=== PATIENT | female | born 1955 | race Caucasian/White ===

== ENCOUNTER → 2017-10-09 15:00 | Outpatient (CLI) | payer MEDICARE, SELFPAY | PROVIDERS: Family Provider Family Medicine; PCP Family Medicine; Visit Provider Family Medicine | DX: R44.3 Hallucinations, unspecified (principal) | CPT/HCPCS: 87086; 87088 ==

== ENCOUNTER → 2017-10-17 13:30 | Outpatient (CLI) | payer MEDICARE, SELFPAY ==
[2017-10-17 15:44] LABS: Absolute Lymphocyte Count 2.21 X10^3/ul (0.83-4.51); Absolute Neutrophil Count 3.6 X10^3/uL (2.0-7.7); Basophil# 0.04 X10^3/uL; Basophil% 0.6 % (0-1); Eosinophil# 0.08 X10^3/uL; Eosinophils% 1.3 % (0-5); Hematocrit 46.1 % (37-47); Hemoglobin 14.7 g/dl (12.0-15.0); Lymphocyte # 2.21 X10^3/ul (4.0); Lymphocyte % 35.2 % (19-41); Mean Corp Hgb Conc 31.9 g/gl (32-36); Mean Corpuscular Hgb 27.5 pg (27.0-32.0); Mean Corpuscular Volume 86.3 fL (81-99); Mean Platelet Vol. 9.9 fl (6.2-12.0); Monocyte# 0.34 X10^3/uL; Monocyte% 5.4 % (0-10); Neutrophil # 3.59 X10^3/uL (2.7-7.7); Neutrophil % 57.2 % (47-70); Platelet Count 170 K/mm3 (150-450); RBC Distribution Width CV 14.2 % (11.6-14.6); RBC Distribution Width SD 44.9 fl (35.1-43.9); Red Blood Count 5.34 M/mm3 (4.2-5.4); White Blood Count 6.3 K/mm3 (4.4-11.0)
[2017-10-17 15:48] LABS: POSITIVE COUNT NO; POSITIVE DIFFERENTIAL NO; POSITIVE MORPHOLOGY NO
[2017-10-17 16:11] LABS: ALB/GLOB Ratio 0.7 RATIO (0.9-2.4); AST(SGOT) 31 U/L (15-37); Alanine Aminotransfer ALT/SGPT 38 U/L (13-56); Albumin, Serum 3.4 g/dL (3.2-5.0); Alkaline Phosphatase 145 U/L (45-117); Anion Gap 8 (5-15); BUN 12 mg/dL (7-18); BUN/Creat Ratio 14.5 RATIO (10-20); Calcium,Total 9.8 mg/dL (8.5-10.1); Chloride 105 mmol/L (98-107); Creatinine, Serum 0.83 mg/dL (0.55-1.02); EST Glomerular Filtration Rate 74 mL/min (>60); Est Glom Filt Rate - Afr Amer 90 mL/min (>60); Globulin 4.7 g/dL (2.2-4.2); Glucose 210 mg/dL (74-106); Magnesium 1.9 mg/dL (1.6-2.6); Potassium 4.6 mmol/L (3.5-5.1); Protein, Total 8.1 g/dL (6.4-8.2); Sodium Level 138 mmol/L (136-145); T4 Free Direct 1.12 ng/dL (0.76-1.46); Thyroid Stim Hormone (TSH) 0.65 uIU/mL (0.358-3.74)
== END ==
PROVIDERS: Family Provider Family Medicine; PCP Family Medicine; Visit Provider Family Medicine
DX: R44.0 Auditory hallucinations (principal); I10 Essential (primary) hypertension; I48.91 Unspecified atrial fibrillation
CPT/HCPCS: 36415; 80053; 83735; 84439; 84443; 85025

== ENCOUNTER → 2018-04-24 14:35 | Outpatient (CLI) | payer MEDICARE, SELFPAY ==
--- NOTE | 2018-04-24 14:30 | RAD_ITS ---
STUDY: X-RAY - FACIAL BONES REASON FOR STUDY: Female, 62 years old. Fall TECHNIQUE: 3 view(s) of the facial bones. COMPARISON: None. FINDINGS: Normal bilateral frontozygomatic and zygomatic-temporal arches. Normal bilateral medial and inferior orbital knox. Normal bilateral orbits. Normal visualized nasal bones. Normal anterior nasal spine. The remaining visualized osseous structures are normal. Normal visualized paranasal sinuses. RAD/Facial Bones min 3 Views IMPRESSION: Normal x-ray examination of the facial bones. Electronically Signed: River Sena MD at 6:59 EDT , Service support ,
== END ==
PROVIDERS: Family Provider Family Medicine; PCP Family Medicine; Referring Provider Family Medicine; Visit Provider Family Medicine
DX: S09.90XA Unspecified injury of head, initial encounter (principal); R51 Headache
CPT/HCPCS: 70150

== ENCOUNTER → 2018-12-30 | Outpatient (CLI) | payer MEDICARE, SELFPAY ==
--- NOTE | 2018-12-30 11:19 | CT_ITS ---
STUDY: CT ABDOMEN AND PELVIS WITHOUT CONTRAST REASON FOR EXAM: Female, 63 years old. Hernia RADIATION DOSAGE (If Supplied By Facility): CTDIvol = ( 24.18 ) mGy, DLP = ( 3878.09 ) mGycm TECHNIQUE: Transaxial images were obtained from the dome of the diaphragm to the symphysis pubis with oral contrast, and without intravenous contrast. Sagittal and coronal images were reconstructed. Individualized dose optimization techniques were used for this CT. COMPARISON: 12/31/2015 FINDINGS: The visualized lung bases are unremarkable. The visualized portions of the heart are within normal limits. Normal liver. Normal gallbladder and extrahepatic biliary system. Normal spleen. Normal pancreas. Normal bilateral adrenal glands. 3.5 cm exophytic cyst lower pole right kidney. Normal left kidney. Normal visualized stomach. Normal small intestine. Suture line in the sigmoid colon. The appendix is visualized and appears normal. Normal abdominal aorta. Normal inferior vena cava. Normal retroperitoneum. Normal urinary bladder. 7 cm hernia of the right side of the anterior abdominal wall through the right rectus abdominis muscle containing loops of small bowel but without bowel dilatation to suggest bowel obstruction. Another 4 cm hernia of the midline in the anterior abdominal wall inferior to the umbilicus containing a loop of small bowel but without bowel obstruction. Normal osseous structures. CT/Abdomen/Pelvis without Cont IMPRESSION: 2 separate hernias of the anterior abdominal wall containing small bowel but without bowel obstruction. Electronically Signed: Chet Pastrana MD at 14:40 EDT Tel , Service support ,
== END | disposition home or self-care (01) ==
PROVIDERS: Family Provider Family Medicine; PCP Family Medicine
DX: K43.9 Ventral hernia without obstruction or gangrene (principal)
CPT/HCPCS: 74176

== ENCOUNTER → 2019-08-06 14:20 | Outpatient (CLI) | payer MEDICARE, SELFPAY ==
[2017-07-22 04:10] VITALS: BMI 39.4
[2019-08-06 15:39] LABS: Absolute Lymphocyte Count 1.61 X10^3/uL (0.83-4.51); Basophil# 0.05 X10^3/uL; Basophil% 0.8 % (0-1); Eosinophils% 1.6 % (0-5); Hematocrit 45.3 % (37-47); Hemoglobin 14.4 g/dL (12.0-15.0); Lymphocyte # 1.61 X10^3/ul (4.0); Lymphocyte % 25.9 % (19-41); Mean Corp Hgb Conc 31.8 g/dL (32-36); Mean Corpuscular Hgb 26.4 pg (27.0-32.0); Mean Corpuscular Volume 83.1 fL (81-99); Monocyte# 0.43 X10^3/uL; Monocyte% 6.9 % (0-10); NRBC Flagged by Analyzer 0 % (0-5); Neutrophil # 3.99 X10^3/uL (2.7-7.7); Neutrophil % 64.3 % (47-70); Platelet Count 182 K/mm3 (150-450); RBC Distribution Width CV 14.7 % (11.6-14.6); RBC Distribution Width SD 44.5 fl (35.1-43.9); Red Blood Count 5.45 M/mm3 (4.2-5.4); White Blood Count 6.2 K/mm3 (4.4-11.0)
[2019-08-06 17:07] LABS: ALB/GLOB Ratio 0.8 RATIO (0.9-2.4); AST(SGOT) 20 U/L (15-37); Alanine Aminotransfer ALT/SGPT 38 U/L (13-56); Albumin, Serum 3.3 g/dL (3.2-5.0); Alkaline Phosphatase 128 U/L (45-117); Anion Gap 7 (5-15); BUN 11 mg/dL (7-18); Calcium,Total 10.4 mg/dL (8.5-10.1); Chloride 105 mmol/L (98-107); Creatinine, Serum 0.85 mg/dL (0.55-1.02); EST Glomerular Filtration Rate 72 mL/min (>60); Est Glom Filt Rate - Afr Amer 87 mL/min (>60); Globulin 4.4 g/dL (2.2-4.2); Glucose 336 mg/dL (74-106); Potassium 4.4 mmol/L (3.5-5.1); Protein, Total 7.7 g/dL (6.4-8.2); Sodium Level 137 mmol/L (136-145); T4 Free Direct 1.22 ng/dL (0.76-1.46); Thyroid Stim Hormone (TSH) 0.67 uIU/mL (0.358-3.74)
== END ==
PROVIDERS: Family Provider Family Medicine; PCP Family Medicine; Visit Provider Family Medicine
DX: I10 Essential (primary) hypertension (principal); E11.65 Type 2 diabetes mellitus with hyperglycemia
CPT/HCPCS: 36415; 80053; 84439; 84443; 85025

== ENCOUNTER 2020-06-06 17:36 | Emergency (ER) | payer MEDICARE, SELFPAY ==
[2020-06-06 17:39] VITALS: BP 137/73; PULSE 94; RESP 18; TEMP 36.6; O2SAT 98; BMI 39.1
[2020-06-06 17:42] VITALS: BP 137/73; PULSE 94; RESP 18; TEMP 36.6; O2SAT 98
--- NOTE | 2020-06-06 17:54 | ED.DCSUM_ITS ---
History of Present Illness Chief Complaint: General Illness Informant: Patient Onset: Days Context: Sudden Onset Timing: Continuous Quality: Nasal symptoms, sore throat and cough Location: Upper respiratory Current Severity: Mild Maximum Severity: Moderate Worsened by: Activity Relieved by: Nothing Associated Symptoms: Loss of taste and smell today Narrative: Patient 64-year-old woman with multiple medical problems who presents with upper respiratory symptoms started this past Sunday. She presents because she aches all over. She states she lost her taste and smell today. She does report intermittent global headache. Denies photophobia, neck pain or neck stiffness. She does report rhinorrhea, congestion postnasal drainage. Denies sore throat. She denies ear pain, decreased hearing or ears. She denies chest pain. She denies abdominal pain, nausea, vomiting diarrhea. She denies dysuria, frequency, urgency or hematuria. She denies rash. She denies paresthesia, anesthesia motors. Denies problems with her balance. Is not a good informant. Prior similar symptoms: No Recent Illness/Hospitalization: No - Past Medical History (1) Obstructive sleep apnea Status: Acute (2) Atrial fibrillation Status: Chronic Comment: started eliquis 10/23 (3) Diabetes mellitus Status: Chronic (4) Embolic stroke Status: Chronic (5) GERD (gastroesophageal reflux disease) Status: Chronic (6) Hyperlipidemia Status: Chronic (7) Hypertension Status: Chronic (8) Intraventricular hemorrhage Status: Chronic (9) Obesity (BMI 30-39.9) Status: Chronic Past Medical History - Allergies and Home Meds Allergies/Adverse Reactions: Allergies iodine Allergy (Mild, Verified 07/22/17 04:09) Itching Penicillins Allergy (Mild, Verified 07/22/17 04:09) Itching Primary Care Physician: Nathaniel Gaines MD [Primary Care Provider] - Prior records reviewed: Yes Surgical History: - - Radical excision and drainage necrotizing soft tissue infection abscess abdominal wall including left external oblique muscle and fascia (1075 cm2) 10/30/14, I+D wounds/Debridement non-healing wounds. Lives: Alone Smoking Status: Never smoker Alcohol: None Drugs: None - Family History Maternal Family History: Reports: No pertinent history, - - Unknown if this had a stroke Paternal Family History: Reports: No pertinent history, - - Unknown if had a stroke Review of Systems General: Reports: Malaise. Denies: Chills, Fever, Subjective, Sweats Eyes: Denies: Visual changes - bilaterally, Blurred Vision - bilaterally ENT: Reports: Rhinorrhea. Denies: Bilateral ear pain, Sore throat Cardiovascular: Denies: Chest pain, Palpitations, Heart racing Respiratory: Reports: Dyspnea, Cough, Dyspnea on exertion. Denies: Sputum, Orthopnea Gastrointestinal: Denies: Abdominal pain, Nausea, Vomiting, Diarrhea, Melena, Hematochezia Genitourinary: Denies: Dysuria, Hematuria, Frequency Musculoskeletal: Reports: Myalgias, Arthralgias. Denies: Neck pain, Back pain, Swelling, Extremity Pain Skin: Denies: Rash, Wounds Neurological: Reports: Headache, Weakness. Denies: Parasthesia, Numbness Endocrine: Denies: Polyuria, Polydipsia Hematologic: Denies: Easy bruising Physical Exam Vital Signs/Narrative: Vital Signs Temp Pulse Resp BP Pulse Ox 06/06/20 17:42 97.9 F 94 18 137/73 H 98 06/06/20 17:39 97.9 F 94 18 137/73 H 98 Inital Vital Signs reviewed: Yes General: Well nourished, Well developed, Obese, No Acute Distress Head: Normocephalic, Atraumatic Eyes: Perrl, EOMI. Negative for: Pale conjunctiva, Scleral icterus ENT: TM's clear, Dry mucous membranes, Nasal congestion. Negative for: No rhinorrhea, Sinus tenderness Neck: Supple, Nontender, No lymphadenopathy, No JVD Cardiovascular: Regular rate, Regular rhythm, No murmurs, Normal S1, Normal S2 Respiratory: Rales - Rales left lower lobe posteriorly, Wheezing - Wheezing right lower lobe posteriorly Abdomen: Soft, Nontender, Nondistended, Normal bowel sounds, No masses Rectal: Deferred Back: Nontender, Normal Inspection Extremities: Nontender, No edema. Negative for: Tenderness, Edema Skin: Normal color, No rash, No Trauma. Negative for: Cyanosis, Diaphoresis, Jaundice Neurological: Alert, Oriented x3, Cranial nerves II-XII grossly intact, Normal Strength, Normal Sensation Psychological: Normal affect Diagnostic/Tx/Re-eval Chest X-Ray - ED: 1 View, Read by ED Physician, Normal, Heart, Lungs, Mediastinum, Bony Structures, Chronic Changes, - - Single view portable chest x- ray was obtained. The film is rotated. There is no evidence of infiltrate, effusion or pneumothorax. 06/06/20 18:15 Chest 1 View (Portable) [RAD] Stat Laboratory Results 06/06/20 06/06/20 06/06/20 17:43 17:43 18:09 WBC 6.6 RBC 5.55 H Hgb 14.6 Hct 46.6 MCV 84.0 MCH 26.3 L MCHC 31.3 L RDW Std Deviation 45.2 H RDW Coeff of Faby 14.8 H Plt Count 194 MPV 9.8 Immature Gran % (Auto) 0.500 Neut % (Auto) 68.2 Lymph % (Auto) 20.4 [place] % (Auto) 9.3 Eos % (Auto) 0.8 Baso % (Auto) 0.8 Absolute Neuts (auto) 4.5 Absolute Lymphs (auto) 1.34 Nucleated RBC % 0 Sodium 136 Potassium 4.1 Chloride 101 Carbon Dioxide 31.0 Anion Gap 4 L BUN 10 Creatinine 0.91 Estim Creat Clear Calc 59.94 Est GFR (MDRD) Af Amer 80 Est GFR (MDRD) Non-Af 66 BUN/Creatinine Ratio 11.0 Glucose 386 H Calcium 10.0 POC Glucose 370 H Blood sugar is elevated. This is due to infection. Patient was diagnosed with Covid since she has upper respiratory symptoms with loss of taste or smell. The test may be negative however patient has clinical presentation of Covid and will be diagnosed with Covid. - Medical Decision Making Since patient has no medical problems CBC was obtained to assess white count to rule out anemia and determine if she is neutropenic. Patient metabolic panel to assess renal function, electrolytes and blood sugar since she has history of diabetes and multiple medical problems. Chest x-ray to evaluate for pneumonia. With loss of taste and smell and upper respiratory symptoms suspect patient has Covid. Covid test was obtained. Will treat for Covid. ED Disposition - Plan for ED Patient: Disposition: Home or Assisted Living Diagnosis: COVID-19 virus infection, Hyperglycemia due to type 2 diabetes mellitus Instructions: ED Diabetic Hyperglycemia, ED Viral Syndrome Referrals: Nathaniel Gaines MD [Primary Care Provider] - As Needed Additional Instructions: 1. Your clinical presentation is consistent with the Covid virus infection. 2. You need to self quarantine. 3. If your breathing becomes worse or you are unable to walk from room to room return to the emergency department. 4. You may be sick for another 7 to 14 days. 5. Your blood sugar is elevated due to your illness.
[2020-06-06 18:07] VITALS: BP 142/57; PULSE 89; RESP 18; TEMP 36.8; O2SAT 98; O2SAT 99
[2020-06-06] MEDS: Acetaminophen 325 MG Tablet 650 MG PO (18:12)
[2020-06-06 18:15] LABS: Bedside Glucose 370 mg/dL (70-110)
--- NOTE | 2020-06-06 18:15 | RAD_ITS ---
STUDY: X-RAY CHEST REASON FOR EXAM: Female, 64 years old. rales left base, wheezing right base, body aches, weakness TECHNIQUE: AP COMPARISON: 10/08/2016 FINDINGS: EKG leads project over the chest. Asymmetric interstitial prominence of the left more than right lung but also involving the right lung base. No sizable effusion. There is mild cardiac enlargement. Normal mediastinum and joselin. Normal visualized pulmonary arteries. Normal visualized aortic arch and descending thoracic aorta. No acute bony process. There is no demonstrated abnormality of the visualized soft tissue structures of the upper abdomen. RAD/Chest 1 View (Portable) IMPRESSION: 1. Left more than right interstitial thickening may suggest fluid overload/edema. Electronically Signed: Silverio Lee MD ([place]) at 18:48 EST , Service support ,
[2020-06-06 18:21] LABS: Absolute Lymphocyte Count 1.34 X10^3/uL (0.83-4.51); Absolute Neutrophil Count 4.5 X10^3/uL (2.0-7.7); Basophil# 0.05 X10^3/uL; Basophil% 0.8 % (0-1); Eosinophil# 0.05 X10^3/uL; Eosinophils% 0.8 % (0-5); Hematocrit 46.6 % (37-47); Hemoglobin 14.6 g/dL (12.0-15.0); Lymphocyte # 1.34 X10^3/ul (4.0); Lymphocyte % 20.4 % (19-41); Mean Corp Hgb Conc 31.3 g/dL (32-36); Mean Corpuscular Hgb 26.3 pg (27.0-32.0); Mean Platelet Vol. 9.8 fl (6.2-12.0); Monocyte# 0.61 X10^3/uL; Monocyte% 9.3 % (0-10); NRBC Flagged by Analyzer 0 % (0-5); Neutrophil % 68.2 % (47-70); Platelet Count 194 K/mm3 (150-450); RBC Distribution Width CV 14.8 % (11.6-14.6); RBC Distribution Width SD 45.2 fl (35.1-43.9); Red Blood Count 5.55 M/mm3 (4.2-5.4); White Blood Count 6.6 K/mm3 (4.4-11.0)
[2020-06-06 18:26] LABS: Anion Gap 4 (5-15); BUN 10 mg/dL (7-18); Chloride 101 mmol/L (98-107); Creatinine, Serum 0.91 mg/dL (0.55-1.02); EST Glomerular Filtration Rate 66 mL/min (>60); Est Glom Filt Rate - Afr Amer 80 mL/min (>60); Estimated Creatinine Clearance 59.94 ml/min; Glucose 386 mg/dL (74-106); Potassium 4.1 mmol/L (3.5-5.1); Sodium Level 136 mmol/L (136-145)
[2020-06-06] MEDS: Insulin Lispro 100 UNIT/ML INSULN.PEN 8 UNIT SC (19:00)
[2020-06-06 19:02] VITALS: BP 157/98; PULSE 97; RESP 20; O2SAT 98
== END 2020-06-06 19:45 | disposition home or self-care (01) ==
PROVIDERS: Emergency Provider Emergency Medicine; PCP Family Medicine
DX: U07.1 COVID-19 (principal); E11.65 Type 2 diabetes mellitus with hyperglycemia; I10 Essential (primary) hypertension; E66.9 Obesity, unspecified; I48.91 Unspecified atrial fibrillation; K21.9 Gastro-esophageal reflux disease without esophagitis; E78.5 Hyperlipidemia, unspecified; G47.33 Obstructive sleep apnea (adult) (pediatric); Z86.73 Personal history of transient ischemic attack (TIA), and cerebral infarction without residual deficits; Z79.01 Long term (current) use of anticoagulants; Z79.84 Long term (current) use of oral hypoglycemic drugs; Z79.899 Other long term (current) drug therapy
CPT/HCPCS: 71045; 80048; 82962; 85025; 87635; 93005; 96372; 99285; U0003

== ENCOUNTER 2020-08-03 14:30 | Inpatient (IN) | payer MEDICARE, MEDICAID, SELFPAY ==
[2020-08-03] VITALS (8 sets, daily range): BP systolic 118–156; BP diastolic 50–92; PULSE 87–122; RESP 16–24; TEMP 36.3–37.5; O2SAT 92–96; BMI 38.2; BMI 38.3; BMI 35.5
--- NOTE | 2020-08-03 14:45 | CT_ITS ---
STUDY: CT ABDOMEN AND PELVIS WITHOUT CONTRAST REASON FOR EXAM: Female, 64 years old. AB PAIN WITH NAUSEA AND VOMITING. PRIOR COLOSTOMY WITH REVERSAL. JUAN/BSO RADIATION DOSAGE (If Supplied By Facility): CTDIvol = ( 14.80 ) mGy, DLP = ( 726.05 ) mGycm TECHNIQUE: Transaxial images were obtained from the dome of the diaphragm to the symphysis pubis without oral contrast, and without intravenous contrast. Sagittal and coronal images were reconstructed. Individualized dose optimization techniques were used for this CT. COMPARISON: Comparison is made with prior study dated 12/30/2018. FINDINGS: The visualized lung bases are unremarkable. Small benign-appearing bilateral axillary lymph nodes. Coronary artery calcification. Normal liver. Normal gallbladder and extrahepatic biliary system. Normal spleen. Normal pancreas. Normal bilateral adrenal glands. Stable 3.5 [place]''s cyst in the lower pole of the right kidney. Normal left kidney. There is a small hiatal hernia. The stomach is fluid distended. There appears to be thickening of the gastric outlet. There are dilated loops of the small intestine with a non-distended colon consistent with a small bowel obstruction. The distal small bowel obstruction is due to a herniation through the ventral abdominal wall defect in the lower right lower abdomen. There are multiple colonic diverticula consistent with diverticulosis. Surgical anastomosis seen at the rectosigmoid junction. There is non-visualization of the appendix. Normal abdominal aorta. Normal inferior vena cava. Normal retroperitoneum. Normal urinary bladder. There is absence of the uterus consistent with a prior hysterectomy. Normal abdominal wall. There are diffuse degenerative changes of the visualized lumbar spine. CT/Abdomen/Pelvis without Cont IMPRESSION: Small bowel obstruction due to a ventral wall hernia in the lower right anterior abdominal wall. Fluid distention of the stomach. Electronically Signed: Yonas Stroud, at 15:46 EST , Service support ,
--- NOTE | 2020-08-03 14:46 | ED.VIS.GEN ---
History of Present Illness Chief Complaint: Abd Pain Informant: Patient Narrative: 64-year-old male presenting with generalized abdominal pain with increased abdominal pain in the left lower quadrant. She states she had episodes of associated nausea and vomiting. She is not had a fever. Patient states that she has had a hernia repair on the right side of her abdomen. She is also had some unknown surgery in her left lower quadrant. Patient denies urinary complaints. She denied constipation or diarrhea. - Past Medical History (1) Obstructive sleep apnea Status: Chronic (2) Atrial fibrillation Status: Chronic Comment: started eliquis 10/23 (3) Diabetes mellitus Status: Chronic (4) Embolic stroke Status: Chronic (5) GERD (gastroesophageal reflux disease) Status: Chronic (6) Hyperlipidemia Status: Chronic (7) Hypertension Status: Chronic (8) Intraventricular hemorrhage Status: Chronic Past Medical History - Allergies and Home Meds Allergies/Adverse Reactions: Allergies iodine Allergy (Mild, Verified 08/03/20 14:30) Itching Penicillins Allergy (Mild, Verified 08/03/20 14:30) Itching Primary Care Physician: Nathaniel Gaines MD [Primary Care Provider] - Prior records reviewed: Yes Past Medical History: - - Reviewed in problem list Surgical History: - - Radical excision and drainage necrotizing soft tissue infection abscess abdominal wall including left external oblique muscle and fascia (1075 cm2) 10/30/14, I+D wounds/Debridement non-healing wounds. Lives: Alone Smoking Status: Former smoker Alcohol: None Drugs: None - Family History Maternal Family History: Reports: No pertinent history, - - Unknown if this had a stroke Paternal Family History: Reports: No pertinent history, - - Unknown if had a stroke Review of Systems General: Denies: Chills, Fever, Sweats Eyes: Denies: Visual changes - bilaterally, Diplopia ENT: Denies: Rhinorrhea, Sore throat Cardiovascular: Denies: Chest pain, Palpitations Respiratory: Denies: Dyspnea, Cough, Dyspnea on exertion Gastrointestinal: Reports: Abdominal pain, Nausea, Vomiting. Denies: Diarrhea, Constipation Genitourinary: Denies: Dysuria, Hematuria Musculoskeletal: Denies: Myalgias, Arthralgias Skin: Denies: Rash, Abscess Neurological: Denies: Headache, Parasthesia, Numbness Psych: Denies: Depression, Anxiety Endocrine: Denies: Polyuria, Polydipsia Physical Exam Vital Signs/Narrative: Vital Signs Temp Pulse Resp BP Pulse Ox 08/03/20 14:35 120 H 08/03/20 14:31 98.0 F 118 H 16 127/68 H 94 General: Obese, Acute Distress Head: Normocephalic, Atraumatic Eyes: Perrl, EOMI. Negative for: Pale conjunctiva, Scleral icterus ENT: Moist mucous membranes, No rhinorrhea Cardiovascular: Regular rate, Regular rhythm Respiratory: No distress, CTA bilaterally Abdomen: Soft, Tender - Generalized tenderness with focus of increased tenderness in the left lower quadrant.. Negative for: No masses, Guarding Back: Nontender, Normal Inspection Extremities: Nontender, No edema Skin: Normal color, No rash. Negative for: Cyanosis, Diaphoresis Neurological: Alert, Oriented x3, Cranial nerves II-XII grossly intact Psychological: Normal affect, Normal Mood Diagnostic/Tx/Re-eval Clinical Impression(s) from Imaging Studies Abdomen/Pelvis CT 08/03/20 14:45 IMPRESSION: Small bowel obstruction due to a ventral wall hernia in the lower right anterior abdominal wall. Fluid distention of the stomach. Electronically Signed: Yonas Stroud, at 15:46 EST , Service support , KUB X-Ray 08/03/20 16:20 IMPRESSION: Gastric tube in the proximal stomach, side-port in the distal esophagus. If placement into the gastric antrum is desired advancement by 40 cm is appropriate. Electronically Signed: Kelley Delong, at 16:41 EST Tel , Service support , Laboratory Data 08/03/20 08/03/20 08/03/20 14:53 14:53 15:45 WBC 15.3 H RBC 6.15 H Hgb 16.2 H Hct 50.0 H MCV 81.3 MCH 26.3 L MCHC 32.4 RDW Std Deviation 43.6 RDW Coeff of Faby 15.2 H Plt Count 248 MPV 9.7 Immature Gran % (Auto) 0.500 Neut % (Auto) 89.4 H Lymph % (Auto) 5.1 L [place] % (Auto) 4.6 Eos % (Auto) 0.1 Baso % (Auto) 0.3 Absolute Neuts (auto) 13.7 H Absolute Lymphs (auto) 0.78 L Nucleated RBC % 0 Sodium 134 L Potassium 5.3 H Chloride 98 Carbon Dioxide 29.0 Anion Gap 7 BUN 20 H Creatinine 1.15 H Estim Creat Clear Calc 45.66 Est GFR (MDRD) Af Amer 61 Est GFR (MDRD) Non-Af 50 L BUN/Creatinine Ratio 17.4 Glucose 358 H Calcium 10.4 H Total Bilirubin 0.80 AST 39 H ALT 41 Alkaline Phosphatase 140 H Total Protein 8.7 H Albumin 3.5 Globulin 5.2 H Albumin/Globulin Ratio 0.7 L Lipase 195 Urine Color [place] Urine Clarity Sl. Cloudy Urine pH 5.0 Ur Specific [place] 1.030 Urine Protein 100 H Urine Glucose (UA) 250 H Urine Ketones 5 H Urine Occult Blood Negative Urine Nitrite Negative Urine Bilirubin 3 H Urine Urobilinogen 4 H Ur Leukocyte Esterase 25 H Urine RBC 0 SEEN Urine WBC 0-5 SEEN Ur Squamous Epith Cells 0-5 SEEN Amorphous Sediment 1+ URATE Urine Bacteria 0 SEEN Hyaline Casts 25-50 SEEN Urine Mucus 0 SEEN - Medical Decision Making She presents with bilateral flank pain he states this is an ongoing issue for the last 3 months currently. It does come and go. He states he was seen in urgent care prior to arrival and told he had a temperature of 101 however when he got here he did not have a fever. He has not had a known fever at home. He has no cough, shortness of breath, chest pain. He states that his urine is dark and that is his main concern. He does also have a sensation of polyuria and polydipsia. Lab work today shows a leukocytosis of 20,000. Patient found to have a UTI as well as a 4 mm left ureteral stone with hydronephrosis. Patient was given a gram of Rocephin and urine culture was sent. He was also given IV fluids. Patient will be signed out to incoming ED doc who will discuss with Dr. Robles in regards to whether he should be admitted or discharge. If patient is discharged she will be treated as pyelonephritis with Keflex. Impression: 1. UTI 2. Ureteral stone 4 mm ED Disposition - Plan for ED Patient: Referrals: Nathaniel Gaines MD [Primary Care Provider] -
[2020-08-03 15:09] LABS: Absolute Lymphocyte Count 0.78 X10^3/uL (0.83-4.51); Absolute Neutrophil Count 13.7 X10^3/uL (2.0-7.7); Basophil# 0.04 X10^3/uL; Basophil% 0.3 % (0-1); Eosinophil# 0.01 X10^3/uL; Eosinophils% 0.1 % (0-5); Hemoglobin 16.2 g/dL (12.0-15.0); Lymphocyte # 0.78 X10^3/ul (4.0); Lymphocyte % 5.1 % (19-41); Mean Corp Hgb Conc 32.4 g/dL (32-36); Mean Corpuscular Hgb 26.3 pg (27.0-32.0); Mean Corpuscular Volume 81.3 fL (81-99); Mean Platelet Vol. 9.7 fl (6.2-12.0); Monocyte# 0.71 X10^3/uL; Monocyte% 4.6 % (0-10); NRBC Flagged by Analyzer 0 % (0-5); Neutrophil # 13.69 X10^3/uL (2.7-7.7); Neutrophil % 89.4 % (47-70); Platelet Count 248 K/mm3 (150-450); RBC Distribution Width CV 15.2 % (11.6-14.6); RBC Distribution Width SD 43.6 fl (35.1-43.9); Red Blood Count 6.15 M/mm3 (4.2-5.4); White Blood Count 15.3 K/mm3 (4.4-11.0)
[2020-08-03] MEDS: 0.9% Normal Saline 1,000 ML 1000 ML IV (15:16)
[2020-08-03] MEDS: Ondansetron 4 MG/2 ML Vial IV ×2 (15:17→16:23)
[2020-08-03] MEDS: Morphine 4 MG/ML Syringe IV ×2 (15:17→17:03)
[2020-08-03 15:25] LABS: ALB/GLOB Ratio 0.7 RATIO (0.9-2.4); AST(SGOT) 39 U/L (15-37); Alanine Aminotransfer ALT/SGPT 41 U/L (13-56); Albumin, Serum 3.5 g/dL (3.2-5.0); Alkaline Phosphatase 140 U/L (45-117); Anion Gap 7 (5-15); BUN 20 mg/dL (7-18); BUN/Creat Ratio 17.4 RATIO (10-20); Calcium,Total 10.4 mg/dL (8.5-10.1); Chloride 98 mmol/L (98-107); Creatinine, Serum 1.15 mg/dL (0.55-1.02); EST Glomerular Filtration Rate 50 mL/min (>60); Est Glom Filt Rate - Afr Amer 61 mL/min (>60); Estimated Creatinine Clearance 45.66 ml/min; Globulin 5.2 g/dL (2.2-4.2); Glucose 358 mg/dL (74-106); Lipase 195 U/L (73-393); Potassium 5.3 mmol/L (3.5-5.1); Protein, Total 8.7 g/dL (6.4-8.2); Sodium Level 134 mmol/L (136-145)
[2020-08-03 15:58] LABS: Bacteria 0 SEEN /hpf (None Seen); Mucous, Urine 0 SEEN /hpf (<or=2+); Red Blood Cells-Urine 0 SEEN /hpf (0-5)
--- NOTE | 2020-08-03 16:03 | NURSING ---
DR ROME PAGED
[2020-08-03 16:15] LABS: Color, Urine Amber (Yellow); Glucose, Dipstick 250 mg/dl (Normal); Ketone-Dipstick 5 mg/dl (Negative); Leukocyte Esterase-Dipstick 25 /ul (Negative); Nitrite-Dipstick Negative (Negative); Occult Blood-Urine Negative /ul (Negative); Protein-Dipstick 100 mg/dl (Negative); Urine Clarity Sl. Cloudy (Clear); Urine Urobilinogen 4 mg/dl (Normal)
[2020-08-03 16:18] LABS: Urine Bilirubin Dipstick 3 mg/dL (Negative)
[2020-08-03 16:20] LABS: Amorphous Sediment 1+ URATE; Hyaline Cast 25-50 SEEN /lpf (0-5); Squamous Epithelial Cells - UA 0-5 SEEN /hpf (5-10); White Blood Cells 0-5 SEEN /hpf (0-5)
--- NOTE | 2020-08-03 16:20 | RAD_ITS ---
STUDY: X-RAY - ABDOMEN/PELVIS REASON FOR EXAM: Female, 64 years old. NG placement TECHNIQUE: Frontal view of the upper abdomen COMPARISON: None. FINDINGS: Gastric tube is present with its tip likely entering the stomach and side-port in the distal esophagus. There is no gas under the diaphragms. RAD/Abdomen Single View (Portable) IMPRESSION: Gastric tube in the proximal stomach, side-port in the distal esophagus. If placement into the gastric antrum is desired advancement by 40 cm is appropriate. Electronically Signed: Kelley Delong, at 16:41 EST Tel , Service support ,
--- NOTE | 2020-08-03 16:25 | ED.RN ---
15 F SALEM/SUMP OG PLACED INTO LEFT NARES, PLACEMENT VERIFIED BY AUSCULTATION OF AIR BOLUS AND ASPIRATION OF GASTRIC CONTENTS. PLACED ON LOW INTERMITTENT SUCTION. PT TOLERATED WELL. RADIOLOGY AWARE OF PLACEMENT FILM.
[2020-08-03] MEDS: proMETHazine 25 MG/ML Syringe 12.5 MG IV (17:03)
--- NOTE | 2020-08-03 17:17 | ED.RN ---
NG TUBE ADVANCED [address] LOZANO'S REQUEST.
--- NOTE | 2020-08-03 17:35 | PCM.CONS.GEN ---
Reason for Consult Date of Consultation: 08/03/20 History of Present Illness: The patient is a 64 year old F presents to the ER due to abdominal pain starting last night. Patient did have nausea and vomiting currently rates her pain a 10/10. Patient has had multiple abdominal surgeries according to incisions on her abdomen however patient is unable to say what was done or where was done. Patient is a poor historian. Patient is able to tell me that she did take her Eliquis this morning. Patient CT abdomen pelvis does show a ventral hernia containing bowel which is a transition point. However this hernia was also seen on previous CAT scan from May 2019 that time contrast did make it through-while the bowel was still in the hernia, this appears to be chronic. Patient got about a liter out of her NG after placement in the ER and patient did have nausea and vomiting with initial pressure to the abdomen. Patient's rapid Covid was negative Past Medical History Past Medical History (Chronic Problems): Chronic Problems Obstructive sleep apnea (Chronic) Diabetes mellitus (Chronic) Hypertension (Chronic) Hyperlipidemia (Chronic) Obesity (BMI 30-39.9) (Chronic) GERD (gastroesophageal reflux disease) (Chronic) Embolic stroke (Chronic) Intraventricular hemorrhage (Chronic) Atrial fibrillation (Chronic) started eliquis 10/23 Allergies iodine Allergy (Mild, Verified 08/03/20 14:30) Itching Penicillins Allergy (Mild, Verified 08/03/20 14:30) Itching Home Medications: Ambulatory Orders Medication Instructions Recorded Omeprazole [Prilosec] 20 mg PO DAILY 05/29/14 Amlodipine Besylate [Norvasc] 10 mg PO DAILY 10/04/16 Apixaban [Eliquis] 5 mg PO BID 10/04/16 Atorvastatin Calcium [Lipitor] 80 mg PO QHS tablet 10/25/16 Lisinopril [Zestril] 40 mg PO DAILY tablet 10/25/16 glipiZIDE [Glucotrol] 10 mg PO BID 08/03/20 metFORMIN HCl [Glucophage] 1,000 mg PO BIDCM 08/03/20 Surgical History: - - Radical excision and drainage necrotizing soft tissue infection abscess abdominal wall including left external oblique muscle and fascia (1075 cm2) 10/30/14, I+D wounds/Debridement non-healing wounds. Psychiatric History: No pertinent psych hx DESIGN VERIFICATION ENGINEER History: No pertinent DESIGN VERIFICATION ENGINEER history Lives: Alone Smoking Status: Former smoker Alcohol: None Drugs: None - *Family History Maternal History Items: No pertinent history, - - Unknown if this had a stroke Paternal History Items: No pertinent history, - - Unknown if had a stroke - Physical Exam Vitals/I&O's: Vital Signs Temp Pulse Resp BP Pulse Ox 98.0 F 120 H 16 127/68 H 94 08/03/20 14:31 08/03/20 14:35 08/03/20 14:31 08/03/20 14:31 08/03/20 14:31 Oxygen Delivery Method Room Air Weight: 236 lb 15.951 oz Body Mass Index (BMI) 38.2 Finger Stick Blood Glucose 370 Intake and Output for Last 24 Hours 08/01/20 08/02/20 08/03/20 23:59 23:59 23:59 Output Total 700 / 700 Balance -700 / -700 General: No apparent distress, - - Patient is resting comfortably HEENT: - - NG in place Lungs: Normal air movement Cardiovascular: Regular rate Abdomen: Soft, Non-Distended, Obese, Tender - Voluntary guarding, no rebound tender near umbilicus at hernia., Hernia - Incisional hernia near umbilicus, incarcerated (question if chronic), - - Previous midline incision also large incision on the left lower abdomen/upper thigh, subcostal incision?all well-healed. Extremities: No clubbing, No cyanosis Laboratory Results 08/03/20 14:53: WBC 15.3 H, RBC 6.15 H, Hgb 16.2 H, Hct 50.0 H, MCV 81.3, MCH 26.3 L, MCHC 32.4, RDW Std Deviation 43.6, RDW Coeff of Faby 15.2 H, Plt Count 248, MPV 9.7, Immature Gran % (Auto) 0.500, Neut % (Auto) 89.4 H, Lymph % (Auto) 5.1 L, Wirt % (Auto) 4.6, Eos % (Auto) 0.1, Baso % (Auto) 0.3, Absolute Neuts (auto) 13.7 H, Absolute Lymphs (auto) 0.78 L, Nucleated RBC % 0 08/03/20 14:53: Sodium 134 L, Potassium 5.3 H, Chloride 98, Carbon Dioxide 29.0, Anion Gap 7, BUN 20 H, Creatinine 1.15 H, Estim Creat Clear Calc 45.66, Est GFR (MDRD) Af Amer 61, Est GFR (MDRD) Non-Af 50 L, BUN/Creatinine Ratio 17.4, Glucose 358 H, Calcium 10.4 H, Total Bilirubin 0.80, AST 39 H, ALT 41, Alkaline Phosphatase 140 H, Total Protein 8.7 H, Albumin 3.5, Globulin 5.2 H, Albumin/Globulin Ratio 0.7 L, Lipase 195 08/03/20 15:45: Urine Color Licha, Urine Clarity Sl. Cloudy, Urine pH 5.0, Ur Specific [place] 1.030, Urine Protein 100 H, Urine Glucose (UA) 250 H, Urine Ketones 5 H, Urine Occult Blood Negative, Urine Nitrite Negative, Urine Bilirubin 3 H, Urine Urobilinogen 4 H, Ur Leukocyte Esterase 25 H, Urine RBC 0 SEEN, Urine WBC 0-5 SEEN, Ur Squamous Epith Cells 0-5 SEEN, Amorphous Sediment 1+ URATE, Urine Bacteria 0 SEEN, Hyaline Casts 25-50 SEEN, Urine Mucus 0 SEEN Current Medications Sodium Chloride () 1,000 mls @ 999 mls/hr IV .Q1H1M ONE Stop: 08/03/20 18:20 Assessment/Plan All Active Problems Diverticular disease of intestine with perforation and abscess (Resolved) Left flank pain (Resolved) Necrotizing soft tissue infection (Resolved) Nonhealing skin ulcer (Resolved) Pyelonephritis (Resolved) 64-year-old female with small bowel obstruction, ventral hernia 1. N.p.o./IV fluids/NG. Will check stat lactic acid as well as CBC unsure if the elevated white blood cell count is due to bowel versus nausea and vomiting. Patient did take her Eliquis this morning. 2. Ventral hernia this is chronic in nature as she has a CT scan from May 2019 which shows small bowel as well as contrast moving through the small bowel. Currently unable to reduce at bedside as patient unable to tolerate. Asked patient if she would want surgery if she needed it patient was agreeable. Did discuss with patient that if there is any issues with getting her extubated she could possibly be on the ventilator initially after surgery. Did discuss CODE STATUS with the patient patient agreed to resuscitation including CPR and intubation however patient also told me during the discussion that she is not going to and that she was tired-and patient had to be redirected to the questions. Addendum: Patient's lactic acid is 1.6 however a blood count is still elevated at 16 from 15. We will plan for exploratory laparotomy, repair of ventral hernia, possible bowel resection as I cannot assure the there is no issue with bowel viability in the hernia. Discussed procedure including risk but not limited to bleeding?which is higher due to patient on Eliquis, infection, recurrent hernia, injury to another organ small bowel, and anesthesia. Since initial potassium was 5.3 but it was hemolyzed recheck was 5.6 not hemolyzed per lab, patient's creatinine was only barely elevated and patient did receive 2 L of normal saline in the ER. Patient does require succinylcholine for intubation we will plan to recheck potassium after surgery. An Shah M.D. Pager: [phone] [facility] [address] [place] [address], [address] [place] [address] Office: [phone]
--- NOTE | 2020-08-03 17:42 | NURSING ---
MED SURG [facility] S[facility], VENTRAL HERNIA
--- NOTE | 2020-08-03 17:46 | PCM.HP.STD ---
<Faye Horner ACETYLENE PLANT OPERATOR - Last Filed: 08/03/20 18:03> Problem List (1) Obstructive sleep apnea Status: Chronic (2) Diabetes mellitus Status: Chronic (3) Hypertension Status: Chronic (4) Hyperlipidemia Status: Chronic (5) Obesity (BMI 30-39.9) Status: Chronic (6) GERD (gastroesophageal reflux disease) Status: Chronic (7) Embolic stroke Status: Chronic (8) Intraventricular hemorrhage Status: Chronic (9) Atrial fibrillation Status: Chronic Comment: started eliquis 10/23 History of Present Illness Date of Admission: 08/03/20 Chief Complaint: Abdominal pain, nausea, vomiting. The patient is a 64 year old F who presents to the emergency room due to abdominal pain, nausea, vomiting. HPI in ER difficult as patient drowsy following pain medication. She does state her abdominal pain is in the middle of her abdomen and reports nausea and vomiting which began last night. She denies diarrhea, constipation. She reports history of abdominal surgery however unable to state what surgery she had done except that she had it in [place]. She has a past medical history of CVA, type 2 diabetes mellitus, hypertension, hyperlipidemia, paroxysmal atrial fibrillation, GERD, obesity, FLOR. Past Medical History Past Medical History (Chronic Problems): Chronic Problems Obstructive sleep apnea (Chronic) Diabetes mellitus (Chronic) Hypertension (Chronic) Hyperlipidemia (Chronic) Obesity (BMI 30-39.9) (Chronic) GERD (gastroesophageal reflux disease) (Chronic) Embolic stroke (Chronic) Intraventricular hemorrhage (Chronic) Atrial fibrillation (Chronic) started eliquis 10/23 Allergies iodine Allergy (Mild, Verified 08/03/20 14:30) Itching Penicillins Allergy (Mild, Verified 08/03/20 14:30) Itching Home Medications: Ambulatory Orders Medication Instructions Recorded Omeprazole [Prilosec] 20 mg PO DAILY 05/29/14 Amlodipine Besylate [Norvasc] 10 mg PO DAILY 10/04/16 Apixaban [Eliquis] 5 mg PO BID 10/04/16 Atorvastatin Calcium [Lipitor] 80 mg PO QHS tablet 10/25/16 Lisinopril [Zestril] 40 mg PO DAILY tablet 10/25/16 glipiZIDE [Glucotrol] 10 mg PO BID 08/03/20 metFORMIN HCl [Glucophage] 1,000 mg PO BIDCM 08/03/20 Surgical History: - - Radical excision and drainage necrotizing soft tissue infection abscess abdominal wall including left external oblique muscle and fascia (1075 cm2) 10/30/14, I+D wounds/Debridement non-healing wounds. Psychiatric History: No pertinent psych hx ENROLLMENT ADVISOR History: No pertinent ENROLLMENT ADVISOR history Lives: Alone Smoking Status: Former smoker Alcohol: None Drugs: None - *Family History Maternal History Items: - - Patient unable to state maternal history due to lethargy. Paternal History Items: - - Patient unable to state due to lethargy. Review of Systems Constitutional: Denies: Chills, Fever, Weight Change HEENT: Denies: Head Aches, Sinus Congestion, Sinus Drainage Cardiovascular: Denies: Chest Pain, Palpitations Respiratory: Denies: Cough, Shortness of breath at rest, Sputum production Gastrointestinal: Reports: Abdominal Pain, Nausea, Vomiting. Denies: Constipation, Diarrhea Genitourinary: Denies: Dysuria Musculoskeletal: Denies: Joint Pain, Joint Tenderness Skin: Denies: Rash, Wounds Neurological: Denies: Numbness, Tingling, Focal weakness Psychiatric: Denies: Anxiety, Depression, Homicidal Ideations, Suicidal Ideations Hematologic/ Lymphatic: Denies: Easy Bruising, Easy Bleeding VTE Information - Inpt Only VTE Present on Admission: No VTE Mechan Device Prophylaxis: SCD's VTE Pharm Prophylaxis ordered?: No Reason prophylaxis not ordered:: Treatment Not Indicated - On Eliquis at baseline, on hold - Physical Exam Vitals/I&O's: Vital Signs Temp Pulse Resp BP Pulse Ox 98.0 F 120 H 16 127/68 H 94 08/03/20 14:31 08/03/20 14:35 08/03/20 14:31 08/03/20 14:31 08/03/20 14:31 Oxygen Delivery Method Room Air Weight: 236 lb 15.951 oz Body Mass Index (BMI) 38.2 Finger Stick Blood Glucose 370 Intake and Output for Last 24 Hours 08/01/20 08/02/20 08/03/20 23:59 23:59 23:59 Output Total 700 / 700 Balance -700 / -700 General: Cooperative, No apparent distress, - - Drowsy HEENT: Atraumatic, PERRLA, EOMI, Normocephalic Oral: - - NG tube in place Neck: Supple, No JVD, Negative Carotid Bruits Lungs: Clear to auscultation, Diminished Cardiovascular: Regular rate, Regular Rhythm, No murmurs, Tachycardic Abdomen: Bowel Sounds Present, Soft, Tender, Hernia Extremities: No clubbing, No cyanosis, No edema, Capillary Refill Less than 3 Seconds Skin: No rashes, No breakdown Musculoskeletal: No Tenderness to Palpation of Joints or Extremities Neurological: Cranial nerves II-XII grossly intact, Neuro grossly intact Psych/Mental Status: Flat Affect Laboratory Results 08/03/20 14:53: WBC 15.3 H, RBC 6.15 H, Hgb 16.2 H, Hct 50.0 H, MCV 81.3, MCH 26.3 L, MCHC 32.4, RDW Std Deviation 43.6, RDW Coeff of Faby 15.2 H, Plt Count 248, MPV 9.7, Immature Gran % (Auto) 0.500, Neut % (Auto) 89.4 H, Lymph % (Auto) 5.1 L, Keith % (Auto) 4.6, Eos % (Auto) 0.1, Baso % (Auto) 0.3, Absolute Neuts (auto) 13.7 H, Absolute Lymphs (auto) 0.78 L, Nucleated RBC % 0 08/03/20 14:53: Sodium 134 L, Potassium 5.3 H, Chloride 98, Carbon Dioxide 29.0, Anion Gap 7, BUN 20 H, Creatinine 1.15 H, Estim Creat Clear Calc 45.66, Est GFR (MDRD) Af Amer 61, Est GFR (MDRD) Non-Af 50 L, BUN/Creatinine Ratio 17.4, Glucose 358 H, Calcium 10.4 H, Total Bilirubin 0.80, AST 39 H, ALT 41, Alkaline Phosphatase 140 H, Total Protein 8.7 H, Albumin 3.5, Globulin 5.2 H, Albumin/Globulin Ratio 0.7 L, Lipase 195 08/03/20 15:45: Urine Color Licha, Urine Clarity Sl. Cloudy, Urine pH 5.0, Ur Specific [place] 1.030, Urine Protein 100 H, Urine Glucose (UA) 250 H, Urine Ketones 5 H, Urine Occult Blood Negative, Urine Nitrite Negative, Urine Bilirubin 3 H, Urine Urobilinogen 4 H, Ur Leukocyte Esterase 25 H, Urine RBC 0 SEEN, Urine WBC 0-5 SEEN, Ur Squamous Epith Cells 0-5 SEEN, Amorphous Sediment 1+ URATE, Urine Bacteria 0 SEEN, Hyaline Casts 25-50 SEEN, Urine Mucus 0 SEEN Current Medications Sodium Chloride () 1,000 mls @ 999 mls/hr IV .Q1H1M ONE Stop: 08/03/20 18:20 Assessment/Plan All Active Problems Diverticular disease of intestine with perforation and abscess (Resolved) Left flank pain (Resolved) Necrotizing soft tissue infection (Resolved) Nonhealing skin ulcer (Resolved) Pyelonephritis (Resolved) 1. Small bowel obstruction-CT of abdomen admission show small bowel obstruction due to ventral wall hernia. General surgery consulted. NG placed in ER. NPO. IV fluids. Conservative management at this time. 2. Ventral hernia, chronic-surgery following. Possible surgical intervention-Eliquis on hold, last took 08/03/2020 in a.m. 3. Leukocytosis-suspect reactive. IV fluids, trend CBC. 4. History of CVA-statin, Eliquis on hold. 5. Type 2 diabetes mellitus-hold oral regimen. Accu-Cheks with sliding scale insulin. 6. Hypertension-oral regimen on hold. As needed hydralazine for systolic blood pressure greater than 160. 7. Hyperlipidemia-on statin, hold. 8. Paroxysmal atrial fibrillation-hold Eliquis. Not on rate limiting regimen. 9. GERD-PPI. 10. Obesity-encouraged diet lifestyle modifications. 11. FLOR-unclear if patient wears CPAP/BiPAP. DVT prophylaxis-Eliquis on hold, SCDs This patient was seen by GILBERT Love under the supervision of Dr. Felder. <Bryce Felder - Last Filed: 08/03/20 18:31> History of Present Illness The patient is a 64 year old F presents with a 1 day history of abdominal pain. Patient was 10 out of 10. Patient was found to have ventral hernia with small bowel obstruction. Unable to be reduced in the emergency room. NG tube was placed and patient had roughly a liter of fluid removed. Patient was seen by general surgery in the emergency room and requested medical admission with surgery on consultation. [] Past Medical History Allergies iodine Allergy (Mild, Verified 08/03/20 14:30) Itching Penicillins Allergy (Mild, Verified 08/03/20 14:30) Itching Surgical History: - Psychiatric History: No pertinent psych hx ENROLLMENT ADVISOR History: No pertinent ENROLLMENT ADVISOR history Lives: Alone Smoking Status: Former smoker Alcohol: None Drugs: None - *Family History Maternal History Items: - Review of Systems Constitutional: Denies: Chills, Fever, Weight Change HEENT: Denies: Head Aches, Sinus Congestion, Sinus Drainage Cardiovascular: Denies: Chest Pain Respiratory: Denies: Cough, Shortness of breath at rest, Sputum production Gastrointestinal: Reports: Abdominal Pain, Nausea, Vomiting. Denies: Constipation, Diarrhea Genitourinary: Denies: Dysuria Musculoskeletal: Denies: Joint Pain, Joint Tenderness Skin: Denies: Rash, Wounds Neurological: Denies: Focal weakness, Numbness, Tingling Psychiatric: Denies: Anxiety, Depression, Homicidal Ideations, Suicidal Ideations Hematologic/ Lymphatic: Denies: Easy Bruising, Easy Bleeding VTE Information - Inpt Only VTE Present on Admission: No VTE Mechan Device Prophylaxis: SCD's VTE Pharm Prophylaxis ordered?: No Reason prophylaxis not ordered:: Treatment Not Indicated - Physical Exam Vitals/I&O's: Vital Signs Temp Pulse Resp BP Pulse Ox 36.3 C L 87 16 146/92 H 95 08/03/20 18:03 08/03/20 18:03 08/03/20 18:03 08/03/20 18:03 08/03/20 18:03 Oxygen Delivery Method Room Air Weight: 107.5 kg Body Mass Index (BMI) 38.2 Finger Stick Blood Glucose 370 Intake and Output for Last 24 Hours 08/01/20 08/02/20 08/03/20 23:59 23:59 23:59 Intake Total 1000 / 1000 Output Total 700 / 700 Balance 300 / 300 General: - - Drowsy uncomfortable. HEENT: Atraumatic, Normocephalic, - - NG tube in place Neck: Supple, Negative Carotid Bruits Lungs: Clear to auscultation, Diminished Cardiovascular: Regular rate, Regular Rhythm, No murmurs, Tachycardic Abdomen: Bowel Sounds Present, Soft, Tender, Hernia Extremities: No clubbing, No cyanosis, No edema, Capillary Refill Less than 3 Seconds Skin: No rashes, No breakdown Musculoskeletal: No Tenderness to Palpation of Joints or Extremities Neurological: Cranial nerves II-XII grossly intact, Neuro grossly intact Laboratory Results 08/03/20 14:53: WBC 15.3 H, RBC 6.15 H, Hgb 16.2 H, Hct 50.0 H, MCV 81.3, MCH 26.3 L, MCHC 32.4, RDW Std Deviation 43.6, RDW Coeff of Faby 15.2 H, Plt Count 248, MPV 9.7, Immature Gran % (Auto) 0.500, Neut % (Auto) 89.4 H, Lymph % (Auto) 5.1 L, Keith % (Auto) 4.6, Eos % (Auto) 0.1, Baso % (Auto) 0.3, Absolute Neuts (auto) 13.7 H, Absolute Lymphs (auto) 0.78 L, Nucleated RBC % 0 08/03/20 14:53: Sodium 134 L, Potassium 5.3 H, Chloride 98, Carbon Dioxide 29.0, Anion Gap 7, BUN 20 H, Creatinine 1.15 H, Estim Creat Clear Calc 45.66, Est GFR (MDRD) Af Amer 61, Est GFR (MDRD) Non-Af 50 L, BUN/Creatinine Ratio 17.4, Glucose 358 H, Calcium 10.4 H, Total Bilirubin 0.80, AST 39 H, ALT 41, Alkaline Phosphatase 140 H, Total Protein 8.7 H, Albumin 3.5, Globulin 5.2 H, Albumin/Globulin Ratio 0.7 L, Lipase 195 08/03/20 15:45: Urine Color Licha, Urine Clarity Sl. Cloudy, Urine pH 5.0, Ur Specific [place] 1.030, Urine Protein 100 H, Urine Glucose (UA) 250 H, Urine Ketones 5 H, Urine Occult Blood Negative, Urine Nitrite Negative, Urine Bilirubin 3 H, Urine Urobilinogen 4 H, Ur Leukocyte Esterase 25 H, Urine RBC 0 SEEN, Urine WBC 0-5 SEEN, Ur Squamous Epith Cells 0-5 SEEN, Amorphous Sediment 1+ URATE, Urine Bacteria 0 SEEN, Hyaline Casts 25-50 SEEN, Urine Mucus 0 SEEN 08/03/20 17:48: Lactic Acid Pending Assessment/Plan Patient seen and examined independently. Data reviewed. I agree with the above note by the nurse practitioner. 1. Acute small bowel obstruction due to ventral hernia: Unable to be reduced in the emergency room. General surgery is on consultation. Plan from surgery is conservative managements at this time. Continue with pain control, antiemetics and NG tube. If surgery is needed, patient has numerous medical issues but currently medically optimized to proceed with surgery though does carry above average risk for serious complications, any complications and readmissions and discharged to retirement, however, no additional medical optimization needed at this time. Hopefully this will resolve spontaneously but I am concerned the patient may either progress or does not improve her surgery may become necessary. Lactic acid normal at 1.6 2. A. fib: Apixaban currently being held. 3. Leukocytosis: Suspect reactive related to small bowel obstruction. Monitor. Inpatient E&M: 87769 Init Hosp L3
[2020-08-03] MEDS: 0.9% Normal Saline 1,000 ML 999 ML IV (18:05)
[2020-08-03 18:22] LABS: Lactic Acid 1.6 mmol/L (0.4-1.9)
[2020-08-03 19:40] LABS: Absolute Lymphocyte Count 0.89 X10^3/uL (0.83-4.51); Absolute Neutrophil Count 14.1 X10^3/uL (2.0-7.7); Basophil# 0.05 X10^3/uL; Basophil% 0.3 % (0-1); Eosinophil# 0.03 X10^3/uL; Eosinophils% 0.2 % (0-5); Hematocrit 49.5 % (37-47); Hemoglobin 15.6 g/dL (12.0-15.0); Lymphocyte # 0.89 X10^3/ul (4.0); Lymphocyte % 5.5 % (19-41); Mean Corp Hgb Conc 31.5 g/dL (32-36); Mean Corpuscular Volume 82.6 fL (81-99); Mean Platelet Vol. 9.8 fl (6.2-12.0); Monocyte# 1.07 X10^3/uL; Monocyte% 6.6 % (0-10); NRBC Flagged by Analyzer 0 % (0-5); Neutrophil # 14.06 X10^3/uL (2.7-7.7); Platelet Count 217 K/mm3 (150-450); RBC Distribution Width CV 15.2 % (11.6-14.6); RBC Distribution Width SD 45.1 fl (35.1-43.9); Red Blood Count 5.99 M/mm3 (4.2-5.4); White Blood Count 16.2 K/mm3 (4.4-11.0)
[2020-08-03 19:54] LABS: Potassium 5.6 mmol/L (3.5-5.1)
--- NOTE | 2020-08-03 19:58 | EKG12_ITS ---
Test Reason : PRE-OP Blood Pressure : / mmHG Vent. Rate : 115 BPM Atrial Rate : 115 BPM P-R Int : 136 ms QRS Dur : 078 ms QT Int : 320 ms P-R-T Axes : 064 047 059 degrees QTc Int : 442 ms Sinus tachycardia Nonspecific T wave abnormality Abnormal ECG When compared with ECG of 06-JUN-2020 18:21, Nonspecific T wave abnormality now evident in Lateral leads Confirmed by CATHERINE GAFFNEY, BRIA ([id number]), legal editor LOLA HUNG ([id number]) on 08/05/2020 10:46:57 AM Referred By: DR LOZANO Confirmed By:BRIA ALEXANDER MD
[2020-08-03] MEDS: 0.9% Normal Saline 1,000 ML 150 ML IV (20:01)
[2020-08-03] MEDS: 0.9% Saline Lock 10 ML Syringe IV (20:05)
--- NOTE | 2020-08-03 20:20 | RAD_ITS ---
STUDY: X-RAY CHEST REASON FOR EXAM: Female, 64 years old. Pre-op for small bowel obstruction surgery. TECHNIQUE: Single frontal view of the chest COMPARISON: Earlier same day. FINDINGS: Enteric tube tip not visualized. Cardiac silhouette unremarkable. Pulmonary vascularity unremarkable. Aorta unremarkable. No focal airspace consolidation. Mildly prominent interstitial lung markings are nonspecific but may be seen in the setting of viral pneumonia. No pleural effusions. Upper abdomen unremarkable. Osseous structures intact. No pneumothorax. RAD/Chest 1 View (Portable) IMPRESSION: Mildly prominent interstitial lung markings are nonspecific but may be seen in the setting of viral pneumonia versus atelectasis. Electronically Signed: Jewel Taylor, at 22:06 EST Tel , Service support ,
--- NOTE | 2020-08-03 21:30 | HERN_PTH ---
PATIENT: ZOIE DE LA PAZ LOC: MS3 U#:[id number] AGE/SX: 64/F ROOM: MS317 RE08/03/[address]: Dr. Sharyn Viveros MD : [id number] BED: 1 DIS: 08/06/2020 SPEC #: [id number] RECD: 08/04/20 07:34 STATUS: RADHA REAramis #: [id number] TONE: 08/03/20 21:[address]: An Shah DEPT: SURGICAL PATHOLOGY RECD BY: Elaine Wiseman ENTERED: 08/04/20 08:25 SP TYPE: Hernia OTHR DR: DO Dr. Sharyn Mejia MD Dr. Scott Hannan, MD Dr. Tamera Robotham, MD Tissues: HERNIA Procedures: Surgery Specimen Level II Comments: @ Ordering doctor for [facility] edited from to @ by JUHI at 08/04/20 0936 @ Submitting doctor edited from to @ by MAYELAOD at 08/04/20 0936 HEADER OPERATION: Incisional hernia repair with mesh PRE-OP DIAGNOSIS: Incarcerated incisional hernia TISSUE SUBMITTED: Hernia sac MICROSCOPIC DIAGNOSIS Hernia sac: Fragments of fibroadipose and fibroconnective tissue, consistent with hernia sac, clinically incarcerated incisional hernia. SHYANNE:jeffrey 08/05/2020 MICROSCOPIC DESCRIPTION Slides are reviewed. GROSS DESCRIPTION Received in fixative is one container labeled with the patient's name and designated hernia sac. The specimen consists of multiple pieces of soft tissue that in aggregate measure 5 x 4.5 x 1 cm. No mass lesion is identified. Cloth Washer Operator sections are submitted in one cassette. / SHYANNE:jeffrey 08/04/2020 :5 CPT: 61790
[2020-08-03] MEDS: Ciprofloxacin 400 MG/200 ML BAG 200 MG IV (21:40)
[2020-08-03] MEDS: metroNIDAZOLE 500 MG/100 ML BAG 100 MG IV (21:45)
--- NOTE | 2020-08-03 22:57 | PCM.OPRPT ---
Report of Operation Date of Procedure: 08/03/20 Pre-Operative Diagnosis: Incarcerated incisional hernia causing small bowel obstruction, leukocytosis Post-Operative Diagnosis: Same Surgery/Procedure Performed:: Incisional hernia repair, lysis of adhesion release of small bowel obstruction Type of Anesthesia:: General/Supplemental Anesthesiologist: Emili Puente Special Medications: Cipro 400 mg IV x1, Flagyl 500 mg IV x1 Specimen's removed: Hernia sac Estimated Blood Loss (mL): 20 cc Fluids Replaced: 800 cc Description of Procedure: Indications 64-year-old female presents to the ER CT abdomen pelvis showed a small bowel obstruction with transition at the incisional hernia site. Patient did have a leukocytosis of 15. Patient's lactate was normal however recheck of CBC was still elevated at 16. Unable to assure that patient's bowel is not strangulated as unable to reduce in the ER. Patient was brought into the room placed supine on the operating table. Correct patient, procedure, site, positioning, special, was verified prior to procedure. General anesthesia was induced. The abdomen was prepped draped in usual sterile fashion. Patient's previous midline incision was reincised with a 10 blade scalpel. This was deepened with electrocautery. The fascia around the hernia defect was cleared and the hernia defect measured 4 x 3 cm. Metzenbaums were used for lysis of adhesions as this was a chronic hernia with small bowel incarcerated. Small bowel was viable. 0 Prolene [id number] suture was used to close the fascia. The wound was irrigated with saline. Hemostasis was assured. The skin of the umbilicus was secured to the fascia using 3-0 Vicryl suture interrupted. The incision was closed with 3-0 Vicryl subdermal interrupted sutures and the skin was closed with interrupted 4-0 Monocryl sutures. Steri-Strips and OpSite were placed. Patient was extubated. Patient tolerated procedure well and was taken to the postanesthesia care unit in stable condition. - Complications none
[2020-08-03] MEDS: Bupiv/Epi 0.5% Mpf 30 ML Vial (23:09)
[2020-08-03 23:30] LABS: Bedside Glucose 307 mg/dL (70-110)
[2020-08-03] MEDS: Lactated Ringers 1,000 ML 100 ML IV (23:55)
[2020-08-04] VITALS (9 sets, daily range): BP systolic 120–144; BP diastolic 53–78; PULSE 95–110; RESP 16–18; TEMP 36.6–36.9; O2SAT 92–96; BMI 38.3
[2020-08-04 00:04] LABS: Anion Gap 9 (5-15); BUN 25 mg/dL (7-18); BUN/Creat Ratio 19.4 RATIO (10-20); Calcium,Total 8.8 mg/dL (8.5-10.1); Chloride 103 mmol/L (98-107); Creatinine, Serum 1.29 mg/dL (0.55-1.02); EST Glomerular Filtration Rate 44 mL/min (>60); Est Glom Filt Rate - Afr Amer 53 mL/min (>60); Glucose 278 mg/dL (74-106); Potassium 4.9 mmol/L (3.5-5.1); Sodium Level 136 mmol/L (136-145)
[2020-08-04 00:35] LABS: Bedside Glucose 290 mg/dL (70-110)
[2020-08-04] MEDS: Insulin Lispro 100 UNIT/ML INSULN.PEN SC ×4 (00:37→17:13)
[2020-08-04] MEDS: 0.9% Normal Saline 1,000 ML 150 ML IV ×3 (03:56→17:12)
[2020-08-04 06:01] LABS: Absolute Lymphocyte Count 0.74 X10^3/uL (0.83-4.51); Absolute Neutrophil Count 8.1 X10^3/uL (2.0-7.7); Basophil# 0.02 X10^3/uL; Basophil% 0.2 % (0-1); Hematocrit 45.1 % (37-47); Hemoglobin 14.1 g/dL (12.0-15.0); Lymphocyte # 0.74 X10^3/ul (4.0); Lymphocyte % 8.1 % (19-41); Mean Corp Hgb Conc 31.3 g/dL (32-36); Mean Corpuscular Hgb 25.8 pg (27.0-32.0); Mean Corpuscular Volume 82.6 fL (81-99); Mean Platelet Vol. 9.7 fl (6.2-12.0); Monocyte% 2.2 % (0-10); NRBC Flagged by Analyzer 0 % (0-5); Neutrophil # 8.12 X10^3/uL (2.7-7.7); Neutrophil % 89.2 % (47-70); Platelet Count 185 K/mm3 (150-450); RBC Distribution Width CV 15.1 % (11.6-14.6); RBC Distribution Width SD 45.3 fl (35.1-43.9); Red Blood Count 5.46 M/mm3 (4.2-5.4); White Blood Count 9.1 K/mm3 (4.4-11.0)
[2020-08-04 06:29] LABS: Anion Gap 5 (5-15); BUN 28 mg/dL (7-18); BUN/Creat Ratio 25.2 RATIO (10-20); Calcium,Total 8.7 mg/dL (8.5-10.1); Chloride 106 mmol/L (98-107); Creatinine, Serum 1.11 mg/dL (0.55-1.02); EST Glomerular Filtration Rate 52 mL/min (>60); Est Glom Filt Rate - Afr Amer 63 mL/min (>60); Glucose 299 mg/dL (74-106); Potassium 4.2 mmol/L (3.5-5.1); Sodium Level 139 mmol/L (136-145)
--- NOTE | 2020-08-04 08:55 | PN.SURG_ITS ---
Subjective: Patient denies any pain denies flatus or bowel movements. Patient did accidentally pull her NG after surgery. - Physical Exam Vitals/I&O's: Vital Signs Temp Pulse Resp BP Pulse Ox 98.3 F 101 H 18 121/53 H 95 08/04/20 04:00 08/04/20 08:00 08/04/20 04:00 08/04/20 04:00 08/04/20 04:00 Oxygen Flow Rate (L/min) 3 Oxygen Delivery Method Nasal Cannula Weight: 220 lb Body Mass Index (BMI) 35.5 Finger Stick Blood Glucose 307 Intake and Output for Last 24 Hours 08/02/20 08/03/20 08/04/20 23:59 23:59 23:59 Intake Total 3300 / 3300 511.67 / 511.67 Output Total 1400 / 1400 Balance 1900 / 1900 511.67 / 511.67 General: Alert, Oriented x3, Cooperative, No apparent distress Cardiovascular: Regular rate Abdomen: Soft, Non-Distended, Tender - Minimal at incision, dressed clean dry and intact, no peritoneal signs Microbiology Past 72 Hours 08/03/20 20:51 Interface Orders SARS-CoV-2 Antigen (Rapid) - Final Laboratory Results 08/03/20 14:53: WBC 15.3 H, RBC 6.15 H, Hgb 16.2 H, Hct 50.0 H, MCV 81.3, MCH 26.3 L, MCHC 32.4, RDW Std Deviation 43.6, RDW Coeff of Faby 15.2 H, Plt Count 248, MPV 9.7, Immature Gran % (Auto) 0.500, Neut % (Auto) 89.4 H, Lymph % (Auto) 5.1 L, [place] % (Auto) 4.6, Eos % (Auto) 0.1, Baso % (Auto) 0.3, Absolute Neuts (auto) 13.7 H, Absolute Lymphs (auto) 0.78 L, Nucleated RBC % 0 08/03/20 14:53: Sodium 134 L, Potassium 5.3 H, Chloride 98, Carbon Dioxide 29.0, Anion Gap 7, BUN 20 H, Creatinine 1.15 H, Estim Creat Clear Calc 45.66, Est GFR (MDRD) Af Amer 61, Est GFR (MDRD) Non-Af 50 L, BUN/Creatinine Ratio 17.4, Glucose 358 H, Calcium 10.4 H, Total Bilirubin 0.80, AST 39 H, ALT 41, Alkaline Phosphatase 140 H, Total Protein 8.7 H, Albumin 3.5, Globulin 5.2 H, Albumin/Globulin Ratio 0.7 L, Lipase 195 08/03/20 15:45: Urine Color Licha, Urine Clarity Sl. Cloudy, Urine pH 5.0, Ur Specific [place] 1.030, Urine Protein 100 H, Urine Glucose (UA) 250 H, Urine Ketones 5 H, Urine Occult Blood Negative, Urine Nitrite Negative, Urine Bilirubin 3 H, Urine Urobilinogen 4 H, Ur Leukocyte Esterase 25 H, Urine RBC 0 SEEN, Urine WBC 0-5 SEEN, Ur Squamous Epith Cells 0-5 SEEN, Amorphous Sediment 1+ URATE, Urine Bacteria 0 SEEN, Hyaline Casts 25-50 SEEN, Urine Mucus 0 SEEN 08/03/20 17:48: Lactic Acid 1.6 08/03/20 19:29: WBC 16.2 H, RBC 5.99 H, Hgb 15.6 H, Hct 49.5 H, MCV 82.6, MCH 26.0 L, MCHC 31.5 L, RDW Std Deviation 45.1 H, RDW Coeff of Faby 15.2 H, Plt Count 217, MPV 9.8, Immature Gran % (Auto) 0.400, Neut % (Auto) 87.0 H, Lymph % (Auto) 5.5 L, [place] % (Auto) 6.6, Eos % (Auto) 0.2, Baso % (Auto) 0.3, Absolute Neuts (auto) 14.1 H, Absolute Lymphs (auto) 0.89, Nucleated RBC % 0 08/03/20 19:29: Potassium 5.6 H 08/03/20 23:26: POC Glucose 307 H 08/03/20 23:42: Sodium 136, Potassium 4.9, Chloride 103, Carbon Dioxide 24.0, Anion Gap 9, BUN 25 H, Creatinine 1.29 H, Estim Creat Clear Calc 40.70, Est GFR (MDRD) Af Amer 53 L, Est GFR (MDRD) Non-Af 44 L, BUN/Creatinine Ratio 19.4, Glucose 278 H, Calcium 8.8 08/04/20 00:33: POC Glucose 290 H 08/04/20 05:35: WBC 9.1, RBC 5.46 H, Hgb 14.1, Hct 45.1, MCV 82.6, MCH 25.8 L, MCHC 31.3 L, RDW Std Deviation 45.3 H, RDW Coeff of Faby 15.1 H, Plt Count 185, MPV 9.7, Immature Gran % (Auto) 0.300, Neut % (Auto) 89.2 H, Lymph % (Auto) 8.1 L, Cobb % (Auto) 2.2, Eos % (Auto) 0.0, Baso % (Auto) 0.2, Absolute Neuts (auto) 8.1 H, Absolute Lymphs (auto) 0.74 L, Nucleated RBC % 0 08/04/20 05:35: Sodium 139, Potassium 4.2, Chloride 106, Carbon Dioxide 28.0, Anion Gap 5, BUN 28 H, Creatinine 1.11 H, Estim Creat Clear Calc 47.30, Est GFR (MDRD) Af Amer 63, Est GFR (MDRD) Non-Af 52 L, BUN/Creatinine Ratio 25.2 H, Glucose 299 H, Calcium 8.7 Current Medications Hydralazine HCl (Hydralazine 20 Mg/Ml Vial) 10 mg IV Q4H PRN PRN PRN Reason: BLOOD PRESSURE Sodium Chloride () 1,000 mls @ 150 mls/hr IV .Q6H40M [facility] Last Admin: 08/04/20 03:56 Dose: 150 mls/hr Documented by: Pantoprazole Sodium 40 mg/ (Sodium Chloride) 110 mls @ 330 mls/hr IV Q12 [facility] Last Admin: 08/04/20 08:35 Dose: 330 mls/hr Documented by: Insulin Human Lispro (Insulin Lispro 100 Unit/Ml Insuln.Pen) 0 unit SC Q6 [facility]; Protocol Last Admin: 08/04/20 06:52 Dose: 8 units Documented by: Morphine Sulfate (Morphine 2 Mg/Ml Syringe) 2 - 4 mg IV Q3H PRN PRN PRN Reason: Pain Score 6-10 Morphine Sulfate (Morphine 4 Mg/Ml Syringe) 2 - 4 mg IV Q3H PRN PRN PRN Reason: Pain Score 6-10 Ondansetron HCl (Ondansetron 4 Mg/2 Ml Vial) 4 mg IV Q8H PRN PRN PRN Reason: NAUSEA/VOMITING Prochlorperazine Edisylate (Prochlorperazine 10 Mg/2 Ml Vial) 5 mg IV Q4H PRN PRN PRN Reason: Breakthrough nausea/vomiting Sodium Chloride (0.9% Saline Lock 10 Ml Syringe) 10 - 40 ml IV UD PRN PRN Reason: SALINE FLUSH Last Admin: 08/03/20 20:05 Dose: 10 ml Documented by: Medical Necessity - Tobacco Use Smoking Status: Former smoker Tobacco Use: Cigarettes Assessment/Plan All Active Problems Diverticular disease of intestine with perforation and abscess (Resolved) Left flank pain (Resolved) Necrotizing soft tissue infection (Resolved) Nonhealing skin ulcer (Resolved) Pyelonephritis (Resolved) 64-year-old female with small bowel obstruction, Incarcerated incisional hernia, postop day 1 repair of incarcerated incisional hernia 1. Continue n.p.o./IV fluids until bowel function?Okay for meds with sips. Patient did excellently pull NG while drowsy yesterday-will keep out unless patient has nausea or vomiting. An Shah M.D. Pager: [phone] [facility] [address] [place] [address], [facility], [address] [place] [address] Office: [phone]
--- NOTE | 2020-08-04 10:35 | CASEMGMT ---
AYE CHAUDHRY Face to Face with patient for initial transition planning/care coordination assessment. RN RICHA introduced self and role at [facility]. Patient lying in bed, alert and oriented. Patient willing to participate in assessment and is able to answer all questions appropriately. Care providers, pharmacy, and demographics verified. Patient wishes to discharge home, denies need for home health at this time. Patient states she has no further needs or concerns at this time. CM to follow for discharge planning needs that may arise. PCP: Liana Specialists: none Preferred Pharmacy: [facility] Insurance: [employer] Prescription Benefit: yes Living Will/HPOA: none LNOK: friend listed as contact Living Arrangements: Patient lives alone in first floor apartment 1 step and grab bar to enter the home. Patient states she is independent for self care. Patient has aides for housekeeping Transportation: [facility]/HHC: Patient states she has raised toilet, cane, walker, and grab bars at home. Patient denies C for nursing or therapy. Patient states she has waiver program Aides MWF 2-3hrs per day. Disposition Plan: Patient to discharge home with aide services and follow-up plans in place. Gabriela LÓPEZ, RN, CM
[2020-08-04 12:15] LABS: Bedside Glucose 260 mg/dL (70-110)
--- NOTE | 2020-08-04 13:19 | PN_ITS ---
<EvensFaye [employer] CREWMEMBER - Last Filed: 08/04/20 13:27> Subjective: Patient seen and examined. Denies pain. Stating she is hungry, requesting ice chips. Has not yet passed gas, no bowel movement. - Physical Exam Vitals/I&O's: Vital Signs Temp Pulse Resp BP Pulse Ox 97.8 F 105 H 18 120/58 L 94 08/04/20 08:35 08/04/20 08:35 08/04/20 08:35 08/04/20 08:35 08/04/20 08:35 Oxygen Flow Rate (L/min) 2 Oxygen Delivery Method Nasal Cannula Weight: 220 lb Body Mass Index (BMI) 35.5 Finger Stick Blood Glucose 307 Intake and Output for Last 24 Hours 08/02/20 08/03/20 08/04/20 23:59 23:59 23:59 Intake Total 3300 / 3300 1821.67 / 1821.67 Output Total 1400 / 1400 300 / 300 Balance 1900 / 1900 1521.67 / 1521.67 General: Alert, Cooperative, No apparent distress HEENT: Atraumatic, PERRLA, EOMI, Normocephalic Oral: Dry Mucosa Neck: Supple, No JVD, Negative Carotid Bruits Lungs: Clear to auscultation, Diminished Cardiovascular: Regular rate, No murmurs Abdomen: Soft, Non Tender, Non-Distended, Hypoactive Bowel Sounds Extremities: No clubbing, No cyanosis, No edema, Capillary Refill Less than 3 Seconds Skin: No rashes, No breakdown Musculoskeletal: No Tenderness to Palpation of Joints or Extremities Neurological: Cranial nerves II-XII grossly intact, Neuro grossly intact Psych/Mental Status: Normal Affect, Appropriate Microbiology Past 72 Hours 08/03/20 20:51 Interface Orders SARS-CoV-2 Antigen (Rapid) - Final Laboratory Results 08/03/20 14:53: WBC 15.3 H, RBC 6.15 H, Hgb 16.2 H, Hct 50.0 H, MCV 81.3, MCH 26.3 L, MCHC 32.4, RDW Std Deviation 43.6, RDW Coeff of Faby 15.2 H, Plt Count 248, MPV 9.7, Immature Gran % (Auto) 0.500, Neut % (Auto) 89.4 H, Lymph % (Auto) 5.1 L, [place] % (Auto) 4.6, Eos % (Auto) 0.1, Baso % (Auto) 0.3, Absolute Neuts (auto) 13.7 H, Absolute Lymphs (auto) 0.78 L, Nucleated RBC % 0 08/03/20 14:53: Sodium 134 L, Potassium 5.3 H, Chloride 98, Carbon Dioxide 29.0, Anion Gap 7, BUN 20 H, Creatinine 1.15 H, Estim Creat Clear Calc 45.66, Est GFR (MDRD) Af Amer 61, Est GFR (MDRD) Non-Af 50 L, BUN/Creatinine Ratio 17.4, Glucose 358 H, Calcium 10.4 H, Total Bilirubin 0.80, AST 39 H, ALT 41, Alkaline Phosphatase 140 H, Total Protein 8.7 H, Albumin 3.5, Globulin 5.2 H, Albumin/Globulin Ratio 0.7 L, Lipase 195 08/03/20 15:45: Urine Color Licha, Urine Clarity Sl. Cloudy, Urine pH 5.0, Ur Specific [place] 1.030, Urine Protein 100 H, Urine Glucose (UA) 250 H, Urine Ketones 5 H, Urine Occult Blood Negative, Urine Nitrite Negative, Urine Bilirubin 3 H, Urine Urobilinogen 4 H, Ur Leukocyte Esterase 25 H, Urine RBC 0 SEEN, Urine WBC 0-5 SEEN, Ur Squamous Epith Cells 0-5 SEEN, Amorphous Sediment 1+ URATE, Urine Bacteria 0 SEEN, Hyaline Casts 25-50 SEEN, Urine Mucus 0 SEEN 08/03/20 17:48: Lactic Acid 1.6 08/03/20 19:29: WBC 16.2 H, RBC 5.99 H, Hgb 15.6 H, Hct 49.5 H, MCV 82.6, MCH 26.0 L, MCHC 31.5 L, RDW Std Deviation 45.1 H, RDW Coeff of Faby 15.2 H, Plt Count 217, MPV 9.8, Immature Gran % (Auto) 0.400, Neut % (Auto) 87.0 H, Lymph % (Auto) 5.5 L, [place] % (Auto) 6.6, Eos % (Auto) 0.2, Baso % (Auto) 0.3, Absolute Neuts (auto) 14.1 H, Absolute Lymphs (auto) 0.89, Nucleated RBC % 0 08/03/20 19:29: Potassium 5.6 H 08/03/20 23:26: POC Glucose 307 H 08/03/20 23:42: Sodium 136, Potassium 4.9, Chloride 103, Carbon Dioxide 24.0, Anion Gap 9, BUN 25 H, Creatinine 1.29 H, Estim Creat Clear Calc 40.70, Est GFR (MDRD) Af Amer 53 L, Est GFR (MDRD) Non-Af 44 L, BUN/Creatinine Ratio 19.4, Glucose 278 H, Calcium 8.8 08/04/20 00:33: POC Glucose 290 H 08/04/20 05:35: WBC 9.1, RBC 5.46 H, Hgb 14.1, Hct 45.1, MCV 82.6, MCH 25.8 L, MCHC 31.3 L, RDW Std Deviation 45.3 H, RDW Coeff of Faby 15.1 H, Plt Count 185, MPV 9.7, Immature Gran % (Auto) 0.300, Neut % (Auto) 89.2 H, Lymph % (Auto) 8.1 L, [place] % (Auto) 2.2, Eos % (Auto) 0.0, Baso % (Auto) 0.2, Absolute Neuts (auto) 8.1 H, Absolute Lymphs (auto) 0.74 L, Nucleated RBC % 0 08/04/20 05:35: Sodium 139, Potassium 4.2, Chloride 106, Carbon Dioxide 28.0, Anion Gap 5, BUN 28 H, Creatinine 1.11 H, Estim Creat Clear Calc 47.30, Est GFR (MDRD) Af Amer 63, Est GFR (MDRD) Non-Af 52 L, BUN/Creatinine Ratio 25.2 H, Glucose 299 H, Calcium 8.7 08/04/20 12:10: POC Glucose 260 H Current Medications Hydralazine HCl (Hydralazine 20 Mg/Ml Vial) 10 mg IV Q4H PRN PRN PRN Reason: BLOOD PRESSURE Sodium Chloride () 1,000 mls @ 150 mls/hr IV .Q6H40M [facility] Last Admin: 08/04/20 10:56 Dose: 150 mls/hr Documented by: Pantoprazole Sodium 40 mg/ (Sodium Chloride) 110 mls @ 330 mls/hr IV Q12 [facility] Last Infusion: 08/04/20 08:55 Dose: Infused Documented by: Insulin Human Lispro (Insulin Lispro 100 Unit/Ml Insuln.Pen) 0 unit SC Q6 [facility]; Protocol Last Admin: 08/04/20 12:11 Dose: 6 units Documented by: Morphine Sulfate (Morphine 2 Mg/Ml Syringe) 2 - 4 mg IV Q3H PRN PRN PRN Reason: Pain Score 6-10 Morphine Sulfate (Morphine 4 Mg/Ml Syringe) 2 - 4 mg IV Q3H PRN PRN PRN Reason: Pain Score 6-10 Ondansetron HCl (Ondansetron 4 Mg/2 Ml Vial) 4 mg IV Q8H PRN PRN PRN Reason: NAUSEA/VOMITING Prochlorperazine Edisylate (Prochlorperazine 10 Mg/2 Ml Vial) 5 mg IV Q4H PRN PRN PRN Reason: Breakthrough nausea/vomiting Sodium Chloride (0.9% Saline Lock 10 Ml Syringe) 10 - 40 ml IV UD PRN PRN Reason: SALINE FLUSH Last Admin: 08/03/20 20:05 Dose: 10 ml Documented by: Medical Necessity - Tobacco Use Smoking Status: Former smoker Tobacco Use: Cigarettes Assessment/Plan All Active Problems Diverticular disease of intestine with perforation and abscess (Resolved) Left flank pain (Resolved) Necrotizing soft tissue infection (Resolved) Nonhealing skin ulcer (Resolved) Pyelonephritis (Resolved) 1. Small bowel obstruction status secondary to ventral hernia post incisional hernia repair, lysis of adhesion release of small bowel obstruction 08/03/2020-CT of abdomen admission show small bowel obstruction due to ventral wall hernia. General surgery following. NG removed. Continue n.p.o. with meds and sips/chips until bowel function returns. As needed pain regimen. 2. Ventral hernia, chronic-status post surgical intervention as noted above. 3. Leukocytosis-reactive. Resolved. 4. History of CVA-statin, Eliquis on hold. Resume Eliquis when ok per surgery. 5. Type 2 diabetes mellitus-hold oral regimen. Accu-Cheks with sliding scale insulin. 6. Hypertension-oral regimen on hold. As needed hydralazine for systolic blood pressure greater than 160. 7. Hyperlipidemia-on statin, hold. 8. Paroxysmal atrial fibrillation-hold Eliquis. Not on rate limiting regimen. 9. GERD-PPI. 10. Obesity-encouraged diet lifestyle modifications. 11. FLOR-unclear if patient wears CPAP/BiPAP. DVT prophylaxis-Eliquis on hold, SCDs. Resume Eliquis when okay per surgery. This patient was seen by GILBERT Love under the supervision of Dr. Viveros. <FeliceSharyn - Last Filed: 08/04/20 16:05> - Physical Exam Vitals/I&O's: Vital Signs Temp Pulse Resp BP Pulse Ox 98.3 F 96 16 144/62 H 96 08/04/20 14:35 08/04/20 14:35 08/04/20 14:35 08/04/20 14:35 08/04/20 14:35 Oxygen Flow Rate (L/min) 2 Oxygen Delivery Method Room Air Weight: 219 lb 15.988 oz Body Mass Index (BMI) 35.5 Finger Stick Blood Glucose 307 Intake and Output for Last 24 Hours 08/02/20 08/03/20 08/04/20 23:59 23:59 23:59 Intake Total 3300 / 3300 1821.67 / 1821.67 Output Total 1400 / 1400 300 / 300 Balance 1900 / 1900 1521.67 / 1521.67 Microbiology Past 72 Hours 08/03/20 20:51 Interface Orders SARS-CoV-2 Antigen (Rapid) - Final Laboratory Results 08/03/20 15:45: Urine Color Licha, Urine Clarity Sl. Cloudy, Urine pH 5.0, Ur Specific [place] 1.030, Urine Protein 100 H, Urine Glucose (UA) 250 H, Urine Ketones 5 H, Urine Occult Blood Negative, Urine Nitrite Negative, Urine Bilirubin 3 H, Urine Urobilinogen 4 H, Ur Leukocyte Esterase 25 H, Urine RBC 0 SEEN, Urine WBC 0-5 SEEN, Ur Squamous Epith Cells 0-5 SEEN, Amorphous Sediment 1+ URATE, Urine Bacteria 0 SEEN, Hyaline Casts 25-50 SEEN, Urine Mucus 0 SEEN 08/03/20 17:48: Lactic Acid 1.6 08/03/20 19:29: WBC 16.2 H, RBC 5.99 H, Hgb 15.6 H, Hct 49.5 H, MCV 82.6, MCH 26.0 L, MCHC 31.5 L, RDW Std Deviation 45.1 H, RDW Coeff of Faby 15.2 H, Plt Count 217, MPV 9.8, Immature Gran % (Auto) 0.400, Neut % (Auto) 87.0 H, Lymph % (Auto) 5.5 L, [place] % (Auto) 6.6, Eos % (Auto) 0.2, Baso % (Auto) 0.3, Absolute Neuts (auto) 14.1 H, Absolute Lymphs (auto) 0.89, Nucleated RBC % 0 08/03/20 19:29: Potassium 5.6 H 08/03/20 23:26: POC Glucose 307 H 08/03/20 23:42: Sodium 136, Potassium 4.9, Chloride 103, Carbon Dioxide 24.0, Anion Gap 9, BUN 25 H, Creatinine 1.29 H, Estim Creat Clear Calc 40.70, Est GFR (MDRD) Af Amer 53 L, Est GFR (MDRD) Non-Af 44 L, BUN/Creatinine Ratio 19.4, Glucose 278 H, Calcium 8.8 08/04/20 00:33: POC Glucose 290 H 08/04/20 05:35: WBC 9.1, RBC 5.46 H, Hgb 14.1, Hct 45.1, MCV 82.6, MCH 25.8 L, MCHC 31.3 L, RDW Std Deviation 45.3 H, RDW Coeff of Faby 15.1 H, Plt Count 185, MPV 9.7, Immature Gran % (Auto) 0.300, Neut % (Auto) 89.2 H, Lymph % (Auto) 8.1 L, [place] % (Auto) 2.2, Eos % (Auto) 0.0, Baso % (Auto) 0.2, Absolute Neuts (auto) 8.1 H, Absolute Lymphs (auto) 0.74 L, Nucleated RBC % 0 08/04/20 05:35: Sodium 139, Potassium 4.2, Chloride 106, Carbon Dioxide 28.0, Anion Gap 5, BUN 28 H, Creatinine 1.11 H, Estim Creat Clear Calc 47.30, Est GFR (MDRD) Af Amer 63, Est GFR (MDRD) Non-Af 52 L, BUN/Creatinine Ratio 25.2 H, Glucose 299 H, Calcium 8.7 08/04/20 12:10: POC Glucose 260 H Current Medications Hydralazine HCl (Hydralazine 20 Mg/Ml Vial) 10 mg IV Q4H PRN PRN PRN Reason: BLOOD PRESSURE Sodium Chloride () 1,000 mls @ 100 mls/hr IV .Q10H [facility] Last Admin: 08/04/20 10:56 Dose: 150 mls/hr Documented by: Pantoprazole Sodium 40 mg/ (Sodium Chloride) 110 mls @ 330 mls/hr IV Q12 [facility] Last Infusion: 08/04/20 08:55 Dose: Infused Documented by: Insulin Human Lispro (Insulin Lispro 100 Unit/Ml Insuln.Pen) 0 unit SC Q6 [facility]; Protocol Last Admin: 08/04/20 12:11 Dose: 6 units Documented by: Morphine Sulfate (Morphine 2 Mg/Ml Syringe) 2 - 4 mg IV Q3H PRN PRN PRN Reason: Pain Score 6-10 Morphine Sulfate (Morphine 4 Mg/Ml Syringe) 2 - 4 mg IV Q3H PRN PRN PRN Reason: Pain Score 6-10 Ondansetron HCl (Ondansetron 4 Mg/2 Ml Vial) 4 mg IV Q8H PRN PRN PRN Reason: NAUSEA/VOMITING Prochlorperazine Edisylate (Prochlorperazine 10 Mg/2 Ml Vial) 5 mg IV Q4H PRN PRN PRN Reason: Breakthrough nausea/vomiting Sodium Chloride (0.9% Saline Lock 10 Ml Syringe) 10 - 40 ml IV UD PRN PRN Reason: SALINE FLUSH Last Admin: 08/03/20 20:05 Dose: 10 ml Documented by: Assessment/Plan Patient seen by Faye Arce under my supervision Patient seen and examined. She was admitted with a complaint of abdominal pain and found to have small bowel obstruction due to ventral hernia. She had repair of the hernia with lysis of adhesion on 08/04/2020. Patient had no complaints this morning. She wanted some cold water to drink. NG tube has been removed. General surgery on board. Review of symptoms otherwise negative. Patient has not yet passed gas. O/E: Vital Signs Temp Pulse Resp BP Pulse Ox 98.3 F 96 16 144/62 H 96 08/04/20 14:35 08/04/20 14:35 08/04/20 14:35 08/04/20 14:35 08/04/20 14:35 General: Alert, Cooperative, No apparent distress HEENT: Atraumatic, PERRLA, EOMI, Normocephalic Oral: Dry Mucosa Neck: Supple, No JVD, Negative Carotid Bruits Lungs: Clear to auscultation, Diminished Cardiovascular: Regular rate, No murmurs Abdomen: Soft, Non Tender, Non-Distended, Hypoactive Bowel Sounds Extremities: No clubbing, No cyanosis, No edema, Capillary Refill Less than 3 Seconds Skin: No rashes, No breakdown Musculoskeletal: No Tenderness to Palpation of Joints or Extremities Neurological: Cranial nerves II-XII grossly intact, Neuro grossly intact Psych/Mental Status: Normal Affect, Appropriate Plan is continue n.p.o. for now until cleared by general surgery for fluids. Continue hydration with IV fluids. General surgery on board. She had leukocytosis on admission which was likely reactive and is resolved. SCDs for DVT prophylaxis. Patient is on Eliquis on account of A. fib but this currently on hold. To resume when okay with surgery. Rest as per GILBERT Love's note which I reviewed and endorsed. Inpatient E&M: 05324 Subs Hosp L2
--- NOTE | 2020-08-04 15:11 | CASEMGMT ---
Social Work Note SW received update that pt has CM Marisa Siegel for Waiver Program. KELLY received call from Marisa Siegel. KELLY updated Marisa Siegel on pt's admission to [facility]. Marisa states pt is on [facility] Waiver Services and has an emergency response button, home delivered meals, and aide services. Marisa recommends pt returning home with HHC for RN as pt has been having trouble managing diabetes and has been having to manage own medications. Marisa asked to be called ([phone]) when pt is discharged. KELLY updated RN CM that Marisa is recommended HHC for RN. Gabriela Clayton NECK BAND OPERATOR, SKID WORKER
[2020-08-04 17:05] LABS: Bedside Glucose 326 mg/dL (70-110)
[2020-08-04 17:20] LABS: Bedside Glucose 170 mg/dL (70-110)
[2020-08-04] MEDS: 0.9% Saline Lock 10 ML Syringe IV (22:43)
[2020-08-04] MEDS: Morphine 4 MG/ML Syringe IV (22:43)
[2020-08-04 23:15] LABS: Bedside Glucose 145 mg/dL (70-110)
[2020-08-05] VITALS (12 sets, daily range): BP systolic 142–156; BP diastolic 58–86; PULSE 83–106; RESP 18; TEMP 36.3–37; O2SAT 92–94; BMI 38.3
[2020-08-05] MEDS: 0.9% Normal Saline 1,000 ML 150 ML IV ×2 (00:52→06:48)
[2020-08-05 06:17] LABS: Hemoglobin 12.8 g/dL (12.0-15.0); Mean Corp Hgb Conc 30.5 g/dL (32-36); Mean Corpuscular Hgb 26.2 pg (27.0-32.0); Mean Corpuscular Volume 85.9 fL (81-99); Mean Platelet Vol. 9.8 fl (6.2-12.0); Platelet Count 154 K/mm3 (150-450); RBC Distribution Width CV 14.9 % (11.6-14.6); RBC Distribution Width SD 47.1 fl (35.1-43.9); Red Blood Count 4.89 M/mm3 (4.2-5.4); White Blood Count 6.1 K/mm3 (4.4-11.0)
[2020-08-05] MEDS: Morphine 4 MG/ML Syringe IV (06:42)
[2020-08-05 06:45] LABS: Anion Gap 3 (5-15); BUN 16 mg/dL (7-18); BUN/Creat Ratio 27.7 RATIO (10-20); Calcium,Total 8.1 mg/dL (8.5-10.1); Chloride 115 mmol/L (98-107); Creatinine, Serum 0.58 mg/dL (0.55-1.02); EST Glomerular Filtration Rate 111 mL/min (>60); Est Glom Filt Rate - Afr Amer 135 mL/min (>60); Estimated Creatinine Clearance 90.53 ml/min; Glucose 127 mg/dL (74-106); Potassium 3.7 mmol/L (3.5-5.1); Sodium Level 141 mmol/L (136-145)
[2020-08-05 07:10] LABS: Bedside Glucose 123 mg/dL (70-110)
--- NOTE | 2020-08-05 08:57 | PN.SURG_ITS ---
Subjective: Patient denies any abdominal pain, ambulating last night states she has had a little bit of flatus. Patient also states she is hungry - Physical Exam Vitals/I&O's: Vital Signs Temp Pulse Resp BP Pulse Ox 98.6 F 95 18 156/86 H 93 08/05/20 07:35 08/05/20 07:35 08/05/20 07:35 08/05/20 07:35 08/05/20 07:35 Oxygen Flow Rate (L/min) 2 Oxygen Delivery Method Nasal Cannula Weight: 219 lb 15.988 oz Body Mass Index (BMI) 35.5 Finger Stick Blood Glucose 307 Intake and Output for Last 24 Hours 08/03/20 08/04/20 08/05/20 23:59 23:59 23:59 Intake Total 3300 / 3300 4371.67 / 4371.67 970 / 970 Output Total 1400 / 1400 900 / 900 Balance 1900 / 1900 3471.67 / 3471.67 970 / 970 General: Alert, Oriented x3, Cooperative, No apparent distress HEENT: Atraumatic Cardiovascular: Regular rate Abdomen: Soft, Non Tender, Non-Distended, - - Incision dressed clean dry and intact Microbiology Past 72 Hours 08/03/20 20:51 Interface Orders SARS-CoV-2 Antigen (Rapid) - Final Laboratory Results 08/04/20 06:51: POC Glucose 326 H 08/04/20 12:10: POC Glucose 260 H 08/04/20 17:13: POC Glucose 170 H 08/04/20 23:13: POC Glucose 145 H 08/05/20 06:00: WBC 6.1, RBC 4.89, Hgb 12.8, Hct 42.0, MCV 85.9, MCH 26.2 L, MCHC 30.5 L, RDW Std Deviation 47.1 H, RDW Coeff of Faby 14.9 H, Plt Count 154, MPV 9.8 08/05/20 06:00: Sodium 141, Potassium 3.7, Chloride 115 H, Carbon Dioxide 23.0, Anion Gap 3 L, BUN 16, Creatinine 0.58, Estim Creat Clear Calc 90.53, Est GFR (MDRD) Af Amer 135, Est GFR (MDRD) Non-Af 111, BUN/Creatinine Ratio 27.7 H, Glucose 127 H, Calcium 8.1 L 08/05/20 06:41: POC Glucose 123 H Current Medications Hydralazine HCl (Hydralazine 20 Mg/Ml Vial) 10 mg IV Q4H PRN PRN PRN Reason: BLOOD PRESSURE Sodium Chloride () 1,000 mls @ 100 mls/hr IV .Q10H [facility] Last Infusion: 08/05/20 07:20 Dose: 100 mls/hr Documented by: Pantoprazole Sodium 40 mg/ (Sodium Chloride) 110 mls @ 330 mls/hr IV Q12 [facility] Last Infusion: 08/04/20 21:42 Dose: Infused Documented by: Insulin Human Lispro (Insulin Lispro 100 Unit/Ml Insuln.Pen) 0 unit SC Q6 [facility]; Protocol Last Admin: 08/05/20 06:41 Dose: Not Given Documented by: Morphine Sulfate (Morphine 2 Mg/Ml Syringe) 2 - 4 mg IV Q3H PRN PRN PRN Reason: Pain Score 6-10 Morphine Sulfate (Morphine 4 Mg/Ml Syringe) 2 - 4 mg IV Q3H PRN PRN PRN Reason: Pain Score 6-10 Last Admin: 08/05/20 06:42 Dose: 4 mg Documented by: Ondansetron HCl (Ondansetron 4 Mg/2 Ml Vial) 4 mg IV Q8H PRN PRN PRN Reason: NAUSEA/VOMITING Prochlorperazine Edisylate (Prochlorperazine 10 Mg/2 Ml Vial) 5 mg IV Q4H PRN PRN PRN Reason: Breakthrough nausea/vomiting Sodium Chloride (0.9% Saline Lock 10 Ml Syringe) 10 - 40 ml IV UD PRN PRN Reason: SALINE FLUSH Last Admin: 08/04/20 22:43 Dose: 10 ml Documented by: Medical Necessity - Tobacco Use Smoking Status: Former smoker Tobacco Use: Cigarettes Assessment/Plan All Active Problems Diverticular disease of intestine with perforation and abscess (Resolved) Left flank pain (Resolved) Necrotizing soft tissue infection (Resolved) Nonhealing skin ulcer (Resolved) Pyelonephritis (Resolved) 64-year-old female with small bowel obstruction, Incarcerated incisional hernia, postop day 2 repair of incarcerated incisional hernia 1. Will advance to clears the patient does have increased bowel function will advance to Diabetic diet 2. Continue ambulation An Shah M.D. Pager: [phone] [facility] [address] [place] [address], [address] [place] [address] Office: [phone]
[2020-08-05 11:11] LABS: Bedside Glucose 147 mg/dL (70-110)
--- NOTE | 2020-08-05 11:50 | PN_ITS ---
Subjective: Patient seen and examined. She says she wanted to go home and she was hungry. She had no other complaints. She does not think she is passed any gas. Review of symptoms otherwise negative. She has remained hemodynamically stable. General surgery is on board. Vitals/I&O's: Vital Signs Temp Pulse Resp BP Pulse Ox 97.8 F 86 18 142/58 H 94 08/05/20 09:49 08/05/20 09:49 08/05/20 09:49 08/05/20 09:49 08/05/20 09:49 Oxygen Flow Rate (L/min) 2 Oxygen Delivery Method Nasal Cannula Weight: 219 lb 15.988 oz Body Mass Index (BMI) 35.5 Finger Stick Blood Glucose 307 Intake and Output for Last 24 Hours 08/03/20 08/04/20 08/05/20 23:59 23:59 23:59 Intake Total 3300 / 3300 4371.67 / 4371.67 1326.67 / 1326.67 Output Total 1400 / 1400 900 / 900 Balance 1900 / 1900 3471.67 / 3471.67 1326.67 / 1326.67 General: Alert, Cooperative, No apparent distress HEENT: Atraumatic, PERRLA, EOMI, Normocephalic Oral: Dry Mucosa Neck: Supple, No JVD, Negative Carotid Bruits Lungs: Clear to auscultation, Diminished Cardiovascular: Regular rate, No murmurs Abdomen: Soft, Non Tender, Non-Distended, Hypoactive Bowel Sounds; dressing at laparoscopic site in place Extremities: No clubbing, No cyanosis, No edema, Capillary Refill Less than 3 Se conds Skin: No rashes, No breakdown Musculoskeletal: No Tenderness to Palpation of Joints or Extremities Neurological: Cranial nerves II-XII grossly intact, Neuro grossly intact Psych/Mental Status: Normal Affect, Appropriate Microbiology Past 72 Hours 08/03/20 20:51 Interface Orders SARS-CoV-2 Antigen (Rapid) - Final Laboratory Results 08/04/20 06:51: POC Glucose 326 H 08/04/20 12:10: POC Glucose 260 H 08/04/20 17:13: POC Glucose 170 H 08/04/20 23:13: POC Glucose 145 H 08/05/20 06:00: WBC 6.1, RBC 4.89, Hgb 12.8, Hct 42.0, MCV 85.9, MCH 26.2 L, MCHC 30.5 L, RDW Std Deviation 47.1 H, RDW Coeff of Faby 14.9 H, Plt Count 154, MPV 9.8 08/05/20 06:00: Sodium 141, Potassium 3.7, Chloride 115 H, Carbon Dioxide 23.0, Anion Gap 3 L, BUN 16, Creatinine 0.58, Estim Creat Clear Calc 90.53, Est GFR (MDRD) Af Amer 135, Est GFR (MDRD) Non-Af 111, BUN/Creatinine Ratio 27.7 H, Glucose 127 H, Calcium 8.1 L 08/05/20 06:41: POC Glucose 123 H 08/05/20 10:59: POC Glucose 147 H Current Medications Hydralazine HCl (Hydralazine 20 Mg/Ml Vial) 10 mg IV Q4H PRN PRN PRN Reason: BLOOD PRESSURE Sodium Chloride () 1,000 mls @ 100 mls/hr IV .Q10H [facility] Last Infusion: 08/05/20 10:10 Dose: 100 mls/hr Documented by: Pantoprazole Sodium 40 mg/ (Sodium Chloride) 110 mls @ 330 mls/hr IV Q12 [facility] Last Infusion: 08/05/20 10:10 Dose: Infused Documented by: Insulin Human Lispro (Insulin Lispro 100 Unit/Ml Insuln.Pen) 0 unit SC Q6 [facility]; Protocol Last Admin: 08/05/20 11:07 Dose: Not Given Documented by: Morphine Sulfate (Morphine 2 Mg/Ml Syringe) 2 - 4 mg IV Q3H PRN PRN PRN Reason: Pain Score 6-10 Morphine Sulfate (Morphine 4 Mg/Ml Syringe) 2 - 4 mg IV Q3H PRN PRN PRN Reason: Pain Score 6-10 Last Admin: 08/05/20 06:42 Dose: 4 mg Documented by: Ondansetron HCl (Ondansetron 4 Mg/2 Ml Vial) 4 mg IV Q8H PRN PRN PRN Reason: NAUSEA/VOMITING Prochlorperazine Edisylate (Prochlorperazine 10 Mg/2 Ml Vial) 5 mg IV Q4H PRN PRN PRN Reason: Breakthrough nausea/vomiting Sodium Chloride (0.9% Saline Lock 10 Ml Syringe) 10 - 40 ml IV UD PRN PRN Reason: SALINE FLUSH Last Admin: 08/04/20 22:43 Dose: 10 ml Documented by: STROKE Vital Signs/Narrative: Vital Signs Temp Pulse Resp BP Pulse Ox 08/05/20 09:49 97.8 F 86 18 142/58 H 94 Medical Necessity - Tobacco Use Smoking Status: Former smoker Tobacco Use: Cigarettes Assessment/Plan All Active Problems Diverticular disease of intestine with perforation and abscess (Resolved) Left flank pain (Resolved) Necrotizing soft tissue infection (Resolved) Nonhealing skin ulcer (Resolved) Pyelonephritis (Resolved) # Small bowel obstruction * Due to ventral hernia. S/p hernia repair with lysis of adhesion on 08/03/2020. * NG tube is out. Patient been advanced to clear liquids today by general surgery. * Diet to be advanced as per general surgery. * # Ventral hernia s/p repair: as above #History of CVA: On statin. #Paroxysmal A. fib: Heart rate well controlled. Eliquis on hold on account of surgery. Will resume Eliquis today. #Type 2 diabetes mellitus: Oral meds on hold as she has been been on only sips and chips. Accuchecks ACHS. on insulin sliding scale. # Hyperlipidemia: on statin # GERD: on PPI DVT prophylaxis; resume eliquis today Inpatient E&M: 99092 [facility] H[facility] L3
[2020-08-05 12:11] LABS: Pathologist Review May foll
[2020-08-05] MEDS: Insulin Lispro 100 UNIT/ML INSULN.PEN SC ×2 (15:50→23:23)
[2020-08-05] MEDS: 0.9% Normal Saline 1,000 ML 100 ML IV (15:54)
--- NOTE | 2020-08-05 15:59 | NURSING ---
encouraged pt to ambulate in halls with nursing staff. pt declined at this time.
[2020-08-05 16:00] LABS: Bedside Glucose 231 mg/dL (70-110)
--- NOTE | 2020-08-05 21:30 | NURSING ---
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
[2020-08-05 23:31] LABS: Bedside Glucose 166 mg/dL (70-110)
--- NOTE | 2020-08-05 23:40 | NURSING ---
Pt up ambulating in [place] with [employer]SE SE[employer]ER at this time.
[2020-08-06] MEDS: 0.9% Normal Saline 1,000 ML 100 ML IV (01:07)
[2020-08-06 02:12] VITALS: BP 151/66; PULSE 86; RESP 18; TEMP 36.8; O2SAT 94
[2020-08-06 03:10] VITALS: PULSE 82
[2020-08-06] MEDS: Insulin Lispro 100 UNIT/ML INSULN.PEN SC ×2 (05:36→12:30)
[2020-08-06 07:09] LABS: Absolute Lymphocyte Count 1.44 X10^3/uL (0.83-4.51); Absolute Neutrophil Count 3.3 X10^3/uL (2.0-7.7); Basophil# 0.03 X10^3/uL; Basophil% 0.6 % (0-1); Eosinophil# 0.08 X10^3/uL; Eosinophils% 1.5 % (0-5); Hematocrit 41.3 % (37-47); Hemoglobin 13.1 g/dL (12.0-15.0); Lymphocyte # 1.44 X10^3/ul (4.0); Lymphocyte % 26.9 % (19-41); Mean Corp Hgb Conc 31.7 g/dL (32-36); Mean Corpuscular Hgb 26.1 pg (27.0-32.0); Mean Corpuscular Volume 82.3 fL (81-99); Mean Platelet Vol. 9.7 fl (6.2-12.0); Monocyte# 0.52 X10^3/uL; Monocyte% 9.7 % (0-10); NRBC Flagged by Analyzer 0 % (0-5); Neutrophil # 3.25 X10^3/uL (2.7-7.7); Neutrophil % 60.6 % (47-70); Platelet Count 176 K/mm3 (150-450); RBC Distribution Width CV 14.5 % (11.6-14.6); RBC Distribution Width SD 43.3 fl (35.1-43.9); Red Blood Count 5.02 M/mm3 (4.2-5.4); White Blood Count 5.4 K/mm3 (4.4-11.0)
[2020-08-06 07:35] LABS: Anion Gap 5 (5-15); BUN 7 mg/dL (7-18); Calcium,Total 8.6 mg/dL (8.5-10.1); Chloride 106 mmol/L (98-107); Creatinine, Serum 0.44 mg/dL (0.55-1.02); EST Glomerular Filtration Rate 153 mL/min (>60); Est Glom Filt Rate - Afr Amer 186 mL/min (>60); Estimated Creatinine Clearance 119.33 ml/min; Glucose 144 mg/dL (74-106); Potassium 3.2 mmol/L (3.5-5.1); Sodium Level 138 mmol/L (136-145)
[2020-08-06 07:56] VITALS: PULSE 84
[2020-08-06 08:33] VITALS: BP 149/69; PULSE 85; RESP 16; TEMP 37.2; O2SAT 94
[2020-08-06 08:33] LABS: Bedside Glucose 157 mg/dL (70-110)
--- NOTE | 2020-08-06 08:54 | PN.SURG_ITS ---
Subjective: Patient states she is ready to go home, having flatus denies any abdominal pain tolerating clears. Patient states she had a very small bowel movement yesterday however initially she told me she did not have a bowel movement until I told her she would need that in order to have more food. Patient states she goes once a week and is not interested in a suppository or liquid laxative but would take a pill. - Physical Exam Vitals/I&O's: Vital Signs Temp Pulse Resp BP Pulse Ox 98.9 F 85 16 149/69 H 94 08/06/20 08:33 08/06/20 08:33 08/06/20 08:33 08/06/20 08:33 08/06/20 08:33 Oxygen Flow Rate (L/min) 2 Oxygen Delivery Method Nasal Cannula Weight: 219 lb 15.988 oz Body Mass Index (BMI) 35.5 Finger Stick Blood Glucose 307 Intake and Output for Last 24 Hours 08/04/20 08/05/20 08/06/20 23:59 23:59 23:59 Intake Total 4371.67 / 4371.67 3073.33 / 3273.33 1516.67 / 1516.67 Output Total 900 / 900 650 / 650 Balance 3471.67 / 3471.67 3073.33 / 3273.33 866.67 / 866.67 General: Alert, Oriented x3, Cooperative, No apparent distress HEENT: Atraumatic Abdomen: Soft, Non Tender, Non-Distended, - - Incision clean dry and dressed Microbiology Past 72 Hours 08/03/20 20:51 Interface Orders SARS-CoV-2 Antigen (Rapid) - Final Laboratory Results 08/05/20 06:00: Diff Path Review November08/05/20 10:59: POC Glucose 147 H 08/05/20 15:49: POC Glucose 231 H 08/05/20 23:22: POC Glucose 166 H 08/06/20 05:35: POC Glucose 157 H 08/06/20 06:25: WBC 5.4, RBC 5.02, Hgb 13.1, Hct 41.3, MCV 82.3, MCH 26.1 L, MCHC 31.7 L, RDW Std Deviation 43.3, RDW Coeff of Faby 14.5, Plt Count 176, MPV 9.7, Immature Gran % (Auto) 0.700, Neut % (Auto) 60.6, Lymph % (Auto) 26.9, Brantley % (Auto) 9.7, Eos % (Auto) 1.5, Baso % (Auto) 0.6, Absolute Neuts (auto) 3.3, Absolute Lymphs (auto) 1.44, Nucleated RBC % 0 08/06/20 06:25: Sodium 138, Potassium 3.2 L, Chloride 106, Carbon Dioxide 27.0, Anion Gap 5, BUN 7, Creatinine 0.44 L, Estim Creat Clear Calc 119.33, Est GFR (MDRD) Af Amer 186, Est GFR (MDRD) Non-Af 153, BUN/Creatinine Ratio 16.0, Glucose 144 H, Calcium 8.6 Current Medications Hydralazine HCl (Hydralazine 20 Mg/Ml Vial) 10 mg IV Q4H PRN PRN PRN Reason: BLOOD PRESSURE Sodium Chloride () 1,000 mls @ 100 mls/hr IV .Q10H [facility] Last Infusion: 08/06/20 08:32 Dose: 0 mls/hr Documented by: Pantoprazole Sodium 40 mg/ (Sodium Chloride) 110 mls @ 330 mls/hr IV Q12 [facility] Last Admin: 08/06/20 08:29 Dose: 330 mls/hr Documented by: Insulin Human Lispro (Insulin Lispro 100 Unit/Ml Insuln.Pen) 0 unit SC Q6 [facility]; Protocol Last Admin: 08/06/20 05:36 Dose: 2 units Documented by: Morphine Sulfate (Morphine 2 Mg/Ml Syringe) 2 - 4 mg IV Q3H PRN PRN PRN Reason: Pain Score 6-10 Morphine Sulfate (Morphine 4 Mg/Ml Syringe) 2 - 4 mg IV Q3H PRN PRN PRN Reason: Pain Score 6-10 Last Admin: 08/05/20 06:42 Dose: 4 mg Documented by: Ondansetron HCl (Ondansetron 4 Mg/2 Ml Vial) 4 mg IV Q8H PRN PRN PRN Reason: NAUSEA/VOMITING Prochlorperazine Edisylate (Prochlorperazine 10 Mg/2 Ml Vial) 5 mg IV Q4H PRN PRN PRN Reason: Breakthrough nausea/vomiting Sodium Chloride (0.9% Saline Lock 10 Ml Syringe) 10 - 40 ml IV UD PRN PRN Reason: SALINE FLUSH Last Admin: 08/04/20 22:43 Dose: 10 ml Documented by: Medical Necessity - Tobacco Use Smoking Status: Former smoker Tobacco Use: Cigarettes Assessment/Plan All Active Problems Diverticular disease of intestine with perforation and abscess (Resolved) Left flank pain (Resolved) Necrotizing soft tissue infection (Resolved) Nonhealing skin ulcer (Resolved) Pyelonephritis (Resolved) 64-year-old female with small bowel obstruction, Incarcerated incisional hernia, postop day 3 repair of incarcerated incisional hernia 1. Unsure if patient really had a bowel movement-- will check a KUB before giving a laxative and advancing to regular diet. 2. Continue ambulation?Patient did not ambulate at all during the day yesterday but did ambulate twice last night. An Shah M.D. Pager: [phone] [facility] [address] [place] [address], [address] [place] [address] Office: [phone]
[2020-08-06 10:49] VITALS: BP 139/67; PULSE 92; RESP 18; TEMP 36.8; O2SAT 92
[2020-08-06] MEDS: Docusate Sodium 100 MG Capsule PO (10:55)
[2020-08-06 11:30] LABS: Bedside Glucose 210 mg/dL (70-110)
--- NOTE | 2020-08-06 11:40 | RAD_ITS ---
STUDY: X-RAY - ABDOMEN/PELVIS REASON FOR EXAM: Female, 64 years old. Constipation, Hx small bowel obstruction, ventral hernia TECHNIQUE: Single AP view of the abdomen / pelvis. COMPARISON: Comparison is made with prior study dated 08/03/2020. FINDINGS: Gas and fecal material is seen throughout the colon. The small bowel pattern is unremarkable. The visualized liver, spleen and kidneys are grossly normal in size and morphology. Normal soft tissue structures. There are diffuse degenerative changes of the visualized lumbar spine. RAD/Abdomen Single View (Portable) IMPRESSION: Nonspecific bowel gas pattern. Electronically Signed: Yonas Stroud, at 14:15 EST , Service support ,
[2020-08-06] MEDS: Bisacodyl 5 MG Tablet 10 MG PO (12:29)
[2020-08-06 13:17] VITALS: BP 151/74; PULSE 79; RESP 16; TEMP 37.4; O2SAT 95
--- NOTE | 2020-08-06 14:41 | DCINST_ITS ---
- Discharge Diagnoses Current Active Problems: Current Active and Chronic Problems Obstructive sleep apnea (Chronic) Diabetes mellitus (Chronic) Hypertension (Chronic) Hyperlipidemia (Chronic) Obesity (BMI 30-39.9) (Chronic) GERD (gastroesophageal reflux disease) (Chronic) Embolic stroke (Chronic) Intraventricular hemorrhage (Chronic) Atrial fibrillation (Chronic) started eliquis 10/23 You will use the following diet at home:: Calorie/Carbohydrate Controlled (specify 1200, 1400, etc), Cardiac Your food should be the consistency of: Regular Your liquids should be the consistency of: Regular/Thin Discharge Activity: Return to Normal Activity Weight Bearing Status: Weight bearing as tolerated Call your doctor if you observe: Fever of 101 or Higher, Shortness of breath, Dizziness, Uncontrolled pain Instructions: Small Bowel Obstruction Allergies/Adverse Reactions: Allergies iodine Allergy (Mild, Verified 08/03/20 14:30) Itching Penicillins Allergy (Mild, Verified 08/03/20 14:30) Itching Medications to take at Discharge Omeprazole [Prilosec] 20 mg PO DAILY 05/29/14 Amlodipine Besylate [Norvasc] 10 mg PO DAILY 10/04/16 Apixaban [Eliquis] 5 mg PO BID 10/04/16 Atorvastatin Calcium [Lipitor] 80 mg PO QHS tablet 10/25/16 Lisinopril [Zestril] 40 mg PO DAILY tablet 10/25/16 glipiZIDE [Glucotrol] 10 mg PO BID 08/03/20 metFORMIN HCl [Glucophage] 1,000 mg PO BIDCM 08/03/20 Primary Care Physician: Nathaniel Gaines MD [Primary Care Provider] - Please follow up with your Primary Care Physician in: 1-2 weeks Test Results: Test results from this visit will be discussed in further detail at your follow- up appointment, if applicable. Please Follow Up With: An Shah MD When: 2 weeks Proposed Discharge Date: 08/06/20
--- NOTE | 2020-08-06 14:48 | PCM.DC.SUM ---
Discharge Date and Diagnosis Date of Admission: 08/03/20 Date of Discharge: 08/06/20 - Primary Discharge Diagnosis Acute Problems: small bowel obstruction due to ventral hernia - Secondary Discharge Diagnosis Chronic Problems: Chronic Problems Obstructive sleep apnea (Chronic) Diabetes mellitus (Chronic) Hypertension (Chronic) Hyperlipidemia (Chronic) Obesity (BMI 30-39.9) (Chronic) GERD (gastroesophageal reflux disease) (Chronic) Embolic stroke (Chronic) Intraventricular hemorrhage (Chronic) Atrial fibrillation (Chronic) started [facility] 10/23 Hospital Course and Treatment Imaging Results: 08/06/20 11:40 KUB [Abdomen Single View (Portable)] [RAD] Urgent Diagnostic Data Abdomen/Pelvis CT 08/03/20 14:45 IMPRESSION: Small bowel obstruction due to a ventral wall hernia in the lower right anterior abdominal wall. Fluid distention of the stomach. Electronically Signed: Yonas Strodu, at 15:46 EST , Service support , Chest X-Ray 08/03/20 20:20 IMPRESSION: Mildly prominent interstitial lung markings are nonspecific but may be seen in the setting of viral pneumonia versus atelectasis. Electronically Signed: Jewel Taylor, at 22:06 EST Tel , Service support , KUB X-Ray 08/06/20 11:40 IMPRESSION: Nonspecific bowel gas pattern. Electronically Signed: Yonas Stroud, at 14:15 EST , Service support , general surgery- Dr Shah Operations: herniorrhaphy, - Procedures: None Summary of Care Provided: The patient is a 64 year old F admitted through the ED on 08/03/2020 with a complaint of abdominal pain, nausea and vomiting. Pain was mainly in the middle of the abdomen and she denied any diarrhea or constipation. She did report a history of abdominal surgery but would not say exactly what it was and only said it was done in [facility]. Her past medical history was as outlined. Imaging done showed acute small bowel obstruction due to ventral hernia which could not be reduced in the ED. General surgery was consulted and she was admitted and an NG tube was placed and she was started on pain medication and IV antiemetics. She had repair of the ventral incisional hernia with lysis of adhesion and release of small bowel obstruction on 08/03/2020. Postop course was uncomplicated and uneventful. She was transitioned to clear liquid diets and this was advanced slowly to regular diet which she tolerated. She had a KUB on 08/06/2020 which showed nonspecific bowel gas pattern. She remained stable and was discharged home on 08/06/2020. She is follow-up with her primary care doctor and is to follow-up with general surgery in 2 weeks time. Seen and examined prior to discharge. She had no complaints and wanted to be discharged home. Review of symptoms otherwise negative. Labs and vitals reviewed. Medication reviewed and reconciled. O/E: Vital Signs Temp Pulse Resp BP Pulse Ox 99.4 F H 79 16 151/74 H 95 08/06/20 13:17 08/06/20 13:17 08/06/20 13:17 08/06/20 13:17 08/06/20 13:17 General: Alert, Cooperative, No apparent distress HEENT: Atraumatic, PERRLA, EOMI, Normocephalic Oral: Dry Mucosa Neck: Supple, No JVD, Negative Carotid Bruits Lungs: Clear to auscultation, Diminished Cardiovascular: Regular rate, No murmurs Abdomen: Soft, Non Tender, Non-Distended, Hypoactive Bowel Sounds; dressing at laparoscopic site in place Extremities: No clubbing, No cyanosis, No edema, Capillary Refill Less than 3 Seconds Skin: No rashes, No breakdown Musculoskeletal: No Tenderness to Palpation of Joints or Extremities Neurological: Cranial nerves II-XII grossly intact, Neuro grossly intact Psych/Mental Status: Normal Affect, Appropriate Plan is for discharge home today. - Physical Exam Vitals/I&O's: Vital Signs Temp Pulse Resp BP Pulse Ox 99.4 F H 79 16 151/74 H 95 08/06/20 13:17 08/06/20 13:17 08/06/20 13:17 08/06/20 13:17 08/06/20 13:17 Oxygen Flow Rate (L/min) 2 Oxygen Delivery Method Room Air Weight: 219 lb 15.988 oz Body Mass Index (BMI) 35.5 Finger Stick Blood Glucose 307 Intake and Output for Last 24 Hours 08/04/20 08/05/20 08/06/20 23:59 23:59 23:59 Intake Total 4371.67 / 4371.67 3073.33 / 3273.33 2128.34 / 2128.34 Output Total 900 / 900 650 / 650 Balance 3471.67 / 3471.67 3073.33 / 3273.33 1478.34 / 1478.34 Microbiology Past 72 Hours 08/03/20 20:51 Interface Orders SARS-CoV-2 Antigen (Rapid) - Final Laboratory Results 08/05/20 15:49: POC Glucose 231 H 08/05/20 23:22: POC Glucose 166 H 08/06/20 05:35: POC Glucose 157 H 08/06/20 06:25: WBC 5.4, RBC 5.02, Hgb 13.1, Hct 41.3, MCV 82.3, MCH 26.1 L, MCHC 31.7 L, RDW Std Deviation 43.3, RDW Coeff of Faby 14.5, Plt Count 176, MPV 9.7, Immature Gran % (Auto) 0.700, Neut % (Auto) 60.6, Lymph % (Auto) 26.9, Archer % (Auto) 9.7, Eos % (Auto) 1.5, Baso % (Auto) 0.6, Absolute Neuts (auto) 3.3, Absolute Lymphs (auto) 1.44, Nucleated RBC % 0 08/06/20 06:25: Sodium 138, Potassium 3.2 L, Chloride 106, Carbon Dioxide 27.0, Anion Gap 5, BUN 7, Creatinine 0.44 L, Estim Creat Clear Calc 119.33, Est GFR (MDRD) Af Amer 186, Est GFR (MDRD) Non-Af 153, BUN/Creatinine Ratio 16.0, Glucose 144 H, Calcium 8.6 08/06/20 11:20: POC Glucose 210 H Current Medications Docusate Sodium (Docusate Sodium 100 Mg Capsule) 100 mg PO BID [facility] Last Admin: 08/06/20 10:55 Dose: 100 mg Documented by: Hydralazine HCl (Hydralazine 20 Mg/Ml Vial) 10 mg IV Q4H PRN PRN PRN Reason: BLOOD PRESSURE Pantoprazole Sodium 40 mg/ (Sodium Chloride) 110 mls @ 330 mls/hr IV Q12 [facility] Last Infusion: 08/06/20 09:04 Dose: Infused Documented by: Insulin Human Lispro (Insulin Lispro 100 Unit/Ml Insuln.Pen) 0 unit SC Q6 [facility]; Protocol Last Admin: 08/06/20 12:30 Dose: 4 units Documented by: Morphine Sulfate (Morphine 2 Mg/Ml Syringe) 2 - 4 mg IV Q3H PRN PRN PRN Reason: Pain Score 6-10 Morphine Sulfate (Morphine 4 Mg/Ml Syringe) 2 - 4 mg IV Q3H PRN PRN PRN Reason: Pain Score 6-10 Last Admin: 08/05/20 06:42 Dose: 4 mg Documented by: Ondansetron HCl (Ondansetron 4 Mg/2 Ml Vial) 4 mg IV Q8H PRN PRN PRN Reason: NAUSEA/VOMITING Prochlorperazine Edisylate (Prochlorperazine 10 Mg/2 Ml Vial) 5 mg IV Q4H PRN PRN PRN Reason: Breakthrough nausea/vomiting Sodium Chloride (0.9% Saline Lock 10 Ml Syringe) 10 - 40 ml IV UD PRN PRN Reason: SALINE FLUSH Last Admin: 08/04/20 22:43 Dose: 10 ml Documented by: Discharge Diet: Low fat/ Low Cholesterol Discharge Activity: Return to Normal Activity Weight Bearing Status: Weight bearing as tolerated Call your doctor if you observe: Fever of 101 or Higher, Shortness of breath, Dizziness, Uncontrolled pain Home Medications: Medications to take at Discharge Omeprazole [Prilosec] 20 mg PO DAILY 05/29/14 Amlodipine Besylate [Norvasc] 10 mg PO DAILY 10/04/16 Apixaban [Eliquis] 5 mg PO BID 10/04/16 Atorvastatin Calcium [Lipitor] 80 mg PO QHS tablet 10/25/16 Lisinopril [Zestril] 40 mg PO DAILY tablet 10/25/16 glipiZIDE [Glucotrol] 10 mg PO BID 08/03/20 metFORMIN HCl [Glucophage] 1,000 mg PO BIDCM 08/03/20 Primary Care Physician: Nathaniel Gaines MD [Primary Care Provider] - Please follow up with your Primary Care Physician in: 1-2 weeks Please Follow Up With: An Shah MD When: 2 weeks Patient Instructions: Small Bowel Obstruction Disposition: Home Minutes spent on discharge:: 40 Patient Condition:: Stable Medical Necessity - Tobacco Use Smoking Status: Former smoker Tobacco Use: Cigarettes Meaningful Use Info Meaningful Use Diagnoses (Choose all that apply): None applicable Inpatient E&M: 79623 Disch Hosp
--- NOTE | 2020-08-06 14:55 | CASEMGMT ---
Addendum entered by Gabriela Clayton 08/06/20 15:40: Pt agreeable to RN HHC, RN RICHA arranged it through [facility]. KELLY did write on fax coversheet that pt was arranged for RN through [facility]. Original Note: Social Work Note Pt discharging home today. KELLY placed a call to pt's CM Marisa Siegel and updated her that pt is going to be discharged home. Marisa asked if pt was set up with RN for HHC. KELLY informed Marisa that per AYE CHAUDHRY, pt refused HHC. Marisa states she spoke with pt today and pt was agreeable to at least an RN for HHC. KELLY updated RN RICHA, who will speak with pt. KELLY faxed discharge paperwork to Marisa Siegel. Gabriela Clayton PROGRAM SUPPORT CLERK, UTILIZATION COORDINATOR
--- NOTE | 2020-08-06 15:10 | CASEMGMT ---
AYE CHAUDHRY NOTE: Pt being discharged home. AYE CHAUDHRY made aware pt is now agreeable to [facility] for SN. AYE CHAUDHRY to room to talk with pt. She confirms she would be agreeable to [facility] and provided w/list of local [facility] agencies w/quality performance measures and pt denies having preference of [facility] agency. Call placed to [facility] and spoke w/Mehnaz and referral made for SN. She was made aware pt being discharged now. She states they are able to accept pt. Referral packet/clinicals/discharge instructions, and d/c summary all faxed to [facility] at this time. Marily LÓPEZ RN, CM
--- NOTE | 2020-08-09 14:19 | CASEMGMT ---
AYE DC PHONE CALL DC DATE: 08/06/20 DC DISPOSITION: Home with [facility] DC DIAGNOSIS: SBO LACE/STRATA: 07/01 F/U APPTS MADE PRIOR TO DC: yes Call to [facility] to verify transition of care to [facility]. Start of care with nursing was 08/08/2020. Karen LÓPEZ RN AC
== END 2020-08-06 15:04 | disposition home or self-care (01) | DRG 336 ==
LOC: ED 15:02 → MS3 18:17
PROVIDERS: Nurse Practitioner Family; Surgery; Emergency Provider Student in an Organized Health Care Education/Training Program; PCP Family Medicine; Visit Provider Student in an Organized Health Care Education/Training Program
PROC: 0DN80ZZ Release Small Intestine, Open Approach (ICD-10-PCS; principal; 2020-08-03 21:30)
DX: K43.0 Incisional hernia with obstruction, without gangrene (principal); K56.609 Unspecified intestinal obstruction, unspecified as to partial versus complete obstruction; N39.0 Urinary tract infection, site not specified; G47.33 Obstructive sleep apnea (adult) (pediatric); E11.9 Type 2 diabetes mellitus without complications; K21.9 Gastro-esophageal reflux disease without esophagitis; E78.5 Hyperlipidemia, unspecified; I10 Essential (primary) hypertension; I48.0 Paroxysmal atrial fibrillation; E66.9 Obesity, unspecified; Z68.38 Body mass index [BMI] 38.0-38.9, adult; Z86.73 Personal history of transient ischemic attack (TIA), and cerebral infarction without residual deficits; Z87.891 Personal history of nicotine dependence; Z79.84 Long term (current) use of oral hypoglycemic drugs; Z79.01 Long term (current) use of anticoagulants; Z79.899 Other long term (current) drug therapy
CPT/HCPCS: 36415; 71045; 74018; 74176; 80048; 80053; 81001; 82962; 83605; 83690; 84132; 85025; 85027; 87426; 88302; 93005; 99285; J7030; J7120; A4216; J0744; J2405

== ENCOUNTER 2020-11-29 18:54 | Emergency (ER) | payer MEDICARE, MEDICAID, SELFPAY ==
[2020-08-03 18:42] VITALS: BMI 35.5
[2020-11-29 18:55] VITALS: BP 139/64; PULSE 96; RESP 20; TEMP 37.1; O2SAT 98; BMI 40.8
--- NOTE | 2020-11-29 19:13 | CT_ITS ---
STUDY: CT BRAIN WITHOUT CONTRAST REASON FOR EXAM: Female, 64 years old. trauma RADIATION DOSAGE (If Supplied By Facility): CTDIvol = ( 44.99 ) mGy, DLP = ( 779.24 ) mGycm TECHNIQUE: Transaxial CT imaging of the brain was performed without administration of intravenous contrast material. Individualized dose optimization techniques were used for this CT. COMPARISON: 05/17/2017. FINDINGS: Normal soft tissue structures. Normal calvarium. There is mild cerebral atrophy with widening of the extra-axial spaces and ventricular dilatation. There are areas of decreased attenuation within the white matter tracts of the supratentorial brain, consistent with microvascular disease changes. There is no intracranial hemorrhage. No acute territorial infarct. Chronic left caudate lacunar infarct. Normal visualized paranasal sinuses. CT/Brain/Head without Contrast IMPRESSION: 1. No acute findings. 2. Chronic left caudate lacunar infarct. 3. Microvascular ischemia. Mild atrophy. Electronically Signed: Johanny Ralph MD at 20:43 EDT Tel , Service support ,
--- NOTE | 2020-11-29 19:13 | CT_ITS ---
STUDY: CT CERVICAL SPINE WITHOUT CONTRAST REASON FOR EXAM: Female, 64 years old. trauma/pain RADIATION DOSAGE (If Supplied By Facility): CTDIvol = ( 27.42 ) mGy, DLP = ( 566.68 ) mGycm TECHNIQUE: High resolution transaxial imaging was performed without contrast material. Sagittal and coronal images were reconstructed. Individualized dose optimization techniques were used for this CT. COMPARISON: None FINDINGS: Normal craniovertebral junction. Normal anterior atlantoaxial articulation. Normal odontoid process. Normal cervical lordosis. Normal vertebral bodies and posterior osseous elements. C2-3: Normal endplates. Normal disc height and morphology. Normal central canal and intervertebral neuroforamina. C3-4: Normal endplates. Normal disc height and morphology. Normal central canal and intervertebral neuroforamina. C4-5: Normal endplates. Normal disc height and morphology. Normal central canal and intervertebral neuroforamina. C5-6: Normal endplates. Normal disc height and morphology. Normal central canal and intervertebral neuroforamina. C6-7: Normal endplates. Normal disc height and morphology. Normal central canal and intervertebral neuroforamina. C7-T1: Normal endplates. Normal disc height and morphology. Normal central canal and intervertebral neuroforamina. Normal visualized soft tissue structures. CT/Spine Cervical without Contras IMPRESSION: Normal unenhanced CT examination of the cervical spine. Electronically Signed: Johanny Ralph MD at 20:45 EDT Tel , Service support ,
--- NOTE | 2020-11-29 19:13 | CT_ITS ---
STUDY: CT FACIAL BONES WITHOUT CONTRAST REASON FOR EXAM: Female, 64 years old. trauma, pain RADIATION DOSAGE (If Supplied By Facility): CTDIvol = ( 29.38 ) mGy, DLP = ( 584.19 ) mGycm TECHNIQUE: The patient was scanned in a multi detector CT scanner. Sagittal and coronal images were reconstructed. Individualized dose optimization techniques were used for this CT. COMPARISON: None. FINDINGS: Normal soft tissue structures. Normal orbital knox and orbital contents. Normal nasal bones and anterior nasal spine. Normal facial bones. There is no demonstrated fracture. Normal visualized paranasal sinuses. CT/Sinus/Facial Bone IMPRESSION: Normal unenhanced CT of the facial bones. Electronically Signed: Johanny Ralph MD at 20:48 EDT Tel , Service support ,
--- NOTE | 2020-11-29 19:16 | EDS_ITS ---
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 She had some bleeding that was transient from her nose. Today she was feeling better, but her nose is sore, she has developed neck pain, and she had persistent intermittent bleeding from her nose. She denies any other injury. She states her vision is a little blurry but denies diplopia. No back pain, no neurologic symptoms in her extremities. She has a medication list with no antiplatelet or anticoagulant medications, she is on Lasix 80 mg but states she does not take that anymore. She does not know why she was on it. [facility] Medical History (Updated 11/29/20 @ 20:[address] Ricci Zhou MD) Atrial fibrillation Diabetes mellitus Embolic stroke GERD (gastroesophageal reflux disease) Hyperlipidemia Hypertension Incarcerated ventral hernia Intraventricular hemorrhage Obesity (BMI 30-39.9) Obstructive sleep apnea Home Medications omeprazole 20 mg PO DAILY 05/29/14 [History Last Taken 08/03/20] amlodipine 10 mg PO DAILY 10/04/16 [History Last Taken 08/03/20] apixaban 5 mg PO BID 10/04/16 [History Last Taken 08/03/20] atorvastatin 80 mg PO QHS tab 10/25/16 [Rx Last Taken 08/02/20] lisinopril 40 mg PO DAILY tab 10/25/16 [Rx Last Taken 08/03/20] glipizide 10 mg PO BID 08/03/20 [History Last Taken 08/03/20] metformin 1,000 mg PO BIDCM 08/03/20 [History Last Taken 08/03/20] Allergy/AdvReac Type Severity Reaction Status Date / Time iodine Allergy Mild Itching Verified 11/29/20 19:22 Penicillins Allergy Mild Itching Verified 11/29/20 19:22 Surgical History S/P repair of ventral hernia Social History (Updated 11/29/20 @ 19:[address] Ricci Zhou MD) household members: none Smoking Status: Former smoker ROS ROS ED Constitutional Constitutional ED: Denies chills or fever(s) Eyes Eyes: Denies change in vision or diplopia ENT ENT ED: Reports as per HPI, epistaxis, facial pain and nose pain; Denies sore throat Cardiovascular Cardiovascular: Denies chest pain or palpitations Respiratory/Chest Respiratory/Chest: Denies cough or dyspnea Gastrointestinal Gastrointestinal: Denies abdominal pain, diarrhea, nausea or vomiting Genitourinary Genitourinary ED: Denies dysuria or hematuria Musculoskeletal Musculoskeletal: Denies back pain Integumentary Denies abscess or rash Neurologic Neurologic: Reports headache(s); Denies paresthesias, seizures, syncope or weakness Psychiatric Psychiatric: Denies anxiety or suicidal thoughts EXAM Physical Exam Const Vital Signs: 11/29/20 18:55 11/29/20 19:20 Temperature 98.7 F Temperature Source Oral Pulse Rate 96 Respiratory Rate 20 H Respiratory Effort Normal Non-Labored Respiratory Depth Normal Respiratory Pattern Normal Blood Pressure 139/64 H Blood Pressure Mean 89 Pulse Ox 98 Oxygen Delivery Method Room Air Room Air Positive well nourished, well developed and obese General Appearance ED: well developed and NAD Nutritional Appearance: obese HEENT Reports moist mucous membranes HEENT Narrative: Facial trauma evident. She has a contusion with swelling and tenderness at the nasal bridge, no active epistaxis, there is bilateral periorbital ecchymosis. She has no bradley sign or CSF otorhinorrhea. No hemotympanum. normocephalic Eyes PERRL and EOMs intact bilaterally Neck Neck Narrative: Tender throughout the cervical spine midline. No other spinal tenderness. No step-off or obvious signs of trauma. Patient is ranging her head slightly until I asked her to discontinue that, nursing places her in a c- collar. General: tenderness Thyroid: thyroid normal Resp normal respiratory effort and clear to auscultation bilaterally Cardio regular rate, regular rhythm and no murmurs GI non-tender and non-distended Auscultation: normoactive bowel sounds Palpation: soft Back/Spine no CVA tenderness General Back: other FROM Extremity normal to inspection and full ROM Extremity Narrative: Small contusion left wrist, nontender. Full range of motion of the wrist. General Extremety ED: Negative for edema, pulses abnormal or tenderness General Extremity: Negative for edema or pulses abnormal Neuro oriented x3, CN's II-XII intact bilaterally and no sensory deficits noted Sensorium / Orientation: awake and alert Motor Exam: strength 5/5 throughout Skin no rashes or lesions noted and no wounds MDM MDM MDM Narrative Medical decision making narrative: As below imaging is all negative for any acute injuries. Patient is ambulatory, GCS 15, offered analgesics and is stable for discharge home. Given that she has been asymptomatic for the last 24 hours or more after this fall, I do not think she needs more work-up at this time. Radiography Diagnostic Testing: Radiology Impression Brain CT 11/29/20 19:13 IMPRESSION: 1. No acute findings. 2. Chronic left caudate lacunar infarct. 3. Microvascular ischemia. Mild atrophy. Electronically Signed: Johanny Ralph MD at 20:43 EDT Tel , Service support , Cervical Spine CT 11/29/20 19:13 IMPRESSION: Normal unenhanced CT examination of the cervical spine. Electronically Signed: Johanny Ralph MD at 20:45 EDT Tel , Service support , Facial/Sinus 11/29/20 19:13 IMPRESSION: Normal unenhanced CT of the facial bones. Electronically Signed: Johanny Ralph MD at 20:48 EDT Tel , Service support , Discharge Plan Triage Chief Complaint: Fall ED Provider: Ricci Zhou Dx/Rx/DC Orders Clinical Impression: Closed head injury without loss of consciousness, Accidental fall, Cervical muscle strain, Contusion of nose Instructions: ED Head Injury (Adult) Prescriptions: No Action omeprazole 20 MG capsule 20 mg PO DAILY RF: 0 amlodipine 10 MG tablet 10 mg PO DAILY RF: 0 apixaban 5 MG tablet 5 mg PO BID RF: 0 atorvastatin 80 MG tablet 80 mg PO QHS RF: 0 lisinopril 40 MG tablet 40 mg PO DAILY RF: 0 glipizide 10 MG tablet 10 mg PO BID RF: 0 metformin 1,000 MG tablet 1,000 mg PO BIDCM RF: 0 Primary Care Provider: Nathaniel Gaines Referrals: Nathaniel Gaines MD [Primary Care Provider] - As Needed Disposition Disposition: Home, self care
[2020-11-29 21:37] VITALS: BP 145/75; PULSE 93; RESP 16
[2020-11-29] MEDS: traMADol 50 MG Tablet PO (21:37)
== END 2020-11-29 21:40 | disposition home or self-care (01) ==
PROVIDERS: Emergency Provider Emergency Medicine; PCP Family Medicine
DX: S00.33XA Contusion of nose, initial encounter (principal); S00.12XA Contusion of left eyelid and periocular area, initial encounter; S00.11XA Contusion of right eyelid and periocular area, initial encounter; S16.1XXA Strain of muscle, fascia and tendon at neck level, initial encounter; S60.212A Contusion of left wrist, initial encounter; W19.XXXA Unspecified fall, initial encounter; Y93.9 Activity, unspecified; Y92.9 Unspecified place or not applicable; I10 Essential (primary) hypertension; E11.9 Type 2 diabetes mellitus without complications; E66.9 Obesity, unspecified; Z68.41 Body mass index [BMI] 40.0-44.9, adult; E78.5 Hyperlipidemia, unspecified; I48.91 Unspecified atrial fibrillation; K21.9 Gastro-esophageal reflux disease without esophagitis; G47.33 Obstructive sleep apnea (adult) (pediatric); Z86.73 Personal history of transient ischemic attack (TIA), and cerebral infarction without residual deficits; Z79.84 Long term (current) use of oral hypoglycemic drugs; Z79.899 Other long term (current) drug therapy; Z87.891 Personal history of nicotine dependence
CPT/HCPCS: 70450; 70486; 72125; 99284

== ENCOUNTER 2021-01-23 14:42 | Emergency (ER) | payer MEDICARE, MEDICAID, SELFPAY ==
[2021-01-23 14:44] VITALS: BP 158/69; PULSE 83; RESP 19; TEMP 36.9; O2SAT 96; BMI 32.3
[2021-01-23] MEDS: cycloBENZAPRine HCl 10 MG Tablet PO (15:16)
[2021-01-23] MEDS: HYDROcodone Bitartrate/Apap 5/325 Tablet PO (15:16)
--- NOTE | 2021-01-23 15:16 | ED.VIS.BACK ---
HPI History of Present Illness Chief Complaint: Back Informant: patient Onset/Context/Timing Onset: Today Injury: bending Timing: Continuous Quality: Aching and Throbbing Location: Lumbar and Right Leg Current Severity: Moderate Maximum Severity: Moderate Associated Symptoms Associated Symptoms: Radiation to Right Leg Narrative Narrative: Patient present secondary low back pain. Patient states she was doing her laundry today when she pulled something in her right lower back. She tried taking a shower without improvement. Pain is radiating down into the proximal thigh. There was no fall or direct injury. She does report having back problems in the past but has never required injections or surgery. She has not taken anything for pain. [facility] Medical History (Updated 01/23/21 @ 16:[address] Yudelka Tobar MD) Atrial fibrillation Diabetes mellitus Embolic stroke GERD (gastroesophageal reflux disease) Hyperlipidemia Hypertension Incarcerated ventral hernia Intraventricular hemorrhage Obesity (BMI 30-39.9) Obstructive sleep apnea Home Medications omeprazole 20 mg PO DAILY 05/29/14 [History Last Taken 08/03/20] amlodipine 10 mg PO DAILY 10/04/16 [History Last Taken 08/03/20] apixaban 5 mg PO BID 10/04/16 [History Last Taken 08/03/20] atorvastatin 80 mg PO QHS tab 10/25/16 [Rx Last Taken 08/02/20] lisinopril 40 mg PO DAILY tab 10/25/16 [Rx Last Taken 08/03/20] glipizide 10 mg PO BID 08/03/20 [History Last Taken 08/03/20] metformin 1,000 mg PO BIDCM 08/03/20 [History Last Taken 08/03/20] carvedilol 01/23/21 [History Last Taken Unknown] furosemide [Lasix] 80 mg PO DAILY 01/23/21 [History Last Taken Unknown] hydrocodone-acetaminophen 1 tab PO Q6H PRN 3 Days #10 tab 01/23/21 [Rx Last Taken Unknown] lidocaine [Lidoderm] 1 patch TOPICAL DAILY #5 ea 01/23/21 [Rx Last Taken Unknown] metoprolol succinate 25 mg PO DAILY 01/23/21 [History Last Taken Unknown] potassium chloride 10 meq PO BID 01/23/21 [History Last Taken Unknown] Allergy/AdvReac Type Severity Reaction Status Date / Time iodine Allergy Mild Itching Verified 01/23/21 14:43 Penicillins Allergy Mild Itching Verified 01/23/21 14:43 Surgical History S/P repair of ventral hernia no surgical history Social History household members: none Smoking Status: Former smoker ROS ROS ED Constitutional Constitutional ED: Denies chills or fever(s) Eyes Eyes: Denies change in vision ENT ENT ED: Denies sore throat Cardiovascular Cardiovascular: Denies chest pain Respiratory/Chest Respiratory/Chest: Denies cough or dyspnea Gastrointestinal Gastrointestinal: Denies abdominal pain, diarrhea, nausea or vomiting Genitourinary Genitourinary ED: Denies dysuria Musculoskeletal Musculoskeletal: Reports back pain Integumentary Denies rash Neurologic Neurologic: Denies headache(s), paresthesias or weakness Psychiatric Psychiatric: Denies anxiety or depression Endocrine Endocrinology: Denies polydipsia or polyuria Allergic/Immunologic Allergic/Immunologic ED: Denies urticaria EXAM Physical Exam Const Vital Signs: 01/23/21 14:44 Temperature 98.4 F Temperature Source Oral Pulse Rate 83 Respiratory Rate 19 H Blood Pressure 158/69 H Blood Pressure Mean 98 Pulse Ox 96 Oxygen Delivery Method Room Air Positive well nourished and well developed General Appearance ED: well developed HEENT Reports normocephalic and head/scalp atraumatic Eyes PERRL and EOMs intact bilaterally Neck supple Chest Wall inspection of chest normal and palpation of chest normal Resp normal respiratory effort and clear to auscultation bilaterally Cardio regular rate and regular rhythm GI normal to inspection, nondistended, normoactive bowel sounds Palpation: soft Back/Spine no CVA tenderness and normal to inspection Back/Spine Narrative: No midline thoracic or lumbar tenderness. Reproducible tenderness in the right lumbar paraspinal muscles. Extremity normal to inspection Neuro oriented x3 and no sensory deficits noted Sensorium / Orientation: alert Motor Exam: strength 5/5 throughout Psych mental status grossly normal Skin no rashes or lesions noted MDM MDM MDM Narrative Medical decision making narrative: Patient was given Holly, Flexeril, and Lidoderm patch. On repeat evaluation she feels improved. To begin a prescription for Holly and Lidoderm patches. I will avoid anti-inflammatories secondary to her diabetes and cardiac history. Discharge Plan Triage Chief Complaint: Back ED Provider: Yudelka Tobar Dx/Rx/DC Orders Clinical Impression: Strain of lumbar paraspinal muscle Instructions: ED Back Sprain/Strain Prescriptions: New hydrocodone-acetaminophen 5-325 mg tablet 1 tab PO Q6H PRN (Reason: pain) 3 Days Qty: 10 RF: 0 lidocaine [Lidoderm] 5 % adhesive patch,medicated 1 patch topical DAILY Qty: 5 RF: 0 No Action omeprazole 20 MG capsule 20 mg PO DAILY RF: 0 amlodipine 10 MG tablet 10 mg PO DAILY RF: 0 apixaban 5 MG tablet 5 mg PO BID RF: 0 atorvastatin 80 MG tablet 80 mg PO QHS RF: 0 lisinopril 40 MG tablet 40 mg PO DAILY RF: 0 glipizide 10 MG tablet 10 mg PO BID RF: 0 metformin 1,000 MG tablet 1,000 mg PO BIDCM RF: 0 carvedilol 12.5 mg tablet RF: 0 potassium chloride 10 mEq Tablet Extended Release 10 meq PO BID RF: 0 furosemide [Lasix] 80 mg Tablet 80 mg PO DAILY RF: 0 metoprolol succinate 25 mg Tablet Extended Release 24 Hr 25 mg PO DAILY RF: 0 Primary Care Provider: Nathaniel Gaines Referrals: Nathaniel Gaines MD [Primary Care Provider] - 1 Week if not improving Disposition Disposition: Home, Self Care
[2021-01-23] MEDS: Lidocaine 5% Patch 1 PATCH TOPICAL (15:17)
[2021-01-23 16:40] VITALS: RESP 18
== END 2021-01-23 16:49 | disposition home or self-care (01) ==
PROVIDERS: Emergency Provider Emergency Medicine; PCP Family Medicine
DX: S39.012A Strain of muscle, fascia and tendon of lower back, initial encounter (principal); X58.XXXA Exposure to other specified factors, initial encounter; Y93.9 Activity, unspecified; Y92.9 Unspecified place or not applicable; I10 Essential (primary) hypertension; I48.91 Unspecified atrial fibrillation; E11.9 Type 2 diabetes mellitus without complications; K21.9 Gastro-esophageal reflux disease without esophagitis; E78.5 Hyperlipidemia, unspecified; G47.33 Obstructive sleep apnea (adult) (pediatric); E66.9 Obesity, unspecified; Z68.30 Body mass index [BMI] 30.0-30.9, adult; Z86.73 Personal history of transient ischemic attack (TIA), and cerebral infarction without residual deficits; Z87.19 Personal history of other diseases of the digestive system; Z79.01 Long term (current) use of anticoagulants; Z79.84 Long term (current) use of oral hypoglycemic drugs; Z79.899 Other long term (current) drug therapy; Z87.891 Personal history of nicotine dependence
CPT/HCPCS: 99285

== ENCOUNTER 2021-02-24 15:40 | Inpatient (IN) | payer MEDICARE, MEDICAID, SELFPAY ==
[2021-02-24] VITALS (7 sets, daily range): BP systolic 134–176; BP diastolic 60–77; PULSE 94–119; RESP 18–20; TEMP 36.7–36.9; O2SAT 87–94; BMI 31.6; BMI 39.8
--- NOTE | 2021-02-24 | HERN_PTH ---
PATIENT: ZOIE DE LA PAZ LOC: MS3 U#:[id number] AGE/SX: 65/F ROOM: MO314 RE02/25/[address]: Dr. An Shah MD : 1955 BED: 1 DIS: 02/27/2021 SPEC #: [id number] RECD: 02/25/21 06:35 STATUS: RADHA BERTRAND #: [id number] TONE: 02/24/21 00:[address]: An Shah DEPT: SURGICAL PATHOLOGY RECD BY: Orlando Garcia ENTERED: 02/25/21 08:07 SP TYPE: Hernia OTHR DR: Dr. Nathaniel Gaines MD Tissues: HERNIA Procedures: Surgery Specimen Level II HEADER OPERATION: Diagnostic laparoscopy, lysis of adhesions PRE-OP DIAGNOSIS: Recurrent incisional hernia with incarceration TISSUE SUBMITTED: Incisional hernia sac MICROSCOPIC DIAGNOSIS Incisional hernia sac: Fragments of fibroadipose and fibroconnective tissue with fibrosis and mild chronic inflammation, clinically incisional hernia sac. SHYANNE:jeffrey 02/28/2021 MICROSCOPIC DESCRIPTION Slides are reviewed. GROSS DESCRIPTION Received in fixative is one container labeled with the patient's name and designated incisional hernia sac. The specimen consists of a piece of congested soft tissue measuring 7 x 4 x 1 cm. No mass lesion is identified. Manual Control Auger Press Operator sections are submitted in one cassette. / SHYANNE:jeffrey 02/25/21 TC:5 CPT: 32583
--- NOTE | 2021-02-24 17:47 | CT_ITS ---
INDICATION: abdominal pain -- IV PO Contrast EXAMINATION: CT Abdomen And Pelvis W/ Contrast Injection TECHNIQUE: Helically acquired images were obtained of the abdomen and pelvis after IV contrast. A radiation dose optimization technique was used for this scan. IV Contrast dosage and agent: IV 100mL [id number] Oral contrast: None. COMPARISON: 08/03/2020. FINDINGS: Visualized lung bases: Emphysematous changes. Liver: Unremarkable Gallbladder: Unremarkable Spleen: Unremarkable Pancreas: Unremarkable Adrenal Glands: Unremarkable Kidneys: 3.7 cm simple cyst in the right lower pole. Vasculature: Mild scattered aortoiliac atherosclerotic calcifications. GI Tract: There are multiple dilated loops of small bowel with air-fluid levels measuring up to 3.1 cm in diameter. There is a likely transition point in the distal ileum just proximal to the terminal ileum at an area of prior resection and anastomosis. Increased size of a umbilical hernia containing a short loop of small bowel. Lymphadenopathy: None Peritoneum: No ascites. Bladder: Unremarkable Reproductive organs: Unremarkable Bones/Soft tissues: Mild scattered degenerative changes of the visualized spine. CT/Abdomen/Pelvis WITH Contrast IMPRESSION: Findings concerning for small bowel obstruction with likely transition point in the distal ileum just proximal to the terminal ileum at an area of prior resection and anastomosis. Increased size of a umbilical hernia containing a short loop of small bowel. This could also be contributing to the small bowel obstruction. Electronically Signed: Albert Gordon MD at 20:11 EDT Tel , Service support ,
--- NOTE | 2021-02-24 17:50 | ED.VIS.GI ---
HPI HPI - GI History of Present Illness Chief Complaint: Abd Pain Narrative Narrative: 65-year-old female presenting with abdominal pain since this morning. She states he has a history of abdominal hernia repair by some female physician at [facility]. She cannot recall the surgeon's name. Patient states that she has generalized abdominal pain but is able to localize this to the mid abdomen just right of the midline. She notes there is a small mass there. She denies feeling a pop. Patient has nausea without vomiting. She denies constipation or diarrhea. She denies fever or chills. [facility] Medical History Atrial fibrillation Diabetes mellitus Embolic stroke GERD (gastroesophageal reflux disease) Hyperlipidemia Hypertension Incarcerated ventral hernia Intraventricular hemorrhage Obesity (BMI 30-39.9) Obstructive sleep apnea Home Medications omeprazole 20 mg PO DAILY 05/29/14 [History Last Taken 08/03/20] amlodipine 10 mg PO DAILY 10/04/16 [History Last Taken 08/03/20] apixaban 5 mg PO BID 10/04/16 [History Last Taken 08/03/20] atorvastatin 80 mg PO QHS tab 10/25/16 [Rx Last Taken 08/02/20] lisinopril 40 mg PO DAILY tab 10/25/16 [Rx Last Taken 08/03/20] glipizide 10 mg PO BID 08/03/20 [History Last Taken 08/03/20] metformin 1,000 mg PO BIDCM 08/03/20 [History Last Taken 08/03/20] carvedilol 01/23/21 [History Last Taken Unknown] furosemide [Lasix] 80 mg PO DAILY 01/23/21 [History Last Taken Unknown] hydrocodone-acetaminophen 1 tab PO Q6H PRN 3 Days #10 tab 01/23/21 [Rx Last Taken Unknown] lidocaine [Lidoderm] 1 patch TOPICAL DAILY #5 ea 01/23/21 [Rx Last Taken Unknown] metoprolol succinate 25 mg PO DAILY 01/23/21 [History Last Taken Unknown] potassium chloride 10 meq PO BID 01/23/21 [History Last Taken Unknown] Allergy/AdvReac Type Severity Reaction Status Date / Time iodine Allergy Mild Itching Verified 02/24/21 17:49 Penicillins Allergy Mild Itching Verified 02/24/21 17:49 Family History (Updated 02/24/21 @ 21:16 by CHEIKH MeierC) Father CVA (cerebral vascular accident) Mother Diabetes Surgical History History of hysterectomy S/P repair of ventral hernia Status post debridement Social History (Updated 02/24/21 @ 21:17 by CHEIKH MeierC) household members: none Smoking Status: Former smoker alcohol intake: never substance use type: does not use ROS ROS ED Constitutional Constitutional ED: Denies chills, fever(s) or sweats ENT ENT ED: Denies rhinorrhea or sore throat Cardiovascular Cardiovascular: Denies chest pain or palpitations Respiratory/Chest Respiratory/Chest: Denies cough, dyspnea or dyspnea on exertion Gastrointestinal Gastrointestinal: Reports abdominal pain and nausea; Denies constipation, diarrhea or vomiting Genitourinary Genitourinary ED: Denies dysuria or hematuria Musculoskeletal Musculoskeletal: Denies arthralgias or myalgias Integumentary Denies abscess or rash Neurologic Neurologic: Denies headache(s) or paresthesias EXAM Physical Exam Const Vital Signs: 02/24/21 15:45 02/24/21 15:49 02/24/21 19:00 Temperature 98.5 F 98.5 F Temperature Source Temporal Temporal Pulse Rate 94 95 Respiratory Rate 18 18 Blood Pressure 134/60 H 134/60 H 176/77 H Blood Pressure Mean 84 84 110 Pulse Ox 94 93 Oxygen Delivery Method Room Air Room Air 02/24/21 21:14 Temperature Temperature Source Pulse Rate 115 H Respiratory Rate 20 H Blood Pressure Blood Pressure Mean Pulse Ox Oxygen Delivery Method Positive obese General Appearance ED: NAD Nutritional Appearance: obese HEENT Reports moist mucous membranes normocephalic and atraumatic Eyes PERRL and EOMs intact bilaterally General Eye ED: Negative for pale conjunctiva or scleral icterus Resp normal respiratory effort and clear to auscultation bilaterally Cardio regular rate and regular rhythm GI GI Narrative: Abdomen is distended. There is a 4-5 cm mass palpated in the mid abdomen just right of the midline. This is nonreducible. Patient also has generalized abdominal tenderness on exam. Neuro CN's II-XII intact bilaterally Sensorium / Orientation: alert, oriented to person, oriented to place, oriented to time and orientation impaired Psych mental status grossly normal and thought process normal Skin Lesions: no lesions Rashes: no rashes MDM MDM MDM Narrative Medical decision making narrative: Patient presenting with abdominal pain similar to what she has had previously. She is found to have a leukocytosis of 17.2, hemoglobin 16.4, hematocrit 53.3, platelets 289. Renal function and electrolytes are normal. Lactic acid is negative at 1.6. LFTs and lipase unremarkable. CT of the abdomen pelvis shows concern for small bowel obstruction with likely transition point in the distal ileum just proximal to the terminal ileum at an area of prior resection/anastomosis and increasing size of umbilical hernia containing a short loop of small bowel which may be contributing to to the obstruction. Case was discussed with Dr. Shah who had done her previous surgery. She recommended getting a rapid Covid as well as an EKG. Patient will likely need to go to the OR. Patient's EKG shows a sinus tachycardia at [address]-T wave changes similar to previous EKG performed 03 August 2020 without interval change. Patient will be taken to the OR by Dr. Shah. Impression: 1. Umbilical hernia 2. Small bowel obstruction 3. Leukocytosis Lab Data Attestation: I reviewed the patient's lab results. Labs: Laboratory Results - last 24 hr 02/24/21 02/24/21 02/24/21 18:00 18:00 19:05 WBC 17.2 H RBC 6.56 H Hgb 16.4 H Hct 53.3 H MCV 81.3 MCH 25.0 L MCHC 30.8 L RDW Std Deviation 46.7 H RDW Coeff of Faby 17.5 H Plt Count 289 MPV 9.5 Immature Gran % (Auto) 0.300 Neut % (Auto) 87.5 H Lymph % (Auto) 5.3 L [place] % (Auto) 6.2 Eos % (Auto) 0.4 Baso % (Auto) 0.3 Absolute Neuts (auto) 15.1 H Absolute Lymphs (auto) 0.91 Nucleated RBC % 0 Sodium 136 Potassium 4.8 Chloride 103 Carbon Dioxide 27.0 Anion Gap 6 BUN 13 Creatinine 0.85 Estim Creat Clear Calc 60.95 Est GFR (MDRD) Af Amer 86 Est GFR (MDRD) Non-Af 71 BUN/Creatinine Ratio 15.3 Glucose 208 H Lactic Acid 1.6 Calcium 10.8 H Total Bilirubin 0.70 AST 32 ALT 36 Alkaline Phosphatase 129 H Total Protein 9.3 H Albumin 3.8 Globulin 5.5 H Albumin/Globulin Ratio 0.7 L Lipase 133 Radiography Diagnostic Testing: Radiology Impression Abdomen/Pelvis CT 02/24/21 17:47 IMPRESSION: Findings concerning for small bowel obstruction with likely transition point in the distal ileum just proximal to the terminal ileum at an area of prior resection and anastomosis. Increased size of a umbilical hernia containing a short loop of small bowel. This could also be contributing to the small bowel obstruction. Electronically Signed: Albert Gordon MD at 20:11 EDT Tel , Service support , Discharge Plan Disposition Disposition: Acute Care Hospital [facility] Discharge Date/Time: 02/24/21 22:02
[2021-02-24] MEDS: DiphenhydrAMINE 50 MG/ML Syringe 25 MG IV (18:18)
[2021-02-24] MEDS: Morphine 4 MG/ML Syringe IV (18:19)
[2021-02-24 18:20] LABS: Absolute Lymphocyte Count 0.91 X10^3/uL (0.83-4.51); Absolute Neutrophil Count 15.1 X10^3/uL (2.0-7.7); Basophil# 0.05 X10^3/uL; Basophil% 0.3 % (0-1); Eosinophil# 0.07 X10^3/uL; Eosinophils% 0.4 % (0-5); Hematocrit 53.3 % (37-47); Hemoglobin 16.4 g/dL (12.0-15.0); Lymphocyte # 0.91 X10^3/ul (0.83-4.51); Lymphocyte % 5.3 % (19-41); Mean Corp Hgb Conc 30.8 g/dL (32-36); Mean Corpuscular Volume 81.3 fL (81-99); Mean Platelet Vol. 9.5 fl (6.2-12.0); Monocyte# 1.07 X10^3/uL; Monocyte% 6.2 % (0-10); NRBC Flagged by Analyzer 0 % (0-5); Neutrophil # 15.08 X10^3/uL (2.7-7.7); Neutrophil % 87.5 % (47-70); Platelet Count 289 K/mm3 (150-450); RBC Distribution Width CV 17.5 % (11.6-14.6); RBC Distribution Width SD 46.7 fl (35.1-43.9); Red Blood Count 6.56 M/mm3 (4.2-5.4); White Blood Count 17.2 K/mm3 (4.4-11.0)
[2021-02-24] MEDS: Ondansetron 4 MG/2 ML Vial IV (18:20)
[2021-02-24] MEDS: MethylPREDNISolone 125 MG/2 ML Vial 60 MG IV (18:21)
[2021-02-24 18:39] LABS: ALB/GLOB Ratio 0.7 RATIO (0.9-2.4); AST(SGOT) 32 U/L (15-37); Alanine Aminotransfer ALT/SGPT 36 U/L (13-56); Albumin, Serum 3.8 g/dL (3.2-5.0); Alkaline Phosphatase 129 U/L (45-117); Anion Gap 6 (5-15); BUN 13 mg/dL (7-18); BUN/Creat Ratio 15.3 RATIO (10-20); Calcium,Total 10.8 mg/dL (8.5-10.1); Chloride 103 mmol/L (98-107); Creatinine, Serum 0.85 mg/dL (0.55-1.02); EST Glomerular Filtration Rate 71 mL/min (>60); Est Glom Filt Rate - Afr Amer 86 mL/min (>60); Estimated Creatinine Clearance 60.95 ml/min; Globulin 5.5 g/dL (2.2-4.2); Glucose 208 mg/dL (74-106); Lipase 133 U/L (73-393); Potassium 4.8 mmol/L (3.5-5.1); Protein, Total 9.3 g/dL (6.4-8.2); Sodium Level 136 mmol/L (136-145)
[2021-02-24 20:29] LABS: Lactic Acid 1.6 mmol/L (0.4-1.9)
--- NOTE | 2021-02-24 20:42 | EKG12_ITS ---
Test Reason : ABD PAIN Blood Pressure : / mmHG Vent. Rate : 115 BPM Atrial Rate : 115 BPM P-R Int : 138 ms QRS Dur : 074 ms QT Int : 318 ms P-R-T Axes : 068 056 059 degrees QTc Int : 439 ms Sinus tachycardia Nonspecific ST and T wave abnormality Abnormal ECG Confirmed by SHAN GAFFNEY, JOSE ([id number]), newspaper editor managing HARVEY RODRGIUEZ ([id number]) on 02/28/2021 10:36:54 AM Referred By: GAGE Confirmed By:BRODY TORREZ MD
--- NOTE | 2021-02-24 20:45 | CON.PCM.SX_ITS ---
Assessment & Plan Assessment/Plan (1) Recurrent incisional hernia with incarceration: (2) Diabetes mellitus: (3) Hypertension: (4) GERD (gastroesophageal reflux disease): PLAN: Did review CT abdomen/pelvis. Discussed with patient that it appears that she has recurrent incisional hernia with again small bowel stuck in the hernia site. This could be contributing to her small bowel obstruction however there is also an area in the right upper quadrant appears to be a previous anastomosis site that may be the area of transition as well. We will plan on repair of recurrent incisional hernia, diagnostic laparoscopy, possible bowel resection, possible mesh included the risks not limited to bleeding, infection, recurrent hernia, and anesthesia. Did discuss with patient that if possible would try to use mesh as this did recur from July with just the permanent sutures. An Shah M.D. Pager: [phone] [facility] [address] [place] [address], [facility], [address] [place] [address] Office: [phone] HPI Consult Data Date of Consult: 02/24/21 HPI Narrative HPI Narrative: ZOIE DE LA PAZ, is a 65 F who presents to the ER due to abdominal pain and nausea vomiting which started this morning. Patient CT abdomen pelvis which was consistent with an incarcerated recurrent incisional hernia with bowel in the hernia. Patient white blood count 17.7. Patient is well-known to me as in July had about the same picture did go to surgery and reduced the bowel back in and used permanent sutures to close the hernia defect. Patient states she has been off of her Eliquis which she was previously on in July. [facility] Medical History (Updated 02/24/21 @ 21:[address] An Shah MD) Atrial fibrillation Diabetes mellitus Embolic stroke GERD (gastroesophageal reflux disease) Hyperlipidemia Hypertension Incarcerated ventral hernia Intraventricular hemorrhage Obesity (BMI 30-39.9) Obstructive sleep apnea Home Medications omeprazole 20 mg PO DAILY 05/29/14 [History Last Taken 08/03/20] amlodipine 10 mg PO DAILY 10/04/16 [History Last Taken 08/03/20] apixaban 5 mg PO BID 10/04/16 [History Last Taken 08/03/20] atorvastatin 80 mg PO QHS tab 10/25/16 [Rx Last Taken 08/02/20] lisinopril 40 mg PO DAILY tab 10/25/16 [Rx Last Taken 08/03/20] glipizide 10 mg PO BID 08/03/20 [History Last Taken 08/03/20] metformin 1,000 mg PO BIDCM 08/03/20 [History Last Taken 08/03/20] carvedilol 01/23/21 [History Last Taken Unknown] furosemide [Lasix] 80 mg PO DAILY 01/23/21 [History Last Taken Unknown] hydrocodone-acetaminophen 1 tab PO Q6H PRN 3 Days #10 tab 01/23/21 [Rx Last Taken Unknown] lidocaine [Lidoderm] 1 patch TOPICAL DAILY #5 ea 01/23/21 [Rx Last Taken Unknown] metoprolol succinate 25 mg PO DAILY 01/23/21 [History Last Taken Unknown] potassium chloride 10 meq PO BID 01/23/21 [History Last Taken Unknown] Allergy/AdvReac Type Severity Reaction Status Date / Time iodine Allergy Mild Itching Verified 02/24/21 17:49 Penicillins Allergy Mild Itching Verified 02/24/21 17:49 Family History (Updated 02/24/21 @ 21:16 by Hannah Roach PRESS MACHINE OPERATOR-C) Father CVA (cerebral vascular accident) Mother Diabetes Surgical History (Updated 02/24/21 @ 21:[address] An Shah MD) History of hysterectomy S/P repair of ventral hernia Status post debridement Social History (Updated 02/24/21 @ 21:17 by Hannah Roach PRESS MACHINE OPERATOR-C) household members: none Smoking Status: Former smoker alcohol intake: never substance use type: does not use Physical Exam GI GI Narrative: Soft, mild distention, tender near the umbilicus, previous midline incision-incarcerated incisional hernia, also large incision on the left lower abdomen/thigh, subcostal incision all well-healed. Lab / Micro Data Result Diagrams: 02/24/21 18:00 02/24/21 18:00 Labs: Laboratory Results - last 24 hr 02/24/21 18:00: WBC 17.2 H, RBC 6.56 H, Hgb 16.4 H, Hct 53.3 H, MCV 81.3, MCH 25.0 L, MCHC 30.8 L, RDW Std Deviation 46.7 H, RDW Coeff of Faby 17.5 H, Plt Count 289, MPV 9.5, Immature Gran % (Auto) 0.300, Neut % (Auto) 87.5 H, Lymph % (Auto) 5.3 L, [place] % (Auto) 6.2, Eos % (Auto) 0.4, Baso % (Auto) 0.3, Absolute Neuts (auto) 15.1 H, Absolute Lymphs (auto) 0.91, Nucleated RBC % 0 02/24/21 18:00: Sodium 136, Potassium 4.8, Chloride 103, Carbon Dioxide 27.0, Anion Gap 6, BUN 13, Creatinine 0.85, Estim Creat Clear Calc 60.95, Est GFR (MDRD) Af Amer 86, Est GFR (MDRD) Non-Af 71, BUN/Creatinine Ratio 15.3, Glucose 208 H, Calcium 10.8 H, Total Bilirubin 0.70, AST 32, ALT 36, Alkaline Phosphatase 129 H, Total Protein 9.3 H, Albumin 3.8, Globulin 5.5 H, Albumin/Globulin Ratio 0.7 L, Lipase 133 02/24/21 19:05: Lactic Acid 1.6 Radiology Impression Abdomen/Pelvis CT 02/24/21 17:47 IMPRESSION: Findings concerning for small bowel obstruction with likely transition point in the distal ileum just proximal to the terminal ileum at an area of prior resection and anastomosis. Increased size of a umbilical hernia containing a short loop of small bowel. This could also be contributing to the small bowel obstruction. Electronically Signed: Albert Gordon MD at 20:11 EDT Tel , Service support ,
[2021-02-24] MEDS: Oxymetazoline 0.05% 1 SPRAY SPRAY.BTL 2 SPRAY NASAL (20:54)
[2021-02-24] MEDS: Lidocaine 4% 5 ML Ampul 2 ML INHALATION (21:14)
--- NOTE | 2021-02-24 21:14 | PCM.CONS.GEN ---
Documented by User: GILBERT Meier 02/24/21 21:33 Assessment & Plan Assessment/Plan (1) Recurrent incisional hernia with incarceration: PLAN: 1.Recurrent incisional hernia with incarceration -CT shows findings concerning for small bowel obstruction as well as increase as umbilical hernia containing a short loop of small bowel. -Will defer management to surgery, Dr. Shah -Maintain NG placed in ER -CBC and CMP ordered for a.m. -NPO 2.Hypertension -P.o. antihypertensive on hold at this time -As needed hydralazine IV ordered -Vital signs per protocol, trend BP and heart rate 3.Atrial fibrillation -P.o. medication held at this time including Eliquis and metoprolol -IV metoprolol ordered as needed for rate control 4.Diabetes Mellitus Type 2 -Hold Metformin and glipizide at this time -AC at bedtime blood sugars with sliding scale insulin ordered 5.Hyperlipidemia -Patient currently on atorvastatin will hold pending surgery 6.GERD -IV famotidine ordered 7.Obesity BMI 30-39.9 -Lifestyle modifications encouraged including diet and exercise DVT prophylaxis-SCDs This patient was seen by Hannah Roach NP-C under the supervision of Dr. Mason. HPI Consult Data Date of Consult: 02/24/21 HPI Narrative Reason for Consultation: Medical management of chronic diseases HPI Narrative: ZOIE DE LA PAZ, is a 65 F who presents with complaints of abdominal pain beginning this morning. Patient states that she also has nausea without vomiting, denies constipation or diarrhea. Patient reports that she had surgery earlier this year for a abdominal hernia repair and reports a small mass. [facility] Medical History (Updated 02/24/21 @ 21:[address] An Shah MD) Atrial fibrillation Diabetes mellitus Embolic stroke GERD (gastroesophageal reflux disease) Hyperlipidemia Hypertension Incarcerated ventral hernia Intraventricular hemorrhage Obesity (BMI 30-39.9) Obstructive sleep apnea Home Medications omeprazole 20 mg PO DAILY 05/29/14 [History Last Taken 08/03/20] amlodipine 10 mg PO DAILY 10/04/16 [History Last Taken 08/03/20] apixaban 5 mg PO BID 10/04/16 [History Last Taken 08/03/20] atorvastatin 80 mg PO QHS tab 10/25/16 [Rx Last Taken 08/02/20] lisinopril 40 mg PO DAILY tab 10/25/16 [Rx Last Taken 08/03/20] glipizide 10 mg PO BID 08/03/20 [History Last Taken 08/03/20] metformin 1,000 mg PO BIDCM 08/03/20 [History Last Taken 08/03/20] carvedilol 01/23/21 [History Last Taken Unknown] furosemide [Lasix] 80 mg PO DAILY 01/23/21 [History Last Taken Unknown] hydrocodone-acetaminophen 1 tab PO Q6H PRN 3 Days #10 tab 01/23/21 [Rx Last Taken Unknown] lidocaine [Lidoderm] 1 patch TOPICAL DAILY #5 ea 01/23/21 [Rx Last Taken Unknown] metoprolol succinate 25 mg PO DAILY 01/23/21 [History Last Taken Unknown] potassium chloride 10 meq PO BID 01/23/21 [History Last Taken Unknown] Allergy/AdvReac Type Severity Reaction Status Date / Time iodine Allergy Mild Itching Verified 02/24/21 17:49 Penicillins Allergy Mild Itching Verified 02/24/21 17:49 Family History (Updated 02/24/21 @ 21:16 by Hannah Roach NP-C) Father CVA (cerebral vascular accident) Mother Diabetes Surgical History (Updated 02/24/21 @ 21:[address] An Shah MD) History of hysterectomy S/P repair of ventral hernia Status post debridement Social History (Updated 02/24/21 @ 21:17 by Hannah Roach NP-C) household members: none Smoking Status: Former smoker alcohol intake: never substance use type: does not use ROS Constitutional Constitutional: Denies chills or fever(s) ENT HEENT: Reports none Cardiovascular Cardiovascular: Denies chest pain, clubbing, edema, nausea, palpitations or vomiting Respiratory/Chest Respiratory/Chest: Denies cough, shortness of breath at rest, shortness of breath with exertion or wheezing Gastrointestinal Gastrointestinal: Reports abdominal pain, constipation and nausea; Denies vomiting Genitourinary Genitourinary: Reports none Musculoskeletal Musculoskeletal: Denies abnormal gait, back pain, extremity pain, joint stiffness or joint swelling Integumentary Integumentary: Denies dry skin, lesions or rash Neurologic Neurologic: Denies abnormal gait, abnormal speech, confusion, dizziness or weakness Psychiatric Psychiatric: Denies anxiety or depression Endocrine Endocrinology: Denies cold intolerance or heat intolerance Hematologic/Lymphatic Hematologic/Lymphatic: Denies easy bleeding or easy bruising Physical Exam Const alert, oriented x3 and no apparent distress HEENT normocephalic and head/scalp atraumatic Eyes conjunctivae normal and no scleral icterus Neck full ROM, supple and no JVD General: trachea midline Chest inspection of chest normal and palpation of chest normal Resp normal respiratory effort, normal air movement and clear to auscultation bilaterally Cardio regular rate, regular rhythm, S1 normal heart sound and S2 normal heart sound Rate: tachycardic Peripheral Pulses: pulses 2+ throughout GI Auscultation: hypoactive bowel sounds Palpation: tender periumbilical and hernia umbilical Extremity normal to inspection, full ROM, normal capillary refill and no clubbing, cyanosis or edema Skin no rashes or lesions noted, no wounds and skin turgor normal Neuro oriented x3, moves all extremities, no focal motor deficits and no sensory deficits noted Psych mental status grossly normal, thought process normal, cooperative, affect normal and speech normal Lab / Micro Data Result Diagrams: 02/24/21 18:00 02/24/21 18:00 Labs: Laboratory Results - last 24 hr 02/24/21 18:00: WBC 17.2 H, RBC 6.56 H, Hgb 16.4 H, Hct 53.3 H, MCV 81.3, MCH 25.0 L, MCHC 30.8 L, RDW Std Deviation 46.7 H, RDW Coeff of Faby 17.5 H, Plt Count 289, MPV 9.5, Immature Gran % (Auto) 0.300, Neut % (Auto) 87.5 H, Lymph % (Auto) 5.3 L, [place] % (Auto) 6.2, Eos % (Auto) 0.4, Baso % (Auto) 0.3, Absolute Neuts (auto) 15.1 H, Absolute Lymphs (auto) 0.91, Nucleated RBC % 0 02/24/21 18:00: Sodium 136, Potassium 4.8, Chloride 103, Carbon Dioxide 27.0, Anion Gap 6, BUN 13, Creatinine 0.85, Estim Creat Clear Calc 60.95, Est GFR (MDRD) Af Amer 86, Est GFR (MDRD) Non-Af 71, BUN/Creatinine Ratio 15.3, Glucose 208 H, Calcium 10.8 H, Total Bilirubin 0.70, AST 32, ALT 36, Alkaline Phosphatase 129 H, Total Protein 9.3 H, Albumin 3.8, Globulin 5.5 H, Albumin/Globulin Ratio 0.7 L, Lipase 133 02/24/21 19:05: Lactic Acid 1.6 Micro: Microbiology 02/24/21 20:48 Mucosa - Nose SARS-CoV-2 Antigen (Rapid) - Final Radiology Impression Abdomen/Pelvis CT 02/24/21 17:47 IMPRESSION: Findings concerning for small bowel obstruction with likely transition point in the distal ileum just proximal to the terminal ileum at an area of prior resection and anastomosis. Increased size of a umbilical hernia containing a short loop of small bowel. This could also be contributing to the small bowel obstruction. Electronically Signed: Albert Gordon MD at 20:11 EDT Tel , Service support , Documented by User: Dr. Naima Mason MD 02/24/21 21:37 HPI Consult Data Date of Consult: 02/24/21 [facility] Medical History (Updated 02/24/21 @ 21:[address] An Shah MD) Atrial fibrillation Diabetes mellitus Embolic stroke GERD (gastroesophageal reflux disease) Hyperlipidemia Hypertension Incarcerated ventral hernia Intraventricular hemorrhage Obesity (BMI 30-39.9) Obstructive sleep apnea Home Medications omeprazole 20 mg PO DAILY 05/29/14 [History Last Taken 08/03/20] amlodipine 10 mg PO DAILY 10/04/16 [History Last Taken 08/03/20] apixaban 5 mg PO BID 10/04/16 [History Last Taken 08/03/20] atorvastatin 80 mg PO QHS tab 10/25/16 [Rx Last Taken 08/02/20] lisinopril 40 mg PO DAILY tab 10/25/16 [Rx Last Taken 08/03/20] glipizide 10 mg PO BID 08/03/20 [History Last Taken 08/03/20] metformin 1,000 mg PO BIDCM 08/03/20 [History Last Taken 08/03/20] carvedilol 01/23/21 [History Last Taken Unknown] furosemide [Lasix] 80 mg PO DAILY 01/23/21 [History Last Taken Unknown] hydrocodone-acetaminophen 1 tab PO Q6H PRN 3 Days #10 tab 01/23/21 [Rx Last Taken Unknown] lidocaine [Lidoderm] 1 patch TOPICAL DAILY #5 ea 01/23/21 [Rx Last Taken Unknown] metoprolol succinate 25 mg PO DAILY 01/23/21 [History Last Taken Unknown] potassium chloride 10 meq PO BID 01/23/21 [History Last Taken Unknown] Allergy/AdvReac Type Severity Reaction Status Date / Time iodine Allergy Mild Itching Verified 02/24/21 17:49 Penicillins Allergy Mild Itching Verified 02/24/21 17:49 Family History (Updated 02/24/21 @ 21:16 by Hannah Roach NP-C) Father CVA (cerebral vascular accident) Mother Diabetes Surgical History (Updated 02/24/21 @ 21:[address] An Shah MD) History of hysterectomy S/P repair of ventral hernia Status post debridement Social History (Updated 02/24/21 @ 21:17 by Hannah Roach NP-C) household members: none Smoking Status: Former smoker alcohol intake: never substance use type: does not use Lab / Micro Data Result Diagrams: 02/24/21 18:00 02/24/21 18:00
--- NOTE | 2021-02-24 21:34 | PCM.HP.STD ---
HPI - General General Date of Admission: 02/24/21 HPI Narrative ZOIE DE LA PAZ, is a 65 F who presents to the ER due to abdominal pain and nausea vomiting which started this morning. Patient CT abdomen pelvis which was consistent with an incarcerated recurrent incisional hernia with bowel in the hernia. Patient white blood count 17.7. Patient is well-known to me as in July had about the same picture did go to surgery and reduced the bowel back in and used permanent sutures to close the hernia defect. Patient's previous surgery she is unsure why she had the surgery it does appear she had a small bowel resection per CT. Patient states she has been off of her Eliquis which she was previously on in July. [facility] Medical History (Updated 02/24/21 @ 21:[address] An Shah MD) Atrial fibrillation Diabetes mellitus Embolic stroke GERD (gastroesophageal reflux disease) Hyperlipidemia Hypertension Incarcerated ventral hernia Intraventricular hemorrhage Obesity (BMI 30-39.9) Obstructive sleep apnea Home Medications omeprazole 20 mg PO DAILY 05/29/14 [History Last Taken 08/03/20] amlodipine 10 mg PO DAILY 10/04/16 [History Last Taken 08/03/20] apixaban 5 mg PO BID 10/04/16 [History Last Taken 08/03/20] atorvastatin 80 mg PO QHS tab 10/25/16 [Rx Last Taken 08/02/20] lisinopril 40 mg PO DAILY tab 10/25/16 [Rx Last Taken 08/03/20] glipizide 10 mg PO BID 08/03/20 [History Last Taken 08/03/20] metformin 1,000 mg PO BIDCM 08/03/20 [History Last Taken 08/03/20] carvedilol 01/23/21 [History Last Taken Unknown] furosemide [Lasix] 80 mg PO DAILY 01/23/21 [History Last Taken Unknown] hydrocodone-acetaminophen 1 tab PO Q6H PRN 3 Days #10 tab 01/23/21 [Rx Last Taken Unknown] lidocaine [Lidoderm] 1 patch TOPICAL DAILY #5 ea 01/23/21 [Rx Last Taken Unknown] metoprolol succinate 25 mg PO DAILY 01/23/21 [History Last Taken Unknown] potassium chloride 10 meq PO BID 01/23/21 [History Last Taken Unknown] Allergy/AdvReac Type Severity Reaction Status Date / Time iodine Allergy Mild Itching Verified 02/24/21 17:49 Penicillins Allergy Mild Itching Verified 02/24/21 17:49 Family History (Updated 02/24/21 @ 21:16 by GILBERT Meier) Father CVA (cerebral vascular accident) Mother Diabetes Surgical History (Updated 02/24/21 @ 21:[address] An Shah MD) History of hysterectomy S/P repair of ventral hernia Status post debridement Social History (Updated 02/24/21 @ 21:17 by Hannah Roach NP-C) household members: none Smoking Status: Former smoker alcohol intake: never substance use type: does not use Vital Signs Vital Signs Vital Signs: 02/24/21 15:45 02/24/21 15:49 02/24/21 19:00 Temperature 98.5 F 98.5 F Temperature Source Temporal Temporal Pulse Rate 94 95 Respiratory Rate 18 18 Blood Pressure 134/60 H 134/60 H 176/77 H Blood Pressure Mean 84 84 110 Pulse Ox 94 93 Oxygen Delivery Method Room Air Room Air 02/24/21 21:14 Temperature Temperature Source Pulse Rate 115 H Respiratory Rate 20 H Blood Pressure Blood Pressure Mean Pulse Ox Oxygen Delivery Method Weight Weight: 196 lb 3.382 oz Body Mass Index (BMI) 31.6 Physical Exam Const alert, oriented x3 and no apparent distress Resp normal respiratory effort Cardio Rate: tachycardic GI GI Narrative: Soft, mild distention, tender near the umbilicus, previous midline incision-incarcerated incisional hernia, also large incision on the left lower abdomen/thigh, subcostal incision all well-healed. Extremity General Extremity: Negative for clubbing or cyanosis Neuro oriented x3 and CN's II-XII intact bilaterally Psych Appearance: grossly normal Results Lab / Micro Data Result Diagrams: 02/24/21 18:00 02/24/21 18:00 Labs: Laboratory Results - last 24 hr 02/24/21 18:00: WBC 17.2 H, RBC 6.56 H, Hgb 16.4 H, Hct 53.3 H, MCV 81.3, MCH 25.0 L, MCHC 30.8 L, RDW Std Deviation 46.7 H, RDW Coeff of Faby 17.5 H, Plt Count 289, MPV 9.5, Immature Gran % (Auto) 0.300, Neut % (Auto) 87.5 H, Lymph % (Auto) 5.3 L, [place] % (Auto) 6.2, Eos % (Auto) 0.4, Baso % (Auto) 0.3, Absolute Neuts (auto) 15.1 H, Absolute Lymphs (auto) 0.91, Nucleated RBC % 0 02/24/21 18:00: Sodium 136, Potassium 4.8, Chloride 103, Carbon Dioxide 27.0, Anion Gap 6, BUN 13, Creatinine 0.85, Estim Creat Clear Calc 60.95, Est GFR (MDRD) Af Amer 86, Est GFR (MDRD) Non-Af 71, BUN/Creatinine Ratio 15.3, Glucose 208 H, Calcium 10.8 H, Total Bilirubin 0.70, AST 32, ALT 36, Alkaline Phosphatase 129 H, Total Protein 9.3 H, Albumin 3.8, Globulin 5.5 H, Albumin/Globulin Ratio 0.7 L, Lipase 133 02/24/21 19:05: Lactic Acid 1.6 Micro: Microbiology 02/24/21 20:48 Mucosa - Nose SARS-CoV-2 Antigen (Rapid) - Final Radiology Impression Abdomen/Pelvis CT 02/24/21 17:47 IMPRESSION: Findings concerning for small bowel obstruction with likely transition point in the distal ileum just proximal to the terminal ileum at an area of prior resection and anastomosis. Increased size of a umbilical hernia containing a short loop of small bowel. This could also be contributing to the small bowel obstruction. Electronically Signed: Albert Gordon MD at 20:11 EDT Tel , Service support , Assessment & Plan Assessment/Plan (1) Recurrent incisional hernia with incarceration: (2) Diabetes mellitus: (3) Hypertension: (4) GERD (gastroesophageal reflux disease): PLAN: Did review CT abdomen/pelvis. Discussed with patient that it appears that she has recurrent incisional hernia with again small bowel stuck in the hernia site. This could be contributing to her small bowel obstruction however there is also an area in the right upper quadrant appears to be a previous anastomosis site that may be the area of transition as well. We will plan on repair of recurrent incisional hernia, diagnostic laparoscopy, possible bowel resection, possible mesh included the risks not limited to bleeding, infection, recurrent hernia, and anesthesia. Did discuss with patient that if possible would try to use mesh as this did recur from July with just the permanent sutures. An Shah M.D. Pager: [phone] [facility] [address] [place] [address] [address] [place] [address] Office: [phone]
--- NOTE | 2021-02-24 21:35 | RAD_ITS ---
HISTORY: NG placement -- KUB with both diaphragms for NG/OG Verification FINDINGS: # of images incl. paperwork: 1 Frontal view of the abdomen demonstrates an enteric tube with subdiaphragmatic tip and side port projecting over the expected region of the stomach. RAD/Abdomen Single View (Portable) IMPRESSION: Subdiaphragmatic enteric tube projecting within the stomach at 0010 Reported and signed by: Aleksandar Narayanan MD Electronically Signed: Aleksandar Narayanan MD at 0:09 EDT Tel , Service support ,
[2021-02-24] MEDS: metroNIDAZOLE 500 MG/100 ML BAG 100 MG IV (21:38)
[2021-02-24] MEDS: Lactated Ringers 1,000 ML 100 ML IV (22:10)
[2021-02-24] MEDS: Ciprofloxacin 400 MG/200 ML BAG 200 MG IV (22:25)
[2021-02-24] MEDS: Bupivacaine Mpf 0.5% 30 ML VIAL (22:37)
[2021-02-25] VITALS (22 sets, daily range): BP systolic 126–166; BP diastolic 60–89; PULSE 93–112; RESP 16–20; TEMP 36.1–37.6; O2SAT 90–98; BMI 38.9
--- NOTE | 2021-02-25 00:50 | OP.PCM_ITS ---
Report of Operation Date of Procedure: 02/25/21 Pre-Operative Diagnosis: Incarcerated recurrent incisional hernia, small bowel obstruction Post-Operative Diagnosis: Same Surgery/Procedure Performed:: Diagnostic laparoscopy, repair of incarcerated recurrent incisional hernia with mesh, extensive lysis of adhesions Surgeon: An Shah real estate sales associate: Becka Castellanos Type of Anesthesia: General/Supplemental Anesthesiologist: steven mena Special Medications: Cipro 400 mg IV x1, Flagyl 500 mg IV x1 Specimen's removed: Hernia sac Estimated Blood Loss (mL): 20 cc Fluids Replaced: 2100 cc Description of Procedure: Indications: 65-year-old female presented with recurrent incarcerated incisional hernia and a small bowel obstruction with questionable transition near the previous small bowel anastomosis. Diagnostic laparoscopy, repair of incarcerated recurrent incisional hernia was elected. Description: Patient was brought to the operating placed supine on the operating table. Timeout was completed verifying correct patient, procedure, site, positioning, special equipment prior to beginning procedure. General anesthesia was induced. The abdomen was prepped and draped in usual sterile fashion. A 15 blade scalpel was used for skin incision for the Banks port and the upper midline. The fascia was elevated and incised in the direct visualization. Banks trocar was placed. Abdomen was insufflated with CO2 to 12 to 15 mmHg. However unable to get a clear view as patient had multiple adhesions from previous surgeries. Decided to switch to reduce the incarcerated incisional hernia with an open approach first. The previous midline incision was reincised with a 15 blade scalpel. This was deepened with electrocautery. The hernia and sac were carefully excised. Extensive lysis of adhesions was done for about an hour to an hour and a half. There was a small serosal tear which was repaired with Lembert sutures 3-0 silk. The small bowel was reduced back into the abdomen. Wound protector was placed and the abdomen was reinsufflated to visualize previous small bowel anastomosis in the right upper quadrant. The laparoscope was placed in the Buddy trocar. An additional 5 mm trocar was placed in the right mid abdomen under direct visualization. There is noted to be adhesions of the small bowel to the abdominal wall. These were taken down sharply with laparoscopic scissors. The anastomosis was seen as well as the distal and proximal small bowel to this area with no obvious sign of obstruction as the small bowel was ran from the cecum to proximal to the previous anastomosis. The incisional hernia, which measured 3 cm x 2.5 cm, was closed using Ventralex ST hernia patch large (Lot [id number] ref [id number]). The hernia patch was secured laterally at the tails with 0 Nurolon suture. The fascia was closed with additional [id number]-[id number] 0 Nurolon sutures x3. The Buddy trocar site was closed with 0 Vicryl [id number] suture. Wounds were irrigated with saline. Subdermal sutures of 3-0 vicryl were placed at the midline incision. Skin was closed with 4-0 Monocryl. Patient was extubated. Patient tolerated procedure well and sent to the postanesthesia care unit in stable condition. Grafts/Implants Used: Ventralex ST hernia patch large (Lot [id number] ref [id number])
[2021-02-25] MEDS: Lactated Ringers 1,000 ML 100 ML IV (01:33)
--- NOTE | 2021-02-25 01:37 | SUR.PHASEI ---
NG to low intermittent suction per order, in PACU. Patient alert and denies pain. 2L O2 NC.
[2021-02-25 01:45] LABS: Bedside Glucose 228 mg/dL (70-110)
[2021-02-25] MEDS: 0.9% Normal Saline 1,000 ML 100 ML IV ×3 (02:42→22:46)
[2021-02-25] MEDS: Metoprolol Tartrate 5 MG/5 ML Vial IV ×3 (02:43→22:40)
[2021-02-25] MEDS: Insulin Lispro 100 UNIT/ML INSULN.PEN SC ×3 (02:43→11:39)
[2021-02-25] MEDS: Famotidine 200 MG/20 ML MDV 20 MG in 0.9% Normal Saline (Pres. free 8 ML 300 MG IV ×3 (02:43→22:32)
[2021-02-25 02:46] LABS: Bedside Glucose 327 mg/dL (70-110)
[2021-02-25] MEDS: 0.9% Saline Lock 10 ML Syringe IV ×4 (02:51→22:32)
[2021-02-25] MEDS: Morphine 2 MG/ML Syringe IV (02:55)
[2021-02-25 06:46] LABS: Bedside Glucose 205 mg/dL (70-110)
[2021-02-25 07:15] LABS: Absolute Lymphocyte Count 0.76 X10^3/uL (0.83-4.51); Absolute Neutrophil Count 9.3 X10^3/uL (2.0-7.7); Basophil# 0.03 X10^3/uL; Basophil% 0.3 % (0-1); Eosinophil# 0.06 X10^3/uL; Eosinophils% 0.5 % (0-5); Hematocrit 43.9 % (37-47); Hemoglobin 13.5 g/dL (12.0-15.0); Lymphocyte # 0.76 X10^3/ul (0.83-4.51); Lymphocyte % 6.7 % (19-41); Mean Corp Hgb Conc 30.8 g/dL (32-36); Mean Corpuscular Hgb 24.9 pg (27.0-32.0); Mean Corpuscular Volume 80.8 fL (81-99); Mean Platelet Vol. 9.2 fl (6.2-12.0); Monocyte# 1.15 X10^3/uL; Monocyte% 10.2 % (0-10); NRBC Flagged by Analyzer 0 % (0-5); Platelet Count 213 K/mm3 (150-450); RBC Distribution Width CV 16.1 % (11.6-14.6); RBC Distribution Width SD 45.9 fl (35.1-43.9); Red Blood Count 5.43 M/mm3 (4.2-5.4); White Blood Count 11.3 K/mm3 (4.4-11.0)
[2021-02-25 07:45] LABS: ALB/GLOB Ratio 0.7 RATIO (0.9-2.4); AST(SGOT) 18 U/L (15-37); Alanine Aminotransfer ALT/SGPT 27 U/L (13-56); Albumin, Serum 2.8 g/dL (3.2-5.0); Alkaline Phosphatase 92 U/L (45-117); Anion Gap 6 (5-15); BUN 20 mg/dL (7-18); BUN/Creat Ratio 23.8 RATIO (10-20); Calcium,Total 8.8 mg/dL (8.5-10.1); Chloride 106 mmol/L (98-107); Creatinine, Serum 0.84 mg/dL (0.55-1.02); EST Glomerular Filtration Rate 72 mL/min (>60); Est Glom Filt Rate - Afr Amer 87 mL/min (>60); Estimated Creatinine Clearance 61.67 ml/min; Glucose 208 mg/dL (74-106); Protein, Total 6.8 g/dL (6.4-8.2); Sodium Level 137 mmol/L (136-145)
--- NOTE | 2021-02-25 08:23 | PCM.PN.SRG ---
Subjective Subjective Still no flatus however less out of the NG overnight, patient denies any abdominal pain Objective Data Objective Data Vital Signs: Vital Signs Temp Pulse Resp BP Pulse Ox 99.3 F H 112 H 16 146/66 H 94 02/25/21 08:07 02/25/21 08:07 02/25/21 08:07 02/25/21 08:07 02/25/21 08:07 Oxygen Flow Rate (L/min) 3 Oxygen Delivery Method Nasal Cannula Weight: 242 lb 4.608 oz Body Mass Index (BMI) 38.9 Intake & Output: Intake and Output for Last 24 Hours 02/23/21 02/24/21 02/25/21 23:59 23:59 23:59 Intake Total 300 / 300 1126.67 / 1126.67 Output Total 400 / 400 Balance 300 / 300 726.67 / 726.67 Lab / Micro Data Result Diagrams: 02/25/21 07:04 02/25/21 07:04 Labs: Laboratory Results - last 24 hr 02/24/21 18:00: WBC 17.2 H, RBC 6.56 H, Hgb 16.4 H, Hct 53.3 H, MCV 81.3, MCH 25.0 L, MCHC 30.8 L, RDW Std Deviation 46.7 H, RDW Coeff of Faby 17.5 H, Plt Count 289, MPV 9.5, Immature Gran % (Auto) 0.300, Neut % (Auto) 87.5 H, Lymph % (Auto) 5.3 L, [place] % (Auto) 6.2, Eos % (Auto) 0.4, Baso % (Auto) 0.3, Absolute Neuts (auto) 15.1 H, Absolute Lymphs (auto) 0.91, Nucleated RBC % 0 02/24/21 18:00: Sodium 136, Potassium 4.8, Chloride 103, Carbon Dioxide 27.0, Anion Gap 6, BUN 13, Creatinine 0.85, Estim Creat Clear Calc 60.95, Est GFR (MDRD) Af Amer 86, Est GFR (MDRD) Non-Af 71, BUN/Creatinine Ratio 15.3, Glucose 208 H, Calcium 10.8 H, Total Bilirubin 0.70, AST 32, ALT 36, Alkaline Phosphatase 129 H, Total Protein 9.3 H, Albumin 3.8, Globulin 5.5 H, Albumin/Globulin Ratio 0.7 L, Lipase 133 02/24/21 19:05: Lactic Acid 1.6 02/25/21 01:41: POC Glucose 228 H 02/25/21 02:39: POC Glucose 327 H 02/25/21 06:24: POC Glucose 205 H 02/25/21 07:04: WBC 11.3 H, RBC 5.43 H, Hgb 13.5, Hct 43.9, MCV 80.8 L, MCH 24.9 L, MCHC 30.8 L, RDW Std Deviation 45.9 H, RDW Coeff of Faby 16.1 H, Plt Count 213, MPV 9.2, Immature Gran % (Auto) 0.300, Neut % (Auto) 82.0 H, Lymph % (Auto) 6.7 L, [place] % (Auto) 10.2 H, Eos % (Auto) 0.5, Baso % (Auto) 0.3, Absolute Neuts (auto) 9.3 H, Absolute Lymphs (auto) 0.76 L, Nucleated RBC % 0 02/25/21 07:04: Sodium 137, Potassium 4.0, Chloride 106, Carbon Dioxide 25.0, Anion Gap 6, BUN 20 H, Creatinine 0.84, Estim Creat Clear Calc 61.67, Est GFR (MDRD) Af Amer 87, Est GFR (MDRD) Non-Af 72, BUN/Creatinine Ratio 23.8 H, Glucose 208 H, Calcium 8.8, Total Bilirubin 0.40, AST 18, ALT 27, Alkaline Phosphatase 92, Total Protein 6.8, Albumin 2.8 L, Globulin 4.0, Albumin/Globulin Ratio 0.7 L Micro: Microbiology 02/24/21 20:48 Mucosa - Nose SARS-CoV-2 Antigen (Rapid) - Final Radiography Diagnostic Testing: Radiology Impression Abdomen/Pelvis CT 02/24/21 17:47 IMPRESSION: Findings concerning for small bowel obstruction with likely transition point in the distal ileum just proximal to the terminal ileum at an area of prior resection and anastomosis. Increased size of a umbilical hernia containing a short loop of small bowel. This could also be contributing to the small bowel obstruction. Electronically Signed: Albert Gordon MD at 20:11 EDT Tel , Service support , KUB X-Ray 02/24/21 21:35 IMPRESSION: Subdiaphragmatic enteric tube projecting within the stomach at 0010 Reported and signed by: Aleksandar Narayanan MD Electronically Signed: Aleksandar Narayanan MD at 0:09 EDT Tel , Service support , Physical Exam Resp normal respiratory effort Cardio Rate: tachycardic GI GI Narrative: Abdomen: Soft, nondistended, tender near incision's dressed clean dry and intact, no peritoneal signs Assessment & Plan Assessment/Plan (1) Postoperative incisional hernia: (2) SBO (small bowel obstruction): PLAN: There was less output from the NG overnight. Bowel function plan to DC NG and start clears. KUB pending from this morning Continue pain control lisa Shah M.D. Pager: [phone] [facility] [address] [place] [address], [facility], [address] [place] [address] Office: [phone]
--- NOTE | 2021-02-25 08:27 | RAD_ITS ---
STUDY: X-RAY - ABDOMEN/PELVIS REASON FOR EXAM: Female, 65 years old. SBO TECHNIQUE: Single AP view of the abdomen / pelvis. COMPARISON: 02/24/2021 FINDINGS: Nasogastric tube in the left upper quadrant likely in the body the stomach. Excreted contrast in the bladder. There is an unremarkable bowel gas pattern. The visualized liver, spleen and kidneys are grossly normal in size and morphology. Normal soft tissue structures. Normal visualized osseous structures. RAD/Abdomen Single View (Portable) IMPRESSION: 1. Nasogastric tube in the left upper quadrant likely in the body the stomach. 2. No bowel obstruction. 3. Excreted contrast in the bladder. Electronically Signed: Chet Pastrana MD at 8:43 EDT Tel , Service support ,
[2021-02-25] MEDS: Enoxaparin 40 MG/0.4 ML Syringe SC (11:22)
[2021-02-25 11:45] LABS: Bedside Glucose 196 mg/dL (70-110)
--- NOTE | 2021-02-25 12:25 | NURSING ---
NG hooked back to LIWS at this time.
--- NOTE | 2021-02-25 12:32 | PN.HOSP_ITS ---
Subjective Subjective Seen and examined. Patient went to the OR in the morning and had diagnostic laparoscopy, repair of incarcerated recurrent incisional hernia with mesh and extensive lysis of adhesions. Patient abdominal pain is well controlled. No cough, chest pain or shortness of breath. No fever. Patient did KUB in the morning. Objective Data Objective Data Vital Signs: Vital Signs Temp Pulse Resp BP Pulse Ox 98.4 F 106 H 16 126/73 H 90 02/25/21 11:16 02/25/21 11:16 02/25/21 11:16 02/25/21 11:16 02/25/21 11:16 Oxygen Flow Rate (L/min) 3 Oxygen Delivery Method Room Air Weight: 242 lb 4.608 oz Body Mass Index (BMI) 38.9 Intake & Output: Intake and Output for Last 24 Hours 02/23/21 02/24/21 02/25/21 23:59 23:59 23:59 Intake Total 300 / 300 1136.67 / 1136.67 Output Total 400 / 400 Balance 300 / 300 736.67 / 736.67 Lab / Micro Data Result Diagrams: 02/25/21 07:04 02/25/21 07:04 Labs: Laboratory Results - last 24 hr 02/24/21 18:00: WBC 17.2 H, RBC 6.56 H, Hgb 16.4 H, Hct 53.3 H, MCV 81.3, MCH 25.0 L, MCHC 30.8 L, RDW Std Deviation 46.7 H, RDW Coeff of Faby 17.5 H, Plt Count 289, MPV 9.5, Immature Gran % (Auto) 0.300, Neut % (Auto) 87.5 H, Lymph % (Auto) 5.3 L, [place] % (Auto) 6.2, Eos % (Auto) 0.4, Baso % (Auto) 0.3, Absolute Neuts (auto) 15.1 H, Absolute Lymphs (auto) 0.91, Nucleated RBC % 0 02/24/21 18:00: Sodium 136, Potassium 4.8, Chloride 103, Carbon Dioxide 27.0, Anion Gap 6, BUN 13, Creatinine 0.85, Estim Creat Clear Calc 60.95, Est GFR (MDRD) Af Amer 86, Est GFR (MDRD) Non-Af 71, BUN/Creatinine Ratio 15.3, Glucose 208 H, Calcium 10.8 H, Total Bilirubin 0.70, AST 32, ALT 36, Alkaline Phosphatase 129 H, Total Protein 9.3 H, Albumin 3.8, Globulin 5.5 H, Albumin/Globulin Ratio 0.7 L, Lipase 133 02/24/21 19:05: Lactic Acid 1.6 02/25/21 01:41: POC Glucose 228 H 02/25/21 02:39: POC Glucose 327 H 02/25/21 06:24: POC Glucose 205 H 02/25/21 07:04: WBC 11.3 H, RBC 5.43 H, Hgb 13.5, Hct 43.9, MCV 80.8 L, MCH 24.9 L, MCHC 30.8 L, RDW Std Deviation 45.9 H, RDW Coeff of Faby 16.1 H, Plt Count 213, MPV 9.2, Immature Gran % (Auto) 0.300, Neut % (Auto) 82.0 H, Lymph % (Auto) 6.7 L, [place] % (Auto) 10.2 H, Eos % (Auto) 0.5, Baso % (Auto) 0.3, Absolute Neuts (auto) 9.3 H, Absolute Lymphs (auto) 0.76 L, Nucleated RBC % 0 02/25/21 07:04: Sodium 137, Potassium 4.0, Chloride 106, Carbon Dioxide 25.0, Anion Gap 6, BUN 20 H, Creatinine 0.84, Estim Creat Clear Calc 61.67, Est GFR (MDRD) Af Amer 87, Est GFR (MDRD) Non-Af 72, BUN/Creatinine Ratio 23.8 H, Glucose 208 H, Calcium 8.8, Total Bilirubin 0.40, AST 18, ALT 27, Alkaline Phosphatase 92, Total Protein 6.8, Albumin 2.8 L, Globulin 4.0, Albumin/Globulin Ratio 0.7 L 02/25/21 11:38: POC Glucose 196 H Micro: Microbiology 02/24/21 20:48 Mucosa - Nose SARS-CoV-2 Antigen (Rapid) - Final Radiography Diagnostic Testing: Radiology Impression Abdomen/Pelvis CT 02/24/21 17:47 IMPRESSION: Findings concerning for small bowel obstruction with likely transition point in the distal ileum just proximal to the terminal ileum at an area of prior resection and anastomosis. Increased size of a umbilical hernia containing a short loop of small bowel. This could also be contributing to the small bowel obstruction. KUB X-Ray 02/24/21 21:35 IMPRESSION: Subdiaphragmatic enteric tube projecting within the stomach KUB X-Ray 02/25/21 08:27 IMPRESSION: 1. Nasogastric tube in the left upper quadrant likely in the body the stomach. 2. No bowel obstruction. 3. Excreted contrast in the bladder. Physical Exam Narrative General: Alert, Oriented x3, Cooperative HEENT: Atraumatic, PERRLA, EOMI, Normocephalic Oral: No Gingival or Mucosal Lesions/ Ulcerations Neck: Supple, No JVD, Negative Carotid Bruits Lungs: Air entry diminished in bilateral lung bases. No crepitation/rhonchi. No tachypnea Cardiovascular: Regular rate, Regular Rhythm, Normal S1, Normal S2, No murmurs Abdomen: Surgical port dressing is dry. Bowel Sounds absent, Soft, Non Tender, Non-Distended : No renal angle tenderness. No suprapubic tenderness. Extremities: No edema, Capillary Refill Less than 3 Seconds Skin: No rashes, No breakdown Musculoskeletal: No Tenderness to Palpation of Joints or Extremities Neurological: Cranial nerves II-XII grossly intact, Deep Tendon Reflexes 2+/4 and Symmetrical, Neuro grossly intact Psych/Mental Status: Normal Affect, Appropriate. Assessment & Plan Assessment/Plan (1) SBO (small bowel obstruction): (2) Recurrent incisional hernia with incarceration: PLAN: This 65-year-old female was admitted for incarcerated incisional hernia causing small bowel obstruction. 1. Incarcerated recurrent incisional hernia with small bowel obstruction: Patient had diagnostic laparoscopy, repair of incarcerated recurrent incisional hernia with mesh with extensive adhesiolysis. Patient is encouraged for incentive spirometry. PT and OT. NG tube left upper quadrant in the stomach. Continue IV fluid. Given n.p.o. status, oral medications are on hold 2. Hypertension: On IV hydralazine as needed. 3. Chronic/persistent A. fib: IV metoprolol. Oral metoprolol and Eliquis on hold. 3. Diabetes mellitus type 2: On Accu-Chek insulin is covered with Humalog sliding scale. 4. Other comorbidities include GERD, dyslipidemia and obesity grade 3, BMI 39.1 Kd per meter square: VT prophylaxis: On Lovenox 40 mg subcu daily. Discontinue if platelet count drops less than 50,000 or hemoglobin less than 8 g% Clinical Impression(s) from Imaging Studies Abdomen/Pelvis CT 02/24/21 17:47 IMPRESSION: Findings concerning for small bowel obstruction with likely transition point in the distal ileum just proximal to the terminal ileum at an area of prior resection and anastomosis. Increased size of a umbilical hernia containing a short loop of small bowel. This could also be contributing to the small bowel obstruction. KUB X-Ray 02/24/21 21:35 IMPRESSION: Subdiaphragmatic enteric tube projecting within the stomach KUB X-Ray 02/25/21 08:27 IMPRESSION: 1. Nasogastric tube in the left upper quadrant likely in the body the stomach. 2. No bowel obstruction. 3. Excreted contrast in the bladder. Electronically Signed: Chet Pastrana MD at 8:43 EDT Tel , Service support , Charges/Coding Visit Charges Inpatient E&M: 14810 Subs Hosp L2
--- NOTE | 2021-02-25 13:00 | CASEMGMT ---
RN RICHA TIRE LAYER CM to room to meet with patient for initial transition planning/care coordination assessment. AYE CHAUDHRY introduced self and role at [facility]. Pt voices understanding and consents to assessment at this time. Pt resting in bed in no distress at this time. Pt is A/O at this time and answers all questions appropriately. Care providers, pharmacy, and demographics verified/updated at this time. PCP: Dr Gaines Specialists: none Preferred Pharmacy: [facility] Insurance: [facility] Dual Prescription Benefit: yes Living Will/HPOA: Pt does not currently have LW/HCPOA and declines info at this time. LNOK: Boyfriend, Umer Garzon is only person pt wants listed on her contact list. She states she has a sister, Viki Larose, who lives in [place], and a brother, Julian Sher, who lives in [place], but she does not know their phone numbers. Their numbers are in her phone @ her apt per pt. Living Arrangements: Patient lives alone in first floor apartment 1 step and grab bar to enter the home. Patient states she is independent w/ADL's but states she has been falling @ home. Patient used to have aides for housekeeping thru [employer], but states they do not have aides available currently. Her CM is Marisa Gray. Gabriela notified. Transportation: [facility] takes her to get groceries. DME: Patient states she has raised toilet, cane, walker, and grab bars at home. She states is interested in getting a medical alert button. Pt provided w/information and also advised her to talk to her CM, Marisa, re: interest in this. She denies further need for DME. SNF/HHC: Pt states she has been falling @ home. Discussed options of SNF and HHC. Pt states she does not want to go to a SNF, even if recommended by therapy, stating I'm going home. I can do therapy @ home. Pt states would like HHC again. Pt was provided with list of HHC providers including quality and resource use data and consistent with the patient's preferred geographic region, medical needs, and insurance network. She had [facility] in the past and states is okay w/them again. Discussed [facility] as well and pt interested and agreeable to referral. Haroon Anders from [facility] notified of referral. Pt wishes to return home and states has no concerns with going home at time of discharge. CM to follow for any further discharge planning/needs. Pt voices no further concerns/needs at this time. Advised pt to ask for CM if any further questions/concerns/needs arise. Voices understanding. PLAN: Home w/HHC. Referral made w/[facility] to follow after HHC completed. Marily LÓPEZ RN CM
--- NOTE | 2021-02-25 13:26 | CASEMGMT ---
RN RICHA called [facility], spoke with Mehnaz to make referral for C. Pt has had agency in the past. Referral faxed at this time. Green sheet on the chart for possible w/e dc.
--- NOTE | 2021-02-25 14:37 | CASEMGMT ---
Social Work Note SW updated that pt has CM Kera Guadalupe and pt would like Medical Alert Button. KELLY placed a call to pt's CM Kera Guadalupe and updated her on pt's admission to [facility]. KELLY updated Kera that pt is interested in Medical Alert Button. Kera states pt already has one. Kera states pt has [facility] through [employer]. Kera states pt doesn't have an aide at this time. Green Sheet on chart for staff to let Kera know when pt is discharged and to fax discharge paperwork. Gabriela Clayton CUSTOMER SUPPORT CONSULTANT, UX RESEARCHER
[2021-02-25 17:46] LABS: Bedside Glucose 138 mg/dL (70-110)
--- NOTE | 2021-02-25 20:10 | NURSING ---
pt asked to see her nurse. When this RN entered the room, the NG was laying on the pt's abdomen. Pt states she doesn't like it and didn't want it. Notified
[2021-02-25 23:06] LABS: Bedside Glucose 148 mg/dL (70-110)
[2021-02-26] VITALS (14 sets, daily range): BP systolic 136–153; BP diastolic 70–78; PULSE 80–96; RESP 18–20; TEMP 36.4–36.9; O2SAT 92–95
[2021-02-26] MEDS: Metoprolol Tartrate 5 MG/5 ML Vial IV ×2 (05:46→13:38)
[2021-02-26] MEDS: 0.9% Saline Lock 10 ML Syringe IV ×2 (05:46→09:31)
[2021-02-26 06:01] LABS: Bedside Glucose 124 mg/dL (70-110)
--- NOTE | 2021-02-26 07:21 | PCM.PN.SRG ---
Subjective Subjective Patient had a bowel movement yesterday evening and her NG fell out. Patient reports no nausea or vomiting or abdominal pain overnight. Patient says he is passing flatus. Objective Data Objective Data Vital Signs: Vital Signs Temp Pulse Resp BP Pulse Ox 97.9 F 80 20 H 149/77 H 94 02/26/21 05:45 02/26/21 05:55 02/26/21 05:45 02/26/21 05:55 02/26/21 06:38 Oxygen Flow Rate (L/min) 1 Oxygen Delivery Method Nasal Cannula Weight: 241 lb 2.971 oz Body Mass Index (BMI) 38.9 Intake & Output: Intake and Output for Last 24 Hours 02/24/21 02/25/21 02/26/21 23:59 23:59 23:59 Intake Total 300 / 300 3073.34 / 3073.34 Output Total 900 / 900 Balance 300 / 300 2173.34 / 2173.34 Lab / Micro Data Result Diagrams: 02/25/21 07:04 02/25/21 07:04 Labs: Laboratory Results - last 24 hr 02/25/21 07:04: Sodium 137, Potassium 4.0, Chloride 106, Carbon Dioxide 25.0, Anion Gap 6, BUN 20 H, Creatinine 0.84, Estim Creat Clear Calc 61.67, Est GFR (MDRD) Af Amer 87, Est GFR (MDRD) Non-Af 72, BUN/Creatinine Ratio 23.8 H, Glucose 208 H, Calcium 8.8, Total Bilirubin 0.40, AST 18, ALT 27, Alkaline Phosphatase 92, Total Protein 6.8, Albumin 2.8 L, Globulin 4.0, Albumin/Globulin Ratio 0.7 L 02/25/21 11:38: POC Glucose 196 H 02/25/21 17:38: POC Glucose 138 H 02/25/21 23:01: POC Glucose 148 H 02/26/21 05:37: POC Glucose 124 H Micro: Microbiology 02/24/21 20:48 Mucosa - Nose SARS-CoV-2 Antigen (Rapid) - Final Radiography Diagnostic Testing: Radiology Impression KUB X-Ray 02/25/21 08:27 IMPRESSION: 1. Nasogastric tube in the left upper quadrant likely in the body the stomach. 2. No bowel obstruction. 3. Excreted contrast in the bladder. Electronically Signed: Chet Pastrana MD at 8:43 EDT Tel , Service support , Physical Exam Const oriented x3 and no apparent distress Resp normal respiratory effort Cardio regular rate and regular rhythm GI non-tender Inspection: abdominal distention Assessment & Plan Assessment/Plan (1) SBO (small bowel obstruction): PLAN: Patient had bowel movement and reports she is passing flatus. She still seems a little bit distended. I will start her on a clear liquid diet and when she is tolerating this and having ongoing bowel function I will advance. Likely discharge tomorrow. Heri Robin MD Pager: [facility] [address] [place] [address], [address] [place] [address] Office:
[2021-02-26 07:33] LABS: Absolute Lymphocyte Count 1.43 X10^3/uL (0.83-4.51); Absolute Neutrophil Count 3.5 X10^3/uL (2.0-7.7); Basophil# 0.03 X10^3/uL; Basophil% 0.5 % (0-1); Eosinophil# 0.11 X10^3/uL; Eosinophils% 1.9 % (0-5); Hematocrit 40.3 % (37-47); Hemoglobin 12.3 g/dL (12.0-15.0); Lymphocyte # 1.43 X10^3/ul (0.83-4.51); Lymphocyte % 24.4 % (19-41); Mean Corp Hgb Conc 30.5 g/dL (32-36); Mean Corpuscular Hgb 25.1 pg (27.0-32.0); Mean Corpuscular Volume 82.1 fL (81-99); Mean Platelet Vol. 10.1 fl (6.2-12.0); Monocyte% 13.6 % (0-10); NRBC Flagged by Analyzer 0 % (0-5); Neutrophil # 3.48 X10^3/uL (2.7-7.7); Neutrophil % 59.3 % (47-70); Platelet Count 192 K/mm3 (150-450); RBC Distribution Width CV 15.9 % (11.6-14.6); RBC Distribution Width SD 47.8 fl (35.1-43.9); Red Blood Count 4.91 M/mm3 (4.2-5.4); White Blood Count 5.9 K/mm3 (4.4-11.0)
[2021-02-26 07:52] LABS: Anion Gap 4 (5-15); BUN 13 mg/dL (7-18); BUN/Creat Ratio 33.2 RATIO (10-20); Calcium,Total 8.3 mg/dL (8.5-10.1); Chloride 109 mmol/L (98-107); Creatinine, Serum 0.39 mg/dL (0.55-1.02); EST Glomerular Filtration Rate 174 mL/min (>60); Est Glom Filt Rate - Afr Amer 210 mL/min (>60); Estimated Creatinine Clearance 51.81 ml/min; Glucose 123 mg/dL (74-106); Magnesium 1.3 mg/dL (1.6-2.6); Potassium 3.5 mmol/L (3.5-5.1); Sodium Level 141 mmol/L (136-145)
[2021-02-26] MEDS: 0.9% Normal Saline 1,000 ML 100 ML IV (09:17)
[2021-02-26] MEDS: Magnesium Sulfate 4gm/100mL 4 GM/100 ML IV.SOLN. IV (09:17)
[2021-02-26] MEDS: Enoxaparin 40 MG/0.4 ML Syringe SC (09:18)
[2021-02-26] MEDS: amLODIPine 10 MG Tablet PO (09:18)
[2021-02-26] MEDS: Lactated Ringers 1,000 ML 75 ML IV (09:31)
[2021-02-26] MEDS: Famotidine 200 MG/20 ML MDV 20 MG in 0.9% Normal Saline (Pres. free 8 ML 300 MG IV (09:31)
--- NOTE | 2021-02-26 12:16 | PN.HOSP_ITS ---
Subjective Subjective Seen and examined. Patient had bowel movement yesterday and passing flatus. No nausea or vomiting. NG tube fell off yesterday. No abdominal pain. Patient is started on clear liquid diet. Objective Data Objective Data Vital Signs: Vital Signs Temp Pulse Resp BP Pulse Ox 98.5 F 89 19 H 153/77 H 93 02/26/21 11:50 02/26/21 11:50 02/26/21 11:50 02/26/21 11:50 02/26/21 11:50 Oxygen Flow Rate (L/min) 1 Oxygen Delivery Method Nasal Cannula Weight: 241 lb 2.971 oz Body Mass Index (BMI) 38.9 Intake & Output: Intake and Output for Last 24 Hours 02/24/21 02/25/21 02/26/21 23:59 23:59 23:59 Intake Total 300 / 300 3073.34 / 3073.34 1010 / 1010 Output Total 900 / 900 Balance 300 / 300 2173.34 / 2173.34 1010 / 1010 Lab / Micro Data Result Diagrams: 02/26/21 06:42 02/26/21 06:42 Labs: Laboratory Results - last 24 hr 02/25/21 17:38: POC Glucose 138 H 02/25/21 23:01: POC Glucose 148 H 02/26/21 05:37: POC Glucose 124 H 02/26/21 06:42: WBC 5.9, RBC 4.91, Hgb 12.3, Hct 40.3, MCV 82.1, MCH 25.1 L, MCHC 30.5 L, RDW Std Deviation 47.8 H, RDW Coeff of Faby 15.9 H, Plt Count 192, MPV 10.1, Immature Gran % (Auto) 0.300, Neut % (Auto) 59.3, Lymph % (Auto) 24.4, [place] % (Auto) 13.6 H, Eos % (Auto) 1.9, Baso % (Auto) 0.5, Absolute Neuts (auto) 3.5, Absolute Lymphs (auto) 1.43, Nucleated RBC % 0 02/26/21 06:42: Sodium 141, Potassium 3.5, Chloride 109 H, Carbon Dioxide 28.0, Anion Gap 4 L, BUN 13, Creatinine 0.39 L, Estim Creat Clear Calc 51.81, Est GFR (MDRD) Af Amer 210, Est GFR (MDRD) Non-Af 174, BUN/Creatinine Ratio 33.2 H, Glucose 123 H, Calcium 8.3 L, Magnesium 1.3 L Micro: Microbiology 02/24/21 20:48 Mucosa - Nose SARS-CoV-2 Antigen (Rapid) - Final Physical Exam Narrative General: Alert, Oriented x3, Cooperative HEENT: Atraumatic, PERRLA, EOMI, Normocephalic Oral: No Gingival or Mucosal Lesions/ Ulcerations Neck: Supple, No JVD, Negative Carotid Bruits Lungs: Air entry diminished in bilateral lung bases. No crepitation/rhonchi. No tachypnea Cardiovascular: Regular rate, Regular Rhythm, Normal S1, Normal S2, No murmurs Abdomen: Surgical port dressing is dry.Soft, Non Tender, Non-Distended. Bowel sounds present sluggish : No renal angle tenderness. No suprapubic tenderness. Extremities: No edema, Capillary Refill Less than 3 Seconds Skin: No rashes, No breakdown Musculoskeletal: No Tenderness to Palpation of Joints or Extremities Neurological: Cranial nerves II-XII grossly intact, Deep Tendon Reflexes 2+/4 and Symmetrical, Neuro grossly intact Psych/Mental Status: Normal Affect, Appropriate. Assessment & Plan Assessment/Plan (1) SBO (small bowel obstruction): (2) Recurrent incisional hernia with incarceration: PLAN: This 65-year-old female was admitted for incarcerated incisional hernia causing small bowel obstruction. 1. Incarcerated recurrent incisional hernia with small bowel obstruction: Patient had diagnostic laparoscopy, repair of incarcerated recurrent incisional hernia with mesh with extensive adhesiolysis. Patient is encouraged for incentive spirometry. PT and OT. 02/26: Patient is started on clear liquid diet. NG tube fell off yesterday. IV fluid Ringer lactate decreased to 50 mils per hour. Surgeon note reviewed. Possible discharge tomorrow 2. Hypertension: On IV hydralazine as needed. 3. Chronic/persistent A. fib: IV metoprolol. Oral metoprolol and Eliquis on hold. 3. Diabetes mellitus type 2: On Accu-Chek insulin is covered with Humalog sliding scale. 4. Other comorbidities include GERD, dyslipidemia and obesity grade 3, BMI 39.1 Kd per meter square: VT prophylaxis: On Lovenox 40 mg subcu daily. Discontinue if platelet count drops less than 50,000 or hemoglobin less than 8 g% Clinical Impression(s) from Imaging Studies Abdomen/Pelvis CT 02/24/21 17:47 IMPRESSION: Findings concerning for small bowel obstruction with likely transition point in the distal ileum just proximal to the terminal ileum at an area of prior resection and anastomosis. Increased size of a umbilical hernia containing a short loop of small bowel. This could also be contributing to the small bowel obstruction. KUB X-Ray 02/24/21 21:35 IMPRESSION: Subdiaphragmatic enteric tube projecting within the stomach KUB X-Ray 02/25/21 08:27 IMPRESSION: 1. Nasogastric tube in the left upper quadrant likely in the body the stomach. 2. No bowel obstruction. 3. Excreted contrast in the bladder. Electronically Signed: Chet Pastrana MD at 8:43 EDT Tel , Service support , Charges/Coding Visit Charges Inpatient E&M: 75943 Subs Hosp L2
[2021-02-26 13:00] LABS: Bedside Glucose 148 mg/dL (70-110)
[2021-02-26] MEDS: Potassium Chloride 10mEq/100mL 10 MEQ/100 ML IV.SOLN. 100 MEQ IV BOLUS ×2 (13:32→14:50)
[2021-02-26] MEDS: Insulin Lispro 100 UNIT/ML INSULN.PEN SC ×2 (18:15→21:45)
[2021-02-26 18:25] LABS: Bedside Glucose 157 mg/dL (70-110)
[2021-02-26 21:51] LABS: Bedside Glucose 177 mg/dL (70-110)
[2021-02-26] MEDS: Carvedilol 12.5 MG Tablet PO (22:45)
[2021-02-26] MEDS: Famotidine 20 MG Tablet PO (22:45)
[2021-02-26] MEDS: oxyCODONE 5 MG Tablet PO (22:46)
[2021-02-27 03:00] VITALS: PULSE 80
[2021-02-27 04:02] VITALS: BP 154/79; PULSE 86; RESP 18; TEMP 36.6; O2SAT 94
[2021-02-27] MEDS: Insulin Lispro 100 UNIT/ML INSULN.PEN SC ×2 (05:52→12:14)
[2021-02-27 06:01] LABS: Bedside Glucose 226 mg/dL (70-110)
[2021-02-27 06:48] LABS: Anion Gap 4 (5-15); BUN 6 mg/dL (7-18); Chloride 106 mmol/L (98-107); Creatinine, Serum 0.38 mg/dL (0.55-1.02); EST Glomerular Filtration Rate 183 mL/min (>60); Est Glom Filt Rate - Afr Amer 221 mL/min (>60); Estimated Creatinine Clearance 51.81 ml/min; Glucose 160 mg/dL (74-106); Potassium 3.7 mmol/L (3.5-5.1); Sodium Level 138 mmol/L (136-145)
[2021-02-27 06:56] LABS: Absolute Lymphocyte Count 1.11 X10^3/uL (0.83-4.51); Absolute Neutrophil Count 3.9 X10^3/uL (2.0-7.7); Basophil# 0.03 X10^3/uL; Basophil% 0.5 % (0-1); Eosinophils% 1.8 % (0-5); Hematocrit 40.3 % (37-47); Hemoglobin 12.4 g/dL (12.0-15.0); Lymphocyte # 1.11 X10^3/ul (0.83-4.51); Lymphocyte % 19.6 % (19-41); Mean Corp Hgb Conc 30.8 g/dL (32-36); Mean Corpuscular Hgb 25.1 pg (27.0-32.0); Mean Corpuscular Volume 81.4 fL (81-99); Mean Platelet Vol. 9.4 fl (6.2-12.0); Monocyte# 0.51 X10^3/uL; NRBC Flagged by Analyzer 0 % (0-5); Neutrophil % 68.7 % (47-70); Platelet Count 188 K/mm3 (150-450); RBC Distribution Width CV 15.5 % (11.6-14.6); RBC Distribution Width SD 45.9 fl (35.1-43.9); Red Blood Count 4.95 M/mm3 (4.2-5.4); White Blood Count 5.7 K/mm3 (4.4-11.0)
--- NOTE | 2021-02-27 07:10 | PN.SURG_ITS ---
Subjective Subjective Patient lost her IV access overnight. She reports she is having no abdominal pain and tolerated clears yesterday. Objective Data Objective Data Vital Signs: Vital Signs Temp Pulse Resp BP Pulse Ox 98 F 86 18 154/79 H 94 02/27/21 04:02 02/27/21 04:02 02/27/21 04:02 02/27/21 04:02 02/27/21 04:02 Oxygen Flow Rate (L/min) 1 Oxygen Delivery Method Nasal Cannula Weight: 233 lb 8 oz Body Mass Index (BMI) 38.9 Intake & Output: Intake and Output for Last 24 Hours 02/25/21 02/26/21 02/27/21 23:59 23:59 23:59 Intake Total 3073.34 / 3073.34 3578.75 / 3578.75 300 / 300 Output Total 900 / 900 Balance 2173.34 / 2173.34 3578.75 / 3578.75 300 / 300 Lab / Micro Data Result Diagrams: 02/27/21 06:08 02/27/21 06:08 Labs: Laboratory Results - last 24 hr 02/26/21 06:42: WBC 5.9, RBC 4.91, Hgb 12.3, Hct 40.3, MCV 82.1, MCH 25.1 L, MCHC 30.5 L, RDW Std Deviation 47.8 H, RDW Coeff of Faby 15.9 H, Plt Count 192, MPV 10.1, Immature Gran % (Auto) 0.300, Neut % (Auto) 59.3, Lymph % (Auto) 24.4, [place] % (Auto) 13.6 H, Eos % (Auto) 1.9, Baso % (Auto) 0.5, Absolute Neuts (auto) 3.5, Absolute Lymphs (auto) 1.43, Nucleated RBC % 0 02/26/21 06:42: Sodium 141, Potassium 3.5, Chloride 109 H, Carbon Dioxide 28.0, Anion Gap 4 L, BUN 13, Creatinine 0.39 L, Estim Creat Clear Calc 51.81, Est GFR (MDRD) Af Amer 210, Est GFR (MDRD) Non-Af 174, BUN/Creatinine Ratio 33.2 H, Gl ucose 123 H, Calcium 8.3 L, Magnesium 1.3 L 02/26/21 12:32: POC Glucose 148 H 02/26/21 18:14: POC Glucose 157 H 02/26/21 21:45: POC Glucose 177 H 02/27/21 05:51: POC Glucose 226 H 02/27/21 06:08: WBC 5.7, RBC 4.95, Hgb 12.4, Hct 40.3, MCV 81.4, MCH 25.1 L, MCHC 30.8 L, RDW Std Deviation 45.9 H, RDW Coeff of Faby 15.5 H, Plt Count 188, MPV 9.4, Immature Gran % (Auto) 0.400, Neut % (Auto) 68.7, Lymph % (Auto) 19.6, [place] % (Auto) 9.0, Eos % (Auto) 1.8, Baso % (Auto) 0.5, Absolute Neuts (auto) 3.9, Absolute Lymphs (auto) 1.11, Nucleated RBC % 0 02/27/21 06:08: Sodium 138, Potassium 3.7, Chloride 106, Carbon Dioxide 28.0, Anion Gap 4 L, BUN 6 L, Creatinine 0.38 L, Estim Creat Clear Calc 51.81, Est GFR (MDRD) Af Amer 221, Est GFR (MDRD) Non-Af 183, BUN/Creatinine Ratio 16.0, Glucose 160 H, Calcium 9.0 Micro: Microbiology 02/24/21 20:48 Mucosa - Nose SARS-CoV-2 Antigen (Rapid) - Final Physical Exam Const oriented x3 and no apparent distress GI soft to palpation and non-tender Assessment & Plan Assessment/Plan (1) SBO (small bowel obstruction): PLAN: Patient tolerated clears and reports to me today that she is having no abdominal pain. I will advance her diet if she tolerates that she may be discharged home. Heri Robin MD Pager: [facility] [address] [place] [address], [address] [place] [address] Office:
--- NOTE | 2021-02-27 07:11 | DS.PCM_ITS ---
Providers Date of Admission: 02/25/21 Primary Care Physician: Dr. Nathaniel Gaines MD Reason For Visit: BOWEL OBTRUCTION Diagnosis Discharge Diagnosis (1) SBO (small bowel obstruction): Status: Acute Code(s): K56.609 - Unspecified intestinal obstruction, unspecified as to partial versus complete obstruction Medications at Discharge Home Medications omeprazole 20 mg PO DAILY 05/29/14 amlodipine 10 mg PO DAILY 10/04/16 apixaban 5 mg PO BID 10/04/16 atorvastatin 80 mg PO QHS tab 10/25/16 lisinopril 40 mg PO DAILY tab 10/25/16 glipizide 10 mg PO BID 08/03/20 metformin 1,000 mg PO BIDCM 08/03/20 carvedilol 12.5 mg PO BID 01/23/21 furosemide [Lasix] 80 mg PO DAILY 01/23/21 potassium chloride 10 meq PO BID 01/23/21 Januvia 100 mg PO DAILY 02/25/21 diphenoxylate-atropine tab 02/25/21 Hospital Course Summary of Care Provided Hospital Course: Patient was admitted through the emergency room with a small bowel obstruction caused by a ventral hernia. The ventral hernia was repaired and the bowel was returned to the abdomen. Once patient started passing flatus I started her on a clear liquid diet. She tolerated clear liquids and was having no abdominal pain and her diet was advanced. Weight / BMI Weight Weight: 233 lb 8 oz Body Mass Index (BMI) 38.9 ABG / Lab / Microbiology Data Result Diagrams: 02/27/21 06:08 02/27/21 06:08 Laboratory: Laboratory Results - last 24 hr 02/26/21 06:42: WBC 5.9, RBC 4.91, Hgb 12.3, Hct 40.3, MCV 82.1, MCH 25.1 L, MCHC 30.5 L, RDW Std Deviation 47.8 H, RDW Coeff of Faby 15.9 H, Plt Count 192, MPV 10.1, Immature Gran % (Auto) 0.300, Neut % (Auto) 59.3, Lymph % (Auto) 24.4, [place] % (Auto) 13.6 H, Eos % (Auto) 1.9, Baso % (Auto) 0.5, Absolute Neuts (auto) 3.5, Absolute Lymphs (auto) 1.43, Nucleated RBC % 0 02/26/21 06:42: Sodium 141, Potassium 3.5, Chloride 109 H, Carbon Dioxide 28.0, Anion Gap 4 L, BUN 13, Creatinine 0.39 L, Estim Creat Clear Calc 51.81, Est GFR (MDRD) Af Amer 210, Est GFR (MDRD) Non-Af 174, BUN/Creatinine Ratio 33.2 H, Glucose 123 H, Calcium 8.3 L, Magnesium 1.3 L 02/26/21 12:32: POC Glucose 148 H 02/26/21 18:14: POC Glucose 157 H 02/26/21 21:45: POC Glucose 177 H 02/27/21 05:51: POC Glucose 226 H 02/27/21 06:08: WBC 5.7, RBC 4.95, Hgb 12.4, Hct 40.3, MCV 81.4, MCH 25.1 L, MCHC 30.8 L, RDW Std Deviation 45.9 H, RDW Coeff of Faby 15.5 H, Plt Count 188, MPV 9.4, Immature Gran % (Auto) 0.400, Neut % (Auto) 68.7, Lymph % (Auto) 19.6, [place] % (Auto) 9.0, Eos % (Auto) 1.8, Baso % (Auto) 0.5, Absolute Neuts (auto) 3.9, Absolute Lymphs (auto) 1.11, Nucleated RBC % 0 02/27/21 06:08: Sodium 138, Potassium 3.7, Chloride 106, Carbon Dioxide 28.0, Anion Gap 4 L, BUN 6 L, Creatinine 0.38 L, Estim Creat Clear Calc 51.81, Est GFR (MDRD) Af Amer 221, Est GFR (MDRD) Non-Af 183, BUN/Creatinine Ratio 16.0, Glucose 160 H, Calcium 9.0 Microbiology: Microbiology 02/24/21 20:48 Mucosa - Nose SARS-CoV-2 Antigen (Rapid) - Final D/C Instructions Discharge Diet: Light diet - advance as tolerated Discharge Activity: May Shower Lifting Restrictions: 20 lbs for 4 weeks Call your doctor if your incision/area has: Continuous Slow Oozing, Sudden I ncreased Bleeding, Increased Pain/ Swelling, Increased Redness, Foul Smelling Discharge and Swelling at the incision site Call your doctor if you observe: Fever of 101 or Higher Remove Dressing in: 1 day Cleanse incision/area with: Soap & Water Please Follow Up With: An Shah MD When: Please call to schedule 1 week follow up appointment. [phone] Meaningful Use Info Meaningful Use Diagnoses (Choose all that apply): None applicable Discharge Plan Admission Admit Date/Time: 02/25/21 06:29 Attending Provider: An Shah Primary Care Provider: Nathaniel Gaines Discharge Orders/Prescriptions Prescriptions: Continued omeprazole 20 MG capsule 20 mg PO DAILY RF: 0 amlodipine 10 MG tablet 10 mg PO DAILY RF: 0 apixaban 5 MG tablet 5 mg PO BID RF: 0 atorvastatin 80 MG tablet 80 mg PO QHS RF: 0 lisinopril 40 MG tablet 40 mg PO DAILY RF: 0 glipizide 10 MG tablet 10 mg PO BID RF: 0 metformin 1,000 MG tablet 1,000 mg PO BIDCM RF: 0 carvedilol 12.5 mg tablet 12.5 mg PO BID RF: 0 potassium chloride 10 mEq Tablet Extended Release 10 meq PO BID RF: 0 furosemide [Lasix] 80 mg Tablet 80 mg PO DAILY RF: 0 diphenoxylate-atropine 2.5-0.025 mg tablet RF: 0 Januvia 100 mg Tablet 100 mg PO DAILY RF: 0 Referrals / Follow Up: Nathaniel Gaines MD [Primary Care Provider] - Disposition Disposition (needs filled in before D/C Order can be placed): Home Health Service
[2021-02-27] MEDS: Carvedilol 12.5 MG Tablet PO (08:16)
[2021-02-27] MEDS: Enoxaparin 40 MG/0.4 ML Syringe SC (08:16)
[2021-02-27] MEDS: Famotidine 20 MG Tablet PO (08:16)
[2021-02-27] MEDS: amLODIPine 10 MG Tablet PO (08:16)
[2021-02-27 09:30] VITALS: PULSE 87
[2021-02-27 10:00] VITALS: BP 145/70; PULSE 79; RESP 19; TEMP 36.7; O2SAT 98
--- NOTE | 2021-02-27 11:23 | PCM.PN.HOSP ---
Subjective Subjective Patient tolerated clear liquid diet yesterday. Moving bowels and flatus. Diet is advanced. Objective Data Objective Data Vital Signs: Vital Signs Temp Pulse Resp BP Pulse Ox 98.0 F 79 19 H 145/70 H 98 02/27/21 10:00 02/27/21 10:00 02/27/21 10:00 02/27/21 10:00 02/27/21 10:00 Oxygen Flow Rate (L/min) 1 Oxygen Delivery Method Room Air Weight: 233 lb 8 oz Body Mass Index (BMI) 38.9 Intake & Output: Intake and Output for Last 24 Hours 02/25/21 02/26/21 02/27/21 23:59 23:59 23:59 Intake Total 3073.34 / 3073.34 3578.75 / 3578.75 300 / 300 Output Total 900 / 900 Balance 2173.34 / 2173.34 3578.75 / 3578.75 300 / 300 Lab / Micro Data Result Diagrams: 02/27/21 06:08 02/27/21 06:08 Labs: Laboratory Results - last 24 hr 02/26/21 12:32: POC Glucose 148 H 02/26/21 18:14: POC Glucose 157 H 02/26/21 21:45: POC Glucose 177 H 02/27/21 05:51: POC Glucose 226 H 02/27/21 06:08: WBC 5.7, RBC 4.95, Hgb 12.4, Hct 40.3, MCV 81.4, MCH 25.1 L, MCHC 30.8 L, RDW Std Deviation 45.9 H, RDW Coeff of Faby 15.5 H, Plt Count 188, MPV 9.4, Immature Gran % (Auto) 0.400, Neut % (Auto) 68.7, Lymph % (Auto) 19.6, [place] % (Auto) 9.0, Eos % (Auto) 1.8, Baso % (Auto) 0.5, Absolute Neuts (auto) 3.9, Absolute Lymphs (auto) 1.11, Nucleated RBC % 0 02/27/21 06:08: Sodium 138, Potassium 3.7, Chloride 106, Carbon Dioxide 28.0, Anion Gap 4 L, BUN 6 L, Creatinine 0.38 L, Estim Creat Clear Calc 51.81, Est GFR (MDRD) Af Amer 221, Est GFR (MDRD) Non-Af 183, BUN/Creatinine Ratio 16.0, Glucose 160 H, Calcium 9.0 Micro: Microbiology 02/24/21 20:48 Mucosa - Nose SARS-CoV-2 Antigen (Rapid) - Final Physical Exam Narrative Seen and examined General: Alert, Oriented x3, Cooperative HEENT: Atraumatic, PERRLA, EOMI, Normocephalic Oral: No Gingival or Mucosal Lesions/ Ulcerations Neck: Supple, No JVD, Negative Carotid Bruits Lungs: Air entry diminished in bilateral lung bases. No crepitation/rhonchi. No tachypnea/hypoxia Cardiovascular: Regular rate, Regular Rhythm, Normal S1, Normal S2, No murmurs Abdomen: Surgical port dressing is dry.Soft, Non Tender, Non-Distended. Bowel sounds present. : No renal angle tenderness. No suprapubic tenderness. Extremities: No edema, Capillary Refill Less than 3 Seconds Skin: No rashes, No breakdown Musculoskeletal: No Tenderness to Palpation of Joints or Extremities Neurological: Cranial nerves II-XII grossly intact, Deep Tendon Reflexes 2+/4 and Symmetrical, Neuro grossly intact Psych/Mental Status: Normal Affect, Appropriate. Assessment & Plan Assessment/Plan (1) SBO (small bowel obstruction): (2) Recurrent incisional hernia with incarceration: PLAN: This 65-year-old female was admitted for incarcerated incisional hernia causing small bowel obstruction. 1. Incarcerated recurrent incisional hernia with small bowel obstruction: Patient had diagnostic laparoscopy, repair of incarcerated recurrent incisional hernia with mesh with extensive adhesiolysis. Patient is encouraged for incentive spirometry. PT and OT. 02/26: Patient is started on clear liquid diet. NG tube fell off yesterday. IV fluid Ringer lactate decreased to 50 mils per hour. Surgeon note reviewed. 02/27: Diet advanced to regular diet. Anticipate discharge today if he tolerates. Resume her home medications. 2. Hypertension: On IV hydralazine as needed. 3. Chronic/persistent A. fib: IV metoprolol. Resume oral metoprolol. Resume Eliquis at home 3. Diabetes mellitus type 2: On Accu-Chek insulin is covered with Humalog sliding scale. 4. Other comorbidities include GERD, dyslipidemia and obesity grade 3, BMI 39.1 Kd per meter square VT prophylaxis: On Lovenox 40 mg subcu daily. Discontinue if platelet count drops less than 50,000 or hemoglobin less than 8 g% Patient is medically stable for discharge. Clinical Impression(s) from Imaging Studies Abdomen/Pelvis CT 02/24/21 17:47 IMPRESSION: Findings concerning for small bowel obstruction with likely transition point in the distal ileum just proximal to the terminal ileum at an area of prior resection and anastomosis. Increased size of a umbilical hernia containing a short loop of small bowel. This could also be contributing to the small bowel obstruction. KUB X-Ray 02/24/21 21:35 IMPRESSION: Subdiaphragmatic enteric tube projecting within the stomach KUB X-Ray 02/25/21 08:27 IMPRESSION: 1. Nasogastric tube in the left upper quadrant likely in the body the stomach. 2. No bowel obstruction. 3. Excreted contrast in the bladder. Electronically Signed: Chet Pastrana MD at 8:43 EDT Tel , Service support , Charges/Coding Visit Charges Inpatient E&M: 35880 Subs Hosp L2
[2021-02-27 12:20] LABS: Bedside Glucose 194 mg/dL (70-110)
[2021-02-27 14:37] VITALS: PULSE 82
[2021-02-27 16:00] VITALS: BP 144/70; PULSE 79; RESP 18; TEMP 36.7; O2SAT 98
--- NOTE | 2021-02-28 15:44 | CASEMGMT ---
AYE CHAUDHRY Discharge Follow-up Phone Call: BENITA: Matias Strata: 3 Call Date: 02/28/21 Discharge Date: 02/27/21 Time of Call: 1540 Duration: 5 Admitting Diagnosis: Bowel obstruction AYE CHAUDHRY completed follow-up phone call after recent hospitalization. Patient states she is sore but doing ok. Patient was setup with [facility] and still awaiting call for start of care. Patient states she has follow-up appts scheduled. Patient had no further questions or concerns at this time. AYE CHAUDHRY called and spoke with [facility] regarding when they will initiate start of care and requested they update the patient.
--- NOTE | 2021-03-14 10:25 | CCN.REFER ---
PATIENT ORIGINALLY AGREED TO [facility]. SHE HAS SINCE DECLINED NOW THAT HOME HEALTH HAS DISCHARGED HER. SHE WAS RECEIVING SERVICES THROUGH [facility]. STATES I AM DONE WITH PEOPLE COMING INTO MY HOME.
== END 2021-02-27 16:03 | disposition home health service (06) | DRG 336 ==
LOC: ED 19:02 → MS3 21:51 → SDC 02-25 14:14
PROVIDERS: Family Medicine; Internal Medicine; Admitting Provider Surgery; Emergency Provider Student in an Organized Health Care Education/Training Program; PCP Family Medicine; Visit Provider Surgery
DX: K43.0 Incisional hernia with obstruction, without gangrene (principal); I48.19 Other persistent atrial fibrillation; K42.9 Umbilical hernia without obstruction or gangrene; K66.0 Peritoneal adhesions (postprocedural) (postinfection); E11.9 Type 2 diabetes mellitus without complications; E66.9 Obesity, unspecified; E78.5 Hyperlipidemia, unspecified; G47.33 Obstructive sleep apnea (adult) (pediatric); I10 Essential (primary) hypertension; I48.0 Paroxysmal atrial fibrillation; K21.9 Gastro-esophageal reflux disease without esophagitis; Z87.891 Personal history of nicotine dependence; Z86.73 Personal history of transient ischemic attack (TIA), and cerebral infarction without residual deficits; Z68.38 Body mass index [BMI] 38.0-38.9, adult; Z79.899 Other long term (current) drug therapy; Z79.84 Long term (current) use of oral hypoglycemic drugs; Z87.19 Personal history of other diseases of the digestive system
CPT/HCPCS: 36415; 74018; 74177; 80048; 80053; 82962; 83605; 83690; 83735; 85025; 87426; 88302; 93005; 94640; 94762; 99251; 99285; J7030; J7120; Q9967; A4216; C1781; G0463; J0744; J2405; J3490

== ENCOUNTER 2021-04-03 18:15 | Emergency (ER) | payer MEDICARE, MEDICAID, SELFPAY ==
[2021-04-03 18:16] VITALS: BP 144/79; PULSE 86; RESP 16; TEMP 36.3; O2SAT 99; BMI 37.1
--- NOTE | 2021-04-03 19:18 | EDS_ITS ---
HPI HPI - GI History of Present Illness Chief Complaint: Abd Pain Narrative Narrative: 65-year-old female presenting with right lower abdominal pain she has a history of a hernia here. She states it was hurting a little bit earlier but does not currently hurt. She states she is having normal bowel movements and stool. She states that she is not have any urinary complaints. She denies nausea or vomiting. Patient states he has had problems with his hernia in the past that required surgical repair. She is also had small bowel obstructions. She states this current hernia has been out for about 2 weeks. She has not called her surgeon or been evaluated elsewhere. [facility] Medical History Atrial fibrillation Diabetes mellitus Embolic stroke GERD (gastroesophageal reflux disease) Hyperlipidemia Hypertension Incarcerated ventral hernia Intraventricular hemorrhage Obesity (BMI 30-39.9) Obstructive sleep apnea Recurrent incisional hernia with incarceration Home Medications omeprazole 20 mg PO DAILY 05/29/14 [History Last Taken 02/23/21] amlodipine 10 mg PO DAILY 10/04/16 [History Last Taken 02/23/21] apixaban 5 mg PO BID 10/04/16 [History Last Taken 02/23/21] atorvastatin 80 mg PO QHS tab 10/25/16 [Rx Last Taken 02/23/21] lisinopril 40 mg PO DAILY tab 10/25/16 [Rx Last Taken 02/23/21] glipizide 10 mg PO BID 08/03/20 [History Last Taken 02/23/21] metformin 1,000 mg PO BIDCM 08/03/20 [History Last Taken 02/23/21] carvedilol 12.5 mg PO BID 01/23/21 [History Last Taken 02/23/21] furosemide [Lasix] 80 mg PO DAILY 01/23/21 [History Last Taken 02/23/21] potassium chloride 10 meq PO BID 01/23/21 [History Last Taken 02/23/21] Januvia 100 mg PO DAILY 02/25/21 [History Last Taken 02/23/21] diphenoxylate-atropine tab 02/25/21 [History Last Taken Unknown] Allergy/AdvReac Type Severity Reaction Status Date / Time iodine Allergy Mild Itching Verified 04/03/21 18:16 Penicillins Allergy Mild Itching Verified 04/03/21 18:16 Family History Father CVA (cerebral vascular accident) Mother Diabetes Surgical History History of hysterectomy S/P repair of ventral hernia Status post debridement Social History household members: none Smoking Status: Former smoker alcohol intake: never substance use type: does not use ROS ROS ED Constitutional Constitutional ED: Denies chills or fever(s) ENT ENT ED: Denies rhinorrhea or sore throat Cardiovascular Cardiovascular: Denies chest pain or palpitations Respiratory/Chest Respiratory/Chest: Denies cough, dyspnea or sputum Gastrointestinal Gastrointestinal: Reports abdominal pain; Denies constipation, diarrhea, nausea or vomiting Genitourinary Genitourinary ED: Denies dysuria or hematuria Musculoskeletal Musculoskeletal: Denies arthralgias or myalgias Integumentary Denies abscess or rash Neurologic Neurologic: Denies headache(s) or paresthesias Psychiatric Psychiatric: Denies anxiety or depression EXAM Physical Exam Const Vital Signs: 04/03/21 18:16 Temperature 97.4 F L Temperature Source Temporal Pulse Rate 86 Respiratory Rate 16 Blood Pressure 144/79 H Blood Pressure Mean 100 Pulse Ox 99 Oxygen Delivery Method Room Air Positive obese General Appearance ED: NAD Nutritional Appearance: obese HEENT Reports moist mucous membranes normocephalic and atraumatic Eyes PERRL and EOMs intact bilaterally Resp normal respiratory effort and clear to auscultation bilaterally Cardio regular rate and regular rhythm GI GI Narrative: Large area the size of a orange in the right lower quadrant which is not exquisitely tender to palpation. Is nonreducible. There is no surrounding cellulitis. There is old surgical scars which appear to be well- healed. This is not fluctuant. Neuro Sensorium / Orientation: alert, oriented to person, oriented to place and oriented to time Psych mental status grossly normal Skin Lesions: no lesions Rashes: no rashes MDM MDM MDM Narrative Medical decision making narrative: Patient presenting with hernia. Patient states this is been out for 2 weeks. She had hernia repair before. I did obtain blood work which is normal. I did premedicate the patient with Solu- Medrol and Benadryl due to her allergy to contrast dye being itching. Prior to patient getting a CT of the abdomen pelvis that she stated that she wanted to go home and that she was hungry. I did recommend a CT given that she has a hernia which has been out for 2 weeks. This is not exquisitely painful however. Patient does not request anything for pain. When I went back to reevaluate her she had left to the emergency room. Impression: 1. Ventral wall hernia Lab Data Labs: Laboratory Results - last 24 hr 04/03/21 04/03/21 19:22 19:22 WBC 5.9 RBC 5.19 Hgb 13.2 Hct 42.5 MCV 81.9 MCH 25.4 L MCHC 31.1 L RDW Std Deviation 48.2 H RDW Coeff of Faby 16.1 H Plt Count 194 MPV 9.5 Immature Gran % (Auto) 0.700 Neut % (Auto) 52.0 Lymph % (Auto) 33.6 Duchesne % (Auto) 10.3 H Eos % (Auto) 2.7 Baso % (Auto) 0.7 Absolute Neuts (auto) 3.1 Absolute Lymphs (auto) 1.99 Nucleated RBC % 0 Sodium 136 Potassium 5.2 H Chloride 102 Carbon Dioxide 29.0 Anion Gap 5 BUN 10 Creatinine 0.60 Estim Creat Clear Calc 51.81 Est GFR (MDRD) Af Amer 128 Est GFR (MDRD) Non-Af 106 BUN/Creatinine Ratio 16.7 Glucose 179 H Calcium 9.7 Total Bilirubin 0.50 AST 44 H ALT 36 Alkaline Phosphatase 104 Total Protein 7.8 Albumin 3.0 L Globulin 4.8 H Albumin/Globulin Ratio 0.6 L Lipase 196 Discharge Plan Triage Chief Complaint: Abd Pain ED Provider: Horace Anton Dx/Rx/DC Orders Instructions: ED Hernia (Adult) Prescriptions: No Action omeprazole 20 MG capsule 20 mg PO DAILY RF: 0 amlodipine 10 MG tablet 10 mg PO DAILY RF: 0 apixaban 5 MG tablet 5 mg PO BID RF: 0 atorvastatin 80 MG tablet 80 mg PO QHS RF: 0 lisinopril 40 MG tablet 40 mg PO DAILY RF: 0 glipizide 10 MG tablet 10 mg PO BID RF: 0 metformin 1,000 MG tablet 1,000 mg PO BIDCM RF: 0 carvedilol 12.5 mg tablet 12.5 mg PO BID RF: 0 potassium chloride 10 mEq Tablet Extended Release 10 meq PO BID RF: 0 furosemide [Lasix] 80 mg Tablet 80 mg PO DAILY RF: 0 diphenoxylate-atropine 2.5-0.025 mg tablet RF: 0 Januvia 100 mg Tablet 100 mg PO DAILY RF: 0 Primary Care Provider: Nathaniel Gaines Referrals: Nathaniel Gaines MD [Primary Care Provider] - An Shah MD [STAFF PHYSICIAN] - As soon as possible Disposition Disposition: Against Medical Advice Discharge Date/Time: 04/03/21 22:00
[2021-04-03] MEDS: DiphenhydrAMINE 50 MG/ML Syringe 25 MG IV (19:20)
[2021-04-03 19:32] LABS: Absolute Lymphocyte Count 1.99 X10^3/uL (0.83-4.51); Absolute Neutrophil Count 3.1 X10^3/uL (2.0-7.7); Basophil# 0.04 X10^3/uL; Basophil% 0.7 % (0-1); Eosinophil# 0.16 X10^3/uL; Eosinophils% 2.7 % (0-5); Hematocrit 42.5 % (37-47); Hemoglobin 13.2 g/dL (12.0-15.0); Lymphocyte # 1.99 X10^3/ul (0.83-4.51); Lymphocyte % 33.6 % (19-41); Mean Corp Hgb Conc 31.1 g/dL (32-36); Mean Corpuscular Hgb 25.4 pg (27.0-32.0); Mean Corpuscular Volume 81.9 fL (81-99); Mean Platelet Vol. 9.5 fl (6.2-12.0); Monocyte# 0.61 X10^3/uL; Monocyte% 10.3 % (0-10); NRBC Flagged by Analyzer 0 % (0-5); Neutrophil # 3.08 X10^3/uL (2.7-7.7); Platelet Count 194 K/mm3 (150-450); RBC Distribution Width CV 16.1 % (11.6-14.6); RBC Distribution Width SD 48.2 fl (35.1-43.9); Red Blood Count 5.19 M/mm3 (4.2-5.4); White Blood Count 5.9 K/mm3 (4.4-11.0)
[2021-04-03 20:18] LABS: ALB/GLOB Ratio 0.6 RATIO (0.9-2.4); AST(SGOT) 44 U/L (15-37); Alanine Aminotransfer ALT/SGPT 36 U/L (13-56); Alkaline Phosphatase 104 U/L (45-117); Anion Gap 5 (5-15); BUN 10 mg/dL (7-18); BUN/Creat Ratio 16.7 RATIO (10-20); Calcium,Total 9.7 mg/dL (8.5-10.1); Chloride 102 mmol/L (98-107); EST Glomerular Filtration Rate 106 mL/min (>60); Est Glom Filt Rate - Afr Amer 128 mL/min (>60); Estimated Creatinine Clearance 51.81 ml/min; Globulin 4.8 g/dL (2.2-4.2); Glucose 179 mg/dL (74-106); Lipase 196 U/L (73-393); Potassium 5.2 mmol/L (3.5-5.1); Protein, Total 7.8 g/dL (6.4-8.2); Sodium Level 136 mmol/L (136-145)
[2021-04-03] MEDS: MethylPREDNISolone 125 MG/2 ML Vial 60 MG IV (20:21)
== END 2021-04-03 22:00 | disposition left against medical advice (07) ==
PROVIDERS: Emergency Provider Student in an Organized Health Care Education/Training Program; PCP Family Medicine
DX: K43.9 Ventral hernia without obstruction or gangrene (principal); Z87.891 Personal history of nicotine dependence; I10 Essential (primary) hypertension; E78.5 Hyperlipidemia, unspecified; E11.9 Type 2 diabetes mellitus without complications; E66.9 Obesity, unspecified; Z68.37 Body mass index [BMI] 37.0-37.9, adult; G47.33 Obstructive sleep apnea (adult) (pediatric); I48.91 Unspecified atrial fibrillation; K21.9 Gastro-esophageal reflux disease without esophagitis; Z87.19 Personal history of other diseases of the digestive system; Z79.01 Long term (current) use of anticoagulants; Z79.84 Long term (current) use of oral hypoglycemic drugs; Z79.899 Other long term (current) drug therapy
CPT/HCPCS: 80053; 83690; 85025; 96374; 96375; 99284; A4216

== ENCOUNTER → 2021-04-21 12:10 | Outpatient (CLI) | payer MEDICARE, MEDICAID, SELFPAY ==
--- NOTE | 2021-04-21 12:15 | CT_ITS ---
STUDY: CT ABDOMEN AND PELVIS WITHOUT CONTRAST REASON FOR EXAM: Female, 65 years old. Abdominal pain. History of diverticulitis. The patient is status post colostomy and reversal. RADIATION DOSAGE (If Supplied By Facility): CTDIvol = ( 23.32 ) mGy, DLP = ( 1106.89 ) mGycm TECHNIQUE: Transaxial images were obtained from the dome of the diaphragm to the symphysis pubis with oral contrast, and without intravenous contrast. Sagittal and coronal images were reconstructed. Individualized dose optimization techniques were used for this CT. COMPARISON: Comparison is made with prior study dated 02/24/2021. FINDINGS: The visualized lung bases are unremarkable. The visualized portions of the heart are within normal limits. There is decreased attenuation of the liver consistent with steatosis. Normal gallbladder and extrahepatic biliary system. Normal spleen. There is diffuse atrophy of the pancreas. Normal bilateral adrenal glands. Normal right kidney. Normal left kidney. There is a small hiatal hernia. Normal small intestine. Surgical anastomosis is seen in the sigmoid colon. There is non-visualization of the appendix. There is diffuse atherosclerotic calcification of the abdominal aorta and its major visceral branches, without a demonstrated aneurysm. Normal inferior vena cava. There is borderline retroperitoneal lymphadenopathy with enlarged nodes no greater than 10mm in the short axis diameter. Normal urinary bladder. There is absence of the uterus consistent with a prior hysterectomy. There is a 3 cm x 4.3 cm x 5.1 cm well-defined fluid collection in the subcutaneous tissues to the right of the midline just distal to the level of the umbilicus. This most likely represent postoperative seroma. There are diffuse degenerative changes of the visualized lumbar spine. CT/Abdomen/Pelvis without Cont IMPRESSION: There is a 3 cm x 4.3 cm x 5.1 cm well-defined fluid collection in the subcutaneous tissues to the right side of the midline just distal to the level of the umbilicus compatible with postoperative seroma. Electronically Signed: Yonas Stroud MD at 13:03 EDT , Service support ,
== END ==
PROVIDERS: PCP Family Medicine; Referring Provider Surgery; Visit Provider Surgery
DX: R10.9 Unspecified abdominal pain (principal)
CPT/HCPCS: 74176

== ENCOUNTER 2021-11-10 17:22 | Emergency (ER) | payer MEDICARE, MEDICAID, SELFPAY ==
[2021-11-10 17:24] VITALS: BP 134/69; PULSE 96; RESP 15; TEMP 36.4; O2SAT 98; BMI 37.8
[2021-11-10 17:28] VITALS: BP 134/69; PULSE 94; RESP 16; O2SAT 95
--- NOTE | 2021-11-10 17:34 | EDS_ITS ---
HPI HPI - GI History of Present Illness Chief Complaint: Abd Pain Detail of Chief Complaint: Nominal pain superior aspect of the midline supraumbilical scar. Informant: patient Abdominal Pain/Flank Pain Onset: Today Context: Sudden Onset Timing: Continuous Quality: Aching Location: - (Midline in the proximity of the superiormost portion of the midline supraumbilical incision) Current Severity: Mild (After apparent reduction of ventral hernia) Maximum Severity: Severe Worsened by: Nothing Relieved by: Nothing Nausea/Vomiting/Emesis GI Symptom: Negative for Nausea and Vomiting Diarrhea/Melena/Hematochezia GI Symptom: Negative for Diarrhea, Melena and Hematochezia Associated Symptoms Associated Symptoms: Negative for Dysuria, Frequency and Hematuria Narrative Narrative: Patient is a 65-year-old woman who called squad because of pain that she localizes to the superior portion of her midline supraumbilical incision. She has had history of chronic pain. This got worse. She denies nausea, vomiting or diarrhea. She states she had 2 loose stools yesterday. She denies black or maroon-colored stool. She denies mucus in her stool. She denies u rologic symptoms. She denies cardiovascular symptoms. Prior similar symptoms: No Recent Illness/Hospitalization: No PFSH PFSH Medical History Atrial fibrillation Diabetes mellitus Embolic stroke GERD (gastroesophageal reflux disease) Hyperlipidemia Hypertension Incarcerated ventral hernia Intraventricular hemorrhage Obesity (BMI 30-39.9) Obstructive sleep apnea Recurrent incisional hernia with incarceration Home Medications omeprazole 20 mg PO DAILY 05/29/14 [History Last Taken 02/23/21] amlodipine 10 mg PO DAILY 10/04/16 [History Last Taken 02/23/21] apixaban 5 mg PO BID 10/04/16 [History Last Taken 02/23/21] atorvastatin 80 mg PO QHS tab 10/25/16 [Rx Last Taken 02/23/21] lisinopril 40 mg PO DAILY tab 10/25/16 [Rx Last Taken 02/23/21] glipizide 10 mg PO BID 08/03/20 [History Last Taken 02/23/21] metformin 1,000 mg PO BIDCM 08/03/20 [History Last Taken 02/23/21] carvedilol 12.5 mg PO BID 01/23/21 [History Last Taken 02/23/21] furosemide [Lasix] 80 mg PO DAILY 01/23/21 [History Last Taken 02/23/21] potassium chloride 10 meq PO BID 01/23/21 [History Last Taken 02/23/21] Januvia 100 mg PO DAILY 02/25/21 [History Last Taken 02/23/21] diphenoxylate-atropine tab 02/25/21 [History Last Taken Unknown] Allergy/AdvReac Type Severity Reaction Status Date / Time iodine Allergy Mild Itching Verified 11/10/21 17:24 Penicillins Allergy Mild Itching Verified 11/10/21 17:24 Family History Father CVA (cerebral vascular accident) Mother Diabetes Surgical History History of hysterectomy S/P repair of ventral hernia Status post debridement Social History household members: none Smoking Status: Former smoker alcohol intake: never substance use type: does not use ROS ROS ED Constitutional Constitutional ED: Denies chills, fever(s), subjective or sweats ENT ENT ED: Denies ear pain, rhinorrhea or sore throat Cardiovascular Cardiovascular: Denies chest pain, palpitations or racing heartbeat Respiratory/Chest Respiratory/Chest: Denies dyspnea or dyspnea on exertion Gastrointestinal Gastrointestinal: Reports abdominal pain and diarrhea; Denies constipation, melena, nausea or vomiting Genitourinary Genitourinary ED: Denies dysuria, hematuria or urinary frequency Integumentary Denies abscess, Abrasions or rash Hematologic/Lymphatic Hematologic/Lymphatic: Reports easy bruising; Denies easy bleeding or lymphadenopathy EXAM Physical Exam Const Vital Signs: 11/10/21 17:24 11/10/21 17:28 Temperature 97.6 F L Temperature Source Temporal Pulse Rate 96 94 Respiratory Rate 15 16 Blood Pressure 134/69 H 134/69 H Blood Pressure Mean 90 90 Pulse Ox 98 95 Oxygen Delivery Method Room Air Room Air Positive well nourished and obese General Appearance ED: NAD; Negative for pallor Nutritional Appearance: obese HEENT Reports dry mucous membranes normocephalic and atraumatic Mouth ED: Yes dry mucous membranes Mouth: dry mucous membranes Eyes PERRL and EOMs intact bilaterally General Eye ED: Negative for pale conjunctiva or scleral icterus Neck no lymphadenopathy, supple and no JVD Resp normal respiratory effort and clear to auscultation bilaterally Cardio regular rate, regular rhythm, S1 normal heart sound, S2 normal heart sound and no murmurs GI non-distended; Negative for non-tender or no masses Auscultation: hypoactive bowel sounds; Negative for normoactive bowel sounds Palpation: soft, tender other (Superior portion region of supraumbilical midline incision) and hernia ventral (Mass was reduced and there is a small defect appreciated on deep palpation.); Negative for guarding or rigid Back/Spine no CVA tenderness Cervical Spine: Negative for cervical spine tenderness Thoracic Spine / Upper Back: Negative for thoracic spinal tenderness Lumbar Spine / Lower Back: Negative for lumbar spinal tenderness Extremity full ROM Neuro CN's II-XII intact bilaterally Sensorium / Orientation: alert, oriented to person, oriented to place and oriented to time Psych thought process normal Mood & Affect: depressed Skin no wounds General Skin Exam: Negative for jaundice or pallor Lesions: no lesions Rashes: no rashes MDM MDM MDM Narrative Medical decision making narrative: After reduction of ventral hernia patient reports marked improvement with guards the pain. Will reevaluate in 15 to 30 minutes. Patient was reassessed at 08/06/2006. She states she is having no pain. Patient was discharged home Discharge Plan Triage Chief Complaint: Abd Pain ED Provider: Abdifatah Waterman Dx/Rx/DC Orders Clinical Impression: Ventral incisional hernia Instructions: ED Hernia (Adult) Prescriptions: No Action omeprazole 20 MG capsule 20 mg PO DAILY RF: 0 amlodipine 10 MG tablet 10 mg PO DAILY RF: 0 apixaban 5 MG tablet 5 mg PO BID RF: 0 atorvastatin 80 MG tablet 80 mg PO QHS RF: 0 lisinopril 40 MG tablet 40 mg PO DAILY RF: 0 glipizide 10 MG tablet 10 mg PO BID RF: 0 metformin 1,000 MG tablet 1,000 mg PO BIDCM RF: 0 carvedilol 12.5 mg tablet 12.5 mg PO BID RF: 0 potassium chloride 10 mEq Tablet Extended Release 10 meq PO BID RF: 0 furosemide [Lasix] 80 mg Tablet 80 mg PO DAILY RF: 0 diphenoxylate-atropine 2.5-0.025 mg tablet RF: 0 Januvia 100 mg Tablet 100 mg PO DAILY RF: 0 Primary Care Provider: Nathaniel Gaines Referrals: Nathaniel Gaines MD [Primary Care Provider] - As Needed Disposition Disposition: Home, Self Care
[2021-11-10 18:20] VITALS: BP 128/76; PULSE 93; RESP 18; O2SAT 94
== END 2021-11-10 18:21 | disposition home or self-care (01) ==
PROVIDERS: Emergency Provider Emergency Medicine; PCP Family Medicine; Visit Provider Emergency Medicine
DX: K43.2 Incisional hernia without obstruction or gangrene (principal); I48.91 Unspecified atrial fibrillation; E11.9 Type 2 diabetes mellitus without complications; Z86.73 Personal history of transient ischemic attack (TIA), and cerebral infarction without residual deficits; K21.9 Gastro-esophageal reflux disease without esophagitis; E78.5 Hyperlipidemia, unspecified; I10 Essential (primary) hypertension; E66.9 Obesity, unspecified; G47.33 Obstructive sleep apnea (adult) (pediatric); Z79.899 Other long term (current) drug therapy; Z79.84 Long term (current) use of oral hypoglycemic drugs; Z79.01 Long term (current) use of anticoagulants; Z87.891 Personal history of nicotine dependence; Z68.37 Body mass index [BMI] 37.0-37.9, adult
CPT/HCPCS: 99283

== ENCOUNTER → 2021-12-14 | Outpatient (CLI) | payer MEDICARE, MEDICAID, SELFPAY ==
--- NOTE | 2021-12-14 13:31 | CT_ITS ---
STUDY: CT ABDOMEN WITHOUT CONTRAST REASON FOR EXAM: Female, 65 years old. Ventral hernia -- NO CONTRAST per TR RADIATION DOSAGE (If Supplied By Facility): CTDIvol = ( 26.54 ) mGy, DLP = ( 1071.98 ) mGycm TECHNIQUE: Transaxial images were obtained without intravenous contrast, and oral contrast. Sagittal and coronal images were reconstructed. Individualized dose optimization techniques were used for this CT. COMPARISON: Comparison is made with prior study dated 04/21/2021. FINDINGS: The visualized lung bases are unremarkable. Carotid artery calcification. There is decreased attenuation of the liver consistent with steatosis. Normal gallbladder and extrahepatic biliary system. Normal spleen. There is diffuse atrophy of the pancreas. Normal bilateral adrenal glands. Normal right kidney. Normal left kidney. Normal visualized stomach. Normal small intestine. Suture line is seen at the level of the rectosigmoid colon. The appendix is visualized and appears normal. There is diffuse atherosclerotic calcification of the abdominal aorta and its major visceral branches, without a demonstrated aneurysm. Normal inferior vena cava. Normal retroperitoneum. There is evidence of a small right lateral ventral hernia as seen on axial image #69. A nondilated small bowel loop is seen within the hernia. The neck of the hernia measures 3.4 cm. There are diffuse degenerative changes of the visualized lumbar spine. CT/Abdomen without IV Contrast IMPRESSION: Right lateral ventral hernia containing a nondilated small bowel loop. The neck of the hernia measures 3.4 cm. Electronically Signed: Yonas Stroud MD at 14:16 EDT ,
== END | disposition home or self-care (01) ==
PROVIDERS: PCP Family Medicine; Referring Provider Surgery; Visit Provider Surgery
DX: K46.9 Unspecified abdominal hernia without obstruction or gangrene (principal)
CPT/HCPCS: 74150

== ENCOUNTER → 2021-12-28 | Outpatient (CLI) | payer MEDICARE, SELFPAY ==
--- NOTE | 2021-12-29 09:01 | PCM.HP.BLA ---
History and Physical Date of Admission: 12/29/21 Date of Service: 12/21/21 MR#:[id number]: ZOIE DE LA PAZ ANNRep #:[id number] Provider:Amanda Romero/Sex: 66/F [facility] Vital Signs 12/21/21 15:10 Height 5 ft 6 in Weight: 228 lb 8 oz BMI 36.8 BP 150/77 H Blood Pressure Location Rt brachial Position Sitting Respiration 17 Pulse 97 Pulse Source Monitor Temp 97.4 F L Temp Source Temporal Pulse Oximetry (%) 93 Oxygen Delivery Method room air Intake Visit Reasons: discuss hernia surgery Chief Complaint: Discuss Hernia Surgery Hospitality Manager Required: No Is patient in pain?: No Allergies iodine Allergy (Mild, Verified 12/21/21 15:11) Itching Penicillins Allergy (Mild, Verified 12/21/21 15:11) Itching Medications omeprazole 20 mg PO DAILY 05/29/14 [History Confirmed 12/21/21] amlodipine 10 mg PO DAILY 10/04/16 [History Confirmed 12/21/21] apixaban 5 mg PO BID 10/04/16 [History Confirmed 12/21/21] atorvastatin 80 mg PO QHS tab 10/25/16 [Rx Confirmed 12/21/21] lisinopril 40 mg PO DAILY tab 10/25/16 [Rx Confirmed 12/21/21] glipizide 10 mg PO BID 08/03/20 [History Confirmed 12/21/21] metformin 1,000 mg PO BIDCM 08/03/20 [History Confirmed 12/21/21] carvedilol 12.5 mg PO BID 01/23/21 [History Confirmed 12/21/21] furosemide [Lasix] 80 mg PO DAILY 01/23/21 [History Confirmed 12/21/21] potassium chloride 10 meq PO BID 01/23/21 [History Confirmed 12/21/21] Januvia 100 mg PO DAILY 02/25/21 [History Confirmed 12/21/21] diphenoxylate-atropine tab 02/25/21 [History Confirmed 12/21/21] [facility] Medical History Atrial fibrillation Diabetes mellitus Embolic stroke GERD (gastroesophageal reflux disease) Hyperlipidemia Hypertension Incarcerated ventral hernia Intraventricular hemorrhage Obesity (BMI 30-39.9) Obstructive sleep apnea Recurrent incisional hernia with incarceration Surgical History History of hysterectomy S/P repair of ventral hernia Status post debridement Family History Father CVA (cerebral vascular accident) Mother Diabetes Social History household members: none Smoking Status: Former smoker alcohol intake: never substance use type: does not use HPI HPI HPI: ZOIE DE LA PAZ, is a 66 F who presents to the office today for discussion of follow-up CT abdomen pelvis due to ventral hernia. Patient's CT abdomen pelvis did show the ventral hernia unsure if it is the same spot as previous the mesh has moved or if it just superior to the previous incisional hernia. On CT there is nondilated small bowel in this area. Patient states she has been able to reduce this area. Patient states she has been trying to lose weight by watching the amount that she is eating and states she lost about 9 pounds her PCPs office in about another 6 pounds here in our office. Patient states she has diarrhea which is chronic for her, no nausea or vomiting. ROS General General: No weight change or fatigue Additional Details: Decreased appetite Cardio Cardiovascular: No chest pain Psych Psychiatric: No depression or anxiety Resp Respiratory: No shortness of breath, Yes sleep apnea, No cough, No COPD, No asthma, No emphysema and No wheezing Gastro Gastrointestinal: Yes abdominal pain, No nausea or vomiting, Yes diarrhea, No constipation, No blood in stool, No acid reflux, No hemorrhoids, No ulcers, No gallbladder problem and No black,tarry stools Exam Const General: cooperative, healthy appearing, comfortable and no acute distress Nutritional Appearance: obese HENMT Head: normocephalic and atraumatic Neck Neck: normal visual inspection Resp Effort & Inspection: normal respiratory effort Cardio Rate: regular rate GI Inspection: non-distended Palpation: soft, no guarding, hernia ventral (Possible incisional superior to previous incision, easily reducible) and nontender Skin General: no rashes or lesions noted Neuro General: patient oriented x3 Psych Affect: normal affect COVID (Procedure Consent) Procedure Criteria Procedure Criteria: Yes Elective The surgeon/proceduralist and patient have discussed in detail the risk of exposure to and/or potential harm posed by the COVID-19 virus with having a surgery/procedure at this time versus the risk of delaying the surgery/procedure. It is not possible to know either the risk of delaying the surgery or procedure or chance of getting an infection with perfect accuracy, but a joint decision was made between the patient and the surgeon/proceduralist to proceed at this time with the scheduled surgery/procedure as indicated on the consent form. Assessment and Plan Assessment and Plan (1) Ventral hernia: Status: Acute Comment: incisional (2) S/P repair of ventral hernia: Status: Acute Comment: 02/25/2021 with mesh?recurrent incisional hernia repair Plan - Dr. An Shah MD: Patient is on Eliquis and would need to stop that for 3 days prior to surgery. CT abdomen pelvis does show ventral likely incisional hernia with nondilated small bowel. This is easily reducible. Unsure from CT abdomen pelvis at this is the superior portion of the previous recurrent incisional hernia or if this is a new hernia just superior to that area. On exam it seems like it is actually a new incisional hernia superior to the previous one. Discussed with patient I would not know for sure until surgery recommend incisional hernia repair with possible mesh, possible laparoscopic. Discussed with patient this would be the original hernia there is a possibility of removing the mesh as well. Discussed the risks including but not limited to bleeding, infection which would require removal of the mesh, recurrent hernia and anesthesia. Patient no further question this time. An Shah M.D. Pager: [phone] [facility] [address] [place] [address] [place] [address] Office: [phone] Plan Details Follow Up: We will schedule surgery. Coding Level of Care Code Off vis,est,level 4 Diagnoses Ventral hernia K43.9 S/P repair of ventral hernia Z98.890; Z87.19 12/23/21 0912<Electronically signed by An Shah MD>Date An Shah MD
--- NOTE | 2021-12-29 09:08 | EKG12_ITS ---
Test Reason : PRE-OP Blood Pressure : / mmHG Vent. Rate : 084 BPM Atrial Rate : 084 BPM P-R Int : 146 ms QRS Dur : 072 ms QT Int : 378 ms P-R-T Axes : 058 046 055 degrees QTc Int : 446 ms Normal sinus rhythm Normal ECG When compared with ECG of 24-FEB-2021 20:51, Non-specific change in ST segment in Inferior leads Confirmed by CATHERINE GAFFNEY, BRIA ([id number]), primer expeditor and drier HARVEY RODRIGUEZ ([id number]) on 01/03/2022 1:21:54 PM Referred By: MARTA Confirmed By:BRIA ALEXANDER MD
[2021-12-29] MEDS: Lactated Ringers 1,000 ML 15 ML IV (09:37)
[2021-12-29 09:38] VITALS: BP 132/67; PULSE 95; RESP 19; TEMP 36.9; O2SAT 100; BMI 35.9
[2021-12-29 09:49] LABS: Hemoglobin 14.3 g/dL (12.0-15.0); Mean Corp Hgb Conc 31.8 g/dL (32-36); Mean Corpuscular Hgb 26.2 pg (27.0-32.0); Mean Corpuscular Volume 82.4 fL (81-99); Mean Platelet Vol. 9.6 fl (6.2-12.0); Platelet Count 203 K/mm3 (150-450); RBC Distribution Width CV 14.4 % (11.6-14.6); RBC Distribution Width SD 42.8 fl (35.1-43.9); Red Blood Count 5.46 M/mm3 (4.2-5.4); White Blood Count 5.4 K/mm3 (4.4-11.0)
[2021-12-29 09:58] LABS: International Normalized Ratio 1.1; Prothrombin Time (Protime)PT. 13.9 SECONDS (11.7-14.9)
[2021-12-29 09:59] LABS: Partial Thromboplast Time 33.1 Seconds (24.1-36.2)
[2021-12-29 10:17] LABS: AST(SGOT) 20 U/L (15-37); Alanine Aminotransfer ALT/SGPT 34 U/L (13-56); Albumin, Serum 3.4 g/dL (3.2-5.0); Alkaline Phosphatase 120 U/L (45-117); Anion Gap 5 (5-15); BUN 9 mg/dL (7-18); BUN/Creat Ratio 12.7 RATIO (10-20); Bilirubin, Direct 0.16 mg/dL (0.00-0.30); Calcium,Total 10.1 mg/dL (8.5-10.1); Chloride 100 mmol/L (98-107); Creatinine, Serum 0.71 mg/dL (0.55-1.02); EST Glomerular Filtration Rate 88 mL/min (>60); Est Glom Filt Rate - Afr Amer 106 mL/min (>60); Estimated Creatinine Clearance 53.09 ml/min; Globulin 4.5 g/dL (2.2-4.2); Glucose 352 mg/dL (74-106); Protein, Total 7.9 g/dL (6.4-8.2); Sodium Level 133 mmol/L (136-145)
[2021-12-29 10:41] LABS: Hemoglobin A1c 11.7 % (3.8-5.6)
[2021-12-29 10:43] LABS: Bacteria 0 SEEN /hpf (None Seen); Mucous, Urine 0 SEEN /hpf (<or=2+); Red Blood Cells-Urine 0 SEEN /hpf (0-5); White Blood Cells 0 SEEN /hpf (0-5)
[2021-12-29 10:44] LABS: Color, Urine Yellow (Yellow); Glucose, Dipstick 1000 mg/dl (Normal); Ketone-Dipstick Negative (Negative); Leukocyte Esterase-Dipstick Negative /ul (Negative); Nitrite-Dipstick Negative (Negative); Occult Blood-Urine Negative /ul (Negative); Protein-Dipstick 30 mg/dl (Negative); Urine Bilirubin Dipstick Negative (Negative); Urine Clarity Clear (Clear); Urine Urobilinogen Normal (Normal)
[2021-12-29 10:52] LABS: Squamous Epithelial Cells - UA 0-5 SEEN /hpf (5-10)
[2021-12-29 12:35] LABS: Bedside Glucose 327 mg/dL (74-106)
== END | disposition home or self-care (01) ==
LOC: AC 12-29 10:55 → PAT 01-26 12:35
PROVIDERS: Anesthesiology; PCP Family Medicine; Visit Provider Surgery
DX: Z01.818 Encounter for other preprocedural examination (principal); E11.9 Type 2 diabetes mellitus without complications; I10 Essential (primary) hypertension; Z79.01 Long term (current) use of anticoagulants
CPT/HCPCS: 80048; 80076; 81001; 82962; 83036; 85027; 85610; 85730; 93005; J7120

== ENCOUNTER 2022-01-13 19:29 | Emergency (ER) | payer MEDICARE, MEDICAID, SELFPAY ==
[2022-01-13 19:30] VITALS: BP 136/61; PULSE 94; RESP 15; TEMP 36.2; O2SAT 100; BMI 35.9
--- NOTE | 2022-01-13 20:15 | ED.VIS.GI ---
HPI HPI - GI History of Present Illness Chief Complaint: Abd Pain Informant: patient Abdominal Pain/Flank Pain Onset: Today and Hours Context: Gradual Onset Timing: Continuous Current Severity: Gone Maximum Severity: Mild Worsened by: Nothing Relieved by: Nothing Nausea/Vomiting/Emesis GI Symptom: Negative for Nausea or Vomiting Diarrhea/Melena/Hematochezia GI Symptom: Positive for Diarrhea Onset: Today Stool Quality: Positive for Loose Severity: Mild Associated Symptoms Associated Symptoms: Negative for Dysuria, Frequency, Hematuria or Urgency Narrative Narrative: C6-year-old female history of A. fib, diabetes, anticoagulated on Eliquis and multiple hernia repairs in the past. She has a abdominal wall hernia that needs fixed they are waiting to her hemoglobin A1c is get better under control. States that around 4:00 today started having pain in her hernia site. She states is feeling better now. She denies any nausea or vomiting. No fever. No dysuria. She has had mildly loose stools. She does not want to be evaluated with any test. She wants to go home. Prior similar symptoms: Yes Recent Illness/Hospitalization: No PFSH PFS Medical History Ambulates with cane Atrial fibrillation Diabetes mellitus Difficulty in walking Embolic stroke GERD (gastroesophageal reflux disease) Hyperlipidemia Hypertension Incarcerated ventral hernia Intraventricular hemorrhage Obesity (BMI 30-39.9) Obstructive sleep apnea Poor historian Recurrent incisional hernia with incarceration Stroke/cerebrovascular accident Home Medications omeprazole 20 mg capsule,delayed release 20 mg PO DAILY GERd 05/29/14 [History Last Taken 02/23/21] amlodipine 10 mg tablet (Norvasc) 10 mg PO DAILY HTN 10/04/16 [History Last Taken 02/23/21] apixaban 5 mg tablet (Eliquis) 5 mg PO BID blood thinner 10/04/16 [History Last Taken 12/26/21] atorvastatin 80 mg tablet 80 mg PO QHS 10/25/16 [Rx Last Taken 02/23/21] lisinopril 40 mg tablet 40 mg PO DAILY 10/25/16 [Rx Last Taken 02/23/21] glipizide 10 mg tablet 10 mg PO BID DM 08/03/20 [History Last Taken 02/23/21] metformin 1,000 mg tablet 1,000 mg PO BIDCM DIABETES 08/03/20 [History Last Taken 02/23/21] carvedilol 12.5 mg tablet 12.5 mg PO BID HTN 01/23/21 [History Last Taken 02/23/21] diphenoxylate-atropine 2.5 mg-0.025 mg tablet 1 tab PO DAILY 02/25/21 [History Last Taken Unknown] sitagliptin 100 mg tablet (Januvia) 100 mg PO BID diabetes 02/25/21 [History Last Taken 02/23/21] Allergy/AdvReac Type Severity Reaction Status Date / Time iodine Allergy Mild Itching Verified 12/29/21 09:20 Penicillins Allergy Mild Itching Verified 12/29/21 09:20 Family History Father CVA (cerebral vascular accident) Mother Diabetes Surgical History History of hysterectomy Hx of colonoscopy S/P repair of ventral hernia Status post debridement Social History household members: none Smoking Status: Former smoker alcohol intake: never substance use type: does not use ROS ROS ED ROS Narrative Abdominal pain. Diarrhea Review of Systems ROS Unobtainable: Denies due to encephalopathy Constitutional Constitutional ED: Denies chills ENT ENT ED: Denies ear pain Cardiovascular Cardiovascular: Denies chest pain Respiratory/Chest Respiratory/Chest: Denies cough Gastrointestinal Gastrointestinal: Reports abdominal pain and diarrhea; Denies constipation, melena, nausea or vomiting Genitourinary Genitourinary ED: Denies dysuria or hematuria Musculoskeletal Musculoskeletal: Denies arthralgias Integumentary Denies abscess Neurologic Neurologic: Denies headache(s) Psychiatric Psychiatric: Denies anxiety Endocrine Endocrinology: Denies polydipsia Hematologic/Lymphatic Hematologic/Lymphatic: Denies easy bleeding Allergic/Immunologic Allergic/Immunologic ED: Denies mouth swelling EXAM Physical Exam Narrative Exam Narrative: 66-year-old female no acute distress. Vital signs stable afebrile. H EENT exam unremarkable. Lungs are clear. Heart regular rhythm. Abdomen soft. Nondistended. Normal bowel sounds. No peritoneal signs. Really no significant tenderness. She has a well-healed old incisional scar to midline. I do not feel any incarcerated or strangulated hernia at this time. Positive bowel sounds. No signs of obstruction. No pulsatile mass. Both the right upper and right lower quadrants are unremarkable. Moving all 4 extremities. Neurologically she is awake and alert. Const Vital Signs: 01/13/22 19:30 Temperature 97.2 F L Temperature Source Temporal Pulse Rate 94 Respiratory Rate 15 Blood Pressure 136/61 H Blood Pressure Mean 86 Pulse Ox 100 Oxygen Delivery Method Room Air Positive well nourished, well developed and obese; Negative for cachectic, contractures or unkempt General Appearance ED: well developed; Negative for unkempt, cachectic, contractures or pallor Nutritional Appearance: obese; Negative for cachectic HEENT Reports moist mucous membranes normocephalic and atraumatic; Negative for trauma or tenderness Eyes PERRL and EOMs intact bilaterally General Eye ED: Negative for pale conjunctiva or scleral icterus Neck no lymphadenopathy, supple and no JVD Resp normal respiratory effort and clear to auscultation bilaterally Effort and Inspection: Negative for respiratory distress or retractions Auscultation: Negative for rales, rhonchi or wheezes Cardio regular rate, regular rhythm, S1 normal heart sound and S2 normal heart sound Rate: Negative for bradycardia Rhythm: Negative for abnormal rhythm GI non-tender, non-distended and no masses Inspection: Negative for abdominal distention Auscultation: normoactive bowel sounds; Negative for hyperactive bowel sounds or hypoactive bowel sounds Palpation: soft; Negative for tender, guarding, rigid, hepatomegaly, splenomegaly, hernia, mass, pulsatile mass or rebound tenderness present Back/Spine no CVA tenderness Extremity full ROM General Extremety ED: Negative for edema or tenderness General Extremity: Negative for edema Neuro moves all extremities Sensorium / Orientation: alert, oriented to person, oriented to place and oriented to time Motor Exam: strength 5/5 throughout Psych mental status grossly normal and thought process normal Appearance: Negative for unkempt Skin no wounds General Skin Exam: Negative for jaundice or pallor MDM MDM MDM Narrative Medical decision making narrative: 66-year-old abdominal pain with known hernia. I offered the patient CAT scan and labs. She states she is feeling better she does not want any testing done. I went over again with her and at this time I do not feel incarcerated strangulated hernia. I explained to her that things could be missed without additional testing she understands and wants to be discharged to home and does not want any work-up at this time. She knows return if increasing pain, fever or intractable vomiting. She will be discharged. Discharge Plan Triage Chief Complaint: Abd Pain ED Provider: Shaheen Roy Dx/Rx/DC Orders Clinical Impression: Abdominal pain, Hernia, History of atrial fibrillation, History of diabetes mellitus Instructions: Abdominal Pain Prescriptions: No Action omeprazole 20 MG capsule 20 mg PO DAILY Label Comments: GASTRIC REFLUX amlodipine [Norvasc] 10 MG tablet 10 mg PO DAILY Label Comments: high blood pressure Eliquis 5 MG tablet 5 mg PO BID Label Comments: start eliquis on 10/23/2016 atorvastatin 80 MG tablet 80 mg PO QHS 0RF lisinopril 40 MG tablet 40 mg PO DAILY 0RF glipizide 10 MG tablet 10 mg PO BID metformin 1,000 MG tablet 1,000 mg PO BIDCM carvedilol 12.5 mg tablet 12.5 mg PO BID diphenoxylate-atropine 2.5-0.025 mg tablet 1 tab PO DAILY Januvia 100 mg Tablet 100 mg PO BID Primary Care Provider: Nathaniel Gaines Referrals: Nathaniel Gaines MD [Primary Care Provider] - As soon as possible Activity Restrictions/Additional Instructions: Return increasing pain, fever or intractable vomiting. Follow-up with your primary care physician. Disposition Disposition: Home, Self Care
--- NOTE | 2022-01-13 20:33 | ED.RN ---
This RN given permission talk with patients sister. Sister would like patient to stay and be evaluated. Rn stated she cannot make patient stay if she does not want to be treated. Patient is alert and oriented x4. patient called EMS to bring her to hospital. Dr. Roy offered her a CT scan but was denied by patient. Patients sister has been informed of this decision made by patient. Patient states her sister is upset with her and continues to call her cell phone. patient ambulates out of ED room independent w/o further questions or requests
== END 2022-01-13 20:38 | disposition home or self-care (01) ==
PROVIDERS: Emergency Provider Emergency Medicine; PCP Family Medicine; Visit Provider Emergency Medicine
DX: R10.9 Unspecified abdominal pain (principal); I48.91 Unspecified atrial fibrillation; K46.9 Unspecified abdominal hernia without obstruction or gangrene; G47.33 Obstructive sleep apnea (adult) (pediatric); E66.9 Obesity, unspecified; Z87.891 Personal history of nicotine dependence; Z86.73 Personal history of transient ischemic attack (TIA), and cerebral infarction without residual deficits; Z79.01 Long term (current) use of anticoagulants
CPT/HCPCS: 99284

== ENCOUNTER 2022-02-17 19:42 | Emergency (ER) | payer MEDICARE, MEDICAID, SELFPAY ==
[2022-02-17 19:43] VITALS: BP 144/72; PULSE 96; RESP 16; TEMP 36.4; O2SAT 99; BMI 39.1
--- NOTE | 2022-02-17 21:24 | ED.VIS.GI ---
HPI HPI - GI History of Present Illness Chief Complaint: Abd Pain Informant: patient Abdominal Pain/Flank Pain Onset: Today Context: Gradual Onset Timing: Continuous and Waxes and wanes Quality: Aching Location: - (Periumbilical where my hernia is ) Current Severity: Moderate Maximum Severity: Severe Nausea/Vomiting/Emesis GI Symptom: Positive for Nausea; Negative for Vomiting Diarrhea/Melena/Hematochezia GI Symptom: Positive for Diarrhea; Negative for Melena or Hematochezia Stool Quality: Positive for Loose Severity: Moderate Associated Symptoms Associated Symptoms: Negative for Dysuria, Frequency, Hematuria or Urgency Narrative Narrative: Has chronic abdominal issues including a ventral hernia that she states surgery does not want to repair, today she has had multiple episodes of loose nonbloody nonmelanotic diarrhea and pain specifically where her hernia is, she has had nausea but no vomiting but she has trouble vomiting. [facility] Medical History Ambulates with cane Atrial fibrillation Diabetes mellitus Difficulty in walking Embolic stroke GERD (gastroesophageal reflux disease) Hyperlipidemia Hypertension Incarcerated ventral hernia Intraventricular hemorrhage Obesity (BMI 30-39.9) Obstructive sleep apnea Poor historian Recurrent incisional hernia with incarceration Stroke/cerebrovascular accident Home Medications omeprazole 20 mg capsule,delayed release 20 mg PO DAILY GERd 05/29/14 [History Last Taken 02/23/21] amlodipine 10 mg tablet (Norvasc) 10 mg PO DAILY HTN 10/04/16 [History Last Taken 02/23/21] apixaban 5 mg tablet (Eliquis) 5 mg PO BID blood thinner 10/04/16 [History Last Taken 12/26/21] atorvastatin 80 mg tablet 80 mg PO QHS 10/25/16 [Rx Last Taken 02/23/21] lisinopril 40 mg tablet 40 mg PO DAILY 10/25/16 [Rx Last Taken 02/23/21] glipizide 10 mg tablet 10 mg PO BID DM 08/03/20 [History Last Taken 02/23/21] metformin 1,000 mg tablet 1,000 mg PO BIDCM DIABETES 08/03/20 [History Last Taken 02/23/21] carvedilol 12.5 mg tablet 12.5 mg PO BID HTN 01/23/21 [History Last Taken 02/23/21] diphenoxylate-atropine 2.5 mg-0.025 mg tablet 1 tab PO DAILY 02/25/21 [History Last Taken Unknown] sitagliptin 100 mg tablet (Januvia) 100 mg PO BID diabetes 02/25/21 [History Last Taken 02/23/21] ondansetron 4 mg disintegrating tablet 8 mg PO Q8H PRN PRN Nausea #12 tabs 02/17/22 [Rx Last Taken Unknown] Allergy/AdvReac Type Severity Reaction Status Date / Time iodine Allergy Mild Itching Verified 02/17/22 19:47 Penicillins Allergy Mild Itching Verified 02/17/22 19:47 Family History Father CVA (cerebral vascular accident) Mother Diabetes Surgical History History of hysterectomy Hx of colonoscopy S/P repair of ventral hernia Status post debridement Social History household members: none Smoking Status: Former smoker alcohol intake: never substance use type: does not use ROS ROS ED Constitutional Constitutional ED: Denies chills or fever(s) Eyes Eyes: Denies change in vision or diplopia ENT ENT ED: Denies rhinorrhea or sore throat Cardiovascular Cardiovascular: Reports leg edema; Denies chest pain or palpitations Respiratory/Chest Respiratory/Chest: Denies cough or dyspnea Gastrointestinal Gastrointestinal: Reports abdominal pain, diarrhea and nausea; Denies melena or vomiting Genitourinary Genitourinary ED: Denies dysuria or hematuria Musculoskeletal Musculoskeletal: Denies back pain or neck pain Integumentary Denies abscess or rash Neurologic Neurologic: Denies headache(s), paresthesias or weakness Psychiatric Psychiatric: Denies anxiety or suicidal thoughts EXAM Physical Exam Const Vital Signs: 02/17/22 19:43 Temperature 97.6 F L Temperature Source Temporal Pulse Rate 96 Respiratory Rate 16 Blood Pressure 144/72 H Blood Pressure Mean 96 Pulse Ox 99 Oxygen Delivery Method Room Air Positive well nourished, well developed and obese General Appearance ED: well developed and NAD Nutritional Appearance: obese HEENT Reports moist mucous membranes normocephalic and atraumatic Eyes PERRL and EOMs intact bilaterally Neck full ROM and supple Resp normal respiratory effort and clear to auscultation bilaterally Cardio regular rate, regular rhythm and no murmurs GI non-distended GI Narrative: Tender supraumbilical. No palpable large hernia, no palpable collection, no erythema or abnormal discoloration, no guarding or rebound tenderness, no other areas of tenderness. Auscultation: normoactive bowel sounds Palpation: soft Back/Spine no CVA tenderness General Back: other FROM Extremity normal to inspection General Extremety ED: Yes edema; Negative for pulses abnormal or tenderness General Extremity: edema bilateral lower extremity Details: mild; Negative for pulses abnormal Neuro oriented x3, CN's II-XII intact bilaterally and no sensory deficits noted Sensorium / Orientation: awake and alert Motor Exam: strength 5/5 throughout Skin no rashes or lesions noted and no wounds MDM MDM MDM Narrative Medical decision making narrative: Labs and a CT were obtained to evaluate her hernia, she was too obese to evaluate whether her hernia is definitely an issue or not, I cannot feel it definitively. The CT shows no evidence of incarceration or acute issue with the hernia. Alternatively, shows some focal enteritis and no other acute abnormality. Her symptoms are consistent with enteritis, with the etiology being most likely viral, she has no red flag risk factors such as recent antibiotics, suspected food poisoning or undercooked meats, new water sources for ingestion, or travel out of the area. Supportive care advised, she is having no bleeding I would recommend Imodium as needed, hydration, she was offered other pain medications after giving her a dose of morphine prior to the work-up, she declined and is okay going home. Lab Data Attestation: I reviewed the patient's lab results. Labs: Laboratory Results - last 24 hr 02/17/22 02/17/22 02/17/22 22:05 22:05 22:20 WBC Cancelled 7.6 Corrected WBC Cancelled RBC Cancelled 5.03 Hgb Cancelled 13.0 Hct Cancelled 43.1 MCV Cancelled 85.7 MCH Cancelled 25.8 L MCHC Cancelled 30.2 L RDW Std Deviation Cancelled 46.4 H RDW Coeff of Faby Cancelled 14.8 H Plt Count Cancelled 179 MPV Cancelled 9.3 Immature Gran % (Auto) Cancelled 0.400 Neut % (Auto) Cancelled 65.4 Lymph % (Auto) Cancelled 23.0 Ward % (Auto) Cancelled 9.0 Eos % (Auto) Cancelled 1.7 Baso % (Auto) Cancelled 0.5 Absolute Neuts (auto) Cancelled 5.0 Absolute Lymphs (auto) Cancelled 1.74 Total Counted Cancelled Neutrophils % (Manual) Cancelled Band Neutrophils % Cancelled Lymphocytes % (Manual) Cancelled Monocytes % (Manual) Cancelled Eosinophils % (Manual) Cancelled Basophils % (Manual) Cancelled Metamyelocytes % Cancelled Myelocytes % Cancelled Promyelocytes % Cancelled Blast Cells % Cancelled Plasma Cell % (Manual) Cancelled Other Cells % Cancelled Nucleated RBC % Cancelled 0 Nucleated RBCs/100 WBC Cancelled Differential Comment Cancelled Diff Path Review Cancelled Hypersegmented Neuts Cancelled Atypical Lymphocytes Cancelled Reactive Lymphocytes Cancelled Smudge Cells Cancelled Toxic Granulation Cancelled Toxic Vacuolation Cancelled Dohle Bodies Cancelled Sinan Rods Cancelled Platelet Estimate Cancelled Plt Morphology Comment Cancelled RBC Morphology Cancelled Polychromasia Cancelled Hypochromasia Cancelled Poikilocytosis Cancelled Basophilic Stippling Cancelled Anisocytosis Cancelled Microcytosis Cancelled Macrocytosis Cancelled Spherocytes Cancelled Sickle Cells Cancelled Target Cells Cancelled Tear Drop Cells Cancelled Ovalocytes Cancelled Stomatocytes Cancelled Rosales-Plush Bodies Cancelled Michell Cells Cancelled Bite Cells Cancelled Crenated Cell Cancelled Acanthocytes (Spur) Cancelled Rouleaux Cancelled Schistocytes Cancelled Sodium 138 Potassium 4.5 Chloride 107 Carbon Dioxide 26.0 Anion Gap 5 BUN 17 Creatinine 0.78 Estim Creat Clear Calc 53.09 Est GFR (MDRD) Af Amer 95 Est GFR (MDRD) Non-Af 78 BUN/Creatinine Ratio 21.8 H Glucose 216 H Calcium 10.2 H Total Bilirubin 0.30 AST 26 ALT 33 Alkaline Phosphatase 111 Total Protein 7.4 Albumin 3.0 L Globulin 4.4 H Albumin/Globulin Ratio 0.7 L Radiography Diagnostic Testing: Clinical Impression(s) from Imaging Studies Abdomen/Pelvis CT 02/17/22 21:42 IMPRESSION: 1. Short segment small bowel with mild wall thickening and inflammatory changes in the right abdomen, may represent postsurgical changes or enteritis. 2. Small incisional hernia in the anterior abdomen containing trace fluid. 3. Additional chronic findings as above. Electronically Signed: Christian Farrell MD at 22:12 EDT , Discharge Plan Triage Chief Complaint: Abd Pain ED Provider: Ricci Zhou Dx/Rx/DC Orders Clinical Impression: Abdominal pain, acute, periumbilical, Ventral hernia, Gastroenteritis Instructions: Viral Gastroenteritis Prescriptions: New ondansetron [ondansetron] 4 mg tablet,disintegrating 8 mg PO Q8H PRN PRN (Reason: Nausea) Qty: 12 0RF No Action omeprazole 20 MG capsule 20 mg PO DAILY Label Comments: GASTRIC REFLUX amlodipine [Norvasc] 10 MG tablet 10 mg PO DAILY Label Comments: high blood pressure Eliquis 5 MG tablet 5 mg PO BID Label Comments: start eliquis on 10/23/2016 atorvastatin 80 MG tablet 80 mg PO QHS 0RF lisinopril 40 MG tablet 40 mg PO DAILY 0RF glipizide 10 MG tablet 10 mg PO BID metformin 1,000 MG tablet 1,000 mg PO BIDCM carvedilol 12.5 mg tablet 12.5 mg PO BID diphenoxylate-atropine 2.5-0.025 mg tablet 1 tab PO DAILY Januvia 100 mg Tablet 100 mg PO BID Primary Care Provider: Nathaniel Gaines Referrals: Nathaniel Gaines MD [Primary Care Provider] - 3-5 Days if not improving Disposition Disposition: Home, Self Care
[2022-02-17] MEDS: Morphine 2 MG/ML Syringe IV (21:34)
[2022-02-17] MEDS: Ondansetron 4 MG/2 ML Vial IV (21:34)
--- NOTE | 2022-02-17 21:42 | CT_ITS ---
STUDY: CT ABDOMEN AND PELVIS WITHOUT CONTRAST REASON FOR EXAM: Female, 66 years old. Pain, hernia, nausea RADIATION DOSAGE (If Supplied By Facility): CTDIvol = ( 19.71 ) mGy, DLP = ( 1088.48 ) mGycm TECHNIQUE: Transaxial images were obtained from the dome of the diaphragm to the symphysis pubis without oral contrast, and without intravenous contrast. Sagittal and coronal images were reconstructed. Individualized dose optimization techniques were used for this CT. COMPARISON: CT abdomen pelvis 04/21/2021 FINDINGS: LOWER CHEST: Aortic valvular and coronary artery calcifications. LIVER: Normal. GALLBLADDER/BILE DUCTS: Normal. PANCREAS: Normal. SPLEEN: Normal. ADRENAL GLANDS: Normal. KIDNEYS/URETERS/BLADDER: Exophytic 4.5 cm cystic structure arising from the inferior pole the right kidney, similar compared to the prior.. RETROPERITONEUM/AORTA: Mild atherosclerotic calcifications. BOWEL/MESENTERY: Short segment small bowel with mild wall thickening and associated mesenteric infiltration in the right abdomen subjacent to the surgical incision. No bowel dilatation. Status post sigmoidectomy and small bowel resection in the right upper quadrant with reanastomosis. Scattered colonic diverticulosis without discrete evidence of acute diverticulitis. APPENDIX: Identified and normal. PERITONEUM: Normal. REPRODUCTIVE ORGANS: Hysterectomy. BONES/SOFT TISSUES: Midline anterior abdominal wall incision with small hernia sacs containing trace fluid... OTHER: Descent of the pelvic floor, suggestive of pelvic floor weakness.. CT/Abdomen/Pelvis without Cont IMPRESSION: 1. Short segment small bowel with mild wall thickening and inflammatory changes in the right abdomen, may represent postsurgical changes or enteritis. 2. Small incisional hernia in the anterior abdomen containing trace fluid. 3. Additional chronic findings as above. Electronically Signed: Christian Farrell MD at 22:12 EDT ,
[2022-02-17 22:29] LABS: Absolute Lymphocyte Count 1.74 X10^3/uL (0.83-4.51); Basophil# 0.04 X10^3/uL; Basophil% 0.5 % (0-1); Eosinophil# 0.13 X10^3/uL; Eosinophils% 1.7 % (0-5); Hematocrit 43.1 % (37-47); Lymphocyte # 1.74 X10^3/ul (0.83-4.51); Mean Corp Hgb Conc 30.2 g/dL (32-36); Mean Corpuscular Hgb 25.8 pg (27.0-32.0); Mean Corpuscular Volume 85.7 fL (81-99); Mean Platelet Vol. 9.3 fl (6.2-12.0); Monocyte# 0.68 X10^3/uL; NRBC Flagged by Analyzer 0 % (0-5); Neutrophil # 4.96 X10^3/uL (2.7-7.7); Neutrophil % 65.4 % (47-70); Platelet Count 179 K/mm3 (150-450); RBC Distribution Width CV 14.8 % (11.6-14.6); RBC Distribution Width SD 46.4 fl (35.1-43.9); Red Blood Count 5.03 M/mm3 (4.2-5.4); White Blood Count 7.6 K/mm3 (4.4-11.0)
[2022-02-17 23:01] LABS: ALB/GLOB Ratio 0.7 RATIO (0.9-2.4); AST(SGOT) 26 U/L (15-37); Alanine Aminotransfer ALT/SGPT 33 U/L (13-56); Alkaline Phosphatase 111 U/L (45-117); Anion Gap 5 (5-15); BUN 17 mg/dL (7-18); BUN/Creat Ratio 21.8 RATIO (10-20); Calcium,Total 10.2 mg/dL (8.5-10.1); Chloride 107 mmol/L (98-107); Creatinine, Serum 0.78 mg/dL (0.55-1.02); EST Glomerular Filtration Rate 78 mL/min (>60); Est Glom Filt Rate - Afr Amer 95 mL/min (>60); Estimated Creatinine Clearance 53.09 ml/min; Globulin 4.4 g/dL (2.2-4.2); Glucose 216 mg/dL (74-106); Potassium 4.5 mmol/L (3.5-5.1); Protein, Total 7.4 g/dL (6.4-8.2); Sodium Level 138 mmol/L (136-145)
== END 2022-02-17 23:31 | disposition home or self-care (01) ==
PROVIDERS: Emergency Provider Emergency Medicine; PCP Family Medicine; Visit Provider Emergency Medicine
DX: R10.33 Periumbilical pain (principal); I48.91 Unspecified atrial fibrillation; E11.9 Type 2 diabetes mellitus without complications; K52.9 Noninfective gastroenteritis and colitis, unspecified; G47.33 Obstructive sleep apnea (adult) (pediatric); Z86.73 Personal history of transient ischemic attack (TIA), and cerebral infarction without residual deficits; E78.5 Hyperlipidemia, unspecified; I10 Essential (primary) hypertension; K21.9 Gastro-esophageal reflux disease without esophagitis; Z79.01 Long term (current) use of anticoagulants; Z79.899 Other long term (current) drug therapy; Z87.891 Personal history of nicotine dependence; E66.9 Obesity, unspecified; K43.9 Ventral hernia without obstruction or gangrene; Z68.39 Body mass index [BMI] 39.0-39.9, adult; Z79.84 Long term (current) use of oral hypoglycemic drugs
CPT/HCPCS: 36415; 74176; 80053; 85025; 96361; 96374; 96375; 99284; A4216; J2405

== ENCOUNTER 2022-03-21 18:50 | Emergency (ER) | payer MEDICARE, MEDICAID, SELFPAY ==
[2022-03-21 18:51] VITALS: BP 150/72; PULSE 92; RESP 16; TEMP 36.7; O2SAT 97; BMI 35.9
--- NOTE | 2022-03-21 20:02 | EDS_ITS ---
HPI History of Present Illness Chief Complaint: Cold Sx Detail of Chief Complaint: Vomiting and diarrhea and runny nose and concern for COVID Informant: patient Narrative Narrative: Patient presents emergency department with multiple complaints. Patient states that she started with vomiting and diarrhea 4 days ago but that is now mostly resolved. Patient had a runny nose. Patient complains of a headache. She is concerned she might have COVID. She denies any sick contacts. Patient has not had the COVID-vaccine. She denies any chest pain or shortness of breath. [facility] Medical History (Updated 03/21/22 @ 21:[address] Syeda Romeo, DO) Ambulates with cane Atrial fibrillation Diabetes mellitus Difficulty in walking Embolic stroke GERD (gastroesophageal reflux disease) Hyperlipidemia Hypertension Incarcerated ventral hernia Intraventricular hemorrhage Obesity Obesity (BMI 30-39.9) Obstructive sleep apnea Poor historian Recurrent incisional hernia with incarceration Stroke/cerebrovascular accident Home Medications omeprazole 20 mg capsule,delayed release 20 mg PO DAILY GERd 05/29/14 [History Last Taken 02/23/21] amlodipine 10 mg tablet (Norvasc) 10 mg PO DAILY HTN 10/04/16 [History Last Taken 02/23/21] apixaban 5 mg tablet (Eliquis) 5 mg PO BID blood thinner 10/04/16 [History Last Taken 12/26/21] atorvastatin 80 mg tablet 80 mg PO QHS 10/25/16 [Rx Last Taken 02/23/21] lisinopril 40 mg tablet 40 mg PO DAILY 10/25/16 [Rx Last Taken 02/23/21] metformin 1,000 mg tablet 1,000 mg PO BIDCM DIABETES 08/03/20 [History Last Taken 02/23/21] carvedilol 12.5 mg tablet 12.5 mg PO BID HTN 01/23/21 [History Last Taken 02/23/21] sitagliptin 100 mg tablet (Januvia) 100 mg PO BID diabetes 02/25/21 [History Last Taken 02/23/21] ondansetron 4 mg disintegrating tablet 8 mg PO Q8H PRN PRN Nausea #12 tabs 02/17/22 [Rx Last Taken Unknown] dulaglutide 0.75 mg/0.5 mL subcutaneous pen injector (Trulicity) 0.75 mg (0.5 mL) subcut QWEEK #2 mL 03/10/22 [Rx Last Taken Unknown] glipizide 10 mg tablet 10 mg PO .daily at supper DM #30 tabs 03/10/22 [Rx Last Taken Unknown] multivitamin (Daily Multi-Vitamin tablet) 1 tab PO DAILY 03/10/22 [History Last Taken Unknown] pioglitazone 15 mg tablet 15 mg PO DAILY #30 tabs 03/10/22 [Rx Last Taken Unknown] Allergy/AdvReac Type Severity Reaction Status Date / Time iodine Allergy Mild Itching Verified 03/21/22 18:51 Penicillins Allergy Mild Itching Verified 03/21/22 18:51 Family History Father CVA (cerebral vascular accident) Mother Diabetes Stomach cancer Other High cholesterol Hypertension Surgical History History of hysterectomy Hx of colonoscopy S/P repair of ventral hernia Status post debridement Social History household members: none Smoking Status: Former smoker alcohol intake: never substance use type: does not use what type of physical activity do you participate in: walking frequency: daily ROS ROS ED Review of Systems ROS Unobtainable: other Constitutional Constitutional ED: Reports lethargy; Denies chills, fever(s), sweats or weight loss Eyes Eyes: Denies blurry vision, change in vision or diplopia ENT ENT ED: Reports rhinorrhea; Denies sore throat Cardiovascular Cardiovascular: Reports racing heartbeat; Denies chest pain, orthopnea or palpitations Respiratory/Chest Respiratory/Chest: Denies cough, dyspnea, dyspnea on exertion, orthopnea or sputum Gastrointestinal Gastrointestinal: Reports diarrhea, nausea and vomiting; Denies abdominal pain Genitourinary Genitourinary ED: Denies dysuria, hematuria or urinary frequency Musculoskeletal Musculoskeletal: Denies arthralgias, back pain, myalgias or neck pain Integumentary Denies abscess, Abrasions or rash Neurologic Neurologic: Reports headache(s); Denies weakness Psychiatric Psychiatric: Denies anxiety, depression or suicidal thoughts Endocrine Endocrinology: Denies polydipsia, polyphagia or polyuria Hematologic/Lymphatic Hematologic/Lymphatic: Denies easy bleeding, easy bruising or lymphadenopathy Allergic/Immunologic Allergic/Immunologic ED: Denies mouth swelling, tongue swelling or urticaria EXAM Physical Exam Const Vital Signs: 03/21/22 18:51 03/21/22 19:57 Temperature 98.0 F Temperature Source Temporal Pulse Rate 92 Respiratory Rate 16 Respiratory Pattern Normal Blood Pressure 150/72 H Blood Pressure Mean 98 Pulse Ox 97 Oxygen Delivery Method Room Air Positive well nourished and well developed General Appearance ED: well developed and NAD HEENT Reports TM's clear and moist mucous membranes normocephalic and atraumatic; Negative for trauma or tenderness Tympanic Membrane ED: Yes TM's clear Eyes PERRL and EOMs intact bilaterally General Eye ED: Negative for pale conjunctiva or scleral icterus Neck no lymphadenopathy, supple and no JVD General: Negative for tenderness Chest Wall inspection of chest normal and palpation of chest normal Chest: Negative for tenderness Resp normal respiratory effort and clear to auscultation bilaterally Effort and Inspection: Negative for respiratory distress or pain with movement Auscultation: Negative for rhonchi, wheezes or diminished lung sounds Cardio regular rate, regular rhythm, S1 normal heart sound, S2 normal heart sound and no murmurs Peripheral Pulses: pulses 2+ throughout GI normal to inspection, nondistended, normoactive bowel sounds, soft to palpation, non-tender, non-distended and no masses Back/Spine no CVA tenderness and no thoracic nor lumbar tenderness Extremity normal to inspection General Extremety ED: Negative for edema General Extremity: Negative for edema Neuro oriented x3, CN's II-XII intact bilaterally, no sensory deficits noted and gait normal Sensorium / Orientation: awake, alert, oriented to person, oriented to place and oriented to time Motor Exam: strength 5/5 throughout and strength abnormal Psych mental status grossly normal Skin no rashes or lesions noted and no wounds MDM MDM MDM Narrative Medical decision making narrative: Patient had negative rapid COVID test. I suspect she likely had a viral gastroenteritis. Patient advised to follow-up with her primary care physician 3 to 5 days. Lab Data Attestation: I reviewed the patient's lab results. Discharge Plan Triage Chief Complaint: Cold Sx ED Provider: Syeda Romeo Dx/Rx/DC Orders Clinical Impression: Acute viral syndrome Instructions: ED Viral Syndrome (Adult) Prescriptions: No Action multivitamin [Daily Multi-Vitamin] Tablet 1 tab PO DAILY Trulicity 0.75 mg/0.5 mL pen injector 0.75 mg subcut QWEEK Qty: 2 5RF Rx Instructions: stop Januvia pioglitazone 15 mg tablet 15 mg PO DAILY Qty: 30 6RF glipizide 10 mg tablet 10 mg PO .daily at supper Qty: 30 5RF omeprazole 20 MG capsule 20 mg PO DAILY Label Comments: GASTRIC REFLUX amlodipine [Norvasc] 10 MG tablet 10 mg PO DAILY Label Comments: high blood pressure Eliquis 5 MG tablet 5 mg PO BID Label Comments: start eliquis on 10/23/2016 atorvastatin 80 MG tablet 80 mg PO QHS 0RF lisinopril 40 MG tablet 40 mg PO DAILY 0RF metformin 1,000 MG tablet 1,000 mg PO BIDCM carvedilol 12.5 mg tablet 12.5 mg PO BID Januvia 100 mg Tablet 100 mg PO BID ondansetron [ondansetron] 4 mg tablet,disintegrating 8 mg PO Q8H PRN PRN (Reason: Nausea) Qty: 12 0RF Primary Care Provider: Nathaniel Gaines Referrals: Nathaniel Gaines MD [Primary Care Provider] - 3-5 Days Disposition Disposition: Home, Self Care
[2022-03-21 21:17] VITALS: BP 150/72; PULSE 92; RESP 16; O2SAT 97
== END 2022-03-21 21:21 | disposition home or self-care (01) ==
PROVIDERS: Emergency Provider Emergency Medicine; PCP Family Medicine; Visit Provider Emergency Medicine
DX: B34.9 Viral infection, unspecified (principal); I48.91 Unspecified atrial fibrillation; E11.9 Type 2 diabetes mellitus without complications; E78.5 Hyperlipidemia, unspecified; I10 Essential (primary) hypertension; R19.7 Diarrhea, unspecified; Z87.891 Personal history of nicotine dependence; Z28.310 Unvaccinated for COVID-19; R11.2 Nausea with vomiting, unspecified; J34.89 Other specified disorders of nose and nasal sinuses; Z86.73 Personal history of transient ischemic attack (TIA), and cerebral infarction without residual deficits; K21.9 Gastro-esophageal reflux disease without esophagitis; G47.33 Obstructive sleep apnea (adult) (pediatric); Z79.01 Long term (current) use of anticoagulants; Z79.84 Long term (current) use of oral hypoglycemic drugs; Z79.899 Other long term (current) drug therapy; E66.9 Obesity, unspecified; Z68.35 Body mass index [BMI] 35.0-35.9, adult
CPT/HCPCS: 87428; 99284

== ENCOUNTER 2022-04-29 17:05 | Emergency (ER) | payer MEDICARE, MEDICAID, SELFPAY ==
[2022-04-29 17:06] VITALS: BP 173/75; PULSE 92; RESP 18; TEMP 35.6; O2SAT 98; BMI 37.4
--- NOTE | 2022-04-29 17:30 | ED.VIS.GI ---
HPI HPI - GI History of Present Illness Chief Complaint: Nausea/Vomiting Informant: patient Abdominal Pain/Flank Pain Onset: Today Context: Sudden Onset Timing: Continuous Quality: Sharp Location: Diffuse Worsened by: Nothing Relieved by: Nothing Nausea/Vomiting/Emesis GI Symptom: Positive for Nausea and Vomiting Quality: Positive for Nonbilious; Negative for Blood streaks, Coffee ground or Hematemesis Diarrhea/Melena/Hematochezia GI Symptom: Positive for Diarrhea; Negative for Melena or Hematochezia Associated Symptoms Associated Symptoms: Negative for Dysuria, Frequency or Hematuria Narrative Narrative: Patient presents with abdominal pain, nausea, vomiting, diarrhea that began today. Patient states it began rather suddenly this morning. Patient states her pain is over her ventral hernia. Patient describes her pain as sharp. Patient states nothing makes it better nothing makes it worse. Patient denies any hematemesis or coffee-ground emesis. Patient states her emesis is just stomach contents. Patient denies any melena or hematochezia. Patient describes her diarrhea as loose and watery. Patient denies any dysuria or hematuria. [facility] Medical History Ambulates with cane Atrial fibrillation Diabetes mellitus Difficulty in walking Embolic stroke GERD (gastroesophageal reflux disease) Hyperlipidemia Hypertension Incarcerated ventral hernia Intraventricular hemorrhage Obesity Obesity (BMI 30-39.9) Obstructive sleep apnea Poor historian Recurrent incisional hernia with incarceration Stroke/cerebrovascular accident Home Medications omeprazole 20 mg capsule,delayed release 20 mg PO DAILY GERd 05/29/14 [History Last Taken 02/23/21] amlodipine 10 mg tablet (Norvasc) 10 mg PO DAILY HTN 10/04/16 [History Last Taken 02/23/21] apixaban 5 mg tablet (Eliquis) 5 mg PO BID blood thinner 10/04/16 [History Last Taken 12/26/21] atorvastatin 80 mg tablet 80 mg PO QHS 10/25/16 [Rx Last Taken 02/23/21] lisinopril 40 mg tablet 40 mg PO DAILY 10/25/16 [Rx Last Taken 02/23/21] metformin 1,000 mg tablet 1,000 mg PO BIDCM DIABETES 08/03/20 [History Last Taken 02/23/21] carvedilol 12.5 mg tablet 12.5 mg PO BID HTN 01/23/21 [History Last Taken 02/23/21] sitagliptin 100 mg tablet (Januvia) 100 mg PO BID diabetes 02/25/21 [History Last Taken 02/23/21] ondansetron 4 mg disintegrating tablet 8 mg PO Q8H PRN PRN Nausea #12 tabs 02/17/22 [Rx Last Taken Unknown] dulaglutide 0.75 mg/0.5 mL subcutaneous pen injector (Trulicity) 0.75 mg (0.5 mL) subcut QWEEK #2 mL 03/10/22 [Rx Last Taken Unknown] glipizide 10 mg tablet 10 mg PO .daily at supper DM #30 tabs 03/10/22 [Rx Last Taken Unknown] multivitamin (Daily Multi-Vitamin tablet) 1 tab PO DAILY 03/10/22 [History Last Taken Unknown] pioglitazone 15 mg tablet 15 mg PO DAILY #30 tabs 03/10/22 [Rx Last Taken Unknown] Allergy/AdvReac Type Severity Reaction Status Date / Time iodine Allergy Mild Itching Verified 03/21/22 18:51 Penicillins Allergy Mild Itching Verified 03/21/22 18:51 Family History Father CVA (cerebral vascular accident) Mother Diabetes Stomach cancer Other High cholesterol Hypertension Surgical History History of hysterectomy Hx of colonoscopy S/P repair of ventral hernia Status post debridement Social History household members: none Smoking Status: Former smoker alcohol intake: never substance use type: does not use what type of physical activity do you participate in: walking frequency: daily ROS ROS ED Constitutional Constitutional ED: Denies chills or fever(s) Eyes Eyes: Denies blurry vision or change in vision ENT ENT ED: Denies rhinorrhea or sore throat Cardiovascular Cardiovascular: Denies chest pain or palpitations Respiratory/Chest Respiratory/Chest: Denies cough or dyspnea Gastrointestinal Gastrointestinal: Reports abdominal pain, diarrhea, nausea and vomiting Genitourinary Genitourinary ED: Denies dysuria or hematuria Musculoskeletal Musculoskeletal: Denies back pain or neck pain Integumentary Denies abscess or rash Neurologic Neurologic: Reports headache(s); Denies weakness Allergic/Immunologic Allergic/Immunologic ED: Denies mouth swelling or urticaria EXAM Physical Exam Const Vital Signs: 04/29/22 17:06 Temperature 96.1 F L Temperature Source Temporal Pulse Rate 92 Respiratory Rate 18 Blood Pressure 173/75 H Blood Pressure Mean 107 Pulse Ox 98 Oxygen Delivery Method Room Air Positive well nourished, well developed and obese General Appearance ED: well developed and NAD Nutritional Appearance: obese HEENT Reports moist mucous membranes Neck supple and no JVD Resp normal respiratory effort and clear to auscultation bilaterally Cardio regular rate, regular rhythm and no murmurs GI normal to inspection, nondistended, normoactive bowel sounds Palpation: soft and tender periumbilical; Negative for guarding or rebound tenderness present Extremity normal to inspection General Extremety ED: Negative for edema or tenderness General Extremity: Negative for edema Neuro oriented x3, CN's II-XII intact bilaterally and no sensory deficits noted Sensorium / Orientation: alert Motor Exam: strength 5/5 throughout Psych mental status grossly normal Skin no rashes or lesions noted MDM MDM MDM Narrative Medical decision making narrative: Patient was given IV fluids, morphine, and Zofran. CBC was within normal limits. Comprehensive metabolic profile was essentially within normal limits. Lipase was normal. CT scan of the abdomen pelvis was obtained. There is no acute abnormality noted. This was interpreted by the radiologist and reviewed by myself. Patient is feeling better on reevaluation. Patient was instructed to follow-up with her primary care physician in 5 to 7 days. Patient was instructed to return if worse in any way. Patient understood and was agreeable with plans. All questions were answered. Lab Data Labs: Laboratory Results - last 24 hr 04/29/22 04/29/22 17:50 17:50 WBC 6.1 RBC 5.32 Hgb 13.8 Hct 44.2 MCV 83.1 MCH 25.9 L MCHC 31.2 L RDW Std Deviation 47.7 H RDW Coeff of Faby 16.0 H Plt Count 197 MPV 9.3 Immature Gran % (Auto) 0.300 Neut % (Auto) 56.9 Lymph % (Auto) 31.2 [place] % (Auto) 7.4 Eos % (Auto) 3.5 Baso % (Auto) 0.7 Absolute Neuts (auto) 3.4 Absolute Lymphs (auto) 1.89 Nucleated RBC % 0 Sodium 142 Potassium 3.8 Chloride 107 Carbon Dioxide 29.0 Anion Gap 6 BUN 12 Creatinine 0.70 Estim Creat Clear Calc 51.11 Est GFR (MDRD) Af Amer 107 Est GFR (MDRD) Non-Af 89 BUN/Creatinine Ratio 17.2 Glucose 161 H Calcium 10.5 H Total Bilirubin 0.40 AST 19 ALT 25 Alkaline Phosphatase 90 Total Protein 7.4 Albumin 3.1 L Globulin 4.3 H Albumin/Globulin Ratio 0.7 L Lipase 128 Radiography Diagnostic Testing: Clinical Impression(s) from Imaging Studies Abdomen/Pelvis CT 04/29/22 17:34 IMPRESSION: No acute abnormality. Electronically Signed: Chet Pastrana MD at 20:01 EDT , Discharge Plan Triage Chief Complaint: Nausea/Vomiting ED Provider: Bryce Davenport Dx/Rx/DC Orders Clinical Impression: Abdominal pain, Ventral hernia Instructions: ED Abdominal Pain Unkn Cause Fem, ED Hernia (Adult) Prescriptions: No Action multivitamin [Daily Multi-Vitamin] Tablet 1 tab PO DAILY Trulicity 0.75 mg/0.5 mL pen injector 0.75 mg subcut QWEEK Qty: 2 5RF Rx Instructions: stop Januvia pioglitazone 15 mg tablet 15 mg PO DAILY Qty: 30 6RF glipizide 10 mg tablet 10 mg PO .daily at supper Qty: 30 5RF omeprazole 20 MG capsule 20 mg PO DAILY Label Comments: GASTRIC REFLUX amlodipine [Norvasc] 10 MG tablet 10 mg PO DAILY Label Comments: high blood pressure Eliquis 5 MG tablet 5 mg PO BID Label Comments: start eliquis on 10/23/2016 atorvastatin 80 MG tablet 80 mg PO QHS 0RF lisinopril 40 MG tablet 40 mg PO DAILY 0RF metformin 1,000 MG tablet 1,000 mg PO BIDCM carvedilol 12.5 mg tablet 12.5 mg PO BID Januvia 100 mg Tablet 100 mg PO BID ondansetron [ondansetron] 4 mg tablet,disintegrating 8 mg PO Q8H PRN PRN (Reason: Nausea) Qty: 12 0RF Primary Care Provider: Nathaniel Gaines Referrals: Nathaniel Gaines MD [Primary Care Provider] - 5-7 Days Disposition Disposition: Home, Self Care
--- NOTE | 2022-04-29 17:34 | CT_ITS ---
STUDY: CT ABDOMEN AND PELVIS WITHOUT CONTRAST REASON FOR EXAM: Female, 66 years old. Pain RADIATION DOSAGE (If Supplied By Facility): CTDIvol = ( 19.98 ) mGy, DLP = ( 1088.40 ) mGycm TECHNIQUE: Transaxial images were obtained from the dome of the diaphragm to the symphysis pubis without oral contrast, and without intravenous contrast. Sagittal and coronal images were reconstructed. Individualized dose optimization techniques were used for this CT. COMPARISON: 02/17/2022 FINDINGS: The visualized lung bases are unremarkable. The visualized portions of the heart are within normal limits. Normal liver. Normal gallbladder and extrahepatic biliary system. Normal spleen. Normal pancreas. Normal bilateral adrenal glands. No change in the axial medic cyst in the lower pole the right kidney. Normal left kidney. Normal visualized stomach. Normal small intestine. Suture line at the rectosigmoid junction. There is non-visualization of the appendix. Normal abdominal aorta. Normal inferior vena cava. Normal retroperitoneum. Normal urinary bladder. Normal abdominal wall. Normal osseous structures. CT/Abdomen/Pelvis without Cont IMPRESSION: No acute abnormality. Electronically Signed: Chet Pastrana MD at 20:01 EDT ,
[2022-04-29] MEDS: 0.9% Normal Saline 1,000 ML 1000 ML IV (17:55)
[2022-04-29] MEDS: Ondansetron 4 MG/2 ML Vial IV (17:55)
[2022-04-29] MEDS: Morphine 2 MG/ML Syringe IV (17:56)
[2022-04-29 17:57] LABS: Absolute Lymphocyte Count 1.89 X10^3/uL (0.83-4.51); Absolute Neutrophil Count 3.4 X10^3/uL (2.0-7.7); Basophil# 0.04 X10^3/uL; Basophil% 0.7 % (0-1); Eosinophil# 0.21 X10^3/uL; Eosinophils% 3.5 % (0-5); Hematocrit 44.2 % (37-47); Hemoglobin 13.8 g/dL (12.0-15.0); Lymphocyte # 1.89 X10^3/ul (0.83-4.51); Lymphocyte % 31.2 % (19-41); Mean Corp Hgb Conc 31.2 g/dL (32-36); Mean Corpuscular Hgb 25.9 pg (27.0-32.0); Mean Corpuscular Volume 83.1 fL (81-99); Mean Platelet Vol. 9.3 fl (6.2-12.0); Monocyte# 0.45 X10^3/uL; Monocyte% 7.4 % (0-10); NRBC Flagged by Analyzer 0 % (0-5); Neutrophil # 3.44 X10^3/uL (2.7-7.7); Neutrophil % 56.9 % (47-70); Platelet Count 197 K/mm3 (150-450); RBC Distribution Width SD 47.7 fl (35.1-43.9); Red Blood Count 5.32 M/mm3 (4.2-5.4); White Blood Count 6.1 K/mm3 (4.4-11.0)
[2022-04-29 18:13] LABS: ALB/GLOB Ratio 0.7 RATIO (0.9-2.4); AST(SGOT) 19 U/L (15-37); Alanine Aminotransfer ALT/SGPT 25 U/L (13-56); Albumin, Serum 3.1 g/dL (3.2-5.0); Alkaline Phosphatase 90 U/L (45-117); Anion Gap 6 (5-15); BUN 12 mg/dL (7-18); BUN/Creat Ratio 17.2 RATIO (10-20); Calcium,Total 10.5 mg/dL (8.5-10.1); Chloride 107 mmol/L (98-107); EST Glomerular Filtration Rate 89 mL/min (>60); Est Glom Filt Rate - Afr Amer 107 mL/min (>60); Estimated Creatinine Clearance 51.11 ml/min; Globulin 4.3 g/dL (2.2-4.2); Glucose 161 mg/dL (74-106); Lipase 128 U/L (73-393); Potassium 3.8 mmol/L (3.5-5.1); Protein, Total 7.4 g/dL (6.4-8.2); Sodium Level 142 mmol/L (136-145)
== END 2022-04-29 20:30 | disposition home or self-care (01) ==
PROVIDERS: Emergency Provider Emergency Medicine; PCP Family Medicine; Visit Provider Emergency Medicine
DX: K43.9 Ventral hernia without obstruction or gangrene (principal); I48.91 Unspecified atrial fibrillation; E11.9 Type 2 diabetes mellitus without complications; R11.2 Nausea with vomiting, unspecified; I10 Essential (primary) hypertension; Z87.891 Personal history of nicotine dependence; E78.5 Hyperlipidemia, unspecified; R19.7 Diarrhea, unspecified; R10.9 Unspecified abdominal pain; Z86.73 Personal history of transient ischemic attack (TIA), and cerebral infarction without residual deficits; K21.9 Gastro-esophageal reflux disease without esophagitis; E66.9 Obesity, unspecified; G47.33 Obstructive sleep apnea (adult) (pediatric); Z79.01 Long term (current) use of anticoagulants; Z79.84 Long term (current) use of oral hypoglycemic drugs; Z79.899 Other long term (current) drug therapy; Z68.37 Body mass index [BMI] 37.0-37.9, adult
CPT/HCPCS: 74176; 80053; 83690; 85025; 96361; 96374; 96375; 99284; J7030; A4216; J2405

== ENCOUNTER 2022-05-20 20:44 | Emergency (ER) | payer MEDICARE, MEDICAID, SELFPAY ==
[2022-05-20 20:45] VITALS: BP 168/80; PULSE 88; RESP 18; TEMP 36.9; O2SAT 97; BMI 37.0
--- NOTE | 2022-05-20 21:05 | EDS_ITS ---
HPI History of Present Illness Chief Complaint: Abd Pain Informant: patient Narrative Narrative: Brought in by EMS from home reported not feeling well today. No headaches chest pains abdominal pain or vomiting. She has chronic diarrhea for years nonbloody. Denies fever, chills, sweats. She states she has 4 hernia operations to her abdomen. Denies any pain to this area. Her sugar was 112. She is tolerating oral fluids at home. Denies nausea or vomiting. [facility] Medical History Ambulates with cane Atrial fibrillation Diabetes mellitus Difficulty in walking Embolic stroke GERD (gastroesophageal reflux disease) Hyperlipidemia Hypertension Incarcerated ventral hernia Intraventricular hemorrhage Obesity Obesity (BMI 30-39.9) Obstructive sleep apnea Poor historian Recurrent incisional hernia with incarceration Stroke/cerebrovascular accident Home Medications omeprazole 20 mg capsule,delayed release 20 mg PO DAILY GERd 05/29/14 [History Last Taken 02/23/21] amlodipine 10 mg tablet (Norvasc) 10 mg PO DAILY HTN 10/04/16 [History Last Taken 02/23/21] apixaban 5 mg tablet (Eliquis) 5 mg PO BID blood thinner 10/04/16 [History Last Taken 12/26/21] atorvastatin 80 mg tablet 80 mg PO QHS 10/25/16 [Rx Last Taken 02/23/21] lisinopril 40 mg tablet 40 mg PO DAILY 10/25/16 [Rx Last Taken 02/23/21] metformin 1,000 mg tablet 1,000 mg PO BIDCM DIABETES 08/03/20 [History Last Taken 02/23/21] carvedilol 12.5 mg tablet 12.5 mg PO BID HTN 01/23/21 [History Last Taken 02/23/21] sitagliptin phosphate 100 mg tablet (Januvia) 100 mg PO BID diabetes 02/25/21 [History Last Taken 02/23/21] ondansetron 4 mg disintegrating tablet 8 mg PO Q8H PRN PRN Nausea #12 tabs 02/17/22 [Rx Last Taken Unknown] dulaglutide 0.75 mg/0.5 mL subcutaneous pen injector (Trulicity) 0.75 mg (0.5 mL) subcut QWEEK #2 mL 03/10/22 [Rx Last Taken Unknown] glipizide 10 mg tablet 10 mg PO .daily at supper DM #30 tabs 03/10/22 [Rx Last Taken Unknown] multivitamin (Daily Multi-Vitamin tablet) 1 tab PO DAILY 03/10/22 [History Last Taken Unknown] pioglitazone 15 mg tablet 15 mg PO DAILY #30 tabs 03/10/22 [Rx Last Taken Unknown] Allergy/AdvReac Type Severity Reaction Status Date / Time iodine Allergy Mild Itching Verified 03/21/22 18:51 Penicillins Allergy Mild Itching Verified 03/21/22 18:51 Family History Father CVA (cerebral vascular accident) Mother Diabetes Stomach cancer Other High cholesterol Hypertension Surgical History History of hysterectomy Hx of colonoscopy S/P repair of ventral hernia Status post debridement Social History household members: none Smoking Status: Former smoker alcohol intake: never substance use type: does not use what type of physical activity do you participate in: walking frequency: daily ROS ROS ED Constitutional Constitutional ED: Denies chills, fever(s) or sweats Eyes Eyes: Denies change in vision ENT ENT ED: Denies dysphagia or sore throat Cardiovascular Cardiovascular: Denies chest pain, leg edema, palpitations or racing heartbeat Respiratory/Chest Respiratory/Chest: Denies cough, dyspnea or dyspnea on exertion Gastrointestinal Gastrointestinal: Reports diarrhea; Denies abdominal pain, nausea or vomiting Genitourinary Genitourinary ED: Denies dysuria, hematuria or urinary frequency Musculoskeletal Musculoskeletal: Denies back pain, extremity pain or neck pain Integumentary Denies rash or wounds Neurologic Neurologic: Denies headache(s), paresthesias or weakness EXAM Physical Exam Const Vital Signs: 05/20/22 20:45 Temperature 98.5 F Temperature Source Temporal Pulse Rate 88 Respiratory Rate 18 Blood Pressure 168/80 H Blood Pressure Mean 109 Pulse Ox 97 Oxygen Delivery Method Room Air Positive well nourished and well developed Constitutional Narrative: Slow speech, appears to be chronic. Records no history of intraventricular hemorrhage and stroke. General Appearance ED: well developed and NAD HEENT Reports moist mucous membranes normocephalic and atraumatic Eyes PERRL, EOMs intact bilaterally and conjunctivae normal General Eye ED: Yes normal appearance of both eyes Neck no lymphadenopathy and supple General: Negative for tenderness Chest Wall Chest: Negative for tenderness Resp normal respiratory effort and normal air movement Effort and Inspection: symmetric chest movement; Negative for respiratory distress Cardio regular rate, regular rhythm and no murmurs Peripheral Pulses: pulses 2+ throughout GI normal to inspection, nondistended, normoactive bowel sounds and non-tender Palpation: Negative for guarding or rebound tenderness present Back/Spine no CVA tenderness and no thoracic nor lumbar tenderness Extremity normal to inspection General Extremety ED: Negative for edema or tenderness General Extremity: Negative for edema Neuro oriented x3, CN's II-XII intact bilaterally and no sensory deficits noted Neuro Narrative: No focal deficits. Sensorium / Orientation: awake and alert Skin no rashes or lesions noted and no wounds MDM MDM MDM Narrative Medical decision making narrative: Patient nonsurgical abdomen. With chronic diarrhea. Moist mucosal membranes. Abdominal labs obtained all normal. Glucose is 274 Was normal. Patient reassured. Outpatient follow-up. All questions were answered. Lab Data Attestation: I reviewed the patient's lab results. Labs: Laboratory Results - last 24 hr 05/20/22 05/20/22 21:40 21:40 WBC 6.1 RBC 5.28 Hgb 13.6 Hct 44.6 MCV 84.5 MCH 25.8 L MCHC 30.5 L RDW Std Deviation 50.2 H RDW Coeff of Faby 16.5 H Plt Count 207 MPV 9.4 Immature Gran % (Auto) 0.300 Neut % (Auto) 55.3 Lymph % (Auto) 33.5 [place] % (Auto) 7.2 Eos % (Auto) 3.0 Baso % (Auto) 0.7 Absolute Neuts (auto) 3.4 Absolute Lymphs (auto) 2.04 Nucleated RBC % 0 Sodium 140 Potassium 3.9 Chloride 107 Carbon Dioxide 28.0 Anion Gap 5 BUN 11 Creatinine 0.67 Estim Creat Clear Calc 53.09 Est GFR (MDRD) Af Amer 113 Est GFR (MDRD) Non-Af 93 BUN/Creatinine Ratio 16.4 Glucose 274 H Calcium 9.8 Total Bilirubin 0.40 AST 21 ALT 28 Alkaline Phosphatase 96 Total Protein 7.7 Albumin 3.1 L Globulin 4.6 H Albumin/Globulin Ratio 0.7 L Lipase 261 Discharge Plan Triage Chief Complaint: Abd Pain Other Complaint: General Illness ED Provider: Jarred Ulloa Dx/Rx/DC Orders Clinical Impression: Diarrhea, Hyperglycemia due to diabetes mellitus, History of cerebrovascular accident Instructions: Healthy Meals for Diabetes, Treating Diarrhea Prescriptions: No Action multivitamin [Daily Multi-Vitamin] Tablet 1 tab PO DAILY Trulicity 0.75 mg/0.5 mL pen injector 0.75 mg subcut QWEEK Qty: 2 5RF Rx Instructions: stop Januvia pioglitazone 15 mg tablet 15 mg PO DAILY Qty: 30 6RF glipizide 10 mg tablet 10 mg PO .daily at supper Qty: 30 5RF omeprazole 20 MG capsule 20 mg PO DAILY Label Comments: GASTRIC REFLUX amlodipine [Norvasc] 10 MG tablet 10 mg PO DAILY Label Comments: high blood pressure Eliquis 5 MG tablet 5 mg PO BID Label Comments: start eliquis on 10/23/2016 atorvastatin 80 MG tablet 80 mg PO QHS 0RF lisinopril 40 MG tablet 40 mg PO DAILY 0RF metformin 1,000 MG tablet 1,000 mg PO BIDCM carvedilol 12.5 mg tablet 12.5 mg PO BID Januvia 100 mg Tablet 100 mg PO BID ondansetron [ondansetron] 4 mg tablet,disintegrating 8 mg PO Q8H PRN PRN (Reason: Nausea) Qty: 12 0RF Primary Care Provider: Nathaniel Gaines Referrals: Nathaniel Gaines MD [Primary Care Provider] - 3-5 Days Activity Restrictions/Additional Instructions: Glucose 274 otherwise labs are all normal. Continue oral fluids. Follow-up with your doctor.
[2022-05-20 22:03] LABS: ALB/GLOB Ratio 0.7 RATIO (0.9-2.4); AST(SGOT) 21 U/L (15-37); Alanine Aminotransfer ALT/SGPT 28 U/L (13-56); Albumin, Serum 3.1 g/dL (3.2-5.0); Alkaline Phosphatase 96 U/L (45-117); Anion Gap 5 (5-15); BUN 11 mg/dL (7-18); BUN/Creat Ratio 16.4 RATIO (10-20); Calcium,Total 9.8 mg/dL (8.5-10.1); Chloride 107 mmol/L (98-107); Creatinine, Serum 0.67 mg/dL (0.55-1.02); EST Glomerular Filtration Rate 93 mL/min (>60); Est Glom Filt Rate - Afr Amer 113 mL/min (>60); Estimated Creatinine Clearance 53.09 ml/min; Globulin 4.6 g/dL (2.2-4.2); Glucose 274 mg/dL (74-106); Lipase 261 U/L (73-393); Potassium 3.9 mmol/L (3.5-5.1); Protein, Total 7.7 g/dL (6.4-8.2); Sodium Level 140 mmol/L (136-145)
[2022-05-20 22:13] LABS: Absolute Lymphocyte Count 2.04 X10^3/uL (0.83-4.51); Absolute Neutrophil Count 3.4 X10^3/uL (2.0-7.7); Basophil# 0.04 X10^3/uL; Basophil% 0.7 % (0-1); Eosinophil# 0.18 X10^3/uL; Hematocrit 44.6 % (37-47); Hemoglobin 13.6 g/dL (12.0-15.0); Lymphocyte # 2.04 X10^3/ul (0.83-4.51); Lymphocyte % 33.5 % (19-41); Mean Corp Hgb Conc 30.5 g/dL (32-36); Mean Corpuscular Hgb 25.8 pg (27.0-32.0); Mean Corpuscular Volume 84.5 fL (81-99); Mean Platelet Vol. 9.4 fl (6.2-12.0); Monocyte# 0.44 X10^3/uL; Monocyte% 7.2 % (0-10); NRBC Flagged by Analyzer 0 % (0-5); Neutrophil # 3.37 X10^3/uL (2.7-7.7); Neutrophil % 55.3 % (47-70); Platelet Count 207 K/mm3 (150-450); RBC Distribution Width CV 16.5 % (11.6-14.6); RBC Distribution Width SD 50.2 fl (35.1-43.9); Red Blood Count 5.28 M/mm3 (4.2-5.4); White Blood Count 6.1 K/mm3 (4.4-11.0)
== END 2022-05-20 22:42 | disposition home or self-care (01) ==
PROVIDERS: Emergency Provider Emergency Medicine; PCP Family Medicine; Visit Provider Emergency Medicine
DX: K52.9 Noninfective gastroenteritis and colitis, unspecified (principal); E11.65 Type 2 diabetes mellitus with hyperglycemia; I10 Essential (primary) hypertension; E78.5 Hyperlipidemia, unspecified; Z87.891 Personal history of nicotine dependence; Z86.73 Personal history of transient ischemic attack (TIA), and cerebral infarction without residual deficits
CPT/HCPCS: 80053; 83690; 85025; 96360; 99284; A4216

== ENCOUNTER 2022-06-14 19:21 | Emergency (ER) | payer MEDICARE, MEDICAID, SELFPAY ==
[2022-06-14 19:22] VITALS: BP 154/82; PULSE 88; RESP 16; TEMP 36.6; O2SAT 100; BMI 38.1
--- NOTE | 2022-06-14 20:32 | CT_ITS ---
STUDY: CT BRAIN WITHOUT CONTRAST REASON FOR EXAM: Female, 66 years old. headache RADIATION DOSAGE (If Supplied By Facility): CTDIvol = ( 44.99 ) mGy, DLP = ( 846.73 ) mGycm TECHNIQUE: Transaxial CT imaging of the brain was performed without administration of intravenous contrast material. Individualized dose optimization techniques were used for this CT. COMPARISON: 10/16/2020. FINDINGS: Normal soft tissue structures. Normal calvarium. Calcific plaquing of cavernous carotids. Mild atrophy and periventricular white matter ischemic changes . Old bilateral lacunar infarcts.. Normal brainstem. Normal cerebellum. There is no intracranial hemorrhage. There are no findings of an acute ischemic infarction. Postsurgical changes of the orbits. Normal visualized paranasal sinuses. CT/Brain/Head without Contrast IMPRESSION: Mild atrophy and periventricular white matter ischemic changes. Old bilateral lacunar infarcts. No acute bleed. If concern for acute infarct MRI recommended.. Electronically Signed: Wilfrido Gunter MD at 21:24 EST ,
--- NOTE | 2022-06-14 20:35 | EX.ED.DYSGE1 ---
HPI History of Present Illness Chief Complaint: Nausea/Vomiting/Diarrhea Informant: patient Narrative Narrative: Patient presents stating that she has headache nausea vomiting and a little bit of a cough that all started last night. She does not have myalgias. No fever. No trauma. She first denied being on blood thinners. Then I noticed her med list showed Eliquis and she admitted to taking that. She states she has abdominal hernia that she needs repeat surgery on but that is not hurting her. In fact she has no abdominal pain despite some nausea and vomiting. She states they cannot do surgery until they get her A1c down to 7. Her last A1c was over 14. After extensive talking, I find out that the patient has daily headaches. They are in the front of her head just like this 1. They are commonly associated with nausea vomiting or diarrhea. She states they are migraines. She is now stating that the symptoms she has today are really the symptoms she has every day. Nothing seems to make them better or worse. [facility] Medical History Ambulates with cane Atrial fibrillation Diabetes mellitus Difficulty in walking Embolic stroke GERD (gastroesophageal reflux disease) Hyperlipidemia Hypertension Incarcerated ventral hernia Intraventricular hemorrhage Obesity Obesity (BMI 30-39.9) Obstructive sleep apnea Poor historian Recurrent incisional hernia with incarceration Stroke/cerebrovascular accident Home Medications omeprazole 20 mg capsule,delayed release 20 mg PO DAILY GERd 05/29/14 [History Last Taken 02/23/21] amlodipine 10 mg tablet (Norvasc) 10 mg PO DAILY HTN 10/04/16 [History Last Taken 02/23/21] apixaban 5 mg tablet (Eliquis) 5 mg PO BID blood thinner 10/04/16 [History Last Taken 12/26/21] atorvastatin 80 mg tablet 80 mg PO QHS 10/25/16 [Rx Last Taken 02/23/21] lisinopril 40 mg tablet 40 mg PO DAILY 10/25/16 [Rx Last Taken 02/23/21] metformin 1,000 mg tablet 1,000 mg PO BIDCM DIABETES 08/03/20 [History Last Taken 02/23/21] carvedilol 12.5 mg tablet 12.5 mg PO BID HTN 01/23/21 [History Last Taken 02/23/21] sitagliptin phosphate 100 mg tablet (Januvia) 100 mg PO BID diabetes 02/25/21 [History Last Taken 02/23/21] ondansetron 4 mg disintegrating tablet 8 mg PO Q8H PRN PRN Nausea #12 tabs 02/17/22 [Rx Last Taken Unknown] dulaglutide 0.75 mg/0.5 mL subcutaneous pen injector (Trulicity) 0.75 mg (0.5 mL) subcut QWEEK #2 mL 03/10/22 [Rx Last Taken Unknown] glipizide 10 mg tablet 10 mg PO .daily at supper DM #30 tabs 03/10/22 [Rx Last Taken Unknown] multivitamin (Daily Multi-Vitamin tablet) 1 tab PO DAILY 03/10/22 [History Last Taken Unknown] pioglitazone 15 mg tablet 15 mg PO DAILY #30 tabs 03/10/22 [Rx Last Taken Unknown] Allergy/AdvReac Type Severity Reaction Status Date / Time iodine Allergy Mild Itching Verified 06/14/22 19:24 Penicillins Allergy Mild Itching Verified 06/14/22 19:24 Family History Father CVA (cerebral vascular accident) Mother Diabetes Stomach cancer Other High cholesterol Hypertension Surgical History History of hysterectomy Hx of colonoscopy S/P repair of ventral hernia Status post debridement Social History household members: none Smoking Status: Former smoker alcohol intake: never substance use type: does not use what type of physical activity do you participate in: walking frequency: daily ROS ROS ED Constitutional Constitutional ED: Denies chills, fever(s) or subjective Eyes Eyes: Denies blurry vision or change in vision ENT ENT ED: Reports sore throat; Denies rhinorrhea Cardiovascular Cardiovascular: Denies chest pain, palpitations or racing heartbeat Respiratory/Chest Respiratory/Chest: Reports cough; Denies dyspnea or sputum Gastrointestinal Gastrointestinal: Reports nausea and vomiting; Denies abdominal pain, constipation, diarrhea or melena Genitourinary Genitourinary ED: Denies dysuria Musculoskeletal Musculoskeletal: Denies arthralgias or myalgias Integumentary Denies rash Neurologic Neurologic: Reports headache(s); Denies paresthesias or weakness Endocrine Endocrinology: Reports other Details: She denies polyuria or polydipsia. However, with a hemoglobin A1c of 14 she likely does have some of this. ; Denies polydipsia or polyuria Hematologic/Lymphatic Hematologic/Lymphatic: Reports easy bleeding and easy bruising Allergic/Immunologic Allergic/Immunologic ED: Denies urticaria EXAM Physical Exam Const Vital Signs: 06/14/22 19:22 Temperature 98 F Temperature Source Temporal Pulse Rate 88 Respiratory Rate 16 Blood Pressure 154/82 H Blood Pressure Mean 106 Pulse Ox 100 Oxygen Delivery Method Room Air Positive well nourished and well developed Constitutional Narrative: Patient is awake alert. She is pleasant. She introduces herself. She is nontoxic. General Appearance ED: well developed and NAD HEENT Reports moist mucous membranes HEENT Narrative: Mucous membranes are moist. No sinus tenderness. No temporal artery tenderness on either side. No facial rash. Negative Araujo sign Eyes Negative for PERRL or EOMs intact bilaterally Eyes Narrative: No photophobia. No limitation of range of motion Neck supple Neck Narrative: No meningismus. Resp normal respiratory effort and clear to auscultation bilaterally Auscultation: Negative for rales, rhonchi or wheezes Cardio regular rate and regular rhythm GI normal to inspection, nondistended, normoactive bowel sounds and non-tender GI Narrative: Large abdomen. She has likely a large abdominal wall defect toward the right side but there is no tenderness at all. Back/Spine no CVA tenderness Extremity Extremity Narrative: Mild edema but really not pitting. Chronic venous stasis changes. No tenderness Neuro oriented x3 Neuro Narrative: Patient awake alert and appropriate. Psych mental status grossly normal Skin no rashes or lesions noted MDM MDM MDM Narrative Medical decision making narrative: X-ray and CT as below. Blood work showed normal white count hemoglobin. Electrolytes liver function tests were normal other than glucose of 139 which is actually quite good for her. I rechecked the patient. Her symptoms are resolved and she is wide-awake. She tells me she gets the symptoms when she gets headaches. She describes them as her migraines. I think she is okay for discharge and she would like to go home. Lab Data Attestation: I reviewed the patient's lab results. Labs: Laboratory Results - last 24 hr 06/14/22 06/14/22 20:50 20:50 WBC 5.3 RBC 4.90 Hgb 13.0 Hct 41.5 MCV 84.7 MCH 26.5 L MCHC 31.3 L RDW Std Deviation 49.6 H RDW Coeff of Faby 16.0 H Plt Count 186 MPV 9.0 Immature Gran % (Auto) 0.200 Neut % (Auto) 52.5 Lymph % (Auto) 36.3 [place] % (Auto) 8.4 Eos % (Auto) 1.9 Baso % (Auto) 0.7 Absolute Neuts (auto) 2.8 Absolute Lymphs (auto) 1.94 Nucleated RBC % 0 Sodium 143 Potassium 4.0 Chloride 106 Carbon Dioxide 32.0 Anion Gap 5 BUN 13 Creatinine 0.60 Estim Creat Clear Calc 49.12 Est GFR (MDRD) Af Amer 129 Est GFR (MDRD) Non-Af 106 BUN/Creatinine Ratio 21.8 H Glucose 139 H Calcium 10.1 Total Bilirubin 0.30 AST 16 ALT 25 Alkaline Phosphatase 92 Total Protein 7.1 Albumin 3.0 L Globulin 4.1 Albumin/Globulin Ratio 0.7 L Radiography Diagnostic Testing: Clinical Impression(s) from Imaging Studies Brain CT 06/14/22 20:32 IMPRESSION: Mild atrophy and periventricular white matter ischemic changes. Old bilateral lacunar infarcts. No acute bleed. If concern for acute infarct MRI recommended.. Electronically Signed: Wilfrido Gunter MD at 21:24 EST , Chest X-Ray 06/14/22 21:09 IMPRESSION: Probable mild right middle lobe atelectasis or infiltrate. Clinical correlation recommended Electronically Signed: Wilfrido Gunter MD at 21:27 EST , CT scan of the head looked at by me and read by radiology shows no acute process. X-ray showed right middle lobe atelectasis versus infiltrate. Although the patient has an occasional cough she describes this is more chronic. She is not hypoxic. She has no fever. She has no white count. I do not think this represents an infiltrate. Discharge Plan Triage Chief Complaint: Nausea/Vomiting/Diarrhea ED Provider: Hector Yao Dx/Rx/DC Orders Clinical Impression: Headache, Nausea & vomiting Instructions: Understanding Headache Pain, ED Vomiting (Adult) Prescriptions: No Action multivitamin [Daily Multi-Vitamin] Tablet 1 tab PO DAILY Trulicity 0.75 mg/0.5 mL pen injector 0.75 mg subcut QWEEK Qty: 2 5RF Rx Instructions: stop Januvia pioglitazone 15 mg tablet 15 mg PO DAILY Qty: 30 6RF glipizide 10 mg tablet 10 mg PO .daily at supper Qty: 30 5RF omeprazole 20 MG capsule 20 mg PO DAILY Label Comments: GASTRIC REFLUX amlodipine [Norvasc] 10 MG tablet 10 mg PO DAILY Label Comments: high blood pressure Eliquis 5 MG tablet 5 mg PO BID Label Comments: start eliquis on 10/23/2016 atorvastatin 80 MG tablet 80 mg PO QHS 0RF lisinopril 40 MG tablet 40 mg PO DAILY 0RF metformin 1,000 MG tablet 1,000 mg PO BIDCM carvedilol 12.5 mg tablet 12.5 mg PO BID Januvia 100 mg Tablet 100 mg PO BID ondansetron [ondansetron] 4 mg tablet,disintegrating 8 mg PO Q8H PRN PRN (Reason: Nausea) Qty: 12 0RF Primary Care Provider: Nathaniel Gaines Referrals: Nathaniel Gaines MD [Primary Care Provider] - 3-5 Days if not improving Disposition Disposition: Home, Self Care
[2022-06-14] MEDS: proCHLORPERazine 10 MG/2 ML Vial 5 MG IV (20:48)
[2022-06-14] MEDS: DiphenhydrAMINE 50 MG/ML Syringe 25 MG IV (20:48)
[2022-06-14 20:55] LABS: Absolute Lymphocyte Count 1.94 X10^3/uL (0.83-4.51); Absolute Neutrophil Count 2.8 X10^3/uL (2.0-7.7); Basophil# 0.04 X10^3/uL; Basophil% 0.7 % (0-1); Eosinophils% 1.9 % (0-5); Hematocrit 41.5 % (37-47); Lymphocyte # 1.94 X10^3/ul (0.83-4.51); Lymphocyte % 36.3 % (19-41); Mean Corp Hgb Conc 31.3 g/dL (32-36); Mean Corpuscular Hgb 26.5 pg (27.0-32.0); Mean Corpuscular Volume 84.7 fL (81-99); Monocyte# 0.45 X10^3/uL; Monocyte% 8.4 % (0-10); NRBC Flagged by Analyzer 0 % (0-5); Neutrophil % 52.5 % (47-70); Platelet Count 186 K/mm3 (150-450); RBC Distribution Width SD 49.6 fl (35.1-43.9); White Blood Count 5.3 K/mm3 (4.4-11.0)
--- NOTE | 2022-06-14 21:09 | RAD_ITS ---
STUDY: X-RAY CHEST REASON FOR EXAM: Female, 66 years old. cough TECHNIQUE: AP portable COMPARISON: 08/03/2020 FINDINGS: There is silhouetting right heart border which may be consistent with right middle lobe atelectasis or infiltrate. Left lung is clear.. There is no demonstrated pleural abnormality. Normal size heart. Normal mediastinum and joselin. Normal visualized pulmonary arteries. Mildly calcified aortic arch and descending thoracic aorta. Normal visualized thoracic spine. Normal visualized ribs, clavicles, and shoulders. There is no demonstrated abnormality of the visualized soft tissue structures of the upper abdomen. RAD/Chest 1 View (Portable) IMPRESSION: Probable mild right middle lobe atelectasis or infiltrate. Clinical correlation recommended Electronically Signed: Wilfrido Gunter MD at 21:27 EST ,
[2022-06-14 21:11] LABS: ALB/GLOB Ratio 0.7 RATIO (0.9-2.4); AST(SGOT) 16 U/L (15-37); Alanine Aminotransfer ALT/SGPT 25 U/L (13-56); Alkaline Phosphatase 92 U/L (45-117); Anion Gap 5 (5-15); BUN 13 mg/dL (7-18); BUN/Creat Ratio 21.8 RATIO (10-20); Calcium,Total 10.1 mg/dL (8.5-10.1); Chloride 106 mmol/L (98-107); EST Glomerular Filtration Rate 106 mL/min (>60); Est Glom Filt Rate - Afr Amer 129 mL/min (>60); Estimated Creatinine Clearance 49.12 ml/min; Globulin 4.1 g/dL (2.2-4.2); Glucose 139 mg/dL (74-106); Protein, Total 7.1 g/dL (6.4-8.2); Sodium Level 143 mmol/L (136-145)
[2022-06-14 22:22] VITALS: RESP 18; O2SAT 99
== END 2022-06-14 22:22 | disposition home or self-care (01) ==
PROVIDERS: Emergency Provider Emergency Medicine; PCP Family Medicine; Visit Provider Emergency Medicine
DX: R11.2 Nausea with vomiting, unspecified (principal); E11.9 Type 2 diabetes mellitus without complications; R51.9 Headache, unspecified; E78.5 Hyperlipidemia, unspecified; I10 Essential (primary) hypertension; Z87.891 Personal history of nicotine dependence
CPT/HCPCS: 70450; 71045; 80053; 85025; 87428; 93005; 96374; 96375; 99285; A4216

== ENCOUNTER 2022-08-30 23:02 | Emergency (ER) | payer MEDICARE, MEDICAID, SELFPAY ==
[2022-08-30 23:04] VITALS: BP 147/63; PULSE 115; RESP 16; TEMP 36.2; O2SAT 96; BMI 40.8
--- NOTE | 2022-08-30 23:17 | EKG12_ITS ---
Test Reason : DYSRHYTHMIA Blood Pressure : / mmHG Vent. Rate : 110 BPM Atrial Rate : 110 BPM P-R Int : 160 ms QRS Dur : 068 ms QT Int : 336 ms P-R-T Axes : 070 050 058 degrees QTc Int : 454 ms Sinus tachycardia Otherwise normal ECG Confirmed by SHAN GAFFNEY, JOSE ([id number]), magazine editor REGAN ANDERSON ([id number]) on 09/01/2022 2:47:01 PM Referred By: GABBIE Confirmed By:BRODY TORREZ MD
[2022-08-30] MEDS: Ondansetron 4 MG/2 ML Vial IV (23:32)
[2022-08-30] MEDS: 0.9% Normal Saline 1,000 ML 1000 ML IV (23:32)
[2022-08-30 23:46] LABS: Absolute Lymphocyte Count 1.22 X10^3/uL (0.83-4.51); Absolute Neutrophil Count 3.7 X10^3/uL (2.0-7.7); Basophil# 0.03 X10^3/uL; Basophil% 0.5 % (0-1); Eosinophil# 0.06 X10^3/uL; Eosinophils% 1.1 % (0-5); Hematocrit 43.2 % (37-47); Hemoglobin 13.6 g/dL (12.0-15.0); Lymphocyte # 1.22 X10^3/ul (0.83-4.51); Lymphocyte % 22.3 % (19-41); Mean Corp Hgb Conc 31.5 g/dL (32-36); Mean Corpuscular Hgb 26.1 pg (27.0-32.0); Mean Corpuscular Volume 82.9 fL (81-99); Mean Platelet Vol. 9.6 fl (6.2-12.0); Monocyte# 0.35 X10^3/uL; Monocyte% 6.4 % (0-10); NRBC Flagged by Analyzer 0 % (0-5); Neutrophil # 3.71 X10^3/uL (2.7-7.7); Neutrophil % 68.1 % (47-70); Platelet Count 215 K/mm3 (150-450); RBC Distribution Width SD 45.4 fl (35.1-43.9); Red Blood Count 5.21 M/mm3 (4.2-5.4); White Blood Count 5.5 K/mm3 (4.4-11.0)
[2022-08-31 00:01] LABS: Anion Gap 7 (5-15); BUN 13 mg/dL (7-18); BUN/Creat Ratio 14.4 RATIO (10-20); Chloride 100 mmol/L (98-107); EST Glomerular Filtration Rate 66 mL/min (>60); Est Glom Filt Rate - Afr Amer 80 mL/min (>60); Estimated Creatinine Clearance 54.58 ml/min; Glucose 383 mg/dL (74-106); Potassium 4.6 mmol/L (3.5-5.1); Sodium Level 136 mmol/L (136-145)
[2022-08-31] MEDS: Insulin Lispro 100 UNIT/ML INSULN.PEN SC (00:47)
--- NOTE | 2022-08-31 00:54 | EX.ED.DYSGE1 ---
HPI History of Present Illness Chief Complaint: Hyperglycemia Detail of Chief Complaint: Blood sugar greater than 400, nausea and vomiting acute and chronic diarrhe Informant: patient Onset/Context/Timing Onset: Today Context: Sudden Onset Timing: Continuous (Elevated blood sugar since this morning) and Intermittent (Intermittent nausea and vomiting) Quality: Elevated blood sugar and nausea and vomiting Location: Endocrine and GI Current Severity: Moderate Maximum Severity: Moderate Worsened by: Nothing Relieved by: Nothing Associated Symptoms Associated Symptoms: Denies fever, chills night sweats. Endorses dry mouth, thirst and palpitat Narrative Narrative: Patient is a 66-year-old woman with history of poorly controlled type 2 diabetes, obstructive sleep apnea, hypertension, hyperlipidemia, obesity with a BMI greater than 40, atrial fibrillation, embolic and hemorrhagic stroke who presents with nausea and vomiting. She is vomited several times. Denies blood or coffee grounds in her emesis. She states her diarrhea is chronic and is been present for months. She states her blood sugars greater than 400. She she voiced good control. After review of records determined that she is poorly controlled. She reports compliance with meds and diet Patient is on long-term anticoagulant, apixaban for atrial fibrillation. She denies dysuria, hematuria or urgency. She denies frequency. She does endorse polyuria denies nocturia or polyuria. She denies fever, chills night sweats. She denies headache, visual, ocular auditory symptoms. She denies cardiac or respiratory symptoms. She denies black or maroon-colored stool. She denies bruising easily. Prior similar symptoms: Yes Recent Illness/Hospitalization: No PFSH [facility] Medical History Ambulates with cane Atrial fibrillation Diabetes mellitus Difficulty in walking Embolic stroke GERD (gastroesophageal reflux disease) Hyperlipidemia Hypertension Incarcerated ventral hernia Intraventricular hemorrhage Obesity Obesity (BMI 30-39.9) Obstructive sleep apnea Poor historian Recurrent incisional hernia with incarceration Stroke/cerebrovascular accident Home Medications omeprazole 20 mg capsule,delayed release 20 mg PO DAILY GERd 05/29/14 [History Last Taken 02/23/21] amlodipine 10 mg tablet (Norvasc) 10 mg PO DAILY HTN 10/04/16 [History Last Taken 02/23/21] apixaban 5 mg tablet (Eliquis) 5 mg PO BID blood thinner 10/04/16 [History Last Taken 12/26/21] atorvastatin 80 mg tablet 80 mg PO QHS 10/25/16 [Rx Last Taken 02/23/21] lisinopril 40 mg tablet 40 mg PO DAILY 10/25/16 [Rx Last Taken 02/23/21] metformin 1,000 mg tablet 1,000 mg PO BIDCM DIABETES 08/03/20 [History Last Taken 02/23/21] carvedilol 12.5 mg tablet 12.5 mg PO BID HTN 01/23/21 [History Last Taken 02/23/21] ondansetron 4 mg disintegrating tablet 8 mg PO Q8H PRN PRN Nausea #12 tabs 02/17/22 [Rx Last Taken Unknown] multivitamin (Daily Multi-Vitamin tablet) 1 tab PO DAILY 03/10/22 [History Last Taken Unknown] pioglitazone 15 mg tablet 15 mg PO DAILY #30 tabs 03/10/22 [Rx Last Taken Unknown] dulaglutide 0.75 mg/0.5 mL subcutaneous pen injector (Trulicity) 0.75 mg (0.5 mL) subcut QWEEK #2 mL 08/21/22 [Rx Last Taken Unknown] glipizide 10 mg tablet 10 mg PO .daily at supper DM #30 tabs 08/28/22 [Rx Last Taken Unknown] Allergy/AdvReac Type Severity Reaction Status Date / Time iodine Allergy Mild Itching Verified 08/30/22 23:04 Penicillins Allergy Mild Itching Verified 08/30/22 23:04 Family History Father CVA (cerebral vascular accident) Mother Diabetes Stomach cancer Other High cholesterol Hypertension Surgical History History of hysterectomy Hx of colonoscopy S/P repair of ventral hernia Status post debridement Social History household members: none Smoking Status: Former smoker alcohol intake: never substance use type: does not use what type of physical activity do you participate in: walking frequency: daily ROS ROS ED Constitutional Constitutional ED: Denies chills, fever(s), subjective, sweats or weight loss Eyes Eyes: Denies blurry vision, change in vision or diplopia ENT ENT ED: Denies ear pain, rhinorrhea or sore throat Cardiovascular Cardiovascular: Reports racing heartbeat; Denies chest pain, orthopnea or palpitations Respiratory/Chest Respiratory/Chest: Denies cough, dyspnea, dyspnea on exertion or orthopnea Gastrointestinal Gastrointestinal: Reports abdominal pain, diarrhea, nausea and vomiting; Denies constipation or melena Genitourinary Genitourinary ED: Denies dysuria, hematuria or urinary frequency Musculoskeletal Musculoskeletal: Denies arthralgias, back pain, myalgias or neck pain Integumentary Denies rash Neurologic Neurologic: Denies headache(s), paresthesias or weakness Endocrine Endocrinology: Reports polydipsia; Denies cold intolerance, heat intolerance or polyuria Hematologic/Lymphatic Hematologic/Lymphatic: Reports systems reviewed and no addt'l complaints, except as documented and easy bruising EXAM Physical Exam Const Vital Signs: 08/30/22 23:04 08/31/22 01:03 08/31/22 03:58 Temperature 97.2 F L Temperature Source Temporal Pulse Rate 115 H 108 H 105 H Respiratory Rate 16 16 20 H Blood Pressure 147/63 H Blood Pressure Mean 91 Pulse Ox 96 98 Oxygen Delivery Method Room Air Room Air Positive well nourished, well developed and obese General Appearance ED: well developed and NAD; Negative for cyanotic, diaphoretic or pallor Nutritional Appearance: obese HEENT Reports dry mucous membranes HEENT Narrative: Head is atraumatic normocephalic. Ears normal. TMs normal. Nares patent. Uvula midline. No erythema or exudate the posterior pharynx. Mouth ED: Yes dry mucous membranes Mouth: dry mucous membranes Eyes PERRL and EOMs intact bilaterally General Eye ED: Negative for pale conjunctiva or scleral icterus Neck no lymphadenopathy, supple and no JVD Chest Wall inspection of chest normal and palpation of chest normal Resp normal respiratory effort and clear to auscultation bilaterally Cardio no murmurs Rate: tachycardic Rhythm: abnormal rhythm irregularly irregular GI normal to inspection, nondistended, normoactive bowel sounds, non-tender, non-distended and no masses; Negative for hepatosplenomegaly Auscultation: hypoactive bowel sounds Extremity normal to inspection General Extremety ED: Negative for edema or tenderness General Extremity: Negative for edema Neuro oriented x3, CN's II-XII intact bilaterally and no sensory deficits noted Sensorium / Orientation: alert Psych mental status grossly normal Skin no rashes or lesions noted, no wounds and skin turgor normal General Skin Exam: Negative for jaundice or pallor MDM MDM MDM Narrative Medical decision making narrative: Suspect patient's hyperglycemia is due to poor control and nausea and vomiting. Review of surgical records indicates ventral hernia repair was delayed because of elevated A1c which is consistent with poor control. The ventral hernia was repaired November 2021. Neurology records were reviewed and indicated she had an embolic stroke in 2017 due to A. fib. She is on long-term anticoagulant, Bactroban. Will obtain BMP to assess glucose, CO2 anion gap and electrolytes as well as renal function. CBC was obtained to evaluate for anemia as well as white count differential. Since clinically patient is dehydrated with tachycardia she received 1 L of normal saline since she does not have history of congestive heart failure. She was treated with Zofran for her nausea and vomiting. After reviewing labs and determined the patient's blood sugar was elevated 383. She received 5 units of insulin subcu. Since patient's had no vomiting as of 144. P.o. challenge was ordered. If she passes p.o. challenge will be discharged to home. Patient's blood sugar was reassessed. Blood sugars greater than 400. She received 8 units of subcu insulin. We will continue to observe. Repeat blood sugar at 0420 is 361. Additional dose of insulin was ordered, 10 units and 1 L of normal saline. Repeat blood sugar at 0600 is 185. Will discharge to home Lab Data Attestation: I reviewed the patient's lab results. Lab results narrative: CBC is unremarkable basic metabolic panel is remarkable elevated blood sugar of 383 with a normal CO2 and anion gap. Electrolytes are unremarkable. UA remarkable for glucose urea, occult blood, proteinuria and leukoesterase. Microscopic is negative. There is no ketones noted. Labs: Laboratory Results - last 24 hr 08/30/22 08/30/22 08/31/22 23:34 23:34 01:05 WBC 5.5 RBC 5.21 Hgb 13.6 Hct 43.2 MCV 82.9 MCH 26.1 L MCHC 31.5 L RDW Std Deviation 45.4 H RDW Coeff of Faby 15.0 H Plt Count 215 MPV 9.6 Immature Gran % (Auto) 1.600 H Neut % (Auto) 68.1 Lymph % (Auto) 22.3 [place] % (Auto) 6.4 Eos % (Auto) 1.1 Baso % (Auto) 0.5 Absolute Neuts (auto) 3.7 Absolute Lymphs (auto) 1.22 Nucleated RBC % 0 Sodium 136 Potassium 4.6 Chloride 100 Carbon Dioxide 29.0 Anion Gap 7 BUN 13 Creatinine 0.90 Estim Creat Clear Calc 54.58 Est GFR (MDRD) Af Amer 80 Est GFR (MDRD) Non-Af 66 BUN/Creatinine Ratio 14.4 Glucose 383 H Calcium 10.0 Urine Color Yellow Urine Clarity Clear Urine pH 6.0 Ur Specific [place] 1.020 Urine Protein 100 H Urine Glucose (UA) 1000 H Urine Ketones Negative Urine Occult Blood 10 H Urine Nitrite Negative Urine Bilirubin Negative Urine Urobilinogen Normal Ur Leukocyte Esterase 25 H Urine RBC 0 SEEN Urine WBC 0-5 SEEN Ur Squamous Epith Cells 0-5 SEEN Urine Bacteria 0 SEEN Urine Mucus 0 SEEN POC Glucose 08/31/22 08/31/22 02:08 04:20 WBC RBC Hgb Hct MCV MCH MCHC RDW Std Deviation RDW Coeff of Faby Plt Count MPV Immature Gran % (Auto) Neut % (Auto) Lymph % (Auto) [place] % (Auto) Eos % (Auto) Baso % (Auto) Absolute Neuts (auto) Absolute Lymphs (auto) Nucleated RBC % Sodium Potassium Chloride Carbon Dioxide Anion Gap BUN Creatinine Estim Creat Clear Calc Est GFR (MDRD) Af Amer Est GFR (MDRD) Non-Af BUN/Creatinine Ratio Glucose Calcium Urine Color Urine Clarity Urine pH Ur Specific [place] Urine Protein Urine Glucose (UA) Urine Ketones Urine Occult Blood Urine Nitrite Urine Bilirubin Urine Urobilinogen Ur Leukocyte Esterase Urine RBC Urine WBC Ur Squamous Epith Cells Urine Bacteria Urine Mucus POC Glucose 401 H 369 H Rhythm Strip Rhythm Strip: Sinus Tach Rate: 114 Ectopy: PVC(s) (Occasional) EKG Initial EKG: Attestation: I personally reviewed and interpreted this EKG as follows: Interpretation: Sinus Tachycardia (Rate is 103. The EKG is otherwise unremarkable. UT interval 260 ms. QS duration 68 ms. QT durations are 36 ms. [place] is normal.) Discharge Plan Triage Chief Complaint: Hyperglycemia ED Provider: Abdifatah Waterman Dx/Rx/DC Orders Clinical Impression: Hyperglycemia due to type 2 diabetes mellitus, Atrial fibrillation, Obstructive sleep apnea, Hypertension, Moderate nausea and vomiting, Acute dehydration, Sinus tachycardia, Morbid obesity with BMI of 40.0-44.9, adult Instructions: ED Diabetic Hyperglycemia, ED Vomiting (Adult) Prescriptions: No Action multivitamin [Daily Multi-Vitamin] Tablet 1 tab PO DAILY pioglitazone 15 mg tablet 15 mg PO DAILY Qty: 30 6RF omeprazole 20 MG capsule 20 mg PO DAILY Label Comments: GASTRIC REFLUX amlodipine [Norvasc] 10 MG tablet 10 mg PO DAILY Label Comments: high blood pressure Eliquis 5 MG tablet 5 mg PO BID Label Comments: start eliquis on 10/23/2016 atorvastatin 80 MG tablet 80 mg PO QHS 0RF lisinopril 40 MG tablet 40 mg PO DAILY 0RF metformin 1,000 MG tablet 1,000 mg PO BIDCM carvedilol 12.5 mg tablet 12.5 mg PO BID ondansetron [ondansetron] 4 mg tablet,disintegrating 8 mg PO Q8H PRN PRN (Reason: Nausea) Qty: 12 0RF Trulicity 0.75 mg/0.5 mL pen injector 0.75 mg subcut QWEEK Qty: 2 2RF Rx Instructions: stop Januvia glipizide 10 mg tablet 10 mg PO .daily at supper Qty: 30 1RF Primary Care Provider: Dennis Pelayo Referrals: Dennis Pelayo DO [Primary Care Provider] - 3-5 Days Disposition Disposition: Home, Self Care
[2022-08-31 01:03] VITALS: PULSE 108; RESP 16; O2SAT 98
[2022-08-31 01:09] LABS: Bacteria 0 SEEN /hpf (None Seen); Mucous, Urine 0 SEEN /hpf (<or=2+); Red Blood Cells-Urine 0 SEEN /hpf (0-5)
[2022-08-31 01:10] LABS: Color, Urine Yellow (Yellow); Glucose, Dipstick 1000 mg/dl (Normal); Ketone-Dipstick Negative (Negative); Leukocyte Esterase-Dipstick 25 /ul (Negative); Nitrite-Dipstick Negative (Negative); Occult Blood-Urine 10 /ul (Negative); Protein-Dipstick 100 mg/dl (Negative); Urine Bilirubin Dipstick Negative (Negative); Urine Clarity Clear (Clear); Urine Urobilinogen Normal (Normal)
[2022-08-31 01:17] LABS: Squamous Epithelial Cells - UA 0-5 SEEN /hpf (5-10); White Blood Cells 0-5 SEEN /hpf (0-5)
[2022-08-31 02:31] LABS: Bedside Glucose 401 mg/dL (74-106)
[2022-08-31] MEDS: Insulin Lispro 100 UNIT/ML INSULN.PEN 8 UNIT SC (02:37)
[2022-08-31 03:58] VITALS: PULSE 105; RESP 20
[2022-08-31] MEDS: NSY 0.9% NS BOLUS 1000 ML IV (04:27)
[2022-08-31] MEDS: Insulin Lispro 100 UNIT/ML INSULN.PEN 10 UNIT SC (04:29)
[2022-08-31 04:41] LABS: Bedside Glucose 369 mg/dL (74-106)
[2022-08-31 06:17] VITALS: BP 137/79; PULSE 74; RESP 20; O2SAT 95
[2022-08-31 06:20] LABS: Bedside Glucose 185 mg/dL (74-106)
== END 2022-08-31 06:18 | disposition home or self-care (01) ==
PROVIDERS: Emergency Provider Emergency Medicine; PCP Family Medicine; Visit Provider Emergency Medicine
DX: E11.65 Type 2 diabetes mellitus with hyperglycemia (principal); I48.91 Unspecified atrial fibrillation; Z68.41 Body mass index [BMI] 40.0-44.9, adult; E66.01 Morbid (severe) obesity due to excess calories; Z80.0 Family history of malignant neoplasm of digestive organs; I10 Essential (primary) hypertension; Z87.891 Personal history of nicotine dependence; E78.5 Hyperlipidemia, unspecified; Z79.01 Long term (current) use of anticoagulants; G47.33 Obstructive sleep apnea (adult) (pediatric); R10.9 Unspecified abdominal pain; R00.0 Tachycardia, unspecified; Z86.73 Personal history of transient ischemic attack (TIA), and cerebral infarction without residual deficits; E86.0 Dehydration; R11.2 Nausea with vomiting, unspecified
CPT/HCPCS: 80048; 81001; 82962; 85025; 93005; 96361; 96374; 99285; J7030; A4216; J2405

== ENCOUNTER → 2023-02-15 | Outpatient (CLI) | payer BC, MEDICAID, SELFPAY ==
[2023-02-15 15:50] LABS: Absolute Lymphocyte Count 1.55 X10^3/uL (0.83-4.51); Absolute Neutrophil Count 4.3 X10^3/uL (2.0-7.7); Basophil# 0.03 X10^3/uL; Basophil% 0.5 % (0-1); Eosinophil# 0.15 X10^3/uL; Eosinophils% 2.3 % (0-5); Hematocrit 39.1 % (37-47); Hemoglobin 11.2 g/dL (12.0-15.0); Lymphocyte # 1.55 X10^3/ul (0.83-4.51); Lymphocyte % 23.9 % (19-41); Mean Corp Hgb Conc 28.6 g/dL (32-36); Mean Corpuscular Hgb 23.1 pg (27.0-32.0); Mean Corpuscular Volume 80.8 fL (81-99); Mean Platelet Vol. 10.1 fl (6.2-12.0); Monocyte# 0.47 X10^3/uL; Monocyte% 7.2 % (0-10); NRBC Flagged by Analyzer 0 % (0-5); Neutrophil # 4.27 X10^3/uL (2.7-7.7); Neutrophil % 65.8 % (47-70); Platelet Count 229 K/mm3 (150-450); RBC Distribution Width CV 18.1 % (11.6-14.6); RBC Distribution Width SD 52.4 fl (35.1-43.9); Red Blood Count 4.84 M/mm3 (4.2-5.4); White Blood Count 6.5 K/mm3 (4.4-11.0)
[2023-02-15 16:21] LABS: Hemoglobin A1c 7.1 % (3.8-5.6)
[2023-02-15 16:40] LABS: ALB/GLOB Ratio 0.6 RATIO (0.9-2.4); AST(SGOT) 20 U/L (15-37); Alanine Aminotransfer ALT/SGPT 23 U/L (13-56); Alkaline Phosphatase 114 U/L (45-117); Anion Gap 5 (5-15); BUN 14 mg/dL (7-18); BUN/Creat Ratio 18.6 RATIO (10-20); Calcium,Total 10.4 mg/dL (8.5-10.1); Chloride 105 mmol/L (98-107); Cholesterol 137 mg/dL (200); Creatinine, Serum 0.75 mg/dL (0.55-1.02); EST Glomerular Filtration Rate 81 mL/min (>60); Est Glom Filt Rate - Afr Amer 98 mL/min (>60); Glucose 128 mg/dL (74-106); High Density Lipoprotein 36 mg/dL; Potassium 4.2 mmol/L (3.5-5.1); Sodium Level 137 mmol/L (136-145); Thyroid Stim Hormone (TSH) 0.77 uIU/mL (0.358-3.74); Triglycerides 127 mg/dL; Very Low Density Lipoprotein 25 mg/dL (5-40)
== END | disposition home or self-care (01) ==
LOC: BFHLAB 13:55
PROVIDERS: PCP Family Medicine; Referring Provider Family Medicine; Visit Provider Family Medicine
DX: E11.65 Type 2 diabetes mellitus with hyperglycemia (principal); I48.91 Unspecified atrial fibrillation; I10 Essential (primary) hypertension; R60.0 Localized edema; R06.00 Dyspnea, unspecified
CPT/HCPCS: 36415; 80053; 80061; 83036; 83880; 84443; 85025

== ENCOUNTER → 2023-05-10 | Outpatient (CLI) | payer MEDICARE, MEDICAID, SELFPAY ==
[2023-05-10 15:28] LABS: Ionized Calcium 5.53 mg/dL (4.36-5.20)
[2023-05-10 15:43] LABS: ALB/GLOB Ratio 0.6 RATIO (0.9-2.4); AST(SGOT) 16 U/L (15-37); Alanine Aminotransfer ALT/SGPT 28 U/L (13-56); Alkaline Phosphatase 126 U/L (45-117); Anion Gap 3 (5-15); BUN 9 mg/dL (7-18); BUN/Creat Ratio 11.6 RATIO (10-20); Calcium,Total 10.3 mg/dL (8.5-10.1); Chloride 105 mmol/L (98-107); Creatinine, Serum 0.78 mg/dL (0.55-1.02); EST Glomerular Filtration Rate 78 mL/min (>60); Est Glom Filt Rate - Afr Amer 95 mL/min (>60); Globulin 4.8 g/dL (2.2-4.2); Glucose 254 mg/dL (74-106); Potassium 4.5 mmol/L (3.5-5.1); Protein, Total 7.8 g/dL (6.4-8.2); Sodium Level 135 mmol/L (136-145)
[2023-05-10 16:00] LABS: Vitamin D,25 Hydroxy 27.6 ng/mL
[2023-05-11 07:35] LABS: PTHIN 97.4 pg/mL (18.4-80.1)
[2023-05-14 13:07] LABS: Vitamin D 1,25-Dihydroxy 22.1 pg/mL (24.8-81.5)
== END | disposition home or self-care (01) ==
LOC: BFHLAB 13:25
PROVIDERS: PCP Family Medicine; Referring Provider Family Medicine; Visit Provider Family Medicine
DX: E83.52 Hypercalcemia (principal); I10 Essential (primary) hypertension
CPT/HCPCS: 36415; 80053; 82306; 82330; 82652; 83970

== ENCOUNTER 2023-08-09 04:04 | Emergency (ER) | payer MEDICARE, MEDICAID, SELFPAY ==
[2023-08-09 04:05] VITALS: BP 114/97; PULSE 90; RESP 15; TEMP 36.3; O2SAT 96; BMI 40.6
--- NOTE | 2023-08-09 04:25 | EX.ED.DYSGE1 ---
HPI History of Present Illness Chief Complaint: Hyperglycemia Informant: patient and EMS Narrative Narrative: 67-year-old female presenting to the emergency department with elevated blood sugar. Patient history includes type 2 diabetes. She states that she was up tonight watching [employer] to [facility], when she decided to check her blood sugar. She states that it was in the 400s. She states it made her feel different. She called EMS who confirmed a blood sugar in the 400s and brought her to the emergency department. She denies any fever vomiting diarrhea URI symptoms dysuria urinary frequency rashes. She cannot really describe that she feels different just not in a good way . She states that her blood sugar typically runs in the 200s. [facility] Medical History Ambulates with cane Atrial fibrillation Diabetes mellitus Difficulty in walking Embolic stroke GERD (gastroesophageal reflux disease) Hyperlipidemia Hypertension Incarcerated ventral hernia Intraventricular hemorrhage Obesity Obesity (BMI 30-39.9) Obstructive sleep apnea Poor historian Recurrent incisional hernia with incarceration Stroke/cerebrovascular accident Home Medications omeprazole 20 mg capsule,delayed release 20 mg PO DAILY GERd 05/29/14 [History Last Taken 02/23/21] amlodipine 10 mg tablet (Norvasc) 10 mg PO DAILY HTN 10/04/16 [History Last Taken 02/23/21] apixaban 5 mg tablet (Eliquis) 5 mg PO BID blood thinner 10/04/16 [History Last Taken 12/26/21] atorvastatin 80 mg tablet 80 mg PO QHS 10/25/16 [Rx Last Taken 02/23/21] lisinopril 40 mg tablet 40 mg PO DAILY 10/25/16 [Rx Last Taken 02/23/21] carvedilol 12.5 mg tablet 12.5 mg PO BID HTN 01/23/21 [History Last Taken 02/23/21] ondansetron 4 mg disintegrating tablet 8 mg (2 x 4 mg) PO Q8H PRN PRN Nausea #12 tabs 02/17/22 [Rx Last Taken Unknown] multivitamin (Daily Multi-Vitamin tablet) 1 tab PO DAILY 03/10/22 [History Last Taken Unknown] dulaglutide 0.75 mg/0.5 mL subcutaneous pen injector (Trulicity) 0.75 mg (0.5 mL) subcut QWEEK #2 mL 01/23/23 [Rx Last Taken Unknown] pioglitazone 15 mg tablet 15 mg PO DAILY #30 tabs 10/09/22 [Rx Last Taken Unknown] glipizide 10 mg tablet 10 mg PO BID DM 08/09/23 [History Last Taken Unknown] Allergy/AdvReac Type Severity Reaction Status Date / Time iodine Allergy Mild Itching Verified 04/09/23 13:01 Penicillins Allergy Mild Itching Verified 04/09/23 13:01 Family History Father CVA (cerebral vascular accident) Mother Diabetes Stomach cancer Other High cholesterol Hypertension Surgical History History of hysterectomy Hx of colonoscopy S/P repair of ventral hernia Status post debridement Social History household members: none Smoking Status: Former smoker alcohol intake: never substance use type: does not use what type of physical activity do you participate in: walking frequency: daily EXAM Physical Exam Const Vital Signs: 08/09/23 04:05 08/09/23 04:09 Temperature 97.3 F L Temperature Source Temporal Pulse Rate 90 Respiratory Rate 15 Respiratory Effort Non-Labored Respiratory Pattern Normal Blood Pressure 114/97 H Blood Pressure Mean 102 Pulse Ox 96 Oxygen Delivery Method Room Air Positive well nourished, well developed and obese General Appearance ED: well developed Nutritional Appearance: obese HEENT Reports normocephalic, head/scalp atraumatic and moist mucous membranes Eyes PERRL and EOMs intact bilaterally Neck no lymphadenopathy, supple and no JVD Resp normal respiratory effort and clear to auscultation bilaterally Cardio regular rate, regular rhythm and no murmurs GI normal to inspection, nondistended, normoactive bowel sounds and non-tender Palpation: soft Back/Spine no CVA tenderness and normal ROM Extremity normal to inspection General Extremety ED: Yes edema General Extremity: edema bilateral lower extremity (mild pitting bilaterally) Neuro oriented x3 and CN's II-XII intact bilaterally Sensorium / Orientation: alert Motor Exam: strength 5/5 throughout Psych mental status grossly normal Mood & Affect: Negative for depressed or tearful Skin no rashes or lesions noted and no wounds MDM MDM MDM Narrative Medical decision making narrative: Basic blood work showed a normal white count 6.2. Urinalysis shows no overt infection. Glucose 451. She received 500 cc of fluids and regular insulin. This lowered her blood sugar down to 265. Patient is feeling better. Patient was advised that when she goes home she should eat something and monitor her blood sugar a few more hours before going to bed. She is due for advised her letsAnother glipizide. Hold on that for a few hours until she is eating and her blood sugars have stabilized. She was advised her blood sugar may return. I do not see an obvious cause for why her blood sugar diane. Not seeing evidence of infection. Patient is comfortable going home. History & Record Review Discussion w/independent historian: EMS personnel and Patient Additional record(s) reviewed:: Prior ED visit and Prior labs Lab Data Attestation: I reviewed the patient's lab results. Labs: Laboratory Results - last 24 hr 08/09/23 08/09/23 08/09/23 04:35 04:39 05:48 WBC 6.2 RBC 5.64 H Hgb 13.6 Hct 45.2 MCV 80.1 L MCH 24.1 L MCHC 30.1 L RDW Std Deviation 55.0 H RDW Coeff of Faby 19.6 H Plt Count 188 MPV 9.7 Immature Gran % (Auto) 0.500 Neut % (Auto) 58.1 Lymph % (Auto) 28.8 [place] % (Auto) 9.4 Eos % (Auto) 2.1 Baso % (Auto) 1.1 H Absolute Neuts (auto) 3.6 Absolute Lymphs (auto) 1.78 Nucleated RBC % 0 Sodium 134 L Potassium 4.3 Chloride 103 Carbon Dioxide 26.0 Anion Gap 5 BUN 13 Creatinine 1.05 H Estim Creat Clear Calc 67.97 Est GFR (MDRD) Af Amer 67 Est GFR (MDRD) Non-Af 55 L BUN/Creatinine Ratio 12.4 Glucose 451 H* Calcium 9.4 Total Bilirubin 0.50 AST 20 ALT 24 Alkaline Phosphatase 126 H Total Protein 7.6 Albumin 3.0 L Globulin 4.6 H Albumin/Globulin Ratio 0.7 L Urine Color Urine Clarity Urine pH Ur Specific [place] Urine Protein Urine Glucose (UA) Urine Ketones Urine Occult Blood Urine Nitrite Urine Bilirubin Urine Urobilinogen Ur Leukocyte Esterase Urine RBC Urine WBC Ur Squamous Epith Cells Urine Bacteria Urine Mucus POC Glucose 404 H 265 H 08/09/23 05:57 WBC RBC Hgb Hct MCV MCH MCHC RDW Std Deviation RDW Coeff of Faby Plt Count MPV Immature Gran % (Auto) Neut % (Auto) Lymph % (Auto) [place] % (Auto) Eos % (Auto) Baso % (Auto) Absolute Neuts (auto) Absolute Lymphs (auto) Nucleated RBC % Sodium Potassium Chloride Carbon Dioxide Anion Gap BUN Creatinine Estim Creat Clear Calc Est GFR (MDRD) Af Amer Est GFR (MDRD) Non-Af BUN/Creatinine Ratio Glucose Calcium Total Bilirubin AST ALT Alkaline Phosphatase Total Protein Albumin Globulin Albumin/Globulin Ratio Urine Color Yellow Urine Clarity Clear Urine pH 6.0 Ur Specific [place] 1.015 Urine Protein Negative Urine Glucose (UA) 1000 H Urine Ketones Negative Urine Occult Blood Negative Urine Nitrite Negative Urine Bilirubin Negative Urine Urobilinogen Normal Ur Leukocyte Esterase 25 H Urine RBC 0 SEEN Urine WBC 0 SEEN Ur Squamous Epith Cells 0-5 SEEN Urine Bacteria 0 SEEN Urine Mucus 0 SEEN POC Glucose Discharge Plan Triage Chief Complaint: Hyperglycemia ED Provider: Meliton Rowley Dx/Rx/DC Orders Clinical Impression: Chronic anticoagulation, Uncontrolled diabetes mellitus Instructions: ED Diabetic Hyperglycemia Prescriptions: No Action multivitamin [Daily Multi-Vitamin] Tablet 1 tab PO DAILY omeprazole 20 MG capsule 20 mg PO DAILY Patient Comments: GASTRIC REFLUX amlodipine [Norvasc] 10 MG tablet 10 mg PO DAILY Patient Comments: high blood pressure Eliquis 5 MG tablet 5 mg PO BID Patient Comments: start eliquis on 10/23/2016 atorvastatin 80 MG tablet 80 mg PO QHS 0RF lisinopril 40 MG tablet 40 mg PO DAILY 0RF carvedilol 12.5 mg tablet 12.5 mg PO BID ondansetron [ondansetron] 4 mg tablet,disintegrating 8 mg PO Q8H PRN PRN (Reason: Nausea) Qty: 12 0RF glipizide 10 mg tablet 10 mg PO BID Trulicity 0.75 mg/0.5 mL pen injector 0.75 mg subcut QWEEK Qty: 2 2RF Rx Instructions: stop Januvia pioglitazone 15 mg tablet 15 mg PO DAILY Qty: 30 3RF Primary Care Provider: Dennis Pelayo Referrals: Dennis Pelayo, [Primary Care Provider] - As soon as possible Disposition Disposition: Home, Self Care
--- OUTSIDE RECORDS SUMMARY | 2023-08-09 04:30 | XMS RPT_ITS | CCD ---
Author Name Unknown Address [address] [place] [id number] Organization [facility] Results Test Name Value Interpretation Reference Range Facil ity Summary Purpose Family History No Family History Records FoundNo Family History Records FoundNo Family History Records Found Advance Directives No Advanced Directives Records FoundNo Advanced Directives Records FoundNo Advanced Directives Records Found Procedure Findings Note HNO ID: [id number] Author: Flavio Draper Service: General Surgery Author Type: Physician Type: Brief Op Note Filed: 05/29/2019 10:53 AM Note Text: BRIEF OPERATIVE / PROCEDURE NOTE LOG ID: [id number] SURGERY/PROCEDURE DATE: 05/29/2019 INCISION/PROCEDURE START TIME: 10:07 AM INCISION CLOSE/PROCEDURE END TIME: SURGEON(S)/PROCEDURALIST(S) AND BRIDGE INSTRUCTOR(S): Surgeon(s) and Role: * Vicky Draper - Primary Physician Small Products Assembler: Clemencia Dockery (Pa) SURGERY/PROCEDURE(S): incisional hernia repair ANESTHESIA: General FINDINGS: 8cm defect in ruq at old ileostomy site ESTIMATED BLOOD LOSS: minimal SPECIMENS: None COMPLICATIONS: None PRE-OP/PRE-PROCEDURE DIAGNOSIS: incisional hernia POST-OP/POST-PROCEDURE DIAGNOSIS: SAME Dictated # [id number] SIGNATURE: Vicky Draper MD PATIENT NAME: Zoie De aL Paz DATE: May 29, 2019 TIME: 10:50 AM PAGER/CONTACT #: Additional Source Comments INFORMATION SOURCE (unrecogn ized section and content) DATE CREATED AUTHOR AUTHOR'S ORGANIZ ATION 06/02/2019 [facility] DATE CREATED AUTHOR AUTHOR'S ORGANIZ ATION 08/23/2019 [facility] FOR RECORDS PERTAINING TO PATIENTS WHO ARE OR HAVE BEEN ENROLLED IN A CHEMICAL DEPENDENCY/SUBSTANCEABUSE PROGRAM, SOME INFORMATION MAY BE OMITTED. This clinical summary was aggregated from multiple sources. Caution should be exercised in using it in the provision of clinical care. This summary normalizes information from multiple sources, and as a consequence, information in this document may materially change the coding, format and clinical context of patient data. In addition, data may be omitted in some cases. CLINICAL DECISIONS SHOULD BE BASED ON THE PRIMARY CLINICAL RECORDS. [facility]. provides no warranty or guarantee of the accuracy or completeness of information in this document.
[2023-08-09 04:45] LABS: Absolute Lymphocyte Count 1.78 X10^3/uL (0.83-4.51); Absolute Neutrophil Count 3.6 X10^3/uL (2.0-7.7); Basophil# 0.07 X10^3/uL; Basophil% 1.1 % (0-1); Eosinophil# 0.13 X10^3/uL; Eosinophils% 2.1 % (0-5); Hematocrit 45.2 % (37-47); Hemoglobin 13.6 g/dL (12.0-15.0); Lymphocyte # 1.78 X10^3/ul (0.83-4.51); Lymphocyte % 28.8 % (19-41); Mean Corp Hgb Conc 30.1 g/dL (32-36); Mean Corpuscular Hgb 24.1 pg (27.0-32.0); Mean Corpuscular Volume 80.1 fL (81-99); Mean Platelet Vol. 9.7 fl (6.2-12.0); Monocyte# 0.58 X10^3/uL; Monocyte% 9.4 % (0-10); NRBC Flagged by Analyzer 0 % (0-5); Neutrophil % 58.1 % (47-70); Platelet Count 188 K/mm3 (150-450); RBC Distribution Width CV 19.6 % (11.6-14.6); Red Blood Count 5.64 M/mm3 (4.2-5.4); White Blood Count 6.2 K/mm3 (4.4-11.0)
[2023-08-09] MEDS: 0.9% Normal Saline (500mL Bag) 500 ML 1000 ML IV (04:48)
[2023-08-09 05:08] LABS: Bedside Glucose 404 mg/dL (74-106)
[2023-08-09 05:19] LABS: ALB/GLOB Ratio 0.7 RATIO (0.9-2.4); AST(SGOT) 20 U/L (15-37); Alanine Aminotransfer ALT/SGPT 24 U/L (13-56); Alkaline Phosphatase 126 U/L (45-117); Anion Gap 5 (5-15); BUN 13 mg/dL (7-18); BUN/Creat Ratio 12.4 RATIO (10-20); Calcium,Total 9.4 mg/dL (8.5-10.1); Chloride 103 mmol/L (98-107); Creatinine, Serum 1.05 mg/dL (0.55-1.02); EST Glomerular Filtration Rate 55 mL/min (>60); Est Glom Filt Rate - Afr Amer 67 mL/min (>60); Estimated Creatinine Clearance 67.97 ml/min; Globulin 4.6 g/dL (2.2-4.2); Glucose 451 mg/dL (74-106); Potassium 4.3 mmol/L (3.5-5.1); Protein, Total 7.6 g/dL (6.4-8.2); Sodium Level 134 mmol/L (136-145)
[2023-08-09 06:02] LABS: Bacteria 0 SEEN /hpf (None Seen); Mucous, Urine 0 SEEN /hpf (<or=2+); Red Blood Cells-Urine 0 SEEN /hpf (0-5); White Blood Cells 0 SEEN /hpf (0-5)
[2023-08-09 06:06] LABS: Bedside Glucose 265 mg/dL (74-106)
[2023-08-09 06:12] LABS: Color, Urine Yellow (Yellow); Glucose, Dipstick 1000 mg/dl (Normal); Ketone-Dipstick Negative (Negative); Leukocyte Esterase-Dipstick 25 /ul (Negative); Nitrite-Dipstick Negative (Negative); Occult Blood-Urine Negative /ul (Negative); Protein-Dipstick Negative (Negative); Specific Gravity, Urine 1.015 (1.002-1.030); Urine Bilirubin Dipstick Negative (Negative); Urine Clarity Clear (Clear); Urine Urobilinogen Normal (Normal)
[2023-08-09 06:24] LABS: Squamous Epithelial Cells - UA 0-5 SEEN /hpf (5-10)
[2023-08-09 07:40] VITALS: BP 126/73; PULSE 85; RESP 16; O2SAT 94
[2023-08-09 07:41] VITALS: RESP 16
[2023-08-09 07:57] LABS: Bedside Glucose 230 mg/dL (74-106)
[2023-08-09 09:40] LABS: Hemoglobin A1c 11.2 % (3.8-5.6)
== END 2023-08-09 07:41 | disposition home or self-care (01) ==
PROVIDERS: Emergency Provider Emergency Medicine; PCP Family Medicine; Visit Provider Emergency Medicine
DX: E11.9 Type 2 diabetes mellitus without complications (principal); I48.91 Unspecified atrial fibrillation; Z87.891 Personal history of nicotine dependence; Z79.01 Long term (current) use of anticoagulants; E78.5 Hyperlipidemia, unspecified; I10 Essential (primary) hypertension; Z86.73 Personal history of transient ischemic attack (TIA), and cerebral infarction without residual deficits; K21.9 Gastro-esophageal reflux disease without esophagitis; Z79.899 Other long term (current) drug therapy; Z79.85 Long-term (current) use of injectable non-insulin antidiabetic drugs; Z90.710 Acquired absence of both cervix and uterus
CPT/HCPCS: 80053; 81001; 82962; 83036; 85025; 96361; 96374; 99282; J7040; A4216

== ENCOUNTER → 2023-09-04 | Outpatient (CLI) | payer MEDICARE, MEDICAID, SELFPAY ==
[2023-09-04 17:35] LABS: Absolute Lymphocyte Count 1.55 X10^3/uL (0.83-4.51); Absolute Neutrophil Count 5.8 X10^3/uL (2.0-7.7); Basophil# 0.04 X10^3/uL; Basophil% 0.5 % (0-1); Eosinophil# 0.13 X10^3/uL; Eosinophils% 1.6 % (0-5); Hematocrit 45.6 % (37-47); Hemoglobin 13.7 g/dL (12.0-15.0); Lymphocyte # 1.55 X10^3/ul (0.83-4.51); Mean Corpuscular Hgb 24.6 pg (27.0-32.0); Mean Platelet Vol. 9.6 fl (6.2-12.0); Monocyte# 0.58 X10^3/uL; Monocyte% 7.1 % (0-10); NRBC Flagged by Analyzer 0 % (0-5); Neutrophil # 5.82 X10^3/uL (2.7-7.7); Neutrophil % 71.3 % (47-70); Platelet Count 211 K/mm3 (150-450); RBC Distribution Width CV 19.2 % (11.6-14.6); RBC Distribution Width SD 55.9 fl (35.1-43.9); Red Blood Count 5.56 M/mm3 (4.2-5.4); White Blood Count 8.2 K/mm3 (4.4-11.0)
[2023-09-04 17:50] LABS: ALB/GLOB Ratio 0.7 RATIO (0.9-2.4); AST(SGOT) 14 U/L (15-37); Alanine Aminotransfer ALT/SGPT 22 U/L (13-56); Albumin, Serum 3.3 g/dL (3.2-5.0); Alkaline Phosphatase 125 U/L (45-117); Anion Gap 1 (5-15); BUN 20 mg/dL (7-18); BUN/Creat Ratio 18.7 RATIO (10-20); Calcium,Total 10.5 mg/dL (8.5-10.1); Chloride 99 mmol/L (98-107); Creatinine, Serum 1.07 mg/dL (0.55-1.02); EST Glomerular Filtration Rate 54 mL/min (>60); Est Glom Filt Rate - Afr Amer 65 mL/min (>60); Globulin 4.6 g/dL (2.2-4.2); Glucose 369 mg/dL (74-106); Potassium 4.7 mmol/L (3.5-5.1); Protein, Total 7.9 g/dL (6.4-8.2); Sodium Level 131 mmol/L (136-145)
[2023-09-04 18:15] LABS: PTHIN 125.1 pg/mL (18.4-80.1)
[2023-09-06 12:09] LABS: C-Peptide 7.6 ng/mL (1.1-4.4)
== END | disposition home or self-care (01) ==
PROVIDERS: PCP Family Medicine; Visit Provider Family Medicine
DX: E11.65 Type 2 diabetes mellitus with hyperglycemia (principal); E83.52 Hypercalcemia; R53.83 Other fatigue
CPT/HCPCS: 36415; 80053; 82533; 83970; 84681; 85025

== ENCOUNTER 2023-09-29 18:40 | Observation (INO) | payer MEDICARE, MEDICAID, SELFPAY ==
[2023-09-29 18:41] VITALS: BP 144/68; PULSE 110; RESP 18; TEMP 36.4; O2SAT 95; BMI 38.6
--- NOTE | 2023-09-29 18:53 | ED.RN ---
pt covered in vomit and dried stool. cleaned up
--- NOTE | 2023-09-29 19:28 | EDS_ITS ---
HPI HPI - GI History of Present Illness Chief Complaint: Nausea/Vomiting Narrative Narrative: 67-year-old female presenting nausea, vomiting, diarrhea that started this morning. Yesterday she felt well. She states she went to a mental health visit yesterday but does not know that she has any sick contacts. She has not a fever but has chills and bodyaches. Patient not have any abdominal pain. She is coughing or short of breath. No urinary or vaginal complaints. She states her blood sugar was about 170 at home. This is good for her. [facility] Medical History Ambulates with cane Atrial fibrillation Diabetes mellitus Difficulty in walking Embolic stroke GERD (gastroesophageal reflux disease) Hyperlipidemia Hypertension Incarcerated ventral hernia Intraventricular hemorrhage Obesity Obesity (BMI 30-39.9) Obstructive sleep apnea Poor historian Recurrent incisional hernia with incarceration Stroke/cerebrovascular accident Home Medications omeprazole 20 mg capsule,delayed release 20 mg PO DAILY GERd 05/29/14 [History Last Taken 02/23/21] amlodipine 10 mg tablet (Norvasc) 10 mg PO DAILY HTN 10/04/16 [History Last Taken 02/23/21] apixaban 5 mg tablet (Eliquis) 5 mg PO BID blood thinner 10/04/16 [History Last Taken 12/26/21] atorvastatin 80 mg tablet 80 mg PO QHS 10/25/16 [Rx Last Taken 02/23/21] lisinopril 40 mg tablet 40 mg PO DAILY 10/25/16 [Rx Last Taken 02/23/21] carvedilol 12.5 mg tablet 12.5 mg PO BID HTN 01/23/21 [History Last Taken 02/23/21] ondansetron 4 mg disintegrating tablet 8 mg (2 x 4 mg) PO Q8H PRN PRN Nausea #12 tabs 02/17/22 [Rx Last Taken Unknown] multivitamin (Daily Multi-Vitamin tablet) 1 tab PO DAILY 03/10/22 [History Last Taken Unknown] dulaglutide 0.75 mg/0.5 mL subcutaneous pen injector (Trulicity) 0.75 mg (0.5 mL) subcut QWEEK #2 mL 08/21/22 [Rx Last Taken Unknown] pioglitazone 15 mg tablet 15 mg PO DAILY #30 tabs 10/09/22 [Rx Last Taken Unknown] glipizide 10 mg tablet 10 mg PO BID DM 08/09/23 [History Last Taken Unknown] Allergy/AdvReac Type Severity Reaction Status Date / Time iodine Allergy Mild Itching Verified 04/09/23 13:01 Penicillins Allergy Mild Itching Verified 04/09/23 13:01 Family History Father CVA (cerebral vascular accident) Mother Diabetes Stomach cancer Other High cholesterol Hypertension Surgical History History of hysterectomy Hx of colonoscopy S/P repair of ventral hernia Status post debridement Social History household members: none Smoking Status: Former smoker alcohol intake: never substance use type: does not use what type of physical activity do you participate in: walking frequency: daily ROS ROS ED Constitutional Constitutional ED: Reports chills; Denies fever(s) or sweats Eyes Eyes: Denies blurry vision or change in vision ENT ENT ED: Denies ear pain or sore throat Cardiovascular Cardiovascular: Denies chest pain, palpitations or racing heartbeat Respiratory/Chest Respiratory/Chest: Denies cough, dyspnea or sputum Gastrointestinal Gastrointestinal: Reports diarrhea, nausea and vomiting; Denies abdominal pain or constipation Genitourinary Genitourinary ED: Denies dysuria, hematuria or urinary frequency Musculoskeletal Musculoskeletal: Reports myalgias; Denies arthralgias or neck pain Integumentary Denies abscess, Abrasions or rash Neurologic Neurologic: Denies headache(s), paresthesias or weakness Psychiatric Psychiatric: Denies anxiety, depression, suicidal ideation or suicidal thoughts Endocrine Endocrinology: Denies polydipsia or polyuria EXAM Physical Exam Const Vital Signs: 09/29/23 18:41 09/29/23 20:41 09/29/23 21:29 Temperature 97.5 F L 99.3 F H Temperature Source Temporal Oral Pulse Rate 110 H 71 134 H Respiratory Rate 18 18 18 Blood Pressure 144/68 H 94/55 L 85/59 L Blood Pressure Mean 93 68 67 Pulse Ox 95 91 92 Oxygen Delivery Method Room Air Room Air Room Air 09/29/23 23:00 09/29/23 23:18 Temperature 99.3 F H Temperature Source Oral Pulse Rate 128 H 128 H Respiratory Rate 20 H 23 H Blood Pressure 85/52 L 121/48 H Blood Pressure Mean 63 72 Pulse Ox 92 92 Oxygen Delivery Method Room Air Room Air Positive well nourished and obese General Appearance ED: NAD Nutritional Appearance: obese HEENT Reports moist mucous membranes normocephalic and atraumatic Eyes PERRL and EOMs intact bilaterally Resp normal respiratory effort and clear to auscultation bilaterally Auscultation: Negative for rales, rhonchi or wheezes Cardio regular rate and regular rhythm GI non-tender and non-distended Neuro CN's II-XII intact bilaterally and moves all extremities Sensorium / Orientation: alert Motor Exam: strength 5/5 throughout Psych mental status grossly normal Skin no wounds MDM MDM MDM Narrative Medical decision making narrative: Patient presenting with nausea, vomiting, diarrhea. Differential includes COVID, influenza, RSV, dehydration, anemia, electrolyte abnormalities, gastritis, pancreatitis, UTI. Lipase to assess for pancreatitis. CBC will be obtained to assess white blood cell count, hemoglobin, platelets. CMP to assess liver function, renal function electrolytes. Urinalysis to assess for UTI. COVID, influenza, RSV swab will be obtained. Patient given Zofran 4 mg IV and a liter normal saline. CBC shows white blood cell count of 14.3. Hemoglobin 14.9. Platelets are 236. Creatinine is elevated at 1.62 today with a baseline of about 1.7. Patient was given initial 2 L of fluid and at 1 point she became hypotensive. She has been tachycardic here today. We did obtain an EKG which on my interpretation shows a sinus tachycardia without ischemia or ectopy. Obtain CT abdomen pelvis without contrast due to renal injury to make sure there was anything acute and this was negative. Patient's blood pressure has responded and her blood pressure is now 121/48. She still little tachycardic. She still having multiple episodes of diarrhea in the room. She is too weak to go home and take care of herself therefore I will speak to the hospitalist for admission. Impression: 1. Gastroenteritis 2. Dehydration 3. Tachycardia Lab Data Labs: Laboratory Results - last 24 hr 09/29/23 21:06 WBC 14.3 H RBC 6.06 H Hgb 14.9 Hct 48.4 H MCV 79.9 L MCH 24.6 L MCHC 30.8 L RDW Std Deviation 53.3 H RDW Coeff of Faby 19.7 H Plt Count 236 MPV 9.3 Immature Gran % (Auto) 0.400 Neut % (Auto) 85.9 H Lymph % (Auto) 4.3 L [place]ier % (Auto) 8.9 Eos % (Auto) 0.1 Baso % (Auto) 0.4 Absolute Neuts (auto) 12.2 H Absolute Lymphs (auto) 0.61 L Nucleated RBC % 0 Sodium 139 Potassium 4.5 Chloride 108 H Carbon Dioxide 25.0 Anion Gap 6 BUN 36 H Creatinine 1.62 H Estim Creat Clear Calc 42.86 Est GFR (MDRD) Af Amer 41 L Est GFR (MDRD) Non-Af 34 L BUN/Creatinine Ratio 22.2 H Glucose 195 H Calcium 10.8 H Total Bilirubin 0.60 AST 25 ALT 27 Alkaline Phosphatase 124 H Total Protein 8.2 Albumin 3.2 Globulin 5.0 H Albumin/Globulin Ratio 0.6 L Lipase 41 Radiography Diagnostic Testing: Clinical Impression(s) from Imaging Studies Abdomen/Pelvis CT 09/29/23 22:15 IMPRESSION: 1. Basilar atelectasis greater on the RIGHT than LEFT without airspace consolidation or effusion. 2. No masses or bowel obstruction. Nonspecific fluid-filled segments of small bowel are present. Mild enteritis is a consideration. 3. Diverticulosis without diverticulitis. The appendix is not positively identified however no evidence of appendicitis. 4. Stable appearance of a RIGHT renal exophytic cyst. No evidence of obstructive uropathy. 5. No evidence of cholelithiasis. Electronically Signed: Chet Bermudez MD at 23:02 EST , Discharge Plan Triage Chief Complaint: Nausea/Vomiting ED Provider: Horace Anton Dx/Rx/DC Orders Prescriptions: No Action multivitamin [Daily Multi-Vitamin] Tablet 1 tab PO DAILY omeprazole 20 MG capsule 20 mg PO DAILY Patient Comments: GASTRIC REFLUX amlodipine [Norvasc] 10 MG tablet 10 mg PO DAILY Patient Comments: high blood pressure Eliquis 5 MG tablet 5 mg PO BID Patient Comments: start eliquis on 10/23/2016 atorvastatin 80 MG tablet 80 mg PO QHS 0RF lisinopril 40 MG tablet 40 mg PO DAILY 0RF carvedilol 12.5 mg tablet 12.5 mg PO BID ondansetron [ondansetron] 4 mg tablet,disintegrating 8 mg PO Q8H PRN PRN (Reason: Nausea) Qty: 12 0RF glipizide 10 mg tablet 10 mg PO BID Trulicity 0.75 mg/0.5 mL pen injector 0.75 mg subcut QWEEK Qty: 2 2RF Rx Instructions: stop Januvia pioglitazone 15 mg tablet 15 mg PO DAILY Qty: 30 3RF Primary Care Provider: Dennis Pelayo Referrals: Dennis Pelayo DO [Primary Care Provider] -
[2023-09-29] MEDS: Ondansetron 4 MG/2 ML Vial IV (20:34)
[2023-09-29] MEDS: 0.9% Normal Saline (1000mL) 1,000 ML 1000 ML IV (20:34)
[2023-09-29 20:41] VITALS: BP 94/55; PULSE 71; RESP 18; O2SAT 91
[2023-09-29 21:13] LABS: Absolute Lymphocyte Count 0.61 X10^3/uL (0.83-4.51); Absolute Neutrophil Count 12.2 X10^3/uL (2.0-7.7); Basophil# 0.06 X10^3/uL; Basophil% 0.4 % (0-1); Eosinophil# 0.02 X10^3/uL; Eosinophils% 0.1 % (0-5); Hematocrit 48.4 % (37-47); Hemoglobin 14.9 g/dL (12.0-15.0); Lymphocyte # 0.61 X10^3/ul (0.83-4.51); Lymphocyte % 4.3 % (19-41); Mean Corp Hgb Conc 30.8 g/dL (32-36); Mean Corpuscular Hgb 24.6 pg (27.0-32.0); Mean Corpuscular Volume 79.9 fL (81-99); Mean Platelet Vol. 9.3 fl (6.2-12.0); Monocyte# 1.27 X10^3/uL; Monocyte% 8.9 % (0-10); NRBC Flagged by Analyzer 0 % (0-5); Neutrophil # 12.24 X10^3/uL (2.7-7.7); Neutrophil % 85.9 % (47-70); Platelet Count 236 K/mm3 (150-450); RBC Distribution Width CV 19.7 % (11.6-14.6); RBC Distribution Width SD 53.3 fl (35.1-43.9); Red Blood Count 6.06 M/mm3 (4.2-5.4); White Blood Count 14.3 K/mm3 (4.4-11.0)
[2023-09-29 21:29] VITALS: BP 85/59; PULSE 134; RESP 18; TEMP 37.4; O2SAT 92
[2023-09-29 21:30] LABS: ALB/GLOB Ratio 0.6 RATIO (0.9-2.4); AST(SGOT) 25 U/L (15-37); Alanine Aminotransfer ALT/SGPT 27 U/L (13-56); Albumin, Serum 3.2 g/dL (3.2-5.0); Alkaline Phosphatase 124 U/L (45-117); Anion Gap 6 (5-15); BUN 36 mg/dL (7-18); BUN/Creat Ratio 22.2 RATIO (10-20); Calcium,Total 10.8 mg/dL (8.5-10.1); Chloride 108 mmol/L (98-107); Creatinine, Serum 1.62 mg/dL (0.55-1.02); EST Glomerular Filtration Rate 34 mL/min (>60); Est Glom Filt Rate - Afr Amer 41 mL/min (>60); Estimated Creatinine Clearance 42.86 ml/min; Glucose 195 mg/dL (74-106); Lipase 41 U/L (13-75); Potassium 4.5 mmol/L (3.5-5.1); Protein, Total 8.2 g/dL (6.4-8.2); Sodium Level 139 mmol/L (136-145)
--- NOTE | 2023-09-29 21:37 | EKG12_ITS ---
Test Reason : DYSRHYTHMIA Blood Pressure : / mmHG Vent. Rate : 133 BPM Atrial Rate : 000 BPM P-R Int : 000 ms QRS Dur : 060 ms QT Int : 374 ms P-R-T Axes : 000 047 075 degrees QTc Int : 556 ms Critical Test Result: Long QTc Supraventricular tachycardia Nonspecific ST and T wave abnormality Abnormal ECG Confirmed by Ed Yan ([id number]), clinical editor REGAN ANDERSON ([id number]) on 10/01/2023 10:30:56 AM Referred By: Confirmed By:Ed Yan
[2023-09-29] MEDS: 0.9% Normal Saline (1000mL) 1,000 ML 999 ML IV ×2 (22:00→23:30)
--- NOTE | 2023-09-29 22:15 | CT_ITS ---
INDICATION: abdominal pain EXAMINATION: CT ABDOMEN AND PELVIS WITHOUT CONTRAST - CT Abdomen And Pelvis W/O Contrast Injection TECHNIQUE: Helically acquired images were obtained of the abdomen and pelvis without oral or IV contrast. A radiation dose optimization technique was used for this scan. IV Contrast dosage and agent: None. Oral contrast: None. RADIATION DOSAGE (If Supplied By Facility): CTDIvol = ( 21.53 ) mGy, DLP = ( 2595.94 ) mGycm COMPARISON: 04/29/2022 FINDINGS: LOWER CHEST: Mild basilar atelectasis, no consolidation, no effusion. No cardiomegaly or pericardial effusion. LIVER: The liver has normal configuration and density given the limitation of noncontrast exam. No focal mass. GALLBLADDER AND BILIARY TREE: No calcified gallstones. No gallbladder distension or wall edema. No intra- or extrahepatic biliary ductal dilation. PANCREAS: No focal cystic or solid mass. SPLEEN: Normal size without focal cystic or solid mass. ADRENAL GLANDS: No nodules. KIDNEYS AND URETERS: Kidneys are unchanged configuration, exophytic cyst arising from the lower pole of the RIGHT kidney measures 3.5 x 4.1 cm. No evidence of calcifications or obstructive uropathy. No hydronephrosis. PERITONEUM: No ascites or free air. No other fluid collection. BOWEL: Little segments of fluid-filled minimally distended small bowel, pattern is unchanged from prior exam however. No bowel obstruction. No masses. No focal inflammatory change. LYMPH NODES: No enlarged mesenteric or retroperitoneal lymph nodes. VESSELS: Diffuse aortic calcifications without aneurysmal dilatation. URINARY BLADDER: Unremarkable. REPRODUCTIVE ORGANS: Postop change of prior hysterectomy. No pelvic masses or abnormal fluid collections. ABDOMINAL WALL: No discrete abdominal or pelvic wall hernia. BONES: Diffuse lumbar spondylosis I, no acute fractures or acute bony changes. No canal stenosis. CT/Abdomen/Pelvis without Cont IMPRESSION: 1. Basilar atelectasis greater on the RIGHT than LEFT without airspace consolidation or effusion. 2. No masses or bowel obstruction. Nonspecific fluid-filled segments of small bowel are present. Mild enteritis is a consideration. 3. Diverticulosis without diverticulitis. The appendix is not positively identified however no evidence of appendicitis. 4. Stable appearance of a RIGHT renal exophytic cyst. No evidence of obstructive uropathy. 5. No evidence of cholelithiasis. Electronically Signed: Chet Bermudez MD at 23:02 EST ,
[2023-09-29 23:00] VITALS: BP 85/52; PULSE 128; RESP 20; TEMP 37.4; O2SAT 92
[2023-09-29 23:18] VITALS: BP 121/48; PULSE 128; RESP 23; O2SAT 92
--- NOTE | 2023-09-29 23:30 | HP.PCM.HOS_ITS ---
[facility] - General General Date of Admission: 09/29/23 Date of Service: 09/29/23 Chief Complaint: Nausea and Vomiting. HPI Narrative ZOIE DE LA PAZ, is a 67 F with a past medical history of essential hypertension, hyperlipidemia, obesity; with BMI of 38.6 this admission, FLOR, DM-2; of unknown control, history of Atrial Fibrillation; on apixaban, history of embolic CVA, history of intraventricular hemorrhage, chronic ambulatory dysfunction requiring the use of a cane, history of ventral hernia repair (2020), history of hysterectomy, GERD and OA who presents to [facility] ER complaining of nausea and vomiting. Ms. De La Paz reports her symptoms began earlier today with the abrupt-onset of nausea with frequent bilious emesis f ollowed by voluminous non-bloody diarrhea. She endorses a related history of chills and body aches but she denies fever, abdominal pain, SOB, cough, dysuria, vaginal complaints, known sick contacts or recent significant travel. She stated her blood glucose averages ~170 mg/dL at home. In the ER she was diagnosed with Acute Viral Gastroenteritis causing intractable nausea, vomiting and diarrhea with Leukocytosis of 14.3 present on admission complicated by laboratory evidence of Dehydration; evidenced by elevated BUN/creatinine ratio of 22.2 present on admission with suspected JEANNE; with elevated creatinine of 1.62 mg/dL present on admission (up from her baseline of 1.07 mg/dL last month) with mild Hypercalcemia of 10.8 mg/dL present on admission and she was then admitted to the general medical floor under observation status for ongoing care for a stay that is expected to be less than 48 hours. [facility] Medical History Ambulates with cane Atrial fibrillation Diabetes mellitus Difficulty in walking Embolic stroke GERD (gastroesophageal reflux disease) Hyperlipidemia Hypertension Incarcerated ventral hernia Intraventricular hemorrhage Obesity Obesity (BMI 30-39.9) Obstructive sleep apnea Poor historian Recurrent incisional hernia with incarceration Stroke/cerebrovascular accident Home Medications omeprazole 20 mg capsule,delayed release 20 mg PO DAILY GERd 05/29/14 [History Last Taken 02/23/21] amlodipine 10 mg tablet (Norvasc) 10 mg PO DAILY HTN 10/04/16 [History Last Taken 02/23/21] apixaban 5 mg tablet (Eliquis) 5 mg PO BID blood thinner 10/04/16 [History Last Taken 12/26/21] atorvastatin 80 mg tablet 80 mg PO QHS 10/25/16 [Rx Last Taken 02/23/21] lisinopril 40 mg tablet 40 mg PO DAILY 10/25/16 [Rx Last Taken 02/23/21] carvedilol 12.5 mg tablet 12.5 mg PO BID HTN 01/23/21 [History Last Taken 02/23/21] ondansetron 4 mg disintegrating tablet 8 mg (2 x 4 mg) PO Q8H PRN PRN Nausea #12 tabs 02/17/22 [Rx Last Taken Unknown] multivitamin (Daily Multi-Vitamin tablet) 1 tab PO DAILY 03/10/22 [History Last Taken Unknown] dulaglutide 0.75 mg/0.5 mL subcutaneous pen injector (Trulicity) 0.75 mg (0.5 mL) subcut QWEEK #2 mL 08/21/22 [Rx Last Taken Unknown] pioglitazone 15 mg tablet 15 mg PO DAILY #30 tabs 10/09/22 [Rx Last Taken Unknown] glipizide 10 mg tablet 10 mg PO BID DM 08/09/23 [History Last Taken Unknown] cholecalciferol (vitamin D3) 50 mcg (2,000 unit) capsule 50 mcg PO DAILY vits 09/30/23 [History Last Taken Unknown] Allergy/AdvReac Type Severity Reaction Status Date / Time iodine Allergy Mild Itching Verified 04/09/23 13:01 Penicillins Allergy Mild Itching Verified 04/09/23 13:01 Family History Father CVA (cerebral vascular accident) Mother Diabetes Stomach cancer Other High cholesterol Hypertension Surgical History History of hysterectomy Hx of colonoscopy S/P repair of ventral hernia Status post debridement Social History household members: none Smoking Status: Former smoker alcohol intake: never substance use type: does not use what type of physical activity do you participate in: walking frequency: daily ROS ROS Narrative Review of systems: Constitutional: Patient denies fever or chills. Eyes: Patient denies blurry vision or discharge from eyes. ENT: Patient denies runny nose, sore throat or ear pain. Resp: Patient denies SOB or cough. GI: Patient admits to nausea, vomiting and diarrhea as per HPI. : Patient dysuria, hematuria or urinary frequency. MSK: Patient admits to myalgias and generalized weakness. Skin: Patient denies rash. Neuro: Patient denies headache, paresthesias or focal neurologic weakness. Psychiatric: Patient denies uncontrolled depression or anxiety. Endocrinologic: Patient denies polyuria, polydipsia and polyphagia. Total time: Approximately 55 minutes. Vital Signs Vital Signs Vital Signs: 09/29/23 18:41 09/29/23 20:41 09/29/23 21:29 Temperature 97.5 F L 99.3 F H Temperature Source Temporal Oral Pulse Rate 110 H 71 134 H Respiratory Rate 18 18 18 Blood Pressure 144/68 H 94/55 L 85/59 L Blood Pressure Mean 93 68 67 Pulse Ox 95 91 92 Oxygen Delivery Method Room Air Room Air Room Air 09/29/23 23:00 09/29/23 23:18 Temperature 99.3 F H Temperature Source Oral Pulse Rate 128 H 128 H Respiratory Rate 20 H 23 H Blood Pressure 85/52 L 121/48 H Blood Pressure Mean 63 72 Pulse Ox 92 92 Oxygen Delivery Method Room Air Room Air Weight Weight: 246 lb 7.629 oz Body Mass Index (BMI) 38.6 Physical Exam Const alert, oriented x3 and no apparent distress General Appearance: cooperative HEENT normocephalic, head/scalp atraumatic and hearing grossly normal bilaterally HEENT Narrative: Mucous membranes dry. Eyes PERRL and EOMs intact bilaterally Neck no lymphadenopathy and supple Resp normal respiratory effort, no retractions, no use of accessory muscles and clear to auscultation bilaterally Cardio regular rate and regular rhythm GI normal to inspection, nondistended, normoactive bowel sounds, soft to palpation, non-tender and non-distended Extremity normal to inspection and full ROM Skin Skin Narrative: Patient has no evidence of rash. Neuro oriented x3, CN's II-XII intact bilaterally, moves all extremities and no focal motor deficits Sensorium / Orientation: awake, alert, oriented to person, oriented to place and oriented to time Speech: speech normal Psych affect normal Results Medical Records Data Attestation: I reviewed the patient's medical records Lab / Micro Data Attestation: I reviewed the patient's lab results. 09/29/23 21:06 09/29/23 21:06 Labs: Laboratory Results - last 24 hr 09/29/23 21:06: WBC 14.3 H, RBC 6.06 H, Hgb 14.9, Hct 48.4 H, MCV 79.9 L, MCH 24.6 L, MCHC 30.8 L, RDW Std Deviation 53.3 H, RDW Coeff of Faby 19.7 H, Plt Count 236, MPV 9.3, Immature Gran % (Auto) 0.400, Neut % (Auto) 85.9 H, Lymph % (Auto) 4.3 L, [place]ney % (Auto) 8.9, Eos % (Auto) 0.1, Baso % (Auto) 0.4, Absolute Neuts (auto) 12.2 H, Absolute Lymphs (auto) 0.61 L, Nucleated RBC % 0, Sodium 139, Potassium 4.5, Chloride 108 H, Carbon Dioxide 25.0, Anion Gap 6, BUN 36 H, Creatinine 1.62 H, Estim Creat Clear Calc 42.86, Est GFR (MDRD) Af Amer 41 L, Est GFR (MDRD) Non-Af 34 L, BUN/Creatinine Ratio 22.2 H, Glucose 195 H, Calcium 10.8 H, Total Bilirubin 0.60, AST 25, ALT 27, Alkaline Phosphatase 124 H, Total Protein 8.2, Albumin 3.2, Globulin 5.0 H, Albumin/Globulin Ratio 0.6 L, Lipase 41 Micro: Microbiology 09/29/23 20:35 Mucosa - Nose SARS-CoV-2, Influenza & RSV (PCR) - Final Imaging Radiology Impression Abdomen/Pelvis CT 09/29/23 22:15 IMPRESSION: 1. Basilar atelectasis greater on the RIGHT than LEFT without airspace consolidation or effusion. 2. No masses or bowel obstruction. Nonspecific fluid-filled segments of small bowel are present. Mild enteritis is a consideration. 3. Diverticulosis without diverticulitis. The appendix is not positively identified however no evidence of appendicitis. 4. Stable appearance of a RIGHT renal exophytic cyst. No evidence of obstructive uropathy. 5. No evidence of cholelithiasis. Electronically Signed: Chet Bermudez MD at 23:02 EST , Assessment & Plan Assessment/Plan (1) Viral gastroenteritis: (2) Nausea vomiting and diarrhea: (3) Dehydration: (4) JEANNE (acute kidney injury): (5) Hypercalcemia: PLAN: Plan 1. Acute Viral Gastroenteritis causing intractable nausea, vomiting and diarrhea with Leukocytosis of 14.3 present on admission - Admit to general medical floor under observation status on enteric precautions. Give IV Zofran prn for nausea. Give Imodium prn for diarrhea once C. difficile colitis ruled out. 2. Dehydration; evidenced by elevated BUN/creatinine ratio of 22.2 present on admission with suspected JEANNE; with elevated creatinine of 1.62 mg/dL present on admission (up from her baseline of 1.07 mg/dL last month) due to #1 - Aggressively volume resuscitate and then recheck BMP in the AM to ensure improvement. 3. Mild Hypercalcemia of 10.8 mg/dL present on admission complicating #1 & #2 - Give IVF plus check Vitamin D level and intact PTH. 4. GERD - Continue PPI IV. 5. Essential hypertension - Hold scheduled antihypertensives until volume status is corrected. 5. Hyperlipidemia - Resume statin when patient can reliably tolerate PO intake. 6. Obesity; with BMI of 38.6 this admission + FLOR - Weight loss will be recommended. Continue CPAP. 7. DM-2; of unknown control - NPO for now. FSBS q. 6 hours plus SSI. Check HgbA1c to objectively evaluate quality of diabetic control. 8. History of Atrial Fibrillation; on apixaban - Continue apixaban as previous. 9. History of embolic CVA and history of intraventricular hemorrhage with chronic ambulatory dysfunction requiring the use of a cane - Noted. 10. History of ventral hernia repair - Noted. 11. OA - Stable. Give Tylenol prn. 12. DVT prophylaxis - Patient is on apixaban for #8 which will be continued. Total time: Approximately 55 minutes. Charges/Coding Visit Charges Inpatient E&M: 80815 Init Hosp L2
[2023-09-30] VITALS (11 sets, daily range): BP systolic 99–142; BP diastolic 38–87; PULSE 100–121; RESP 15–21; TEMP 36.6–37.4; O2SAT 89–97; BMI 39.9; BMI 40.1
[2023-09-30] MEDS: Lactated Ringers 1,000 ML 125 ML IV (02:07)
[2023-09-30] MEDS: Menthol/Lanolin/Calamine/Znox 113 GM Tube 1 APPLIC TOPICAL ×3 (06:23→21:12)
[2023-09-30] MEDS: Nystatin Powder 15gm Bottle 1 APPLIC TOPICAL ×3 (06:23→21:11)
[2023-09-30 06:37] LABS: Absolute Lymphocyte Count 1.37 X10^3/uL (0.83-4.51); Absolute Neutrophil Count 8.3 X10^3/uL (2.0-7.7); Basophil# 0.05 X10^3/uL; Basophil% 0.5 % (0-1); Eosinophil# 0.07 X10^3/uL; Eosinophils% 0.6 % (0-5); Hemoglobin 12.7 g/dL (12.0-15.0); Lymphocyte # 1.37 X10^3/ul (0.83-4.51); Lymphocyte % 12.6 % (19-41); Mean Corp Hgb Conc 30.2 g/dL (32-36); Mean Corpuscular Hgb 24.4 pg (27.0-32.0); Mean Corpuscular Volume 80.8 fL (81-99); Mean Platelet Vol. 9.9 fl (6.2-12.0); Monocyte# 1.06 X10^3/uL; Monocyte% 9.8 % (0-10); NRBC Flagged by Analyzer 0 % (0-5); Neutrophil # 8.25 X10^3/uL (2.7-7.7); Platelet Count 209 K/mm3 (150-450); RBC Distribution Width CV 18.6 % (11.6-14.6); White Blood Count 10.9 K/mm3 (4.4-11.0)
[2023-09-30 06:53] LABS: Bedside Glucose 139 mg/dL (74-106)
--- NOTE | 2023-09-30 07:01 | PN.HOSP_ITS ---
Reason for Visit Reason for Visit: Nausea/vomiting Subjective Subjective Patient is a 67-year-old white female who presented to the emergency department at [facility] on 09/29/2023 with nausea and vomiting. She has a complicated past medical history. She reported that her symptoms began early on the day of presentation with abrupt onset of nausea and frequent bilious emesis followed by voluminous nonbloody diarrhea. She reported she has had chills and bodyaches but denied any fever, abdominal pain, shortness of breath, cough, dysuria, recent sick contacts or travel. Vital signs on presentation showed temperature of 97.5, heart rate 110, blood pressure 144/68, respiratory 18 and oxygen saturations 95% on room air. Her CBC demonstrated a leukocytosis with a white count of 14.3 and a left shift with an 85.95% neutrophilia however she appeared to be somewhat dehydrated. Chemistry panel showed normal electrolytes however BUN was 36 and her serum creatinine was 1.62 which is significantly above her baseline of 0.8-1.1 most recently. Her serum glucose was elevated at 185. Her calcium was slightly elevated at 10.8. LFTs were unremarkable. Lipase was 41. CT of the abdomen pelvis showed bibasilar atelectasis right greater than left without airspace disease or effusion, and no masses but nonspecific fluid-filled segments of the small bowel consistent with mild enteritis, diverticulosis without diverticulitis, a stable right renal exophytic cyst and no other significant abnormalities. COVID, flu, RSV PCR is negative C. difficile and enteric panel are pending. She was admitted to the medical floor for what was suspected to be acute viral gastroenteritis and placed on IV fluids, antiemetics. It appears that her hypercalcemia has been assessed further by her primary care physician and she had an intact PTH done earlier the last month and it was elevated but a vitamin D level and a repeat PTH are pending. Patient states she is cold. Feels like her nausea and vomiting are improved. I did tell her that we would try her clear liquid diet for now and she was pleased as she states she feels like she can eat something now. No diarrhea since presenting. No other acute complaints at this time. Objective Data Objective Data Vital Signs: Vital Signs Temp Pulse Resp BP Pulse Ox O2 Del Method O2 Flow Rate 98.7 F 109 H 15 142/87 H 93 Nasal Cannula 2 09/30/23 06:25 09/30/23 06:25 09/30/23 06:28 09/30/23 06:25 09/30/23 04:00 09/30/23 06:28 09/30/23 06:28 Oxygen Flow Rate (L/min) 2 Oxygen Delivery Method Nasal Cannula Weight: 113.2 kg Body Mass Index (BMI) 40.1 Intake & Output: Intake and Output for Last 24 Hours 09/28/23 09/29/23 09/30/23 23:59 23:59 23:59 Intake Total 1999 200 / 200 Balance 1999 200 / 200 Lab / Micro Data 09/30/23 05:10 09/30/23 05:10 Labs: Laboratory Results - last 24 hr 09/29/23 21:06: WBC 14.3 H, RBC 6.06 H, Hgb 14.9, Hct 48.4 H, MCV 79.9 L, MCH 24.6 L, MCHC 30.8 L, RDW Std Deviation 53.3 H, RDW Coeff of Faby 19.7 H, Plt Count 236, MPV 9.3, Immature Gran % (Auto) 0.400, Neut % (Auto) 85.9 H, Lymph % (Auto) 4.3 L, Thayer % (Auto) 8.9, Eos % (Auto) 0.1, Baso % (Auto) 0.4, Absolute Neuts (auto) 12.2 H, Absolute Lymphs (auto) 0.61 L, Nucleated RBC % 0, Sodium 139, Potassium 4.5, Chloride 108 H, Carbon Dioxide 25.0, Anion Gap 6, BUN 36 H, Creatinine 1.62 H, Estim Creat Clear Calc 42.86, Est GFR (MDRD) Af Amer 41 L, Est GFR (MDRD) Non-Af 34 L, BUN/Creatinine Ratio 22.2 H, Glucose 195 H, Calcium 10.8 H, Total Bilirubin 0.60, AST 25, ALT 27, Alkaline Phosphatase 124 H, Total Protein 8.2, Albumin 3.2, Globulin 5.0 H, Albumin/Globulin Ratio 0.6 L, Lipase 41 09/30/23 05:10: WBC 10.9, RBC 5.20, Hgb 12.7, Hct 42.0, MCV 80.8 L, MCH 24.4 L, MCHC 30.2 L, RDW Std Deviation 54.0 H, RDW Coeff of Faby 18.6 H, Plt Count 209, MPV 9.9, Immature Gran % (Auto) 0.500, Neut % (Auto) 76.0 H, Lymph % (Auto) 12.6 L, Thayer % (Auto) 9.8, Eos % (Auto) 0.6, Baso % (Auto) 0.5, Absolute Neuts (auto) 8.3 H, Absolute Lymphs (auto) 1.37, Nucleated RBC % 0 09/30/23 06:30: POC Glucose 139 H Micro: Microbiology 09/29/23 20:35 Mucosa - Nose SARS-CoV-2, Influenza & RSV (PCR) - Final Radiography Diagnostic Testing: Radiology Impression Abdomen/Pelvis CT 09/29/23 22:15 IMPRESSION: 1. Basilar atelectasis greater on the RIGHT than LEFT without airspace consolidation or effusion. 2. No masses or bowel obstruction. Nonspecific fluid-filled segments of small bowel are present. Mild enteritis is a consideration. 3. Diverticulosis without diverticulitis. The appendix is not positively identified however no evidence of appendicitis. 4. Stable appearance of a RIGHT renal exophytic cyst. No evidence of obstructive uropathy. 5. No evidence of cholelithiasis. Electronically Signed: Chet Bermudez MD at 23:02 EST , Physical Exam Const alert, oriented x3 and no apparent distress; Negative for average body habitus or healthy appearing Constitutional Narrative: Simple, morbidly obese, white female, lying in bed, appears cold but nontoxic, multiple blankets but patient is afebrile, appears chronically ill HEENT head/scalp atraumatic and moist oral mucous membranes HEENT Narrative: Dentition is poor, Mallampati is 3, no thrush Head and Scalp: normocephalic Resp normal respiratory effort, no retractions, no use of accessory muscles and clear to auscultation bilaterally Resp Narrative: Diminished in bases but auscultation was difficult due to body habitus Auscultation: Negative for rales, rhonchi or wheezes Cardio regular rate, regular rhythm, S1 normal heart sound, S2 normal heart sound, no murmurs, no rub, no gallops and no clicks GI normal to inspection, nondistended, normoactive bowel sounds and soft to palpation GI Narrative: Mild diffuse tenderness but no focal pinpoint tenderness Extremity no clubbing, cyanosis or edema Extremity Narrative: Pedal pulses are 2+ Neuro oriented x3, moves all extremities and no focal motor deficits Neuro Narrative: Generalized weakness noted but no focal deficits, patient with mild speech impediment at baseline Psych affect normal Psych Narrative: Interacted appropriately, pleasant Assessment & Plan Assessment/Plan (1) Hypercalcemia: (2) Nausea vomiting and diarrhea: (3) Dehydration: PLAN: Plan Intractable nausea/vomiting/diarrhea -Acute viral gastroenteritis is suspected however enteric panel and C. difficile are pending -Patient has had no diarrhea since admission -Continue IV fluids decreased to 70 cc/h -Continue as needed antiemetics -Avoid anything for her diarrhea until C. difficile is ruled out--> may not be able to obtain as her diarrhea has resolved at this time JEANNE secondary to dehydration -Baseline serum creatinine from labs in August show that her serum creatinine runs between 0.8 and 1.1 -Serum creatinine on presentation was 1.62. -Continue IV fluids--> with LR at 125 cc/h for now but if renal function has normalized we will decrease to 70 cc/h -A.m. labs still pending -Patient was given 3 L of IV fluids in the emergency department prior to admission Hypercalcemia -Workup has been initiated by primary care physician -Patient had intact PTH done on 09/04/2023 and it was 125.1 -She had a vitamin D level done on 05/10/2023 and it was 27.6 however vitamin D 125 was ordered and pending -Will continue vitamin D supplementation however we do need to repeat of the vitamin D 25 to ascertain if her current supplementation is adequate -If her vitamin D level still low we will add ergocalciferol 50,000 units weekly -Recommend outpatient follow-up with endocrinology after discharge for hyperparathyroidism primary versus secondary Hypoxia -Patient does not typically wear oxygen -Currently requiring 2 L due to mild desaturations overnight next-could be related to FLOR/morbid obesity but also could have sustained aspiration while vomiting -I-S -As needed nebulizers -Wean oxygen as able Leukocytosis -Resolved with IV fluids -Suspect initial elevation was predominantly related to volume contraction from dehydration -Repeat lab in a.m. DM-2 with hyperglycemia -Most recent hemoglobin A1c from our system was 11.2 done on 08/09/2023 -She appears to have fairly poorly controlled diabetes -Hold dulaglutide -Hold glipizide -Hold Actos -Blood sugar this morning is 195 so we will add some low-dose Lantus at 6 units and continue SSI -Current diet is n.p.o. but will transition to clear liquids to see how she tolerates Atrial fibrillation -Antihypertensives on hold and patient is tachycardic with normotension at this time -Will start home Coreg 12.5 mg twice daily -Continue home apixaban -If patient is not able to keep down Coreg we will add IV metoprolol History of cardioembolic stroke/IVH -Continue home anticoagulation Chronic debility -Patient ambulates with a cane at baseline -PT/OT consultation HTN/HPL -Most of her antihypertensives are on hold due to soft blood pressures on presentation -Will continue to hold amlodipine and lisinopril -Reinitiate home carvedilol as patient is beginning to get tachycardic and has h istory of atrial fibrillation with most recent blood pressure 142 systolic -Continue home statin GERD -Continue home PPI but transition to IV for now FLOR -Unclear at this time if patient is compliant--> will discuss with patient and order if she is compliant OA -As needed Tylenol Morbid obesity -BMI is 40.3 -Recommend weight loss -Complicates treatment, prognosis, outcomes DVT prophylaxis -Continue home apixaban CODE STATUS -Full code is verified on admission Charges/Coding Visit Charges Inpatient E&M: 20261 Subs Hosp L2
[2023-09-30 07:14] LABS: ALB/GLOB Ratio 0.6 RATIO (0.9-2.4); AST(SGOT) 22 U/L (15-37); Alanine Aminotransfer ALT/SGPT 21 U/L (13-56); Albumin, Serum 2.5 g/dL (3.2-5.0); Alkaline Phosphatase 95 U/L (45-117); Anion Gap 4 (5-15); BUN 36 mg/dL (7-18); BUN/Creat Ratio 32.1 RATIO (10-20); Chloride 116 mmol/L (98-107); Creatinine, Serum 1.12 mg/dL (0.55-1.02); EST Glomerular Filtration Rate 51 mL/min (>60); Est Glom Filt Rate - Afr Amer 62 mL/min (>60); Estimated Creatinine Clearance 61.37 ml/min; Globulin 3.9 g/dL (2.2-4.2); Glucose 125 mg/dL (74-106); Magnesium 1.8 mg/dL (1.6-2.6); Phosphorus 3.2 mg/dL (2.5-4.9); Potassium 3.8 mmol/L (3.5-5.1); Protein, Total 6.4 g/dL (6.4-8.2); Sodium Level 142 mmol/L (136-145); Thyroid Stim Hormone (TSH) 0.22 uIU/mL (0.358-3.74)
[2023-09-30] MEDS: Lactated Ringers 1,000 ML 70 ML IV (08:54)
[2023-09-30] MEDS: Multivitamins,Therapeutic Tablet 1 TABLET PO (08:57)
[2023-09-30] MEDS: Insulin Glargine-YFGN 100 UNIT/ML Pen 6 UNIT SC (08:58)
[2023-09-30] MEDS: Carvedilol 12.5 MG Tablet PO ×2 (08:58→21:11)
[2023-09-30] MEDS: APIXABAN 5 MG TABLET PO ×2 (08:58→21:10)
[2023-09-30] MEDS: Pantoprazole Sodium 40 MG in 0.9% Normal Saline (100mL MB+) 100 ML 330 MG IV (08:59)
[2023-09-30 12:35] LABS: Bedside Glucose 145 mg/dL (74-106)
[2023-09-30 17:35] LABS: T4 Free Direct 1.23 ng/dL (0.76-1.46)
[2023-09-30 18:01] LABS: Bedside Glucose 125 mg/dL (74-106)
[2023-09-30] MEDS: MELATONIN 3 MG TABLET PO (21:10)
[2023-09-30] MEDS: Atorvastatin Calcium 80 MG Tablet PO (21:10)
[2023-09-30 21:42] LABS: Bedside Glucose 142 mg/dL (74-106)
[2023-09-30] MEDS: Acetaminophen 325 MG Tablet 650 MG PO (23:48)
[2023-10-01] VITALS (8 sets, daily range): BP systolic 113–138; BP diastolic 49–63; PULSE 87–96; RESP 20–22; TEMP 36.4–36.6; O2SAT 86–96; BMI 40.9
[2023-10-01] MEDS: Lactated Ringers 1,000 ML 70 ML IV (00:01)
[2023-10-01] MEDS: Nystatin Powder 15gm Bottle 1 APPLIC TOPICAL ×2 (02:51→13:25)
[2023-10-01] MEDS: Menthol/Lanolin/Calamine/Znox 113 GM Tube 1 APPLIC TOPICAL ×2 (02:51→13:25)
[2023-10-01 05:45] LABS: Absolute Lymphocyte Count 1.23 X10^3/uL (0.83-4.51); Absolute Neutrophil Count 3.4 X10^3/uL (2.0-7.7); Basophil# 0.03 X10^3/uL; Basophil% 0.5 % (0-1); Eosinophil# 0.14 X10^3/uL; Eosinophils% 2.5 % (0-5); Hematocrit 39.8 % (37-47); Hemoglobin 11.9 g/dL (12.0-15.0); Lymphocyte # 1.23 X10^3/ul (0.83-4.51); Lymphocyte % 22.2 % (19-41); Mean Corp Hgb Conc 29.9 g/dL (32-36); Mean Corpuscular Volume 80.2 fL (81-99); Mean Platelet Vol. 9.5 fl (6.2-12.0); Monocyte# 0.76 X10^3/uL; Monocyte% 13.7 % (0-10); NRBC Flagged by Analyzer 0 % (0-5); Neutrophil # 3.35 X10^3/uL (2.7-7.7); Neutrophil % 60.7 % (47-70); Platelet Count 179 K/mm3 (150-450); RBC Distribution Width CV 18.1 % (11.6-14.6); RBC Distribution Width SD 52.3 fl (35.1-43.9); Red Blood Count 4.96 M/mm3 (4.2-5.4); White Blood Count 5.5 K/mm3 (4.4-11.0)
[2023-10-01 06:25] LABS: Anion Gap 1 (5-15); BUN 24 mg/dL (7-18); BUN/Creat Ratio 35.7 RATIO (10-20); Calcium,Total 9.1 mg/dL (8.5-10.1); Chloride 114 mmol/L (98-107); Creatinine, Serum 0.67 mg/dL (0.55-1.02); EST Glomerular Filtration Rate 93 mL/min (>60); Est Glom Filt Rate - Afr Amer 112 mL/min (>60); Estimated Creatinine Clearance 86.93 ml/min; Glucose 99 mg/dL (74-106); Potassium 3.7 mmol/L (3.5-5.1); Sodium Level 141 mmol/L (136-145)
[2023-10-01] MEDS: Acetaminophen 325 MG Tablet 650 MG PO (08:02)
[2023-10-01] MEDS: Pantoprazole Sodium 40 MG in 0.9% Normal Saline (100mL MB+) 100 ML 330 MG IV (08:03)
[2023-10-01] MEDS: Carvedilol 12.5 MG Tablet PO (08:04)
[2023-10-01] MEDS: APIXABAN 5 MG TABLET PO (08:04)
[2023-10-01 08:16] LABS: Bedside Glucose 104 mg/dL (74-106)
[2023-10-01 08:26] LABS: PTHIN 197.9 pg/mL (18.4-80.1)
--- NOTE | 2023-10-01 08:27 | NURSING ---
Primary RN Emma and Resp. Therapist Rosio updated on Dr. Moy responses to text regarding repeat ABG results.- Continue Bipap for 2-3 hrs more. May take off for breakfast to eat and put on.
[2023-10-01 08:28] LABS: Vitamin D,25 Hydroxy 38.6 ng/mL
[2023-10-01] MEDS: Insulin Glargine-YFGN 100 UNIT/ML Pen 6 UNIT SC (10:05)
--- NOTE | 2023-10-01 12:23 | CASEMGMT ---
Addendum entered by Ira Holguin 10/01/23 14:17: Pt did not qualify for home oxygen. Original Note: RN RICHA into pt room, pt sitting up eating lunch. Pt requests cottage cheese. Pt states she feels safe to return home. She denies need for any therapy at home. States she is able to care for herself. She states she called [facility] van to take her home. She denies having oxygen at home. TC to Yessy at [facility] transportation. She states pt started to call to arrange for transportation home. They are able to take her at 3pm. Updated pt nurse. Pt nurse reports pt was ambulating in room by self. [employer] ordered cottage cheese for pt. AYE CHAUDHRY back into pt room, pt aware that cottage cheese will be on its way. She is aware that the van will plan for a 3pm transport home. Pt states she is able to get in and out of van on own. Updated hospitalist of plan.
[2023-10-01 12:25] LABS: Bedside Glucose 132 mg/dL (74-106)
--- NOTE | 2023-10-01 14:03 | DCINST_ITS ---
Discharge Instructions Diet Discharge Diet: No restrictions Activity Discharge Activity: Return to Normal Activity Weight Bearing Status: Full weight bearing Follow Up Care Test Results: Test results from this visit will be discussed in further detail at your follow- up appointment, if applicable. Discharge Plan Admission Admit Date/Time: 09/29/23 23:55 Primary Reason for Your Visit: viral gastroenteritis and dehydration Attending Provider: Julio Schultz Primary Care Provider: Dennis Pelayo Consulting Providers: Bobo Cole; Tari Dawson Instructions Additional Instructions / Restrictions: Continue all home medications as normal. Follow-up with your primary care doctor in the office as needed. Discharge Orders/Prescriptions Prescriptions: Continued multivitamin [Daily Multi-Vitamin] Tablet 1 tab PO DAILY omeprazole 20 MG capsule 20 mg PO DAILY Patient Comments: GASTRIC REFLUX amlodipine [Norvasc] 10 MG tablet 10 mg PO DAILY Patient Comments: high blood pressure Eliquis 5 MG tablet 5 mg PO BID Patient Comments: start eliquis on 10/23/2016 atorvastatin 80 MG tablet 80 mg PO QHS 0RF lisinopril 40 MG tablet 40 mg PO DAILY 0RF carvedilol 12.5 mg tablet 12.5 mg PO BID ondansetron 4 mg tablet,disintegrating 8 mg PO Q8H PRN PRN (Reason: Nausea) Qty: 12 0RF glipizide 10 mg tablet 10 mg PO BID cholecalciferol (vitamin D3) 50 mcg (2,000 unit) capsule 50 mcg PO DAILY Trulicity 0.75 mg/0.5 mL pen injector 0.75 mg subcut QWEEK Qty: 2 2RF Rx Instructions: stop Januvia pioglitazone 15 mg tablet 15 mg PO DAILY Qty: 30 3RF Referrals / Follow Up: Dennis Pelayo DO [Primary Care Provider] - Disposition Disposition (needs filled in before D/C Order can be placed): Home, Self Care
--- NOTE | 2023-10-01 14:06 | PCM.DC.SUM ---
Providers Date of Admission: 09/29/23 Date of Discharge: 10/01/23 Primary Care Physician: Dr. Dennis Pelayo DO Reason For Visit: VIRAL GASTROENTERITIS WITH JEANNE AND DEHYDRATION Diagnosis Discharge Diagnosis (1) Hypercalcemia: Status: Acute Code(s): E83.52 - Hypercalcemia (2) Nausea vomiting and diarrhea: Status: Acute Code(s): R11.2 - Nausea with vomiting, unspecified; R19.7 - Diarrhea, unspecified (3) Dehydration: Status: Acute Code(s): E86.0 - Dehydration Medications at Discharge Home Medications omeprazole 20 mg capsule,delayed release 20 mg PO DAILY GERd 05/29/14 amlodipine 10 mg tablet (Norvasc) 10 mg PO DAILY HTN 10/04/16 apixaban 5 mg tablet (Eliquis) 5 mg PO BID blood thinner 10/04/16 atorvastatin 80 mg tablet 80 mg PO QHS 10/25/16 lisinopril 40 mg tablet 40 mg PO DAILY 10/25/16 carvedilol 12.5 mg tablet 12.5 mg PO BID HTN 01/23/21 ondansetron 4 mg disintegrating tablet 8 mg (2 x 4 mg) PO Q8H PRN PRN Nausea #12 tabs 02/17/22 multivitamin (Daily Multi-Vitamin tablet) 1 tab PO DAILY 03/10/22 dulaglutide 0.75 mg/0.5 mL subcutaneous pen injector (Trulicity) 0.75 mg (0.5 mL) subcut QWEEK #2 mL 08/21/22 pioglitazone 15 mg tablet 15 mg PO DAILY #30 tabs 10/09/22 glipizide 10 mg tablet 10 mg PO BID DM 08/09/23 cholecalciferol (vitamin D3) 50 mcg (2,000 unit) capsule 50 mcg PO DAILY vits 09/30/23 Hospital Course Operations None Procedures EKG and - (CT abdomen pelvis without contrast) Summary of Care Provided Minutes Spent on Discharge: 35 Hospital Course: Patient is a 67-year-old female who presented to [facility] ED on 09/29/2023 with intractable nausea/vomiting and diarrhea. Hospital course as noted below. Patient was discharged home in stable condition on 09/30. 1. Intractable nausea/vomiting and diarrhea, resolved ? Suspected secondary to acute viral gastroenteritis given findings on CT abdomen pelvis on admission. Had quick resolution of diarrhea, unable to obtain stool sample for enteric panel and C. difficile. Patient transition from clear liquid diet to regular diet on 09/30 and tolerated without issue. Prescribed short course of p.o. Zofran on discharge. 2. JEANNE secondary to dehydration, resolved ? Creatinine 1.62 on admit, baseline creatinine 0.6-0.8. Suspected prerenal etiology secondary to dehydration. Creatinine improved to 0.67 on day of discharge after IV fluid resuscitation. 3. Hypercalcemia, resolved ? Mild hypercalcemia noted on admission, resolved after IV fluid administration. Outpatient follow-up. 4. Hypoxia, resolved ? Required 2 L at night intermittently due to desaturations, suspect secondary to FLOR. Did not require oxygen on discharge. Suspect patient has undiagnosed FLOR, recommend outpatient follow-up on discharge. Chronic medical conditions: ? Type 2 diabetes mellitus with hyperglycemia: A1c 11.2% on 08/09/2023. Lantus 6 units at night with sliding-scale insulin while inpatient. Okay to resume home dulaglutide, glipizide and Actos on discharge. Recommend close outpatient follow-up. ? A-fib: Started on Coreg 12.5 mg twice daily while inpatient with improvement in rate control. Home lisinopril and amlodipine held during admission due to JEANNE as noted above. Will restart home lisinopril on admission, continue Coreg started on admission, discontinued home amlodipine. ? History of carbolic stroke/IVH: Continue home Eliquis. ? Chronic debility: PT/OT/case management followed. Okay for home on discharge with no further needs. ? Hypertension: Continued home lisinopril, held home amlodipine on discharge with addition of Coreg as noted above. ? Hyperlipidemia: Continue home statin. ? GERD: Continue home PPI. ? OA: Tylenol as needed while inpatient. ? Morbid obesity: BMI 41 on admit. Complicated hospital course, care, recovery and prognosis. Total clinical time spent by myself addressing the patient's discharge needs: 35 minutes. Physical Exam Const alert and no apparent distress Constitutional Narrative: Elderly female, obese, sitting comfortably in bed, mild cognitive impairment but is at baseline, no acute distress. General Appearance: cooperative and comfortable HEENT normocephalic, head/scalp atraumatic, hearing grossly normal bilaterally, nasal mucous membranes and turbinates normal and moist oral mucous membranes Eyes PERRL, EOMs intact bilaterally and conjunctivae normal Neck full ROM Chest inspection of chest normal Resp normal respiratory effort, normal air movement, no use of accessory muscles and clear to auscultation bilaterally Cardio regular rate, regular rhythm, no murmurs and peripheral pulses 2+ throughout GI normal to inspection, nondistended, normoactive bowel sounds, soft to palpation, non-tender and non-distended Back/Spine normal ROM Extremity normal to inspection, full ROM and no pedal edema Skin no rashes or lesions noted Neuro no focal motor deficits and no sensory deficits noted Psych mental status grossly normal Weight / BMI Weight Weight: 115.6 kg Body Mass Index (BMI) 40.9 ABG / Lab / Microbiology Data 10/01/23 05:01 10/01/23 05:01 Laboratory: Laboratory Results - last 24 hr 09/30/23 05:10: Vitamin D 25-Hydroxy 38.6, Free T4 1.23, PTH Intact 197.9 H 09/30/23 17:40: POC Glucose 125 H 09/30/23 21:09: POC Glucose 142 H 10/01/23 05:01: WBC 5.5, RBC 4.96, Hgb 11.9 L, Hct 39.8, MCV 80.2 L, MCH 24.0 L, MCHC 29.9 L, RDW Std Deviation 52.3 H, RDW Coeff of Faby 18.1 H, Plt Count 179, MPV 9.5, Immature Gran % (Auto) 0.400, Neut % (Auto) 60.7, Lymph % (Auto) 22.2, Bee % (Auto) 13.7 H, Eos % (Auto) 2.5, Baso % (Auto) 0.5, Absolute Neuts (auto) 3.4, Absolute Lymphs (auto) 1.23, Nucleated RBC % 0, Sodium 141, Potassium 3.7, Chloride 114 H, Carbon Dioxide 26.0, Anion Gap 1 L, BUN 24 H, Creatinine 0.67, Estim Creat Clear Calc 86.93, Est GFR (MDRD) Af Amer 112, Est GFR (MDRD) Non-Af 93, BUN/Creatinine Ratio 35.7 H, Glucose 99, Calcium 9.1 10/01/23 07:48: POC Glucose 104 10/01/23 12:04: POC Glucose 132 H Microbiology: Microbiology 09/29/23 20:35 Mucosa - Nose SARS-CoV-2, Influenza & RSV (PCR) - Final D/C Instructions Discharge Diet: No restrictions Weight Bearing Status: Full weight bearing Meaningful Use Info Meaningful Use Diagnoses (Choose all that apply): None applicable Discharge Plan Admission Admit Date/Time: 09/29/23 23:55 Primary Reason for Your Visit: viral gastroenteritis and dehydration Attending Provider: Julio Schultz Primary Care Provider: Dennis Pelayo Consulting Providers: Bobo Cole; Tari Dawson Instructions Additional Instructions / Restrictions: Continue all home medications as normal. Follow-up with your primary care doctor in the office as needed. Discharge Orders/Prescriptions Prescriptions: Continued multivitamin [Daily Multi-Vitamin] Tablet 1 tab PO DAILY omeprazole 20 MG capsule 20 mg PO DAILY Patient Comments: GASTRIC REFLUX amlodipine [Norvasc] 10 MG tablet 10 mg PO DAILY Patient Comments: high blood pressure Eliquis 5 MG tablet 5 mg PO BID Patient Comments: start eliquis on 10/23/2016 atorvastatin 80 MG tablet 80 mg PO QHS 0RF lisinopril 40 MG tablet 40 mg PO DAILY 0RF carvedilol 12.5 mg tablet 12.5 mg PO BID ondansetron 4 mg tablet,disintegrating 8 mg PO Q8H PRN PRN (Reason: Nausea) Qty: 12 0RF glipizide 10 mg tablet 10 mg PO BID cholecalciferol (vitamin D3) 50 mcg (2,000 unit) capsule 50 mcg PO DAILY Trulicity 0.75 mg/0.5 mL pen injector 0.75 mg subcut QWEEK Qty: 2 2RF Rx Instructions: stop Januvia pioglitazone 15 mg tablet 15 mg PO DAILY Qty: 30 3RF Referrals / Follow Up: Dennis Pelayo DO [Primary Care Provider] - Disposition Disposition (needs filled in before D/C Order can be placed): Home, Self Care Charges/Coding Visit Charges Inpatient E&M: 43239 Disch Hosp >30min
--- NOTE | 2023-10-01 14:57 | CASEMGMT ---
Attempted to meet and phone patient throughout day to complete STROUD form with no success. Call placed to patients niece. STROUD form explained to?patients niece who voiced understanding and signed form. Original form placed in pt?s chart and copy provided to?patient. Nakia Hinton, Discharge Planning Asst
[2023-10-03 12:10] LABS: Vitamin D 1,25-Dihydroxy 37.6 pg/mL (24.8-81.5)
== END 2023-10-01 14:58 | disposition home or self-care (01) ==
LOC: ED 19:34 → MS3 09-30 00:10
PROVIDERS: Internal Medicine; Admitting Provider Internal Medicine; Emergency Provider Student in an Organized Health Care Education/Training Program; PCP Family Medicine; Visit Provider Hospitalist
DX: A08.4 Viral intestinal infection, unspecified (principal); N17.9 Acute kidney failure, unspecified; E11.65 Type 2 diabetes mellitus with hyperglycemia; I48.91 Unspecified atrial fibrillation; Z68.41 Body mass index [BMI] 40.0-44.9, adult; E66.01 Morbid (severe) obesity due to excess calories; E78.5 Hyperlipidemia, unspecified; Z79.84 Long term (current) use of oral hypoglycemic drugs; Z87.891 Personal history of nicotine dependence; I10 Essential (primary) hypertension; Z20.822 Contact with and (suspected) exposure to COVID-19; E83.52 Hypercalcemia; Z79.01 Long term (current) use of anticoagulants; K21.9 Gastro-esophageal reflux disease without esophagitis; R53.81 Other malaise; E86.0 Dehydration; Z79.899 Other long term (current) drug therapy; G47.33 Obstructive sleep apnea (adult) (pediatric); R09.02 Hypoxemia
CPT/HCPCS: 36415; 74176; 80048; 80053; 82306; 82652; 82962; 83690; 83735; 83970; 84100; 84439; 84443; 85025; 87631; 93005; 94668; 96361; 96365; 96366; 96375; 97162; 97166; 97802; 99221; 99284; J7030; J7120; G0378; J2405

== ENCOUNTER 2023-11-23 11:53 | Emergency (ER) | payer MEDICARE, MEDICAID, SELFPAY ==
[2023-11-23] VITALS (8 sets, daily range): BP systolic 105–138; BP diastolic 51–91; PULSE 100–117; RESP 18–24; TEMP 36.9–38.1; O2SAT 89–94; BMI 29.6
--- NOTE | 2023-11-23 12:05 | EDS_ITS ---
HPI History of Present Illness Chief Complaint: Nausea/Vomiting/Diarrhea [facility] Medical History Ambulates with cane Atrial fibrillation Diabetes mellitus Difficulty in walking Embolic stroke GERD (gastroesophageal reflux disease) Hyperlipidemia Hypertension Incarcerated ventral hernia Intraventricular hemorrhage Obesity Obesity (BMI 30-39.9) Obstructive sleep apnea Poor historian Recurrent incisional hernia with incarceration Stroke/cerebrovascular accident Home Medications omeprazole 20 mg capsule,delayed release 20 mg PO DAILY GERd 05/29/14 [History Last Taken 02/23/21] amlodipine 10 mg tablet (Norvasc) 10 mg PO DAILY HTN 10/04/16 [History Last Taken 02/23/21] apixaban 5 mg tablet (Eliquis) 5 mg PO BID blood thinner 10/04/16 [History Last Taken 12/26/21] atorvastatin 80 mg tablet 80 mg PO QHS 10/25/16 [Rx Last Taken 02/23/21] lisinopril 40 mg tablet 40 mg PO DAILY 10/25/16 [Rx Last Taken 02/23/21] carvedilol 12.5 mg tablet 12.5 mg PO BID HTN 01/23/21 [History Last Taken 02/23/21] ondansetron 4 mg disintegrating tablet 8 mg (2 x 4 mg) PO Q8H PRN PRN Nausea #12 tabs 02/17/22 [Rx Last Taken Unknown] multivitamin (Daily Multi-Vitamin tablet) 1 tab PO DAILY 03/10/22 [History Last Taken Unknown] dulaglutide 0.75 mg/0.5 mL subcutaneous pen injector (Trulicity) 0.75 mg (0.5 mL) subcut QWEEK #2 mL 08/21/22 [Rx Last Taken Unknown] pioglitazone 15 mg tablet 15 mg PO DAILY #30 tabs 10/09/22 [Rx Last Taken Unknown] glipizide 10 mg tablet 10 mg PO BID DM 08/09/23 [History Last Taken Unknown] cholecalciferol (vitamin D3) 50 mcg (2,000 unit) capsule 50 mcg PO DAILY vits 09/30/23 [History Last Taken Unknown] ondansetron 4 mg disintegrating tablet 4 mg PO Q8H PRN PRN Nausea #10 tabs 11/23/23 [Rx Last Taken Unknown] Allergy/AdvReac Type Severity Reaction Status Date / Time iodine Allergy Mild Itching Verified 11/23/23 11:59 Penicillins Allergy Mild Itching Verified 11/23/23 11:59 Family History Father CVA (cerebral vascular accident) Mother Diabetes Stomach cancer Other High cholesterol Hypertension Surgical History History of hysterectomy Hx of colonoscopy S/P repair of ventral hernia Status post debridement Social History household members: none Smoking Status: Former smoker alcohol intake: never substance use type: does not use what type of physical activity do you participate in: walking frequency: daily EXAM Physical Exam Const Vital Signs: 11/23/23 11:54 11/23/23 11:58 11/23/23 12:09 Temperature 99.4 F H 99.4 F H Temperature Source Oral Oral Pulse Rate 113 H 113 H 116 H Respiratory Rate 22 H 22 H 20 H Blood Pressure 105/58 L 105/58 L 125/62 H Blood Pressure Mean 73 73 83 Pulse Ox 91 91 90 Oxygen Delivery Method Room Air Room Air Room Air Oxygen Flow Rate (L/min) 11/23/23 12:26 11/23/23 12:41 11/23/23 13:53 Temperature 100.5 F H 99.6 F H Temperature Source Oral Oral Pulse Rate 117 H 108 H Respiratory Rate 24 H 18 Blood Pressure 138/54 H 109/51 L Blood Pressure Mean 82 70 Pulse Ox 89 94 93 Oxygen Delivery Method Room Air Nasal Cannula Nasal Cannula Oxygen Flow Rate (L/min) 2 1 11/23/23 14:50 11/23/23 16:21 Temperature 98.5 F 98.5 F Temperature Source Temporal Pulse Rate 113 H 100 Respiratory Rate 22 H 24 H Blood Pressure 118/57 L 110/91 H Blood Pressure Mean 77 97 Pulse Ox 93 90 Oxygen Delivery Method Room Air Oxygen Flow Rate (L/min) MDM MDM MDM Narrative Medical decision making narrative: HISTORY OF PRESENT ILLNESS: 67-year-old female presents with nausea vomiting diarrhea since last night. States no recent sick contacts. Denies abdominal pain. No bleeding diathesis noted. Denies history of abdominal surgeries REVIEW OF SYSTEMS: Pertinent positives: Nausea vomiting diarrhea Pertinent negatives: Chest pain, shortness of breath, palpitations PHYSICAL EXAM: Nursing triage notes reviewed, Vital signs reviewed Constitutional: please see mdm HENT: MMM Eyes: Pupils equal round and reactive to light, Extraocular muscles intact Neck: No stridor, no JVD, full neck ROM Lungs: Clear to auscultation, No wheezing or rales. No increased work of breathing, no conversational dyspnea, no accessory muscle use, no nasal flaring. No respiratory distress noted Heart: Regular rate and rhythm, No murmurs, No rubs and No gallops, 2+ distal pulses (radial, femoral, posterior tibial) in all extremities Abdomen: Soft, there is no tenderness, rigidity, rebound or guarding, no obvious peritoneal signs, no palpable pulsatile abdominal masses, no auscultated abdominal bruit : No CVAT Extremities: No edema Neuro: No focal neurological deficits, cranial nerves II through XII intact, 5/5 strength in all extremities. Intact sensation to light touch in all extremities, 2+ reflexes bilateral patella tendons. Normal gait. No ataxia. Skin: No rash or lesions noted MEDICAL DECISION MAKING: Chief Complaint: Nausea vomiting diarrhea External records reviewed: Imaging reviewed: CT scan of the abdomen and pelvis from 2023 shows no mass or bowel obstruction, noted mild enteritis at this time Factors affecting care: Hyperlipidemia, type 2 diabetes, hypertension, GERD, FLOR, obesity, ventral hernia Social determinants of health: Denies drug use History obtained from others: none Consults: none [facility] Narrative: Patient is initially tachycardic, tachypneic, she is febrile initial oxygen saturation document 89% room air however the patient 94% room air during my evaluation and was denying chest pain or shortness of breath I considered the following differential diagnosis: Dehydration, electrolyte disturbance, aspiration pneumonia, obstruction perforation I obtained a broad lab and imaging workup to further elucidate the etiology patient complaints ALL IMAGES (IF OBTAINED) HAVE BEEN PERSONALLY REVIEWED AND INTERPRETED BY MYSELF. EKG with sinus tachycardia, normal axis, no intervals, no STEMI I have personally reviewed the patient's chest x-ray. Chest x-ray is unremarkable for pulmonary edema, pneumothorax, pneumonia or focal cardiopulmonary abnormality. CBC without leukocytosis, severe anemia, no thrombocytopenia. CMP without evidence of acute kidney injury, significant electrolyte abnormality, anion gap, no evidence hepatobiliary pathology. Lipase is wnl indicating no pancreatic inflammation. Urinalysis shows no evidence of urinary inflammation suggestive of UTI COVID flu RSV negative CT scan of the abdomen pelvis shows no evidence of acute surgical pathology The synthesis with his history, physical exam, labs images suggest no acute life-limiting etiology. Suspect patient suffering from viral gastroenteritis or other inflammatory condition abdomen or pelvis. Is able to tolerate p.o. here. She is given Zofran, fluid instructions, and strict return precautions The patient and/or family, caregivers express understanding. The patient and/or family, caregivers agrees with the plan. Shared decision making: I will have a discussion with the patient and or visitors regarding risk/benefits of further testing or admission. They will be made aware of of the risk/benefits inherent in this decision they will be given the opportunity to voice understanding. Total critical care time today provided was at least 0 minutes. This excludes separately billable procedures. Critical care time (if documented) is secondary to the patient having high probability of clinically significant/life threatening deterioration in the patient's condition which required my urgent intervention. Impression: 1. Tachycardia 2. Nausea and diarrhea 3. Diarrhea 4. Dehydration Dispo: Discharge home This note was generated with [employer]ugg dictation software. It may contain incorrect words, spelling, and punctuation that were not noted in review of the chart prior to signing. Lab Data Labs: Laboratory Results - last 24 hr 11/23/23 11/23/23 12:00 14:20 WBC 9.9 RBC 5.20 Hgb 12.9 Hct 42.7 MCV 82.1 MCH 24.8 L MCHC 30.2 L RDW Std Deviation 55.6 H RDW Coeff of Faby 18.6 H Plt Count 196 MPV 9.6 Immature Gran % (Auto) 0.400 Neut % (Auto) 81.0 H Lymph % (Auto) 5.6 L [place] % (Auto) 12.2 H Eos % (Auto) 0.6 Baso % (Auto) 0.2 Absolute Neuts (auto) 8.0 H Absolute Lymphs (auto) 0.55 L Nucleated RBC % 0 Sodium 137 Potassium 4.7 Chloride 107 Carbon Dioxide 27.0 Anion Gap 3 L BUN 23 H Creatinine 1.00 Estim Creat Clear Calc 58.53 Est GFR (MDRD) Af Amer 71 Est GFR (MDRD) Non-Af 59 L BUN/Creatinine Ratio 23.1 H Glucose 180 H Calcium 10.2 H Total Bilirubin 0.70 Direct Bilirubin 0.24 AST 20 ALT 18 Alkaline Phosphatase 97 Total Protein 7.2 Albumin 3.0 L Globulin 4.2 Lipase 50 Urine Color Yellow Urine Clarity Clear Urine pH 6.0 Ur Specific [place] 1.010 Urine Protein Negative Urine Glucose (UA) 1000 H Urine Ketones Negative Urine Occult Blood Negative Urine Nitrite Negative Urine Bilirubin 1 H Urine Urobilinogen Normal Ur Leukocyte Esterase 25 H Urine RBC 0 SEEN Urine WBC 0 SEEN Ur Squamous Epith Cells 0 SEEN Urine Bacteria 0 SEEN Urine Mucus 0 SEEN Radiography Diagnostic Testing: Clinical Impression(s) from Imaging Studies Abdomen/Pelvis CT 11/23/23 12:32 IMPRESSION: Status post hysterectomy. Anastomosis seen at the level of the rectosigmoid junction. Small umbilical hernia containing fat. Electronically Signed: Yonas Stroud MD at 13:48 EDT , Chest X-Ray 11/23/23 12:34 IMPRESSION: Stable examination. No acute abnormality is seen. Electronically Signed: Yonas Stroud MD at 13:11 EDT , Discharge Plan Triage Chief Complaint: Nausea/Vomiting/Diarrhea ED Provider: Johnny Macias Dx/Rx/DC Orders Instructions: ED Diet Vomiting Diarrhea Prescriptions: New ondansetron 4 mg tablet,disintegrating 4 mg PO Q8H PRN PRN (Reason: Nausea) Qty: 10 0RF No Action multivitamin [Daily Multi-Vitamin] Tablet 1 tab PO DAILY omeprazole 20 MG capsule 20 mg PO DAILY Patient Comments: GASTRIC REFLUX amlodipine [Norvasc] 10 MG tablet 10 mg PO DAILY Patient Comments: high blood pressure Eliquis 5 MG tablet 5 mg PO BID Patient Comments: start eliquis on 10/23/2016 atorvastatin 80 MG tablet 80 mg PO QHS 0RF lisinopril 40 MG tablet 40 mg PO DAILY 0RF carvedilol 12.5 mg tablet 12.5 mg PO BID ondansetron 4 mg tablet,disintegrating 8 mg PO Q8H PRN PRN (Reason: Nausea) Qty: 12 0RF glipizide 10 mg tablet 10 mg PO BID cholecalciferol (vitamin D3) 50 mcg (2,000 unit) capsule 50 mcg PO DAILY Trulicity 0.75 mg/0.5 mL pen injector 0.75 mg subcut QWEEK Qty: 2 2RF Rx Instructions: stop Januvia pioglitazone 15 mg tablet 15 mg PO DAILY Qty: 30 3RF Primary Care Provider: Dennis Pelayo Referrals: Dennis Pelayo DO [Primary Care Provider] -
--- NOTE | 2023-11-23 12:06 | EKG12_ITS ---
Test Reason : N/V/D Blood Pressure : / mmHG Vent. Rate : 116 BPM Atrial Rate : 116 BPM P-R Int : 154 ms QRS Dur : 062 ms QT Int : 302 ms P-R-T Axes : 066 054 073 degrees QTc Int : 419 ms Sinus tachycardia Low voltage QRS Borderline ECG Confirmed by BRIA ALEXANDER MD [id number]), editor house organ REGAN ANDERSON ([id number]) on 11/26/2023 9:37:03 AM Referred By: FEDE Confirmed By:BRIA ALEXANDER MD
[2023-11-23] MEDS: Ondansetron 4 MG/2 ML Vial IV (12:20)
[2023-11-23] MEDS: 0.9% Normal Saline (1000mL) 1,000 ML 1000 ML IV (12:20)
--- NOTE | 2023-11-23 12:32 | CT_ITS ---
STUDY: CT ABDOMEN AND PELVIS WITHOUT CONTRAST REASON FOR EXAM: Female, 67 years old. Abdominal pain RADIATION DOSAGE (If Supplied By Facility): CTDIvol = ( 23.65 ) mGy, DLP = ( 1199.23 ) mGycm TECHNIQUE: Transaxial images were obtained from the dome of the diaphragm to the symphysis pubis without oral contrast, and without intravenous contrast. Sagittal and coronal images were reconstructed. Individualized dose optimization techniques were used for this CT. COMPARISON: Comparison is made with prior study September 29, 2023. FINDINGS: The visualized lung bases are unremarkable. Coronary artery calcification. Minimal anterior pericardial thickening. Normal liver. Normal gallbladder and extrahepatic biliary system. Normal spleen. Normal pancreas. Normal bilateral adrenal glands. Stable 4 cm x 4.1 cm rounded hypodense nodule in the posterior aspect of the right kidney suggestive of a cyst. Normal left kidney. Normal visualized stomach. Normal small intestine. An anastomosis seen in the rectosigmoid junction. There is non-visualization of the appendix. There is diffuse atherosclerotic calcification of the abdominal aorta and its major visceral branches., without a demonstrated aneurysm. Normal inferior vena cava. Normal retroperitoneum. Normal urinary bladder. There is absence of the uterus consistent with a prior hysterectomy. There is a small umbilical hernia containing fat. There are diffuse degenerative changes of the visualized lumbar spine. CT/Abdomen/Pelvis without Cont IMPRESSION: Status post hysterectomy. Anastomosis seen at the level of the rectosigmoid junction. Small umbilical hernia containing fat. Electronically Signed: Yonas Stroud MD at 13:48 EDT ,
--- NOTE | 2023-11-23 12:34 | RAD_ITS ---
STUDY: X-RAY CHEST REASON FOR EXAM: Female, 67 years old. SOB TECHNIQUE: Single AP portable view of the chest. COMPARISON: Comparison is made with prior study dated June 14, 2022. FINDINGS: EKG electrodes are seen. Hyperinflation. There is no demonstrated pleural abnormality. Normal size heart. Normal mediastinum and joselin. Normal visualized pulmonary arteries. There is atherosclerotic calcification of the aortic arch with tortuosity. Normal visualized thoracic spine. Normal visualized ribs, clavicles, and shoulders. There is no demonstrated abnormality of the visualized soft tissue structures of the upper abdomen. RAD/Chest 1 View (Portable) IMPRESSION: Stable examination. No acute abnormality is seen. Electronically Signed: Yonas Stroud MD at 13:11 EDT ,
[2023-11-23 12:51] LABS: AST(SGOT) 20 U/L (15-37); Alanine Aminotransfer ALT/SGPT 18 U/L (13-56); Alkaline Phosphatase 97 U/L (45-117); Anion Gap 3 (5-15); BUN 23 mg/dL (7-18); BUN/Creat Ratio 23.1 RATIO (10-20); Bilirubin, Direct 0.24 mg/dL (0.00-0.30); Calcium,Total 10.2 mg/dL (8.5-10.1); Chloride 107 mmol/L (98-107); EST Glomerular Filtration Rate 59 mL/min (>60); Est Glom Filt Rate - Afr Amer 71 mL/min (>60); Estimated Creatinine Clearance 58.53 ml/min; Globulin 4.2 g/dL (2.2-4.2); Glucose 180 mg/dL (74-106); Potassium 4.7 mmol/L (3.5-5.1); Protein, Total 7.2 g/dL (6.4-8.2); Sodium Level 137 mmol/L (136-145)
[2023-11-23] MEDS: Acetaminophen 325 MG Tablet PO (13:01)
[2023-11-23 14:24] LABS: Absolute Lymphocyte Count 0.55 X10^3/uL (0.83-4.51); Basophil# 0.02 X10^3/uL; Basophil% 0.2 % (0-1); Eosinophil# 0.06 X10^3/uL; Eosinophils% 0.6 % (0-5); Hematocrit 42.7 % (37-47); Hemoglobin 12.9 g/dL (12.0-15.0); Lymphocyte # 0.55 X10^3/ul (0.83-4.51); Lymphocyte % 5.6 % (19-41); Mean Corp Hgb Conc 30.2 g/dL (32-36); Mean Corpuscular Hgb 24.8 pg (27.0-32.0); Mean Corpuscular Volume 82.1 fL (81-99); Mean Platelet Vol. 9.6 fl (6.2-12.0); Monocyte# 1.21 X10^3/uL; Monocyte% 12.2 % (0-10); NRBC Flagged by Analyzer 0 % (0-5); Neutrophil # 8.01 X10^3/uL (2.7-7.7); POSITIVE DIFFERENTIAL YES; Platelet Count 196 K/mm3 (150-450); RBC Distribution Width CV 18.6 % (11.6-14.6); RBC Distribution Width SD 55.6 fl (35.1-43.9); White Blood Count 9.9 K/mm3 (4.4-11.0)
[2023-11-23 14:27] LABS: Bacteria 0 SEEN /hpf (None Seen); Mucous, Urine 0 SEEN /hpf (<or=2+); Red Blood Cells-Urine 0 SEEN /hpf (0-5); Squamous Epithelial Cells - UA 0 SEEN /hpf (5-10); White Blood Cells 0 SEEN /hpf (0-5)
[2023-11-23 14:29] LABS: Lipase 50 U/L (13-75)
[2023-11-23 14:29] LABS: Color, Urine Yellow (Yellow); Glucose, Dipstick 1000 mg/dl (Normal); Ketone-Dipstick Negative (Negative); Leukocyte Esterase-Dipstick 25 /ul (Negative); Nitrite-Dipstick Negative (Negative); Occult Blood-Urine Negative /ul (Negative); Protein-Dipstick Negative (Negative); Urine Clarity Clear (Clear); Urine Urobilinogen Normal (Normal)
[2023-11-23 14:34] LABS: Urine Bilirubin Dipstick 1 mg/dL (Negative)
--- NOTE | 2023-11-23 16:54 | ED.RN ---
[facility] CALLED, ETA 2 HOURS ([id number])
== END 2023-11-23 21:05 | disposition home or self-care (01) ==
LOC: ED 12:14
PROVIDERS: Emergency Provider Emergency Medicine; PCP Family Medicine; Visit Provider Emergency Medicine
DX: R11.0 Nausea (principal); I48.91 Unspecified atrial fibrillation; E11.9 Type 2 diabetes mellitus without complications; R19.7 Diarrhea, unspecified; E86.0 Dehydration; R00.0 Tachycardia, unspecified; Z87.891 Personal history of nicotine dependence; I10 Essential (primary) hypertension; E78.5 Hyperlipidemia, unspecified; K21.9 Gastro-esophageal reflux disease without esophagitis; Z79.899 Other long term (current) drug therapy; Z86.73 Personal history of transient ischemic attack (TIA), and cerebral infarction without residual deficits; Z79.01 Long term (current) use of anticoagulants; Z79.85 Long-term (current) use of injectable non-insulin antidiabetic drugs; Z79.84 Long term (current) use of oral hypoglycemic drugs
CPT/HCPCS: 71045; 74176; 80048; 80076; 81001; 83690; 85025; 87631; 93005; 99285; P9612; A4216; J2405

== ENCOUNTER → 2024-02-05 | Outpatient (CLI) | payer MEDICARE, MEDICAID, SELFPAY ==
--- NOTE | 2024-02-05 14:06 | US_ITS ---
STUDY: SUPERFICIAL ULTRASOUND - TARGETED ULTRASOUND OF THE ABDOMEN. REASON FOR EXAM: Female, 68 years old. Abdominal pain TECHNIQUE: A superficial ultrasound was performed with real-time and static whitney-scale imaging. COMPARISON: None. FINDINGS: The area of pain corresponds to the to the surgical incision. There is no evidence of hernia. US/Abdomen Limited IMPRESSION: No evidence of anterior abdominal wall hernia. The pain is deep to the incision. Electronically Signed: Yonas Stroud MD at 15:19 EDT ,
== END | disposition home or self-care (01) ==
PROVIDERS: PCP Family Medicine; Referring Provider Surgery; Visit Provider Surgery
DX: R10.9 Unspecified abdominal pain (principal)
CPT/HCPCS: 76705

== ENCOUNTER 2024-02-10 15:13 | Emergency (ER) | payer MEDICARE, MEDICAID, SELFPAY ==
[2024-02-10 15:14] VITALS: BP 169/149; PULSE 89; RESP 18; TEMP 36.6; O2SAT 96; BMI 43.6
--- NOTE | 2024-02-10 15:23 | EKG12_ITS ---
Test Reason : ABD PAIN Blood Pressure : / mmHG Vent. Rate : 089 BPM Atrial Rate : 089 BPM P-R Int : 162 ms QRS Dur : 074 ms QT Int : 348 ms P-R-T Axes : 063 052 057 degrees QTc Int : 423 ms Normal sinus rhythm Septal infarct , age undetermined Abnormal ECG Confirmed by SHAN GAFFNEY, JOSE ([id number]), web editor REGAN ANDERSON ([id number]) on 02/13/2024 9:50:10 AM Referred By: Confirmed By:BRODY TORREZ MD
--- NOTE | 2024-02-10 15:25 | EDS_ITS ---
HPI History of Present Illness Chief Complaint: Nausea/Vomiting Informant: patient Onset/Context/Timing Onset: Today Narrative Narrative: Patient present secondary to nausea and vomiting. She reports nausea and vom iting since early this morning. She was able to keep her medication down. She complains of chronic back pain but denies any recent fall or injury. She states she typically just takes Tylenol for her back. She does have increased frequency of urination, but no dysuria or hematuria. She denies chest pain or palpitations. [facility] Medical History Obesity Ambulates with cane Stroke/cerebrovascular accident Difficulty in walking Poor historian Recurrent incisional hernia with incarceration Incarcerated ventral hernia Obstructive sleep apnea Atrial fibrillation Intraventricular hemorrhage Embolic stroke GERD (gastroesophageal reflux disease) Obesity (BMI 30-39.9) Hyperlipidemia Hypertension Diabetes mellitus Home Medications ?Medication ?Instructions ?Recorded ?Last Taken ?Type omeprazole 20 mg capsule,delayed 20 mg PO DAILY GERd 05/29/14 02/23/21 History release amlodipine 10 mg tablet (Norvasc) 10 mg PO DAILY HTN 10/04/16 02/23/21 History apixaban 5 mg tablet (Eliquis) 5 mg PO BID blood thinner 10/04/16 12/26/21 History atorvastatin 80 mg tablet 80 mg PO QHS 10/25/16 02/23/21 Rx lisinopril 40 mg tablet 40 mg PO DAILY 10/25/16 02/23/21 Rx carvedilol 12.5 mg tablet 12.5 mg PO BID HTN 01/23/21 02/23/21 History multivitamin (Daily Multi-Vitamin 1 tab PO DAILY 03/10/22 Unknown History tablet) pioglitazone 15 mg tablet 15 mg PO DAILY #30 tabs 10/09/22 Unknown Rx glipizide 10 mg tablet 10 mg PO BID DM 08/09/23 Unknown History cholecalciferol (vitamin D3) 50 50 mcg PO DAILY vits 09/30/23 Unknown History mcg (2,000 unit) capsule ondansetron 4 mg disintegrating 4 mg PO Q8H PRN PRN Nausea #10 tabs 11/23/23 Unknown Rx tablet benzonatate 200 mg capsule 200 mg PO TID 01/01/24 Unknown History betamethasone dipropionate 0.05 % 1 applic topical BID PRN 01/01/24 Unknown History topical cream cholecalciferol (vitamin D3) 50 50 mcg PO DAILY 01/01/24 Unknown History mcg (2,000 unit) capsule clobetasol 0.05 % topical cream 1 applic topical BID 01/01/24 Unknown History dapagliflozin propanediol 10 mg 10 mg PO QDAY 01/01/24 Unknown History tablet (Farxiga) diphenoxylate-atropine 2.5 tab PO 01/01/24 Unknown History mg-0.025 mg tablet dulaglutide 0.75 mg/0.5 mL 4.5 mg subcut QWEEK 01/01/24 Unknown History subcutaneous pen injector (Trulicity) gabapentin 600 mg tablet 600 mg PO QDAY 01/01/24 Unknown History loratadine 10 mg tablet (Allergy 10 mg PO DAILY 01/01/24 Unknown History Relief (loratadine)) metformin 500 mg tablet 500 mg PO BID 01/01/24 Unknown History nystatin 100,000 unit/gram topical 1 applic topical DAILY 01/01/24 Unknown History powder potassium chloride 10 mEq 10 meq PO BID 01/01/24 Unknown History tablet,extended release tramadol 50 mg tablet 50 mg PO TID PRN 01/01/24 Unknown History ondansetron 4 mg disintegrating 4 mg PO Q8H PRN PRN Nausea #10 tabs 02/10/24 Unknown Rx tablet Allergy/AdvReac Type Severity Reaction Status Date / Time iodine Allergy Mild Itching Verified 02/10/24 15:18 Penicillins Allergy Mild Itching Verified 02/10/24 15:18 Family History Father CVA (cerebral vascular accident) Mother Diabetes Stomach cancer Other High cholesterol Hypertension Surgical History Hx of colonoscopy Status post debridement History of hysterectomy S/P repair of ventral hernia Social History household members: none Smoking Status: Former smoker alcohol intake: never substance use type: does not use what type of physical activity do you participate in: walking frequency: daily ROS ROS ED Constitutional Constitutional ED: Denies chills or fever(s) Eyes Eyes: Denies discharge from eye(s) ENT ENT ED: Denies discharge from eye(s), rhinorrhea or sore throat Cardiovascular Cardiovascular: Denies chest pain or palpitations Respiratory/Chest Respiratory/Chest: Denies cough or dyspnea Gastrointestinal Gastrointestinal: Reports nausea and vomiting; Denies abdominal pain or diarrhea Genitourinary Genitourinary ED: Reports urinary frequency; Denies dysuria Musculoskeletal Musculoskeletal: Reports back pain; Denies extremity pain Integumentary Denies Abrasions or rash Neurologic Neurologic: Denies headache(s) or weakness Allergic/Immunologic Allergic/Immunologic ED: Denies lip swelling or urticaria EXAM Physical Exam Const Vital Signs: 02/10/24 15:14 02/10/24 17:13 Temperature 97.9 F Temperature Source Oral Pulse Rate 89 91 Respiratory Rate 18 16 Blood Pressure 169/149 H 119/50 L Blood Pressure Mean 155 73 Pulse Ox 96 99 Oxygen Delivery Method Room Air Room Air Positive well nourished and well developed General Appearance ED: well developed HEENT Reports moist mucous membranes Eyes EOMs intact bilaterally Chest Wall inspection of chest normal and palpation of chest normal Resp normal respiratory effort and clear to auscultation bilaterally Cardio regular rate and regular rhythm GI non-tender Auscultation: hypoactive bowel sounds Palpation: soft Extremity normal to inspection Neuro oriented x3 Neuro Narrative: No focal neurologic deficit. Psych mental status grossly normal Skin no rashes or lesions noted MDM MDM MDM Narrative Medical decision making narrative: Patient was given Zofran ODT by EMS. She does report her nausea is improving. IV established. Patient placed on laboratory monitor. EKG obtained to evaluate for cardiac arrhythmia/ischemia. Labwork obtained to evaluate for leukocytosis, anemia, and electrolyte derangement. Urinalysis obtained to evaluate for infection/hematuria. Patient be given IV fluids along with a dose of fentanyl for her back pain. History & Record Review Discussion w/independent historian: Patient Additional record(s) reviewed:: Prior ED visit Lab Data Attestation: I reviewed the patient's lab results. Labs: Laboratory Results - last 24 hr 02/10/24 02/10/24 15:23 17:01 WBC 6.4 RBC 5.32 Hgb 13.3 Hct 44.3 MCV 83.3 MCH 25.0 L MCHC 30.0 L RDW Std Deviation 51.5 H RDW Coeff of Faby 17.2 H Plt Count 231 MPV 9.0 Immature Gran % (Auto) 0.600 Neut % (Auto) 65.5 Lymph % (Auto) 24.8 [place] % (Auto) 5.9 Eos % (Auto) 2.7 Baso % (Auto) 0.5 Absolute Neuts (auto) 4.2 Absolute Lymphs (auto) 1.59 Nucleated RBC % 0 Sodium 137 Potassium 5.6 H Chloride 107 Carbon Dioxide 28.0 Anion Gap 2 L BUN 14 Creatinine 0.95 Estim Creat Clear Calc 74.70 Est GFR (MDRD) Af Amer 75 Est GFR (MDRD) Non-Af 62 BUN/Creatinine Ratio 14.7 Glucose 128 H Calcium 10.7 H Total Bilirubin 0.50 Direct Bilirubin 0.06 AST 34 ALT 27 Alkaline Phosphatase 129 H Total Protein 8.2 Albumin 3.0 L Globulin 5.2 H Urine Color Yellow Urine Clarity Clear Urine pH 6.0 Ur Specific [place] 1.015 Urine Protein Negative Urine Glucose (UA) 1000 H Urine Ketones Negative Urine Occult Blood Negative Urine Nitrite Negative Urine Bilirubin Negative Urine Urobilinogen Normal Ur Leukocyte Esterase 25 H Urine RBC 0 SEEN Urine WBC 0-5 SEEN Ur Squamous Epith Cells 0-5 SEEN Urine Bacteria 0 SEEN Urine Mucus 0 SEEN EKG Initial EKG: Attestation: I personally reviewed and interpreted this EKG as follows: Interpretation: Sinus Rhythm (Sinus 89 with no acute ischemia. QTc is 423.) Treatment and Re-Evaluation :: CBC was normal white count 6.4 with a hemoglobin of 13.3. Differential unremarkable. Chemistry studies reveal a potassium of 5.6 with moderate hemolysis. BUN and creatinine are unremarkable. Glucose is 128. LFTs significant only for an alk phos of 129. Urinalysis does reveal glucose but no evidence of acute infection. On repeat evaluation patient resting comfortably. She has not had any further vomiting here. I will give her a prescription for Zofran at home. Return instructions provided. Patient comfortable with the plan. Discharge Plan Triage Chief Complaint: Nausea/Vomiting ED Provider: Yudelka Tobar Dx/Rx/DC Orders Clinical Impression: Vomiting, Chronic back pain Instructions: ED Back Pain (Acute or Chronic), ED Vomiting (Adult) Prescriptions: New ondansetron 4 mg tablet,disintegrating 4 mg PO Q8H PRN PRN (Reason: Nausea) Qty: 10 0RF No Action multivitamin [Daily Multi-Vitamin] Tablet 1 tab PO DAILY Trulicity 0.75 mg/0.5 mL pen injector 4.5 mg subcut QWEEK Rx Instructions: stop Januvia dapagliflozin propanediol [Farxiga] 10 mg tablet 10 mg PO QDAY gabapentin 600 mg tablet 600 mg PO QDAY metformin 500 mg tablet 500 mg PO BID tramadol 50 mg tablet 50 mg PO TID PRN diphenoxylate-atropine 2.5-0.025 mg tablet PO benzonatate 200 mg capsule 200 mg PO TID betamethasone dipropionate 0.05 % cream 1 applic topical BID PRN clobetasol 0.05 % cream 1 applic topical BID nystatin 100,000 unit/gram powder 1 applic topical DAILY potassium chloride 10 mEq tablet extended release 10 meq PO BID cholecalciferol (vitamin D3) 50 mcg (2,000 unit) capsule 50 mcg PO DAILY loratadine [Allergy Relief (loratadine)] 10 mg tablet 10 mg PO DAILY omeprazole 20 MG capsule 20 mg PO DAILY Patient Comments: GASTRIC REFLUX amlodipine [Norvasc] 10 MG tablet 10 mg PO DAILY Patient Comments: high blood pressure Eliquis 5 MG tablet 5 mg PO BID Patient Comments: start eliquis on 10/23/2016 atorvastatin 80 MG tablet 80 mg PO QHS 0RF lisinopril 40 MG tablet 40 mg PO DAILY 0RF carvedilol 12.5 mg tablet 12.5 mg PO BID glipizide 10 mg tablet 10 mg PO BID cholecalciferol (vitamin D3) 50 mcg (2,000 unit) capsule 50 mcg PO DAILY ondansetron 4 mg tablet,disintegrating 4 mg PO Q8H PRN PRN (Reason: Nausea) Qty: 10 0RF pioglitazone 15 mg tablet 15 mg PO DAILY Qty: 30 3RF Primary Care Provider: Dennis Pelayo Referrals: Dennis Pelayo DO [Primary Care Provider] - 3-5 Days if not improving Print Language: Georgian Disposition Disposition: Home, Self Care
[2024-02-10] MEDS: 0.9% Normal Saline (1000mL) 1,000 ML 150 ML IV (15:50)
[2024-02-10] MEDS: fentaNYL 100 MCG/2 ML Ampul 25 MCG IV (15:51)
[2024-02-10 15:59] LABS: Absolute Lymphocyte Count 1.59 X10^3/uL (0.83-4.51); Absolute Neutrophil Count 4.2 X10^3/uL (2.0-7.7); Basophil# 0.03 X10^3/uL; Basophil% 0.5 % (0-1); Eosinophil# 0.17 X10^3/uL; Eosinophils% 2.7 % (0-5); Hematocrit 44.3 % (37-47); Hemoglobin 13.3 g/dL (12.0-15.0); Lymphocyte # 1.59 X10^3/ul (0.83-4.51); Lymphocyte % 24.8 % (19-41); Mean Corpuscular Volume 83.3 fL (81-99); Monocyte# 0.38 X10^3/uL; Monocyte% 5.9 % (0-10); NRBC Flagged by Analyzer 0 % (0-5); Neutrophil # 4.19 X10^3/uL (2.7-7.7); Neutrophil % 65.5 % (47-70); Platelet Count 231 K/mm3 (150-450); RBC Distribution Width CV 17.2 % (11.6-14.6); RBC Distribution Width SD 51.5 fl (35.1-43.9); Red Blood Count 5.32 M/mm3 (4.2-5.4); White Blood Count 6.4 K/mm3 (4.4-11.0)
[2024-02-10 16:38] LABS: AST(SGOT) 34 U/L (15-37); Alanine Aminotransfer ALT/SGPT 27 U/L (13-56); Alkaline Phosphatase 129 U/L (45-117); Anion Gap 2 (5-15); BUN 14 mg/dL (7-18); BUN/Creat Ratio 14.7 RATIO (10-20); Bilirubin, Direct 0.06 mg/dL (0.00-0.30); Calcium,Total 10.7 mg/dL (8.5-10.1); Chloride 107 mmol/L (98-107); Creatinine, Serum 0.95 mg/dL (0.55-1.02); EST Glomerular Filtration Rate 62 mL/min (>60); Est Glom Filt Rate - Afr Amer 75 mL/min (>60); Globulin 5.2 g/dL (2.2-4.2); Glucose 128 mg/dL (74-106); Potassium 5.6 mmol/L (3.5-5.1); Protein, Total 8.2 g/dL (6.4-8.2); Sodium Level 137 mmol/L (136-145)
[2024-02-10 17:06] LABS: Bacteria 0 SEEN /hpf (None Seen); Mucous, Urine 0 SEEN /hpf (<or=2+); Red Blood Cells-Urine 0 SEEN /hpf (0-5)
[2024-02-10 17:08] LABS: Color, Urine Yellow (Yellow); Glucose, Dipstick 1000 mg/dl (Normal); Ketone-Dipstick Negative (Negative); Leukocyte Esterase-Dipstick 25 /ul (Negative); Nitrite-Dipstick Negative (Negative); Occult Blood-Urine Negative /ul (Negative); Protein-Dipstick Negative (Negative); Specific Gravity, Urine 1.015 (1.002-1.030); Urine Bilirubin Dipstick Negative (Negative); Urine Clarity Clear (Clear); Urine Urobilinogen Normal (Normal)
[2024-02-10 17:13] VITALS: BP 119/50; PULSE 91; RESP 16; O2SAT 99
[2024-02-10 17:22] LABS: Squamous Epithelial Cells - UA 0-5 SEEN /hpf (5-10); White Blood Cells 0-5 SEEN /hpf (0-5)
[2024-02-10 17:46] VITALS: BP 112/53; PULSE 92; RESP 16; TEMP 36.5; O2SAT 99
== END 2024-02-10 17:55 | disposition home or self-care (01) ==
PROVIDERS: Emergency Provider Emergency Medicine; PCP Family Medicine; Visit Provider Emergency Medicine
DX: R11.2 Nausea with vomiting, unspecified (principal); I48.91 Unspecified atrial fibrillation; E11.9 Type 2 diabetes mellitus without complications; E78.5 Hyperlipidemia, unspecified; G89.29 Other chronic pain; Z87.891 Personal history of nicotine dependence; M54.9 Dorsalgia, unspecified; I10 Essential (primary) hypertension; Z86.73 Personal history of transient ischemic attack (TIA), and cerebral infarction without residual deficits; K21.9 Gastro-esophageal reflux disease without esophagitis; Z79.899 Other long term (current) drug therapy; Z79.01 Long term (current) use of anticoagulants; Z79.84 Long term (current) use of oral hypoglycemic drugs; Z79.85 Long-term (current) use of injectable non-insulin antidiabetic drugs; Z90.710 Acquired absence of both cervix and uterus
CPT/HCPCS: 80048; 80076; 81001; 85025; 93005; 96361; 96374; 99283; J7030; A4216

== ENCOUNTER 2024-02-14 18:45 | Emergency (ER) | payer MEDICARE, MEDICAID, SELFPAY ==
[2024-02-14 18:45] VITALS: BP 123/68; PULSE 100; RESP 18; TEMP 37; O2SAT 97; BMI 42.3
--- NOTE | 2024-02-14 19:17 | RAD_ITS ---
STUDY: X-RAY - LUMBAR SPINE REASON FOR EXAM: Female, 68 years old. pain, fall TECHNIQUE: 5 view(s) of the lumbar spine were obtained. COMPARISON: None FINDINGS: Normal lumbar lordosis. There is no substantial scoliosis. There is a normal alignment of the vertebrae. Degenerative changes of the vertebral bodies with spurring at the endplates. Normal disc space heights. The soft tissue structures are unremarkable. Calcified aorta. RAD/L/S Spine Min 4 Views IMPRESSION: Degenerative changes of the lumbar spine. Electronically Signed: Jaydon Ochoa DO at 20:01 EDT ,
--- NOTE | 2024-02-14 19:19 | ED.VIS.BACK ---
HPI <ASIA Costa - Last Filed: 02/14/24 20:54> History of Present Illness Chief Complaint: Back Narrative Narrative: Patient presenting today due to low back pain that she has had chronically over several months that has acutely worsened over the last several days. She had a virtual visit with her PCP yesterday, he started her on Huxley and recommended if the pain did not get any better and to come into the ED for an x-ray of her back. She reports that she did have a mechanical fall in November where she fell onto her bottom but has had no further injury to her back. She denies any fever, chills, urinary symptoms, bowel/bladder incontinence, and saddle paresthesia. She had 1 dose of the Huxley this morning and called EMS who suggested she take another dose. She reports minimal relief from this. PFSH <ASIA Costa - Last Filed: 02/14/24 20:54> [facility] Medical History Obesity Ambulates with cane Stroke/cerebrovascular accident Difficulty in walking Poor historian Recurrent incisional hernia with incarceration Incarcerated ventral hernia Obstructive sleep apnea Atrial fibrillation Intraventricular hemorrhage Embolic stroke GERD (gastroesophageal reflux disease) Obesity (BMI 30-39.9) Hyperlipidemia Hypertension Diabetes mellitus Home Medications ?Medication ?Instructions ?Recorded ?Last Taken ?Type omeprazole 20 mg capsule,delayed 20 mg PO DAILY GERd 05/29/14 02/23/21 History release amlodipine 10 mg tablet (Norvasc) 10 mg PO DAILY HTN 10/04/16 02/23/21 History apixaban 5 mg tablet (Eliquis) 5 mg PO BID blood thinner 10/04/16 12/26/21 History atorvastatin 80 mg tablet 80 mg PO QHS 10/25/16 02/23/21 Rx lisinopril 40 mg tablet 40 mg PO DAILY 10/25/16 02/23/21 Rx carvedilol 12.5 mg tablet 12.5 mg PO BID HTN 01/23/21 02/23/21 History multivitamin (Daily Multi-Vitamin 1 tab PO DAILY 03/10/22 Unknown History tablet) pioglitazone 15 mg tablet 15 mg PO DAILY #30 tabs 10/09/22 Unknown Rx glipizide 10 mg tablet 10 mg PO BID DM 08/09/23 Unknown History cholecalciferol (vitamin D3) 50 50 mcg PO DAILY vits 09/30/23 Unknown History mcg (2,000 unit) capsule ondansetron 4 mg disintegrating 4 mg PO Q8H PRN PRN Nausea #10 tabs 11/23/23 Unknown Rx tablet benzonatate 200 mg capsule 200 mg PO TID 01/01/24 Unknown History betamethasone dipropionate 0.05 % 1 applic topical BID PRN 01/01/24 Unknown History topical cream cholecalciferol (vitamin D3) 50 50 mcg PO DAILY 01/01/24 Unknown History mcg (2,000 unit) capsule clobetasol 0.05 % topical cream 1 applic topical BID 01/01/24 Unknown History dapagliflozin propanediol 10 mg 10 mg PO QDAY 01/01/24 Unknown History tablet (Farxiga) diphenoxylate-atropine 2.5 tab PO 01/01/24 Unknown History mg-0.025 mg tablet dulaglutide 0.75 mg/0.5 mL 4.5 mg subcut QWEEK 01/01/24 Unknown History subcutaneous pen injector (Trulicity) gabapentin 600 mg tablet 600 mg PO QDAY 01/01/24 Unknown History loratadine 10 mg tablet (Allergy 10 mg PO DAILY 01/01/24 Unknown History Relief (loratadine)) metformin 500 mg tablet 500 mg PO BID 01/01/24 Unknown History nystatin 100,000 unit/gram topical 1 applic topical DAILY 01/01/24 Unknown History powder potassium chloride 10 mEq 10 meq PO BID 01/01/24 Unknown History tablet,extended release tramadol 50 mg tablet 50 mg PO TID PRN 01/01/24 Unknown History ondansetron 4 mg disintegrating 4 mg PO Q8H PRN PRN Nausea #10 tabs 02/10/24 Unknown Rx tablet Allergy/AdvReac Type Severity Reaction Status Date / Time iodine Allergy Mild Itching Verified 02/10/24 15:18 Penicillins Allergy Mild Itching Verified 02/10/24 15:18 Family History Father CVA (cerebral vascular accident) Mother Diabetes Stomach cancer Other High cholesterol Hypertension Surgical History Hx of colonoscopy Status post debridement History of hysterectomy S/P repair of ventral hernia Social History household members: none Smoking Status: Former smoker alcohol intake: never substance use type: does not use what type of physical activity do you participate in: walking frequency: daily ROS <ASIA Costa - Last Filed: 02/14/24 20:54> ROS ED Constitutional Constitutional ED: Denies chills or fever(s) Cardiovascular Cardiovascular: Denies chest pain Respiratory/Chest Respiratory/Chest: Denies dyspnea Gastrointestinal Gastrointestinal: Denies abdominal pain, nausea or vomiting Genitourinary Genitourinary ED: Denies dysuria or urinary urgency Musculoskeletal Musculoskeletal: Reports back pain Integumentary Denies rash Neurologic Neurologic: Denies paresthesias or weakness EXAM <ASIA Costa - Last Filed: 02/14/24 20:54> Physical Exam Const Vital Signs: 02/14/24 18:45 02/14/24 20:20 Temperature 98.6 F 97.6 F L Temperature Source Temporal Pulse Rate 100 95 Respiratory Rate 18 18 Blood Pressure 123/68 H 123/68 H Blood Pressure Mean 86 86 Pulse Ox 97 97 Oxygen Delivery Method Room Air Positive well nourished, well developed and no apparent distress General Appearance ED: well developed HEENT Reports normocephalic and head/scalp atraumatic Mouth ED: Yes moist mucous membranes normal Eyes PERRL and EOMs intact bilaterally Neck full ROM and supple Chest Wall inspection of chest normal Resp normal respiratory effort and clear to auscultation bilaterally Cardio regular rate and regular rhythm GI soft to palpation, non-tender, non-distended and no masses Back/Spine normal to inspection Back/Spine Narrative: Right and left paraspinal tenderness to palpation to the lumbar spine, minimal midline tenderness without any step-offs. Extremity normal to inspection and full ROM Neuro oriented x3, CN's II-XII intact bilaterally, moves all extremities, no focal motor deficits and no sensory deficits noted Sensorium / Orientation: awake and alert Motor Exam: strength 5/5 throughout Psych mental status grossly normal and thought process normal Skin no rashes or lesions noted and no wounds <Dr. Bryce Davenport DO - Last Filed: 02/14/24 20:08> Physical Exam Const Vital Signs: 02/14/24 18:45 02/14/24 20:20 Temperature 98.6 F 97.6 F L Temperature Source Temporal Pulse Rate 100 95 Respiratory Rate 18 18 Blood Pressure 123/68 H 123/68 H Blood Pressure Mean 86 86 Pulse Ox 97 97 Oxygen Delivery Method Room Air [facility] <ASIA Costa - Last Filed: 02/14/24 20:54> [facility] Narrative Medical decision making narrative: Patient presenting today due to acute on chronic low back pain. She is well-appearing and in no acute distress. She does not have any symptoms of cauda equina syndrome. X-ray of the lumbar spine obtained, this shows degenerative changes. She did not require any further analgesia given she had just taken a Huxley prior to arrival. I recommended that she continue the Huxley as prescribed by her PCP, she has only had 2 doses of this since being prescribed it yesterday. I recommended she follow-up with her PCP and she will be discharged home in stable condition. Radiography X-Ray: Read by ED Physician Diagnostic Testing: Clinical Impression(s) from Imaging Studies Lumbar Spine X-Ray 02/14/24 19:17 IMPRESSION: Degenerative changes of the lumbar spine. Electronically Signed: Jaydon Ochoa DO at 20:01 EDT , <Dr. Bryce Davenport, - Last Filed: 02/14/24 20:08> [facility] Radiography Diagnostic Testing: Clinical Impression(s) from Imaging Studies Lumbar Spine X-Ray 02/14/24 19:17 IMPRESSION: Degenerative changes of the lumbar spine. Electronically Signed: Jaydon Ochoa DO at 20:01 EDT , Treatment and Re-Evaluation Narrative: I have personally performed a face to face assessment of the patient and have reviewed the LEON Note. I performed a substantive portion of the visit including all aspects of the following. My ahn findings include: History: Patient presents with back pain that became worse today. Patient states she fell recently which caused a flareup of her chronic back pain. Patient describes her pain as aching. Patient states it is mainly over the lower lumbar area. Patient states nothing makes it worse and nothing makes it better. Patient denies any paresthesias or weakness. Patient denies any radiation of the pain. Patient denies any bowel or bladder changes. Patient denies any saddle anesthesia. Exam: Vital signs are stable. Patient is afebrile. Patient is in no acute distress. Musculoskeletal exam reveals tenderness over the lumbar spine and right lumbar paraspinal muscles. There is no bony crepitance or step-off noted. There is no obvious deformity noted. Range of motion is limited in all motions of the lumbar spine secondary to pain. Strength is 5/5 bilaterally in the lower extremities. There are no sensory deficits noted. Medical Decision Making: Differential diagnosis includes lumbar compression fracture, lumbosacral strain, and exacerbation of chronic back pain. X-rays of the lumbar spine will be obtained to assess for lumbar compression fracture and spondylolisthesis. X-rays of the lumbar spine were obtained. There are 5 views. On my independent interpretation, there is no acute fracture. There are chronic degenerative changes noted. There is no spondylolisthesis noted. Radiologist also interpreted the x-rays and agrees. Patient was advised of her findings. Patient was instructed to use ice to the area. Patient was instructed to continue her Huxley as previously prescribed. Patient was instructed to follow-up with her primary care physician in 5 to 7 days. Patient understood and was agreeable with the plan. All questions were answered. Discharge Plan Triage Chief Complaint: Back ED Midlevel Provider: Allyssa Goldstein ED Provider: Bryce Davenport Dx/Rx/DC Orders Clinical Impression: Chronic back pain Instructions: ED Back Care Tips Prescriptions: No Action multivitamin [Daily Multi-Vitamin] Tablet 1 tab PO DAILY Trulicity 0.75 mg/0.5 mL pen injector 4.5 mg subcut QWEEK Rx Instructions: stop Januvia dapagliflozin propanediol [Farxiga] 10 mg tablet 10 mg PO QDAY gabapentin 600 mg tablet 600 mg PO QDAY metformin 500 mg tablet 500 mg PO BID tramadol 50 mg tablet 50 mg PO TID PRN diphenoxylate-atropine 2.5-0.025 mg tablet PO benzonatate 200 mg capsule 200 mg PO TID betamethasone dipropionate 0.05 % cream 1 applic topical BID PRN clobetasol 0.05 % cream 1 applic topical BID nystatin 100,000 unit/gram powder 1 applic topical DAILY potassium chloride 10 mEq tablet extended release 10 meq PO BID cholecalciferol (vitamin D3) 50 mcg (2,000 unit) capsule 50 mcg PO DAILY loratadine [Allergy Relief (loratadine)] 10 mg tablet 10 mg PO DAILY omeprazole 20 MG capsule 20 mg PO DAILY Patient Comments: GASTRIC REFLUX amlodipine [Norvasc] 10 MG tablet 10 mg PO DAILY Patient Comments: high blood pressure Eliquis 5 MG tablet 5 mg PO BID Patient Comments: start eliquis on 10/23/2016 atorvastatin 80 MG tablet 80 mg PO QHS 0RF lisinopril 40 MG tablet 40 mg PO DAILY 0RF carvedilol 12.5 mg tablet 12.5 mg PO BID glipizide 10 mg tablet 10 mg PO BID ondansetron 4 mg tablet,disintegrating 4 mg PO Q8H PRN PRN (Reason: Nausea) Qty: 10 0RF cholecalciferol (vitamin D3) 50 mcg (2,000 unit) capsule 50 mcg PO DAILY ondansetron 4 mg tablet,disintegrating 4 mg PO Q8H PRN PRN (Reason: Nausea) Qty: 10 0RF pioglitazone 15 mg tablet 15 mg PO DAILY Qty: 30 3RF Primary Care Provider: Dennis Pelayo Referrals: Dennis Pelayo DO [Primary Care Provider] - 3-5 Days Activity Restrictions/Additional Instructions: Follow-up with your PCP and return for any worsening of your symptoms. Print Language: Cook Islander Disposition Disposition: Home, Self Care Discharge Date/Time: 02/14/24 20:22
[2024-02-14 20:20] VITALS: BP 123/68; PULSE 95; RESP 18; TEMP 36.4; O2SAT 97
== END 2024-02-14 20:22 | disposition home or self-care (01) ==
PROVIDERS: Emergency Provider Emergency Medicine; PCP Family Medicine; Visit Provider Emergency Medicine
DX: M54.9 Dorsalgia, unspecified (principal); I48.91 Unspecified atrial fibrillation; E11.9 Type 2 diabetes mellitus without complications; Z87.891 Personal history of nicotine dependence; G89.29 Other chronic pain; E78.5 Hyperlipidemia, unspecified; I10 Essential (primary) hypertension; Z86.73 Personal history of transient ischemic attack (TIA), and cerebral infarction without residual deficits; K21.9 Gastro-esophageal reflux disease without esophagitis; Z79.899 Other long term (current) drug therapy; Z79.01 Long term (current) use of anticoagulants; Z79.84 Long term (current) use of oral hypoglycemic drugs; Z79.85 Long-term (current) use of injectable non-insulin antidiabetic drugs; Z90.710 Acquired absence of both cervix and uterus
CPT/HCPCS: 72110; 99282

== ENCOUNTER 2024-02-20 21:24 | Emergency (ER) | payer MEDICARE, MEDICAID, SELFPAY ==
[2024-02-20 21:26] VITALS: BP 123/75; PULSE 62; RESP 16; TEMP 36.4; O2SAT 100; BMI 37.6
--- NOTE | 2024-02-20 21:34 | EDS_ITS ---
HPI HPI - GI History of Present Illness Chief Complaint: Abd Pain Narrative Narrative: 68-year-old female presenting with nausea. She states she has not vomited. She states that it started after dinner when she ate very potato and a pork chop. Patient has not had diarrhea or constipation. She has some abdominal cramping but no macario pain. Patient denies urinary complaints. No chest pain or shortness of breath. [facility] Medical History Obesity Ambulates with cane Stroke/cerebrovascular accident Difficulty in walking Poor historian Recurrent incisional hernia with incarceration Incarcerated ventral hernia Obstructive sleep apnea Atrial fibrillation Intraventricular hemorrhage Embolic stroke GERD (gastroesophageal reflux disease) Obesity (BMI 30-39.9) Hyperlipidemia Hypertension Diabetes mellitus Home Medications ?Medication ?Instructions ?Recorded ?Last Taken ?Type omeprazole 20 mg capsule,delayed 20 mg PO DAILY GERd 05/29/14 02/23/21 History release amlodipine 10 mg tablet (Norvasc) 10 mg PO DAILY HTN 10/04/16 02/23/21 History apixaban 5 mg tablet (Eliquis) 5 mg PO BID blood thinner 10/04/16 12/26/21 History atorvastatin 80 mg tablet 80 mg PO QHS 10/25/16 02/23/21 Rx lisinopril 40 mg tablet 40 mg PO DAILY 10/25/16 02/23/21 Rx carvedilol 12.5 mg tablet 12.5 mg PO BID HTN 01/23/21 02/23/21 History multivitamin (Daily Multi-Vitamin 1 tab PO DAILY 03/10/22 Unknown History tablet) pioglitazone 15 mg tablet 15 mg PO DAILY #30 tabs 10/09/22 Unknown Rx glipizide 10 mg tablet 10 mg PO BID DM 08/09/23 Unknown History cholecalciferol (vitamin D3) 50 50 mcg PO DAILY vits 09/30/23 Unknown History mcg (2,000 unit) capsule ondansetron 4 mg disintegrating 4 mg PO Q8H PRN PRN Nausea #10 tabs 11/23/23 Unknown Rx tablet benzonatate 200 mg capsule 200 mg PO TID 01/01/24 Unknown History betamethasone dipropionate 0.05 % 1 applic topical BID PRN 01/01/24 Unknown History topical cream cholecalciferol (vitamin D3) 50 50 mcg PO DAILY 01/01/24 Unknown History mcg (2,000 unit) capsule clobetasol 0.05 % topical cream 1 applic topical BID 01/01/24 Unknown History dapagliflozin propanediol 10 mg 10 mg PO QDAY 01/01/24 Unknown History tablet (Farxiga) diphenoxylate-atropine 2.5 tab PO 01/01/24 Unknown History mg-0.025 mg tablet dulaglutide 0.75 mg/0.5 mL 4.5 mg subcut QWEEK 01/01/24 Unknown History subcutaneous pen injector (Trulicity) gabapentin 600 mg tablet 600 mg PO QDAY 01/01/24 Unknown History loratadine 10 mg tablet (Allergy 10 mg PO DAILY 01/01/24 Unknown History Relief (loratadine)) metformin 500 mg tablet 500 mg PO BID 01/01/24 Unknown History nystatin 100,000 unit/gram topical 1 applic topical DAILY 01/01/24 Unknown History powder potassium chloride 10 mEq 10 meq PO BID 01/01/24 Unknown History tablet,extended release tramadol 50 mg tablet 50 mg PO TID PRN 01/01/24 Unknown History ondansetron 4 mg disintegrating 4 mg PO Q8H PRN PRN Nausea #10 tabs 02/10/24 Unknown Rx tablet ondansetron 4 mg disintegrating 4 mg PO Q8H PRN PRN Nausea #14 tabs 02/20/24 Unknown Rx tablet Allergy/AdvReac Type Severity Reaction Status Date / Time iodine Allergy Mild Itching Verified 02/20/24 21:25 Penicillins Allergy Mild Itching Verified 02/20/24 21:25 Family History Father CVA (cerebral vascular accident) Mother Diabetes Stomach cancer Other High cholesterol Hypertension Surgical History Hx of colonoscopy Status post debridement History of hysterectomy S/P repair of ventral hernia Social History household members: none Smoking Status: Former smoker alcohol intake: never substance use type: does not use what type of physical activity do you participate in: walking frequency: daily ROS ROS ED Constitutional Constitutional ED: Denies chills, fever(s) or sweats Eyes Eyes: Denies blurry vision or change in vision ENT ENT ED: Denies ear pain or sore throat Cardiovascular Cardiovascular: Denies chest pain, palpitations or racing heartbeat Respiratory/Chest Respiratory/Chest: Denies cough, dyspnea or sputum Gastrointestinal Gastrointestinal: Reports nausea; Denies abdominal pain, constipation, diarrhea or vomiting Genitourinary Genitourinary ED: Denies dysuria, hematuria or urinary frequency Musculoskeletal Musculoskeletal: Denies arthralgias, myalgias or neck pain Integumentary Denies abscess, Abrasions or rash Neurologic Neurologic: Denies headache(s), paresthesias or weakness Psychiatric Psychiatric: Denies anxiety, depression, suicidal ideation or suicidal thoughts Endocrine Endocrinology: Denies polydipsia or polyuria EXAM Physical Exam Const Vital Signs: 02/20/24 21:26 Temperature 97.6 F L Temperature Source Temporal Pulse Rate 62 Respiratory Rate 16 Blood Pressure 123/75 H Blood Pressure Mean 91 Pulse Ox 100 Oxygen Delivery Method Room Air Positive well nourished General Appearance ED: NAD; Negative for pallor HEENT Reports moist mucous membranes normocephalic and atraumatic Resp normal respiratory effort and clear to auscultation bilaterally Auscultation: Negative for rales, rhonchi or wheezes Cardio regular rate and regular rhythm GI non-tender, non-distended and no masses Palpation: soft Neuro CN's II-XII intact bilaterally Sensorium / Orientation: alert Motor Exam: strength 5/5 throughout Psych mental status grossly normal Skin General Skin Exam: Negative for jaundice or pallor MDM MDM MDM Narrative Medical decision making narrative: Patient presenting with nausea. She is denying that she has pain except for some cramping. Differential includes food poisoning, GERD, gastritis, pancreatitis, colitis. CBC will be obtained to assess white blood cell count, hemoglobin, platelets. CMP to assess renal function, electrolytes, liver function, glucose. Lipase to assess for pancreatitis. Urinalysis to assess for UTI. Patient medicated with Zofran CBC shows normal white blood cell count of 25. Hemoglobin 12.3. Platelets 1. Renal function is at baseline. Electrolytes are normal. LFTs are normal. Lipase slightly elevated 86, consistent with pancreatitis.. On reevaluation the patient is feeling much better. I will send her home with Zofran. Return precautions discussed. Impression: 1. nausea Lab Data Attestation: I reviewed the patient's lab results. Labs: Laboratory Results - last 24 hr 02/20/24 21:49 WBC 6.5 RBC 5.06 Hgb 12.2 Hct 41.2 MCV 81.4 MCH 24.1 L MCHC 29.6 L RDW Std Deviation 50.3 H RDW Coeff of Faby 17.1 H Plt Count 221 MPV 9.0 Immature Gran % (Auto) 0.500 Neut % (Auto) 61.4 Lymph % (Auto) 25.7 [place] % (Auto) 9.9 Eos % (Auto) 1.9 Baso % (Auto) 0.6 Absolute Neuts (auto) 4.0 Absolute Lymphs (auto) 1.66 Nucleated RBC % 0 Sodium 138 Potassium 4.3 Chloride 105 Carbon Dioxide 31.0 Anion Gap 2 L BUN 18 Creatinine 1.24 H Estim Creat Clear Calc 52.66 Est GFR (MDRD) Af Amer 55 L Est GFR (MDRD) Non-Af 46 L BUN/Creatinine Ratio 14.5 Glucose 114 H Calcium 10.2 H Total Bilirubin 0.40 AST 20 ALT 22 Alkaline Phosphatase 109 Total Protein 7.5 Albumin 2.8 L Globulin 4.7 H Albumin/Globulin Ratio 0.6 L Lipase 86 H Discharge Plan Triage Chief Complaint: Abd Pain ED Provider: Horace Anton Dx/Rx/DC Orders Instructions: ED Vomiting (Adult) Prescriptions: New ondansetron 4 mg tablet,disintegrating 4 mg PO Q8H PRN PRN (Reason: Nausea) Qty: 14 0RF No Action multivitamin [Daily Multi-Vitamin] Tablet 1 tab PO DAILY Trulicity 0.75 mg/0.5 mL pen injector 4.5 mg subcut QWEEK Rx Instructions: stop Januvia dapagliflozin propanediol [Farxiga] 10 mg tablet 10 mg PO QDAY gabapentin 600 mg tablet 600 mg PO QDAY metformin 500 mg tablet 500 mg PO BID tramadol 50 mg tablet 50 mg PO TID PRN diphenoxylate-atropine 2.5-0.025 mg tablet PO benzonatate 200 mg capsule 200 mg PO TID betamethasone dipropionate 0.05 % cream 1 applic topical BID PRN clobetasol 0.05 % cream 1 applic topical BID nystatin 100,000 unit/gram powder 1 applic topical DAILY potassium chloride 10 mEq tablet extended release 10 meq PO BID cholecalciferol (vitamin D3) 50 mcg (2,000 unit) capsule 50 mcg PO DAILY loratadine [Allergy Relief (loratadine)] 10 mg tablet 10 mg PO DAILY omeprazole 20 MG capsule 20 mg PO DAILY Patient Comments: GASTRIC REFLUX amlodipine [Norvasc] 10 MG tablet 10 mg PO DAILY Patient Comments: high blood pressure Eliquis 5 MG tablet 5 mg PO BID Patient Comments: start eliquis on 10/23/2016 atorvastatin 80 MG tablet 80 mg PO QHS 0RF lisinopril 40 MG tablet 40 mg PO DAILY 0RF carvedilol 12.5 mg tablet 12.5 mg PO BID glipizide 10 mg tablet 10 mg PO BID ondansetron 4 mg tablet,disintegrating 4 mg PO Q8H PRN PRN (Reason: Nausea) Qty: 10 0RF cholecalciferol (vitamin D3) 50 mcg (2,000 unit) capsule 50 mcg PO DAILY ondansetron 4 mg tablet,disintegrating 4 mg PO Q8H PRN PRN (Reason: Nausea) Qty: 10 0RF pioglitazone 15 mg tablet 15 mg PO DAILY Qty: 30 3RF Primary Care Provider: Dennis Pelayo Referrals: Dennis Pelayo DO [Primary Care Provider] - Print Language: Albanian Disposition Disposition: Home, Self Care
[2024-02-20 21:56] LABS: Absolute Lymphocyte Count 1.66 X10^3/uL (0.83-4.51); Basophil# 0.04 X10^3/uL; Basophil% 0.6 % (0-1); Eosinophil# 0.12 X10^3/uL; Eosinophils% 1.9 % (0-5); Hematocrit 41.2 % (37-47); Hemoglobin 12.2 g/dL (12.0-15.0); Lymphocyte # 1.66 X10^3/ul (0.83-4.51); Lymphocyte % 25.7 % (19-41); Mean Corp Hgb Conc 29.6 g/dL (32-36); Mean Corpuscular Hgb 24.1 pg (27.0-32.0); Mean Corpuscular Volume 81.4 fL (81-99); Monocyte# 0.64 X10^3/uL; Monocyte% 9.9 % (0-10); NRBC Flagged by Analyzer 0 % (0-5); Neutrophil # 3.97 X10^3/uL (2.7-7.7); Neutrophil % 61.4 % (47-70); Platelet Count 221 K/mm3 (150-450); RBC Distribution Width CV 17.1 % (11.6-14.6); RBC Distribution Width SD 50.3 fl (35.1-43.9); Red Blood Count 5.06 M/mm3 (4.2-5.4); White Blood Count 6.5 K/mm3 (4.4-11.0)
[2024-02-20] MEDS: Ondansetron 4 MG/2 ML Vial IV (21:57)
[2024-02-20 22:16] LABS: ALB/GLOB Ratio 0.6 RATIO (0.9-2.4); AST(SGOT) 20 U/L (15-37); Alanine Aminotransfer ALT/SGPT 22 U/L (13-56); Albumin, Serum 2.8 g/dL (3.2-5.0); Alkaline Phosphatase 109 U/L (45-117); Anion Gap 2 (5-15); BUN 18 mg/dL (7-18); BUN/Creat Ratio 14.5 RATIO (10-20); Calcium,Total 10.2 mg/dL (8.5-10.1); Chloride 105 mmol/L (98-107); Creatinine, Serum 1.24 mg/dL (0.55-1.02); EST Glomerular Filtration Rate 46 mL/min (>60); Est Glom Filt Rate - Afr Amer 55 mL/min (>60); Estimated Creatinine Clearance 52.66 ml/min; Globulin 4.7 g/dL (2.2-4.2); Glucose 114 mg/dL (74-106); Lipase 86 U/L (13-75); Potassium 4.3 mmol/L (3.5-5.1); Protein, Total 7.5 g/dL (6.4-8.2); Sodium Level 138 mmol/L (136-145)
[2024-02-20 22:24] VITALS: BP 133/70; PULSE 67; RESP 16; TEMP 36.6; O2SAT 100
--- NOTE | 2024-02-20 22:56 | ED.RN ---
THE PATIENT DECIDED TO CALL 911 FOR A RIDE HOME, PRIOR TO FORMAL DISCHARGE INSTRUCTIONS, AND DISPATCH SENT POLICE TO TAKE PATIENT HOME.
== END 2024-02-20 22:57 | disposition home or self-care (01) ==
PROVIDERS: Emergency Provider Student in an Organized Health Care Education/Training Program; PCP Family Medicine; Visit Provider Student in an Organized Health Care Education/Training Program
DX: R11.0 Nausea (principal); E11.9 Type 2 diabetes mellitus without complications; Z79.84 Long term (current) use of oral hypoglycemic drugs; E78.5 Hyperlipidemia, unspecified; Z87.891 Personal history of nicotine dependence; I10 Essential (primary) hypertension; Z86.73 Personal history of transient ischemic attack (TIA), and cerebral infarction without residual deficits; K21.9 Gastro-esophageal reflux disease without esophagitis; Z79.899 Other long term (current) drug therapy; Z79.01 Long term (current) use of anticoagulants; Z79.85 Long-term (current) use of injectable non-insulin antidiabetic drugs; Z90.710 Acquired absence of both cervix and uterus
CPT/HCPCS: 80053; 83690; 85025; 99283; J2405

== ENCOUNTER 2024-02-26 18:30 | Emergency (ER) | payer MEDICARE, MEDICAID, SELFPAY ==
[2024-02-26 18:33] VITALS: BP 132/60; PULSE 102; RESP 18; TEMP 36.9; O2SAT 96; BMI 40.5
--- NOTE | 2024-02-26 18:50 | ED.VIS.BACK ---
HPI History of Present Illness Chief Complaint: Back Informant: patient Onset/Context/Timing Onset: Today Context: Sudden Onset Timing: Continuous Quality: Aching Location: Lumbar Worsened by: improves with Nothing Relieved by: Nothing Associated Symptoms Associated Symptoms: Abdominal Pain; Negative for Numbness, Tingling, Radiation to Right Leg, Radiation to Left Leg, Fever, Dysuria, Unable to Ambulate, Unable to Transfer, Urinary Retention, Urinary Incontinence, Constipation or Fecal Incontinence Narrative Narrative: Patient presents with back pain that began today. Patient states she has a history of prior back pain. Patient states she does not see a pain management physician for this however. Patient states her pain is aching. Patient states it is over the lower lumbar area. Patient states nothing makes it better and nothing makes it worse. Patient denies any radiation of the pain to her lower extremities. Patient denies any paresthesias or weakness. Patient states her pain does radiate into her abdomen. Patient denies any nausea or vomiting however. Patient denies any fevers or chills. Patient denies any bowel or bladder changes. Patient denies any saddle anesthesia. [facility] Medical History Obesity Ambulates with cane Stroke/cerebrovascular accident Difficulty in walking Poor historian Recurrent incisional hernia with incarceration Incarcerated ventral hernia Obstructive sleep apnea Atrial fibrillation Intraventricular hemorrhage Embolic stroke GERD (gastroesophageal reflux disease) Obesity (BMI 30-39.9) Hyperlipidemia Hypertension Diabetes mellitus Home Medications ?Medication ?Instructions ?Recorded ?Last Taken ?Type omeprazole 20 mg capsule,delayed 20 mg PO DAILY GERd 05/29/14 02/23/21 History release amlodipine 10 mg tablet (Norvasc) 10 mg PO DAILY HTN 10/04/16 02/23/21 History apixaban 5 mg tablet (Eliquis) 5 mg PO BID blood thinner 10/04/16 12/26/21 History atorvastatin 80 mg tablet 80 mg PO QHS 10/25/16 02/23/21 Rx lisinopril 40 mg tablet 40 mg PO DAILY 10/25/16 02/23/21 Rx carvedilol 12.5 mg tablet 12.5 mg PO BID HTN 01/23/21 02/23/21 History multivitamin (Daily Multi-Vitamin 1 tab PO DAILY 03/10/22 Unknown History tablet) pioglitazone 15 mg tablet 15 mg PO DAILY #30 tabs 10/09/22 Unknown Rx glipizide 10 mg tablet 10 mg PO BID DM 08/09/23 Unknown History cholecalciferol (vitamin D3) 50 50 mcg PO DAILY vits 09/30/23 Unknown History mcg (2,000 unit) capsule ondansetron 4 mg disintegrating 4 mg PO Q8H PRN PRN Nausea #10 tabs 11/23/23 Unknown Rx tablet benzonatate 200 mg capsule 200 mg PO TID 01/01/24 Unknown History betamethasone dipropionate 0.05 % 1 applic topical BID PRN 01/01/24 Unknown History topical cream cholecalciferol (vitamin D3) 50 50 mcg PO DAILY 01/01/24 Unknown History mcg (2,000 unit) capsule clobetasol 0.05 % topical cream 1 applic topical BID 01/01/24 Unknown History dapagliflozin propanediol 10 mg 10 mg PO QDAY 01/01/24 Unknown History tablet (Farxiga) diphenoxylate-atropine 2.5 tab PO 01/01/24 Unknown History mg-0.025 mg tablet dulaglutide 0.75 mg/0.5 mL 4.5 mg subcut QWEEK 01/01/24 Unknown History subcutaneous pen injector (Trulicity) gabapentin 600 mg tablet 600 mg PO QDAY 01/01/24 Unknown History loratadine 10 mg tablet (Allergy 10 mg PO DAILY 01/01/24 Unknown History Relief (loratadine)) metformin 500 mg tablet 500 mg PO BID 01/01/24 Unknown History nystatin 100,000 unit/gram topical 1 applic topical DAILY 01/01/24 Unknown History powder potassium chloride 10 mEq 10 meq PO BID 01/01/24 Unknown History tablet,extended release ondansetron 4 mg disintegrating 4 mg PO Q8H PRN PRN Nausea #10 tabs 02/10/24 Unknown Rx tablet ondansetron 4 mg disintegrating 4 mg PO Q8H PRN PRN Nausea #14 tabs 02/20/24 Unknown Rx tablet tramadol 50 mg tablet 50 mg PO TID PRN pain #15 tabs 02/26/24 Unknown Rx Allergy/AdvReac Type Severity Reaction Status Date / Time iodine Allergy Mild Itching Verified 02/20/24 21:25 Penicillins Allergy Mild Itching Verified 02/20/24 21:25 Family History Father CVA (cerebral vascular accident) Mother Diabetes Stomach cancer Other High cholesterol Hypertension Surgical History Hx of colonoscopy Status post debridement History of hysterectomy S/P repair of ventral hernia Social History household members: none Smoking Status: Former smoker alcohol intake: never substance use type: does not use what type of physical activity do you participate in: walking frequency: daily ROS ROS ED Constitutional Constitutional ED: Denies chills or fever(s) Eyes Eyes: Denies blurry vision or change in vision ENT ENT ED: Reports rhinorrhea; Denies sore throat Cardiovascular Cardiovascular: Denies chest pain or palpitations Respiratory/Chest Respiratory/Chest: Denies cough or dyspnea Gastrointestinal Gastrointestinal: Denies nausea or vomiting Genitourinary Genitourinary ED: Denies dysuria or hematuria Musculoskeletal Musculoskeletal: Reports back pain; Denies neck pain Integumentary Reports rash; Denies abscess Neurologic Neurologic: Denies headache(s) or weakness Allergic/Immunologic Allergic/Immunologic ED: Denies mouth swelling or urticaria EXAM Physical Exam Const Vital Signs: 02/26/24 18:33 Temperature 98.4 F Temperature Source Oral Pulse Rate 102 H Respiratory Rate 18 Blood Pressure 132/60 H Blood Pressure Mean 84 Pulse Ox 96 Oxygen Delivery Method Room Air Positive well nourished, well developed and obese General Appearance ED: well developed and NAD Nutritional Appearance: obese HEENT Reports moist mucous membranes Neck supple and no JVD Back/Spine normal to inspection Back/Spine Narrative: There is mild tenderness over the lumbar spine and paraspinal muscles. There is no bony crepitance or step-off noted. Range of motion was slightly limited in all motions of the lumbar spine secondary to pain. Strength is 5/5 bilaterally in the lower extremities. There are no sensory deficits noted. Straight leg raises were negative bilaterally. Lumbar Spine / Lower Back: ROM limited and straight leg raise negative bilaterally Neuro oriented x3 and no sensory deficits noted Sensorium / Orientation: alert Motor Exam: strength 5/5 throughout Psych mental status grossly normal MDM MDM MDM Narrative Medical decision making narrative: Patient was advised that this is most likely muscular strain. Patient was given a dose of tramadol here. Patient was given a prescription for a short course of tramadol. Patient was instructed to follow-up with her primary care physician in 3 to 5 days for further evaluation. Patient understood and was agreeable with the plan. All questions were answered. Discharge Plan Triage Chief Complaint: Back ED Provider: Bryce Davenport Dx/Rx/DC Orders Clinical Impression: Acute lumbosacral myofascial strain, Hypertension Instructions: ED Back Sprain/Strain Prescriptions: Continued tramadol 50 mg tablet 50 mg PO TID PRN (Reason: pain) Qty: 15 0RF No Action multivitamin [Daily Multi-Vitamin] Tablet 1 tab PO DAILY Trulicity 0.75 mg/0.5 mL pen injector 4.5 mg subcut QWEEK Rx Instructions: stop Januvia dapagliflozin propanediol [Farxiga] 10 mg tablet 10 mg PO QDAY gabapentin 600 mg tablet 600 mg PO QDAY metformin 500 mg tablet 500 mg PO BID diphenoxylate-atropine 2.5-0.025 mg tablet PO benzonatate 200 mg capsule 200 mg PO TID betamethasone dipropionate 0.05 % cream 1 applic topical BID PRN clobetasol 0.05 % cream 1 applic topical BID nystatin 100,000 unit/gram powder 1 applic topical DAILY potassium chloride 10 mEq tablet extended release 10 meq PO BID cholecalciferol (vitamin D3) 50 mcg (2,000 unit) capsule 50 mcg PO DAILY loratadine [Allergy Relief (loratadine)] 10 mg tablet 10 mg PO DAILY omeprazole 20 MG capsule 20 mg PO DAILY Patient Comments: GASTRIC REFLUX amlodipine [Norvasc] 10 MG tablet 10 mg PO DAILY Patient Comments: high blood pressure Eliquis 5 MG tablet 5 mg PO BID Patient Comments: start eliquis on 10/23/2016 atorvastatin 80 MG tablet 80 mg PO QHS 0RF lisinopril 40 MG tablet 40 mg PO DAILY 0RF carvedilol 12.5 mg tablet 12.5 mg PO BID glipizide 10 mg tablet 10 mg PO BID ondansetron 4 mg tablet,disintegrating 4 mg PO Q8H PRN PRN (Reason: Nausea) Qty: 10 0RF ondansetron 4 mg tablet,disintegrating 4 mg PO Q8H PRN PRN (Reason: Nausea) Qty: 14 0RF cholecalciferol (vitamin D3) 50 mcg (2,000 unit) capsule 50 mcg PO DAILY ondansetron 4 mg tablet,disintegrating 4 mg PO Q8H PRN PRN (Reason: Nausea) Qty: 10 0RF pioglitazone 15 mg tablet 15 mg PO DAILY Qty: 30 3RF Primary Care Provider: Dennis Pelayo Referrals: Dennis Pelayo DO [Primary Care Provider] - 3-5 Days Print Language: Kazakh Disposition Disposition: Home, Self Care
[2024-02-26] MEDS: traMADol 50 MG Tablet PO (19:08)
[2024-02-26 19:18] VITALS: BP 140/59; PULSE 100; RESP 16; TEMP 36.4; O2SAT 93
== END 2024-02-26 19:23 | disposition home or self-care (01) ==
LOC: ED 19:17
PROVIDERS: Emergency Provider Emergency Medicine; PCP Family Medicine; Visit Provider Emergency Medicine
DX: S39.012A Strain of muscle, fascia and tendon of lower back, initial encounter (principal); E11.9 Type 2 diabetes mellitus without complications; Z87.891 Personal history of nicotine dependence; I10 Essential (primary) hypertension; E78.5 Hyperlipidemia, unspecified; M79.604 Pain in right leg; M79.605 Pain in left leg; E66.9 Obesity, unspecified; Z86.73 Personal history of transient ischemic attack (TIA), and cerebral infarction without residual deficits; G47.33 Obstructive sleep apnea (adult) (pediatric); X58.XXXA Exposure to other specified factors, initial encounter
CPT/HCPCS: 99282

== ENCOUNTER 2024-03-11 19:25 | Emergency (ER) | payer MEDICARE, MEDICAID, SELFPAY ==
[2024-03-11 19:25] VITALS: BP 146/76; PULSE 102; RESP 16; TEMP 36.1; O2SAT 94; BMI 40.5
--- NOTE | 2024-03-11 20:24 | ED.RN ---
Pt states you are packed and I don't want to wait anymore, I will be fine. Pt ambulates out of department without difficulty.
== END 2024-03-11 20:20 | disposition left against medical advice (07) ==
LOC: ED 20:27
PROVIDERS: PCP Family Medicine
DX: M54.9 Dorsalgia, unspecified (principal); G89.29 Other chronic pain

== ENCOUNTER 2024-03-26 18:06 | Emergency (ER) | payer MEDICARE, MEDICAID, SELFPAY ==
[2024-03-26 18:07] VITALS: BP 149/73; PULSE 102; RESP 20; TEMP 36.2; O2SAT 100; O2SAT 97
--- NOTE | 2024-03-26 18:40 | ED.VIS.DYS ---
HPI History of Present Illness Chief Complaint: Shortness of Breath Detail of Chief Complaint: Shortness of breath while eating Informant: patient Onset/Context/Timing Onset: Today (1699) Context: sudden Timing: Continuous and Waxes and wanes Quality: Negative for Dyspnea on exertion, Orthopnea, PND or Wheezing Current Severity: Mild Maximum Severity: Moderate Worsened by: Nothing Relieved by: Nothing Associated Symptoms Negative for cough, rhinorrhea, post nasal drip, ear pain, fever, sore throat, subjective, chills, sweats, clear sputum, white sputum, yellow sputum, green sputum or other Chest Pain: Positive for None Narrative Narrative: Patient is a 68-year-old woman with history of diabetes, atrial fibrillation, hyperlipidemia, hypertension, GERD, embolic stroke, intraventricular hemorrhage and obstructive sleep apnea who presents because of shortness of eating peanut butter. She denies choking or coughing. She does endorse hoarse voice. She denies fever, chills night sweats. She denies headache, visual, ocular auditory symptoms. She denies rhinorrhea, congestion postnasal drainage or sore throat. She denied history of obstructive sleep apnea. Review of prior records indicates she does have obstructive sleep apnea. She denies history of coronary disease, congestive heart failure and denies orthopnea or PND. Patient denies fever or chills. Patient endorses leg swelling. She states is chronic. She states she is post to take a water pill, but you know how it is . PE Risk Factors: Negative for Cancer, OCP + Smoking + > 35, Prior DVT or PE, Recent immobilization, Recent surgery or Recent travel Prior similar symptoms: No Recent Illness/Hospitalization: No PFSH PFSH Medical History Obesity Ambulates with cane Stroke/cerebrovascular accident Difficulty in walking Poor historian Recurrent incisional hernia with incarceration Incarcerated ventral hernia Obstructive sleep apnea Atrial fibrillation Intraventricular hemorrhage Embolic stroke GERD (gastroesophageal reflux disease) Obesity (BMI 30-39.9) Hyperlipidemia Hypertension Diabetes mellitus Home Medications ?Medication ?Instructions ?Recorded ?Last Taken ?Type omeprazole 20 mg capsule,delayed 20 mg PO DAILY GERd 05/29/14 02/23/21 History release amlodipine 10 mg tablet (Norvasc) 10 mg PO DAILY HTN 10/04/16 02/23/21 History apixaban 5 mg tablet (Eliquis) 5 mg PO BID blood thinner 10/04/16 12/26/21 History atorvastatin 80 mg tablet 80 mg PO QHS 10/25/16 02/23/21 Rx lisinopril 40 mg tablet 40 mg PO DAILY 10/25/16 02/23/21 Rx carvedilol 12.5 mg tablet 12.5 mg PO BID HTN 01/23/21 02/23/21 History multivitamin (Daily Multi-Vitamin 1 tab PO DAILY 03/10/22 Unknown History tablet) pioglitazone 15 mg tablet 15 mg PO DAILY #30 tabs 10/09/22 Unknown Rx glipizide 10 mg tablet 10 mg PO BID DM 08/09/23 Unknown History cholecalciferol (vitamin D3) 50 50 mcg PO DAILY vits 09/30/23 Unknown History mcg (2,000 unit) capsule ondansetron 4 mg disintegrating 4 mg PO Q8H PRN PRN Nausea #10 tabs 11/23/23 Unknown Rx tablet benzonatate 200 mg capsule 200 mg PO TID 01/01/24 Unknown History betamethasone dipropionate 0.05 % 1 applic topical BID PRN 01/01/24 Unknown History topical cream cholecalciferol (vitamin D3) 50 50 mcg PO DAILY 01/01/24 Unknown History mcg (2,000 unit) capsule clobetasol 0.05 % topical cream 1 applic topical BID 01/01/24 Unknown History dapagliflozin propanediol 10 mg 10 mg PO QDAY 01/01/24 Unknown History tablet (Farxiga) diphenoxylate-atropine 2.5 tab PO 01/01/24 Unknown History mg-0.025 mg tablet dulaglutide 0.75 mg/0.5 mL 4.5 mg subcut QWEEK 01/01/24 Unknown History subcutaneous pen injector (Trulicity) gabapentin 600 mg tablet 600 mg PO QDAY 01/01/24 Unknown History loratadine 10 mg tablet (Allergy 10 mg PO DAILY 01/01/24 Unknown History Relief (loratadine)) metformin 500 mg tablet 500 mg PO BID 01/01/24 Unknown History nystatin 100,000 unit/gram topical 1 applic topical DAILY 01/01/24 Unknown History powder potassium chloride 10 mEq 10 meq PO BID 01/01/24 Unknown History tablet,extended release ondansetron 4 mg disintegrating 4 mg PO Q8H PRN PRN Nausea #10 tabs 02/10/24 Unknown Rx tablet ondansetron 4 mg disintegrating 4 mg PO Q8H PRN PRN Nausea #14 tabs 02/20/24 Unknown Rx tablet tramadol 50 mg tablet 50 mg PO TID PRN pain #15 tabs 02/26/24 Unknown Rx Allergy/AdvReac Type Severity Reaction Status Date / Time iodine Allergy Mild Itching Verified 03/26/24 18:09 Penicillins Allergy Mild Itching Verified 03/26/24 18:09 Family History Father CVA (cerebral vascular accident) Mother Diabetes Stomach cancer Other High cholesterol Hypertension Surgical History Hx of colonoscopy Status post debridement History of hysterectomy S/P repair of ventral hernia Social History household members: none Smoking Status: Former smoker alcohol intake: never substance use type: does not use what type of physical activity do you participate in: walking frequency: daily ROS ROS ED Constitutional Constitutional ED: Denies chills, fever(s), sweats or weight loss Eyes Eyes: Denies blurry vision or change in vision ENT ENT ED: Denies rhinorrhea or sore throat Cardiovascular Cardiovascular: Denies chest pain, orthopnea, palpitations or paroxysmal nocturnal dyspnea Respiratory/Chest Respiratory/Chest: Reports dyspnea; Denies cough, dyspnea on exertion, orthopnea, paroxysmal nocturnal dyspnea or sputum Gastrointestinal Gastrointestinal: Denies abdominal pain, nausea or vomiting Musculoskeletal Musculoskeletal: Denies arthralgias or myalgias Integumentary Denies rash Neurologic Neurologic: Denies headache(s), paresthesias or weakness Psychiatric Psychiatric: Denies anxiety Endocrine Endocrinology: Denies cold intolerance or heat intolerance EXAM Physical Exam Const Vital Signs: 03/26/24 18:07 03/26/24 18:27 Temperature 97.2 F L Temperature Source Temporal Pulse Rate 102 H Respiratory Rate 20 H Respiratory Effort Normal Non-Labored Respiratory Depth Normal Respiratory Pattern Normal Blood Pressure 149/73 H Blood Pressure Mean 98 Pulse Ox 97 Oxygen Delivery Method Room Air Room Air Positive well nourished and well developed General Appearance ED: well developed; Negative for pallor HEENT Reports moist mucous membranes HEENT Narrative: There is no angioedema. Uvula is midline. Posterior pharynx is normal. Ears normal. Nares patent. atraumatic; Negative for tenderness Eyes PERRL and EOMs intact bilaterally General Eye ED: Negative for pale conjunctiva or scleral icterus Neck no lymphadenopathy, supple, no meningeal signs and no JVD Neck Narrative: Patient has stridor with auscultation. Her voice is hoarse. There is no submandibular or anterior cervical lymphadenopathy. Trachea is midline. Chest Wall Chest Narrative: Normal Resp normal respiratory effort and clear to auscultation bilaterally Resp Narrative: Transmission of upper airway noise noted. Auscultation: Negative for rales, rhonchi or wheezes Cardio regular rate, regular rhythm, S1 normal heart sound, S2 normal heart sound and no murmurs GI non-tender, non-distended and no masses Auscultation: normoactive bowel sounds Palpation: soft Back/Spine no CVA tenderness Extremity Extremity Narrative: There is venous stasis changes to suggest this is chronic and consistent with patient's history General Extremety ED: Yes edema General Extremity: edema Neuro oriented x3, CN's II-XII intact bilaterally and no sensory deficits noted Dianne Coma Scale: document GCS findings Spontaneous Obeys Commands Oriented 15 Sensorium / Orientation: alert Speech: speech normal Motor Exam: strength 5/5 throughout Psych mental status grossly normal Skin no wounds and skin turgor normal Skin Narrative: Venous stasis dermatitis lower legs General Skin Exam: Negative for jaundice or pallor Lesions: no lesions Rashes: no rashes MDM MDM MDM Narrative Medical decision making narrative: Patient with hoarse voice stridor need to evaluate for epiglottitis, retropharyngeal abscess, parapharyngeal abscess, vocal cord dysfunction,. Blood work and imaging is required. Patient informed he has hesitated in the room that she wants to go home. Patient is alert oriented x 3. Patient has capacity to make a medical decision which is not in her best interest. Patient understands the risks of not having appropriate testing done. Discharge Plan Triage Chief Complaint: Shortness of Breath ED Provider: Abdifatah Waterman Dx/Rx/DC Orders Clinical Impression: Biphasic stridor, Obstructive sleep apnea, Diabetes mellitus, Hypertension, Hyperlipidemia, Obesity (BMI 30-39.9), Dysphonia Prescriptions: No Action multivitamin [Daily Multi-Vitamin] Tablet 1 tab PO DAILY Trulicity 0.75 mg/0.5 mL pen injector 4.5 mg subcut QWEEK Rx Instructions: stop Januvia dapagliflozin propanediol [Farxiga] 10 mg tablet 10 mg PO QDAY gabapentin 600 mg tablet 600 mg PO QDAY metformin 500 mg tablet 500 mg PO BID diphenoxylate-atropine 2.5-0.025 mg tablet PO benzonatate 200 mg capsule 200 mg PO TID betamethasone dipropionate 0.05 % cream 1 applic topical BID PRN clobetasol 0.05 % cream 1 applic topical BID nystatin 100,000 unit/gram powder 1 applic topical DAILY potassium chloride 10 mEq tablet extended release 10 meq PO BID cholecalciferol (vitamin D3) 50 mcg (2,000 unit) capsule 50 mcg PO DAILY loratadine [Allergy Relief (loratadine)] 10 mg tablet 10 mg PO DAILY omeprazole 20 MG capsule 20 mg PO DAILY Patient Comments: GASTRIC REFLUX amlodipine [Norvasc] 10 MG tablet 10 mg PO DAILY Patient Comments: high blood pressure Eliquis 5 MG tablet 5 mg PO BID Patient Comments: start eliquis on 10/23/2016 atorvastatin 80 MG tablet 80 mg PO QHS 0RF lisinopril 40 MG tablet 40 mg PO DAILY 0RF carvedilol 12.5 mg tablet 12.5 mg PO BID glipizide 10 mg tablet 10 mg PO BID ondansetron 4 mg tablet,disintegrating 4 mg PO Q8H PRN PRN (Reason: Nausea) Qty: 10 0RF ondansetron 4 mg tablet,disintegrating 4 mg PO Q8H PRN PRN (Reason: Nausea) Qty: 14 0RF tramadol 50 mg tablet 50 mg PO TID PRN (Reason: pain) Qty: 15 0RF cholecalciferol (vitamin D3) 50 mcg (2,000 unit) capsule 50 mcg PO DAILY ondansetron 4 mg tablet,disintegrating 4 mg PO Q8H PRN PRN (Reason: Nausea) Qty: 10 0RF pioglitazone 15 mg tablet 15 mg PO DAILY Qty: 30 3RF Primary Care Provider: Dennis Pelayo Referrals: Dennis Pelaoy DO [Primary Care Provider] - As soon as possible Activity Restrictions/Additional Instructions: I have been informed by Dr. Wateramn does not in my best interest to leave. I understand I am leaving AGAINST MEDICAL ADVICE. I was informed by Dr. Waterman that the following complications can occur and is not limited to what is listed. I was told there is concern that might upper airway on the back of my throat to my windpipe may be narrowed due to many causes and not limited to infection, allergic reaction, neoplasm. I was informed that I need laboratory testing and advanced imaging to determine the cause of my hoarse voice and abnormal breath sounds. By me leaving I may develop complications requiring more invasive treatment and surgical intervention not limited to cricothyroidotomy, tracheostomy (surgical opening in my neck to breathe) life support, feeding tube (possibly surgical) mental, physical or emotional disability, inability to perform activities of daily living meaning able to feed myself, bathe myself, dress myself and care for myself. Seizure disorder, semivegetative to vegetative state or Print Language: Vietnamese Disposition Disposition: Against Medical Advice
== END 2024-03-26 18:58 | disposition left against medical advice (07) ==
LOC: ED 18:56
PROVIDERS: Emergency Provider Emergency Medicine; PCP Family Medicine; Visit Provider Emergency Medicine
DX: R06.02 Shortness of breath (principal); I48.91 Unspecified atrial fibrillation; E11.9 Type 2 diabetes mellitus without complications; G47.33 Obstructive sleep apnea (adult) (pediatric); E78.5 Hyperlipidemia, unspecified; I10 Essential (primary) hypertension; Z87.891 Personal history of nicotine dependence; E66.9 Obesity, unspecified; R06.1 Stridor; Z68.30 Body mass index [BMI] 30.0-30.9, adult; R49.0 Dysphonia; Z86.73 Personal history of transient ischemic attack (TIA), and cerebral infarction without residual deficits; K21.9 Gastro-esophageal reflux disease without esophagitis; Z79.899 Other long term (current) drug therapy; Z79.01 Long term (current) use of anticoagulants; Z79.84 Long term (current) use of oral hypoglycemic drugs; Z79.85 Long-term (current) use of injectable non-insulin antidiabetic drugs; Z90.710 Acquired absence of both cervix and uterus
CPT/HCPCS: 99282

== ENCOUNTER 2024-04-29 15:17 | Emergency (ER) | payer MEDICARE, MEDICAID, SELFPAY ==
[2024-04-29 15:18] VITALS: BP 132/73; PULSE 96; RESP 18; TEMP 35.5; O2SAT 98
--- NOTE | 2024-04-29 16:05 | EKG12_ITS ---
Test Reason : GENERAL Blood Pressure : / mmHG Vent. Rate : 098 BPM Atrial Rate : 098 BPM P-R Int : 152 ms QRS Dur : 068 ms QT Int : 324 ms P-R-T Axes : 060 054 059 degrees QTc Int : 413 ms Normal sinus rhythm Normal ECG Confirmed by CATHERINE GAFFNEY, BRIA ([id number]), publication editor HARVEY RODRIGUEZ ([id number]) on 05/01/2024 1:20:53 PM Referred By: Confirmed By:BRIA ALEXANDER MD
--- NOTE | 2024-04-29 16:07 | EX.ED.GENINJ ---
HPI History of Present Illness Chief Complaint: Nausea/Vomiting Narrative Narrative: Chief complaint and HPI: Abdominal pain with nausea and vomiting. 68-year-old female with history of DM, HTN, HLD, atrial fibrillation on Eliquis presents for evaluation of nausea, vomiting, abdominal pain. Onset of symptoms this morning. Patient states that she has had multiple episodes of nonbilious nonbloody emesis. She endorses diffuse abdominal pain. Denies any fever, chills, shortness of breath, chest pain, diarrhea, constipation. Denies any sick contacts. Review of systems: See HPI Medications: As listed on the chart Allergies: As listed on the chart PFSH: Per chart Vital signs: As listed on the chart. Reviewed. Physical exam: Gen: A&O x3, NAD Head: Normocephalic, atraumatic Eyes: No sclera icterus, conjunctiva clear ENT: Dry mucous membranes Neck: Trachea midline, No JVD CV: RRR, no murmurs, mild nonpitting peripheral edema Resp: Lungs CTA BL, no w/r/c GI: Abd soft, non-distended, tender diffuse, no r/r/g Musc: Full ROM, no deformity Skin: Warm, dry Neuro: Alert, oriented, grossly intact, sensation intact Psych: Cooperative, appropriate mood and affect [facility] Medical History (Updated 04/29/24 @ 19:[address] Ishmael Souza, ) Wears glasses Former smoker Obesity Ambulates with cane Stroke/cerebrovascular accident Difficulty in walking Poor historian Recurrent incisional hernia with incarceration Incarcerated ventral hernia Obstructive sleep apnea Atrial fibrillation Intraventricular hemorrhage Embolic stroke GERD (gastroesophageal reflux disease) Obesity (BMI 30-39.9) Hyperlipidemia Hypertension Diabetes mellitus Home Medications ?Medication ?Instructions ?Recorded ?Last Taken ?Type omeprazole 20 mg capsule,delayed 20 mg PO DAILY GERd 05/29/14 02/23/21 History release amlodipine 10 mg tablet (Norvasc) 10 mg PO DAILY HTN 10/04/16 02/23/21 History apixaban 5 mg tablet (Eliquis) 5 mg PO BID blood thinner 10/04/16 12/26/21 History atorvastatin 80 mg tablet 80 mg PO QHS 10/25/16 02/23/21 Rx lisinopril 40 mg tablet 40 mg PO DAILY 10/25/16 02/23/21 Rx carvedilol 12.5 mg tablet 12.5 mg PO BID HTN 01/23/21 02/23/21 History pioglitazone 15 mg tablet 15 mg PO DAILY #30 tabs 10/09/22 Unknown Rx glipizide 10 mg tablet 10 mg PO BID DM 08/09/23 Unknown History benzonatate 200 mg capsule 200 mg PO TID 01/01/24 Unknown History betamethasone dipropionate 0.05 % 1 applic topical BID PRN skin 01/01/24 Unknown History topical cream irritation clobetasol 0.05 % topical cream 1 applic topical BID 01/01/24 Unknown History dapagliflozin propanediol 10 mg 10 mg PO QDAY 01/01/24 Unknown History tablet (Farxiga) diphenoxylate-atropine 2.5 1 tab PO Q8H PRN diarrhea 01/01/24 Unknown History mg-0.025 mg tablet dulaglutide 0.75 mg/0.5 mL 4.5 mg subcut QWEEK 01/01/24 04/09/24 History subcutaneous pen injector (Trulicity) gabapentin 600 mg tablet 600 mg PO QDAY 01/01/24 Unknown History loratadine 10 mg tablet (Allergy 10 mg PO DAILY 01/01/24 Unknown History Relief (loratadine)) metformin 500 mg tablet 500 mg PO BID 01/01/24 Unknown History potassium chloride 10 mEq 10 meq PO BID 01/01/24 Unknown History tablet,extended release ondansetron 4 mg disintegrating 4 mg PO Q8H PRN PRN Nausea #14 tabs 02/20/24 Unknown Rx tablet tramadol 50 mg tablet 50 mg PO TID PRN pain #15 tabs 02/26/24 Unknown Rx Allergy/AdvReac Type Severity Reaction Status Date / Time iodine Allergy Mild Itching Verified 04/10/24 14:55 Penicillins Allergy Mild Itching Verified 04/10/24 14:55 Family History Father CVA (cerebral vascular accident) Mother Diabetes Stomach cancer Other High cholesterol Hypertension Surgical History Hx of colonoscopy Status post debridement History of hysterectomy S/P repair of ventral hernia Social History household members: none Smoking Status: Former smoker alcohol intake: never substance use type: does not use what type of physical activity do you participate in: walking frequency: daily EXAM Physical Exam Const Vital Signs: 04/29/24 15:18 04/29/24 17:17 04/29/24 18:50 Temperature 96 F L Temperature Source Temporal Pulse Rate 96 105 H 96 Respiratory Rate 18 18 15 Blood Pressure 132/73 H 137/88 H 127/72 H Blood Pressure Mean 92 104 90 Pulse Ox 98 95 98 Oxygen Delivery Method Room Air Room Air Room Air 04/29/24 19:23 Temperature 97.8 F Temperature Source Pulse Rate 98 Respiratory Rate 18 Blood Pressure 112/66 Blood Pressure Mean 81 Pulse Ox 97 Oxygen Delivery Method MDM MDM MDM Narrative Medical decision making narrative: 68-year-old female with atrial fibrillation on Eliquis, DM, HTN, HLD presents for evaluation abdominal plain, nausea, vomiting. Differential diagnosis includes but is not limited to UTI, electrolyte abnormality, viral illness, pancreatitis, cholecystitis, diverticulitis, UTI. NS bolus, morphine, Zofran ordered for symptoms. Abdominal pain workup ordered including CT abdomen pelvis. Patient has itching with iodine therefore Benadryl ordered. CBC without leukocytosis or anemia. CMP without electrolyte abnormality or JEANNE. Patient does have elevated alk phos at 139 however she has had this previously in the past. Lipase unremarkable. Troponin unremarkable. No transaminitis. CT abdomen pelvis shows complex right renal cyst which is increased in size slightly since prior study. Diverticulosis without diverticulitis. Patient did not urinate while in the emergency department therefore I cannot fully rule out UTI however patient has no leukocytosis. On reexamination, her symptoms are improved. She has not had any vomiting in the emergency department. Suspect that symptoms are likely viral in nature. Patient was educated to follow-up with her PCP. Return precautions were explained. She was educated on all her results. She was told to follow-up about her renal cyst. She confirmed understand the plan. EKG: Interpreted by me/EM physician: EKG shows normal sinus rhythm without acute ischemic changes. Heart rate 90 Impression: 1. Abdominal pain 2. Nausea and vomiting 3. Suspect viral syndrome 4. Complex right renal cyst seen on prior imaging Lab Data Labs: Laboratory Results - last 24 hr 04/29/24 04/29/24 16:36 18:48 WBC 5.2 RBC 5.51 H Hgb 13.0 Hct 43.4 MCV 78.8 L MCH 23.6 L MCHC 30.0 L RDW Std Deviation 49.3 H RDW Coeff of Faby 18.5 H Plt Count 236 MPV 9.1 Immature Gran % (Auto) 0.600 Neut % (Auto) 64.6 Lymph % (Auto) 24.2 Kingfisher % (Auto) 7.7 Eos % (Auto) 1.9 Baso % (Auto) 1.0 Absolute Neuts (auto) 3.3 Absolute Lymphs (auto) 1.25 Nucleated RBC % 0 Sodium 137 Potassium 4.4 Chloride 105 Carbon Dioxide 29.0 Anion Gap 4 L BUN 12 Creatinine 0.84 Est GFR (MDRD) Af Amer 86 Est GFR (MDRD) Non-Af 71 BUN/Creatinine Ratio 14.3 Glucose 111 H Calcium 10.8 H Total Bilirubin 0.40 AST 32 ALT 18 Alkaline Phosphatase 139 H Troponin I High Sens 5 3 Total Protein 8.2 Albumin 3.2 Globulin 5.0 H Albumin/Globulin Ratio 0.6 L Lipase 64 Radiography Diagnostic Testing: Clinical Impression(s) from Imaging Studies Abdomen/Pelvis CT 04/29/24 17:30 IMPRESSION: Complex right renal cyst based on Hounsfield measurements which is increased in size slightly since prior study and may be further assessed with MRI Minor diverticular changes of the colon without evidence for acute diverticulitis Status post hysterectomy and rectosigmoid resection No evidence for small bowel obstruction or other acute abnormality. Electronically Signed: Wilfrido Gunter MD at 18:24 EDT Reading Location ID and State: [facility] / [place] Tel , Service support , Discharge Plan Triage Chief Complaint: Nausea/Vomiting ED Provider: Ishmael Souza Dx/Rx/DC Orders Clinical Impression: Nausea & vomiting Instructions: ED Gastroenteritis, Viral (Adult) Prescriptions: No Action Trulicity 0.75 mg/0.5 mL pen injector 4.5 mg subcut QWEEK Patient Comments: ON HOLD UNTIL AFTER SURGERY 04/16/24 Rx Instructions: stop Januvia dapagliflozin propanediol [Farxiga] 10 mg tablet 10 mg PO QDAY gabapentin 600 mg tablet 600 mg PO QDAY metformin 500 mg tablet 500 mg PO BID diphenoxylate-atropine 2.5-0.025 mg tablet 1 tab PO Q8H PRN (Reason: diarrhea) benzonatate 200 mg capsule 200 mg PO TID betamethasone dipropionate 0.05 % cream 1 applic topical BID PRN (Reason: skin irritation) clobetasol 0.05 % cream 1 applic topical BID potassium chloride 10 mEq tablet extended release 10 meq PO BID loratadine [Allergy Relief (loratadine)] 10 mg tablet 10 mg PO DAILY omeprazole 20 MG capsule 20 mg PO DAILY Patient Comments: GASTRIC REFLUX amlodipine [Norvasc] 10 MG tablet 10 mg PO DAILY Patient Comments: high blood pressure Eliquis 5 MG tablet 5 mg PO BID Patient Comments: ON HOLD 04/13 UNTIL AFTER SURGERY 04/16/24 atorvastatin 80 MG tablet 80 mg PO QHS 0RF lisinopril 40 MG tablet 40 mg PO DAILY 0RF carvedilol 12.5 mg tablet 12.5 mg PO BID glipizide 10 mg tablet 10 mg PO BID ondansetron 4 mg tablet,disintegrating 4 mg PO Q8H PRN PRN (Reason: Nausea) Qty: 14 0RF tramadol 50 mg tablet 50 mg PO TID PRN (Reason: pain) Qty: 15 0RF pioglitazone 15 mg tablet 15 mg PO DAILY Qty: 30 3RF Primary Care Provider: Dennis Pelayo Referrals: Dennis Pelayo DO [Primary Care Provider] - 3-5 Days Activity Restrictions/Additional Instructions: Complex right renal cyst. You need to follow-up with your physician for this outpatient. Print Language: Turkish Disposition Disposition: Home, Self Care Discharge Date/Time: 04/29/24 19:33
[2024-04-29] MEDS: Ondansetron 4 MG/2 ML Vial IV (16:45)
[2024-04-29] MEDS: Morphine 2 MG/ML Syringe IV (16:45)
[2024-04-29] MEDS: DiphenhydrAMINE 50 MG/ML Syringe 25 MG IV (16:45)
[2024-04-29] MEDS: 0.9% Normal Saline (1000mL) 1,000 ML 999 ML IV (16:46)
[2024-04-29 16:48] LABS: Absolute Lymphocyte Count 1.25 X10^3/uL (0.83-4.51); Absolute Neutrophil Count 3.3 X10^3/uL (2.0-7.7); Basophil# 0.05 X10^3/uL; Eosinophils% 1.9 % (0-5); Hematocrit 43.4 % (37-47); Lymphocyte # 1.25 X10^3/ul (0.83-4.51); Lymphocyte % 24.2 % (19-41); Mean Corpuscular Hgb 23.6 pg (27.0-32.0); Mean Corpuscular Volume 78.8 fL (81-99); Mean Platelet Vol. 9.1 fl (6.2-12.0); Monocyte% 7.7 % (0-10); NRBC Flagged by Analyzer 0 % (0-5); Neutrophil # 3.34 X10^3/uL (2.7-7.7); Neutrophil % 64.6 % (47-70); Platelet Count 236 K/mm3 (150-450); RBC Distribution Width CV 18.5 % (11.6-14.6); RBC Distribution Width SD 49.3 fl (35.1-43.9); Red Blood Count 5.51 M/mm3 (4.2-5.4); White Blood Count 5.2 K/mm3 (4.4-11.0)
[2024-04-29 17:05] LABS: ALB/GLOB Ratio 0.6 RATIO (0.9-2.4); AST(SGOT) 32 U/L (15-37); Alanine Aminotransfer ALT/SGPT 18 U/L (13-56); Albumin, Serum 3.2 g/dL (3.2-5.0); Alkaline Phosphatase 139 U/L (45-117); Anion Gap 4 (5-15); BUN 12 mg/dL (7-18); BUN/Creat Ratio 14.3 RATIO (10-20); Calcium,Total 10.8 mg/dL (8.5-10.1); Chloride 105 mmol/L (98-107); Creatinine, Serum 0.84 mg/dL (0.55-1.02); EST Glomerular Filtration Rate 71 mL/min (>60); Est Glom Filt Rate - Afr Amer 86 mL/min (>60); Glucose 111 mg/dL (74-106); Lipase 64 U/L (13-75); Potassium 4.4 mmol/L (3.5-5.1); Protein, Total 8.2 g/dL (6.4-8.2); Sodium Level 137 mmol/L (136-145); Troponin-I HS (w/2H Reflex) 5 pg/mL (3.0-54.0)
[2024-04-29 17:17] VITALS: BP 137/88; PULSE 105; RESP 18; O2SAT 95
--- NOTE | 2024-04-29 17:30 | CT_ITS ---
STUDY: CT ABDOMEN AND PELVIS WITH CONTRAST REASON FOR EXAM: Female, 68 years old. abdominal pain RADIATION DOSAGE (If Supplied By Facility): CTDIvol = ( 17.07 ) mGy, DLP = ( 1324.88 ) mGycm TECHNIQUE: Transaxial images were obtained from the dome of the diaphragm to the symphysis pubis without oral contrast. IV 100mL Isovue-[id number] was administered. Sagittal and coronal images were reconstructed. Individualized dose optimization techniques were used for this CT. COMPARISON: None. FINDINGS: The visualized lung bases are unremarkable. Heart size is normal and there is mild coronary artery calcification. Normal liver. Normal gallbladder and extrahepatic biliary system. Normal spleen. Atrophic fatty infiltrated pancreas Normal bilateral adrenal glands. Complex right renal cyst measuring approximately 5.02 x 4.97 cm which has increased in size since prior exam may be further assessed with MRI.. Normal left kidney. Normal visualized stomach. Normal small intestine. Minor diverticular changes of the descending and sigmoid colon without evidence for acute diverticulitis Postop change status post rectosigmoid resection.. No evidence for acute appendicitis Mild atherosclerotic change of the aorta without evidence for aneurysm. Normal inferior vena cava. Normal retroperitoneum. Normal urinary bladder. Postop change status post hysterectomy Small hernia in the right anterior pelvic wall containing loop of bowel without evidence for proximal obstruction or incarceration. Lumbar spine demonstrates degenerative change. CT/Abdomen/Pelvis W IV Cont ONLY IMPRESSION: Complex right renal cyst based on Hounsfield measurements which is increased in size slightly since prior study and may be further assessed with MRI Minor diverticular changes of the colon without evidence for acute diverticulitis Status post hysterectomy and rectosigmoid resection No evidence for small bowel obstruction or other acute abnormality. Electronically Signed: Wilfrido Gunter MD at 18:24 EDT ,
[2024-04-29 18:40] LABS: Reflex Troponin-HS? (from REC) Y
[2024-04-29 18:50] VITALS: BP 127/72; PULSE 96; RESP 15; O2SAT 98
[2024-04-29 19:23] VITALS: BP 112/66; PULSE 98; RESP 18; TEMP 36.6; O2SAT 97
[2024-04-29 19:57] LABS: Troponin-I HS 3 pg/mL (3.0-54.0)
== END 2024-04-29 19:33 | disposition home or self-care (01) ==
PROVIDERS: Emergency Provider Surgery; PCP Family Medicine; Visit Provider Surgery
DX: R11.2 Nausea with vomiting, unspecified (principal); I48.91 Unspecified atrial fibrillation; E11.9 Type 2 diabetes mellitus without complications; Z87.891 Personal history of nicotine dependence; Z90.710 Acquired absence of both cervix and uterus; E78.5 Hyperlipidemia, unspecified; I10 Essential (primary) hypertension; Z79.01 Long term (current) use of anticoagulants; Z86.73 Personal history of transient ischemic attack (TIA), and cerebral infarction without residual deficits; K21.9 Gastro-esophageal reflux disease without esophagitis; Z79.899 Other long term (current) drug therapy; Z79.84 Long term (current) use of oral hypoglycemic drugs; Z79.85 Long-term (current) use of injectable non-insulin antidiabetic drugs
CPT/HCPCS: 74177; 80053; 83690; 84484; 85025; 93005; 96361; 96374; 96375; 99283; J7030; Q9967; A4216; J2405

== ENCOUNTER 2024-05-14 09:54 | Inpatient (IN) | payer MEDICARE, MEDICAID, SELFPAY ==
[2024-05-14] VITALS (11 sets, daily range): BP systolic 93–155; BP diastolic 57–79; PULSE 95–120; RESP 18–24; TEMP 36.2–36.9; O2SAT 86–97; BMI 41.8; BMI 40.2
--- NOTE | 2024-05-14 10:04 | EDS_ITS ---
HPI History of Present Illness Chief Complaint: Nausea/Vomiting/Diarrhea Detail of Chief Complaint: Periumbilical abdominal pain with nausea, vomiting diarrhea Informant: patient Onset/Context/Timing Onset: Days (Started May 10) Context: Sudden Onset Timing: Continuous (Abdominal pain has been constant) Quality: Pain Location: Periumbilical, known history of hernia. Current Severity: Mild Maximum Severity: Moderate Worsened by: Vomiting and diarrhea Relieved by: Nothing Associated Symptoms Associated Symptoms: Nausea, vomiting diarrhea, orthostatic symptoms and thirst Narrative Narrative: Patient is a 68-year-old woman with history of uncontrolled diabetes, ventral hernia, GERD, BMI greater than 40, hypertension, atrial fibrillation and obstructive sleep apnea who presents because of periumbilical pain associated with nausea, vomiting and diarrhea. Symptoms started on April 30. She states on Sunday she vomited 3 times, twice on Sunday, once on Sunday and twice on Sunday. She has had no vomiting today. She reports multiple episodes of diarrhea on Sunday. She has had less since Sunday. She did have loose stools today. She denies hematemesis or coffee-ground emesis. She denies blood or mucus in her stool. She has not been on antibiotic recently. She denies black or maroon-colored diarrhea. Patient is not a good informant. She does have history of psoriasis. She apparently is on a immunosuppressive med for this. She denies ill contacts. She denies being on an antibiotic in the past month. There is no history of pseudomembranous colitis. Prior similar symptoms: Yes Recent Illness/Hospitalization: No [facility] Medical History Wears glasses Former smoker Obesity Ambulates with cane Stroke/cerebrovascular accident Difficulty in walking Poor historian Recurrent incisional hernia with incarceration Incarcerated ventral hernia Obstructive sleep apnea Atrial fibrillation Intraventricular hemorrhage Embolic stroke GERD (gastroesophageal reflux disease) Obesity (BMI 30-39.9) Hyperlipidemia Hypertension Diabetes mellitus Home Medications ?Medication ?Instructions ?Recorded ?Last Taken ?Type omeprazole 20 mg capsule,delayed 20 mg PO DAILY GERd 05/29/14 02/23/21 History release amlodipine 10 mg tablet (Norvasc) 10 mg PO DAILY HTN 10/04/16 02/23/21 History apixaban 5 mg tablet (Eliquis) 5 mg PO BID blood thinner 10/04/16 12/26/21 History atorvastatin 80 mg tablet 80 mg PO QHS 10/25/16 02/23/21 Rx lisinopril 40 mg tablet 40 mg PO DAILY 10/25/16 02/23/21 Rx carvedilol 12.5 mg tablet 12.5 mg PO BID HTN 01/23/21 02/23/21 History pioglitazone 15 mg tablet 15 mg PO DAILY #30 tabs 10/09/22 Unknown Rx glipizide 10 mg tablet 10 mg PO BID DM 08/09/23 Unknown History benzonatate 200 mg capsule 200 mg PO TID 01/01/24 Unknown History clobetasol 0.05 % topical cream 1 applic topical BID 01/01/24 Unknown History dapagliflozin propanediol 10 mg 10 mg PO QDAY 01/01/24 Unknown History tablet (Farxiga) diphenoxylate-atropine 2.5 1 tab PO Q8H PRN diarrhea 01/01/24 Unknown History mg-0.025 mg tablet dulaglutide 0.75 mg/0.5 mL 4.5 mg subcut QWEEK 01/01/24 04/09/24 History subcutaneous pen injector (Trulicity) gabapentin 600 mg tablet 600 mg PO QDAY 01/01/24 Unknown History loratadine 10 mg tablet (Allergy 10 mg PO DAILY 01/01/24 Unknown History Relief (loratadine)) metformin 500 mg tablet 500 mg PO BID 01/01/24 Unknown History potassium chloride 10 mEq 10 meq PO BID 01/01/24 Unknown History tablet,extended release ondansetron 4 mg disintegrating 4 mg PO Q8H PRN PRN Nausea #14 tabs 02/20/24 Unknown Rx tablet tramadol 50 mg tablet 50 mg PO TID PRN pain #15 tabs 02/26/24 Unknown Rx Allergy/AdvReac Type Severity Reaction Status Date / Time iodine Allergy Mild Itching Verified 05/14/24 10:01 Penicillins Allergy Mild Itching Verified 05/14/24 10:01 Family History Father CVA (cerebral vascular accident) Mother Diabetes Stomach cancer Other High cholesterol Hypertension Surgical History Hx of colonoscopy Status post debridement History of hysterectomy S/P repair of ventral hernia Social History household members: none Smoking Status: Former smoker alcohol intake: never substance use type: does not use what type of physical activity do you participate in: walking frequency: daily ROS ROS ED Constitutional Constitutional ED: Reports fever(s) and subjective; Denies chills, sweats or weight loss Eyes Eyes: Denies blurry vision or change in vision ENT ENT ED: Reports other Details: Endorses thirst. She denies dry mouth. ; Denies ear pain, rhinorrhea or sore throat Cardiovascular Cardiovascular: Denies chest pain or palpitations Respiratory/Chest Respiratory/Chest: Denies cough, dyspnea or dyspnea on exertion Gastrointestinal Gastrointestinal: Reports abdominal pain, diarrhea, nausea, vomiting and other Details: Pertinent detail EMR. ; Denies constipation or melena Genitourinary Genitourinary ED: Denies dysuria, hematuria or urinary frequency Musculoskeletal Musculoskeletal: Denies back pain Integumentary Reports rash Neurologic Neurologic: Reports weakness Hematologic/Lymphatic Hematologic/Lymphatic: Reports systems reviewed and no addt'l complaints, except as documented EXAM Physical Exam Const Vital Signs: 05/14/24 09:55 05/14/24 10:20 05/14/24 10:21 Temperature 98.2 F Temperature Source Oral Pulse Rate 99 Respiratory Rate 20 H Blood Pressure 93/58 L Blood Pressure Mean 69 Pulse Ox 92 89 97 Oxygen Delivery Method Room Air Room Air Nasal Cannula Oxygen Flow Rate (L/min) 2 05/14/24 12:01 05/14/24 12:02 05/14/24 12:54 Temperature 97.5 F L Temperature Source Pulse Rate 95 112 H Respiratory Rate 20 H 20 H Blood Pressure 112/57 L 129/62 H Blood Pressure Mean 75 84 Pulse Ox 86 97 93 Oxygen Delivery Method Room Air Nasal Cannula Oxygen Flow Rate (L/min) 2 Positive well nourished and well developed Constitutional Narrative: BMI greater than 40. Patient appears ill but not toxic. General Appearance ED: well developed; Negative for cyanotic, diaphoretic or pallor HEENT Reports moist mucous membranes HEENT Narrative: Head is atraumatic normocephalic. Ears normal. Nares patent. Posterior pharynx is normal. Eyes PERRL and EOMs intact bilaterally General Eye ED: Negative for pale conjunctiva or scleral icterus Neck no lymphadenopathy, supple and no JVD Chest Wall inspection of chest normal and palpation of chest normal Resp normal respiratory effort and clear to auscultation bilaterally Cardio regular rate, S1 normal heart sound, S2 normal heart sound and no murmurs GI Negative for normal to inspection, nondistended, normoactive bowel sounds, non- tender, non-distended, hepatosplenomegaly or no masses GI Narrative: Patient has a ventral supraumbilical hernia. This is tender. There is no discoloration. This is not reducible. Apparently has not been reducible for some time per patient. Exam is limited due to the fact that he has a BMI of 41.8. Auscultation: hypoactive bowel sounds Palpation: soft and tender periumbilical (Area greater tenderness over the hernia. She has diffuse tenderness, otherwise.) Back/Spine no CVA tenderness Extremity Negative for normal to inspection Extremity Narrative: Evidence of psoriasis all extremities. No evidence infection. Neuro oriented x3, CN's II-XII intact bilaterally and no sensory deficits noted Sensorium / Orientation: alert Psych mental status grossly normal Skin No no rashes or lesions noted and No skin turgor normal General Skin Exam: elasticity normal; Negative for jaundice or pallor MDM MDM MDM Narrative Medical decision making narrative: Patient is hypotensive. Suspect she is volume depleted. 1 L of normal saline was ordered. Zofran was ordered for her nausea and vomiting. Will prescribe Imodium 36 minutes after she gets Zofran. BMP was obtained to assess electrolytes and specifically evaluate for hypokalemia and evidence of acid-base disturbance i.e. anion gap since she is had significant mount of vomiting as well. CBC to assess white count differential since she is on immunosuppressive meds. History & Record Review Additional record(s) reviewed:: Prior outpatient record (Patient is on anticoagulant for chronic atrial fibrillation.), Prior ED visit and Prior labs Lab Data Attestation: I reviewed the patient's lab results. Lab results narrative: White count is normal. There is a slight shift. H&H is normal. Indices reveal a microcytic values. This is unchanged from prior. Creatinine slight elevated 1.05. BUN/creatinine ratio is less than 20-1. Estimated GFR is 55 which is lower than prior. Glucose is elevated 158 with an elevated CO2 most likely due to her obstructive sleep apnea/obesity. Anion gap is low. Labs: Laboratory Results - last 24 hr 05/14/24 10:22 WBC 9.2 RBC 5.54 H Hgb 13.2 Hct 43.5 MCV 78.5 L MCH 23.8 L MCHC 30.3 L RDW Std Deviation 50.9 H RDW Coeff of Faby 18.6 H Plt Count 238 MPV 9.2 Immature Gran % (Auto) 0.400 Neut % (Auto) 84.1 H Lymph % (Auto) 11.3 L Calhoun % (Auto) 3.4 Eos % (Auto) 0.3 Baso % (Auto) 0.5 Absolute Neuts (auto) 7.7 Absolute Lymphs (auto) 1.04 Nucleated RBC % 0 Sodium 138 Potassium 4.6 Chloride 104 Carbon Dioxide 32.0 Anion Gap 2 L BUN 20 H Creatinine 1.05 H Estim Creat Clear Calc 70.46 Est GFR (MDRD) Af Amer 67 Est GFR (MDRD) Non-Af 55 L BUN/Creatinine Ratio 19.0 Glucose 158 H Calcium 10.8 H Total Bilirubin 0.40 AST 19 ALT 19 Alkaline Phosphatase 116 Total Protein 7.5 Albumin 3.0 L Globulin 4.5 H Albumin/Globulin Ratio 0.7 L ABG Data Attestation: I personally reviewed and interpreted this ABG as follows: Interpretation: ABG reveals normal pH. Bicarb is slightly elevated. Base excess of +4. Saturation 93%. pCO2 is 48.9 which is slightly elevated. PaO2 is 69. Patient is presently on 2 L of oxygen. This would indicate an increased AA gradient. There is no acid-base disturbance and CO2 is just slightly elevated. This may be chronic. Since there is no evidence of hypercapnia and possible explanation of her hypoxia will obtain chest x-ray. In light of the fact that she has vomited several times she may have aspirated. ABG results: ABG 05/14/24 11:41 Specimen Type ART Sample Site R Radial pH 7.38 Bicarbonate Actual 28.7 H Total CO2 30 Base Excess 4 H O2 Saturation 93 L O2 % 28.0 ABG pCO2 48.9 H ABG pO2 69 L Angel Test Positive O2 Delivery Device Cannula Vent Mode Not entered Radiography Chest X-Ray - ED: 2 View and Read by ED Physician (Independently interpreted by me at 1259 as unremarkable. Suboptimal since there is poor inspiratory volume. Cardiac silhouette is normal. There may be borderline cardiomegaly. There is no obvious infiltrate or effusion. Hilum is unremarkable. Osseous structures are unremarkable.) Treatment and Re-Evaluation :: I was informed by nursing staff that patient was placed on oxygen because she desaturated to 88%. Patient is more somnolent. With history of obstructive sleep apnea, BMI greater than 40 and decreased level of consciousness ABG was obtained to assess CO2 and acid-base status. Comments:: I was informed at 1156 the patient informed respiratory to leave her alone so she could sleep. She declined the chest x-ray. Nurses been asked to remove the oxygen and see if she desaturates. Patient did desaturate when the oxygen was removed. She went to 86%. Patient vomited in spite of antiemetic in the department. Since she has history of diabetes will order Reglan. She will now allow the interventional technologist to perform the chest x-ray. Patient was informed she will require admission to the hospital. Her blood pressure did improve to 106 systolic after IV fluids. Doubt pulmonary embolus since patient is on anticoagulant. Discharge Plan Dx/Rx/DC Orders Clinical Impression: Acute hypoxemic respiratory failure, Hypertension, Ventral hernia, Hyperlipidemia, Nausea, vomiting and diarrhea, Elevated serum creatinine, Hyperglycemia due to type 2 diabetes mellitus, Anticoagulant long-term use, Body mass index (BMI) of 40.1 to 44.9 in adult, Acute hypotension Disposition Disposition: [facility]
[2024-05-14] MEDS: Ondansetron 4 MG/2 ML Vial IV ×2 (10:16→22:12)
[2024-05-14] MEDS: 0.9% Normal Saline (1000mL) 1,000 ML 1000 ML IV (10:16)
[2024-05-14 10:44] LABS: Absolute Lymphocyte Count 1.04 X10^3/uL (0.83-4.51); Absolute Neutrophil Count 7.7 X10^3/uL (2.0-7.7); Basophil# 0.05 X10^3/uL; Basophil% 0.5 % (0-1); Eosinophil# 0.03 X10^3/uL; Eosinophils% 0.3 % (0-5); Hematocrit 43.5 % (37-47); Hemoglobin 13.2 g/dL (12.0-15.0); Lymphocyte # 1.04 X10^3/ul (0.83-4.51); Lymphocyte % 11.3 % (19-41); Mean Corp Hgb Conc 30.3 g/dL (32-36); Mean Corpuscular Hgb 23.8 pg (27.0-32.0); Mean Corpuscular Volume 78.5 fL (81-99); Mean Platelet Vol. 9.2 fl (6.2-12.0); Monocyte# 0.31 X10^3/uL; Monocyte% 3.4 % (0-10); NRBC Flagged by Analyzer 0 % (0-5); Neutrophil % 84.1 % (47-70); Platelet Count 238 K/mm3 (150-450); RBC Distribution Width CV 18.6 % (11.6-14.6); RBC Distribution Width SD 50.9 fl (35.1-43.9); Red Blood Count 5.54 M/mm3 (4.2-5.4); White Blood Count 9.2 K/mm3 (4.4-11.0)
[2024-05-14 10:57] LABS: ALB/GLOB Ratio 0.7 RATIO (0.9-2.4); AST(SGOT) 19 U/L (15-37); Alanine Aminotransfer ALT/SGPT 19 U/L (13-56); Alkaline Phosphatase 116 U/L (45-117); Anion Gap 2 (5-15); BUN 20 mg/dL (7-18); Calcium,Total 10.8 mg/dL (8.5-10.1); Chloride 104 mmol/L (98-107); Creatinine, Serum 1.05 mg/dL (0.55-1.02); EST Glomerular Filtration Rate 55 mL/min (>60); Est Glom Filt Rate - Afr Amer 67 mL/min (>60); Estimated Creatinine Clearance 70.46 ml/min; Globulin 4.5 g/dL (2.2-4.2); Glucose 158 mg/dL (74-106); Potassium 4.6 mmol/L (3.5-5.1); Protein, Total 7.5 g/dL (6.4-8.2); Sodium Level 138 mmol/L (136-145)
[2024-05-14 11:45] LABS: Allen Test Positive; Base Excess 4 mmol/L (-2 to +2); Bicarbonate 28.7 mmol/L (22-26); Blood Gas Specimen Type ART; Mode Not entered; O2 Delivery Device Cannula; PO2 69 mmHG (75-100); SITE R Radial; SO2 93 % (95-99); Total Carbon Dioxide 30 mmol/L; pCO2 48.9 mmHg (35-45); pH 7.38 (7.35-7.45)
--- NOTE | 2024-05-14 11:46 | RAD_ITS ---
INDICATION: Hypoxia EXAMINATION/TECHNIQUE: X-RAY - XR Chest 2 Views COMPARISON: Prior study dated: 11/23/2023 FINDINGS: LINES/DEVICES: None. LUNGS: No consolidation, edema or effusion. No pneumothorax. The lateral view is markedly suboptimal. MEDIASTINUM AND CARDIOVASCULAR STRUCTURES: Cardiac silhouette not enlarged. Central airways and mediastinal contour are unremarkable. BONES AND SOFT TISSUES: No demonstrated acute osseous changes. RAD/Chest PA and Lateral IMPRESSION: No radiographic evidence of acute cardiopulmonary disease. Electronically Signed: Wild Bateman MD at 13:18 EDT ,
--- NOTE | 2024-05-14 11:57 | ED.RN ---
Pt refused her xray. Per Dr Waterman, pt taken off of O2 to see if she drops.
[2024-05-14] MEDS: Dicyclomine 10 MG Capsule 20 MG PO (12:09)
[2024-05-14] MEDS: Metoclopramide 10 MG/2 ML Vial 5 MG IV (12:53)
--- NOTE | 2024-05-14 13:36 | HP.PCM.HOS_ITS ---
HPI - General General Date of Admission: 05/14/24 Date of Service: 05/14/24 Chief Complaint: Abdominal pain for several days, 3 to 4 days HPI Narrative ZOIE DE LA PAZ, is a 68 F came to ED for nausea vomiting and diarrhea for several days. She is not a good historian, sometimes not forthcoming with the answer or does not understand. She also has abdominal pain around left side of umbilicus. Prior to that she was in the ER on 04/29/2024 for nausea and vomiting and abdominal/pelvis CT scan was done which showed no evidence for small bowel obstruction or other acute abnormality and the patient was sent home. Patient denies antibiotic intake. Her diarrhea is liquid in consistency, watery with no mucus or blood. Denies rectal pain fecal incontinence or tenesmus. In ED patient did not had abdominal x-ray or imaging therefore CT abdomen with oral contrast ordered. Vitals reviewed. Initially blood pressure was soft 93/58 but improved to 129/60 1:02 liter of IV fluid normal saline bolus. Patient has tachycardia, RR 20/min pulse ox 97% on 2 L of oxygen. Patient not on home oxygen. [facility] Medical History Wears glasses Former smoker Obesity Ambulates with cane Stroke/cerebrovascular accident Difficulty in walking Poor historian Recurrent incisional hernia with incarceration Incarcerated ventral hernia Obstructive sleep apnea Atrial fibrillation Intraventricular hemorrhage Embolic stroke GERD (gastroesophageal reflux disease) Obesity (BMI 30-39.9) Hyperlipidemia Hypertension Diabetes mellitus Home Medications ?Medication ?Instructions ?Recorded ?Last Taken ?Type omeprazole 20 mg capsule,delayed 20 mg PO DAILY GERd 05/29/14 02/23/21 History release amlodipine 10 mg tablet (Norvasc) 10 mg PO QHS HTN 10/04/16 02/23/21 History apixaban 5 mg tablet (Eliquis) 5 mg PO BID blood thinner 10/04/16 12/26/21 History atorvastatin 80 mg tablet 80 mg PO QHS 10/25/16 02/23/21 Rx lisinopril 40 mg tablet 40 mg PO DAILY HTN 10/25/16 02/23/21 Rx carvedilol 12.5 mg tablet 12.5 mg PO BID HTN 01/23/21 02/23/21 History pioglitazone 15 mg tablet 15 mg PO DAILY DM #30 tabs 10/09/22 Unknown Rx glipizide 10 mg tablet 10 mg PO BID DM 08/09/23 Unknown History benzonatate 200 mg capsule 200 mg PO TID 01/01/24 Unknown History dapagliflozin propanediol 10 mg 10 mg PO QDAY 01/01/24 Unknown History tablet (Farxiga) diphenoxylate-atropine 2.5 1 tab PO Q8H PRN diarrhea 01/01/24 Unknown History mg-0.025 mg tablet gabapentin 600 mg tablet 600 mg PO QDAY 01/01/24 Unknown History loratadine 10 mg tablet (Allergy 10 mg PO DAILY ALLERGIES 01/01/24 Unknown History Relief (loratadine)) metformin 500 mg tablet 500 mg PO BID DM 01/01/24 Unknown History tramadol 50 mg tablet 50 mg PO TID PRN pain #15 tabs 02/26/24 Unknown Rx albuterol sulfate 90 mcg/actuation 2 inh inhalation Q4H PRN shortness 05/14/24 Unknown History aerosol inhaler of breath or wheezing dulaglutide 4.5 mg/0.5 mL 4.5 mg subcut QWEEK DM 05/14/24 Unknown History subcutaneous pen injector (Trulicity) hydrocodone-acetaminophen 5-325mg 1 tab PO TID PRN pain 05/14/24 Unknown History 5mg-325mg insulin glargine 100 unit/mL (3 15 unit subcut DAILY 05/14/24 Unknown History mL) subcutaneous pen (Lantus Solostar U-100 Insulin) lidocaine 5 % topical patch 1 patch topical DAILY 05/14/24 Unknown History multivitamin with folic acid 400 1 tab PO DAILY 05/14/24 Unknown History mcg tablet (Daily-Levon (with folic acid)) Allergy/AdvReac Type Severity Reaction Status Date / Time iodine Allergy Mild Itching Verified 05/14/24 10:01 Penicillins Allergy Mild Itching Verified 05/14/24 10:01 Family History Father CVA (cerebral vascular accident) Mother Diabetes Stomach cancer Other High cholesterol Hypertension Surgical History Hx of colonoscopy Status post debridement History of hysterectomy S/P repair of ventral hernia Social History household members: none Smoking Status: Former smoker alcohol intake: never substance use type: does not use what type of physical activity do you participate in: walking frequency: daily ROS ROS Narrative 14 system ROS difficult as patient does not have good understanding Constitutional: Reports fatigue and weakness. No fever. HEENT: Reports systems reviewed and no addt'l complaints, except as documented Respiratory/Chest: No wheezing. Mild short of breath. She states he might have asthma but denies COPD or/emphysema CVS: No chest pain or pressure. Gastrointestinal: Denies coffee ground emesis, hematemesis or melena. Rest as described in HPI Genitourinary: Denies burning urination or new urinary tract symptoms Musculoskeletal: Denies acute joint pain or limited range of motion. No acute injury Neurologic: Looks confused. Denies seizure-like symptoms. skin: No ulcer. No rash Endocrinology: Reports systems reviewed and no addt'l complaints, except as documented Hematologic/Lymphatic: Reports systems reviewed and no addt'l complaints, except as documented Rest 14 ROS are negative except as mentioned in HPI Vital Signs Vital Signs Vital Signs: 05/14/24 09:55 05/14/24 10:20 05/14/24 10:21 Temperature 98.2 F Temperature Source Oral Pulse Rate 99 Respiratory Rate 20 H Blood Pressure 93/58 L Blood Pressure Mean 69 Pulse Ox 92 89 97 Oxygen Delivery Method Room Air Room Air Nasal Cannula Oxygen Flow Rate (L/min) 2 05/14/24 12:01 05/14/24 12:02 05/14/24 12:54 Temperature 97.5 F L Temperature Source Pulse Rate 95 112 H Respiratory Rate 20 H 20 H Blood Pressure 112/57 L 129/62 H Blood Pressure Mean 75 84 Pulse Ox 86 97 93 Oxygen Delivery Method Room Air Nasal Cannula Oxygen Flow Rate (L/min) 2 Weight Weight: 275 lb 2.19 oz Body Mass Index (BMI) 41.8 Physical Exam Narrative General: Alert, Oriented x3, Cooperative HEENT: Atraumatic, PERRLA, EOMI, Normocephalic Oral: Oral mucosa dry. No Gingival or Mucosal Lesions/ Ulcerations Neck: Supple, No JVD, Negative Carotid Bruits Chest wall/Lungs: Air entry diminished in bilateral lung bases. Bilateral wheezing. Mild tachypnea and hypoxia Cardiovascular: Sinus tachycardia, Normal S1, Normal S2, No M/G/R Abdomen: Tenderness present on left lumbar region/left periumbilical region. Midline abdominal scar. Bowel sounds sluggish. Mild guarding but nondistended. : No dysuria. No renal angle tenderness. No suprapubic tenderness. Extremities: Mild bilateral lower leg edema, Capillary Refill Less than 3 Seconds Skin: Chronic psoriasis patch over upper extremity Musculoskeletal: No Tenderness to Palpation of Joints or Extremities. Neurological: Cranial nerves II-XII grossly intact, DTR 2+/4. No acute focal neurological deficit. Psych/Mental Status: Flat affect. Difficulty in recall Results Lab / Micro Data 05/14/24 10:22 05/14/24 10:22 Labs: Laboratory Results - last 24 hr 05/14/24 10:22: WBC 9.2, RBC 5.54 H, Hgb 13.2, Hct 43.5, MCV 78.5 L, MCH 23.8 L, MCHC 30.3 L, RDW Std Deviation 50.9 H, RDW Coeff of Faby 18.6 H, Plt Count 238, MPV 9.2, Immature Gran % (Auto) 0.400, Neut % (Auto) 84.1 H, Lymph % (Auto) 11.3 L, [place] % (Auto) 3.4, Eos % (Auto) 0.3, Baso % (Auto) 0.5, Absolute Neuts (auto) 7.7, Absolute Lymphs (auto) 1.04, Nucleated RBC % 0, Sodium 138, Potassium 4.6, Chloride 104, Carbon Dioxide 32.0, Anion Gap 2 L, BUN 20 H, Creatinine 1.05 H, Estim Creat Clear Calc 70.46, Est GFR (MDRD) Af Amer 67, Est GFR (MDRD) Non-Af 55 L, BUN/Creatinine Ratio 19.0, Glucose 158 H, Calcium 10.8 H, Total Bilirubin 0.40, AST 19, ALT 19, Alkaline Phosphatase 116, Total Protein 7.5, Albumin 3.0 L , Globulin 4.5 H, Albumin/Globulin Ratio 0.7 L ABG Data ABG results: ABG 05/14/24 11:41 Specimen Type ART Sample Site R Radial pH 7.38 Bicarbonate Actual 28.7 H Total CO2 30 Base Excess 4 H O2 Saturation 93 L O2 % 28.0 ABG pCO2 48.9 H ABG pO2 69 L Angel Test Positive O2 Delivery Device Cannula Vent Mode Not entered Imaging Radiology Impression Chest X-Ray 05/14/24 11:46 IMPRESSION: No radiographic evidence of acute cardiopulmonary disease. Electronically Signed: Wild Bateman MD at 13:18 EDT , Assessment & Plan Assessment/Plan (1) Nausea, vomiting and diarrhea: (2) Abdominal pain: PLAN: Plan This is a 68-year-old female being admitted for nausea vomiting diarrhea along with abdominal pain for several days. 1. Nausea vomiting and diarrhea and abdominal pain exact etiology unclear: Patient is being admitted on [facility] floor. CT abdomen pelvis with oral contrast ordered. Patient refusing follow-up contrast. Previous CT abdomen 04/29 does not show acute bowel abnormality including obstruction diverticulitis but patient has postop changes of rectosigmoid resection. Minor diverticular changes of descending and sigmoid colon. Patient was last admitted in September 2023 for similar complaint and was suspected to be viral gastroenteritis. 2. Wheezing with history of obstructive sleep apnea: ABG done which ED reported 7.38/49/69 on 28% FiO2. Bicarb in BMP is 32 suggestive of metabolic alkalosis therefore compensated mild respiratory acidosis. Chest x-ray done in ED suboptimal, underventilated but no evidence of acute cardiopulmonary disease. DuoNeb every 6 hourly ordered 3. Mild hypercalcemia: BUN 20. Creatinine 1.05. Baseline about 0.84 therefore does not meet criteria for JEANNE. IV fluid normal saline 1 L bolus given. Second liter normal saline bolus ordered. 4. Type 2 diabetes mellitus with hyperglycemia: A1c 11.2% on 08/09/2023. keep the patient NPO. Accu-Cheks Q6 hourly and cover with Humalog sliding scale 5. Paroxysmal A-fib: Twelve-lead EKG ordered. On carvedilol 12.5 mg twice daily with holding parameter. Patient also on Eliquis. 6. History of carbolic stroke: Continue home Eliquis. 7. Hypertension: Currently blood pressure was on lower side when patient came in ED. Hold antihypertensive medication. 8. Dyslipidemia: On statin, hold it while NPO. 9. Other comorbidities include GERD, osteoarthritis, chronic debility: PT and OT ordered. On PPI. Tylenol ordered 10. Morbid obesity: BMI 41.8 kg/m?. Business Intelligence Administrator consult. Laboratory Results 05/14/24 10:22: WBC 9.2, RBC 5.54 H, Hgb 13.2, Hct 43.5, MCV 78.5 L, MCH 23.8 L, MCHC 30.3 L, RDW Std Deviation 50.9 H, RDW Coeff of Faby 18.6 H, Plt Count 238, MPV 9.2, Immature Gran % (Auto) 0.400, Neut % (Auto) 84.1 H, Lymph % (Auto) 11.3 L, [place] % (Auto) 3.4, Eos % (Auto) 0.3, Baso % (Auto) 0.5, Absolute Neuts (auto) 7.7, Absolute Lymphs (auto) 1.04, Nucleated RBC % 0, Sodium 138, Potassium 4.6, Chloride 104, Carbon Dioxide 32.0, Anion Gap 2 L, BUN 20 H, Creatinine 1.05 H, Estim Creat Clear Calc 70.46, Est GFR (MDRD) Af Amer 67, Est GFR (MDRD) Non-Af 55 L, BUN/Creatinine Ratio 19.0, Glucose 158 H, C alcium 10.8 H, Total Bilirubin 0.40, AST 19, ALT 19, Alkaline Phosphatase 116, Total Protein 7.5, Albumin 3.0 L, Globulin 4.5 H, Albumin/Globulin Ratio 0.7 L 05/14/24 11:41: Specimen Type ART, Sample Site R Radial, pH 7.38, Bicarbonate Actual 28.7 H, Total CO2 30, Base Excess 4 H, O2 Saturation 93 L, O2 % 28.0, ABG pCO2 48.9 H, ABG pO2 69 L, Angel Test Positive, O2 Delivery Device Cannula, Vent Mode Not entered Living will/advanced directive/end of life care: Patient does not have living will or advanced directive. She is not . Her sister is next of kin. After discussion of benefits/risks procedures involved with full code, DNR CC arrest and DNR CC, the patient opted that she does not want chest compressions or intubation or ventilator or decision. Patient does want central venous catheter/PICC line, vasopressor Total time spent in [id number] encounter in discussion of advanced directive 17 minutes.
[2024-05-14 14:00] LABS: Lipase 63 U/L (13-75)
--- NOTE | 2024-05-14 14:03 | EKG12_ITS ---
Test Reason : Blood Pressure : / mmHG Vent. Rate : 119 BPM Atrial Rate : 119 BPM P-R Int : 136 ms QRS Dur : 064 ms QT Int : 304 ms P-R-T Axes : 068 065 079 degrees QTc Int : 427 ms Sinus tachycardia Nonspecific ST changes Baseline artifact Abnormal ECG Reconfirmed by Ed Yan ([id number]), newspaper copy editor HARVEY RODRIGUEZ ([id number]) on 05/19/2024 12:11:10 PM Referred By: Confirmed By:Ed Yan
[2024-05-14 14:49] LABS: Lactic Acid 2.1 mmol/L (0.4-1.9)
[2024-05-14] MEDS: 0.9% Normal Saline (1000mL) 1,000 ML 999 ML IV (15:00)
--- NOTE | 2024-05-14 15:50 | CT_ITS ---
We are attempting to reach an attending provider to discuss findings. An addendum with communication details will be sent when the communication is complete. INDICATION: abdominal pain -- s/p ventral hernia repair EXAMINATION: CT ABDOMEN AND PELVIS WITHOUT CONTRAST - CT Abdomen And Pelvis W/O Contrast Injection TECHNIQUE: Helically acquired images were obtained of the abdomen and pelvis without oral or IV contrast. A radiation dose optimization technique was used for this scan. IV Contrast dosage and agent: None. Oral contrast: None. COMPARISON: 04/29/2024 FINDINGS: LOWER CHEST: Bibasilar dependent changes. No cardiomegaly or pericardial effusion. LIVER: Stable hepatomegaly without concerning focal mass. GALLBLADDER AND BILIARY TREE: No calcified gallstones. No gallbladder distension or wall edema. No intra- or extrahepatic biliary ductal dilation. PANCREAS: No focal cystic or solid mass. SPLEEN: Normal size without focal cystic or solid mass. ADRENAL GLANDS: No nodules. KIDNEYS AND URETERS: Stable. No hydronephrosis. PERITONEUM: No ascites or free air. BOWEL: No evidence of acute appendicitis. Increased fluid contents in small bowel, stomach with small fluid column in the distal esophagus. No focal inflammatory change. LYMPH NODES: No enlarged mesenteric or retroperitoneal lymph nodes. VESSELS: Aorta is non-dilated. URINARY BLADDER: Unremarkable. REPRODUCTIVE ORGANS: Uterus absent. ABDOMINAL WALL: Right lower quadrant ventral hernia again contains small bowel loop without definite strangulation. BONES: No acute or aggressive abnormality. CT/Abdomen/Pel W ORAL Cont Only IMPRESSION: Small bowel obstruction possibly due to involvement in the right lower quadrant ventral hernia. Electronically Signed: Navdeep Garcia MD at 16:39 EDT ,
--- OUTSIDE RECORDS SUMMARY | 2024-05-14 16:17 | XMS RPT_ITS | CCD ---
Author Organization [facility] Results Test Name Value Interpretation Reference Range Facil ity PROGRESSon 08-23-2019 PROGRESS HNO ID: [id number] Author: Downtime Note Service: ? Author Type: ? Type: Progress Notes Filed: 08/23/2019 3:10 AM Note Text: Epic Scheduled Downtime: 08/23/2019 12:55:28 AM to 08/23/2019 2:53:[address] [facility] PROGRESSon 07-05-2019 PROGRESS HNO ID: [id number] Author: Downtime Note Service: ? Author Type: ? Type: Progress Notes Filed: 07/05/2019 2:59 AM Note Text: Epic Scheduled Downtime: 07/05/2019 1:00:00 AM to 07/05/2019 2:39:[address] [facility] ANES Jeremi 05-29-2019 ANES POST HNO ID: [id number] Author: Tavo Zapata Service: Anesthesiology Author Type: Anesthesiologist Type: Anesthesia PostOp Filed: 05/29/2019 2:15 PM Note Text: POST ANESTHESIA EVALUATION NOTE SERVICE DATE: 05/29/2019 SERVICE TIME: 2:15 PM : 1955 Vitals: 05/29/19 0832 05/29/19 1112 05/29/19 1346 Temp: 36 ?C (96.8 ?F) 36.9 ?C (98.4 ?F) 36.9 ?C (98.4 ?F) 05/29/19 1145 05/29/19 1200 05/29/19 1215 05/29/19 1346 BP: 149/92 161/72 146/68 145/72 05/29/19 1145 05/29/19 1200 05/29/19 1215 05/29/19 1346 Pulse: 77 73 71 75 05/29/19 1145 05/29/19 1200 05/29/19 1215 05/29/19 1346 Resp: 16 16 16 17 05/29/19 1145 05/29/19 1200 05/29/19 1215 05/29/19 1346 SpO2: 100% 97% 94% 95% Validated Vital Signs: Yes POST ANES STATUS: No apparent anesthetic complications. The patient is appropriately hydrated with stable respiratory and cardiovascular status. Patient has safe and adequate airway control. The patient has appropriate pain relief and no significant post operative nausea or vomiting. The patient has achieved baseline mental status. Further assessment by Anesthesia Service: None Other Remarks: SIGNATURE: Tavo Zapata MD PATIENT NAME: Alissa Zimmer DATE: May 29, 2019 TIME: 2:15 PM PAGER/CONTACT #: [phone] [facility] ANES PREOPon 05-29-2019 ANES PREOP HNO ID: [id number] Author: Tavo Zapata Service: Anesthesiology Author Type: Anesthesiologist Type: Anesthesia PreOp Filed: 05/29/2019 8:57 AM Note Text: ANESTHESIOLOGY DAY OF SURGERY NOTE SERVICE DATE: 05/29/2019 SERVICE TIME: 8:57 AM : 1955 Procedure(s) (LRB): HERNIORRHAPHY VENTRAL ADULT INITIAL REDUCIBLE (N/A) Surgeon(s): Vicky Draper Estimated body mass index is 41.06 kg/m? as calculated from the following: Height as of 04/21/19: 163.2 cm (5' 4.25 ). Weight as of 04/21/19: 109.4 kg (241 lb 1.6 oz). Most recent hematocrit and potassium results: Hematocrit 42.9 10/04/2016 Potassium 5.0 02/12/2019 ANES DOS/PREOP NOTE: Vitals: 05/29/19 0832 BP: 113/92 Pulse: 83 Resp: 16 Temp: 36 ?C (96.8 ?F) SpO2: 98% ACTIVE PROBLEM LIST Viral Warts, Unspecified XEROSIS////SEBACEOUS GLAND DIS NEC Irritable Bowel Syndrome Unspecified Asthma(493.90) Esophageal Reflux Unspecified Essential Hypertension Other and Unspecified Hyperlipidemia Edema Obesity, Unspecified Symptomatic Menopausal Or Female Climacteric States FATTY LIVER Unspecified Pruritic Disorder OA knee Contact Dermatitis and Other Eczema, Due to Unspecified Cause ovarian mass Calculus of Kidney Abdominal Pain, Unspecified Site Postmenopausal Atrophic Vaginitis Type II Or Unspecified Type Diabetes Mellitus Without Mention of Complication, Uncontrolled (Hcc) PSORIASIS Asymptomatic Varicose Veins Subcutaneous Nodule 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 Cutaneous Superficialis Xerosis Cutis Podagra Gout Lipoma Kidney Stone Obesity Colonic Stricture (Hcc) Colonic Diverticular Abscess Sepsis (Hcc) Necrotizing Cellulitis Colovesical Fistula Colocutaneous Fistula Post-Operative Pain Koo Catheter in Place Ileostomy Care (Hcc) Diverticulitis Enterocutaneous Fistula Uti (Urinary Tract Infection) Due to Urinary Indwelling Koo Catheter (Hcc) Obesity, Morbid, Bmi 40.0-49.9 (Hcc) Hyperglycemia Elevated Hemoglobin A1c Injury of Ureter With Open Wound into Abdominal Cavity Attention to Ileostomy (Hcc) Morbid Obesity Due to Excess Calories (Hcc) Uncontrolled Diabetes Mellitus Type 2 Without Complications (Hcc) Morbid Obesity (Hcc) 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) Atrial Fibrillation (Hcc) Ventral Hernia Without Obstruction Or Gangrene PAST MEDICAL HISTORY Diagnosis Date - Abdominal pain, unspecified site - Abscess - Diarrhea - Edema - Esophageal reflux - Irritable bowel syndrome - Obesity, unspecified - Open wound of abdomen - Other and unspecified hyperlipidemia - Other psoriasis - PMH - PAST MEDICAL HISTORY OF HIATAL HERNIA - Psoriasis - Stroke (HCC) 2017 - Symptomatic menopausal or female climacteric states - Type II or unspecified type diabetes mellitus without mention of complication, not stated as uncontrolled 2002 - Unspecified asthma(493.90) Asymptomatic now - Unspecified constipation - Unspecified essential hypertension - Ventral hernia without obstruction or gangrene PAST SURGICAL HISTORY Procedure Laterality Date - BOWEL RESECTION HX 2018 diverticulitis with peroratrion - COLONOSCOP W/ OR W/O [facility] SPEC 04/06/1999 Colonoscopy - COLONOSCOP W/ OR W/O [facility] SPEC 09/02/2003 Colonoscopy-REPEAT IN - DANDC, DIAG AND/OR THERAPEUTIC Dilation AND curettage/X3 - DEBRIDE ABDOM WALL 10/30/14 43x25 debridement lower abdominal for for abscess, necrotizing infection - EGD W/O OR W/BRUSH/WASH 05/12/2002 EGD - PAST SURGICAL HISTORY OF ARTHROSCOPY RT. KNEE - PAST SURGICAL HISTORY OF NASAL SURGERY - PAST SURGICAL HISTORY OF 01/2010 cyst removed from right upper thigh - PAST SURGICAL HISTORY OF 11/2011 Removal of kidney stone - PICC LINE INSERT/CONSULT 11/05/2014 - REMOVAL OF OVARY(S) 04/11/07 Left TOA and BSO done/ Dr. Can - REMOVAL OF TONSILS,<12 Y/O Tonsillectomy - REMV THIGH/KNEE TUMOR,SUBCUTANEOUS 03/29/11 Exc. right lateral thigh SC mass - VAGINAL HYSTERECTOMY 1990 NO CANCER FAMILY HISTORY Problem Relation Age of Onset - Cancer Mother UTERUS (age 68)= - Hypertension Father - Diabetes Father Social History: Social History Tobacco Use - Smoking status: Former Smoker Packs/day: 1.00 Years: 40.00 Pack years: 40.00 Types: Cigarettes Last attempt to quit: 10/29/2015 Years since quittin.5 - Smokeless tobacco: Never Used Substance Use Topics - Alcohol use: No - Drug use: No No current facility-administered medications on file prior to encounter. Current Outpatient Medications on File Prior to Encounter: sitaGLIPtin (JANUVIA) 50 mg tablet Take 50 mg by mouth once daily. atorvastatin (LIPITOR) 10 mg tablet Take 10 mg by mouth once daily. glipiZIDE (GLUCOTROL) 10 mg tablet Take 10 mg by mouth twice daily before meals. carvedilol (COREG) 6.25 mg tablet Take 1 tablet by mouth twice daily with meals. apixaban (ELIQUIS) 5 mg tab tab(s) Take 1 tablet by mouth twice daily. lisinopril (ZESTRIL, PRINIVIL) 20 mg tablet Take 1 tablet by mouth once daily. metFORMIN (GLUCOPHAGE) 500 mg tablet Take 1 tablet by mouth twice daily. (Patient taking differently: Take 1,000 mg by mouth twice daily. Patient taking 2tabs (1000mg) before breakfast and 1tab (500mg) before dinner. ) simvastatin 40 mg tablet Take 1 tablet by mouth daily at bedtime. omeprazole 20 mg capsule Take 1 capsule by mouth once daily. multivitamin (DAILY MULTIVITAMIN) tablet Take 1 tablet by mouth once daily. Benzonatate 200 mg capsule Take 200 mg by mouth three times daily as needed. iv contrast (will be provided with radiology test) CT ABD/PEL -Inject, intravenously, once for 1 dose.No IV access, insert saline lock prior to the beginning of sedation, infusion, injection of imaging exam. Discontinue saline lock post exam. If Pt. has a central line or IVAD, may access for administration according to line specific nursing protocol. Once exam is complete flush line and de-access according to line specific nursing protocol in the CT contrast administration guidelines link. enteric contrast (will be provided with radiology test) For CT ABD/PEL W IVCON Routine order Administer, As Directed One Time Only, via Oral, Rectal, both Oral and Rectal, Enteric Tube, Stoma or Indwelling Catheter, Enteric Contrast as designated per enteric contrast guidelines amLODIPine (NORVASC) 10 mg tablet Take 1 tablet by mouth once daily. diphenoxylate-atropine (LOMOTIL) 2.5-0.025 mg per tablet Take 2 tablets by mouth four times daily as needed. Phenazopyridine HCl (AZO URINARY PAIN RELIEF) 95 mg tab Use three times daily as needed for burning with urination. (Patient not taking: Reported on 10/21/2018 ) oxybutynin (DITROPAN) 5 mg tablet Take 1 tablet by mouth three times daily. (Patient not taking: Reported on 10/21/2018 ) oxyCODONE immediate release (PERCOLONE) 5 mg immediate release tablet Take 1-2 tablets by mouth every 4 hours as needed. (Patient not taking: Reported on 10/21/2018 ) phenazopyridine (PYRIDIUM, GERIDIUM) 200 mg tablet Take 1 tablet by mouth three times daily as needed (for urinary irritation). (Patient not taking: Reported on 10/21/2018 ) acetaminophen (TYLENOL) 325 mg tablet Take 2 tablets by mouth every 4 hours while awake. (Patient not taking: Reported on 04/21/2019 ) Current Facility-Administered Medications Medication Dose Route Frequency Provider Last Rate Last Dose - lidocaine 10 mg/mL (1 %) 1-2 mg injection (XYLOCAINE) 0.1-0.2 mL INTRADERMAL PRN Deneen (Chief Operator Lock Tender) Hudson - lactated ringers infusion 50 mL/hr INTRAVENOUS CONTINUOUS Deneen (Chief Operator Lock Tender) Hudson - clindamycin iv piggyback 900 mg in D5W 50 mL (CLEOCIN) 900 mg INTRAVENOUS Pre-Op Once Deneen (Chief Operator Lock Tender) Hudson - acetaminophen 1,000 mg tab(s) (TYLENOL) 1,000 mg ORAL Pre-Op Once Carlitos Melendez - promethazine 12.5 mg tab(s) (PHENERGAN) 12.5 mg ORAL Pre-Op Once Carlitos Al Allergies: ALLERGIES Allergen Reactions - Bactrim [Sulfametho* Rash - Dye Itching CT scan - Iodine Itching - Penicillins Rash, Unknown PCN skin testing negative - see Allergy note 11/03/14 - Tcn [Tetracyclines] Rash DOS EXAM: Adequate NPO status: Yes Anesthetic risks, benefits, alternatives, personnel and consent discussed: Yes Patient agrees to proceed: Yes Previous Anesthesia: No history of adverse event. Airway Assessment: MP 2; Neck ROM: Full ROM without neurologic symptoms; Airway Evaluation: No significant abnormalities Symptoms of Sleep Apnea: None Dentition: Teeth intact Additional Physical Exam: Lungs: Patient health status unchanged since recent history and physical. See history and physical for exam findings. Cardiac: Patient health status unchanged since recent history and physical. See history and physical for exam findings. Additional Pertinent Findings: N/A Blood Products: Not anticipated for this procedure. Anesthetic Plan: General, Standard ASA Monitors Pain Management Plan: Parenteral or Oral ASA Class: 3 Other Medical Problems: None I have interviewed and examined the patient. I have reviewed the medical record and/or the pre-anesthesia evaluation, pertinent labs, and test results. Significant changes in the patient's condition since the History and Physical, not otherwise documented in primary service progress notes: No This contains updated information obtained within 48 hours of Surgery/Procedure. SIGNATURE: aTvo Zapata MD PATIENT NAME: Alissa Zimmer DATE: May 29, 2019 TIME: 8:57 AM CSN: [id number] [facility] HISTORY PHYSICALon HISTORY PHYSICAL HNO ID: [id number] Author: Vicky Draper Service: General Surgery Author Type: Physician Type: HANDP Filed: 05/29/2019 9:20 AM Note Text: UPDATED HISTORY AND PHYSICAL EXAMINATION SERVICE DATE: 05/29/2019 SERVICE TIME: 9:19 AM PHYSICAL EXAM MUST BE COMPLETED ON ADMISSION The History and Physical (completed in the past 30 days) has been reviewed and the patient has been examined. The contents accurately reflect the patient's condition with the following additions or revisions since the HANDP was completed. Examination indicates no changes. This HANDP can be found in the Electronic Medical Record dated 04/30 - external documentation. SIGNATURE: Vicky Draper MD PATIENT NAME: Alissa Zimmer DATE: May 29, 2019 TIME: 9:19 AM PAGER: IMPRESSION AND PLAN: 63 year old wf with ventral hernia at old ileostomy site, Risks, benefits and alternatives of proceeding with open hernia repair with/without mesh were discussed with risks to include but not limited to hemorrhage, infection, possibility of mesh complications,possibili ty of recurrence,possibility of intraabdominal organ injury.Patient expressed understanding and wishes to proceed Will need to repeat HgbA1c prior to surgery as last was 11.9 in Aug, if remains elevated will need to control DM better prior to surgery to decrease risk of wound complications. We also discussed importance of weight loss and contribution of morbid obesity to hernia recurrence ? HPI: Alissa Zimmer is a 63 year old female,She presents for the evaluation of an enlarging ventral hernia. Has been present since about Aug. She had colectomy with ileostomy and subsequent stoma reversal. Hernia is at this site. Had been evaluated in September but did not proceed with surgery at that time. She denies any n/v, no bm changes. + diarrhea. ? ? PAST?MEDICAL?HISTORY PAST MEDICAL HISTORY Diagnosis Date - Abdominal pain, unspecified site ? - Abscess ? - Diarrhea ? - Edema ? - Esophageal reflux ? - Irritable bowel syndrome ? - Obesity, unspecified ? - Open wound of abdomen ? - Other and unspecified hyperlipidemia ? - Other psoriasis ? - PMH - PAST MEDICAL HISTORY OF ? ? HIATAL HERNIA - Psoriasis ? - Stroke (HCC) 2017 - Symptomatic menopausal or female climacteric states ? - Type II or unspecified type diabetes mellitus without mention of complication, not stated as uncontrolled 2002 - Unspecified asthma(493.90) ? ? Asymptomatic now - Unspecified constipation ? - Unspecified essential hypertension ? - Ventral hernia without obstruction or gangrene ? ? PAST?SURGICAL?HISTORY PAST SURGICAL HISTORY Procedure Laterality Date - BOWEL RESECTION HX ? 2018 ? diverticulitis with peroratrion - COLONOSCOP W/ OR W/O [facility] SPEC ? 04/06/1999 ? Colonoscopy - COLONOSCOP W/ OR W/O [facility] SPEC ? 09/02/2003 ? Colonoscopy-REPEAT IN -2013 - DANDC, DIAG AND/OR THERAPEUTIC ? ? ? Dilation AND curettage/X3 - DEBRIDE ABDOM WALL ? 10/30/14 ? 43x25 debridement lower abdominal for for abscess, necrotizing infection - EGD W/O OR W/BRUSH/WASH ? 05/12/2002 ? EGD - PAST SURGICAL HISTORY OF ? ? ? ARTHROSCOPY RT. KNEE - PAST SURGICAL HISTORY OF ? ? ? NASAL SURGERY - PAST SURGICAL HISTORY OF ? 01/2010 ? cyst removed from right upper thigh - PAST SURGICAL HISTORY OF ? 11/2011 ? Removal of kidney stone - PICC LINE INSERT/CONSULT ? 11/05/2014 ? - REMOVAL OF OVARY(S) ? 04/11/07 ? Left TOA and BSO done/ Dr. Can - REMOVAL OF TONSILS,<12 Y/O ? ? ? Tonsillectomy - REMV THIGH/KNEE TUMOR,SUBCUTANEOUS ? 03/29/11 ? Exc. right lateral thigh SC mass - VAGINAL HYSTERECTOMY ? 1990 ? NO CANCER ? FAMILY?HISTORY FAMILY HISTORY Problem Relation Age of Onset - Cancer Mother ? ? UTERUS (age 68)= - Hypertension Father ? - Diabetes Father ? ? ? CURRENT MEDICATIONS: CURRENT?MEDICATIONS ? sitaGLIPtin (JANUVIA) 50 mg tablet Take 50 mg by mouth once daily. atorvastatin (LIPITOR) 10 mg tablet Take 10 mg by mouth once daily. glipiZIDE (GLUCOTROL) 10 mg tablet Take 10 mg by mouth twice daily before meals. carvedilol (COREG) 6.25 mg tablet Take 1 tablet by mouth twice daily with meals. amLODIPine (NORVASC) 10 mg tablet Take 1 tablet by mouth once daily. apixaban (ELIQUIS) 5 mg tab tab(s) Take 1 tablet by mouth twice daily. lisinopril (ZESTRIL, PRINIVIL) 20 mg tablet Take 1 tablet by mouth once daily. metFORMIN (GLUCOPHAGE) 500 mg tablet Take 1 tablet by mouth twice daily. omeprazole 20 mg capsule Take 1 capsule by mouth once daily. multivitamin (DAILY MULTIVITAMIN) tablet Take 1 tablet by mouth once daily. Cephalexin 500 mg tab Take 3 tablets by mouth three times daily. Benzonatate 200 mg capsule Take 200 mg by mouth three times daily as needed. iv contrast (will be provided with radiology test) CT ABD/PEL -Inject, intravenously, once for 1 dose.No IV access, insert saline lock prior to the beginning of sedation, infusion, injection of imaging exam. Discontinue saline lock post exam. If Pt. has a central line or IVAD, may access for administration according to line specific nursing protocol. Once exam is complete flush line and de-access according to line specific nursing protocol in the CT contrast administration guidelines link. enteric contrast (will be provided with radiology test) For CT ABD/PEL W IVCON Routine order Administer, As Directed One Time Only, via Oral, Rectal, both Oral and Rectal, Enteric Tube, Stoma or Indwelling Catheter, Enteric Contrast as designated per enteric contrast guidelines diphenoxylate-atropine (LOMOTIL) 2.5-0.025 mg per tablet Take 2 tablets by mouth four times daily as needed. Phenazopyridine HCl (AZO URINARY PAIN RELIEF) 95 mg tab Use three times daily as needed for burning with urination. oxybutynin (DITROPAN) 5 mg tablet Take 1 tablet by mouth three times daily. oxyCODONE immediate release (PERCOLONE) 5 mg immediate release tablet Take 1-2 tablets by mouth every 4 hours as needed. phenazopyridine (PYRIDIUM, GERIDIUM) 200 mg tablet Take 1 tablet by mouth three times daily as needed (for urinary irritation). acetaminophen (TYLENOL) 325 mg tablet Take 2 tablets by mouth every 4 hours while awake. simvastatin 40 mg tablet Take 1 tablet by mouth daily at bedtime. ? ? CURRENT ALLERGIES: ALLERGIES ALLERGIES Allergen Reactions - Bactrim [Sulfametho* Rash - Dye Itching ? ? CT scan - Iodine Itching - Penicillins Rash, Unknown ? ? PCN skin testing negative - see Allergy note 11/03/14 - Tcn [Tetracyclines] Rash ? ? 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 Social Needs Financial resource strain: Not on file Food insecurity: Worry: Not on file Inability: Not on file Transportation needs: Medical: Not on file Non-medical: Not on file Tobacco Use Smoking status: Former Smoker Packs/day: 1.00 Years: 40.00 Pack years: 40 Types: Cigarettes Quit date: 10/29/2015 Years since quittin.4 Smokeless tobacco: Never Used Substance and Sexual Activity Alcohol use: No Drug use: No Sexual activity: Yes Partners: Male control/protection: Surgical Lifestyle Physical activity: Days per week: Not on file Minutes per session: Not on file Stress: Not on file Relationships Social connections: Talks on phone: Not on file Gets together: Not on file Attends zoroastrian service: Not on file Active member of club or organization: Not on file Attends meetings of clubs or organizations: Not on file Relationship status: Not on file Intimate partner violence: Fear of current or ex partner: Not on file Emotionally abused: Not on file Physically abused: Not on file Forced sexual activity: Not on file Other Topics Concerns: Not on file Social History Narrative [facility] report reviewed February 20, 2012 Rob Muller MD ? ? ? REVIEW OF SYSTEMS: ? GENERAL:No weight loss No chest pain, no sob No n/v, no melena, no rectal bleeding No obstipation ? ? REVIEW OF SYSTEMS: ? GENERAL:No weight loss, No malaise, No fevers HEENT:No changes in hearing, No nose bleeds, No nasal problems, No significant neck swelling CARDIOVASCULAR: Negative for chest pain, Negative for leg swelling, Negative for palpitaions RESPIRATORY:Negative for cough, Negative for wheezing , Negative for shortness of breath GASTROINTESTINAL: Negative for abdominal discomfort, Negative for blood in stools, Negative for black stools and Negative for change in bowel habits GENITOURINARY: No history of dysuria, frequency or incontinence. ENDOCRINE:None MUSCULOSKELETAL: Negative for joint pain , Negative for swelling, Negative for back pain, Negative for muscle pain NEUROLOGIC:Negative for focal numbness Negative for weakness Negative for headache Negative for syncope Negative for dizziness HEMATOLOGIC/LYMPHATIC/I MMUNOLOGIC:Negative for prolonged bleeding, bruising easily or swollen nodes. Skin: psoriasis ? EXAM: BP 117/71 (BP Site: Right Arm, BP Position: Sitting, BP Cuff Size: Large Adult) Pulse 65 Ht 163.2 cm (5' 4.25 ) Wt 109.4 kg (241 lb 1.6 oz) SpO2 100% BMI 41.06 kg/m? BP 117/71 (BP Site: Right Arm, BP Position: Sitting, BP Cuff Size: Large Adult) Pulse 65 Ht 163.2 cm (5' 4.25 ) Wt 109.4 kg (241 lb 1.6 oz) SpO2 100% BMI 41.06 kg/m? Body mass index is 41.06 kg/m?. ? General appearance: morbidly obese, alert, in no acute distress ? Head: Normocephalic, atraumatic Eyes: Anicteric sclera , Pupils are equally round and reactive Neck: No JVD, Trachea midline Lungs:Clear to auscultation, no wheezing or rhonchi Heart: RRR without murmur, gallop, or rubs. No ectopy Abdomen: Abdomen soft, non-tender. Non distended. No masses, organomegaly, large draping pannus, ruq with 8cm reducible hernia defect Extremities:No clubbing, cyanosis, or edema. Neuro: Alert and oriented times three, No apparent distress ? Vicky Draper MD 04/22/2019 1:57 PM ? [facility] NURSING PROGon 05-29-2019 NURSING PROG HNO ID: [id number] Author: Ju CespedesRn) AYE Welsh Service: ? Author Type: Registered Nurse Type: Nursing Progress Note Filed: 05/29/2019 11:51 AM Note Text: @ 1112 Pt received to PACU, via cart, from OR. Pt sedated - easily aroused AND quickly returns to sleep when not stimulated. Abdominal dressing clean AND dry - abdominal binder on. SCD hose on. @ 1114 FSBS = 213. @ 1150 Easily aroused AND denies discomfort. O2 d/c - will observe. [facility] NURSING PROG HNO ID: [id number] Author: Christie CespedesRn) AYE Matthew Service: Nursing Author Type: Registered Nurse Type: Nursing Progress Note Filed: 05/29/2019 9:03 AM Note Text: PRE OP LEARNING ASSESSMENT PROCEDURE/SURGERY: SURGERY: Preop protocol READINESS TO LEARN COGNITIVE ABILITY: Alert and oriented MOTIVATION TO LEARN: Eager FAMILY SUPPORT: High - Very involved in pt care PATIENT LEARNS BEST BY: Verbal Instruction FACTORS AFFECTING LEARNING: None PHYSICAL LIMITATIONS AFFECTING LEARNING: None Electronically Signed By: Christie Matthew RN In Department: [facility] SURGERY [facility] OPERATIVE NOon 05-29-2019 OPERATIVE NO HNO ID: [id number] Author: Vicky Draper Service: General Surgery Author Type: Physician Type: Operative Report Filed: 06/02/2019 10:02 AM Note Text: [facility] - Operative Report ALISSA ZIMMER Ruthie : 1955 AGE: 63. SEX: F PATIENT TYPE: A HOSP [facility]VC: [facility] LOCATION: [facility] ATTENDING PHYSICIAN: Vicky Draper M.D. CSN NUMBER: [id number] DATE OF SURGERY/PROCEDURE: 05/29/2019 INCISION/PROCEDURE START TIME: 10:07 a.m. INCISION CLOSE/PROCEDURE END TIME: 11:05 AM PREOPERATIVE DIAGNOSIS: Incisional hernia. POSTOPERATIVE DIAGNOSIS: Incisional hernia. SURGEON: Vicky Draper M.D. INFECTIOUS DISEASES PHYSICIAN: Nahed. SURGERY/PROCEDURE: Incisional hernia repair. ANESTHESIA: General. FINDINGS: 8 cm defect in the right upper quadrant, ileostomy site. ESTIMATED BLOOD LOSS: Minimal. SPECIMENS: None. COMPLICATIONS: None. INDICATION: A 63-year-old female with right upper quadrant incisional hernia at the site of previous ileostomy. Risks, benefits, and alternatives of proceeding were discussed. Patient expressed understanding and wished to proceed. DESCRIPTION OF PROCEDURE: The patient was taken to operating room, placed in supine position. After satisfactory induction of general anesthesia, the patient's abdomen was prepped and draped in a sterile fashion. An incision was made in the right upper quadrant at the previous ileostomy site. Bovie cautery was used to dissect down through the subcutaneous tissues and then dissected out the hernia sac. Hernia sac was then incised and excised revealing an 8 cm hernia defect without any incarcerated contents. #1 looped PDS was used to reapproximate the fascia without any undue tension. 2-0 Tevdek U-stitches in a Lembert fashion were used to reinforce the repair. The area was irrigated, found to be hemostatic, 3-0 Vicryl deep subcu stitch followed by 4-0 Vicryl subcu stitch, followed by a 5-0 Vicryl subcuticular stitch used to reapproximate the skin. Silverlon dressing was applied. The patient was awakened from anesthesia without difficulty and taken to PACU in stable condition. Vicky Draper M.D. SMG:[id number] /[id number] [facility] PLAN OF CAREon 05-29-2019 PLAN OF CARE HNO ID: [id number] Author: Tanja Cassidy (Oil Pipeline Dispatcher) Service: Pharmacy Author Type: ? Type: Plan of Care Filed: 05/29/2019 12:25 PM Note Text: RETURNING OFFICER BEDSIDE DELIVERY SURVEY 1. Patient to use [facility] Bedside Delivery - YES Insurance Information as follows: 2. Insurance card on file - YES 3. Credit card for payment - YES PHARMACY BEDSIDE DELIVERY SERVICE Patient Name: Alissa Zimmer The marked outpatient medications were Filled at: [facility] and delivered to the patient's bedside to pharm p/u Medication List CHANGE how you take these medications acetaminophen 325 mg tablet Commonly known as: TYLENOL Take 2 tablets by mouth every 6 hours as needed for Pain. What changed: ? when to take this ? reasons to take this oxyCODONE IR 5 mg immediate release tablet Commonly known as: ROXICODONE Take 1 tablet by mouth every 6 hours as needed for up to 7 days. What changed: ? how much to take ? when to take this X CONTINUE taking these medications apixaban 5 mg tab(s) Commonly known as: ELIQUIS Take 1 tablet by mouth twice daily. Start taking on: 05/30/2019 enteric contrast (will be provided with radiology test) For CT ABD/PEL W IVCON Routine order Administer, As Directed One Time Only, via Oral, Rectal, both Oral and Rectal, Enteric Tube, Stoma or Indwelling Catheter, Enteric Contrast as designated per enteric contrast guidelines iv contrast (will be provided with radiology test) CT ABD/PEL -Inject, intravenously, once for 1 dose.No IV access, insert saline lock prior to the beginning of sedation, infusion, injection of imaging exam. Discontinue saline lock post exam. If Pt. has a central line or IVAD, may access for administration according to line specific nursing protocol. Once exam is complete flush line and de-access according to line specific nursing protocol in the CT contrast administration guidelines link. You might also be taking other medications not listed above. If you have questions about any of your other medications, talk to the person who prescribed them or your Primary Care Provider. Tanja Cassidy (Oil Pipeline Dispatcher) PAGER: [phone] May 29, 2019 12:25 PM Normal [facility] HOSPon 04-21-2019 HOSP Patient:Jaye Zimmer MRN: Height:5' 4.25 (1.632 m) Weight:No patient weight recorded within the last 30 days. Outpatient Medications as of 05/29/19: Benzonatate 200 mg capsule sitaGLIPtin (JANUVIA) 50 mg tablet iv contrast (will be provided with radiology test) enteric contrast (will be provided with radiology test) atorvastatin (LIPITOR) 10 mg tablet glipiZIDE (GLUCOTROL) 10 mg tablet carvedilol (COREG) 6.25 mg tablet amLODIPine (NORVASC) 10 mg tablet apixaban (ELIQUIS) 5 mg tab tab(s) lisinopril (ZESTRIL, PRINIVIL) 20 mg tablet diphenoxylate-atropine (LOMOTIL) 2.5-0.025 mg per tablet Phenazopyridine HCl (AZO URINARY PAIN RELIEF) 95 mg tab oxybutynin (DITROPAN) 5 mg tablet oxyCODONE immediate release (PERCOLONE) 5 mg immediate release tablet phenazopyridine (PYRIDIUM, GERIDIUM) 200 mg tablet acetaminophen (TYLENOL) 325 mg tablet metFORMIN (GLUCOPHAGE) 500 mg tablet simvastatin 40 mg tablet omeprazole 20 mg capsule multivitamin (DAILY MULTIVITAMIN) tablet Admission/Clinic Administered Medications as of 05/29/19: lidocaine 10 mg/mL (1 %) 1-2 mg injection (XYLOCAINE) lactated ringers infusion clindamycin iv piggyback 900 mg in D5W 50 mL (CLEOCIN) Problem List: Viral warts, unspecified [B07.9] XEROSIS////SEBACEOUS GLAND DIS NEC [L73.8] Irritable bowel syndrome [K58.9] Unspecified asthma(493.90) [J45.909] Esophageal reflux [K21.9] Unspecified essential hypertension [I10] Other and unspecified hyperlipidemia [E78.5] Edema [R60.9] Obesity, unspecified [E66.9] Symptomatic menopausal or female climacteric states [N95.1] FATTY LIVER [K76.89] Unspecified pruritic disorder [L29.9] OA knee [M17.10] Contact dermatitis and other eczema, due to unspecified cause [L25.9] ovarian mass [N83.9] Calculus of kidney [N20.0] Abdominal pain, unspecified site [R10.9] Postmenopausal atrophic vaginitis [N95.2] Type II or unspecified type diabetes mellitus without mention of complication, uncontrolled (HCC) [E11.65] PSORIASIS [L40.8] Asymptomatic varicose veins [I83.90] Subcutaneous Nodule [R22.9] 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] Neoplasm of uncertain behavior of skin [D48.5] 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] Xerosis cutis [L85.3] Podagra [M10.9] Gout [M10.9] Lipoma [D17.9] Kidney stone [N20.0] Obesity [E66.9] Colonic stricture (HCC) [K56.699] Colonic diverticular abscess [K57.20] Sepsis (HCC) [A41.9] Necrotizing cellulitis [L03.90] Colovesical fistula [N32.1] Colocutaneous fistula [K63.2] Post-operative pain [G89.18] Koo catheter in place [Z96.0] Ileostomy care (HCC) [Z43.2] Diverticulitis [K57.92] Enterocutaneous fistula [K63.2] UTI (urinary tract infection) due to urinary indwelling Koo catheter (HCC) [T83.511A, N39.0] Obesity, morbid, BMI 40.0-49.9 (HCC) [E66.01] Hyperglycemia [R73.9] Elevated hemoglobin A1c [R73.09] Injury of ureter with open wound into abdominal cavity [S37.10XA] Attention to ileostomy (HCC) [Z43.2] Morbid obesity due to excess calories (HCC) [E66.01] Uncontrolled diabetes mellitus type 2 without complications (HCC) [E11.65] Morbid obesity (HCC) [E66.01] Cerebrovascular accident (CVA) due to embolism (HCC) [I63.9] Atrial fibrillation (HCC) [I48.91] Ventral hernia [K43.9] Allergies: Bactrim [Sulfamethoxazole-Trime thoprim] Dye Iodine Penicillins Tcn [Tetracyclines] Date Verified: 05/29/19 Lab Values No results within the last 30 days for the following basenames: K,HCT Progress Notes ([facility]): Marisa Whitley 05/22/2019 10:39 AM Signed Patient has surgery scheduled for 05/29 provided transportation is [employer] transportation and I called Kati Richter in the [facility] office to see if we can let the patient use [employer] as there transportation to and from for her surgery acccording to Kati we can use [facility] transportation only if the patient has a photo offset printer with her. Progress Notes ([facility]): Marisa Whitley 05/16/2019 8:32 AM Signed Per surgery dept called and said patient want to cancel her surgery scheduled for 05/29 I called her transitional care nurse kera and left message regarding this Kera [phone] [facility] HOSPon 03-05-2019 HOSP Patient:Jaye Zimmer MRN: Height:5' 6 (1.676 m) Weight:No patient weight recorded within the last 30 days. Outpatient Medications as of 04/03/19: Cephalexin 500 mg tab Benzonatate 200 mg capsule sitaGLIPtin (JANUVIA) 50 mg tablet iv contrast (will be provided with radiology test) enteric contrast (will be provided with radiology test) atorvastatin (LIPITOR) 10 mg tablet glipiZIDE (GLUCOTROL) 10 mg tablet carvedilol (COREG) 6.25 mg tablet amLODIPine (NORVASC) 10 mg tablet apixaban (ELIQUIS) 5 mg tab tab(s) lisinopril (ZESTRIL, PRINIVIL) 20 mg tablet diphenoxylate-atropine (LOMOTIL) 2.5-0.025 mg per tablet Phenazopyridine HCl (AZO URINARY PAIN RELIEF) 95 mg tab oxybutynin (DITROPAN) 5 mg tablet oxyCODONE immediate release (PERCOLONE) 5 mg immediate release tablet phenazopyridine (PYRIDIUM, GERIDIUM) 200 mg tablet acetaminophen (TYLENOL) 325 mg tablet metFORMIN (GLUCOPHAGE) 500 mg tablet simvastatin 40 mg tablet omeprazole 20 mg capsule multivitamin (DAILY MULTIVITAMIN) tablet Admission/Clinic Administered Medications as of 04/03/19: Patient has no admission medications. Problem List: Viral warts, unspecified [B07.9] XEROSIS////SEBACEOUS GLAND DIS NEC [L73.8] Irritable bowel syndrome [K58.9] Unspecified asthma(493.90) [J45.909] Esophageal reflux [K21.9] Unspecified essential hypertension [I10] Other and unspecified hyperlipidemia [E78.5] Edema [R60.9] Obesity, unspecified [E66.9] Symptomatic menopausal or female climacteric states [N95.1] FATTY LIVER [K76.89] Unspecified pruritic disorder [L29.9] OA knee [M17.10] Contact dermatitis and other eczema, due to unspecified cause [L25.9] ovarian mass [N83.9] Calculus of kidney [N20.0] Abdominal pain, unspecified site [R10.9] Postmenopausal atrophic vaginitis [N95.2] Type II or unspecified type diabetes mellitus without mention of complication, uncontrolled (HCC) [E11.65] PSORIASIS [L40.8] Asymptomatic varicose veins [I83.90] Subcutaneous Nodule [R22.9] 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] Neoplasm of uncertain behavior of skin [D48.5] 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] Xerosis cutis [L85.3] Podagra [M10.9] Gout [M10.9] Lipoma [D17.9] Kidney stone [N20.0] Obesity [E66.9] Colonic stricture (HCC) [K56.699] Colonic diverticular abscess [K57.20] Sepsis (HCC) [A41.9] Necrotizing cellulitis [L03.90] Colovesical fistula [N32.1] Colocutaneous fistula [K63.2] Post-operative pain [G89.18] Koo catheter in place [Z96.0] Ileostomy care (HCC) [Z43.2] Diverticulitis [K57.92] Enterocutaneous fistula [K63.2] UTI (urinary tract infection) due to urinary indwelling Koo catheter (HCC) [T83.511A, N39.0] Obesity, morbid, BMI 40.0-49.9 (HCC) [E66.01] Hyperglycemia [R73.9] Elevated hemoglobin A1c [R73.09] Injury of ureter with open wound into abdominal cavity [S37.10XA] Attention to ileostomy (HCC) [Z43.2] Morbid obesity due to excess calories (HCC) [E66.01] Uncontrolled diabetes mellitus type 2 without complications (HCC) [E11.65] Morbid obesity (HCC) [E66.01] Cerebrovascular accident (CVA) due to embolism (HCC) [I63.9] Atrial fibrillation (HCC) [I48.91] Allergies: Bactrim [Sulfamethoxazole-Trime thoprim] Dye Iodine Penicillins Tcn [Tetracyclines] Date Verified: 04/02/19 Lab Values No results within the last 30 days for the following basenames: K,HCT Progress Notes ([facility]): Ange Arreola 03/28/2019 2:20 PM Signed Patient called and did not stop her blood thinners. Please advise. Surgery is on 04/03/19. Ange Arreola Normal [facility] Basic Panelon 02-12-2019 Creatinine [Mass/Vol] 0.60 mg/dL Normal 0.51-0.95 [facility] Comment on above: Performed By: #### P 8 #### [facility] [address] [place], [place] [address] Glucose [Mass/Vol] 304 mg/dL High 70-99 [facility] Comment on above: Performed By: #### P 8 #### [address] [address] Urea nitrogen [Mass/Vol] 16 mg/dL Normal 7-18 [facility] Comment on above: Performed By: #### P 8 #### [address] [address] Anion gap [Moles/Vol] 11 mmol/L Normal 8-16 [facility] Comment on above: Performed By: #### P 8 #### [address] [address] Calcium [Mass/Vol] 10.2 mg/dL High 8.5-10.1 [facility] Comment on above: Performed By: #### P 8 #### [facility] [address] [place], [place] [address] CO2 [Moles/Vol] 30 mmol/L Normal 21-32 [facility] Comment on above: Performed By: #### P 8 #### [address] [address] Chloride [Moles/Vol] 100 mmol/L Normal 98-107 [facility] Comment on above: Performed By: #### P 8 #### [address] [place], [place] [address] Potassium [Moles/Vol] 5.0 mmol/L Normal 3.5-5.1 [facility] Comment on above: Performed By: #### P 8 #### [facility] [address] [place], [place] [address] Sodium [Moles/Vol] 136 mmol/L Normal 136-145 [facility] Comment on above: Performed By: #### P 8 #### [facility] [address] [place], [place] [address] HISTORY PHYSICALon 9 HISTORY PHYSICAL HNO ID: [id number] Author: Kati Conteh Service: ? Author Type: Nurse Practitioner Type: HANDP Filed: 02/12/2019 3:08 PM Note Text: HISTORY AND PHYSICAL EXAMINATION SERVICE DATE: 02/12/2019 SERVICE TIME: 1:32 PM PRIMARY CARE PHYSICIAN: Nathaniel Gaines MD The patient has the following: ACTIVE PROBLEM LIST Viral Warts, Unspecified XEROSIS////SEBACEOUS GLAND DIS NEC Irritable Bowel Syndrome Unspecified Asthma(493.90) Esophageal Reflux Unspecified Essential Hypertension Other and Unspecified Hyperlipidemia Edema Obesity, Unspecified Symptomatic Menopausal Or Female Climacteric States FATTY LIVER Unspecified Pruritic Disorder OA knee Contact Dermatitis and Other Eczema, Due to Unspecified Cause ovarian mass Calculus of Kidney Abdominal Pain, Unspecified Site Postmenopausal Atrophic Vaginitis Type II Or Unspecified Type Diabetes Mellitus Without Mention of Complication, Uncontrolled PSORIASIS Asymptomatic Varicose Veins Subcutaneous Nodule 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 Cutaneous Superficialis Xerosis Cutis Podagra Gout Lipoma Kidney Stone Obesity Colonic Stricture (Hcc) Colonic Diverticular Abscess Sepsis (Hcc) Necrotizing Cellulitis Colovesical Fistula Colocutaneous Fistula Post-Operative Pain Koo Catheter in Place Ileostomy Care (Hcc) Diverticulitis Enterocutaneous Fistula Uti (Urinary Tract Infection) Due to Urinary Indwelling Koo Catheter (Hcc) Obesity, Morbid, Bmi 40.0-49.9 (Hcc) Hyperglycemia Elevated Hemoglobin A1c Injury of Ureter With Open Wound into Abdominal Cavity Attention to Ileostomy (Hcc) Morbid Obesity Due to Excess Calories (Hcc) Uncontrolled Diabetes Mellitus Type 2 Without Complications (Hcc) Morbid Obesity (Hcc) 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) Atrial Fibrillation (Hcc) Subjective CHIEF COMPLAINT: Abdominal hernia HPI: This is a 63 year old female presenting to [facility] with the c/o above. Patient noticed a bulge in the right lower quadrant approximately 3 months ago, she thinks she lifted something heavy and that is how it developed. Patient states she had a colectomy and colostomy in 2018 and then it was reversed. Patient states she has pain at night described as sharp when she is laying down she states she gets up and walking helps relieve that. Patient takes no pain medicines and it has increased in size. Patient denies nausea. PCP referred her to a general surgeon and after exam the patient agrees to surgical intervention. PAST MEDICAL HISTORY Diagnosis Date - Abdominal pain, unspecified site - Abscess - Diarrhea - Edema - Esophageal reflux - Irritable bowel syndrome - Obesity, unspecified - Open wound of abdomen - Other and unspecified hyperlipidemia - Other psoriasis - PMH - PAST MEDICAL HISTORY OF VENTRAL HERNIA - PMH - PAST MEDICAL HISTORY OF HIATAL HERNIA - Psoriasis - Stroke (HCC) 2018 - Symptomatic menopausal or female climacteric states - Type II or unspecified type diabetes mellitus without mention of complication, not stated as uncontrolled 2002 - Unspecified asthma(493.90) Asymptomatic now - Unspecified constipation - Unspecified essential hypertension - Ventral hernia without obstruction or gangrene PAST SURGICAL HISTORY Procedure Laterality Date - BOWEL RESECTION HX 2018 diverticulitis with peroratrion - COLONOSCOP W/ OR W/O [facility] SPEC 04/06/1999 Colonoscopy - COLONOSCOP W/ OR W/O [facility] SPEC 09/02/2003 Colonoscopy-REPEAT IN -2013 - DANDC, DIAG AND/OR THERAPEUTIC Dilation AND curettage/X3 - DEBRIDE ABDOM WALL 10/30/14 43x25 debridement lower abdominal for for abscess, necrotizing infection - EGD W/O OR W/BRUSH/WASH 05/12/2002 EGD - PAST SURGICAL HISTORY OF ARTHROSCOPY RT. KNEE - PAST SURGICAL HISTORY OF NASAL SURGERY - PAST SURGICAL HISTORY OF 01/2010 cyst removed from right upper thigh - PAST SURGICAL HISTORY OF 11/2011 Removal of kidney stone - PICC LINE INSERT/CONSULT 11/05/2014 - REMOVAL OF OVARY(S) 04/11/07 Left TOA and BSO done/ Dr. Can - REMOVAL OF TONSILS,<11 Y/O Tonsillectomy - REMV THIGH/KNEE TUMOR,SUBCUTANEOUS 03/29/11 Exc. right lateral thigh SC mass - VAGINAL HYSTERECTOMY 1990 NO CANCER FAMILY HISTORY Problem Relation Age of Onset - Cancer Mother UTERUS (age 68)= - Hypertension Father - Diabetes Father SOCIAL HISTORY: Social History Socioeconomic History Marital status: Spouse name: Raul Number of children: 0 Years of education: Not on file Highest education level: Not on file Social Needs Financial resource strain: Not on file Food insecurity - worry: Not on file Food insecurity - inability: Not on file Transportation needs - medical: Not on file Transportation needs - non-medical: Not on file Occupational History 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 Taking Yes Benzonatate 200 mg capsule Take 200 mg by mouth three times daily as needed. Yes sitaGLIPtin (JANUVIA) 50 mg tablet Take 50 mg by mouth once daily. Yes atorvastatin (LIPITOR) 10 mg tablet Take 10 mg by mouth once daily. Taking Yes carvedilol (COREG) 6.25 mg tablet Take 1 tablet by mouth twice daily with meals. Taking Yes amLODIPine (NORVASC) 10 mg tablet Take 1 tablet by mouth once daily. Taking Yes apixaban (ELIQUIS) 5 mg tab tab(s) Take 1 tablet by mouth twice daily. Taking Yes lisinopril (ZESTRIL, PRINIVIL) 20 mg tablet Take 1 tablet by mouth once daily. Taking Yes acetaminophen (TYLENOL) 325 mg tablet Take 2 tablets by mouth every 4 hours while awake. Taking Yes metFORMIN (GLUCOPHAGE) 500 mg tablet Take 1 tablet by mouth twice daily. Patient taking differently: Take 500 mg by mouth twice daily. Patient taking 2tabs (1000mg) before breakfast and 1tab (500mg) before dinner. Taking Yes omeprazole 20 mg capsule Take 1 capsule by mouth once daily. Taking Yes multivitamin (DAILY MULTIVITAMIN) tablet Take 1 tablet by mouth once daily. Taking Yes iv contrast (will be provided with radiology test) CT ABD/PEL -Inject, intravenously, once for 1 dose.No IV access, insert saline lock prior to the beginning of sedation, infusion, injection of imaging exam. Discontinue saline lock post exam. If Pt. has a central line or IVAD, may access for administration according to line specific nursing protocol. Once exam is complete flush line and de-access according to line specific nursing protocol in the CT contrast administration guidelines link. enteric contrast (will be provided with radiology test) For CT ABD/PEL W IVCON Routine order Administer, As Directed One Time Only, via Oral, Rectal, both Oral and Rectal, Enteric Tube, Stoma or Indwelling Catheter, Enteric Contrast as designated per enteric contrast guidelines glipiZIDE (GLUCOTROL) 10 mg tablet Take 10 mg by mouth twice daily before meals. diphenoxylate-atropine (LOMOTIL) 2.5-0.025 mg per tablet Take 2 tablets by mouth four times daily as needed. Phenazopyridine HCl (AZO URINARY PAIN RELIEF) 95 mg tab Use three times daily as needed for burning with urination. Patient not taking: Reported on 10/21/2018 oxybutynin (DITROPAN) 5 mg tablet Take 1 tablet by mouth three times daily. Patient not taking: Reported on 10/21/2018 oxyCODONE immediate release (PERCOLONE) 5 mg immediate release tablet Take 1-2 tablets by mouth every 4 hours as needed. Patient not taking: Reported on 10/21/2018 phenazopyridine (PYRIDIUM, GERIDIUM) 200 mg tablet Take 1 tablet by mouth three times daily as needed (for urinary irritation). Patient not taking: Reported on 10/21/2018 simvastatin 40 mg tablet Take 1 tablet by mouth daily at bedtime. Patient not taking: Reported on 10/21/2018 No medication comments found. ALLERGIES Allergen Reactions - Bactrim [Sulfametho* Rash - Dye Itching CT scan - Iodine Itching - Penicillins Rash, Unknown PCN skin testing negative - see Allergy note 11/03/14 - Tcn [Tetracyclines] Rash REVIEW OF SYSTEMS: PAIN ASSESSMENT: General: Denies fever, chills, and unexpected weight change. Neuro: Denies dizziness and headaches. Stroke 2018 Respiratory: Denies SOB and cough Cardiovascular: Denies CP and palpitations. HLD HTN GI: Denies abd pain and N/V/D. GERD IBS : Denies dysuria and frequency. Endocrine: No history of Diabetes. Hematology: Denies history of bleeding or clotting disorder. Musculoskeletal: Denies joint pain and swelling. Skin: Psoriasis discoloration bilateral lower extremities with healing wound on the left lower leg Psych: Denies Anxiety/Depression Diagnostic tests reviewed for today's visit: Lab Value Units Date High Low HB No results within date range. HCT No results within date range. WBC No results within date range. PLT No results within date range. NA No results within date range. K No results within date range. GLUC No results within date range. BUN No results within date range. CREAT No results within date range. PTSEC No results within date range. INR No results within date range. APTT No results within date range. ALT No results within date range. AST No results within date range. TBILI No results within date range. TSH No results within date range. Lab Value Units Date High Low HCGQT No results within date range. UHCG No results within date range. HCG, BODY* No results within date range. Lab Value Units Date High Low ABORHD No results within date range. ABSCREEN No results within date range. Hemoglobin A1C (%) Date Value 10/21/2018 11.9 09/26/2016 6.8 11/18/2015 7.5 11/18/2015 7.6 09/02/2012 6.8 Objective PHYSICAL EXAM: VITALS: BP 145/60 Pulse 76 Temp 97.1 Resp 18 Ht 5' 6 (1.68m) Wt 246 lb (111.6kg) SpO2 98% BMI 39.72 kg/(m2). General: NAD. Cooperative. Morbid obesity Skin: Skin is warm, no rashes, and no open sores. HEENT: Normocephalic. Cardiovascular: Normal S1 AND S2. RRR Lungs: CTA. No respiratory distress. Abdomen: Soft. + Bowel Sounds ventral hernia noted Extremities: Slight edema. Discoloration bilateral lower extremity Neurological: Alert and oriented x 3 Pulses: radial pulses +2 PLAN Patient has the following medical conditions which may affect nito-operative course HTN - Well controlled Hyperlipidemia Morbid Obesity Stroke - 2018 some dysphagia patient on Eliquis METS: Do moderate work around the house such as vacuuming, sweeping floors, or carrying in groceries (3.50 METs) Patient denies any chest pain or undue shortness of breath with the above physical activity. ANESTHESIA FINDINGS: Intubation History: No history of difficult intubation Significant Anesthesia Considerations: None Patient to call surgeon to find out when to stop Eliquis. DX: Ventral hernia without obstruction or gangrene [K43.9] Planned Procedure: LAPAROSCOPIC POSSIBLY OPEN VENTRAL HERNIA REPAIR W/ MESH The Following Tests/Procedures Have Been Initiated: BMP ordered in [facility] CONSULTS: The following optimizations were required per surgeon: Medical clearance in chart Planned Anesthetic: General Instructions Given to Patient: Patient given verbal and written preop instructions and voices comprehension and compliance. SIGNATURE: Kati Conteh APRN.[employer]ALES OPERATIONS ASSOCIATE PATIENT NAME: Alissa Zimmer DATE: February 12, 2019 TIME: 1:32 PM PAGER/CONTACT #: Carmita [facility] MDRD GFRon 02-12-2019 GFR/1.73 sq M predicted among non-blacks MDRD (S/P/Bld) [Vol rate/Area] mL/min/{1.73_m2} Normal >60mL/min/1.73m2 [facility] Comment on above: Result Comment: If t he patient is , multiply the result by 1.210. Performed By: #### G FR #### [place] [id number] CNCOon 12-17-2018 CNCO Letter Text Normal [facility] CNOVon 10-21-2018 CNOV Office Visit (PARVIN 7) ALISSA ZIMMER ([id number]) 1955 F Date Time Provider Department 10/21/18 10:30 AM KIRAN POSEY During your visit today, we recorded the following information about you: Pulse Blood pressure Weight Height 81/minute 144/70 111.6 kg 1.676 m Kiran Posey MD 10/21/2018 11:55 AM Signed Kiran Posey M.D. Colon AND Rectal Surgery [address] [facility], [address] [place] [address] DAKSHA Zimmer is a 62 year old White female who presents with a ventral hernia at her prior ileostomy site HPI The patient is a pleasant 62-year-old female who underwent sigmoid colectomy and diverting loop ileostomy 3 years ago with Dr. Todd for diverticulitis who had subsequent stoma closure and presents after a one-month history of swelling and pain at the old stoma site. She denies any constipation or diarrhea, and describes the pain as constant, moderate in severity, aching pain. She does not recall what was going on when the pain started and denies any heavy lifting. She denies tobacco use at present, quit in the past. She is on Eliquis with a history of atrial fibrillation and CVA listed. We discussed weight loss and she says that she has a very difficult time exercising due to pain at this site, though she will try her best to pursue increased activity with walking and dietary modification for weight loss. Review of Systems Constitutional: Negative for chills, fever and weight loss. HENT: Positive for congestion and hearing loss. Negative for sore throat. Eyes: Negative for blurred vision. Respiratory: Positive for cough. Negative for shortness of breath and wheezing. Cardiovascular: Negative for chest pain and palpitations. Gastrointestinal: Positive for abdominal pain (RUQ due to hernia). Negative for blood in stool, constipation, diarrhea, heartburn, melena, nausea and vomiting. Genitourinary: Negative for dysuria, frequency and urgency. Musculoskeletal: Positive for back pain. Negative for joint pain and neck pain. Skin: Positive for itching. Negative for rash. Neurological: Positive for headaches. Negative for tingling. Endo/Heme/Allergies: Negative for environmental allergies. Does not bruise/bleed easily. Psychiatric/Behavioral: Negative for depression. The patient is not nervous/anxious. PAST MEDICAL HISTORY Diagnosis Date - Abdominal pain, unspecified site - Abscess - Diarrhea - Edema - Esophageal reflux - Irritable bowel syndrome - Obesity, unspecified - Open wound of abdomen - Other and unspecified hyperlipidemia - Other psoriasis - PMH - PAST MEDICAL HISTORY OF VENTRAL HERNIA - PMH - PAST MEDICAL HISTORY OF HIATAL HERNIA - Psoriasis - Stroke (HCC) 2018 - Symptomatic menopausal or female climacteric states - Type II or unspecified type diabetes mellitus without mention of complication, not stated as uncontrolled 2002 - Unspecified asthma(493.90) Asymptomatic now - Unspecified constipation - Unspecified essential hypertension PAST SURGICAL HISTORY Procedure Laterality Date - COLONOSCOP W/ OR W/O [facility] SPEC 04/06/1999 Colonoscopy - COLONOSCOP W/ OR W/O [facility] SPEC 09/02/2003 Colonoscopy-REPEAT IN -2013 - DANDC, DIAG AND/OR THERAPEUTIC Dilation AND curettage/X3 - DEBRIDE ABDOM WALL 10/30/14 43x25 debridement lower abdominal for for abscess, necrotizing infection - EGD W/O OR W/BRUSH/WASH 05/12/2002 EGD - PAST SURGICAL HISTORY OF ARTHROSCOPY RT. KNEE - PAST SURGICAL HISTORY OF NASAL SURGERY - PAST SURGICAL HISTORY OF 01/2010 cyst removed from right upper thigh - PAST SURGICAL HISTORY OF 11/2011 Removal of kidney stone - PICC LINE INSERT/CONSULT 11/05/2014 - REMOVAL OF OVARY(S) 04/11/07 Left TOA and BSO done/ Dr. Can - REMOVAL OF TONSILS,<12 Y/O Tonsillectomy - REMV THIGH/KNEE TUMOR,SUBCUTANEOUS 03/29/11 Exc. 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 Tobacco Use Smoking status: Former Smoker Packs/day: 1.00 Years: 40.00 Pack years: 40 Types: Cigarettes Quit date: 10/29/2015 Years since quittin.9 Smokeless tobacco: Never Used Substance and Sexual Activity Alcohol use: No Drug use: No Sexual activity: Yes Partners: Male control/protection: Surgical Other Topics Concerns: Not on file Social History Narrative [facility] report reviewed February 20, 2012 Rob Muller MD FAMILY HISTORY Problem Relation Age of Onset - Cancer Mother UTERUS (age 68)= - Hypertension Father - Diabetes Father The ROS, medical, surgical, family, and social history were reviewed by Kiran Posey MD ALLERGIES Allergen Reactions - Bactrim [Sulfametho* Rash - Dye Itching CT scan - Tcn [Tetracyclines] Rash Current Outpatient Medications: atorvastatin (LIPITOR) 10 mg tablet Take 10 mg by mouth once daily. glipiZIDE (GLUCOTROL) 10 mg tablet Take 10 mg by mouth twice daily before meals. carvedilol (COREG) 6.25 mg tablet Take 1 tablet by mouth twice daily with meals. amLODIPine (NORVASC) 10 mg tablet Take 1 tablet by mouth once daily. apixaban (ELIQUIS) 5 mg tab tab(s) Take 1 tablet by mouth twice daily. lisinopril (ZESTRIL, PRINIVIL) 20 mg tablet Take 1 tablet by mouth once daily. acetaminophen (TYLENOL) 325 mg tablet Take 2 tablets by mouth every 4 hours while awake. metFORMIN (GLUCOPHAGE) 500 mg tablet Take 1 tablet by mouth twice daily. (Patient taking differently: Take 500 mg by mouth twice daily. Patient taking 2tabs (1000mg) before breakfast and 1tab (500mg) before dinner.) omeprazole 20 mg capsule Take 1 capsule by mouth once daily. multivitamin (DAILY MULTIVITAMIN) tablet Take 1 tablet by mouth once daily. diphenoxylate-atropine (LOMOTIL) 2.5-0.025 mg per tablet Take 2 tablets by mouth four times daily as needed. Phenazopyridine HCl (AZO URINARY PAIN RELIEF) 95 mg tab Use three times daily as needed for burning with urination. (Patient not taking: Reported on 10/21/2018 ) oxybutynin (DITROPAN) 5 mg tablet Take 1 tablet by mouth three times daily. (Patient not taking: Reported on 10/21/2018 ) oxyCODONE immediate release (PERCOLONE) 5 mg immediate release tablet Take 1-2 tablets by mouth every 4 hours as needed. (Patient not taking: Reported on 10/21/2018 ) phenazopyridine (PYRIDIUM, GERIDIUM) 200 mg tablet Take 1 tablet by mouth three times daily as needed (for urinary irritation). (Patient not taking: Reported on 10/21/2018 ) simvastatin 40 mg tablet Take 1 tablet by mouth daily at bedtime. (Patient not taking: Reported on 10/21/2018 ) No current facility-administered medications for this visit. OBJECTIVE BP 144/70 (BP Site: Left Arm, BP Position: Sitting, BP Cuff Size: Large Adult) Pulse 81 Ht 167.6 cm (5' 6 ) Wt 111.6 kg (246 lb) BMI 39.71 kg/m? BMI 39.71 kg/(m2) Physical Exam Constitutional: She is oriented to person, place, and time and well-developed, well-nourished, and in no distress. Neck: Normal range of motion. Neck supple. No thyromegaly present. Cardiovascular: Normal rate, regular rhythm and normal heart sounds. Exam reveals no gallop and no friction rub. No murmur heard. Pulmonary/Chest: Effort normal and breath sounds normal. No respiratory distress. She has no wheezes. She has no rales. Abdominal: Soft. She exhibits no distension. At her old ileostomy site there is a reducible 2 cm hernia which is mildly tender to palpation Musculoskeletal: Normal range of motion. She exhibits no edema or deformity. Neurological: She is alert and oriented to person, place, and time. Gait normal. Skin: Skin is warm and dry. No rash noted. She has psoriatic rashes on the backs of both hands Hemoglobin (g/dL) Date Value 10/04/2016 13.8 Hematocrit (%) Date Value 10/04/2016 42.9 WBC (k/uL) Date Value 10/04/2016 6.47 Platelet Count (k/uL) Date Value 10/04/2016 187 Creatinine Date Value Ref Range Status 10/04/2016 0.75 0.58 - 0.96 mg/dL Final AST Date Value Ref Range Status 10/04/2016 18 13 - 35 U/L Final ALT Date Value Ref Range Status 10/04/2016 46 (H) 7 - 38 U/L Final Bilirubin, Total (mg/dL) Date Value 10/04/2016 0.6 Bilirubin, Conjug (mg/dL) Date Value 09/27/2016 1.5 (H) ABO/RH(D) (no units) Date Value 09/26/2016 A NEGATIVE Antibody Screen (no units) Date Value 09/26/2016 NEG WBC (k/uL) Date Value 10/04/2016 6.47 RBC (m/uL) Date Value 10/04/2016 5.31 (H) %DIG,%DBS Plan ASSESSMENT/PLAN: 1. Ventral hernia without obstruction or gangrene - ICD9: 553.20, ICD10: K43.9 (primary diagnosis) We will pursue a laparoscopic possibly open repair of the ventral hernia with mesh. She currently does not have any signs of incarceration. There is a fair chance that she will have some scar tissue which prohibits a laparoscopic repair and we would then pursue an open repair. We'll check a CT scan to evaluate for the contents of the hernia and for operative planning 2. Obesity, morbid, BMI 40.0-49.9 (HCC) - ICD9: 278.01, ICD10: E66.01 Ideally she would lose some weight but she says that the hernia is causing difficulty with weight loss. With the risk of incarceration we discussed the option of surgery and she would like to pursue this 3. Uncontrolled diabetes mellitus type 2 without complications (HCC) - ICD9: 250.02, ICD10: E11.65 We will check a hemoglobin A1c which is necessary prior to ventral hernia repaired our institution. She also is on 2 oral medications and we will see with Dr. Gaines could make recommendations for how to manage these medications around surgery She also will have to hold metformin at the time of CT scan 4. Paroxysmal atrial fibrillation (HCC) - ICD9: 427.31, ICD10: I48.0 5. Cerebrovascular accident (CVA) due to bilateral embolism of middle cerebral arteries (HCC) - ICD9: She is on eliquis and would need to be off of this around the time of the surgery. We will send a note to Dr. Gaines for recommendations about how to manage this perioperatively INFORMED CONSENT Alissa Zimmer Medical Record: [id number] Date: 10/21/2018 Procedure: Upper scopic possibly open ventral hernia repair with mesh The risks, benefits and anticipated outcomes of the procedure, the risks and benefits of the alternatives to the procedure and the roles and tasks of the personnel to be involved were discussed with the patient and the patient consents to the procedure and agrees to proceed. I verify that I personally obtained Alissa Zimmer's consent. Kiran Posey MD Dept of [facility] ACC [id number] Follow up: Return for Surgery. Kiran Psoey M.D. Kiran Posey MD 10/21/2018 11:41 AM Signed What is a hernia? A hernia occurs when an internal organ or other body part protrudes through the wall of muscle or tissue that normally contains it. Most hernias occur within the abdominal cavity, between the chest and the hips. The most common forms of hernia are: ? Inguinal hernia ? In men, the inguinal canal is a passageway for the spermatic cord and blood vessels leading to the testicles. In women the inguinal canal contains the round ligament that gives support for the womb. In an inguinal hernia, fatty tissue or a part of the intestine pokes into the groin at the top of the inner thigh. This is the most common type of hernia, and affects men more often than women. ? Femoral hernia ? Fatty tissue or part of the intestine protrudes into the groin at the top of the inner thigh. Femoral hernias are much less common than inguinal hernias and affect mainly older women. ? Umbilical hernia ? Fatty tissue or part of the intestine pushes through the abdomen near the navel (belly button). ? Hiatal (hiatus) hernia ? Part of the stomach pushes up into the chest cavity through an opening in the diaphragm (the horizontal sheet of muscle that separates the chest from the abdomen). Other types of hernias include: ? Incisional hernia ? Tissue protrudes through the site of an abdominal scar from a remote abdominal or pelvic operation. ? Epigastric hernia ? Fatty tissue protrudes through the abdominal area between the navel and lower part of the sternum (breastbone). ? Spigelian hernia ? The intestine pushes through the abdomen at the side of the abdominal muscle, below the navel. ? Diaphragmatic hernia ? Organs in the abdomen move into the chest through an opening in the diaphragm. What are the symptoms of a hernia? A hernia in the abdomen or groin can produce a noticeable lump or bulge that can be pushed back in, or that can disappear when lying down. Laughing, crying, coughing, straining during a bowel movement, or physical activity may make the lump reappear after it has been pushed in. More symptoms of a hernia include: ? Swelling or bulge in the groin or scrotum (the pouch that contains the testicles) ? Increased pain at the site of the bulge ? Pain while lifting ? Increase in the bulge size over time ? A dull aching sensation ? A sense of feeling full or signs of bowel obstruction In the case of hiatal hernias there are no bulges on the outside of the body. Instead, symptoms may include heartburn, indigestion, difficulty swallowing, frequent regurgitation, and chest pain. How is a hernia diagnosed? It is usually possible to see or feel a bulge in the area where a hernia has occurred by physical exam. Part of a male?s typical physical exam for inguinal hernias includes the doctor feeling the area around the testicles and groin while the patient is asked to cough. In some cases, soft-tissue imaging like a CT scan will accurately diagnose the condition. What causes a hernia? Inguinal and femoral hernias are due to weakened muscles that may have been present since , or are associated with aging and repeated strains on the abdominal and groin areas. Such strain may come from physical exertion, obesity, , frequent coughing, or straining on the toilet due to constipation. Umbilical hernias Adults may get an umbilical hernia by straining the abdominal area, being overweight, having a long-lasting heavy cough, or after giving . The cause of hiatal hernias is not fully understood but a weakening of the diaphragm with age or pressure on the abdomen could play a part. What is the incidence of hernias? Of all hernias that occur: ? 75?80% are inguinal or femoral ? 2% are incisional or ventral ? 3?10% are umbilical, affecting 10-20% of newborns; most close by themselves by 5 years of age ? 1?3% are other forms not on this list How is a hernia treated? ? Hernias typically do not resolve on their own and surgery may be the only way to repair them. However, your doctor will recommend the best therapy to address your hernia, and may refer you to see a surgeon. If the surgeon thinks it is necessary to repair your hernia then the surgeon will tailor the best method of repair that meets your needs. In the case of an umbilical hernia in a child, surgery may be recommended if the hernia is large or if it has not healed by the age of 4?5 years old. By this age, a child can usually avoid surgical complications. If an adult has an umbilical hernia, surgery is usually recommended because the condition will not likely improve on its own and the risk of complications is higher. One of two types of hernia surgery can be performed, depending on each patient?s case: ? Open surgery, in which a cut is made into the body at the location of the hernia. The protruding tissue is set back in place and the weakened muscle wall is stitched back together. Sometimes a type of mesh is implanted in the area to provide extra support. ? Laparascopic surgery involves the same type of repairs. However, instead of a cut to the outside of the abdomen or groin, tiny incisions are made to allow for the insertion of surgical tools to complete the procedure. Each type of surgery has its advantages and disadvantages. The best approach will be decided by the patient?s surgeon. What can happen if a hernia is not treated? Other than umbilical hernias in babies, hernias will not disappear on their own. Over time, a hernia can grow larger and more painful or can develop complications. Complications of an untreated inguinal or femoral hernia may include: Obstruction (incarceration) ? Part of the intestine becomes stuck in the inguinal canal, causing nausea, vomiting, stomach pain, and a painful lump in the groin. Strangulation ? Part of the intestine is trapped in a way that cuts off its blood supply. In such cases, emergency surgery (within hours of occurring) is called for to prevent tissue . What can be expected following surgical treatment for a hernia? After surgery, you will be given instructions. These include what diet to follow, how to care for the incision site, and how to take care to avoid physical strain. Hernias may recur regardless of the repair operations, sometimes this can be due to inherent tissue weakness or protracted healing. Smoking and obesity are also major risk factors for hernia recurrence. How can a hernia be prevented? ? Maintain ideal body weight by eating a healthy diet and exercising. ? Eat enough fruits, vegetables, and whole grains to avoid constipation. ? Use correct form when lifting weights or heavy objects. Avoid lifting anything that is beyond your ability. ? See a doctor when you are ill with persistent coughs or sneezing. ? Don?t smoke, as the habit can lead to coughing that triggers a hernia. References ? [facility], [facility]?. Hernias Accessed 11/12/2014. ? [facility]. Hernia Accessed 11/12/2014. ? Nolberto MISTRY, Reece STALLINGS, Jef J, Sameer FLOREZ. The 5-Minute Clinical Consult 2014. Karlie Jamil AND Givens ([place], [place] 2014), pp. [phone]. [email or web address] Referring Provider: SELF [200] Allergies As of Date: 10/21/2018 Noted Allergy Reaction BACTRIM (SULFAMETHOXAZOLE-TRIME TH*11/10/2005 2 - Rash DYE 09/26/2016 9 - Itching Comments: CT scan TCN (TETRACYCLINES) 11/10/2005 2 - Rash Date Reviewed: 10/21/2018 Reviewed by: Timothy (Toby) Becker - Fully Assessed Reason for Visit: Consult [502] Cmt: hernia Primary Visit Diagnosis:Ventral hernia without obstruction or gangrene [K43.9] Other Visit Diagnoses:Obesity, morbid, BMI 40.0-49.9 (HCC) [E66.01] Uncontrolled diabetes mellitus type 2 without complications (HCC) [E11.65] Paroxysmal atrial fibrillation (HCC) [I48.0] Cerebrovascular accident (CVA) due to bilateral embolism of middle cerebral arteries (HCC) [I63.413] Right upper quadrant abdominal pain [R10.11] Order(s):HGB A1C [XDPOC0I] Order #: [id number] FUTURE iv contrast (will be provided with radiology test)CT ABD/PEL -Inject, intravenously, once for 1 dose.No IV access, insert saline lock prior to the beginning of sedation, infusion, injection of imaging exam. Discontinue saline lock post exam. If Pt. has a central line or IVAD, may access for administration according to line specific nursing protocol. Once exam is complete flush line and de-access according to line specific nursing protocol in the CT contrast administration guidelines link.Disp: 1 EachRfl: 0 enteric contrast (will be provided with radiology test)For CT ABD/PEL W IVCON Routine order Administer, As Directed One Time Only, via Oral, Rectal, both Oral and Rectal, Enteric Tube, Stoma or Indwelling Catheter, Enteric Contrast as designated per enteric contrast guidelinesDisp: 1 EachRfl: 0 Prescriptions as of 10/21/2018 Sig: ATORVASTATIN 10 MG TABLET Take 10 mg by mouth once romeo* GLIPIZIDE 10 MG TABLET Take 10 mg by mouth twice juma* CARVEDILOL 6.25 MG TABLET Take 1 tablet by mouth twice * AMLODIPINE 10 MG TABLET Take 1 tablet by mouth once d* APIXABAN 5 MG TABLET Take 1 tablet by mouth twice * LISINOPRIL 20 MG TABLET Take 1 tablet by mouth once d* ACETAMINOPHEN 325 MG TABLET Take 2 tablets by mouth every* METFORMIN 500 MG TABLET Take 1 tablet by mouth twice * Patient taking differently: Take 500 mg by mouth twice da* OMEPRAZOLE 20 MG CAPSULE,MARGIE* Take 1 capsule by mouth once * MULTIVITAMIN TABLET Take 1 tablet by mouth once d* IV CONTRAST (RADIOLOGY PROCED* CT ABD/PEL -Inject, intraveno* ENTERIC CONTRAST (RADIOLOGY P* For CT ABD/PEL W IVCON Routin* DIPHENOXYLATE-ATROPINE 2.5 MG* Take 2 tablets by mouth four * PHENAZOPYRIDINE 95 MG TABLET Use three times daily as need* Patient not taking: Reported on 10/21/2018 OXYBUTYNIN CHLORIDE 5 MG TABL* Take 1 tablet by mouth three * Patient not taking: Reported on 10/21/2018 OXYCODONE 5 MG TABLET Take 1-2 tablets by mouth zelda* Patient not taking: Reported on 10/21/2018 PHENAZOPYRIDINE 200 MG TABLET Take 1 tablet by mouth three * Patient not taking: Reported on 10/21/2018 SIMVASTATIN 40 MG TABLET Take 1 tablet by mouth daily * Patient not taking: Reported on 10/21/2018 Problem List As Of Date 10/21/2018 Noted Resolved PAIN ABDOMEN GENERALIZED [R10.84] INVALID FOR*02/05/2007 VIRAL WARTS NOS [B07.9] INVALID FOR* PSORIASIS [L40.8] INVALID FOR*03/17/2009 XEROSIS////SEBACEOUS GLAND DIS NEC [L73.8] INVALID FOR* ABDOMINAL PAIN UNSPEC SITE [R10.9] 04/12/2007 CONSTIPATION NOS [K59.00] 04/12/2007 DIARRHEA NOS [R19.7] 04/12/2007 IRRITABLE COLON [K58.9] More... ASTHMA UNSPECIFIED [J45.909] More... ESOPHAGEAL REFLUX [K21.9] More... Unspecified essential hypertension [I10] More... HYPERLIPIDEMIA NEC/NOS [E78.5] More... EDEMA [R60.9] OBESITY NOS [E66.9] SYMPTOMATIC FEMALE CLIMACTERIC STATE [N95.1] INVALID FOR* URGE INCONTINENCE [N39.41] INVALID FOR*04/12/2007 OVARIAN MASS [N83.9] INVALID FOR*10/08/2007 More... Urge incontinence [N39.41] INVALID FOR*04/04/2011 CARDIOMEGALY [I51.7] INVALID FOR*10/08/2007 More... Unspecified hemorrhoids without mention of comp*INVALID FOR*11/23/2015 More... FATTY LIVER [K76.89] INVALID FOR* More... BREAST SCREENING, UNSPECIFIED [Z12.31] INVALID FOR*04/10/2012 PRURITIC DISORDER NOS [L29.9] INVALID FOR* OA knee [M17.10] INVALID FOR* More... DERMATITIS NOS [L25.9] INVALID FOR* ovarian mass [N83.9] INVALID FOR* More... CALCULUS OF KIDNEY [N20.0] INVALID FOR* More... ABDOMINAL PAIN UNSPEC SITE [R10.9] INVALID FOR* ATROPHIC VAGINITIS [N95.2] INVALID FOR* Routine General Medical Examination at a Health*INVALID FOR*04/10/2012 Class: Chronic More... Routine gynecological examination [Z01.419] INVALID FOR*04/10/2012 Class: Chronic More... DIABETES MELLITUS TYPE II UNCONTR UNCOMPL [E11.*INVALID FOR* More... 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] INVALID FOR* Neoplasm of Uncertain Behavior of Skin [D48.5] INVALID FOR* Nevus Lipomatosus Cutaneous Superficialis [D17.*INVALID FOR* Xerosis cutis [L85.3] INVALID FOR* Podagra [M10.9] INVALID FOR* Gout [M10.9] INVALID FOR* Lipoma [D17.9] INVALID FOR* Kidney stone [N20.0] INVALID FOR* Obesity [E66.9] INVALID FOR* Colonic stricture [K56.699] INVALID FOR* Colonic diverticular abscess [K57.20] INVALID FOR* Sepsis (HCC) [A41.9] INVALID FOR* Necrotizing cellulitis [L03.90] INVALID FOR* Colovesical fistula [N32.1] INVALID FOR* 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 Obesity, morbid, BMI 40.0-49.9 (HCC) [E66.01] INVALID FOR* Hyperglycemia [R73.9] INVALID FOR* Elevated hemoglobin A1c [R73.09] INVALID FOR* Injury of ureter with open wound into abdominal*INVALID FOR* Attention to ileostomy (HCC) [Z43.2] INVALID FOR* Morbid obesity due to excess calories (HCC) [E6*INVALID FOR* More... Uncontrolled diabetes mellitus type 2 without c*INVALID FOR* More... Morbid obesity (HCC) [E66.01] INVALID FOR* Cerebrovascular accident (CVA) due to embolism *INVALID FOR* More... IVH (intraventricular hemorrhage) (HCC) [I61.5] INVALID FOR*10/04/2016 More... Atrial fibrillation (HCC) [I48.91] INVALID FOR* More... Other instructions from your clinician: What is a hernia? A hernia occurs when an internal organ or other body part protrudes through the wall of muscle or tissue that normally contains it. Most hernias occur within the abdominal cavity, between the chest and the hips. The most common forms of hernia are: ? Inguinal hernia ? In men, the inguinal canal is a passageway for the spermatic cord and blood vessels leading to the testicles. In women the inguinal canal contains the round ligament that gives support for the womb. In an inguinal hernia, fatty tissue or a part of the intestine pokes into the groin at the top of the inner thigh. This is the most common type of hernia, and affects men more often than women. ? Femoral hernia ? Fatty tissue or part of the intestine protrudes into the groin at the top of the inner thigh. Femoral hernias are much less common than inguinal hernias and affect mainly older women. ? Umbilical hernia ? Fatty tissue or part of the intestine pushes through the abdomen near the navel (belly button). ? Hiatal (hiatus) hernia ? Part of the stomach pushes up into the chest cavity through an opening in the diaphragm (the horizontal sheet of muscle that separates the chest from the abdomen). Other types of hernias include: ? Incisional hernia ? Tissue protrudes through the site of an abdominal scar from a remote abdominal or pelvic operation. ? Epigastric hernia ? Fatty tissue protrudes through the abdominal area between the navel and lower part of the sternum (breastbone). ? Spigelian hernia ? The intestine pushes through the abdomen at the side of the abdominal muscle, below the navel. ? Diaphragmatic hernia ? Organs in the abdomen move into the chest through an opening in the diaphragm. What are the symptoms of a hernia? A hernia in the abdomen or groin can produce a noticeable lump or bulge that can be pushed back in, or that can disappear when lying down. Laughing, crying, coughing, straining during a bowel movement, or physical activity may make the lump reappear after it has been pushed in. More symptoms of a hernia include: ? Swelling or bulge in the groin or scrotum (the pouch that contains the testicles) ? Increased pain at the site of the bulge ? Pain while lifting ? Increase in the bulge size over time ? A dull aching sensation ? A sense of feeling full or signs of bowel obstruction In the case of hiatal hernias there are no bulges on the outside of the body. Instead, symptoms may include heartburn, indigestion, difficulty swallowing, frequent regurgitation, and chest pain. How is a hernia diagnosed? It is usually possible to see or feel a bulge in the area where a hernia has occurred by physical exam. Part of a male?s typical physical exam for inguinal hernias includes the doctor feeling the area around the testicles and groin while the patient is asked to cough. In some cases, soft-tissue imaging like a CT scan will accurately diagnose the condition. What causes a hernia? Inguinal and femoral hernias are due to weakened muscles that may have been present since , or are associated with aging and repeated strains on the abdominal and groin areas. Such strain may come from physical exertion, obesity, , frequent coughing, or straining on the toilet due to constipation. Umbilical hernias Adults may get an umbilical hernia by straining the abdominal area, being overweight, having a long-lasting heavy cough, or after giving . The cause of hiatal hernias is not fully understood but a weakening of the diaphragm with age or pressure on the abdomen could play a part. What is the incidence of hernias? Of all hernias that occur: ? 75?80% are inguinal or femoral ? 2% are incisional or ventral ? 3?10% are umbilical, affecting 10-20% of newborns; most close by themselves by 5 years of age ? 1?3% are other forms not on this list How is a hernia treated? ? Hernias typically do not resolve on their own and surgery may be the only way to repair them. However, your doctor will recommend the best therapy to address your hernia, and may refer you to see a surgeon. If the surgeon thinks it is necessary to repair your hernia then the surgeon will tailor the best method of repair that meets your needs. In the case of an umbilical hernia in a child, surgery may be recommended if the hernia is large or if it has not healed by the age of 4?5 years old. By this age, a child can usually avoid surgical complications. If an adult has an umbilical hernia, surgery is usually recommended because the condition will not likely improve on its own and the risk of complications is higher. One of two types of hernia surgery can be performed, depending on each patient?s case: ? Open surgery, in which a cut is made into the body at the location of the hernia. The protruding tissue is set back in place and the weakened muscle wall is stitched back together. Sometimes a type of mesh is implanted in the area to provide extra support. ? Laparascopic surgery involves the same type of repairs. However, instead of a cut to the outside of the abdomen or groin, tiny incisions are made to allow for the insertion of surgical tools to complete the procedure. Each type of surgery has its advantages and disadvantages. The best approach will be decided by the patient?s surgeon. What can happen if a hernia is not treated? Other than umbilical hernias in babies, hernias will not disappear on their own. Over time, a hernia can grow larger and more painful or can develop complications. Complications of an untreated inguinal or femoral hernia may include: Obstruction (incarceration) ? Part of the intestine becomes stuck in the inguinal canal, causing nausea, vomiting, stomach pain, and a painful lump in the groin. Strangulation ? Part of the intestine is trapped in a way that cuts off its blood supply. In such cases, emergency surgery (within hours of occurring) is called for to prevent tissue . What can be expected following surgical treatment for a hernia? After surgery, you will be given instructions. These include what diet to follow, how to care for the incision site, and how to take care to avoid physical strain. Hernias may recur regardless of the repair operations, sometimes this can be due to inherent tissue weakness or protracted healing. Smoking and obesity are also major risk factors for hernia recurrence. How can a hernia be prevented? ? Maintain ideal body weight by eating a healthy diet and exercising. ? Eat enough fruits, vegetables, and whole grains to avoid constipation. ? Use correct form when lifting weights or heavy objects. Avoid lifting anything that is beyond your ability. ? See a doctor when you are ill with persistent coughs or sneezing. ? Don?t smoke, as the habit can lead to coughing that triggers a hernia. References ? [facility], [place], [facility]?. Hernias Accessed 11/12/2014. ? [facility]. Hernia Accessed 11/12/2014. ? Nolberto MISTRY, Reece RA, Jef J, Sameer JA. The 5-Minute Clinical Consult 2014. Karlie Jamil AND Givens ([place], [place] 2014), pp. [phone]. [email or web address] Prescriptions ordered this encounter Disp Refills Start End IV CONTRAST (RADIOLOGY PROCEDURE) 1 Ea* 0 10/21/2018 10/22/2018 Class: In Office Sig: CT ABD/PEL -Inject, intravenously, once for 1 dose.No IV access, insert saline lock prior to the beginning of sedation, infusion, injection of imaging exam. Discontinue saline lock post exam. If Pt. has a central line or IVAD, may access for administration according to line specific nursing protocol. Once exam is complete flush line and de-access according to line specific nursing protocol in the CT contrast administration guidelines link. ENTERIC CONTRAST (RADIOLOGY PROCEDUR* 1 Ea* 0 10/21/2018 10/22/2018 Class: In Office Sig: For CT ABD/PEL W IVCON Routine order Administer, As Directed One Time Only, via Oral, Rectal, both Oral and Rectal, Enteric Tube, Stoma or Indwelling Catheter, Enteric Contrast as designated per enteric contrast guidelines Disposition: Return for Surgery. Follow-up and Disposition History Recorded Letter Text Encounter Status:Closed by KIRAN POSEY MD on 10/21/18 [facility] Hgb A1con 10-21-2018 HbA1c (Bld) [Mass fraction] 295 mg/dl Normal [facility] Comment on above: Performed By: #### H A1C #### [facility] [address] [place] [address] HbA1c (Bld) [Mass fraction] 11.9 % High 4.2-6.3 [facility] Comment on above: Result Comment: Meth od is National Glycohemoglobin Standardization Program (NGSP) compliant. Performed By: #### H A1C #### [facility] [address] [address] PROGRESSon 10-21-2018 PROGRESS HNO ID: [id number] Author: Kiran Posey Service: ? Author Type: Physician Type: Progress Notes Filed: 10/21/2018 11:55 AM Note Text: Kiran Posey M.D. Colon AND Rectal Surgery [address] [facility], [address] [place] [address] SUBJECTIVE Alissa Zimmer is a 62 year old White female who presents with a ventral hernia at her prior ileostomy site HPI The patient is a pleasant 62-year-old female who underwent sigmoid colectomy and diverting loop ileostomy [address] Todd for diverticulitis who had subsequent stoma closure and presents after a one-month history of swelling and pain at the old stoma site. She denies any constipation or diarrhea, and describes the pain as constant, moderate in severity, aching pain. She does not recall what was going on when the pain started and denies any heavy lifting. She denies tobacco use at present, quit in the past. She is on Eliquis with a history of atrial fibrillation and CVA listed. We discussed weight loss and she says that she has a very difficult time exercising due to pain at this site, though she will try her best to pursue increased activity with walking and dietary modification for weight loss. Review of Systems Constitutional: Negative for chills, fever and weight loss. HENT: Positive for congestion and hearing loss. Negative for sore throat. Eyes: Negative for blurred vision. Respiratory: Positive for cough. Negative for shortness of breath and wheezing. Cardiovascular: Negative for chest pain and palpitations. Gastrointestinal: Positive for abdominal pain (RUQ due to hernia). Negative for blood in stool, constipation, diarrhea, heartburn, melena, nausea and vomiting. Genitourinary: Negative for dysuria, frequency and urgency. Musculoskeletal: Positive for back pain. Negative for joint pain and neck pain. Skin: Positive for itching. Negative for rash. Neurological: Positive for headaches. Negative for tingling. Endo/Heme/Allergies: Negative for environmental allergies. Does not bruise/bleed easily. Psychiatric/Behavioral: Negative for depression. The patient is not nervous/anxious. PAST MEDICAL HISTORY Diagnosis Date - Abdominal pain, unspecified site - Abscess - Diarrhea - Edema - Esophageal reflux - Irritable bowel syndrome - Obesity, unspecified - Open wound of abdomen - Other and unspecified hyperlipidemia - Other psoriasis - PMH - PAST MEDICAL HISTORY OF VENTRAL HERNIA - PMH - PAST MEDICAL HISTORY OF HIATAL HERNIA - Psoriasis - Stroke (HCC) 2017 - Symptomatic menopausal or female climacteric states - Type II or unspecified type diabetes mellitus without mention of complication, not stated as uncontrolled 2002 - Unspecified asthma(493.90) Asymptomatic now - Unspecified constipation - Unspecified essential hypertension PAST SURGICAL HISTORY Procedure Laterality Date - COLONOSCOP W/ OR W/O [facility] SPEC 04/06/1999 Colonoscopy - COLONOSCOP W/ OR W/O [facility] SPEC 09/02/2003 Colonoscopy-REPEAT IN - DANDC, DIAG AND/OR THERAPEUTIC Dilation AND curettage/X3 - DEBRIDE ABDOM WALL 10/30/14 43x25 debridement lower abdominal for for abscess, necrotizing infection - EGD W/O OR W/BRUSH/WASH 05/12/2002 EGD - PAST SURGICAL HISTORY OF ARTHROSCOPY RT. KNEE - PAST SURGICAL HISTORY OF NASAL SURGERY - PAST SURGICAL HISTORY OF 01/2010 cyst removed from right upper thigh - PAST SURGICAL HISTORY OF 11/2011 Removal of kidney stone - PICC LINE INSERT/CONSULT 11/05/2014 - REMOVAL OF OVARY(S) 04/11/07 Left TOA and BSO done/ Dr. Can - REMOVAL OF TONSILS,<12 Y/O Tonsillectomy - REMV THIGH/KNEE TUMOR,SUBCUTANEOUS 03/29/11 Exc. 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 Tobacco Use Smoking status: Former Smoker Packs/day: 1.00 Years: 40.00 Pack years: 40 Types: Cigarettes Quit date: 10/29/2015 Years since quittin.9 Smokeless tobacco: Never Used Substance and Sexual Activity Alcohol use: No Drug use: No Sexual activity: Yes Partners: Male control/protection: Surgical Other Topics Concerns: Not on file Social History Narrative [facility] report reviewed February 20, 2012 Rob Muller MD FAMILY HISTORY Problem Relation Age of Onset - Cancer Mother UTERUS (age 68)= - Hypertension Father - Diabetes Father The ROS, medical, surgical, family, and social history were reviewed by Kiran Posey MD ALLERGIES Allergen Reactions - Bactrim [Sulfametho* Rash - Dye Itching CT scan - Tcn [Tetracyclines] Rash Current Outpatient Medications: atorvastatin (LIPITOR) 10 mg tablet Take 10 mg by mouth once daily. glipiZIDE (GLUCOTROL) 10 mg tablet Take 10 mg by mouth twice daily before meals. carvedilol (COREG) 6.25 mg tablet Take 1 tablet by mouth twice daily with meals. amLODIPine (NORVASC) 10 mg tablet Take 1 tablet by mouth once daily. apixaban (ELIQUIS) 5 mg tab tab(s) Take 1 tablet by mouth twice daily. lisinopril (ZESTRIL, PRINIVIL) 20 mg tablet Take 1 tablet by mouth once daily. acetaminophen (TYLENOL) 325 mg tablet Take 2 tablets by mouth every 4 hours while awake. metFORMIN (GLUCOPHAGE) 500 mg tablet Take 1 tablet by mouth twice daily. (Patient taking differently: Take 500 mg by mouth twice daily. Patient taking 2tabs (1000mg) before breakfast and 1tab (500mg) before dinner.) omeprazole 20 mg capsule Take 1 capsule by mouth once daily. multivitamin (DAILY MULTIVITAMIN) tablet Take 1 tablet by mouth once daily. diphenoxylate-atropine (LOMOTIL) 2.5-0.025 mg per tablet Take 2 tablets by mouth four times daily as needed. Phenazopyridine HCl (AZO URINARY PAIN RELIEF) 95 mg tab Use three times daily as needed for burning with urination. (Patient not taking: Reported on 10/21/2018 ) oxybutynin (DITROPAN) 5 mg tablet Take 1 tablet by mouth three times daily. (Patient not taking: Reported on 10/21/2018 ) oxyCODONE immediate release (PERCOLONE) 5 mg immediate release tablet Take 1-2 tablets by mouth every 4 hours as needed. (Patient not taking: Reported on 10/21/2018 ) phenazopyridine (PYRIDIUM, GERIDIUM) 200 mg tablet Take 1 tablet by mouth three times daily as needed (for urinary irritation). (Patient not taking: Reported on 10/21/2018 ) simvastatin 40 mg tablet Take 1 tablet by mouth daily at bedtime. (Patient not taking: Reported on 10/21/2018 ) No current facility-administered medications for this visit. OBJECTIVE BP 144/70 (BP Site: Left Arm, BP Position: Sitting, BP Cuff Size: Large Adult) Pulse 81 Ht 167.6 cm (5' 6 ) Wt 111.6 kg (246 lb) BMI 39.71 kg/m? BMI 39.71 kg/(m2) Physical Exam Constitutional: She is oriented to person, place, and time and well-developed, well-nourished, and in no distress. Neck: Normal range of motion. Neck supple. No thyromegaly present. Cardiovascular: Normal rate, regular rhythm and normal heart sounds. Exam reveals no gallop and no friction rub. No murmur heard. Pulmonary/Chest: Effort normal and breath sounds normal. No respiratory distress. She has no wheezes. She has no rales. Abdominal: Soft. She exhibits no distension. At her old ileostomy site there is a reducible 2 cm hernia which is mildly tender to palpation Musculoskeletal: Normal range of motion. She exhibits no edema or deformity. Neurological: She is alert and oriented to person, place, and time. Gait normal. Skin: Skin is warm and dry. No rash noted. She has psoriatic rashes on the backs of both hands Hemoglobin (g/dL) Date Value 10/04/2016 13.8 Hematocrit (%) Date Value 10/04/2016 42.9 WBC (k/uL) Date Value 10/04/2016 6.47 Platelet Count (k/uL) Date Value 10/04/2016 187 Creatinine Date Value Ref Range Status 10/04/2016 0.75 0.58 - 0.96 mg/dL Final AST Date Value Ref Range Status 10/04/2016 18 13 - 35 U/L Final ALT Date Value Ref Range Status 10/04/2016 46 (H) 7 - 38 U/L Final Bilirubin, Total (mg/dL) Date Value 10/04/2016 0.6 Bilirubin, Conjug (mg/dL) Date Value 09/27/2016 1.5 (H) ABO/RH(D) (no units) Date Value 09/26/2016 A NEGATIVE Antibody Screen (no units) Date Value 09/26/2016 NEG WBC (k/uL) Date Value 10/04/2016 6.47 RBC (m/uL) Date Value 10/04/2016 5.31 (H) %DIG,%DBS Plan ASSESSMENT/PLAN: 1. Ventral hernia without obstruction or gangrene - ICD9: 553.20, ICD10: K43.9 (primary diagnosis) We will pursue a laparoscopic possibly open repair of the ventral hernia with mesh. She currently does not have any signs of incarceration. There is a fair chance that she will have some scar tissue which prohibits a laparoscopic repair and we would then pursue an open repair. We'll check a CT scan to evaluate for the contents of the hernia and for operative planning 2. Obesity, morbid, BMI 40.0-49.9 (HCC) - ICD9: 278.01, ICD10: E66.01 Ideally she would lose some weight but she says that the hernia is causing difficulty with weight loss. With the risk of incarceration we discussed the option of surgery and she would like to pursue this 3. Uncontrolled diabetes mellitus type 2 without complications (HCC) - ICD9: 250.02, ICD10: E11.65 We will check a hemoglobin A1c which is necessary prior to ventral hernia repaired our institution. She also is on 2 oral medications and we will see with Dr. Gaines could make recommendations for how to manage these medications around surgery She also will have to hold metformin at the time of CT scan 4. Paroxysmal atrial fibrillation (HCC) - ICD9: 427.31, ICD10: I48.0 5. Cerebrovascular accident (CVA) due to bilateral embolism of middle cerebral arteries (HCC) - ICD9: She is on eliquis and would need to be off of this around the time of the surgery. We will send a note to Dr. Gaines for recommendations about how to manage this perioperatively INFORMED CONSENT Alissa Zimmer Medical Record: [id number] Date: 10/21/2018 Procedure: Upper scopic possibly open ventral hernia repair with mesh The risks, benefits and anticipated outcomes of the procedure, the risks and benefits of the alternatives to the procedure and the roles and tasks of the personnel to be involved were discussed with the patient and the patient consents to the procedure and agrees to proceed. I verify that I personally obtained Alissa Zimmer's consent. Kiran Posey MD Dept of [facility] ACC [address] Follow up: Return for Surgery. Kiran Posey M.D. Normal [facility] Summary Purpose Family History No Family History Records FoundNo Family History Records FoundNo Family History Records Found Advance Directives No Advanced Directives Records FoundNo Advanced Directives Records FoundNo Advanced Directives Records Found Procedure Findings Note HNO ID: [id number] Author: Flavio Draper Service: General Surgery Author Type: Physician Type: Brief Op Note Filed: 05/29/2019 10:53 AM Note Text: BRIEF OPERATIVE / PROCEDURE NOTE LOG ID: [id number] SURGERY/PROCEDURE DATE: 05/29/2019 INCISION/PROCEDURE START TIME: 10:07 AM INCISION CLOSE/PROCEDURE END TIME: SURGEON(S)/PROCEDURALIST(S) AND INFECTIOUS DISEASES PHYSICIAN(S): Surgeon(s) and Role: * Vicky Draper - Primary Physician Vehicle Calibration Engineer: Clemencia Dockery (Pa) SURGERY/PROCEDURE(S): incisional hernia repair ANESTHESIA: General FINDINGS: 8cm defect in ruq at old ileostomy site ESTIMATED BLOOD LOSS: minimal SPECIMENS: None COMPLICATIONS: None PRE-OP/PRE-PROCEDURE DIAGNOSIS: incisional hernia POST-OP/POST-PROCEDURE DIAGNOSIS: SAME Dictated # [id number] SIGNATURE: Vicky Draper MD PATIENT NAME: Alissa Zimmer DATE: May 29, 2019 TIME: 10:50 AM PAGER/CONTACT #: Additional Source Comments INFORMATION SOURCE (unrecogn ized section and content) DATE CREATED AUTHOR 06/01/2019 [facility] DATE CREATED AUTHOR AUTHOR'S ORGANIZ ATION 06/02/2019 [facility] DATE CREATED AUTHOR AUTHOR'S ORGANIZ ATION 08/23/2019 [facility] FOR RECORDS PERTAINING TO PATIENTS WHO [...] BE BASED ON THE PRIMARY CLINICAL RECORDS. [facility] provides no warranty or guarantee of the accuracy or completeness of information in this document.
--- NOTE | 2024-05-14 17:52 | NURSING ---
in to place NGT with Primary RN. pt refusing NGt. states not getting NGt just wants to sleep. without c/o nausea, no emesis seen. Dr. Villalta and Dr. Aldridge being updated via backline.
[2024-05-14 17:54] LABS: Reflex Lactate? Y
[2024-05-14] MEDS: KCL 20MEQ in 0.9% NS 20 MEQ/1,000 ML IV.SOLN. 100 MEQ IV (18:45)
[2024-05-14 18:51] LABS: Lactic Acid 2.6 mmol/L (0.4-1.9)
[2024-05-14 19:33] LABS: Bedside Glucose 146 mg/dL (74-106)
[2024-05-14] MEDS: Ipratropium/Albuterol Sulfate 3 ML AMPUL.NEB INHALATION (19:38)
[2024-05-14] MEDS: 0.9% Saline Lock 10 ML Syringe IV (22:13)
[2024-05-15] VITALS (23 sets, daily range): BP systolic 75–136; BP diastolic 32–65; PULSE 98–119; RESP 17–25; TEMP 36.4–37.6; O2SAT 87–97; BMI 39.9
[2024-05-15] MEDS: proCHLORPERazine 10 MG/2 ML Vial 5 MG IV (00:28)
[2024-05-15] MEDS: 0.9% Saline Lock 10 ML Syringe IV ×2 (00:28→22:05)
[2024-05-15 00:38] LABS: Bedside Glucose 119 mg/dL (74-106)
--- NOTE | 2024-05-15 02:09 | PCM.HOSP.N ---
Hospitalist Note Patient with ongoing lethargy, arousable but very fatigued. Not improved. ABG with noted CO2 mild elevation from earlier in the day prior. Will repeat ABG, obtain NH and administer UT tylenol for low grade F.
[2024-05-15 03:47] LABS: Allen Test Positive; Base Excess 3 mmol/L (-2 to +2); Bicarbonate 27.4 mmol/L (22-26); Blood Gas Specimen Type ART; Mode Not entered; O2 Delivery Device Cannula; PO2 76 mmHG (75-100); SITE L Radial; SO2 96 % (95-99); Total Carbon Dioxide 29 mmol/L; pCO2 39.5 mmHg (35-45); pH 7.45 (7.35-7.45)
[2024-05-15] MEDS: Ondansetron 4 MG/2 ML Vial IV (04:15)
[2024-05-15] MEDS: 0.9% Normal Saline (250mL Bag) 250 ML 999 ML IV (04:15)
--- NOTE | 2024-05-15 05:16 | NURSING ---
omero bingham called about pt being transferred but only got answer machine message left
--- NOTE | 2024-05-15 05:20 | RAD_ITS ---
HISTORY: SBO -- portable. TECHNIQUE: XR Abdomen 1 View. COMPARISON: CT 05/14/2024. FINDINGS: BOWEL GAS PATTERN: Gaseous distention dilatation of stomach and small bowel again seen. FREE AIR: Not assessed on supine view. CALCIFICATIONS: Vascular calcifications observed. BONES: Degenerative change. SOFT TISSUES: Limited evaluation due to body habitus. Surgical clips and suture in the pelvis. RAD/Abdomen Single View IMPRESSION: Persistent small bowel obstruction. Electronically Signed: Daniela Black MD at 10:12 EDT ,
[2024-05-15] MEDS: 0.9% Normal Saline (1000mL) 1,000 ML 999 ML IV (06:22)
--- NOTE | 2024-05-15 06:49 | EX.PCM.CONCC ---
Assessment & Plan Assessment/Plan (1) Acute hypotension: PLAN: Plan RECOMMENDATIONS: 1. Fluid resuscitation as ordered. 2. Initiate vasopressors if the patient develops fluid refractory hypotension. 3. Continue bronchodilator therapy. 4. Continue PPI therapy. 5. Await input from general surgery regarding possible SBO. 6. Maintain n.p.o. status for now. 7. Check urine analysis and repeat labs this morning. IMPRESSIONS: 1. Hypotension The patient initially presented to the hospital several days of nausea, vomiting and diarrhea. I suspect that her hypotension is likely related to relative hypovolemia in the setting of the aforementioned symptoms. Plan to continue aggressive fluid resuscitation as ordered. If the patient were to develop fluid refractory hypotension, we will plan to initiate vasopressor support. 2. Nausea, vomiting and diarrhea/questionable SBO Unclear etiology. The patient was hospitalized in September under similar circumstances. The etiology at that time was felt to be viral gastroenteritis. Continue antiemetics and supportive care for now. General surgery is following to assist with medical management. Awaiting any additional recommendations at this time. 3. History of diabetes mellitus/morbid obesity/paroxysmal atrial fibrillation/history of CVA Complicates care, management, recovery and prognosis. Continue supportive measures as noted above. The patient denied to me that she has ever been diagnosed with sleep apnea. However, the patient is undoubtedly at high risk for underlying sleep disordered breathing. This note was generated with [employer] dictation software. It may contain incorrect words, spelling, and punctuation that were not noted in checking the note before signing. HPI Consult Data Date of Consult: 05/15/24 HPI Narrative Reason for Consultation: Hypotension HPI Narrative: The patient is a 68-year-old female, with a history as outlined below, who presented to the emergency department via EMS on May 14 with abdominal pain, nausea, vomiting and diarrhea of several days duration. The patient has a medical history that includes recurrent ventral hernia, prior hospitalization for intractable nausea vomiting and diarrhea, diabetes mellitus, atrial fibrillation, history of cardioembolic stroke, hypertension, hyperlipidemia, GERD and morbid obesity. On presentation to the emergency department, the patient was documented to be afebrile and hemodynamically stable. Laboratory evaluation revealed a normal white blood cell count. Platelet count was within normal limits. ABG was notable for a pH of 7.38 with a pCO2 of 49 and pO2 of 69. Chemistry profile was notable for a mildly elevated creatinine of 1.05. Lactate was elevated at 2.1. Lipase was within normal limits. CT abdomen demonstrated findings concerning for a possible small bowel obstruction. Enteric panel along with blood cultures were collected. Overnight, the patient was noted to be quite fatigued with somnolence and borderline blood pressures. She apparently refused NG placement. In total, the patient had received 2.5 L of supplemental IV fluid hydration. An additional fluid bolus was ordered and the patient was transferred from the medical surgical floor to the ICU due to borderline hemodynamics. At the present time, the patient is alert and arousable. She denies any abdominal pain. She has not had any further diarrhea according to nursing staff. [facility] Medical History Wears glasses Former smoker Obesity Ambulates with cane Stroke/cerebrovascular accident Difficulty in walking Poor historian Recurrent incisional hernia with incarceration Incarcerated ventral hernia Obstructive sleep apnea Atrial fibrillation Intraventricular hemorrhage Embolic stroke GERD (gastroesophageal reflux disease) Obesity (BMI 30-39.9) Hyperlipidemia Hypertension Diabetes mellitus Home Medications ?Medication ?Instructions ?Recorded ?Last Taken ?Type omeprazole 20 mg capsule,delayed 20 mg PO DAILY GERd 05/29/14 02/23/21 History release amlodipine 10 mg tablet (Norvasc) 10 mg PO QHS HTN 10/04/16 02/23/21 History apixaban 5 mg tablet (Eliquis) 5 mg PO BID blood thinner 10/04/16 12/26/21 History atorvastatin 80 mg tablet 80 mg PO QHS 10/25/16 02/23/21 Rx lisinopril 40 mg tablet 40 mg PO DAILY HTN 10/25/16 02/23/21 Rx carvedilol 12.5 mg tablet 12.5 mg PO BID HTN 01/23/21 02/23/21 History pioglitazone 15 mg tablet 15 mg PO DAILY DM #30 tabs 10/09/22 Unknown Rx glipizide 10 mg tablet 10 mg PO BID DM 08/09/23 Unknown History benzonatate 200 mg capsule 200 mg PO TID 01/01/24 Unknown History dapagliflozin propanediol 10 mg 10 mg PO QDAY 01/01/24 Unknown History tablet (Farxiga) diphenoxylate-atropine 2.5 1 tab PO Q8H PRN diarrhea 01/01/24 Unknown History mg-0.025 mg tablet gabapentin 600 mg tablet 600 mg PO QDAY 01/01/24 Unknown History loratadine 10 mg tablet (Allergy 10 mg PO DAILY ALLERGIES 01/01/24 Unknown History Relief (loratadine)) metformin 500 mg tablet 500 mg PO BID DM 01/01/24 Unknown History tramadol 50 mg tablet 50 mg PO TID PRN pain #15 tabs 02/26/24 Unknown Rx albuterol sulfate 90 mcg/actuation 2 inh inhalation Q4H PRN shortness 05/14/24 Unknown History aerosol inhaler of breath or wheezing dulaglutide 4.5 mg/0.5 mL 4.5 mg subcut QWEEK DM 05/14/24 Unknown History subcutaneous pen injector (Trulicity) hydrocodone-acetaminophen 5-325mg 1 tab PO TID PRN pain 05/14/24 Unknown History 5mg-325mg insulin glargine 100 unit/mL (3 15 unit subcut DAILY 05/14/24 Unknown History mL) subcutaneous pen (Lantus Solostar U-100 Insulin) lidocaine 5 % topical patch 1 patch topical DAILY 05/14/24 Unknown History multivitamin with folic acid 400 1 tab PO DAILY 05/14/24 Unknown History mcg tablet (Daily-Levon (with folic acid)) Allergy/AdvReac Type Severity Reaction Status Date / Time iodine Allergy Mild Itching Verified 05/14/24 10:01 Penicillins Allergy Mild Itching Verified 05/14/24 10:01 Family History Father CVA (cerebral vascular accident) Mother Diabetes Stomach cancer Other High cholesterol Hypertension Surgical History (Updated 05/14/24 @ 14:43 by Odette Wiseman) History of cholecystectomy Hx of colonoscopy Status post debridement History of hysterectomy S/P repair of ventral hernia Social History household members: none Smoking Status: Former smoker alcohol intake: never substance use type: does not use what type of physical activity do you participate in: walking frequency: daily ROS ROS Narrative 10 systems were reviewed with pertinent positives as noted in the HPI above. Physical Exam Const alert and no apparent distress Constitutional Narrative: Somnolent but easily arousable. Morbidly obese. General Appearance: cooperative and ill appearing HEENT normocephalic and head/scalp atraumatic Eyes PERRL, EOMs intact bilaterally and conjunctivae normal Neck supple General: trachea midline Chest inspection of chest normal Resp normal respiratory effort Auscultation: Negative for rales, rhonchi or wheezes Cardio S1 normal heart sound and S2 normal heart sound Rate: tachycardic GI soft to palpation and non-tender Extremity General Extremity: edema; Negative for clubbing Skin Skin Narrative: Psoriatic plaques noted over dorsum of hands Neuro CN's II-XII intact bilaterally and no focal motor deficits Psych Mood & Affect: flat affect Lab / Micro Data 05/14/24 10:22 05/14/24 10:22 Labs: Laboratory Results - last 24 hr 05/14/24 10:22: WBC 9.2, RBC 5.54 H, Hgb 13.2, Hct 43.5, MCV 78.5 L, MCH 23.8 L, MCHC 30.3 L, RDW Std Deviation 50.9 H, RDW Coeff of Faby 18.6 H, Plt Count 238, MPV 9.2, Immature Gran % (Auto) 0.400, Neut % (Auto) 84.1 H, Lymph % (Auto) 11.3 L, [place] % (Auto) 3.4, Eos % (Auto) 0.3, Baso % (Auto) 0.5, Absolute Neuts (auto) 7.7, Absolute Lymphs (auto) 1.04, Nucleated RBC % 0, Sodium 138, Potassium 4.6, Chloride 104, Carbon Dioxide 32.0, Anion Gap 2 L, BUN 20 H, Creatinine 1.05 H, Estim Creat Clear Calc 70.46, Est GFR (MDRD) Af Amer 67, Est GFR (MDRD) Non-Af 55 L, BUN/Creatinine Ratio 19.0, Glucose 158 H, Calcium 10.8 H, Total Bilirubin 0.40, AST 19, ALT 19, Alkaline Phosphatase 116, Total Protein 7.5, Albumin 3.0 L, Globulin 4.5 H, Albumin/Globulin Ratio 0.7 L, Lipase 63 05/14/24 13:50: Lactic Acid 2.1 H* 05/14/24 18:08: Lactic Acid 2.6 H* 05/14/24 18:51: POC Glucose 146 H 05/15/24 00:14: POC Glucose 119 H 05/15/24 02:36: Ammonia 22.0 ABG Data ABG results: ABG 05/14/24 05/15/24 11:41 03:42 Specimen Type ART ART Sample Site R Radial L Radial pH 7.38 7.45 Bicarbonate Actual 28.7 H 27.4 H Total CO2 30 29 Base Excess 4 H 3 H O2 Saturation 93 L 96 O2 % 28.0 2.0 ABG pCO2 48.9 H 39.5 ABG pO2 69 L 76 Angel Test Positive Positive O2 Delivery Device Cannula Cannula Vent Mode Not entered Not entered Imaging Radiology Impression Chest X-Ray 05/14/24 11:46 IMPRESSION: No radiographic evidence of acute cardiopulmonary disease. Electronically Signed: Wild Bateman MD at 13:18 EDT , Abdomen CT 05/14/24 15:50 IMPRESSION: Small bowel obstruction possibly due to involvement in the right lower quadrant ventral hernia. Electronically Signed: Navdeep Garcia MD at 16:39 EDT , ADDENDUM: 05/14/24 1716 IMPRESSION: Small bowel obstruction possibly due to involvement in the right lower quadrant ventral hernia. N.B. : The above Results were Read Back by Navdeep Garcia MD to Lolis Vega RN, and understanding confirmed on 05/14/2024 17:09:35 (ET). Electronically Signed: Navdeep Garcia MD at 16:39 EDT , Charges/Coding Visit Charges Inpatient E&M: 53064 Init Hosp L3
[2024-05-15] MEDS: Ipratropium/Albuterol Sulfate 3 ML AMPUL.NEB INHALATION ×3 (07:21→19:40)
[2024-05-15 08:44] LABS: Bedside Glucose 98 mg/dL (74-106)
--- NOTE | 2024-05-15 09:09 | CON.PCM.SX_ITS ---
Assessment & Plan Assessment/Plan (1) Nausea, vomiting and diarrhea: PLAN: Plan The patient is a 68-year-old female admitted with chief complaints of nausea, vomiting, and diarrhea. Workup including CAT scan revealed dilatation of the stomach and small bowel and was read as concerning for possible small bowel obstruction. She has a known incisional hernia recurrence and CT scan alluded to the possibility of involvement of the hernia with a small bowel obstruction. Clinically she is passing stools, which would favor an ileus versus a bowel obstruction. This could be from viral etiology or other infection. In review of the CT scan images, I think it is less likely that the hernia is contributing to this ileus versus small bowel obstruction picture. The site of the hernia does not seem to be overtly tender. At this point I have no surgical plans. I would recommend continued supportive care with aggressive IV fluid resuscitation. I suspect her hypotension may be due to hypovolemia. Agree with stool studies to rule out C. difficile and other infectious etiologies. We will continue to follow along and advise accordingly. Certainly if her clinical condition worsens then surgical intervention could be reconsidered. HPI Consult Data Date of Consult: 05/15/24 HPI Narrative Reason for Consultation: Small bowel obstruction HPI Narrative: ZOIE DE LA PAZ, is a 68 F who presented to the emergency department yesterday with complaints of nausea, vomiting, diarrhea, and abdominal pain. She has a past medical history of diabetes, atrial fibrillation, cardioembolic stroke, hypertension, hyperlipidemia, GERD and morbid obesity. She had a prior admission for similar symptoms which was felt to be most likely viral gastroenteritis. She does have a history of a previous ventral hernia repair and has a known recurrence. She presented to the emergency room yesterday with these complaints. She admitted that the symptoms had been occurring for several days. She was seen evaluated by the ER staff. Workup included blood work as well as a CT scan. The CT scan seem to indicate small bowel dilatation without an obvious transition point. The CT scan was read as a small bowel obstruction with possible involvement of the hernia recurrence but a definitive transition point at that location could not be confirmed. She was subsequently admitted overnight to the medicine service and a surgical consult was obtained. She was recommended to NG tube placement however she refused. She did have several large emesis overnight. Initially she was hemodynamically stable however towards this morning she began having some hypotension despite fluids. She was subsequently transferred to the ICU where she received some additional fluid and now remains stable. General surgery consult was obtained for further evaluation and treatment recommendations. She is a very poor historian however she denied any significant abdominal pain when seen earlier this morning. [facility] Medical History Wears glasses Former smoker Obesity Ambulates with cane Stroke/cerebrovascular accident Difficulty in walking Poor historian Recurrent incisional hernia with incarceration Incarcerated ventral hernia Obstructive sleep apnea Atrial fibrillation Intraventricular hemorrhage Embolic stroke GERD (gastroesophageal reflux disease) Obesity (BMI 30-39.9) Hyperlipidemia Hypertension Diabetes mellitus Home Medications ?Medication ?Instructions ?Recorded ?Last Taken ?Type omeprazole 20 mg capsule,delayed 20 mg PO DAILY GERd 05/29/14 02/23/21 History release amlodipine 10 mg tablet (Norvasc) 10 mg PO QHS HTN 10/04/16 02/23/21 History apixaban 5 mg tablet (Eliquis) 5 mg PO BID blood thinner 10/04/16 12/26/21 History atorvastatin 80 mg tablet 80 mg PO QHS 10/25/16 02/23/21 Rx lisinopril 40 mg tablet 40 mg PO DAILY HTN 10/25/16 02/23/21 Rx carvedilol 12.5 mg tablet 12.5 mg PO BID HTN 01/23/21 02/23/21 History pioglitazone 15 mg tablet 15 mg PO DAILY DM #30 tabs 10/09/22 Unknown Rx glipizide 10 mg tablet 10 mg PO BID DM 08/09/23 Unknown History benzonatate 200 mg capsule 200 mg PO TID 01/01/24 Unknown History dapagliflozin propanediol 10 mg 10 mg PO QDAY 01/01/24 Unknown History tablet (Farxiga) diphenoxylate-atropine 2.5 1 tab PO Q8H PRN diarrhea 01/01/24 Unknown History mg-0.025 mg tablet gabapentin 600 mg tablet 600 mg PO QDAY 01/01/24 Unknown History loratadine 10 mg tablet (Allergy 10 mg PO DAILY ALLERGIES 01/01/24 Unknown History Relief (loratadine)) metformin 500 mg tablet 500 mg PO BID DM 01/01/24 Unknown History tramadol 50 mg tablet 50 mg PO TID PRN pain #15 tabs 02/26/24 Unknown Rx albuterol sulfate 90 mcg/actuation 2 inh inhalation Q4H PRN shortness 05/14/24 Unknown History aerosol inhaler of breath or wheezing dulaglutide 4.5 mg/0.5 mL 4.5 mg subcut QWEEK DM 05/14/24 Unknown History subcutaneous pen injector (Trulicity) hydrocodone-acetaminophen 5-325mg 1 tab PO TID PRN pain 05/14/24 Unknown History 5mg-325mg insulin glargine 100 unit/mL (3 15 unit subcut DAILY 05/14/24 Unknown History mL) subcutaneous pen (Lantus Solostar U-100 Insulin) lidocaine 5 % topical patch 1 patch topical DAILY 05/14/24 Unknown History multivitamin with folic acid 400 1 tab PO DAILY 05/14/24 Unknown History mcg tablet (Daily-Levon (with folic acid)) Allergy/AdvReac Type Severity Reaction Status Date / Time iodine Allergy Mild Itching Verified 05/14/24 10:01 Penicillins Allergy Mild Itching Verified 05/14/24 10:01 Family History Father CVA (cerebral vascular accident) Mother Diabetes Stomach cancer Other High cholesterol Hypertension Surgical History History of cholecystectomy Hx of colonoscopy Status post debridement History of hysterectomy S/P repair of ventral hernia Social History household members: none Smoking Status: Former smoker alcohol intake: never substance use type: does not use what type of physical activity do you participate in: walking frequency: daily Physical Exam Const no apparent distress and well nourished Constitutional Narrative: Patient was quite somnolent earlier this morning and would frequently fall asleep while speaking with her. General Appearance: cooperative HEENT normocephalic Eyes PERRL Resp Effort and Inspection: able to speak in complete sentences GI GI Narrative: Abdomen is morbidly obese. Minimal tenderness with palpation diffusely. Region in the right lower quadrant is somewhat firm and most likely corresponds to the area of hernia recurrence. This was slightly tender. No overlying skin erythema or other changes. Examination of this hernia is limited due to body habitus but there was no significant exquisite tenderness over this hernia to suggest strangulation/ischemia. I suspect her hernia is chronically incarcerated. Lab / Micro Data 05/14/24 10:22 05/14/24 10:22 Labs: Laboratory Results - last 24 hr 05/14/24 10:22: WBC 9.2, RBC 5.54 H, Hgb 13.2, Hct 43.5, MCV 78.5 L, MCH 23.8 L, MCHC 30.3 L, RDW Std Deviation 50.9 H, RDW Coeff of Faby 18.6 H, Plt Count 238, MPV 9.2, Immature Gran % (Auto) 0.400, Neut % (Auto) 84.1 H, Lymph % (Auto) 11.3 L, [place] % (Auto) 3.4, Eos % (Auto) 0.3, Baso % (Auto) 0.5, Absolute Neuts (auto) 7.7, Absolute Lymphs (auto) 1.04, Nucleated RBC % 0, Sodium 138, Potassium 4.6, Chloride 104, Carbon Dioxide 32.0, Anion Gap 2 L, BUN 20 H, Creatinine 1.05 H, Estim Creat Clear Calc 70.46, Est GFR (MDRD) Af Amer 67, Est GFR (MDRD) Non-Af 55 L, BUN/Creatinine Ratio 19.0, Glucose 158 H, Calcium 10.8 H, Total Bilirubin 0.40, AST 19, ALT 19, Alkaline Phosphatase 116, Total Protein 7.5, Albumin 3.0 L , Globulin 4.5 H, Albumin/Globulin Ratio 0.7 L, Lipase 63 05/14/24 13:50: Lactic Acid 2.1 H* 05/14/24 18:08: Lactic Acid 2.6 H* 05/14/24 18:51: POC Glucose 146 H 05/15/24 00:14: POC Glucose 119 H 05/15/24 02:36: Ammonia 22.0 05/15/24 07:09: POC Glucose 98 Micro: Microbiology 05/15/24 03:15 Stool Stool Lactoferrin - Final 05/15/24 03:15 Stool Stool Occult Blood (AISHA) - Final Occult Blood Positive ABG Data ABG results: ABG 05/14/24 05/15/24 11:41 03:42 Specimen Type ART ART Sample Site R Radial L Radial pH 7.38 7.45 Bicarbonate Actual 28.7 H 27.4 H Total CO2 30 29 Base Excess 4 H 3 H O2 Saturation 93 L 96 O2 % 28.0 2.0 ABG pCO2 48.9 H 39.5 ABG pO2 69 L 76 Angel Test Positive Positive O2 Delivery Device Cannula Cannula Vent Mode Not entered Not entered Imaging Radiology Impression Chest X-Ray 05/14/24 11:46 IMPRESSION: No radiographic evidence of acute cardiopulmonary disease. Electronically Signed: Wild Bateman MD at 13:18 EDT , Abdomen CT 05/14/24 15:50 IMPRESSION: Small bowel obstruction possibly due to involvement in the right lower quadrant ventral hernia. Electronically Signed: Navdeep Garcia MD at 16:39 EDT , ADDENDUM: 05/14/24 1716 IMPRESSION: Small bowel obstruction possibly due to involvement in the right lower quadrant ventral hernia. N.B. : The above Results were Read Back by Navdeep Garcia MD to Lolis Vega RN, and understanding confirmed on 05/14/2024 17:09:35 (ET). Electronically Signed: Navdeep Garcia MD at 16:39 EDT , Charges/Coding Visit Charges Inpatient E&M: 25244 Init Hosp L3
--- NOTE | 2024-05-15 09:52 | CASEMGMT ---
RN CM Assessment Per ICU Rounds, the pt is disoriented and is currently unable to answer this RN CM questions for assessment. TC to pt Aubrie JONES (Niece). Aubrie states that she is willing to answer this RN CM questions for assessment. Care providers, pharmacy, and demographics verified. Admitting dx: N/V, Hypoxia LACE Strata: 3 PCP: Dennis Pelayo Specialists: Denies Preferred Pharmacy: [facility] Insurance: [employer] [facility] [place] Prescription Benefit: Yes LNOK: Aubrie Khan (Niece) Living Arrangements: Pt lives alone in a single level apartment with 2 steps to enter ADLs/IADLs: Pt niece states that the pt is currently requiring assistance. Pt niece states that she is unsure of how the pt was managing at home alone. Transportation: Pt does not drive. Pt niece is able to provide transportation. Pt also uses the [facility] Van DME: Working [employer] and sufficient supplies. Raised TS. Cane. FWW. Grab bars. Medical alert system HHC/SNF: with [facility] . Pt was set up with [facility] in the past but denies their services once [facility] tried to come to pt home Plan: TBD. PT evaluation is pending. CM and SW to follow pt progression in the hospital as well as therapy to decipher the safest DC plan moving forward. CM to follow oxygen needs as well. Fredi Bhandari RN, CM
[2024-05-15] MEDS: Pantoprazole Sodium 40 MG in 0.9% Normal Saline (100mL MB+) 100 ML 330 MG IV ×2 (10:07→22:05)
[2024-05-15] MEDS: 0.9% Normal Saline (1000mL) 1,000 ML 125 ML IV (10:12)
[2024-05-15 10:24] LABS: Absolute Lymphocyte Count 1.33 X10^3/uL (0.83-4.51); Absolute Neutrophil Count 5.6 X10^3/uL (2.0-7.7); Basophil# 0.03 X10^3/uL; Basophil% 0.4 % (0-1); Eosinophil# 0.02 X10^3/uL; Eosinophils% 0.3 % (0-5); Hematocrit 34.9 % (37-47); Hemoglobin 10.6 g/dL (12.0-15.0); Lymphocyte # 1.33 X10^3/ul (0.83-4.51); Lymphocyte % 16.8 % (19-41); Mean Corp Hgb Conc 30.4 g/dL (32-36); Mean Corpuscular Volume 79.1 fL (81-99); Mean Platelet Vol. 9.1 fl (6.2-12.0); Monocyte# 0.96 X10^3/uL; Monocyte% 12.1 % (0-10); NRBC Flagged by Analyzer 0 % (0-5); Neutrophil # 5.58 X10^3/uL (2.7-7.7); Neutrophil % 70.1 % (47-70); Platelet Count 187 K/mm3 (150-450); RBC Distribution Width SD 51.6 fl (35.1-43.9); Red Blood Count 4.41 M/mm3 (4.2-5.4); White Blood Count 7.9 K/mm3 (4.4-11.0)
[2024-05-15 10:38] LABS: Anion Gap 3 (5-15); BUN 39 mg/dL (7-18); BUN/Creat Ratio 36.4 RATIO (10-20); Calcium,Total 8.8 mg/dL (8.5-10.1); Chloride 114 mmol/L (98-107); Creatinine, Serum 1.07 mg/dL (0.55-1.02); EST Glomerular Filtration Rate 54 mL/min (>60); Est Glom Filt Rate - Afr Amer 65 mL/min (>60); Estimated Creatinine Clearance 67.45 ml/min; Glucose 94 mg/dL (74-106); Potassium 4.1 mmol/L (3.5-5.1); Sodium Level 145 mmol/L (136-145)
[2024-05-15 12:59] LABS: Bedside Glucose 78 mg/dL (74-106)
--- NOTE | 2024-05-15 12:59 | NURSING ---
Explained need to straight cath to pt in order to obtain clean urine sample as she has been incontinent this morning and it has been mixed w/ stool. Pt adimantly refusing straight cath at this time. Pt claims she is continent and will let staff know the next time she has to urinate.
--- NOTE | 2024-05-15 13:21 | NURSING ---
Pt has been normotensive for shift. Cancelled PICC placement at this time.
--- NOTE | 2024-05-15 14:26 | PN_ITS ---
Subjective Subjective Patient seen and examined. She was quite lethargic and would open her eyes to sternal rub and voice call but would not really answer any questions. Unable to do review of systems. She has remained hemodynamically stable and is on 2 L of oxygen. Objective Data Objective Data Vital Signs: Vital Signs Temp Pulse Resp BP Pulse Ox O2 Del Method O2 Flow Rate 97.6 F L 99 18 119/52 L 92 Nasal Cannula 2 05/15/24 13:00 05/15/24 13:09 05/15/24 13:09 05/15/24 13:00 05/15/24 13:09 05/15/24 13:09 05/15/24 13:09 Oxygen Flow Rate (L/min) 2 Oxygen Delivery Method Nasal Cannula Weight: 263 lb 3.711 oz Body Mass Index (BMI) 39.9 Intake & Output: Intake and Output for Last 24 Hours 05/13/24 05/14/24 05/15/24 23:59 23:59 23:59 Intake Total 1999 2360 / 2360 Output Total 100 / 100 Balance 1999 2260 / 2260 Lab / Micro Data 05/15/24 10:15 05/15/24 10:15 Labs: Laboratory Results - last 24 hr 05/14/24 13:50: Lactic Acid 2.1 H* 05/14/24 18:08: Lactic Acid 2.6 H* 05/14/24 18:51: POC Glucose 146 H 05/15/24 00:14: POC Glucose 119 H 05/15/24 02:36: Ammonia 22.0 05/15/24 07:09: POC Glucose 98 05/15/24 10:15: WBC 7.9, RBC 4.41, Hgb 10.6 L, Hct 34.9 L, MCV 79.1 L, MCH 24.0 L, MCHC 30.4 L, RDW Std Deviation 51.6 H, RDW Coeff of Faby 18.0 H, Plt Count 187, MPV 9.1, Immature Gran % (Auto) 0.300, Neut % (Auto) 70.1 H, Lymph % (Auto) 16.8 L, [place] % (Auto) 12.1 H, Eos % (Auto) 0.3, Baso % (Auto) 0.4, Absolute Neuts (auto) 5.6, Absolute Lymphs (auto) 1.33, Nucleated RBC % 0, Sodium 145, Potassium 4.1, Chloride 114 H, Carbon Dioxide 28.0, Anion Gap 3 L, BUN 39 H, C reatinine 1.07 H, Estim Creat Clear Calc 67.45, Est GFR (MDRD) Af Amer 65, Est GFR (MDRD) Non-Af 54 L, BUN/Creatinine Ratio 36.4 H, Glucose 94, Calcium 8.8 05/15/24 12:41: POC Glucose 78 Micro: Microbiology 05/15/24 03:15 Stool Stool Lactoferrin - Final 05/15/24 03:15 Stool Enteric Bacteriology - Final 05/15/24 03:15 Stool Stool Occult Blood (AISHA) - Final Occult Blood Positive ABG Data ABG results: ABG 05/15/24 03:42 Specimen Type ART Sample Site L Radial pH 7.45 Bicarbonate Actual 27.4 H Total CO2 29 Base Excess 3 H O2 Saturation 96 O2 % 2.0 ABG pCO2 39.5 ABG pO2 76 Angel Test Positive O2 Delivery Device Cannula Vent Mode Not entered Radiography Diagnostic Testing: Radiology Impression Abdomen CT 05/14/24 15:50 IMPRESSION: Small bowel obstruction possibly due to involvement in the right lower quadrant ventral hernia. Electronically Signed: Navdeep Garcia MD at 16:39 EDT Reading Location ID and State: [facility] / [place] Tel , Service support , ADDENDUM: 05/14/24 1716 IMPRESSION: Small bowel obstruction possibly due to involvement in the right lower quadrant ventral hernia. N.B. : The above Results were Read Back by Navdeep Garcia MD to Lolis Vega RN, and understanding confirmed on 05/14/2024 17:09:35 (ET). Electronically Signed: Navdeep Garcia MD at 16:39 EDT , KUB X-Ray 05/15/24 05:20 IMPRESSION: Persistent small bowel obstruction. Electronically Signed: Daniela Black MD at 10:12 EDT , Physical Exam Const Constitutional Narrative: confused, lethargic, opens her eyes in response to voice call and sternal rub, but unable to answer any questions. Orientation / Consciousness: lethargic HEENT normocephalic and head/scalp atraumatic Mouth: dry mucous membranes Eyes PERRL and EOMs intact bilaterally Neck no lymphadenopathy and supple Lymph Lymphatic: no lymphadenopathy noted and no lymphedema noted Resp Resp Narrative: mildly diminished breath sounds bibasally, no wheezes or crackles. On 2L of oxygen by nasal canula Cardio regular rate, regular rhythm, S1 normal heart sound, S2 normal heart sound and no murmurs GI normal to inspection, nondistended, normoactive bowel sounds, soft to palpation, non-tender and non-distended Extremity normal capillary refill, no clubbing, cyanosis or edema and no calf tenderness General Extremity: no tenderness to palpation of joints or extremities Skin General Skin Exam: no breakdown Neuro Neuro Narrative: lethargic, weak and frail, moves all extremities spontaneously. Motor Exam: general weakness Psych Psych Narrative: lethargic, weak Assessment & Plan Assessment/Plan (1) Acute hypotension: PLAN: Plan #Hypotension * Blood pressure was running low. I she was admitted with complaint of nausea, vomiting and diarrhea with abdominal pain. * CT of the abdomen and pelvis showed small bowel obstruction possibly due to involvement ini the right lower quadrant ventral hernia. * Currently being hydrated with IV fluids. Has not required vasopressors yet. * Critical care on board. * General surgery on board and does not think that she has a small bowel obstruction as she is passing stools and so favors an IV as well as a small bowel obstruction. General surgery also reviewed CT scan images and thinks is less likely that the hernia is contributing to this. General surgery did recommend conservative management with aggressive fluid resuscitation #Nausea and vomiting with probable small bowel obstruction * Patient refused NG tube insertion. * CT scan as above. COnservative management for now. COntinue gentle hydration with IVF * IV zofran prn #Type 2 diabetes mellitus with hyperglycemia: A1c in July 2023 was 11.2. Currently NPO. Accu-Cheks every 6 hourly as she is NPO. #History of cardioembolic stroke: On Eliquis. #Hypertension: BP meds on hold as she is hypotensive. #Hyperlipidemia: On statin but this is on hold as she is NPO. #GERD: On PPI #morbid obesity: BMI is 40. Complicates acute care, expected recovery and prognosis DVT prophylaxis: place on therapeutic lovenox as she is NPO so cant be on her eliquis Code status: DNRCCA no intubation Charges/Coding Visit Charges Inpatient E&M: 90681 Subs Hosp L3
[2024-05-15 15:25] LABS: Color, Urine Yellow (Yellow); Glucose, Dipstick 250 mg/dl (Normal); Ketone-Dipstick Negative (Negative); Leukocyte Esterase-Dipstick 25 /ul (Negative); Mucous, Urine 0 SEEN /hpf (<or=2+); Nitrite-Dipstick Negative (Negative); Occult Blood-Urine 25 /ul (Negative); Protein-Dipstick 30 mg/dl (Negative); Urine Clarity Sl. Cloudy (Clear); Urine Urobilinogen 1 mg/dl (Normal)
--- NOTE | 2024-05-15 15:32 | CASEMGMT ---
RN CM talked to pt CM through [facility] (Kera Guadalupe @ [phone]). Kera updated on pt status and plan of care. Kera states that the pt is active with [facility]. Kera also states that the pt has home aides that come every Sunday and Sunday. Kera also states that the pt has a [facility] alert system. SW updated.
[2024-05-15 15:37] LABS: Urine Bilirubin Dipstick 1 mg/dL (Negative)
[2024-05-15 15:38] LABS: Bacteria 2+ /hpf (None Seen); Squamous Epithelial Cells - UA 0-5 SEEN /hpf (5-10); Yeast-Urine RARE /hpf (None Seen)
[2024-05-15 15:39] LABS: Hyaline Cast 0-5 SEEN /lpf (0-5); White Blood Cells 0-5 SEEN /hpf (0-5)
[2024-05-15 15:41] LABS: Red Blood Cells-Urine 0-5 SEEN /hpf (0-5)
--- NOTE | 2024-05-15 16:44 | PCM.PN.BLA ---
Progress Note Patient seen and examined. She denies any significant abdominal pain at the present time. Blood pressure remained stable. She was sitting up talking on the telephone on my arrival. She appeared comfortable. Abdomen remains minimally tender. She continues to deny any flatus but did state that she had a bowel movement earlier today. No surgical plans at present. Will continue to follow
[2024-05-15 18:55] LABS: Bedside Glucose 75 mg/dL (74-106)
[2024-05-15 23:41] LABS: Bedside Glucose 74 mg/dL (74-106)
[2024-05-16] VITALS (36 sets, daily range): BP systolic 91–156; BP diastolic 47–88; PULSE 98–139; RESP 15–25; TEMP 36.2–36.7; O2SAT 88–98; BMI 40.1
[2024-05-16 04:42] LABS: Absolute Lymphocyte Count 1.21 X10^3/uL (0.83-4.51); Absolute Neutrophil Count 5.1 X10^3/uL (2.0-7.7); Basophil# 0.03 X10^3/uL; Basophil% 0.4 % (0-1); Eosinophil# 0.11 X10^3/uL; Eosinophils% 1.5 % (0-5); Hematocrit 37.7 % (37-47); Hemoglobin 11.2 g/dL (12.0-15.0); Lymphocyte # 1.21 X10^3/ul (0.83-4.51); Mean Corp Hgb Conc 29.7 g/dL (32-36); Mean Corpuscular Hgb 23.7 pg (27.0-32.0); Mean Corpuscular Volume 79.7 fL (81-99); Monocyte# 0.69 X10^3/uL; Monocyte% 9.7 % (0-10); NRBC Flagged by Analyzer 0 % (0-5); Neutrophil # 5.05 X10^3/uL (2.7-7.7); Platelet Count 188 K/mm3 (150-450); RBC Distribution Width CV 17.9 % (11.6-14.6); RBC Distribution Width SD 51.8 fl (35.1-43.9); Red Blood Count 4.73 M/mm3 (4.2-5.4); White Blood Count 7.1 K/mm3 (4.4-11.0)
[2024-05-16 05:02] LABS: Anion Gap 1 (5-15); BUN 26 mg/dL (7-18); BUN/Creat Ratio 33.4 RATIO (10-20); Calcium,Total 9.7 mg/dL (8.5-10.1); Chloride 114 mmol/L (98-107); Creatinine, Serum 0.78 mg/dL (0.55-1.02); EST Glomerular Filtration Rate 78 mL/min (>60); Est Glom Filt Rate - Afr Amer 94 mL/min (>60); Estimated Creatinine Clearance 90.21 ml/min; Glucose 74 mg/dL (74-106); Potassium 4.5 mmol/L (3.5-5.1); Sodium Level 141 mmol/L (136-145)
[2024-05-16 06:03] LABS: Bedside Glucose 75 mg/dL (74-106)
--- NOTE | 2024-05-16 06:45 | RAD_ITS ---
STUDY: X-RAY - ABDOMEN/PELVIS REASON FOR EXAM: Female, 68 years old. sbo TECHNIQUE: 3 AP supine views of the abdomen and pelvis. COMPARISON: None. FINDINGS: Normal visualized lung bases. There is an unremarkable bowel gas pattern. There are postoperative changes in the pelvis. There is no demonstrated free abdominal air. Normal soft tissue structures. There is degenerative change of the spine. RAD/Abd Inc Decub and/or Erect IMPRESSION: No dilated loops of bowel seen. Electronically Signed: Ricci Johns MD at 9:48 EDT ,
--- NOTE | 2024-05-16 08:15 | RAD_ITS ---
Exam: Limited small bowel follow-through with water-soluble contrast. HISTORY: Small bowel perforation versus ileus. COMPARISON: Plain films 05/16/2024, 6:43 AM. FINDINGS: Exam is significantly limited by patient size. Images obtained after 1 hour show contrast throughout small bowel and in the right colon and transverse colon. This indicates no evidence for obstruction. Note note that because of the dilution of the water-soluble contrast, no comments can be made regarding the morphology or even presence or absence of distention of the small or large bowel loops. RAD/Small Bowel Series Only IMPRESSION: No evidence for obstruction. Electronically Signed: Presley Santos MD at 15:18 EDT ,
--- NOTE | 2024-05-16 08:51 | PN.SURG_ITS ---
Subjective Subjective Patient is currently in the ICU due to A-fib. Patient states she feels better and had bowel movements which were not diarrhea like they were at home. Patient would like a diet. Patient initially refused NG on admit. KUB does appear to be nonspecific. Objective Data Objective Data Vital Signs: Vital Signs Temp Pulse Resp BP Pulse Ox O2 Del Method O2 Flow Rate 98.0 F 139 H 22 H 156/84 H 93 Nasal Cannula 2 05/16/24 00:00 05/16/24 07:00 05/16/24 07:00 05/16/24 07:00 05/16/24 07:12 05/16/24 07:12 05/16/24 07:12 Oxygen Flow Rate (L/min) 2 Oxygen Delivery Method Nasal Cannula Weight: 264 lb 15.93 oz Body Mass Index (BMI) 40.1 Intake & Output: Intake and Output for Last 24 Hours 05/14/24 05/15/24 05/16/24 23:59 23:59 23:59 Intake Total 1999 3470 / 3470 Output Total 100 425 / 425 400 / 400 Balance 1999 3045 / 3045 -400 / -400 Lab / Micro Data 05/16/24 04:29 05/16/24 04:29 Labs: Laboratory Results - last 24 hr 05/15/24 10:15: WBC 7.9, RBC 4.41, Hgb 10.6 L, Hct 34.9 L, MCV 79.1 L, MCH 24.0 L, MCHC 30.4 L, RDW Std Deviation 51.6 H, RDW Coeff of Faby 18.0 H, Plt Count 187, MPV 9.1, Immature Gran % (Auto) 0.300, Neut % (Auto) 70.1 H, Lymph % (Auto) 16.8 L, [place] % (Auto) 12.1 H, Eos % (Auto) 0.3, Baso % (Auto) 0.4, Absolute Neuts (auto) 5.6, Absolute Lymphs (auto) 1.33, Nucleated RBC % 0, Sodium 145, Potassium 4.1, Chloride 114 H, Carbon Dioxide 28.0, Anion Gap 3 L, BUN 39 H, C reatinine 1.07 H, Estim Creat Clear Calc 67.45, Est GFR (MDRD) Af Amer 65, Est GFR (MDRD) Non-Af 54 L, BUN/Creatinine Ratio 36.4 H, Glucose 94, Calcium 8.8 05/15/24 12:41: POC Glucose 78 05/15/24 14:45: Urine Color Yellow, Urine Clarity Sl. Cloudy, Urine pH 6.0, Ur Specific [place] 1.020, Urine Protein 30 H, Urine Glucose (UA) 250 H, Urine Ketones Negative, Urine Occult Blood 25 H, Urine Nitrite Negative, Urine Bilirubin 1 H, Urine Urobilinogen 1 H, Ur Leukocyte Esterase 25 H, Urine RBC 0-5 SEEN, Urine WBC 0-5 SEEN, Ur Squamous Epith Cells 0-5 SEEN, Urine Bacteria 2+, Hyaline Casts 0-5 SEEN, Urine Mucus 0 SEEN, Urine Yeast RARE 05/15/24 18:38: POC Glucose 75 05/15/24 23:20: POC Glucose 74 05/16/24 04:29: WBC 7.1, RBC 4.73, Hgb 11.2 L, Hct 37.7, MCV 79.7 L, MCH 23.7 L, MCHC 29.7 L, RDW Std Deviation 51.8 H, RDW Coeff of Faby 17.9 H, Plt Count 188, MPV 9.0, Immature Gran % (Auto) 0.400, Neut % (Auto) 71.0 H, Lymph % (Auto) 17.0 L, [place] % (Auto) 9.7, Eos % (Auto) 1.5, Baso % (Auto) 0.4, Absolute Neuts (auto) 5.1, Absolute Lymphs (auto) 1.21, Nucleated RBC % 0, Sodium 141, Potassium 4.5, Chloride 114 H, Carbon Dioxide 26.0, Anion Gap 1 L, BUN 26 H, Creatinine 0.78, Estim Creat Clear Calc 90.21, Est GFR (MDRD) Af Amer 94, Est GFR (MDRD) Non-Af 78, BUN/Creatinine Ratio 33.4 H, Glucose 74, Calcium 9.7 05/16/24 05:44: POC Glucose 75 Micro: Microbiology 05/14/24 13:50 Blood Culture (Wb) - Anticubital Left Blood Culture - Preliminary No growth in 48 hours. 05/15/24 03:15 Stool Stool Lactoferrin - Final 05/15/24 03:15 Stool Enteric Bacteriology - Final 05/15/24 03:15 Stool Stool Occult Blood (AISHA) - Final Occult Blood Positive Radiography Diagnostic Testing: Radiology Impression KUB X-Ray 05/15/24 05:20 IMPRESSION: Persistent small bowel obstruction. Electronically Signed: Daniela Black MD at 10:12 EDT Reading Location ID and State: [facility] / [place] Tel , Service support , Physical Exam Const oriented x3 Cardio Rate: tachycardic GI soft to palpation GI Narrative: Tender mid abdomen only when trying to appreciate the hernia?unable to discretely feel the hernia due to body habitus. Assessment & Plan Assessment/Plan (1) Nausea, vomiting and diarrhea: PLAN: Plan The patient is a 68-year-old female admitted with chief complaints of nausea, vomiting, and diarrhea. Workup including CAT scan revealed dilatation of the stomach and small bowel and was read as concerning for possible small bowel obstruction. She has a known incisional hernia recurrence and CT scan alluded to the possibility of involvement of the hernia with a small bowel obstruction. Clinically she is passing stools, which would favor an ileus versus a bowel obstruction. Patient states she is having flatus and bowel movements. Patient's KUB is nonspecific. Unable to definitively feel that hernia on exam at this is typically very difficult due to body habitus as patient is well-known to me. Will plan to check Gastrografin small bowel follow-through prior to advancing diet. An Shah M.D. Pager: [phone] [facility] [address] [place] [address], [facility], [address] [place] [address] Office: [phone] Charges/Coding Visit Charges Inpatient E&M: 35734 Subs Hosp L2
--- NOTE | 2024-05-16 09:43 | PCM.PN.TICU ---
Objective Data Objective Data Vital Signs: Vital Signs Last response Temperature 36.7 C 05/16/24 00:00 Temperature Source Temporal 05/16/24 00:00 Pulse Rate 139 H 05/16/24 07:00 Pulse Strength Normal (2+) 05/15/24 20:00 Respiratory Rate 22 H 05/16/24 07:00 Respiratory Effort Normal, Non-Labored 05/16/24 04:00 Respiratory Depth Normal 05/16/24 04:00 Respiratory Pattern Normal 05/16/24 04:00 Blood Pressure 156/84 H 05/16/24 07:00 Blood Pressure Mean 108 05/16/24 07:00 Blood Pressure Source Monitor 05/16/24 07:00 Blood Pressure Position Semi-Fowlers 05/16/24 07:00 Blood Pressure Location Right Arm 05/16/24 07:00 Pulse Ox 93 05/16/24 07:12 Oxygen Delivery Method Nasal Cannula 05/16/24 07:12 Oxygen Flow Rate (L/min) 2 05/16/24 07:12 I&O: I&O Last 24 Hours 05/15/24 05/15/24 05/16/24 11:59 23:59 11:59 Intake Total 2360 / 3470 1110 / 3470 Output Total 100 / 425 325 / 425 400 / 400 Balance 2260 / 3045 785 / 3045 -400 / -400 I&O: Total Stay 05/14/24 09:54 thru 05/16/24 05:27 Intake Total 5470 Output Total 825 Balance 4645 Current Meds Ordered / Administered: Current meds ordered / Administered Generic Name Dose Route Start Last Admin Trade Name Freq PRN Reason Stop Dose Admin Acetaminophen 650 mg 05/15/24 02:08 Acetaminophen 650 Mg Suppository RC Q4H PRN PRN Fever, pain 1-10 Albuterol/Ipratropium 3 ml 05/14/24 14:15 05/15/24 19:40 Ipratropium/Albuterol Sulfate 3 Ml Ampul.Neb INHALATION 3 ml Q6HWA.RT MARK Administration Calamine/Phenol 1 applic 05/15/24 10:00 05/15/24 22:05 Menthol/Lanolin/Calamine/Znox 113 Gm Tube TOPICAL Not Given BID MARK Protocol Glucagon 1 mg 05/14/24 14:15 Glucagon 1 Mg/Ml Syringe IM X1 PRN Hypoglycemia Protocol Dextrose 250 mls @ 0 mls/hr 05/14/24 14:15 Dextrose 10%-Water IV .Q0M PRN HYPOGLYCEMIA Protocol As Directed Sodium Chloride 100 mls @ 15 mls/hr 05/14/24 14:43 IV .Q6H40M PRN Saline Flush Sodium Chloride 100 mls @ 15 mls/hr 05/14/24 14:43 IV .Q6H40M PRN Additional IVPB Infusion Pantoprazole Sodium 40 mg/ 110 mls @ 330 mls/hr 05/15/24 10:00 05/15/24 22:25 Sodium Chloride IV Infused Q12 MARK Infusion Norepinephrine Bitartrate 8 mg 250 mls @ 9.375 mls/hr 05/15/24 05:53 05/15/24 10:53 / Sodium Chloride CONT INF Not Given .[id number] MARK Protocol 5 MCG/MIN Ceftriaxone Sodium 1 gm in 50 mls @ 100 mls/hr 05/16/24 10:00 Rocephin IV Q24 [facility] Insulin Human Lispro 0 unit 05/14/24 18:00 05/16/24 05:46 Insulin Lispro 100 Unit/Ml Insuln.Pen SC Not Given Q6 [facility] Protocol Nystatin 1 applic 05/15/24 10:00 05/15/24 22:05 Nystatin Ointment TOPICAL Not Given BID [facility] Protocol Ondansetron HCl 4 mg 05/14/24 20:37 05/15/24 04:15 Ondansetron 4 Mg/2 Ml Vial IV 4 mg Q6H PRN PRN Administration NAUSEA/VOMITING Prochlorperazine Edisylate 5 mg 05/14/24 20:37 05/15/24 00:28 Prochlorperazine 10 Mg/2 Ml Vial IV 5 mg Q4H PRN PRN Administration NAUSEA/VOMITING Sodium Chloride 10 - 40 ml 05/14/24 14:43 05/15/24 22:05 0.9% Saline Lock 10 Ml Syringe IV 20 ml UD PRN Administration SALINE FLUSH Lab / Micro Data 05/16/24 04:29 05/16/24 04:29 Labs: Laboratory Results - last 24 hr 05/15/24 10:15: WBC 7.9, RBC 4.41, Hgb 10.6 L, Hct 34.9 L, MCV 79.1 L, MCH 24.0 L, MCHC 30.4 L, RDW Std Deviation 51.6 H, RDW Coeff of Faby 18.0 H, Plt Count 187, MPV 9.1, Immature Gran % (Auto) 0.300, Neut % (Auto) 70.1 H, Lymph % (Auto) 16.8 L, [place] % (Auto) 12.1 H, Eos % (Auto) 0.3, Baso % (Auto) 0.4, Absolute Neuts (auto) 5.6, Absolute Lymphs (auto) 1.33, Nucleated RBC % 0, Sodium 145, Potassium 4.1, Chloride 114 H, Carbon Dioxide 28.0, Anion Gap 3 L, BUN 39 H, Creatinine 1.07 H, Estim Creat Clear Calc 67.45, Est GFR (MDRD) Af Amer 65, Est GFR (MDRD) Non-Af 54 L, BUN/Creatinine Ratio 36.4 H, Glucose 94, Calcium 8.8 05/15/24 12:41: POC Glucose 78 05/15/24 14:45: Urine Color Yellow, Urine Clarity Sl. Cloudy, Urine pH 6.0, Ur Specific [place] 1.020, Urine Protein 30 H, Urine Glucose (UA) 250 H, Urine Ketones Negative, Urine Occult Blood 25 H, Urine Nitrite Negative, Urine Bilirubin 1 H, Urine Urobilinogen 1 H, Ur Leukocyte Esterase 25 H, Urine RBC 0-5 SEEN, Urine WBC 0-5 SEEN, Ur Squamous Epith Cells 0-5 SEEN, Urine Bacteria 2+, Hyaline Casts 0-5 SEEN, Urine Mucus 0 SEEN, Urine Yeast RARE 05/15/24 18:38: POC Glucose 75 05/15/24 23:20: POC Glucose 74 05/16/24 04:29: WBC 7.1, RBC 4.73, Hgb 11.2 L, Hct 37.7, MCV 79.7 L, MCH 23.7 L, MCHC 29.7 L, RDW Std Deviation 51.8 H, RDW Coeff of Faby 17.9 H, Plt Count 188, MPV 9.0, Immature Gran % (Auto) 0.400, Neut % (Auto) 71.0 H, Lymph % (Auto) 17.0 L, [place] % (Auto) 9.7, Eos % (Auto) 1.5, Baso % (Auto) 0.4, Absolute Neuts (auto) 5.1, Absolute Lymphs (auto) 1.21, Nucleated RBC % 0, Sodium 141, Potassium 4.5, Chloride 114 H, Carbon Dioxide 26.0, Anion Gap 1 L, BUN 26 H, Creatinine 0.78, Estim Creat Clear Calc 90.21, Est GFR (MDRD) Af Amer 94, Est GFR (MDRD) Non-Af 78, BUN/Creatinine Ratio 33.4 H, Glucose 74, Calcium 9.7 05/16/24 05:44: POC Glucose 75 Micro: Microbiology 05/14/24 13:50 Blood Culture (Wb) - Anticubital Left Blood Culture - Preliminary No growth in 48 hours. 05/15/24 03:15 Stool Stool Lactoferrin - Final 05/15/24 03:15 Stool Enteric Bacteriology - Final 05/15/24 03:15 Stool Stool Occult Blood (AISHA) - Final Occult Blood Positive Imaging Radiology Impression KUB X-Ray 05/15/24 05:20 IMPRESSION: Persistent small bowel obstruction. Electronically Signed: Daniela Black MD at 10:12 EDT , Assessment and Plan . Assessment and plan: Critical Care Time: The entirety of this encounter was done via Telemedicine Subjective Subjective Pt seen and examined. Currently with RVR & is sp diltiazem push but otherwise no acute events. BP improved following fluid boluses. Passing gas. PE: General: Well developed, in no distress HEENT: anicteric Sclera, nl nose; supple neck, no masses Cardiovascular: tachy/irreg irreg; + S1/S2; No rubs, gallops; no displaced PM Respiratory: diminished; no crackles, wheezes, or rhonchi Abdominal: soft; Non-tender to light palpation; hypoBS x 4; No Hepatosplenomegaly Extremities: Warm, well perfused; No clubbing, cyanosis; capillary refill < 2 sec Skin: intact, no rashes Neurological: hard of hearing; awake with no gross deficits appreciated A/P: #Hypotension #Ileus vs SBO #Intractable N/V/diarrhea #DM #Morbid obesity #PAF #Hx CVA -SP fluid resuscitation with improvement of vitals; as of yet has not required pressors -HR control, F/U response to dilt push; uptitrate rate control drugs as needed -Surgery on board & recommendations noted; felt presentation more c/w ileus and recommend conservative management; pt refused NGT; pending gastrograffin study before advancing oral diet -Cont glycemic monitoring/control Eliquis Will monitor peripherally while remains in ICU. The entirety of this encounter was completed via telemedicine.
[2024-05-16] MEDS: Pantoprazole Sodium 40 MG in 0.9% Normal Saline (100mL MB+) 100 ML 330 MG IV ×2 (09:46→22:38)
[2024-05-16] MEDS: Ceftriaxone 1 GM/50 ML BAG IV (10:07)
--- NOTE | 2024-05-16 10:10 | PN_ITS ---
Subjective Subjective Patient seen and examined. She was alert and communicative and had no complaints. She had an uneventful night. She is asking when she can eat. She says general surgery told her she could eat. She is tachycardic with a heart rate going up to the 140s and mainly in A-fib. Review of systems otherwise negative. She is passing gas. Objective Data Objective Data Vital Signs: Vital Signs Temp Pulse Resp BP Pulse Ox O2 Del Method O2 Flow Rate 98.0 F 139 H 22 H 156/84 H 93 Nasal Cannula 2 05/16/24 00:00 05/16/24 07:00 05/16/24 07:00 05/16/24 07:00 05/16/24 07:12 05/16/24 07:12 05/16/24 07:12 Oxygen Flow Rate (L/min) 2 Oxygen Delivery Method Nasal Cannula Weight: 264 lb 15.93 oz Body Mass Index (BMI) 40.1 Intake & Output: Intake and Output for Last 24 Hours 05/14/24 05/15/24 05/16/24 23:59 23:59 23:59 Intake Total 1999 3470 / 3470 Output Total 0 / 100 425 / 425 400 / 400 Balance 1999 3045 / 3045 -400 / -400 Lab / Micro Data 05/16/24 04:29 05/16/24 04:29 Labs: Laboratory Results - last 24 hr 05/15/24 10:15: WBC 7.9, RBC 4.41, Hgb 10.6 L, Hct 34.9 L, MCV 79.1 L, MCH 24.0 L, MCHC 30.4 L, RDW Std Deviation 51.6 H, RDW Coeff of Faby 18.0 H, Plt Count 187, MPV 9.1, Immature Gran % (Auto) 0.300, Neut % (Auto) 70.1 H, Lymph % (Auto) 16.8 L, [place] % (Auto) 12.1 H, Eos % (Auto) 0.3, Baso % (Auto) 0.4, Absolute Neuts (auto) 5.6, Absolute Lymphs (auto) 1.33, Nucleated RBC % 0, Sodium 145, Potassium 4.1, Chloride 114 H, Carbon Dioxide 28.0, Anion Gap 3 L, BUN 39 H, C reatinine 1.07 H, Estim Creat Clear Calc 67.45, Est GFR (MDRD) Af Amer 65, Est GFR (MDRD) Non-Af 54 L, BUN/Creatinine Ratio 36.4 H, Glucose 94, Calcium 8.8 05/15/24 12:41: POC Glucose 78 05/15/24 14:45: Urine Color Yellow, Urine Clarity Sl. Cloudy, Urine pH 6.0, Ur Specific [place] 1.020, Urine Protein 30 H, Urine Glucose (UA) 250 H, Urine Ketones Negative, Urine Occult Blood 25 H, Urine Nitrite Negative, Urine Bilirubin 1 H, Urine Urobilinogen 1 H, Ur Leukocyte Esterase 25 H, Urine RBC 0-5 SEEN, Urine WBC 0-5 SEEN, Ur Squamous Epith Cells 0-5 SEEN, Urine Bacteria 2+, Hyaline Casts 0-5 SEEN, Urine Mucus 0 SEEN, Urine Yeast RARE 05/15/24 18:38: POC Glucose 75 05/15/24 23:20: POC Glucose 74 05/16/24 04:29: WBC 7.1, RBC 4.73, Hgb 11.2 L, Hct 37.7, MCV 79.7 L, MCH 23.7 L, MCHC 29.7 L, RDW Std Deviation 51.8 H, RDW Coeff of Faby 17.9 H, Plt Count 188, MPV 9.0, Immature Gran % (Auto) 0.400, Neut % (Auto) 71.0 H, Lymph % (Auto) 17.0 L, [place] % (Auto) 9.7, Eos % (Auto) 1.5, Baso % (Auto) 0.4, Absolute Neuts (auto) 5.1, Absolute Lymphs (auto) 1.21, Nucleated RBC % 0, Sodium 141, Potassium 4.5, Chloride 114 H, Carbon Dioxide 26.0, Anion Gap 1 L, BUN 26 H, Creatinine 0.78, Estim Creat Clear Calc 90.21, Est GFR (MDRD) Af Amer 94, Est GFR (MDRD) Non-Af 78, BUN/Creatinine Ratio 33.4 H, Glucose 74, Calcium 9.7 05/16/24 05:44: POC Glucose 75 Micro: Microbiology 05/14/24 13:50 Blood Culture (Wb) - Anticubital Left Blood Culture - Preliminary No growth in 48 hours. 05/15/24 03:15 Stool Stool Lactoferrin - Final 05/15/24 03:15 Stool Enteric Bacteriology - Final 05/15/24 03:15 Stool Stool Occult Blood (AISHA) - Final Occult Blood Positive Radiography Diagnostic Testing: Radiology Impression KUB X-Ray 05/15/24 05:20 IMPRESSION: Persistent small bowel obstruction. Electronically Signed: Daniela Black MD at 10:12 EDT , Abdomen X-Ray 05/16/24 06:45 IMPRESSION: No dilated loops of bowel seen. Electronically Signed: Ricci Johns MD at 9:48 EDT , Physical Exam Const alert, oriented x3 and no apparent distress General Appearance: cooperative HEENT normocephalic and head/scalp atraumatic Eyes PERRL and EOMs intact bilaterally Neck no lymphadenopathy and supple Lymph Lymphatic: no lymphadenopathy noted and no lymphedema noted Resp Resp Narrative: mildly diminished breath sounds bibasally, no wheezes or crackles. Remains on 2L of oxygen by nasal canula Cardio regular rate, regular rhythm, S1 normal heart sound, S2 normal heart sound and no murmurs GI normal to inspection, nondistended, normoactive bowel sounds, soft to palpation, non-tender and non-distended Extremity normal capillary refill, no clubbing, cyanosis or edema and no calf tenderness General Extremity: no tenderness to palpation of joints or extremities Skin General Skin Exam: no breakdown Neuro CN's II-XII intact bilaterally and no focal motor deficits Motor Exam: general weakness Psych thought process normal Appearance: appropriate Assessment & Plan Assessment/Plan (1) Acute hypotension: PLAN: Plan #Hypotension * Blood pressure was running low. I she was admitted with complaint of nausea, vomiting and diarrhea with abdominal pain. * CT of the abdomen and pelvis showed small bowel obstruction possibly due to involvement ini the right lower quadrant ventral hernia. * Currently being hydrated with IV fluids. Has not required vasopressors yet. * Critical care on board. * General surgery on board and does not think that she has a small bowel obstruction as she is passing stools and so favors an IV as well as a small bowel obstruction. General surgery also reviewed CT scan images and thinks is less likely that the hernia is contributing to this. General surgery did recommend conservative management with aggressive fluid resuscitation * general surgery recommending gastrograffin study today, then to consider advancing diet #Nausea and vomiting with probable small bowel obstruction * Patient refused NG tube insertion. * CT scan as above. COnservative management for now. COntinue gentle hydration with IVF * IV zofran prn * nausea and vomiting has resolved. Gen surg doesnt think it is a small bowel obstruction #Type 2 diabetes mellitus with hyperglycemia: * A1c in July 2023 was 11.2. Currently NPO. Accu-Cheks every 6 hourly as she remains NPO. #Afib with RVR * Patient is tachycardic with heart rate going up to the 140s and 150s. She has not received her meds as she is NPO. * Will give a bolus of Cardizem today and wait to see if she can be started on her diet so she can be put back on her Eliquis. * IV Lopressor as needed #History of cardioembolic stroke: On Eliquis. #Hypertension: BP meds on hold as she was hypotensive. Hypotension has now resolved. Resume BP meds when she resumes her diet. #Hyperlipidemia: On statin but this is on hold as she is NPO. #GERD: On PPI #morbid obesity: BMI is 40. Complicates acute care, expected recovery and prognosis DVT prophylaxis: place on therapeutic lovenox as she is NPO so cant be on her eliquis Code status: DNRCCA no intubation Charges/Coding Visit Charges Inpatient E&M: 17376 Subs Hosp L2
[2024-05-16] MEDS: dilTIAZem 25 MG/5 ML Vial 20 MG IV BOLUS (11:16)
[2024-05-16] MEDS: Enoxaparin 120 MG/0.8 ML Syringe SC ×2 (11:31→17:27)
--- NOTE | 2024-05-16 11:33 | CASEMGMT ---
Addendum entered by Ally Fernandez 05/16/24 11:45: Social Work- SW discussed HCPOA. Pt does not have HCPOA papers; states she has her sister in [place] as next of kin. SW provided education on POA and offered to complete POA papers if pt desired; pt declines at this time. ARELIS Muhammad Original Note: Social Work- Pt declines resources. Pt reports that she has an aide Sunday and Sunday 12:30-2:30. Pt reports that she cares for self, pays her own bills, has no concerns about utilities, food, safety, transportation, or housing. SW remains available to follow for any additional needs. ARELIS Muhammad
[2024-05-16] MEDS: Metoprolol Tartrate 5 MG/5 ML Vial IV ×2 (11:35→17:29)
[2024-05-16 11:56] LABS: Bedside Glucose 87 mg/dL (74-106)
[2024-05-16] MEDS: DiphenhydrAMINE 50 MG/ML Syringe IV (15:42)
--- NOTE | 2024-05-16 15:55 | CASEMGMT ---
Dr. Viveros states that the pt may DC over the weekend. RN CM to pt room at this time to discuss DC planning. Pt is currently requiring additional oxygen and may qualify for home oxygen. A verbal list of local in network DME companies provided to the pt at this time. Pt prefers [employer] if she were to qualify for home oxygen. Moving forward, pt states that she plans to DC home once she is medically ready. Pt states that she has a niece that will be able to support her at home as well as home aides that come every Sunday and Sunday. Pt also has MoW and a medical alert system. This RN CM inquired about skilled HH or OP Therapy. Pt declined both of these services at this time and states that she feels safe returning home with the help that she already has. Pt denies further questions or concerns at this time. Pt CM (Kera) updated on pt plan of care. Kera states understanding and that she would like the DC instructions faxed to [phone] once they are placed.
--- NOTE | 2024-05-16 16:01 | CT_ITS ---
INDICATION: shortness of breath, aspiration EXAMINATION: CT CHEST WITHOUT CONTRAST - CT Chest W/O Contrast Injection TECHNIQUE: Helically acquired images were obtained of the chest. A radiation dose optimization technique was used for this scan. IV Contrast dosage and agent: None. COMPARISON: None. FINDINGS: LUNGS, PLEURA AND LARGE AIRWAYS: Tiny right pleural effusion and atelectasis or infiltrate in the superior segment of the right lower lobe and right lung base.. Minor atelectasis within the dependent portion of the right upper lobe and left lung . No pneumothorax. THYROID: No thyroid lesions. HEART AND PERICARDIUM: Heart size is normal. No pericardial effusion. CORONARY ARTERIES: Multifocal coronary artery calcification VESSELS: Atherosclerotic changes of the aorta without evidence for aneurysm MEDIASTINUM AND STEPHON: No mediastinal or hilar adenopathy. Esophagus is unremarkable. Small hiatal hernia is noted UPPER ABDOMEN: No acute pathology. BONES: Dorsal spine demonstrates degenerative changes No suspicious lytic or blastic abnormality. CT/Chest without Contrast IMPRESSION: Subsegmental atelectasis or infiltrate in the right lower lobe and superior segment of the right lower lobe with tiny pleural effusion. Minor atelectasis within the dependent portion of the right upper lobe and left lung. Electronically Signed: Wilfrido Gunter MD at 17:21 EDT ,
[2024-05-16] MEDS: Diltiazem 125 MG in Dextrose 5%-Water (100mL Bag) 100 ML IV (16:49)
[2024-05-16 17:44] LABS: Bedside Glucose 91 mg/dL (74-106)
[2024-05-17] VITALS (30 sets, daily range): BP systolic 124–151; BP diastolic 50–81; PULSE 86–111; RESP 18–32; TEMP 36.5–36.8; O2SAT 92–99; BMI 39.4
[2024-05-17] MEDS: Metoprolol Tartrate 5 MG/5 ML Vial IV ×3 (00:46→21:38)
[2024-05-17 00:59] LABS: Bedside Glucose 145 mg/dL (74-106)
[2024-05-17] MEDS: Diltiazem 125 MG in Dextrose 5%-Water (100mL Bag) 100 ML 15 MG IV (01:37)
[2024-05-17] MEDS: Enoxaparin 120 MG/0.8 ML Syringe SC (06:09)
[2024-05-17 06:41] LABS: Bedside Glucose 134 mg/dL (74-106)
[2024-05-17 06:42] LABS: Absolute Lymphocyte Count 1.04 X10^3/uL (0.83-4.51); Absolute Neutrophil Count 4.4 X10^3/uL (2.0-7.7); Basophil# 0.01 X10^3/uL; Basophil% 0.2 % (0-1); Hematocrit 36.7 % (37-47); Hemoglobin 11.2 g/dL (12.0-15.0); Lymphocyte # 1.04 X10^3/ul (0.83-4.51); Lymphocyte % 17.3 % (19-41); Mean Corp Hgb Conc 30.5 g/dL (32-36); Mean Corpuscular Hgb 23.8 pg (27.0-32.0); Mean Corpuscular Volume 77.9 fL (81-99); Mean Platelet Vol. 9.6 fl (6.2-12.0); Monocyte# 0.49 X10^3/uL; Monocyte% 8.2 % (0-10); NRBC Flagged by Analyzer 0 % (0-5); Neutrophil # 4.41 X10^3/uL (2.7-7.7); Neutrophil % 73.3 % (47-70); Platelet Count 211 K/mm3 (150-450); RBC Distribution Width CV 17.6 % (11.6-14.6); RBC Distribution Width SD 49.1 fl (35.1-43.9); Red Blood Count 4.71 M/mm3 (4.2-5.4)
[2024-05-17 07:06] LABS: Anion Gap 4 (5-15); BUN 18 mg/dL (7-18); BUN/Creat Ratio 27.1 RATIO (10-20); Calcium,Total 9.5 mg/dL (8.5-10.1); Chloride 112 mmol/L (98-107); Creatinine, Serum 0.66 mg/dL (0.55-1.02); EST Glomerular Filtration Rate 94 mL/min (>60); Est Glom Filt Rate - Afr Amer 114 mL/min (>60); Estimated Creatinine Clearance 89.62 ml/min; Glucose 144 mg/dL (74-106); Potassium 4.9 mmol/L (3.5-5.1); Sodium Level 142 mmol/L (136-145)
[2024-05-17] MEDS: Pantoprazole Sodium 40 MG in 0.9% Normal Saline (100mL MB+) 100 ML 330 MG IV ×2 (09:15→21:39)
[2024-05-17] MEDS: Ceftriaxone 1 GM/50 ML BAG IV (10:31)
--- NOTE | 2024-05-17 11:27 | PCM.PN.SRG ---
Subjective Subjective Patient's small bowel follow-through went to the colon within an hour. Patient has been coughing with clears yesterday has not been seen by speech. Will plan to repeat at dysphagia screen by the nurse as she has been okay with sips. Patient denies any abdominal pain and is having bowel movements and wants to go home. Objective Data Objective Data Vital Signs: Vital Signs Temp Pulse Resp BP Pulse Ox O2 Del Method O2 Flow Rate 97.9 F 87 18 128/54 H 96 Nasal Cannula 2 05/17/24 08:00 05/17/24 09:00 05/17/24 09:00 05/17/24 09:00 05/17/24 09:00 05/17/24 09:00 05/17/24 09:00 Oxygen Flow Rate (L/min) 2 Oxygen Delivery Method Nasal Cannula Weight: 260 lb 2.327 oz Body Mass Index (BMI) 39.4 Intake & Output: Intake and Output for Last 24 Hours 05/15/24 05/16/24 05/17/24 23:59 23:59 23:59 Intake Total 3470 / 3470 292.17 / 292.17 339.83 / 339.83 Output Total 425 / 425 900 / 1100 200 / 200 Balance 3045 / 3045 -607.83 / -807.83 139.83 / 139.83 Lab / Micro Data 05/17/24 06:20 05/17/24 06:20 Labs: Laboratory Results - last 24 hr 05/16/24 11:32: POC Glucose 87 05/16/24 17:26: POC Glucose 91 05/17/24 00:40: POC Glucose 145 H 05/17/24 06:07: POC Glucose 134 H 05/17/24 06:20: WBC 6.0, RBC 4.71, Hgb 11.2 L, Hct 36.7 L, MCV 77.9 L, MCH 23.8 L, MCHC 30.5 L, RDW Std Deviation 49.1 H, RDW Coeff of Faby 17.6 H, Plt Count 211, MPV 9.6, Immature Gran % (Auto) 1.000 H, Neut % (Auto) 73.3 H, Lymph % (Auto) 17.3 L, [place] % (Auto) 8.2, Eos % (Auto) 0.0, Baso % (Auto) 0.2, Absolute Neuts (auto) 4.4, Absolute Lymphs (auto) 1.04, Nucleated RBC % 0, Sodium 142, Potassium 4.9, Chloride 112 H, Carbon Dioxide 26.0, Anion Gap 4 L, BUN 18, Creatinine 0.66, Estim Creat Clear Calc 89.62, Est GFR (MDRD) Af Amer 114, Est GFR (MDRD) Non-Af 94, BUN/Creatinine Ratio 27.1 H, Glucose 144 H, Calcium 9.5 Micro: Microbiology 05/15/24 14:45 Urine, Clean Catch Urine Culture - Preliminary ESBL Escherichia coli 05/14/24 13:50 Blood Culture (Wb) - Anticubital Left Blood Culture - Preliminary No growth in 48 hours. 05/15/24 03:15 Stool Stool Lactoferrin - Final 05/15/24 03:15 Stool Enteric Bacteriology - Final 05/15/24 03:15 Stool Stool Occult Blood (AISHA) - Final Occult Blood Positive Radiography Diagnostic Testing: Radiology Impression Small Bowel X-Ray 05/16/24 08:15 IMPRESSION: No evidence for obstruction. Electronically Signed: Presley Santos MD at 15:18 EDT , Chest CT 05/16/24 16:01 IMPRESSION: Subsegmental atelectasis or infiltrate in the right lower lobe and superior segment of the right lower lobe with tiny pleural effusion. Minor atelectasis within the dependent portion of the right upper lobe and left lung. Electronically Signed: Wilfrido Gunter MD at 17:21 EDT , Physical Exam Const oriented x3 GI soft to palpation and non-tender GI Narrative: unable to discretely feel the hernia due to body habitus. Assessment & Plan Assessment/Plan (1) Nausea, vomiting and diarrhea: PLAN: Plan The patient is a 68-year-old female admitted with chief complaints of nausea, vomiting, and diarrhea. Workup including CAT scan revealed dilatation of the stomach and small bowel and was read as concerning for possible small bowel obstruction. She has a known incisional hernia recurrence and CT scan alluded to the possibility of involvement of the hernia with a small bowel obstruction. Clinically she is passing stools, which would favor an ileus versus a bowel obstruction. Patient Gastrografin made it to the colon within an hour no concerns for bowel obstruction--okay for diet per surgery would start with clears and okay to advance as tolerated. Patient was not seen by speech yesterday and will plan another bedside nursing dysphagia screen if okay okay with starting on clears. An Shah M.D. Pager: [phone] [facility] [address] [place] [address], [facility], [address] [place] [address] Office: [phone] Charges/Coding Visit Charges Inpatient E&M: 24788 [facility] Hosp L2
--- NOTE | 2024-05-17 12:06 | PN_ITS ---
Subjective Subjective Patient seen and examined. She has no active complaints and was asking about being discharged home. Her afib with RVR has resolved and she is off cardizem drip. Review of systems is otherwise negative. Objective Data Objective Data Vital Signs: Vital Signs Temp Pulse Resp BP Pulse Ox O2 Del Method O2 Flow Rate 97.9 F 95 22 H 132/58 H 98 Nasal Cannula 2 05/17/24 08:00 05/17/24 11:00 05/17/24 11:00 05/17/24 11:00 05/17/24 11:00 05/17/24 11:00 05/17/24 11:00 Oxygen Flow Rate (L/min) 2 Oxygen Delivery Method Nasal Cannula Weight: 260 lb 2.327 oz Body Mass Index (BMI) 39.4 Intake & Output: Intake and Output for Last 24 Hours 05/15/24 05/16/24 05/17/24 23:59 23:59 23:59 Intake Total 3470 / 3470 292.17 / 292.17 339.83 / 339.83 Output Total 425 / 425 900 / 1100 200 / 200 Balance 3045 / 3045 -607.83 / -807.83 139.83 / 139.83 Lab / Micro Data 05/17/24 06:20 05/17/24 06:20 Labs: Laboratory Results - last 24 hr 05/16/24 17:26: POC Glucose 91 05/17/24 00:40: POC Glucose 145 H 05/17/24 06:07: POC Glucose 134 H 05/17/24 06:20: WBC 6.0, RBC 4.71, Hgb 11.2 L, Hct 36.7 L, MCV 77.9 L, MCH 23.8 L, MCHC 30.5 L, RDW Std Deviation 49.1 H, RDW Coeff of Faby 17.6 H, Plt Count 211, MPV 9.6, Immature Gran % (Auto) 1.000 H, Neut % (Auto) 73.3 H, Lymph % (Auto) 17.3 L, [place] % (Auto) 8.2, Eos % (Auto) 0.0, Baso % (Auto) 0.2, Absolute Neuts (auto) 4.4, Absolute Lymphs (auto) 1.04, Nucleated RBC % 0, Sodium 142, Potassium 4.9, Chloride 112 H, Carbon Dioxide 26.0, Anion Gap 4 L, BUN 18, Creatinine 0.66, Estim Creat Clear Calc 89.62, Est GFR (MDRD) Af Amer 114, Est GFR (MDRD) Non-Af 94, BUN/Creatinine Ratio 27.1 H, Glucose 144 H, Calcium 9.5 Micro: Microbiology 05/15/24 14:45 Urine, Clean Catch Urine Culture - Preliminary ESBL Escherichia coli 05/14/24 13:50 Blood Culture (Wb) - Anticubital Left Blood Culture - Preliminary No growth in 48 hours. 05/15/24 03:15 Stool Stool Lactoferrin - Final 05/15/24 03:15 Stool Enteric Bacteriology - Final 05/15/24 03:15 Stool Stool Occult Blood (AISHA) - Final Occult Blood Positive Radiography Diagnostic Testing: Radiology Impression Small Bowel X-Ray 05/16/24 08:15 IMPRESSION: No evidence for obstruction. Electronically Signed: Presley Santos MD at 15:18 EDT , Chest CT 05/16/24 16:01 IMPRESSION: Subsegmental atelectasis or infiltrate in the right lower lobe and superior segment of the right lower lobe with tiny pleural effusion. Minor atelectasis within the dependent portion of the right upper lobe and left lung. Electronically Signed: Wilfrido Gunter MD at 17:21 EDT , Physical Exam Const alert, oriented x3 and no apparent distress Constitutional Narrative: confused, lethargic, opens her eyes in response to voice call and sternal rub, but unable to answer any questions. General Appearance: cooperative HEENT normocephalic and head/scalp atraumatic Eyes PERRL and EOMs intact bilaterally Neck no lymphadenopathy and supple Lymph Lymphatic: no lymphadenopathy noted and no lymphedema noted Resp Resp Narrative: mildly diminished breath sounds bibasally, no wheezes or crackles. Remains on 2L of oxygen by nasal canula Cardio regular rate, regular rhythm, S1 normal heart sound, S2 normal heart sound and no murmurs GI normal to inspection, nondistended, normoactive bowel sounds, soft to palpation, non-tender and non-distended Extremity normal capillary refill, no clubbing, cyanosis or edema and no calf tenderness General Extremity: no tenderness to palpation of joints or extremities Skin General Skin Exam: no breakdown Neuro CN's II-XII intact bilaterally and no focal motor deficits Motor Exam: general weakness Psych thought process normal Appearance: appropriate Assessment & Plan Assessment/Plan (1) Acute hypotension: PLAN: Plan #Hypotension * resolved. * BP today is 132/58 * CT of the abdomen and pelvis showed small bowel obstruction possibly due to involvement ini the right lower quadrant ventral hernia. * did not require vasopressors. * Critical care on board. * General surgery on board and does not think that she has a small bowel obstruction as she is passing stools and so favors an IV as well as a small bowel obstruction. General surgery also reviewed CT scan images and thinks is less likely that the hernia is contributing to this. General surgery did recommend conservative management with aggressive fluid resuscitation * gastrograffin study showed no evidence of small bowel obstruction * however she failed dysphagia evaluation, so curently NPO #Nausea and vomiting with probable small bowel obstruction * Patient refused NG tube insertion. * CT scan as above. COnservative management for now. COntinue gentle hydration with IVF * IV zofran prn * nausea and vomiting has resolved. Gen surg doesnt think it is a small bowel obstruction * resolved. #UTI: on IV ceftriaxone. Urine cultures grew ESBL E coli. Will DC IV ceftriaxone due to sensitivity but 7. Place patient on nitrofurantoin.. #Positive occult stool * patient's stool for occult blood was positive * she is on eliquis; Hb is stable at 11.2. However, because she is on blood thinners, will consult gastroenterology. * dc therapeutic lovenox which she has been on due to eliquis being on hold * #Type 2 diabetes mellitus with hyperglycemia: * A1c in July 2023 was 11.2. * Currently NPO. Accu-Cheks every 6 hourly as she remains NPO. * for swallow eval today, and resume diet if she passes. #Afib with RVR * Resolved. Was started on Cardizem drip yesterday but is now off the drip. Oral meds on hold because she is NPO * IV lopressor prn * #History of cardioembolic stroke: Eliquis on hold as she is NPO #Hypertension: * BP meds on hold as she was hypotensive. * Hypotension has now resolved. Resume BP meds when she resumes her diet. #Hyperlipidemia: On statin but this is on hold as she is NPO. #GERD: On PPI #morbid obesity: BMI is 40. Complicates acute care, expected recovery and prognosis DVT prophylaxis:SCDs. No anticoagulation as stool for occult blood is positive Code status: DNRCCA no intubation Charges/Coding Visit Charges Inpatient E&M: 55129 Subs Hosp L2
[2024-05-17 13:45] LABS: Bedside Glucose 105 mg/dL (74-106)
[2024-05-17 17:31] LABS: Bedside Glucose 108 mg/dL (74-106)
[2024-05-17] MEDS: Nitrofurantoin Macrocrystals 100 MG Capsule PO (21:38)
[2024-05-17] MEDS: Nystatin Ointment 1 APPLIC TOPICAL (21:39)
--- NOTE | 2024-05-17 22:28 | CON.PCM.GI_ITS ---
HPI Consult Data Date of Consult: 05/17/24 HPI Narrative Reason for Consultation: Anemia and Fecal occult + stools HPI Narrative: ZOIE DE LA PAZ, is a 68 F came to ED for nausea vomiting and diarrhea for several days. She is not a good historian, sometimes not forthcoming with the answer or does not understand. She also has abdominal pain around left side of umbilicus. Prior to that she was in the ER on 04/29/2024 for nausea and vomiting and abdominal/pelvis CT scan was done which showed no evidence for small bowel obstruction or other acute abnormality and the patient was sent home. Patient denies antibiotic intake. Her diarrhea is liquid in consistency, watery with no mucus or blood. Denies rectal pain fecal incontinence or tenesmus. Patient was seen by General surgery for possible small obstruction. CT scan with Gastrograffin was performed and the gastrograffin passed through the patient without difficulty. She is also having bowel movements. She was diagnosed with likely possible ileus. She is awaiting consult from speech and swallow because of nausea, vomiting and difficulty swallowing. I was asked to see her because of an anemia and fecal occult positive stools. She does not know if she had a colonoscopy in the past. FORMERLY [facility], [facility] Medical History Wears glasses Former smoker Obesity Ambulates with cane Stroke/cerebrovascular accident Difficulty in walking Poor historian Recurrent incisional hernia with incarceration Incarcerated ventral hernia Obstructive sleep apnea Atrial fibrillation Intraventricular hemorrhage Embolic stroke GERD (gastroesophageal reflux disease) Obesity (BMI 30-39.9) Hyperlipidemia Hypertension Diabetes mellitus Home Medications ?Medication ?Instructions ?Recorded ?Last Taken ?Type omeprazole 20 mg capsule,delayed 20 mg PO DAILY GERd 05/29/14 02/23/21 History release amlodipine 10 mg tablet (Norvasc) 10 mg PO QHS HTN 10/04/16 02/23/21 History apixaban 5 mg tablet (Eliquis) 5 mg PO BID blood thinner 10/04/16 12/26/21 History atorvastatin 80 mg tablet 80 mg PO QHS 10/25/16 02/23/21 Rx lisinopril 40 mg tablet 40 mg PO DAILY HTN 10/25/16 02/23/21 Rx carvedilol 12.5 mg tablet 12.5 mg PO BID HTN 01/23/21 02/23/21 History pioglitazone 15 mg tablet 15 mg PO DAILY DM #30 tabs 10/09/22 Unknown Rx glipizide 10 mg tablet 10 mg PO BID DM 08/09/23 Unknown History benzonatate 200 mg capsule 200 mg PO TID 01/01/24 Unknown History dapagliflozin propanediol 10 mg 10 mg PO QDAY 01/01/24 Unknown History tablet (Farxiga) diphenoxylate-atropine 2.5 1 tab PO Q8H PRN diarrhea 01/01/24 Unknown History mg-0.025 mg tablet gabapentin 600 mg tablet 600 mg PO QDAY 01/01/24 Unknown History loratadine 10 mg tablet (Allergy 10 mg PO DAILY ALLERGIES 01/01/24 Unknown History Relief (loratadine)) metformin 500 mg tablet 500 mg PO BID DM 01/01/24 Unknown History tramadol 50 mg tablet 50 mg PO TID PRN pain #15 tabs 02/26/24 Unknown Rx albuterol sulfate 90 mcg/actuation 2 inh inhalation Q4H PRN shortness 05/14/24 Unknown History aerosol inhaler of breath or wheezing dulaglutide 4.5 mg/0.5 mL 4.5 mg subcut QWEEK DM 05/14/24 Unknown History subcutaneous pen injector (Trulicity) hydrocodone-acetaminophen 5-325mg 1 tab PO TID PRN pain 05/14/24 Unknown History 5mg-325mg insulin glargine 100 unit/mL (3 15 unit subcut DAILY 05/14/24 Unknown History mL) subcutaneous pen (Lantus Solostar U-100 Insulin) lidocaine 5 % topical patch 1 patch topical DAILY 05/14/24 Unknown History multivitamin with folic acid 400 1 tab PO DAILY 05/14/24 Unknown History mcg tablet (Daily-Levon (with folic acid)) Allergy/AdvReac Type Severity Reaction Status Date / Time iodine Allergy Mild Itching Verified 05/14/24 10:01 Penicillins Allergy Mild Itching Verified 05/14/24 10:01 Family History Father CVA (cerebral vascular accident) Mother Diabetes Stomach cancer Other High cholesterol Hypertension Surgical History History of cholecystectomy Hx of colonoscopy Status post debridement History of hysterectomy S/P repair of ventral hernia Social History household members: none Smoking Status: Former smoker alcohol intake: never substance use type: does not use what type of physical activity do you participate in: walking frequency: daily ROS ROS Narrative 14 system ROS difficult as patient does not have good understanding Constitutional: Reports fatigue and weakness. No fever. HEENT: Reports systems reviewed and no addt'l complaints, except as documented Respiratory/Chest: No wheezing. Mild short of breath. She states he might have asthma but denies COPD or/emphysema CVS: No chest pain or pressure. Gastrointestinal: Denies coffee ground emesis, hematemesis or melena. Rest as described in HPI Genitourinary: Denies burning urination or new urinary tract symptoms Musculoskeletal: Denies acute joint pain or limited range of motion. No acute injury Neurologic: Looks confused. Denies seizure-like symptoms. skin: No ulcer. No rash Endocrinology: Reports systems reviewed and no addt'l complaints, except as documented Hematologic/Lymphatic: Reports systems reviewed and no addt'l complaints, except as documented Rest 14 ROS are negative except as mentioned in HPI Physical Exam Const alert, oriented x3 and no apparent distress Constitutional Narrative: lethargic, but opens her eyes spontaneously General Appearance: cooperative HEENT normocephalic and head/scalp atraumatic Eyes PERRL and EOMs intact bilaterally Neck no lymphadenopathy and supple Lymph Lymphatic: no lymphadenopathy noted and no lymphedema noted Resp Resp Narrative: mildly diminished breath sounds bibasally, no wheezes or crackles. Remains on 2L of oxygen by nasal canula Cardio regular rate, regular rhythm, S1 normal heart sound, S2 normal heart sound and no murmurs GI normal to inspection, nondistended, normoactive bowel sounds, soft to palpation, non-tender and non-distended Extremity normal capillary refill, no clubbing, cyanosis or edema and no calf tenderness General Extremity: no tenderness to palpation of joints or extremities Skin General Skin Exam: no breakdown Neuro CN's II-XII intact bilaterally and no focal motor deficits Motor Exam: general weakness Psych thought process normal Appearance: appropriate Lab / Micro Data 05/17/24 06:20 05/17/24 06:20 Labs: Laboratory Results - last 24 hr 05/17/24 00:40: POC Glucose 145 H 05/17/24 06:07: POC Glucose 134 H 05/17/24 06:20: WBC 6.0, RBC 4.71, Hgb 11.2 L, Hct 36.7 L, MCV 77.9 L, MCH 23.8 L, MCHC 30.5 L, RDW Std Deviation 49.1 H, RDW Coeff of Faby 17.6 H, Plt Count 211, MPV 9.6, Immature Gran % (Auto) 1.000 H, Neut % (Auto) 73.3 H, Lymph % (Auto) 17.3 L, [place] % (Auto) 8.2, Eos % (Auto) 0.0, Baso % (Auto) 0.2, Absolute Neuts (auto) 4.4, Absolute Lymphs (auto) 1.04, Nucleated RBC % 0, Sodium 142, Potassium 4.9, Chloride 112 H, Carbon Dioxide 26.0, Anion Gap 4 L, BUN 18, Creatinine 0.66, Estim Creat Clear Calc 89.62, Est GFR (MDRD) Af Amer 114, Est GFR (MDRD) Non-Af 94, BUN/Creatinine Ratio 27.1 H, Glucose 144 H, Calcium 9.5 05/17/24 13:22: POC Glucose 105 05/17/24 17:13: POC Glucose 108 H Micro: Microbiology 05/15/24 14:45 Urine, Clean Catch Urine Culture - Preliminary ESBL Escherichia coli Assessment & Plan Assessment/Plan (1) Nausea, vomiting and diarrhea: (2) Abdominal pain: PLAN: Plan This is a 68-year-old female being admitted for nausea vomiting diarrhea along with abdominal pain for several days. 1. Nausea vomiting and diarrhea and abdominal pain exact etiology unclear. She is being followed by surgery and does not appear to have a small bowel obstruction. She likely had viral gastroenteritis. 2. Paroxysmal A-fib: She is off in coagulation. I do not think she can handle a prep for a colonoscopy at this time but I do think she would benefit from an upper endoscopy. This could be done on May 19, 2024, as it does not appear to be an emergency at this time. NPO past midnight on tomorrow, May 18, 2024. Charges/Coding Visit Charges Inpatient E&M: 61448 Init Hosp L3
[2024-05-18] VITALS (40 sets, daily range): BP systolic 104–157; BP diastolic 50–122; PULSE 73–134; RESP 16–31; TEMP 36–36.6; O2SAT 92–100; BMI 40.4
[2024-05-18] MEDS: Metoprolol Tartrate 5 MG/5 ML Vial IV ×3 (00:05→09:44)
[2024-05-18] MEDS: Insulin Lispro 100 UNIT/ML INSULN.PEN SC ×3 (00:08→18:03)
[2024-05-18 00:32] LABS: Bedside Glucose 195 mg/dL (74-106)
[2024-05-18 06:10] LABS: Bedside Glucose 121 mg/dL (74-106)
[2024-05-18 06:12] LABS: Absolute Lymphocyte Count 1.26 X10^3/uL (0.83-4.51); Absolute Neutrophil Count 3.8 X10^3/uL (2.0-7.7); Basophil# 0.02 X10^3/uL; Basophil% 0.3 % (0-1); Eosinophils% 1.7 % (0-5); Hematocrit 37.7 % (37-47); Hemoglobin 11.4 g/dL (12.0-15.0); Lymphocyte # 1.26 X10^3/ul (0.83-4.51); Lymphocyte % 21.4 % (19-41); Mean Corp Hgb Conc 30.2 g/dL (32-36); Mean Corpuscular Hgb 23.6 pg (27.0-32.0); Mean Corpuscular Volume 78.1 fL (81-99); Mean Platelet Vol. 8.9 fl (6.2-12.0); Monocyte# 0.62 X10^3/uL; Monocyte% 10.5 % (0-10); NRBC Flagged by Analyzer 0 % (0-5); Neutrophil # 3.84 X10^3/uL (2.7-7.7); Neutrophil % 65.1 % (47-70); Platelet Count 195 K/mm3 (150-450); RBC Distribution Width CV 17.3 % (11.6-14.6); RBC Distribution Width SD 48.6 fl (35.1-43.9); Red Blood Count 4.83 M/mm3 (4.2-5.4); White Blood Count 5.9 K/mm3 (4.4-11.0)
[2024-05-18 06:26] LABS: Anion Gap 3 (5-15); BUN 13 mg/dL (7-18); BUN/Creat Ratio 22.6 RATIO (10-20); Calcium,Total 9.4 mg/dL (8.5-10.1); Chloride 107 mmol/L (98-107); Creatinine, Serum 0.57 mg/dL (0.55-1.02); EST Glomerular Filtration Rate 111 mL/min (>60); Est Glom Filt Rate - Afr Amer 134 mL/min (>60); Glucose 127 mg/dL (74-106); Potassium 3.7 mmol/L (3.5-5.1); Sodium Level 138 mmol/L (136-145)
[2024-05-18] MEDS: 0.9% Saline Lock 10 ML Syringe IV ×2 (09:04→11:04)
[2024-05-18] MEDS: Nystatin Ointment 1 APPLIC TOPICAL ×2 (09:05→20:54)
[2024-05-18] MEDS: Nitrofurantoin Macrocrystals 100 MG Capsule PO ×2 (09:05→20:55)
[2024-05-18] MEDS: Pantoprazole Sodium 40 MG in 0.9% Normal Saline (100mL MB+) 100 ML 330 MG IV ×2 (09:06→20:53)
--- NOTE | 2024-05-18 09:09 | PN_ITS ---
Progress Note Patient is tolerating diet and having bowel function. No plans for any acute surgical intervention. Will sign off call with questions. An Shah M.D. Pager: [phone] [facility] [address] [place] [address] [address] [place] [address] Office: [phone]
--- NOTE | 2024-05-18 09:09 | PCM.PN.BLA ---
Progress Note Patient is tolerating diet and having bowel function. No plans for any acute surgical intervention. Will sign off call with questions. An Shah M.D. Pager: [phone] [facility] [address] [place] [address] [address] [place] [address] Office: [phone]
[2024-05-18] MEDS: Carvedilol 12.5 MG Tablet PO ×2 (09:43→20:56)
--- NOTE | 2024-05-18 10:16 | PN_ITS ---
Subjective Subjective Patient seen and examined. She had no active complaints and wanted to be discharged home. She is tachypenic and tachycardic. She has not been getting her beta felix. Review of systems is otherwise negative. GI on board o/a of positive stool for occult blood. She is for EGD tomorrow. Objective Data Objective Data Vital Signs: Vital Signs Temp Pulse Resp BP Pulse Ox O2 Del Method O2 Flow Rate 97.7 F L 123 H 20 H 131/69 H 95 Nasal Cannula 2 05/18/24 08:00 05/18/24 10:00 05/18/24 10:00 05/18/24 10:00 05/18/24 10:00 05/18/24 10:00 05/18/24 10:00 Oxygen Flow Rate (L/min) 2 Oxygen Delivery Method Nasal Cannula Weight: 266 lb 5.094 oz Body Mass Index (BMI) 40.4 Intake & Output: Intake and Output for Last 24 Hours 05/16/24 05/17/24 05/18/24 23:59 23:59 23:59 Intake Total 292.17 / 292.17 929.83 / 929.83 350 / 350 Output Total 900 / 1100 700 / 700 675 / 675 Balance -607.83 / -807.83 229.83 / 229.83 -325 / -325 Lab / Micro Data 05/18/24 05:45 05/18/24 05:45 Labs: Laboratory Results - last 24 hr 05/17/24 13:22: POC Glucose 105 05/17/24 17:13: POC Glucose 108 H 05/18/24 00:08: POC Glucose 195 H 05/18/24 05:32: POC Glucose 121 H 05/18/24 05:45: WBC 5.9, RBC 4.83, Hgb 11.4 L, Hct 37.7, MCV 78.1 L, MCH 23.6 L, MCHC 30.2 L, RDW Std Deviation 48.6 H, RDW Coeff of Faby 17.3 H, Plt Count 195, MPV 8.9, Immature Gran % (Auto) 1.000 H, Neut % (Auto) 65.1, Lymph % (Auto) 21.4, [place] % (Auto) 10.5 H, Eos % (Auto) 1.7, Baso % (Auto) 0.3, Absolute Neuts (auto) 3.8, Absolute Lymphs (auto) 1.26, Nucleated RBC % 0, Sodium 138, Potassium 3.7, Chloride 107, Carbon Dioxide 28.0, Anion Gap 3 L, BUN 13, Creatinine 0.57, Estim Creat Clear Calc 90.80, Est GFR (MDRD) Af Amer 134, Est GFR (MDRD) Non-Af 111, BUN/Creatinine Ratio 22.6 H, Glucose 127 H, Calcium 9.4 Micro: Microbiology 05/14/24 13:50 Blood Culture (Wb) - Anticubital Left Blood Culture - Preliminary 05/15/24 14:45 Urine, Clean Catch Urine Culture - Preliminary ESBL Escherichia coli 05/15/24 03:15 Stool Stool Lactoferrin - Final 05/15/24 03:15 Stool Enteric Bacteriology - Final 05/15/24 03:15 Stool Stool Occult Blood (AISHA) - Final Occult Blood Positive Physical Exam Const alert, oriented x3 and no apparent distress Constitutional Narrative: eating breakfast. General Appearance: cooperative HEENT normocephalic, head/scalp atraumatic and moist oral mucous membranes Eyes PERRL and EOMs intact bilaterally Neck no lymphadenopathy and supple Lymph Lymphatic: no lymphadenopathy noted and no lymphedema noted Resp Resp Narrative: mildly diminished breath sounds bibasally, no wheezes or crackles. Remains on 2L of oxygen by nasal canula Cardio regular rate, regular rhythm, S1 normal heart sound, S2 normal heart sound and no murmurs GI normal to inspection, nondistended, normoactive bowel sounds, soft to palpation, non-tender and non-distended Extremity normal capillary refill, no clubbing, cyanosis or edema and no calf tenderness General Extremity: no tenderness to palpation of joints or extremities Skin General Skin Exam: no breakdown Neuro CN's II-XII intact bilaterally and no focal motor deficits Neuro Narrative: lethargic, weak and frail, moves all extremities spontaneously. Motor Exam: general weakness Psych thought process normal Appearance: appropriate Assessment & Plan Assessment/Plan (1) Acute hypotension: PLAN: Plan #Hypotension * resolved. * BP today is 132/58 * CT of the abdomen and pelvis showed small bowel obstruction possibly due to involvement ini the right lower quadrant ventral hernia. * did not require vasopressors. * Critical care on board. * General surgery on board and does not think that she has a small bowel obstruction as she is passing stools and so favors an IV as well as a small bowel obstruction. General surgery also reviewed CT scan images and thinks is less likely that the hernia is contributing to this. General surgery did recommend conservative management with aggressive fluid resuscitation * gastrograffin study showed no evidence of small bowel obstruction * she is now on a diet after she eventually passed her swallow evaluation. #Nausea and vomiting with probable small bowel obstruction * Patient refused NG tube insertion. * CT scan as above. Conservative management for now. COntinue gentle hydration with IVF * IV zofran prn * nausea and vomiting has resolved. Gen surg doesnt think it is a small bowel obstruction * resolved. * now on a diet. #UTI: Urine cultures grew ESBL E coli. Will DC IV ceftriaxone due to sensitivity. Place patient on nitrofurantoin.. #Positive occult stool * patient's stool for occult blood was positive * she is on eliquis; Hb is stable at 11.2. However, because she is on blood thinners, will consult gastroenterology. * GI on board. For EGD tomorrow * #Type 2 diabetes mellitus with hyperglycemia: * A1c in July 2023 was 11.2. * now on a diet. Will resume her diabetes meds- ;amtis 15 units daily, glipizide, pioglitazone and metformin. * ISS. Accuchecks ACHS #Afib with RVR * HR elevated today. She is off cardizem drip. * on IV lopressor prn. * will resume her oral meds- carvedilol. * Resolved. * IV lopressor prn * #History of cardioembolic stroke: eliquis remains on hold due to positive stool for occult blood. #Hypertension: * BP meds renewed: lisinopril, carvedilol, amlodipine. IV lopressor prn. #Hyperlipidemia: On statin. #GERD: On PPI #morbid obesity: BMI is 40. Complicates acute care, expected recovery and prognosis DVT prophylaxis:SCDs. No anticoagulation as stool for occult blood is positive Code status: DNRCCA no intubation Charges/Coding Visit Charges Inpatient E&M: 86709 Subs Hosp L2
[2024-05-18] MEDS: Menthol/Lanolin/Calamine/Znox 113 GM Tube 1 APPLIC TOPICAL ×2 (11:02→20:54)
[2024-05-18] MEDS: dilTIAZem 25 MG/5 ML Vial 20 MG IV BOLUS (11:02)
[2024-05-18 11:46] LABS: Bedside Glucose 194 mg/dL (74-106)
--- NOTE | 2024-05-18 12:24 | PCM.PN.TICU ---
Objective Data Objective Data Vital Signs: Vital Signs Last response Temperature 36.5 C L 05/18/24 08:00 Temperature Source Temporal 05/18/24 08:00 Pulse Rate 123 H 05/18/24 11:00 Pulse Strength Normal (2+) 05/18/24 08:26 Respiratory Rate 22 H 05/18/24 11:00 Respiratory Effort Normal, Non-Labored 05/18/24 08:00 Respiratory Depth Normal 05/18/24 08:00 Respiratory Pattern Tachypnea 05/18/24 08:00 Blood Pressure 116/55 L 05/18/24 11:00 Blood Pressure Mean 75 05/18/24 11:00 Blood Pressure Source Monitor 05/18/24 11:00 Blood Pressure Position Semi-Fowlers 05/18/24 11:00 Blood Pressure Location Left Arm 05/18/24 11:00 Pulse Ox 96 05/18/24 11:00 Oxygen Delivery Method Nasal Cannula 05/18/24 11:00 Oxygen Flow Rate (L/min) 2 05/18/24 11:00 I&O: I&O Last 24 Hours 05/17/24 05/18/24 05/18/24 23:59 11:59 23:59 Intake Total 590 / 929.83 350 / 350 Output Total 500 / 700 675 / 675 Balance 90 / 229.83 -325 / -325 I&O: Total Stay 05/14/24 09:54 thru 05/18/24 10:00 Intake Total 7042.00 Output Total 2700 Balance 4342.00 Current Meds Ordered / Administered: Current meds ordered / Administered Generic Name Dose Route Start Last Admin Trade Name Freq PRN Reason Stop Dose Admin Acetaminophen 650 mg 05/15/24 02:08 Acetaminophen 650 Mg Suppository RC Q4H PRN PRN Fever, pain 1-10 Albuterol/Ipratropium 3 ml 05/14/24 14:15 05/15/24 19:40 Ipratropium/Albuterol Sulfate 3 Ml Ampul.Neb INHALATION 3 ml Q6HWA.RT MARK Administration Amlodipine Besylate 10 mg 05/18/24 22:00 Amlodipine 10 Mg Tablet PO QHS [facility] Protocol Atorvastatin Calcium 80 mg 05/18/24 22:00 Atorvastatin Calcium 80 Mg Tablet PO QHS [facility] Benzonatate 200 mg 05/18/24 14:00 Benzonatate 100 Mg Capsule PO TID [facility] Calamine/Phenol 1 applic 05/15/24 10:00 05/18/24 11:02 Menthol/Lanolin/Calamine/Znox 113 Gm Tube TOPICAL 1 u BID [facility] Administration Protocol Carvedilol 12.5 mg 05/18/24 10:00 05/18/24 09:43 Carvedilol 12.5 Mg Tablet PO 12.5 mg BID [facility] Administration Protocol Empagliflozin 25 mg 05/19/24 10:00 Empagliflozin 25 Mg Tablet PO DAILY [facility] Gabapentin 600 mg 05/19/24 10:00 Gabapentin 600 Mg Tablet PO DAILY [facility] Glipizide 10 mg 05/18/24 16:30 Glipizide 10 Mg Tablet PO BID@0730,1630 [facility] Glucagon 1 mg 05/14/24 14:15 Glucagon 1 Mg/Ml Syringe IM X1 PRN Hypoglycemia Protocol Dextrose 250 mls @ 0 mls/hr 05/14/24 14:15 Dextrose 10%-Water IV .Q0M PRN HYPOGLYCEMIA Protocol As Directed Sodium Chloride 100 mls @ 15 mls/hr 05/14/24 14:43 IV .Q6H40M PRN Saline Flush Sodium Chloride 100 mls @ 15 mls/hr 05/14/24 14:43 IV .Q6H40M PRN Additional IVPB Infusion Pantoprazole Sodium 40 mg/ 110 mls @ 330 mls/hr 05/15/24 10:00 05/18/24 09:58 Sodium Chloride IV Infused Q12 MARK Infusion Norepinephrine Bitartrate 8 mg 250 mls @ 9.375 mls/hr 05/15/24 05:53 05/17/24 11:26 / Sodium Chloride CONT INF Not Given .[id number] MARK Protocol 5 MCG/MIN Diltiazem HCl 125 mg/ Dextrose 125 mls @ 5 mls/hr 05/16/24 15:55 05/17/24 06:45 IV 0 mg/hr .Q25H MARK 0 mls/hr Titration Protocol 5 MG/HR Insulin Glargine 15 unit 05/19/24 10:00 Insulin Glargine-Yfgn 100 Unit/Ml Pen SC DAILY [facility] Insulin Human Lispro 0 unit 05/14/24 18:00 05/18/24 11:25 Insulin Lispro 100 Unit/Ml Insuln.Pen SC 2 units Q6 [facility] Administration Protocol Lisinopril 40 mg 05/19/24 10:00 Lisinopril 40 Mg Tablet PO DAILY [facility] Protocol Metformin HCl 500 mg 05/18/24 17:00 Met[facility] Hcl [facility]oprol[facility] Tartrate 5 mg 05/18/24 09:15 05/18/24 09:44 Metoprolol Tartrate 5 Mg/5 Ml Vial IV 5 mg Q6H PRN Administration for HR>120 or BP >160/110 Protocol Nitrofurantoin Macrocrystals 100 mg 05/17/24 22:00 05/18/24 09:05 Nitrofurantoin Macrocrystals 100 Mg Capsule PO 05/22/24 10:01 100 mg BID [facility] Administration Nystatin 1 applic 05/15/24 10:00 05/18/24 09:05 Nystatin Ointment TOPICAL 1 dose BID [facility] Administration Protocol Ondansetron HCl 4 mg 05/14/24 20:37 05/15/24 04:15 Ondansetron 4 Mg/2 Ml Vial IV 4 mg Q6H PRN PRN Administration NAUSEA/VOMITING Pioglitazone HCl 15 mg 05/19/24 10:00 Pioglitazone Hydrochloride 15 Mg Tablet PO DAILY [facility] Prochlorperazine Edisylate 5 mg 05/14/24 20:37 05/15/24 00:28 Prochlorperazine 10 Mg/2 Ml Vial IV 5 mg Q4H PRN PRN Administration NAUSEA/VOMITING Sodium Chloride 10 - 40 ml 05/14/24 14:43 05/18/24 11:04 0.9% Saline Lock 10 Ml Syringe IV 10 ml UD PRN Administration SALINE FLUSH Lab / Micro Data 05/18/24 05:45 05/18/24 05:45 Labs: Laboratory Results - last 24 hr 05/17/24 13:22: POC Glucose 105 05/17/24 17:13: POC Glucose 108 H 05/18/24 00:08: POC Glucose 195 H 05/18/24 05:32: POC Glucose 121 H 05/18/24 05:45: WBC 5.9, RBC 4.83, Hgb 11.4 L, Hct 37.7, MCV 78.1 L, MCH 23.6 L, MCHC 30.2 L, RDW Std Deviation 48.6 H, RDW Coeff of Faby 17.3 H, Plt Count 195, MPV 8.9, Immature Gran % (Auto) 1.000 H, Neut % (Auto) 65.1, Lymph % (Auto) 21.4, [place] % (Auto) 10.5 H, Eos % (Auto) 1.7, Baso % (Auto) 0.3, Absolute Neuts (auto) 3.8, Absolute Lymphs (auto) 1.26, Nucleated RBC % 0, Sodium 138, Potassium 3.7, Chloride 107, Carbon Dioxide 28.0, Anion Gap 3 L, BUN 13, Creatinine 0.57, Estim Creat Clear Calc 90.80, Est GFR (MDRD) Af Amer 134, Est GFR (MDRD) Non-Af 111, BUN/Creatinine Ratio 22.6 H, Glucose 127 H, Calcium 9.4 05/18/24 11:24: POC Glucose 194 H Micro: Microbiology 05/14/24 13:50 Blood Culture (Wb) - Anticubital Left Blood Culture - Preliminary 05/15/24 14:45 Urine, Clean Catch Urine Culture - Preliminary ESBL Escherichia coli Assessment and Plan . Assessment and plan: Critical Care Time: The entirety of this encounter was done via Telemedicine Subjective Subjective Pt seen and examined. Continues to have issues with AF RVR despite pushes and oral meds. PE: General: Well developed, in no distress HEENT: anicteric Sclera, nl nose; supple neck, no masses Cardiovascular: tachy/irreg irreg; + S1/S2; No rubs, gallops; no displaced PM Respiratory: diminished; no crackles, wheezes, or rhonchi Abdominal: soft; Non-tender to light palpation; hypoBS x 4; No Hepatosplenomegaly Extremities: Warm, well perfused; No clubbing, cyanosis; capillary refill < 2 sec Skin: intact, no rashes Neurological: hard of hearing; awake with no gross deficits appreciated A/P: #Hypotension #AF RVR #Ileus vs SBO #Intractable N/V/diarrhea #DM #Morbid obesity #PAF #Hx CVA -SP fluid resuscitation with improvement of vitals; as of yet has not required pressors -HR control, F/U response to dilt push; uptitrate rate control drugs as needed --> agree with restarting dilt gtt; may just need more time before her gut absorbs oral meds more effectively -Surgery on board & recommendations noted; felt presentation more c/w ileus and recommend conservative management --> gastrograffin study completed & now on oral diet; GI also consulted -Cont glycemic monitoring/control Precious CCT: 50 min The entirety of this encounter was completed via telemedicine.
[2024-05-18] MEDS: Diltiazem 125 MG in Dextrose 5%-Water (100mL Bag) 100 ML IV (12:30)
[2024-05-18] MEDS: Benzonatate 100 MG Capsule 200 MG PO ×2 (13:52→20:55)
[2024-05-18 16:45] LABS: Bedside Glucose 203 mg/dL (74-106)
[2024-05-18] MEDS: glipiZIDE 10 MG Tablet PO (18:02)
[2024-05-18] MEDS: metFORMIN HCl 500 MG Tablet PO (18:03)
[2024-05-18] MEDS: Atorvastatin Calcium 80 MG Tablet PO (20:55)
[2024-05-18] MEDS: amLODIPine 10 MG Tablet PO (20:56)
[2024-05-18] MEDS: Metoprolol Tartrate 50 MG Tablet PO (20:57)
[2024-05-18 23:38] LABS: Bedside Glucose 179 mg/dL (74-106)
[2024-05-19] VITALS (20 sets, daily range): BP systolic 97–161; BP diastolic 55–86; PULSE 82–93; RESP 16–32; TEMP 36.1–36.6; O2SAT 91–97; BMI 40.4
[2024-05-19 06:36] LABS: Bedside Glucose 125 mg/dL (74-106)
--- NOTE | 2024-05-19 08:40 | PN.HOSP_ITS ---
Reason for Visit Reason for Visit: Diagnoses Hypotension, unspecified (05/14/24) Unspecified abdominal pain (05/14/24) Nausea with vomiting, unspecified (05/14/24) Diarrhea, unspecified (05/14/24) Subjective Subjective Feels well. Wants to go home. Objective Data Objective Data Vital Signs: Vital Signs Temp Pulse Resp BP Pulse Ox O2 Del Method O2 Flow Rate 36.6 C 92 20 H 160/70 H 95 Nasal Cannula 2 05/19/24 07:00 05/19/24 08:00 05/19/24 08:00 05/19/24 08:00 05/19/24 08:00 05/19/24 08:00 05/19/24 08:00 FiO2 97 05/19/24 07:53 Oxygen Flow Rate (L/min) 2 Oxygen Delivery Method Nasal Cannula Weight: 120.8 kg Body Mass Index (BMI) 40.4 Intake & Output: Intake and Output for Last 24 Hours 05/17/24 05/18/24 05/19/24 23:59 23:59 23:59 Intake Total 929.83 / 929.83 911.17 / 911.17 0 / 0 Output Total 700 / 700 925 / 975 400 / 400 Balance 229.83 / 229.83 -13.83 / -63.83 -400 / -400 Lab / Micro Data 05/19/24 09:01 05/19/24 09:01 Labs: Laboratory Results - last 24 hr 05/18/24 11:24: POC Glucose 194 H 05/18/24 16:22: POC Glucose 203 H 05/18/24 23:14: POC Glucose 179 H 05/19/24 06:11: POC Glucose 125 H Micro: Microbiology 05/15/24 14:45 Urine, Clean Catch Urine Culture - Final ESBL Escherichia coli 05/14/24 13:50 Blood Culture (Wb) - Anticubital Left Blood Culture - Preliminary 05/15/24 03:15 Stool Stool Lactoferrin - Final 05/15/24 03:15 Stool Enteric Bacteriology - Final 05/15/24 03:15 Stool Stool Occult Blood (AISHA) - Final Occult Blood Positive Physical Exam Const alert and no apparent distress HEENT head/scalp atraumatic and moist oral mucous membranes Resp normal respiratory effort, no retractions, no use of accessory muscles and clear to auscultation bilaterally Cardio regular rate, regular rhythm, S1 normal heart sound and S2 normal heart sound GI normal to inspection, nondistended, normoactive bowel sounds, soft to palpation, non-tender and non-distended Extremity normal to inspection and no clubbing, cyanosis or edema Neuro Sensorium / Orientation: awake and alert Assessment & Plan Assessment/Plan (1) Acute hypotension: PLAN: Plan Nausea and vomiting * resolved * initially felt to be a SBO, but since ruled out. General surgery signed off. * GI on consult ESBL E. coli UTI * UA on the appeared rather bland, but UCx showed 80-100K ESBL E. coli * started on nitrofurantoin. Heme positive stools. * Hg dropped from 13.2 to 10.6, but has remained stable at 11.4 * GI on consult, plan for endoscopy. * apixaban on hold * I suspect due to suspect gastroenteritis complicated by anticoagulants. * pt had EGD that was unremarkable. Pt declines any additional work up at this time. Afib with RVR * was on diltiazem gtt. back on carvedilol 12.5. Was also ordered on the metoprolol tartrate 50 BID. I will discontinue the metprolol tartate PO and increase the carvedilol to 25 BID (up from 12.5) * apixaban on hold for now given heme positive stools. Resume in 48h if not evidence of hematochezia/melena. Chronic conditions: * obesity class III: complicates care and recovery * HTN: stable. initially lower on presentation (but I would not qualify as hypotension). * Hyperlipidemia: On atorvastatin. * GERD: IV pantoprazole * obesity class III: complicates care and recovery. VTE prophylaxis: SCDs Charges/Coding Visit Charges Inpatient E&M: 98882 Subs Hosp L2
[2024-05-19 09:25] LABS: Absolute Lymphocyte Count 1.16 X10^3/uL (0.83-4.51); Absolute Neutrophil Count 4.5 X10^3/uL (2.0-7.7); Basophil# 0.04 X10^3/uL; Basophil% 0.6 % (0-1); Eosinophils% 1.5 % (0-5); Hematocrit 42.2 % (37-47); Hemoglobin 12.6 g/dL (12.0-15.0); Lymphocyte # 1.16 X10^3/ul (0.83-4.51); Mean Corp Hgb Conc 29.9 g/dL (32-36); Mean Corpuscular Hgb 23.2 pg (27.0-32.0); Mean Corpuscular Volume 77.7 fL (81-99); Mean Platelet Vol. 8.7 fl (6.2-12.0); Monocyte# 0.54 X10^3/uL; Monocyte% 8.4 % (0-10); NRBC Flagged by Analyzer 0 % (0-5); Neutrophil # 4.54 X10^3/uL (2.7-7.7); Neutrophil % 70.3 % (47-70); Platelet Count 194 K/mm3 (150-450); RBC Distribution Width CV 17.7 % (11.6-14.6); Red Blood Count 5.43 M/mm3 (4.2-5.4); White Blood Count 6.5 K/mm3 (4.4-11.0)
[2024-05-19 09:37] LABS: Anion Gap 6 (5-15); BUN 11 mg/dL (7-18); BUN/Creat Ratio 19.7 RATIO (10-20); Calcium,Total 9.6 mg/dL (8.5-10.1); Chloride 106 mmol/L (98-107); Creatinine, Serum 0.56 mg/dL (0.55-1.02); EST Glomerular Filtration Rate 114 mL/min (>60); Est Glom Filt Rate - Afr Amer 138 mL/min (>60); Glucose 116 mg/dL (74-106); Potassium 3.6 mmol/L (3.5-5.1); Sodium Level 139 mmol/L (136-145)
[2024-05-19] MEDS: Menthol/Lanolin/Calamine/Znox 113 GM Tube 1 APPLIC TOPICAL (10:21)
[2024-05-19] MEDS: Carvedilol 25 MG Tablet PO ×2 (10:21→16:50)
[2024-05-19] MEDS: Nystatin Ointment 1 APPLIC TOPICAL (10:22)
[2024-05-19] MEDS: Pantoprazole Sodium 40 MG in 0.9% Normal Saline (100mL MB+) 100 ML 330 MG IV (10:22)
--- NOTE | 2024-05-19 10:26 | CASEMGMT ---
Social Work This SW met with patient due to concern regarding her ability to comprehend and sign for upcoming procedure. Patient stated that she does not have a DPOA in place, she does not have any children and her parents are both . She did state that she has a sister, Ja Ascencio ([phone]) that lives in [place] and that she was comfortable with staff contacting to obtain permission for any medical testing. Sisters contact information was added to her medical record. Bela Restrepo, CASINO FLOOR SUPERVISOR, FUEL CELL TEST ENGINEER
--- NOTE | 2024-05-19 11:29 | PCM.PRE.AN2 ---
ASA Classification* ASA Classification ASA Classification: 3 Assessment & Plan Anesthesia* Anesthesia Assessment Anesthesia Assessment: Discussed sedation and/or anesthesia options, risks, benefits, and alternatives with patient/parents/legal guardian/POA. Questions invited. The patient/parents/legal guardian/POA seems to understand and agrees to proceed with anesthesia plan. Reviewed the physical assessment, medical history, allergy history and patient home medications list prior to surgery/procedure/anesthetic and documented any changes. Performed airway and anesthesia risk assessments. Anesthesia Type Anesthesia Type: MAC Anesthesia Focused Assessment* Temperature: 97.8 F Pulse Rate: 93 Blood Pressure: 147/63 Respiratory Rate: 23 Pulse Ox: 96 Fraction of Inspired Oxygen (FIO2): 97 Airway Assessment Mouth opens: >3 cm Mallampati Score: II Focused Labs Anesthesia Preop lab: CBC WBC 6.5 K/mm3 (4.4-11.0) 05/19/24 09:01 RBC 5.43 M/mm3 (4.2-5.4) H 05/19/24 09:01 Hgb 12.6 g/dL (12.0-15.0) 05/19/24 09:01 Hct 42.2 % (37-47) 05/19/24 09:01 Plt Count 194 K/mm3 (150-450) 05/19/24 09:01 CHEMISTRY Potassium 3.6 mmol/L (3.5-5.1) 05/19/24 09:01 Sodium 139 mmol/L (136-145) 05/19/24 09:01 Magnesium 1.8 mg/dL (1.6-2.6) 09/30/23 05:10 Phosphorus 3.2 mg/dL (2.5-4.9) 09/30/23 05:10 BUN 11 mg/dL (7-18) 05/19/24 09:01 Creatinine 0.56 mg/dL (0.55-1.02) 05/19/24 09:01 Glucose 116 mg/dL (74-106) H 05/19/24 09:01 POC Glucose 125 mg/dL (74-106) H 05/19/24 06:11 TSH 0.22 uIU/mL (0.358-3.74) L 09/30/23 05:10 COAG PT 13.9 SECONDS (11.7-14.9) 12/29/21 09:45 Pre-Assessment Diagnosis/Proposed Procedure Planned Operative Procedure(s): EGD Anesthesia History Anesthesia History - head well puller: Anesthesia History - head well puller Hx Hospitalization Yes: [facility] 04/10/24 15:01 Any Problems With Anesthesia Yes: makes her itch 05/19/24 10:27 Cholinesterase deficiency No 05/19/24 10:27 You/Your Family Experience No: unsure of family 05/19/24 10:27 fever (hyperthermia) with Relationship Recent Exposure to Contagious No 05/19/24 10:27 Disease Does patient have nerve No 05/19/24 10:27 stimulator Patient instructed to have device shut off --Does patient have Pacemaker No 05/19/24 10:27 or ICD? When Was Last Pacemaker Check QUESTION #4 FULL TEXT: You/Your Family Experience fever (hyperthermia) with Anesthesia Last Oral Intake Last Oral intake: Last Oral Intake NPO since 00:00 05/19/24 10:27 Meds taken in AM with sips of Yes 05/19/24 10:27 water? Meds patient instructed to coreg 05/19/24 10:27 take am of surgery PONV PONV - head well puller: PONV - head well puller Female HX of Motion Sickness HX of N/V After Surgery Non-Smoker Duration of Surgery greater than 60 minutes Number of Risk Factors PONV Score Height & Weight Height & Weight: Anesthesia: Height & Weight Height 5 ft 8 in 05/19/24 10:27 Weight: 120.8 kg 05/19/24 10:27 Body Mass Index (BMI) 40.4 05/19/24 10:27 Respiratory Assessment Respiratory Assessment - head well puller: Respiratory Tract Infection Hx - head well puller Hx Respiratory Tract Infection No 05/19/24 10:27 STOP Sleep Apnea STOP Sleep Apnea - head well puller: STOP Sleep Apnea - head well puller Hx Hypertension Yes 05/15/24 15:53 Hx Sleep Apnea No 05/14/24 14:35 CPAP No 05/14/24 14:35 BIPAP No 05/14/24 14:35 Do you snore loudly (louder No 05/14/24 14:35 than talking or can be heard Do you often feel tired/ Yes 05/14/24 14:35 fatigued/ sleepy during daytime? Has anyone observed you stop No 05/14/24 14:35 breathing during sleep? STOP Results Positive 05/14/24 14:35 QUESTION #5 FULL TEXT : Do you snore loudly (louder than talking or can be heard through closed doors)? 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 Specify any problems Hx of Preganancy in last 3 N/A 05/14/24 14:35 Months Nurse Filling Out Transfusion FSTEINER 05/14/24 14:35 & Questions: Date: 05/14/24 05/14/24 14:35 Time: 14:38 05/14/24 14:35 Patient unable to answer at this time (ie. confused, unrespo /Reproduction History /Reproductive History - head well puller: /Reproductive Hx- head well puller Hx Now No 05/19/24 10:27 Gestational Age (in weeks): EDC: Hx Hx Para Hx Section SAB No 05/19/24 10:27 Active Medications Active Medications: Current Medications Generic Name Dose Route Start Last Admin Trade Name Freq PRN Reason Stop Dose Admin Acetaminophen 650 mg 05/15/24 02:08 Acetaminophen 650 Mg Suppository RC Q4H PRN PRN Fever, pain 1-10 Albuterol/Ipratropium 3 ml 05/14/24 14:15 05/15/24 19:40 Ipratropium/Albuterol Sulfate 3 Ml Ampul.Neb INHALATION 3 ml Q6HWA.RT MARK Administration Amlodipine Besylate 10 mg 05/18/24 22:00 05/18/24 20:56 Amlodipine 10 Mg Tablet PO 10 mg QHS [facility] Administration Protocol Atorvastatin Calcium 80 mg 05/18/24 22:00 05/18/24 20:55 Atorvastatin Calcium 80 Mg Tablet PO 80 mg QHS MARK Administration Benzonatate 200 mg 05/18/24 14:00 05/19/24 06:27 Benzonatate 100 Mg Capsule PO Not Given TID [facility] Calamine/Phenol 1 applic 05/15/24 10:00 05/19/24 10:21 Menthol/Lanolin/Calamine/Znox 113 Gm Tube TOPICAL 1 applic BID [facility] Administration Protocol Carvedilol 25 mg 05/19/24 10:00 05/19/24 10:21 Carvedilol 25 Mg Tablet PO 25 mg BIDCM [facility] Administration Protocol Empagliflozin 25 mg 05/19/24 10:00 Empagliflozin 25 Mg Tablet PO DAILY [facility] Gabapentin 600 mg 05/19/24 10:00 Gabapentin 600 Mg Tablet PO DAILY [facility] Glipizide 10 mg 05/18/24 16:30 05/19/24 09:19 Glipizide 10 Mg Tablet PO Not Given BID@0730,1630 [facility] Glucagon 1 mg 05/14/24 14:15 Glucagon 1 Mg/Ml Syringe IM X1 PRN Hypoglycemia Protocol Dextrose 250 mls @ 0 mls/hr 05/14/24 14:15 Dextrose 10%-Water IV .Q0M PRN HYPOGLYCEMIA Protocol As Directed Sodium Chloride 100 mls @ 15 mls/hr 05/14/24 14:43 IV .Q6H40M PRN Saline Flush Sodium Chloride 100 mls @ 15 mls/hr 05/14/24 14:43 IV .Q6H40M PRN Additional IVPB Infusion Pantoprazole Sodium 40 mg/ 110 mls @ 330 mls/hr 05/15/24 10:00 05/19/24 10:51 Sodium Chloride IV Infused Q12 MARK Infusion Norepinephrine Bitartrate 8 mg 250 mls @ 9.375 mls/hr 05/15/24 05:53 05/18/24 14:37 / Sodium Chloride CONT INF Not Given .[id number] [facility] Protocol 5 MCG/MIN Insulin Glargine 15 unit 05/19/24 10:00 05/19/24 09:19 Insulin Glargine-Yfgn 100 Unit/Ml Pen SC Not Given DAILY [facility] Insulin Human Lispro 0 unit 05/14/24 18:00 05/19/24 06:27 Insulin Lispro 100 Unit/Ml Insuln.Pen SC Not Given Q6 [facility] Protocol Lisinopril 40 mg 05/19/24 10:00 Lisinopril 40 Mg Tablet PO DAILY [facility] Protocol Metformin HCl 500 mg 05/18/24 17:00 05/19/24 09:19 Metformin Hcl 500 Mg Tablet PO Not Given BIDCM [facility] Nitrofurantoin Macrocrystals 100 mg 05/17/24 22:00 05/18/24 20:55 Nitrofurantoin Macrocrystals 100 Mg Capsule PO 05/22/24 10:01 100 mg BID [facility] Administration Nystatin 1 applic 05/15/24 10:00 05/19/24 10:22 Nystatin Ointment TOPICAL 1 applic BID [facility] Administration Protocol Ondansetron HCl 4 mg 05/14/24 20:37 05/15/24 04:15 Ondansetron 4 Mg/2 Ml Vial IV 4 mg Q6H PRN PRN Administration NAUSEA/VOMITING Pioglitazone HCl 15 mg 05/19/24 10:00 Pioglitazone Hydrochloride 15 Mg Tablet PO DAILY [facility] Prochlorperazine Edisylate 5 mg 05/14/24 20:37 05/15/24 00:28 Prochlorperazine 10 Mg/2 Ml Vial IV 5 mg Q4H PRN PRN Administration NAUSEA/VOMITING Sodium Chloride 10 - 40 ml 05/14/24 14:43 05/18/24 11:04 0.9% Saline Lock 10 Ml Syringe IV 10 ml UD PRN Administration [facility] Medical History History of ESBL E. coli infection Wears glasses Former smoker Obesity Ambulates with cane Stroke/cerebrovascular accident Difficulty in walking Poor historian Recurrent incisional hernia with incarceration Incarcerated ventral hernia Obstructive sleep apnea Atrial fibrillation Intraventricular hemorrhage Embolic stroke GERD (gastroesophageal reflux disease) Obesity (BMI 30-39.9) Hyperlipidemia Hypertension Diabetes mellitus Home Medications ?Medication ?Instructions ?Recorded ?Last Taken ?Type omeprazole 20 mg capsule,delayed 20 mg PO DAILY GERd 05/29/14 02/23/21 History release amlodipine 10 mg tablet (Norvasc) 10 mg PO QHS HTN 10/04/16 02/23/21 History apixaban 5 mg tablet (Eliquis) 5 mg PO BID blood thinner 10/04/16 12/26/21 History atorvastatin 80 mg tablet 80 mg PO QHS 10/25/16 02/23/21 Rx lisinopril 40 mg tablet 40 mg PO DAILY HTN 10/25/16 02/23/21 Rx carvedilol 12.5 mg tablet 12.5 mg PO BID HTN 01/23/21 02/23/21 History pioglitazone 15 mg tablet 15 mg PO DAILY DM #30 tabs 10/09/22 Unknown Rx glipizide 10 mg tablet 10 mg PO BID DM 08/09/23 Unknown History benzonatate 200 mg capsule 200 mg PO TID 01/01/24 Unknown History dapagliflozin propanediol 10 mg 10 mg PO QDAY 01/01/24 Unknown History tablet (Farxiga) diphenoxylate-atropine 2.5 1 tab PO Q8H PRN diarrhea 01/01/24 Unknown History mg-0.025 mg tablet gabapentin 600 mg tablet 600 mg PO QDAY 01/01/24 Unknown History loratadine 10 mg tablet (Allergy 10 mg PO DAILY ALLERGIES 01/01/24 Unknown History Relief (loratadine)) metformin 500 mg tablet 500 mg PO BID DM 01/01/24 Unknown History tramadol 50 mg tablet 50 mg PO TID PRN pain #15 tabs 02/26/24 Unknown Rx albuterol sulfate 90 mcg/actuation 2 inh inhalation Q4H PRN shortness 05/14/24 Unknown History aerosol inhaler of breath or wheezing dulaglutide 4.5 mg/0.5 mL 4.5 mg subcut QWEEK DM 05/14/24 Unknown History subcutaneous pen injector (Trulicity) hydrocodone-acetaminophen 5-325mg 1 tab PO TID PRN pain 05/14/24 Unknown History 5mg-325mg insulin glargine 100 unit/mL (3 15 unit subcut DAILY 05/14/24 Unknown History mL) subcutaneous pen (Lantus Solostar U-100 Insulin) lidocaine 5 % topical patch 1 patch topical DAILY 05/14/24 Unknown History multivitamin with folic acid 400 1 tab PO DAILY 05/14/24 Unknown History mcg tablet (Daily-Levon (with folic acid)) Allergy/AdvReac Type Severity Reaction Status Date / Time iodine Allergy Mild Itching Verified 05/14/24 10:01 Penicillins Allergy Mild Itching Verified 05/14/24 10:01 Family History Father CVA (cerebral vascular accident) Mother Diabetes Stomach cancer Other High cholesterol Hypertension Surgical History History of cholecystectomy Hx of colonoscopy Status post debridement History of hysterectomy S/P repair of ventral hernia Social History household members: none Smoking Status: Former smoker alcohol intake: never substance use type: does not use what type of physical activity do you participate in: walking frequency: daily Review of Systems (Anesthesia) ROS Narrative System reviewed and no additional complaints, except as documented.
--- NOTE | 2024-05-19 11:37 | NURSING ---
Patient left unit at 1120 to endoscopy
--- NOTE | 2024-05-19 12:03 | PN.GI_ITS ---
Subjective Subjective Patient is not having any abdominal pain. Objective Data Objective Data Vital Signs: Vital Signs Temp Pulse Resp BP Pulse Ox O2 Del Method O2 Flow Rate 97.8 F 93 23 H 147/63 H 96 Nasal Cannula 2 05/19/24 11:29 05/19/24 11:29 05/19/24 11:29 05/19/24 11:29 05/19/24 11:29 05/19/24 10:00 05/19/24 11:29 FiO2 97 05/19/24 11:29 Oxygen Flow Rate (L/min) 2 Oxygen Delivery Method Nasal Cannula Weight: 266 lb 5.094 oz Body Mass Index (BMI) 40.4 Intake & Output: Intake and Output for Last 24 Hours 05/17/24 05/18/24 05/19/24 23:59 23:59 23:59 Intake Total 929.83 / 929.83 911.17 / 911.17 110 / 110 Output Total 700 / 700 925 / 975 600 / 600 Balance 229.83 / 229.83 -13.83 / -63.83 -490 / -490 Lab / Micro Data 05/19/24 09:01 05/19/24 09:01 Labs: Laboratory Results - last 24 hr 05/18/24 16:22: POC Glucose 203 H 05/18/24 23:14: POC Glucose 179 H 05/19/24 06:11: POC Glucose 125 H 05/19/24 09:01: WBC 6.5, RBC 5.43 H, Hgb 12.6, Hct 42.2, MCV 77.7 L, MCH 23.2 L, MCHC 29.9 L, RDW Std Deviation 49.0 H, RDW Coeff of Faby 17.7 H, Plt Count 194, MPV 8.7, Immature Gran % (Auto) 1.200 H, Neut % (Auto) 70.3 H, Lymph % (Auto) 18.0 L, [place] % (Auto) 8.4, Eos % (Auto) 1.5, Baso % (Auto) 0.6, Absolute Neuts (auto) 4.5, Absolute Lymphs (auto) 1.16, Nucleated RBC % 0, Sodium 139, Potassium 3.6, Chloride 106, Carbon Dioxide 27.0, Anion Gap 6, BUN 11, Creatinine 0.56, Estim Creat Clear Calc 90.80, Est GFR (MDRD) Af Amer 138, Est GFR (MDRD) Non-Af 114, BUN/Creatinine Ratio 19.7, Glucose 116 H, Calcium 9.6 Micro: Microbiology 05/15/24 14:45 Urine, Clean Catch Urine Culture - Final ESBL Escherichia coli 05/14/24 13:50 Blood Culture (Wb) - Anticubital Left Blood Culture - Preliminary 05/15/24 03:15 Stool Stool Lactoferrin - Final 05/15/24 03:15 Stool Enteric Bacteriology - Final 05/15/24 03:15 Stool Stool Occult Blood (AISHA) - Final Occult Blood Positive Physical Exam Const alert, oriented x3 and no apparent distress General Appearance: cooperative HEENT normocephalic, head/scalp atraumatic and moist oral mucous membranes Eyes PERRL and EOMs intact bilaterally Neck no lymphadenopathy and supple Lymph Lymphatic: no lymphadenopathy noted and no lymphedema noted Resp Resp Narrative: mildly diminished breath sounds bibasally, no wheezes or crackles. Remains on 2L of oxygen by nasal canula Cardio regular rate, regular rhythm, S1 normal heart sound, S2 normal heart sound and no murmurs GI normal to inspection, nondistended, normoactive bowel sounds, soft to palpation, non-tender and non-distended Extremity normal capillary refill, no clubbing, cyanosis or edema and no calf tenderness General Extremity: no tenderness to palpation of joints or extremities Skin General Skin Exam: no breakdown Neuro CN's II-XII intact bilaterally and no focal motor deficits Neuro Narrative: lethargic, weak and frail, moves all extremities spontaneously. Motor Exam: general weakness Psych thought process normal Appearance: appropriate Assessment & Plan Assessment/Plan (1) Acute hypotension: PLAN: Plan Hypotension * resolved. * BP today is 132/58 * CT of the abdomen and pelvis showed small bowel obstruction possibly due to involvement ini the right lower quadrant ventral hernia. * did not require vasopressors. * Critical care on board. * General surgery on board and does not think that she has a small bowel obstruction as she is passing stools and so favors an IV as well as a small bowel obstruction. General surgery also reviewed CT scan images and thinks is less likely that the hernia is contributing to this. General surgery did recommend conservative management with aggressive fluid resuscitation * gastrograffin study showed no evidence of small bowel obstruction * she is now on a diet after she eventually passed her swallow evaluation. Nausea and vomiting with probable small bowel obstruction * Patient refused NG tube insertion. * CT scan as above. Conservative management for now. COntinue gentle hydration with IVF * IV zofran prn * nausea and vomiting has resolved. General surg doesn't think it is a small bowel obstruction * resolved. * now on a diet. Positive occult stool * patient's stool for occult blood was positive * she is on eliquis; Hb is stable at 11.2. However, because she is on blood thinners * Patient will undergo EGD today to evaluate her Hemoccult positive stools and her anemia. * Charges/Coding Visit Charges Inpatient E&M: 90367 Subs Hosp L3
--- NOTE | 2024-05-19 12:26 | EX.PCM.PN.GI ---
Subjective Subjective Patient is doing well. She just underwent an upper endoscopy. No etiology to patient's mild anemia and fecal positive stools were seen. Objective Data Objective Data Vital Signs: Vital Signs Temp Pulse Resp BP Pulse Ox O2 Del Method O2 Flow Rate 97.8 F 93 23 H 147/63 H 96 Nasal Cannula 2 05/19/24 11:29 05/19/24 11:29 05/19/24 11:29 05/19/24 11:29 05/19/24 11:29 05/19/24 10:00 05/19/24 11:29 FiO2 97 05/19/24 11:29 Oxygen Flow Rate (L/min) 2 Oxygen Delivery Method Nasal Cannula Weight: 266 lb 5.094 oz Body Mass Index (BMI) 40.4 Intake & Output: Intake and Output for Last 24 Hours 05/17/24 05/18/24 05/19/24 23:59 23:59 23:59 Intake Total 929.83 / 929.83 911.17 / 911.17 110 / 110 Output Total 700 / 700 925 / 975 600 / 600 Balance 229.83 / 229.83 -13.83 / -63.83 -490 / -490 Lab / Micro Data 05/19/24 09:01 05/19/24 09:01 Labs: Laboratory Results - last 24 hr 05/18/24 16:22: POC Glucose 203 H 05/18/24 23:14: POC Glucose 179 H 05/19/24 06:11: POC Glucose 125 H 05/19/24 09:01: WBC 6.5, RBC 5.43 H, Hgb 12.6, Hct 42.2, MCV 77.7 L, MCH 23.2 L, MCHC 29.9 L, RDW Std Deviation 49.0 H, RDW Coeff of Faby 17.7 H, Plt Count 194, MPV 8.7, Immature Gran % (Auto) 1.200 H, Neut % (Auto) 70.3 H, Lymph % (Auto) 18.0 L, [place] % (Auto) 8.4, Eos % (Auto) 1.5, Baso % (Auto) 0.6, Absolute Neuts (auto) 4.5, Absolute Lymphs (auto) 1.16, Nucleated RBC % 0, Sodium 139, Potassium 3.6, Chloride 106, Carbon Dioxide 27.0, Anion Gap 6, BUN 11, Creatinine 0.56, Estim Creat Clear Calc 90.80, Est GFR (MDRD) Af Amer 138, Est GFR (MDRD) Non-Af 114, BUN/Creatinine Ratio 19.7, Glucose 116 H, Calcium 9.6 Micro: Microbiology 05/15/24 14:45 Urine, Clean Catch Urine Culture - Final ESBL Escherichia coli 05/14/24 13:50 Blood Culture (Wb) - Anticubital Left Blood Culture - Preliminary 05/15/24 03:15 Stool Stool Lactoferrin - Final 05/15/24 03:15 Stool Enteric Bacteriology - Final 05/15/24 03:15 Stool Stool Occult Blood (AISHA) - Final Occult Blood Positive Physical Exam Const alert, oriented x3 and no apparent distress General Appearance: cooperative HEENT normocephalic, head/scalp atraumatic and moist oral mucous membranes Eyes PERRL and EOMs intact bilaterally Neck no lymphadenopathy and supple Lymph Lymphatic: no lymphadenopathy noted and no lymphedema noted Resp Resp Narrative: mildly diminished breath sounds bibasally, no wheezes or crackles. Remains on 2L of oxygen by nasal canula Cardio regular rate, regular rhythm, S1 normal heart sound, S2 normal heart sound and no murmurs GI normal to inspection, nondistended, normoactive bowel sounds, soft to palpation, non-tender and non-distended Extremity normal capillary refill, no clubbing, cyanosis or edema and no calf tenderness General Extremity: no tenderness to palpation of joints or extremities Skin General Skin Exam: no breakdown Neuro CN's II-XII intact bilaterally and no focal motor deficits Neuro Narrative: lethargic, weak and frail, moves all extremities spontaneously. Motor Exam: general weakness Psych thought process normal Appearance: appropriate Assessment & Plan Assessment/Plan (1) Nausea, vomiting and diarrhea: PLAN: Resolved. Likely viral gastroenteritis (2) Anemia: PLAN: Patient's upper endoscopy was normal. She would need a colonoscopy to figure out if her fecal occult positive stools and her anemia is secondary to pathology in her lower GI tract. However I do not think she wants to have a colonoscopy at this time. She is never had a colonoscopy in the past. I will leave it up to the patient to see if she wants to have a colonoscopy. Charges/Coding Visit Charges Inpatient E&M: 49949 Subs Hosp L2
--- NOTE | 2024-05-19 12:30 | IMM_PTH ---
PATHOLOGY RESULTS PATIENT: ZOIE DE LA PAZ LOC: ICU U#:[id number] AGE/SX: 68/F ROOM: ICU04 RE05/14/[address]: Dr. Bryce Felder DO : 1955 BED: 1 DIS: 05/19/2024 SPEC #: [id number] RECD: 05/20/24 09:02 STATUS: RADHA REQ #: [id number] TONE: 05/19/24 12:[address]: Yogesh Bach DEPT: IMMUNOHISTOCHEMISTRY RECD BY: Juan Manuel Boyd ENTERED: 05/20/24 09:03 SP TYPE: IMMUNO OTHR DR: MD Dr. Gonzalez Adhikari MD Dr. Derek Brown, DO Dr. David P Myers, MD Dr. Eric Jopperi, DO Dr. Edward Matheis, MD Dr. Gautam Baskaran, MD Dr. Yordanos Habtegebriel, MD Dr. Hemant Dand, MD Dr. Jose Ochoa, MD Dr. Kimber Foust, MD Dr. Lamia Aljundi, MD Dr. Mark Stutzman, DO Dr. Nana Yaa Koram, MD Dr. Prakash Chand, MD Dr. Pritam Ghosh, MD Dr. Pavan Irukulla, MD Dr. Saad Farooqi, MD Dr. Sujoy Gill, MD Dr. Steven A Wanek, MD Dr. Vikram Anand, MD Dr. William Haden, MD Tissues: Gastric mucous membrane Procedures: H Pylori (initial) [facility] [address] [place] [address] SPECIMEN INFORMATION: Tissue Source: B- Gastric antrum Clinical Info: Nausea, vomiting, abdominal pain heme positive stools Specimen Number: [id number] CPT code: 59614 METHODOLOGY: Deparaffinized sections of prefer/formalin-fixed tissue or PAP/DQ stained slides are incubated with monoclonal/polyclonal antibodies/oligonucleotide probes. Localization is made via biotin free immunoperoxidase method. Appropriate controls are performed and reacted as expected. Results on target cell population are indicated in the following table: RESULTS: ANTIBODY / CLONE RESULT Block B H Pylori (polyclonal) negative These tests were developed and their performance characteristics determined by [facility]. They may not have been cleared or approved by the U.S. Food and Drug Administration. The FDA has determined that such clearance or approval is not necessary. The above immunohistochemical/dualISH markers are ordered and reviewed by the Pathologist. INTERPRETATION: B. Gastric antrum, biopsy: Negative for Helicobacter pylori organisms. AM. 05/21/2024
--- NOTE | 2024-05-19 12:30 | EGD_PTH ---
PATHOLOGY RESULTS PATIENT: ZOIE DE LA PAZ LOC: ICU U#:[id number] AGE/SX: 68/F ROOM: ICU04 RE05/14/[address]: Dr. Bryce Felder DO : 1955 BED: 1 DIS: 05/19/2024 SPEC #: [id number] RECD: 05/20/24 07:15 STATUS: RADHA REQ #: [id number] TONE: 05/19/24 12:[address]: Yogesh Bach DEPT: SURGICAL PATHOLOGY RECD BY: Elaine Wiseman ENTERED: 05/20/24 09:51 SP TYPE: EGD BIOPSY OTHR DR: MD Dr. Gonzalez Adhikari MD Dr. Derek Brown, DO Dr. David P Myers, MD Dr. Eric Jopperi, DO Dr. Edward Matheis, MD Dr. Gautam Baskaran, MD Dr. Yordanos Habtegebriel, MD Dr. Hemant Dand, MD Dr. Jose Ochoa, MD Dr. Kimber Foust, MD Dr. Lamia Aljundi, MD Dr. Mark Stutzman, DO Dr. Nana Yaa Koram, MD Dr. Prakash Chand, MD Dr. Pritam Ghosh, MD Dr. Pavan Irukulla, MD Dr. Saad Farooqi, MD Dr. Sujoy Gill, MD Dr. Steven A Wanek, MD Dr. Vikram Anand, MD Dr. William Haden, MD Tissues: Duodenum, NOS Gastric mucous membrane Procedures: Surgery Specimen Level IV Comments: @ Ordering doctor for SUIV edited from to @ by YAN at 05/20/24 1052 @ Submitting doctor edited from to @ by JACLYN at 05/20/24 1052 HEADER OPERATION: EGD with biopsy PRE-OP DIAGNOSIS: Nausea, vomiting, abdominal pain, heme positive stools TISSUE SUBMITTED: A- Duodenal biopsy, B- Gastric antrum MICROSCOPIC DIAGNOSIS A. Duodenum, biopsy: No pathologic change. B. Gastric antrum, biopsy: Chronic gastritis. See comment. 05/21/2024 COMMENT B. The results of immunohistochemistry for Helicobacter pylori will be reported separately ([id number]). MICROSCOPIC DESCRIPTION Slides are reviewed. GROSS DESCRIPTION A. Received in fixative is one container labeled with the patient's name and designated Duodenal biopsy. The specimen consists of multiple irregular fragments of light samaniego soft tissue that in aggregate measure 0.5 x 0.5 x 0.1 cm. The specimen is totally submitted in one cassette. B. Received in fixative is one container labeled with the patient's name and designated Gastric antrum biopsy. The specimen consists of two irregular fragments of light samaniego soft tissue that in aggregate measure 0.6 x 0.2 x 0.1 cm. The specimen is totally submitted in one cassette. SJ 05/20/2024 TC:3 [facility]:[id number]
--- NOTE | 2024-05-19 13:17 | NURSING ---
Patient returned to unit
--- NOTE | 2024-05-19 13:18 | PCM.POST.ANE ---
Anesthesia: Postop Eval I Current Vital Signs Temperature: 97 F Pulse Rate: 89 Blood Pressure: 144/77 Respiratory Rate: 21 Pulse Ox: 97 Oxygen Delivery Method: Nasal Cannula Oxygen Flow Rate (L/min): 2 Assessment Airway patent: Yes Spontaneous unlabored respirations: Yes nausea: No Vomiting: No Anesthesia Complication: No Fluid Hydration Crystalloid volume administer (ml): 5 Total IV fluid infused: 5 Progress Note Anesthesia document: Postop Eval 1 completed: Yes
--- NOTE | 2024-05-19 13:40 | PCM.PN.TICU ---
Objective Data Objective Data Vital Signs: Vital Signs Last response Temperature 36.1 C L 05/19/24 13:17 Temperature Source Temporal 05/19/24 13:17 Pulse Rate 89 05/19/24 13:17 Pulse Strength Normal (2+) 05/19/24 10:00 Respiratory Rate 21 H 05/19/24 13:17 Respiratory Effort Normal, Non-Labored 05/19/24 08:00 Respiratory Depth Normal 05/19/24 08:00 Respiratory Pattern Normal 05/19/24 12:26 Blood Pressure 144/75 H 05/19/24 13:17 Blood Pressure Mean 98 05/19/24 13:17 Blood Pressure Source Monitor 05/19/24 13:17 Blood Pressure Position Semi-Fowlers 05/19/24 13:17 Blood Pressure Location Left Arm 05/19/24 13:17 Baseline BP 147/63 05/19/24 12:46 Pulse Ox 96 05/19/24 13:17 Oxygen Delivery Method Nasal Cannula 05/19/24 13:17 Oxygen Flow Rate (L/min) 2 05/19/24 13:17 Fraction of Inspired Oxygen (FIO2) 97 05/19/24 11:29 I&O: I&O Last 24 Hours 05/18/24 05/19/24 05/19/24 23:59 11:59 23:59 Intake Total 561.17 / 911.17 110 / 110 Output Total 250 / 975 600 / 600 Balance 311.17 / -63.83 -490 / -490 I&O: Total Stay 05/14/24 09:54 thru 05/19/24 11:39 Intake Total 7713.17 Output Total 3550 Balance 4163.17 Current Meds Ordered / Administered: Current meds ordered / Administered Generic Name Dose Route Start Last Admin Trade Name Freq PRN Reason Stop Dose Admin Acetaminophen 650 mg 05/15/24 02:08 Acetaminophen 650 Mg Suppository RC Q4H PRN PRN Fever, pain 1-10 Albuterol/Ipratropium 3 ml 05/14/24 14:15 05/15/24 19:40 Ipratropium/Albuterol Sulfate 3 Ml Ampul.Neb INHALATION 3 ml Q6HWA.RT MARK Administration Amlodipine Besylate 10 mg 05/18/24 22:00 05/18/24 20:56 Amlodipine 10 Mg Tablet PO 10 mg QHS MARK Administration Protocol Atorvastatin Calcium 80 mg 05/18/24 22:00 05/18/24 20:55 Atorvastatin Calcium 80 Mg Tablet PO 80 mg QHS MARK Administration Benzonatate 200 mg 05/18/24 14:00 05/19/24 06:27 Benzonatate 100 Mg Capsule PO Not Given TID [facility] Calamine/Phenol 1 applic 05/15/24 10:00 05/19/24 10:21 Menthol/Lanolin/Calamine/Znox 113 Gm Tube TOPICAL 1 applic BID [facility] Administration Protocol Carvedilol 25 mg 05/19/24 10:00 05/19/24 10:21 Carvedilol 25 Mg Tablet PO 25 mg BIDCM [facility] Administration Protocol Empagliflozin 25 mg 05/19/24 10:00 Empagliflozin 25 Mg Tablet PO DAILY [facility] Gabapentin 600 mg 05/19/24 10:00 Gabapentin 600 Mg Tablet PO DAILY [facility] Glipizide 10 mg 05/18/24 16:30 05/19/24 09:19 Glipizide 10 Mg Tablet PO Not Given BID@0730,1630 [facility] Glucagon 1 mg 05/14/24 14:15 Glucagon 1 Mg/Ml Syringe IM X1 PRN Hypoglycemia Protocol Dextrose 250 mls @ 0 mls/hr 05/14/24 14:15 Dextrose 10%-Water IV .Q0M PRN HYPOGLYCEMIA Protocol As Directed Sodium Chloride 100 mls @ 15 mls/hr 05/14/24 14:43 IV .Q6H40M PRN Saline Flush Sodium Chloride 100 mls @ 15 mls/hr 05/14/24 14:43 IV .Q6H40M PRN Additional IVPB Infusion Pantoprazole Sodium 40 mg/ 110 mls @ 330 mls/hr 05/15/24 10:00 05/19/24 10:51 Sodium Chloride IV Infused Q12 MARK Infusion Norepinephrine Bitartrate 8 mg 250 mls @ 9.375 mls/hr 05/15/24 05:53 05/18/24 14:37 / Sodium Chloride CONT INF Not Given .[id number] [facility] Protocol 5 MCG/MIN Insulin Glargine 15 unit 05/19/24 10:00 05/19/24 09:19 Insulin Glargine-Yfgn 100 Unit/Ml Pen SC Not Given DAILY [facility] Insulin Human Lispro 0 unit 05/14/24 18:00 05/19/24 06:27 Insulin Lispro 100 Unit/Ml Insuln.Pen SC Not Given Q6 [facility] Protocol Lisinopril 40 mg 05/19/24 10:00 Lisinopril 40 Mg Tablet PO DAILY [facility] Protocol Metformin HCl 500 mg 05/18/24 17:00 05/19/24 09:19 Metformin Hcl 500 Mg Tablet PO Not Given BIDCM [facility] Nitrofurantoin Macrocrystals 100 mg 05/17/24 22:00 05/18/24 20:55 Nitrofurantoin Macrocrystals 100 Mg Capsule PO 05/22/24 10:01 100 mg BID MARK Administration Nystatin 1 applic 05/15/24 10:00 05/19/24 10:22 Nystatin Ointment TOPICAL 1 applic BID [facility] Administration Protocol Ondansetron HCl 4 mg 05/14/24 20:37 05/15/24 04:15 Ondansetron 4 Mg/2 Ml Vial IV 4 mg Q6H PRN PRN Administration NAUSEA/VOMITING Pioglitazone HCl 15 mg 05/19/24 10:00 Pioglitazone Hydrochloride 15 Mg Tablet PO DAILY [facility] Prochlorperazine Edisylate 5 mg 05/14/24 20:37 05/15/24 00:28 Prochlorperazine 10 Mg/2 Ml Vial IV 5 mg Q4H PRN PRN Administration NAUSEA/VOMITING Sodium Chloride 10 - 40 ml 05/14/24 14:43 05/18/24 11:04 0.9% Saline Lock 10 Ml Syringe IV 10 ml UD PRN Administration SALINE FLUSH Lab / Micro Data 05/19/24 09:01 05/19/24 09:01 Labs: Laboratory Results - last 24 hr 05/18/24 16:22: POC Glucose 203 H 05/18/24 23:14: POC Glucose 179 H 05/19/24 06:11: POC Glucose 125 H 05/19/24 09:01: WBC 6.5, RBC 5.43 H, Hgb 12.6, Hct 42.2, MCV 77.7 L, MCH 23.2 L, MCHC 29.9 L, RDW Std Deviation 49.0 H, RDW Coeff of Faby 17.7 H, Plt Count 194, MPV 8.7, Immature Gran % (Auto) 1.200 H, Neut % (Auto) 70.3 H, Lymph % (Auto) 18.0 L, Frio % (Auto) 8.4, Eos % (Auto) 1.5, Baso % (Auto) 0.6, Absolute Neuts (auto) 4.5, Absolute Lymphs (auto) 1.16, Nucleated RBC % 0, Sodium 139, Potassium 3.6, Chloride 106, Carbon Dioxide 27.0, Anion Gap 6, BUN 11, Creatinine 0.56, Estim Creat Clear Calc 90.80, Est GFR (MDRD) Af Amer 138, Est GFR (MDRD) Non-Af 114, BUN/Creatinine Ratio 19.7, Glucose 116 H, Calcium 9.6 Micro: Microbiology 05/15/24 14:45 Urine, Clean Catch Urine Culture - Final ESBL Escherichia coli 05/14/24 13:50 Blood Culture (Wb) - Anticubital Left Blood Culture - Preliminary Assessment and Plan . Assessment and plan: Critical Care Time: The entirety of this encounter was done via Telemedicine
[2024-05-19 13:54] LABS: Bedside Glucose 127 mg/dL (74-106)
[2024-05-19] MEDS: Pioglitazone Hydrochloride 15 MG Tablet PO (13:58)
[2024-05-19] MEDS: Lisinopril 40 MG Tablet PO (13:58)
[2024-05-19] MEDS: Benzonatate 100 MG Capsule 200 MG PO (13:58)
[2024-05-19] MEDS: Empagliflozin 25 MG Tablet PO (13:59)
[2024-05-19] MEDS: Nitrofurantoin Macrocrystals 100 MG Capsule PO (14:00)
[2024-05-19] MEDS: Gabapentin 600 MG Tablet PO (14:02)
[2024-05-19 14:22] LABS: Bedside Glucose 110 mg/dL (74-106)
--- NOTE | 2024-05-19 15:27 | OP.CCLET_ITS ---
05/19/2024 Dennis Pelayo [address] [facility] [place] [address] Re : Upper GI endoscopy procedure for Alissa Zimmer Dear Dr. Pelayo This procedure was performed on Sunday, May 19, 2024. My impressions and recommendations are as follows: Impressions : - Normal esophagus. - Chronic gastritis. Biopsied. - Erythematous duodenopathy. Recommendations : - [facility]. - Resume regular diet. - Continue present medications. - Await pathology results. My findings are described in the full procedure note, which is enclosed. If I can be of further assistance, please feel free to contact me at . Sincerely, Yogesh Bach, 05/19/2024 12:26:19 PM This report has been signed electronically.
--- NOTE | 2024-05-19 15:27 | OP.EGD_ITS ---
Patient Name: Alissa Zimmer Procedure Date: 05/19/2024 11:54 AM Date of : 1955 Age: 68 Procedure: Upper GI endoscopy Indications: Iron deficiency anemia Providers: Yogesh Bach DO Medicines: Monitored Anesthesia Care Patient Profile: This is a 68 year old female. Refer to note in patient chart for documentation of history and physical. Patient has symptoms. Complications: No immediate complications. Procedure: Pre-Anesthesia Assessment: - Prior to the procedure, a History and Physical was performed, and patient medications and allergies were reviewed. The patient is competent. The risks and benefits of the procedure and the sedation options and risks were discussed with the patient. All questions were answered and informed consent was obtained. Patient identification and proposed procedure were verified by the physician in the pre-procedure area. Mental Status Examination: alert and oriented. Airway Examination: normal oropharyngeal airway and neck mobility. Respiratory Examination: clear to auscultation. CV Examination: normal. Prophylactic Antibiotics: The patient does not require prophylactic antibiotics. Prior Anticoagulants: The patient has taken no anticoagulant or antiplatelet agents except for NSAID medication. ASA Grade Assessment: II - A patient with mild systemic disease. After reviewing the risks and benefits, the patient was deemed in satisfactory condition to undergo the procedure. The anesthesia plan was to use monitored anesthesia care (MAC). Immediately prior to administration of medications, the patient was re-assessed for adequacy to receive sedatives. The heart rate, respiratory rate, oxygen saturations, blood pressure, adequacy of pulmonary ventilation, and response to care were monitored throughout the procedure. The physical status of the patient was re-assessed after the procedure. After obtaining informed consent, the endoscope was passed under direct vision. Throughout the procedure, the patient's blood pressure, pulse, and oxygen saturations were monitored continuously. The gastroscope was introduced through the mouth, and advanced to the second part of duodenum. The upper GI endoscopy was accomplished without difficulty. The patient tolerated the procedure well. Scope In: 12:18:07 PM Scope Out: 12:21:44 PM Total Procedure Duration Time 0 hours 3 minutes 37 seconds Findings: The examined esophagus was normal. Patchy mild inflammation characterized by erythema was found in the gastric antrum. Biopsies were taken with a cold forceps for histology. Verification of patient identification for the specimen was done. Estimated blood loss was minimal. Biopsies were taken with a cold forceps for Helicobacter pylori testing. Verification of patient identification for the specimen was done. Estimated blood loss was minimal. Patchy mildly erythematous mucosa without active bleeding and with no stigmata of bleeding was found in the first portion of the duodenum. Impression: - Normal esophagus. - Chronic gastritis. Biopsied. - Erythematous duodenopathy. Recommendation: - Return patient to [facility]. - Resume regular diet. - Continue present medications. - Await pathology results. Procedure Code(s): --- Professional --- 67296, Esophagogastroduodenoscopy, flexible, transoral; with biopsy, single or multiple CPT copyright 2021 [employer]. All rights reserved. The codes documented in this report are preliminary and upon director of optimization review may be revised to meet current compliance requirements. Yogesh Bach DO 05/19/2024 12:26:19 PM This report has been signed electronically. Number of Addenda: 0 Note Initiated On: 05/19/2024 11:54 AM
--- NOTE | 2024-05-19 16:26 | DS.PCM_ITS ---
Providers Date of Admission: 05/14/24 Primary Care Physician: Dr. Dennis Pelayo, DO Consultations 05/14/24 17:34 Consult: General Surgery Routine Consulting Provider: Pantera Aldridge Reason for Consult: SBO, RIGHT Ventral hernia bowel loop EMERGENT Consult: No Notified: Yes Date Notified: 05/14/24 Time Notified: 17:34 Method of Notification: Verbal 05/15/24 05:53 Consult: International Guest Coordinator / Pulmonary Medicine Routine Consulting Provider: Intensivists/Pulmonary Med Reason for Consult: Hypotensive EMERGENT Consult: No Notified: Yes Date Notified: 05/15/24 Time Notified: 04:59 Method of Notification: Text 05/17/24 07:19 Consult: Gastroenterology Routine Consulting Provider: [facility] Reason for Consult: positive stool for occult blood; on eliquis EMERGENT Consult: No Notified: Yes Date Notified: 05/17/24 Time Notified: 07:19 Method of Notification: Text Reason For Visit: INTRACTABLE NAUSEA, VOMITING, HYPOXIA Diagnosis Discharge Diagnosis (1) Acute hypotension: Status: Acute Code(s): I95.9 - Hypotension, unspecified Plan Nausea and vomiting * resolved * initially felt to be a SBO, but since ruled out. General surgery signed off. * GI on consult ESBL E. coli UTI * UA on the appeared rather bland, but UCx showed 80-100K ESBL E. coli * started on nitrofurantoin. Heme positive stools. * Hg dropped from 13.2 to 10.6, but has remained stable at 11.4 * GI on consult, plan for endoscopy. * apixaban on hold * I suspect due to suspect gastroenteritis complicated by anticoagulants. * pt had EGD that was unremarkable. Pt declines any additional work up at this time. Afib with RVR * was on diltiazem gtt. back on carvedilol 12.5. Was also ordered on the metoprolol tartrate 50 BID. I will discontinue the metprolol tartate PO and increase the carvedilol to 25 BID (up from 12.5) * apixaban on hold for now given heme positive stools. Resume in 48h if not evidence of hematochezia/melena. Chronic conditions: * obesity class III: complicates care and recovery * HTN: stable. initially lower on presentation (but I would not qualify as hypotension). * Hyperlipidemia: On atorvastatin. * GERD: IV pantoprazole * obesity class III: complicates care and recovery. VTE prophylaxis: SCDs Medications at Discharge Home Medications omeprazole 20 mg capsule,delayed release 20 mg PO DAILY GERd 05/29/14 amlodipine 10 mg tablet (Norvasc) 10 mg PO QHS HTN 10/04/16 apixaban 5 mg tablet (Eliquis) 5 mg PO BID blood thinner 10/04/16 atorvastatin 80 mg tablet 80 mg PO QHS 10/25/16 lisinopril 40 mg tablet 40 mg PO DAILY HTN 10/25/16 pioglitazone 15 mg tablet 15 mg PO DAILY DM #30 tabs 10/09/22 glipizide 10 mg tablet 10 mg PO BID DM 08/09/23 benzonatate 200 mg capsule 200 mg PO TID 01/01/24 dapagliflozin propanediol 10 mg tablet (Farxiga) 10 mg PO QDAY 01/01/24 diphenoxylate-atropine 2.5 mg-0.025 mg tablet 1 tab PO Q8H PRN diarrhea 01/01/24 gabapentin 600 mg tablet 600 mg PO QDAY 01/01/24 loratadine 10 mg tablet (Allergy Relief (loratadine)) 10 mg PO DAILY ALLERGIES 01/01/24 metformin 500 mg tablet 500 mg PO BID DM 01/01/24 albuterol sulfate 90 mcg/actuation aerosol inhaler 2 inh inhalation Q4H PRN shortness of breath or wheezing 05/14/24 dulaglutide 4.5 mg/0.5 mL subcutaneous pen injector (Trulicity) 4.5 mg subcut QWEEK DM 05/14/24 hydrocodone-acetaminophen 5-325mg 5mg-325mg 1 tab PO TID PRN pain 05/14/24 insulin glargine 100 unit/mL (3 mL) subcutaneous pen (Lantus Solostar U-100 Insulin) 15 unit subcut DAILY 05/14/24 lidocaine 5 % topical patch 1 patch topical DAILY 05/14/24 multivitamin with folic acid 400 mcg tablet (Daily-Levon (with folic acid)) 1 tab PO DAILY 05/14/24 carvedilol 25 mg tablet 25 mg PO BIDCM #60 tabs 05/19/24 nitrofurantoin monohydrate/macrocrystals 100 mg capsule 100 mg PO BID #8 caps 05/19/24 Hospital Course Operations None Procedures EGD Summary of Care Provided Minutes Spent on Discharge: 40 Weight / BMI Weight Weight: 120.8 kg Body Mass Index (BMI) 40.4 ABG / Lab / Microbiology Data 05/19/24 09:01 05/19/24 09:01 Laboratory: Laboratory Results - last 24 hr 05/18/24 16:22: POC Glucose 203 H 05/18/24 23:14: POC Glucose 179 H 05/19/24 06:11: POC Glucose 125 H 05/19/24 08:13: POC Glucose 127 H 05/19/24 09:01: WBC 6.5, RBC 5.43 H, Hgb 12.6, Hct 42.2, MCV 77.7 L, MCH 23.2 L, MCHC 29.9 L, RDW Std Deviation 49.0 H, RDW Coeff of Faby 17.7 H, Plt Count 194, MPV 8.7, Immature Gran % (Auto) 1.200 H, Neut % (Auto) 70.3 H, Lymph % (Auto) 18.0 L, Williams % (Auto) 8.4, Eos % (Auto) 1.5, Baso % (Auto) 0.6, Absolute Neuts (auto) 4.5, Absolute Lymphs (auto) 1.16, Nucleated RBC % 0, Sodium 139, Potassium 3.6, Chloride 106, Carbon Dioxide 27.0, Anion Gap 6, BUN 11, Creatinine 0.56, Estim Creat Clear Calc 90.80, Est GFR (MDRD) Af Amer 138, Est GFR (MDRD) Non-Af 114, BUN/Creatinine Ratio 19.7, Glucose 116 H, Calcium 9.6 05/19/24 13:53: POC Glucose 110 H Microbiology: Microbiology 05/15/24 14:45 Urine, Clean Catch Urine Culture - Final ESBL Escherichia coli 05/14/24 13:50 Blood Culture (Wb) - Anticubital Left Blood Culture - Preliminary 05/15/24 03:15 Stool Stool Lactoferrin - Final 05/15/24 03:15 Stool Enteric Bacteriology - Final 05/15/24 03:15 Stool Stool Occult Blood (AISHA) - Final Occult Blood Positive D/C Instructions Discharge Diet: Low fat / Low cholesterol Discharge Activity: Use Walker Weight Bearing Status: Full weight bearing Meaningful Use Info Meaningful Use Meaningful Use Diagnoses (Choose all that apply): None applicable Ischemic Stroke Statin Dosing Therapy Reference: STATIN DOSE THERAPY REFERENCE: * Patients > 75 years receive moderate or high dose statin therapy. * Patients 75 years or YOUNGER should receive HIGH intensity statin dose unless contraindicated. You will be required to document reason for non-treatment if statin daily dose does not meet guidelines. HIGH DOSE STATIN THERAPY DAILY Atorvastatin > than or = to 40 mg Rosuvastatin > than or = to 20 mg Amlodipine + Atorvastatin > than or = to 2.5/40 mg Ezetimibe + Simvastatin 10/80 mg Simvastatin 80mg Discharge Plan Admission Admit Date/Time: 05/14/24 13:37 Primary Reason for Your Visit: atrial fibrillation Attending Provider: Bryce Felder Primary Care Provider: Dennis Pelayo Consulting Providers: Pantera Aldridge; Jose Kumari; Gonzalez Dumont; Conrado Faith; Bobo Bro; Keon Covington; Familia Matthews; Gabi Riley; Elmer Ta; Aditya Powell; Lanny Kaur; Santa Yepez; Byron Terry; Gentry Garcia; Blayne Harman; Supriya Blake; Kavon Castillo; Nixon Torres; Mark Villalta; Sharyn Viveros Discharge Orders/Prescriptions Prescriptions: New carvedilol 25 mg Tablet 25 mg PO BIDCM Qty: 60 0RF nitrofurantoin monohyd/m-cryst 100 mg Capsule 100 mg PO BID Qty: 8 0RF Continued dapagliflozin propanediol [Farxiga] 10 mg tablet 10 mg PO QDAY gabapentin 600 mg tablet 600 mg PO QDAY metformin 500 mg tablet 500 mg PO BID diphenoxylate-atropine 2.5-0.025 mg tablet 1 tab PO Q8H PRN (Reason: diarrhea) benzonatate 200 mg capsule 200 mg PO TID loratadine [Allergy Relief (loratadine)] 10 mg tablet 10 mg PO DAILY omeprazole 20 MG capsule 20 mg PO DAILY amlodipine [Norvasc] 10 MG tablet 10 mg PO QHS atorvastatin 80 MG tablet 80 mg PO QHS 0RF lisinopril 40 MG tablet 40 mg PO DAILY 0RF glipizide 10 mg tablet 10 mg PO BID albuterol sulfate 90 mcg/actuation HFA aerosol inhaler 2 inh inhalation Q4H PRN (Reason: shortness of breath or wheezing) hydrocodone-acetaminophen 5-325 mg tablet 1 tab PO TID PRN (Reason: pain) multivitamin with folic acid [Daily-Levon (with folic acid)] 400 mcg tablet 1 tab PO DAILY insulin glargine [Lantus Solostar U-100 Insulin] 100 unit/mL (3 mL) insulin pen 15 unit subcut DAILY lidocaine 5 % adhesive patch,medicated 1 patch topical DAILY Trulicity 4.5 mg/0.5 mL pen injector 4.5 mg subcut QWEEK Patient Comments: PT VERY CONFUSED ON WHEN SHE TAKES THIS INJECTION. GOES BACK AND FORTH BETWEEN SHE TAKES IT EVERYDAY, AND SHE TAKES IT ON SUNDAY AND SUNDAY. STATES SHE TOOK IT YESTERDAY(05/13/24) pioglitazone 15 mg tablet 15 mg PO DAILY Qty: 30 3RF Held Eliquis 5 MG tablet 5 mg PO BID Hold Instructions: Resume on 05/21/24. If no blood in stools or dark tarry stools. Discontinued carvedilol 12.5 mg tablet 12.5 mg PO BID tramadol 50 mg tablet 50 mg PO TID PRN (Reason: pain) Qty: 15 0RF Referrals / Follow Up: [facility] [Provider Group] - Within 1 Month Dennis Pelayo DO [Primary Care Provider] - Within 2 Weeks Disposition Disposition (needs filled in before D/C Order can be placed): Home, Self Care Charges/Coding Visit Charges Inpatient E&M: 98714 Disch Hosp >30min
--- NOTE | 2024-05-19 16:36 | CASEMGMT ---
AYE CHAUDHRY in to discuss discharge with patient. Patient states she would like [facility] at discharge and declined list. AYE CHAUDHRY updated patient that CM would work on referral and finalize HHC in the morning and that CM would call patient to confirm. Patient agreeable to C being finalized tomorrow. Patient denied further needs or concerns. AYE CHAUDHRY called and made referral to [facility], awaiting acceptance.
[2024-05-19] MEDS: glipiZIDE 10 MG Tablet PO (16:49)
[2024-05-19] MEDS: metFORMIN HCl 500 MG Tablet PO (16:49)
[2024-05-19 17:11] LABS: Bedside Glucose 200 mg/dL (74-106)
--- NOTE | 2024-05-19 17:19 | PCM.POSTANE2 ---
Anesthesia Postop Eval I Sum Postop Eval Completion status Anesthesia document: Postop Eval 1 completed: Yes Anesthesia Postop Eval I Summary Anesthesia Postop Eval I Summary: Anesthesia Postop Eval I: Assessment Summary Airway patent Yes 05/19/24 17:19 Spontaneous unlabored Yes 05/19/24 17:19 respirations Mental status nausea No 05/19/24 17:19 Vomiting No 05/19/24 17:19 Anesthesia Postop Eval I: Fluid Summary Crystalloid volume administer 5 05/19/24 17:19 (ml) Colloids volume administered ( ml) Blood Product volume administered (ml) Total IV fluid infused 5 05/19/24 17:19 Anesthesia Postop Eval I: Summary Notes Anesthesia Complication No 05/19/24 17:19 Anesthesia Complication Comment: Post-operative progress note Anesthesia: Postop Eval II Evaluation Mental status: Awake Pain Level: 0 nausea: No Vomiting: No
--- NOTE | 2024-05-20 12:18 | CASEMGMT ---
Social Work SW called Kera Isaac w/[employer], got her voicemail, so transferred to coverage person know to let her know pt did go home yesterday. CHRISTOS Ludwig
== END 2024-05-19 18:15 | disposition home or self-care (01) | DRG 392 ==
LOC: ED 12:23 → MS3 14:32 → ICU 05-15 05:55
PROVIDERS: Family Medicine; Internal Medicine Critical Care Medicine; Internal Medicine Gastroenterology; Student in an Organized Health Care Education/Training Program; Admitting Provider Internal Medicine; Emergency Provider Emergency Medicine; PCP Family Medicine
PROC: 0DJ08ZZ Inspection of Upper Intestinal Tract, Via Natural or Artificial Opening Endoscopic (ICD-10-PCS; CPT 43235; principal; 2024-05-19 12:25)
DX: R11.2 Nausea with vomiting, unspecified (principal); Z68.41 Body mass index [BMI] 40.0-44.9, adult; N39.0 Urinary tract infection, site not specified; D50.9 Iron deficiency anemia, unspecified; B96.20 Unspecified Escherichia coli [E. coli] as the cause of diseases classified elsewhere; E11.65 Type 2 diabetes mellitus with hyperglycemia; E66.813 Obesity, class 3; I48.0 Paroxysmal atrial fibrillation; E86.1 Hypovolemia; I10 Essential (primary) hypertension; I95.9 Hypotension, unspecified; Z79.4 Long term (current) use of insulin; E78.5 Hyperlipidemia, unspecified; E83.52 Hypercalcemia; K21.9 Gastro-esophageal reflux disease without esophagitis; K29.50 Unspecified chronic gastritis without bleeding; K31.89 Other diseases of stomach and duodenum; R19.7 Diarrhea, unspecified; Z79.85 Long-term (current) use of injectable non-insulin antidiabetic drugs; Z87.891 Personal history of nicotine dependence; Z90.710 Acquired absence of both cervix and uterus; R79.89 Other specified abnormal findings of blood chemistry; Z79.84 Long term (current) use of oral hypoglycemic drugs; Z86.73 Personal history of transient ischemic attack (TIA), and cerebral infarction without residual deficits; Z79.899 Other long term (current) drug therapy; Z79.01 Long term (current) use of anticoagulants; R53.83 Other fatigue
CPT/HCPCS: 36415; 36600; 71046; 71250; 74018; 74019; 74176; 74250; 80048; 80053; 81001; 82140; 82274; 82803; 82962; 83605; 83630; 83690; 85025; 87040; 87077; 87086; 87088; 87186; 87493; 87506; 88305; 88342; 92507; 92526; 93005; 94640; 94762; 97116; 97162; 97166; 97530; 99285; J7030; J7050; A4216; J2405

== ENCOUNTER → 2024-06-06 | Outpatient (CLI) | payer MEDICARE, MEDICAID, SELFPAY ==
[2024-06-06 17:49] LABS: Color, Urine Yellow (Yellow); Glucose, Dipstick 1000 mg/dl (Normal); Ketone-Dipstick Negative (Negative); Leukocyte Esterase-Dipstick 100 /ul (Negative); Nitrite-Dipstick Positive (Negative); Occult Blood-Urine 10 /ul (Negative); Protein-Dipstick Negative (Negative); Urine Bilirubin Dipstick Negative (Negative); Urine Clarity Sl. Cloudy (Clear); Urine Urobilinogen Normal (Normal); Urine pH 6.5 (5.0 - 8.0)
== END | disposition home or self-care (01) ==
LOC: LABSPEC 14:39
PROVIDERS: PCP Family Medicine; Referring Provider Family Medicine; Visit Provider Family Medicine
DX: N39.0 Urinary tract infection, site not specified (principal)
CPT/HCPCS: 81002; 87077; 87086; 87088; 87186

== ENCOUNTER 2024-06-08 15:48 | Inpatient (IN) | payer MEDICARE, MEDICAID, SELFPAY ==
[2024-06-08 15:49] VITALS: BP 131/82; PULSE 78; RESP 18; TEMP 36.6; O2SAT 99; BMI 41.2
[2024-06-08 15:52] VITALS: BP 131/82; PULSE 78; RESP 18; TEMP 36.6; O2SAT 99
--- NOTE | 2024-06-08 16:21 | EX.ED.DYSGE1 ---
HPI History of Present Illness Chief Complaint: Complaint Narrative Narrative: Patient is a 68-year-old female with past medical history of FLOR, atrial fibrillation, GERD, hypertension, diabetes, hyperlipidemia, ESBL who presented to the emergency department with a chief complaint of painful urination increased frequency of urinating. Patient states that she was recently admitted to the hospital and noted that she was discharged home about a week ago. States that a few days after getting home she noted that she had burning with urination. Patient states that on Sunday she was evaluated by her primary care physician for a UTI and gave a urine sample and was placed on Bactrim. Patient states that she has had worsening pain prompting her to come here for further evaluation management [facility] Medical History History of ESBL E. coli infection Wears glasses Former smoker Obesity Ambulates with cane Stroke/cerebrovascular accident Difficulty in walking Poor historian Recurrent incisional hernia with incarceration Incarcerated ventral hernia Obstructive sleep apnea Atrial fibrillation Intraventricular hemorrhage Embolic stroke GERD (gastroesophageal reflux disease) Obesity (BMI 30-39.9) Hyperlipidemia Hypertension Diabetes mellitus Home Medications ?Medication ?Instructions ?Recorded ?Last Taken ?Type omeprazole 20 mg capsule,delayed 20 mg PO DAILY GERd 05/29/14 06/08/24 History release amlodipine 10 mg tablet (Norvasc) 10 mg PO QHS HTN 10/04/16 06/07/24 History apixaban 5 mg tablet (Eliquis) 5 mg PO BID blood thinner 10/04/16 06/08/24 History atorvastatin 80 mg tablet 80 mg PO QHS 10/25/16 06/07/24 Rx lisinopril 40 mg tablet 40 mg PO DAILY HTN 10/25/16 06/08/24 Rx pioglitazone 15 mg tablet 15 mg PO DAILY DM #30 tabs 10/09/22 06/08/24 Rx glipizide 10 mg tablet 10 mg PO BID DM 08/09/23 06/08/24 History dapagliflozin propanediol 10 mg 10 mg PO QDAY 01/01/24 06/08/24 History tablet (Farxiga) diphenoxylate-atropine 2.5 1 tab PO Q8H PRN diarrhea 01/01/24 Unknown History mg-0.025 mg tablet gabapentin 600 mg tablet 600 mg PO QDAY 01/01/24 06/08/24 History metformin 500 mg tablet 500 mg PO BID DM 01/01/24 06/08/24 History dulaglutide 4.5 mg/0.5 mL 4.5 mg subcut QWEEK DM 05/14/24 06/08/24 History subcutaneous pen injector (Trulicity) insulin glargine 100 unit/mL (3 15 unit subcut DAILY 05/14/24 06/08/24 History mL) subcutaneous pen (Lantus Solostar U-100 Insulin) multivitamin with folic acid 400 1 tab PO DAILY 05/14/24 06/08/24 History mcg tablet (Daily-Levon (with folic acid)) carvedilol 25 mg tablet 25 mg PO BID #60 tabs 05/19/24 06/08/24 Rx cholecalciferol (vitamin D3) 50 50 mcg PO DAILY 06/08/24 06/08/24 History mcg (2,000 unit) capsule furosemide 40 mg tablet 40 mg PO DAILY 06/08/24 Unknown History nystatin 100,000 unit/gram topical 1 applic topical BID 06/08/24 06/08/24 History powder sulfamethoxazole 800 1 tab PO BID 06/08/24 06/08/24 History mg-trimethoprim 160 mg tablet Allergy/AdvReac Type Severity Reaction Status Date / Time iodine Allergy Mild Itching Verified 05/14/24 10:01 Penicillins Allergy Mild Itching Verified 05/14/24 10:01 Family History Father CVA (cerebral vascular accident) Mother Diabetes Stomach cancer Other High cholesterol Hypertension Surgical History History of cholecystectomy Hx of colonoscopy Status post debridement History of hysterectomy S/P repair of ventral hernia Social History household members: none Smoking Status: Former smoker alcohol intake: never substance use type: does not use what type of physical activity do you participate in: walking frequency: daily ROS ROS ED ROS Narrative Constitutional: Denies any fevers, chills, headaches, lightness, dizziness Eyes: Denies change in vision double vision blurry vision Cardiovascular: Denies chest pain or palpitations Respiratory: Denies coughing wheezing shortness of breath Abdomen: Denies nausea vomiting diarrhea : Complains of urinary symptoms as noted above Neurological: Denies numbness, wheeze, tingling Musculoskeletal: Denies back pain Skin: Denies rashes or lesions EXAM Physical Exam Narrative Exam Narrative: General: Patient lying in bed rest comfortably did not appear to be in acute distress Head: Atraumatic, normocephalic Eyes: PERRL bilateral, EOMI bilateral, no conjunctival injection noted Neck: Soft, supple, trachea midline Cardiovascular: Regular rate and rhythm no murmurs gallops rubs noted Respiratory: Clear to auscultation bilaterally no rales rhonchi or wheezes noted Abdomen: Soft, nondistended, no tenderness palpation, bowel sounds present MS 4 Extremities: +5/5 strength noted in the bilateral upper and lower extremities, no pedal edema no exam Neurological: Patient follow commands knew that she was at [facility] years 2023 Skin: Warm, dry, intact Const Vital Signs: 06/08/24 15:49 06/08/24 15:52 Temperature 98 F 98 F Temperature Source Oral Oral Pulse Rate 78 78 Respiratory Rate 18 18 Blood Pressure 131/82 H 131/82 H Blood Pressure Mean 98 98 Pulse Ox 99 99 Oxygen Delivery Method Room Air Room Air MDM MDM MDM Narrative Medical decision making narrative: Patient is a 68-year-old female who presents to the emergency department the chief complaint of burning with urination. On the differential diagnose includes but limited to UTI, pyelonephritis. Once workup is obtained reviewed she will be reevaluated. Patient's urinalysis from Sunday was reviewed and was significant for thousand glucose positive nitrates 100 leukocyte esterase and a urine culture was obtained as well this was reviewed was positive for greater than 100,000 colony-forming units of ESBL E. coli with multiple resistance drugs including Bactrim which she is currently on. Patient will be given Zosyn here in the emergency department. Patient's CBC reviewed and showed no evidence leukocytosis white blood count normal at 5.7, hemoglobin stable 11.7, platelet count normal at 231. Patient's sodium normal at 130, potassium was 5.2, creatinine was noted be 1.10. Patient's AST and ALT were 14 and 15 respectively. Patient's lipase normal at 59. At this point time do believe the patient will warrant admission for her ESBL urinary tract infection. Did give the patient Zosyn. Patient case will be discussed with hospitalist for admission. Discussed case with hospitalist Dr. Giles who accept patient for admission. Patient was notified is agreeable this plan all question concerns answered bedside. Lab Data Labs: Laboratory Results - last 24 hr 06/08/24 06/08/24 16:25 16:28 WBC 5.7 RBC 5.00 Hgb 11.7 L Hct 39.5 MCV 79.0 L MCH 23.4 L MCHC 29.6 L RDW Std Deviation 53.5 H RDW Coeff of Faby 19.6 H Plt Count 231 MPV 8.5 Immature Gran % (Auto) 1.200 H Neut % (Auto) 58.8 Lymph % (Auto) 29.2 [place] % (Auto) 8.7 Eos % (Auto) 1.6 Baso % (Auto) 0.5 Absolute Neuts (auto) 3.4 Absolute Lymphs (auto) 1.67 Nucleated RBC % 0 Sodium 138 Potassium 5.2 H Chloride 112 H Carbon Dioxide 23.0 Anion Gap 3 L BUN 18 Creatinine 1.10 H Estim Creat Clear Calc 66.74 Est GFR (MDRD) Af Amer 63 Est GFR (MDRD) Non-Af 52 L BUN/Creatinine Ratio 16.4 Glucose 94 Calcium 9.3 Total Bilirubin 0.20 AST 14 L ALT 15 Alkaline Phosphatase 98 Total Protein 6.8 Albumin 2.6 L Globulin 4.2 Albumin/Globulin Ratio 0.6 L Lipase 59 Discharge Plan Triage Chief Complaint: Complaint ED Provider: Hitesh Marks Dx/Rx/DC Orders Clinical Impression: Urinary tract infection, ESBL (extended spectrum beta-lactamase) producing bacteria infection Prescriptions: No Action dapagliflozin propanediol [Farxiga] 10 mg tablet 10 mg PO QDAY gabapentin 600 mg tablet 600 mg PO QDAY metformin 500 mg tablet 500 mg PO BID diphenoxylate-atropine 2.5-0.025 mg tablet 1 tab PO Q8H PRN (Reason: diarrhea) omeprazole 20 MG capsule 20 mg PO DAILY amlodipine [Norvasc] 10 MG tablet 10 mg PO QHS Eliquis 5 MG tablet 5 mg PO BID atorvastatin 80 MG tablet 80 mg PO QHS 0RF lisinopril 40 MG tablet 40 mg PO DAILY 0RF glipizide 10 mg tablet 10 mg PO BID multivitamin with folic acid [Daily-Levon (with folic acid)] 400 mcg tablet 1 tab PO DAILY insulin glargine [Lantus Solostar U-100 Insulin] 100 unit/mL (3 mL) insulin pen 15 unit subcut DAILY Trulicity 4.5 mg/0.5 mL pen injector 4.5 mg subcut QWEEK Patient Comments: sundays carvedilol 25 mg tablet 25 mg PO BID Qty: 60 0RF Rx Instructions: must administer with a meal/food furosemide 40 mg tablet 40 mg PO DAILY sulfamethoxazole-trimethoprim 800-160 mg tablet 1 tab PO BID nystatin 100,000 unit/gram powder 1 applic topical BID cholecalciferol (vitamin D3) 50 mcg (2,000 unit) capsule 50 mcg PO DAILY pioglitazone 15 mg tablet 15 mg PO DAILY Qty: 30 3RF Primary Care Provider: Dennis Pelayo Referrals: Dennis Pelayo DO [Primary Care Provider] - Print Language: Romansh Disposition Disposition: Acute Care Hospital [facility]
[2024-06-08] MEDS: Morphine 4 MG/ML Syringe IV (16:32)
[2024-06-08] MEDS: Ondansetron 4 MG/2 ML Vial IV (16:32)
[2024-06-08 16:34] LABS: Absolute Lymphocyte Count 1.67 X10^3/uL (0.83-4.51); Absolute Neutrophil Count 3.4 X10^3/uL (2.0-7.7); Basophil# 0.03 X10^3/uL; Basophil% 0.5 % (0-1); Eosinophil# 0.09 X10^3/uL; Eosinophils% 1.6 % (0-5); Hematocrit 39.5 % (37-47); Hemoglobin 11.7 g/dL (12.0-15.0); Lymphocyte # 1.67 X10^3/ul (0.83-4.51); Lymphocyte % 29.2 % (19-41); Mean Corp Hgb Conc 29.6 g/dL (32-36); Mean Corpuscular Hgb 23.4 pg (27.0-32.0); Mean Platelet Vol. 8.5 fl (6.2-12.0); Monocyte% 8.7 % (0-10); NRBC Flagged by Analyzer 0 % (0-5); Neutrophil # 3.36 X10^3/uL (2.7-7.7); Neutrophil % 58.8 % (47-70); Platelet Count 231 K/mm3 (150-450); RBC Distribution Width CV 19.6 % (11.6-14.6); RBC Distribution Width SD 53.5 fl (35.1-43.9); White Blood Count 5.7 K/mm3 (4.4-11.0)
[2024-06-08] MEDS: Piperacil/Tazobactam 3.375 GM in 0.9% Normal Saline (50mL MB+) 50 ML IV ×2 (16:41→23:14)
[2024-06-08 16:51] LABS: ALB/GLOB Ratio 0.6 RATIO (0.9-2.4); AST(SGOT) 14 U/L (15-37); Alanine Aminotransfer ALT/SGPT 15 U/L (13-56); Albumin, Serum 2.6 g/dL (3.2-5.0); Alkaline Phosphatase 98 U/L (45-117); Anion Gap 3 (5-15); BUN 18 mg/dL (7-18); BUN/Creat Ratio 16.4 RATIO (10-20); Calcium,Total 9.3 mg/dL (8.5-10.1); Chloride 112 mmol/L (98-107); EST Glomerular Filtration Rate 52 mL/min (>60); Est Glom Filt Rate - Afr Amer 63 mL/min (>60); Estimated Creatinine Clearance 66.74 ml/min; Globulin 4.2 g/dL (2.2-4.2); Glucose 94 mg/dL (74-106); Lipase 59 U/L (13-75); Potassium 5.2 mmol/L (3.5-5.1); Protein, Total 6.8 g/dL (6.4-8.2); Sodium Level 138 mmol/L (136-145)
[2024-06-08 17:31] VITALS: BP 136/97; PULSE 79; RESP 16; TEMP 36.8; O2SAT 97
--- NOTE | 2024-06-08 17:48 | PCM.HP.STD ---
HPI - General General Date of Admission: 06/08/24 Date of Service: 06/08/24 Chief Complaint: Recommend urinary tract infection HPI Narrative ZOIE DE LA PAZ, is a 68 F with history of type 2 diabetes mellitus [on insulin, dapagliflozin, metformin] obesity, A-fib on Eliquis, ventral hernia, FLOR, GERD who presents to the ED with concerns regarding dysuria ongoing since the last few days. She was recently discharged from the hospital after a prolonged admission from 05/14/2024 for abdominal pain for the last 3 to 4 days along with nausea and vomiting. Initially SBO was suspected but ruled out, EGD was done for concerns regarding bleeding but it was unremarkable. She had A-fib with RVR and she was started on carvedilol 25 mg twice daily and apixaban was restarted. At the time of presentation today her blood pressure was 117/67, pulse of 80, afebrile, satting well on room air,WBC 5.7, hemoglobin 9.7, platelet count 231, potassium 5.2, chloride 112, creatinine 1.1, calcium 9.3 AST 14, alk phos 98, albumin 2.6. [facility] Medical History History of ESBL E. coli infection Wears glasses Former smoker Obesity Ambulates with cane Stroke/cerebrovascular accident Difficulty in walking Poor historian Recurrent incisional hernia with incarceration Incarcerated ventral hernia Obstructive sleep apnea Atrial fibrillation Intraventricular hemorrhage Embolic stroke GERD (gastroesophageal reflux disease) Obesity (BMI 30-39.9) Hyperlipidemia Hypertension Diabetes mellitus Home Medications ?Medication ?Instructions ?Recorded ?Last Taken ?Type omeprazole 20 mg capsule,delayed 20 mg PO DAILY GERd 05/29/14 06/08/24 History release amlodipine 10 mg tablet (Norvasc) 10 mg PO QHS HTN 10/04/16 06/07/24 History apixaban 5 mg tablet (Eliquis) 5 mg PO BID blood thinner 10/04/16 06/08/24 History atorvastatin 80 mg tablet 80 mg PO QHS 10/25/16 06/07/24 Rx lisinopril 40 mg tablet 40 mg PO DAILY HTN 10/25/16 06/08/24 Rx pioglitazone 15 mg tablet 15 mg PO DAILY DM #30 tabs 10/09/22 06/08/24 Rx glipizide 10 mg tablet 10 mg PO BID DM 08/09/23 06/08/24 History dapagliflozin propanediol 10 mg 10 mg PO QDAY 01/01/24 06/08/24 History tablet (Farxiga) diphenoxylate-atropine 2.5 1 tab PO Q8H PRN diarrhea 01/01/24 Unknown History mg-0.025 mg tablet gabapentin 600 mg tablet 600 mg PO QDAY 01/01/24 06/08/24 History metformin 500 mg tablet 500 mg PO BID DM 01/01/24 06/08/24 History dulaglutide 4.5 mg/0.5 mL 4.5 mg subcut QWEEK DM 05/14/24 06/08/24 History subcutaneous pen injector (Trulicity) insulin glargine 100 unit/mL (3 15 unit subcut DAILY 05/14/24 06/08/24 History mL) subcutaneous pen (Lantus Solostar U-100 Insulin) multivitamin with folic acid 400 1 tab PO DAILY 05/14/24 06/08/24 History mcg tablet (Daily-Levon (with folic acid)) carvedilol 25 mg tablet 25 mg PO BID #60 tabs 05/19/24 06/08/24 Rx cholecalciferol (vitamin D3) 50 50 mcg PO DAILY 06/08/24 06/08/24 History mcg (2,000 unit) capsule furosemide 40 mg tablet 40 mg PO DAILY 06/08/24 Unknown History nystatin 100,000 unit/gram topical 1 applic topical BID 06/08/24 06/08/24 History powder sulfamethoxazole 800 1 tab PO BID 06/08/24 06/08/24 History mg-trimethoprim 160 mg tablet Allergy/AdvReac Type Severity Reaction Status Date / Time iodine Allergy Mild Itching Verified 05/14/24 10:01 Penicillins Allergy Mild Itching Verified 05/14/24 10:01 Family History Father CVA (cerebral vascular accident) Mother Diabetes Stomach cancer Other High cholesterol Hypertension Surgical History History of cholecystectomy Hx of colonoscopy Status post debridement History of hysterectomy S/P repair of ventral hernia Social History household members: none Smoking Status: Former smoker alcohol intake: never substance use type: does not use what type of physical activity do you participate in: walking frequency: daily Vital Signs Vital Signs Vital Signs: 06/08/24 15:49 06/08/24 15:52 06/08/24 17:31 Temperature 98 F 98 F 98.2 F Temperature Source Oral Oral Pulse Rate 78 78 79 Respiratory Rate 18 18 16 Blood Pressure 131/82 H 131/82 H 136/97 H Blood Pressure Mean 98 98 110 Pulse Ox 99 99 97 Oxygen Delivery Method Room Air Room Air Weight Weight: 271 lb 6.224 oz Body Mass Index (BMI) 41.2 Physical Exam Const alert and oriented x3 HEENT normocephalic Eyes PERRL Neck no lymphadenopathy Cardio regular rate and regular rhythm GI normal to inspection, nondistended, normoactive bowel sounds Extremity normal to inspection Neuro oriented x3 and CN's II-XII intact bilaterally Results Medical Records Data Attestation: I reviewed the patient's medical records Lab / Micro Data Attestation: I reviewed the patient's lab results. 06/08/24 16:25 06/08/24 16:28 Labs: Laboratory Results - last 24 hr 06/08/24 16:25: WBC 5.7, RBC 5.00, Hgb 11.7 L, Hct 39.5, MCV 79.0 L, MCH 23.4 L, MCHC 29.6 L, RDW Std Deviation 53.5 H, RDW Coeff of Faby 19.6 H, Plt Count 231, MPV 8.5, Immature Gran % (Auto) 1.200 H, Neut % (Auto) 58.8, Lymph % (Auto) 29.2, [place] % (Auto) 8.7, Eos % (Auto) 1.6, Baso % (Auto) 0.5, Absolute Neuts (auto) 3.4, Absolute Lymphs (auto) 1.67, Nucleated RBC % 0 06/08/24 16:28: Sodium 138, Potassium 5.2 H, Chloride 112 H, Carbon Dioxide 23.0, Anion Gap 3 L, BUN 18, Creatinine 1.10 H, Estim Creat Clear Calc 66.74, Est GFR (MDRD) Af Amer 63, Est GFR (MDRD) Non-Af 52 L, BUN/Creatinine Ratio 16.4, Glucose 94, Calcium 9.3, Total Bilirubin 0.20, AST 14 L, ALT 15, Alkaline Phosphatase 98, Total Protein 6.8, Albumin 2.6 L, Globulin 4.2, Albumin/Globulin Ratio 0.6 L, Lipase 59 Assessment & Plan Assessment/Plan (1) ESBL (extended spectrum beta-lactamase) producing bacteria infection: PLAN: Plan 68-year-old female, with past medical history of type 2 diabetes, obesity, hypertension is admitted for concerns regarding dysuria following ESBL UTI. She was on oral antibiotics and has not been responding the same she is being admitted for IV antibiotic therapy. She is also on Farxiga that is known to cause urinary tract infection, discontinue permanently. #ESBL -Cultures from 06/06/2024 showed sensitivity to piperacillin tazobactam, nitrofurantoin, tobramycin -Will start her on piperacillin tazobactam -Discontinue Farxiga as that may be the reason for the recurrent infections -Monitor input output #Type 2 diabetes mellitus -Poorly controlled -Continue home insulin -Insulin sliding scale #Paroxysmal A-fib -Continue Eliquis -Continue carvedilol #History of embolic stroke: Continue Eliquis #Hypertension: Continue amlodipine, carvedilol 25 mg twice daily, furosemide 40 mg daily, lisinopril 40 daily #Dyslipidemia: Continue atorvastatin #Morbid obesity, continue to monitor #GERD:Continue home medications #DVT prophylaxis: Already on therapeutic anticoagulation Charges/Coding Visit Charges Inpatient E&M: 48020 Init Hosp L2
[2024-06-08 18:51] VITALS: BP 117/67; PULSE 80; RESP 18; TEMP 36.6; O2SAT 94
[2024-06-08 20:00] VITALS: BMI 18.5
[2024-06-08 23:10] VITALS: BP 127/52; PULSE 92; RESP 20; TEMP 36.4; O2SAT 93
[2024-06-08] MEDS: APIXABAN 5 MG TABLET PO (23:13)
[2024-06-08] MEDS: Carvedilol 25 MG Tablet PO (23:13)
[2024-06-08] MEDS: amLODIPine 10 MG Tablet PO (23:14)
[2024-06-08] MEDS: Nystatin Powder 15gm Bottle 1 APPLIC TOPICAL (23:14)
[2024-06-08] MEDS: Atorvastatin Calcium 80 MG Tablet PO (23:14)
[2024-06-08 23:37] LABS: Bedside Glucose 135 mg/dL (74-106)
[2024-06-09] VITALS (7 sets, daily range): BP systolic 106–146; BP diastolic 50–71; PULSE 74–101; RESP 17–20; TEMP 36.4–37.1; O2SAT 85–96; BMI 39.6
[2024-06-09] MEDS: Piperacil/Tazobactam 3.375 GM in 0.9% Normal Saline (50mL MB+) 50 ML IV (05:51)
--- NOTE | 2024-06-09 06:17 | RAD_ITS ---
STUDY: X-RAY CHEST REASON FOR EXAM: Female, 68 years old patient with hypoxia with expiratory wheezes. TECHNIQUE: Two AP portable views of the chest. COMPARISON: May 14, 2024. FINDINGS: There are prominent vascular markings both lungs. Lungs are hyperexpanded. There is no demonstrated pleural abnormality. There is moderate cardiac enlargement. Normal mediastinum and joselin. There is prominence of the pulmonary hilar arteries with peripheral pulmonary vascular congestion. There is atherosclerotic calcification of the aortic arch with tortuosity. There are diffuse degenerative changes of the visualized thoracic spine. Normal visualized ribs, clavicles, and shoulders. Bones appear osteopenic. There is no demonstrated abnormality of the visualized soft tissue structures of the upper abdomen. RAD/Chest 1 View (Portable) IMPRESSION: Cardiomegaly and mild pulmonary vascular congestion. Electronically Signed: Rubi Bhandari MD at 8:09 EST ,
[2024-06-09 07:14] LABS: Bedside Glucose 117 mg/dL (74-106)
[2024-06-09 07:21] LABS: Absolute Lymphocyte Count 1.35 X10^3/uL (0.83-4.51); Absolute Neutrophil Count 4.6 X10^3/uL (2.0-7.7); Basophil# 0.05 X10^3/uL; Basophil% 0.8 % (0-1); Eosinophil# 0.13 X10^3/uL; Hematocrit 37.3 % (37-47); Hemoglobin 11.2 g/dL (12.0-15.0); Lymphocyte # 1.35 X10^3/ul (0.83-4.51); Lymphocyte % 20.3 % (19-41); Mean Corpuscular Hgb 23.5 pg (27.0-32.0); Mean Corpuscular Volume 78.2 fL (81-99); Mean Platelet Vol. 8.6 fl (6.2-12.0); Monocyte% 7.5 % (0-10); NRBC Flagged by Analyzer 0 % (0-5); Neutrophil % 68.9 % (47-70); Platelet Count 237 K/mm3 (150-450); RBC Distribution Width CV 19.4 % (11.6-14.6); RBC Distribution Width SD 52.9 fl (35.1-43.9); Red Blood Count 4.77 M/mm3 (4.2-5.4); White Blood Count 6.7 K/mm3 (4.4-11.0)
[2024-06-09 07:46] LABS: International Normalized Ratio 1.2; Prothrombin Time (Protime)PT. 15.3 SECONDS (11.7-14.9)
[2024-06-09 08:22] LABS: ALB/GLOB Ratio 0.6 RATIO (0.9-2.4); AST(SGOT) 15 U/L (15-37); Alanine Aminotransfer ALT/SGPT 15 U/L (13-56); Albumin, Serum 2.7 g/dL (3.2-5.0); Alkaline Phosphatase 101 U/L (45-117); Anion Gap 4 (5-15); BUN 15 mg/dL (7-18); BUN/Creat Ratio 12.9 RATIO (10-20); Bilirubin, Direct 0.11 mg/dL (0.00-0.30); Calcium,Total 9.8 mg/dL (8.5-10.1); Chloride 108 mmol/L (98-107); Creatinine, Serum 1.16 mg/dL (0.55-1.02); EST Glomerular Filtration Rate 49 mL/min (>60); Est Glom Filt Rate - Afr Amer 60 mL/min (>60); Estimated Creatinine Clearance 39.99 ml/min; Globulin 4.2 g/dL (2.2-4.2); Glucose 108 mg/dL (74-106); Magnesium 1.7 mg/dL (1.6-2.6); Phosphorus 3.1 mg/dL (2.5-4.9); Potassium 5.9 mmol/L (3.5-5.1); Protein, Total 6.9 g/dL (6.4-8.2); Sodium Level 136 mmol/L (136-145)
[2024-06-09] MEDS: Insulin Glargine-YFGN 100 UNIT/ML Pen 15 UNIT SC (09:35)
[2024-06-09] MEDS: Pioglitazone Hydrochloride 15 MG Tablet PO (09:36)
[2024-06-09] MEDS: APIXABAN 5 MG TABLET PO ×2 (09:36→23:16)
[2024-06-09] MEDS: Carvedilol 25 MG Tablet PO ×2 (09:36→23:15)
[2024-06-09] MEDS: Lisinopril 40 MG Tablet PO (09:36)
[2024-06-09] MEDS: Gabapentin 600 MG Tablet PO (09:36)
[2024-06-09] MEDS: Pantoprazole Sodium 20 MG Tablet PO (09:36)
[2024-06-09] MEDS: Nystatin Powder 15gm Bottle 1 APPLIC TOPICAL (09:39)
--- NOTE | 2024-06-09 11:31 | CASEMGMT ---
Addendum entered by Ira Holguin 06/09/24 11:56: [facility][phone]). TC to Kera and left message with update on pt status and plans at this time. Original Note: RN RICHA Readmission Note Previous Admission: 05/14/24-05/19/24 Diagnosis: intractable N/V, hypoxia DC Disposition: Home Current Admission: Admitted 06/08/24 Current Diagnosis: UTI Pt admitted on index admission with above dx. Pt was noted to have ESBL in urine and treated with nitrofurantoin. Pt had an EGD that was unremarkable for heme + stools. Pt N/V was thought to be from SBO but this was ruled out. Pt was dc'd home with attempt to obtain HHC from [facility] but was declined as it was not felt pt had a skilled need. Pt represented with burning with urination. Per ER records pt saw PCP on Sunday and was started on bactrim. Pt states she did not see her PCP on Sunday but will on the of this month. Noted this RN RICHA spoke with pt for a f/u tc and pt did state she had the appt on Sunday as well. Pt states she has been taking her meds as ordered and she is indep in her med administration. Pt lives alone, uses FWW and does not wear oxygen. Pt has oxygen on currently in room. Pt reports she does receive MOW but does not have a medic alert as stated in previous notes. Pt does have aides who see her on Sun and Sunday from 12:30-2:30 and states this is going well. Pt states her hernia surgery is not scheduled at this time but will be upcoming. Pt denies any homegoing needs. Pt has not been eval'd by therapy and ID is consulted. AYE CHAUDHRY to follow for homegoing needs at this time. DC Plan: TBD pending therapy evals and rec from ID. Pt Goal: Return home with aide services.
[2024-06-09 11:41] LABS: Hemoglobin A1c 7.5 % (3.8-5.6)
[2024-06-09 12:04] LABS: Bedside Glucose 129 mg/dL (74-106)
--- NOTE | 2024-06-09 13:48 | CON.PCM.ID_ITS ---
Assessment & Plan Assessment/Plan (1) ESBL (extended spectrum beta-lactamase) producing bacteria infection: PLAN: Recurrent esbl ecoli pyelonephritis. On macrobid then bactrim as outpt. U/s shows complex cystic structure on R kidney. Recommend urology eval. Change zosyn to anderson for more reliable esbl coverage. Will follow, thank you (2) Uncontrolled diabetes mellitus: HPI Consult Data Date of Consult: 06/09/24 HPI Narrative Reason for Consultation: esbl infection HPI Narrative: ZOIE DE LA PAZ, is a 68 F with h/o DM, afib, recent admit 05/14 with esbl uti, discharged on macrobid. PCP changed her to bactrim as outpt due to ongoing symptoms. Due to worsening dysuria, B flank pain, n/v, fatigue, she came to ED 06/08, admitted on zosyn, feeling a little better. Full ROS performed and neg except as noted above. [facility] Medical History History of ESBL E. coli infection Wears glasses Former smoker Obesity Ambulates with cane Stroke/cerebrovascular accident Difficulty in walking Poor historian Recurrent incisional hernia with incarceration Incarcerated ventral hernia Obstructive sleep apnea Atrial fibrillation Intraventricular hemorrhage Embolic stroke GERD (gastroesophageal reflux disease) Obesity (BMI 30-39.9) Hyperlipidemia Hypertension Diabetes mellitus Home Medications ?Medication ?Instructions ?Recorded ?Last Taken ?Type omeprazole 20 mg capsule,delayed 20 mg PO DAILY GERd 05/29/14 06/08/24 History release amlodipine 10 mg tablet (Norvasc) 10 mg PO QHS HTN 10/04/16 06/07/24 History apixaban 5 mg tablet (Eliquis) 5 mg PO BID blood thinner 10/04/16 06/08/24 History atorvastatin 80 mg tablet 80 mg PO QHS 10/25/16 06/07/24 Rx lisinopril 40 mg tablet 40 mg PO DAILY HTN 10/25/16 06/08/24 Rx pioglitazone 15 mg tablet 15 mg PO DAILY DM #30 tabs 10/09/22 06/08/24 Rx glipizide 10 mg tablet 10 mg PO BID DM 08/09/23 06/08/24 History dapagliflozin propanediol 10 mg 10 mg PO QDAY 01/01/24 06/08/24 History tablet (Farxiga) diphenoxylate-atropine 2.5 1 tab PO Q8H PRN diarrhea 01/01/24 Unknown History mg-0.025 mg tablet gabapentin 600 mg tablet 600 mg PO QDAY 01/01/24 06/08/24 History metformin 500 mg tablet 500 mg PO BID DM 01/01/24 06/08/24 History dulaglutide 4.5 mg/0.5 mL 4.5 mg subcut QWEEK DM 05/14/24 06/08/24 History subcutaneous pen injector (Trulicity) insulin glargine 100 unit/mL (3 15 unit subcut DAILY 05/14/24 06/08/24 History mL) subcutaneous pen (Lantus Solostar U-100 Insulin) multivitamin with folic acid 400 1 tab PO DAILY 05/14/24 06/08/24 History mcg tablet (Daily-Levon (with folic acid)) carvedilol 25 mg tablet 25 mg PO BID #60 tabs 05/19/24 06/08/24 Rx cholecalciferol (vitamin D3) 50 50 mcg PO DAILY 06/08/24 06/08/24 History mcg (2,000 unit) capsule furosemide 40 mg tablet 40 mg PO DAILY 06/08/24 Unknown History nystatin 100,000 unit/gram topical 1 applic topical BID 06/08/24 06/08/24 History powder sulfamethoxazole 800 1 tab PO BID 06/08/24 06/08/24 History mg-trimethoprim 160 mg tablet Allergy/AdvReac Type Severity Reaction Status Date / Time iodine Allergy Mild Itching Verified 05/14/24 10:01 Penicillins Allergy Mild Itching Verified 05/14/24 10:01 Family History Father CVA (cerebral vascular accident) Mother Diabetes Stomach cancer Other High cholesterol Hypertension Surgical History History of cholecystectomy Hx of colonoscopy Status post debridement History of hysterectomy S/P repair of ventral hernia Social History household members: none Smoking Status: Former smoker alcohol intake: never substance use type: does not use what type of physical activity do you participate in: walking frequency: daily Physical Exam Const alert, oriented x3 and no apparent distress General Appearance: cooperative HEENT normocephalic and head/scalp atraumatic Eyes PERRL and EOMs intact bilaterally Neck supple and No nodes Resp normal air movement and clear to auscultation bilaterally Cardio regular rate and regular rhythm GI soft to palpation, non-tender and non-distended GI Narrative: bilat flank pain Extremity General Extremity: edema Skin no rashes or lesions noted Neuro CN's II-XII intact bilaterally Lab / Micro Data Attestation: I reviewed the patient's lab results. 06/09/24 06:52 06/09/24 06:52 Labs: Laboratory Results - last 24 hr 06/08/24 16:25: WBC 5.7, RBC 5.00, Hgb 11.7 L, Hct 39.5, MCV 79.0 L, MCH 23.4 L, MCHC 29.6 L, RDW Std Deviation 53.5 H, RDW Coeff of Fayb 19.6 H, Plt Count 231, MPV 8.5, Immature Gran % (Auto) 1.200 H, Neut % (Auto) 58.8, Lymph % (Auto) 29.2, [place] % (Auto) 8.7, Eos % (Auto) 1.6, Baso % (Auto) 0.5, Absolute Neuts (auto) 3.4, Absolute Lymphs (auto) 1.67, Nucleated RBC % 0 06/08/24 16:28: Sodium 138, Potassium 5.2 H, Chloride 112 H, Carbon Dioxide 23.0, Anion Gap 3 L, BUN 18, Creatinine 1.10 H, Estim Creat Clear Calc 66.74, Est GFR (MDRD) Af Amer 63, Est GFR (MDRD) Non-Af 52 L, BUN/Creatinine Ratio 16.4, Glucose 94, Calcium 9.3, Total Bilirubin 0.20, AST 14 L, ALT 15, Alkaline Phosphatase 98, Total Protein 6.8, Albumin 2.6 L, Globulin 4.2, Albumin/Globulin Ratio 0.6 L, Lipase 59 06/08/24 23:09: POC Glucose 135 H 06/09/24 06:50: POC Glucose 117 H 06/09/24 06:52: WBC 6.7, RBC 4.77, Hgb 11.2 L, Hct 37.3, MCV 78.2 L, MCH 23.5 L, MCHC 30.0 L, RDW Std Deviation 52.9 H, RDW Coeff of Faby 19.4 H, Plt Count 237, MPV 8.6, Immature Gran % (Auto) 0.500, Neut % (Auto) 68.9, Lymph % (Auto) 20.3, Dougherty % (Auto) 7.5, Eos % (Auto) 2.0, Baso % (Auto) 0.8, Absolute Neuts (auto) 4.6, Absolute Lymphs (auto) 1.35, Nucleated RBC % 0, PT 15.3 H, INR 1.2, Sodium 136, Potassium 5.9 H, Chloride 108 H, Carbon Dioxide 24.0, Anion Gap 4 L, BUN 15, Creatinine 1.16 H, Estim Creat Clear Calc 39.99, Est GFR (MDRD) Af Amer 60, Est GFR (MDRD) Non-Af 49 L, BUN/Creatinine Ratio 12.9, Glucose 108 H, Hemoglobin A1c 7.5 H, Calcium 9.8, Phosphorus 3.1, Magnesium 1.7, Total Bilirubin 0.30, Direct Bilirubin 0.11, AST 15, ALT 15, Alkaline Phosphatase 101, Total Protein 6.9, Albumin 2.7 L, Globulin 4.2, Albumin/Globulin Ratio 0.6 L, TSH 1.040 06/09/24 11:36: POC Glucose 129 H Imaging Radiology Impression Chest X-Ray 06/09/24 06:17 IMPRESSION: Cardiomegaly and mild pulmonary vascular congestion. Electronically Signed: Rubi Bhandari MD at 8:09 EST Reading Location ID and State: [facility] / [place] , Service support , Renal Ultrasound 06/09/24 17:01 IMPRESSION: Complex cystic structure in the lower pole of the right kidney as described. Correlation with enhanced CT scan of the abdomen and pelvis recommended for further evaluation. Bladder wall thickening. Electronically Signed: Yonas Stroud MD at 11:36 EST ,
[2024-06-09] MEDS: 0.9% Saline Lock 10 ML Syringe IV ×2 (14:54→20:02)
[2024-06-09] MEDS: Meropenem 1 GM in 0.9% Normal Saline (100mL MB+) 100 ML IV ×2 (14:54→23:17)
[2024-06-09] MEDS: Insulin Lispro 100 UNIT/ML INSULN.PEN SC ×2 (16:26→23:16)
--- NOTE | 2024-06-09 17:01 | US_ITS ---
STUDY: RENAL ULTRASOUND - COMPLETE REASON FOR EXAM: Female, 68 years old. uti esbl TECHNIQUE: Ultrasound evaluation of the kidneys was performed with real-time and static arroyo-scale imaging. COMPARISON: Comparison is made with prior CT scan of the abdomen dated May 14, 2024. FINDINGS: RIGHT KIDNEY: Normal location of the right kidney, which is normal in size. The right kidney measures 10.6 cm x 6.8 cm x 4.8 cm. There is a normal cortex of the right kidney. The renal cortex measures 1.1 cm. There is a 3.3 cm x 4.4 cm by 4.4 cm complex cystic structure in the lower pole of the right kidney. This is not a simple cyst. Correlation with enhanced CT scan of the abdomen with attention to the kidneys is recommended.. There are no right renal calculi. There is no right hydronephrosis. DISTAL RIGHT URETER: There is non-visualization of the distal right ureter. There is no demonstrated right ureterovesical junction calculus. There is a visualized right ureteral jet. LEFT KIDNEY: Normal location of the left kidney, which is normal in size. The left kidney measures 11 cm x 6.2 cm x 4.6 cm. There is a normal cortex of the left kidney. The renal cortex measures 1.3 cm. There is no left renal mass or cyst. There are no left renal calculi. There is no left hydronephrosis. DISTAL LEFT URETER: There is non-visualization of the distal left ureter. There is no demonstrated left ureterovesical junction calculus. There is a visualized left ureteral jet. BLADDER: The distended urinary bladder has a volume of 122 ml. Bladder wall thickening. There is a normal wall thickness of the distended urinary bladder. There is no demonstrated mass within the urinary bladder. There are no demonstrated bladder calculi. US/Kidney and Bladder IMPRESSION: Complex cystic structure in the lower pole of the right kidney as described. Correlation with enhanced CT scan of the abdomen and pelvis recommended for further evaluation. Bladder wall thickening. Electronically Signed: Yonas Stroud MD at 11:36 EST ,
[2024-06-09 17:10] LABS: Bedside Glucose 175 mg/dL (74-106)
--- NOTE | 2024-06-09 17:14 | PN.HOSP_ITS ---
Reason for Visit Reason for Visit: Diagnoses Bacterial infection, unspecified (06/08/24) Extended spectrum beta lactamase (ESBL) resistance (06/08/24) Subjective Subjective Patient was seen and examined today, she has ESBL E. coli in her urine culture. I had infectious diseases see the patient today. Infectious diseases recommended urology consultation. Antibiotic coverage was changed from Zosyn to meropenem. Objective Data Objective Data Vital Signs: Vital Signs Temp Pulse Resp BP Pulse Ox O2 Del Method O2 Flow Rate 97.6 F L 74 18 106/53 L 94 Nasal Cannula 2 06/09/24 14:34 06/09/24 14:34 06/09/24 14:34 06/09/24 14:34 06/09/24 14:34 06/09/24 14:34 06/09/24 14:34 Oxygen Flow Rate (L/min) 2 Oxygen Delivery Method Nasal Cannula Weight: 55.338 kg Body Mass Index (BMI) 18.5 Intake & Output: Intake and Output for Last 24 Hours 06/07/24 06/08/24 06/09/24 23:59 23:59 23:59 Intake Total 170 / 170 160 / 160 Output Total 150 / 150 850 / 850 Balance -690 / -690 Lab / Micro Data 06/09/24 06:52 06/09/24 06:52 Labs: Laboratory Results - last 24 hr 06/08/24 23:09: POC Glucose 135 H 06/09/24 06:50: POC Glucose 117 H 06/09/24 06:52: WBC 6.7, RBC 4.77, Hgb 11.2 L, Hct 37.3, MCV 78.2 L, MCH 23.5 L, MCHC 30.0 L, RDW Std Deviation 52.9 H, RDW Coeff of Faby 19.4 H, Plt Count 237, MPV 8.6, Immature Gran % (Auto) 0.500, Neut % (Auto) 68.9, Lymph % (Auto) 20.3, [place] % (Auto) 7.5, Eos % (Auto) 2.0, Baso % (Auto) 0.8, Absolute Neuts (auto) 4.6, Absolute Lymphs (auto) 1.35, Nucleated RBC % 0, PT 15.3 H, INR 1.2, Sodium 136, Potassium 5.9 H, Chloride 108 H, Carbon Dioxide 24.0, Anion Gap 4 L, BUN 15, Creatinine 1.16 H, Estim Creat Clear Calc 39.99, Est GFR (MDRD) Af Amer 60, Est GFR (MDRD) Non-Af 49 L, BUN/Creatinine Ratio 12.9, Glucose 108 H, Hemoglobin A1c 7.5 H, Calcium 9.8, Phosphorus 3.1, Magnesium 1.7, Total Bilirubin 0.30, Direct Bilirubin 0.11, AST 15, ALT 15, Alkaline Phosphatase 101, Total Protein 6.9, Albumin 2.7 L, Globulin 4.2, Albumin/Globulin Ratio 0.6 L, TSH 1.040 06/09/24 11:36: POC Glucose 129 H 06/09/24 16:24: POC Glucose 175 H Radiography Diagnostic Testing: Radiology Impression Chest X-Ray 06/09/24 06:17 IMPRESSION: Cardiomegaly and mild pulmonary vascular congestion. Electronically Signed: Rubi Bhandari MD at 8:09 EST Reading Location ID and State: [facility] / [place] , Service support , Renal Ultrasound 06/09/24 17:01 IMPRESSION: Complex cystic structure in the lower pole of the right kidney as described. Correlation with enhanced CT scan of the abdomen and pelvis recommended for further evaluation. Bladder wall thickening. Electronically Signed: Yonas Stroud MD at 11:36 EST , Physical Exam Const alert, oriented x3 and no apparent distress Constitutional Narrative: Patient is morbidly obese General Appearance: cooperative and well developed Orientation / Consciousness: awake, oriented to person, oriented to place and oriented to time HEENT normocephalic, head/scalp atraumatic and moist oral mucous membranes Eyes PERRL, EOMs intact bilaterally and conjunctivae normal Neck supple, no JVD, thyroid normal and no carotid bruits General: trachea midline Resp normal respiratory effort, no retractions, no use of accessory muscles and clear to auscultation bilaterally Auscultation: Negative for rales, rhonchi or wheezes Cardio regular rate, regular rhythm, S1 normal heart sound, S2 normal heart sound, no murmurs, no rub and no gallops GI normal to inspection, nondistended, normoactive bowel sounds, soft to palpation, non-tender and non-distended Extremity no clubbing, cyanosis or edema Skin no rashes or lesions noted General Skin Exam: no breakdown Neuro oriented x3, CN's II-XII intact bilaterally, moves all extremities, no focal motor deficits and no sensory deficits noted Sensorium / Orientation: awake and alert Speech: speech normal Psych affect normal Assessment & Plan Assessment/Plan (1) Urinary tract infection: PLAN: Plan 1. ESBL E. coli cystitis-again infectious diseases is adjusting her antibiotic coverage, I will contact urology for a consultation regarding her abnormal right kidney as detected by ultrasound. They recommended contrasted CT of the abdomen and pelvis was recommended. #2 type 2 diabetes-patient's blood sugars will be monitored, sliding scale insulin will be administered as needed #3 hyperkalemia-patient's potassium was high this morning, I have written for Kayexalate and written to stop her lisinopril. BMP will be rechecked tonight #4 morbid obesity-complicates care, management, recovery, and prognosis #5 essential hypertension-patient is to remain on her current medications except for her lisinopril, they will be adjusted as needed #6 hyperlipidemia-patient is on atorvastatin Total clinical time spent by myself addressing the patient's medical issues, reviewing all of her data, and collaborating with patient's care team: 35 minutes Charges/Coding Visit Charges Inpatient E&M: 57015 Subs Hosp L2
[2024-06-09] MEDS: Sodium Polystyrene Sulfonate 15 GM/60 ML UDC 30 GM PO (18:16)
[2024-06-09] MEDS: predniSONE 10 MG Tablet 50 MG PO ×2 (18:16→23:18)
[2024-06-09] MEDS: amLODIPine 10 MG Tablet PO (23:15)
[2024-06-09] MEDS: Atorvastatin Calcium 80 MG Tablet PO (23:16)
[2024-06-09 23:27] LABS: Bedside Glucose 164 mg/dL (74-106)
[2024-06-10 00:51] LABS: Anion Gap 4 (5-15); BUN 20 mg/dL (7-18); BUN/Creat Ratio 14.2 RATIO (10-20); Calcium,Total 10.1 mg/dL (8.5-10.1); Chloride 108 mmol/L (98-107); Creatinine, Serum 1.41 mg/dL (0.55-1.02); EST Glomerular Filtration Rate 39 mL/min (>60); Est Glom Filt Rate - Afr Amer 48 mL/min (>60); Estimated Creatinine Clearance 50.88 ml/min; Glucose 177 mg/dL (74-106); Potassium 6.7 mmol/L (3.5-5.1); Sodium Level 136 mmol/L (136-145)
[2024-06-10] MEDS: Sodium Polystyrene Sulfonate 15 GM/60 ML UDC PO (01:27)
[2024-06-10 01:54] VITALS: PULSE 100
[2024-06-10] MEDS: DiphenhydrAMINE 25 MG Capsule 50 MG PO (05:58)
[2024-06-10] MEDS: predniSONE 10 MG Tablet 50 MG PO (05:58)
[2024-06-10 06:02] VITALS: BP 128/63; PULSE 105; RESP 17; TEMP 36.6; O2SAT 94
[2024-06-10] MEDS: Insulin Lispro 100 UNIT/ML INSULN.PEN SC ×4 (06:10→22:37)
[2024-06-10 06:42] LABS: Bedside Glucose 220 mg/dL (74-106)
[2024-06-10] MEDS: 0.9% Saline Lock 10 ML Syringe IV ×2 (06:59→22:45)
--- NOTE | 2024-06-10 07:00 | CT_ITS ---
INDICATION: Abnormal kidney ultrasound attention right kidney EXAMINATION: CT ABDOMEN AND PELVIS WITH AND WITHOUT CONTRAST - CT Abdomen And Pelvis WO/W Contrast Injection TECHNIQUE: Helically acquired images were obtained of the abdomen and pelvis both before and after IV contrast. The protocol utilizes one or more of the following dose reduction techniques: automated exposure control, adjustment of mA and/or kV according to patient size,and/or use of iterative reconstruction technique. IV Contrast dosage and agent: 100 cc of Isovue-370 Oral contrast: None. RADIATION DOSAGE (If Supplied By Facility): CTDIvol = ( 26.90 ) mGy, DLP = ( 7354.29 ) mGycm COMPARISON: Prior studies dated: 05/14/2024, 08/03/2020 and 12/31/2015 FINDINGS: LOWER CHEST: Chronic changes in right lung base. No cardiomegaly or pericardial effusion. Coronary calcifications. LIVER: Homogeneous. No focal mass. GALLBLADDER AND BILIARY TREE: No calcified gallstones. No gallbladder distension or wall edema. No intra- or extrahepatic biliary ductal dilation. PANCREAS: No focal cystic or solid mass. SPLEEN: Normal size without focal cystic or solid mass. ADRENAL GLANDS: No nodules. KIDNEYS AND URETERS: 4.5 cm hypodense well-circumscribed nodule in the lower pole of the right kidney gradually increased in size since previous exam from 2016. No hydronephrosis. PERITONEUM: No ascites or free air. No other fluid collection. BOWEL: The appendix is not identified. No stomach or bowel distension. Surgical anastomosis sutures in the sigmoid colon. No evidence of acute diverticulitis. Fecal retention. LYMPH NODES: No enlarged mesenteric or retroperitoneal lymph nodes. VESSELS: Aorta is non-dilated. URINARY BLADDER: Unremarkable. REPRODUCTIVE ORGANS: No pelvic mass. Absent uterus consistent with previous hysterectomy. ABDOMINAL WALL: No discrete abdominal or pelvic wall hernia. BONES: No lytic or blastic abnormality. CT/CT Abd/Pelvis W/WO Contrast IMPRESSION: 1. Essentially stable right renal lesion likely due to hyperdense cyst. Further follow-up exam in one year is recommended. 2. Otherwise no focal acute inflammatory process. Normal right kidney Electronically Signed: Wild Bateman MD at 8:42 EST ,
--- NOTE | 2024-06-10 07:19 | NURSING ---
pt off unit for testing
[2024-06-10] MEDS: Sodium Polystyrene Sulfonate 15 GM/60 ML UDC 30 GM PO (07:59)
[2024-06-10 08:06] LABS: Anion Gap 5 (5-15); BUN 20 mg/dL (7-18); BUN/Creat Ratio 15.5 RATIO (10-20); Calcium,Total 10.3 mg/dL (8.5-10.1); Chloride 109 mmol/L (98-107); Creatinine, Serum 1.29 mg/dL (0.55-1.02); EST Glomerular Filtration Rate 44 mL/min (>60); Est Glom Filt Rate - Afr Amer 53 mL/min (>60); Estimated Creatinine Clearance 55.61 ml/min; Glucose 206 mg/dL (74-106); Potassium 5.9 mmol/L (3.5-5.1); Sodium Level 135 mmol/L (136-145)
--- NOTE | 2024-06-10 08:07 | NURSING ---
pt just returned from radiology
[2024-06-10] MEDS: Menthol/Lanolin/Calamine/Znox 113 GM Tube 1 APPLIC TOPICAL ×2 (10:02→22:43)
[2024-06-10] MEDS: Carvedilol 25 MG Tablet PO ×2 (10:03→22:36)
[2024-06-10] MEDS: APIXABAN 5 MG TABLET PO ×2 (10:03→22:37)
[2024-06-10] MEDS: Gabapentin 600 MG Tablet PO (10:03)
[2024-06-10] MEDS: Nystatin Powder 15gm Bottle 1 APPLIC TOPICAL ×2 (10:04→22:43)
[2024-06-10] MEDS: Pantoprazole Sodium 20 MG Tablet PO (10:04)
[2024-06-10] MEDS: Insulin Glargine-YFGN 100 UNIT/ML Pen 15 UNIT SC (10:04)
--- NOTE | 2024-06-10 10:05 | NURSING ---
mauricio not on unit for pt administration
--- NOTE | 2024-06-10 10:22 | NURSING ---
invanz 1000 dose not on unit for pt administration
--- NOTE | 2024-06-10 10:48 | PN.ID_ITS ---
Physical Exam Narrative Feeling better, no fever, no abd pain, no n/v/d. Const alert and no apparent distress General Appearance: cooperative Resp normal air movement and clear to auscultation bilaterally Cardio regular rate and regular rhythm GI soft to palpation, non-tender and non-distended Skin no rashes or lesions noted ID ID: Route of nutrition/ use of supplements: [] Nutritional Intake: [] IV Site: [] Koo Catheter: [] Assessment & Plan Assessment/Plan (1) ESBL (extended spectrum beta-lactamase) producing bacteria infection: PLAN: Recurrent esbl ecoli pyelonephritis. On macrobid then bactrim as outpt. U/s shows complex cystic structure on R kidney. CT shows slowly growing renal cyst. Ok for home with midline and 9 more days iv erta once daily. 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
[2024-06-10] MEDS: Ertapenem Sod 1 GM in 0.9% Normal Saline (50mL MB+) 50 ML IV (11:00)
--- NOTE | 2024-06-10 11:24 | CASEMGMT ---
AYE CHAUDHRY into pt room, pt resting. AYE CHAUDHRY discussed with pt doctor is ordering IV antibiotics. Reviewed with pt how it went with therapy. Pt reports she has a hard time navigating at home. States she just lays in bed all day watching tv. Discussed with pt the option of going to a SNF to receive IV antibiotics and therapy. Pt was opposed to SNF. Discussed HHC services, pt states she is not able to administer IV antibiotics to herself and would like HHC to come out every day to give antibiotics. Informed pt, SN only comes out a couple times a week. Discussed OP infusion center, pt states does not have transportation to hospital on the weekends and would not be able to come in. Pt asked AYE CHAUDHRY to come out to her house every day to administer, informed pt this AYE CHAUDHRY is not able to do that. Pt began crying, states she does not want to lose her house. AYE CHAUDHRY explained to pt SNF would be short term and would be covered by insurance. AYE CHAUDHRY asked pt why she felt she is going to lose her house. Pt started crying again and asked AYE CHAUDHRY to leave. RN and [employer] Gatherer into room, AYE CHAUDHRY informed pt will come back later to discuss options again.
[2024-06-10 11:30] LABS: Bedside Glucose 283 mg/dL (74-106)
[2024-06-10 11:44] LABS: Anion Gap 6 (5-15); BUN 21 mg/dL (7-18); BUN/Creat Ratio 18.6 RATIO (10-20); Chloride 108 mmol/L (98-107); Creatinine, Serum 1.13 mg/dL (0.55-1.02); EST Glomerular Filtration Rate 51 mL/min (>60); Est Glom Filt Rate - Afr Amer 61 mL/min (>60); Estimated Creatinine Clearance 63.48 ml/min; Glucose 314 mg/dL (74-106); Potassium 5.4 mmol/L (3.5-5.1); Sodium Level 135 mmol/L (136-145)
--- NOTE | 2024-06-10 13:15 | CASEMGMT ---
AYE CHAUDHRY into pt room, pt to have IV atb upon dc. Pt lying in bed, discussed how she has done with therapy. Pt states she wants to go home to do the IV atb. She states she can do them herself. Discussed other options of people who can help and pt states that her friend Kailey gives a shot to her nightly and thinks she would do it. Discussed having HHC if pt friend is able to come daily for the duration of atb. Pt agreeable to [facility]. Pt gave Kailey's phone number as [phone]. TC to Kailey, she states she does not feel comfortable with giving IV atb even with education. She states she is just getting over a respiratory infection and she does not feel she should be around pt. AYE CHAUDHRY into pt room to make pt aware. Pt tearful. She states she just wants to go home. Discussed a potential SNF where she could receive her IV atb, therapy and meals. Pt asks if she can stay at [facility]. She is aware that there may be potential to go to another floor on the hospital to have this but not in her current room. Pt asks, are they nice? Pt then agreed to [facility] SNF at this time for s/t IV atb and therapy. Updated SW.
--- NOTE | 2024-06-10 13:55 | CASEMGMT ---
Social Work- Pt is requesting a referral to TCU. SNF list declined d/t knowing preferred facility. SW completed referral to TCU. SW remains available to follow. ARELIS Muhammad
[2024-06-10 14:00] VITALS: BP 121/60; PULSE 117; RESP 18; TEMP 36.7; O2SAT 94
[2024-06-10 15:00] VITALS: PULSE 116
[2024-06-10 17:25] LABS: Bedside Glucose 282 mg/dL (74-106)
--- NOTE | 2024-06-10 19:31 | CON.PCM_ITS ---
Assessment & Plan Assessment/Plan (1) Urinary tract infection: PLAN: Continue management per infectious disease Follow-up in the office for full evaluation including cystoscopy and pelvic examination After discharge will need to focus on timed voiding, bowel management, control of diabetes and can discuss infection prevention with things like d-mannose, vaginal estrogen cream etc. (2) Elevated serum creatinine: PLAN: No evidence of hydronephrosis further management from urology standpoint (3) Uncontrolled diabetes mellitus: (4) Complex renal cyst: PLAN: Slowly growing, no evidence of malignancy at this time with recommendations per radiology for repeat imaging in 12 months PLAN: Plan Follow-up after discharge for full evaluation as discussed. Patient is aware HPI Consult Data Date of Consult: 06/10/24 HPI Narrative Reason for Consultation: Complex renal cyst, urinary tract infection HPI Narrative: ZOIE DE LA PAZ, is a 68 F who is admitted for a complex urinary tract infection and is being managed with intravenous antibiotics. She reports that she is feeling better, no longer having dysuria. She recalls having only 1 urinary tract infection within the last year and no history of kidney stones. She denies a history of gross hematuria. She does not know how often she is voiding throughout the day but she gets up frequently at night. She admits to significant urge incontinence and wears depends at home. She is focused on leaving the hospital and desperately wants to go home, is tearful and repeatedly asking to be discharged. She has never been evaluated by a urologist that she can recall. [facility] Medical History (Updated 06/10/24 @ 19:[address] Jeniffer Thomson MD) Complex renal cyst History of ESBL E. coli infection Wears glasses Former smoker Obesity Ambulates with cane Stroke/cerebrovascular accident Difficulty in walking Poor historian Recurrent incisional hernia with incarceration Incarcerated ventral hernia Obstructive sleep apnea Atrial fibrillation Intraventricular hemorrhage Embolic stroke GERD (gastroesophageal reflux disease) Obesity (BMI 30-39.9) Hyperlipidemia Hypertension Diabetes mellitus Home Medications ?Medication ?Instructions ?Recorded ?Last Taken ?Type omeprazole 20 mg capsule,delayed 20 mg PO DAILY GERd 05/29/14 06/08/24 History release amlodipine 10 mg tablet (Norvasc) 10 mg PO QHS HTN 10/04/16 06/07/24 History apixaban 5 mg tablet (Eliquis) 5 mg PO BID blood thinner 10/04/16 06/08/24 History atorvastatin 80 mg tablet 80 mg PO QHS 10/25/16 06/07/24 Rx lisinopril 40 mg tablet 40 mg PO DAILY HTN 10/25/16 06/08/24 Rx pioglitazone 15 mg tablet 15 mg PO DAILY DM #30 tabs 10/09/22 06/08/24 Rx glipizide 10 mg tablet 10 mg PO BID DM 08/09/23 06/08/24 History dapagliflozin propanediol 10 mg 10 mg PO QDAY 01/01/24 06/08/24 History tablet (Farxiga) diphenoxylate-atropine 2.5 1 tab PO Q8H PRN diarrhea 01/01/24 Unknown History mg-0.025 mg tablet gabapentin 600 mg tablet 600 mg PO QDAY 01/01/24 06/08/24 History metformin 500 mg tablet 500 mg PO BID DM 01/01/24 06/08/24 History dulaglutide 4.5 mg/0.5 mL 4.5 mg subcut QWEEK DM 05/14/24 06/08/24 History subcutaneous pen injector (Trulicity) insulin glargine 100 unit/mL (3 15 unit subcut DAILY 05/14/24 06/08/24 History mL) subcutaneous pen (Lantus Solostar U-100 Insulin) multivitamin with folic acid 400 1 tab PO DAILY 05/14/24 06/08/24 History mcg tablet (Daily-Levon (with folic acid)) carvedilol 25 mg tablet 25 mg PO BID #60 tabs 05/19/24 06/08/24 Rx cholecalciferol (vitamin D3) 50 50 mcg PO DAILY 06/08/24 06/08/24 History mcg (2,000 unit) capsule furosemide 40 mg tablet 40 mg PO DAILY 06/08/24 Unknown History nystatin 100,000 unit/gram topical 1 applic topical BID 06/08/24 06/08/24 History powder sulfamethoxazole 800 1 tab PO BID 06/08/24 06/08/24 History mg-trimethoprim 160 mg tablet ertapenem 1 gram solution for 1 g IV DAILY 10 days #9 ea 06/10/24 Unknown Rx injection Allergy/AdvReac Type Severity Reaction Status Date / Time iodine Allergy Mild Itching Verified 05/14/24 10:01 Penicillins Allergy Mild Itching Verified 10/16/24 10:01 Family History Father CVA (cerebral vascular accident) Mother Diabetes Stomach cancer Other High cholesterol Hypertension Surgical History History of cholecystectomy Hx of colonoscopy Status post debridement History of hysterectomy S/P repair of ventral hernia Social History household members: none Smoking Status: Former smoker alcohol intake: never substance use type: does not use what type of physical activity do you participate in: walking frequency: daily ROS Constitutional Constitutional: Reports fatigue; Denies chills or fever(s) Eyes Eyes: Reports systems reviewed and no addt'l complaints, except as documented ENT HEENT: Reports systems reviewed and no addt'l complaints, except as documented Cardiovascular Cardiovascular: Denies chest pain or dyspnea Respiratory/Chest Respiratory/Chest: Reports systems reviewed and no addt'l complaints, except as documented Gastrointestinal Gastrointestinal: Denies abdominal pain, nausea or vomiting Genitourinary Genitourinary: Reports nocturia, urinary incontinence and urinary urgency; Denies burning urination, dysuria, hematuria or urinary frequency Musculoskeletal Musculoskeletal: Denies back pain Integumentary Integumentary: Reports systems reviewed and no addt'l complaints, except as documented Neurologic Neurologic: Reports systems reviewed and no addt'l complaints, except as documented Psychiatric Psychiatric: Reports systems reviewed and no addt'l complaints, except as documented Endocrine Endocrinology: Reports systems reviewed and no addt'l complaints, except as documented Hematologic/Lymphatic Hematologic/Lymphatic: Reports systems reviewed and no addt'l complaints, except as documented Allergic/Immunologic Allergic/Immunologic: Reports systems reviewed and no addt'l complaints, except as documented Physical Exam Narrative She is tearful, requesting multiple times to be discharged home. She reports that she is feeling much improved upon admission and is no longer having pain with urination. She denies abdominal pain, back pain. She does not like the intravenous access for IV antibiotics. Const alert and oriented x3 General Appearance: anxious HEENT normocephalic, head/scalp atraumatic, external ears normal, external nose normal and moist oral mucous membranes Eyes General Eye: normal appearance of both eyes Neck General: normal visual inspection and trachea midline Chest inspection of chest normal Chest: symmetrical chest wall rise Resp normal respiratory effort, normal air movement and no retractions Cardio regular rate GI soft to palpation, non-tender and non-distended Bladder / Kidney Exam: No catheter in place Back/Spine no CVA tenderness Extremity normal to inspection Skin no jaundice, no petechiae and no mottling Neuro oriented x3, CN's II-XII intact bilaterally and moves all extremities Psych mental status grossly normal and thought process normal Lab / Micro Data 06/09/24 06:52 06/10/24 11:06 Labs: Laboratory Results - last 24 hr 06/09/24 23:10: POC Glucose 164 H 06/09/24 23:30: Sodium 136, Potassium 6.7 H*, Chloride 108 H, Carbon Dioxide 24.0, Anion Gap 4 L, BUN 20 H, Creatinine 1.41 H, Estim Creat Clear Calc 50.88, Est GFR (MDRD) Af Amer 48 L, Est GFR (MDRD) Non-Af 39 L, BUN/Creatinine Ratio 14.2, Glucose 177 H, Calcium 10.1 06/10/24 06:08: POC Glucose 220 H 06/10/24 07:04: Sodium 135 L, Potassium 5.9 H, Chloride 109 H, Carbon Dioxide 21.0, Anion Gap 5, BUN 20 H, Creatinine 1.29 H, Estim Creat Clear Calc 55.61, E st GFR (MDRD) Af Amer 53 L, Est GFR (MDRD) Non-Af 44 L, BUN/Creatinine Ratio 15.5, Glucose 206 H, Calcium 10.3 H 06/10/24 11:03: POC Glucose 283 H 06/10/24 11:06: Sodium 135 L, Potassium 5.4 H, Chloride 108 H, Carbon Dioxide 21.0, Anion Gap 6, BUN 21 H, Creatinine 1.13 H, Estim Creat Clear Calc 63.48, Est GFR (MDRD) Af Amer 61, Est GFR (MDRD) Non-Af 51 L, BUN/Creatinine Ratio 18.6, Glucose 314 H, Calcium 10.0 06/10/24 17:01: POC Glucose 282 H Imaging Radiology Impression Abdomen/Pelvis CT 06/10/24 07:00 IMPRESSION: 1. Essentially stable right renal lesion likely due to hyperdense cyst. Further follow-up exam in one year is recommended. 2. Otherwise no focal acute inflammatory process. Normal right kidney Electronically Signed: Wild Bateman MD at 8:42 EST ,
[2024-06-10 20:57] VITALS: PULSE 112
[2024-06-10 22:12] VITALS: BP 116/99; PULSE 109; RESP 17; TEMP 36.9; O2SAT 92
[2024-06-10] MEDS: Atorvastatin Calcium 80 MG Tablet PO (22:37)
[2024-06-10] MEDS: amLODIPine 10 MG Tablet PO (22:37)
[2024-06-10 23:12] LABS: Bedside Glucose 276 mg/dL (74-106)
[2024-06-11] VITALS (7 sets, daily range): BP systolic 101–126; BP diastolic 43–64; PULSE 92–100; RESP 17–18; TEMP 36.5–36.9; O2SAT 89–98
[2024-06-11] MEDS: 0.9% Saline Lock 10 ML Syringe IV (00:35)
[2024-06-11] MEDS: Insulin Lispro 100 UNIT/ML INSULN.PEN SC ×3 (06:45→16:22)
[2024-06-11 07:44] LABS: Anion Gap 7 (5-15); BUN 24 mg/dL (7-18); BUN/Creat Ratio 23.8 RATIO (10-20); Calcium,Total 10.1 mg/dL (8.5-10.1); Chloride 108 mmol/L (98-107); Creatinine, Serum 1.01 mg/dL (0.55-1.02); EST Glomerular Filtration Rate 58 mL/min (>60); Est Glom Filt Rate - Afr Amer 70 mL/min (>60); Estimated Creatinine Clearance 71.02 ml/min; Glucose 178 mg/dL (74-106); Potassium 4.5 mmol/L (3.5-5.1); Sodium Level 138 mmol/L (136-145)
[2024-06-11 08:41] LABS: Bedside Glucose 158 mg/dL (74-106)
[2024-06-11] MEDS: APIXABAN 5 MG TABLET PO (09:24)
[2024-06-11] MEDS: Pantoprazole Sodium 20 MG Tablet PO (09:24)
[2024-06-11] MEDS: Carvedilol 25 MG Tablet PO (09:24)
[2024-06-11] MEDS: Pioglitazone Hydrochloride 15 MG Tablet PO (09:24)
[2024-06-11] MEDS: Insulin Glargine-YFGN 100 UNIT/ML Pen 15 UNIT SC (09:24)
[2024-06-11] MEDS: Menthol/Lanolin/Calamine/Znox 113 GM Tube 1 APPLIC TOPICAL (09:25)
[2024-06-11] MEDS: Nystatin Powder 15gm Bottle 1 APPLIC TOPICAL (09:26)
[2024-06-11] MEDS: Gabapentin 600 MG Tablet PO (09:26)
--- NOTE | 2024-06-11 10:53 | CASEMGMT ---
Social Work- SW met with pt to advise of TCU approval and precert approval. Pt is reporting that she wants to go home and is tearful. Pt is unable to verbalize and communicate why she is teary. Pt reports that she lives alone and is not able to explain if she is feeling sad or other emotions. Pt presents with low cognitive understanding of emotions. Pt did not recall talking to RNCM about TCU. SW provided education on IV needs and pt lack of help, as well as needs for therapy. Pt reported that she would go. SW questioned if pt could have someone bring her Trulicity in per request of TCU. Pt reports that she does not take Trulicity. When SW explained it is a diabetic medication, pt reports she injects it daily. SW shared that it would be a weekly injection. Pt reports she believes she takes it on Sundays and that she believes she had the injection prior to admission at [facility]. Pt reports that no one is allowed in her home to get the medication. Pt is agreeable to not having injection this week or substituting another medication. SW passed this information to TCU. Plan: TCU; when medically ready ARELIS Muhammad
[2024-06-11] MEDS: Ertapenem Sod 1 GM in 0.9% Normal Saline (50mL MB+) 50 ML IV (11:06)
[2024-06-11 11:54] LABS: Bedside Glucose 246 mg/dL (74-106)
--- NOTE | 2024-06-11 14:44 | TREXTCAR_ITS ---
Diet Diet Order/Speech Therapy: 06/08/24 18:46 Diet: Consistent Carb - Calorie Controlled Food consistency:: Regular Liquid Consistency:: Regular/Thin Dietary Modifications:: Cardiac / Heart Healthy Type of Dietary Supplement:: Glucerna Shake Diet Comments: 4 oz glucerna shake tid w/ meals How many daily calories?: 1600 calorie Routine Orders/Code Status Routine Lab Work: - (Fingerstick blood sugars AC nightly, sliding scale Humalog subcu per blood sugar result: 200-250: 5 units, 251-300: 8 units, 301-350: 12 units, 351-400: 15 units) Code Status: Full Code Therapies Weight Bearing: Full weight bearing Physical Therapy: Eval and Treat Occupational Therapy: Eval and Treat Problem/Diagnosis (1) Urinary tract infection: Status: Acute Code(s): N39.0 - Urinary tract infection, site not specified (2) Elevated serum creatinine: Status: Acute Code(s): R79.89 - Other specified abnormal findings of blood chemistry (3) Uncontrolled diabetes mellitus: Status: Acute (4) Complex renal cyst: Status: Acute Code(s): N28.1 - Cyst of kidney, acquired Plan 1. ESBL E. coli cystitis- #2 type 2 diabetes-patient's blood sugars will be monitored, sliding scale insulin will be administered as needed #3 hyperkalemia-patient's potassium was high this morning, I have written for Kayexalate and written to stop her lisinopril. BMP will be rechecked tonight #4 morbid obesity-complicates care, management, recovery, and prognosis #5 essential hypertension-patient is to remain on her current medications except for her lisinopril, they will be adjusted as needed #6 hyperlipidemia-patient is on atorvastatin Total clinical time spent by myself addressing the patient's medical issues, reviewing all of her data, and collaborating with patient's care team: 35 minutes Allergies/Procedures Done in Hospital Allergies iodine Allergy (Mild, Verified 05/14/24 10:01) Itching Penicillins Allergy (Mild, Verified 05/14/24 10:01) Itching Procedures: PICC line placement Type of Care/Length of Stay Estimated LOS: Convalescent Care Less Than 30 days Type of Care Needed: Skilled Rehab Potential: Good Prognosis: Good Additional Orders/Day of Discharge H&P will serve as current which was dated: 06/08/24 Day of Discharge: 06/11/24 Dietary and Speech Recommendations Dietitian Recommendations/Changes: Will change diet to 1600 zulma Cardiac to better meet pt est nutritional needs Will change to 4 oz GS at meals instead of 8 oz Please check current wt - suspect error at time of adm. Discharge Plan Admission Admit Date/Time: 06/08/24 17:41 Primary Reason for Your Visit: ESBL E. coli cystitis Attending Provider: Dennis Lazcano Primary Care Provider: Dennis Pelayo Consulting Providers: Cherri Giles; Abel Don; Jeniffer Thomson Discharge Orders/Prescriptions Prescriptions: New ertapenem 1 gram recon soln 1 g IV DAILY 10 Days Qty: 9 0RF Rx Instructions: dx: esbl infection. Stop date 06/20/24. weekly bmp, cbc, and LFT; fax to [phone]. Routine midline care per protocol. nystatin [Nyamyc] 100,000 unit/gram Powder 1 applic topical BID Qty: 0 0RF Protocol: *Topical Application Instructions APPLICATION INSTRUCTIONS: affected areas, under breasts & abdomen menthol-zinc oxide [Calmoseptine] 0.44-20.6 % Ointment 1 applic topical BID Qty: 0 0RF Protocol: *Topical Application Instructions APPLICATION INSTRUCTIONS: bilateral buttocks Continued dapagliflozin propanediol [Farxiga] 10 mg tablet 10 mg PO QDAY gabapentin 600 mg tablet 600 mg PO QDAY omeprazole 20 MG capsule 20 mg PO DAILY amlodipine [Norvasc] 10 MG tablet 10 mg PO QHS Eliquis 5 MG tablet 5 mg PO BID atorvastatin 80 MG tablet 80 mg PO QHS 0RF lisinopril 40 MG tablet 40 mg PO DAILY 0RF multivitamin with folic acid [Daily-Levon (with folic acid)] 400 mcg tablet 1 tab PO DAILY insulin glargine [Lantus Solostar U-100 Insulin] 100 unit/mL (3 mL) insulin pen 15 unit subcut DAILY carvedilol 25 mg tablet 25 mg PO BID Qty: 60 0RF Rx Instructions: must administer with a meal/food cholecalciferol (vitamin D3) 50 mcg (2,000 unit) capsule 50 mcg PO DAILY pioglitazone 15 mg tablet 15 mg PO DAILY Qty: 30 3RF Discontinued metformin 500 mg tablet 500 mg PO BID diphenoxylate-atropine 2.5-0.025 mg tablet 1 tab PO Q8H PRN (Reason: diarrhea) glipizide 10 mg tablet 10 mg PO BID Trulicity 4.5 mg/0.5 mL pen injector 4.5 mg subcut QWEEK Patient Comments: sundays furosemide 40 mg tablet 40 mg PO DAILY sulfamethoxazole-trimethoprim 800-160 mg tablet 1 tab PO BID nystatin 100,000 unit/gram powder 1 applic topical BID Referrals / Follow Up: Dennis Pelayo DO [Primary Care Provider] - Disposition Disposition (needs filled in before D/C Order can be placed[facility]
--- NOTE | 2024-06-11 15:00 | PCM.DC.SUM ---
Providers Date of Admission: 06/08/24 Date of Discharge: 06/11/24 Primary Care Physician: Dr. Dennis Pelayo, Consultations 06/09/24 07:56 Consult: Infectious Disease Routine Consulting Provider: Abel Don Reason for Consult: ESBL-? colonization EMERGENT Consult: No Notified: Yes Date Notified: 06/09/24 Time Notified: 07:56 Method of Notification: Verbal 06/09/24 17:32 Consult: Urology Routine Consulting Provider: Jeniffer Thomson Reason for Consult: Abnormal right kidney EMERGENT Consult: No Notified: Yes Date Notified: 06/09/24 Time Notified: 17:42 Method of Notification: Text Reason For Visit: UTI Diagnosis Discharge Diagnosis (1) Urinary tract infection: Status: Acute Code(s): N39.0 - Urinary tract infection, site not specified (2) Elevated serum creatinine: Status: Acute Code(s): R79.89 - Other specified abnormal findings of blood chemistry (3) Uncontrolled diabetes mellitus: Status: Acute (4) Complex renal cyst: Status: Acute Code(s): N28.1 - Cyst of kidney, acquired Plan 1. ESBL E. coli cystitis- #2 type 2 diabetes-patient's blood sugars will be monitored, sliding scale insulin will be administered as needed #3 hyperkalemia-patient's potassium was high this morning, I have written for Kayexalate and written to stop her lisinopril. BMP will be rechecked tonight #4 morbid obesity-complicates care, management, recovery, and prognosis #5 essential hypertension-patient is to remain on her current medications except for her lisinopril, they will be adjusted as needed #6 hyperlipidemia-patient is on atorvastatin Total clinical time spent by myself addressing the patient's medical issues, reviewing all of her data, and collaborating with patient's care team: 35 minutes Medications at Discharge Home Medications omeprazole 20 mg capsule,delayed release 20 mg PO DAILY GERd 05/29/14 amlodipine 10 mg tablet (Norvasc) 10 mg PO QHS HTN 10/04/16 apixaban 5 mg tablet (Eliquis) 5 mg PO BID blood thinner 10/04/16 atorvastatin 80 mg tablet 80 mg PO QHS Cholesterol 10/25/16 lisinopril 40 mg tablet 40 mg PO DAILY HTN 10/25/16 pioglitazone 15 mg tablet 15 mg PO DAILY DM #30 tabs 10/09/22 dapagliflozin propanediol 10 mg tablet (Farxiga) 10 mg PO QDAY DM 01/01/24 gabapentin 600 mg tablet 600 mg PO QDAY Nerve Pain 01/01/24 insulin glargine 100 unit/mL (3 mL) subcutaneous pen (Lantus Solostar U-100 Insulin) 15 unit subcut DAILY DM 05/14/24 multivitamin with folic acid 400 mcg tablet (Daily-Levon (with folic acid)) 1 tab PO DAILY Supplement 05/14/24 carvedilol 25 mg tablet 25 mg PO BID BP #60 tabs 05/19/24 cholecalciferol (vitamin D3) 50 mcg (2,000 unit) capsule 50 mcg PO DAILY Supplement 06/08/24 ertapenem 1 gram solution for injection 1 g IV DAILY Antibiotic 10 days #9 ea 06/10/24 menthol 0.44 %-zinc oxide 20.6 % topical ointment (Calmoseptine) 1 applic topical BID Skin #0 grams 06/11/24 nystatin 100,000 unit/gram topical powder (Nyamyc) 1 applic topical BID Skin #0 grams 06/11/24 Hospital Course Operations None Procedures None Summary of Care Provided Minutes Spent on Discharge: 32 Hospital Course: This 68-year-old white female was seen in the emergency room at [facility] with a chief complaint of dysuria and urinary frequency. Patient stated she was recently admitted here to the hospital and noted that she was discharged home a week ago. Patient develops symptoms of dysuria after discharge from the hospital, she was seen by her primary care physician a few days ago and gave her urine sample was placed on Bactrim. Workup in the ER revealed the patient have normal white blood cell count, hemoglobin was 11.7, potassium was elevated at 5.2, creatinine was 1.1. Patient's urine culture showed positive for ESBL E. coli with multiple resistant drugs. Patient was admitted to [place] [address], placed on IV antibiotics and seen by infectious diseases. She received several days of IV antibiotics. Patient's lisinopril was stopped due to high potassium, she was given Kayexalate and potassium normalized. Patient was seen by PT and OT and was felt to be appropriate for short-term rehab services, she was accepted at TCU. On 06/11/2024 patient was seen and examined:alert, oriented x3 and no apparent distress Constitutional Narrative: Patient is morbidly obese General Appearance: cooperative and well developed Orientation / Consciousness: awake, oriented to person, oriented to place and oriented to time HEENT normocephalic, head/scalp atraumatic and moist oral mucous membranes Eyes PERRL, EOMs intact bilaterally and conjunctivae normal Neck supple, no JVD, thyroid normal and no carotid bruits General: trachea midline Resp normal respiratory effort, no retractions, no use of accessory muscles and clear to auscultation bilaterally Auscultation: Negative for rales, rhonchi or wheezes Cardio regular rate, regular rhythm, S1 normal heart sound, S2 normal heart sound, no murmurs, no rub and no gallops GI normal to inspection, nondistended, normoactive bowel sounds, soft to palpation, non-tender and non-distended Extremity no clubbing, cyanosis or edema Skin no rashes or lesions noted General Skin Exam: no breakdown Neuro oriented x3, CN's II-XII intact bilaterally, moves all extremities, no focal motor deficits and no sensory deficits noted Sensorium / Orientation: awake and alert Speech: speech normal Psych affect normal Patient appeared stable for discharge to TCU on 06/11/2024. Weight / BMI Weight Weight: 118.104 kg Body Mass Index (BMI) 39.6 ABG / Lab / Microbiology Data 06/09/24 06:52 06/11/24 04:44 Laboratory: Laboratory Results - last 24 hr 06/10/24 17:01: POC Glucose 282 H 06/10/24 22:35: POC Glucose 276 H 06/11/24 04:44: Sodium 138, Potassium 4.5, Chloride 108 H, Carbon Dioxide 23.0, Anion Gap 7, BUN 24 H, Creatinine 1.01, Estim Creat Clear Calc 71.02, Est GFR (MDRD) Af Amer 70, Est GFR (MDRD) Non-Af 58 L, BUN/Creatinine Ratio 23.8 H, Glucose 178 H, Calcium 10.1 06/11/24 06:37: POC Glucose 158 H 06/11/24 11:04: POC Glucose 246 H Microbiology: Microbiology 06/08/24 16:25 Blood Culture (Wb) - Anticubital Left Blood Culture - Preliminary No growth in 48 hours. Meaningful Use Info Meaningful Use Meaningful Use Diagnoses (Choose all that apply): None applicable Ischemic Stroke Statin Dosing Therapy Reference: STATIN DOSE THERAPY REFERENCE: * Patients > 75 years receive moderate or high dose statin therapy. * Patients 75 years or YOUNGER should receive HIGH intensity statin dose unless contraindicated. You will be required to document reason for non-treatment if statin daily dose does not meet guidelines. HIGH DOSE STATIN THERAPY DAILY Atorvastatin > than or = to 40 mg Rosuvastatin > than or = to 20 mg Amlodipine + Atorvastatin > than or = to 2.5/40 mg Ezetimibe + Simvastatin 10/80 mg Simvastatin 80mg Discharge Plan Admission Admit Date/Time: 06/08/24 17:41 Primary Reason for Your Visit: ESBL E. coli cystitis Attending Provider: Dennis Lazcano Primary Care Provider: Dennis Pelayo Consulting Providers: Cherri Giles; Abel Don; Jeniffer Thomson Discharge Orders/Prescriptions Prescriptions: New ertapenem 1 gram recon soln 1 g IV DAILY 10 Days Qty: 9 0RF Rx Instructions: dx: esbl infection. Stop date 06/20/24. weekly bmp, cbc, and LFT; fax to [phone]. Routine midline care per protocol. nystatin [Nyamyc] 100,000 unit/gram Powder 1 applic topical BID Qty: 0 0RF Protocol: *Topical Application Instructions APPLICATION INSTRUCTIONS: affected areas, under breasts & abdomen menthol-zinc oxide [Calmoseptine] 0.44-20.6 % Ointment 1 applic topical BID Qty: 0 0RF Protocol: *Topical Application Instructions APPLICATION INSTRUCTIONS: bilateral buttocks Continued dapagliflozin propanediol [Farxiga] 10 mg tablet 10 mg PO QDAY gabapentin 600 mg tablet 600 mg PO QDAY omeprazole 20 MG capsule 20 mg PO DAILY amlodipine [Norvasc] 10 MG tablet 10 mg PO QHS Eliquis 5 MG tablet 5 mg PO BID atorvastatin 80 MG tablet 80 mg PO QHS 0RF lisinopril 40 MG tablet 40 mg PO DAILY 0RF multivitamin with folic acid [Daily-Levon (with folic acid)] 400 mcg tablet 1 tab PO DAILY insulin glargine [Lantus Solostar U-100 Insulin] 100 unit/mL (3 mL) insulin pen 15 unit subcut DAILY carvedilol 25 mg tablet 25 mg PO BID Qty: 60 0RF Rx Instructions: must administer with a meal/food cholecalciferol (vitamin D3) 50 mcg (2,000 unit) capsule 50 mcg PO DAILY pioglitazone 15 mg tablet 15 mg PO DAILY Qty: 30 3RF Discontinued metformin 500 mg tablet 500 mg PO BID diphenoxylate-atropine 2.5-0.025 mg tablet 1 tab PO Q8H PRN (Reason: diarrhea) glipizide 10 mg tablet 10 mg PO BID Trulicity 4.5 mg/0.5 mL pen injector 4.5 mg subcut QWEEK Patient Comments: sundays furosemide 40 mg tablet 40 mg PO DAILY sulfamethoxazole-trimethoprim 800-160 mg tablet 1 tab PO BID nystatin 100,000 unit/gram powder 1 applic topical BID Referrals / Follow Up: Dennis Pelayo DO [Primary Care Provider] - Disposition Disposition (needs filled in before D/C Order can be placed): [facility] Charges/Coding Visit Charges Inpatient E&M: 48605 Disch Hosp >30min
--- NOTE | 2024-06-11 15:11 | CASEMGMT ---
Social Work- SW received notice of acceptance from facility and insurance precert. Physician updated and feels pt is medically ready for discharge. Pt notified and is agreeable to d/c plan. Bedside RN notified of discharge. KELLY faxed RAMESH to [facility]. Documentation faxed to TCU. Pt reports no other needs at this time. ARELIS Muhammad
--- NOTE | 2024-06-11 15:54 | NURSING ---
report called and given to Meghna in TCU, pt to be transferred over
[2024-06-11 16:41] LABS: Bedside Glucose 309 mg/dL (74-106)
== END 2024-06-11 17:33 | disposition skilled nursing facility (03) | DRG 690 ==
LOC: ED 17:43 → MS3 17:49
PROVIDERS: Family Medicine; Admitting Provider Internal Medicine; Emergency Provider Emergency Medicine; PCP Family Medicine; Visit Provider Internal Medicine
DX: N12 Tubulo-interstitial nephritis, not specified as acute or chronic (principal); Z16.24 Resistance to multiple antibiotics; B96.20 Unspecified Escherichia coli [E. coli] as the cause of diseases classified elsewhere; E11.65 Type 2 diabetes mellitus with hyperglycemia; E66.9 Obesity, unspecified; B96.89 Other specified bacterial agents as the cause of diseases classified elsewhere; I10 Essential (primary) hypertension; I48.91 Unspecified atrial fibrillation; E78.5 Hyperlipidemia, unspecified; K21.9 Gastro-esophageal reflux disease without esophagitis; Z79.4 Long term (current) use of insulin; R54 Age-related physical debility; G47.33 Obstructive sleep apnea (adult) (pediatric); Z80.0 Family history of malignant neoplasm of digestive organs; Z79.01 Long term (current) use of anticoagulants; Z90.710 Acquired absence of both cervix and uterus; Z87.891 Personal history of nicotine dependence; Z82.3 Family history of stroke; Z79.84 Long term (current) use of oral hypoglycemic drugs; Z79.85 Long-term (current) use of injectable non-insulin antidiabetic drugs; N28.1 Cyst of kidney, acquired; Z68.30 Body mass index [BMI] 30.0-30.9, adult; N39.0 Urinary tract infection, site not specified
CPT/HCPCS: 36415; 71045; 74178; 76770; 80048; 80053; 81002; 82248; 82962; 83036; 83690; 83735; 84100; 84443; 85025; 85610; 87040; 87077; 87086; 87088; 87186; 97162; 97166; 97530; 97535; 99285; J2185; Q9967; A4216; J2405

== ENCOUNTER 2024-06-11 17:49 | Inpatient (IN) | payer MEDICARE, MEDICAID, SELFPAY ==
[2024-06-11 18:08] VITALS: BP 130/65; PULSE 102; RESP 18; TEMP 36; O2SAT 94
[2024-06-11 20:00] VITALS: PULSE 97; RESP 16; O2SAT 92
[2024-06-11 20:50] VITALS: BP 140/73; PULSE 97; RESP 16; O2SAT 92
[2024-06-11] MEDS: Nystatin Powder 15gm Bottle 1 APPLIC TOPICAL (20:51)
[2024-06-11] MEDS: Carvedilol 25 MG Tablet PO (20:51)
[2024-06-11] MEDS: amLODIPine 10 MG Tablet PO (20:51)
[2024-06-11] MEDS: Senna/Docusate Sodium 1 Tablet PO (20:51)
[2024-06-11] MEDS: Atorvastatin Calcium 80 MG Tablet PO (20:51)
[2024-06-11] MEDS: APIXABAN 5 MG TABLET PO (20:51)
[2024-06-11] MEDS: Menthol/Lanolin/Calamine/Znox 113 GM Tube 1 APPLIC TOPICAL (20:57)
[2024-06-12 00:07] LABS: Bedside Glucose 223 mg/dL (74-106)
[2024-06-12 06:34] LABS: Bedside Glucose 173 mg/dL (74-106)
[2024-06-12 07:57] LABS: Absolute Lymphocyte Count 1.68 X10^3/uL (0.83-4.51); Absolute Neutrophil Count 4.1 X10^3/uL (2.0-7.7); Basophil# 0.04 X10^3/uL; Basophil% 0.6 % (0-1); Eosinophils% 1.5 % (0-5); Hemoglobin 11.6 g/dL (12.0-15.0); Lymphocyte # 1.68 X10^3/ul (0.83-4.51); Lymphocyte % 25.7 % (19-41); Mean Corp Hgb Conc 30.5 g/dL (32-36); Mean Corpuscular Hgb 23.8 pg (27.0-32.0); Mean Platelet Vol. 8.5 fl (6.2-12.0); Monocyte# 0.57 X10^3/uL; Monocyte% 8.7 % (0-10); NRBC Flagged by Analyzer 0 % (0-5); Neutrophil # 4.09 X10^3/uL (2.7-7.7); Neutrophil % 62.7 % (47-70); Platelet Count 213 K/mm3 (150-450); RBC Distribution Width CV 19.4 % (11.6-14.6); RBC Distribution Width SD 52.8 fl (35.1-43.9); Red Blood Count 4.87 M/mm3 (4.2-5.4); White Blood Count 6.5 K/mm3 (4.4-11.0)
[2024-06-12 08:17] LABS: Anion Gap 2 (5-15); BUN 24 mg/dL (7-18); BUN/Creat Ratio 30.2 RATIO (10-20); Calcium,Total 9.9 mg/dL (8.5-10.1); Chloride 108 mmol/L (98-107); Creatinine, Serum 0.79 mg/dL (0.55-1.02); EST Glomerular Filtration Rate 76 mL/min (>60); Est Glom Filt Rate - Afr Amer 92 mL/min (>60); Glucose 178 mg/dL (74-106); Potassium 4.9 mmol/L (3.5-5.1); Sodium Level 138 mmol/L (136-145)
[2024-06-12] MEDS: Insulin Glargine-YFGN 100 UNIT/ML Pen 15 UNIT SC (09:53)
[2024-06-12] MEDS: Pioglitazone Hydrochloride 15 MG Tablet PO (10:06)
[2024-06-12] MEDS: Multivitamins,Therapeutic Tablet 1 TABLET PO (10:06)
[2024-06-12] MEDS: APIXABAN 5 MG TABLET PO ×2 (10:07→22:14)
[2024-06-12] MEDS: Pantoprazole Sodium 20 MG Tablet PO (10:07)
[2024-06-12] MEDS: Empagliflozin 25 MG Tablet PO (10:07)
[2024-06-12] MEDS: Carvedilol 25 MG Tablet PO ×2 (10:07→22:14)
[2024-06-12] MEDS: Lisinopril 40 MG Tablet PO (10:08)
[2024-06-12] MEDS: Cholecalciferol (VIT D3) 25 MCG TABLET (1,000 UNITS) 50 MCG PO (10:08)
[2024-06-12] MEDS: Senna/Docusate Sodium 1 Tablet PO ×2 (10:09→22:14)
[2024-06-12] MEDS: Gabapentin 600 MG Tablet PO (10:09)
[2024-06-12] MEDS: Nystatin Powder 15gm Bottle 1 APPLIC TOPICAL ×2 (10:13→22:21)
[2024-06-12] MEDS: Tuberculin,Purif.prot.deriv. 50 TU/ML Vial 0.1 ML ID (10:13)
[2024-06-12] MEDS: Menthol/Lanolin/Calamine/Znox 113 GM Tube 1 APPLIC TOPICAL ×2 (10:14→22:21)
[2024-06-12 10:17] VITALS: BP 131/61; PULSE 90; O2SAT 90
[2024-06-12] MEDS: Ertapenem Sod 1 GM in 0.9% Normal Saline (50mL MB+) 50 ML IV (10:46)
[2024-06-12 12:53] LABS: Bedside Glucose 199 mg/dL (74-106)
[2024-06-12 13:05] VITALS: PULSE 95; RESP 18; O2SAT 95
[2024-06-12 13:23] VITALS: BP 103/56; PULSE 95; RESP 20; TEMP 36.8; O2SAT 95
[2024-06-12 13:55] VITALS: BMI 41.5
[2024-06-12 16:00] VITALS: RESP 16; TEMP 37.3
[2024-06-12 17:02] LABS: Bedside Glucose 192 mg/dL (74-106)
[2024-06-12 21:38] LABS: Bedside Glucose 230 mg/dL (74-106)
[2024-06-12 22:10] VITALS: BP 108/59; PULSE 91
[2024-06-12] MEDS: amLODIPine 10 MG Tablet PO (22:14)
[2024-06-12] MEDS: Atorvastatin Calcium 80 MG Tablet PO (22:14)
[2024-06-13 06:50] LABS: Bedside Glucose 162 mg/dL (74-106)
[2024-06-13] MEDS: Pioglitazone Hydrochloride 15 MG Tablet PO (08:12)
[2024-06-13] MEDS: APIXABAN 5 MG TABLET PO ×2 (08:12→21:52)
[2024-06-13] MEDS: Carvedilol 25 MG Tablet PO ×2 (08:12→21:51)
[2024-06-13] MEDS: Multivitamins,Therapeutic Tablet 1 TABLET PO (08:12)
[2024-06-13] MEDS: Gabapentin 600 MG Tablet PO (08:13)
[2024-06-13] MEDS: Lisinopril 40 MG Tablet PO (08:13)
[2024-06-13] MEDS: Senna/Docusate Sodium 1 Tablet PO ×2 (08:13→21:53)
[2024-06-13] MEDS: Pantoprazole Sodium 20 MG Tablet PO (08:13)
[2024-06-13] MEDS: Cholecalciferol (VIT D3) 25 MCG TABLET (1,000 UNITS) 50 MCG PO (08:13)
[2024-06-13] MEDS: Empagliflozin 25 MG Tablet PO (08:13)
[2024-06-13] MEDS: Nystatin Powder 15gm Bottle 1 APPLIC TOPICAL ×2 (08:14→21:52)
[2024-06-13] MEDS: Menthol/Lanolin/Calamine/Znox 113 GM Tube 1 APPLIC TOPICAL ×2 (08:14→21:49)
[2024-06-13] MEDS: Insulin Glargine-YFGN 100 UNIT/ML Pen 15 UNIT SC (08:14)
[2024-06-13 08:21] VITALS: BP 102/60; PULSE 93; O2SAT 94
[2024-06-13] MEDS: 0.9 % NaCl (Sterile) Posiflush 10 mL IV ×2 (10:11→21:49)
[2024-06-13] MEDS: Ertapenem Sod 1 GM in 0.9% Normal Saline (50mL MB+) 50 ML IV (10:19)
[2024-06-13 11:49] LABS: Bedside Glucose 182 mg/dL (74-106)
[2024-06-13 17:04] LABS: Bedside Glucose 226 mg/dL (74-106)
[2024-06-13 20:00] VITALS: PULSE 86; O2SAT 92
[2024-06-13 21:45] VITALS: BP 120/57; PULSE 85
[2024-06-13 21:46] LABS: Bedside Glucose 171 mg/dL (74-106)
[2024-06-13] MEDS: Atorvastatin Calcium 80 MG Tablet PO (21:52)
[2024-06-13] MEDS: amLODIPine 10 MG Tablet PO (21:52)
[2024-06-14 06:20] LABS: Bedside Glucose 174 mg/dL (74-106)
[2024-06-14] MEDS: APIXABAN 5 MG TABLET PO ×2 (09:10→21:02)
[2024-06-14] MEDS: Senna/Docusate Sodium 1 Tablet PO ×2 (09:10→21:03)
[2024-06-14] MEDS: Multivitamins,Therapeutic Tablet 1 TABLET PO (09:11)
[2024-06-14] MEDS: Empagliflozin 25 MG Tablet PO (09:11)
[2024-06-14] MEDS: Nystatin Powder 15gm Bottle 1 APPLIC TOPICAL ×2 (09:12→21:02)
[2024-06-14] MEDS: Pantoprazole Sodium 20 MG Tablet PO (09:12)
[2024-06-14] MEDS: Pioglitazone Hydrochloride 15 MG Tablet PO (09:13)
[2024-06-14] MEDS: Carvedilol 25 MG Tablet PO ×2 (09:14→21:02)
[2024-06-14] MEDS: Menthol/Lanolin/Calamine/Znox 113 GM Tube 1 APPLIC TOPICAL ×2 (09:14→21:00)
[2024-06-14] MEDS: Lisinopril 40 MG Tablet PO (09:15)
[2024-06-14] MEDS: Cholecalciferol (VIT D3) 25 MCG TABLET (1,000 UNITS) 50 MCG PO (09:15)
[2024-06-14] MEDS: Gabapentin 600 MG Tablet PO (09:19)
[2024-06-14 10:00] VITALS: PULSE 82; RESP 17; O2SAT 97
[2024-06-14] MEDS: Insulin Glargine-YFGN 100 UNIT/ML Pen 15 UNIT SC (11:00)
[2024-06-14] MEDS: Ertapenem Sod 1 GM in 0.9% Normal Saline (50mL MB+) 50 ML IV (11:01)
[2024-06-14 11:37] LABS: Bedside Glucose 212 mg/dL (74-106)
[2024-06-14 15:58] VITALS: BP 115/59; PULSE 83; RESP 16; TEMP 36; O2SAT 94
[2024-06-14 16:21] LABS: Bedside Glucose 199 mg/dL (74-106)
[2024-06-14 20:00] VITALS: PULSE 86; O2SAT 91
[2024-06-14 20:57] VITALS: BP 108/56; PULSE 88
[2024-06-14] MEDS: 0.9% Saline Lock 10 ML Syringe IV (21:00)
[2024-06-14] MEDS: Atorvastatin Calcium 80 MG Tablet PO (21:02)
[2024-06-14] MEDS: amLODIPine 10 MG Tablet PO (21:03)
[2024-06-14 21:46] LABS: Bedside Glucose 221 mg/dL (74-106)
[2024-06-15 05:24] VITALS: PULSE 80; O2SAT 94
[2024-06-15 06:13] LABS: Bedside Glucose 155 mg/dL (74-106)
[2024-06-15] MEDS: Pioglitazone Hydrochloride 15 MG Tablet PO (09:10)
[2024-06-15] MEDS: Multivitamins,Therapeutic Tablet 1 TABLET PO (09:10)
[2024-06-15] MEDS: Menthol/Lanolin/Calamine/Znox 113 GM Tube 1 APPLIC TOPICAL ×2 (09:11→21:53)
[2024-06-15] MEDS: Carvedilol 25 MG Tablet PO ×2 (09:11→21:55)
[2024-06-15] MEDS: APIXABAN 5 MG TABLET PO ×2 (09:11→21:56)
[2024-06-15] MEDS: Empagliflozin 25 MG Tablet PO (09:11)
[2024-06-15] MEDS: Senna/Docusate Sodium 1 Tablet PO ×2 (09:12→21:57)
[2024-06-15] MEDS: Pantoprazole Sodium 20 MG Tablet PO (09:12)
[2024-06-15] MEDS: Cholecalciferol (VIT D3) 25 MCG TABLET (1,000 UNITS) 50 MCG PO (09:13)
[2024-06-15] MEDS: Lisinopril 40 MG Tablet PO (09:13)
[2024-06-15] MEDS: Nystatin Powder 15gm Bottle 1 APPLIC TOPICAL ×2 (09:15→21:56)
[2024-06-15] MEDS: Ertapenem Sod 1 GM in 0.9% Normal Saline (50mL MB+) 50 ML IV (09:18)
[2024-06-15] MEDS: Gabapentin 600 MG Tablet PO (09:19)
[2024-06-15] MEDS: Insulin Glargine-YFGN 100 UNIT/ML Pen 15 UNIT SC (09:24)
[2024-06-15] MEDS: 0.9% Saline Lock 10 ML Syringe IV ×2 (09:29→21:55)
[2024-06-15 11:25] LABS: Bedside Glucose 212 mg/dL (74-106)
[2024-06-15 13:33] VITALS: BP 106/57; PULSE 82; RESP 16; TEMP 35.3; O2SAT 93
[2024-06-15 16:42] LABS: Bedside Glucose 164 mg/dL (74-106)
[2024-06-15 21:51] VITALS: BP 108/59; PULSE 86
[2024-06-15] MEDS: Atorvastatin Calcium 80 MG Tablet PO (21:56)
[2024-06-15] MEDS: amLODIPine 10 MG Tablet PO (21:56)
[2024-06-15 22:12] LABS: Bedside Glucose 171 mg/dL (74-106)
[2024-06-16 06:16] LABS: Bedside Glucose 153 mg/dL (74-106)
[2024-06-16] MEDS: Pioglitazone Hydrochloride 15 MG Tablet PO (08:44)
[2024-06-16] MEDS: Gabapentin 600 MG Tablet PO (08:44)
[2024-06-16] MEDS: Carvedilol 25 MG Tablet PO ×2 (08:44→20:57)
[2024-06-16] MEDS: Lisinopril 40 MG Tablet PO (08:44)
[2024-06-16] MEDS: Empagliflozin 25 MG Tablet PO (08:44)
[2024-06-16] MEDS: Cholecalciferol (VIT D3) 25 MCG TABLET (1,000 UNITS) 50 MCG PO (08:44)
[2024-06-16] MEDS: Multivitamins,Therapeutic Tablet 1 TABLET PO (08:44)
[2024-06-16] MEDS: Pantoprazole Sodium 20 MG Tablet PO (08:44)
[2024-06-16] MEDS: Senna/Docusate Sodium 1 Tablet PO ×2 (08:44→20:57)
[2024-06-16] MEDS: APIXABAN 5 MG TABLET PO ×2 (08:45→20:57)
[2024-06-16] MEDS: Nystatin Powder 15gm Bottle 1 APPLIC TOPICAL ×2 (08:46→21:03)
[2024-06-16] MEDS: Menthol/Lanolin/Calamine/Znox 113 GM Tube 1 APPLIC TOPICAL ×2 (08:46→21:03)
[2024-06-16] MEDS: Insulin Glargine-YFGN 100 UNIT/ML Pen 15 UNIT SC (08:47)
[2024-06-16 08:55] VITALS: BP 96/64; PULSE 84; O2SAT 92
[2024-06-16] MEDS: Ertapenem Sod 1 GM in 0.9% Normal Saline (50mL MB+) 50 ML IV (10:00)
[2024-06-16 11:29] LABS: Bedside Glucose 262 mg/dL (74-106)
[2024-06-16 15:54] VITALS: RESP 16; TEMP 36.3
[2024-06-16 16:41] LABS: Bedside Glucose 315 mg/dL (74-106)
[2024-06-16] MEDS: Insulin Lispro 100 UNIT/ML INSULN.PEN SC (17:50)
[2024-06-16 20:55] VITALS: PULSE 83; O2SAT 95
[2024-06-16] MEDS: Atorvastatin Calcium 80 MG Tablet PO (20:57)
[2024-06-16] MEDS: amLODIPine 10 MG Tablet PO (20:57)
[2024-06-16 21:34] LABS: Bedside Glucose 245 mg/dL (74-106)
[2024-06-17 06:33] LABS: Bedside Glucose 151 mg/dL (74-106)
[2024-06-17 10:05] VITALS: BP 127/57; PULSE 82; RESP 14; TEMP 35.6; O2SAT 92
[2024-06-17 10:24] VITALS: BMI 41.4
[2024-06-17] MEDS: Pantoprazole Sodium 20 MG Tablet PO (10:24)
[2024-06-17] MEDS: Cholecalciferol (VIT D3) 25 MCG TABLET (1,000 UNITS) 50 MCG PO (10:24)
[2024-06-17] MEDS: Lisinopril 40 MG Tablet PO (10:24)
[2024-06-17] MEDS: Insulin Glargine-YFGN 100 UNIT/ML Pen 15 UNIT SC (10:25)
[2024-06-17] MEDS: Carvedilol 25 MG Tablet PO ×2 (10:27→20:24)
[2024-06-17] MEDS: APIXABAN 5 MG TABLET PO ×2 (10:27→20:24)
[2024-06-17] MEDS: Pioglitazone Hydrochloride 15 MG Tablet PO (10:27)
[2024-06-17] MEDS: Empagliflozin 25 MG Tablet PO (10:27)
[2024-06-17] MEDS: Gabapentin 600 MG Tablet PO (10:28)
[2024-06-17] MEDS: Multivitamins,Therapeutic Tablet 1 TABLET PO (10:28)
[2024-06-17] MEDS: Menthol/Lanolin/Calamine/Znox 113 GM Tube 1 APPLIC TOPICAL ×2 (10:28→20:25)
[2024-06-17] MEDS: Nystatin Powder 15gm Bottle 1 APPLIC TOPICAL ×2 (10:29→20:25)
[2024-06-17] MEDS: Ertapenem Sod 1 GM in 0.9% Normal Saline (50mL MB+) 50 ML IV (10:40)
[2024-06-17 12:06] LABS: Bedside Glucose 181 mg/dL (74-106)
[2024-06-17 16:56] LABS: Bedside Glucose 275 mg/dL (74-106)
[2024-06-17] MEDS: Atorvastatin Calcium 80 MG Tablet PO (20:25)
[2024-06-17] MEDS: amLODIPine 10 MG Tablet PO (20:25)
[2024-06-17 21:35] LABS: Bedside Glucose 218 mg/dL (74-106)
[2024-06-18 06:33] LABS: Bedside Glucose 166 mg/dL (74-106)
[2024-06-18] MEDS: Multivitamins,Therapeutic Tablet 1 TABLET PO (08:22)
[2024-06-18] MEDS: Pioglitazone Hydrochloride 15 MG Tablet PO (08:22)
[2024-06-18] MEDS: Menthol/Lanolin/Calamine/Znox 113 GM Tube 1 APPLIC TOPICAL ×2 (08:22→20:02)
[2024-06-18] MEDS: Empagliflozin 25 MG Tablet PO (08:23)
[2024-06-18] MEDS: APIXABAN 5 MG TABLET PO ×2 (08:23→20:01)
[2024-06-18] MEDS: Nystatin Powder 15gm Bottle 1 APPLIC TOPICAL ×2 (08:23→20:03)
[2024-06-18] MEDS: Insulin Glargine-YFGN 100 UNIT/ML Pen 15 UNIT SC (09:40)
[2024-06-18] MEDS: Pantoprazole Sodium 20 MG Tablet PO (09:59)
[2024-06-18] MEDS: Lisinopril 40 MG Tablet PO (09:59)
[2024-06-18] MEDS: Cholecalciferol (VIT D3) 25 MCG TABLET (1,000 UNITS) 50 MCG PO (09:59)
[2024-06-18] MEDS: Carvedilol 25 MG Tablet PO ×2 (09:59→20:02)
[2024-06-18] MEDS: Gabapentin 600 MG Tablet PO (10:03)
[2024-06-18] MEDS: 0.9% Saline Lock 10 ML Syringe IV (10:09)
[2024-06-18] MEDS: Ertapenem Sod 1 GM in 0.9% Normal Saline (50mL MB+) 50 ML IV (10:12)
[2024-06-18 11:48] LABS: Bedside Glucose 207 mg/dL (74-106)
[2024-06-18 15:02] VITALS: RESP 18; TEMP 36.3
[2024-06-18 17:27] LABS: Bedside Glucose 201 mg/dL (74-106)
[2024-06-18 20:00] VITALS: BP 124/57; PULSE 89
[2024-06-18] MEDS: amLODIPine 10 MG Tablet PO (20:02)
[2024-06-18] MEDS: Atorvastatin Calcium 80 MG Tablet PO (20:02)
[2024-06-18 21:57] LABS: Bedside Glucose 283 mg/dL (74-106)
[2024-06-19 05:55] LABS: Bedside Glucose 177 mg/dL (74-106)
[2024-06-19 06:02] LABS: Absolute Lymphocyte Count 1.42 X10^3/uL (0.83-4.51); Absolute Neutrophil Count 3.6 X10^3/uL (2.0-7.7); Basophil# 0.05 X10^3/uL; Basophil% 0.8 % (0-1); Eosinophil# 0.12 X10^3/uL; Hematocrit 37.6 % (37-47); Hemoglobin 11.1 g/dL (12.0-15.0); Lymphocyte # 1.42 X10^3/ul (0.83-4.51); Lymphocyte % 23.6 % (19-41); Mean Corp Hgb Conc 29.5 g/dL (32-36); Mean Corpuscular Hgb 23.5 pg (27.0-32.0); Mean Corpuscular Volume 79.5 fL (81-99); Mean Platelet Vol. 9.2 fl (6.2-12.0); Monocyte# 0.74 X10^3/uL; Monocyte% 12.3 % (0-10); NRBC Flagged by Analyzer 0 % (0-5); Neutrophil # 3.64 X10^3/uL (2.7-7.7); Neutrophil % 60.6 % (47-70); Platelet Count 185 K/mm3 (150-450); RBC Distribution Width CV 19.6 % (11.6-14.6); RBC Distribution Width SD 54.8 fl (35.1-43.9); Red Blood Count 4.73 M/mm3 (4.2-5.4)
[2024-06-19 07:12] LABS: Anion Gap 4 (5-15); BUN 39 mg/dL (7-18); BUN/Creat Ratio 44.4 RATIO (10-20); Chloride 110 mmol/L (98-107); Creatinine, Serum 0.88 mg/dL (0.55-1.02); EST Glomerular Filtration Rate 68 mL/min (>60); Est Glom Filt Rate - Afr Amer 82 mL/min (>60); Glucose 189 mg/dL (74-106); Sodium Level 138 mmol/L (136-145)
[2024-06-19] MEDS: Multivitamins,Therapeutic Tablet 1 TABLET PO (09:10)
[2024-06-19] MEDS: Empagliflozin 25 MG Tablet PO (09:15)
[2024-06-19] MEDS: Carvedilol 25 MG Tablet PO ×2 (09:15→22:59)
[2024-06-19] MEDS: Menthol/Lanolin/Calamine/Znox 113 GM Tube 1 APPLIC TOPICAL ×2 (09:15→22:58)
[2024-06-19] MEDS: APIXABAN 5 MG TABLET PO ×2 (09:15→22:59)
[2024-06-19] MEDS: Pantoprazole Sodium 20 MG Tablet PO (09:16)
[2024-06-19] MEDS: Nystatin Powder 15gm Bottle 1 APPLIC TOPICAL ×2 (09:16→22:58)
[2024-06-19] MEDS: Cholecalciferol (VIT D3) 25 MCG TABLET (1,000 UNITS) 50 MCG PO (09:16)
[2024-06-19] MEDS: Lisinopril 40 MG Tablet PO (09:16)
[2024-06-19] MEDS: Insulin Glargine-YFGN 100 UNIT/ML Pen 15 UNIT SC ×2 (09:17→23:02)
[2024-06-19] MEDS: Pioglitazone Hydrochloride 15 MG Tablet PO (09:17)
[2024-06-19] MEDS: Gabapentin 600 MG Tablet PO (09:22)
[2024-06-19] MEDS: Tuberculin,Purif.prot.deriv. 50 TU/ML Vial 0.1 ML ID (09:24)
[2024-06-19 09:28] VITALS: BP 110/58; PULSE 80; O2SAT 98
[2024-06-19] MEDS: 0.9% Saline Lock 10 ML Syringe IV ×2 (10:30→22:55)
[2024-06-19] MEDS: Ertapenem Sod 1 GM in 0.9% Normal Saline (50mL MB+) 50 ML IV (10:37)
[2024-06-19] MEDS: 0.9% Normal Saline (500mL Bag) 500 ML 15 ML IV (10:39)
[2024-06-19 11:31] LABS: Bedside Glucose 263 mg/dL (74-106)
[2024-06-19 16:35] LABS: Bedside Glucose 270 mg/dL (74-106)
[2024-06-19 21:34] LABS: Bedside Glucose 243 mg/dL (74-106)
[2024-06-19 22:54] VITALS: BP 109/69; PULSE 84
[2024-06-19] MEDS: amLODIPine 10 MG Tablet PO (23:00)
[2024-06-19] MEDS: Atorvastatin Calcium 80 MG Tablet PO (23:00)
[2024-06-19] MEDS: Senna/Docusate Sodium 1 Tablet PO (23:01)
[2024-06-20 06:37] LABS: Bedside Glucose 185 mg/dL (74-106)
[2024-06-20 10:35] VITALS: BP 100/44; PULSE 74; RESP 17; O2SAT 98
[2024-06-20 10:37] VITALS: BP 100/45; PULSE 69
[2024-06-20] MEDS: Multivitamins,Therapeutic Tablet 1 TABLET PO (10:41)
[2024-06-20] MEDS: Pioglitazone Hydrochloride 15 MG Tablet PO (10:41)
[2024-06-20] MEDS: Menthol/Lanolin/Calamine/Znox 113 GM Tube 1 APPLIC TOPICAL ×2 (10:41→22:40)
[2024-06-20] MEDS: APIXABAN 5 MG TABLET PO ×2 (10:42→22:44)
[2024-06-20] MEDS: Gabapentin 600 MG Tablet PO (10:42)
[2024-06-20] MEDS: Nystatin Powder 15gm Bottle 1 APPLIC TOPICAL ×2 (10:42→22:46)
[2024-06-20] MEDS: Pantoprazole Sodium 20 MG Tablet PO (10:42)
[2024-06-20] MEDS: Senna/Docusate Sodium 1 Tablet PO ×2 (10:42→22:48)
[2024-06-20] MEDS: Empagliflozin 25 MG Tablet PO (10:42)
[2024-06-20] MEDS: Cholecalciferol (VIT D3) 25 MCG TABLET (1,000 UNITS) 50 MCG PO (10:43)
[2024-06-20] MEDS: Ertapenem Sod 1 GM in 0.9% Normal Saline (50mL MB+) 50 ML IV (10:46)
[2024-06-20] MEDS: 0.9% Saline Lock 10 ML Syringe IV ×3 (10:49→22:41)
[2024-06-20] MEDS: Insulin Glargine-YFGN 100 UNIT/ML Pen 15 UNIT SC ×2 (10:57→22:44)
[2024-06-20 11:26] LABS: Bedside Glucose 254 mg/dL (74-106)
[2024-06-20 11:33] VITALS: BP 112/54; PULSE 74; RESP 16
[2024-06-20] MEDS: Carvedilol 25 MG Tablet PO ×2 (11:39→22:43)
[2024-06-20] MEDS: Lisinopril 40 MG Tablet PO (11:39)
[2024-06-20 14:15] VITALS: TEMP 36.4
[2024-06-20 17:17] LABS: Bedside Glucose 232 mg/dL (74-106)
[2024-06-20 20:00] VITALS: PULSE 80; O2SAT 92
[2024-06-20 21:47] LABS: Bedside Glucose 248 mg/dL (74-106)
[2024-06-20 22:37] VITALS: BP 107/78; PULSE 82
[2024-06-20] MEDS: amLODIPine 10 MG Tablet PO (22:43)
[2024-06-20] MEDS: Atorvastatin Calcium 80 MG Tablet PO (22:46)
[2024-06-21 06:43] LABS: Bedside Glucose 158 mg/dL (74-106)
[2024-06-21] MEDS: Gabapentin 600 MG Tablet PO (09:04)
[2024-06-21] MEDS: Cholecalciferol (VIT D3) 25 MCG TABLET (1,000 UNITS) 50 MCG PO (09:04)
[2024-06-21] MEDS: Senna/Docusate Sodium 1 Tablet PO ×2 (09:04→21:54)
[2024-06-21] MEDS: Lisinopril 40 MG Tablet PO (09:04)
[2024-06-21] MEDS: Multivitamins,Therapeutic Tablet 1 TABLET PO (09:04)
[2024-06-21] MEDS: Carvedilol 25 MG Tablet PO ×2 (09:04→21:54)
[2024-06-21] MEDS: Pantoprazole Sodium 20 MG Tablet PO (09:05)
[2024-06-21] MEDS: Nystatin Powder 15gm Bottle 1 APPLIC TOPICAL ×2 (09:05→21:54)
[2024-06-21] MEDS: Pioglitazone Hydrochloride 15 MG Tablet PO (09:05)
[2024-06-21] MEDS: APIXABAN 5 MG TABLET PO ×2 (09:05→21:53)
[2024-06-21] MEDS: Menthol/Lanolin/Calamine/Znox 113 GM Tube 1 APPLIC TOPICAL ×2 (09:05→21:59)
[2024-06-21] MEDS: Empagliflozin 25 MG Tablet PO (09:05)
[2024-06-21] MEDS: Insulin Glargine-YFGN 100 UNIT/ML Pen 15 UNIT SC ×2 (09:09→21:53)
[2024-06-21 10:00] VITALS: PULSE 75; O2SAT 93
[2024-06-21 11:34] LABS: Bedside Glucose 204 mg/dL (74-106)
[2024-06-21 16:00] VITALS: BP 103/45; PULSE 62; RESP 18; TEMP 35.8; O2SAT 93
[2024-06-21 16:51] LABS: Bedside Glucose 234 mg/dL (74-106)
[2024-06-21 21:36] LABS: Bedside Glucose 237 mg/dL (74-106)
[2024-06-21] MEDS: amLODIPine 10 MG Tablet PO (21:54)
[2024-06-21] MEDS: Atorvastatin Calcium 80 MG Tablet PO (21:54)
[2024-06-22 03:28] VITALS: BP 113/46; PULSE 82
[2024-06-22 06:45] VITALS: PULSE 74; O2SAT 93
[2024-06-22 06:46] LABS: Bedside Glucose 145 mg/dL (74-106)
[2024-06-22 08:00] VITALS: BP 95/50; PULSE 79; RESP 18; O2SAT 95
[2024-06-22] MEDS: Cholecalciferol (VIT D3) 25 MCG TABLET (1,000 UNITS) 50 MCG PO (08:59)
[2024-06-22] MEDS: Lisinopril 40 MG Tablet PO (08:59)
[2024-06-22] MEDS: Empagliflozin 25 MG Tablet PO (08:59)
[2024-06-22] MEDS: Carvedilol 25 MG Tablet PO ×2 (08:59→21:58)
[2024-06-22] MEDS: Senna/Docusate Sodium 1 Tablet PO ×2 (08:59→21:57)
[2024-06-22] MEDS: Pioglitazone Hydrochloride 15 MG Tablet PO (08:59)
[2024-06-22] MEDS: Nystatin Powder 15gm Bottle 1 APPLIC TOPICAL ×2 (09:00→21:57)
[2024-06-22] MEDS: Menthol/Lanolin/Calamine/Znox 113 GM Tube 1 APPLIC TOPICAL ×2 (09:00→21:58)
[2024-06-22] MEDS: Pantoprazole Sodium 20 MG Tablet PO (09:00)
[2024-06-22] MEDS: Multivitamins,Therapeutic Tablet 1 TABLET PO (09:00)
[2024-06-22] MEDS: APIXABAN 5 MG TABLET PO ×2 (09:00→21:58)
[2024-06-22] MEDS: Insulin Glargine-YFGN 100 UNIT/ML Pen 15 UNIT SC ×2 (09:01→21:58)
[2024-06-22] MEDS: Gabapentin 600 MG Tablet PO (09:04)
[2024-06-22 11:31] LABS: Bedside Glucose 180 mg/dL (74-106)
[2024-06-22 16:51] LABS: Bedside Glucose 261 mg/dL (74-106)
[2024-06-22 21:45] LABS: Bedside Glucose 236 mg/dL (74-106)
[2024-06-22] MEDS: amLODIPine 10 MG Tablet PO (21:57)
[2024-06-22] MEDS: Atorvastatin Calcium 80 MG Tablet PO (21:58)
[2024-06-23 06:43] LABS: Bedside Glucose 142 mg/dL (74-106)
[2024-06-23 09:00] VITALS: BP 110/50; PULSE 79; RESP 18; O2SAT 95
[2024-06-23 10:00] VITALS: PULSE 79; RESP 20; O2SAT 95
[2024-06-23] MEDS: Cholecalciferol (VIT D3) 25 MCG TABLET (1,000 UNITS) 50 MCG PO (10:18)
[2024-06-23] MEDS: Pantoprazole Sodium 20 MG Tablet PO (10:18)
[2024-06-23] MEDS: Empagliflozin 25 MG Tablet PO (10:18)
[2024-06-23] MEDS: APIXABAN 5 MG TABLET PO ×2 (10:18→22:04)
[2024-06-23] MEDS: Lisinopril 40 MG Tablet PO (10:18)
[2024-06-23] MEDS: Senna/Docusate Sodium 1 Tablet PO ×2 (10:19→22:05)
[2024-06-23] MEDS: Menthol/Lanolin/Calamine/Znox 113 GM Tube 1 APPLIC TOPICAL ×2 (10:19→22:02)
[2024-06-23] MEDS: Pioglitazone Hydrochloride 15 MG Tablet PO (10:19)
[2024-06-23] MEDS: Nystatin Powder 15gm Bottle 1 APPLIC TOPICAL ×2 (10:19→22:03)
[2024-06-23] MEDS: Multivitamins,Therapeutic Tablet 1 TABLET PO (10:19)
[2024-06-23] MEDS: Carvedilol 25 MG Tablet PO ×2 (10:19→22:03)
[2024-06-23] MEDS: Insulin Glargine-YFGN 100 UNIT/ML Pen 15 UNIT SC ×2 (10:20→22:05)
[2024-06-23] MEDS: Gabapentin 600 MG Tablet PO (10:22)
[2024-06-23 11:37] LABS: Bedside Glucose 199 mg/dL (74-106)
[2024-06-23 16:00] VITALS: TEMP 35.8
[2024-06-23 17:41] LABS: Bedside Glucose 314 mg/dL (74-106)
[2024-06-23 22:00] VITALS: BP 109/52; PULSE 82
[2024-06-23 22:01] LABS: Bedside Glucose 254 mg/dL (74-106)
[2024-06-23] MEDS: Atorvastatin Calcium 80 MG Tablet PO (22:04)
[2024-06-23] MEDS: amLODIPine 10 MG Tablet PO (22:04)
[2024-06-24 06:41] LABS: Bedside Glucose 150 mg/dL (74-106)
[2024-06-24] MEDS: Insulin Glargine-YFGN 100 UNIT/ML Pen 15 UNIT SC ×2 (08:20→22:34)
[2024-06-24] MEDS: Gabapentin 600 MG Tablet PO (08:20)
[2024-06-24] MEDS: Senna/Docusate Sodium 1 Tablet PO ×2 (08:21→22:39)
[2024-06-24] MEDS: Cholecalciferol (VIT D3) 25 MCG TABLET (1,000 UNITS) 50 MCG PO (08:21)
[2024-06-24] MEDS: Pantoprazole Sodium 20 MG Tablet PO (08:21)
[2024-06-24] MEDS: Menthol/Lanolin/Calamine/Znox 113 GM Tube 1 APPLIC TOPICAL ×2 (08:22→22:36)
[2024-06-24] MEDS: Empagliflozin 25 MG Tablet PO (08:22)
[2024-06-24] MEDS: Nystatin Powder 15gm Bottle 1 APPLIC TOPICAL ×2 (08:22→22:38)
[2024-06-24] MEDS: APIXABAN 5 MG TABLET PO ×2 (08:22→22:38)
[2024-06-24] MEDS: Multivitamins,Therapeutic Tablet 1 TABLET PO (08:22)
[2024-06-24] MEDS: Pioglitazone Hydrochloride 15 MG Tablet PO (08:22)
[2024-06-24] MEDS: Lisinopril 40 MG Tablet PO (09:48)
[2024-06-24] MEDS: Carvedilol 25 MG Tablet PO ×2 (09:48→22:38)
[2024-06-24 10:00] VITALS: O2SAT 100
[2024-06-24 10:36] VITALS: BP 127/84; PULSE 81; RESP 18; TEMP 34.9; O2SAT 100
[2024-06-24 11:57] LABS: Bedside Glucose 213 mg/dL (74-106)
[2024-06-24 16:45] LABS: Bedside Glucose 284 mg/dL (74-106)
[2024-06-24 18:02] VITALS: BMI 42.3
[2024-06-24 22:09] LABS: Bedside Glucose 232 mg/dL (74-106)
[2024-06-24 22:30] VITALS: BP 111/58; PULSE 80
[2024-06-24] MEDS: Atorvastatin Calcium 80 MG Tablet PO (22:38)
[2024-06-24] MEDS: amLODIPine 10 MG Tablet PO (22:39)
[2024-06-25 06:13] LABS: Bedside Glucose 157 mg/dL (74-106)
[2024-06-25] MEDS: Multivitamins,Therapeutic Tablet 1 TABLET PO (08:17)
[2024-06-25] MEDS: Nystatin Powder 15gm Bottle 1 APPLIC TOPICAL ×2 (08:18→22:27)
[2024-06-25] MEDS: Pioglitazone Hydrochloride 15 MG Tablet PO (08:18)
[2024-06-25] MEDS: Empagliflozin 25 MG Tablet PO (08:19)
[2024-06-25] MEDS: Lisinopril 40 MG Tablet PO (08:19)
[2024-06-25] MEDS: Cholecalciferol (VIT D3) 25 MCG TABLET (1,000 UNITS) 50 MCG PO (08:19)
[2024-06-25] MEDS: Pantoprazole Sodium 20 MG Tablet PO (08:19)
[2024-06-25] MEDS: Menthol/Lanolin/Calamine/Znox 113 GM Tube 1 APPLIC TOPICAL ×2 (08:20→22:23)
[2024-06-25] MEDS: Carvedilol 25 MG Tablet PO ×2 (08:20→22:24)
[2024-06-25] MEDS: APIXABAN 5 MG TABLET PO ×2 (08:20→22:25)
[2024-06-25] MEDS: Insulin Glargine-YFGN 100 UNIT/ML Pen 15 UNIT SC ×2 (08:21→22:25)
[2024-06-25] MEDS: Gabapentin 600 MG Tablet PO (08:26)
[2024-06-25 08:29] VITALS: BP 108/58; PULSE 79; O2SAT 93
[2024-06-25 12:09] LABS: Bedside Glucose 166 mg/dL (74-106)
[2024-06-25 16:00] VITALS: PULSE 75; RESP 16; O2SAT 93
[2024-06-25 17:36] LABS: Bedside Glucose 231 mg/dL (74-106)
[2024-06-25 22:02] LABS: Bedside Glucose 274 mg/dL (74-106)
[2024-06-25 22:10] VITALS: BP 121/52; PULSE 89
[2024-06-25] MEDS: Atorvastatin Calcium 80 MG Tablet PO (22:27)
[2024-06-25] MEDS: Senna/Docusate Sodium 1 Tablet PO (22:28)
[2024-06-25] MEDS: amLODIPine 10 MG Tablet PO (22:28)
[2024-06-26 05:46] VITALS: PULSE 88; O2SAT 93
[2024-06-26 06:16] LABS: Bedside Glucose 169 mg/dL (74-106)
[2024-06-26 06:20] LABS: Absolute Neutrophil Count 3.1 X10^3/uL (2.0-7.7); Basophil# 0.05 X10^3/uL; Eosinophil# 0.11 X10^3/uL; Eosinophils% 2.2 % (0-5); Hematocrit 36.7 % (37-47); Hemoglobin 11.2 g/dL (12.0-15.0); Lymphocyte % 27.7 % (19-41); Mean Corp Hgb Conc 30.5 g/dL (32-36); Mean Corpuscular Volume 78.6 fL (81-99); Mean Platelet Vol. 9.6 fl (6.2-12.0); Monocyte# 0.42 X10^3/uL; Monocyte% 8.3 % (0-10); NRBC Flagged by Analyzer 0 % (0-5); Neutrophil # 3.06 X10^3/uL (2.7-7.7); Neutrophil % 60.4 % (47-70); Platelet Count 207 K/mm3 (150-450); RBC Distribution Width CV 19.5 % (11.6-14.6); RBC Distribution Width SD 54.8 fl (35.1-43.9); Red Blood Count 4.67 M/mm3 (4.2-5.4); White Blood Count 5.1 K/mm3 (4.4-11.0)
[2024-06-26 07:14] LABS: Anion Gap 3 (5-15); BUN 31 mg/dL (7-18); BUN/Creat Ratio 37.1 RATIO (10-20); Calcium,Total 10.2 mg/dL (8.5-10.1); Chloride 110 mmol/L (98-107); Creatinine, Serum 0.84 mg/dL (0.55-1.02); EST Glomerular Filtration Rate 72 mL/min (>60); Est Glom Filt Rate - Afr Amer 87 mL/min (>60); Estimated Creatinine Clearance 83.25 ml/min; Glucose 182 mg/dL (74-106); Potassium 4.7 mmol/L (3.5-5.1); Sodium Level 139 mmol/L (136-145)
[2024-06-26 07:48] VITALS: BP 117/60; PULSE 79; RESP 16; TEMP 35.8; O2SAT 96
[2024-06-26] MEDS: Cholecalciferol (VIT D3) 25 MCG TABLET (1,000 UNITS) 50 MCG PO (07:51)
[2024-06-26] MEDS: Carvedilol 25 MG Tablet PO ×2 (07:51→21:35)
[2024-06-26] MEDS: Insulin Glargine-YFGN 100 UNIT/ML Pen 15 UNIT SC ×2 (07:52→21:35)
[2024-06-26] MEDS: Multivitamins,Therapeutic Tablet 1 TABLET PO (07:52)
[2024-06-26] MEDS: APIXABAN 5 MG TABLET PO ×2 (07:52→21:35)
[2024-06-26] MEDS: Pioglitazone Hydrochloride 15 MG Tablet PO (07:52)
[2024-06-26] MEDS: Nystatin Powder 15gm Bottle 1 APPLIC TOPICAL ×2 (07:53→21:36)
[2024-06-26] MEDS: Empagliflozin 25 MG Tablet PO (07:53)
[2024-06-26] MEDS: Lisinopril 40 MG Tablet PO (07:53)
[2024-06-26] MEDS: Pantoprazole Sodium 20 MG Tablet PO (07:54)
[2024-06-26] MEDS: Menthol/Lanolin/Calamine/Znox 113 GM Tube 1 APPLIC TOPICAL ×2 (07:54→21:36)
[2024-06-26] MEDS: Gabapentin 600 MG Tablet PO (07:57)
[2024-06-26 11:55] LABS: Bedside Glucose 273 mg/dL (74-106)
[2024-06-26 21:25] LABS: Bedside Glucose 347 mg/dL (74-106)
[2024-06-26 21:25] LABS: Bedside Glucose 288 mg/dL (74-106)
[2024-06-26] MEDS: Senna/Docusate Sodium 1 Tablet PO (21:35)
[2024-06-26] MEDS: Insulin Lispro 100 UNIT/ML INSULN.PEN SC (21:35)
[2024-06-26] MEDS: amLODIPine 10 MG Tablet PO (21:35)
[2024-06-26] MEDS: Atorvastatin Calcium 80 MG Tablet PO (21:35)
[2024-06-27 06:44] LABS: Bedside Glucose 189 mg/dL (74-106)
[2024-06-27 06:52] VITALS: PULSE 74; O2SAT 94
[2024-06-27 07:46] VITALS: BP 125/57; PULSE 85; RESP 18; TEMP 36.6; O2SAT 96
[2024-06-27] MEDS: Cholecalciferol (VIT D3) 25 MCG TABLET (1,000 UNITS) 50 MCG PO (07:51)
[2024-06-27] MEDS: Multivitamins,Therapeutic Tablet 1 TABLET PO (07:52)
[2024-06-27] MEDS: Empagliflozin 25 MG Tablet PO (07:52)
[2024-06-27] MEDS: Pantoprazole Sodium 20 MG Tablet PO (07:52)
[2024-06-27] MEDS: Pioglitazone Hydrochloride 15 MG Tablet PO (07:52)
[2024-06-27] MEDS: Lisinopril 40 MG Tablet PO (07:52)
[2024-06-27] MEDS: APIXABAN 5 MG TABLET PO (07:52)
[2024-06-27] MEDS: Carvedilol 25 MG Tablet PO (07:52)
[2024-06-27] MEDS: Nystatin Powder 15gm Bottle 1 APPLIC TOPICAL (07:53)
[2024-06-27] MEDS: Gabapentin 600 MG Tablet PO (07:53)
[2024-06-27] MEDS: Menthol/Lanolin/Calamine/Znox 113 GM Tube 1 APPLIC TOPICAL (07:54)
[2024-06-27] MEDS: Insulin Glargine-YFGN 100 UNIT/ML Pen 15 UNIT SC (07:57)
[2024-06-27 09:10] VITALS: BP 114/62; PULSE 79; RESP 16; TEMP 36.7; O2SAT 97
== END 2024-06-27 10:05 | disposition home health service (06) | DRG 690 ==
PROVIDERS: Admitting Provider Family Medicine Geriatric Medicine; PCP Family Medicine; Referring Provider Family Medicine Geriatric Medicine; Visit Provider Family Medicine Geriatric Medicine
DX: N10 Acute pyelonephritis (principal); Z68.41 Body mass index [BMI] 40.0-44.9, adult; Z16.12 Extended spectrum beta lactamase (ESBL) resistance; Z16.24 Resistance to multiple antibiotics; E11.42 Type 2 diabetes mellitus with diabetic polyneuropathy; B35.4 Tinea corporis; B96.20 Unspecified Escherichia coli [E. coli] as the cause of diseases classified elsewhere; E55.9 Vitamin D deficiency, unspecified; I48.91 Unspecified atrial fibrillation; I10 Essential (primary) hypertension; K21.9 Gastro-esophageal reflux disease without esophagitis; E78.5 Hyperlipidemia, unspecified; Z79.4 Long term (current) use of insulin; G47.33 Obstructive sleep apnea (adult) (pediatric); I87.8 Other specified disorders of veins; F09 Unspecified mental disorder due to known physiological condition; E66.9 Obesity, unspecified; Z79.84 Long term (current) use of oral hypoglycemic drugs; Z87.891 Personal history of nicotine dependence; N28.1 Cyst of kidney, acquired; Z79.899 Other long term (current) drug therapy; Z79.01 Long term (current) use of anticoagulants
CPT/HCPCS: 36415; 80048; 82962; 85025; 87811; 92523; 97110; 97116; 97129; 97130; 97162; 97166; 97530; 97535; 97802; J7040; A4216

== ENCOUNTER 2024-07-18 18:38 | Emergency (ER) | payer MEDICARE, MEDICAID, SELFPAY ==
[2024-07-18 18:40] VITALS: BP 107/48; PULSE 91; RESP 16; TEMP 36.4; O2SAT 98
[2024-07-18] MEDS: Acetaminophen 325 MG Tablet 650 MG PO (20:16)
--- NOTE | 2024-07-18 20:22 | ED.VIS.BACK ---
HPI <ASIA Costa - Last Filed: 07/18/24 21:37> History of Present Illness Chief Complaint: Back Narrative Narrative: Patient presenting today with low back pain that started this evening after she was carrying heavy groceries inside of her house and thinks that she pulled something in her lower back. She denies bowel/bladder incontinence, saddle paresthesia, urinary retention. She also reports that over the past few weeks she has had dysuria and urinary frequency and has concerns for a UTI. She reports a history of frequent UTIs. She also has a history of chronic low back pain and reports that her pain today feels similar to previous exacerbations. She has had no fevers or chills. She reports that she just got a phone for Written but is not sure how to work it and did not know how to call her doctor to schedule an appointment so she pressed her emergency button to have EMS bring her here for evaluation. She has a PMH of FLOR, atrial fibrillation, GERD, HTN, T2DM, and HLD. PFSH <ASIA Costa - Last Filed: 07/18/24 21:37> [facility] Medical History Neuropathic pain Essential (primary) hypertension Cognitive dysfunction ESBL (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 coli infection Wears glasses Former smoker Obesity Ambulates with cane Stroke/cerebrovascular accident Difficulty in walking Poor historian Recurrent incisional hernia with incarceration Incarcerated ventral hernia Obstructive sleep apnea Atrial fibrillation Intraventricular hemorrhage Embolic stroke GERD (gastroesophageal reflux disease) Obesity (BMI 30-39.9) Hyperlipidemia Hypertension Diabetes mellitus Home Medications ?Medication ?Instructions ?Recorded ?Last Taken ?Type omeprazole 20 mg capsule,delayed 20 mg PO DAILY GERd 05/29/14 06/08/24 History release amlodipine 10 mg tablet (Norvasc) 10 mg PO QHS HTN 10/04/16 06/07/24 History apixaban 5 mg tablet (Eliquis) 5 mg PO BID blood thinner 10/04/16 06/08/24 History atorvastatin 80 mg tablet 80 mg PO QHS Cholesterol 10/25/16 06/07/24 Rx lisinopril 40 mg tablet 40 mg PO DAILY HTN 10/25/16 06/08/24 Rx pioglitazone 15 mg tablet 15 mg PO DAILY DM #30 tabs 10/09/22 06/08/24 Rx gabapentin 600 mg tablet 600 mg PO QDAY Nerve Pain 01/01/24 06/08/24 History multivitamin with folic acid 400 1 tab PO DAILY Supplement 05/14/24 06/08/24 History mcg tablet (Daily-Levon (with folic acid)) carvedilol 25 mg tablet 25 mg PO BID BP #60 tabs 05/19/24 06/08/24 Rx cholecalciferol (vitamin D3) 50 50 mcg PO DAILY Supplement 06/08/24 06/08/24 History mcg (2,000 unit) capsule dapagliflozin propanediol 10 mg 10 mg PO DAILY #30 tabs 06/27/24 Unknown Rx tablet (Farxiga) insulin glargine 100 unit/mL (3 15 unit (0.15 mL) subcut BIDCM DM 06/27/24 Unknown Rx mL) subcutaneous pen (Lantus #5 pens Solostar U-100 Insulin) sennosides 8.6 mg-docusate sodium 1 tab PO BID #60 tabs 06/27/24 Unknown Rx 50 mg tablet (Stimulant Laxative Plus) Allergy/AdvReac Type Severity Reaction Status Date / Time iodine Allergy Mild Itching Verified 07/18/24 18:39 Penicillins Allergy Mild Itching Verified 07/18/24 18:39 Family History Father CVA (cerebral vascular accident) Mother Diabetes Stomach cancer Other High cholesterol Hypertension Surgical History History of cholecystectomy Hx of colonoscopy Status post debridement History of hysterectomy S/P repair of ventral hernia Social History household members: none Smoking Status: Former smoker alcohol intake: never substance use type: does not use caffeine: Yes what type of physical activity do you participate in: walking frequency: daily ROS <ASIA Costa - Last Filed: 07/18/24 21:37> ROS ED Constitutional Constitutional ED: Denies chills or fever(s) Cardiovascular Cardiovascular: Denies chest pain Respiratory/Chest Respiratory/Chest: Denies dyspnea Gastrointestinal Gastrointestinal: Denies abdominal pain, nausea or vomiting Genitourinary Genitourinary ED: Reports dysuria and urinary frequency; Denies hematuria Musculoskeletal Musculoskeletal: Reports back pain Integumentary Denies rash Neurologic Neurologic: Denies paresthesias or weakness EXAM <ASIA Costa - Last Filed: 07/18/24 21:37> Physical Exam Const Vital Signs: 07/18/24 18:40 Temperature 97.6 F L Temperature Source Oral Pulse Rate 91 Respiratory Rate 16 Blood Pressure 107/48 L Blood Pressure Mean 67 Pulse Ox 98 Oxygen Delivery Method Room Air Positive well nourished, well developed and no apparent distress General Appearance ED: well developed HEENT Reports normocephalic and head/scalp atraumatic Mouth ED: Yes moist mucous membranes normal Eyes PERRL and EOMs intact bilaterally Neck full ROM and supple Chest Wall inspection of chest normal Resp normal respiratory effort and clear to auscultation bilaterally Cardio regular rate and regular rhythm GI soft to palpation, non-tender, non-distended and no masses Back/Spine normal ROM and normal to inspection Back/Spine Narrative: No midline spinal tenderness, no step-offs, no surrounding erythema Extremity normal to inspection and full ROM Neuro oriented x3, CN's II-XII intact bilaterally, moves all extremities, no focal motor deficits and no sensory deficits noted Sensorium / Orientation: awake and alert Motor Exam: strength 5/5 throughout Psych mental status grossly normal and thought process normal Skin no rashes or lesions noted and no wounds <Dr. Meliton Rowley, - Last Filed: 07/19/24 00:25> Physical Exam Const Vital Signs: 07/18/24 18:40 Temperature 97.6 F L Temperature Source Oral Pulse Rate 91 Respiratory Rate 16 Blood Pressure 107/48 L Blood Pressure Mean 67 Pulse Ox 98 Oxygen Delivery Method Room Air MDM <ASIA Costa - Last Filed: 07/18/24 21:37> [facility] Narrative Medical decision making narrative: Patient presenting today with concerns for UTI. She has had dysuria and urinary frequency over the last few weeks. She was carrying groceries into her house and exacerbated her chronic low back pain this evening. She reports that the pain today feels similar to previous exacerbations. She has no midline tenderness. She does not have any symptoms of cauda equina syndrome. She is well-appearing and in no acute distress. I do not feel that any emergent imaging of her back is indicated. UA shows 500 leukocytes, nitrite negative, 5-10 squamous epithelial cells, rare bacteria, 25-50 WBCs. This is a contaminated specimen. We will hold off on treating her for UTI, it will be cultured. She was given Tylenol for her back pain and on reexamination reports improvement. She is ambulating without difficulty. She can take Tylenol for pain at home as needed. I recommended she follow-up with her PCP. She will be discharged home in stable condition. Lab Data Attestation: I reviewed the patient's lab results. Labs: Laboratory Results - last 24 hr 07/18/24 19:55 Urine Color Yellow Urine Clarity Clear Urine pH 6.0 Ur Specific Hildreth 1.015 Urine Protein Negative Urine Glucose (UA) 1000 H Urine Ketones Negative Urine Occult Blood Negative Urine Nitrite Negative Urine Bilirubin Negative Urine Urobilinogen Normal Ur Leukocyte Esterase 500 H Urine RBC 0 SEEN Urine WBC 25-50 SEEN Ur Squamous Epith Cells 5-10 SEEN Urine Bacteria RARE WBC Casts 0-5 SEEN Urine Mucus 0 SEEN <Dr. Meliton Rowley, DO - Last Filed: 07/19/24 00:25> [facility] MDM Narrative Medical decision making narrative: Patient presenting today with concerns for UTI. She has had dysuria and urinary frequency over the last few weeks. She was carrying groceries into her house and exacerbated her chronic low back pain this evening. She reports that the pain today feels similar to previous exacerbations. She has no midline tenderness. She does not have any symptoms of cauda equina syndrome. She is well-appearing and in no acute distress. I do not feel that any emergent imaging of her back is indicated. UA shows 500 leukocytes, nitrite negative, 5-10 squamous epithelial cells, rare bacteria, 25-50 WBCs. This is a contaminated specimen. We will hold off on treating her for UTI, it will be cultured. She was given Tylenol for her back pain and on reexamination reports improvement. She is ambulating without difficulty. She can take Tylenol for pain at home as needed. I recommended she follow-up with her PCP. She will be discharged home in stable condition. I have personally performed a face to face assessment of the patient and have reviewed the LEON Note. I performed a substantive portion of the visit including all aspects of the following. My ahn findings include: History is patient presenting with low back pain after carrying groceries into her house. She is unable to call for primary care appointment because she got a new phone and did not a work it. So she used the emergency button on her phone and brought her to the emergency department. She is also wondering if she may have a UTI. Exam is mild tenderness palpation of the lumbar paraspinal musculature. She is neurovascularly intact. Morbidly obese. No apparent distress. Medical Decison Making clinically I think is musculoskeletal back pain. We can treat conservatively. The urinalysis shows some contamination 5-10 squamous cells 25-50 white cells negative nitrates and rare bacteria this could be sent for culture. Patient was instructed to work with her family to get her phone operable and to follow-up with primary care if not improving History & Record Review Discussion w/independent historian: Patient Lab Data Labs: Laboratory Results - last 24 hr 07/18/24 19:55 Urine Color Yellow Urine Clarity Clear Urine pH 6.0 Ur Specific Hildreth 1.015 Urine Protein Negative Urine Glucose (UA) 1000 H Urine Ketones Negative Urine Occult Blood Negative Urine Nitrite Negative Urine Bilirubin Negative Urine Urobilinogen Normal Ur Leukocyte Esterase 500 H Urine RBC 0 SEEN Urine WBC 25-50 SEEN Ur Squamous Epith Cells 5-10 SEEN Urine Bacteria RARE WBC Casts 0-5 SEEN Urine Mucus 0 SEEN Discharge Plan Triage Chief Complaint: Back Other Complaint: Complaint ED Midlevel Provider: Allyssa Goldstein ED Provider: Meliton Rowley Dx/Rx/DC Orders Clinical Impression: Low back strain Instructions: ED Back Sprain/Strain Prescriptions: No Action gabapentin 600 mg tablet 600 mg PO QDAY omeprazole 20 MG capsule 20 mg PO DAILY amlodipine [Norvasc] 10 MG tablet 10 mg PO QHS Eliquis 5 MG tablet 5 mg PO BID atorvastatin 80 MG tablet 80 mg PO QHS 0RF lisinopril 40 MG tablet 40 mg PO DAILY 0RF sennosides-docusate sodium [Stimulant Laxative Plus] 8.6-50 mg Tablet 1 tab PO BID Qty: 60 0RF dapagliflozin propanediol [Farxiga] 10 mg tablet 10 mg PO DAILY Qty: 30 0RF insulin glargine [Lantus Solostar U-100 Insulin] 100 unit/mL (3 mL) insulin pen 15 unit subcut BIDCM Qty: 5 0RF multivitamin with folic acid [Daily-Levon (with folic acid)] 400 mcg tablet 1 tab PO DAILY carvedilol 25 mg tablet 25 mg PO BID Qty: 60 0RF Rx Instructions: must administer with a meal/food cholecalciferol (vitamin D3) 50 mcg (2,000 unit) capsule 50 mcg PO DAILY pioglitazone 15 mg tablet 15 mg PO DAILY Qty: 30 3RF Primary Care Provider: Dennis Pelayo Referrals: Dennis Pelayo DO [Primary Care Provider] - 5-7 Days Activity Restrictions/Additional Instructions: Follow-up with your PCP, return for any other concerns. Take Tylenol for your pain as needed. Print Language: Ukrainian Disposition Disposition: Home, Self Care Discharge Date/Time: 07/18/24 21:31
[2024-07-18 20:26] LABS: Mucous, Urine 0 SEEN /hpf (<or=2+); Red Blood Cells-Urine 0 SEEN /hpf (0-5)
[2024-07-18 20:55] LABS: Color, Urine Yellow (Yellow); Glucose, Dipstick 1000 mg/dl (Normal); Ketone-Dipstick Negative (Negative); Leukocyte Esterase-Dipstick 500 /ul (Negative); Nitrite-Dipstick Negative (Negative); Occult Blood-Urine Negative /ul (Negative); Protein-Dipstick Negative (Negative); Specific Gravity, Urine 1.015 (1.002-1.030); Urine Bilirubin Dipstick Negative (Negative); Urine Clarity Clear (Clear); Urine Urobilinogen Normal (Normal)
[2024-07-18 21:16] LABS: Bacteria RARE /hpf (None Seen); Squamous Epithelial Cells - UA 5-10 SEEN /hpf (5-10); White Blood Cells 25-50 SEEN /hpf (0-5); White Cell Cast 0-5 SEEN /lpf (None Seen)
--- NOTE | 2024-07-18 21:50 | ED.RN ---
CALLED [facility] FOR PT. ETA IS [id number]
== END 2024-07-18 21:31 | disposition home or self-care (01) ==
PROVIDERS: Physician Assistant; Emergency Provider Emergency Medicine; PCP Family Medicine; Visit Provider Emergency Medicine
DX: S39.012A Strain of muscle, fascia and tendon of lower back, initial encounter (principal); I48.91 Unspecified atrial fibrillation; E66.01 Morbid (severe) obesity due to excess calories; E11.9 Type 2 diabetes mellitus without complications; Z79.4 Long term (current) use of insulin; E78.5 Hyperlipidemia, unspecified; I10 Essential (primary) hypertension; R35.0 Frequency of micturition; Z87.891 Personal history of nicotine dependence; Z90.710 Acquired absence of both cervix and uterus; X50.9XXA Other and unspecified overexertion or strenuous movements or postures, initial encounter; Y93.89 Activity, other specified; Y92.019 Unspecified place in single-family (private) house as the place of occurrence of the external cause; Z86.718 Personal history of other venous thrombosis and embolism; Z86.73 Personal history of transient ischemic attack (TIA), and cerebral infarction without residual deficits; Z79.899 Other long term (current) drug therapy; Z79.01 Long term (current) use of anticoagulants; K21.9 Gastro-esophageal reflux disease without esophagitis; Z90.49 Acquired absence of other specified parts of digestive tract; R30.0 Dysuria
CPT/HCPCS: 81001; 87086; 87088; 99285

== ENCOUNTER 2024-08-04 18:34 | Emergency (ER) | payer MEDICARE, MEDICAID, SELFPAY ==
[2024-08-04 18:35] VITALS: BP 113/57; PULSE 92; RESP 19; TEMP 36.7; O2SAT 95; BMI 42.4
--- NOTE | 2024-08-04 19:15 | EDS_ITS ---
HPI HPI - GI History of Present Illness Chief Complaint: Abd Pain Informant: patient Narrative Narrative: 58-year-old female states for the past week she has been having diffuse periumbilical abdominal pain, feels like severe cramping, vomiting, diarrhea without any blood that she has noticed. Started with vomiting. Then diarrhea, then pain in that order. No fevers or chills. Lives by herself has not been around anybody else who has been sick that she knows of. No recent antibiotics for anything. No known history of C. difficile. Denies any recent uncooked meats or raw fish or suspicious food intake that she can think of. She is a very poor historian. She thinks that the number of times she has had vomiting and diarrhea daily is over 10. [facility] Medical History Neuropathic pain Essential (primary) hypertension Cognitive dysfunction ESBL (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 coli infection Wears glasses Former smoker Obesity Ambulates with cane Stroke/cerebrovascular accident Difficulty in walking Poor historian Recurrent incisional hernia with incarceration Incarcerated ventral hernia Obstructive sleep apnea Atrial fibrillation Intraventricular hemorrhage Embolic stroke GERD (gastroesophageal reflux disease) Obesity (BMI 30-39.9) Hyperlipidemia Hypertension Diabetes mellitus Home Medications ?Medication ?Instructions ?Recorded ?Last Taken ?Type omeprazole 20 mg capsule,delayed 20 mg PO DAILY GERd 05/29/14 06/08/24 History release amlodipine 10 mg tablet (Norvasc) 10 mg PO QHS HTN 10/04/16 06/07/24 History apixaban 5 mg tablet (Eliquis) 5 mg PO BID blood thinner 10/04/16 06/08/24 History atorvastatin 80 mg tablet 80 mg PO QHS Cholesterol 10/25/16 06/07/24 Rx lisinopril 40 mg tablet 40 mg PO DAILY HTN 10/25/16 06/08/24 Rx pioglitazone 15 mg tablet 15 mg PO DAILY DM #30 tabs 10/09/22 06/08/24 Rx gabapentin 600 mg tablet 600 mg PO QDAY Nerve Pain 01/01/24 06/08/24 History multivitamin with folic acid 400 1 tab PO DAILY Supplement 05/14/24 06/08/24 History mcg tablet (Daily-Levon (with folic acid)) carvedilol 25 mg tablet 25 mg PO BID BP #60 tabs 05/19/24 06/08/24 Rx cholecalciferol (vitamin D3) 50 50 mcg PO DAILY Supplement 06/08/24 06/08/24 History mcg (2,000 unit) capsule dapagliflozin propanediol 10 mg 10 mg PO DAILY #30 tabs 06/27/24 Unknown Rx tablet (Farxiga) insulin glargine 100 unit/mL (3 15 unit (0.15 mL) subcut BIDCM DM 06/27/24 Unknown Rx mL) subcutaneous pen (Lantus #5 pens Solostar U-100 Insulin) sennosides 8.6 mg-docusate sodium 1 tab PO BID #60 tabs 06/27/24 Unknown Rx 50 mg tablet (Stimulant Laxative Plus) ondansetron 8 mg disintegrating 8 mg PO Q8H PRN nausea and 08/04/24 Unknown Rx tablet vomiting #15 tabs Allergy/AdvReac Type Severity Reaction Status Date / Time iodine Allergy Mild Itching Verified 07/18/24 18:39 Penicillins Allergy Mild Itching Verified 07/18/24 18:39 Family History Father CVA (cerebral vascular accident) Mother Diabetes Stomach cancer Other High cholesterol Hypertension Surgical History History of cholecystectomy Hx of colonoscopy Status post debridement History of hysterectomy S/P repair of ventral hernia Social History household members: none Smoking Status: Former smoker alcohol intake: never substance use type: does not use caffeine: Yes what type of physical activity do you participate in: walking frequency: daily ROS ROS ED Constitutional Constitutional ED: Reports malaise; Denies chills or fever(s) Eyes Eyes: Denies change in vision or diplopia ENT ENT ED: Denies rhinorrhea or sore throat Cardiovascular Cardiovascular: Denies chest pain or palpitations Respiratory/Chest Respiratory/Chest: Denies cough or dyspnea Gastrointestinal Gastrointestinal: Reports abdominal pain, diarrhea, nausea and vomiting Genitourinary Genitourinary ED: Denies dysuria or hematuria Musculoskeletal Musculoskeletal: Denies back pain or neck pain Integumentary Denies abscess or rash Neurologic Neurologic: Denies headache(s), paresthesias or weakness EXAM Physical Exam Const Vital Signs: 08/04/24 18:35 08/04/24 20:34 08/04/24 22:00 Temperature 98.1 F Temperature Source Oral Pulse Rate 92 61 92 Respiratory Rate 19 H 18 18 Blood Pressure 113/57 L 135/93 H 112/63 Blood Pressure Mean 75 107 79 Pulse Ox 95 95 94 Oxygen Delivery Method Room Air Room Air Room Air 08/04/24 22:47 Temperature 98.0 F Temperature Source Pulse Rate 92 Respiratory Rate 18 Blood Pressure 122/57 H Blood Pressure Mean 78 Pulse Ox 94 Oxygen Delivery Method Positive well nourished, well developed and obese General Appearance ED: well developed and NAD Nutritional Appearance: obese HEENT Reports moist mucous membranes normocephalic and atraumatic Eyes PERRL and EOMs intact bilaterally Neck full ROM and supple Resp normal respiratory effort and clear to auscultation bilaterally Cardio regular rate, regular rhythm and no murmurs Rate: Negative for tachycardic GI non-distended GI Narrative: Diffusely tender more prominent in the left lower medial abdomen. No palpable mass, no palpable hernias, but obesity limits the exam. Several well-healed surgical scars. Auscultation: hyperactive bowel sounds Palpation: soft Back/Spine no CVA tenderness General Back: other FROM Extremity normal to inspection General Extremety ED: Yes edema; Negative for pulses abnormal or tenderness General Extremity: edema bilateral lower extremity Details: moderate (With changes of chronic stasis dermatitis); Negative for pulses abnormal Neuro CN's II-XII intact bilaterally and no sensory deficits noted Sensorium / Orientation: awake and alert Motor Exam: general weakness Skin no rashes or lesions noted and no wounds MDM MDM MDM Narrative Medical decision making narrative: Given history of hernia diffuse abdominal tenderness, obtained a CT, I was mostly concerned for diverticulitis because she was mostly tender in the left lower quadrant, I reviewed the images and the report which I agree with, it does not show diverticulitis but it shows that there is a ventral hernia containing some small intestine and some suspicion for possibility of a partial obstruction. However after treating the patient with IV fluids, Zofran, she states he is feeling much better, she is tolerating oral fluids, and on reexamination I can feel that hernia and it is easily reducible and nontender. Therefore I do not think there is a bowel obstruction or need for emergent surgical consultation. Patient states she wants to go home despite continued to have diarrhea here which we were unable to get a specimen to send. She has mild creatinine elevation but it still only 1.15, so if she wants to go home and her vital signs are as normal as they are with a blood pressure 122/57 heart rate 92, I am comfortable with that. Prescribed Zofran, discussed reasons to return. Lab Data Attestation: I reviewed the patient's lab results. Labs: Laboratory Results - last 24 hr 08/04/24 18:40 WBC 9.0 RBC 5.36 Hgb 12.8 Hct 43.1 MCV 80.4 L MCH 23.9 L MCHC 29.7 L RDW Std Deviation 54.4 H RDW Coeff of Faby 19.6 H Plt Count 269 MPV 9.4 Immature Gran % (Auto) 1.000 H Neut % (Auto) 71.1 H Lymph % (Auto) 18.1 L Kern % (Auto) 8.6 Eos % (Auto) 0.8 Baso % (Auto) 0.4 Absolute Neuts (auto) 6.4 Absolute Lymphs (auto) 1.63 Nucleated RBC % 0 Sodium 138 Potassium 3.8 Chloride 99 Carbon Dioxide 33.0 H Anion Gap 6 BUN 33 H Creatinine 1.15 H Estim Creat Clear Calc 60.71 Est GFR (MDRD) Af Amer 60 Est GFR (MDRD) Non-Af 50 L BUN/Creatinine Ratio 28.7 H Glucose 187 H Calcium 10.5 H Total Bilirubin 0.40 AST 12 L ALT 19 Alkaline Phosphatase 125 H Total Protein 7.7 Albumin 3.2 Globulin 4.5 H Albumin/Globulin Ratio 0.7 L Radiography Diagnostic Testing: Clinical Impression(s) from Imaging Studies Abdomen/Pelvis CT 08/04/24 19:15 IMPRESSION: Postoperative change. Abdominal wall hernia containing small intestine with mild distention suggesting partial obstruction. Electronically Signed: Ricci Johns MD at 21:26 EST , Discharge Plan Triage Chief Complaint: Abd Pain ED Provider: Ricci Zhou Dx/Rx/DC Orders Clinical Impression: Gastroenteritis, Ventral hernia, Mild dehydration Instructions: Viral Gastroenteritis Prescriptions: New ondansetron 8 mg tablet,disintegrating 8 mg PO Q8H PRN (Reason: nausea and vomiting) Qty: 15 0RF No Action gabapentin 600 mg tablet 600 mg PO QDAY omeprazole 20 MG capsule 20 mg PO DAILY amlodipine [Norvasc] 10 MG tablet 10 mg PO QHS Eliquis 5 MG tablet 5 mg PO BID atorvastatin 80 MG tablet 80 mg PO QHS 0RF lisinopril 40 MG tablet 40 mg PO DAILY 0RF sennosides-docusate sodium [Stimulant Laxative Plus] 8.6-50 mg Tablet 1 tab PO BID Qty: 60 0RF dapagliflozin propanediol [Farxiga] 10 mg tablet 10 mg PO DAILY Qty: 30 0RF insulin glargine [Lantus Solostar U-100 Insulin] 100 unit/mL (3 mL) insulin pen 15 unit subcut BIDCM Qty: 5 0RF multivitamin with folic acid [Daily-Levon (with folic acid)] 400 mcg tablet 1 tab PO DAILY carvedilol 25 mg tablet 25 mg PO BID Qty: 60 0RF Rx Instructions: must administer with a meal/food cholecalciferol (vitamin D3) 50 mcg (2,000 unit) capsule 50 mcg PO DAILY pioglitazone 15 mg tablet 15 mg PO DAILY Qty: 30 3RF Primary Care Provider: Dennis Pelayo Referrals: Dennis Pelayo DO [Primary Care Provider] - 3-5 Days if not improving Print Language: Anguillan Disposition Disposition: Home, Self Care
--- NOTE | 2024-08-04 19:15 | CT_ITS ---
STUDY: CT ABDOMEN AND PELVIS WITHOUT CONTRAST REASON FOR EXAM: Female, 68 years old. Diffuse pain, vomiting RADIATION DOSAGE (If Supplied By Facility): CTDIvol = ( 23.85 ) mGy, DLP = ( 1996.82 ) mGycm TECHNIQUE: Transaxial images were obtained from the dome of the diaphragm to the symphysis pubis without oral contrast, and without intravenous contrast. Sagittal and coronal images were reconstructed. The right lateral aspect extends beyond the field of view Individualized dose optimization techniques were used for this CT. COMPARISON: June 10, 2024 FINDINGS: The visualized lung bases are unremarkable. The visualized portions of the heart are within normal limits. Normal liver. Normal gallbladder and extrahepatic biliary system. Normal spleen. Normal pancreas. Normal bilateral adrenal glands. There is 4.6 cm increased density cyst of the right kidney. Normal left kidney. Normal visualized stomach. There is postoperative change of small intestine. There is abdominal wall hernia containing small intestine. There is mild distention of loops of small intestine. There is postoperative change of the sigmoid colon. There is non-visualization of the appendix. There is diffuse atherosclerotic calcification of the abdominal aorta, without a demonstrated aneurysm. Normal inferior vena cava. Normal retroperitoneum. Normal urinary bladder. There is absence of the uterus consistent with a prior hysterectomy. There is no free fluid in the abdomen or pelvis. There is postoperative changes are abdominal wall. There is degenerative change of the spine. CT/Abdomen/Pelvis without Cont IMPRESSION: Postoperative change. Abdominal wall hernia containing small intestine with mild distention suggesting partial obstruction. Electronically Signed: Ricci Johns MD at 21:26 EST ,
[2024-08-04] MEDS: Dicyclomine 10 MG Capsule 20 MG PO (19:23)
[2024-08-04] MEDS: Ondansetron 4 MG/2 ML Vial IV (19:23)
[2024-08-04] MEDS: 0.9% Normal Saline (1000mL) 1,000 ML 999 ML IV (19:23)
[2024-08-04 19:42] LABS: Absolute Lymphocyte Count 1.63 X10^3/uL (0.83-4.51); Absolute Neutrophil Count 6.4 X10^3/uL (2.0-7.7); Basophil# 0.04 X10^3/uL; Basophil% 0.4 % (0-1); Eosinophil# 0.07 X10^3/uL; Eosinophils% 0.8 % (0-5); Hematocrit 43.1 % (37-47); Hemoglobin 12.8 g/dL (12.0-15.0); Lymphocyte # 1.63 X10^3/ul (0.83-4.51); Lymphocyte % 18.1 % (19-41); Mean Corp Hgb Conc 29.7 g/dL (32-36); Mean Corpuscular Hgb 23.9 pg (27.0-32.0); Mean Corpuscular Volume 80.4 fL (81-99); Mean Platelet Vol. 9.4 fl (6.2-12.0); Monocyte# 0.78 X10^3/uL; Monocyte% 8.6 % (0-10); NRBC Flagged by Analyzer 0 % (0-5); Neutrophil # 6.41 X10^3/uL (2.7-7.7); Neutrophil % 71.1 % (47-70); Platelet Count 269 K/mm3 (150-450); RBC Distribution Width CV 19.6 % (11.6-14.6); RBC Distribution Width SD 54.4 fl (35.1-43.9); Red Blood Count 5.36 M/mm3 (4.2-5.4)
[2024-08-04 20:03] LABS: ALB/GLOB Ratio 0.7 RATIO (0.9-2.4); AST(SGOT) 12 U/L (15-37); Alanine Aminotransfer ALT/SGPT 19 U/L (13-56); Albumin, Serum 3.2 g/dL (3.2-5.0); Alkaline Phosphatase 125 U/L (45-117); Anion Gap 6 (5-15); BUN 33 mg/dL (7-18); BUN/Creat Ratio 28.7 RATIO (10-20); Calcium,Total 10.5 mg/dL (8.5-10.1); Chloride 99 mmol/L (98-107); Creatinine, Serum 1.15 mg/dL (0.55-1.02); EST Glomerular Filtration Rate 50 mL/min (>60); Est Glom Filt Rate - Afr Amer 60 mL/min (>60); Estimated Creatinine Clearance 60.71 ml/min; Globulin 4.5 g/dL (2.2-4.2); Glucose 187 mg/dL (74-106); Potassium 3.8 mmol/L (3.5-5.1); Protein, Total 7.7 g/dL (6.4-8.2); Sodium Level 138 mmol/L (136-145)
[2024-08-04 20:34] VITALS: BP 135/93; PULSE 61; RESP 18; O2SAT 95
[2024-08-04] MEDS: Loperamide 2 MG Capsule 4 MG PO (21:00)
[2024-08-04 22:00] VITALS: BP 112/63; PULSE 92; RESP 18; O2SAT 94
[2024-08-04 22:47] VITALS: BP 122/57; PULSE 92; RESP 18; TEMP 36.7; O2SAT 94
== END 2024-08-04 23:01 | disposition home or self-care (01) ==
PROVIDERS: Emergency Provider Emergency Medicine; PCP Family Medicine; Referring Provider Emergency Medicine; Visit Provider Emergency Medicine
DX: R10.9 Unspecified abdominal pain (principal); I48.91 Unspecified atrial fibrillation; E11.9 Type 2 diabetes mellitus without complications; Z79.4 Long term (current) use of insulin; K52.9 Noninfective gastroenteritis and colitis, unspecified; Z87.891 Personal history of nicotine dependence; I10 Essential (primary) hypertension; K43.9 Ventral hernia without obstruction or gangrene; E78.5 Hyperlipidemia, unspecified; E86.0 Dehydration; Z86.73 Personal history of transient ischemic attack (TIA), and cerebral infarction without residual deficits; K21.9 Gastro-esophageal reflux disease without esophagitis; Z79.899 Other long term (current) drug therapy; Z79.01 Long term (current) use of anticoagulants; Z90.49 Acquired absence of other specified parts of digestive tract; Z90.710 Acquired absence of both cervix and uterus
CPT/HCPCS: 74176; 80053; 85025; 96361; 96374; 99285; A4216; J2405

== ENCOUNTER 2024-08-12 04:30 | Inpatient (IN) | payer MEDICARE, MEDICAID, SELFPAY ==
[2024-08-12] VITALS (8 sets, daily range): BP systolic 101–137; BP diastolic 46–62; PULSE 82–137; RESP 16–20; TEMP 35.9–36.9; O2SAT 92–96; BMI 41.1
--- NOTE | 2024-08-12 04:42 | ED.VIS.GI ---
HPI HPI - GI History of Present Illness Chief Complaint: Abd Pain Informant: patient Abdominal Pain/Flank Pain Onset: Today and Hours Context: Gradual Onset Timing: Continuous Quality: Cramping Location: Diffuse Current Severity: Moderate Maximum Severity: Moderate Worsened by: Nothing Relieved by: Nothing Nausea/Vomiting/Emesis GI Symptom: Positive for - (Patient denies nausea or vomiting.); Negative for Nausea or Vomiting Diarrhea/Melena/Hematochezia GI Symptom: Positive for - (Patient denies diarrhea or constipation. No melena.); Negative for Diarrhea, Melena or Hematochezia Associated Symptoms Associated Symptoms: Positive for Frequency; Negative for Dysuria, Hematuria or Urgency Narrative Narrative: 68-year-old female extensive past medical history including hypertension, prior stroke, prior hernia repair and hysterectomy. They have listed a prior cholecystectomy the patient denies. Also history of diabetes and A-fib on Eliquis. States about 2 hours ago developed abdominal pain she describes as diffuse. She denies any nausea or vomiting. She denies any diarrhea or constipation. She denies any fever or dysuria. States that she is having bowel movements. Prior similar symptoms: Yes Recent Illness/Hospitalization: Yes [facility] Medical History Neuropathic pain Essential (primary) hypertension Cognitive dysfunction ESBL (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 coli infection Wears glasses Former smoker Obesity Ambulates with cane Stroke/cerebrovascular accident Difficulty in walking Poor historian Recurrent incisional hernia with incarceration Incarcerated ventral hernia Obstructive sleep apnea Atrial fibrillation Intraventricular hemorrhage Embolic stroke GERD (gastroesophageal reflux disease) Obesity (BMI 30-39.9) Hyperlipidemia Hypertension Diabetes mellitus Home Medications ?Medication ?Instructions ?Recorded ?Last Taken ?Type omeprazole 20 mg capsule,delayed 20 mg PO DAILY GERd 05/29/14 06/08/24 History release amlodipine 10 mg tablet (Norvasc) 10 mg PO QHS HTN 10/04/16 06/07/24 History apixaban 5 mg tablet (Eliquis) 5 mg PO BID blood thinner 10/04/16 06/08/24 History atorvastatin 80 mg tablet 80 mg PO QHS Cholesterol 10/25/16 06/07/24 Rx lisinopril 40 mg tablet 40 mg PO DAILY HTN 10/25/16 06/08/24 Rx pioglitazone 15 mg tablet 15 mg PO DAILY DM #30 tabs 10/09/22 06/08/24 Rx gabapentin 600 mg tablet 600 mg PO QDAY Nerve Pain 01/01/24 06/08/24 History multivitamin with folic acid 400 1 tab PO DAILY Supplement 05/14/24 06/08/24 History mcg tablet (Daily-Levon (with folic acid)) carvedilol 25 mg tablet 25 mg PO BID BP #60 tabs 05/19/24 06/08/24 Rx cholecalciferol (vitamin D3) 50 50 mcg PO DAILY Supplement 06/08/24 06/08/24 History mcg (2,000 unit) capsule dapagliflozin propanediol 10 mg 10 mg PO DAILY #30 tabs 06/27/24 Unknown Rx tablet (Farxiga) insulin glargine 100 unit/mL (3 15 unit (0.15 mL) subcut BIDCM DM 06/27/24 Unknown Rx mL) subcutaneous pen (Lantus #5 pens Solostar U-100 Insulin) sennosides 8.6 mg-docusate sodium 1 tab PO BID #60 tabs 06/27/24 Unknown Rx 50 mg tablet (Stimulant Laxative Plus) ondansetron 8 mg disintegrating 8 mg PO Q8H PRN nausea and 08/04/24 Unknown Rx tablet vomiting #15 tabs Allergy/AdvReac Type Severity Reaction Status Date / Time iodine Allergy Mild Itching Verified 08/12/24 04:35 Penicillins Allergy Mild Itching Verified 08/12/24 04:35 Family History Father CVA (cerebral vascular accident) Mother Diabetes Stomach cancer Other High cholesterol Hypertension Surgical History History of cholecystectomy Hx of colonoscopy Status post debridement History of hysterectomy S/P repair of ventral hernia Social History household members: none Smoking Status: Former smoker alcohol intake: never substance use type: does not use caffeine: Yes what type of physical activity do you participate in: walking frequency: daily ROS ROS ED ROS Narrative Abdominal pain. Denies nausea, vomiting, diarrhea or constipation. No dysuria. Constitutional Constitutional ED: Denies chills ENT ENT ED: Denies ear pain Cardiovascular Cardiovascular: Denies chest pain Respiratory/Chest Respiratory/Chest: Denies cough or dyspnea Gastrointestinal Gastrointestinal: Reports abdominal pain; Denies constipation, diarrhea, melena, nausea or vomiting Genitourinary Genitourinary ED: Denies dysuria or hematuria Musculoskeletal Musculoskeletal: Denies arthralgias or back pain Integumentary Denies abscess Neurologic Neurologic: Denies headache(s) Psychiatric Psychiatric: Denies anxiety Endocrine Endocrinology: Denies polydipsia Hematologic/Lymphatic Hematologic/Lymphatic: Denies lymphadenopathy Allergic/Immunologic Allergic/Immunologic ED: Denies mouth swelling, tongue swelling or urticaria EXAM Physical Exam Narrative Exam Narrative: 68-year-old female no acute distress. Vital signs are stable afebrile. H EENT exam pupils round reactive light. Moist mucous membranes. No facial droop. No trauma. Neck nontender no lymphadenopathy. Lungs clear to auscultation bilaterally. Heart regular rate and rhythm rate about 90 no murmur. Chest wall ribs nontender. Abdomen soft. Obese. Tender. She has a reducible ventral hernia. No peritoneal signs. She does have bowel sounds. Moving all 4 extremities. Nontender no edema. Normal strength. Back nontender. Neurologically she is awake alert. Answering questions following commands. Const Vital Signs: 08/12/24 04:31 08/12/24 06:30 Temperature 98.5 F Temperature Source Oral Pulse Rate 92 Respiratory Rate 18 16 Blood Pressure 110/59 L Blood Pressure Mean 76 Pulse Ox 94 Oxygen Delivery Method Room Air Positive well nourished, well developed and obese; Negative for cachectic, contractures or unkempt General Appearance ED: well developed and NAD; Negative for unkempt, cachectic, contractures or pallor Nutritional Appearance: obese; Negative for cachectic HEENT Reports moist mucous membranes normocephalic and atraumatic Eyes PERRL and EOMs intact bilaterally Neck no lymphadenopathy, supple and no JVD Resp normal respiratory effort and clear to auscultation bilaterally Cardio regular rate, regular rhythm, S1 normal heart sound, S2 normal heart sound and no murmurs GI non-distended and no masses; Negative for non-tender GI Narrative: Ventral hernia. Reducible. Tender. Auscultation: normoactive bowel sounds Palpation: soft, tender and hernia; Negative for guarding, rigid, hepatomegaly, splenomegaly, mass, pulsatile mass or rebound tenderness present Back/Spine no CVA tenderness General Back: Negative for CVA tenderness Cervical Spine: Negative for cervical spine tenderness Thoracic Spine / Upper Back: Negative for thoracic spinal tenderness Lumbar Spine / Lower Back: Negative for lumbar spinal tenderness Extremity full ROM General Extremety ED: Negative for edema or tenderness General Extremity: Negative for edema Neuro CN's II-XII intact bilaterally and moves all extremities Sensorium / Orientation: alert, oriented to person, oriented to place and oriented to time Motor Exam: strength 5/5 throughout Psych mental status grossly normal and thought process normal Appearance: Negative for unkempt Attitude: No agitated Mood & Affect: Negative for depressed, anxious or tearful Skin no wounds General Skin Exam: Negative for jaundice or pallor Lesions: no lesions Rashes: no rashes Trauma: Negative for abrasion MDM MDM MDM Narrative Medical decision making narrative: 68-year-old female complaint of abdominal pain without known ventral hernia. CAT scan labs are pending. She will be given IV morphine and Zofran for pain. She has an allergy to CAT scan dye this will be done without contrast. She has had prior CAT scans done without contrast. Differential would include bowel obstruction, abdominal pain from her hernia, UTI etc. Repeat exam currently the patient is doing well at 7:03 AM. Abdomen is benign. She is not having any reproducible pain to palpation. She did have a liquid bowel movement here. CAT scan read discusses her periumbilical hernia which she knows she has with possibly small bowel obstruction. Clinically her exam is not consistent with an obstruction at this time. I spoke to our general surgeon on-call Dr. Vargas Shirley. He reviewed her CAT scan. Due to the possibility of a early small bowel obstruction will admit her for observation to the hospitalist and further evaluation. History & Record Review Discussion w/independent historian: Patient Additional record(s) reviewed:: Prior inpatient record, Prior outpatient record, Prior ED visit and Prior labs Lab Data Attestation: I reviewed the patient's lab results. Lab results narrative: CBC shows a normal white count of 10. H&H 13 and 43. Platelets 261. Chemistry shows sodium 135. Gap 1. BUN of 19 creatinine 1. Liver enzymes unremarkable. Lipase normal at 71. Labs: Laboratory Results - last 24 hr 08/12/24 04:50 WBC 10.0 RBC 5.41 H Hgb 13.0 Hct 43.1 MCV 79.7 L MCH 24.0 L MCHC 30.2 L RDW Std Deviation 52.9 H RDW Coeff of Faby 19.0 H Plt Count 261 MPV 8.6 Immature Gran % (Auto) 0.600 Neut % (Auto) 79.4 H Lymph % (Auto) 13.6 L [place] % (Auto) 5.2 Eos % (Auto) 0.7 Baso % (Auto) 0.5 Absolute Neuts (auto) 8.0 H Absolute Lymphs (auto) 1.36 Nucleated RBC % 0 Sodium 135 L Potassium 4.4 Chloride 105 Carbon Dioxide 29.0 Anion Gap 1 L BUN 19 H Creatinine 1.01 Estim Creat Clear Calc 67.87 Est GFR (MDRD) Af Amer 70 Est GFR (MDRD) Non-Af 58 L BUN/Creatinine Ratio 18.8 Glucose 185 H Calcium 10.8 H Total Bilirubin 0.60 AST 23 ALT 24 Alkaline Phosphatase 114 Total Protein 7.6 Albumin 2.9 L Globulin 4.7 H Albumin/Globulin Ratio 0.6 L Lipase 71 Radiography Diagnostic Testing: Clinical Impression(s) from Imaging Studies Abdomen/Pelvis CT 08/12/24 04:43 IMPRESSION: 1. Periumbilical hernia containing small bowel with findings that can be seen with incarceration. Secondary distal small bowel obstruction with increased bowel dilatation compared to the prior study. 2. Right exophytic renal lesion is essentially stable, but not fully characterized on this study. Electronically Signed: Suzanna Patel MD at 6:53 EST , Discharge Plan Triage Chief Complaint: Abd Pain ED Provider: Shaheen Roy Dx/Rx/DC Orders Clinical Impression: Abdominal pain, Ventral hernia Prescriptions: No Action gabapentin 600 mg tablet 600 mg PO QDAY omeprazole 20 MG capsule 20 mg PO DAILY amlodipine [Norvasc] 10 MG tablet 10 mg PO QHS Eliquis 5 MG tablet 5 mg PO BID atorvastatin 80 MG tablet 80 mg PO QHS 0RF lisinopril 40 MG tablet 40 mg PO DAILY 0RF sennosides-docusate sodium [Stimulant Laxative Plus] 8.6-50 mg Tablet 1 tab PO BID Qty: 60 0RF dapagliflozin propanediol [Farxiga] 10 mg tablet 10 mg PO DAILY Qty: 30 0RF insulin glargine [Lantus Solostar U-100 Insulin] 100 unit/mL (3 mL) insulin pen 15 unit subcut BIDCM Qty: 5 0RF multivitamin with folic acid [Daily-Levon (with folic acid)] 400 mcg tablet 1 tab PO DAILY carvedilol 25 mg tablet 25 mg PO BID Qty: 60 0RF Rx Instructions: must administer with a meal/food cholecalciferol (vitamin D3) 50 mcg (2,000 unit) capsule 50 mcg PO DAILY ondansetron 8 mg tablet,disintegrating 8 mg PO Q8H PRN (Reason: nausea and vomiting) Qty: 15 0RF pioglitazone 15 mg tablet 15 mg PO DAILY Qty: 30 3RF Primary Care Provider: Dennis Pelayo Referrals: Dennis Pelayo DO [Primary Care Provider] - Print Language: Polish
--- NOTE | 2024-08-12 04:43 | CT_ITS ---
EXAM: CT Abdomen And Pelvis W/O Contrast Injection HISTORY: abd pain and hernia known hernia unable to have surgery, c/o pain x 2 hours today diffuse TECHNIQUE: Routine protocol CT abdomen and pelvis. IV Contrast: None.. Oral contrast: None. RADIATION DOSAGE (If Supplied By Facility): CTDIvol = ( 21.58 ) mGy, DLP = ( 1358.73 ) mGycm Individualized dose optimization techniques were used for this CT. COMPARISON: CT abdomen pelvis 08/04/2024. 06/10/2024. LIMITATIONS: None. FINDINGS: LOWER CHEST: Included lung bases are clear. Coronary artery calcifications are noted. Small hiatal hernia. LIVER: Grossly unremarkable. GALLBLADDER AND BILIARY TREE: Grossly unremarkable. PANCREAS: Grossly unremarkable. SPLEEN: Grossly unremarkable. ADRENAL GLANDS: Grossly unremarkable. KIDNEYS AND URETERS: No calculi demonstrated. No hydronephrosis. Approximately 4.3 cm exophytic rounded structure at the lower pole right kidney is unchanged compared to prior studies. PERITONEUM: No free air. No free fluid. BOWEL: Surgical clips in the mid and lower abdomen. Small right periumbilical hernia contains short segment of small bowel similar to prior study, with mild stranding small amount of fluid in hernia sac which is new. Small bowel proximal to the hernia is moderately dilated, distal small bowel decreased caliber, with abrupt transition at the entrance point of the hernia. Degree of dilatation is increased compared to the prior. APPENDIX: Not identified. VESSELS: Abdominal aorta is normal caliber. REPRODUCTIVE ORGANS: Uterus not identified. URINARY BLADDER: Grossly unremarkable. ABDOMINAL WALL: Unremarkable. BONES: No acute abnormalities. CT/Abdomen/Pelvis without Cont IMPRESSION: 1. Periumbilical hernia containing small bowel with findings that can be seen with incarceration. Secondary distal small bowel obstruction with increased bowel dilatation compared to the prior study. 2. Right exophytic renal lesion is essentially stable, but not fully characterized on this study. Electronically Signed: Suzanna Patel MD at 6:53 EST ,
[2024-08-12] MEDS: Morphine 4 MG/ML Syringe IV ×2 (04:54→07:27)
[2024-08-12] MEDS: Ondansetron 4 MG/2 ML Vial IV ×2 (04:54→07:27)
[2024-08-12 04:57] LABS: Absolute Lymphocyte Count 1.36 X10^3/uL (0.83-4.51); Basophil# 0.05 X10^3/uL; Basophil% 0.5 % (0-1); Eosinophil# 0.07 X10^3/uL; Eosinophils% 0.7 % (0-5); Hematocrit 43.1 % (37-47); Lymphocyte # 1.36 X10^3/ul (0.83-4.51); Lymphocyte % 13.6 % (19-41); Mean Corp Hgb Conc 30.2 g/dL (32-36); Mean Corpuscular Volume 79.7 fL (81-99); Mean Platelet Vol. 8.6 fl (6.2-12.0); Monocyte# 0.52 X10^3/uL; Monocyte% 5.2 % (0-10); NRBC Flagged by Analyzer 0 % (0-5); Neutrophil # 7.95 X10^3/uL (2.7-7.7); Neutrophil % 79.4 % (47-70); Platelet Count 261 K/mm3 (150-450); RBC Distribution Width SD 52.9 fl (35.1-43.9); Red Blood Count 5.41 M/mm3 (4.2-5.4)
[2024-08-12 05:22] LABS: ALB/GLOB Ratio 0.6 RATIO (0.9-2.4); AST(SGOT) 23 U/L (15-37); Alanine Aminotransfer ALT/SGPT 24 U/L (13-56); Albumin, Serum 2.9 g/dL (3.2-5.0); Alkaline Phosphatase 114 U/L (45-117); Anion Gap 1 (5-15); BUN 19 mg/dL (7-18); BUN/Creat Ratio 18.8 RATIO (10-20); Calcium,Total 10.8 mg/dL (8.5-10.1); Chloride 105 mmol/L (98-107); Creatinine, Serum 1.01 mg/dL (0.55-1.02); EST Glomerular Filtration Rate 58 mL/min (>60); Est Glom Filt Rate - Afr Amer 70 mL/min (>60); Estimated Creatinine Clearance 67.87 ml/min; Globulin 4.7 g/dL (2.2-4.2); Glucose 185 mg/dL (74-106); Lipase 71 U/L (13-75); Potassium 4.4 mmol/L (3.5-5.1); Protein, Total 7.6 g/dL (6.4-8.2); Sodium Level 135 mmol/L (136-145)
[2024-08-12] MEDS: 0.9% Normal Saline (1000mL) 1,000 ML 100 ML IV ×2 (09:34→20:00)
[2024-08-12] MEDS: 0.9% Saline Lock 10 ML Syringe IV (09:34)
[2024-08-12] MEDS: Heparin Injection (Vial) 5,000 UNIT/ML VIAL 5000 UNIT SC ×2 (09:44→21:21)
--- NOTE | 2024-08-12 14:40 | CASEMGMT ---
AYE CHAUDHRY Assessment Face to Face with patient for initial transition planning/care coordination assessment. AYE CHAUDHRY introduced self and role at [facility]. Patient lying in bed, alert and oriented. Patient willing to participate in assessment and is able to answer all questions appropriately. Care providers, pharmacy, and demographics verified. Strata: 3 Admitting dx: Small bowel obstruction LACE Strata: 3 PCP: Pierce Specialists: Denies Preferred Pharmacy: [facility] Insurance: [facility] D[facility]PLE[facility] Prescription Benefit: Yes LNOK: Aubrie Khan (Niece) Living Arrangements: Pt lives alone in a single level apartment with 2 steps to enter ADLs/IADLs: Pt states I with ADLs, needs assistance with IADLs. 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 Transportation: Pt does not drive. Pt states uses hospital van or walks. DME: Glucometer and supplies, Cane, FWW, Grab bars. HHC/SNF: Hx with [facility]AAC and KRISTIN, currently set up with [facility]. Plan: [facility] Follow for transportation needs at [place].
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
--- NOTE | 2024-08-12 15:37 | EX.PCM.CON.S ---
Assessment & Plan Assessment/Plan (1) Small bowel obstruction: PLAN: Patient is a 68-year-old female with history of known periumbilical hernia containing bowel. She is admitted for rule out small bowel obstruction given new onset abdominal pain and suggestive features on her CT imaging. However, patient has had numerous large-volume bowel movements and denies nausea/endorses an appetite. Further, on exam I do not feel any bowel within her hernia defect. Based on the patient's history and nursing reports I am suspicious for possible underlying enteric pathogen and has requested a stool sample be sent. From a surgical standpoint patient could be advanced to a diet and monitored for tolerance. Recommend symptomatic treatment with no plans for imminent surgical intervention. Impression discussed with primary hospitalist, Dr. Lazcano. Ed Shirley MD General Surgery Endocrine Surgery Pager: [facility] [address] [place] [address], [address] [place] [id number] Office: [phone] (2) Ventral hernia: HPI Consult Data Date of Consult: 08/12/24 HPI Narrative Reason for Consultation: Concern for possible early small bowel obstruction HPI Narrative: ZOIE DE LA PAZ, is a 68 F who presents to [facility] with complaints of sudden onset abdominal pain with nausea this morning. She shares that she had otherwise been in a stable state of health and had not done any recent travel or has any known sick contacts. Upon presentation to the emergency department labs were drawn and CT imaging was obtained of the abdomen pelvis. The latter showed evidence of small bowel within her known periumbilical hernia and some associated stranding. Further radiology commented that bowel proximal to the hernia was dilated while the distal small bowel was decompressed potentially representing a secondary small bowel obstruction. While in the emergency department and prior to my arrival patient had a large bowel movement and had remarked that her abdominal pain was spontaneously resolved. Still, given the radiology read emergency medicine requested surgical input and I suggested the patient be observed for confirming p.o. tolerance as I did note the presence of air-fluid levels on patient's CT imaging. By time patient is visiting on the floor nursing notes several more large loose stools. Patient, for her part, states that she is hungry and thirsty and denies any nausea or abdominal pain. Patient is followed by Dr. Shah of general surgery for the known ventral hernia but there are no definitive plans for repair. [facility] Medical History Neuropathic pain Essential (primary) hypertension Cognitive dysfunction ESBL (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 coli infection Wears glasses Former smoker Obesity Ambulates with cane Stroke/cerebrovascular accident Difficulty in walking Poor historian Recurrent incisional hernia with incarceration Incarcerated ventral hernia Obstructive sleep apnea Atrial fibrillation Intraventricular hemorrhage Embolic stroke GERD (gastroesophageal reflux disease) Obesity (BMI 30-39.9) Hyperlipidemia Hypertension Diabetes mellitus Home Medications ?Medication ?Instructions ?Recorded ?Last Taken ?Type omeprazole 20 mg capsule,delayed 20 mg PO DAILY GERd 05/29/14 06/08/24 History release amlodipine 10 mg tablet (Norvasc) 10 mg PO QHS HTN 10/04/16 06/07/24 History apixaban 5 mg tablet (Eliquis) 5 mg PO BID blood thinner 10/04/16 06/08/24 History atorvastatin 80 mg tablet 80 mg PO QHS Cholesterol 10/25/16 06/07/24 Rx lisinopril 40 mg tablet 40 mg PO DAILY HTN 10/25/16 06/08/24 Rx pioglitazone 15 mg tablet 15 mg PO DAILY DM #30 tabs 10/09/22 06/08/24 Rx gabapentin 600 mg tablet 600 mg PO QDAY Nerve Pain 01/01/24 06/08/24 History multivitamin with folic acid 400 1 tab PO DAILY Supplement 05/14/24 06/08/24 History mcg tablet (Daily-Levon (with folic acid)) carvedilol 25 mg tablet 25 mg PO BID BP #60 tabs 05/19/24 06/08/24 Rx cholecalciferol (vitamin D3) 50 50 mcg PO DAILY Supplement 06/08/24 06/08/24 History mcg (2,000 unit) capsule dapagliflozin propanediol 10 mg 10 mg PO DAILY #30 tabs 06/27/24 Unknown Rx tablet (Farxiga) insulin glargine 100 unit/mL (3 15 unit (0.15 mL) subcut BIDCM DM 06/27/24 Unknown Rx mL) subcutaneous pen (Lantus #5 pens Solostar U-100 Insulin) sennosides 8.6 mg-docusate sodium 1 tab PO BID #60 tabs 06/27/24 Unknown Rx 50 mg tablet (Stimulant Laxative Plus) ondansetron 8 mg disintegrating 8 mg PO Q8H PRN nausea and 08/04/24 Unknown Rx tablet vomiting #15 tabs Allergy/AdvReac Type Severity Reaction Status Date / Time iodine Allergy Mild Itching Verified 08/12/24 04:35 Penicillins Allergy Mild Itching Verified 08/12/24 04:35 Family History Father CVA (cerebral vascular accident) Mother Diabetes Stomach cancer Other High cholesterol Hypertension Surgical History History of cholecystectomy Hx of colonoscopy Status post debridement History of hysterectomy S/P repair of ventral hernia Social History household members: none Smoking Status: Former smoker alcohol intake: never substance use type: does not use caffeine: Yes what type of physical activity do you participate in: walking frequency: daily Physical Exam Const alert, oriented x3 and no apparent distress Constitutional Narrative: Patient appears older than stated age Nutritional Appearance: obese Resp normal respiratory effort GI GI Narrative: Morbidly obese, abdominal striae, scars in the supraumbilical region. Palpable hernia defect just superior and to the right of the umbilicus. I am able to palpate patient's fascial defect which I would estimate at approximately 2 cm in width and I do not feel any bowel in the hernia at this time. Patient otherwise is nondistended, soft, nontender to palpation. Lab / Micro Data 08/12/24 04:50 08/12/24 04:50 Labs: Laboratory Results - last 24 hr 08/12/24 04:50: WBC 10.0, RBC 5.41 H, Hgb 13.0, Hct 43.1, MCV 79.7 L, MCH 24.0 L, MCHC 30.2 L, RDW Std Deviation 52.9 H, RDW Coeff of Faby 19.0 H, Plt Count 261, MPV 8.6, Immature Gran % (Auto) 0.600, Neut % (Auto) 79.4 H, Lymph % (Auto) 13.6 L, [place] % (Auto) 5.2, Eos % (Auto) 0.7, Baso % (Auto) 0.5, Absolute Neuts (auto) 8.0 H, Absolute Lymphs (auto) 1.36, Nucleated RBC % 0, Sodium 135 L, Potassium 4.4, Chloride 105, Carbon Dioxide 29.0, Anion Gap 1 L, BUN 19 H, Creatinine 1.01, Estim Creat Clear Calc 67.87, Est GFR (MDRD) Af Amer 70, Est GFR (MDRD) Non-Af 58 L, BUN/Creatinine Ratio 18.8, Glucose 185 H, Calcium 10.8 H, Total Bilirubin 0.60, AST 23, ALT 24, Alkaline Phosphatase 114, Total Protein 7.6, Albumin 2.9 L, Globulin 4.7 H, Albumin/Globulin Ratio 0.6 L, Lipase 71 Imaging Radiology Impression Abdomen/Pelvis CT 08/12/24 04:43 IMPRESSION: 1. Periumbilical hernia containing small bowel with findings that can be seen with incarceration. Secondary distal small bowel obstruction with increased bowel dilatation compared to the prior study. 2. Right exophytic renal lesion is essentially stable, but not fully characterized on this study. Electronically Signed: Suzanna Patel MD at 6:53 EST , Charges/Coding Visit Charges Inpatient E&M: 41692 Init Hosp L2
--- NOTE | 2024-08-12 16:10 | CHAPLAIN ---
Type of Pastoral Visit ___ Initial Visit ___ Follow-up Visit ___ On-call Visit ___ General Patient Visit ___ Spiritual Assessment ___ Family Conference ___ Bereavement ___ Rapid Response ___ Code Blue ___ Other (describe below) Pastoral Care Referral From ___ Patient ___ Family ___ Nurse ___ Physician ___ Milking Machine Mechanic ___ Senior Integration Architect ___ Other (describe below) Sacrament/Intervention ___ Active listening ___ Anointing ___ Latter Day ___ Bereavement ___ Communion ___ Katie exploration ___ ___ Life review ___ Prayer ___ Reconciliation ___ Sacrament of Sick ___ Supportive presence ___ Wedding ___ Other (describe below) Pastoral Comments patient is sedated and sleeping soundly;
[2024-08-12 18:20] LABS: Bedside Glucose 75 mg/dL (74-106)
--- NOTE | 2024-08-12 19:08 | PCM.HP.STD ---
HPI - General General Date of Admission: 08/12/24 Date of Service: 08/12/24 Chief Complaint: Abdominal pain HPI Narrative ZOIE DE LA PAZ, is a 68 F who presents to the emergency room at [facility] with diffuse abdominal pain which started approximately 2 hours prior to her emergency room visit. Patient denies any constipation, she denies any diarrhea. Patient does not complain of any nausea or vomiting. Workup was done in the emergency room, patient's white blood cell count was 10,000, chemistry panel was remarkable for BUN of 19 and a glucose of 185. Abdomen and pelvis CT showed a periumbilical hernia containing small bowel, there was a secondary distal small bowel obstruction with increased bowel dilation noted. Patient subsequently had vomiting and diarrhea while in the emergency room, general surgery was contacted and agreed to see the patient in consultation. Patient was admitted to [facility], she will be given IV fluids and remain n.p.o. [facility] Medical History Neuropathic pain Essential (primary) hypertension Cognitive dysfunction ESBL (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 coli infection Wears glasses Former smoker Obesity Ambulates with cane Stroke/cerebrovascular accident Difficulty in walking Poor historian Recurrent incisional hernia with incarceration Incarcerated ventral hernia Obstructive sleep apnea Atrial fibrillation Intraventricular hemorrhage Embolic stroke GERD (gastroesophageal reflux disease) Obesity (BMI 30-39.9) Hyperlipidemia Hypertension Diabetes mellitus Home Medications ?Medication ?Instructions ?Recorded ?Last Taken ?Type omeprazole 20 mg capsule,delayed 20 mg PO DAILY GERd 05/29/14 06/08/24 History release amlodipine 10 mg tablet (Norvasc) 10 mg PO QHS HTN 10/04/16 06/07/24 History apixaban 5 mg tablet (Eliquis) 5 mg PO BID blood thinner 10/04/16 06/08/24 History atorvastatin 80 mg tablet 80 mg PO QHS Cholesterol 10/25/16 06/07/24 Rx lisinopril 40 mg tablet 40 mg PO DAILY HTN 10/25/16 06/08/24 Rx pioglitazone 15 mg tablet 15 mg PO DAILY DM #30 tabs 10/09/22 06/08/24 Rx gabapentin 600 mg tablet 600 mg PO QDAY Nerve Pain 01/01/24 06/08/24 History multivitamin with folic acid 400 1 tab PO DAILY Supplement 05/14/24 06/08/24 History mcg tablet (Daily-Levon (with folic acid)) carvedilol 25 mg tablet 25 mg PO BID BP #60 tabs 05/19/24 06/08/24 Rx cholecalciferol (vitamin D3) 50 50 mcg PO DAILY Supplement 06/08/24 06/08/24 History mcg (2,000 unit) capsule dapagliflozin propanediol 10 mg 10 mg PO DAILY #30 tabs 06/27/24 Unknown Rx tablet (Farxiga) insulin glargine 100 unit/mL (3 15 unit (0.15 mL) subcut BIDCM DM 06/27/24 Unknown Rx mL) subcutaneous pen (Lantus #5 pens Solostar U-100 Insulin) sennosides 8.6 mg-docusate sodium 1 tab PO BID #60 tabs 06/27/24 Unknown Rx 50 mg tablet (Stimulant Laxative Plus) ondansetron 8 mg disintegrating 8 mg PO Q8H PRN nausea and 08/04/24 Unknown Rx tablet vomiting #15 tabs Allergy/AdvReac Type Severity Reaction Status Date / Time iodine Allergy Mild Itching Verified 08/12/24 04:35 Penicillins Allergy Mild Itching Verified 08/12/24 04:35 Family History Father CVA (cerebral vascular accident) Mother Diabetes Stomach cancer Other High cholesterol Hypertension Surgical History History of cholecystectomy Hx of colonoscopy Status post debridement History of hysterectomy S/P repair of ventral hernia Social History household members: none Smoking Status: Former smoker alcohol intake: never substance use type: does not use caffeine: Yes what type of physical activity do you participate in: walking frequency: daily ROS Constitutional Constitutional: Denies anorexia, change in weight, chills, fatigue, fever(s), night sweats or weakness Eyes Eyes: Denies blurry vision, change in vision, discharge from eye(s) or eye pain Cardiovascular Cardiovascular: Denies chest pain, claudication, dyspnea on exertion, edema or palpitations Respiratory/Chest Respiratory/Chest: Denies cough, hemoptysis, shortness of breath at rest or shortness of breath with exertion Gastrointestinal Gastrointestinal: Reports abdominal pain, diarrhea, nausea and vomiting; Denies constipation, hematemesis, hematochezia or melena Genitourinary Genitourinary: Denies dysuria, hematuria, urinary frequency, urinary hesitancy, urinary incontinence or urinary urgency Musculoskeletal Musculoskeletal: Denies back pain, joint pain, joint stiffness, joint swelling, myalgias or neck pain Neurologic Neurologic: Denies abnormal gait, abnormal speech, dizziness, focal weakness, headache(s), loss of vision, numbness, other visual disturbances, paresthesias, syncope or tingling Psychiatric Psychiatric: Denies anxiety, cognitive impairment, depression, irritability, mood swings or suicidal ideation Endocrine Endocrinology: Denies change in body appearance, cold intolerance, excessive sweating, heat intolerance, polydipsia or polyuria Hematologic/Lymphatic Hematologic/Lymphatic: Denies none, anemia, easy bleeding, easy bruising or lymphadenopathy Allergic/Immunologic Allergic/Immunologic: Denies rhinitis, urticaria, eczemia or asthma Vital Signs Vital Signs Vital Signs: 08/12/24 04:31 08/12/24 06:30 08/12/24 07:43 Temperature 98.5 F 97.9 F Temperature Source Oral Pulse Rate 92 82 Respiratory Rate 18 16 18 Blood Pressure 110/59 L 137/62 H Blood Pressure Mean 76 87 Blood Pressure Source Blood Pressure Position Blood Pressure Location Pulse Ox 94 96 Oxygen Delivery Method Room Air 08/12/24 07:45 08/12/24 08:00 08/12/24 08:39 Temperature 98 F 97.0 F L Temperature Source Temporal Temporal Pulse Rate 137 H 86 98 Respiratory Rate 18 18 16 Blood Pressure 137/62 H 124/60 H 106/61 Blood Pressure Mean 87 81 76 Blood Pressure Source Monitor Blood Pressure Position Semi-Fowlers Blood Pressure Location Right Arm Pulse Ox 96 96 93 Oxygen Delivery Method Room Air 08/12/24 15:00 Temperature 96.7 F L Temperature Source Temporal Pulse Rate 87 Respiratory Rate 16 Blood Pressure 101/46 L Blood Pressure Mean 64 Blood Pressure Source Monitor Blood Pressure Position Semi-Fowlers Blood Pressure Location Right Arm Pulse Ox 93 Oxygen Delivery Method Room Air Weight Weight: 115.5 kg Body Mass Index (BMI) 41.1 Physical Exam Const alert, oriented x3, no apparent distress and healthy appearing Constitutional Narrative: Patient has class III obesity General Appearance: cooperative, well kempt and well developed Orientation / Consciousness: awake, oriented to person, oriented to place and oriented to time HEENT normocephalic, head/scalp atraumatic, hearing grossly normal bilaterally and moist oral mucous membranes Eyes PERRL, EOMs intact bilaterally and conjunctivae normal Neck supple, no JVD, thyroid normal and no carotid bruits General: trachea midline Resp normal respiratory effort, no retractions, no use of accessory muscles and clear to auscultation bilaterally Auscultation: Negative for rales, rhonchi or wheezes Cardio regular rate, regular rhythm, S1 normal heart sound, S2 normal heart sound, no murmurs, no rub and no gallops GI normal to inspection, nondistended, normoactive bowel sounds, soft to palpation, non-tender and non-distended Extremity normal to inspection Skin no rashes or lesions noted General Skin Exam: no breakdown Neuro oriented x3, CN's II-XII intact bilaterally, no focal motor deficits and no sensory deficits noted Sensorium / Orientation: awake and alert Speech: speech normal Psych affect normal Results Lab / Micro Data 08/13/24 05:04 08/13/24 05:04 Labs: Laboratory Results - last 24 hr 08/12/24 04:50: WBC 10.0, RBC 5.41 H, Hgb 13.0, Hct 43.1, MCV 79.7 L, MCH 24.0 L, MCHC 30.2 L, RDW Std Deviation 52.9 H, RDW Coeff of Faby 19.0 H, Plt Count 261, MPV 8.6, Immature Gran % (Auto) 0.600, Neut % (Auto) 79.4 H, Lymph % (Auto) 13.6 L, [place] % (Auto) 5.2, Eos % (Auto) 0.7, Baso % (Auto) 0.5, Absolute Neuts (auto) 8.0 H, Absolute Lymphs (auto) 1.36, Nucleated RBC % 0, Sodium 135 L, Potassium 4.4, Chloride 105, Carbon Dioxide 29.0, Anion Gap 1 L, BUN 19 H, Creatinine 1.01, Estim Creat Clear Calc 67.87, Est GFR (MDRD) Af Amer 70, Est GFR (MDRD) Non-Af 58 L, BUN/Creatinine Ratio 18.8, Glucose 185 H, Calcium 10.8 H, Total Bilirubin 0.60, AST 23, ALT 24, Alkaline Phosphatase 114, Total Protein 7.6, Albumin 2.9 L, Globulin 4.7 H, Albumin/Globulin Ratio 0.6 L, Lipase 71 08/12/24 18:02: POC Glucose 75 Imaging Radiology Impression Abdomen/Pelvis CT 08/12/24 04:43 IMPRESSION: 1. Periumbilical hernia containing small bowel with findings that can be seen with incarceration. Secondary distal small bowel obstruction with increased bowel dilatation compared to the prior study. 2. Right exophytic renal lesion is essentially stable, but not fully characterized on this study. Electronically Signed: Suzanna Patel MD at 6:53 EST , Assessment & Plan Assessment/Plan (1) Abdominal pain: PLAN: Plan 1. Abdominal pain with nausea vomiting and diarrhea-most likely secondary to gastroenteritis, patient will be seen by general surgery, she will be admitted to [facility] 3, CT scan showed a possible small bowel obstruction but I talked with general surgery and they feel that this presentation is more in keeping with a gastroenteritis. #2 type 2 diabetes-patient is currently on a clear liquid diet, when she resumes a diabetic diet I will order fingerstick blood sugars. #3 essential hypertension-patient will remain on her home medications #4 chronic use of oral anticoagulants-patient is on Eliquis #5 paroxysmal atrial fibrillation-patient is on Eliquis and rate limiting medication #6 class III obesity-complicates care, management, recovery, and prognosis Total clinical time spent by myself addressing the patient's medical issues, reviewing all of her data, and collaborating with patient's care team: 75 minutes - Charges/Coding Visit Charges Inpatient E&M: 18900 Init Hosp L3
[2024-08-12 22:26] LABS: Bedside Glucose 66 mg/dL (74-106)
[2024-08-12] MEDS: Dextrose 5%/0.9% NaCl 1,000 ML 100 ML IV (22:42)
[2024-08-13 03:23] VITALS: BP 109/49; PULSE 90; RESP 18; TEMP 36.7; O2SAT 92
[2024-08-13] MEDS: Nystatin Powder 15gm Bottle 1 APPLIC TOPICAL ×3 (03:24→20:27)
[2024-08-13] MEDS: 0.9% Saline Lock 10 ML Syringe IV (03:24)
[2024-08-13 05:40] LABS: Absolute Lymphocyte Count 1.46 X10^3/uL (0.83-4.51); Basophil# 0.02 X10^3/uL; Basophil% 0.4 % (0-1); Eosinophil# 0.09 X10^3/uL; Eosinophils% 1.8 % (0-5); Hematocrit 36.8 % (37-47); Hemoglobin 10.9 g/dL (12.0-15.0); Lymphocyte # 1.46 X10^3/ul (0.83-4.51); Lymphocyte % 29.3 % (19-41); Mean Corp Hgb Conc 29.6 g/dL (32-36); Mean Corpuscular Hgb 23.9 pg (27.0-32.0); Mean Corpuscular Volume 80.7 fL (81-99); Mean Platelet Vol. 9.4 fl (6.2-12.0); Monocyte# 0.43 X10^3/uL; Monocyte% 8.6 % (0-10); NRBC Flagged by Analyzer 0 % (0-5); Neutrophil # 2.97 X10^3/uL (2.7-7.7); Neutrophil % 59.5 % (47-70); Platelet Count 223 K/mm3 (150-450); RBC Distribution Width CV 18.7 % (11.6-14.6); RBC Distribution Width SD 54.4 fl (35.1-43.9); Red Blood Count 4.56 M/mm3 (4.2-5.4)
[2024-08-13 06:12] LABS: Anion Gap 2 (5-15); BUN 16 mg/dL (7-18); BUN/Creat Ratio 23.9 RATIO (10-20); Calcium,Total 9.3 mg/dL (8.5-10.1); Chloride 112 mmol/L (98-107); Creatinine, Serum 0.67 mg/dL (0.55-1.02); EST Glomerular Filtration Rate 93 mL/min (>60); Est Glom Filt Rate - Afr Amer 112 mL/min (>60); Estimated Creatinine Clearance 85.68 ml/min; Glucose 125 mg/dL (74-106); Potassium 3.8 mmol/L (3.5-5.1); Sodium Level 140 mmol/L (136-145)
[2024-08-13 06:12] LABS: Bedside Glucose 123 mg/dL (74-106)
[2024-08-13 06:42] LABS: Mucous, Urine 0 SEEN /hpf (<or=2+); Red Blood Cells-Urine 0 SEEN /hpf (0-5)
[2024-08-13 06:46] LABS: Color, Urine Yellow (Yellow); Glucose, Dipstick 50 mg/dl (Normal); Ketone-Dipstick Negative (Negative); Leukocyte Esterase-Dipstick 100 /ul (Negative); Nitrite-Dipstick Negative (Negative); Occult Blood-Urine Negative /ul (Negative); Protein-Dipstick 15 mg/dl (Negative); Specific Gravity, Urine 1.025 (1.002-1.030); Urine Bilirubin Dipstick Negative (Negative); Urine Clarity Clear (Clear); Urine Urobilinogen Normal (Normal)
[2024-08-13 06:55] LABS: Bacteria 2+ /hpf (None Seen); Squamous Epithelial Cells - UA 0-5 SEEN /hpf (5-10); White Blood Cells 10-25 SEEN /hpf (0-5)
[2024-08-13] MEDS: Heparin Injection (Vial) 5,000 UNIT/ML VIAL 5000 UNIT SC (08:33)
[2024-08-13 08:34] VITALS: BP 119/44; PULSE 92; RESP 16; TEMP 36.4; O2SAT 94
--- NOTE | 2024-08-13 12:28 | CASEMGMT ---
Social Work- received a telephone call from Kera Wells [facility]. Kera reports that pt is involved with APS. Kera reports that pt has a new ID and has went to social security, and has plans to go to the bank at discharge with APS worker. Kera reports that pt has no care coordination needs, as they are being addressed. Kera would like discharge paperwork faxed to her at [phone]. KELLY remains available to follow. ARELIS Muhammad
[2024-08-13 12:32] LABS: Bedside Glucose 110 mg/dL (74-106)
[2024-08-13 14:05] VITALS: BP 124/55; PULSE 103; RESP 16; TEMP 36.4; O2SAT 96
[2024-08-13 18:38] LABS: Bedside Glucose 202 mg/dL (74-106)
--- NOTE | 2024-08-13 18:38 | PCM.PN.HOSP ---
Reason for Visit Reason for Visit: Diagnoses Ventral hernia without obstruction or gangrene (08/12/24) Unspecified intestinal obstruction, unspecified as to partial versus complete obstruction (08/12/24) Unspecified abdominal pain (08/12/24) Subjective Subjective Patient was seen and examined today, I placed her back on a diabetic diet today with sliding scale insulin. I did order some of her home medications but I held some of her blood pressure medications because her blood pressure is not elevated today. Objective Data Objective Data Vital Signs: Vital Signs Temp Pulse Resp BP Pulse Ox O2 Del Method 97.5 F L 103 H 16 124/55 H 96 Room Air 08/13/24 14:05 08/13/24 14:05 08/13/24 14:05 08/13/24 14:05 08/13/24 14:05 08/13/24 14:05 Oxygen Delivery Method Room Air Weight: 115.5 kg Body Mass Index (BMI) 41.1 Intake & Output: Intake and Output for Last 24 Hours 08/11/24 08/12/24 08/13/24 23:59 23:59 23:59 Intake Total 1250 / 1250 1000 / 1000 Output Total Balance 1249 / 1249 1000 / 1000 Lab / Micro Data 08/13/24 05:04 08/13/24 05:04 Labs: Laboratory Results - last 24 hr 08/12/24 06:30: Urine Color Yellow, Urine Clarity Clear, Urine pH 6.0, Ur Specific [place] 1.025, Urine Protein 15 H, Urine Glucose (UA) 50 H, Urine Ketones Negative, Urine Occult Blood Negative, Urine Nitrite Negative, Urine Bilirubin Negative, Urine Urobilinogen Normal, Ur Leukocyte Esterase 100 H, Urine RBC 0 SEEN, Urine WBC 10-25 SEEN, Ur Squamous Epith Cells 0-5 SEEN, Urine Bacteria 2+, Urine Mucus 0 SEEN 08/12/24 21:52: POC Glucose 66 L 08/13/24 05:04: WBC 5.0, RBC 4.56, Hgb 10.9 L, Hct 36.8 L, MCV 80.7 L, MCH 23.9 L, MCHC 29.6 L, RDW Std Deviation 54.4 H, RDW Coeff of Faby 18.7 H, Plt Count 223, MPV 9.4, Immature Gran % (Auto) 0.400, Neut % (Auto) 59.5, Lymph % (Auto) 29.3, [place] % (Auto) 8.6, Eos % (Auto) 1.8, Baso % (Auto) 0.4, Absolute Neuts (auto) 3.0, Absolute Lymphs (auto) 1.46, Nucleated RBC % 0, Sodium 140, Potassium 3.8, Chloride 112 H, Carbon Dioxide 25.0, Anion Gap 2 L, BUN 16, Creatinine 0.67, Estim Creat Clear Calc 85.68, Est GFR (MDRD) Af Amer 112, Est GFR (MDRD) Non-Af 93, BUN/Creatinine Ratio 23.9 H, Glucose 125 H, Calcium 9.3 08/13/24 05:51: POC Glucose 123 H 08/13/24 11:56: POC Glucose 110 H Physical Exam Const alert, oriented x3 and no apparent distress Constitutional Narrative: Class III obesity General Appearance: cooperative, well kempt and well developed Orientation / Consciousness: awake, oriented to person, oriented to place and oriented to time HEENT normocephalic, head/scalp atraumatic and moist oral mucous membranes Eyes PERRL, EOMs intact bilaterally and conjunctivae normal Neck supple and no JVD General: trachea midline Resp normal respiratory effort, no retractions, no use of accessory muscles and clear to auscultation bilaterally Auscultation: Negative for rales, rhonchi or wheezes Cardio regular rate, regular rhythm, S1 normal heart sound, S2 normal heart sound, no murmurs, no rub and no gallops GI normal to inspection, nondistended, normoactive bowel sounds, soft to palpation, non-tender and non-distended Extremity no clubbing, cyanosis or edema Skin no rashes or lesions noted General Skin Exam: no breakdown Neuro oriented x3, CN's II-XII intact bilaterally, moves all extremities, no focal motor deficits and no sensory deficits noted Sensorium / Orientation: awake and alert Speech: speech normal Psych affect normal Assessment & Plan Assessment/Plan (1) History of diabetes mellitus: (2) Abdominal pain: PLAN: Plan 1. Abdominal pain with nausea vomiting and diarrhea-most likely secondary to gastroenteritis, patient will be reevaluated tomorrow for possible discharge home #2 type 2 diabetes-fingerstick blood sugars will be monitored #3 essential hypertension-patient will remain on her home medications #4 chronic use of oral anticoagulants-patient is on Eliquis #5 paroxysmal atrial fibrillation-patient is on Eliquis and rate limiting medication #6 class III obesity-complicates care, management, recovery, and prognosis Total clinical time spent by myself addressing the patient's medical issues, reviewing all of her data, and collaborating with patient's care team: 35 minutes - Charges/Coding Visit Charges Inpatient E&M: 04730 Subs Hosp L2
--- NOTE | 2024-08-13 19:22 | NURSING ---
FORGOT TO CALL PTS NIECE EARLIER THIS AFTERNOON. ATTEMPTED AT THIS TIME W/NO ANSWER
[2024-08-13 20:17] VITALS: BP 111/45; PULSE 100; PULSE 90; RESP 20; TEMP 36.7; O2SAT 93
[2024-08-13] MEDS: APIXABAN 5 MG TABLET PO (20:27)
[2024-08-14 03:05] VITALS: BP 105/79; PULSE 96; RESP 17; TEMP 36.6; O2SAT 99
[2024-08-14] MEDS: Acetaminophen 500 MG Tablet 1000 MG PO (06:25)
[2024-08-14 06:45] LABS: Bedside Glucose 125 mg/dL (74-106)
[2024-08-14 08:00] VITALS: BP 139/64; PULSE 95; RESP 17; TEMP 36.6; O2SAT 93
[2024-08-14] MEDS: Nystatin Powder 15gm Bottle 1 APPLIC TOPICAL (08:05)
[2024-08-14] MEDS: Senna/Docusate Sodium 1 Tablet PO (08:05)
[2024-08-14] MEDS: Carvedilol 25 MG Tablet PO (08:06)
[2024-08-14] MEDS: APIXABAN 5 MG TABLET PO (08:06)
[2024-08-14] MEDS: Pantoprazole Sodium 20 MG Tablet PO (08:10)
--- NOTE | 2024-08-14 08:29 | PCM.PN.SRG ---
Subjective Subjective Patient evaluated resting comfortably in bed. She notes feeling tired this morning. She denies any abdominal pain, nausea, vomiting or diarrhea. She has not had any further diarrhea since shortly after admission. She notes passing flatus. Objective Data Objective Data Vital Signs: Vital Signs Temp Pulse Resp BP Pulse Ox O2 Del Method 97.8 F 95 17 139/64 H 93 Room Air 08/14/24 08:00 08/14/24 08:00 08/14/24 08:00 08/14/24 08:00 08/14/24 08:00 08/14/24 08:00 Oxygen Delivery Method Room Air Weight: 254 lb 10.142 oz Body Mass Index (BMI) 41.1 Intake & Output: Intake and Output for Last 24 Hours 08/12/24 08/13/24 08/14/24 23:59 23:59 23:59 Intake Total 1250 / 1250 1240 / 1240 240 / 240 Output Total Balance 1249 / 1249 1240 / 1240 240 / 240 Lab / Micro Data 08/13/24 05:04 08/13/24 05:04 Labs: Laboratory Results - last 24 hr 08/13/24 11:56: POC Glucose 110 H 08/13/24 18:16: POC Glucose 202 H 08/14/24 06:24: POC Glucose 125 H Physical Exam GI GI Narrative: Abdomen- soft, nontender. Positive bowel sounds. Hernia is currently reduced. Assessment & Plan Assessment/Plan (1) Ventral hernia: QUALIFIERS: Obstruction and gangrene presence: without obstruction or gangrene Qualified Code(s): K43.9 - Ventral hernia without obstruction or gangrene PLAN: I am following this patient in conjunction with Dr. Shirley. Patient presented with a small bowel obstruction, which has resolved. Patient was then noted to have a significant amount of stool production, which was very malodorous more consistent with gastroenteritis. Enteric pathogen and other stools studies were ordered, however patient has not had any further bowel movements. Patient's presenting symptoms have all seemed to have resolved. Patient may be discharged from a surgical standpoint. She is to follow-up with Dr. Shah to discuss and schedule ventral hernia repair. Patient will need to see cardiology for clearance as she was recently hospitalized with A-fib in May last year. This was explained to the patient and she verbalized understanding. Charges/Coding Visit Charges Inpatient E&M: 05070 Subs Hosp L1
[2024-08-14] MEDS: Insulin Lispro 100 UNIT/ML INSULN.PEN SC (10:33)
[2024-08-14 10:48] LABS: Bedside Glucose 154 mg/dL (74-106)
--- NOTE | 2024-08-14 11:15 | CASEMGMT ---
Addendum entered by Ira Holguin 08/14/24 14:45: Discussed with pt nurse that pt does not have clothes to dc home with nor her cane. AYE CHAUDHRY into pt room, pt is aware that she can dc by taxi. Confirmed with pt that she absolutely has no one who can transport her home, pt states she does not. Pt states she does not have anyone to get her clothes and if she did, they could not get into her home. Pt states that she has the ahn to get in. She feels she can get in and out of the taxi by herself despite not having her cane. Updated pt nurse on this. [place] aware to call taxi for dc. Addendum entered by Ira Holguin 08/14/24 13:57: Received approval for taxi voucher. Updated charge nurse and bilingual secretary. Addendum entered by Ira Holguin 08/14/24 12:48: TC to [facility] van, they do not have availability for a transport home today. TC to [facility], they are unable to take pt home but did not give a reason only stating to call member services. TC to member services, spoke with Rubi, she states that the patient is an opt out member so she cannot have transportation if less than 30 miles or she does not need a w/c or stretcher. AYE CHAUDHRY into pt room, pt states this RN CM can call her niece uAbrie. TC to Aubrie, she states she cannot transport pt as she has a bad back. Pt states she has no other options. Aubrie suggested [facility] and pt states she is out of town. Pt states she does not have any money to pay for a taxi. Requested pt to dc home with taxi pass from [facility] nursing human resources department supervisor. Addendum entered by Ira Holguin 08/14/24 11:33: [facility] to [facility] [place], spoke with Tracy, she is aware that pt is dc'ing today. Denies any information needing to be faxed to them. Original Note: AYE CHAUDHRY into pt room, pt sitting up in chair. Pt is happy to be dc'ing. Pt would like her PARKING TECHNICIAN to be resumed from [facility]. Asked pt if she uses her insurance for transportation. Pt states she does not want to use her insurance, she wants to use the hospital van. She is agreeable to using her insurance if the hospital van cannot take her home. Referral sent in [facility] to [facility] for CHITRA to resume.
--- NOTE | 2024-08-14 11:27 | DCINST_ITS ---
Discharge Instructions Diet Discharge Diet: 1800 Calorie Control Diet DC O2, CPAP, BIPAP needs Home O2 Discharge instructions: No Dressing / Incision Discharge Activity: Return to Normal Activity Weight Bearing Status: Full weight bearing Follow Up Care Test Results: Test results from this visit will be discussed in further detail at your follow- up appointment, if applicable. Discharge Plan Admission Admit Date/Time: 08/12/24 07:59 Primary Reason for Your Visit: Gastroenteritis Attending Provider: Dennis Lazcano Primary Care Provider: Dennis Pelayo Consulting Providers: Ed Shirley Discharge Orders/Prescriptions Prescriptions: Continued gabapentin 600 mg tablet 600 mg PO QDAY omeprazole 20 MG capsule 20 mg PO DAILY amlodipine [Norvasc] 10 MG tablet 10 mg PO QHS Eliquis 5 MG tablet 5 mg PO BID atorvastatin 80 MG tablet 80 mg PO QHS 0RF lisinopril 40 MG tablet 40 mg PO DAILY 0RF sennosides-docusate sodium [Stimulant Laxative Plus] 8.6-50 mg Tablet 1 tab PO BID Qty: 60 0RF dapagliflozin propanediol [Farxiga] 10 mg tablet 10 mg PO DAILY Qty: 30 0RF insulin glargine [Lantus Solostar U-100 Insulin] 100 unit/mL (3 mL) insulin pen 15 unit subcut BIDCM Qty: 5 0RF multivitamin with folic acid [Daily-Levon (with folic acid)] 400 mcg tablet 1 tab PO DAILY carvedilol 25 mg tablet 25 mg PO BID Qty: 60 0RF Rx Instructions: must administer with a meal/food cholecalciferol (vitamin D3) 50 mcg (2,000 unit) capsule 50 mcg PO DAILY ondansetron 8 mg tablet,disintegrating 8 mg PO Q8H PRN (Reason: nausea and vomiting) Qty: 15 0RF pioglitazone 15 mg tablet 15 mg PO DAILY Qty: 30 3RF Referrals / Follow Up: Dennis Pelayo DO [Primary Care Provider] - See Referral Note (at your next visit) Disposition Disposition (needs filled in before D/C Order can be placed): Home, Self Care
[2024-08-14 14:00] VITALS: BP 127/73; PULSE 77; RESP 16; TEMP 36.4; O2SAT 94
--- NOTE | 2024-08-14 14:49 | CASEMGMT ---
Social Work- faxed discharge paperwork to [facility] residential case manager Kera Candelaria Plan: Resumption of services ARELIS Muhammad
--- NOTE | 2024-08-14 15:03 | CHAPLAIN ---
Type of Pastoral Visit _x__ Initial Visit ___ Follow-up Visit ___ On-call Visit ___ General Patient Visit ___ Spiritual Assessment ___ Family Conference ___ Bereavement ___ Rapid Response ___ Code Blue ___ Other (describe below) Pastoral Care Referral From _x__ Patient ___ Family ___ Nurse ___ Physician ___ Medical Attendant ___ Parachute Line Tier ___ Other (describe below) Sacrament/Intervention _x__ Active listening ___ Anointing ___ Religion ___ Bereavement ___ Communion ___ Katie exploration ___ _x__ Life review _x__ Prayer ___ Reconciliation ___ Sacrament of Sick _x__ Supportive presence ___ Wedding ___ Other (describe below) Pastoral Comments patient uses very simple conversation and language in the visit; pt says that she is fine but that her belly has been hurting; pt and this imaging nurse have a casual conversation about her interests; pt likes watching tv; pt says that her siblings live out of state and that she has no family around; pt welcomes a prayer
--- NOTE | 2024-08-25 19:49 | DS.PCM_ITS ---
Providers Date of Admission: 08/12/24 Date of Discharge: 08/14/24 Primary Care Physician: Dr. Dennis Pelayo, Consultations 08/12/24 08:38 Consult: General Surgery Routine Consulting Provider: Ed Shirley Reason for Consult: small bowel obstruction EMERGENT Consult: No MD Notified: Yes Date Notified: 08/12/24 Time Notified: 08:07 Method of Notification: Verbal Reason For Visit: SMALL BOWEL OBSTRUCTION Diagnosis Discharge Diagnosis (1) History of diabetes mellitus: Status: Acute Code(s): Z86.39 - Personal history of other endocrine, nutritional and metabolic disease (2) Abdominal pain: Status: Inactive Code(s): R10.9 - Unspecified abdominal pain Plan 1. Abdominal pain with nausea vomiting and diarrhea-most likely secondary to gastroenteritis, patient will be reevaluated tomorrow for possible discharge home #2 type 2 diabetes-fingerstick blood sugars will be monitored #3 essential hypertension-patient will remain on her home medications #4 chronic use of oral anticoagulants-patient is on Eliquis #5 paroxysmal atrial fibrillation-patient is on Eliquis and rate limiting medication #6 class III obesity-complicates care, management, recovery, and prognosis Small bowel obstruction was ruled out Total clinical time spent by myself addressing the patient's medical issues, reviewing all of her data, and collaborating with patient's care team: 35 minutes - Medications at Discharge Home Medications omeprazole 20 mg capsule,delayed release 20 mg PO DAILY GERd 05/29/14 amlodipine 10 mg tablet (Norvasc) 10 mg PO QHS HTN 10/04/16 apixaban 5 mg tablet (Eliquis) 5 mg PO BID blood thinner 10/04/16 atorvastatin 80 mg tablet 80 mg PO QHS Cholesterol 10/25/16 lisinopril 40 mg tablet 40 mg PO DAILY HTN 10/25/16 pioglitazone 15 mg tablet 15 mg PO DAILY DM #30 tabs 10/09/22 gabapentin 600 mg tablet 600 mg PO QDAY Nerve Pain 01/01/24 multivitamin with folic acid 400 mcg tablet (Daily-Levon (with folic acid)) 1 tab PO DAILY Supplement 05/14/24 carvedilol 25 mg tablet 25 mg PO BID BP #60 tabs 05/19/24 dapagliflozin propanediol 10 mg tablet (Farxiga) 10 mg PO DAILY diabetes #30 tabs 06/27/24 insulin glargine 100 unit/mL (3 mL) subcutaneous pen (Lantus Solostar U-100 Insulin) 15 unit (0.15 mL) subcut BIDCM DM #5 pens 06/27/24 sennosides 8.6 mg-docusate sodium 50 mg tablet (Stimulant Laxative Plus) 1 tab PO BID #60 tabs 06/27/24 Hospital Course Operations None Procedures None Summary of Care Provided Minutes Spent on Discharge: 31 Hospital Course: This 68-year-old female was seen in the emergency room hospital with complaints of diffuse abdominal pain which started 2 hours prior to her visit to the emergency room. Workup was performed in the emergency room, chemistry panel was remarkable for BUN of 19 and a glucose of 185, abdomen and pelvic CT showed a periumbilical hernia containing small bowel, there was a secondary distal small bowel obstruction with increased bowel dilation noted. The case was discussed with general surgery and they did not feel that the patient had a small bowel obstruction however. Patient had an episode of vomiting and diarrhea in the emergency room and general surgery was contacted and agreed to see the patient in consultation. Patient was admitted to [place] [address], she was n.p.o. and given IV fluids and seen in consultation by general surgery. Patient's symptoms resolved during her hospitalization, general surgery felt that the patient had gastroenteritis and did not have a small bowel obstruction. Lab test for enteric pathogens were negative, stool lactoferrin was positive. On 08/14/2024, patient was seen and examined: On examination she appeared in good health and spirits, she does not appear to be in any distress. Vital signs as documented. Skin warm and dry and without overt rashes. Neck without JVD, thyroid appears normal, trachea is midline, neck is supple. Lungs clear, normal air movement was noted. Heart exam notable for regular rhythm, normal sounds and absence of murmurs, rubs or gallops. Abdomen unremarkable and without evidence of organomegaly, masses, or abdominal aortic enlargement, bowel sounds are present in all 4 quadrants, no abdominal tenderness was noted. Extremities nonedematous, no cyanosis was noted, no clubbing was noted. Neuro: Cranial nerves II through XII are grossly intact, no focal motor deficits were noted, sensation to light touch and pinprick is intact, motor exam 5/5 throughout. Psych: Patient is alert and oriented x3, she does not appear anxious or depressed, she does not appear agitated. Patient appears stable for discharge home on 08/14/2024. Weight / BMI Weight Weight: 115.5 kg Body Mass Index (BMI) 41.1 ABG / Lab / Microbiology Data 08/13/24 05:04 08/13/24 05:04 Microbiology: Microbiology 08/14/24 14:12 Stool Enteric Bacteriology - Final 08/14/24 14:12 Stool Clostridioides difficile (PCR) - Final 08/14/24 14:19 Stool Stool Lactoferrin - Final D/C Instructions Discharge Diet: 1800 Calorie Control Diet Weight Bearing Status: Full weight bearing DC O2, CPAP, BIPAP Needs Home O2 Discharge instructions: No Meaningful Use Info Meaningful Use Meaningful Use Diagnoses (Choose all that apply): None applicable Ischemic Stroke Statin Dosing Therapy Reference: STATIN DOSE THERAPY REFERENCE: * Patients > 75 years receive moderate or high dose statin therapy. * Patients 75 years or YOUNGER should receive HIGH intensity statin dose unless contraindicated. You will be required to document reason for non-treatment if statin daily dose does not meet guidelines. HIGH DOSE STATIN THERAPY DAILY Atorvastatin > than or = to 40 mg Rosuvastatin > than or = to 20 mg Amlodipine + Atorvastatin > than or = to 2.5/40 mg Ezetimibe + Simvastatin 10/80 mg Simvastatin 80mg Discharge Plan Admission Admit Date/Time: 08/12/24 07:59 Primary Reason for Your Visit: Gastroenteritis Attending Provider: Dennis Lazcano Primary Care Provider: Dennis Pelayo Consulting Providers: Ed Shirley Discharge Orders/Prescriptions Prescriptions: Continued gabapentin 600 mg tablet 600 mg PO QDAY omeprazole 20 MG capsule 20 mg PO DAILY amlodipine [Norvasc] 10 MG tablet 10 mg PO QHS Eliquis 5 MG tablet 5 mg PO BID atorvastatin 80 MG tablet 80 mg PO QHS 0RF lisinopril 40 MG tablet 40 mg PO DAILY 0RF sennosides-docusate sodium [Stimulant Laxative Plus] 8.6-50 mg Tablet 1 tab PO BID Qty: 60 0RF dapagliflozin propanediol [Farxiga] 10 mg tablet 10 mg PO DAILY Qty: 30 0RF insulin glargine [Lantus Solostar U-100 Insulin] 100 unit/mL (3 mL) insulin pen 15 unit subcut BIDCM Qty: 5 0RF multivitamin with folic acid [Daily-Levon (with folic acid)] 400 mcg tablet 1 tab PO DAILY carvedilol 25 mg tablet 25 mg PO BID Qty: 60 0RF Rx Instructions: must administer with a meal/food pioglitazone 15 mg tablet 15 mg PO DAILY Qty: 30 3RF Referrals / Follow Up: Dennis Pelayo DO [Primary Care Provider] - See Referral Note (at your next visit) Disposition Disposition (needs filled in before D/C Order can be placed): Home, Self Care Charges/Coding Visit Charges Inpatient E&M: 54973 Disch Hosp >30min
== END 2024-08-14 15:42 | disposition home or self-care (01) | DRG 389 ==
LOC: ED 07:13 → ICU 08:16 → MS3 21:29
PROVIDERS: Admitting Provider Internal Medicine; Emergency Provider Emergency Medicine; PCP Family Medicine; Visit Provider Internal Medicine
DX: K56.609 Unspecified intestinal obstruction, unspecified as to partial versus complete obstruction (principal); Z68.41 Body mass index [BMI] 40.0-44.9, adult; E11.40 Type 2 diabetes mellitus with diabetic neuropathy, unspecified; I10 Essential (primary) hypertension; I48.0 Paroxysmal atrial fibrillation; E78.5 Hyperlipidemia, unspecified; Z79.4 Long term (current) use of insulin; K52.9 Noninfective gastroenteritis and colitis, unspecified; E11.65 Type 2 diabetes mellitus with hyperglycemia; K43.9 Ventral hernia without obstruction or gangrene; E66.813 Obesity, class 3; Z79.84 Long term (current) use of oral hypoglycemic drugs; Z90.710 Acquired absence of both cervix and uterus; Z80.0 Family history of malignant neoplasm of digestive organs; Z87.891 Personal history of nicotine dependence; Z98.890 Other specified postprocedural states; Z90.49 Acquired absence of other specified parts of digestive tract; Z86.19 Personal history of other infectious and parasitic diseases
CPT/HCPCS: 36415; 74176; 80048; 80053; 81001; 82962; 83630; 83690; 85025; 87493; 87506; 99285; A4216; J2405

== ENCOUNTER 2024-08-22 19:14 | Inpatient (IN) | payer MEDICARE, MEDICAID, SELFPAY ==
[2024-08-22 19:15] VITALS: BP 147/79; PULSE 95; RESP 16; TEMP 36.6; O2SAT 99; BMI 41.3
--- NOTE | 2024-08-22 19:35 | EDS_ITS ---
HPI <GILBERT Lopez - Last Filed: 08/22/24 21:02> History of Present Illness Chief Complaint: Abd Pain Narrative Narrative: Patient is a 68-year-old female with history of stroke, obesity, ventral hernia, hyperglycemia secondary diabetes, morbidly obesity, debility who presents to the emergency department for ongoing abdominal pain. Patient states that she was eating toast today at approximately 12:30 PM. Patient states she started having pain around her hernia. She states this does happen, she has history of bowel obstruction. Denies any fever chills nausea or vomiting. PFSH <GILBERT Lopez - Last Filed: 08/22/24 21:02> [facility] Medical History History of atrial fibrillation Abdominal pain Neuropathic pain Essential (primary) hypertension Cognitive dysfunction ESBL (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 coli infection Wears glasses Former smoker Obesity Ambulates with cane Stroke/cerebrovascular accident Difficulty in walking Poor historian Recurrent incisional hernia with incarceration Incarcerated ventral hernia Obstructive sleep apnea Atrial fibrillation Intraventricular hemorrhage Embolic stroke GERD (gastroesophageal reflux disease) Obesity (BMI 30-39.9) Hyperlipidemia Hypertension Diabetes mellitus Home Medications ?Medication ?Instructions ?Recorded ?Last Taken ?Type omeprazole 20 mg capsule,delayed 20 mg PO DAILY GERd 05/29/14 06/08/24 History release amlodipine 10 mg tablet (Norvasc) 10 mg PO QHS HTN 10/04/16 06/07/24 History apixaban 5 mg tablet (Eliquis) 5 mg PO BID blood thinner 10/04/16 06/08/24 History atorvastatin 80 mg tablet 80 mg PO QHS Cholesterol 10/25/16 06/07/24 Rx lisinopril 40 mg tablet 40 mg PO DAILY HTN 10/25/16 06/08/24 Rx pioglitazone 15 mg tablet 15 mg PO DAILY DM #30 tabs 10/09/22 06/08/24 Rx gabapentin 600 mg tablet 600 mg PO QDAY Nerve Pain 01/01/24 06/08/24 History multivitamin with folic acid 400 1 tab PO DAILY Supplement 05/14/24 06/08/24 History mcg tablet (Daily-Levon (with folic acid)) carvedilol 25 mg tablet 25 mg PO BID BP #60 tabs 05/19/24 06/08/24 Rx cholecalciferol (vitamin D3) 50 50 mcg PO DAILY Supplement 06/08/24 06/08/24 History mcg (2,000 unit) capsule dapagliflozin propanediol 10 mg 10 mg PO DAILY diabetes #30 tabs 06/27/24 Unknown Rx tablet (Farxiga) insulin glargine 100 unit/mL (3 15 unit (0.15 mL) subcut BIDCM DM 06/27/24 Unknown Rx mL) subcutaneous pen (Lantus #5 pens Solostar U-100 Insulin) sennosides 8.6 mg-docusate sodium 1 tab PO BID #60 tabs 06/27/24 Unknown Rx 50 mg tablet (Stimulant Laxative Plus) Allergy/AdvReac Type Severity Reaction Status Date / Time iodine Allergy Mild Itching Verified 08/22/24 19:19 Penicillins Allergy Mild Itching Verified 08/22/24 19:19 Family History Father CVA (cerebral vascular accident) Mother Diabetes Stomach cancer Other High cholesterol Hypertension Surgical History History of cholecystectomy Hx of colonoscopy Status post debridement History of hysterectomy S/P repair of ventral hernia Social History household members: none Smoking Status: Former smoker alcohol intake: never substance use type: does not use caffeine: Yes what type of physical activity do you participate in: walking frequency: daily ROS <GILBERT Lopez - Last Filed: 08/22/24 21:02> ROS ED ROS Narrative Constitutional: Negative for fever, chills, weight loss, weakness Eyes: Negative for vision loss, vision change, double vision ENT: Negative for any sore throat, ear pain, congestion Cardiovascular: Negative for any chest pain, tightness, palpitations Respiratory: Negative for any cough, sputum production, hemoptysis, dyspnea, dyspnea on exertion, orthopnea Gastrointestinal: Negative for any nausea, vomiting, diarrhea, constipation, blood in stool, blood in vomit. Positive for abdominal pain : Negative for any urinary frequency, dysuria, retention, blood in urine Muscle skeletal: Negative for any neck pain, back pain Neurological: Negative for any headache, syncope, dizziness Skin: Negative for any rashes, itching, abrasions, lacerations Psychiatric: Negative for any depression, anxiety, stress, suicidal ideation, homicidal ideation Hematologic: Negative for any excessive bruising, easy bleeding EXAM <GILBERT Lopez - Last Filed: 08/22/24 21:02> Physical Exam Narrative Exam Narrative: Vital signs reviewed. HEET: Head normocephalic atraumatic, TMs clear bilaterally. Posterior pharynx is clear, moist mucous membranes. Nares clear bilaterally. Neck: Supple with no lymphadenopathy or tenderness. No signs of meningismus. Cardiac: Regular rate and rhythm no murmurs gallops or rubs, equal peripheral pulses bilaterally. Respiratory: Lungs clear to auscultation bilaterally. No chest tenderness. Abdomen: Soft, nondistended. No abdominal bruit or pulsatile masses. No hepatosplenomegaly. Patient does have a hernia to the ventral area on the right side, patient does have pain around this area. There is active bowel sounds throughout all quadrants. The belly is soft, the hernia appears chronic, pain with palpation. Extremities: No peripheral edema, no signs of gross trauma or deformity. Active full range of motion of all extremities. Neuro: Cranial nerves II through XII intact, no focal neurological deficits. Skin: Clean dry and intact with no rash, purpura, petechiae, vesicles or pustules. Backs/flank: No CVA tenderness, no midline spinal tenderness, no deformity. Psych: Normal mood and affect. No SI, HI or acute psychosis. Const Vital Signs: 08/22/24 19:15 Temperature 97.8 F Temperature Source Oral Pulse Rate 95 Respiratory Rate 16 Blood Pressure 147/79 H Blood Pressure Mean 101 Pulse Ox 99 Oxygen Delivery Method Room Air Positive well nourished and obese Nutritional Appearance: obese <Dr. Johnny Macias, DO - Last Filed: 08/22/24 23:39> Physical Exam Const Vital Signs: 08/22/24 19:15 Temperature 97.8 F Temperature Source Oral Pulse Rate 95 Respiratory Rate 16 Blood Pressure 147/79 H Blood Pressure Mean 101 Pulse Ox 99 Oxygen Delivery Method Room Air MDM <GILBERT Lopez - Last Filed: 08/22/24 21:02> MDM Lab Data Labs: Laboratory Results - last 24 hr 08/22/24 19:37 WBC 6.9 RBC 5.63 H Hgb 13.7 Hct 44.3 MCV 78.7 L MCH 24.3 L MCHC 30.9 L RDW Std Deviation 51.8 H RDW Coeff of Faby 18.9 H Plt Count 252 MPV 9.2 Immature Gran % (Auto) 0.600 Neut % (Auto) 70.2 H Lymph % (Auto) 19.7 Brantley % (Auto) 8.0 Eos % (Auto) 0.9 Baso % (Auto) 0.6 Absolute Neuts (auto) 4.9 Absolute Lymphs (auto) 1.36 Nucleated RBC % 0 Sodium 140 Potassium 4.2 Chloride 108 H Carbon Dioxide 27.0 Anion Gap 5 BUN 12 Creatinine 0.92 Estim Creat Clear Calc 74.76 Est GFR (MDRD) Af Amer 78 Est GFR (MDRD) Non-Af 64 BUN/Creatinine Ratio 13.1 Glucose 150 H Lactic Acid 1.9 Calcium 11.2 H Total Bilirubin 0.50 AST 17 ALT 24 Alkaline Phosphatase 124 H Total Protein 8.2 Albumin 3.2 Globulin 5.0 H Albumin/Globulin Ratio 0.6 L Lipase 43 Radiography Diagnostic Testing: Clinical Impression(s) from Imaging Studies Abdomen/Pelvis CT 08/22/24 19:38 IMPRESSION: 1. Bowel containing hernia associated with multiple dilated loops of small bowel with air-fluid levels slightly worse when compared to prior examination. This is consistent with bowel obstruction. 2. Diverticulosis of the colon without evidence of acute diverticulitis. Electronically Signed: Daryl Dangelo DO at 20:11 EST , Treatment and Re-Evaluation :: Differential diagnosis includes however is not limited to: Bowel obstruction, acute cholecystitis, acute on chronic abdominal pain, cyclic vomiting syndrome, incarcerated hernia Patient appears generally well, vital signs are stable, patient is nontoxic- appearing. Presenting to the emergency department for ongoing abdominal pain. I did look at the patient's workup from 12 August 2024, there was concern for possible bowel obstruction. Patient will receive repeat laboratory values including lactic acid, patient will receive a CT scan of the ab pelvis without contrast secondary to history of allergy. All radiologic examinations were read, reviewed by the emergency department attending. From these reads, a plan of care will be put in place. IV morphine, IV Zofran given. Patient's laboratory values show no leukocytosis, hemoglobin is 13.7, patient's chemistries were unremarkable, glucose 150, lipase was negative. Lactic acid was 1.9. CT scan of the abdomen pelvis shows bowel containing hernia associate with multiple dilated loops of small bowel with air-fluid level slightly worsened compared to prior examination. This is consistent with bowel obstruction. Diverticulosis of the colon without evidence of acute diverticulitis. Secondary to this I did reach out to surgery. Patient will need to be admitted to medicine. I spoke with medicine for admission. NG tube was ordered however the patient refused. At this time, patient will be admitted. <Dr. Johnny Macias, DO - Last Filed: 08/22/24 23:39> [facility] Lab Data Labs: Laboratory Results - last 24 hr 08/22/24 19:37 WBC 6.9 RBC 5.63 H Hgb 13.7 Hct 44.3 MCV 78.7 L MCH 24.3 L MCHC 30.9 L RDW Std Deviation 51.8 H RDW Coeff of Faby 18.9 H Plt Count 252 MPV 9.2 Immature Gran % (Auto) 0.600 Neut % (Auto) 70.2 H Lymph % (Auto) 19.7 Brantley % (Auto) 8.0 Eos % (Auto) 0.9 Baso % (Auto) 0.6 Absolute Neuts (auto) 4.9 Absolute Lymphs (auto) 1.36 Nucleated RBC % 0 Sodium 140 Potassium 4.2 Chloride 108 H Carbon Dioxide 27.0 Anion Gap 5 BUN 12 Creatinine 0.92 Estim Creat Clear Calc 74.76 Est GFR (MDRD) Af Amer 78 Est GFR (MDRD) Non-Af 64 BUN/Creatinine Ratio 13.1 Glucose 150 H Lactic Acid 1.9 Calcium 11.2 H Total Bilirubin 0.50 AST 17 ALT 24 Alkaline Phosphatase 124 H Total Protein 8.2 Albumin 3.2 Globulin 5.0 H Albumin/Globulin Ratio 0.6 L Lipase 43 Radiography Diagnostic Testing: Clinical Impression(s) from Imaging Studies Abdomen/Pelvis CT 08/22/24 19:38 IMPRESSION: 1. Bowel containing hernia associated with multiple dilated loops of small bowel with air-fluid levels slightly worse when compared to prior examination. This is consistent with bowel obstruction. 2. Diverticulosis of the colon without evidence of acute diverticulitis. Electronically Signed: Daryl Dangelo, at 20:11 EST , Treatment and Re-Evaluation :: Differential diagnosis includes however is not limited to: Bowel obstruction, acute cholecystitis, acute on chronic abdominal pain, cyclic vomiting syndrome, incarcerated hernia Patient appears generally well, vital signs are stable, patient is nontoxic- appearing. Presenting to the emergency department for ongoing abdominal pain. I did look at the patient's workup from 12 August 2024, there was concern for possible bowel obstruction. Patient will receive repeat laboratory values including lactic acid, patient will receive a CT scan of the ab pelvis without contrast secondary to history of allergy. All radiologic examinations were read, reviewed by the emergency department attending. From these reads, a plan of care will be put in place. IV morphine, IV Zofran given. Patient's laboratory values show no leukocytosis, hemoglobin is 13.7, patient's chemistries were unremarkable, glucose 150, lipase was negative. Lactic acid was 1.9. CT scan of the abdomen pelvis shows bowel containing hernia associate with multiple dilated loops of small bowel with air-fluid level slightly worsened compared to prior examination. This is consistent with bowel obstruction. Diverticulosis of the colon without evidence of acute diverticulitis. Secondary to this I did reach out to surgery. Patient will need to be admitted to medicine. I spoke with medicine for admission. NG tube was ordered however the patient refused. At this time, patient will be admitted. ED attending note: I evaluated the patient in conjunction with the LEON. I agree with his/her statements and above findings. I have personally performed a face to face assessment of the patient and have reviewed the LEON Note. I performed a substantive portion of the visit including all aspects of the following. I p ersonally saw the patient performed chart review, physical exam, reviewed labs, imaging (if obtained), and formulated a treatment and management plan. This note was generated with [employer] software. It may contain incorrect words, spelling, and punctuation that were not noted in review of the chart prior to signing. Discharge Plan Dx/Rx/DC Orders Clinical Impression: Bowel obstruction, Hernia, ventral, Abdominal pain Disposition Disposition: Acute Care Hospital [facility] Discharge Date/Time: 08/22/24 21:54
--- NOTE | 2024-08-22 19:38 | CT_ITS ---
EXAM: CT ABDOMEN AND PELVIS WITHOUT INTRAVENOUS CONTRAST CLINICAL INDICATION: Pain TECHNIQUE: Helically acquired images were obtained of the abdomen and pelvis without intravenous contrast. This CT exam was performed using one or more of the following dose reduction techniques: automated exposure control, adjustment of the mA and/or kV according to patient size, and/or use of iterative reconstruction technique. COMPARISON: 08/12/2024, 06/10/2024 FINDINGS: LOWER THORAX: Coronary calcifications and/or stents. Lung bases are clear. No cardiomegaly. No significant pericardial effusion. ABDOMEN: LIVER: No significant abnormality. Homogeneous. GALLBLADDER AND BILE DUCTS: No significant abnormality. No calcified gallstones. No gallbladder distention or wall edema. No intra- or extrahepatic biliary ductal dilation. PANCREAS: No significant abnormality. No focal cystic mass. SPLEEN: No significant abnormality. Normal size without focal cystic or solid mass. ADRENALS: No significant abnormality. No nodules. KIDNEYS AND URETERS: Exophytic right lower pole renal lesion measuring roughly 4.7 cm with mean Hounsfield unit of 24. This has been previously characterized as a likely hyperdense cyst. ACR White Paper guidelines (Hergarry, et al. JACR 2018; 15(2):264-273) recommend MRI or CT without and with intravenous contrast. No hydronephrosis. STOMACH AND BOWEL: Bowel containing hernia associated with multiple dilated loops of small bowel with air-fluid levels slightly worse when compared to prior examination. Bowel loop containing periumbilical ventral abdominal wall hernia with severe laxity of the ventral abdominal musculature. Postoperative changes of bowel in the right lower quadrant. Diverticulosis of the colon without evidence of acute diverticulitis. PELVIS: APPENDIX: No evidence of acute appendicitis. BLADDER: No significant abnormality. REPRODUCTIVE: Status post hysterectomy. ABDOMEN and PELVIS: INTRAPERITONEAL SPACE: No significant abnormality. No ascites or other fluid collection. No free air. BONES/JOINTS: Osseous degenerative changes. No suspicious lytic or blastic abnormality. SOFT TISSUES: Ventral abdominal hernia. VASCULATURE: Atherosclerosis. Abdominal aorta is non-dilated. LYMPH NODES: No significant abnormality. No enlarged lymph nodes. CT/Abdomen/Pelvis without Cont IMPRESSION: 1. Bowel containing hernia associated with multiple dilated loops of small bowel with air-fluid levels slightly worse when compared to prior examination. This is consistent with bowel obstruction. 2. Diverticulosis of the colon without evidence of acute diverticulitis. Electronically Signed: Daryl Dangelo DO at 20:11 EST ,
[2024-08-22] MEDS: Ondansetron 4 MG/2 ML Vial IV (19:40)
[2024-08-22] MEDS: Morphine 4 MG/ML Syringe IV (19:40)
[2024-08-22 19:50] LABS: Absolute Lymphocyte Count 1.36 X10^3/uL (0.83-4.51); Absolute Neutrophil Count 4.9 X10^3/uL (2.0-7.7); Basophil# 0.04 X10^3/uL; Basophil% 0.6 % (0-1); Eosinophil# 0.06 X10^3/uL; Eosinophils% 0.9 % (0-5); Hematocrit 44.3 % (37-47); Hemoglobin 13.7 g/dL (12.0-15.0); Lymphocyte # 1.36 X10^3/ul (0.83-4.51); Lymphocyte % 19.7 % (19-41); Mean Corp Hgb Conc 30.9 g/dL (32-36); Mean Corpuscular Hgb 24.3 pg (27.0-32.0); Mean Corpuscular Volume 78.7 fL (81-99); Mean Platelet Vol. 9.2 fl (6.2-12.0); Monocyte# 0.55 X10^3/uL; NRBC Flagged by Analyzer 0 % (0-5); Neutrophil # 4.85 X10^3/uL (2.7-7.7); Neutrophil % 70.2 % (47-70); Platelet Count 252 K/mm3 (150-450); RBC Distribution Width CV 18.9 % (11.6-14.6); RBC Distribution Width SD 51.8 fl (35.1-43.9); Red Blood Count 5.63 M/mm3 (4.2-5.4); White Blood Count 6.9 K/mm3 (4.4-11.0)
[2024-08-22 20:03] LABS: ALB/GLOB Ratio 0.6 RATIO (0.9-2.4); AST(SGOT) 17 U/L (15-37); Alanine Aminotransfer ALT/SGPT 24 U/L (13-56); Albumin, Serum 3.2 g/dL (3.2-5.0); Alkaline Phosphatase 124 U/L (45-117); Anion Gap 5 (5-15); BUN 12 mg/dL (7-18); BUN/Creat Ratio 13.1 RATIO (10-20); Calcium,Total 11.2 mg/dL (8.5-10.1); Chloride 108 mmol/L (98-107); Creatinine, Serum 0.92 mg/dL (0.55-1.02); EST Glomerular Filtration Rate 64 mL/min (>60); Est Glom Filt Rate - Afr Amer 78 mL/min (>60); Estimated Creatinine Clearance 74.76 ml/min; Glucose 150 mg/dL (74-106); Lipase 43 U/L (13-75); Potassium 4.2 mmol/L (3.5-5.1); Protein, Total 8.2 g/dL (6.4-8.2); Sodium Level 140 mmol/L (136-145)
[2024-08-22 20:17] LABS: Lactic Acid 1.9 mmol/L (0.4-1.9)
--- NOTE | 2024-08-22 20:59 | HP.PCM.HOS_ITS ---
HPI - General General Date of Admission: 08/22/24 Date of Service: 08/22/24 Chief Complaint: Abdominal pain, distention HPI Narrative The patient is a 68 y/o F w/ PMHx: PAF, GERD, Hx CVA w/ cognitive impairment, Morbid obesity, Former tobacco use, HTN, HLD, FLOR, Diabetes mellitus type II with chronic neuropathy who presents to the [facility] ED on 08/22/24 with history of abdominal discomfort starting around lunchtime with primarily discomfort around her hernia which persisted and she rates 8 out of 10 in severity reporting it as dull aching and also sharp stabbing with no nausea or emesis associated but it persisted and she denies any recent flatus although she did report last bowel movement was loose and the day prior prompting eventual ED evaluation to be cautious as this is similar to her previous bowel obstruction presentation. Workup in the ED included T97.8, heart rate 95, BP 147/79, respiratory rate 16, 99% on room air, CBC with WC 6.9, 113.7, platelet 252 without marked shift, CMP with glucose 150, calcium 11.2, lactic acid 1.9, alk phos 124 otherwise not marked appearing, CT abdomen and pelvis with bowel containing hernia associate with multiple dilated loops of small bowel with air-fluid levels slightly worse when compared to previous consistent with bowel obstruction. ED discussed case with general surgeon who recommend admission for bowel obstruction but preference to admit to the hospital service given her medical history. Discussed case with ED physician and initial request for NG tube however patient declined very adamantly despite recommendations. In the ED patient ministered Zofran 4 mg IV x 1, morphine 4 mg IV x 1. [facility] Medical History History of atrial fibrillation Abdominal pain Neuropathic pain Essential (primary) hypertension Cognitive dysfunction ESBL (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 coli infection Wears glasses Former smoker Obesity Ambulates with cane Stroke/cerebrovascular accident Difficulty in walking Poor historian Recurrent incisional hernia with incarceration Incarcerated ventral hernia Obstructive sleep apnea Atrial fibrillation Intraventricular hemorrhage Embolic stroke GERD (gastroesophageal reflux disease) Obesity (BMI 30-39.9) Hyperlipidemia Hypertension Diabetes mellitus Home Medications ?Medication ?Instructions ?Recorded ?Last Taken ?Type omeprazole 20 mg capsule,delayed 20 mg PO DAILY GERd 10/31/14 11/10/24 History release amlodipine 10 mg tablet (Norvasc) 10 mg PO QHS HTN 10/04/16 06/07/24 History apixaban 5 mg tablet (Eliquis) 5 mg PO BID blood thinner 10/04/16 06/08/24 History atorvastatin 80 mg tablet 80 mg PO QHS Cholesterol 10/25/16 06/07/24 Rx lisinopril 40 mg tablet 40 mg PO DAILY HTN 10/25/16 06/08/24 Rx pioglitazone 15 mg tablet 15 mg PO DAILY DM #30 tabs 10/09/22 06/08/24 Rx gabapentin 600 mg tablet 600 mg PO QDAY Nerve Pain 01/01/24 06/08/24 History multivitamin with folic acid 400 1 tab PO DAILY Supplement 05/14/24 06/08/24 History mcg tablet (Daily-Levon (with folic acid)) carvedilol 25 mg tablet 25 mg PO BID BP #60 tabs 05/19/24 06/08/24 Rx cholecalciferol (vitamin D3) 50 50 mcg PO DAILY Supplement 06/08/24 06/08/24 History mcg (2,000 unit) capsule dapagliflozin propanediol 10 mg 10 mg PO DAILY diabetes #30 tabs 06/27/24 Unknown Rx tablet (Farxiga) insulin glargine 100 unit/mL (3 15 unit (0.15 mL) subcut BIDCM DM 06/27/24 Unknown Rx mL) subcutaneous pen (Lantus #5 pens Solostar U-100 Insulin) sennosides 8.6 mg-docusate sodium 1 tab PO BID #60 tabs 06/27/24 Unknown Rx 50 mg tablet (Stimulant Laxative Plus) Allergy/AdvReac Type Severity Reaction Status Date / Time iodine Allergy Mild Itching Verified 08/22/24 19:19 Penicillins Allergy Mild Itching Verified 08/22/24 19:19 Family History Father CVA (cerebral vascular accident) Mother Diabetes Stomach cancer Other High cholesterol Hypertension Surgical History History of cholecystectomy Hx of colonoscopy Status post debridement History of hysterectomy S/P repair of ventral hernia Social History household members: none Smoking Status: Former smoker alcohol intake: never substance use type: does not use caffeine: Yes what type of physical activity do you participate in: walking frequency: daily ROS ROS Narrative Admission Review of Systems: CONSTITUTIONAL: No weight loss, fever, chills, + weakness or fatigue. HEENT: Eyes: No visual loss, blurred vision, double vision or yellow sclerae. Ears, Nose, Throat: No hearing loss, sneezing, congestion, runny nose or sore throat. SKIN: No rash or itching, lesions, wounds except + bilateral lower extremity chronic venous stasis skin changes as well as occasional stage ecchymoses, abrasion. CARDIOVASCULAR: No chest pain, chest pressure or chest discomfort, palpitations, edema, orthopnea, syncopal events. RESPIRATORY: No shortness of breath, cough or sputum, wheezing, hemoptysis. GASTROINTESTINAL: + anorexia, abdominal pain, distention, loose stool recently and now lack of bowel movement and flatus. No nausea, vomiting, melena, BRBPR. GENITOURINARY: No dysuria, frequency, urgency or retention. NEUROLOGICAL: + Previous history of stroke with associated cognitive impairment. No headache, dizziness, syncope, paralysis, ataxia, numbness or tingling in the extremities, focal weakness, change in bowel or bladder control, seizure. MUSCULOSKELETAL: +muscle, back pain, joint pain or stiffness. HEMATOLOGIC: No anemia. + Easy bleeding/bruising. LYMPHATICS: No enlarged nodes. No history of splenectomy. PSYCHIATRIC: No history of depression or anxiety. ENDOCRINOLOGIC: No reports of sweating, cold or heat intolerance. No polyuria or polydipsia. ALLERGIES: No history of asthma, hives, eczema or rhinitis. Vital Signs Vital Signs Vital Signs: 08/22/24 19:15 Temperature 97.8 F Temperature Source Oral Pulse Rate 95 Respiratory Rate 16 Blood Pressure 147/79 H Blood Pressure Mean 101 Pulse Ox 99 Oxygen Delivery Method Room Air Weight Weight: 256 lb 2.834 oz Body Mass Index (BMI) 41.3 Physical Exam Narrative Physical Examination: General: Awake, alert, oriented x 3 and cooperative, seated upright in the ED bed, notes ongoing pain, slow responses with underlying history of cognitive impairment. Skin: Normal color, normal turgor, no icterus, no cyanosis except for notable bilateral lower extremity venous stasis skin changes, occasional stage ecchymoses and abrasions. HEENT: AT/NC, EOMI, PERRLA, mildly dry MM, no carotid bruits or JVD noted; however, thickened neck makes evaluation difficult. Lungs: Mildly diminished, greater bases, appropriate effort, no rales, ronchi or wheezing. Heart: Regular rate and rhythm; no gallop, rub audible. Abdomen: Soft, generalized discomfort with palpation however more pronounced around her hernia, absent bowel sounds, appears distended but difficult assessment given morbidly obese habitus, difficult to assess HSM also because of pain and habitus. Extremities: No cyanosis, no clubbing, see skin with chronic pedal to proximal bridges stable 2+ edema per patient report. Neurological: Patient awake, alert, oriented as noted, cognitive function intact; pupils equally reactive to light and accommodation, cranial nerves grossly normal, moving all 4 extremities, strength severely globally decreased secondary to acute presentation and underlying comorbidities. Psychiatric: Affect appears fatigued, uncomfortable, no acute evidence of depressive or anxiety feelings. Results Lab / Micro Data 08/22/24 19:37 08/22/24 19:37 Labs: Laboratory Results - last 24 hr 08/22/24 19:37: WBC 6.9, RBC 5.63 H, Hgb 13.7, Hct 44.3, MCV 78.7 L, MCH 24.3 L, MCHC 30.9 L, RDW Std Deviation 51.8 H, RDW Coeff of Faby 18.9 H, Plt Count 252, MPV 9.2, Immature Gran % (Auto) 0.600, Neut % (Auto) 70.2 H, Lymph % (Auto) 19.7, Murray % (Auto) 8.0, Eos % (Auto) 0.9, Baso % (Auto) 0.6, Absolute Neuts (auto) 4.9, Absolute Lymphs (auto) 1.36, Nucleated RBC % 0, Sodium 140, Potassium 4.2, Chloride 108 H, Carbon Dioxide 27.0, Anion Gap 5, BUN 12, Creatinine 0.92, Estim Creat Clear Calc 74.76, Est GFR (MDRD) Af Amer 78, Est GFR (MDRD) Non-Af 64, BUN/Creatinine Ratio 13.1, Glucose 150 H, Lactic Acid 1.9, Calcium 11.2 H, Total Bilirubin 0.50, AST 17, ALT 24, Alkaline Phosphatase 124 H , Total Protein 8.2, Albumin 3.2, Globulin 5.0 H, Albumin/Globulin Ratio 0.6 L, Lipase 43 Imaging Radiology Impression Abdomen/Pelvis CT 08/22/24 19:38 IMPRESSION: 1. Bowel containing hernia associated with multiple dilated loops of small bowel with air-fluid levels slightly worse when compared to prior examination. This is consistent with bowel obstruction. 2. Diverticulosis of the colon without evidence of acute diverticulitis. Electronically Signed: Daryl Dangelo, at 20:11 EST , Assessment & Plan Assessment/Plan (1) Bowel obstruction: PLAN: Plan The patient is a 68 y/o F w/ PMHx: PAF, GERD, Hx CVA w/ cognitive impairment, Morbid obesity, Former tobacco use, HTN, HLD, FLOR, Diabetes mellitus type II with chronic neuropathy who presents to the [facility] ED on 08/22/24 with history of abdominal discomfort starting around lunchtime with primarily discomfort around her hernia which persisted and she rates 8 out of 10 in severity reporting it as dull aching and also sharp stabbing with no nausea or emesis associated but it persisted and she denies any recent flatus although she did report last bowel movement was loose and the day prior prompting eventual ED evaluation to be cautious as this is similar to her previous bowel obstruction presentation. #1. Abdominal pain, nausea, emesis w/ SBO: CT abdomen and pelvis with bowel containing hernia associate with multiple dilated loops of small bowel with air- fluid levels slightly worse when compared to previous consistent with bowel obstruction. Will admit to [facility], maintain on IVFs, patient refused NG tube continue strict I&Os, IV pain/anti-emetics PRN, serial KUB as needed to montior bowel function, PPI IV, maintain NPO on bowel rest. General surgery consulted initially per ED and requested hospitalist service admission given medical history but they will continue to follow. #2. Hypercalcemia, Unclear etiology, appears recently persistent: Admission calcium 11.2, corrected calcium for albumin similar, will obtain ionized calcium and repeat CMP in AM. Given review of recent levels have been mildly elevated we will also obtain obtain vitamin D level (25-(OH)D, 1,25-(OH)2D), PTH, Mag, Phos levels. Pending these may consider UCa 24 hours assessment if needed. Patient is on vitamin D3 supplementation of note, holding. #3. Diabetes mellitus type II with chronic neuropathy: Hold oral home regimen, given n.p.o. status will decrease home insulin regimen by one half with hold for hypoglycemia, maintain n.p.o. status, accu checks w/ ISS. Temporally holding gabapentin regimen. #4. History CVA: Notable associated cognitive impairment, noted history of embolic stroke as well as intracranial potential hemorrhage but unclear history as poor historian, holding Eliquis with transition to Lovenox as noted, temporally holding statin and hypertensive regimen with as needed agents IV, alteration to diabetic regimen as noted. #5. PAF: Temporarily holding metoprolol, if necessary may add IV regimen as needed, holding Eliquis with transition to Lovenox as noted. #6. Hypertension: Holding all hypertensive regimen, as needed IV hydralazine in the interim. #7. Hyperlipidemia: Temporarily hold oral statin regimen. #8. Former tobacco use: Encourage continued tobacco cessation. #9. Morbid Obesity: Weight loss and lifestyle changes encouraged. #10. FLOR: Will defer PAP therapy given presentation as noted #1. #11. GERD: Will maintain on IV PPI. #12. DVT prophylaxis: Holding Eliquis, transition to Lovenox. #13. CODE status: Patient does not have healthcare power of ip technology transactions attorney or living will in place but notes her sister or her niece would be her medical decision makers if necessary. Discussed CODE status at length including difference between FULL code, DNR-CCA and DNR-CC status. Following discussions about the differences in these status, requested DNR-CCA, no intubation status which was confirmed from review of previous records as a prior status she had listed but still some concern given her underlying cognitive impairment but she is completely oriented of note. Advanced Care Planning Face to Face Time: 16 minutes. Charges/Coding Visit Charges Inpatient E&M: 24877 Init Hosp L3 Procedures Hospitalists Procedures: 25127 Advncd Care Plan 30 Min
[2024-08-22 21:14] VITALS: BP 114/54; PULSE 93; RESP 14; O2SAT 92
--- NOTE | 2024-08-22 21:16 | ED.RN ---
Patient refusing NG at this time stating I don't like that. Patient educated on the importance of having an NG placed and how it will help her stomach relieve pressure and feel better. Patient interrupted this RN and said I'm going to sleep now.
[2024-08-22 21:18] VITALS: BP 114/54; PULSE 93; RESP 14; TEMP 36.6; O2SAT 92
[2024-08-22 22:12] VITALS: BMI 40.8
[2024-08-22 22:30] VITALS: BP 112/51; PULSE 90; RESP 16; TEMP 36.5; O2SAT 94
[2024-08-22] MEDS: 0.9% Normal Saline (1000mL) 1,000 ML 100 ML IV (22:46)
[2024-08-22] MEDS: Pantoprazole Sodium 40 MG in 0.9% Normal Saline (100mL MB+) 100 ML 330 MG IV (22:47)
[2024-08-22] MEDS: Enoxaparin 120 MG/0.8 ML Syringe 115 MG SC (22:48)
[2024-08-22] MEDS: Nystatin Powder 15gm Bottle 1 APPLIC TOPICAL (22:49)
[2024-08-22 23:13] LABS: Bedside Glucose 130 mg/dL (74-106)
[2024-08-23] VITALS (8 sets, daily range): BP systolic 100–123; BP diastolic 47–69; PULSE 60–92; RESP 15–18; TEMP 36.6–37.2; O2SAT 93–97
[2024-08-23] MEDS: Ondansetron 4 MG/2 ML Vial IV (01:13)
[2024-08-23] MEDS: Morphine 2 MG/ML Syringe IV (01:14)
[2024-08-23] MEDS: Nystatin Powder 15gm Bottle 1 APPLIC TOPICAL ×3 (05:55→22:13)
--- NOTE | 2024-08-23 06:13 | NURSING ---
pt went to xray had n/v refused to have imaging completed advised them to have her return to floor and will get nausea meds and may be able to do xray later, primary rn aware
[2024-08-23 06:15] LABS: Bedside Glucose 122 mg/dL (74-106)
[2024-08-23] MEDS: proCHLORPERazine 10 MG/2 ML Vial 5 MG IV (06:27)
[2024-08-23] MEDS: 0.9% Saline Lock 10 ML Syringe IV ×4 (06:28→22:01)
[2024-08-23 06:44] LABS: Absolute Lymphocyte Count 1.12 X10^3/uL (0.83-4.51); Absolute Neutrophil Count 7.8 X10^3/uL (2.0-7.7); Basophil# 0.03 X10^3/uL; Basophil% 0.3 % (0-1); Eosinophil# 0.04 X10^3/uL; Eosinophils% 0.4 % (0-5); Hematocrit 40.2 % (37-47); Hemoglobin 12.1 g/dL (12.0-15.0); Lymphocyte # 1.12 X10^3/ul (0.83-4.51); Lymphocyte % 11.3 % (19-41); Mean Corp Hgb Conc 30.1 g/dL (32-36); Mean Corpuscular Hgb 24.1 pg (27.0-32.0); Mean Corpuscular Volume 80.1 fL (81-99); Mean Platelet Vol. 9.3 fl (6.2-12.0); Monocyte# 0.92 X10^3/uL; Monocyte% 9.3 % (0-10); NRBC Flagged by Analyzer 0 % (0-5); Neutrophil # 7.79 X10^3/uL (2.7-7.7); Neutrophil % 78.3 % (47-70); Platelet Count 223 K/mm3 (150-450); RBC Distribution Width CV 18.6 % (11.6-14.6); RBC Distribution Width SD 53.7 fl (35.1-43.9); Red Blood Count 5.02 M/mm3 (4.2-5.4); White Blood Count 9.9 K/mm3 (4.4-11.0)
[2024-08-23 07:07] LABS: ALB/GLOB Ratio 0.6 RATIO (0.9-2.4); AST(SGOT) 15 U/L (15-37); Alanine Aminotransfer ALT/SGPT 19 U/L (13-56); Albumin, Serum 2.6 g/dL (3.2-5.0); Alkaline Phosphatase 105 U/L (45-117); Anion Gap 6 (5-15); BUN 17 mg/dL (7-18); BUN/Creat Ratio 16.3 RATIO (10-20); Calcium,Total 10.2 mg/dL (8.5-10.1); Chloride 112 mmol/L (98-107); Creatinine, Serum 1.04 mg/dL (0.55-1.02); EST Glomerular Filtration Rate 56 mL/min (>60); Est Glom Filt Rate - Afr Amer 67 mL/min (>60); Estimated Creatinine Clearance 65.67 ml/min; Globulin 4.2 g/dL (2.2-4.2); Glucose 149 mg/dL (74-106); Magnesium 1.5 mg/dL (1.6-2.6); Phosphorus 4.2 mg/dL (2.5-4.9); Potassium 4.4 mmol/L (3.5-5.1); Protein, Total 6.8 g/dL (6.4-8.2); Sodium Level 140 mmol/L (136-145)
[2024-08-23 07:14] LABS: Ionized Calcium 1.38 mmol/L (1.09-1.30)
[2024-08-23 07:38] LABS: Ionized Calcium Order ORDER TUBE
[2024-08-23] MEDS: Pantoprazole Sodium 40 MG in 0.9% Normal Saline (100mL MB+) 100 ML 330 MG IV ×2 (09:58→22:02)
[2024-08-23] MEDS: Enoxaparin 120 MG/0.8 ML Syringe 115 MG SC (10:00)
[2024-08-23] MEDS: Insulin Glargine-YFGN 100 UNIT/ML Pen 15 UNIT SC ×2 (10:03→16:21)
[2024-08-23] MEDS: Menthol/Lanolin/Calamine/Znox 113 GM Tube 1 APPLIC TOPICAL ×2 (10:05→22:13)
[2024-08-23] MEDS: Magnesium Sulfate 4gm/100mL 4 GM/100 ML IV.SOLN. IV (10:34)
[2024-08-23 10:56] LABS: Bedside Glucose 146 mg/dL (74-106)
--- NOTE | 2024-08-23 11:08 | CASEMGMT ---
AYE CHAUDHRY readmission note: Index admission: 08/12-08/14: SBO. Pt admitted from home. SBO resolved. Pt discharged back home. Pt to f/u with Dr Shah as an OP re: ventral hernia repair. Pt w/hx of A-fib and was notified she would need cardiac clearance. No new Rx's @ dc. See AYE Cash CM, assess 08/12. Pt lives alone, I with ADLs, but needs assistance with IADLs. [facility] Pt did not have transportation home @ discharge and was given a voucher for a taxi. Per AYE Roth CM, note 08/14, she spoke w/member services for [employer] and was informed pt is an Opt-out member and is unable to receive transportation for <30 miles, unless she needs a W/C or stretcher. Current admission: 08/22: Admitted from home w/dx of complicated SBO. AYE CHAUDHRY to room. Pt resting in bed. Introduced self and role. Discussed readmission and discharge planning. Pt states she has been managing okay @ home since her last discharge. She states Kera CM from [facility], has been out to see her @ her home since discharging from [facility]. She states she had an appt scheduled w/Dr Pelayo but did not have transportation to go. She states Kera cx'd the appt, but she she is not sure if another appt was re-scheduled. Pt states she qualifies for an aide and she had one through [facility], but states they do not currently have one available. Deana MENDOZA, aware of above. Pt is aware she is to f/u with Dr Shah and able to tell AYE CHAUDHRY it is for ventral hernia repair, but states she has not scheduled an appt yet. She states she usually gets her medications from [facility], but states if she dc's home on any new medications, she would like to get them from [facility] retail pharmacy using [id number], as she does not know if she will have anyone that can go to a pharmacy @ de to pick them up, as [facility] may not be able to deliver same-day. Pt states she has all DME needed @ home and states has functioning glucometer w/sufficient supplies. She wants to discharge home. Pt initially stated she wanted HHC. RN RICHA made aware of home-bound criteria. She states she is not home-bound and can get in/out of vehicle fairly easily to go places. Discussed OP therapy, but she states she does not want to do that. PT/OT evals are pending. Pt states she thinks her niece, Aubrie, may be able to take her home @ discharge, but she is not sure. Pt plan: Home Plan: TBD. PT/OT evals pending. Follow for any recommendations/needs. Marily SWAINN AYE CM
--- NOTE | 2024-08-23 11:40 | CON.PCM.SX_ITS ---
Assessment & Plan Assessment/Plan (1) Hernia, ventral: PLAN: Plan The patient is a 68-year-old female with multiple medical problems who continues to frequently present with pain at the periumbilical hernia site. Clinically her pain seems to be greatly reduced. She is exhibiting bowel function. I do not suspect small bowel obstruction. As a result I have given her clear liquid diet. Since she is having so many admissions for this hernia, I would recommend having this hernia repaired at some point. This could easily be done as an outpatient. She has seen Dr. Shah in the past. She would need cardiac evaluation before any surgery. At this point I am recommending advancing her diet. She would likely benefit from being on a bowel regimen such as MiraLAX and discharge. Will continue to follow and advise accordingly. No surgical plans during this admission unless symptoms recur. HPI Consult Data Date of Consult: 08/23/24 HPI Narrative Reason for Consultation: Abdominal pain HPI Narrative: ZOIE DE LA PAZ, is a 68 F with multiple medical problems who has had multiple presentations to the [facility] emergency department for symptomatic periumbilical hernia. She presented to the emergency room again last evening with complaints of abdominal discomfort/pain that started midday. This pain and discomfort was mostly on the right side of her abdomen where her known hernia is located. She rated the pain as 8 out of 10. She denies any nausea or vomiting. She was seen evaluate by the ER staff. Workup in the emergency room included blood work as well as a CT scan. The CT scan again confirmed right-sided periumbilical hernia. This contained a small segment of small intestine. There were some fluid-filled loops of bowel in the area and concern for small bowel obstruction was raised. She was subsequently admitted and a surgical consult was obtained. Patient was initially offered NG for decompression but she refused. This morning, patient had a large formed bowel movement and after this, she states that her pain felt much diminished. She denies any significant pain or discomfort at the present time. No nausea or vomiting at the present time. She states that she was hungry and she would like something to drink if possible. [facility] Medical History History of atrial fibrillation Abdominal pain Neuropathic pain Essential (primary) hypertension Cognitive dysfunction ESBL (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 coli infection Wears glasses Former smoker Obesity Ambulates with cane Stroke/cerebrovascular accident Difficulty in walking Poor historian Recurrent incisional hernia with incarceration Incarcerated ventral hernia Obstructive sleep apnea Atrial fibrillation Intraventricular hemorrhage Embolic stroke GERD (gastroesophageal reflux disease) Obesity (BMI 30-39.9) Hyperlipidemia Hypertension Diabetes mellitus Home Medications ?Medication ?Instructions ?Recorded ?Last Taken ?Type omeprazole 20 mg capsule,delayed 20 mg PO DAILY GERd 05/29/14 06/08/24 History release amlodipine 10 mg tablet (Norvasc) 10 mg PO QHS HTN 10/04/16 06/07/24 History apixaban 5 mg tablet (Eliquis) 5 mg PO BID blood thinner 10/04/16 06/08/24 History atorvastatin 80 mg tablet 80 mg PO QHS Cholesterol 10/25/16 06/07/24 Rx lisinopril 40 mg tablet 40 mg PO DAILY HTN 10/25/16 06/08/24 Rx pioglitazone 15 mg tablet 15 mg PO DAILY DM #30 tabs 10/09/22 06/08/24 Rx gabapentin 600 mg tablet 600 mg PO QDAY Nerve Pain 01/01/24 06/08/24 History multivitamin with folic acid 400 1 tab PO DAILY Supplement 05/14/24 06/08/24 History mcg tablet (Daily-Levon (with folic acid)) carvedilol 25 mg tablet 25 mg PO BID BP #60 tabs 05/19/24 06/08/24 Rx cholecalciferol (vitamin D3) 50 50 mcg PO DAILY Supplement 06/08/24 06/08/24 History mcg (2,000 unit) capsule dapagliflozin propanediol 10 mg 10 mg PO DAILY diabetes #30 tabs 06/27/24 Unknown Rx tablet (Farxiga) insulin glargine 100 unit/mL (3 15 unit (0.15 mL) subcut BIDCM DM 06/27/24 Unknown Rx mL) subcutaneous pen (Lantus #5 pens Solostar U-100 Insulin) sennosides 8.6 mg-docusate sodium 1 tab PO BID #60 tabs 06/27/24 Unknown Rx 50 mg tablet (Stimulant Laxative Plus) Allergy/AdvReac Type Severity Reaction Status Date / Time iodine Allergy Mild Itching Verified 08/22/24 19:19 Penicillins Allergy Mild Itching Verified 08/22/24 19:19 Family History Father CVA (cerebral vascular accident) Mother Diabetes Stomach cancer Other High cholesterol Hypertension Surgical History History of cholecystectomy Hx of colonoscopy Status post debridement History of hysterectomy S/P repair of ventral hernia Social History household members: none Smoking Status: Former smoker alcohol intake: never substance use type: does not use caffeine: Yes what type of physical activity do you participate in: walking frequency: daily ROS Eyes Eyes: Reports systems reviewed and no addt'l complaints, except as documented ENT HEENT: Reports systems reviewed and no addt'l complaints, except as documented Cardiovascular Cardiovascular: Reports systems reviewed and no addt'l complaints, except as documented Respiratory/Chest Respiratory/Chest: Reports systems reviewed and no addt'l complaints, except as documented Gastrointestinal Gastrointestinal: Reports systems reviewed and no addt'l complaints, except as documented Genitourinary Genitourinary: Reports systems reviewed and no addt'l complaints, except as documented Musculoskeletal Musculoskeletal: Reports systems reviewed and no addt'l complaints, except as documented Physical Exam Narrative She is awake and alert. She is in no acute distress. Head is normocephalic and atraumatic. Pupils are equal round and reactive to light. Abdomen is obese and soft. There is really no significant areas of pain on palpation. There is some very slight discomfort with palpation of the hernia. This seems fairly benign at this point. Lab / Micro Data Attestation: I reviewed the patient's lab results. 08/23/24 06:20 08/23/24 06:20 Labs: Laboratory Results - last 24 hr 08/22/24 19:37: WBC 6.9, RBC 5.63 H, Hgb 13.7, Hct 44.3, MCV 78.7 L, MCH 24.3 L, MCHC 30.9 L, RDW Std Deviation 51.8 H, RDW Coeff of Faby 18.9 H, Plt Count 252, MPV 9.2, Immature Gran % (Auto) 0.600, Neut % (Auto) 70.2 H, Lymph % (Auto) 19.7, [place] % (Auto) 8.0, Eos % (Auto) 0.9, Baso % (Auto) 0.6, Absolute Neuts (auto) 4.9, Absolute Lymphs (auto) 1.36, Nucleated RBC % 0, Sodium 140, Potassium 4.2, Chloride 108 H, Carbon Dioxide 27.0, Anion Gap 5, BUN 12, Creatinine 0.92, Estim Creat Clear Calc 74.76, Est GFR (MDRD) Af Amer 78, Est GFR (MDRD) Non-Af 64, BUN/Creatinine Ratio 13.1, Glucose 150 H, Lactic Acid 1.9, Calcium 11.2 H, Total Bilirubin 0.50, AST 17, ALT 24, Alkaline Phosphatase 124 H , Total Protein 8.2, Albumin 3.2, Globulin 5.0 H, Albumin/Globulin Ratio 0.6 L, Lipase 43 08/22/24 22:52: POC Glucose 130 H 08/23/24 05:54: POC Glucose 122 H 08/23/24 06:20: WBC 9.9, RBC 5.02, Hgb 12.1, Hct 40.2, MCV 80.1 L, MCH 24.1 L, M CHC 30.1 L, RDW Std Deviation 53.7 H, RDW Coeff of Faby 18.6 H, Plt Count 223, MPV 9.3, Immature Gran % (Auto) 0.400, Neut % (Auto) 78.3 H, Lymph % (Auto) 11.3 L, [place] % (Auto) 9.3, Eos % (Auto) 0.4, Baso % (Auto) 0.3, Absolute Neuts (auto) 7.8 H, Absolute Lymphs (auto) 1.12, Nucleated RBC % 0, Sodium 140, Potassium 4.4, Chloride 112 H, Carbon Dioxide 23.0, Anion Gap 6, BUN 17, Creatinine 1.04 H , Estim Creat Clear Calc 65.67, Est GFR (MDRD) Af Amer 67, Est GFR (MDRD) Non-Af 56 L, BUN/Creatinine Ratio 16.3, Glucose 149 H, Calcium 10.2 H, Phosphorus 4.2, Magnesium 1.5 L, Total Bilirubin 0.40, AST 15, ALT 19, Alkaline Phosphatase 105, Total Protein 6.8, Albumin 2.6 L, Globulin 4.2, Albumin/Globulin Ratio 0.6 L 08/23/24 07:08: Ionized Calcium 1.38 H 08/23/24 09:44: POC Glucose 146 H Imaging Radiology Impression Abdomen/Pelvis CT 08/22/24 19:38 IMPRESSION: 1. Bowel containing hernia associated with multiple dilated loops of small bowel with air-fluid levels slightly worse when compared to prior examination. This is consistent with bowel obstruction. 2. Diverticulosis of the colon without evidence of acute diverticulitis. Electronically Signed: Daryl Dangelo DO at 20:11 EST , Charges/Coding Visit Charges Inpatient E&M: 74861 Init Hosp L3
[2024-08-23 12:23] LABS: Bedside Glucose 128 mg/dL (74-106)
--- NOTE | 2024-08-23 13:08 | PCM.PROGNOTE ---
Subjective Subjective Patient seen and examined. She was lying in bed comfortably watching TV. She denied any abdominal pain, palpitations, dizziness or any other symptoms. She is passing gas. Review of systems is otherwise negative. Objective Data Objective Data Vital Signs: Vital Signs Temp Pulse Resp BP Pulse Ox O2 Del Method O2 Flow Rate 99.0 F 60 18 106/48 L 95 Nasal Cannula 2 08/23/24 09:45 08/23/24 09:50 08/23/24 09:45 08/23/24 09:45 08/23/24 09:45 08/23/24 09:50 08/23/24 11:32 Oxygen Flow Rate (L/min) 2 Oxygen Delivery Method Nasal Cannula Weight: 253 lb Body Mass Index (BMI) 40.8 Intake & Output: Intake and Output for Last 24 Hours 08/21/24 08/22/24 08/23/24 23:59 23:59 23:59 Intake Total 111.67 / 111.67 110 / 110 Balance 111.67 / 111.67 110 / 110 Lab / Micro Data 08/23/24 06:20 08/23/24 06:20 Labs: Laboratory Results - last 24 hr 08/22/24 19:37: WBC 6.9, RBC 5.63 H, Hgb 13.7, Hct 44.3, MCV 78.7 L, MCH 24.3 L, MCHC 30.9 L, RDW Std Deviation 51.8 H, RDW Coeff of Faby 18.9 H, Plt Count 252, MPV 9.2, Immature Gran % (Auto) 0.600, Neut % (Auto) 70.2 H, Lymph % (Auto) 19.7, [place] % (Auto) 8.0, Eos % (Auto) 0.9, Baso % (Auto) 0.6, Absolute Neuts (auto) 4.9, Absolute Lymphs (auto) 1.36, Nucleated RBC % 0, Sodium 140, Potassium 4.2, Chloride 108 H, Carbon Dioxide 27.0, Anion Gap 5, BUN 12, Creatinine 0.92, Estim Creat Clear Calc 74.76, Est GFR (MDRD) Af Amer 78, Est GFR (MDRD) Non-Af 64, BUN/Creatinine Ratio 13.1, Glucose 150 H, Lactic Acid 1.9, Calcium 11.2 H, Total Bilirubin 0.50, AST 17, ALT 24, Alkaline Phosphatase 124 H, Total Protein 8.2, Albumin 3.2, Globulin 5.0 H, Albumin/Globulin Ratio 0.6 L, Lipase 43 08/22/24 22:52: POC Glucose 130 H 08/23/24 05:54: POC Glucose 122 H 08/23/24 06:20: WBC 9.9, RBC 5.02, Hgb 12.1, Hct 40.2, MCV 80.1 L, MCH 24.1 L, MCHC 30.1 L, RDW Std Deviation 53.7 H, RDW Coeff of Faby 18.6 H, Plt Count 223, MPV 9.3, Immature Gran % (Auto) 0.400, Neut % (Auto) 78.3 H, Lymph % (Auto) 11.3 L, [place] % (Auto) 9.3, Eos % (Auto) 0.4, Baso % (Auto) 0.3, Absolute Neuts (auto) 7.8 H, Absolute Lymphs (auto) 1.12, Nucleated RBC % 0, Sodium 140, Potassium 4.4, Chloride 112 H, Carbon Dioxide 23.0, Anion Gap 6, BUN 17, Creatinine 1.04 H, Estim Creat Clear Calc 65.67, Est GFR (MDRD) Af Amer 67, Est GFR (MDRD) Non-Af 56 L, BUN/Creatinine Ratio 16.3, Glucose 149 H, Calcium 10.2 H, Phosphorus 4.2, Magnesium 1.5 L, Total Bilirubin 0.40, AST 15, ALT 19, Alkaline Phosphatase 105, Total Protein 6.8, Albumin 2.6 L, Globulin 4.2, Albumin/Globulin Ratio 0.6 L 08/23/24 07:08: Ionized Calcium 1.38 H 08/23/24 09:44: POC Glucose 146 H 08/23/24 11:55: POC Glucose 128 H Radiography Diagnostic Testing: Radiology Impression Abdomen/Pelvis CT 08/22/24 19:38 IMPRESSION: 1. Bowel containing hernia associated with multiple dilated loops of small bowel with air-fluid levels slightly worse when compared to prior examination. This is consistent with bowel obstruction. 2. Diverticulosis of the colon without evidence of acute diverticulitis. Electronically Signed: Daryl Dangelo DO at 20:11 EST , Physical Exam Const alert, oriented x3, no apparent distress and well nourished Constitutional Narrative: obese General Appearance: cooperative HEENT normocephalic, head/scalp atraumatic and moist oral mucous membranes Eyes PERRL and EOMs intact bilaterally Neck no lymphadenopathy and supple Lymph Lymphatic: no lymphadenopathy noted and no lymphedema noted Resp normal respiratory effort, normal air movement and clear to auscultation bilaterally Cardio regular rate, regular rhythm, S1 normal heart sound, S2 normal heart sound and no murmurs GI GI Narrative: morbidly obese abdomen, soft, nontender, passing gas, difficult to palpate for organomegaly due to obese abdomen. Extremity normal capillary refill, no clubbing, cyanosis or edema and no calf tenderness General Extremity: no tenderness to palpation of joints or extremities Skin General Skin Exam: no breakdown and turgor normal Neuro CN's II-XII intact bilaterally, no focal motor deficits and no sensory deficits noted Motor Exam: strength 5/5 throughout and general weakness Psych thought process normal, cooperative and affect normal Appearance: appropriate Assessment & Plan Assessment/Plan (1) Bowel obstruction: PLAN: Plan #Small bowel obstruction Admitted with a complaint of abdominal pain, nausea and vomiting. CT of the abdomen and pelvis showed bowel containing hernia assisted with multiple dilated loops of small bowel study which when compared to previous consistent with bowel obstruction Currently NPO. Hydrated with IV fluids. General surgery on board. IV morphine as needed for pain. #Persistent hypercalcemia Calcium is 11.2. Vitamin D, PTH, magnesium and phosphorus levels ordered. On vitamin D3 supplementation which has been held and will discontinue on discharge. #Type 2 diabetes mellitus with chronic neuropathy: Oral meds on hold. Hold Lantus also. Insulin sliding scale. Accu-Cheks ACHS. Gabapentin also held. General surgery consulted. This with patient today and general surgery recommends starting on a clear liquid diet. Per general surgery she has had so many admissions for periumbilical hernia and small bowel obstruction so recommendation is to have the hernia repaired at some point but this can be done on outpatient basis. Diet to be advanced. #History of CVA And resultant cognitive impairment. Eliquis on hold as she is NPO #Paroxysmal afib: on metoprolol. Eliquis held. #Hypertension: oral BP meds held. IV hydralazine as needed. Resume BP meds as she is now on a diet. #Hyperlipidemia: On statin which is on hold as she is NPO. #GERD: On PPI DVT prophylaxis: On Lovenox. Eliquis held as she is NPO. She is now on a diet so resume eliquis Charges/Coding Visit Charges Inpatient E&M: 62633 Subs Hosp L2
--- NOTE | 2024-08-23 13:10 | RAD_ITS ---
INDICATION: Small bowel obstruction EXAMINATION/TECHNIQUE: X-RAY - XR Abdomen 1 View COMPARISON: CT dated August 22, 2024 FINDINGS: BOWEL GAS PATTERN: There is a moderate amount of gas within the stomach associated with distention. FREE AIR: Not assessed on a single supine view. ORGANOMEGALY: Not seen. CALCIFICATIONS: No abnormal calcifications observed. LOWER CHEST: No acute pathology. BONES AND SOFT TISSUES: No acute pathology. There are vascular calcifications. There are surgical clips projecting over the pelvis. RAD/Abdomen Single View (Portable) IMPRESSION: Moderate amount of gas within a distended stomach. Electronically Signed: Marie Perez MD at 16:47 EST ,
--- NOTE | 2024-08-23 13:32 | CASEMGMT ---
Addendum entered by Deana Lopez 08/23/24 14:58: Social Work SW left a message for APS, this pt would benefit from APS follow up when she returns home. CHRISTOS Ludwig Original Note: Social Work SW met w/pt, inquired about her going somewhere for rehab rather than returning home. Pt states no, she will go home. SW explained can have the SW on Sunday follow up if she is still here, once she has had more therapy on the weekend. SW did provide to pt a list of [facility] facilities in network w/pt's insurance, in pt's preferred geographic area, and complete w/quality and resource use data should it be needed. KELLY did call Kera Maryelly at [facility], she is out until September 03. SW left a message letting the coverage staff know that pt may be d/c on the weekend, and to call SW on Sunday should they have any questions. CHRISTOS Ludwig
--- NOTE | 2024-08-23 14:51 | CASEMGMT ---
AYE CHAUDHRY NOTE: Therapy worked w/pt today. Pt only able to ambulate 5 ft, additional therapy recommended. Per SW, pt declines wanting SNF. AYE CHAUDHRY back to room. Pt continues to state she wants to go home, stating, I'll be okay. She declines wanting HHC, again stating she is not homebound and she does not think she will be homebound once returning home. Therapy to continue to work with pt. CM or SW to follow on Sunday for any discharge needs, if pt has not been discharged. Marily SWAINN AYE CHAUDHRY
[2024-08-23 16:16] LABS: Bedside Glucose 165 mg/dL (74-106)
[2024-08-23] MEDS: Carvedilol 25 MG Tablet PO (16:19)
[2024-08-23] MEDS: Insulin Lispro 100 UNIT/ML INSULN.PEN SC (16:19)
[2024-08-23 16:41] LABS: Bedside Glucose 152 mg/dL (74-106)
[2024-08-23] MEDS: Atorvastatin Calcium 80 MG Tablet PO (22:14)
[2024-08-23] MEDS: APIXABAN 5 MG TABLET PO (22:14)
[2024-08-24] VITALS (9 sets, daily range): BP systolic 84–115; BP diastolic 32–58; PULSE 75–91; RESP 18–20; TEMP 36.4–36.9; O2SAT 92–98; BMI 40.8
[2024-08-24 01:07] LABS: Bedside Glucose 69 mg/dL (74-106)
[2024-08-24 01:41] LABS: Bedside Glucose 111 mg/dL (74-106)
[2024-08-24] MEDS: Nystatin Powder 15gm Bottle 1 APPLIC TOPICAL ×3 (05:57→22:30)
[2024-08-24 06:21] LABS: Bedside Glucose 86 mg/dL (74-106)
[2024-08-24 06:49] LABS: Absolute Lymphocyte Count 1.62 X10^3/uL (0.83-4.51); Absolute Neutrophil Count 2.6 X10^3/uL (2.0-7.7); Basophil# 0.02 X10^3/uL; Basophil% 0.4 % (0-1); Eosinophils% 2.1 % (0-5); Hematocrit 36.7 % (37-47); Hemoglobin 10.9 g/dL (12.0-15.0); Lymphocyte # 1.62 X10^3/ul (0.83-4.51); Lymphocyte % 33.8 % (19-41); Mean Corp Hgb Conc 29.7 g/dL (32-36); Mean Corpuscular Hgb 23.8 pg (27.0-32.0); Mean Corpuscular Volume 80.1 fL (81-99); Mean Platelet Vol. 9.2 fl (6.2-12.0); Monocyte# 0.48 X10^3/uL; NRBC Flagged by Analyzer 0 % (0-5); Neutrophil # 2.56 X10^3/uL (2.7-7.7); Neutrophil % 53.5 % (47-70); Platelet Count 196 K/mm3 (150-450); RBC Distribution Width CV 18.6 % (11.6-14.6); RBC Distribution Width SD 53.3 fl (35.1-43.9); Red Blood Count 4.58 M/mm3 (4.2-5.4); White Blood Count 4.8 K/mm3 (4.4-11.0)
[2024-08-24 07:51] LABS: Anion Gap 3 (5-15); BUN 16 mg/dL (7-18); BUN/Creat Ratio 21.9 RATIO (10-20); Calcium,Total 9.8 mg/dL (8.5-10.1); Chloride 112 mmol/L (98-107); Creatinine, Serum 0.73 mg/dL (0.55-1.02); EST Glomerular Filtration Rate 84 mL/min (>60); Est Glom Filt Rate - Afr Amer 102 mL/min (>60); Estimated Creatinine Clearance 85.58 ml/min; Glucose 78 mg/dL (74-106); Potassium 3.9 mmol/L (3.5-5.1); Sodium Level 138 mmol/L (136-145)
[2024-08-24] MEDS: Gabapentin 600 MG Tablet PO (08:13)
[2024-08-24] MEDS: APIXABAN 5 MG TABLET PO ×2 (08:13→22:34)
[2024-08-24] MEDS: Carvedilol 25 MG Tablet PO (08:13)
[2024-08-24] MEDS: Menthol/Lanolin/Calamine/Znox 113 GM Tube 1 APPLIC TOPICAL ×2 (10:40→22:35)
[2024-08-24] MEDS: Pantoprazole Sodium 40 MG Tablet PO (10:41)
[2024-08-24 11:52] LABS: Bedside Glucose 144 mg/dL (74-106)
--- NOTE | 2024-08-24 12:17 | PN.SURG_ITS ---
Subjective Subjective Patient doing well this morning. She denies any significant abdominal pain. She has been tolerating diet advancement. She would like to try to go home later today if possible. Objective Data Objective Data Vital Signs: Vital Signs Temp Pulse Resp BP Pulse Ox O2 Del Method O2 Flow Rate 97.5 F L 75 18 110/32 L 94 Room Air 2 08/24/24 10:46 08/24/24 10:46 08/24/24 10:46 08/24/24 10:46 08/24/24 10:46 08/24/24 10:46 08/23/24 11:32 Oxygen Flow Rate (L/min) 2 Oxygen Delivery Method Room Air Weight: 254 lb 1.324 oz Body Mass Index (BMI) 40.8 Intake & Output: Intake and Output for Last 24 Hours 08/22/24 08/23/24 08/24/24 23:59 23:59 23:59 Intake Total 111.67 / 111.67 1518.33 / 1518.33 200 / 200 Output Total 150 / 150 Balance 111.67 / 111.67 1518.33 / 1518.33 50 / 50 Lab / Micro Data 08/24/24 06:15 08/24/24 06:15 Labs: Laboratory Results - last 24 hr 08/23/24 11:55: POC Glucose 128 H 08/23/24 15:57: POC Glucose 165 H 08/23/24 16:17: POC Glucose 152 H 08/24/24 00:39: POC Glucose 69 L 08/24/24 01:22: POC Glucose 111 H 08/24/24 05:55: POC Glucose 86 08/24/24 06:15: WBC 4.8, RBC 4.58, Hgb 10.9 L, Hct 36.7 L, MCV 80.1 L, MCH 23.8 L, MCHC 29.7 L, RDW Std Deviation 53.3 H, RDW Coeff of Faby 18.6 H, Plt Count 196, MPV 9.2, Immature Gran % (Auto) 0.200, Neut % (Auto) 53.5, Lymph % (Auto) 33.8, [place] % (Auto) 10.0, Eos % (Auto) 2.1, Baso % (Auto) 0.4, Absolute Neuts (auto) 2.6, Absolute Lymphs (auto) 1.62, Nucleated RBC % 0, Sodium 138, Potassium 3.9, Chloride 112 H, Carbon Dioxide 24.0, Anion Gap 3 L, BUN 16, Creatinine 0.73, Estim Creat Clear Calc 85.58, Est GFR (MDRD) Af Amer 102, Est GFR (MDRD) Non-Af 84, BUN/Creatinine Ratio 21.9 H, Glucose 78, Calcium 9.8 08/24/24 11:34: POC Glucose 144 H Radiography Diagnostic Testing: Radiology Impression KUB X-Ray 08/23/24 13:10 IMPRESSION: Moderate amount of gas within a distended stomach. Electronically Signed: Marie Perez MD at 16:47 EST , Physical Exam Narrative She is alert and oriented x 3. She is in no acute distress. Abdomen is obese and soft. Minimal tenderness to palpation over lying right sided periumbilical hernia. This seems to be most consistent with her normal baseline abdominal exam Assessment & Plan Assessment/Plan (1) Hernia, ventral: PLAN: Plan The patient is a 68-year-old female with a chronic right sided Izabella-umbilical ventral hernia. She seems to be asymptomatic at the present time. She is tolerating diet. I feel that it is safe to advance her diet and possibly discharge her home later today if she continues to tolerate diet. Would recommend that she follow-up in our office in the near future to discuss possible hernia repair. She has seen Dr. Shah for this hernia in the past. I think it may be worthwhile repairing this hernia especially in light of the fact that she has had numerous ER visits/hospital admissions in the past several months as related to this hernia. She is agreeable to this plan. This was communicated to the hospitalist taking care of this patient Charges/Coding Visit Charges Inpatient E&M: 68326 Subs Hosp L2
--- NOTE | 2024-08-24 13:33 | DCINST_ITS ---
Discharge Instructions Diet Discharge Diet: Low fat / Low cholesterol DC O2, CPAP, BIPAP needs Home O2 Discharge instructions: No Dressing / Incision Discharge Activity: Return to Normal Activity Weight Bearing Status: Weight bearing as tolerated Dressing / Incision Call your doctor if you observe: Fever of 101 or Higher, Shortness of breath, Dizziness, Swelling in the ankles and Chest pain Follow Up Care Test Results: Test results from this visit will be discussed in further detail at your follow- up appointment, if applicable. Discharge Plan Admission Admit Date/Time: 08/22/24 20:59 Primary Reason for Your Visit: small bowel obstruction Attending Provider: Sharyn Viveros Primary Care Provider: Dennis Pelayo Consulting Providers: Pantera Aldridge; Naima Mason Instructions Patient Instructions: Small Bowel Obstruction Discharge Orders/Prescriptions Prescriptions: Continued gabapentin 600 mg tablet 600 mg PO QDAY omeprazole 20 MG capsule 20 mg PO DAILY amlodipine [Norvasc] 10 MG tablet 10 mg PO QHS Eliquis 5 MG tablet 5 mg PO BID atorvastatin 80 MG tablet 80 mg PO QHS 0RF lisinopril 40 MG tablet 40 mg PO DAILY 0RF sennosides-docusate sodium [Stimulant Laxative Plus] 8.6-50 mg Tablet 1 tab PO BID Qty: 60 0RF dapagliflozin propanediol [Farxiga] 10 mg tablet 10 mg PO DAILY Qty: 30 0RF insulin glargine [Lantus Solostar U-100 Insulin] 100 unit/mL (3 mL) insulin pen 15 unit subcut BIDCM Qty: 5 0RF multivitamin with folic acid [Daily-Levon (with folic acid)] 400 mcg tablet 1 tab PO DAILY carvedilol 25 mg tablet 25 mg PO BID Qty: 60 0RF Rx Instructions: must administer with a meal/food cholecalciferol (vitamin D3) 50 mcg (2,000 unit) capsule 50 mcg PO DAILY pioglitazone 15 mg tablet 15 mg PO DAILY Qty: 30 3RF Referrals / Follow Up: Dennis Pelayo DO [Primary Care Provider] - Within 1 Week Pantrea Aldridge MD [Med Staff - Active Staff] - Within 1 Week Disposition Disposition (needs filled in before D/C Order can be placed): Home, Self Care
--- NOTE | 2024-08-24 13:34 | PCM.DC.SUM ---
Providers Date of Admission: 08/22/24 Date of Discharge: 08/24/24 Primary Care Physician: Dr. Dennis Pelayo, DO Consultations 08/22/24 22:12 Consult: General Surgery Routine Consulting Provider: aPntera Aldridge Reason for Consult: Complicated SBO EMERGENT Consult: No MD Notified: Yes Date Notified: 08/22/24 Time Notified: 21:02 Method of Notification: ED Physician Initiated Reason For Visit: COMPLICATED SBO Diagnosis Discharge Diagnosis (1) Hernia, ventral: Status: Acute Code(s): K43.9 - Ventral hernia without obstruction or gangrene Plan #Small bowel obstruction Admitted with a complaint of abdominal pain, nausea and vomiting. CT of the abdomen and pelvis showed bowel containing hernia assisted with multiple dilated loops of small bowel study which when compared to previous consistent with bowel obstruction Currently NPO. Hydrated with IV fluids. General surgery on board. IV morphine as needed for pain. #Persistent hypercalcemia Calcium is 11.2. Vitamin D, PTH, magnesium and phosphorus levels ordered. On vitamin D3 supplementation which has been held and will discontinue on discharge. #Type 2 diabetes mellitus with chronic neuropathy: Oral meds on hold. Hold Lantus also. Insulin sliding scale. Accu-Cheks ACHS. Gabapentin also held. General surgery consulted. This with patient today and general surgery recommends starting on a clear liquid diet. Per general surgery she has had so many admissions for periumbilical hernia and small bowel obstruction so recommendation is to have the hernia repaired at some point but this can be done on outpatient basis. Diet to be advanced. #History of CVA And resultant cognitive impairment. Eliquis on hold as she is NPO #Paroxysmal afib: on metoprolol. Eliquis held. #Hypertension: oral BP meds held. IV hydralazine as needed. Resume BP meds as she is now on a diet. #Hyperlipidemia: On statin which is on hold as she is NPO. #GERD: On PPI DVT prophylaxis: On Lovenox. Eliquis held as she is NPO. She is now on a diet so resume eliquis Medications at Discharge Home Medications omeprazole 20 mg capsule,delayed release 20 mg PO DAILY GERd 05/29/14 amlodipine 10 mg tablet (Norvasc) 10 mg PO QHS HTN 10/04/16 apixaban 5 mg tablet (Eliquis) 5 mg PO BID blood thinner 10/04/16 atorvastatin 80 mg tablet 80 mg PO QHS Cholesterol 10/25/16 lisinopril 40 mg tablet 40 mg PO DAILY HTN 10/25/16 pioglitazone 15 mg tablet 15 mg PO DAILY DM #30 tabs 10/09/22 gabapentin 600 mg tablet 600 mg PO QDAY Nerve Pain 01/01/24 multivitamin with folic acid 400 mcg tablet (Daily-Levon (with folic acid)) 1 tab PO DAILY Supplement 05/14/24 carvedilol 25 mg tablet 25 mg PO BID BP #60 tabs 05/19/24 cholecalciferol (vitamin D3) 50 mcg (2,000 unit) capsule 50 mcg PO DAILY Supplement 06/08/24 dapagliflozin propanediol 10 mg tablet (Farxiga) 10 mg PO DAILY diabetes #30 tabs 06/27/24 insulin glargine 100 unit/mL (3 mL) subcutaneous pen (Lantus Solostar U-100 Insulin) 15 unit (0.15 mL) subcut BIDCM DM #5 pens 06/27/24 sennosides 8.6 mg-docusate sodium 50 mg tablet (Stimulant Laxative Plus) 1 tab PO BID #60 tabs 06/27/24 Hospital Course Operations None Procedures None Summary of Care Provided Minutes Spent on Discharge: 45 Hospital Course: Patient is a 68-year-old female with an extensive past medical history as outlined which includes a ventral hernia and morbid obesity was admitted to the ED on 08/22/2024 with complaint of abdominal pain. He had started a few hours prior to admission and started while she was eating. He stated the pain was mainly around her hernia. She has had a history of recurrent bowel obstruction. She denied any fever, chills, nausea or vomiting. CT of the abdomen and pelvis done in the ED showed bowel containing hernia associated with multiple dilated loops of small bowel with air-fluid levels slightly worse when compared to previous consistent with bowel obstruction. She was admitted to the service of internal medicine and managed for acute small bowel obstruction in the setting of a ventral hernia. He was kept n.p.o. and hydrated with IV fluids. General surgery was consulted. Patient exhibited bowel function and her abdominal pain significantly reduced. She was able to pass gas and have a bowel movement so she was started on a clear liquid diet. Per general surgery since she had had too many admissions for this hernia, it was recommended that patient have the hernia repaired as a port and this could be done on outpatient basis. She would need cardiac evaluation prior to any surgery. Patient tolerated the diet and abdominal pain completely resolved. She was therefore discharged home on 08/04/2024. She is to follow-up with general surgery and with her primary care doctor within 1 to 2 weeks. Patient seen and examined prior to discharge. She felt very well and had no complaints. She eagerly asked about discharge as she says she wanted to be discharged home today. Review of systems otherwise negative. Labs and vitals reviewed. Medication reviewed and reconciled. Physical Exam Const alert, oriented x3, no apparent distress and well nourished Constitutional Narrative: obese General Appearance: cooperative and comfortable Orientation / Consciousness: awake Exam Limitations: no limitations HEENT normocephalic, head/scalp atraumatic, hearing grossly normal bilaterally and moist oral mucous membranes Mouth: oral and palatal mucosa normal Eyes PERRL and EOMs intact bilaterally Neck no lymphadenopathy and supple Lymph Lymphatic: no lymphadenopathy noted and no lymphedema noted Resp normal respiratory effort, normal air movement and clear to auscultation bilaterally Cardio regular rate, regular rhythm, S1 normal heart sound, S2 normal heart sound and no murmurs GI GI Narrative: morbidly obese abdomen, soft, nontender, passing gas, difficult to palpate for organomegaly due to obese abdomen. Extremity normal to inspection, full ROM, normal capillary refill, no clubbing, cyanosis or edema and no calf tenderness General Extremity: no tenderness to palpation of joints or extremities Skin no rashes or lesions noted General Skin Exam: no breakdown and turgor normal Neuro oriented x3, CN's II-XII intact bilaterally, moves all extremities, no focal motor deficits and no sensory deficits noted Sensorium / Orientation: awake Motor Exam: strength 5/5 throughout and general weakness Psych thought process normal, cooperative and affect normal Appearance: appropriate Weight / BMI Weight Weight: 254 lb 1.324 oz Body Mass Index (BMI) 40.8 ABG / Lab / Microbiology Data 08/24/24 06:15 08/24/24 06:15 Laboratory: Laboratory Results - last 24 hr 08/23/24 15:57: POC Glucose 165 H 08/23/24 16:17: POC Glucose 152 H 08/24/24 00:39: POC Glucose 69 L 08/24/24 01:22: POC Glucose 111 H 08/24/24 05:55: POC Glucose 86 08/24/24 06:15: WBC 4.8, RBC 4.58, Hgb 10.9 L, Hct 36.7 L, MCV 80.1 L, MCH 23.8 L, MCHC 29.7 L, RDW Std Deviation 53.3 H, RDW Coeff of Faby 18.6 H, Plt Count 196, MPV 9.2, Immature Gran % (Auto) 0.200, Neut % (Auto) 53.5, Lymph % (Auto) 33.8, [place] % (Auto) 10.0, Eos % (Auto) 2.1, Baso % (Auto) 0.4, Absolute Neuts (auto) 2.6, Absolute Lymphs (auto) 1.62, Nucleated RBC % 0, Sodium 138, Potassium 3.9, Chloride 112 H, Carbon Dioxide 24.0, Anion Gap 3 L, BUN 16, Creatinine 0.73, Estim Creat Clear Calc 85.58, Est GFR (MDRD) Af Amer 102, Est GFR (MDRD) Non-Af 84, BUN/Creatinine Ratio 21.9 H, Glucose 78, Calcium 9.8 08/24/24 11:34: POC Glucose 144 H Radiography Diagnostic Testing: Radiology Impression KUB X-Ray 08/23/24 13:10 IMPRESSION: Moderate amount of gas within a distended stomach. Electronically Signed: Marie Perez MD at 16:47 EST Reading Location ID and State: [facility] / [place] Tel , Service support , D/C Instructions Discharge Diet: Low fat / Low cholesterol Discharge Activity: Return to Normal Activity Weight Bearing Status: Weight bearing as tolerated Call your doctor if you observe: Fever of 101 or Higher, Shortness of breath, Dizziness, Swelling in the ankles and Chest pain DC O2, CPAP, BIPAP Needs Home O2 Discharge instructions: No DC home with Oxygen: No Meaningful Use Info Meaningful Use Meaningful Use Diagnoses (Choose all that apply): None applicable Ischemic Stroke Statin Dosing Therapy Reference: STATIN DOSE THERAPY REFERENCE: * Patients > 75 years receive moderate or high dose statin therapy. * Patients 75 years or YOUNGER should receive HIGH intensity statin dose unless contraindicated. You will be required to document reason for non-treatment if statin daily dose does not meet guidelines. HIGH DOSE STATIN THERAPY DAILY Atorvastatin > than or = to 40 mg Rosuvastatin > than or = to 20 mg Amlodipine + Atorvastatin > than or = to 2.5/40 mg Ezetimibe + Simvastatin 10/80 mg Simvastatin 80mg Discharge Plan Admission Admit Date/Time: 08/22/24 20:59 Primary Reason for Your Visit: small bowel obstruction Attending Provider: Sharyn Viveros Primary Care Provider: Dennis Pelayo Consulting Providers: Pantera Aldrigde; Naima Mason Instructions Patient Instructions: Small Bowel Obstruction Discharge Orders/Prescriptions Prescriptions: Continued gabapentin 600 mg tablet 600 mg PO QDAY omeprazole 20 MG capsule 20 mg PO DAILY amlodipine [Norvasc] 10 MG tablet 10 mg PO QHS Eliquis 5 MG tablet 5 mg PO BID atorvastatin 80 MG tablet 80 mg PO QHS 0RF lisinopril 40 MG tablet 40 mg PO DAILY 0RF sennosides-docusate sodium [Stimulant Laxative Plus] 8.6-50 mg Tablet 1 tab PO BID Qty: 60 0RF dapagliflozin propanediol [Farxiga] 10 mg tablet 10 mg PO DAILY Qty: 30 0RF insulin glargine [Lantus Solostar U-100 Insulin] 100 unit/mL (3 mL) insulin pen 15 unit subcut BIDCM Qty: 5 0RF multivitamin with folic acid [Daily-Levon (with folic acid)] 400 mcg tablet 1 tab PO DAILY carvedilol 25 mg tablet 25 mg PO BID Qty: 60 0RF Rx Instructions: must administer with a meal/food cholecalciferol (vitamin D3) 50 mcg (2,000 unit) capsule 50 mcg PO DAILY pioglitazone 15 mg tablet 15 mg PO DAILY Qty: 30 3RF Referrals / Follow Up: Dennis Pelayo DO [Primary Care Provider] - Within 1 Week Pantera Aldridge MD [Med Staff - Active Staff] - Within 1 Week Disposition Disposition (needs filled in before D/C Order can be placed): Home, Self Care Charges/Coding Visit Charges Inpatient E&M: 33508 Disch Hosp >30min
--- NOTE | 2024-08-24 14:54 | PN_ITS ---
Subjective Subjective Patient seen and examined. She had no complaints. Plan was actually to discharge patient today. Patient was actually discharged but her blood pressure subsequently dropped to 77/48 and also 88/48 on recheck manually. Orthostatics were negative. Decision made to cancel discharge and hydrate patient with IV fluids. She remained asymptomatic. Objective Data Objective Data Vital Signs: Vital Signs Temp Pulse Resp BP Pulse Ox O2 Del Method O2 Flow Rate 98.0 F 89 18 115/50 L 98 Room Air 2 08/24/24 14:21 08/24/24 14:29 08/24/24 14:21 08/24/24 14:29 08/24/24 14:21 08/24/24 14:21 08/23/24 11:32 Oxygen Flow Rate (L/min) 2 Oxygen Delivery Method Room Air Weight: 254 lb 1.324 oz Body Mass Index (BMI) 40.8 Intake & Output: Intake and Output for Last 24 Hours 08/22/24 08/23/24 08/24/24 23:59 23:59 23:59 Intake Total 111.67 / 111.67 1518.33 / 1518.33 200 / 200 Output Total 150 / 150 Balance 111.67 / 111.67 1518.33 / 1518.33 50 / 50 Lab / Micro Data 08/24/24 06:15 08/24/24 06:15 Labs: Laboratory Results - last 24 hr 08/23/24 15:57: POC Glucose 165 H 08/23/24 16:17: POC Glucose 152 H 08/24/24 00:39: POC Glucose 69 L 08/24/24 01:22: POC Glucose 111 H 08/24/24 05:55: POC Glucose 86 08/24/24 06:15: WBC 4.8, RBC 4.58, Hgb 10.9 L, Hct 36.7 L, MCV 80.1 L, MCH 23.8 L, MCHC 29.7 L, RDW Std Deviation 53.3 H, RDW Coeff of Faby 18.6 H, Plt Count 196, MPV 9.2, Immature Gran % (Auto) 0.200, Neut % (Auto) 53.5, Lymph % (Auto) 33.8, [place] % (Auto) 10.0, Eos % (Auto) 2.1, Baso % (Auto) 0.4, Absolute Neuts (auto) 2.6, Absolute Lymphs (auto) 1.62, Nucleated RBC % 0, Sodium 138, Potassium 3.9, Chloride 112 H, Carbon Dioxide 24.0, Anion Gap 3 L, BUN 16, Creatinine 0.73, Estim Creat Clear Calc 85.58, Est GFR (MDRD) Af Amer 102, Est GFR (MDRD) Non-Af 84, BUN/Creatinine Ratio 21.9 H, Glucose 78, Calcium 9.8 08/24/24 11:34: POC Glucose 144 H Radiography Diagnostic Testing: Radiology Impression KUB X-Ray 08/23/24 13:10 IMPRESSION: Moderate amount of gas within a distended stomach. Electronically Signed: Marie Perez MD at 16:47 EST , Physical Exam Const alert, oriented x3, no apparent distress and well nourished Constitutional Narrative: obese General Appearance: cooperative and comfortable Orientation / Consciousness: awake Exam Limitations: no limitations HEENT normocephalic, head/scalp atraumatic, hearing grossly normal bilaterally and moist oral mucous membranes Eyes PERRL and EOMs intact bilaterally Neck no lymphadenopathy and supple Lymph Lymphatic: no lymphadenopathy noted and no lymphedema noted Resp normal respiratory effort, normal air movement and clear to auscultation bilaterally Cardio regular rate, regular rhythm, S1 normal heart sound, S2 normal heart sound and no murmurs GI GI Narrative: morbidly obese abdomen, soft, nontender, passing gas, difficult to palpate for organomegaly due to obese abdomen. Extremity normal to inspection, full ROM, normal capillary refill, no clubbing, cyanosis or edema and no calf tenderness General Extremity: no tenderness to palpation of joints or extremities Skin no rashes or lesions noted General Skin Exam: no breakdown and turgor normal Neuro oriented x3, CN's II-XII intact bilaterally, moves all extremities, no focal motor deficits and no sensory deficits noted Sensorium / Orientation: awake Motor Exam: strength 5/5 throughout and general weakness Psych thought process normal, cooperative and affect normal Appearance: appropriate Assessment & Plan Assessment/Plan (1) Hernia, ventral: PLAN: Plan #Small bowel obstruction * Admitted with a complaint of abdominal pain, nausea and vomiting. CT of the abdomen and pelvis showed bowel containing hernia assisted with multiple dilated loops of small bowel study which when compared to previous consistent with bowel obstruction * Now tolerating a diet and doing well. Per general surgery will need to follow-up with general surgeon outpatient basis for repair of the hernia due to recurrent small bowel obstruction. * General surgery on board. IV morphine as needed for pain. #Persistent hypercalcemia * Calcium is 11.2. Vitamin D, PTH, magnesium and phosphorus levels ordered. * On vitamin D3 supplementation which has been held and will discontinue on discharge. 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 * Hold Lantus also. * Insulin sliding scale. * Accu-Cheks ACHS. * Gabapentin also held. * #History of CVA * And resultant cognitive impairment. * Resume Eliquis. * #Paroxysmal afib: on metoprolol. Eliquis resumed. #Hypertension: BP meds resumed since she has not been started on a diet. #Hyperlipidemia: Statin resumed. #GERD: On PPI DVT prophylaxis: Will resume Eliquis and she is now on a diet. Charges/Coding Visit Charges Inpatient E&M: 31328 Subs Hosp L2
[2024-08-24] MEDS: 0.9% Saline Lock 10 ML Syringe IV (14:57)
[2024-08-24] MEDS: 0.9% Normal Saline (1000mL) 1,000 ML 999 ML IV (15:04)
[2024-08-24] MEDS: 0.9% Normal Saline (1000mL) 1,000 ML 100 ML IV (16:06)
[2024-08-24 16:32] LABS: Bedside Glucose 158 mg/dL (74-106)
[2024-08-24] MEDS: Insulin Lispro 100 UNIT/ML INSULN.PEN SC (16:46)
[2024-08-24] MEDS: Insulin Glargine-YFGN 100 UNIT/ML Pen 15 UNIT SC (16:47)
[2024-08-24] MEDS: Acetaminophen 325 MG Tablet 650 MG PO (22:30)
[2024-08-24] MEDS: Atorvastatin Calcium 80 MG Tablet PO (22:34)
[2024-08-25 01:14] LABS: Bedside Glucose 158 mg/dL (74-106)
[2024-08-25] MEDS: 0.9% Normal Saline (1000mL) 1,000 ML 100 ML IV (02:20)
[2024-08-25 02:30] VITALS: BP 139/63; PULSE 76; RESP 18; TEMP 36.7; O2SAT 94
[2024-08-25 06:00] VITALS: BMI 41.7
[2024-08-25] MEDS: Nystatin Powder 15gm Bottle 1 APPLIC TOPICAL (06:26)
[2024-08-25] MEDS: Insulin Lispro 100 UNIT/ML INSULN.PEN SC (06:27)
[2024-08-25 06:49] LABS: Bedside Glucose 154 mg/dL (74-106)
[2024-08-25 07:17] LABS: Absolute Lymphocyte Count 1.33 X10^3/uL (0.83-4.51); Absolute Neutrophil Count 3.1 X10^3/uL (2.0-7.7); Basophil# 0.02 X10^3/uL; Basophil% 0.4 % (0-1); Hematocrit 37.9 % (37-47); Lymphocyte # 1.33 X10^3/ul (0.83-4.51); Lymphocyte % 26.5 % (19-41); Mean Corpuscular Volume 82.6 fL (81-99); Mean Platelet Vol. 9.3 fl (6.2-12.0); Monocyte# 0.48 X10^3/uL; Monocyte% 9.6 % (0-10); NRBC Flagged by Analyzer 0 % (0-5); Neutrophil # 3.05 X10^3/uL (2.7-7.7); Neutrophil % 60.9 % (47-70); Platelet Count 203 K/mm3 (150-450); RBC Distribution Width CV 18.4 % (11.6-14.6); RBC Distribution Width SD 54.9 fl (35.1-43.9); Red Blood Count 4.59 M/mm3 (4.2-5.4)
[2024-08-25 07:30] VITALS: O2SAT 94
[2024-08-25 07:57] LABS: Anion Gap 4 (5-15); BUN 15 mg/dL (7-18); BUN/Creat Ratio 17.9 RATIO (10-20); Calcium,Total 9.5 mg/dL (8.5-10.1); Chloride 113 mmol/L (98-107); Creatinine, Serum 0.84 mg/dL (0.55-1.02); EST Glomerular Filtration Rate 72 mL/min (>60); Est Glom Filt Rate - Afr Amer 87 mL/min (>60); Estimated Creatinine Clearance 82.52 ml/min; Glucose 158 mg/dL (74-106); Sodium Level 139 mmol/L (136-145)
[2024-08-25 08:14] VITALS: BP 132/68; PULSE 86; RESP 18; TEMP 36.7; O2SAT 98
[2024-08-25] MEDS: Pioglitazone Hydrochloride 15 MG Tablet PO (08:29)
[2024-08-25] MEDS: Gabapentin 600 MG Tablet PO (08:29)
[2024-08-25] MEDS: Insulin Glargine-YFGN 100 UNIT/ML Pen 15 UNIT SC (08:29)
[2024-08-25] MEDS: Pantoprazole Sodium 40 MG Tablet PO (08:29)
[2024-08-25] MEDS: Multivitamins,Therapeutic Tablet 1 TABLET PO (08:29)
[2024-08-25] MEDS: Empagliflozin 25 MG Tablet PO (08:29)
[2024-08-25] MEDS: APIXABAN 5 MG TABLET PO (08:31)
--- NOTE | 2024-08-25 09:03 | PCM.PN.SRG ---
Subjective Subjective Patient evaluated resting comfortably sitting in the chair. She denies any abdominal pain, nausea, vomiting. She is tolerating a regular diet well. She notes having diarrhea, however she had this her prior hospitalization. She states she is aware she needs to follow-up with Dr. Shah for a hernia repair. Objective Data Objective Data Vital Signs: Vital Signs Temp Pulse Resp BP Pulse Ox O2 Del Method O2 Flow Rate 98.1 F 86 18 132/68 H 98 Room Air 2 08/25/24 08:14 08/25/24 08:14 08/25/24 08:14 08/25/24 08:14 08/25/24 08:14 08/25/24 08:14 08/23/24 11:32 Oxygen Flow Rate (L/min) 2 Oxygen Delivery Method Room Air Weight: 259 lb 11.272 oz Body Mass Index (BMI) 41.7 Intake & Output: Intake and Output for Last 24 Hours 08/23/24 08/24/24 08/25/24 23:59 23:59 23:59 Intake Total 1518.33 / 1518.33 1200 / 1550 1650 / 1650 Output Total 150 / 150 Balance 1518.33 / 1518.33 1050 / 1400 1650 / 1650 Lab / Micro Data 08/25/24 06:30 08/25/24 06:30 Labs: Laboratory Results - last 24 hr 08/24/24 11:34: POC Glucose 144 H 08/24/24 16:01: POC Glucose 158 H 08/25/24 00:57: POC Glucose 158 H 08/25/24 06:23: POC Glucose 154 H 08/25/24 06:30: WBC 5.0, RBC 4.59, Hgb 11.0 L, Hct 37.9, MCV 82.6, MCH 24.0 L, MCHC 29.0 L, RDW Std Deviation 54.9 H, RDW Coeff of Faby 18.4 H, Plt Count 203, MPV 9.3, Immature Gran % (Auto) 0.600, Neut % (Auto) 60.9, Lymph % (Auto) 26.5, [place] % (Auto) 9.6, Eos % (Auto) 2.0, Baso % (Auto) 0.4, Absolute Neuts (auto) 3.1, Absolute Lymphs (auto) 1.33, Nucleated RBC % 0, Sodium 139, Potassium 4.0, Chloride 113 H, Carbon Dioxide 22.0, Anion Gap 4 L, BUN 15, Creatinine 0.84, Estim Creat Clear Calc 82.52, Est GFR (MDRD) Af Amer 87, Est GFR (MDRD) Non-Af 72, BUN/Creatinine Ratio 17.9, Glucose 158 H, Calcium 9.5 Physical Exam GI GI Narrative: Abdomen- soft, nontender. Assessment & Plan Assessment/Plan (1) Hernia, ventral: QUALIFIERS: Obstruction and gangrene presence: without obstruction or gangrene Qualified Code(s): K43.9 - Ventral hernia without obstruction or gangrene PLAN: I am following this patient in conjunction with Dr. Aldridge. He will independently evaluate this patient. Patient has seem to return to her baseline She will need to follow-up with Dr. Shah as an outpatient to discuss scheduling a hernia repair Patient notes she does not have a phone at this time We will continue to monitor as needed Ready for discharge from surgery standpoint Charges/Coding Visit Charges Inpatient E&M: 35079 [facility] Hosp L1
[2024-08-25 09:15] LABS: PTHIN 50.4 pg/mL (18.4-80.1)
[2024-08-25 09:20] LABS: Vitamin D,25 Hydroxy 50.5 ng/mL
[2024-08-25 12:31] LABS: Bedside Glucose 209 mg/dL (74-106)
--- NOTE | 2024-08-25 12:43 | CASEMGMT ---
Addendum entered by Ira Holguin 08/25/24 13:02: Received tc back from Gene from [facility], he states they are only able to take pt home at 1:30pm. Spoke to hospitalist who states he will have dc in by then. Spoke with pt nurse who will work on getting pt to main entrance for 1:30pm. Original Note: RN CM into pt room, pt states that she needs transportation home and would like the [facility]. TC to [facility], they can transport pt at 3pm but will call back to confirm this. Pt denies any homegoing needs at this time. She states I just need a ride, the doctor said I can go home. Pt states her niece Aubrie is busy and cannot transport her. Assisted pt with tv remote and pt denies further needs.
--- NOTE | 2024-08-25 13:04 | DCINST_ITS ---
Discharge Instructions Diet Discharge Diet: Low fat / Low cholesterol and 1800 Calorie Control Diet DC O2, CPAP, BIPAP needs Home O2 Discharge instructions: No Dressing / Incision Discharge Activity: Return to Normal Activity Weight Bearing Status: Weight bearing as tolerated Dressing / Incision Call your doctor if you observe: Fever of 101 or Higher, Shortness of breath, Dizziness, Swelling in the ankles and Chest pain Follow Up Care Test Results: Test results from this visit will be discussed in further detail at your follow- up appointment, if applicable. Discharge Plan Admission Admit Date/Time: 08/22/24 20:59 Primary Reason for Your Visit: small bowel obstruction Attending Provider: Dennis Lazcano Primary Care Provider: Dennis Pelayo Consulting Providers: Pantera Aldridge; Naima Mason; Sharyn Viveros Instructions Patient Instructions: Small Bowel Obstruction Discharge Orders/Prescriptions Prescriptions: Continued gabapentin 600 mg tablet 600 mg PO QDAY omeprazole 20 MG capsule 20 mg PO DAILY amlodipine [Norvasc] 10 MG tablet 10 mg PO QHS Eliquis 5 MG tablet 5 mg PO BID atorvastatin 80 MG tablet 80 mg PO QHS 0RF lisinopril 40 MG tablet 40 mg PO DAILY 0RF sennosides-docusate sodium [Stimulant Laxative Plus] 8.6-50 mg Tablet 1 tab PO BID Qty: 60 0RF dapagliflozin propanediol [Farxiga] 10 mg tablet 10 mg PO DAILY Qty: 30 0RF insulin glargine [Lantus Solostar U-100 Insulin] 100 unit/mL (3 mL) insulin pen 15 unit subcut BIDCM Qty: 5 0RF multivitamin with folic acid [Daily-Levon (with folic acid)] 400 mcg tablet 1 tab PO DAILY carvedilol 25 mg tablet 25 mg PO BID Qty: 60 0RF Rx Instructions: must administer with a meal/food pioglitazone 15 mg tablet 15 mg PO DAILY Qty: 30 3RF Discontinued cholecalciferol (vitamin D3) 50 mcg (2,000 unit) capsule 50 mcg PO DAILY Referrals / Follow Up: Dennis Pelayo DO [Primary Care Provider] - Within 1 Week An Shah MD [Med Staff - Active Staff] - See Referral Note (in two weeks) Disposition Disposition (needs filled in before D/C Order can be placed): Home, Self Care
--- NOTE | 2024-08-25 13:07 | PCM.DC.SUM ---
Providers Date of Admission: 08/22/24 Date of Discharge: 08/25/24 Primary Care Physician: Dr. Dennis Pelayo, Consultations 08/22/24 22:12 Consult: General Surgery Routine Consulting Provider: Pantera Aldridge Reason for Consult: Complicated SBO EMERGENT Consult: No MD Notified: Yes Date Notified: 08/22/24 Time Notified: 21:02 Method of Notification: ED Physician Initiated Reason For Visit: COMPLICATED SBO Diagnosis Discharge Diagnosis (1) Hernia, ventral: Status: Acute Code(s): K43.9 - Ventral hernia without obstruction or gangrene Qualifiers: Obstruction and gangrene presence: without obstruction or gangrene Qualified Code(s): K43.9 - Ventral hernia without obstruction or gangrene Plan 1. Small bowel obstruction #2 type 2 diabetes #3 class III obesity #4 paroxysmal A-fib #5 essential hypertension Medications at Discharge Home Medications omeprazole 20 mg capsule,delayed release 20 mg PO DAILY GERd 05/29/14 amlodipine 10 mg tablet (Norvasc) 10 mg PO QHS HTN 10/04/16 apixaban 5 mg tablet (Eliquis) 5 mg PO BID blood thinner 10/04/16 atorvastatin 80 mg tablet 80 mg PO QHS Cholesterol 10/25/16 lisinopril 40 mg tablet 40 mg PO DAILY HTN 10/25/16 pioglitazone 15 mg tablet 15 mg PO DAILY DM #30 tabs 10/09/22 gabapentin 600 mg tablet 600 mg PO QDAY Nerve Pain 01/01/24 multivitamin with folic acid 400 mcg tablet (Daily-Levon (with folic acid)) 1 tab PO DAILY Supplement 05/14/24 carvedilol 25 mg tablet 25 mg PO BID BP #60 tabs 05/19/24 dapagliflozin propanediol 10 mg tablet (Farxiga) 10 mg PO DAILY diabetes #30 tabs 06/27/24 insulin glargine 100 unit/mL (3 mL) subcutaneous pen (Lantus Solostar U-100 Insulin) 15 unit (0.15 mL) subcut BIDCM DM #5 pens 06/27/24 sennosides 8.6 mg-docusate sodium 50 mg tablet (Stimulant Laxative Plus) 1 tab PO BID #60 tabs 06/27/24 Hospital Course Operations None Procedures None Summary of Care Provided Minutes Spent on Discharge: 31 Hospital Course: This 68-year-old white female was seen in the emergency room at [facility] with complaints of ongoing abdominal pain. Patient has a history of a nito-umbilical hernia and states that the pain is in the location of this hernia. Labs revealed a normal white blood cell count, chemistry profile was remarkable for a glucose of 150, calcium is elevated at 11.2, and an abdomen and pelvic CT was performed which showed bowel containing hernia associated with multiple dilated loops of small bowel with air-fluid levels slightly worse when compared with the prior examination-this was consistent with bowel obstruction. General surgery was contacted and recommended an NG tube placement but the patient refused this. Patient was admitted to [place] [address], she was seen in consultation by general surgery. Patient was given IV fluids and was n.p.o. for a time. Patient's abdominal pain resolved and her diet was advanced and she tolerated her diet well. It was recommended that her hernia be repaired as an outpatient. On 08/25/2024, patient was seen and examined: On examination she appeared in good health and spirits, she does not appear to be in any distress. Vital signs as documented. Skin warm and dry and without overt rashes. Neck without JVD, thyroid appears normal, trachea is midline, neck is supple. Lungs clear, normal air movement was noted. Heart exam notable for regular rhythm, normal sounds and absence of murmurs, rubs or gallops. Abdomen unremarkable and without evidence of organomegaly, masses, or abdominal aortic enlargement, bowel sounds are present in all 4 quadrants, no abdominal tenderness was noted. Extremities nonedematous, no cyanosis was noted, no clubbing was noted. Neuro: Cranial nerves II through XII are grossly intact, no focal motor deficits were noted, sensation to light touch and pinprick is intact, motor exam 5/5 throughout. Psych: Patient is alert and oriented x3, she does not appear anxious or depressed, she does not appear agitated. Patient was discharged home in stable condition on 08/25/2024. Weight / BMI Weight Weight: 117.8 kg Body Mass Index (BMI) 41.7 ABG / Lab / Microbiology Data 08/25/24 06:30 08/25/24 06:30 Laboratory: Laboratory Results - last 24 hr 08/23/24 06:20: Vitamin D 25-Hydroxy 50.5, PTH Intact 50.4 08/25/24 00:57: POC Glucose 158 H 08/25/24 06:23: POC Glucose 154 H 08/25/24 06:30: WBC 5.0, RBC 4.59, Hgb 11.0 L, Hct 37.9, MCV 82.6, MCH 24.0 L, MCHC 29.0 L, RDW Std Deviation 54.9 H, RDW Coeff of Faby 18.4 H, Plt Count 203, MPV 9.3, Immature Gran % (Auto) 0.600, Neut % (Auto) 60.9, Lymph % (Auto) 26.5, Emanuel % (Auto) 9.6, Eos % (Auto) 2.0, Baso % (Auto) 0.4, Absolute Neuts (auto) 3.1, Absolute Lymphs (auto) 1.33, Nucleated RBC % 0, Sodium 139, Potassium 4.0, Chloride 113 H, Carbon Dioxide 22.0, Anion Gap 4 L, BUN 15, Creatinine 0.84, Estim Creat Clear Calc 82.52, Est GFR (MDRD) Af Amer 87, Est GFR (MDRD) Non-Af 72, BUN/Creatinine Ratio 17.9, Glucose 158 H, Calcium 9.5 08/25/24 12:13: POC Glucose 209 H D/C Instructions Discharge Diet: Low fat / Low cholesterol and 1800 Calorie Control Diet Weight Bearing Status: Weight bearing as tolerated Call your doctor if you observe: Fever of 101 or Higher, Shortness of breath, Dizziness, Swelling in the ankles and Chest pain DC O2, CPAP, BIPAP Needs Home O2 Discharge instructions: No Meaningful Use Info Meaningful Use Meaningful Use Diagnoses (Choose all that apply): None applicable Ischemic Stroke Statin Dosing Therapy Reference: STATIN DOSE THERAPY REFERENCE: * Patients > 75 years receive moderate or high dose statin therapy. * Patients 75 years or YOUNGER should receive HIGH intensity statin dose unless contraindicated. You will be required to document reason for non-treatment if statin daily dose does not meet guidelines. HIGH DOSE STATIN THERAPY DAILY Atorvastatin > than or = to 40 mg Rosuvastatin > than or = to 20 mg Amlodipine + Atorvastatin > than or = to 2.5/40 mg Ezetimibe + Simvastatin 10/80 mg Simvastatin 80mg Discharge Plan Admission Admit Date/Time: 08/22/24 20:59 Primary Reason for Your Visit: small bowel obstruction Attending Provider: Dennis Lazcano Primary Care Provider: Dennis Pelayo Consulting Providers: Pantera Aldridge; Naima Mason; Sharyn Viveros Instructions Patient Instructions: Small Bowel Obstruction Discharge Orders/Prescriptions Prescriptions: Continued gabapentin 600 mg tablet 600 mg PO QDAY omeprazole 20 MG capsule 20 mg PO DAILY amlodipine [Norvasc] 10 MG tablet 10 mg PO QHS Eliquis 5 MG tablet 5 mg PO BID atorvastatin 80 MG tablet 80 mg PO QHS 0RF lisinopril 40 MG tablet 40 mg PO DAILY 0RF sennosides-docusate sodium [Stimulant Laxative Plus] 8.6-50 mg Tablet 1 tab PO BID Qty: 60 0RF dapagliflozin propanediol [Farxiga] 10 mg tablet 10 mg PO DAILY Qty: 30 0RF insulin glargine [Lantus Solostar U-100 Insulin] 100 unit/mL (3 mL) insulin pen 15 unit subcut BIDCM Qty: 5 0RF multivitamin with folic acid [Daily-Levon (with folic acid)] 400 mcg tablet 1 tab PO DAILY carvedilol 25 mg tablet 25 mg PO BID Qty: 60 0RF Rx Instructions: must administer with a meal/food pioglitazone 15 mg tablet 15 mg PO DAILY Qty: 30 3RF Discontinued cholecalciferol (vitamin D3) 50 mcg (2,000 unit) capsule 50 mcg PO DAILY Referrals / Follow Up: Dennis Pelayo DO [Primary Care Provider] - Within 1 Week An Shha MD [Med Staff - Active Staff] - See Referral Note (in two weeks) Disposition Disposition (needs filled in before D/C Order can be placed): Home, Self Care Charges/Coding Visit Charges Inpatient E&M: 19549 Disch Hosp >30min
--- NOTE | 2024-08-25 13:23 | PHA.DC_ITS ---
Pharmacy [facility] Reconciliation Pharmacy Service has performed discharge medication reconciliation for this patient. The patient's discharge medication list was reviewed for discrepancies and discrepancies were resolved. Medications at Discharge Home Medications omeprazole 20 mg capsule,delayed release 20 mg PO DAILY GERd 05/29/14 amlodipine 10 mg tablet (Norvasc) 10 mg PO QHS HTN 10/04/16 apixaban 5 mg tablet (Eliquis) 5 mg PO BID blood thinner 10/04/16 atorvastatin 80 mg tablet 80 mg PO QHS Cholesterol 10/25/16 lisinopril 40 mg tablet 40 mg PO DAILY HTN 10/25/16 pioglitazone 15 mg tablet 15 mg PO DAILY DM #30 tabs 10/09/22 gabapentin 600 mg tablet 600 mg PO QDAY Nerve Pain 01/01/24 multivitamin with folic acid 400 mcg tablet (Daily-Levon (with folic acid)) 1 tab PO DAILY Supplement 05/14/24 carvedilol 25 mg tablet 25 mg PO BID BP #60 tabs 05/19/24 dapagliflozin propanediol 10 mg tablet (Farxiga) 10 mg PO DAILY diabetes #30 tabs 06/27/24 insulin glargine 100 unit/mL (3 mL) subcutaneous pen (Lantus Solostar U-100 Insulin) 15 unit (0.15 mL) subcut BIDCM DM #5 pens 06/27/24 sennosides 8.6 mg-docusate sodium 50 mg tablet (Stimulant Laxative Plus) 1 tab PO BID #60 tabs 06/27/24
--- NOTE | 2024-08-25 13:23 | CASEMGMT ---
Social Work SW received message that pt's sister Ja, who lives in [place], would like to speak with SW. SW met with pt who gave SW permission to call Ja. Phone call to Ja who states that pt lost her food card, is letting homeless people into her home to sleep and does not have a working phone (Ja sent pt a phone at [place], but pt has not activated it). SW spoke with pt regarding these concerns. Pt states that [facility] RICHA Kera assisted pt in calling [employer] and reporting lost food card and a new card should be arriving soon. Pt adamantly denied that she is allowing anyone into her home. SW discussed the safety concerns with this and pt is understanding and continues to deny allowing people into her home. SW inquired about the phone. Pt confirms she does not have a working phone but that the phone her sister sent her is sitting in the living room and pt does not know how to activate it. SW encouraged pt to reach out to her niece or Boring Machine Set Up Operator Jig to assist with setting up phone. SW spoke with pt regarding going to a SNF. Pt adamantly refuses and states she can return home. Phone call to [facility] and left with RICHA Hagan. Notifying of discharge and requesting she assist pt in activating phone. Phone call to the coverage team at [facility] and informed of dc. Pt has home health aids Sunday and Sunday 2 hours and Sunday 3 hours. Pt receives 2 hot meals a day and has an Emergency reponse system. KELLY requested that [facility] speak with BRAIDER OPERATOR regarding assisting pt in activating her phone. KELLY spoke with [employer] and they do have an open case but state they are trying to help RICHA Cote with situation, but are not doing anything actively. SW did inform [employer] regarding claims from pt sister. Plan: return home, with resumption of home health aids ARELIS Malave
[2024-08-25 13:32] VITALS: BP 151/60; PULSE 97; RESP 18; TEMP 36.6; O2SAT 95
[2024-08-26 13:07] LABS: Vitamin D 1,25-Dihydroxy 27.1 pg/mL (24.8-81.5)
== END 2024-08-25 13:30 | disposition home or self-care (01) | DRG 394 ==
LOC: ED 21:02 → MS3 21:12
PROVIDERS: Nurse Practitioner; Student in an Organized Health Care Education/Training Program; Admitting Provider Family Medicine; Emergency Provider Emergency Medicine; PCP Family Medicine; Referring Provider Emergency Medicine; Visit Provider Internal Medicine
DX: K43.6 Other and unspecified ventral hernia with obstruction, without gangrene (principal); Z68.41 Body mass index [BMI] 40.0-44.9, adult; E11.65 Type 2 diabetes mellitus with hyperglycemia; I10 Essential (primary) hypertension; I48.0 Paroxysmal atrial fibrillation; K52.9 Noninfective gastroenteritis and colitis, unspecified; Z79.4 Long term (current) use of insulin; E66.01 Morbid (severe) obesity due to excess calories; K42.9 Umbilical hernia without obstruction or gangrene; G47.33 Obstructive sleep apnea (adult) (pediatric); E83.52 Hypercalcemia; E78.5 Hyperlipidemia, unspecified; K21.9 Gastro-esophageal reflux disease without esophagitis; Z87.891 Personal history of nicotine dependence; Z90.710 Acquired absence of both cervix and uterus; Z86.73 Personal history of transient ischemic attack (TIA), and cerebral infarction without residual deficits; Z79.84 Long term (current) use of oral hypoglycemic drugs; Z82.3 Family history of stroke; Z80.0 Family history of malignant neoplasm of digestive organs; Z79.01 Long term (current) use of anticoagulants; Z98.890 Other specified postprocedural states; Z90.49 Acquired absence of other specified parts of digestive tract
CPT/HCPCS: 36415; 74018; 74176; 80048; 80053; 82306; 82330; 82652; 82962; 83605; 83690; 83735; 83970; 84100; 85025; 94668; 97162; 97166; 97530; 99285; A4216; J2405

== ENCOUNTER 2024-09-12 06:06 | Emergency (ER) | payer MEDICARE, MEDICAID, SELFPAY ==
[2024-09-12 06:07] VITALS: BP 151/61; PULSE 95; RESP 17; TEMP 36.6; O2SAT 98; BMI 41.2
--- NOTE | 2024-09-12 06:20 | CT_ITS ---
PROCEDURE: ABDOMEN/PELVIS WITHOUT CONT REASON FOR EXAM: 68-year-old female, abdominal pain x1 night, constipation, history of hernia repair and hysterectomy. TECHNIQUE: Abdomen and pelvis CT without intravenous contrast. No oral contrast. COMPARISON: CT abdomen pelvis 08/12/2024. FINDINGS: Lung bases: Coronary artery calcifications. The heart is normal in size. Bibasilar atelectasis. Liver: The unopacified liver is unremarkable. No biliary ductal dilation. Gallbladder: No radiopaque stones within the gallbladder. Spleen: Unremarkable. Pancreas: The unopacified pancreas is atrophic. Adrenals: Unremarkable. Kidneys: No hydronephrosis. Punctate calcification within the left lower kidney, likely vascular. Stable exophytic right lower pole renal mass measuring 4.5 cm (series 601, image 81), incompletely characterized on this noncontrast examination. Bladder: Mildly distended and unremarkable. Reproductive Organs: Prior hysterectomy. Bowel: Prior bowel resections and anastomosis. The bowel loops are nondilated. No ascites or pneumoperitoneum. Mild distal colonic diverticulosis. Normal appendix. Lymph nodes: No suspicious lymph node enlargement. Vasculature: Moderate calcific plaque throughout the aortoiliac vessels. Bones/soft tissues: Thoracolumbar spondylosis. The right lateral abdominal wall is not completely included in the field of view due to body habitus. Ventral abdominal wall scarring, compatible with reported history of prior hernia repairs. Tiny fat containing periumbilical hernia. CT/Abdomen/Pelvis without Cont IMPRESSION: 1. No acute abdominopelvic finding. 2. Mild distal colonic diverticulosis. 3. Right lower pole exophytic mass, incompletely visualized on noncontrast exam ination. Outpatient CT abdomen (renal protocol) is recommended for further evaluation if not previously performed. One or more dose reduction techniques were used (e.g., Automated exposure contr ol, adjustment of the mA and/or kV according to patient size, use of iterative reconstruction technique). Reading Location: [facility]
--- NOTE | 2024-09-12 06:20 | ED.VIS.GI ---
HPI HPI - GI History of Present Illness Chief Complaint: Abd Pain Narrative Narrative: 68-year-old female presents via EMS with abdominal pain that she has had since around 10 PM last evening, approximately 8-1/2 hours ago. She states that she has past medical history of a ventral hernia. She is supposed to have surgery performed by Dr. Shah in the next week or 2. She states she has not had a bowel movement in 3 days, but that is normal for her. She denies any fevers or chills, no nausea or vomiting, just pain in the area of her right abdomen. She has had hernias previously and has history of colostomy with takedown as well. No exacerbating or alleviating factors. [facility] Medical History Hernia, ventral History of atrial fibrillation Abdominal pain Neuropathic pain Essential (primary) hypertension Cognitive dysfunction ESBL (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 coli infection Wears glasses Former smoker Obesity Ambulates with cane Stroke/cerebrovascular accident Difficulty in walking Poor historian Recurrent incisional hernia with incarceration Incarcerated ventral hernia Obstructive sleep apnea Atrial fibrillation Intraventricular hemorrhage Embolic stroke GERD (gastroesophageal reflux disease) Obesity (BMI 30-39.9) Hyperlipidemia Hypertension Diabetes mellitus Home Medications ?Medication ?Instructions ?Recorded ?Last Taken ?Type omeprazole 20 mg capsule,delayed 20 mg PO DAILY GERd 05/29/14 06/08/24 History release amlodipine 10 mg tablet (Norvasc) 10 mg PO QHS HTN 10/04/16 06/07/24 History apixaban 5 mg tablet (Eliquis) 5 mg PO BID blood thinner 10/04/16 06/08/24 History atorvastatin 80 mg tablet 80 mg PO QHS Cholesterol 10/25/16 06/07/24 Rx lisinopril 40 mg tablet 40 mg PO DAILY HTN 10/25/16 06/08/24 Rx pioglitazone 15 mg tablet 15 mg PO DAILY DM #30 tabs 10/09/22 06/08/24 Rx gabapentin 600 mg tablet 600 mg PO QDAY Nerve Pain 01/01/24 06/08/24 History multivitamin with folic acid 400 1 tab PO DAILY Supplement 05/14/24 06/08/24 History mcg tablet (Daily-Levon (with folic acid)) carvedilol 25 mg tablet 25 mg PO BID BP #60 tabs 24 06/08/24 Rx dapagliflozin propanediol 10 mg 10 mg PO DAILY diabetes #30 tabs 06/27/24 Unknown Rx tablet (Farxiga) insulin glargine 100 unit/mL (3 15 unit (0.15 mL) subcut BIDCM DM 06/27/24 Unknown Rx mL) subcutaneous pen (Lantus #5 pens Solostar U-100 Insulin) sennosides 8.6 mg-docusate sodium 1 tab PO BID #60 tabs 06/27/24 Unknown Rx 50 mg tablet (Stimulant Laxative Plus) Allergy/AdvReac Type Severity Reaction Status Date / Time iodine Allergy Mild Itching Verified 09/11/24 10:20 Penicillins Allergy Mild Itching Verified 09/11/24 10:20 Family History Father CVA (cerebral vascular accident) Mother Diabetes Stomach cancer Other High cholesterol Hypertension Surgical History History of cholecystectomy Hx of colonoscopy Status post debridement History of hysterectomy S/P repair of ventral hernia Social History household members: none Smoking Status: Former smoker alcohol intake: never substance use type: does not use caffeine: Yes what type of physical activity do you participate in: walking frequency: daily ROS ROS ED ROS Narrative Constitutional: No fever, no chills. HEENT: No sore throat. No neck pain. Cardiovascular: No chest pain. No palpitations. No pedal edema. Respiratory: No cough, no shortness of breath. Abdominal: Positive right-sided abdominal pain. No nausea. No vomiting. No bowel movement x 3 days, but normal for her. Genitourinary: No dysuria. No hematuria. Musculoskeletal: No myalgias. No arthralgias. Neurologic: No headaches. EXAM Physical Exam Narrative Exam Narrative: Afebrile. Vital signs noted. Nontoxic-appearing. Cardiovascular examination reveals a regular rate and rhythm. Lungs are clear to auscultation bilaterally. The abdomen is soft, obese, with mild tenderness over the colostomy scar. No induration, no erythema. No rebound or guarding. Positive bowel sounds. Const Vital Signs: 09/12/24 06:07 Temperature 97.8 F Temperature Source Oral Pulse Rate 95 Respiratory Rate 17 Blood Pressure 151/61 H Blood Pressure Mean 91 Pulse Ox 98 Oxygen Delivery Method Room Air MDM MDM MDM Narrative Medical decision making narrative: Differential diagnosis includes but not limited to bowel obstruction versus hernia pain versus diverticulitis versus is constipation versus nonspecific abdominal pain. As patient has allergy to iodine, CT will be obtained without contrast. Basic laboratory work will be obtained in the form of CBC and BMP. I doubt that she has a bowel obstruction as she is not having nausea or vomiting, she last had a bowel movement 3 days ago. I have low suspicion for incarcerated hernia based on her history and examination. I reviewed her laboratory work and she has normal white count of 5.5 with hemoglobin stable 11.6, hematocrit 37.8, platelet count normal at 233. Sodium normal 140 with potassium 3.8, BUN normal at 8 and creatinine 0.70. Glucose slightly low at 69. She will be given oral p.o. challenge. I reviewed the CT of the abdomen and pelvis without contrast and there is no evidence of obstruction. At this point in time, I do feel that she can be discharged to follow-up with her surgeon for her hernia repair. I did review her chart she may already have abdominal mesh in place. Patient is motivated for discharge. I feel she can be discharged. Return instructions were reviewed. Disposition is discharged home in stable condition. History & Record Review Discussion w/independent historian: Patient Lab Data Attestation: I reviewed the patient's lab results. Labs: Laboratory Results - last 24 hr 09/12/24 06:27 WBC 5.5 RBC 4.79 Hgb 11.6 L Hct 37.8 MCV 78.9 L MCH 24.2 L MCHC 30.7 L RDW Std Deviation 49.4 H RDW Coeff of Faby 17.4 H Plt Count 233 MPV 9.2 Immature Gran % (Auto) 0.700 Neut % (Auto) 56.4 Lymph % (Auto) 29.9 [place] % (Auto) 10.6 H Eos % (Auto) 1.5 Baso % (Auto) 0.9 Absolute Neuts (auto) 3.1 Absolute Lymphs (auto) 1.64 Nucleated RBC % 0 Sodium 140 Potassium 3.8 Chloride 106 Carbon Dioxide 30.0 Anion Gap 4 L BUN 8 Creatinine 0.70 Estim Creat Clear Calc 85.85 Est GFR (MDRD) Af Amer 107 Est GFR (MDRD) Non-Af 88 BUN/Creatinine Ratio 11.4 Glucose 69 L Calcium 10.2 H Radiography Diagnostic Testing: Clinical Impression(s) from Imaging Studies Abdomen/Pelvis CT 09/12/24 06:20 IMPRESSION: 1. No acute abdominopelvic finding. 2. Mild distal colonic diverticulosis. 3. Right lower pole exophytic mass, incompletely visualized on noncontrast examination. Outpatient CT abdomen (renal protocol) is recommended for further evaluation if not previously performed. One or more dose reduction techniques were used (e.g., Automated exposure control, adjustment of the mA and/or kV according to patient size, use of iterative reconstruction technique). Reading Location: [facility] Discharge Plan Triage Chief Complaint: Abd Pain ED Provider: Wallace Esposito Dx/Rx/DC Orders Clinical Impression: Abdominal pain, Ventral hernia Instructions: ED Abdominal Pain Unkn Cause Fem Prescriptions: No Action gabapentin 600 mg tablet 600 mg PO QDAY omeprazole 20 MG capsule 20 mg PO DAILY amlodipine [Norvasc] 10 MG tablet 10 mg PO QHS Eliquis 5 MG tablet 5 mg PO BID atorvastatin 80 MG tablet 80 mg PO QHS 0RF lisinopril 40 MG tablet 40 mg PO DAILY 0RF sennosides-docusate sodium [Stimulant Laxative Plus] 8.6-50 mg Tablet 1 tab PO BID Qty: 60 0RF dapagliflozin propanediol [Farxiga] 10 mg tablet 10 mg PO DAILY Qty: 30 0RF insulin glargine [Lantus Solostar U-100 Insulin] 100 unit/mL (3 mL) insulin pen 15 unit subcut BIDCM Qty: 5 0RF multivitamin with folic acid [Daily-Levon (with folic acid)] 400 mcg tablet 1 tab PO DAILY carvedilol 25 mg tablet 25 mg PO BID Qty: 60 0RF Rx Instructions: must administer with a meal/food pioglitazone 15 mg tablet 15 mg PO DAILY Qty: 30 3RF Primary Care Provider: Dennis Pelayo Referrals: Dennis Pelayo DO [Primary Care Provider] - An Shah MD [Med Staff - Active Staff] - 3-5 Days if not improving Activity Restrictions/Additional Instructions: Follow-up with Dr. Shah. Return with increased pain, nausea and vomiting, new or worsening symptoms. Continue Tylenol as needed for pain. Print Language: Chilean Disposition Disposition: Home, Self Care
[2024-09-12 06:42] LABS: Absolute Lymphocyte Count 1.64 X10^3/uL (0.83-4.51); Absolute Neutrophil Count 3.1 X10^3/uL (2.0-7.7); Basophil# 0.05 X10^3/uL; Basophil% 0.9 % (0-1); Eosinophil# 0.08 X10^3/uL; Eosinophils% 1.5 % (0-5); Hematocrit 37.8 % (37-47); Hemoglobin 11.6 g/dL (12.0-15.0); Lymphocyte # 1.64 X10^3/ul (0.83-4.51); Lymphocyte % 29.9 % (19-41); Mean Corp Hgb Conc 30.7 g/dL (32-36); Mean Corpuscular Hgb 24.2 pg (27.0-32.0); Mean Corpuscular Volume 78.9 fL (81-99); Mean Platelet Vol. 9.2 fl (6.2-12.0); Monocyte# 0.58 X10^3/uL; Monocyte% 10.6 % (0-10); NRBC Flagged by Analyzer 0 % (0-5); Neutrophil # 3.09 X10^3/uL (2.7-7.7); Neutrophil % 56.4 % (47-70); Platelet Count 233 K/mm3 (150-450); RBC Distribution Width CV 17.4 % (11.6-14.6); RBC Distribution Width SD 49.4 fl (35.1-43.9); Red Blood Count 4.79 M/mm3 (4.2-5.4); White Blood Count 5.5 K/mm3 (4.4-11.0)
[2024-09-12 06:56] LABS: Anion Gap 4 (5-15); BUN 8 mg/dL (7-18); BUN/Creat Ratio 11.4 RATIO (10-20); Calcium,Total 10.2 mg/dL (8.5-10.1); Chloride 106 mmol/L (98-107); EST Glomerular Filtration Rate 88 mL/min (>60); Est Glom Filt Rate - Afr Amer 107 mL/min (>60); Estimated Creatinine Clearance 85.85 ml/min; Glucose 69 mg/dL (74-106); Potassium 3.8 mmol/L (3.5-5.1); Sodium Level 140 mmol/L (136-145)
[2024-09-12 07:37] VITALS: BP 141/63; PULSE 94; RESP 18; TEMP 36.4; O2SAT 94
--- NOTE | 2024-09-12 07:39 | NURSING ---
Gulf Juice and analy crackers given.
[2024-09-12 07:51] VITALS: BP 131/71
--- NOTE | 2024-09-12 08:06 | ED.RN ---
patient waiting for hospital van to transport back home. Patient waiting in the waiting room until arrival with snacks and blanket for comfort
== END 2024-09-12 08:06 | disposition home or self-care (01) ==
PROVIDERS: Emergency Provider Emergency Medicine; PCP Family Medicine; Visit Provider Emergency Medicine
DX: R10.9 Unspecified abdominal pain (principal); I48.91 Unspecified atrial fibrillation; Z79.4 Long term (current) use of insulin; E11.9 Type 2 diabetes mellitus without complications; K43.9 Ventral hernia without obstruction or gangrene; Z87.891 Personal history of nicotine dependence; E78.5 Hyperlipidemia, unspecified; I10 Essential (primary) hypertension; Z86.73 Personal history of transient ischemic attack (TIA), and cerebral infarction without residual deficits; K21.9 Gastro-esophageal reflux disease without esophagitis; Z79.899 Other long term (current) drug therapy; Z79.01 Long term (current) use of anticoagulants; Z90.49 Acquired absence of other specified parts of digestive tract; Z90.710 Acquired absence of both cervix and uterus
CPT/HCPCS: 74176; 80048; 85025; 99284; A4216

== ENCOUNTER 2024-10-17 18:00 | Emergency (ER) | payer MEDICARE, MEDICAID, SELFPAY ==
[2024-10-17 18:01] VITALS: BP 125/58; PULSE 952; RESP 16; TEMP 36.5; O2SAT 98; BMI 38.2
--- NOTE | 2024-10-17 18:08 | EX.ED.DYSGE1 ---
HPI History of Present Illness Chief Complaint: Abd Pain Detail of Chief Complaint: Midline supraumbilical painful mass, history of hernia Informant: patient Onset/Context/Timing Onset: Hours Context: Sudden Onset Timing: Continuous Quality: Pain midline superior to the umbilicus Location: Previously documented Current Severity: Mild Maximum Severity: Moderate Worsened by: Palpation of mass Relieved by: nothing Associated Symptoms Associated Symptoms: Nausea without vomiting. Last bowel movement 2 days ago. Patient states s Narrative Narrative: Patient is a 68-year-old woman who is scheduled to have repair of her ventral abdominal hernia by Dr. Malik October 30. She presents with abrupt onset of pain and a mass that she cannot reduce. She does endorse nausea without vomiting diarrhea. She has not had a bowel movement 2 days. She denies fever, chills night sweats. Denies cardiac or respiratory symptoms. She denies urologic symptoms. Prior similar symptoms: No Recent Illness/Hospitalization: Yes [facility] Medical History Hernia, ventral History of atrial fibrillation Abdominal pain Neuropathic pain Essential (primary) hypertension Cognitive dysfunction ESBL (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 coli infection Wears glasses Former smoker Obesity Ambulates with cane Stroke/cerebrovascular accident Difficulty in walking Poor historian Recurrent incisional hernia with incarceration Incarcerated ventral hernia Obstructive sleep apnea Atrial fibrillation Intraventricular hemorrhage Embolic stroke GERD (gastroesophageal reflux disease) Obesity (BMI 30-39.9) Hyperlipidemia Hypertension Diabetes mellitus Home Medications ?Medication ?Instructions ?Recorded ?Last Taken ?Type omeprazole 20 mg capsule,delayed 20 mg PO DAILY GERd 05/29/14 06/08/24 History release amlodipine 10 mg tablet (Norvasc) 10 mg PO QHS HTN 10/04/16 06/07/24 History apixaban 5 mg tablet (Eliquis) 5 mg PO BID blood thinner 10/04/16 06/08/24 History atorvastatin 80 mg tablet 80 mg PO QHS Cholesterol 10/25/16 06/07/24 Rx lisinopril 40 mg tablet 40 mg PO DAILY HTN 10/25/16 06/08/24 Rx pioglitazone 15 mg tablet 15 mg PO DAILY DM #30 tabs 10/09/22 06/08/24 Rx gabapentin 600 mg tablet 600 mg PO QDAY Nerve Pain 01/01/24 06/08/24 History multivitamin with folic acid 400 1 tab PO DAILY Supplement 05/14/24 06/08/24 History mcg tablet (Daily-Levon (with folic acid)) carvedilol 25 mg tablet 25 mg PO BID BP #60 tabs 05/19/24 06/08/24 Rx dapagliflozin propanediol 10 mg 10 mg PO DAILY diabetes #30 tabs 06/27/24 Unknown Rx tablet (Farxiga) insulin glargine 100 unit/mL (3 15 unit (0.15 mL) subcut BIDCM DM 06/27/24 Unknown Rx mL) subcutaneous pen (Lantus #5 pens Solostar U-100 Insulin) sennosides 8.6 mg-docusate sodium 1 tab PO BID #60 tabs 06/27/24 Unknown Rx 50 mg tablet (Stimulant Laxative Plus) Allergy/AdvReac Type Severity Reaction Status Date / Time iodine Allergy Mild Itching Verified 10/17/24 18:06 Penicillins Allergy Mild Itching Verified 10/17/24 18:06 Family History Father CVA (cerebral vascular accident) Mother Diabetes Stomach cancer Other High cholesterol Hypertension Surgical History History of cholecystectomy Hx of colonoscopy Status post debridement History of hysterectomy S/P repair of ventral hernia Social History household members: none Smoking Status: Former smoker alcohol intake: never substance use type: does not use caffeine: Yes what type of physical activity do you participate in: walking frequency: daily ROS ROS ED Constitutional Constitutional ED: Denies chills, fever(s), subjective, sweats or weight loss Cardiovascular Cardiovascular: Denies chest pain or palpitations Respiratory/Chest Respiratory/Chest: Denies cough, dyspnea or dyspnea on exertion Gastrointestinal Gastrointestinal: Reports abdominal pain and nausea; Denies constipation, diarrhea, melena or other Genitourinary Genitourinary ED: Denies dysuria, hematuria or urinary frequency Musculoskeletal Musculoskeletal: Denies back pain Integumentary Denies rash Neurologic Neurologic: Denies paresthesias or weakness Hematologic/Lymphatic Hematologic/Lymphatic: Reports systems reviewed and no addt'l complaints, except as documented EXAM Physical Exam Const Vital Signs: 10/17/24 18:01 10/17/24 20:00 Temperature 97.7 F L Temperature Source Oral Pulse Rate 952 H 92 Respiratory Rate 16 18 Blood Pressure 125/58 H 126/62 H Blood Pressure Mean 80 83 Pulse Ox 98 94 Oxygen Delivery Method Room Air Room Air Positive well nourished and well developed Constitutional Narrative: BMI is 38.2. General Appearance ED: well developed and pallor HEENT Reports moist mucous membranes HEENT Narrative: Head is atraumatic, cephalic. Ears normal. Nares patent. Eyes PERRL and EOMs intact bilaterally General Eye ED: Negative for pale conjunctiva or scleral icterus Neck no lymphadenopathy, supple and no JVD Resp normal respiratory effort and clear to auscultation bilaterally Cardio regular rhythm, S1 normal heart sound, S2 normal heart sound and no murmurs Rhythm: abnormal rhythm irregularly irregular GI non-distended; Negative for non-tender, hepatosplenomegaly or no masses GI Narrative: Patient has a mass consistent with a ventral hernia that superior to the umbilicus in the midline. Attempt to reduce causes significant pain. She reports this was not painful until a couple hours ago and normally is not sticking out will obtain CT to determine if this is fat omentum or bowel in the hernia. Appropriate blood work was obtained as well. Inspection: Negative for abdominal distention Auscultation: hypoactive bowel sounds Palpation: soft and tender other (Ventral hernia) Extremity normal to inspection Neuro oriented x3 and CN's II-XII intact bilaterally Sensorium / Orientation: alert Skin no rashes or lesions noted, no wounds and skin turgor normal General Skin Exam: elasticity normal and pallor; Negative for jaundice MDM MDM MDM Narrative Medical decision making narrative: Patient with nonreducible painful acute midline ventral hernia. CT was ordered to assess if material in the hernia is fat versus omentum versus bowel. Clinically she is not obstructed. In light of her multiple medical problems appropriate blood work was obtained. Of note her vital signs are recorded in error. Pulse rate is not 952. Patient was seen by Dr. Malik on September 01. At that time the hernia was reducible per her note. Lab Data Labs: Laboratory Results - last 24 hr 10/17/24 18:53 WBC 9.8 RBC 5.07 Hgb 12.4 Hct 40.0 MCV 78.9 L MCH 24.5 L MCHC 31.0 L RDW Std Deviation 52.6 H RDW Coeff of F[place] 18.8 H Plt Count 242 MPV 8.9 Immature Gran % (Auto) 0.600 Neut % (Auto) 79.0 H Lymph % (Auto) 13.0 L [place] % (Auto) 6.6 Eos % (Auto) 0.5 Baso % (Auto) 0.3 Absolute Neuts (auto) 7.7 Absolute Lymphs (auto) 1.27 Nucleated RBC % 0 Sodium 136 Potassium 4.5 Chloride 101 Carbon Dioxide 25.1 Anion Gap 10 BUN 20 H Creatinine 0.86 Estim Creat Clear Calc 76.55 Est GFR (MDRD) Non-Af 73 BUN/Creatinine Ratio 22.8 H Glucose 179 H Lactic Acid 2.0 Calcium 10.4 Radiography Diagnostic Testing: CT of the abdomen with IV contrast was ordered. Patient has a ventral hernia with evidence of what appears to be an early partial small bowel obstruction. I did receive a call at [phone]. Radiologist informing that she has an obstruction. She was informed that the surgeon has been paged. Management Discussion w/another healthcare provider: Health Promotion Officer (Spoke with Dr. Malik her surgeon. She instructed me to push and ended up. Within 5 seconds I was able to reduce the hernia. Will have patient follow-up with her as scheduled for hernia repair October 30.) and Radiologist (Radiologist contacted me. She agrees there is a hernia with obstruction. She was informed the patient was scheduled for surgery and that her surgeon has been paged and is on-call.) Discharge Plan Triage Chief Complaint: Abd Pain ED Provider: Abdifatah Waterman Dx/Rx/DC Orders Clinical Impression: Intestinal obstruction due to incisional hernia, Acute prerenal azotemia Instructions: ED Hernia (Adult) Prescriptions: No Action gabapentin 600 mg tablet 600 mg PO QDAY omeprazole 20 MG capsule 20 mg PO DAILY amlodipine [Norvasc] 10 MG tablet 10 mg PO QHS Eliquis 5 MG tablet 5 mg PO BID atorvastatin 80 MG tablet 80 mg PO QHS 0RF lisinopril 40 MG tablet 40 mg PO DAILY 0RF sennosides-docusate sodium [Stimulant Laxative Plus] 8.6-50 mg Tablet 1 tab PO BID Qty: 60 0RF dapagliflozin propanediol [Farxiga] 10 mg tablet 10 mg PO DAILY Qty: 30 0RF insulin glargine [Lantus Solostar U-100 Insulin] 100 unit/mL (3 mL) insulin pen 15 unit subcut BIDCM Qty: 5 0RF multivitamin with folic acid [Daily-Levon (with folic acid)] 400 mcg tablet 1 tab PO DAILY carvedilol 25 mg tablet 25 mg PO BID Qty: 60 0RF Rx Instructions: must administer with a meal/food pioglitazone 15 mg tablet 15 mg PO DAILY Qty: 30 3RF Primary Care Provider: Dennis Pelayo Referrals: Dennis Pelayo DO [Primary Care Provider] - An Shah MD [Med Staff - Active Staff] - Keep Marissa appointment Print Language: Zambian Disposition Disposition: Home, Self Care
--- NOTE | 2024-10-17 18:09 | CT_ITS ---
PROCEDURE: ABDOMEN/PELVIS W IV CONT ONLY 10/17/2024 REASON FOR EXAM: 68-year-old female, PAINFUL NONREDUCIBLE MIDLINE SUPRAUMBILICAL HERNIA TECHNIQUE: Abdomen CT without and with intravenous contrast. Coronal and Sagittal reconstruction series were provided. PATIENT PREPARATION: Per protocol ORAL CONTRAST TYPE: None. CONTRAST: Isovue-300 VOLUME: 100mL One or more dose reduction techniques were used (e.g., Automated exposure control, adjustment of the mA and/or kV according to patient size, use of iterative reconstruction technique. RADIATION DOSE SUMMARY: CTDlvol: 35 mGy DLP: 1300 mGycm COMPARISON: CT abdomen pelvis 09/12/2024. FINDINGS: Lung bases: The heart is normal size. Coronary artery calcifications. Bibasilar atelectasis/scarring. Liver: The liver is normal in size without focal hepatic mass. The major portal veins are patent. No biliary ductal dilation. Gallbladder: No radiopaque stones within the gallbladder. Spleen: Unremarkable. Pancreas: Diffuse fatty atrophy. Adrenals: Unremarkable. Kidneys: Stable homogeneous right lower pole renal mass. No hydronephrosis or nephrolithiasis. Bladder: Mildly distended and unremarkable. Reproductive Organs: Prior hysterectomy. Bowel: Prior bowel resections and anastomosis within the right upper quadrant and distal sigmoid colon. Incarcerated right periumbilical hernia with transition point between dilated and collapsed small bowel loops at the periumbilical hernia. The small bowel dilation measuring up to 4.5 cm. No pneumoperitoneum or ascites. Normal appendix. Mild distal colonic diverticulosis. Lymph nodes: No suspicious lymphadenopathy. Prominent mesenteric and retroperitoneal nodes, likely reactive. Vasculature: Moderate calcific plaque of the aortoiliac vessels. Bones/soft tissues: Thoracolumbar spondylosis. Diffuse laxity of the ventral abdominal wall, compatible with warranted history of prior hernia repairs. CT/Abdomen/Pelvis W IV Cont ONLY IMPRESSION: 1. Incarcerated right periumbilical hernia with proximal small bowel obstructio n. No pneumoperitoneum. 2. Right lower pole exophytic mass, incompletely visualized by this single phas e examination. See recent CT for imaging recommendations. Dr. Gomez discussed these findings via telephone with Dr. Waterman at 8:45 p.m. on 10/17/2024. Reading Location: [facility]
[2024-10-17] MEDS: Ondansetron 4 MG/2 ML Vial IV (18:32)
[2024-10-17] MEDS: Morphine 4 MG/ML Syringe IV (18:33)
[2024-10-17] MEDS: DiphenhydrAMINE 50 MG/ML Syringe IV (18:33)
[2024-10-17] MEDS: 0.9% Normal Saline (1000mL) 1,000 ML 250 ML IV (18:59)
[2024-10-17 19:03] LABS: Absolute Lymphocyte Count 1.27 X10^3/uL (0.83-4.51); Absolute Neutrophil Count 7.7 X10^3/uL (2.0-7.7); Basophil# 0.03 X10^3/uL; Basophil% 0.3 % (0-1); Eosinophil# 0.05 X10^3/uL; Eosinophils% 0.5 % (0-5); Hemoglobin 12.4 g/dL (12.0-15.0); Lymphocyte # 1.27 X10^3/ul (0.83-4.51); Mean Corpuscular Hgb 24.5 pg (27.0-32.0); Mean Corpuscular Volume 78.9 fL (81-99); Mean Platelet Vol. 8.9 fl (6.2-12.0); Monocyte# 0.64 X10^3/uL; Monocyte% 6.6 % (0-10); NRBC Flagged by Analyzer 0 % (0-5); Neutrophil # 7.72 X10^3/uL (2.7-7.7); Platelet Count 242 K/mm3 (150-450); RBC Distribution Width CV 18.8 % (11.6-14.6); RBC Distribution Width SD 52.6 fl (35.1-43.9); Red Blood Count 5.07 M/mm3 (4.2-5.4); White Blood Count 9.8 K/mm3 (4.4-11.0)
--- NOTE | 2024-10-17 19:27 | ED.RN ---
This RN attempted to complete the patient's medication list. However, patient is poor historian and denies knowing the medications that she takes.
[2024-10-17] MEDS: Methylprednisolone Sod Succ 40 MG/ML VIAL IV (19:32)
[2024-10-17 19:49] LABS: Anion Gap 10 (5-15); BUN 20 mg/dL (4-19); BUN/Creat Ratio 22.8 RATIO (10-20); Calcium,Total 10.4 mg/dL (7.6-11.0); Carbon Dioxide 25.1 mmol/L (21.0-32.0); Chloride 101 mmol/L (98-108); Creatinine, Serum 0.86 mg/dL (0.70-1.20); EST Glomerular Filtration Rate 73 (>60); Estimated Creatinine Clearance 76.55 ml/min (50-250); Glucose 179 mg/dL (70-99); Potassium 4.5 mmol/L (3.3-5.1); Sodium Level 136 mmol/L (133-145)
[2024-10-17 20:00] VITALS: BP 126/62; PULSE 92; RESP 18; O2SAT 94
[2024-10-17 20:56] VITALS: BP 145/69; PULSE 68; RESP 18; TEMP 36.7; O2SAT 93
== END 2024-10-17 21:00 | disposition home or self-care (01) ==
PROVIDERS: Emergency Provider Emergency Medicine; PCP Family Medicine; Visit Provider Emergency Medicine
DX: R10.9 Unspecified abdominal pain (principal); K56.609 Unspecified intestinal obstruction, unspecified as to partial versus complete obstruction; E11.40 Type 2 diabetes mellitus with diabetic neuropathy, unspecified; Z79.4 Long term (current) use of insulin; E78.5 Hyperlipidemia, unspecified; K43.2 Incisional hernia without obstruction or gangrene; I10 Essential (primary) hypertension; Z87.891 Personal history of nicotine dependence; Z86.73 Personal history of transient ischemic attack (TIA), and cerebral infarction without residual deficits; K21.9 Gastro-esophageal reflux disease without esophagitis; Z79.899 Other long term (current) drug therapy; Z79.84 Long term (current) use of oral hypoglycemic drugs; Z90.49 Acquired absence of other specified parts of digestive tract; Z90.710 Acquired absence of both cervix and uterus; R79.89 Other specified abnormal findings of blood chemistry
CPT/HCPCS: 74177; 80048; 83605; 85025; 96361; 96374; 96375; 99285; Q9967; A4216; J2405

== ENCOUNTER 2024-10-23 09:29 | Inpatient (IN) | payer MEDICARE, MEDICAID, SELFPAY ==
[2024-10-23] VITALS (7 sets, daily range): BP systolic 95–132; BP diastolic 47–78; PULSE 80–100; RESP 16–26; TEMP 36.4–36.9; O2SAT 92–96; BMI 42.2; BMI 39.5
[2024-10-23] MEDS: Ondansetron 4 MG/2 ML Vial IV (10:13)
[2024-10-23] MEDS: 0.9% Normal Saline (1000mL) 1,000 ML 999 ML IV (10:13)
[2024-10-23 10:14] LABS: Absolute Lymphocyte Count 1.53 X10^3/uL (0.83-4.51); Absolute Neutrophil Count 11.2 X10^3/uL (2.0-7.7); Basophil# 0.03 X10^3/uL; Basophil% 0.2 % (0-1); Eosinophil# 0.03 X10^3/uL; Eosinophils% 0.2 % (0-5); Hematocrit 44.5 % (37-47); Hemoglobin 13.7 g/dL (12.0-15.0); Lymphocyte # 1.53 X10^3/ul (0.83-4.51); Lymphocyte % 11.4 % (19-41); Mean Corp Hgb Conc 30.8 g/dL (32-36); Mean Corpuscular Hgb 24.1 pg (27.0-32.0); Mean Corpuscular Volume 78.3 fL (81-99); Mean Platelet Vol. 9.1 fl (6.2-12.0); Monocyte# 0.57 X10^3/uL; Monocyte% 4.3 % (0-10); NRBC Flagged by Analyzer 0 % (0-5); Neutrophil # 11.17 X10^3/uL (2.7-7.7); Neutrophil % 83.4 % (47-70); Platelet Count 321 K/mm3 (150-450); RBC Distribution Width CV 19.8 % (11.6-14.6); RBC Distribution Width SD 53.7 fl (35.1-43.9); Red Blood Count 5.68 M/mm3 (4.2-5.4); White Blood Count 13.4 K/mm3 (4.4-11.0)
[2024-10-23] MEDS: DiphenhydrAMINE 50 MG/ML Syringe 25 MG IV (10:14)
[2024-10-23] MEDS: fentaNYL 100 MCG/2 ML Ampul 25 MCG IV (10:14)
--- NOTE | 2024-10-23 10:51 | CT_ITS ---
EXAM: CT Abdomen and Pelvis With Intravenous Contrast CLINICAL INDICATION: N/V, HERNIA TECHNIQUE: Axial computed tomography images of the abdomen and pelvis with intravenous contrast. This CT exam was performed using one or more of the following dose reduction techniques: automated exposure control, adjustment of the mA and/or kV according to patient size, and/or use of iterative reconstruction technique. COMPARISON: CT Abdomen Pelvis dated 10/17/2024 FINDINGS: LUNG BASES: Unremarkable. No mass. No consolidation. MEDIASTINUM: Small esophageal hiatal hernia. ABDOMEN: LIVER: Fatty infiltration of the liver. GALLBLADDER AND BILE DUCTS: Unremarkable. No calcified stones. No ductal dilation. PANCREAS: Unremarkable. No mass. No ductal dilation. SPLEEN: Unremarkable. No splenomegaly. ADRENALS: Unremarkable. No mass. KIDNEYS AND URETERS: Unremarkable. No solid mass. No hydronephrosis. STOMACH AND BOWEL: Dilated small bowel loops with differential air-fluid levels, measuring up to 3.8 cm. This is concerning for small bowel obstruction with obstructive sided at the umbilical hernia. Fecal retention in the colon consistent with constipation. No mucosal thickening. PELVIS: APPENDIX: No findings to suggest acute appendicitis. BLADDER: Unremarkable. No mass. REPRODUCTIVE: Unremarkable as visualized. ABDOMEN and PELVIS: INTRAPERITONEAL SPACE: Unremarkable. No free air. No significant fluid collection. BONES/JOINTS: No acute fracture. No dislocation. SOFT TISSUES: See above. VASCULATURE: Scattered calcified atherosclerotic disease of aorta. No abdominal aortic aneurysm. LYMPH NODES: Unremarkable. No enlarged lymph nodes. CT/Abdomen/Pelvis W IV Cont ONLY IMPRESSION: 1. Dilated small bowel loops with differential air-fluid levels, measuring up to 3.8 cm. This is concerning for small bowel obstruction with obstructive sided at the umbilical hernia. This appears simil ar to the prior exam. 2. Small esophageal hiatal hernia. 3. Fecal retention in the colon consistent with constipation. Reading [facility]
[2024-10-23 10:59] LABS: Lactic Acid 1.3 mmol/L (0.0-2.0)
--- NOTE | 2024-10-23 10:59 | EX.ED.GENINJ ---
HPI History of Present Illness Chief Complaint: Nausea/Vomiting Narrative Narrative: Chief complaint and HPI: Nausea and vomiting. 68-year-old female with past medical history of DM, ventral hernia, HTN, atrial fibrillation on Eliquis presents for evaluation of nausea and vomiting. Onset this morning. Patient states that she has a history of a ventral hernia in which she follows with Dr. Shah. She states that she always has abdominal pain at that hernia however it is worse today. She has history of bowel obstructions. She states that she is scheduled to have surgery with her in October. She denies any fever, chills, diarrhea, constipation, dysuria, chest pain, shortness of breath. Review of systems: See HPI Medications: As listed on the chart Allergies: As listed on the chart PFSH: Per chart Vital signs: As listed on the chart. Reviewed. Physical exam: Gen: A&O x3, NAD Head: Normocephalic, atraumatic Eyes: No sclera icterus, conjunctiva clear ENT: Moist mucous membranes Neck: Trachea midline, No JVD CV: RRR, no murmurs, no peripheral edema Resp: Lungs CTA BL, no w/r/c GI: Obese, abd soft, non-distended, ventral hernia without overlying skin changes-firm and tender to palpation -was not able to reduce, no rigidity or rebound Musc: Full ROM, no deformity Skin: Warm, dry Neuro: Alert, oriented, grossly intact, sensation intact Psych: Cooperative, appropriate mood and affect [facility] Medical History Hernia, ventral History of atrial fibrillation Abdominal pain Neuropathic pain Essential (primary) hypertension Cognitive dysfunction ESBL (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 coli infection Wears glasses Former smoker Obesity Ambulates with cane Stroke/cerebrovascular accident Difficulty in walking Poor historian Recurrent incisional hernia with incarceration Incarcerated ventral hernia Obstructive sleep apnea Atrial fibrillation Intraventricular hemorrhage Embolic stroke GERD (gastroesophageal reflux disease) Obesity (BMI 30-39.9) Hyperlipidemia Hypertension Diabetes mellitus Home Medications ?Medication ?Instructions ?Recorded ?Last Taken ?Type omeprazole 20 mg capsule,delayed 20 mg PO DAILY GERd 05/29/14 06/08/24 History release amlodipine 10 mg tablet (Norvasc) 10 mg PO QHS HTN 10/04/16 06/07/24 History apixaban 5 mg tablet (Eliquis) 5 mg PO BID blood thinner 10/04/16 06/08/24 History atorvastatin 80 mg tablet 80 mg PO QHS Cholesterol 10/25/16 06/07/24 Rx lisinopril 40 mg tablet 40 mg PO DAILY HTN 10/25/16 06/08/24 Rx pioglitazone 15 mg tablet 15 mg PO DAILY DM #30 tabs 10/09/22 06/08/24 Rx gabapentin 600 mg tablet 600 mg PO BID Nerve Pain 01/01/24 06/08/24 History multivitamin with folic acid 400 1 tab PO DAILY Supplement 05/14/24 06/08/24 History mcg tablet (Daily-Levon (with folic acid)) carvedilol 25 mg tablet 25 mg PO BID BP #60 tabs 05/19/24 06/08/24 Rx dapagliflozin propanediol 10 mg 10 mg PO DAILY diabetes #30 tabs 06/27/24 Unknown Rx tablet (Farxiga) insulin glargine 100 unit/mL (3 15 unit (0.15 mL) subcut BIDCM DM 06/27/24 Unknown Rx mL) subcutaneous pen (Lantus #5 pens Solostar U-100 Insulin) sennosides 8.6 mg-docusate sodium 1 tab PO BID #60 tabs 06/27/24 Unknown Rx 50 mg tablet (Stimulant Laxative Plus) benzonatate 200 mg capsule 200 mg PO TID PRN cough 10/23/24 Unknown History cholecalciferol (vitamin D3) 50 50 mcg PO DAILY 10/23/24 Unknown History mcg (2,000 unit) capsule dulaglutide 4.5 mg/0.5 mL 4.5 mg subcut QWEEK 10/23/24 Unknown History subcutaneous pen injector (Trulicity) glipizide 10 mg tablet 10 mg PO BID 10/23/24 Unknown History metformin 500 mg tablet 500 mg PO BID 10/23/24 Unknown History naproxen 500 mg tablet 500 mg PO BID 10/23/24 Unknown History nystatin 100,000 unit/gram topical 1 applic topical BID 10/23/24 Unknown History powder (Nyamyc) Allergy/AdvReac Type Severity Reaction Status Date / Time iodine Allergy Mild Itching Verified 10/23/24 09:29 Penicillins Allergy Mild Itching Verified 10/23/24 09:29 Family History Father CVA (cerebral vascular accident) Mother Diabetes Stomach cancer Other High cholesterol Hypertension Surgical History History of cholecystectomy Hx of colonoscopy Status post debridement History of hysterectomy S/P repair of ventral hernia Social History household members: none Smoking Status: Former smoker alcohol intake: never substance use type: does not use caffeine: Yes what type of physical activity do you participate in: walking frequency: daily EXAM Physical Exam Const Vital Signs: 10/23/24 09:29 10/23/24 11:29 10/23/24 13:00 Temperature 98.2 F Temperature Source Oral Pulse Rate 100 82 80 Respiratory Rate 18 20 H 18 Blood Pressure 95/47 L 128/78 H 124/74 H Blood Pressure Mean 63 94 90 Pulse Ox 93 95 95 Oxygen Delivery Method Room Air 10/23/24 13:29 Temperature 97.6 F L Temperature Source Pulse Rate 98 Respiratory Rate 22 H Blood Pressure 132/72 H Blood Pressure Mean 92 Pulse Ox 93 Oxygen Delivery Method MDM MDM MDM Narrative Medical decision making narrative: 68-year-old female with past medical history of DM, ventral hernia, HTN, atrial fibrillation on Eliquis presents for evaluation of nausea and vomiting. Patient has ventral hernia. I reviewed the general surgery note from her recent appointment. Differential diagnosis includes but is not limited to incarcerated hernia, strangulated hernia, obstruction, gastroenteritis, colitis, UTI, electrolyte abnormality, JEANNE. NS bolus, Zofran, fentanyl ordered. I gave fentanyl given patient's blood pressure is 95/47. Will reevaluate. She has itching to contrast therefore Benadryl ordered. Abdominal pain workup ordered including CT abdomen pelvis. CBC with leukocytosis of 13.4. No anemia. CMP relatively unremarkable except for mild hyperglycemia. Lactic acid unremarkable. Lipase unremarkable. CT abdomen pelvis shows dilated small bowel loops with differential air-fluid levels. Concerning for small bowel obstruction with obstructive side at the umbilical hernia. Small esophageal hiatal hernia. Fecal retention in the colon with constipation. Patient is not actively vomiting at this time. General surgery was consulted and patient was discussed with Dr. Shah. No NG tube needed at this time. General surgery evaluated the patient and surgeon reduced the hernia. Patient will be admitted to general surgery. Patient was updated of all the results and further understands the plan. Impression: 1. Small bowel obstruction secondary to incarcerated hernia 2. Hernia reduced by general surgery Lab Data Labs: Laboratory Results - last 24 hr 10/23/24 10:05 WBC 13.4 H RBC 5.68 H Hgb 13.7 Hct 44.5 MCV 78.3 L MCH 24.1 L MCHC 30.8 L RDW Std Deviation 53.7 H RDW Coeff of Faby 19.8 H Plt Count 321 MPV 9.1 Immature Gran % (Auto) 0.500 Neut % (Auto) 83.4 H Lymph % (Auto) 11.4 L Garrard % (Auto) 4.3 Eos % (Auto) 0.2 Baso % (Auto) 0.2 Absolute Neuts (auto) 11.2 H Absolute Lymphs (auto) 1.53 Nucleated RBC % 0 Sodium 139 Potassium 4.7 Chloride 101 Carbon Dioxide 24.3 Anion Gap 13 BUN 19 Creatinine 1.12 Estim Creat Clear Calc 62.13 Est GFR (MDRD) Non-Af 53 L BUN/Creatinine Ratio 17.1 Glucose 102 H Lactic Acid 1.3 Calcium 11.0 Total Bilirubin 0.40 AST 20 ALT 12 Alkaline Phosphatase 155 H Total Protein 7.9 Albumin 4.0 Globulin 3.9 Albumin/Globulin Ratio 1.0 Lipase 38 Radiography Diagnostic Testing: Clinical Impression(s) from Imaging Studies Abdomen/Pelvis CT 10/23/24 10:51 IMPRESSION: 1. Dilated small bowel loops with differential air-fluid levels, measuring up to 3.8 cm. This is concerning for small bowel obstruction with obstructive sided at the umbilical hernia. This appears similar to the prior exam. 2. Small esophageal hiatal hernia. 3. Fecal retention in the colon consistent with constipation. Reading Location: [facility] Discharge Plan Disposition Disposition: Acute Care Hospital [facility] Discharge Date/Time: 10/23/24 16:16
[2024-10-23 11:01] LABS: Lipase 38 U/L (13-75)
[2024-10-23 11:09] LABS: AST(SGOT) 20 U/L (<=31); Alanine Aminotransfer ALT/SGPT 12 U/L (<=34); Alkaline Phosphatase 155 U/L (35-104); Anion Gap 13 (5-15); BUN 19 mg/dL (4-19); BUN/Creat Ratio 17.1 RATIO (10-20); Carbon Dioxide 24.3 mmol/L (21.0-32.0); Chloride 101 mmol/L (98-108); Creatinine, Serum 1.12 mg/dL (0.70-1.20); EST Glomerular Filtration Rate 53 (>60); Estimated Creatinine Clearance 62.13 ml/min (50-250); Globulin 3.9 g/dL (2.2-4.2); Glucose 102 mg/dL (70-99); Potassium 4.7 mmol/L (3.3-5.1); Protein, Total 7.9 g/dL (5.9-8.4); Sodium Level 139 mmol/L (133-145)
--- NOTE | 2024-10-23 13:41 | HP.PCM.SX_ITS ---
HPI - General HPI Narrative ZOIE DE LA PAZ, is a 68 F who presents due to abdominal pain nausea vomiting. Patient is well-known to me and his past medical history for multiple recurrent incisional hernias mid abdomen. Patient is scheduled for next week for an recurrence incisional hernia repair with mesh. Patient was in the ER last Sunday hernia was able to be reduced at bedside. Patient did contact me on the phone on Sunday encourage patient to come to the ER after tried to talk her through reducing her hernia patient did not come in. Did talk to patient yesterday on the phone as patient states that ultrasound called to have an ultrasound done of her hernia and she was unsure about this. Ensured her that I did not order an ultrasound and she would still be having surgery next week. Patient is on Eliquis chronically however she did not take any of her medications today due to the nausea and vomiting. CT abdomen pelvis done showed a bowel obstruction due to the recurrent incisional hernia with a loop of small bowel. I was able to reduce this at bedside. [facility] Medical History Hernia, ventral History of atrial fibrillation Abdominal pain Neuropathic pain Essential (primary) hypertension Cognitive dysfunction ESBL (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 coli infection Wears glasses Former smoker Obesity Ambulates with cane Stroke/cerebrovascular accident Difficulty in walking Poor historian Recurrent incisional hernia with incarceration Incarcerated ventral hernia Obstructive sleep apnea Atrial fibrillation Intraventricular hemorrhage Embolic stroke GERD (gastroesophageal reflux disease) Obesity (BMI 30-39.9) Hyperlipidemia Hypertension Diabetes mellitus Home Medications ?Medication ?Instructions ?Recorded ?Last Taken ?Type omeprazole 20 mg capsule,delayed 20 mg PO DAILY GERd 1 06/08/24 History release amlodipine 10 mg tablet (Norvasc) 10 mg PO QHS HTN 03/1506/07/24 History apixaban 5 mg tablet (Eliquis) 5 mg PO BID blood thinn er 10/04/16 06/08/24 History atorvastatin 80 mg tablet 80 mg PO QHS Cholesterol 06/07/24 Rx lisinopril 40 mg tablet 40 mg PO DAILY HTN 10/25/16 06/08/24 Rx pioglitazone 15 mg tablet 15 mg PO DAILY DM #30 tabs 0 10/09/22 06/08/24 Rx gabapentin 600 mg tablet 600 mg PO BID Nerve Pain 11/2006/08/24 History multivitamin with folic acid 400 1 tab PO DAILY Supple ment 05/14/24 06/08/24 History mcg tablet (Daily-Levon (with folic acid)) carvedilol 25 mg tablet 25 mg PO BID BP #60 tabs 06/08/24 Rx dapagliflozin propanediol 10 mg 10 mg PO DAILY diabete s #30 tabs 06/27/24 Unknown Rx tablet (Farxiga) insulin glargine 100 unit/mL (3 15 unit (0.15 mL) subc ut BIDCM DM 06/27/24 Unknown Rx mL) subcutaneous pen (Lantus #5 pens Solostar U-100 Insulin) sennosides 8.6 mg-docusate sodium 1 tab PO BID #60 tab s 06/27/24 Unknown Rx 50 mg tablet (Stimulant Laxative Plus) benzonatate 200 mg capsule 200 mg PO TID PRN cough Unknown History cholecalciferol (vitamin D3) 50 50 mcg PO DAILY Unknown History mcg (2,000 unit) capsule dulaglutide 4.5 mg/0.5 mL 4.5 mg subcut QWEEK 10/23/24 Unknown History [facility] glipizide 10 mg tablet 10 mg PO BID 10/23/24 Unknow n History metformin 500 mg tablet 500 mg PO BID 10/23/24 Unkno wn History naproxen 500 mg tablet 500 mg PO BID 10/23/24 Unkno wn History nystatin 100,000 unit/gram topical 1 applic topical BI D 10/23/24 Unknown History powder ([facility]) Allergy/AdvReac Type Severity Reaction Status Date / Time iodine Allergy Mild Itching Verified 10/23/24 09:29 Penicillins Allergy Mild Itching Verified 10/23/24 09:29 Family History Father CVA (cerebral vascular accident) Mother Diabetes Stomach cancer Other High cholesterol Hypertension Surgical History History of cholecystectomy Hx of colonoscopy Status post debridement History of hysterectomy S/P repair of ventral hernia Social History household members: none Smoking Status: Former smoker alcohol intake: never substance use type: does not use caffeine: Yes what type of physical activity do you participate in: walking frequency: daily Vital Signs Vital Signs Vital Signs: 10/23/24 09:29 10/23/24 11:29 10/23/24 13:00 Temperature 98.2 F Temperature Source Oral Pulse Rate 100 82 80 Respiratory Rate 18 20 H 18 Blood Pressure 95/47 L 128/78 H 124/74 H Blood Pressure Mean 63 94 90 Pulse Ox 93 95 95 Oxygen Delivery Method Room Air 10/23/24 13:29 Temperature 97.6 F L Temperature Source Pulse Rate 98 Respiratory Rate 22 H Blood Pressure 132/72 H Blood Pressure Mean 92 Pulse Ox 93 Oxygen Delivery Method Weight Weight: 261 lb 7.492 oz Body Mass Index (BMI) 42.2 Physical Exam Const oriented x3 and no apparent distress Resp normal respiratory effort Cardio regular rate GI Inspection: incision other (Midline well-healed, bulge able to be reduced with pushing up and then in. Tender at hernia) and central obesity Palpation: soft and tender other (Upper midline incision/hernia) Results Lab / Micro Data 10/23/24 10:05 10/23/24 10:05 Labs: Laboratory Results - last 24 hr 10/23/24 10:05: WBC 13.4 H, RBC 5.68 H, Hgb 13.7, Hct 44.5, MCV 78.3 L, MCH 24.1 L, MCHC 30.8 L, RDW Std Deviation 53.7 H, RDW Coeff of Faby 19.8 H, Plt Count 321, MPV 9.1, Immature Gran % (Auto) 0.500, Neut % (Auto) 83.4 H, Lymph % (Auto) 11.4 L, Moca % (Auto) 4.3, Eos % (Auto) 0.2, Baso % (Auto) 0.2, Absolute Neuts (auto) 11.2 H, Absolute Lymphs (auto) 1.53, Nucleated RBC % 0, Sodium 139, Potassium 4.7, Chloride 101, Carbon Dioxide 24.3, Anion Gap 13, BUN 19, Creatinine 1.12, Estim Creat Clear Calc 62.13, Est GFR (MDRD) Non-Af 53 L, BUN/Creatinine Ratio 17.1, Glucose 102 H, Lactic Acid 1.3, Calcium 11.0, Total Bilirubin 0.40, AST 20, ALT 12, Alkaline Phosphatase 155 H, Total Protein 7.9, Albumin 4.0, Globulin 3.9, Albumin/Globulin Ratio 1.0, Lipase 38 Imaging Radiology Impression Abdomen/Pelvis CT 10/23/24 10:51 IMPRESSION: 1. Dilated small bowel loops with differential air-fluid levels, measuring up to 3.8 cm. This is concerning for small bowel obstruction with obstructive sided at the umbilical hernia. This appears similar to the prior exam. 2. Small esophageal hiatal hernia. 3. Fecal retention in the colon consistent with constipation. Reading [facility] Assessment & Plan Assessment/Plan (1) Recurrent incisional hernia: (2) Intestinal obstruction due to incisional hernia: (3) Anticoagulant long-term use: PLAN: Plan Able to reduce the hernia at bedside. Patient was unable to take her medications this morning due to nausea and vomiting. Will plan to move up the schedule from next week to tomorrow afternoon. Plan to do an open recurrent incisional hernia repair with mesh, possible laparoscopic, possible removal of previous mesh. Reviewed the procedure with the patient including the risks, including but not limited to infection, bleeding, injury to the small bowel, and recurrence. Will admit patient's, n.p.o. except for meds, consult hospitalist appreciate their help with medical management An Shah M.D. Pager: [phone] [facility] [address] [place] [address], [facility], [address] [place] [address] Office: [phone]
--- NOTE | 2024-10-23 13:52 | CON.PCM.HO_ITS ---
Assessment & Plan Assessment/Plan (1) Ventral hernia: QUALIFIERS: Obstruction and gangrene presence: without obstruction or gangrene Qualified Code(s): K43.9 - Ventral hernia without obstruction or gangrene (2) Atrial fibrillation: QUALIFIERS: Atrial fibrillation type: unspecified Qualified Code(s): I48.91 - Unspecified atrial fibrillation (3) History of diabetes mellitus: (4) Hypertension: QUALIFIERS: Hypertension type: primary hypertension Qualified Code(s): I10 - Essential (primary) hypertension PLAN: Plan # Concern for intestinal obstruction due to incisional hernia -CT scan with concern for small bowel obstruction -Surgery service primary -Patient to be n.p.o. except for meds -Discussed with surgeon, will continue to hold Eliquis, patient did not take it this morning and reports she last took it last night -Management per primary #Hypertension -Continue carvedilol -Will hold lisinopril and amlodipine perioperative to avoid hypotension, if remains hypertensive postoperatively will resume #Type 2 diabetes mellitus -Glucose checks and sliding scale insulin -Patient reports she is only using 16 units of glargine in the morning and she does not know what her glucoses run -Will hold oral hypoglycemic agents perioperatively and these can be resumed on discharge -Will start at 10 units of glargine daily as I query compliance, patient reports she takes this in the morning and did not take it today and her glucose was only 102 -Will check a.m. A1c # Paroxysmal atrial fibrillation -Continue carvedilol -Holding Eliquis for planned surgical intervention #GERD -Continue PPI #Morbid obesity -BMI documented as 42.2 kg/m? at time of admission -Complicates treatment, prognosis, outcomes -Recommend weight loss and lifestyle changes #DVT ppx: SCD Virginia Guerrero MD Time spent in the patient's overall evaluation, decision-making process, review of diagnostic data, adjustment of management, discussion with other providers, nursing and ancillary staff involved in patient's care documentation, 37 Minutes HPI Consult Data Date of Consult: 10/23/24 HPI Narrative Reason for Consultation: Medical management HPI Narrative: ZOIE DE LA PAZ, is a 68 F with history of ventral hernia, morbid obesity, A-fib, diabetes, GERD, hypertension who presented to [facility] ED 10/23/2024 due to nausea and vomiting that started this morning. Patient endorsed she has a ventral hernia and follows with Dr. Shah. She reports chronic abdominal pain however noted that it worsened today and given the worsening with the vomiting she called EMS and came to the hospital. In the ED patient vitally stable, white blood cell count 13.4 but lab workup otherwise unremarkable. CT abdomen pelvis in the ED demonstrated dilated small bowel loops with different air-fluid levels measuring up to 3.8 cm concerning for bowel obstruction. Surgery service contacted and are admitting patient for surgery in the a.m. Hospitalist contacted for medical management. Patient evaluated at bedside and reports history as above, still having abdominal pain and feels nauseous but is not actively vomiting at this time. She reports a little bit of a stuffy nose but ROS otherwise completely negative. Patient endorses using 16 units of long-acting insulin, when asked if this was in the morning or at bedtime she reports she uses it in the morning and did not use it today. Glucose in the ED only 102. When asked what her glucose usually runs patient said she does not know. [facility] Medical History Hernia, ventral History of atrial fibrillation Abdominal pain Neuropathic pain Essential (primary) hypertension Cognitive dysfunction ESBL (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 coli infection Wears glasses Former smoker Obesity Ambulates with cane Stroke/cerebrovascular accident Difficulty in walking Poor historian Recurrent incisional hernia with incarceration Incarcerated ventral hernia Obstructive sleep apnea Atrial fibrillation Intraventricular hemorrhage Embolic stroke GERD (gastroesophageal reflux disease) Obesity (BMI 30-39.9) Hyperlipidemia Hypertension Diabetes mellitus Home Medications ?Medication ?Instructions ?Recorded ?Last Taken ?Type omeprazole 20 mg capsule,delayed 20 mg PO DAILY GERd 1 06/08/24 History release amlodipine 10 mg tablet (Norvasc) 10 mg PO QHS HTN 03/1506/07/24 History apixaban 5 mg tablet (Eliquis) 5 mg PO BID blood thinn er 10/04/16 06/08/24 History atorvastatin 80 mg tablet 80 mg PO QHS Cholesterol 06/07/24 Rx lisinopril 40 mg tablet 40 mg PO DAILY HTN 10/25/16 06/08/24 Rx pioglitazone 15 mg tablet 15 mg PO DAILY DM #30 tabs 0 10/09/22 06/08/24 Rx gabapentin 600 mg tablet 600 mg PO BID Nerve Pain 11/2006/08/24 History multivitamin with folic acid 400 1 tab PO DAILY Supple ment 05/14/24 06/08/24 History mcg tablet (Daily-Levon (with folic acid)) carvedilol 25 mg tablet 25 mg PO BID BP #60 tabs 06/08/24 Rx dapagliflozin propanediol 10 mg 10 mg PO DAILY diabete s #30 tabs 06/27/24 Unknown Rx tablet (Farxiga) insulin glargine 100 unit/mL (3 15 unit (0.15 mL) subc ut BIDCM DM 06/27/24 Unknown Rx mL) subcutaneous pen (Lantus #5 pens Solostar U-100 Insulin) sennosides 8.6 mg-docusate sodium 1 tab PO BID #60 tab s 06/27/24 Unknown Rx 50 mg tablet (Stimulant Laxative Plus) benzonatate 200 mg capsule 200 mg PO TID PRN cough Unknown History cholecalciferol (vitamin D3) 50 50 mcg PO DAILY Unknown History mcg (2,000 unit) capsule dulaglutide 4.5 mg/0.5 mL 4.5 mg subcut QWEEK 10/23/24 Unknown History subcutaneous pen injector (Trulicity) glipizide 10 mg tablet 10 mg PO BID 10/23/24 Unknow n History metformin 500 mg tablet 500 mg PO BID 10/23/24 Unkno wn History naproxen 500 mg tablet 500 mg PO BID 10/23/24 Unkno wn History nystatin 100,000 unit/gram topical 1 applic topical BI D 10/23/24 Unknown History powder ([facility]) Allergy/AdvReac Type Severity Reaction Status Date / Time iodine Allergy Mild Itching Verified 10/23/24 09:29 Penicillins Allergy Mild Itching Verified 10/23/24 09:29 Family History Father CVA (cerebral vascular accident) Mother Diabetes Stomach cancer Other High cholesterol Hypertension Surgical History History of cholecystectomy Hx of colonoscopy Status post debridement History of hysterectomy S/P repair of ventral hernia Social History household members: none Smoking Status: Former smoker alcohol intake: never substance use type: does not use caffeine: Yes what type of physical activity do you participate in: walking frequency: daily ROS ROS Narrative General: Denies fever/chills HENT: Denies headache, little bit of nasal congestion, denies sore throat EYES: Denies changes in vision Resp: Denies cough, denies shortness of breath Cardiac: Denies chest pain GI: Abdominal pain with nausea : Denies changes in urination Extremity: Denies swelling MSK: Denies weakness Neuro: Denies any numbness/tingling Heme: Denies any bleeding or bruising Skin: Denies rashes Psychiatric: No complaints voiced Physical Exam Narrative general: Alert, oriented, no apparent distress HEENT: Atraumatic, normocephalic Eyes: Anicteric, normal conjunctiva, extraocular movements grossly intact Neck: Supple Respiratory: Clear to auscultation bilaterally, normal respiratory effort Cardiovascular: Regular rate and rhythm GI: Tender to palpation Extremities: Trace to 1+ bilateral lower extremity edema which patient reports is chronic Musculoskeletal: Moving all extremities Neuro: No overt focal neurological deficits Skin: Some chronic lower extremity changes Psych: Cooperative Lab / Micro Data 10/23/24 10:05 10/23/24 10:05 Labs: Laboratory Results - last 24 hr 10/23/24 10:05: WBC 13.4 H, RBC 5.68 H, Hgb 13.7, Hct 44.5, MCV 78.3 L, MCH 24.1 L, MCHC 30.8 L, RDW Std Deviation 53.7 H, RDW Coeff of Faby 19.8 H, Plt Count 321, MPV 9.1, Immature Gran % (Auto) 0.500, Neut % (Auto) 83.4 H, Lymph % (Auto) 11.4 L, [place] % (Auto) 4.3, Eos % (Auto) 0.2, Baso % (Auto) 0.2, Absolute Neuts (auto) 11.2 H, Absolute Lymphs (auto) 1.53, Nucleated RBC % 0, Sodium 139, Potassium 4.7, Chloride 101, Carbon Dioxide 24.3, Anion Gap 13, BUN 19, Creatinine 1.12, Estim Creat Clear Calc 62.13, Est GFR (MDRD) Non-Af 53 L, BUN/Creatinine Ratio 17.1, Glucose 102 H, Lactic Acid 1.3, Calcium 11.0, Total Bilirubin 0.40, AST 20, ALT 12, Alkaline Phosphatase 155 H, Total Protein 7.9, Albumin 4.0, Globulin 3.9, Albumin/Globulin Ratio 1.0, Lipase 38 Imaging Radiology Impression Abdomen/Pelvis CT 10/23/24 10:51 IMPRESSION: 1. Dilated small bowel loops with differential air-fluid levels, measuring up to 3.8 cm. This is concerning for small bowel obstruction with obstructive sided at the umbilical hernia. This appears similar to the prior exam. 2. Small esophageal hiatal hernia. 3. Fecal retention in the colon consistent with constipation. Reading [facility] Charges/Coding Visit Charges Office Visits / Consults: 91538 OV L4 Est 30min
--- NOTE | 2024-10-23 15:01 | CASEMGMT ---
Care Management Face to Face with patient for initial transition planning/care coordination assessment in the ED.? This administrative underwriter introduced self and role at [facility]. Patient alert and oriented. Patient willing to participate in assessment and is able to answer all questions appropriately.? Care providers, pharmacy, and demographics verified. Admitting Diagnosis: nausea/vomiting in need of hernia repair Other diagnosis history: afib, hypertension, cognitive dysfunction, diabetes, hyperlipidemia PCP: [facility] Specialists: ?none Preferred Pharmacy: ?[facility] Insurance: [facility] Prescription Benefit: ?yes Living Will/HPOA: ?no LNOK: Sister Living Arrangements: ?Patient lives alone in a one story appt with 2 steps to enter.? Reports to being independent with ADLs, needs assistance with IADLs. Transportation: Does not drive.? Uses [facility] van or friends. DME: Walker, grab bars, glucometer and supplies HHC: ?Patient was set up with [facility], however reports that her aide quit 2 weeks ago. SNF/Rehab: Community Resources: [facility] Home plastic technician, Juanis Patient goals: Patient wishes to discharge home when able. Disposition Plan: admission to acute; RN CM/SW to follow for discharge planning needs that may arise. Bela Restrepo, BAKERY TECHNICIAN, BRANCH EMPLOYMENT COORDINATOR
--- NOTE | 2024-10-23 15:02 | CM.ED ---
Social Work SW met with patient to complete CM assessment, patient was tired and only agreed to talk with SW for a short time. Patient stated that her Direction Home CM was still active, but her HH aide quit two weeks ago saying that patient was too mean. Patient reports they have not been able to find any one to take her place. Patient did state that her phone is currently working, showing SW that she had it with her and it functioned. Patient also stated that she has been able to take care of her self these last two weeks, she has been able to get in the shower, do her hair, and she tries to make herself a sandwich to eat. Patient states that her meals are being delivered but she does not like at least half of them. Patient reported that she spoke to her sister yesterday and her sister told her that her , so I need to leave her alone for awhile. Patient then told SW that she was going to take a nap. Bela Restrepo, OPERATING THEATRE TECHNICIAN, [employer]
[2024-10-23] MEDS: Lactated Ringers 1,000 ML 130 ML IV (17:42)
[2024-10-23] MEDS: Pantoprazole Sodium 40 MG in 0.9% Normal Saline (100mL MB+) 100 ML 330 MG IV (17:43)
[2024-10-23] MEDS: Carvedilol 12.5 MG Tablet PO (17:44)
[2024-10-23 17:53] LABS: Bedside Glucose 79 mg/dL (74-106)
[2024-10-23 18:53] LABS: Bedside Glucose 80 mg/dL (74-106)
[2024-10-23] MEDS: Dextrose 10%-Water 250 ML 125 ML IV (18:55)
[2024-10-23] MEDS: Atorvastatin Calcium 80 MG Tablet PO (20:27)
[2024-10-23] MEDS: Gabapentin 600 MG Tablet PO (20:27)
[2024-10-23 22:09] LABS: Bedside Glucose 128 mg/dL (74-106)
[2024-10-24] VITALS (15 sets, daily range): BP systolic 103–128; BP diastolic 46–62; PULSE 69–104; RESP 12–20; TEMP 36.1–37.2; O2SAT 88–97; BMI 39.5
[2024-10-24] MEDS: Lactated Ringers 1,000 ML 130 ML IV ×2 (01:24→09:27)
[2024-10-24 01:26] LABS: Bedside Glucose 83 mg/dL (74-106)
[2024-10-24] MEDS: Dextrose 10%-Water 250 ML 999 ML IV ×2 (05:45→11:37)
[2024-10-24] MEDS: Menthol/Lanolin/Calamine/Znox 113 GM Tube 1 APPLIC TOPICAL ×2 (05:50→21:29)
[2024-10-24] MEDS: Nystatin Powder 15gm Bottle 1 APPLIC TOPICAL ×2 (05:51→21:28)
--- NOTE | 2024-10-24 06:00 | EKG12_ITS ---
Test Reason : AFIB Blood Pressure : */* mmHG Vent. Rate : 125 BPM Atrial Rate : 125 BPM P-R Int : 142 ms QRS Dur : 66 ms QT Int : 274 ms P-R-T Axes : 63 52 59 degrees QTcB Int : 395 ms Sinus tachycardia Low voltage QRS Borderline ECG When compared with ECG of 24-Oct-2024 04:55, MANUAL COMPARISON REQUIRED DATA IS UNCONFIRMED Confirmed by Ed Yan ([id number]), online editor HARVEY RODRIGUEZ ([id number]) on 10/30/2024 10:01:52 AM Referred By: Confirmed By: Ed Yan
[2024-10-24 06:07] LABS: Absolute Lymphocyte Count 1.78 X10^3/uL (0.83-4.51); Absolute Neutrophil Count 4.4 X10^3/uL (2.0-7.7); Basophil# 0.02 X10^3/uL; Basophil% 0.3 % (0-1); Eosinophil# 0.06 X10^3/uL; Eosinophils% 0.9 % (0-5); Hematocrit 34.2 % (37-47); Hemoglobin 10.5 g/dL (12.0-15.0); Lymphocyte # 1.78 X10^3/ul (0.83-4.51); Lymphocyte % 25.7 % (19-41); Mean Corp Hgb Conc 30.7 g/dL (32-36); Mean Corpuscular Hgb 24.4 pg (27.0-32.0); Mean Corpuscular Volume 79.4 fL (81-99); Monocyte# 0.61 X10^3/uL; Monocyte% 8.8 % (0-10); NRBC Flagged by Analyzer 0 % (0-5); Neutrophil # 4.41 X10^3/uL (2.7-7.7); Neutrophil % 63.7 % (47-70); Platelet Count 233 K/mm3 (150-450); RBC Distribution Width CV 19.2 % (11.6-14.6); RBC Distribution Width SD 54.6 fl (35.1-43.9); Red Blood Count 4.31 M/mm3 (4.2-5.4); White Blood Count 6.9 K/mm3 (4.4-11.0)
[2024-10-24 06:48] LABS: Bedside Glucose 52 mg/dL (74-106)
[2024-10-24 06:48] LABS: Magnesium 1.6 mg/dL (1.5-2.2)
[2024-10-24 06:49] LABS: Bedside Glucose 111 mg/dL (74-106)
[2024-10-24 07:02] LABS: Anion Gap 8 (5-15); BUN 22 mg/dL (4-19); BUN/Creat Ratio 23.8 RATIO (10-20); Calcium,Total 8.7 mg/dL (7.6-11.0); Carbon Dioxide 21.8 mmol/L (21.0-32.0); Chloride 109 mmol/L (98-108); Creatinine, Serum 0.94 mg/dL (0.70-1.20); EST Glomerular Filtration Rate 66 (>60); Estimated Creatinine Clearance 71.36 ml/min (50-250); Glucose 58 mg/dL (70-99); Potassium 4.2 mmol/L (3.3-5.1); Sodium Level 139 mmol/L (133-145)
[2024-10-24 07:10] LABS: Hemoglobin A1c 8.4 % (<=5.6)
[2024-10-24] MEDS: Carvedilol 12.5 MG Tablet PO ×2 (08:35→17:43)
[2024-10-24] MEDS: Pantoprazole Sodium 40 MG in 0.9% Normal Saline (100mL MB+) 100 ML 330 MG IV (10:41)
--- NOTE | 2024-10-24 11:09 | PCM.HOSP.N ---
Hospitalist Note Glucose 58. Pt still NPO. Will dc insulin glargine.
[2024-10-24 12:03] LABS: Bedside Glucose 65 mg/dL (74-106)
--- NOTE | 2024-10-24 12:05 | CASEMGMT ---
Addendum entered by Ira Holguin 10/24/24 12:17: AYE CHAUDHRY to pt room, pt is off of floor for surgery at this time. Original Note: AYE CHAUDHRY into pt room with plan to discuss dc planning, nurse present working on IV. AYE CHAUDHRY to check back.
--- NOTE | 2024-10-24 12:29 | PRE.ANES_ITS ---
ASA Classification* ASA Classification ASA Classification: 3 Assessment & Plan Anesthesia* Anesthesia Assessment Anesthesia Assessment: Discussed sedation and/or anesthesia options, risks, benefits, and alternatives with patient/parents/legal guardian/POA. Questions invited. The patient/parents/legal guardian/POA seems to understand and agrees to proceed with anesthesia plan. Reviewed the physical assessment, medical history, allergy history and patient home medications list prior to surgery/procedure/anesthetic and documented any changes. Performed airway and anesthesia risk assessments. Anesthesia Type Anesthesia Type: General Anesthesia Focused Assessment* Temperature: 98.5 F Pulse Rate: 87 Blood Pressure: 104/58 Respiratory Rate: 16 Pulse Ox: 95 Oxygen Flow Rate (L/min): 2 Airway Assessment Mouth opens: >3 cm Mallampati Score: II Focused Labs Anesthesia Preop lab: CBC WBC 6.9 K/mm3 (4.4-11.0) 10/24/24 05:37 10/24/24 RBC 4.31 M/mm3 (4.2-5.4) 10/24/24 05:37 10/24/24 Hgb 10.5 g/dL (12.0-15.0) L 10/24/24 05:37 5 Hct 34.2 % (37-47) L 10/24/24 05:37 10/24/24 Plt Count 233 K/mm3 (150-450) 10/24/24 05:37 10/24/24 CHEMISTRY Potassium 4.2 mmol/L (3.3-5.1) 10/24/24 05:37 10/24/24 Sodium 139 mmol/L (133-145) 10/24/24 05:37 10/24/24 Magnesium 1.6 mg/dL (1.5-2.2) 10/24/24 05:37 10/24/24 Phosphorus 4.2 mg/dL (2.5-4.9) 08/23/24 06:20 08/23/24 BUN 22 mg/dL (4-19) H 10/24/24 05:37 10/24/24 Creatinine 0.94 mg/dL (0.70-1.20) 10/24/24 05:37 10/24/24 Glucose 58 mg/dL (70-99) L 10/24/24 05:37 10/24/24 POC Glucose 65 mg/dL (74-106) L 10/24/24 11:27 10/24/24 TSH 1.040 uIU/mL (0.358-3.740) 06/09/24 06:52 05/30 08/22 COAG PT 15.3 SECONDS (11.7-14.9) H 06/09/24 06:52 05/30 08/22 Pre-Assessment Diagnosis/Proposed Procedure Planned Operative Procedure(s): Incisional hernia repair with mesh Anesthesia History 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 When Was Last Pacemaker Check QUESTION #4 FULL TEXT: You/Your Family Experience fever (hyperthermia) with Anesthesia Last Oral Intake Last Oral intake: Last Oral Intake NPO since 00:00 10/24/24 11:29 Meds taken in AM with sips of Yes 10/24/24 11:29 water? 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 setter apprentice Female HX of Motion Sickness HX of N/V After Surgery Non-Smoker Duration of Surgery greater than 60 minutes Number of Risk Factors PONV Score Height & Weight Height & Weight: Anesthesia: Height & Weight Height 5 ft 6 in 10/24/24 11:45 Weight: 111.13 kg 10/24/24 11:45 Body Mass Index (BMI) 39.5 10/24/24 11:29 Respiratory Assessment Respiratory Assessment - tool setter apprentice: Respiratory Tract Infection Hx - tool setter apprentice Hx Respiratory Tract Infection No 10/23/24 20:10 STOP Sleep Apnea STOP Sleep Apnea - tool setter apprentice: STOP Sleep Apnea - tool setter apprentice Hx Hypertension Yes 10/23/24 17:06 Hx Sleep Apnea Yes 10/23/24 17:06 CPAP No: pt refuses 10/23/24 17:06 BIPAP No: pt refuses 10/23/24 17:06 Do you snore loudly (louder than talking or can be heard Do you often feel tired/ fatigued/ sleepy during daytime? Has anyone observed you stop breathing during sleep? STOP Results Positive 10/23/24 17:06 QUESTION #5 FULL TEXT : Do you snore loudly (louder than talking or can be heard through closed doors)? 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 Specify any problems Hx of Preganancy in last 3 No 10/23/24 17:06 Months Nurse Filling Out Transfusion EBOOTHE 10/23/24 17:06 & Questions: Date: 10/23/24 10/23/24 17:06 Time: 17:11 10/23/24 17:06 Patient unable to answer at this time (ie. confused, unrespo /Reproduction History /Reproductive History - tool setter apprentice: /Reproductive Hx- tool setter apprentice Hx Now No 10/23/24 20:10 Gestational Age (in weeks): EDC: Hx Hx Para Hx Section SAB No 10/23/24 20:10 Active Medications Active Medications: Current Medications Generic Name Dose Route Start Last Admin Trade Name Freq PRN Reason Stop Dose Admin Acetaminophen 650 mg 10/23/24 16:41 Acetaminophen 325 Mg Tablet PO Q6H PRN PRN Pain Score 1-10 Atorvastatin Calcium 80 mg 10/23/24 22:00 10/23/24 20:27 Atorvastatin Calcium 80 Mg Tablet PO 80 mg QHS MARK Administration Calamine/Phenol 1 applic 10/23/24 22:00 10/24/24 05:50 Menthol/Lanolin/Calamine/Znox 113 Gm Tube TOPICAL 1 applic TID MARK Administration Protocol Carvedilol 12.5 mg 10/23/24 17:00 10/24/24 08:35 Carvedilol 12.5 Mg Tablet PO 12.5 mg BIDCM MARK Administration Protocol Gabapentin 600 mg 10/23/24 22:00 10/24/24 10:34 Gabapentin 600 Mg Tablet PO Not Given BID MARK Glucagon 1 mg 10/23/24 16:41 Glucagon 1 Mg/Ml Syringe IM X1 PRN Hypoglycemia Protocol Clindamycin Phosphate 900 mg in 50 mls @ 75 mls/hr 10/24/24 13:55 Cleocin IV 10/24/24 14:34 PREOP ONE Lactated Ringer's 1,000 mls @ 130 mls/hr 10/23/24 16:41 10/24/24 09:27 IV 130 mls/hr .Q7H42M MARK Administration Pantoprazole Sodium 40 mg/ 110 mls @ 330 mls/hr 10/23/24 16:41 10/24/24 11:14 Sodium Chloride IV Infused Q24 MARK Infusion Dextrose 250 mls @ 0 mls/hr 10/23/24 16:41 10/24/24 11:37 Dextrose 10%-Water IV 999 mls/hr .Q0M PRN Administration HYPOGLYCEMIA Protocol As Directed Sodium Chloride 100 mls @ 15 mls/hr 10/23/24 17:14 IV .Q6H40M PRN Saline Flush Sodium Chloride 100 mls @ 15 mls/hr 10/23/24 17:14 IV .Q6H40M PRN Additional IVPB Infusion Insulin Human Lispro 0 unit 10/23/24 18:00 10/24/24 05:51 Insulin Lispro 100 Unit/Ml Insuln.Pen SC Not Given Q6 [facility] Protocol Morphine Sulfate 2 - 4 mg 10/23/24 16:41 Morphine 2 Mg/Ml Syringe IV Q2H PRN PRN Pain Score 1-10 Nystatin 1 applic 10/23/24 22:00 10/24/24 05:51 Nystatin Powder 15gm Bottle TOPICAL 1 applic TID [facility] Administration Protocol Ondansetron HCl 4 mg 10/23/24 16:41 Ondansetron 4 Mg/2 Ml Vial IV Q8H PRN PRN NAUSEA Oxycodone HCl 5 - 10 mg 10/23/24 16:41 Oxycodone 5 Mg Tablet PO Q4H PRN PRN Pain Score 1-10 Sodium Chloride 10 - 40 ml 10/23/24 17:14 0.9% Saline Lock 10 Ml Syringe IV UD PRN SALINE FLUSH PFSH Medical History Hernia, ventral History of atrial fibrillation Abdominal pain Neuropathic pain Essential (primary) hypertension Cognitive dysfunction ESBL (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 coli infection Wears glasses Former smoker Obesity Ambulates with cane Stroke/cerebrovascular accident Difficulty in walking Poor historian Recurrent incisional hernia with incarceration Incarcerated ventral hernia Obstructive sleep apnea Atrial fibrillation Intraventricular hemorrhage Embolic stroke GERD (gastroesophageal reflux disease) Obesity (BMI 30-39.9) Hyperlipidemia Hypertension Diabetes mellitus Home Medications ?Medication ?Instructions ?Recorded ?Last Taken ?Type omeprazole 20 mg capsule,delayed 20 mg PO DAILY GERd 1 06/08/24 History release amlodipine 10 mg tablet (Norvasc) 10 mg PO QHS HTN 03/1506/07/24 History apixaban 5 mg tablet (Eliquis) 5 mg PO BID blood thinn er 10/04/16 06/08/24 History atorvastatin 80 mg tablet 80 mg PO QHS Cholesterol 06/07/24 Rx lisinopril 40 mg tablet 40 mg PO DAILY HTN 10/25/16 06/08/24 Rx pioglitazone 15 mg tablet 15 mg PO DAILY DM #30 tabs 0 10/09/22 06/08/24 Rx gabapentin 600 mg tablet 600 mg PO BID Nerve Pain 11/2006/08/24 History multivitamin with folic acid 400 1 tab PO DAILY Supple ment 05/14/24 06/08/24 History mcg tablet (Daily-Levon (with folic acid)) carvedilol 25 mg tablet 25 mg PO BID BP #60 tabs 06/08/24 Rx dapagliflozin propanediol 10 mg 10 mg PO DAILY diabete s #30 tabs 06/27/24 Unknown Rx tablet (Farxiga) insulin glargine 100 unit/mL (3 15 unit (0.15 mL) subc ut BIDCM DM 06/27/24 Unknown Rx mL) subcutaneous pen (Lantus #5 pens Solostar U-100 Insulin) sennosides 8.6 mg-docusate sodium 1 tab PO BID #60 tab s 06/27/24 Unknown Rx 50 mg tablet (Stimulant Laxative Plus) benzonatate 200 mg capsule 200 mg PO TID PRN cough Unknown History cholecalciferol (vitamin D3) 50 50 mcg PO DAILY Unknown History mcg (2,000 unit) capsule dulaglutide 4.5 mg/0.5 mL 4.5 mg subcut QWEEK 10/23/24 Unknown History subcutaneous pen injector (Trulicity) glipizide 10 mg tablet 10 mg PO BID 10/23/24 Unknow n History metformin 500 mg tablet 500 mg PO BID 10/23/24 Unkno wn History naproxen 500 mg tablet 500 mg PO BID 10/23/24 Unkno wn History nystatin 100,000 unit/gram topical 1 applic topical BI D 10/23/24 Unknown History powder ([facility] [place]) Allergy/AdvReac Type Severity Reaction Status Date / Time iodine Allergy Mild Itching Verified 10/23/24 09:29 Penicillins Allergy Mild Itching Verified 10/23/24 09:29 Family History Father CVA (cerebral vascular accident) Mother Diabetes Stomach cancer Other High cholesterol Hypertension Surgical History History of cholecystectomy Hx of colonoscopy Status post debridement History of hysterectomy S/P repair of ventral hernia Social History household members: none Smoking Status: Former smoker alcohol intake: never substance use type: does not use caffeine: Yes what type of physical activity do you participate in: walking frequency: daily Review of Systems (Anesthesia) ROS Narrative System reviewed and no additional complaints, except as documented.
[2024-10-24] MEDS: Lactated Ringers 1,000 ML 15 ML IV (12:49)
[2024-10-24] MEDS: Clindamycin 900 MG/50 ML BAG 75 MG IV (13:03)
[2024-10-24 13:20] LABS: Bedside Glucose 56 mg/dL (74-106)
[2024-10-24 13:43] LABS: Bedside Glucose 128 mg/dL (74-106)
--- NOTE | 2024-10-24 13:55 | HERN_PTH ---
PATIENT: ZOIE DE LA PAZ LOC: [facility] U#:[id number] AGE/SX: 68/F ROOM: [facility] RE10/23/[address]: Dr. An Shah MD : 1955 BED: 1 DIS: 11/15/2024 SPEC #: [id number] RECD: 10/24/24 17:04 STATUS: RADHA REAramis #: [id number] TONE: 10/24/24 13:[address]: An Shah DEPT: SURGICAL PATHOLOGY RECD BY: Elaine Wiseman ENTERED: 10/27/24 08:07 SP TYPE: Hernia OTHR DR: MD Dr. Bryce Davis DO Dr. Mark Stutzman, DO Tissues: HERNIA Procedures: Surgery Specimen Level II HEADER OPERATION: Open possible laparoscopic recurrent incisional hernia with mesh PRE-OP DIAGNOSIS: Recurrent incisional hernia, intestinal obstruction due to incisional hernia TISSUE SUBMITTED: A- Incisional hernia sac MICROSCOPIC DIAGNOSIS A. Soft tissue, incisional hernia sac, excision: * Fibroadipose tissue lined by an attenuated mesothelium with focal reactive changes and mild chronic inflammation. MICROSCOPIC DESCRIPTION Slides are reviewed. GROSS DESCRIPTION A. Received in formalin in a container labeled with the patient's name, date of , and incisional hernia sac is a 4.4 x 3.2 x 1.3 cm fragment of yellow-brown, rubbery soft tissue. Serial sections reveal membranous, whitney-pink soft tissue with samaniego-yellow adipose. No distinct hemorrhage or necrosis is identified. Director Digital Communications sections in A1. [facility] 10-27-2024 CPT:39551
--- NOTE | 2024-10-24 14:17 | PCM.OPRPT ---
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 [employer] Field Agent: Becka Castellanos Tasks completed by visitor use assistant: Opening & closing Type of Anesthesia: General/Supplemental RN Documented Start/Stop Times: Operation Date: 10/24/24 13:55 Case Time Into Pre-Op 10/24/24 12:20 Anesthesia Start 10/24/24 13:03 Into Room 10/24/24 13:03 Procedure Start 10/24/24 13:29 Procedure End 10/24/24 14:35 Anesthesia End 10/24/24 14:41 Out of Room 10/24/24 14:41 Into Recovery 10/24/24 14:44 Out of Recovery 10/24/24 15:16 Procedure Start Time: 13:29 Procedure Stop Time: 14:35 Select all DRAINS/GRAFTS/IMPLANTS that apply: Implanted device Implanted device details: Ventralex ST hernia patch 6.4 cm diameter Lot [id number] ref [id number] Special Medications: Clindamycin 900 mg IV x 1 Estimated Blood Loss: < 10 cc Specimen collected: Yes Description of specimen(s) removed: Hernia sac Description of surgery: Patient was brought into the room placed supine on the operating table. Correct patient, procedure, site, positioning, special, was verified prior to procedure. General anesthesia was induced. The abdomen was prepped draped in usual sterile fashion. A upper midline incision was made overlying the hernia per ultrasound with a 15 blade scalpel. This was deepened with electrocautery. The fascia around the hernia defect was cleared and the hernia defect measured 2 cm x 2 cm, this was superior to the previous incisional hernia repair with mesh. An intraabdominal fingersweep was done and no other hernias were appreciated in the vicinity. Ventralex ST hernia patch 6.4 cm was selected. This was secured laterally at its tails with 0 Prolene horizontal mattress suture. The hernia defect was closed with 2 [id number] 0 Prolene. The wound was irrigated with saline. Hemostasis was assured. The skin of the umbilicus was secured to the fascia using 3-0 Vicryl suture interrupted. The incision was closed with 3-0 Vicryl subdermal interrupted sutures and the skin was closed with interrupted 4-0 Monocryl sutures. Steri-Strips and Tegaderm and OpSite were placed over the incision once sterile cotton balls were placed in the umbilicus. Patient was extubated. Patient tolerated procedure well and was taken to the postanesthesia care unit in stable condition. Surgical Findings: See operative report Complications Complications: No
[2024-10-24] MEDS: Bupiv/Epi 0.25% 30 ML Vial (14:18)
--- NOTE | 2024-10-24 14:21 | DCINST_ITS ---
Discharge Instructions Diet Discharge Diet: Light diet - advance as tolerated Activity May shower in (days): 2 (Keep pressure dressing in place for 2 days then okay to remove the bulky dressing, incision will have Steri-Strips over the top leave in place unless they do not fall off in 10 days then okay to remove.) Lifting Restrictions: no lifting >20 lbs x 2 wks, no strenuous exercise for 5 wks Additional Activity Instructions:: - Dressing / Incision Call your doctor if your incision/area has: Continuous Slow Oozing, Sudden Increased Bleeding, Increased Pain/ Swelling, Increased Redness, Foul Smelling Discharge and Swelling at the incision site Call your doctor if you observe: Fever of 101 or Higher Remove Dressing in: 2 days (Okay to remove the pressure dressing) Cleanse incision/area with: Do not get Incision Wet (for 5 days) Additional Dressing/Incision Instructions:: Steri-Strips will fall off in 7 to 10 days, if they do not fall off okay to remove after 10 days. Follow Up Care Please Follow Up With: An Shah MD When: Call the office for a follow-up appointment 2 weeks; after 5 PM and on the weekends call [phone] with any concerns. Test Results: Test results from this visit will be discussed in further detail at your follow- up appointment, if applicable. Discharge Plan Admission Admit Date/Time: 10/23/24 13:44 Attending Provider: An Shah Primary Care Provider: Dennis Pelayo Consulting Providers: Bryce Felder Discharge Orders/Prescriptions Prescriptions: New oxycodone 5 mg capsule 5 mg PO Q6H PRN (Reason: pain) 3 Days Qty: 10 0RF Continued gabapentin 600 mg tablet 600 mg PO BID omeprazole 20 MG capsule 20 mg PO DAILY amlodipine [Norvasc] 10 MG tablet 10 mg PO QHS atorvastatin 80 MG tablet 80 mg PO QHS 0RF lisinopril 40 MG tablet 40 mg PO DAILY 0RF sennosides-docusate sodium [Stimulant Laxative Plus] 8.6-50 mg Tablet 1 tab PO BID Qty: 60 0RF dapagliflozin propanediol [Farxiga] 10 mg tablet 10 mg PO DAILY Qty: 30 0RF insulin glargine [Lantus Solostar U-100 Insulin] 100 unit/mL (3 mL) insulin pen 15 unit subcut BIDCM Qty: 5 0RF multivitamin with folic acid [Daily-Levon (with folic acid)] 400 mcg tablet 1 tab PO DAILY carvedilol 25 mg tablet 25 mg PO BID Qty: 60 0RF Rx Instructions: must administer with a meal/food naproxen 500 mg tablet 500 mg PO BID benzonatate 200 mg capsule 200 mg PO TID PRN (Reason: cough) metformin 500 mg tablet 500 mg PO BID glipizide 10 mg tablet 10 mg PO BID cholecalciferol (vitamin D3) 50 mcg (2,000 unit) capsule 50 mcg PO DAILY Trulicity 4.5 mg/0.5 mL pen injector 4.5 mg SUBCUT QWEEK Patient Comments: UNSURE WHICH DAY OF WEEK. nystatin [Nyamyc] 100,000 unit/gram powder 1 applic topical BID Rx Instructions: USE ON AREA BETWEEN LEGS TWICE DAILY. pioglitazone 15 mg tablet 15 mg PO DAILY Qty: 30 3RF Held Eliquis 5 MG tablet 5 mg PO BID Hold Instructions: Resume on 10/26/24. Referrals / Follow Up: Dennis Pelayo DO [Primary Care Provider] - Disposition Disposition (needs filled in before D/C Order can be placed): Home, Self Care
--- NOTE | 2024-10-24 14:36 | CASEMGMT ---
Social Work SW received call from pt's [facility] Companion Kera Maryraúl. Kera confirms that pt's home health aid quit and a new aid has not been found yet. When pt returns home from the hospital, she will not have an aid to assist her. Kera will follow up with pt once she returns home. Kera to be notified at time of discharge, Green sheet on the chart to facilitate a weekend discharge. ARELIS Malave
--- NOTE | 2024-10-24 14:48 | PCM.POST.ANE ---
Anesthesia: Postop Eval I Current Vital Signs Temperature: 98.0 F Pulse Rate: 85 Blood Pressure: 115/57 Respiratory Rate: 20 Pulse Ox: 92 Assessment Airway patent: Yes Spontaneous unlabored respirations: Yes nausea: No Vomiting: No Anesthesia Complication: No Fluid Hydration Crystalloid volume administer (ml): 900 Total IV fluid infused: 900 Progress Note Anesthesia document: Postop Eval 1 completed: Yes
[2024-10-24] MEDS: 0.9% Normal Saline (1000mL) 1,000 ML 15 ML IV (15:01)
--- NOTE | 2024-10-24 15:03 | PCM.DC.SUM ---
Providers Date of Admission: 10/23/24 Primary Care Physician: Dr. Dennis Pelayo, Consultations 10/23/24 13:49 Consult: Hospitalist Routine Consulting Provider: Virginia Guerrero Reason for Consult: Medical management EMERGENT Consult: No MD Notified: Yes Date Notified: 10/23/24 Time Notified: 13:49 Method of Notification: Verbal 10/27/24 10:12 Consult: Infectious Disease Routine Consulting Provider: Benja Hernandez Reason for Consult: Persistent bacteremia EMERGENT Consult: No Notified: Yes Date Notified: 10/27/24 Time Notified: 10:29 Method of Notification: Answering Service 10/29/24 13:53 Consult: Onc/Wound/heat treat technician Routine Comment: Reason for Consult:: right abdomen Reason For Visit: RECURRENT INCISIONAL HERNIA/SBO Diagnosis Discharge Diagnosis (1) Ventral hernia: Status: Resolved Code(s): K43.9 - Ventral hernia without obstruction or gangrene Qualifiers: Obstruction and gangrene presence: without obstruction or gangrene Qualified Code(s): K43.9 - Ventral hernia without obstruction or gangrene (2) Atrial fibrillation: Status: Chronic Code(s): I48.91 - Unspecified atrial fibrillation Qualifiers: Atrial fibrillation type: unspecified Qualified Code(s): I48.91 - Unspecified atrial fibrillation (3) History of diabetes mellitus: Status: Acute Code(s): Z86.39 - Personal history of other endocrine, nutritional and metabolic disease (4) Hypertension: Status: Chronic Code(s): I10 - Essential (primary) hypertension Qualifiers: Hypertension type: primary hypertension Qualified Code(s): I10 - Essential (primary) hypertension Medications at Discharge Home Medications omeprazole 20 mg capsule,delayed release 20 mg PO DAILY GERd 05/29/14 amlodipine 10 mg tablet (Norvasc) 10 mg PO QHS HTN 10/04/16 apixaban 5 mg tablet (Eliquis) 5 mg PO BID blood thinner 10/04/16 Held on 10/24/24. Instructions: Resume on 10/26/24. atorvastatin 80 mg tablet 80 mg PO QHS Cholesterol 10/25/16 lisinopril 40 mg tablet 40 mg PO DAILY HTN 10/25/16 pioglitazone 15 mg tablet 15 mg PO DAILY DM #30 tabs 10/09/22 gabapentin 600 mg tablet 600 mg PO BID Nerve Pain 01/01/24 multivitamin with folic acid 400 mcg tablet (Daily-Levon (with folic acid)) 1 tab PO DAILY Supplement 05/14/24 carvedilol 25 mg tablet 25 mg PO BID BP #60 tabs 05/19/24 dapagliflozin propanediol 10 mg tablet (Farxiga) 10 mg PO DAILY diabetes #30 tabs 06/27/24 insulin glargine 100 unit/mL (3 mL) subcutaneous pen (Lantus Solostar U-100 Insulin) 15 unit (0.15 mL) subcut BIDCM DM #5 pens 06/27/24 sennosides 8.6 mg-docusate sodium 50 mg tablet (Stimulant Laxative Plus) 1 tab PO BID #60 tabs 06/27/24 benzonatate 200 mg capsule 200 mg PO TID PRN cough 10/23/24 cholecalciferol (vitamin D3) 50 mcg (2,000 unit) capsule 50 mcg PO DAILY 10/23/24 dulaglutide 4.5 mg/0.5 mL subcutaneous pen injector ([facility]) 4.5 mg subcut QWEEK 10/23/24 glipizide 10 mg tablet 10 mg PO BID 10/23/24 metformin 500 mg tablet 500 mg PO BID 10/23/24 naproxen 500 mg tablet 500 mg PO BID 10/23/24 nystatin 100,000 unit/gram topical powder (Nyamyc) 1 applic topical BID 10/23/24 oxycodone 5 mg capsule 5 mg PO Q6H PRN pain 3 days #10 caps 10/24/24 Hospital Course Operations - (Recurrent incisional hernia repair with mesh) Procedures None Summary of Care Provided Minutes Spent on Discharge: 15 Hospital Course: Patient presented to the ER due to mid abdominal pain and nausea vomiting. Patient was found to have small bowel obstruction due to her known hernia. Patient was scheduled to have surgery next week on . Patient was unable to take her Eliquis yesterday morning due to the nausea and vomiting. Patient underwent surgery today recurrent incisional hernia repair with mesh. Patient was able to be started on a diet. Patient was noted to be hypoxic and tachycardiac postop day 0?1 patient did get a CTA done showed no PE, patient also had 2 blood cultures are positive for Staph epidermidis unsure if contaminant additional blood cultures were drawn. Additional blood cultures were negative at 48 hours, postop day 4 patient did have a small amount of drainage from wound due to small drop of cloudy or purulent material this inferior aspect was opened and irrigated 3 times daily. Patient also had issues with hypoglycemia, hypoxia patient was placed on supplemental O2?management per hospitalist. Weight / BMI Weight Weight: 244 lb 15.995 oz Body Mass Index (BMI) 39.5 ABG / Lab / Microbiology Data 10/30/24 07:31 10/30/24 07:31 Laboratory: Laboratory Results - last 24 hr 10/29/24 11:26: POC Glucose 161 H 10/29/24 16:23: POC Glucose 100 10/29/24 21:13: Vancomycin Trough 33.0 H 10/29/24 21:34: POC Glucose 134 H 10/30/24 06:02: POC Glucose 88 10/30/24 07:31: WBC 8.2, RBC 4.93, Hgb 11.8 L, Hct 38.6, MCV 78.3 L, MCH 23.9 L, MCHC 30.6 L, RDW Std Deviation 58.9 H, RDW Coeff of Faby 20.9 H, Plt Count 189, MPV 9.3, Immature Gran % (Auto) 1.600 H, Neut % (Auto) 83.6 H, Lymph % (Auto) 6.7 L, [place] % (Auto) 6.7, Eos % (Auto) 1.0, Baso % (Auto) 0.4, Absolute Neuts (auto) 6.8, Absolute Lymphs (auto) 0.55 L, Nucleated RBC % 0, Platelet Estimate ADEQUATE, Polychromasia 1+, Anisocytosis 1+, Sodium 140, Potassium 5.0, Chloride 108, Carbon Dioxide 23.6, Anion Gap 8, BUN 27 H, Creatinine 1.20, Estim Creat Clear Calc 55.90, Est GFR (MDRD) Non-Af 49 L, BUN/Creatinine Ratio 22.8 H, Glucose 88, Calcium 10.0 Microbiology: Microbiology 10/28/24 09:05 Wound Abcess - Abdominal Gram Stain - Final 10/28/24 09:05 Wound Abcess - Abdominal Wound Culture - Preliminary Yeast Like Organism Yeast Like Organism#2 Gram negative marty 10/25/24 06:05 Blood Culture (Wb) - Anticubital Left Blood Culture - Final Staphylococcus epidermidis 10/26/24 12:42 Blood Culture (Wb) - Left Hand Blood Culture - Preliminary No growth in 48 hours. 10/26/24 11:55 Blood Culture (Wb) - Other Blood Culture - Preliminary No growth in 48 hours. 10/25/24 06:00 Blood Culture (Wb) - Anticubital Right Bacteria Detection (PCR) - Final Staphylococcus epidermidis mecA Resistance Marker 10/25/24 06:00 Blood Culture (Wb) - Anticubital Right Blood Culture - Final Gram positive organism Radiography Diagnostic Testing: Radiology Impression Chest X-Ray 10/30/24 09:30 IMPRESSION: Mild cardiomegaly with vascular congestion and mild degree of CHF. Reading Location: [place] [address] D/C Instructions Discharge Diet: Light diet - advance as tolerated Discharge Activity: May Shower Additional Activity Instructions: - Call your doctor if your incision/area has: Continuous Slow Oozing, Sudden Increased Bleeding, Increased Pain/ Swelling, Increased Redness, Foul Smelling Discharge and Swelling at the incision site Call your doctor if you observe: Fever of 101 or Higher Cleanse incision/area with: Do not get Incision Wet (for 5 days) Additional Dressing/Incision Instructions: Steri-Strips will fall off in 7 to 10 days, if they do not fall off okay to remove after 10 days. Please Follow Up With: An Shah MD When: Call the office for a follow-up appointment 2 weeks; after 5 PM and on the weekends call [phone] with any concerns. Meaningful Use Info Meaningful Use Meaningful Use Diagnoses (Choose all that apply): None applicable Ischemic Stroke Statin Dosing Therapy Reference: STATIN DOSE THERAPY REFERENCE: * Patients > 75 years receive moderate or high dose statin therapy. * Patients 75 years or YOUNGER should receive HIGH intensity statin dose unless contraindicated. You will be required to document reason for non-treatment if statin daily dose does not meet guidelines. HIGH DOSE STATIN THERAPY DAILY Atorvastatin > than or = to 40 mg Rosuvastatin > than or = to 20 mg Amlodipine + Atorvastatin > than or = to 2.5/40 mg Ezetimibe + Simvastatin 10/80 mg Simvastatin 80mg Discharge Plan Admission Admit Date/Time: 10/23/24 13:44 Attending Provider: An Shah Primary Care Provider: Dennis Pelayo Consulting Providers: Bryce Felder; Bobo Aguilar; Benja Hernandez Discharge Orders/Prescriptions Prescriptions: New oxycodone 5 mg capsule 5 mg PO Q6H PRN (Reason: pain) 3 Days Qty: 10 0RF Continued gabapentin 600 mg tablet 600 mg PO BID omeprazole 20 MG capsule 20 mg PO DAILY amlodipine [Norvasc] 10 MG tablet 10 mg PO QHS atorvastatin 80 MG tablet 80 mg PO QHS 0RF lisinopril 40 MG tablet 40 mg PO DAILY 0RF sennosides-docusate sodium [Stimulant Laxative Plus] 8.6-50 mg Tablet 1 tab PO BID Qty: 60 0RF dapagliflozin propanediol [Farxiga] 10 mg tablet 10 mg PO DAILY Qty: 30 0RF insulin glargine [Lantus Solostar U-100 Insulin] 100 unit/mL (3 mL) insulin pen 15 unit subcut BIDCM Qty: 5 0RF multivitamin with folic acid [Daily-Levon (with folic acid)] 400 mcg tablet 1 tab PO DAILY carvedilol 25 mg tablet 25 mg PO BID Qty: 60 0RF Rx Instructions: must administer with a meal/food naproxen 500 mg tablet 500 mg PO BID benzonatate 200 mg capsule 200 mg PO TID PRN (Reason: cough) metformin 500 mg tablet 500 mg PO BID glipizide 10 mg tablet 10 mg PO BID cholecalciferol (vitamin D3) 50 mcg (2,000 unit) capsule 50 mcg PO DAILY Trulicity 4.5 mg/0.5 mL pen injector 4.5 mg SUBCUT QWEEK Patient Comments: UNSURE WHICH DAY OF WEEK. nystatin [Nyamyc] 100,000 unit/gram powder 1 applic topical BID Rx Instructions: USE ON AREA BETWEEN LEGS TWICE DAILY. pioglitazone 15 mg tablet 15 mg PO DAILY Qty: 30 3RF Held Eliquis 5 MG tablet 5 mg PO BID Hold Instructions: Resume on 10/26/24. Referrals / Follow Up: Dennis Pelayo DO [Primary Care Provider] - Disposition Disposition (needs filled in before D/C Order can be placed): Home, Self Care
[2024-10-24 15:08] LABS: Bedside Glucose 86 mg/dL (74-106)
--- NOTE | 2024-10-24 15:39 | POSTOPAN2_ITS ---
Anesthesia Postop Eval I Sum Postop Eval Completion status Anesthesia document: Postop Eval 1 completed: Yes Anesthesia Postop Eval I Summary Anesthesia Postop Eval I Summary: Anesthesia Postop Eval I: Assessment Summary Airway patent Yes 10/24/24 14:48 AUTO BODY REPAIRER FIBERGLASS.[email or web address] Spontaneous unlabored Yes 10/24/24 14:48 AUTO BODY REPAIRER FIBERGLASS.TMEN respirations Mental status nausea No 10/24/24 14:48 AUTO BODY REPAIRER FIBERGLASS.TMEN Vomiting No 10/24/24 14:48 AUTO BODY REPAIRER FIBERGLASS.TMEN Anesthesia Postop Eval I: Fluid Summary Crystalloid volume administer 900 10/24/24 14:48 AUTO BODY REPAIRER FIBERGLASS.TMEN (ml) Colloids volume administered ( ml) Blood Product volume administered (ml) Total IV fluid infused 900 10/24/24 14:48 AUTO BODY REPAIRER FIBERGLASS.TMEN Anesthesia Postop Eval I: Summary Notes Anesthesia Complication No 10/24/24 14:48 AUTO BODY REPAIRER FIBERGLASS.TMEN Anesthesia Complication Comment: Post-operative progress note Anesthesia: Postop Eval II Evaluation Mental status: Awake Pain Level: 0 nausea: No Vomiting: No
--- NOTE | 2024-10-24 15:39 | PCM.POSTANE2 ---
Anesthesia Postop Eval I Sum Postop Eval Completion status Anesthesia document: Postop Eval 1 completed: Yes Anesthesia Postop Eval I Summary Anesthesia Postop Eval I Summary: Anesthesia Postop Eval I: Assessment Summary Airway patent Yes 10/24/24 14:48 COPPER [email or web address] Spontaneous unlabored Yes 10/24/24 14:48 COPPER PLATER.[email or web address] respirations Mental status nausea No 10/24/24 14:48 COPPER PLATER.[email or web address] Vomiting No 10/24/24 14:48 COPPER PLATER.[email or web address] Anesthesia Postop Eval I: Fluid Summary Crystalloid volume administer 900 10/24/24 14:48 COPPER PLATER.[email or web address] (ml) Colloids volume administered ( ml) Blood Product volume administered (ml) Total IV fluid infused 900 10/24/24 14:48 COPPER PLATER.TMEN Anesthesia Postop Eval I: Summary Notes Anesthesia Complication No 10/24/24 14:48 COPPER PLATER.TMEN Anesthesia Complication Comment: Post-operative progress note Anesthesia: Postop Eval II Evaluation Mental status: Awake Pain Level: 0 nausea: No Vomiting: No
[2024-10-24 16:42] LABS: Bedside Glucose 120 mg/dL (74-106)
[2024-10-24] MEDS: Lactated Ringers 1,000 ML 80 ML IV (17:42)
[2024-10-24] MEDS: oxyCODONE 5 MG Tablet PO ×2 (17:43→23:25)
[2024-10-24] MEDS: Acetaminophen 325 MG Tablet 650 MG PO (17:43)
[2024-10-24] MEDS: Gabapentin 600 MG Tablet PO (21:29)
[2024-10-24] MEDS: Atorvastatin Calcium 80 MG Tablet PO (21:29)
[2024-10-24] MEDS: Insulin Lispro 100 UNIT/ML INSULN.PEN SC (21:34)
[2024-10-25] VITALS (29 sets, daily range): BP systolic 79–148; BP diastolic 38–89; PULSE 73–124; RESP 16–31; TEMP 36.5–37.7; O2SAT 93–100
[2024-10-25 02:33] LABS: Bedside Glucose 284 mg/dL (74-106)
--- NOTE | 2024-10-25 03:31 | EKG12_ITS ---
Test Reason : RHYTHM CHANGE Blood Pressure : */* mmHG Vent. Rate : 134 BPM Atrial Rate : * BPM P-R Int : * ms QRS Dur : 74 ms QT Int : 228 ms P-R-T Axes : * 47 60 degrees QTcB Int : 340 ms Atrial fibrillation with rapid ventricular response Abnormal ECG When compared with ECG of 25-Oct-2024 03:40, MANUAL COMPARISON REQUIRED DATA IS UNCONFIRMED Confirmed by CATHERINE GAFFNEY, BRIA ([id number]), editorial project manager AHRVEY RODRIGUEZ ([id number]) on 10/28/2024 8:29:45 AM Referred By: Confirmed By: BRIA ALEXANDER MD
[2024-10-25 04:05] LABS: Allen Test Positive; Base Excess -2 mmol/L (-2 to +2); Bicarbonate 23.1 mmol/L (22-26); Blood Gas Specimen Type ART; Mode Not entered; O2 Delivery Device Cannula; PO2 71 mmHG (75-100); SITE R Radial; SO2 94 % (95-99); Total Carbon Dioxide 24 mmol/L; pH 7.39 (7.35-7.45)
--- NOTE | 2024-10-25 04:25 | RAD_ITS ---
PROCEDURE: CHEST 1 VIEW (PORTABLE) 10/25/2024 REASON FOR EXAM: TACHYPNEA AND WHEEZES TECHNIQUE: Frontal view of the chest. COMPARISON: 06/09/2024 FINDINGS: The patient is again rotated to the right more so on the current study. This superimposes mediastinal structures over the right lung and unfolds of the thoracic aorta. The lungs appear clear. The visualized osseous structures appear within limits. RAD/Chest 1 View (Portable) IMPRESSION: Considering rotation no evidence of acute disease. Reading Location: [id number]
[2024-10-25 05:22] LABS: Pro- Brain NATRIURETIC PEPTIDE 1109 pg/mL (<=900)
--- NOTE | 2024-10-25 05:32 | PCM.HOSP.N ---
Hospitalist Note I was contacted by med-certified surgical technologist and informed patient was having increasing shortness of breath, low-grade fever 99.8 ?F, tachypnea of ~28 breaths/min and persistent sinus tachycardia of ~120 bpm. Her ABG revealed pH 7.39/ pCO2 38 mmHg/ pO2 71 mmHg/HCO3 23.1 mmol/L at 94% on 2L NC. Her chest x-ray revealed mild pulmonary vascular congestion with a corresponding NT pro-BNP II of 1,109 pg/mL consistent with mild iatrogenic AE CHF with patient and ordered furosemide 40 mg IV x 1 with repeat NT pro-BNP II pending in a.m. Because of her fever she was started on empiric IV Levaquin and IV Flagyl given her listed allergy to PCN with blood cultures drawn before antibiotics. UA is also pending at this time. Med-surgery RN was updated with plan. RUN DATE: 10/25/24 [facility], DEPARTMENT OF LABORATORIES PAGE 1 RUN TIME: 05 Specimen Inquiry [id number] , [place], [address] PATIENT: ZOIE DE LA PAZ LOC: [facility] U #: [id number] : 1955 AGE/SX: 68/F FACILITY[facility] [place] [facility] [place]: Dr. An Shah MD STATUS:ADM IN ED: 1 DIS: ~ SPEC #: [id number] TONE: 10/25/24 STATUS: COMP REQ #: [id number] RECD: 10/25/[address]: Dr. An Shah MD ENTERED: 10/25/[address] [facility] [address]: Dr. Bryce Felder, DO Dr. Dennis Pelayo, DO ~ Test Result Flag Reference Range IBG Blood Gas Type ART SITE R Radial ARTHUR TEST Positive Mode Not entered O2 Delivery Dev Cannula FI02 2.0 pH 7.39 7.35-7.45 pCO2 38.0 35-45 mmHg PO2 71 L 75-100 mmHG HCO3 23.1 22-26 mmol/L BE -2 -2 to +2 mmol/L TOTAL CO2 24 mmol/L SO2 94 L 95-99 %
[2024-10-25] MEDS: Nystatin Powder 15gm Bottle 1 APPLIC TOPICAL ×3 (05:55→22:07)
[2024-10-25] MEDS: Menthol/Lanolin/Calamine/Znox 113 GM Tube 1 APPLIC TOPICAL ×3 (05:55→22:07)
[2024-10-25] MEDS: levoFLOXacin IV 750 MG/150 ML BAG 100 MG IV (05:55)
[2024-10-25] MEDS: Furosemide 40 MG/4 ML Vial IV (06:14)
[2024-10-25] MEDS: Acetaminophen 325 MG Tablet 650 MG PO ×2 (06:30→16:22)
[2024-10-25] MEDS: Insulin Lispro 100 UNIT/ML INSULN.PEN SC ×4 (06:44→22:07)
[2024-10-25 07:04] LABS: Bedside Glucose 224 mg/dL (74-106)
--- NOTE | 2024-10-25 07:56 | CT_ITS ---
PROCEDURE: CTA CHEST W/WO CONTRAST 10/25/2024 REASON FOR EXAM: 68-year-old female, HYPOXIA TECHNIQUE: CTA axial imaging of the chest with intravenous contrast. Coronal and Sagittal reconstruction series were provided. 3D, 3D post processing, 3D reconstructions, Maximum intensity projection (MIPs) Volume rendering and Shaded surface rendering was provided. PATIENT PREPARATION: Per protocol CONTRAST: Isovue-300 VOLUME: 100ML One or more dose reduction techniques were used (e.g., Automated exposure control, adjustment of the mA and/or kV according to patient size, use of iterative reconstruction technique). RADIATION DOSE SUMMARY: CTDlvol: 50 mGy DLP: 675 mGycm COMPARISON: CT chest 05/16/2024. FINDINGS: Hardware: None. Lymph nodes: No axillary, mediastinal or hilar lymphadenopathy. Heart: Mild cardiomegaly without pericardial effusion. Moderate coronary artery and mild thoracic aortic calcifications. The great vessels are normal in caliber. Pulmonary Vessels: No central filling defect within the segmental or subsegmental pulmonary arteries. Lungs and Airways: Visualization is slightly limited by motion artifact. The central airways are patent. Bibasilar atelectasis/scarring. Unchanged tiny right pleural effusion with adjacent atelectasis. No pneumothorax. Upper Abdomen: Punctate foci of gas along the anterior hepatic dome (series 2, images 9 and 43) Bones: Degenerative changes of the thoracic spine. CT/CTA Chest W/WO Contrast IMPRESSION: 1. Punctate foci of gas within the upper abdomen, likely representing pneumoper itoneum given patient's diagnosis of bowel obstruction. Emergent CT abdomen pelvis is recommended for further evaluation. 2. No acute pulmonary embolism. 3. Mild cardiomegaly and stable tiny right pleural effusion. Dr. Gomez discussed these findings via telephone with AYE Ferrell at 10:48 am on 10/25/24. Reading Location: [id number]
[2024-10-25] MEDS: 0.9% Saline Lock 10 ML Syringe IV ×2 (08:19→22:12)
[2024-10-25] MEDS: DiphenhydrAMINE 50 MG/ML Syringe IV (08:19)
[2024-10-25] MEDS: MethylPREDNISolone 125 MG/2 ML Vial 60 MG IV (08:19)
[2024-10-25] MEDS: glipiZIDE 10 MG Tablet PO ×2 (08:20→17:22)
[2024-10-25] MEDS: Carvedilol 12.5 MG Tablet PO (08:20)
--- NOTE | 2024-10-25 08:38 | PCM.PN.SRG ---
Subjective Subjective The patient reports that she is having a pain at her incision site Objective Data Objective Data Vital Signs: Vital Signs Temp Pulse Resp BP Pulse Ox O2 Del Method O2 Flow Rate 99.7 F H 115 H 30 H 106/68 95 Nasal Cannula 3 10/25/24 07:44 10/25/24 07:44 10/25/24 07:44 10/25/24 07:44 10/25/24 07:48 10/25/24 07:48 10/25/24 07:48 Oxygen Flow Rate (L/min) 3 Oxygen Delivery Method Nasal Cannula Weight: 244 lb 15.995 oz Body Mass Index (BMI) 39.5 Intake & Output: Intake and Output for Last 24 Hours 10/23/24 10/24/24 10/25/24 23:59 23:59 23:59 Intake Total 1410 / 1425 3987.67 / 4287.67 1493 / 1493 Balance 1410 / 1425 3987.67 / 4287.67 1493 / 1493 Lab / Micro Data 10/24/24 05:37 10/24/24 05:37 Labs: Laboratory Results - last 24 hr 10/24/24 11:27: POC Glucose 65 L 10/24/24 12:58: POC Glucose 56 L 10/24/24 13:25: POC Glucose 128 H 10/24/24 14:48: POC Glucose 86 10/24/24 16:18: POC Glucose 120 H 10/24/24 21:31: POC Glucose 284 H 10/25/24 04:17: NT pro BNP II 1109 H 10/25/24 06:44: POC Glucose 224 H ABG Data ABG results: ABG 10/25/24 04:01 Specimen Type ART Sample Site R Radial pH 7.39 Bicarbonate Actual 23.1 Total CO2 24 Base Excess -2 O2 Saturation 94 L O2 % 2.0 ABG pCO2 38.0 ABG pO2 71 L Angel Test Positive O2 Delivery Device Cannula Vent Mode Not entered Radiography Diagnostic Testing: Radiology Impression Chest X-Ray 10/25/24 04:25 IMPRESSION: Considering rotation no evidence of acute disease. Reading Location: [id number] Physical Exam Const oriented x3 and no apparent distress Resp Resp Narrative: Short of breath Cardio Rate: tachycardic GI soft to palpation Assessment & Plan Assessment/Plan (1) Ventral hernia: PLAN: The patient had ventral hernia repair. She became hypoxic overnight requiring more oxygen and tachycardic and tachypneic. I am ordering a CTA of her chest today and resuming her Eliquis. Resume her home diabetic medications except for metformin due to the CTA. Heri Robin MD Pager: [facility] [address] [place] [address], [address] [place] [address] Office:
[2024-10-25 10:00] LABS: Bacteria 0 SEEN /hpf (None Seen); Mucous, Urine 0 SEEN /hpf (<or=2+)
[2024-10-25 10:08] LABS: Color, Urine Yellow (Yellow); Glucose, Dipstick Normal (Normal); Ketone-Dipstick Negative (Negative); Leukocyte Esterase-Dipstick 500 /ul (Negative); Nitrite-Dipstick Positive (Negative); Occult Blood-Urine Negative /ul (Negative); Protein-Dipstick Negative (Negative); Specific Gravity, Urine 1.015 (1.002-1.030); Urine Bilirubin Dipstick Negative (Negative); Urine Clarity Clear (Clear); Urine Urobilinogen Normal (Normal)
[2024-10-25 10:19] LABS: Squamous Epithelial Cells - UA 0-5 SEEN /hpf (5-10); White Blood Cells 25-50 SEEN /hpf (0-5)
[2024-10-25] MEDS: APIXABAN 5 MG TABLET PO ×2 (10:52→22:07)
[2024-10-25] MEDS: Lisinopril 40 MG Tablet PO (10:52)
[2024-10-25] MEDS: Pantoprazole Sodium 20 MG Tablet PO (10:52)
[2024-10-25] MEDS: Pioglitazone Hydrochloride 15 MG Tablet PO (10:52)
[2024-10-25 11:19] LABS: Bedside Glucose 210 mg/dL (74-106)
--- NOTE | 2024-10-25 11:57 | PN.HOSP_ITS ---
Reason for Visit Reason for Visit: Diagnoses Other acute postprocedural pain (10/23/24) Essential (primary) hypertension (10/23/24) Unspecified atrial fibrillation (10/23/24) Incisional hernia with obstruction, without gangrene (10/23/24) Incisional hernia without obstruction or gangrene (10/23/24) Ventral hernia without obstruction or gangrene (10/23/24) nursing home (current) use of anticoagulants (10/23/24) Personal history of other endocrine, nutritional and metabolic disease (10/23/24) Subjective Subjective Confusion. Objective Data Objective Data Vital Signs: Vital Signs Temp Pulse Resp BP Pulse Ox O2 Del Method O2 Flow Rate 36.8 C 100 24 H 111/55 L 97 Nasal Cannula 3.5 10/25/24 10:44 10/25/24 10:44 10/25/24 10:44 10/25/24 10:44 10/25/24 10:44 10/25/24 10:44 10/25/24 10:44 Oxygen Flow Rate (L/min) 3.5 Oxygen Delivery Method Nasal Cannula Weight: 111.13 kg Body Mass Index (BMI) 39.5 Intake & Output: Intake and Output for Last 24 Hours 10/23/24 10/24/24 10/25/24 23:59 23:59 23:59 Intake Total 1410 / 1425 3987.67 / 4287.67 1593 / 1593 Balance 1410 / 1425 3987.67 / 4287.67 1593 / 1593 Lab / Micro Data 10/24/24 05:37 10/24/24 05:37 Labs: Laboratory Results - last 24 hr 10/24/24 11:27: POC Glucose 65 L 10/24/24 12:58: POC Glucose 56 L 10/24/24 13:25: POC Glucose 128 H 10/24/24 14:48: POC Glucose 86 10/24/24 16:18: POC Glucose 120 H 10/24/24 21:31: POC Glucose 284 H 10/25/24 04:17: NT pro BNP II 1109 H 10/25/24 06:44: POC Glucose 224 H 10/25/24 09:55: Urine Color Yellow, Urine Clarity Clear, Urine pH 6.0, Ur Specific [place] 1.015, Urine Protein Negative, Urine Glucose (UA) Normal, Urine Ketones Negative, Urine Occult Blood Negative, Urine Nitrite Positive H, Urine Bilirubin Negative, Urine Urobilinogen Normal, Ur Leukocyte Esterase 500 H, Urine WBC 25-50 SEEN, Ur Squamous Epith Cells 0-5 SEEN, Urine Bacteria 0 SEEN, Urine Mucus 0 SEEN 10/25/24 10:58: POC Glucose 210 H ABG Data ABG results: ABG 10/25/24 04:01 Specimen Type ART Sample Site R Radial pH 7.39 Bicarbonate Actual 23.1 Total CO2 24 Base Excess -2 O2 Saturation 94 L O2 % 2.0 ABG pCO2 38.0 ABG pO2 71 L Angel Test Positive O2 Delivery Device Cannula Vent Mode Not entered Radiography Diagnostic Testing: Radiology Impression Chest X-Ray 10/25/24 04:25 IMPRESSION: Considering rotation no evidence of acute disease. Reading Location: [facility] Chest CTA 10/25/24 07:56 IMPRESSION: 1. Punctate foci of gas within the upper abdomen, likely representing pneumoperitoneum given patient's diagnosis of bowel obstruction. Emergent CT abdomen pelvis is recommended for further evaluation. 2. No acute pulmonary embolism. 3. Mild cardiomegaly and stable tiny right pleural effusion. Dr. Gomez discussed these findings via telephone with AYE Ferrell at 10:48 am on 10/25/24. Reading Location: [facility] Physical Exam Const alert and no apparent distress HEENT head/scalp atraumatic and moist oral mucous membranes Resp Resp Narrative: coarse breath sounds bilaterally. Cardio regular rate, regular rhythm, S1 normal heart sound and S2 normal heart sound GI normal to inspection, nondistended, normoactive bowel sounds, soft to palpation, non-tender and non-distended Extremity normal to inspection and full ROM Neuro Sensorium / Orientation: awake and alert Assessment & Plan Assessment/Plan (1) Dyspnea: PLAN: CTA chest showed small pleural effusions. It did show air, but message was realyed to surgery who said it was expected post-operative findings. Pt groggy. Concerning for oversedation with medication. DC gabapentin, morphine and oxycodone. Pleural effusions are very small. Doubt significantly contriubing to symptoms. PLAN: Plan DM2: glucose in 200s. Now back on diet, will resume glargine. Charges/Coding Visit Charges Inpatient E&M: 48298 Subs Hosp L2
--- NOTE | 2024-10-25 12:01 | CASEMGMT ---
Social Work- SW provided [employer] transportation printable to pt for discharge planing and also included that information on green sheet. [employer] acceptable for oxygen if needed at discharge per pt. SW remains available to follow for any discharge planning needs. ARELIS Muhammad
[2024-10-25 14:04] LABS: Red Blood Cells-Urine 0 SEEN /hpf (0-5)
[2024-10-25] MEDS: 0.9% Normal Saline (1000mL) 1,000 ML 200 ML IV (14:41)
[2024-10-25 14:47] LABS: Absolute Lymphocyte Count 0.45 X10^3/uL (0.83-4.51); Basophil# 0.07 X10^3/uL; Basophil% 0.6 % (0-1); Eosinophil# 0.06 X10^3/uL; Eosinophils% 0.5 % (0-5); Hematocrit 37.4 % (37-47); Hemoglobin 11.2 g/dL (12.0-15.0); Lymphocyte # 0.45 X10^3/ul (0.83-4.51); Lymphocyte % 3.6 % (19-41); Mean Corp Hgb Conc 29.9 g/dL (32-36); Mean Corpuscular Hgb 24.3 pg (27.0-32.0); Mean Corpuscular Volume 81.3 fL (81-99); Mean Platelet Vol. 8.8 fl (6.2-12.0); Monocyte# 0.64 X10^3/uL; Monocyte% 5.2 % (0-10); NRBC Flagged by Analyzer 0 % (0-5); Neutrophil # 11.04 X10^3/uL (2.7-7.7); Neutrophil % 89.5 % (47-70); POSITIVE DIFFERENTIAL YES; POSITIVE MORPHOLOGY YES; Platelet Count 185 K/mm3 (150-450); RBC Distribution Width CV 19.5 % (11.6-14.6); RBC Distribution Width SD 55.6 fl (35.1-43.9); White Blood Count 12.3 K/mm3 (4.4-11.0)
[2024-10-25 15:16] LABS: Anion Gap 8 (5-15); BUN 23 mg/dL (4-19); BUN/Creat Ratio 19.9 RATIO (10-20); Calcium,Total 8.8 mg/dL (7.6-11.0); Carbon Dioxide 20.8 mmol/L (21.0-32.0); Chloride 107 mmol/L (98-108); Creatinine, Serum 1.17 mg/dL (0.70-1.20); EST Glomerular Filtration Rate 51 (>60); Estimated Creatinine Clearance 57.34 ml/min (50-250); Glucose 217 mg/dL (70-99); Potassium 5.1 mmol/L (3.3-5.1); Sodium Level 136 mmol/L (133-145)
[2024-10-25 15:30] LABS: Differential Indicated SCAN CRITERIA MET
--- NOTE | 2024-10-25 16:23 | NURSING ---
pt educated on I.S and repositioning. pt refused to lay on rt side. Repositioned higher in bed. incont. large amt urine and small stool. purewick changed. pillows used for positioning. heels off bed. tylenol given for pain. abd dressing d/i. abd obese noted sl firm on rt side. pt states does not feel more distended that earlier today.
[2024-10-25 17:42] LABS: Bedside Glucose 229 mg/dL (74-106)
[2024-10-25] MEDS: Insulin Glargine-YFGN 100 UNIT/ML Pen 15 UNIT SC (22:09)
[2024-10-25] MEDS: Atorvastatin Calcium 80 MG Tablet PO (22:10)
[2024-10-25] MEDS: 0.9% Normal Saline (100mL Bag) 100 ML 15 ML IV (22:13)
[2024-10-25 22:28] LABS: Bedside Glucose 210 mg/dL (74-106)
[2024-10-26] VITALS (18 sets, daily range): BP systolic 98–130; BP diastolic 45–85; PULSE 102–118; RESP 20–28; TEMP 36.6–38.1; O2SAT 92–97
[2024-10-26] MEDS: Acetaminophen 325 MG Tablet 650 MG PO ×3 (02:30→21:31)
[2024-10-26] MEDS: Menthol/Lanolin/Calamine/Znox 113 GM Tube 1 APPLIC TOPICAL ×3 (05:15→21:34)
[2024-10-26] MEDS: Nystatin Powder 15gm Bottle 1 APPLIC TOPICAL ×3 (05:15→21:34)
[2024-10-26] MEDS: levoFLOXacin IV 750 MG/150 ML BAG 100 MG IV (06:25)
[2024-10-26 07:19] LABS: Absolute Lymphocyte Count 0.72 X10^3/uL (0.83-4.51); Absolute Neutrophil Count 12.9 X10^3/uL (2.0-7.7); Basophil# 0.09 X10^3/uL; Basophil% 0.6 % (0-1); Hemoglobin 10.8 g/dL (12.0-15.0); Lymphocyte # 0.72 X10^3/ul (0.83-4.51); Mean Corp Hgb Conc 30.9 g/dL (32-36); Mean Corpuscular Hgb 24.4 pg (27.0-32.0); Mean Platelet Vol. 9.5 fl (6.2-12.0); Monocyte% 4.8 % (0-10); NRBC Flagged by Analyzer 0 % (0-5); Neutrophil # 12.89 X10^3/uL (2.7-7.7); Neutrophil % 89.2 % (47-70); POSITIVE MORPHOLOGY YES; Platelet Count 198 K/mm3 (150-450); RBC Distribution Width CV 19.2 % (11.6-14.6); RBC Distribution Width SD 54.8 fl (35.1-43.9); Red Blood Count 4.43 M/mm3 (4.2-5.4); White Blood Count 14.5 K/mm3 (4.4-11.0)
--- NOTE | 2024-10-26 07:32 | PN.HOSP_ITS ---
Reason for Visit Reason for Visit: Diagnoses Other acute postprocedural pain (10/23/24) Essential (primary) hypertension (10/23/24) Unspecified atrial fibrillation (10/23/24) Incisional hernia with obstruction, without gangrene (10/23/24) Incisional hernia without obstruction or gangrene (10/23/24) Ventral hernia without obstruction or gangrene (10/23/24) Dyspnea, unspecified (10/23/24) retirement (current) use of anticoagulants (10/23/24) Personal history of other endocrine, nutritional and metabolic disease (10/23/24) Subjective Subjective Has abdominal pain. Objective Data Objective Data Vital Signs: Vital Signs Temp Pulse Resp BP Pulse Ox O2 Del Method O2 Flow Rate 37.0 C 94 18 113/49 L 95 Nasal Cannula 3 10/25/24 22:03 10/25/24 23:12 10/25/24 23:12 10/25/24 23:12 10/25/24 23:12 10/25/24 23:12 10/25/24 22:03 Oxygen Flow Rate (L/min) 3 Oxygen Delivery Method Nasal Cannula Weight: 111.13 kg Body Mass Index (BMI) 39.5 Intake & Output: Intake and Output for Last 24 Hours 10/24/24 10/25/24 10/26/24 23:59 23:59 23:59 Intake Total 3987.67 / 4287.67 2794 / 2794 100 / 100 Output Total 550 / 550 Balance 3987.67 / 4287.67 2244 / 2244 100 / 100 Lab / Micro Data 10/26/24 05:23 10/26/24 05:23 Labs: Laboratory Results - last 24 hr 10/25/24 09:55: Urine Color Yellow, Urine Clarity Clear, Urine pH 6.0, Ur Specific [place] 1.015, Urine Protein Negative, Urine Glucose (UA) Normal, Urine Ketones Negative, Urine Occult Blood Negative, Urine Nitrite Positive H, Urine Bilirubin Negative, Urine Urobilinogen Normal, Ur Leukocyte Esterase 500 H, Urine RBC 0 SEEN, Urine WBC 25-50 SEEN, Ur Squamous Epith Cells 0-5 SEEN, Urine Bacteria 0 SEEN, Urine Mucus 0 SEEN 10/25/24 10:58: POC Glucose 210 H 10/25/24 14:07: WBC 12.3 H, RBC 4.60, Hgb 11.2 L, Hct 37.4, MCV 81.3, MCH 24.3 L , MCHC 29.9 L, RDW Std Deviation 55.6 H, RDW Coeff of Faby 19.5 H, Plt Count 185, MPV 8.8, Immature Gran % (Auto) 0.600, Neut % (Auto) 89.5 H, Lymph % (Auto) 3.6 L, [place] % (Auto) 5.2, Eos % (Auto) 0.5, Baso % (Auto) 0.6, Absolute Neuts (auto) 11.0 H, Absolute Lymphs (auto) 0.45 L, Nucleated RBC % 0, Differential Comment , Sodium 136, Potassium 5.1, Chloride 107, Carbon Dioxide 20.8 L, Anion Gap 8, BUN 23 H, Creatinine 1.17, Estim Creat Clear Calc 57.34, Est GFR (MDRD) Non-Af 51 L, BUN/Creatinine Ratio 19.9, Glucose 217 H, Calcium 8.8 10/25/24 17:16: POC Glucose 229 H 10/25/24 22:06: POC Glucose 210 H Radiography Diagnostic Testing: Radiology Impression Chest CTA 10/25/24 07:56 IMPRESSION: 1. Punctate foci of gas within the upper abdomen, likely representing pneumoperitoneum given patient's diagnosis of bowel obstruction. Emergent CT abdomen pelvis is recommended for further evaluation. 2. No acute pulmonary embolism. 3. Mild cardiomegaly and stable tiny right pleural effusion. Dr. Gomez discussed these findings via telephone with AYE Ferrell at 10:48 am on 10/25/24. Reading Location: [facility] Physical Exam Const alert and no apparent distress HEENT head/scalp atraumatic and moist oral mucous membranes Resp normal respiratory effort, no retractions, no use of accessory muscles and clear to auscultation bilaterally Cardio regular rate, regular rhythm, S1 normal heart sound and S2 normal heart sound GI normal to inspection, nondistended, normoactive bowel sounds and soft to palpation GI Narrative: right abdominal incision clear and dry and well-approximated. Extremity normal to inspection and full ROM Neuro Sensorium / Orientation: awake and alert Assessment & Plan Assessment/Plan (1) Bacteremia: PLAN: Blood cultures on 10/25 positive 1 for Staph epi and GPC the other GPC in clusters. Seems unlikely that these were BOTH contaminated, but the GPC in clusters is concerning for MSSA/MRSA. Follow up further ID and sensitivities. Start vanc and repeat BCx. If true infection, this could explain the changes that patient experienced on 10/25. Pt was started on empiric levofloxacin and metronidazole on the . Will continue for now. Adjust abx based on final culture results. (2) Dyspnea: PLAN: CTA chest showed small pleural effusions. It did show air, but message was realyed to surgery who said it was expected post-operative findings. Pt groggy. Concerning for oversedation with medication. DC gabapentin, morphine and oxycodone. Pleural effusions are very small. Doubt significantly contributing to symptoms. (3) Hypotension: PLAN: Resolved. Please review the notes from 10/25. Pt required IVF. I discontinued lisinopril, furosemide, and started hold parameters carvedilol. Amlodipine ordered by primary service last night but not given. Will discontinue. PLAN: Plan DM2: glucose in 200s. Now back on diet, will resume glargine. Continue pioglitazone, glipizide and SSI. HTN: meds held Obesity Class II: complicates care and recovery. Afib: carvedilol with hold parameter. Resume as BP allows. Back on apixaban. Hernia repair per GS Charges/Coding Visit Charges Inpatient E&M: 02387 Subs Hosp L2
[2024-10-26 07:39] LABS: Anion Gap 9 (5-15); BUN 29 mg/dL (4-19); BUN/Creat Ratio 26.8 RATIO (10-20); Calcium,Total 8.9 mg/dL (7.6-11.0); Carbon Dioxide 20.6 mmol/L (21.0-32.0); Chloride 108 mmol/L (98-108); Creatinine, Serum 1.07 mg/dL (0.70-1.20); EST Glomerular Filtration Rate 56 (>60); Estimated Creatinine Clearance 62.69 ml/min (50-250); Glucose 155 mg/dL (70-99); Potassium 4.6 mmol/L (3.3-5.1); Pro- Brain NATRIURETIC PEPTIDE 1220 pg/mL (<=900); Sodium Level 138 mmol/L (133-145)
[2024-10-26 07:57] LABS: Differential Indicated SCAN CRITERIA MET
--- NOTE | 2024-10-26 08:43 | PN.SURG_ITS ---
Subjective Subjective Patient had positive blood cultures this morning. She is not having any complaints of pain this morning. Objective Data Objective Data Vital Signs: Vital Signs Temp Pulse Resp BP Pulse Ox O2 Del Method O2 Flow Rate 98.1 F 104 H 20 H 108/47 L 95 Nasal Cannula 3 10/26/24 07:30 10/26/24 07:30 10/26/24 07:30 10/26/24 07:30 10/26/24 07:30 10/26/24 07:30 10/26/24 07:30 Oxygen Flow Rate (L/min) 3 Oxygen Delivery Method Nasal Cannula Weight: 244 lb 15.995 oz Body Mass Index (BMI) 39.5 Intake & Output: Intake and Output for Last 24 Hours 10/24/24 10/25/24 10/26/24 23:59 23:59 23:59 Intake Total 3987.67 / 4287.67 2794 / 2794 250 / 250 Output Total 550 / 550 Balance 3987.67 / 4287.67 2244 / 2244 250 / 250 Lab / Micro Data 10/26/24 05:23 10/26/24 05:23 Labs: Laboratory Results - last 24 hr 10/25/24 09:55: Urine Color Yellow, Urine Clarity Clear, Urine pH 6.0, Ur Specific [place] 1.015, Urine Protein Negative, Urine Glucose (UA) Normal, Urine Ketones Negative, Urine Occult Blood Negative, Urine Nitrite Positive H, Urine Bilirubin Negative, Urine Urobilinogen Normal, Ur Leukocyte Esterase 500 H, Urine RBC 0 SEEN, Urine WBC 25-50 SEEN, Ur Squamous Epith Cells 0-5 SEEN, Urine Bacteria 0 SEEN, Urine Mucus 0 SEEN 10/25/24 10:58: POC Glucose 210 H 10/25/24 14:07: WBC 12.3 H, RBC 4.60, Hgb 11.2 L, Hct 37.4, MCV 81.3, MCH 24.3 L , MCHC 29.9 L, RDW Std Deviation 55.6 H, RDW Coeff of Faby 19.5 H, Plt Count 185, MPV 8.8, Immature Gran % (Auto) 0.600, Neut % (Auto) 89.5 H, Lymph % (Auto) 3.6 L, [place] % (Auto) 5.2, Eos % (Auto) 0.5, Baso % (Auto) 0.6, Absolute Neuts (auto) 11.0 H, Absolute Lymphs (auto) 0.45 L, Nucleated RBC % 0, Differential Comment , Sodium 136, Potassium 5.1, Chloride 107, Carbon Dioxide 20.8 L, Anion Gap 8, BUN 23 H, Creatinine 1.17, Estim Creat Clear Calc 57.34, Est GFR (MDRD) Non-Af 51 L, BUN/Creatinine Ratio 19.9, Glucose 217 H, Calcium 8.8 10/25/24 17:16: POC Glucose 229 H 10/25/24 22:06: POC Glucose 210 H 10/26/24 05:23: WBC 14.5 H, RBC 4.43, Hgb 10.8 L, Hct 35.0 L, MCV 79.0 L, MCH 24.4 L, MCHC 30.9 L, RDW Std Deviation 54.8 H, RDW Coeff of Faby 19.2 H, Plt Count 198, MPV 9.5, Immature Gran % (Auto) 0.400, Neut % (Auto) 89.2 H, Lymph % (Auto) 5.0 L, [place] % (Auto) 4.8, Eos % (Auto) 0.0, Baso % (Auto) 0.6, Absolute Neuts (auto) 12.9 H, Absolute Lymphs (auto) 0.72 L, Nucleated RBC % 0, Differential Comment , Sodium 138, Potassium 4.6, Chloride 108, Carbon Dioxide 20.6 L, Anion Gap 9, BUN 29 H, Creatinine 1.07, Estim Creat Clear Calc 62.69, E st GFR (MDRD) Non-Af 56 L, BUN/Creatinine Ratio 26.8 H, Glucose 155 H, Calcium 8.9, NT pro BNP II 1220 H Micro: Microbiology 10/25/24 06:05 Blood Culture (Wb) - Anticubital Left Blood Culture - Preliminary 10/25/24 06:00 Blood Culture (Wb) - Anticubital Right Bacteria Detection (PCR) - Final Staphylococcus epidermidis mecA Resistance Marker 10/25/24 06:00 Blood Culture (Wb) - Anticubital Right Blood Culture - Preliminary Radiography Diagnostic Testing: Radiology Impression Chest CTA 10/25/24 07:56 IMPRESSION: 1. Punctate foci of gas within the upper abdomen, likely representing pneumoperitoneum given patient's diagnosis of bowel obstruction. Emergent CT abdomen pelvis is recommended for further evaluation. 2. No acute pulmonary embolism. 3. Mild cardiomegaly and stable tiny right pleural effusion. Dr. Gomez discussed these findings via telephone with AYE Ferrell at 10:48 am on 10/25/24. Reading Location: [facility] Physical Exam Const oriented x3 and no apparent distress Resp normal respiratory effort GI soft to palpation and non-tender Assessment & Plan Assessment/Plan (1) Bacteremia: (2) Ventral hernia: PLAN: Plan The patient is tolerating a regular diet. She is now positive for gram-positive cocci in both bottles. She has been started on vancomycin. The incision looks clean dry and intact with no erythema. Unsure as to the source of the bacteremia. Patient had hypoxia and tachycardia yesterday and had a CTA of the chest which was negative for PE. Heri Robin MD Pager: [facility] [address] [place] [address], [address] [place] [address] Office:
[2024-10-26] MEDS: Insulin Glargine-YFGN 100 UNIT/ML Pen 15 UNIT SC ×2 (08:59→21:38)
[2024-10-26] MEDS: APIXABAN 5 MG TABLET PO ×2 (09:00→21:35)
[2024-10-26] MEDS: glipiZIDE 10 MG Tablet PO ×2 (09:01→16:39)
[2024-10-26] MEDS: Pioglitazone Hydrochloride 15 MG Tablet PO (09:01)
[2024-10-26] MEDS: Pantoprazole Sodium 20 MG Tablet PO (09:01)
[2024-10-26] MEDS: Vancomycin HCl 2,000 MG in 0.9% Normal Saline (500mL Bag) 500 ML 250 MG IV (09:02)
--- NOTE | 2024-10-26 09:46 | PCM.RX.CS ---
Consult Antibiotic Management Pharmacy has been consulted to manage selected antibiotic: Vancomycin Type of Intervention Type of Consult: New start Suspected Infection Suspected Infection: Bacteremia Labs Labs: Sodium 138 mmol/L (133-145) 10/26/24 05:23 Potassium 4.6 mmol/L (3.3-5.1) 10/26/24 05:23 Chloride 108 mmol/L (98-108) 10/26/24 05:23 Carbon Dioxide 20.6 mmol/L (21.0-32.0) L 10/26/24 05:23 Anion Gap 9 (5-15) 10/26/24 05:23 BUN 29 mg/dL (4-19) H 10/26/24 05:23 Creatinine 1.07 mg/dL (0.70-1.20) 10/26/24 05:23 Est GFR (MDRD) Non-Af 56 (>60) L 10/26/24 05:23 BUN/Creatinine Ratio 26.8 RATIO (10-20) H 10/26/24 05:23 Glucose 155 mg/dL (70-99) H 10/26/24 05:23 Microbiology Microbiology: Microbiology 10/25/24 06:05 Blood Culture (Wb) - Anticubital Left Blood Culture - Preliminary 10/25/24 06:00 Blood Culture (Wb) - Anticubital Right Bacteria Detection (PCR) - Final Staphylococcus epidermidis mecA Resistance Marker 10/25/24 06:00 Blood Culture (Wb) - Anticubital Right Blood Culture - Preliminary Pharmacy Plan for Drug Dosing Pharmacy Plan for Drug Dosing: NEW START IV VANCOMYCIN Consulting Physician: Emerita Indication: bacteremia Goal Trough: 15-20 mg/dL SrCr: 1.07 mg/dL CrCl: 62 ml/min Comments: loading dose of 2000mg given 10/26/24 @ 0902 Vancomycin Dose: Will start 1500mg Q12 10/26 @ 2100 and get a trough prior to 4th total dose per policy. Pending Level: 10/27/24 @ 2029 Pharmacy Service will continue to monitor and adjust dosing as required.
--- NOTE | 2024-10-26 10:11 | NURSING ---
downtime documentation 10/26/24 12am until 7am
[2024-10-26 10:35] LABS: Bedside Glucose 141 mg/dL (74-106)
[2024-10-26 11:17] LABS: Bedside Glucose 177 mg/dL (74-106)
[2024-10-26] MEDS: Insulin Lispro 100 UNIT/ML INSULN.PEN SC ×2 (12:00→21:37)
[2024-10-26 16:29] LABS: Bedside Glucose 178 mg/dL (74-106)
[2024-10-26] MEDS: Carvedilol 12.5 MG Tablet PO (16:39)
[2024-10-26] MEDS: Albuterol 2.5 MG/3 ML VIAL.NEB. INHALATION ×2 (17:12→23:17)
[2024-10-26] MEDS: Albumin Human 25% (100 mL) 25 GM/100 ML BAG IV (20:23)
[2024-10-26] MEDS: 0.9% Saline Lock 10 ML Syringe IV ×3 (20:27→23:34)
[2024-10-26] MEDS: Atorvastatin Calcium 80 MG Tablet PO (21:39)
[2024-10-26 21:55] LABS: Magnesium 1.3 mg/dL (1.5-2.2); Phosphorus 1.4 mg/dL (2.7-4.5)
[2024-10-26] MEDS: Vancomycin HCl 1,500 MG in 0.9% Normal Saline (500mL Bag) 500 ML 250 MG IV (22:04)
[2024-10-26] MEDS: 0.9% Normal Saline (100mL Bag) 100 ML 15 ML IV (22:05)
[2024-10-26] MEDS: Magnesium Sulfate 2 GM in Dextrose 5%-Water (100mL Bag) 100 ML IV (23:12)
[2024-10-26] MEDS: Potassium Phosphate 40 MM in 0.9% Normal Saline (500mL Bag) 500 ML 62.5 MM IV (23:31)
[2024-10-27] VITALS (24 sets, daily range): BP systolic 100–134; BP diastolic 43–96; PULSE 99–154; RESP 20–32; TEMP 36.6–37.8; O2SAT 91–96
[2024-10-27 00:22] LABS: Bedside Glucose 187 mg/dL (74-106)
[2024-10-27] MEDS: Acetaminophen 325 MG Tablet 650 MG PO ×3 (04:54→23:16)
[2024-10-27] MEDS: Nystatin Powder 15gm Bottle 1 APPLIC TOPICAL ×3 (04:55→23:16)
[2024-10-27] MEDS: Menthol/Lanolin/Calamine/Znox 113 GM Tube 1 APPLIC TOPICAL ×3 (04:55→23:16)
[2024-10-27] MEDS: Albuterol 2.5 MG/3 ML VIAL.NEB. INHALATION (05:15)
[2024-10-27] MEDS: 0.9% Saline Lock 10 ML Syringe IV ×4 (05:26→20:23)
[2024-10-27] MEDS: 0.9% Normal Saline (100mL Bag) 100 ML 15 ML IV ×2 (06:44→15:43)
[2024-10-27] MEDS: levoFLOXacin IV 750 MG/150 ML BAG 100 MG IV (06:45)
[2024-10-27 07:07] LABS: Absolute Neutrophil Count 10.7 X10^3/uL (2.0-7.7); Basophil# 0.04 X10^3/uL; Basophil% 0.3 % (0-1); Eosinophil# 0.01 X10^3/uL; Eosinophils% 0.1 % (0-5); Hematocrit 30.9 % (37-47); Hemoglobin 9.7 g/dL (12.0-15.0); Lymphocyte % 4.3 % (19-41); Mean Corp Hgb Conc 31.4 g/dL (32-36); Mean Corpuscular Hgb 24.4 pg (27.0-32.0); Mean Corpuscular Volume 77.8 fL (81-99); Mean Platelet Vol. 9.1 fl (6.2-12.0); Monocyte# 0.36 X10^3/uL; Monocyte% 3.1 % (0-10); NRBC Flagged by Analyzer 0 % (0-5); Neutrophil # 10.68 X10^3/uL (2.7-7.7); POSITIVE DIFFERENTIAL YES; POSITIVE MORPHOLOGY YES; Platelet Count 164 K/mm3 (150-450); RBC Distribution Width CV 19.4 % (11.6-14.6); RBC Distribution Width SD 54.2 fl (35.1-43.9); Red Blood Count 3.97 M/mm3 (4.2-5.4); White Blood Count 11.7 K/mm3 (4.4-11.0)
[2024-10-27 07:38] LABS: Bedside Glucose 87 mg/dL (74-106)
[2024-10-27 07:44] LABS: Anion Gap 11 (5-15); BUN 30 mg/dL (4-19); BUN/Creat Ratio 29.7 RATIO (10-20); Calcium,Total 8.8 mg/dL (7.6-11.0); Carbon Dioxide 17.3 mmol/L (21.0-32.0); Chloride 109 mmol/L (98-108); Creatinine, Serum 1.01 mg/dL (0.70-1.20); EST Glomerular Filtration Rate 60 (>60); Estimated Creatinine Clearance 66.42 ml/min (50-250); Glucose 47 mg/dL (70-99); Potassium 4.6 mmol/L (3.3-5.1); Sodium Level 137 mmol/L (133-145)
--- NOTE | 2024-10-27 08:04 | PN.HOSP_ITS ---
Reason for Visit Reason for Visit: Diagnoses Other acute postprocedural pain (10/23/24) Essential (primary) hypertension (10/23/24) Unspecified atrial fibrillation (10/23/24) Hypotension, unspecified (10/23/24) Incisional hernia with obstruction, without gangrene (10/23/24) Incisional hernia without obstruction or gangrene (10/23/24) Ventral hernia without obstruction or gangrene (10/23/24) Dyspnea, unspecified (10/23/24) Bacteremia (10/23/24) [facility]CC (current) use of anticoagulants (10/23/24) Personal history of other endocrine, nutritional and metabolic disease (10/23/24) Subjective Subjective Patient is a 68-year-old lady with history of ventral hernia who presented with nausea vomiting. CT of the abdomen and pelvis obtained demonstrated small bowel loops with different air-fluid levels concerning for bowel obstruction. Patient was admitted to the surgical service. UnderwentRecurrent incisional hernia repair with mesh on 10/24/2024. Postoperative period complicated by hypoxia and hypoglycemia. Objective Data Objective Data Vital Signs: Vital Signs Temp Pulse Resp BP Pulse Ox O2 Del Method O2 Flow Rate 98.1 F 103 H 22 H 109/62 94 Nasal Cannula 2 10/27/24 05:36 10/27/24 05:36 10/27/24 05:36 10/27/24 05:36 10/27/24 05:36 10/27/24 05:36 10/27/24 05:36 Oxygen Flow Rate (L/min) 2 Oxygen Delivery Method Nasal Cannula Weight: 111.13 kg Body Mass Index (BMI) 39.5 Intake & Output: Intake and Output for Last 24 Hours 10/25/24 10/26/24 10/27/24 23:59 23:59 23:59 Intake Total 2794 / 2794 1580.00 / 1580.00 634 / 634 Output Total 550 / 550 500 / 500 Balance 2244 / 2244 1080.00 / 1080.00 634 / 634 Lab / Micro Data 10/27/24 06:48 10/27/24 06:48 Labs: Laboratory Results - last 24 hr 10/26/24 06:24: POC Glucose 141 H 10/26/24 10:57: POC Glucose 177 H 10/26/24 16:11: POC Glucose 178 H 10/26/24 21:14: Phosphorus 1.4 L*, Magnesium 1.3 L 10/26/24 21:34: POC Glucose 187 H 10/27/24 06:48: Sodium 137, Potassium 4.6, Chloride 109 H, Carbon Dioxide 17.3 L , Anion Gap 11, BUN 30 H, Creatinine 1.01, Estim Creat Clear Calc 66.42, Est GFR (MDRD) Non-Af 60, BUN/Creatinine Ratio 29.7 H, Glucose 47 L, Calcium 8.8 10/27/24 07:21: POC Glucose 87 Micro: Microbiology 10/25/24 06:05 Blood Culture (Wb) - Anticubital Left Blood Culture - Preliminary 10/25/24 06:00 Blood Culture (Wb) - Anticubital Right Bacteria Detection (PCR) - Final Staphylococcus epidermidis mecA Resistance Marker 10/25/24 06:00 Blood Culture (Wb) - Anticubital Right Blood Culture - Preliminary Physical Exam Narrative GENERAL: cooperative HEENT: Atraumatic; normocephalic EYES; Anicteric, Normal Conjunctiva NECK; supple, normal thyroid, RESPIRATORY: Diminished to auscultation CARDIOVASCULAR: Regular S1 S2, GI: Protuberant abdomen, incision site CDI : No Renal angle tenderness; EXTREMITIES: No edema, no clubbing, MUSCULOSKELETAL: no muscle wasting NEURO: Awake; no lateralizing signs. SKIN: No Rash PSYCH; Flat affect Assessment & Plan Assessment/Plan (1) Bacteremia: (2) Hypotension: (3) History of diabetes mellitus: (4) Ventral hernia: PLAN: Plan Patient is a 68-year-old lady with history of ventral hernia who presented with nausea vomiting. CT of the abdomen and pelvis obtained demonstrated small bowel loops with different air-fluid levels concerning for bowel obstruction. Patient was admitted to the surgical service. UnderwentRecurrent incisional hernia repair with mesh on 10/24/2024. Postoperative period complicated by hypoxia and hypoglycemia. 1. Acute intestinal obstruction secondary to incisional hernia ? Patient was admitted to the surgical service. UnderwentRecurrent incisional hernia repair with mesh on 10/24/2024. 2. Bacteremia ? Initial blood cultures positive for staph epi possibly contaminant repeat blood cultures sent patient started on broad-spectrum antibiotic therapy pending results of repeat cultures 3. Diabetes mellitus type II -Patient stay complicated by hypoglycemia. Patient's oral hypoglycemics held. Patient was on long-acting insulin dose adjusted given recurrent hypoglycemia. Also placed on Accu-Cheks a.c. and at bedtime and covered with sliding scale insulin 4. Class III obesity with BMI of 42 ? Complicating care weight loss advised 5. Essential hypertension ? Patient blood pressure has been running on the low side did continue with home meds with holding parameters 6. Paroxysmal atrial fibrillation ? Rate controlled patient was on apixaban which was held prior to surgery, Subsequently resumed following surgery 7. GERD -Continue PPI 8. Anemia ? Secondary to chronic disorder monitoring H&H and transfuse if patient becomes symptomatic or hemoglobin falls below 7 DVT prophylaxis ? On on apixaban 9. Hypophosphatemia ? Corrected per protocol, repeat labs ordered for 10. Hypomagnesemia ? Corrected per protocol, repeat labs ordered for a.m. 11. DVT prophylaxis ? On apixaban Time spent in the patient's overall evaluation, decision-making process, review of diagnostic data, adjustment of management, discussion with other providers, nursing and ancillary staff involved in patient's care documentation, 52 Minutes Charges/Coding Visit Charges Inpatient E&M: 96981 [facility] L3
--- NOTE | 2024-10-27 08:16 | PN.SURG_ITS ---
Subjective Subjective Patient evaluated resting comfortably in bed. She notes generalized abdominal pain/discomfort. She denies any nausea, vomiting. She seems to be tolerating her diet. Positive bowel movements. Objective Data Objective Data Vital Signs: Vital Signs Temp Pulse Resp BP Pulse Ox O2 Del Method O2 Flow Rate 98.1 F 103 H 22 H 109/62 94 Nasal Cannula 2 10/27/24 05:36 10/27/24 05:36 10/27/24 05:36 10/27/24 05:36 10/27/24 05:36 10/27/24 05:36 10/27/24 05:36 Oxygen Flow Rate (L/min) 2 Oxygen Delivery Method Nasal Cannula Weight: 244 lb 15.995 oz Body Mass Index (BMI) 39.5 Intake & Output: Intake and Output for Last 24 Hours 10/25/24 10/26/24 10/27/24 23:59 23:59 23:59 Intake Total 2794 / 2794 1580.00 / 1580.00 634 / 634 Output Total 550 / 550 500 / 500 Balance 2244 / 2244 1080.00 / 1080.00 634 / 634 Lab / Micro Data 10/27/24 06:48 10/27/24 06:48 Labs: Laboratory Results - last 24 hr 10/26/24 06:24: POC Glucose 141 H 10/26/24 10:57: POC Glucose 177 H 10/26/24 16:11: POC Glucose 178 H 10/26/24 21:14: Phosphorus 1.4 L*, Magnesium 1.3 L 10/26/24 21:34: POC Glucose 187 H 10/27/24 06:48: Sodium 137, Potassium 4.6, Chloride 109 H, Carbon Dioxide 17.3 L , Anion Gap 11, BUN 30 H, Creatinine 1.01, Estim Creat Clear Calc 66.42, Est GFR (MDRD) Non-Af 60, BUN/Creatinine Ratio 29.7 H, Glucose 47 L, Calcium 8.8 10/27/24 07:21: POC Glucose 87 Micro: Microbiology 10/25/24 06:05 Blood Culture (Wb) - Anticubital Left Blood Culture - Preliminary 10/25/24 06:00 Blood Culture (Wb) - Anticubital Right Bacteria Detection (PCR) - Final Staphylococcus epidermidis mecA Resistance Marker 10/25/24 06:00 Blood Culture (Wb) - Anticubital Right Blood Culture - Preliminary Physical Exam GI GI Narrative: Abdomen- distended, generalized tenderness. Incision c/d/i. Assessment & Plan Assessment/Plan (1) Ventral hernia: QUALIFIERS: Obstruction and gangrene presence: with obstruction but without gangrene Qualified Code(s): K43.6 - Other and unspecified ventral hernia with obstruction, without gangrene PLAN: I am following this patient in conjunction with Dr. Shah. She will independently evaluate this patient. Labs reviewed Encourage ambulation and I.S. Continue regular diet We will continue to monitor this patient Charges/Coding Visit Charges Inpatient E&M: 50780 Subs Hosp L1 (post-op; no charge)
[2024-10-27 08:23] LABS: Differential Indicated SCAN CRITERIA MET
[2024-10-27] MEDS: Vancomycin HCl 1,500 MG in 0.9% Normal Saline (500mL Bag) 500 ML 250 MG IV (08:50)
[2024-10-27] MEDS: Pantoprazole Sodium 20 MG Tablet PO (08:57)
[2024-10-27] MEDS: APIXABAN 5 MG TABLET PO ×2 (08:57→23:16)
[2024-10-27 11:36] LABS: Bedside Glucose 150 mg/dL (74-106)
--- NOTE | 2024-10-27 13:19 | PCM.CONS.GEN ---
Assessment & Plan Assessment/Plan (1) Bacteremia: PLAN: Blood culture identified the Staphylococcus epidermidis, strongly suspect contaminant. Low suspicion for ongoing infection clinically. At this time we will discontinue parenteral vancomycin as well as discontinue levofloxacin and metronidazole. Would observe off antimicrobial therapy HPI Consult Data Date of Consult: 10/27/24 HPI Narrative Reason for Consultation: Bacteremia HPI Narrative: ZOIE DE LA PAZ, is a 68 F who presents multiple comorbidities including obesity, diabetes mellitus, hospitalized last week for hernia repair with mesh. Shortly after surgery patient developed shortness of breath and low-grade fever. Workup for thromboembolic disease was negative. Blood culture subsequently grew Staphylococcus epidermidis. Currently alert responsive her in the microbial regimen reviewed she is currently on vancomycin plus levofloxacin plus metronidazole. Denies any respiratory distress at this time she is currently on room air. No recent fevers. Denies any abdominal pain. Her microbiology data reviewed. [facility] Medical History Hernia, ventral History of atrial fibrillation Abdominal pain Neuropathic pain Essential (primary) hypertension Cognitive dysfunction ESBL (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 coli infection Wears glasses Former smoker Obesity Ambulates with cane Stroke/cerebrovascular accident Difficulty in walking Poor historian Recurrent incisional hernia with incarceration Incarcerated ventral hernia Obstructive sleep apnea Atrial fibrillation Intraventricular hemorrhage Embolic stroke GERD (gastroesophageal reflux disease) Obesity (BMI 30-39.9) Hyperlipidemia Hypertension Diabetes mellitus Home Medications ?Medication ?Instructions ?Recorded ?Last Taken ?Type omeprazole 20 mg capsule,delayed 20 mg PO DAILY GERd 05/29/14 06/08/24 History release amlodipine 10 mg tablet (Norvasc) 10 mg PO QHS HTN 10/04/16 06/07/24 History apixaban 5 mg tablet (Eliquis) 5 mg PO BID blood thinner 10/04/16 06/08/24 History Held on 10/24/24. Instructions: Resume on 10/26/24. atorvastatin 80 mg tablet 80 mg PO QHS Cholesterol 10/25/16 06/07/24 Rx lisinopril 40 mg tablet 40 mg PO DAILY HTN 10/25/16 06/08/24 Rx pioglitazone 15 mg tablet 15 mg PO DAILY DM #30 tabs 10/09/22 06/08/24 Rx gabapentin 600 mg tablet 600 mg PO BID Nerve Pain 01/01/24 06/08/24 History multivitamin with folic acid 400 1 tab PO DAILY Supplement 05/14/24 06/08/24 History mcg tablet (Daily-Levon (with folic acid)) carvedilol 25 mg tablet 25 mg PO BID BP #60 tabs 05/19/24 06/08/24 Rx dapagliflozin propanediol 10 mg 10 mg PO DAILY diabetes #30 tabs 06/27/24 Unknown Rx tablet (Farxiga) insulin glargine 100 unit/mL (3 15 unit (0.15 mL) subcut BIDCM DM 06/27/24 Unknown Rx mL) subcutaneous pen (Lantus #5 pens Solostar U-100 Insulin) sennosides 8.6 mg-docusate sodium 1 tab PO BID #60 tabs 06/27/24 Unknown Rx 50 mg tablet (Stimulant Laxative Plus) benzonatate 200 mg capsule 200 mg PO TID PRN cough 10/23/24 Unknown History cholecalciferol (vitamin D3) 50 50 mcg PO DAILY 10/23/24 Unknown History mcg (2,000 unit) capsule dulaglutide 4.5 mg/0.5 mL 4.5 mg subcut QWEEK 10/23/24 Unknown History [facility] glipizide 10 mg tablet 10 mg PO BID 10/23/24 Unknown History metformin 500 mg tablet 500 mg PO BID 10/23/24 Unknown History naproxen 500 mg tablet 500 mg PO BID 10/23/24 Unknown History nystatin 100,000 unit/gram topical 1 applic topical BID 10/23/24 Unknown History powder ([facility]) oxycodone 5 mg capsule 5 mg PO Q6H PRN pain 3 days #10 10/24/24 Unknown Rx caps Allergy/AdvReac Type Severity Reaction Status Date / Time iodine Allergy Mild Itching Verified 10/23/24 09:29 Penicillins Allergy Mild Itching Verified 10/23/24 09:29 Family History Father CVA (cerebral vascular accident) Mother Diabetes Stomach cancer Other High cholesterol Hypertension Surgical History History of cholecystectomy Hx of colonoscopy Status post debridement History of hysterectomy S/P repair of ventral hernia Social History household members: none Smoking Status: Former smoker alcohol intake: never substance use type: does not use caffeine: Yes what type of physical activity do you participate in: walking frequency: daily ROS ROS Narrative As stated in history of present illness others negative Physical Exam Narrative Alert and responsive does not appear toxic. Lungs with some scattered wheezing heart exam S1-S2 abdomen is obese but soft surgical site looks benign. No focal tenderness. Lab / Micro Data 10/27/24 06:48 10/27/24 06:48 Labs: Laboratory Results - last 24 hr 10/26/24 16:11: POC Glucose 178 H 10/26/24 21:14: Phosphorus 1.4 L*, Magnesium 1.3 L 10/26/24 21:34: POC Glucose 187 H 10/27/24 06:48: WBC 11.7 H, RBC 3.97 L, Hgb 9.7 L, Hct 30.9 L, MCV 77.8 L, MCH 24.4 L, MCHC 31.4 L, RDW Std Deviation 54.2 H, RDW Coeff of Faby 19.4 H, Plt Count 164, MPV 9.1, Immature Gran % (Auto) 1.200 H, Neut % (Auto) 91.0 H, Lymph % (Auto) 4.3 L, [place] % (Auto) 3.1, Eos % (Auto) 0.1, Baso % (Auto) 0.3, Absolute Neuts (auto) 10.7 H, Absolute Lymphs (auto) 0.50 L, Nucleated RBC % 0, Differential Comment COMMENT, Sodium 137, Potassium 4.6, Chloride 109 H, Carbon Dioxide 17.3 L, Anion Gap 11, BUN 30 H, Creatinine 1.01, Estim Creat Clear Calc 66.42, Est GFR (MDRD) Non-Af 60, BUN/Creatinine Ratio 29.7 H, Glucose 47 L, Calcium 8.8 10/27/24 07:21: POC Glucose 87 10/27/24 11:13: POC Glucose 150 H Micro: Microbiology 10/25/24 06:00 Blood Culture (Wb) - Anticubital Right Bacteria Detection (PCR) - Final Staphylococcus epidermidis mecA Resistance Marker 10/25/24 06:00 Blood Culture (Wb) - Anticubital Right Blood Culture - Preliminary Gram positive organism 10/25/24 06:05 Blood Culture (Wb) - Anticubital Left Blood Culture - Preliminary Gram positive organism
--- NOTE | 2024-10-27 14:07 | CASEMGMT ---
Social Work KELLY created in [facility] a list of snf facilities in network w/pt's insurance, in pt's preferred geographic area and complete w/quality and resource use data. SW met w/pt in regard to discharge plan. Pt states she needs help at home as her aide quit, she states the aide said I was mean with her, but I wasn't. Pt aware will take time to get another aide. SW spoke w/her about going somewhere for rehab, pt states no, she will go home. SW reviewed therapy w/her, that she is not moving well, pt still adamant she will be able to return home. Pt state to call Kera Gray, her case checker. SW asked pt if Kera thinks she should go somewhere for rehab, will she go, pt still states no. Kera had called KELLY earlier, SW called Kera back([phone]). SW let her know pt will likely be discharged in the next couple of days, and that pt is not wanting to go to SNF. Kera did confirm pt did lose her aide due to not treating her well. Kera states if pt does go home can try [facility] to see if they can get her transport home. KELLY inquired if pt is getting her disability check now, Kera thinks she is getting it however may have missed an appt recently with Social Security. KELLY will continue to follow. CHRISTOS Ludwig
[2024-10-27 16:07] LABS: Bedside Glucose 47 mg/dL (74-106)
[2024-10-27 16:07] LABS: Bedside Glucose 45 mg/dL (74-106)
[2024-10-27 16:15] LABS: Bedside Glucose 129 mg/dL (74-106)
[2024-10-27] MEDS: Carvedilol 12.5 MG Tablet PO (18:03)
[2024-10-27] MEDS: Glucerna Shake 120 ML LIQUID PO (18:04)
--- NOTE | 2024-10-27 19:09 | EKG12_ITS ---
Test Reason : PRE OP Blood Pressure : */* mmHG Vent. Rate : 88 BPM Atrial Rate : 88 BPM P-R Int : 142 ms QRS Dur : 70 ms QT Int : 330 ms P-R-T Axes : 60 43 49 degrees QTcB Int : 399 ms Normal sinus rhythm Low voltage QRS Borderline ECG When compared with ECG of 14-May-2024 14:12, No significant change was found Confirmed by CATHERINE GAFFNEY, BRIA ([id number]), photo editor HARVEY RODRIGUEZ ([id number]) on 10/28/2024 8:31:58 AM Referred By: Confirmed By: BRIA ALEXANDER MD
[2024-10-27] MEDS: Metoprolol Tartrate 5 MG/5 ML Vial IV (20:22)
[2024-10-27] MEDS: Metoprolol Tartrate 50 MG Tablet PO (21:34)
[2024-10-27] MEDS: Atorvastatin Calcium 80 MG Tablet PO (23:16)
[2024-10-27] MEDS: Insulin Glargine-YFGN 100 UNIT/ML Pen 15 UNIT SC (23:18)
[2024-10-27 23:40] LABS: Bedside Glucose 140 mg/dL (74-106)
[2024-10-28] VITALS (21 sets, daily range): BP systolic 87–116; BP diastolic 37–60; PULSE 90–103; RESP 19–28; TEMP 36.6–37.7; O2SAT 93–100
[2024-10-28] MEDS: Albuterol 2.5 MG/3 ML VIAL.NEB. INHALATION ×2 (01:08→23:45)
[2024-10-28 03:14] LABS: Bedside Glucose 115 mg/dL (74-106)
[2024-10-28] MEDS: Nystatin Powder 15gm Bottle 1 APPLIC TOPICAL ×3 (06:36→21:59)
[2024-10-28] MEDS: Menthol/Lanolin/Calamine/Znox 113 GM Tube 1 APPLIC TOPICAL ×3 (06:36→21:58)
[2024-10-28 06:51] LABS: Bedside Glucose 64 mg/dL (74-106)
[2024-10-28 07:15] LABS: Bedside Glucose 72 mg/dL (74-106)
[2024-10-28 07:22] LABS: Absolute Lymphocyte Count 0.59 X10^3/uL (0.83-4.51); Absolute Neutrophil Count 8.9 X10^3/uL (2.0-7.7); Basophil# 0.03 X10^3/uL; Basophil% 0.3 % (0-1); Eosinophil# 0.01 X10^3/uL; Eosinophils% 0.1 % (0-5); Hemoglobin 9.6 g/dL (12.0-15.0); Lymphocyte # 0.59 X10^3/ul (0.83-4.51); Lymphocyte % 5.9 % (19-41); Mean Corpuscular Hgb 24.1 pg (27.0-32.0); Mean Corpuscular Volume 77.9 fL (81-99); Mean Platelet Vol. 9.5 fl (6.2-12.0); Monocyte# 0.38 X10^3/uL; Monocyte% 3.8 % (0-10); NRBC Flagged by Analyzer 0 % (0-5); Neutrophil # 8.89 X10^3/uL (2.7-7.7); Neutrophil % 89.4 % (47-70); POSITIVE DIFFERENTIAL YES; Platelet Count 162 K/mm3 (150-450); RBC Distribution Width CV 19.8 % (11.6-14.6); RBC Distribution Width SD 55.9 fl (35.1-43.9); Red Blood Count 3.98 M/mm3 (4.2-5.4)
--- NOTE | 2024-10-28 07:24 | PCM.PN.HOSP ---
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 Plan is to hold long-acting insulin. Repeat blood cultures ordered results pending Objective Data Objective Data Vital Signs: Vital Signs Temp Pulse Resp BP Pulse Ox O2 Del Method O2 Flow Rate 98.7 F 99 26 H 109/55 L 96 Nasal Cannula 2 10/28/24 07:00 10/28/24 07:00 10/28/24 07:00 10/28/24 07:00 10/28/24 07:00 10/28/24 07:00 10/28/24 07:00 Oxygen Flow Rate (L/min) 2 Oxygen Delivery Method Nasal Cannula Weight: 111.13 kg Body Mass Index (BMI) 39.5 Intake & Output: Intake and Output for Last 24 Hours 10/26/24 10/27/24 10/28/24 23:59 23:59 23:59 Intake Total 1580.00 / 1580.00 3177.3333 / 3177.3333 300 / 300 Output Total 500 / 500 Balance 1080.00 / 1080.00 3177.3333 / 3177.3333 300 / 300 Lab / Micro Data 10/28/24 06:10 10/28/24 06:10 Labs: Laboratory Results - last 24 hr 10/27/24 06:42: POC Glucose 45 L 10/27/24 06:48: WBC 11.7 H, RBC 3.97 L, Hgb 9.7 L, Hct 30.9 L, MCV 77.8 L, MCH 24.4 L, MCHC 31.4 L, RDW Std Deviation 54.2 H, RDW Coeff of Faby 19.4 H, Plt Count 164, MPV 9.1, Immature Gran % (Auto) 1.200 H, Neut % (Auto) 91.0 H, Lymph % (Auto) 4.3 L, [place] % (Auto) 3.1, Eos % (Auto) 0.1, Baso % (Auto) 0.3, Absolute Neuts (auto) 10.7 H, Absolute Lymphs (auto) 0.50 L, Nucleated RBC % 0, Differential Comment COMMENT, Sodium 137, Potassium 4.6, Chloride 109 H, Carbon Dioxide 17.3 L, Anion Gap 11, BUN 30 H, Creatinine 1.01, Estim Creat Clear Calc 66.42, Est GFR (MDRD) Non-Af 60, BUN/Creatinine Ratio 29.7 H, Glucose 47 L, Calcium 8.8 10/27/24 06:56: POC Glucose 47 L 10/27/24 07:21: POC Glucose 87 10/27/24 11:13: POC Glucose 150 H 10/27/24 15:58: POC Glucose 129 H 10/27/24 23:14: POC Glucose 140 H 10/28/24 02:55: POC Glucose 115 H 10/28/24 06:29: POC Glucose 64 L 10/28/24 06:57: POC Glucose 72 L Micro: Microbiology 10/25/24 06:00 Blood Culture (Wb) - Anticubital Right Bacteria Detection (PCR) - Final Staphylococcus epidermidis mecA Resistance Marker 10/25/24 06:00 Blood Culture (Wb) - Anticubital Right Blood Culture - Preliminary Gram positive organism 10/25/24 06:05 Blood Culture (Wb) - Anticubital Left Blood Culture - Preliminary Gram positive organism Physical Exam Narrative GENERAL: cooperative HEENT: Atraumatic; normocephalic EYES; Anicteric, Normal Conjunctiva NECK; supple, normal thyroid, RESPIRATORY: Diminished to auscultation CARDIOVASCULAR: Regular S1 S2, GI: Protuberant abdomen, incision site CDI : No Renal angle tenderness; EXTREMITIES: No edema, no clubbing, MUSCULOSKELETAL: no muscle wasting NEURO: Awake; no lateralizing signs. SKIN: No Rash PSYCH; Flat affect Assessment & Plan Assessment/Plan (1) Bacteremia: (2) Hypotension: (3) History of diabetes mellitus: (4) Ventral hernia: QUALIFIERS: Obstruction and gangrene presence: with obstruction but without gangrene Qualified Code(s): K43.6 - Other and unspecified ventral hernia with obstruction, without gangrene PLAN: Plan Patient is a 68-year-old lady with history of ventral hernia who presented with nausea vomiting. CT of the abdomen and pelvis obtained demonstrated small bowel loops with different air-fluid levels concerning for bowel obstruction. Patient was admitted to the surgical service. UnderwentRecurrent incisional hernia repair with mesh on 10/24/2024. Postoperative period complicated by hypoxia and hypoglycemia. 1. Acute intestinal obstruction secondary to incisional hernia ? Patient was admitted to the surgical service. UnderwentRecurrent incisional hernia repair with mesh on 10/24/2024. ?10/28/2024; patient pain relatively well-controlled 2. Bacteremia ? Initial blood cultures positive for staph epi possibly contaminant repeat blood cultures sent patient started on broad-spectrum antibiotic therapy pending results of repeat cultures ?10/28/2024; repeat cultures obtained on the result pending. Patient was seen in consultation by ID with recommendations reviewed 3. Diabetes mellitus type II -Patient stay complicated by hypoglycemia. Patient's oral hypoglycemics held. Patient was on long-acting insulin dose adjusted given recurrent hypoglycemia. Also placed on Accu-Cheks a.c. and at bedtime and covered with sliding scale insulin -10/28/2024 continues to experience low blood glucose held long-acting insulin 4. Class III obesity with BMI of 42 ? Complicating care weight loss advised 5. Essential hypertension ? Patient blood pressure has been running on the low side did continue with home meds with holding parameters 6. Paroxysmal atrial fibrillation ? Rate controlled patient was on apixaban which was held prior to surgery, Subsequently resumed following surgery 7. GERD -Continue PPI 8. Anemia ? Secondary to chronic disorder monitoring H&H and transfuse if patient becomes symptomatic or hemoglobin falls below 7 DVT prophylaxis ? On on apixaban 9. Hypophosphatemia ? Corrected per protocol, repeat labs ordered for 10. Hypomagnesemia ? Corrected per protocol, repeat labs ordered for a.m. 11. DVT prophylaxis ? On apixaban Time spent in the patient's overall evaluation, decision-making process, review of diagnostic data, adjustment of management, discussion with other providers, nursing and ancillary staff involved in patient's care documentation, 36 minutes Charges/Coding Visit Charges Inpatient E&M: 10251 Subs Hosp L2
[2024-10-28 07:30] LABS: Differential Indicated SCAN CRITERIA MET
[2024-10-28 08:01] LABS: Anion Gap 8 (5-15); BUN 28 mg/dL (4-19); BUN/Creat Ratio 27.3 RATIO (10-20); Calcium,Total 9.1 mg/dL (7.6-11.0); Carbon Dioxide 19.9 mmol/L (21.0-32.0); Chloride 109 mmol/L (98-108); Creatinine, Serum 1.03 mg/dL (0.70-1.20); EST Glomerular Filtration Rate 59 (>60); Estimated Creatinine Clearance 65.13 ml/min (50-250); Glucose 67 mg/dL (70-99); Magnesium 1.8 mg/dL (1.5-2.2); Phosphorus 2.1 mg/dL (2.7-4.5); Potassium 4.4 mmol/L (3.3-5.1); Sodium Level 138 mmol/L (133-145)
--- NOTE | 2024-10-28 09:31 | PN.SURG_ITS ---
Subjective Subjective Patient did have a small amount of drainage from incision overnight small amount on dressing. Objective Data Objective Data Vital Signs: Vital Signs Temp Pulse Resp BP Pulse Ox O2 Del Method O2 Flow Rate 98.6 F 98 21 H 102/46 L 94 Nasal Cannula 2 10/28/24 08:02 10/28/24 08:02 10/28/24 08:02 10/28/24 08:02 10/28/24 08:02 10/28/24 08:02 10/28/24 08:02 Oxygen Flow Rate (L/min) 2 Oxygen Delivery Method Nasal Cannula Weight: 244 lb 15.995 oz Body Mass Index (BMI) 39.5 Intake & Output: Intake and Output for Last 24 Hours 10/26/24 10/27/24 10/28/24 23:59 23:59 23:59 Intake Total 1580.00 / 1580.00 3177.3333 / 3177.3333 300 / 300 Output Total 500 / 500 Balance 1080.00 / 1080.00 3177.3333 / 3177.3333 300 / 300 Lab / Micro Data 10/28/24 06:10 10/28/24 17:00 Labs: Laboratory Results - last 24 hr 10/27/24 06:42: POC Glucose 45 L 10/27/24 06:56: POC Glucose 47 L 10/27/24 11:13: POC Glucose 150 H 10/27/24 15:58: POC Glucose 129 H 10/27/24 23:14: POC Glucose 140 H 10/28/24 02:55: POC Glucose 115 H 10/28/24 06:10: WBC 10.0, RBC 3.98 L, Hgb 9.6 L, Hct 31.0 L, MCV 77.9 L, MCH 24.1 L, MCHC 31.0 L, RDW Std Deviation 55.9 H, RDW Coeff of Faby 19.8 H, Plt Count 162, MPV 9.5, Immature Gran % (Auto) 0.500, Neut % (Auto) 89.4 H, Lymph % (Auto) 5.9 L, [place] % (Auto) 3.8, Eos % (Auto) 0.1, Baso % (Auto) 0.3, Absolute Neuts (auto) 8.9 H, Absolute Lymphs (auto) 0.59 L, Nucleated RBC % 0, Sodium 138, Potassium 4.4, Chloride 109 H, Carbon Dioxide 19.9 L, Anion Gap 8, BUN 28 H , Creatinine 1.03, Estim Creat Clear Calc 65.13, Est GFR (MDRD) Non-Af 59 L, B UN/Creatinine Ratio 27.3 H, Glucose 67 L, Calcium 9.1, Phosphorus 2.1 L, Magnesium 1.8 10/28/24 06:29: POC Glucose 64 L 10/28/24 06:57: POC Glucose 72 L Micro: Microbiology 10/26/24 12:42 Blood Culture (Wb) - Left Hand Blood Culture - Preliminary No growth in 48 hours. 10/26/24 11:55 Blood Culture (Wb) - Other Blood Culture - Preliminary No growth in 48 hours. 10/25/24 06:00 Blood Culture (Wb) - Anticubital Right Bacteria Detection (PCR) - Final Staphylococcus epidermidis mecA Resistance Marker 10/25/24 06:00 Blood Culture (Wb) - Anticubital Right Blood Culture - Final Gram positive organism 10/25/24 06:05 Blood Culture (Wb) - Anticubital Left Blood Culture - Final Staphylococcus epidermidis Physical Exam Const oriented x3 and no apparent distress GI soft to palpation GI Narrative: Incision dressed with Steri-Strips, small drop of slight samaniego fluid, wound was open inferiorly and seroma was drained. Culture was taken and sure it could be infected however patient would be at high risk and also has mesh in place Assessment & Plan Assessment/Plan (1) Ventral hernia: QUALIFIERS: Obstruction and gangrene presence: with obstruction but without gangrene Qualified Code(s): K43.6 - Other and unspecified ventral hernia with obstruction, without gangrene (2) Postoperative wound infection: PLAN: possible (3) Bacteremia: PLAN: Possible contaminant x 2, repeat blood cultures still pending/negative PLAN: Plan Patient did have a small amount of drainage from the wound overnight and is able to express a small amount of possible purulent material. Wound was opened culture was obtained and this was irrigated with about 500 cc of saline and packed with iodoform to keep the wound open. Patient does have mesh and would be at higher risk due to diabetes and morbid obesity for wound infection. Will start Vanco and clinda prophylactically. Will continue to monitor hopefully will not need excision of mesh. Repeat blood culture still pending?negative at 48 hours, initial showed Staph epidermidis?resistant to clindamycin, which were the preoperative antibiotics as patient is allergic to penicillin Addendum: Repeat irrigation with saline. Mostly just be a seroma will continue irrigating-3 times daily today may eventually closed wound with permanent sutures in the near future due to risk of infection with cavity and mesh. An Shah M.D. Pager: [phone] [facility] [address] [place] [address], [facility], [address] [place] [address] Office: [phone]
[2024-10-28] MEDS: APIXABAN 5 MG TABLET PO ×2 (09:57→21:59)
[2024-10-28] MEDS: Pantoprazole Sodium 20 MG Tablet PO (09:57)
[2024-10-28] MEDS: Carvedilol 12.5 MG Tablet PO (09:57)
[2024-10-28] MEDS: Glucerna Shake 120 ML LIQUID PO (09:59)
[2024-10-28] MEDS: oxyCODONE 5 MG Tablet PO (10:05)
[2024-10-28] MEDS: Acetaminophen 325 MG Tablet 650 MG PO (10:05)
[2024-10-28] MEDS: 0.9% Normal Saline (100mL Bag) 100 ML 15 ML IV ×2 (10:06→18:51)
[2024-10-28] MEDS: 0.9% Saline Lock 10 ML Syringe IV ×2 (10:06→23:20)
[2024-10-28] MEDS: Vancomycin HCl 2,000 MG in 0.9% Normal Saline (500mL Bag) 500 ML 250 MG IV (10:07)
[2024-10-28] MEDS: Clindamycin 600 MG/50 ML BAG 100 MG IV ×4 (10:08→23:19)
--- NOTE | 2024-10-28 11:13 | PCM.RX.CS ---
Consult Antibiotic Management Pharmacy has been consulted to manage selected antibiotic: Vancomycin Type of Intervention Type of Consult: New start Suspected Infection Suspected Infection: Skin/Soft tissue (POST-SURGICAL INFECTION) Prior Doses of Antibiotics Prior Doses of Antibiotics Received/Current Regimen: Vancomycin 2000 mg IV x 1 given 10/28/24 @ 1007 Labs Labs: Sodium 138 mmol/L (133-145) 10/28/24 06:10 Potassium 4.4 mmol/L (3.3-5.1) 10/28/24 06:10 Chloride 109 mmol/L (98-108) H 10/28/24 06:10 Carbon Dioxide 19.9 mmol/L (21.0-32.0) L 10/28/24 06:10 Anion Gap 8 (5-15) 10/28/24 06:10 BUN 28 mg/dL (4-19) H 10/28/24 06:10 Creatinine 1.03 mg/dL (0.70-1.20) 10/28/24 06:10 Est GFR (MDRD) Non-Af 59 (>60) L 10/28/24 06:10 BUN/Creatinine Ratio 27.3 RATIO (10-20) H 10/28/24 06:10 Glucose 67 mg/dL (70-99) L 10/28/24 06:10 Microbiology Microbiology: Microbiology 10/25/24 06:05 Blood Culture (Wb) - Anticubital Left Blood Culture - Final Staphylococcus epidermidis 10/26/24 12:42 Blood Culture (Wb) - Left Hand Blood Culture - Preliminary No growth in 48 hours. 10/26/24 11:55 Blood Culture (Wb) - Other Blood Culture - Preliminary No growth in 48 hours. 10/25/24 06:00 Blood Culture (Wb) - Anticubital Right Bacteria Detection (PCR) - Final Staphylococcus epidermidis mecA Resistance Marker 10/25/24 06:00 Blood Culture (Wb) - Anticubital Right Blood Culture - Final Gram positive organism Dosing Weight Weight used for dosin kg Estimated Creatinine Clearance Estimated Creatinine Clearance: ~ 65 Goal Trough Goal Trough: 15-20 mcg/mL Pharmacy Plan for Drug Dosing Pharmacy Plan for Drug Dosing: Vancomycin 2000 mg IV x 1 followed by 1500 mg Q12H Pharmacy Service will continue to monitor and adjust dosing as required. Follow-Up Labs Follow-Up Labs: Trough: Vancomycin Date/Time Labs Ordered Labs to be done on [date and time ordered]: 10/29/24 @ 5255
[2024-10-28 12:23] LABS: Bedside Glucose 77 mg/dL (74-106)
--- NOTE | 2024-10-28 12:47 | PCM.PN.ID ---
ID ID: Route of nutrition/ use of supplements: [] Nutritional Intake: [] IV Site: [] Koo Catheter: [] Patient is alert overall clinically stable. No further fevers. Surgical progress note reviewed. Patient denies any cardiopulmonary distress. Microbiology data also reviewed Alert and responsive does not appear toxic. Abdomen obese but soft. Surgical incision no erythema there is 1 area where there is packing. Assessment & Plan Assessment/Plan (1) Bacteremia: PLAN: Coagulase-negative Staphylococcus from the blood culture which I suspect is a contaminant in this clinical setting.
[2024-10-28 17:02] LABS: Bedside Glucose 32 mg/dL (74-106)
[2024-10-28 18:28] LABS: Glucose 43 mg/dL (70-99)
[2024-10-28 18:52] LABS: Bedside Glucose 81 mg/dL (74-106)
--- NOTE | 2024-10-28 19:17 | NURSING ---
aware of blood glucose levels; 32,43, and 81. No new orders.
[2024-10-28] MEDS: Vancomycin HCl 1,500 MG in 0.9% Normal Saline (500mL Bag) 500 ML 250 MG IV (21:58)
[2024-10-28] MEDS: Atorvastatin Calcium 80 MG Tablet PO (21:59)
[2024-10-28 23:50] LABS: Bedside Glucose 128 mg/dL (74-106)
--- NOTE | 2024-10-28 23:55 | NURSING ---
pt incontinent of urine (purewick moved) & stool, refusing to turn staff explained need to change and clean pt, allowed staff to complete pericare, change attends and purewick. pt required max 2 assist to turn in bed.
[2024-10-29] VITALS (8 sets, daily range): BP systolic 120–142; BP diastolic 53–99; PULSE 66–130; RESP 20–26; TEMP 36.6–37.2; O2SAT 2–97
[2024-10-29] MEDS: Nystatin Powder 15gm Bottle 1 APPLIC TOPICAL ×3 (05:22→21:36)
[2024-10-29] MEDS: Menthol/Lanolin/Calamine/Znox 113 GM Tube 1 APPLIC TOPICAL ×3 (05:22→22:00)
[2024-10-29] MEDS: Clindamycin 600 MG/50 ML BAG 100 MG IV (05:22)
[2024-10-29] MEDS: Acetaminophen 325 MG Tablet 650 MG PO ×2 (05:23→21:28)
[2024-10-29 06:45] LABS: Bedside Glucose 99 mg/dL (74-106)
[2024-10-29 07:02] LABS: Absolute Lymphocyte Count 0.46 X10^3/uL (0.83-4.51); Absolute Neutrophil Count 6.7 X10^3/uL (2.0-7.7); Basophil# 0.03 X10^3/uL; Basophil% 0.4 % (0-1); Eosinophil# 0.03 X10^3/uL; Eosinophils% 0.4 % (0-5); Hematocrit 31.8 % (37-47); Hemoglobin 9.8 g/dL (12.0-15.0); Lymphocyte # 0.46 X10^3/ul (0.83-4.51); Lymphocyte % 5.8 % (19-41); Mean Corp Hgb Conc 30.8 g/dL (32-36); Mean Corpuscular Hgb 24.2 pg (27.0-32.0); Mean Corpuscular Volume 78.5 fL (81-99); Monocyte% 7.6 % (0-10); NRBC Flagged by Analyzer 0 % (0-5); Neutrophil # 6.73 X10^3/uL (2.7-7.7); Neutrophil % 84.8 % (47-70); POSITIVE DIFFERENTIAL YES; POSITIVE MORPHOLOGY YES; Platelet Count 159 K/mm3 (150-450); RBC Distribution Width CV 20.3 % (11.6-14.6); RBC Distribution Width SD 58.3 fl (35.1-43.9); Red Blood Count 4.05 M/mm3 (4.2-5.4); White Blood Count 7.9 K/mm3 (4.4-11.0)
--- NOTE | 2024-10-29 07:19 | PN.HOSP_ITS ---
Reason for Visit Reason for Visit: Diagnoses Other acute postprocedural pain (10/23/24) Essential (primary) hypertension (10/23/24) Unspecified atrial fibrillation (10/23/24) Hypotension, unspecified (10/23/24) Incisional hernia with obstruction, without gangrene (10/23/24) Incisional hernia without obstruction or gangrene (10/23/24) Other and unspecified ventral hernia with obstruction, without gangrene (10/23/24) Ventral hernia without obstruction or gangrene (10/23/24) Dyspnea, unspecified (10/23/24) Bacteremia (10/23/24) Infection following a procedure, other surgical site, initial encounter (10/23/24) 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 The wound was irrigated cultures sent. Patient subsequently started on antibiotic therapy. Patient continues to experience hypoglycemic episode discontinued patient long-acting insulin left only on Accu-Cheks before meals and at bedtime with sliding scale coverage Objective Data Objective Data Vital Signs: Vital Signs Temp Pulse Resp BP Pulse Ox O2 Del Method O2 Flow Rate 99 F 107 H 20 H 142/92 H 94 Nasal Cannula 2 10/29/24 03:59 10/29/24 03:59 10/29/24 03:59 10/29/24 03:59 10/29/24 03:59 10/29/24 04:01 10/29/24 03:59 Oxygen Flow Rate (L/min) 2 Oxygen Delivery Method Nasal Cannula Weight: 111.13 kg Body Mass Index (BMI) 39.5 Intake & Output: Intake and Output for Last 24 Hours 10/27/24 10/28/24 10/29/24 23:59 23:59 23:59 Intake Total 3177.3333 / 3177.3333 1705.50 / 1705.50 580 / 580 Output Total 200 / 200 700 / 700 Balance 3177.3333 / 3177.3333 1505.50 / 1505.50 -120 / -120 Lab / Micro Data 10/29/24 06:34 10/29/24 06:34 Labs: Laboratory Results - last 24 hr 10/28/24 06:10: WBC 10.0, RBC 3.98 L, Hgb 9.6 L, Hct 31.0 L, MCV 77.9 L, MCH 24.1 L, MCHC 31.0 L, RDW Std Deviation 55.9 H, RDW Coeff of Faby 19.8 H, Plt Count 162, MPV 9.5, Immature Gran % (Auto) 0.500, Neut % (Auto) 89.4 H, Lymph % (Auto) 5.9 L, [place] % (Auto) 3.8, Eos % (Auto) 0.1, Baso % (Auto) 0.3, Absolute Neuts (auto) 8.9 H, Absolute Lymphs (auto) 0.59 L, Nucleated RBC % 0, Sodium 138, Potassium 4.4, Chloride 109 H, Carbon Dioxide 19.9 L, Anion Gap 8, BUN 28 H , Creatinine 1.03, Estim Creat Clear Calc 65.13, Est GFR (MDRD) Non-Af 59 L, B UN/Creatinine Ratio 27.3 H, Glucose 67 L, Calcium 9.1, Phosphorus 2.1 L, Magnesium 1.8 10/28/24 12:02: POC Glucose 77 10/28/24 16:42: POC Glucose 32 L* 10/28/24 17:00: Glucose 43 L* 10/28/24 18:34: POC Glucose 81 10/28/24 23:09: POC Glucose 128 H 10/29/24 06:27: POC Glucose 99 Micro: Microbiology 10/28/24 09:05 Wound Abcess - Abdominal Gram Stain - Preliminary 10/25/24 06:05 Blood Culture (Wb) - Anticubital Left Blood Culture - Final Staphylococcus epidermidis 10/26/24 12:42 Blood Culture (Wb) - Left Hand Blood Culture - Preliminary No growth in 48 hours. 10/26/24 11:55 Blood Culture (Wb) - Other Blood Culture - Preliminary No growth in 48 hours. 10/25/24 06:00 Blood Culture (Wb) - Anticubital Right Bacteria Detection (PCR) - Final Staphylococcus epidermidis mecA Resistance Marker 10/25/24 06:00 Blood Culture (Wb) - Anticubital Right Blood Culture - Final Gram positive organism Physical Exam Narrative GENERAL: cooperative HEENT: Atraumatic; normocephalic EYES; Anicteric, Normal Conjunctiva NECK; supple, normal thyroid, RESPIRATORY: Diminished to auscultation CARDIOVASCULAR: Regular S1 S2, GI: Protuberant abdomen, incision site CDI : No Renal angle tenderness; EXTREMITIES: No edema, no clubbing, MUSCULOSKELETAL: no muscle wasting NEURO: Awake; no lateralizing signs. SKIN: No Rash PSYCH; Flat affect Assessment & Plan Assessment/Plan (1) Bacteremia: (2) Hypotension: (3) History of diabetes mellitus: (4) Ventral hernia: QUALIFIERS: Obstruction and gangrene presence: with obstruction but without gangrene Qualified Code(s): K43.6 - Other and unspecified ventral hernia with obstruction, without gangrene PLAN: Plan Patient is a 68-year-old lady with history of ventral hernia who presented with nausea vomiting. CT of the abdomen and pelvis obtained demonstrated small bowel loops with different air-fluid levels concerning for bowel obstruction. Patient was admitted to the surgical service. UnderwentRecurrent incisional hernia repair with mesh on 10/24/2024. Postoperative period complicated by hypoxia and hypoglycemia. 1. Acute intestinal obstruction secondary to incisional hernia ? Patient was admitted to the surgical service. UnderwentRecurrent incisional hernia repair with mesh on 10/24/2024. ?10/28/2024; patient pain relatively well-controlled ? 10/29/2024;Patient was noted by general surgery to have some purulent material from her incision. The wound was irrigated cultures sent. Patient subsequently started on antibiotic therapy 2. Bacteremia ? Initial blood cultures positive for staph epi possibly contaminant repeat blood cultures sent patient started on broad-spectrum antibiotic therapy pending results of repeat cultures ?10/28/2024; repeat cultures obtained on the result pending. Patient was seen in consultation by ID with recommendations reviewed 3. Diabetes mellitus type II -Patient stay complicated by hypoglycemia. Patient's oral hypoglycemics held. Patient was on long-acting insulin dose adjusted given recurrent hypoglycemia. Also placed on Accu-Cheks a.c. and at bedtime and covered with sliding scale insulin -10/28/2024 continues to experience low blood glucose held long-acting insulin ? 10/29/2024Patient continues to experience hypoglycemic episode discontinued patient long-acting insulin left only on Accu-Cheks before meals and at bedtime with sliding scale coverage 4. Class III obesity with BMI of 42 ? Complicating care weight loss advised 5. Essential hypertension ? Patient blood pressure has been running on the low side did continue with home meds with holding parameters 6. Paroxysmal atrial fibrillation ? Rate controlled patient was on apixaban which was held prior to surgery, Subsequently resumed following surgery 7. GERD -Continue PPI 8. Anemia ? Secondary to chronic disorder monitoring H&H and transfuse if patient becomes symptomatic or hemoglobin falls below 7 DVT prophylaxis ? On on apixaban 9. Hypophosphatemia ? Corrected per protocol, repeat labs ordered for 10. Hypomagnesemia ? Corrected per protocol, repeat labs ordered for a.m. 11. DVT prophylaxis ? On apixaban Time spent in the patient's overall evaluation, decision-making process, review of diagnostic data, adjustment of management, discussion with other providers, nursing and ancillary staff involved in patient's care documentation, 38 minutes Charges/Coding Visit Charges Inpatient E&M: 43784 Subs Hosp L2
[2024-10-29 07:30] LABS: Anion Gap 8 (5-15); BUN 28 mg/dL (4-19); BUN/Creat Ratio 25.6 RATIO (10-20); Calcium,Total 9.1 mg/dL (7.6-11.0); Carbon Dioxide 18.8 mmol/L (21.0-32.0); Chloride 111 mmol/L (98-108); Creatinine, Serum 1.11 mg/dL (0.70-1.20); EST Glomerular Filtration Rate 54 (>60); Estimated Creatinine Clearance 60.43 ml/min (50-250); Glucose 95 mg/dL (70-99); Potassium 4.5 mmol/L (3.3-5.1); Sodium Level 137 mmol/L (133-145)
[2024-10-29 07:34] LABS: Differential Indicated SCAN CRITERIA MET
[2024-10-29] MEDS: Carvedilol 12.5 MG Tablet PO ×2 (08:23→17:01)
[2024-10-29] MEDS: Glucerna Shake 120 ML LIQUID PO ×3 (08:35→17:01)
--- NOTE | 2024-10-29 09:14 | PCM.PN.SRG ---
Subjective Subjective Patient currently eating breakfast, states abdominal pain improved. Patient's second blood cultures are negative at 48 hours?prelim, wound culture Gram stain showed rare gram-positive cocci, prelim aerobic no growth Objective Data Objective Data Vital Signs: Vital Signs Temp Pulse Resp BP Pulse Ox O2 Del Method O2 Flow Rate 98 F 66 24 H 120/53 L 96 Nasal Cannula 2 10/29/24 07:51 10/29/24 07:51 10/29/24 07:51 10/29/24 07:51 10/29/24 07:51 10/29/24 07:51 10/29/24 07:51 Oxygen Flow Rate (L/min) 2 Oxygen Delivery Method Nasal Cannula Weight: 244 lb 15.995 oz Body Mass Index (BMI) 39.5 Intake & Output: Intake and Output for Last 24 Hours 10/27/24 10/28/24 10/29/24 23:59 23:59 23:59 Intake Total 3177.3333 / 3177.3333 1705.50 / 1705.50 580 / 580 Output Total 200 / 200 700 / 700 Balance 3177.3333 / 3177.3333 1505.50 / 1505.50 -120 / -120 Lab / Micro Data 10/29/24 06:34 10/29/24 06:34 Labs: Laboratory Results - last 24 hr 10/28/24 12:02: POC Glucose 77 10/28/24 16:42: POC Glucose 32 L* 10/28/24 17:00: Glucose 43 L* 10/28/24 18:34: POC Glucose 81 10/28/24 23:09: POC Glucose 128 H 10/29/24 06:27: POC Glucose 99 10/29/24 06:34: WBC 7.9, RBC 4.05 L, Hgb 9.8 L, Hct 31.8 L, MCV 78.5 L, MCH 24.2 L, MCHC 30.8 L, RDW Std Deviation 58.3 H, RDW Coeff of Faby 20.3 H, Plt Count 159, MPV 9.0, Immature Gran % (Auto) 1.000 H, Neut % (Auto) 84.8 H, Lymph % (Auto) 5.8 L, [place] % (Auto) 7.6, Eos % (Auto) 0.4, Baso % (Auto) 0.4, Absolute Neuts (auto) 6.7, Absolute Lymphs (auto) 0.46 L, Nucleated RBC % 0, Sodium 137, Potassium 4.5, Chloride 111 H, Carbon Dioxide 18.8 L, Anion Gap 8, BUN 28 H, Creatinine 1.11, Estim Creat Clear Calc 60.43, Est GFR (MDRD) Non-Af 54 L, BUN/Creatinine Ratio 25.6 H, Glucose 95, Calcium 9.1 Micro: Microbiology 10/28/24 09:05 Wound Abcess - Abdominal Gram Stain - Preliminary 10/25/24 06:05 Blood Culture (Wb) - Anticubital Left Blood Culture - Final Staphylococcus epidermidis 10/26/24 12:42 Blood Culture (Wb) - Left Hand Blood Culture - Preliminary No growth in 48 hours. 10/26/24 11:55 Blood Culture (Wb) - Other Blood Culture - Preliminary No growth in 48 hours. 10/25/24 06:00 Blood Culture (Wb) - Anticubital Right Bacteria Detection (PCR) - Final Staphylococcus epidermidis mecA Resistance Marker 10/25/24 06:00 Blood Culture (Wb) - Anticubital Right Blood Culture - Final Gram positive organism Physical Exam Const oriented x3 and no apparent distress GI soft to palpation GI Narrative: Incision open inferiorly and packed with half-inch iodoform, dressing wet with mostly serous fluid. This was irrigated with saline and packing was replaced. Assessment & Plan Assessment/Plan (1) Ventral hernia: QUALIFIERS: Obstruction and gangrene presence: with obstruction but without gangrene Qualified Code(s): K43.6 - Other and unspecified ventral hernia with obstruction, without gangrene (2) Postoperative wound infection: PLAN: possible (3) Bacteremia: PLAN: Possible contaminant x 2, repeat blood cultures still pending/negative PLAN: Plan Patient's wound irrigated with saline mostly serous, culture showed gram-positive cocci rare?prelim aerobic no growth?patient will likely need placement as she will not be able to handle wound care as her previous aide is no longer there. Ordered PT OT Will stop clinda continue vancomycin Appreciate medicine's assistance with medical management. An Shah M.D. Pager: [phone] [facility] [address] [place] [address], [facility], [address] [place] [id number] Office: [phone]
[2024-10-29 09:32] LABS: Anisocytosis 1+
[2024-10-29 09:33] LABS: Platelet Estimate ADEQUATE (ADEQ)
[2024-10-29] MEDS: APIXABAN 5 MG TABLET PO ×2 (10:09→21:28)
[2024-10-29] MEDS: Pantoprazole Sodium 20 MG Tablet PO (10:09)
[2024-10-29] MEDS: 0.9% Saline Lock 10 ML Syringe IV (10:12)
[2024-10-29] MEDS: Vancomycin HCl 1,500 MG in 0.9% Normal Saline (500mL Bag) 500 ML 250 MG IV (10:27)
[2024-10-29 11:43] LABS: Bedside Glucose 161 mg/dL (74-106)
--- NOTE | 2024-10-29 11:58 | NURSING ---
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
[2024-10-29] MEDS: Insulin Lispro 100 UNIT/ML INSULN.PEN SC (12:04)
--- NOTE | 2024-10-29 12:38 | PCM.PN.ID ---
ID ID: Route of nutrition/ use of supplements: [] Nutritional Intake: [] IV Site: [] Koo Catheter: [] Patient is alert overall clinically stable. In good spirits. No fevers. Currently on parenteral vancomycin. Microbiology data reviewed. Alert responsive does not appear toxic card exam S1-S2 abdomen is obese soft nontender surgical incision there is no significant erythema. There is a small area that is packed. Assessment & Plan Assessment/Plan (1) Bacteremia: PLAN: Suspect that the Staphylococcus epidermidis is a skin pathogen.
[2024-10-29] MEDS: Albuterol 2.5 MG/3 ML VIAL.NEB. INHALATION (12:50)
--- NOTE | 2024-10-29 13:20 | WOUNDNOTE ---
Incision to the right abdomen irrigated with approx 500 cc's NS. expressed the fluid out. there was some slightly milky samaniego drainage out. no odor noted. placed 1/2 nugauze to keep area open to allow drainage. covered with dry dressings. pt tolerated well. wound to be irrigated TID. Dr Malik had irrigated this am. will continue to follow.
--- NOTE | 2024-10-29 13:44 | NURSING ---
All documentation by occupational health nursing director Sally Ramires reviewed by assistant professor of nursing Yudelka Wood BSN, RN.
[2024-10-29] MEDS: traMADol 50 MG Tablet PO (14:28)
--- NOTE | 2024-10-29 16:05 | NURSING ---
All documentation by certified nursing assistant Dominique Ornelas reviewed by nursing program coordinator Yudelka LÓPEZ, RN.
[2024-10-29 16:40] LABS: Bedside Glucose 100 mg/dL (74-106)
[2024-10-29] MEDS: Atorvastatin Calcium 80 MG Tablet PO (21:28)
[2024-10-29 22:06] LABS: Bedside Glucose 134 mg/dL (74-106)
--- NOTE | 2024-10-29 22:06 | PCM.RX.CS ---
Consult Antibiotic Management Pharmacy has been consulted to manage selected antibiotic: Vancomycin Type of Intervention Type of Consult: Follow-up Labs Labs: Sodium 137 mmol/L (133-145) 10/29/24 06:34 Potassium 4.5 mmol/L (3.3-5.1) 10/29/24 06:34 Chloride 111 mmol/L (98-108) H 10/29/24 06:34 Carbon Dioxide 18.8 mmol/L (21.0-32.0) L 10/29/24 06:34 Anion Gap 8 (5-15) 10/29/24 06:34 BUN 28 mg/dL (4-19) H 10/29/24 06:34 Creatinine 1.11 mg/dL (0.70-1.20) 10/29/24 06:34 Est GFR (MDRD) Non-Af 54 (>60) L 10/29/24 06:34 BUN/Creatinine Ratio 25.6 RATIO (10-20) H 10/29/24 06:34 Glucose 95 mg/dL (70-99) 10/29/24 06:34 Vancomycin Trough 33.0 ug/mL (5.0-15.0) H 10/29/24 21:13 Microbiology Microbiology: Microbiology 10/28/24 09:05 Wound Abcess - Abdominal Gram Stain - Final 10/25/24 06:05 Blood Culture (Wb) - Anticubital Left Blood Culture - Final Staphylococcus epidermidis 10/26/24 12:42 Blood Culture (Wb) - Left Hand Blood Culture - Preliminary No growth in 48 hours. 10/26/24 11:55 Blood Culture (Wb) - Other Blood Culture - Preliminary No growth in 48 hours. 10/25/24 06:00 Blood Culture (Wb) - Anticubital Right Bacteria Detection (PCR) - Final Staphylococcus epidermidis mecA Resistance Marker 10/25/24 06:00 Blood Culture (Wb) - Anticubital Right Blood Culture - Final Gram positive organism Goal Trough Goal Trough: 15-20 mcg/mL Pharmacy Plan for Drug Dosing Pharmacy Plan for Drug Dosing: Pharmacy Service will continue to monitor and adjust dosing as required. TROUGH 33 @ 10 3/4 HOURS. HOLD DOSE AND DRAW RANDOM LEVEL IN 18 HOURS Follow-Up Labs Follow-Up Labs: Trough: Vancomycin Date/Time Labs Ordered Labs to be done on [date and time ordered]: 10/30 @ 1500
[2024-10-30] VITALS (12 sets, daily range): BP systolic 123–141; BP diastolic 55–62; PULSE 90–97; RESP 20–24; TEMP 36.4–37.1; O2SAT 74–99
[2024-10-30] MEDS: Nystatin Powder 15gm Bottle 1 APPLIC TOPICAL ×3 (05:56→21:45)
[2024-10-30] MEDS: Menthol/Lanolin/Calamine/Znox 113 GM Tube 1 APPLIC TOPICAL ×3 (06:04→21:45)
[2024-10-30] MEDS: 0.9% Saline Lock 10 ML Syringe IV ×4 (06:04→16:59)
[2024-10-30 06:46] LABS: Bedside Glucose 88 mg/dL (74-106)
[2024-10-30 08:02] LABS: Absolute Lymphocyte Count 0.55 X10^3/uL (0.83-4.51); Absolute Neutrophil Count 6.8 X10^3/uL (2.0-7.7); Basophil# 0.03 X10^3/uL; Basophil% 0.4 % (0-1); Eosinophil# 0.08 X10^3/uL; Hematocrit 38.6 % (37-47); Hemoglobin 11.8 g/dL (12.0-15.0); Lymphocyte # 0.55 X10^3/ul (0.83-4.51); Lymphocyte % 6.7 % (19-41); Mean Corp Hgb Conc 30.6 g/dL (32-36); Mean Corpuscular Hgb 23.9 pg (27.0-32.0); Mean Corpuscular Volume 78.3 fL (81-99); Mean Platelet Vol. 9.3 fl (6.2-12.0); Monocyte# 0.55 X10^3/uL; Monocyte% 6.7 % (0-10); NRBC Flagged by Analyzer 0 % (0-5); Neutrophil # 6.83 X10^3/uL (2.7-7.7); Neutrophil % 83.6 % (47-70); POSITIVE DIFFERENTIAL YES; POSITIVE MORPHOLOGY YES; Platelet Count 189 K/mm3 (150-450); RBC Distribution Width CV 20.9 % (11.6-14.6); RBC Distribution Width SD 58.9 fl (35.1-43.9); Red Blood Count 4.93 M/mm3 (4.2-5.4); White Blood Count 8.2 K/mm3 (4.4-11.0)
[2024-10-30 08:52] LABS: Anion Gap 8 (5-15); BUN 27 mg/dL (4-19); BUN/Creat Ratio 22.8 RATIO (10-20); Carbon Dioxide 23.6 mmol/L (21.0-32.0); Chloride 108 mmol/L (98-108); EST Glomerular Filtration Rate 49 (>60); Glucose 88 mg/dL (70-99); Sodium Level 140 mmol/L (133-145)
[2024-10-30 08:53] LABS: Differential Indicated SCAN CRITERIA MET
[2024-10-30 09:10] LABS: Platelet Estimate ADEQUATE (ADEQ)
--- NOTE | 2024-10-30 09:10 | PN.HOSP_ITS ---
Reason for Visit Reason for Visit: Diagnoses Other acute postprocedural pain (10/23/24) Essential (primary) hypertension (10/23/24) Unspecified atrial fibrillation (10/23/24) Hypotension, unspecified (10/23/24) Incisional hernia with obstruction, without gangrene (10/23/24) Incisional hernia without obstruction or gangrene (10/23/24) Other and unspecified ventral hernia with obstruction, without gangrene (10/23/24) Ventral hernia without obstruction or gangrene (10/23/24) Dyspnea, unspecified (10/23/24) Bacteremia (10/23/24) Infection following a procedure, other surgical site, initial encounter (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 Ordered checks x-ray as well as proBNP. Wound cultures obtained from patient's wound so far negative to date. Objective Data Objective Data Vital Signs: Vital Signs Temp Pulse Resp BP Pulse Ox O2 Del Method O2 Flow Rate 98.2 F 97 24 H 140/62 H 94 Nasal Cannula 3.5 10/30/24 09:06 10/30/24 09:06 10/30/24 09:06 10/30/24 09:06 10/30/24 09:06 10/30/24 09:06 10/30/24 09:06 Oxygen Flow Rate (L/min) 3.5 Oxygen Delivery Method Nasal Cannula Weight: 111.13 kg Body Mass Index (BMI) 39.5 Intake & Output: Intake and Output for Last 24 Hours 10/28/24 10/29/24 10/30/24 23:59 23:59 23:59 Intake Total 1705.50 / 1705.50 849.08 / 849.08 150 / 150 Output Total 200 / 200 1000 / 1800 1300 / 1300 Balance 1505.50 / 1505.50 -150.92 / -950.92 -1150 / -1150 Lab / Micro Data 10/30/24 07:31 10/30/24 07:31 Labs: Laboratory Results - last 24 hr 10/29/24 06:34: Platelet Estimate ADEQUATE, Anisocytosis 1+ 10/29/24 11:26: POC Glucose 161 H 10/29/24 16:23: POC Glucose 100 10/29/24 21:13: Vancomycin Trough 33.0 H 10/29/24 21:34: POC Glucose 134 H 10/30/24 06:02: POC Glucose 88 10/30/24 07:31: WBC 8.2, RBC 4.93, Hgb 11.8 L, Hct 38.6, MCV 78.3 L, MCH 23.9 L, MCHC 30.6 L, RDW Std Deviation 58.9 H, RDW Coeff of Faby 20.9 H, Plt Count 189, MPV 9.3, Immature Gran % (Auto) 1.600 H, Neut % (Auto) 83.6 H, Lymph % (Auto) 6.7 L, [place] % (Auto) 6.7, Eos % (Auto) 1.0, Baso % (Auto) 0.4, Absolute Neuts (auto) 6.8, Absolute Lymphs (auto) 0.55 L, Nucleated RBC % 0, Sodium 140, Potassium 5.0, Chloride 108, Carbon Dioxide 23.6, Anion Gap 8, BUN 27 H, Creatinine 1.20, Estim Creat Clear Calc 55.90, Est GFR (MDRD) Non-Af 49 L, B UN/Creatinine Ratio 22.8 H, Glucose 88, Calcium 10.0 Micro: Microbiology 10/28/24 09:05 Wound Abcess - Abdominal Gram Stain - Final 10/25/24 06:05 Blood Culture (Wb) - Anticubital Left Blood Culture - Final Staphylococcus epidermidis 10/26/24 12:42 Blood Culture (Wb) - Left Hand Blood Culture - Preliminary No growth in 48 hours. 10/26/24 11:55 Blood Culture (Wb) - Other Blood Culture - Preliminary No growth in 48 hours. 10/25/24 06:00 Blood Culture (Wb) - Anticubital Right Bacteria Detection (PCR) - Final Staphylococcus epidermidis mecA Resistance Marker 10/25/24 06:00 Blood Culture (Wb) - Anticubital Right Blood Culture - Final Gram positive organism Physical Exam Narrative GENERAL: cooperative on supplemental oxygen HEENT: Atraumatic; normocephalic EYES; Anicteric, Normal Conjunctiva NECK; supple, normal thyroid, RESPIRATORY: Diminished to auscultation CARDIOVASCULAR: Regular S1 S2, GI: Protuberant abdomen, incision site CDI : No Renal angle tenderness; EXTREMITIES: No edema, no clubbing, MUSCULOSKELETAL: no muscle wasting NEURO: Awake; no lateralizing signs. SKIN: No Rash PSYCH; Flat affect Assessment & Plan Assessment/Plan (1) Bacteremia: (2) Hypotension: (3) History of diabetes mellitus: (4) Ventral hernia: QUALIFIERS: Obstruction and gangrene presence: with obstruction but without gangrene Qualified Code(s): K43.6 - Other and unspecified ventral hernia with obstruction, without gangrene PLAN: Plan Patient is a 68-year-old lady with history of ventral hernia who presented with nausea vomiting. CT of the abdomen and pelvis obtained demonstrated small bowel loops with different air-fluid levels concerning for bowel obstruction. Patient was admitted to the surgical service. UnderwentRecurrent incisional hernia repair with mesh on 10/24/2024. Postoperative period complicated by hypoxia and hypoglycemia. 1. Acute intestinal obstruction secondary to incisional hernia ? Patient was admitted to the surgical service. UnderwentRecurrent incisional hernia repair with mesh on 10/24/2024. ?10/28/2024; patient pain relatively well-controlled ? 10/29/2024;Patient was noted by general surgery to have some purulent material from her incision. The wound was irrigated cultures sent. Patient subsequently started on antibiotic therapy 2. Bacteremia ? Initial blood cultures positive for staph epi possibly contaminant repeat blood cultures sent patient started on broad-spectrum antibiotic therapy pending results of repeat cultures ?10/28/2024; repeat cultures obtained on the result pending. Patient was seen in consultation by ID with recommendations reviewed 3. Diabetes mellitus type II -Patient stay complicated by hypoglycemia. Patient's oral hypoglycemics held. Patient was on long-acting insulin dose adjusted given recurrent hypoglycemia. Also placed on Accu-Cheks a.c. and at bedtime and covered with sliding scale insulin -10/28/2024 continues to experience low blood glucose held long-acting insulin ? 10/29/2024Patient continues to experience hypoglycemic episode discontinued patient long-acting insulin left only on Accu-Cheks before meals and at bedtime with sliding scale coverage 4. Class III obesity with BMI of 42 ? Complicating care weight loss advised 5. Essential hypertension ? Patient blood pressure has been running on the low side did continue with home meds with holding parameters 6. Paroxysmal atrial fibrillation ? Rate controlled patient was on apixaban which was held prior to surgery, Subsequently resumed following surgery 7. GERD -Continue PPI 8. Anemia ? Secondary to chronic disorder monitoring H&H and transfuse if patient becomes symptomatic or hemoglobin falls below 7 DVT prophylaxis ? On on apixaban 9. Hypophosphatemia ? Corrected per protocol, repeat labs ordered for 10. Hypomagnesemia ? Corrected per protocol, repeat labs ordered for a.m. 11. DVT prophylaxis ? On apixaban 12. Acute hypoxia ? Ordered chest x-ray, proBNP placed on supplemental oxygen titrated to keep saturation greater than 90 Time spent in the patient's overall evaluation, decision-making process, review of diagnostic data, adjustment of management, discussion with other providers, nursing and ancillary staff involved in patient's care documentation, 36 minutes Charges/Coding Visit Charges Inpatient E&M: 76726 Subs Hosp L2
[2024-10-30 09:11] LABS: Anisocytosis 1+; Polychromasia 1+
[2024-10-30] MEDS: Carvedilol 12.5 MG Tablet PO ×2 (09:18→16:47)
--- NOTE | 2024-10-30 09:30 | RAD_ITS ---
PROCEDURE: CHEST PA AND LATERAL 10/30/2024 REASON FOR EXAM: HYPOXIA TECHNIQUE: Frontal and lateral views of the chest. COMPARISON: Comparison is made with prior study dated October 25, 2024. FINDINGS: Hardware: None Heart: Mild cardiomegaly. Mediastinum: Calcification of the aortic arch. Lungs: Vascular congestion and mild CHF. Bones: Degenerative changes are identified within the thoracic spine. RAD/Chest PA and Lateral IMPRESSION: Mild cardiomegaly with vascular congestion and mild degree of CHF. Reading Location: [place] [id number]
--- NOTE | 2024-10-30 09:45 | PCM.PN.SRG ---
Subjective Subjective Patient has no complaints Objective Data Objective Data Vital Signs: Vital Signs Temp Pulse Resp BP Pulse Ox O2 Del Method O2 Flow Rate 98.2 F 97 24 H 140/62 H 97 Nasal Cannula 3 10/30/24 09:06 10/30/24 09:06 10/30/24 09:06 10/30/24 09:06 10/30/24 09:30 10/30/24 09:30 10/30/24 09:30 Oxygen Flow Rate (L/min) 3 Oxygen Delivery Method Nasal Cannula Weight: 244 lb 15.995 oz Body Mass Index (BMI) 39.5 Intake & Output: Intake and Output for Last 24 Hours 10/28/24 10/29/24 10/30/24 23:59 23:59 23:59 Intake Total 1705.50 / 1705.50 849.08 / 849.08 150 / 150 Output Total 200 / 200 1000 / 1800 1300 / 1300 Balance 1505.50 / 1505.50 -150.92 / -950.92 -1150 / -1150 Lab / Micro Data 10/30/24 07:31 10/30/24 07:31 Labs: Laboratory Results - last 24 hr 10/29/24 11:26: POC Glucose 161 H 10/29/24 16:23: POC Glucose 100 10/29/24 21:13: Vancomycin Trough 33.0 H 10/29/24 21:34: POC Glucose 134 H 10/30/24 06:02: POC Glucose 88 10/30/24 07:31: WBC 8.2, RBC 4.93, Hgb 11.8 L, Hct 38.6, MCV 78.3 L, MCH 23.9 L, MCHC 30.6 L, RDW Std Deviation 58.9 H, RDW Coeff of Faby 20.9 H, Plt Count 189, MPV 9.3, Immature Gran % (Auto) 1.600 H, Neut % (Auto) 83.6 H, Lymph % (Auto) 6.7 L, [place] % (Auto) 6.7, Eos % (Auto) 1.0, Baso % (Auto) 0.4, Absolute Neuts (auto) 6.8, Absolute Lymphs (auto) 0.55 L, Nucleated RBC % 0, Platelet Estimate ADEQUATE, Polychromasia 1+, Anisocytosis 1+, Sodium 140, Potassium 5.0, Chloride 108, Carbon Dioxide 23.6, Anion Gap 8, BUN 27 H, Creatinine 1.20, Estim Creat Clear Calc 55.90, Est GFR (MDRD) Non-Af 49 L, BUN/Creatinine Ratio 22.8 H, Glucose 88, Calcium 10.0 Micro: Microbiology 10/28/24 09:05 Wound Abcess - Abdominal Gram Stain - Final 10/25/24 06:05 Blood Culture (Wb) - Anticubital Left Blood Culture - Final Staphylococcus epidermidis 10/26/24 12:42 Blood Culture (Wb) - Left Hand Blood Culture - Preliminary No growth in 48 hours. 10/26/24 11:55 Blood Culture (Wb) - Other Blood Culture - Preliminary No growth in 48 hours. 10/25/24 06:00 Blood Culture (Wb) - Anticubital Right Bacteria Detection (PCR) - Final Staphylococcus epidermidis mecA Resistance Marker 10/25/24 06:00 Blood Culture (Wb) - Anticubital Right Blood Culture - Final Gram positive organism Physical Exam Const oriented x3 and no apparent distress GI soft to palpation GI Narrative: Incision open inferiorly and packed with half-inch iodoform, dressing wet with mostly serous fluid somewhat cloudy/thicker initially. This was irrigated with saline and packing was replaced. Assessment & Plan Assessment/Plan (1) Ventral hernia: QUALIFIERS: Obstruction and gangrene presence: with obstruction but without gangrene Qualified Code(s): K43.6 - Other and unspecified ventral hernia with obstruction, without gangrene (2) Postoperative wound infection: PLAN: yeast (3) Bacteremia: PLAN: Possible contaminant x 2, repeat blood cultures negative at 48 hrs. PLAN: Plan Patient's wound irrigated with saline mostly serous, culture showed gram stain-positive cocci rare?prelim aerobic yeast x 2 and a gram-negative marty; patient placed on ceftriaxone as well as fluconazole?irrigating 3 times daily with saline will also change to wet-to-dry Dakin's packing. patient will likely need placement as she will not be able to handle wound care as her previous aide is no longer there. Ordered PT OT, possible wound VAC in future Irrigation kind of cloudy --- did get another culture to be safe and add on ceftriaxone, fluconazole with the vancomycin currently Appreciate medicine's assistance with medical management. Dr. Aldridge is covering tomorrow and this weekend An Shah M.D. Pager: [phone] [facility] [address] [place] [address], [address] [place] [address] Office: [phone]
[2024-10-30] MEDS: Glucerna Shake 120 ML LIQUID PO ×3 (09:58→16:49)
[2024-10-30] MEDS: Ceftriaxone 1 GM/50 ML BAG IV (09:58)
[2024-10-30] MEDS: Pantoprazole Sodium 20 MG Tablet PO (09:59)
[2024-10-30] MEDS: APIXABAN 5 MG TABLET PO ×2 (09:59→21:43)
[2024-10-30] MEDS: Acetaminophen 325 MG Tablet 650 MG PO ×2 (10:10→16:11)
--- NOTE | 2024-10-30 10:29 | NURSING ---
picture of cxr results sent to dr hines
--- NOTE | 2024-10-30 11:27 | CASEMGMT ---
Social Work- SW met with pt to discuss discharge planning. SW introduced self and role. Pt was lying in bed with eyes closed. A list of SNF providers including quality and resource use data and consistent with the patient?s preferred geographic region, medical needs, and insurance network were provided from the [facility] Guide. Pt reports that she doesn't want to talk right now because she's sleeping. Pt was agreeable to selecting three choices from SNF list. SW will follow up later today. ARELIS Muhammad
[2024-10-30] MEDS: Furosemide 40 MG/4 ML Vial IV ×2 (12:37→16:59)
[2024-10-30] MEDS: Insulin Lispro 100 UNIT/ML INSULN.PEN SC ×3 (12:43→21:42)
[2024-10-30 12:52] LABS: Pro- Brain NATRIURETIC PEPTIDE 3934 pg/mL (<=900)
[2024-10-30 13:11] LABS: Bedside Glucose 158 mg/dL (74-106)
[2024-10-30] MEDS: Fluconazole IVPB 400 MG/200 ML BAG 100 MG IV (14:21)
[2024-10-30] MEDS: 0.9% Normal Saline (100mL Bag) 100 ML 15 ML IV (14:23)
--- NOTE | 2024-10-30 15:06 | CASEMGMT ---
Addendum entered by Nakia Hinton 10/31/24 09:22: [facility] SW updated. Nakia Hinton DC Planning Asst. Addendum entered by Nakia Hinton 10/30/24 15:57: [facility] declined d/t no bed availability. Nakia Hinton DC Planning Asst. Original Note: Discharge Planning Referral [facility]. Nakia Hinton DC Planning Asst.
--- NOTE | 2024-10-30 16:14 | CASEMGMT ---
Social Work- SW met with pt to follow up on SNf list. [facility]. DCA notified of referral request. [facility] completed an on-site visit and accepted pt. KELLY collaborated with provider who reports that pt will be here through the weekend. KELLY remains available to follow. Plan: [facility]; precert not started at this time ARELIS Muhammad
[2024-10-30 16:28] LABS: Bedside Glucose 199 mg/dL (74-106)
[2024-10-30 16:51] LABS: Vancomycin, Random Level 21.8 ug/mL (0.0-15.0)
[2024-10-30 17:12] LABS: Bedside Glucose 204 mg/dL (74-106)
[2024-10-30] MEDS: Atorvastatin Calcium 80 MG Tablet PO (21:43)
[2024-10-30] MEDS: DAKIN'S SOL HALF STRENGTH (=0.25%) TOPICAL (21:53)
[2024-10-30 22:11] LABS: Bedside Glucose 261 mg/dL (74-106)
[2024-10-31] VITALS (16 sets, daily range): BP systolic 122–155; BP diastolic 48–95; PULSE 66–157; RESP 18–24; TEMP 36.3–37.5; O2SAT 94–100
[2024-10-31] MEDS: Menthol/Lanolin/Calamine/Znox 113 GM Tube 1 APPLIC TOPICAL ×3 (05:27→21:37)
[2024-10-31] MEDS: DAKIN'S SOL HALF STRENGTH (=0.25%) TOPICAL ×3 (05:28→22:15)
[2024-10-31] MEDS: Nystatin Powder 15gm Bottle 1 APPLIC TOPICAL ×3 (05:28→21:37)
[2024-10-31 07:14] LABS: Bedside Glucose 147 mg/dL (74-106)
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
[2024-10-31 07:33] LABS: Vancomycin, Random Level 18.3 ug/mL (0.0-15.0)
[2024-10-31 07:41] LABS: Absolute Lymphocyte Count 0.54 X10^3/uL (0.83-4.51); Absolute Neutrophil Count 8.3 X10^3/uL (2.0-7.7); Basophil# 0.05 X10^3/uL; Basophil% 0.5 % (0-1); Eosinophil# 0.07 X10^3/uL; Eosinophils% 0.7 % (0-5); Hematocrit 33.9 % (37-47); Hemoglobin 10.6 g/dL (12.0-15.0); Lymphocyte # 0.54 X10^3/ul (0.83-4.51); Lymphocyte % 5.6 % (19-41); Mean Corp Hgb Conc 31.3 g/dL (32-36); Mean Corpuscular Hgb 24.3 pg (27.0-32.0); Mean Corpuscular Volume 77.8 fL (81-99); Mean Platelet Vol. 9.4 fl (6.2-12.0); Monocyte# 0.57 X10^3/uL; Monocyte% 5.9 % (0-10); NRBC Flagged by Analyzer 0 % (0-5); Neutrophil # 8.25 X10^3/uL (2.7-7.7); Neutrophil % 85.7 % (47-70); POSITIVE DIFFERENTIAL YES; POSITIVE MORPHOLOGY YES; Platelet Count 164 K/mm3 (150-450); RBC Distribution Width CV 20.6 % (11.6-14.6); RBC Distribution Width SD 57.5 fl (35.1-43.9); Red Blood Count 4.36 M/mm3 (4.2-5.4); White Blood Count 9.6 K/mm3 (4.4-11.0)
[2024-10-31 08:17] LABS: Platelet Estimate A (ADEQ)
--- NOTE | 2024-10-31 08:17 | PCM.RX.CS ---
Consult Antibiotic Management Pharmacy has been consulted to manage selected antibiotic: Vancomycin Type of Intervention Type of Consult: Follow-up Suspected Infection Suspected Infection: Bacteremia Labs Labs: Vancomycin Trough 33.0 ug/mL (5.0-15.0) H 10/29/24 21:13 Random Vancomycin 18.3 ug/mL (0.0-15.0) H 10/31/24 06:21 Microbiology Microbiology: Microbiology 10/28/24 09:05 Wound Abcess - Abdominal Gram Stain - Final 10/28/24 09:05 Wound Abcess - Abdominal Wound Culture - Preliminary Yeast, not Marguerite albicans Presumptive C albicans Gram negative marty 10/25/24 06:05 Blood Culture (Wb) - Anticubital Left Blood Culture - Final Staphylococcus epidermidis 10/26/24 12:42 Blood Culture (Wb) - Left Hand Blood Culture - Preliminary No growth in 48 hours. 10/26/24 11:55 Blood Culture (Wb) - Other Blood Culture - Preliminary No growth in 48 hours. 10/25/24 06:00 Blood Culture (Wb) - Anticubital Right Bacteria Detection (PCR) - Final Staphylococcus epidermidis mecA Resistance Marker 10/25/24 06:00 Blood Culture (Wb) - Anticubital Right Blood Culture - Final Gram positive organism Dosing Weight Weight used for dosin kg Estimated Creatinine Clearance Estimated Creatinine Clearance: 60ml/min Pharmacy Plan for Drug Dosing Pharmacy Plan for Drug Dosing: Today's random level ~44 hrs post last dose was therapeutic at 18.3. Previous levels 21.8 and 33. Will restart dosing but at reduced dose of 1000mg iv q12h. Previous dose 1500mg iv q12h. Trough level ordered for before 4th dose of new regimen. Pharmacy Service will continue to monitor and adjust dosing as required. Follow-Up Labs Follow-Up Labs: Trough: Vancomycin (4.5.25 @2130)
[2024-10-31 08:18] LABS: Anisocytosis 1+
[2024-10-31 08:24] LABS: Anion Gap 8 (5-15); BUN 25 mg/dL (4-19); BUN/Creat Ratio 24.2 RATIO (10-20); Calcium,Total 9.8 mg/dL (7.6-11.0); Carbon Dioxide 21.3 mmol/L (21.0-32.0); Chloride 108 mmol/L (98-108); Creatinine, Serum 1.05 mg/dL (0.70-1.20); EST Glomerular Filtration Rate 58 (>60); Estimated Creatinine Clearance 63.89 ml/min (50-250); Glucose 150 mg/dL (70-99); Potassium 5.6 mmol/L (3.3-5.1); Sodium Level 137 mmol/L (133-145)
[2024-10-31] MEDS: Glucerna Shake 120 ML LIQUID PO (09:25)
[2024-10-31] MEDS: 0.9% Saline Lock 10 ML Syringe IV ×3 (09:27→21:38)
[2024-10-31] MEDS: Carvedilol 12.5 MG Tablet PO ×2 (09:28→17:45)
[2024-10-31] MEDS: APIXABAN 5 MG TABLET PO ×2 (09:28→21:37)
[2024-10-31] MEDS: Furosemide 40 MG/4 ML Vial IV ×2 (09:28→17:45)
[2024-10-31] MEDS: Pantoprazole Sodium 20 MG Tablet PO (09:29)
[2024-10-31] MEDS: Fluconazole IVPB 200 MG/100 ML BAG 100 MG IV (09:29)
[2024-10-31] MEDS: Ceftriaxone 1 GM/50 ML BAG IV (09:43)
[2024-10-31 09:50] LABS: Potassium 5.6 mmol/L (3.3-5.1)
[2024-10-31] MEDS: Vancomycin IV 1,000 MG/200 ML BAG 200 MG IV ×2 (10:18→21:41)
--- NOTE | 2024-10-31 10:50 | NURSING ---
deep wound culture from right abdomen sent to lab
--- NOTE | 2024-10-31 11:10 | NURSING ---
Tracy in Micro confirms she received wound culture of right lower abdominal wound
[2024-10-31 12:14] LABS: Bedside Glucose 104 mg/dL (74-106)
--- NOTE | 2024-10-31 12:40 | PCM.PN.ID ---
ID ID: Route of nutrition/ use of supplements: [] Nutritional Intake: [] IV Site: [] Koo Catheter: [] Patient is alert and responsive. No fevers. Events over the last 24 hours reviewed. Currently on vancomycin plus ceftriaxone plus fluconazole. Microbiology data reviewed. Alert responsive does not appear toxic. Abdomen is obese but soft. Surgical incision there is an open wound with packing. Assessment & Plan Assessment/Plan (1) Bacteremia: PLAN: Coagulase-negative Staphylococcus. Strongly suspect contaminant. Currently on multiple antimicrobial agents including antifungal therapy. Given the appearance of the abdominal incision/wound would limit use of antimicrobial therapy
[2024-10-31] MEDS: traMADol 50 MG Tablet PO (19:50)
--- NOTE | 2024-10-31 20:11 | PCM.HOSP.N ---
Hospitalist Note Patient with recurrent tachycardic events throughout admission, on BB therapy which has been adjusted. Currently sustained. Will given lopressor 5 mg IV x 1 and reassess.
[2024-10-31] MEDS: Metoprolol Tartrate 5 MG/5 ML Vial IV (20:24)
[2024-10-31] MEDS: Insulin Lispro 100 UNIT/ML INSULN.PEN SC (21:37)
[2024-10-31] MEDS: Atorvastatin Calcium 80 MG Tablet PO (21:38)
[2024-10-31 22:08] LABS: Bedside Glucose 233 mg/dL (74-106)
[2024-10-31] MEDS: Diltiazem 125 MG in Dextrose 5%-Water (100mL Bag) 100 ML IV (23:10)
--- NOTE | 2024-10-31 23:20 | EKG12_ITS ---
Test Reason : DYSRHYTHMIA Blood Pressure : */* mmHG Vent. Rate : 139 BPM Atrial Rate : * BPM P-R Int : * ms QRS Dur : 72 ms QT Int : 266 ms P-R-T Axes : * 54 75 degrees QTcB Int : 404 ms Atrial fibrillation with rapid ventricular response Low voltage QRS Nonspecific ST abnormality Abnormal ECG When compared with ECG of 27-Oct-2024 19:22, No significant change was found Confirmed by CATHERINE GAFFNEY, BRIA ([id number]), electronic news gathering editor REGAN ANDERSON ([id number]) on 11/03/2024 9:18:17 AM Referred By: Confirmed By: BRIA ALEXANDER MD
--- NOTE | 2024-10-31 23:20 | ECHOCS_ITS ---
Reason For Study Reason For Study: ARRYTHMIA Procedure This was a 2D Doppler, Color Flow transthoracic echocardiogram. The study was technically difficult. Contrast injection was performed. Exam performed portable in patient room. Left Ventricle Normal LV size. The estimated ejection fraction is 65 %. No evidence for diastolic dysfunction. No regional wall motion abnormalities noted. Right Ventricle Normal RV size. Normal systolic function. Atria The left and right atria are normal. No doppler evidence for ASD. Mitral Valve There is no mitral valve stenosis. No mitral valve insufficiency. Tricuspid Valve There is no tricuspid stenosis. Unable to estimate RV systolic pressure due to inadequate jet, pulmonary artery pressure probably normal. Aortic Valve Trisinus/trileaflet aortic valve. Aortic sclerosis, no stenosis. No aortic valve insufficiency. Pulmonic Valve There is no pulmonic valvular stenosis. No pulmonic valve insufficiency. Great Vessels Normal sized aortic root. Pericardium/Pleural No pericardial effusion. MMode/2D Measurements & Calculations LVIDd: 3.5 cm IVSd: 1.4 cm LVAd ap4: 24.8 cm2 LVIDs: 2.3 cm LVPWd: 1.0 cm LVLd ap4: 6.8 cm FS: 35.1 % EDV(MOD-sp4): 72.9 ml EDV(sp4-el): 76.0 ml LVAs ap4: 9.1 cm2 LVLs ap4: 4.5 cm ESV(MOD-sp4): 15.3 ml ESV(sp4-el): 15.5 ml EF(MOD-sp4): 79.0 % EF(sp4-el): 79.6 % SV(MOD-sp4): 57.6 ml SV(sp4-el): 60.5 ml SI(MOD-sp4): 26.5 ml/m2 Time Measurements MV dec time: 0.16 sec Doppler Measurements & Calculations MV E max ponce: 101.2 cm/sec Ao V2 max: 150.0 cm/sec MV A max ponce: 50.3 cm/sec MV dec slope: 622.2 cm/sec2 Ao max P.0 mmHg MV E/A: 2.0 Ao V2 mean: 102.0 cm/sec Ao mean P.8 mmHg Ao V2 VTI: 23.2 cm AV (velocity ratio): 0.87 LV V1 max: 125.7 cm/sec PA V2 max: 75.0 cm/sec LV V1 max P.3 mmHg PA V2 mean: 55.1 cm/sec LV V1 mean P.9 mmHg LV V1 mean: 94.1 cm/sec LV V1 VTI: 20.3 cm ECHO/Echo Complete W/ Contrast Interpretation Summary The estimated ejection fraction is 65 %. No evidence for diastolic dysfunction. Ordering Physician: Naima Mason Referring Physician: Dennis Pelayo Performed By: Chen Andujar RCS
[2024-11-01] VITALS (34 sets, daily range): BP systolic 98–149; BP diastolic 45–86; PULSE 78–146; RESP 11–31; TEMP 36–36.7; O2SAT 93–97
[2024-11-01 00:04] LABS: Lactic Acid 1.2 mmol/L (0.0-2.0)
[2024-11-01 01:01] LABS: Magnesium 1.4 mg/dL (1.5-2.2)
[2024-11-01] MEDS: Digoxin 250 MCG/ML Ampul 500 MCG IV (02:33)
[2024-11-01] MEDS: 0.9% Saline Lock 10 ML Syringe IV ×4 (02:36→12:48)
[2024-11-01] MEDS: Magnesium Sulfate 2 GM in Dextrose 5%-Water (100mL Bag) 100 ML IV (02:44)
[2024-11-01] MEDS: DAKIN'S SOL HALF STRENGTH (=0.25%) TOPICAL ×3 (05:21→23:08)
[2024-11-01] MEDS: Menthol/Lanolin/Calamine/Znox 113 GM Tube 1 APPLIC TOPICAL ×3 (05:21→23:06)
[2024-11-01] MEDS: Nystatin Powder 15gm Bottle 1 APPLIC TOPICAL ×3 (05:22→23:07)
[2024-11-01] MEDS: Insulin Lispro 100 UNIT/ML INSULN.PEN SC ×4 (06:44→23:05)
[2024-11-01] MEDS: Digoxin 250 MCG/ML Ampul IV (06:54)
[2024-11-01 07:05] LABS: Bedside Glucose 211 mg/dL (74-106)
[2024-11-01] MEDS: Diltiazem 125 MG in Dextrose 5%-Water (100mL Bag) 100 ML 15 MG IV ×2 (07:19→15:21)
[2024-11-01 07:37] LABS: Magnesium 1.8 mg/dL (1.5-2.2)
--- NOTE | 2024-11-01 07:58 | PCM.PN.HOSP ---
Reason for Visit Reason for Visit: Diagnoses Other acute postprocedural pain (10/23/24) Essential (primary) hypertension (10/23/24) Unspecified atrial fibrillation (10/23/24) Hypotension, unspecified (10/23/24) Incisional hernia with obstruction, without gangrene (10/23/24) Incisional hernia without obstruction or gangrene (10/23/24) Other and unspecified ventral hernia with obstruction, without gangrene (10/23/24) Ventral hernia without obstruction or gangrene (10/23/24) Dyspnea, unspecified (10/23/24) Bacteremia (10/23/24) Infection following a procedure, other surgical site, initial encounter (10/23/24) 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 Telemetry monitoring this a.m. shows a flutter. Consult was placed to cardiology. Objective Data Objective Data Vital Signs: Vital Signs Temp Pulse Resp BP Pulse Ox O2 Del Method O2 Flow Rate 97.4 F L 90 21 H 126/56 H 94 Nasal Cannula 2 11/01/24 05:22 11/01/24 07:19 11/01/24 07:19 11/01/24 07:19 11/01/24 07:19 11/01/24 07:19 11/01/24 07:19 Oxygen Flow Rate (L/min) 2 Oxygen Delivery Method Nasal Cannula Weight: 111.13 kg Body Mass Index (BMI) 39.5 Intake & Output: Intake and Output for Last 24 Hours 10/30/24 10/31/24 11/01/24 23:59 23:59 23:59 Intake Total 1200 / 1200 1665.92 / 1667.17 212.08 / 212.08 Output Total 1900 / 2450 3500 / 3500 0 / 0 Balance -700 / -1250 -1834.08 / -1832.83 212.08 / 212.08 Lab / Micro Data 10/31/24 07:23 10/31/24 07:23 Labs: Laboratory Results - last 24 hr 10/31/24 07:23: Platelet Estimate A, Anisocytosis 1+, Sodium 137, Potassium 5.6 H 10/31/24 07:23: Potassium 5.6 H, Chloride 108, Carbon Dioxide 21.3, Anion Gap 8, BUN 25 H, Creatinine 1.05, Estim Creat Clear Calc 63.89, Est GFR (MDRD) Non-Af 58 L, BUN/Creatinine Ratio 24.2 H, Glucose 150 H, Calcium 9.8 10/31/24 11:56: POC Glucose 104 10/31/24 21:35: POC Glucose 233 H 10/31/24 23:30: Lactic Acid 1.2 11/01/24 00:03: Magnesium 1.4 L, TSH 1.220 11/01/24 06:05: Magnesium 1.8 11/01/24 06:37: POC Glucose 211 H Micro: Microbiology 10/30/24 10:46 Aspirate - Abdominal Gram Stain - Final 10/28/24 09:05 Wound Abcess - Abdominal Gram Stain - Final 10/28/24 09:05 Wound Abcess - Abdominal Wound Culture - Final Escherichia coli Presumptive C albicans 10/28/24 09:05 Wound Abcess - Abdominal Anaerobic Culture - Final No anaerobic bacteria isolated. 10/26/24 12:42 Blood Culture (Wb) - Left Hand Blood Culture - Final No growth in 5 days. 10/26/24 11:55 Blood Culture (Wb) - Other Blood Culture - Final No growth in 5 days. 10/25/24 06:05 Blood Culture (Wb) - Anticubital Left Blood Culture - Final Staphylococcus epidermidis 10/25/24 06:00 Blood Culture (Wb) - Anticubital Right Bacteria Detection (PCR) - Final Staphylococcus epidermidis mecA Resistance Marker 10/25/24 06:00 Blood Culture (Wb) - Anticubital Right Blood Culture - Final Gram positive organism Physical Exam Narrative GENERAL: cooperative on supplemental oxygen HEENT: Atraumatic; normocephalic EYES; Anicteric, Normal Conjunctiva NECK; supple, normal thyroid, RESPIRATORY: Diminished to auscultation CARDIOVASCULAR: Regular S1 S2, GI: Protuberant abdomen, incision site CDI : No Renal angle tenderness; EXTREMITIES: No edema, no clubbing, MUSCULOSKELETAL: no muscle wasting NEURO: Awake; no lateralizing signs. SKIN: No Rash PSYCH; Flat affect Assessment & Plan Assessment/Plan (1) Bacteremia: (2) Hypotension: (3) History of diabetes mellitus: (4) Ventral hernia: QUALIFIERS: Obstruction and gangrene presence: with obstruction but without gangrene Qualified Code(s): K43.6 - Other and unspecified ventral hernia with obstruction, without gangrene PLAN: Plan Patient is a 68-year-old lady with history of ventral hernia who presented with nausea vomiting. CT of the abdomen and pelvis obtained demonstrated small bowel loops with different air-fluid levels concerning for bowel obstruction. Patient was admitted to the surgical service. UnderwentRecurrent incisional hernia repair with mesh on 10/24/2024. Postoperative period complicated by hypoxia and hypoglycemia. 1. Acute intestinal obstruction secondary to incisional hernia ? Patient was admitted to the surgical service. UnderwentRecurrent incisional hernia repair with mesh on 10/24/2024. ?10/28/2024; patient pain relatively well-controlled ? 10/29/2024;Patient was noted by general surgery to have some purulent material from her incision. The wound was irrigated cultures sent. Patient subsequently started on antibiotic therapy ? 10/31/2024Patient seen wound cultures obtained came back positive for E. 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 Patient remains on ceftriaxone 2. Bacteremia ? Initial blood cultures positive for staph epi possibly contaminant repeat blood cultures sent patient started on broad-spectrum antibiotic therapy pending results of repeat cultures ?10/28/2024; repeat cultures obtained on the result pending. Patient was seen in consultation by ID with recommendations reviewed ? 10/31/2024 bacteremia thought to be contaminants 3. Diabetes mellitus type II -Patient stay complicated by hypoglycemia. Patient's oral hypoglycemics held. Patient was on long-acting insulin dose adjusted given recurrent hypoglycemia. Also placed on Accu-Cheks a.c. and at bedtime and covered with sliding scale insulin -10/28/2024 continues to experience low blood glucose held long-acting insulin ? 10/29/2024Patient continues to experience hypoglycemic episode discontinued patient long-acting insulin left only on Accu-Cheks before meals and at bedtime with sliding scale coverage ? 10/31/2024; patient blood glucose levels have stabilized following discontinuation of long-acting insulin and sulfonylureas remains on Accu-Cheks ACHS with sliding scale coverage 4. Class III obesity with BMI of 42 ? Complicating care weight loss advised 5. Essential hypertension ? Patient blood pressure has been running on the low side did continue with home meds with holding parameters 6. Paroxysmal atrial fibrillation ? Rate controlled patient was on apixaban which was held prior to surgery, Subsequently resumed following surgery - 11/02/2019 patient was transferred to the progressive care unit after going into RVR did receive Cardizem bolus. Telemetry monitoring this a.m. demonstrates a flutter. Consultation was placed to cardiology 7. GERD -Continue PPI 8. Anemia ? Secondary to chronic disorder monitoring H&H and transfuse if patient becomes symptomatic or hemoglobin falls below 7 DVT prophylaxis ? On on apixaban 9. Hypophosphatemia ? Corrected per protocol, repeat labs ordered for 10. Hypomagnesemia ? Corrected per protocol, repeat labs ordered for a.m. 11. DVT prophylaxis ? On apixaban 12. Acute hypoxia ? Ordered chest x-ray, proBNP placed on supplemental oxygen titrated to keep saturation greater than 90 13. Acute congestive heart failure ? Patient was placed on diuretic therapy, strict input and output, daily weight, low-sodium diet ordered 2D echo(Patient was apparently noncooperative 2D echo could therefore not be completed) 14. Physical deconditioning ? Requested for PT OT eval and social worker masters to assist with discharge planning; patient agreeable to being discharged to correction facility Time spent in the patient's overall evaluation, decision-making process, review of diagnostic data, adjustment of management, discussion with other providers, nursing and ancillary staff involved in patient's care documentation, 36 minutes Charges/Coding Visit Charges Inpatient E&M: 32016 Subs Hosp L2
[2024-11-01] MEDS: Fluconazole IVPB 200 MG/100 ML BAG 100 MG IV (08:54)
[2024-11-01] MEDS: Carvedilol 12.5 MG Tablet PO ×2 (09:00→16:29)
[2024-11-01] MEDS: APIXABAN 5 MG TABLET PO ×2 (09:00→23:06)
[2024-11-01] MEDS: Pantoprazole Sodium 20 MG Tablet PO (09:00)
[2024-11-01] MEDS: Ceftriaxone 1 GM/50 ML BAG IV (10:29)
[2024-11-01] MEDS: Vancomycin IV 1,000 MG/200 ML BAG 200 MG IV (11:38)
[2024-11-01 12:24] LABS: Bedside Glucose 201 mg/dL (74-106)
[2024-11-01] MEDS: Furosemide 40 MG/4 ML Vial IV ×2 (12:48→17:23)
--- NOTE | 2024-11-01 12:49 | PCM.PN.SRG ---
Subjective Subjective Patient without issues or complaints this morning. Patient transferred to PCU last night secondary to atrial flutter. Good rate control this morning. Nurses noted increase erythema/cellulitis to right side of abdomen today versus yesterday. Objective Data Objective Data Vital Signs: Vital Signs Temp Pulse Resp BP Pulse Ox O2 Del Method O2 Flow Rate 97.4 F L 90 21 H 126/56 H 94 Nasal Cannula 2 11/01/24 05:22 11/01/24 07:19 11/01/24 07:19 11/01/24 07:19 11/01/24 09:40 11/01/24 09:37 11/01/24 11:22 Oxygen Flow Rate (L/min) 2 Oxygen Delivery Method Nasal Cannula Weight: 244 lb 15.995 oz Body Mass Index (BMI) 39.5 Intake & Output: Intake and Output for Last 24 Hours 10/30/24 10/31/24 11/01/24 23:59 23:59 23:59 Intake Total 1200 / 1200 1665.92 / 1667.17 375.41 / 375.41 Output Total 1900 / 2450 3500 / 3500 0 / 0 Balance -700 / -1250 -1834.08 / -1832.83 375.41 / 375.41 Lab / Micro Data 10/31/24 07:23 10/31/24 07:23 Labs: Laboratory Results - last 24 hr 10/31/24 21:35: POC Glucose 233 H 10/31/24 23:30: Lactic Acid 1.2 11/01/24 00:03: Magnesium 1.4 L, TSH 1.220 11/01/24 06:05: Magnesium 1.8 11/01/24 06:37: POC Glucose 211 H 11/01/24 11:58: POC Glucose 201 H Micro: Microbiology 10/30/24 10:46 Aspirate - Abdominal Gram Stain - Final 10/28/24 09:05 Wound Abcess - Abdominal Gram Stain - Final 10/28/24 09:05 Wound Abcess - Abdominal Wound Culture - Final Escherichia coli Presumptive C albicans 10/28/24 09:05 Wound Abcess - Abdominal Anaerobic Culture - Final No anaerobic bacteria isolated. 10/26/24 12:42 Blood Culture (Wb) - Left Hand Blood Culture - Final No growth in 5 days. 10/26/24 11:55 Blood Culture (Wb) - Other Blood Culture - Final No growth in 5 days. 10/25/24 06:05 Blood Culture (Wb) - Anticubital Left Blood Culture - Final Staphylococcus epidermidis 10/25/24 06:00 Blood Culture (Wb) - Anticubital Right Bacteria Detection (PCR) - Final Staphylococcus epidermidis mecA Resistance Marker 10/25/24 06:00 Blood Culture (Wb) - Anticubital Right Blood Culture - Final Gram positive organism Physical Exam Narrative She is alert and oriented x 3. She was in no acute distress. Examination of the abdomen does indeed confirm increased erythema and cellulitis and warmth to right side of abdomen. This is lateral to the wound likely due to dependency of her pannus. Packing with purulent tinged fluid. This was removed and continue to exhibit purulent tinged fluid. Recommended that wound be fully opened. This was performed at bedside by prepping the area with Betadine and then injecting a local anesthetic. #15 blade was then used to reopen the previous incision along its full length. Upon doing so copious amount of purulent/turbid fluid was evacuated. Some Vicryl sutures were excised as well in order to fully open the wound to facilitate appropriate drainage. The wound was then irrigated with saline. Necrosis of skin and purulent exudate was excised using #15 blade. This involved skin as well as subcutaneous tissue. The wound was probed to deloculated any additional pockets. Once this was felt to be appropriately opened the wound was irrigated again and then packed with Dakin moistened Kerlix. This was packed into all of the areas of tunneling mostly lateral and inferior. Patient tolerated this well. I suspect this will likely require some additional bedside debridement. Patient did very well through this procedure. Assessment & Plan Assessment/Plan (1) Postoperative wound infection: PLAN: Plan Patient is a 68-year-old female status post repair of recurrent incisional hernia with mesh. Patient with postoperative wound infection. Infectious disease following. Wound was further opened today to facilitate drainage and improve Packing. Recommend continue every 6 hour dressing changes. Will reevaluate wound again tomorrow. Patient would likely benefit from wound VAC once wound is more clean. Will continue to monitor wound closely
--- NOTE | 2024-11-01 15:18 | PCM.CONS.C ---
Assessment & Plan Assessment/Plan (1) Atrial fibrillation: QUALIFIERS: Atrial fibrillation type: unspecified Qualified Code(s): I48.91 - Unspecified atrial fibrillation PLAN: Continue Coreg. We can start the patient on Cardizem 60 mg p.o. every 6 hours and stop the IV Cardizem half an hour after first dose of p.o. Cardizem. At the time of discharge the Cardizem can be switched to long-acting dose depending on how much daily dose she ends up needing. Continue Eliquis. HPI Consult Data Date of Consult: 11/01/24 HPI Narrative Reason for Consultation: Paroxysmal A-fib with RVR HPI Narrative: ZOIE DE LA PAZ, is a 68 F who presents with intestinal obstruction. She underwent surgery for that. Patient has history of paroxysmal A-fib. She was on Coreg 25 mg p.o. twice daily as an outpatient. She was also on Eliquis. Patient went into A-fib with RVR and is currently on Coreg 12.5 mg p.o. twice daily and Cardizem drip. Her heart rate is currently controlled. [facility] Medical History Hernia, ventral History of atrial fibrillation Abdominal pain Neuropathic pain Essential (primary) hypertension Cognitive dysfunction ESBL (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 coli infection Wears glasses Former smoker Obesity Ambulates with cane Stroke/cerebrovascular accident Difficulty in walking Poor historian Recurrent incisional hernia with incarceration Incarcerated ventral hernia Obstructive sleep apnea Atrial fibrillation Intraventricular hemorrhage Embolic stroke GERD (gastroesophageal reflux disease) Obesity (BMI 30-39.9) Hyperlipidemia Hypertension Diabetes mellitus Home Medications ?Medication ?Instructions ?Recorded ?Last Taken ?Type omeprazole 20 mg capsule,delayed 20 mg PO DAILY GERd 05/29/14 06/08/24 History release amlodipine 10 mg tablet (Norvasc) 10 mg PO QHS HTN 10/04/16 06/07/24 History apixaban 5 mg tablet (Eliquis) 5 mg PO BID blood thinner 10/04/16 06/08/24 History Held on 10/24/24. Instructions: Resume on 10/26/24. atorvastatin 80 mg tablet 80 mg PO QHS Cholesterol 10/25/16 06/07/24 Rx lisinopril 40 mg tablet 40 mg PO DAILY HTN 10/25/16 06/08/24 Rx pioglitazone 15 mg tablet 15 mg PO DAILY DM #30 tabs 10/09/22 06/08/24 Rx gabapentin 600 mg tablet 600 mg PO BID Nerve Pain 01/01/24 06/08/24 History multivitamin with folic acid 400 1 tab PO DAILY Supplement 05/14/24 06/08/24 History mcg tablet (Daily-Levon (with folic acid)) carvedilol 25 mg tablet 25 mg PO BID BP #60 tabs 05/19/24 06/08/24 Rx dapagliflozin propanediol 10 mg 10 mg PO DAILY diabetes #30 tabs 06/27/24 Unknown Rx tablet (Farxiga) insulin glargine 100 unit/mL (3 15 unit (0.15 mL) subcut BIDCM DM 06/27/24 Unknown Rx mL) subcutaneous pen (Lantus #5 pens Solostar U-100 Insulin) sennosides 8.6 mg-docusate sodium 1 tab PO BID #60 tabs 06/27/24 Unknown Rx 50 mg tablet (Stimulant Laxative Plus) benzonatate 200 mg capsule 200 mg PO TID PRN cough 10/23/24 Unknown History cholecalciferol (vitamin D3) 50 50 mcg PO DAILY 10/23/24 Unknown History mcg (2,000 unit) capsule dulaglutide 4.5 mg/0.5 mL 4.5 mg subcut QWEEK 10/23/24 Unknown History subcutaneous pen injector (Trulicity) glipizide 10 mg tablet 10 mg PO BID 10/23/24 Unknown History metformin 500 mg tablet 500 mg PO BID 10/23/24 Unknown History naproxen 500 mg tablet 500 mg PO BID 10/23/24 Unknown History nystatin 100,000 unit/gram topical 1 applic topical BID 10/23/24 Unknown History powder (Nyamyc) oxycodone 5 mg capsule 5 mg PO Q6H PRN pain 3 days #10 10/24/24 Unknown Rx caps Allergy/AdvReac Type Severity Reaction Status Date / Time iodine Allergy Mild Itching Verified 10/23/24 09:29 Penicillins Allergy Mild Itching Verified 10/23/24 09:29 Family History Father CVA (cerebral vascular accident) Mother Diabetes Stomach cancer Other High cholesterol Hypertension Surgical History History of cholecystectomy Hx of colonoscopy Status post debridement History of hysterectomy S/P repair of ventral hernia Social History household members: none Smoking Status: Former smoker alcohol intake: never substance use type: does not use caffeine: Yes what type of physical activity do you participate in: walking frequency: daily Physical Exam Const no apparent distress HEENT normocephalic Eyes no scleral icterus Resp normal respiratory effort Cardio Cardio Narrative: Irregular rhythm Risk Stratification Risk Stratification Applicable: No Charges/Coding Visit Charges Inpatient E&M: 35901 Init Hosp L2 Objective Data Vital Signs: Vital Signs Temp Pulse Resp BP Pulse Ox O2 Del Method O2 Flow Rate 97.4 F L 80 20 H 122/49 H 95 Nasal Cannula 2 11/01/24 05:22 11/01/24 12:05 11/01/24 12:05 11/01/24 12:05 11/01/24 12:05 11/01/24 13:00 11/01/24 13:00 Oxygen Flow Rate (L/min) 2 Oxygen Delivery Method Nasal Cannula Weight: 244 lb 15.995 oz Body Mass Index (BMI) 39.5 Intake & Output: Intake and Output for Last 24 Hours 10/30/24 10/31/24 11/01/24 23:59 23:59 23:59 Intake Total 1200 / 1200 1665.92 / 1667.17 733.58 / 733.58 Output Total 1900 / 2450 3500 / 3500 100 / 100 Balance -700 / -1250 -1834.08 / -1832.83 633.58 / 633.58 Lab / Micro Data 10/31/24 07:23 10/31/24 07:23 Labs: Laboratory Results - last 24 hr 10/31/24 21:35: POC Glucose 233 H 10/31/24 23:30: Lactic Acid 1.2 11/01/24 00:03: Magnesium 1.4 L, TSH 1.220 11/01/24 06:05: Magnesium 1.8 11/01/24 06:37: POC Glucose 211 H 11/01/24 11:58: POC Glucose 201 H Micro: Microbiology 10/30/24 10:46 Aspirate - Abdominal Gram Stain - Final 10/30/24 10:46 Aspirate - Abdominal Wound Culture - Preliminary Yeast Like Organism Mixed Gram Positive Organisms 10/28/24 09:05 Wound Abcess - Abdominal Gram Stain - Final 10/28/24 09:05 Wound Abcess - Abdominal Wound Culture - Final Escherichia coli Presumptive C albicans 10/28/24 09:05 Wound Abcess - Abdominal Anaerobic Culture - Final No anaerobic bacteria isolated. 10/26/24 12:42 Blood Culture (Wb) - Left Hand Blood Culture - Final No growth in 5 days. 10/26/24 11:55 Blood Culture (Wb) - Other Blood Culture - Final No growth in 5 days. Cardiology Labs/Tests 10/31/24 23:30: Lactic Acid 1.2 11/01/24 00:03: Magnesium 1.4 L 11/01/24 06:05: Magnesium 1.8 Rhythm: EKG: ECHO: Stress Test: Cardiac Cath: PCI: CT Surgery: Holter monitor: EPS: PPM: CXR: Chest CT Scan: Radiography Diagnostic Testing: Radiology Impression Echocardiogram 10/31/24 23:20 Interpretation Summary The estimated ejection fraction is 65 %. No evidence for diastolic dysfunction. Ordering Physician: Naima Mason Referring Physician: Dennis Pelayo Performed By: Chen Andujar RCS
[2024-11-01 17:00] LABS: Bedside Glucose 190 mg/dL (74-106)
[2024-11-01] MEDS: dilTIAZem 60 MG Tablet PO ×2 (17:23→23:06)
[2024-11-01 22:35] LABS: Vancomycin, Trough Level 21.5 ug/mL (5.0-15.0)
[2024-11-01] MEDS: Atorvastatin Calcium 80 MG Tablet PO (23:06)
[2024-11-01 23:27] LABS: Bedside Glucose 178 mg/dL (74-106)
[2024-11-02] MEDS: Vancomycin HCl 750 MG in 0.9% Normal Saline (250mL Bag) 250 ML 250 MG IV ×2 (01:29→15:02)
--- NOTE | 2024-11-02 01:53 | PCM.RX.CS ---
Consult Antibiotic Management Pharmacy has been consulted to manage selected antibiotic: Vancomycin Type of Intervention Type of Consult: Follow-up Labs Labs: Sodium 137 mmol/L (133-145) 10/31/24 07:23 Potassium 5.6 mmol/L (3.3-5.1) H 10/31/24 07:23 Potassium 5.6 mmol/L (3.3-5.1) H 10/31/24 07:23 Chloride 108 mmol/L (98-108) 10/31/24 07:23 Carbon Dioxide 21.3 mmol/L (21.0-32.0) 10/31/24 07:23 Anion Gap 8 (5-15) 10/31/24 07:23 BUN 25 mg/dL (4-19) H 10/31/24 07:23 Creatinine 1.05 mg/dL (0.70-1.20) 10/31/24 07:23 Est GFR (MDRD) Non-Af 58 (>60) L 10/31/24 07:23 BUN/Creatinine Ratio 24.2 RATIO (10-20) H 10/31/24 07:23 Glucose 150 mg/dL (70-99) H 10/31/24 07:23 Vancomycin Trough 21.5 ug/mL (5.0-15.0) H 11/01/24 21:33 Random Vancomycin 18.3 ug/mL (0.0-15.0) H 10/31/24 06:21 Microbiology Microbiology: Microbiology 10/30/24 10:46 Aspirate - Abdominal Gram Stain - Final 10/30/24 10:46 Aspirate - Abdominal Wound Culture - Preliminary Yeast Like Organism Mixed Gram Positive Organisms 10/28/24 09:05 Wound Abcess - Abdominal Gram Stain - Final 10/28/24 09:05 Wound Abcess - Abdominal Wound Culture - Final Escherichia coli Presumptive C albicans 10/28/24 09:05 Wound Abcess - Abdominal Anaerobic Culture - Final No anaerobic bacteria isolated. 10/26/24 12:42 Blood Culture (Wb) - Left Hand Blood Culture - Final No growth in 5 days. 10/26/24 11:55 Blood Culture (Wb) - Other Blood Culture - Final No growth in 5 days. 10/25/24 06:05 Blood Culture (Wb) - Anticubital Left Blood Culture - Final Staphylococcus epidermidis 10/25/24 06:00 Blood Culture (Wb) - Anticubital Right Bacteria Detection (PCR) - Final Staphylococcus epidermidis mecA Resistance Marker 10/25/24 06:00 Blood Culture (Wb) - Anticubital Right Blood Culture - Final Gram positive organism Goal Trough Goal Trough: 15-20 mcg/mL Pharmacy Plan for Drug Dosing Pharmacy Plan for Drug Dosing: Pharmacy Service will continue to monitor and adjust dosing as required. TROUGH 21.5 @ 10 HOURS. DECREASE TO 750MG Q12H AND DRAW TROUGH PRIOR TO 4TH DOSE Follow-Up Labs Follow-Up Labs: Trough: Vancomycin Date/Time Labs Ordered Labs to be done on [date and time ordered]: 11/03 @ 1234
[2024-11-02 03:26] VITALS: BP 105/55; PULSE 85; RESP 18; TEMP 36.6; O2SAT 95
[2024-11-02 04:50] LABS: Absolute Lymphocyte Count 0.57 X10^3/uL (0.83-4.51); Absolute Neutrophil Count 9.9 X10^3/uL (2.0-7.7); Basophil# 0.02 X10^3/uL; Basophil% 0.2 % (0-1); Eosinophil# 0.03 X10^3/uL; Eosinophils% 0.3 % (0-5); Hematocrit 33.6 % (37-47); Hemoglobin 10.5 g/dL (12.0-15.0); Lymphocyte # 0.57 X10^3/ul (0.83-4.51); Lymphocyte % 5.1 % (19-41); Mean Corp Hgb Conc 31.3 g/dL (32-36); Mean Corpuscular Hgb 24.1 pg (27.0-32.0); Mean Corpuscular Volume 77.1 fL (81-99); Mean Platelet Vol. 9.8 fl (6.2-12.0); Monocyte# 0.54 X10^3/uL; Monocyte% 4.8 % (0-10); NRBC Flagged by Analyzer 0 % (0-5); Neutrophil # 9.92 X10^3/uL (2.7-7.7); Neutrophil % 88.4 % (47-70); POSITIVE DIFFERENTIAL YES; POSITIVE MORPHOLOGY YES; Platelet Count 193 K/mm3 (150-450); RBC Distribution Width CV 20.3 % (11.6-14.6); RBC Distribution Width SD 56.6 fl (35.1-43.9); Red Blood Count 4.36 M/mm3 (4.2-5.4); White Blood Count 11.2 K/mm3 (4.4-11.0)
[2024-11-02 04:56] LABS: Differential Indicated SCAN CRITERIA MET
[2024-11-02 05:40] LABS: Anion Gap 8 (5-15); BUN 26 mg/dL (4-19); BUN/Creat Ratio 23.5 RATIO (10-20); Calcium,Total 9.9 mg/dL (7.6-11.0); Carbon Dioxide 23.7 mmol/L (21.0-32.0); Chloride 104 mmol/L (98-108); EST Glomerular Filtration Rate 54 (>60); Estimated Creatinine Clearance 60.98 ml/min (50-250); Glucose 192 mg/dL (70-99); Potassium 4.5 mmol/L (3.3-5.1); Sodium Level 136 mmol/L (133-145)
[2024-11-02 05:41] LABS: Anisocytosis 2+; Differential Comment SCANNED; Microcytosis 1+; Platelet Estimate ADEQUATE (ADEQ); Stomatocyte RARE; Target Cells 2+; Tear Drop Cell RARE
[2024-11-02 06:27] LABS: Bedside Glucose 176 mg/dL (74-106)
[2024-11-02 06:40] VITALS: BP 149/55; PULSE 83; RESP 18; TEMP 36.6; O2SAT 98
[2024-11-02] MEDS: Menthol/Lanolin/Calamine/Znox 113 GM Tube 1 APPLIC TOPICAL ×3 (06:41→22:03)
[2024-11-02] MEDS: Nystatin Powder 15gm Bottle 1 APPLIC TOPICAL ×3 (06:41→22:03)
[2024-11-02] MEDS: dilTIAZem 60 MG Tablet PO ×3 (06:42→17:09)
[2024-11-02] MEDS: DAKIN'S SOL HALF STRENGTH (=0.25%) TOPICAL ×3 (06:42→22:03)
[2024-11-02] MEDS: Insulin Lispro 100 UNIT/ML INSULN.PEN SC ×4 (06:42→22:02)
[2024-11-02 07:42] VITALS: O2SAT 97
--- NOTE | 2024-11-02 09:17 | PCM.PN.HOSP ---
Reason for Visit Reason for Visit: Diagnoses Other acute postprocedural pain (10/23/24) Essential (primary) hypertension (10/23/24) Unspecified atrial fibrillation (10/23/24) Hypotension, unspecified (10/23/24) Incisional hernia with obstruction, without gangrene (10/23/24) Incisional hernia without obstruction or gangrene (10/23/24) Other and unspecified ventral hernia with obstruction, without gangrene (10/23/24) Ventral hernia without obstruction or gangrene (10/23/24) Dyspnea, unspecified (10/23/24) Bacteremia (10/23/24) Infection following a procedure, other surgical site, initial encounter (10/23/24) longterm (current) use of anticoagulants (10/23/24) Personal history of other endocrine, nutritional and metabolic disease (10/23/24) Subjective Subjective Patient back in sinus rhythm. Plan is for patient to be discharged to intermediate facility pending insurance approval Objective Data Objective Data Vital Signs: Vital Signs Temp Pulse Resp BP Pulse Ox O2 Del Method O2 Flow Rate 98 F 83 18 149/55 H 97 Nasal Cannula 2 11/02/24 06:40 11/02/24 06:40 11/02/24 06:40 11/02/24 06:40 11/02/24 07:42 11/02/24 07:47 11/02/24 07:47 Oxygen Flow Rate (L/min) 2 Oxygen Delivery Method Nasal Cannula Weight: 111.13 kg Body Mass Index (BMI) 39.5 Intake & Output: Intake and Output for Last 24 Hours 10/31/24 11/01/24 11/02/24 23:59 23:59 23:59 Intake Total 1665.92 / 1667.17 872.33 / 872.33 265 / 265 Output Total 3500 / 3500 250 / 450 450 / 450 Balance -1834.08 / -1832.83 622.33 / 422.33 -185 / -185 Lab / Micro Data 11/02/24 04:25 11/02/24 04:25 Labs: Laboratory Results - last 24 hr 11/01/24 11:58: POC Glucose 201 H 11/01/24 16:28: POC Glucose 190 H 11/01/24 21:33: Vancomycin Trough 21.5 H 11/01/24 23:01: POC Glucose 178 H 11/02/24 04:25: WBC 11.2 H, RBC 4.36, Hgb 10.5 L, Hct 33.6 L, MCV 77.1 L, MCH 24.1 L, MCHC 31.3 L, RDW Std Deviation 56.6 H, RDW Coeff of Faby 20.3 H, Plt Count 193, MPV 9.8, Immature Gran % (Auto) 1.200 H, Neut % (Auto) 88.4 H, Lymph % (Auto) 5.1 L, [place] % (Auto) 4.8, Eos % (Auto) 0.3, Baso % (Auto) 0.2, Absolute Neuts (auto) 9.9 H, Absolute Lymphs (auto) 0.57 L, Nucleated RBC % 0, Differential Comment SCANNED, Platelet Estimate ADEQUATE, Anisocytosis 2+, Microcytosis 1+, Target Cells 2+, Tear Drop Cells RARE, Stomatocytes RARE, Sodium 136, Potassium 4.5, Chloride 104, Carbon Dioxide 23.7, Anion Gap 8, BUN 26 H, Creatinine 1.10, Estim Creat Clear Calc 60.98, Est GFR (MDRD) Non-Af 54 L, BUN/Creatinine Ratio 23.5 H, Glucose 192 H, Calcium 9.9 11/02/24 06:11: POC Glucose 176 H Micro: Microbiology 10/30/24 10:46 Aspirate - Abdominal Gram Stain - Final 10/30/24 10:46 Aspirate - Abdominal Wound Culture - Preliminary Yeast Like Organism Mixed Gram Positive Organisms 10/28/24 09:05 Wound Abcess - Abdominal Gram Stain - Final 10/28/24 09:05 Wound Abcess - Abdominal Wound Culture - Final Escherichia coli Presumptive C albicans 10/28/24 09:05 Wound Abcess - Abdominal Anaerobic Culture - Final No anaerobic bacteria isolated. 10/26/24 12:42 Blood Culture (Wb) - Left Hand Blood Culture - Final No growth in 5 days. 10/26/24 11:55 Blood Culture (Wb) - Other Blood Culture - Final No growth in 5 days. 10/25/24 06:05 Blood Culture (Wb) - Anticubital Left Blood Culture - Final Staphylococcus epidermidis 10/25/24 06:00 Blood Culture (Wb) - Anticubital Right Bacteria Detection (PCR) - Final Staphylococcus epidermidis mecA Resistance Marker 10/25/24 06:00 Blood Culture (Wb) - Anticubital Right Blood Culture - Final Gram positive organism Radiography Diagnostic Testing: Radiology Impression Echocardiogram 10/31/24 23:20 Interpretation Summary The estimated ejection fraction is 65 %. No evidence for diastolic dysfunction. Ordering Physician: Naima Mason Referring Physician: Dennis Pelayo Performed By: Chen Andujar RCS Physical Exam Narrative GENERAL: cooperative on supplemental oxygen HEENT: Atraumatic; normocephalic EYES; Anicteric, Normal Conjunctiva NECK; supple, normal thyroid, RESPIRATORY: Diminished to auscultation CARDIOVASCULAR: Regular S1 S2, GI: Protuberant abdomen, incision site CDI : No Renal angle tenderness; EXTREMITIES: No edema, no clubbing, MUSCULOSKELETAL: no muscle wasting NEURO: Awake; no lateralizing signs. SKIN: No Rash PSYCH; Flat affect Assessment & Plan Assessment/Plan (1) Bacteremia: (2) Hypotension: (3) History of diabetes mellitus: (4) Ventral hernia: QUALIFIERS: Obstruction and gangrene presence: with obstruction but without gangrene Qualified Code(s): K43.6 - Other and unspecified ventral hernia with obstruction, without gangrene PLAN: Plan Patient is a 68-year-old lady with history of ventral hernia who presented with nausea vomiting. CT of the abdomen and pelvis obtained demonstrated small bowel loops with different air-fluid levels concerning for bowel obstruction. Patient was admitted to the surgical service. UnderwentRecurrent incisional hernia repair with mesh on 10/24/2024. Postoperative period complicated by hypoxia and hypoglycemia. 1. Acute intestinal obstruction secondary to incisional hernia ? Patient was admitted to the surgical service. UnderwentRecurrent incisional hernia repair with mesh on 10/24/2024. ?10/28/2024; patient pain relatively well-controlled ? 10/29/2024;Patient was noted by general surgery to have some purulent material from her incision. The wound was irrigated cultures sent. Patient subsequently started on antibiotic therapy ? 10/31/2024Patient seen wound cultures obtained came back positive for E. coli premium representative C albicans. Patient remains on ceftriaxone 2. Bacteremia ? Initial blood cultures positive for staph epi possibly contaminant repeat blood cultures sent patient started on broad-spectrum antibiotic therapy pending results of repeat cultures ?10/28/2024; repeat cultures obtained on the result pending. Patient was seen in consultation by ID with recommendations reviewed ? 10/31/2024 bacteremia thought to be contaminants 3. Diabetes mellitus type II -Patient stay complicated by hypoglycemia. Patient's oral hypoglycemics held. Patient was on long-acting insulin dose adjusted given recurrent hypoglycemia. Also placed on Accu-Cheks a.c. and at bedtime and covered with sliding scale insulin -10/28/2024 continues to experience low blood glucose held long-acting insulin ? 10/29/2024Patient continues to experience hypoglycemic episode discontinued patient long-acting insulin left only on Accu-Cheks before meals and at bedtime with sliding scale coverage ? 10/31/2024; patient blood glucose levels have stabilized following discontinuation of long-acting insulin and sulfonylureas remains on Accu-Cheks ACHS with sliding scale coverage 4. Class III obesity with BMI of 42 ? Complicating care weight loss advised 5. Essential hypertension ? Patient blood pressure has been running on the low side did continue with home meds with holding parameters 6. Paroxysmal atrial fibrillation ? Rate controlled patient was on apixaban which was held prior to surgery, Subsequently resumed following surgery - 11/01/2024 patient was transferred to the progressive care unit after going into [facility] did receive Cardizem bolus. Telemetry monitoring this a.m. demonstrates a flutter. Consultation was placed to cardiology ?; patient was seen in consultation by cardiology noted recommendations reviewed 7. GERD -Continue PPI 8. Anemia ? Secondary to chronic disorder monitoring H&H and transfuse if patient becomes symptomatic or hemoglobin falls below 7 DVT prophylaxis ? On on apixaban 9. Hypophosphatemia ? Corrected per protocol, repeat labs ordered for 10. Hypomagnesemia ? Corrected per protocol, repeat labs ordered for a.m. 11. DVT prophylaxis ? On apixaban 12. Acute hypoxia ? Ordered chest x-ray, proBNP placed on supplemental oxygen titrated to keep saturation greater than 90 13. Acute congestive heart failure ? Patient was placed on diuretic therapy, strict input and output, daily weight, low-sodium diet ordered 2D echo(Patient was apparently noncooperative 2D echo could therefore not be completed) 14. Physical deconditioning ? Requested for PT OT eval and social work faculty member to assist with discharge planning; patient agreeable to being discharged to intermediate facility ?/; awaiting insurance precertification prior to transfer to intermediate facility Time spent in the patient's overall evaluation, decision-making process, review of diagnostic data, adjustment of management, discussion with other providers, nursing and ancillary staff involved in patient's care documentation, 36 minutes Charges/Coding Visit Charges Inpatient E&M: 45490 Subs Hosp L2
[2024-11-02 10:01] VITALS: BP 132/54; PULSE 82; RESP 20; TEMP 36.1; O2SAT 98
[2024-11-02] MEDS: Pantoprazole Sodium 20 MG Tablet PO (10:03)
[2024-11-02] MEDS: Furosemide 40 MG/4 ML Vial IV ×2 (10:03→17:09)
[2024-11-02] MEDS: Carvedilol 12.5 MG Tablet PO ×2 (10:03→17:09)
[2024-11-02] MEDS: APIXABAN 5 MG TABLET PO ×2 (10:03→22:02)
[2024-11-02] MEDS: Ceftriaxone 1 GM/50 ML BAG IV (10:20)
[2024-11-02] MEDS: Fluconazole IVPB 200 MG/100 ML BAG 100 MG IV (11:36)
[2024-11-02 12:02] LABS: Bedside Glucose 213 mg/dL (74-106)
--- NOTE | 2024-11-02 12:12 | NURSING ---
This RN spoke with Dr. Aldridge regarding possible PICC line placement and Dr. Aldridge confirms that it is okay to proceed with PICC insertion as ordered by Dr. Naima Mason. Soo GRIFFITHS
--- NOTE | 2024-11-02 12:49 | PCM.PN.SRG ---
Subjective Subjective Patient without any new issues or complaints overnight. No overnight issues per RN Objective Data Objective Data Vital Signs: Vital Signs Temp Pulse Resp BP Pulse Ox O2 Del Method O2 Flow Rate 97 F L 82 20 H 132/54 H 98 Room Air 3 11/02/24 10:01 11/02/24 10:11/02/24 10:11/02/24 10:01 11/02/24 10:11/02/24 10:01 11/02/24 11:20 Oxygen Flow Rate (L/min) 3 Oxygen Delivery Method Room Air Weight: 244 lb 15.995 oz Body Mass Index (BMI) 39.5 Intake & Output: Intake and Output for Last 24 Hours 10/31/24 11/01/24 11/02/24 23:59 23:59 23:59 Intake Total 1665.92 / 1667.17 872.33 / 872.33 265 / 265 Output Total 3500 / 3500 250 / 450 450 / 450 Balance -1834.08 / -1832.83 622.33 / 422.33 -185 / -185 Lab / Micro Data 11/02/24 04:25 11/02/24 04:25 Labs: Laboratory Results - last 24 hr 11/01/24 16:28: POC Glucose 190 H 11/01/24 21:33: Vancomycin Trough 21.5 H 11/01/24 23:01: POC Glucose 178 H 11/02/24 04:25: WBC 11.2 H, RBC 4.36, Hgb 10.5 L, Hct 33.6 L, MCV 77.1 L, MCH 24.1 L, MCHC 31.3 L, RDW Std Deviation 56.6 H, RDW Coeff of Faby 20.3 H, Plt Count 193, MPV 9.8, Immature Gran % (Auto) 1.200 H, Neut % (Auto) 88.4 H, Lymph % (Auto) 5.1 L, [place] % (Auto) 4.8, Eos % (Auto) 0.3, Baso % (Auto) 0.2, Absolute Neuts (auto) 9.9 H, Absolute Lymphs (auto) 0.57 L, Nucleated RBC % 0, Differential Comment SCANNED, Platelet Estimate ADEQUATE, Anisocytosis 2+, Microcytosis 1+, Target Cells 2+, Tear Drop Cells RARE, Stomatocytes RARE, Sodium 136, Potassium 4.5, Chloride 104, Carbon Dioxide 23.7, Anion Gap 8, BUN 26 H, Creatinine 1.10, Estim Creat Clear Calc 60.98, Est GFR (MDRD) Non-Af 54 L, BUN/Creatinine Ratio 23.5 H, Glucose 192 H, Calcium 9.9 11/02/24 06:11: POC Glucose 176 H 11/02/24 11:35: POC Glucose 213 H Micro: Microbiology 10/30/24 10:46 Aspirate - Abdominal Gram Stain - Final 10/30/24 10:46 Aspirate - Abdominal Wound Culture - Preliminary Yeast Like Organism GPC Poss Enterococcus sp 10/28/24 09:05 Wound Abcess - Abdominal Gram Stain - Final 10/28/24 09:05 Wound Abcess - Abdominal Wound Culture - Final Escherichia coli Presumptive C albicans 10/28/24 09:05 Wound Abcess - Abdominal Anaerobic Culture - Final No anaerobic bacteria isolated. 10/26/24 12:42 Blood Culture (Wb) - Left Hand Blood Culture - Final No growth in 5 days. 10/26/24 11:55 Blood Culture (Wb) - Other Blood Culture - Final No growth in 5 days. 10/25/24 06:05 Blood Culture (Wb) - Anticubital Left Blood Culture - Final Staphylococcus epidermidis 10/25/24 06:00 Blood Culture (Wb) - Anticubital Right Bacteria Detection (PCR) - Final Staphylococcus epidermidis mecA Resistance Marker 10/25/24 06:00 Blood Culture (Wb) - Anticubital Right Blood Culture - Final Gram positive organism Radiography Diagnostic Testing: Radiology Impression Echocardiogram 10/31/24 23:20 Interpretation Summary The estimated ejection fraction is 65 %. No evidence for diastolic dysfunction. Ordering Physician: Naima Mason Referring Physician: Dennis Pelayo Performed By: Chen Andujar RCS Physical Exam Narrative She is alert and oriented x 3. No acute distress. Abdomen is soft and appropriately tender. Erythema/cellulitis seems slightly improved today versus yesterday. Dressing/packing removed. Much less fluid on dressing. There was still a fairly significant amount of fat necrosis/exudate involving the lateral aspect of the wound. This was debrided using a #15 blade and hemostats. Patient tolerated this well. Wound was then packed with Dakin moistened Kerlix. ABD dressing applied patient tolerated this well Assessment & Plan Assessment/Plan (1) Postoperative wound infection: PLAN: Plan The patient is a 68-year-old female status post a recent ventral hernia repair with mesh. She has developed a postoperative wound infection. Wound was fully opened yesterday and debrided yesterday as well as today. Wound now packed with Dakin solution moistened Kerlix. Wound seems to be cleaning up for the most part. This may require additional bedside debridements. Eventually she would be a good candidate for wound VAC. Recommend continued IV antibiotics. Patient to receive PICC line as she has tenuous IV access. Dr. Shah to return tomorrow
--- NOTE | 2024-11-02 13:56 | RAD_ITS ---
EXAM: AP portable chest radiograph CLINICAL HISTORY: Pneumonia. Pleural effusions. PICC line placement. COMPARISON: Earlier today and others such as October 25, 2024. TECHNIQUE: Single view radiograph employing portable AP technique FINDINGS: A right-sided PICC line is seen in appropriate position and its tip is at the cavoatrial junction in satisfactory position. Mild cardiomegaly. Mediastinum shows calcification of the aortic arch and apparent widening of the right mediastinal contour, perhaps partly due to rotation. Pulmonary venous congestion indicating congestive heart failure. Unremarkable. RAD/CXR for Line Placement IMPRESSION: PICC line in appropriate position. Findings suggesting congestive hear failure. Reading Location: [facility]
[2024-11-02 15:47] VITALS: BP 108/70; PULSE 82; RESP 18; TEMP 36.8; O2SAT 98
[2024-11-02 17:42] LABS: Bedside Glucose 281 mg/dL (74-106)
[2024-11-02 22:01] VITALS: BP 105/55; PULSE 80; RESP 18; TEMP 36.8; O2SAT 98
[2024-11-02] MEDS: Atorvastatin Calcium 80 MG Tablet PO (22:02)
[2024-11-02 22:50] LABS: Bedside Glucose 224 mg/dL (74-106)
[2024-11-03 00:30] VITALS: BP 124/55; PULSE 81; RESP 20; TEMP 36.5; O2SAT 96
[2024-11-03] MEDS: dilTIAZem 60 MG Tablet PO ×2 (00:32→06:09)
[2024-11-03] MEDS: Vancomycin HCl 750 MG in 0.9% Normal Saline (250mL Bag) 250 ML 250 MG IV (00:36)
[2024-11-03] MEDS: Nystatin Powder 15gm Bottle 1 APPLIC TOPICAL ×3 (06:09→21:25)
[2024-11-03 06:10] VITALS: BP 127/50; PULSE 81; RESP 20; TEMP 36.6; O2SAT 96
[2024-11-03] MEDS: DAKIN'S SOL HALF STRENGTH (=0.25%) TOPICAL (06:10)
[2024-11-03] MEDS: Menthol/Lanolin/Calamine/Znox 113 GM Tube 1 APPLIC TOPICAL ×3 (06:10→21:25)
[2024-11-03] MEDS: Insulin Lispro 100 UNIT/ML INSULN.PEN SC ×3 (06:25→21:39)
[2024-11-03 06:54] LABS: Absolute Lymphocyte Count 0.56 X10^3/uL (0.83-4.51); Basophil# 0.04 X10^3/uL; Basophil% 0.4 % (0-1); Eosinophil# 0.06 X10^3/uL; Eosinophils% 0.5 % (0-5); Hematocrit 32.1 % (37-47); Lymphocyte # 0.56 X10^3/ul (0.83-4.51); Lymphocyte % 4.9 % (19-41); Mean Corp Hgb Conc 31.2 g/dL (32-36); Mean Corpuscular Hgb 24.1 pg (27.0-32.0); Mean Corpuscular Volume 77.3 fL (81-99); Monocyte# 0.57 X10^3/uL; NRBC Flagged by Analyzer 0 % (0-5); Neutrophil # 10.04 X10^3/uL (2.7-7.7); Neutrophil % 88.3 % (47-70); POSITIVE DIFFERENTIAL YES; POSITIVE MORPHOLOGY YES; Platelet Count 234 K/mm3 (150-450); RBC Distribution Width CV 20.3 % (11.6-14.6); RBC Distribution Width SD 56.7 fl (35.1-43.9); Red Blood Count 4.15 M/mm3 (4.2-5.4); White Blood Count 11.4 K/mm3 (4.4-11.0)
[2024-11-03 07:10] LABS: Anion Gap 9 (5-15); BUN 32 mg/dL (4-19); Calcium,Total 9.9 mg/dL (7.6-11.0); Carbon Dioxide 23.8 mmol/L (21.0-32.0); Chloride 105 mmol/L (98-108); Creatinine, Serum 1.18 mg/dL (0.70-1.20); EST Glomerular Filtration Rate 50 (>60); Estimated Creatinine Clearance 56.85 ml/min (50-250); Glucose 193 mg/dL (70-99); Magnesium 1.7 mg/dL (1.5-2.2); Phosphorus 2.6 mg/dL (2.7-4.5); Potassium 4.4 mmol/L (3.3-5.1); Sodium Level 137 mmol/L (133-145)
[2024-11-03 07:12] LABS: Differential Indicated SCAN CRITERIA MET
[2024-11-03 07:14] LABS: Bedside Glucose 186 mg/dL (74-106)
--- NOTE | 2024-11-03 07:43 | PCM.PN.CARD ---
Subjective Subjective Patient seen and evaluated. Stable at this time. Objective Data Vital Signs: Vital Signs Temp Pulse Resp BP Pulse Ox O2 Del Method O2 Flow Rate 97.8 F 81 20 H 127/50 H 96 Nasal Cannula 2 11/03/24 06:10 11/03/24 06:10 11/03/24 06:10 11/03/24 06:10 11/03/24 06:10 11/03/24 06:10 11/03/24 06:10 Oxygen Flow Rate (L/min) 2 Oxygen Delivery Method Nasal Cannula Weight: 244 lb 15.995 oz Body Mass Index (BMI) 39.5 Intake & Output: Intake and Output for Last 24 Hours 11/01/24 11/02/24 11/03/24 23:59 23:59 23:59 Intake Total 872.33 / 872.33 1160 / 1160 265 / 265 Output Total 250 / 450 450 / 1050 800 / 800 Balance 622.33 / 422.33 710 / 110 -535 / -535 Lab / Micro Data 11/03/24 05:20 11/03/24 05:20 Labs: Laboratory Results - last 24 hr 11/02/24 11:35: POC Glucose 213 H 11/02/24 17:06: POC Glucose 281 H 11/02/24 22:01: POC Glucose 224 H 11/03/24 05:20: WBC 11.4 H, RBC 4.15 L, Hgb 10.0 L, Hct 32.1 L, MCV 77.3 L, MCH 24.1 L, MCHC 31.2 L, RDW Std Deviation 56.7 H, RDW Coeff of Faby 20.3 H, Plt Count 234, MPV 10.0, Immature Gran % (Auto) 0.900, Neut % (Auto) 88.3 H, Lymph % (Auto) 4.9 L, [place] % (Auto) 5.0, Eos % (Auto) 0.5, Baso % (Auto) 0.4, Absolute Neuts (auto) 10.0 H, Absolute Lymphs (auto) 0.56 L, Nucleated RBC % 0, Sodium 137, Potassium 4.4, Chloride 105, Carbon Dioxide 23.8, Anion Gap 9, BUN 32 H, Creatinine 1.18, Estim Creat Clear Calc 56.85, Est GFR (MDRD) Non-Af 50 L, BUN/Creatinine Ratio 27.0 H, Glucose 193 H, Calcium 9.9, Phosphorus 2.6 L, Magnesium 1.7 11/03/24 06:24: POC Glucose 186 H Micro: Microbiology 10/30/24 10:46 Aspirate - Abdominal Gram Stain - Final 10/30/24 10:46 Aspirate - Abdominal Wound Culture - Preliminary Presumptive C albicans GPC Poss Enterococcus sp 10/30/24 10:46 Aspirate - Abdominal Anaerobic Culture - Preliminary Checking for anaerobes, further studies to follow. Cardiology Labs/Tests 11/03/24 05:20: WBC 11.4 H, RBC 4.15 L, Hgb 10.0 L, Hct 32.1 L, MCV 77.3 L, MCH 24.1 L, MCHC 31.2 L, Plt Count 234, MPV 10.0, Immature Gran % (Auto) 0.900, Neut % (Auto) 88.3 H, Lymph % (Auto) 4.9 L, [place] % (Auto) 5.0, Eos % (Auto) 0.5, Baso % (Auto) 0.4, Absolute Neuts (auto) 10.0 H, Nucleated RBC % 0, Sodium 137, Potassium 4.4, Chloride 105, Carbon Dioxide 23.8, Anion Gap 9, BUN 32 H, Creatinine 1.18, Est GFR (MDRD) Non-Af 50 L, BUN/Creatinine Ratio 27.0 H, Glucose 193 H, Calcium 9.9, Phosphorus 2.6 L, Magnesium 1.7 Rhythm: EKG: ECHO: Stress Test: Cardiac Cath: PCI: CT Surgery: Holter monitor: EPS: PPM: CXR: Chest CT Scan: Radiography Diagnostic Testing: Radiology Impression Chest X-Ray 11/02/24 13:56 IMPRESSION: PICC line in appropriate position. Findings suggesting congestive hear failure. Reading [facility] Physical Exam Const alert, oriented x3 and no apparent distress General Appearance: cooperative HEENT hearing grossly normal bilaterally Head and Scalp: atraumatic Eyes EOMs intact bilaterally Neck General: normal visual inspection Chest inspection of chest normal and palpation of chest normal Resp normal respiratory effort Auscultation: clear to auscultation bilaterally Cardio S1 normal heart sound and S2 normal heart sound Jugular Venous Distention: JVD Rhythm: abnormal rhythm irregularly irregular GI normal to inspection, nondistended, normoactive bowel sounds Extremity normal capillary refill and no pedal edema Peripheral Pulses: Yes pulses 2+ throughout and femoral pulses present Skin no rashes or lesions noted Neuro oriented x3 and CN's II-XII intact bilaterally Psych Appearance: grossly normal and appropriate Assessment & Plan Assessment/Plan (1) Atrial fibrillation: QUALIFIERS: Atrial fibrillation type: unspecified Qualified Code(s): I48.91 - Unspecified atrial fibrillation PLAN: Atrial fibrillation with a controlled ventricular response rate. Plan is to continue anticoagulation. Recommend discontinuing diltiazem Will increase carvedilol to 25 mg twice a day (2) Hypertension: QUALIFIERS: Hypertension type: primary hypertension Qualified Code(s): I10 - Essential (primary) hypertension PLAN: Will resume lisinopril and carvedilol. Echocardiogram demonstrates preserved left ventricular systolic function.
--- NOTE | 2024-11-03 08:11 | WOUNDNOTE ---
wound photo: right abdomen
[2024-11-03 08:20] LABS: Differential Comment SCANNED
[2024-11-03 08:34] VITALS: O2SAT 96
--- NOTE | 2024-11-03 08:40 | CT_ITS ---
PROCEDURE: ABDOMEN/PELVIS WITH CONTRAST 11/03/2024 REASON FOR EXAM: POSSIBLE SMALL BOWEL LEAK TECHNIQUE: Abdomen and pelvis CT with intravenous contrast. Coronal and Sagittal reconstruction series were provided. PATIENT PREPARATION: Per protocol ORAL CONTRAST TYPE: None. AMOUNT: mL CONTRAST: Isovue 370 VOLUME: 99 mL One or more dose reduction techniques were used (e.g., Automated exposure control, adjustment of the mA and/or kV according to patient size, use of iterative reconstruction technique. RADIATION DOSE SUMMARY: CTDlvol: 47 0.98 MGy DLP: 2771.41 mGycm FINDINGS: Lung bases: Consolidating process of the right lower lobe with trace or small pleural effusion. The liver, gallbladder, spleen and adrenal glands are unremarkable. The pancreas is small but otherwise unremarkable. Large right kidney lower pole cyst. Kidneys are otherwise unremarkable. Reproductive Organs: Status post hysterectomy. Bowel: Question of partial incarceration of colon and small bowel loops a right lower quadrant incisional hernia This is concerning for small bowel obstruction with or without adhesion with obstruction site at the umbilical hernia. Fecal retention in the colon consistent with constipation. No mucosal thickening. Peritoneum / Retroperitoneum: No free air. No free fluid. Bones: No aggressive bone lesion. CT/Abdomen/Pelvis WITH Contrast IMPRESSION: Concern for small bowel obstruction. Possibly due to adhesion at the surgical site in the right lower quadrant. Other etiologies not excluded Reading Location[facility]
[2024-11-03] MEDS: 0.9% Saline Lock 10 ML Syringe IV ×3 (09:07→21:24)
[2024-11-03] MEDS: Ceftriaxone 1 GM/50 ML BAG IV (09:07)
[2024-11-03] MEDS: Furosemide 40 MG/4 ML Vial IV ×2 (09:09→16:32)
[2024-11-03] MEDS: Pantoprazole Sodium 20 MG Tablet PO (09:09)
[2024-11-03] MEDS: APIXABAN 5 MG TABLET PO (09:09)
--- NOTE | 2024-11-03 09:17 | CASEMGMT ---
Addendum entered by Nakia Hinton 11/03/24 14:27: Surgical note sent to [employer] [employer] with note that they may want to pause precert. Nakia Hinton DC Planning Asst. Original Note: Updates sent to [employer] with note to submit for precert. Nakia Hinton DC Planning Asst.
--- NOTE | 2024-11-03 09:25 | PCM.PN.SRG ---
Subjective Subjective Patient evaluated resting comfortably in bed. She seems lethargic today. She notes pain/discomfort with packing the wound. Objective Data Objective Data Vital Signs: Vital Signs Temp Pulse Resp BP Pulse Ox O2 Del Method O2 Flow Rate 97.8 F 81 20 H 127/50 H 96 Nasal Cannula 2 11/03/24 06:10 11/03/24 06:10 11/03/24 06:10 11/03/24 06:10 11/03/24 06:10 11/03/24 06:10 11/03/24 06:10 Oxygen Flow Rate (L/min) 2 Oxygen Delivery Method Nasal Cannula Weight: 244 lb 15.995 oz Body Mass Index (BMI) 39.5 Intake & Output: Intake and Output for Last 24 Hours 11/01/24 11/02/24 11/03/24 23:59 23:59 23:59 Intake Total 872.33 / 872.33 1160 / 1160 265 / 265 Output Total 250 / 450 450 / 1050 800 / 800 Balance 622.33 / 422.33 710 / 110 -535 / -535 Lab / Micro Data 11/03/24 05:20 11/03/24 05:20 Labs: Laboratory Results - last 24 hr 11/02/24 11:35: POC Glucose 213 H 11/02/24 17:06: POC Glucose 281 H 11/02/24 22:01: POC Glucose 224 H 11/03/24 05:20: WBC 11.4 H, RBC 4.15 L, Hgb 10.0 L, Hct 32.1 L, MCV 77.3 L, MCH 24.1 L, MCHC 31.2 L, RDW Std Deviation 56.7 H, RDW Coeff of Faby 20.3 H, Plt Count 234, MPV 10.0, Immature Gran % (Auto) 0.900, Neut % (Auto) 88.3 H, Lymph % (Auto) 4.9 L, [place] % (Auto) 5.0, Eos % (Auto) 0.5, Baso % (Auto) 0.4, Absolute Neuts (auto) 10.0 H, Absolute Lymphs (auto) 0.56 L, Nucleated RBC % 0, Differential Comment SCANNED, Sodium 137, Potassium 4.4, Chloride 105, Carbon Dioxide 23.8, Anion Gap 9, BUN 32 H, Creatinine 1.18, Estim Creat Clear Calc 56.85, Est GFR (MDRD) Non-Af 50 L, BUN/Creatinine Ratio 27.0 H, Glucose 193 H, Calcium 9.9, Phosphorus 2.6 L, Magnesium 1.7 11/03/24 06:24: POC Glucose 186 H Micro: Microbiology 10/30/24 10:46 Aspirate - Abdominal Gram Stain - Final 10/30/24 10:46 Aspirate - Abdominal Wound Culture - Preliminary Presumptive C albicans GPC Poss Enterococcus sp 10/30/24 10:46 Aspirate - Abdominal Anaerobic Culture - Preliminary Checking for anaerobes, further studies to follow. 10/28/24 09:05 Wound Abcess - Abdominal Gram Stain - Final 10/28/24 09:05 Wound Abcess - Abdominal Wound Culture - Final Escherichia coli Presumptive C albicans 10/28/24 09:05 Wound Abcess - Abdominal Anaerobic Culture - Final No anaerobic bacteria isolated. 10/26/24 12:42 Blood Culture (Wb) - Left Hand Blood Culture - Final No growth in 5 days. 10/26/24 11:55 Blood Culture (Wb) - Other Blood Culture - Final No growth in 5 days. 10/25/24 06:05 Blood Culture (Wb) - Anticubital Left Blood Culture - Final Staphylococcus epidermidis 10/25/24 06:00 Blood Culture (Wb) - Anticubital Right Bacteria Detection (PCR) - Final Staphylococcus epidermidis mecA Resistance Marker 10/25/24 06:00 Blood Culture (Wb) - Anticubital Right Blood Culture - Final Gram positive organism Radiography Diagnostic Testing: Radiology Impression Chest X-Ray 11/02/24 13:56 IMPRESSION: PICC line in appropriate position. Findings suggesting congestive hear failure. Reading Location: [facility] Physical Exam GI GI Narrative: Abdomen- obese, open incisional wound with granulation tissue noted along with some bright green drainage on the Kerlix packing and light samaniego/brown fluid in the medial wound bed. Dakins dampened kerlix was placed within the wound followed by the ABD pad and secured with tape Assessment & Plan Assessment/Plan (1) Postoperative wound infection: PLAN: I am following this patient in conjunction with Dr. Shah. She will independently evaluate this patient. Labs reviewed. Drainage within the open wound was noted to be a brighter green Discussed patient with Dr. Shah She would like a CT scan of the ab/pel with oral and IV contrast to r/o a small bowel leak. Contrast allergy noted. Patient will be pre-medicated. Place patient NPO until after CT scan is completed in case surgical intervention is needed Continue to pack wound with Dakins twice daily We will continue to monitor this patient Charges/Coding Visit Charges Inpatient E&M: 10219 Subs Hosp L1 (post-op; no charge)
--- NOTE | 2024-11-03 09:54 | PN.HOSP_ITS ---
Reason for Visit Reason for Visit: Diagnoses Other acute postprocedural pain (10/23/24) Essential (primary) hypertension (10/23/24) Unspecified atrial fibrillation (10/23/24) Hypotension, unspecified (10/23/24) Incisional hernia with obstruction, without gangrene (10/23/24) Incisional hernia without obstruction or gangrene (10/23/24) Other and unspecified ventral hernia with obstruction, without gangrene (10/23/24) Ventral hernia without obstruction or gangrene (10/23/24) Dyspnea, unspecified (10/23/24) Bacteremia (10/23/24) Infection following a procedure, other surgical site, initial encounter (10/23/24) 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 Objective Data Objective Data Vital Signs: Vital Signs Temp Pulse Resp BP Pulse Ox O2 Del Method O2 Flow Rate 36.6 C 81 20 H 127/50 H 96 Nasal Cannula 2 11/03/24 06:10 11/03/24 06:10 11/03/24 06:10 11/03/24 06:10 11/03/24 06:10 11/03/24 06:10 11/03/24 06:10 Oxygen Flow Rate (L/min) 2 Oxygen Delivery Method Nasal Cannula Weight: 111.13 kg Body Mass Index (BMI) 39.5 Intake & Output: Intake and Output for Last 24 Hours 11/01/24 11/02/24 11/03/24 23:59 23:59 23:59 Intake Total 872.33 / 872.33 1160 / 1160 265 / 265 Output Total 250 / 450 450 / 1050 800 / 800 Balance 622.33 / 422.33 710 / 110 -535 / -535 Lab / Micro Data 11/03/24 05:20 11/03/24 05:20 Labs: Laboratory Results - last 24 hr 11/02/24 11:35: POC Glucose 213 H 11/02/24 17:06: POC Glucose 281 H 11/02/24 22:01: POC Glucose 224 H 11/03/24 05:20: WBC 11.4 H, RBC 4.15 L, Hgb 10.0 L, Hct 32.1 L, MCV 77.3 L, MCH 24.1 L, MCHC 31.2 L, RDW Std Deviation 56.7 H, RDW Coeff of Faby 20.3 H, Plt Count 234, MPV 10.0, Immature Gran % (Auto) 0.900, Neut % (Auto) 88.3 H, Lymph % (Auto) 4.9 L, [place] % (Auto) 5.0, Eos % (Auto) 0.5, Baso % (Auto) 0.4, Absolute Neuts (auto) 10.0 H, Absolute Lymphs (auto) 0.56 L, Nucleated RBC % 0, Differential Comment SCANNED, Sodium 137, Potassium 4.4, Chloride 105, Carbon Dioxide 23.8, Anion Gap 9, BUN 32 H, Creatinine 1.18, Estim Creat Clear Calc 56.85, Est GFR (MDRD) Non-Af 50 L, BUN/Creatinine Ratio 27.0 H, Glucose 193 H, Calcium 9.9, Phosphorus 2.6 L, Magnesium 1.7 11/03/24 06:24: POC Glucose 186 H Micro: Microbiology 10/30/24 10:46 Aspirate - Abdominal Gram Stain - Final 10/30/24 10:46 Aspirate - Abdominal Wound Culture - Preliminary Presumptive C albicans GPC Poss Enterococcus sp 10/30/24 10:46 Aspirate - Abdominal Anaerobic Culture - Preliminary Checking for anaerobes, further studies to follow. 10/28/24 09:05 Wound Abcess - Abdominal Gram Stain - Final 10/28/24 09:05 Wound Abcess - Abdominal Wound Culture - Final Escherichia coli Presumptive C albicans 10/28/24 09:05 Wound Abcess - Abdominal Anaerobic Culture - Final No anaerobic bacteria isolated. 10/26/24 12:42 Blood Culture (Wb) - Left Hand Blood Culture - Final No growth in 5 days. 10/26/24 11:55 Blood Culture (Wb) - Other Blood Culture - Final No growth in 5 days. 10/25/24 06:05 Blood Culture (Wb) - Anticubital Left Blood Culture - Final Staphylococcus epidermidis 10/25/24 06:00 Blood Culture (Wb) - Anticubital Right Bacteria Detection (PCR) - Final Staphylococcus epidermidis mecA Resistance Marker 10/25/24 06:00 Blood Culture (Wb) - Anticubital Right Blood Culture - Final Gram positive organism Radiography Diagnostic Testing: Radiology Impression Chest X-Ray 11/02/24 13:56 IMPRESSION: PICC line in appropriate position. Findings suggesting congestive hear failure. Reading Location: [facility] Physical Exam Const Constitutional Narrative: Listless. Wakes to voice. Resp normal respiratory effort, no retractions, no use of accessory muscles and clear to auscultation bilaterally Cardio regular rate, regular rhythm, S1 normal heart sound and S2 normal heart sound GI GI Narrative: slightly distended. tender. Extremity normal to inspection and full ROM Neuro Sensorium / Orientation: awake and alert Psych affect normal Assessment & Plan Assessment/Plan (1) Bacteremia: PLAN: Plan Bacteremia: * Staph epi positive on the 10/25. Repeats on 10/26 were negative. * on vancomycin IV hypotension: * resolved.Please review the notes from 10/25. Pt required IVF. I discontinued lisinopril, furosemide, and started hold parameters carvedilol. Amlodipine ordered by primary service last night but not given. Will discontinue. afib: * carvedilol * apixaban * cards following. SBO * seen on CT from 11/03. * plan to take patient to surgery on 11/04 * NPO except meds. Chronic conditoins: * DM2: glucose in 200s. Now back on diet, will resume glargine. Continue pioglitazone, glipizide and SSI. * HTN: meds held * Obesity Class II: complicates care and recovery. * Afib: carvedilol with hold parameter. Resume as BP allows. Hold apixaban pending surgery. Charges/Coding Visit Charges Inpatient E&M: 48058 Subs Hosp L2
[2024-11-03] MEDS: Carvedilol 25 MG Tablet PO ×2 (09:59→16:32)
[2024-11-03] MEDS: Fluconazole IVPB 200 MG/100 ML BAG 100 MG IV (10:00)
[2024-11-03] MEDS: 0.9% Normal Saline (100mL Bag) 100 ML 15 ML IV (10:00)
[2024-11-03] MEDS: Methylprednisolone Sod Succ 40 MG/ML VIAL IV (10:59)
[2024-11-03] MEDS: DiphenhydrAMINE 50 MG/ML Syringe IV (10:59)
[2024-11-03 11:36] LABS: Bedside Glucose 177 mg/dL (74-106)
[2024-11-03 13:00] VITALS: BP 118/47; PULSE 81; RESP 16; TEMP 36.8; O2SAT 97
[2024-11-03 13:41] LABS: Bedside Glucose 172 mg/dL (74-106)
[2024-11-03 14:06] LABS: Vancomycin, Trough Level 21.3 ug/mL (5.0-15.0)
--- NOTE | 2024-11-03 14:10 | WOUNDNOTE ---
Dr Shah and ASIA Gee in to reassess the abdominal wound and talk with patient about the CT results. plan is for OR tomorrow. orders changed to NS wet to dry dressings 4 times a day until surgery. will continue to follow.
--- NOTE | 2024-11-03 14:25 | PCM.RX.CS ---
Consult Antibiotic Management Pharmacy has been consulted to manage selected antibiotic: Vancomycin Type of Intervention Type of Consult: Follow-up Suspected Infection Suspected Infection: Other (POST SURGICAL/INTRA-ABDOMINAL) Prior Doses of Antibiotics Prior Doses of Antibiotics Received/Current Regimen: Vancomycin 750 mg Q12H last dose given 11/03 @ 0036 Labs Labs: Sodium 137 mmol/L (133-145) 11/03/24 05:20 Potassium 4.4 mmol/L (3.3-5.1) 11/03/24 05:20 Chloride 105 mmol/L (98-108) 11/03/24 05:20 Carbon Dioxide 23.8 mmol/L (21.0-32.0) 11/03/24 05:20 Anion Gap 9 (5-15) 11/03/24 05:20 BUN 32 mg/dL (4-19) H 11/03/24 05:20 Creatinine 1.18 mg/dL (0.70-1.20) 11/03/24 05:20 Est GFR (MDRD) Non-Af 50 (>60) L 11/03/24 05:20 BUN/Creatinine Ratio 27.0 RATIO (10-20) H 11/03/24 05:20 Glucose 193 mg/dL (70-99) H 11/03/24 05:20 Vancomycin Trough 21.3 ug/mL (5.0-15.0) H 11/03/24 12:43 Random Vancomycin 18.3 ug/mL (0.0-15.0) H 10/31/24 06:21 Microbiology Microbiology: Microbiology 10/30/24 10:46 Aspirate - Abdominal Gram Stain - Final 10/30/24 10:46 Aspirate - Abdominal Wound Culture - Preliminary Presumptive C albicans Enterococcus faecalis 10/30/24 10:46 Aspirate - Abdominal Anaerobic Culture - Preliminary Checking for anaerobes, further studies to follow. 10/28/24 09:05 Wound Abcess - Abdominal Gram Stain - Final 10/28/24 09:05 Wound Abcess - Abdominal Wound Culture - Final Escherichia coli Presumptive C albicans 10/28/24 09:05 Wound Abcess - Abdominal Anaerobic Culture - Final No anaerobic bacteria isolated. 10/26/24 12:42 Blood Culture (Wb) - Left Hand Blood Culture - Final No growth in 5 days. 10/26/24 11:55 Blood Culture (Wb) - Other Blood Culture - Final No growth in 5 days. 10/25/24 06:05 Blood Culture (Wb) - Anticubital Left Blood Culture - Final Staphylococcus epidermidis 10/25/24 06:00 Blood Culture (Wb) - Anticubital Right Bacteria Detection (PCR) - Final Staphylococcus epidermidis mecA Resistance Marker 10/25/24 06:00 Blood Culture (Wb) - Anticubital Right Blood Culture - Final Gram positive organism Dosing Weight Weight used for dosin kg Estimated Creatinine Clearance Estimated Creatinine Clearance: ~ 57 Goal Trough Goal Trough: 15-20 mcg/mL Pharmacy Plan for Drug Dosing Pharmacy Plan for Drug Dosing: Vancomycin trough = 21.3, hold, random in Am Pharmacy Service will continue to monitor and adjust dosing as required. Follow-Up Labs Follow-Up Labs: Trough: Vancomycin Date/Time Labs Ordered Labs to be done on [date and time ordered]: 11/04/24 @ 0600
[2024-11-03] MEDS: metroNIDAZOLE 500 MG/100 ML BAG 100 MG IV ×2 (16:10→21:25)
[2024-11-03 16:54] LABS: Bedside Glucose 229 mg/dL (74-106)
[2024-11-03] MEDS: Vancomycin Trough/Random Due 1 LAB MC (16:55)
[2024-11-03 17:44] VITALS: BP 119/51; PULSE 82; RESP 18; TEMP 36.8; O2SAT 99
--- NOTE | 2024-11-03 19:13 | PCM.PN.ID ---
Physical Exam Narrative Feeling ok, no fever, some abd pain Const alert and no apparent distress General Appearance: cooperative Resp normal air movement and clear to auscultation bilaterally Cardio regular rate and regular rhythm GI soft to palpation, non-tender and non-distended Skin Skin Narrative: no new rash ID ID: Route of nutrition/ use of supplements: [] Nutritional Intake: [] IV Site: [] Koo Catheter: [] Assessment & Plan Assessment/Plan (1) Postoperative wound infection: PLAN: OR planned for tomorrow. Continue vanc, ceftriaxone, and fluconazole. Will follow
[2024-11-03] MEDS: Atorvastatin Calcium 80 MG Tablet PO (21:25)
[2024-11-03 21:31] VITALS: BP 116/45; PULSE 81; RESP 16; TEMP 36.4; O2SAT 97
[2024-11-03 22:24] LABS: Bedside Glucose 225 mg/dL (74-106)
[2024-11-04] VITALS (15 sets, daily range): BP systolic 102–131; BP diastolic 41–59; PULSE 67–82; RESP 14–18; TEMP 36.1–36.6; O2SAT 81–98; BMI 39.5
[2024-11-04] MEDS: 0.9% Saline Lock 10 ML Syringe IV ×3 (04:57→19:54)
[2024-11-04] MEDS: metroNIDAZOLE 500 MG/100 ML BAG 100 MG IV ×2 (05:10→19:45)
[2024-11-04] MEDS: Menthol/Lanolin/Calamine/Znox 113 GM Tube 1 APPLIC TOPICAL ×2 (05:10→19:42)
[2024-11-04] MEDS: Nystatin Powder 15gm Bottle 1 APPLIC TOPICAL ×2 (05:10→19:42)
[2024-11-04 06:10] LABS: International Normalized Ratio 2.3
[2024-11-04 06:11] LABS: Absolute Lymphocyte Count 0.42 X10^3/uL (0.83-4.51); Absolute Neutrophil Count 8.5 X10^3/uL (2.0-7.7); Basophil# 0.01 X10^3/uL; Basophil% 0.1 % (0-1); Hematocrit 31.7 % (37-47); Hemoglobin 9.8 g/dL (12.0-15.0); Lymphocyte # 0.42 X10^3/ul (0.83-4.51); Lymphocyte % 4.5 % (19-41); Mean Corp Hgb Conc 30.9 g/dL (32-36); Mean Corpuscular Hgb 23.8 pg (27.0-32.0); Mean Corpuscular Volume 76.9 fL (81-99); Mean Platelet Vol. 9.5 fl (6.2-12.0); Monocyte# 0.22 X10^3/uL; Monocyte% 2.4 % (0-10); NRBC Flagged by Analyzer 0 % (0-5); Neutrophil # 8.54 X10^3/uL (2.7-7.7); Neutrophil % 92.1 % (47-70); POSITIVE DIFFERENTIAL YES; Partial Thromboplast Time 48.5 Seconds (24.1-36.2); Platelet Count 250 K/mm3 (150-450); RBC Distribution Width CV 19.9 % (11.6-14.6); RBC Distribution Width SD 55.7 fl (35.1-43.9); Red Blood Count 4.12 M/mm3 (4.2-5.4); White Blood Count 9.3 K/mm3 (4.4-11.0)
[2024-11-04 06:26] LABS: Anion Gap 9 (5-15); BUN 38 mg/dL (4-19); BUN/Creat Ratio 31.8 RATIO (10-20); Carbon Dioxide 24.1 mmol/L (21.0-32.0); Chloride 104 mmol/L (98-108); EST Glomerular Filtration Rate 49 (>60); Glucose 243 mg/dL (70-99); Potassium 4.4 mmol/L (3.3-5.1); Sodium Level 138 mmol/L (133-145)
[2024-11-04 06:26] LABS: Bedside Glucose 219 mg/dL (74-106)
[2024-11-04 06:32] LABS: Vancomycin, Random Level 17.2 ug/mL (0.0-15.0)
--- NOTE | 2024-11-04 07:02 | PCM.RX.CS ---
Consult Antibiotic Management Pharmacy has been consulted to manage selected antibiotic: Vancomycin Type of Intervention Type of Consult: Follow-up Labs Labs: Sodium 138 mmol/L (133-145) 11/04/24 05:40 Potassium 4.4 mmol/L (3.3-5.1) 11/04/24 05:40 Chloride 104 mmol/L (98-108) 11/04/24 05:40 Carbon Dioxide 24.1 mmol/L (21.0-32.0) 11/04/24 05:40 Anion Gap 9 (5-15) 11/04/24 05:40 BUN 38 mg/dL (4-19) H 11/04/24 05:40 Creatinine 1.20 mg/dL (0.70-1.20) 11/04/24 05:40 Est GFR (MDRD) Non-Af 49 (>60) L 11/04/24 05:40 BUN/Creatinine Ratio 31.8 RATIO (10-20) H 11/04/24 05:40 Glucose 243 mg/dL (70-99) H 11/04/24 05:40 Vancomycin Trough 21.3 ug/mL (5.0-15.0) H 11/03/24 12:43 Random Vancomycin 17.2 ug/mL (0.0-15.0) H 11/04/24 05:40 Microbiology Microbiology: Microbiology 10/30/24 10:46 Aspirate - Abdominal Gram Stain - Final 10/30/24 10:46 Aspirate - Abdominal Wound Culture - Preliminary Presumptive C albicans Enterococcus faecalis 10/30/24 10:46 Aspirate - Abdominal Anaerobic Culture - Preliminary Checking for anaerobes, further studies to follow. 10/28/24 09:05 Wound Abcess - Abdominal Gram Stain - Final 10/28/24 09:05 Wound Abcess - Abdominal Wound Culture - Final Escherichia coli Presumptive C albicans 10/28/24 09:05 Wound Abcess - Abdominal Anaerobic Culture - Final No anaerobic bacteria isolated. 10/26/24 12:42 Blood Culture (Wb) - Left Hand Blood Culture - Final No growth in 5 days. 10/26/24 11:55 Blood Culture (Wb) - Other Blood Culture - Final No growth in 5 days. 10/25/24 06:05 Blood Culture (Wb) - Anticubital Left Blood Culture - Final Staphylococcus epidermidis 10/25/24 06:00 Blood Culture (Wb) - Anticubital Right Bacteria Detection (PCR) - Final Staphylococcus epidermidis mecA Resistance Marker 10/25/24 06:00 Blood Culture (Wb) - Anticubital Right Blood Culture - Final Gram positive organism Pharmacy Plan for Drug Dosing Pharmacy Plan for Drug Dosing: VANCOMYCIN LEVEL RECEIVED Current Vancomycin Dose: ON HOLD- last dose was 750mg 11/03/24 @0036 Number of Doses Received: current regimen on hold Vancomycin Level: 17.2 Hours Since Last Dose: 30hr Renal Function: 1.2 Renal Function Trend: stable Lab/Micro: Wcx growing e.coccus Vancomycin Plan/Comments: Patient had a trough drawn which resulted in a value of 17.2 (goal 15-20). The patient's trough is now within goal range so vancomycin can be resumed at this time. Will start patient on vanco 1000mg IV Q24hr to start 11/04 @0700 Pending Level: 11/06/24 @0630, prior to 3rd dose of new regimen per protocol Pharmacy Service will continue to monitor and adjust dosing as required.
--- NOTE | 2024-11-04 08:36 | PCM.PN.SRG ---
Subjective Subjective No new events overnight Objective Data Objective Data Vital Signs: Vital Signs Temp Pulse Resp BP Pulse Ox O2 Del Method O2 Flow Rate 97 F L 79 16 106/47 L 98 Nasal Cannula 2 11/04/24 03:20 11/04/24 03:20 11/04/24 03:20 11/04/24 03:20 11/04/24 03:20 11/04/24 03:20 11/04/24 03:20 Oxygen Flow Rate (L/min) 2 Oxygen Delivery Method Nasal Cannula Weight: 244 lb 15.995 oz Body Mass Index (BMI) 39.5 Intake & Output: Intake and Output for Last 24 Hours 11/02/24 11/03/24 11/04/24 23:59 23:59 23:59 Intake Total 1160 / 1160 1215 / 1215 100 / 100 Output Total 450 / 1050 1700 / 1870 350 / 350 Balance 710 / 110 -485 / -655 -250 / -250 Lab / Micro Data 11/04/24 05:40 11/04/24 05:40 Labs: Laboratory Results - last 24 hr 11/03/24 11:17: POC Glucose 177 H 11/03/24 12:43: Vancomycin Trough 21.3 H 11/03/24 13:23: POC Glucose 172 H 11/03/24 16:31: POC Glucose 229 H 11/03/24 21:36: POC Glucose 225 H 11/04/24 05:40: WBC 9.3, RBC 4.12 L, Hgb 9.8 L, Hct 31.7 L, MCV 76.9 L, MCH 23.8 L, MCHC 30.9 L, RDW Std Deviation 55.7 H, RDW Coeff of Faby 19.9 H, Plt Count 250, MPV 9.5, Immature Gran % (Auto) 0.900, Neut % (Auto) 92.1 H, Lymph % (Auto) 4.5 L, [place] % (Auto) 2.4, Eos % (Auto) 0.0, Baso % (Auto) 0.1, Absolute Neuts (auto) 8.5 H, Absolute Lymphs (auto) 0.42 L, Nucleated RBC % 0, PT 26.0 H, INR 2.3, APTT 48.5 H, Sodium 138, Potassium 4.4, Chloride 104, Carbon Dioxide 24.1, Anion Gap 9, BUN 38 H, Creatinine 1.20, Estim Creat Clear Calc 55.90, Est GFR (MDRD) Non-Af 49 L, BUN/Creatinine Ratio 31.8 H, Glucose 243 H, Calcium 10.0, Random Vancomycin 17.2 H 11/04/24 06:07: POC Glucose 219 H Micro: Microbiology 10/30/24 10:46 Aspirate - Abdominal Gram Stain - Final 10/30/24 10:46 Aspirate - Abdominal Wound Culture - Preliminary Presumptive C albicans Enterococcus faecalis 10/30/24 10:46 Aspirate - Abdominal Anaerobic Culture - Preliminary Checking for anaerobes, further studies to follow. 10/28/24 09:05 Wound Abcess - Abdominal Gram Stain - Final 10/28/24 09:05 Wound Abcess - Abdominal Wound Culture - Final Escherichia coli Presumptive C albicans 10/28/24 09:05 Wound Abcess - Abdominal Anaerobic Culture - Final No anaerobic bacteria isolated. 10/26/24 12:42 Blood Culture (Wb) - Left Hand Blood Culture - Final No growth in 5 days. 10/26/24 11:55 Blood Culture (Wb) - Other Blood Culture - Final No growth in 5 days. 10/25/24 06:05 Blood Culture (Wb) - Anticubital Left Blood Culture - Final Staphylococcus epidermidis 10/25/24 06:00 Blood Culture (Wb) - Anticubital Right Bacteria Detection (PCR) - Final Staphylococcus epidermidis mecA Resistance Marker 10/25/24 06:00 Blood Culture (Wb) - Anticubital Right Blood Culture - Final Gram positive organism Radiography Diagnostic Testing: Radiology Impression Abdomen/Pelvis CT 11/03/24 08:40 IMPRESSION: Concern for small bowel obstruction. Possibly due to adhesion at the surgical site in the right lower quadrant. Other etiologies not excluded Reading Location: [facility] Physical Exam Const no apparent distress Cardio regular rate GI soft to palpation GI Narrative: Tender near open wound, small amount of green drainage at the area of the mesh site, other areas of wound with good granulation tissue with only a small amount of exudate, continue with packing wet-to-dry with saline Assessment & Plan Assessment/Plan (1) Postoperative wound infection: (2) S/P repair of ventral hernia: PLAN: Plan Patient's wound infection is from injury to small bowel as there is new greenish drainage starting yesterday from the wound. And cultures have also been consistent with small bowel contents. Patient Eliquis have been held since yesterday. Will take her for an exploratory laparotomy, removal of mesh, possible bowel resection. Did discuss the patient including but not limited to risk of bleeding, infection, recurrent hernia, possible need to transfer tertiary care facility. Patient had no further questions this time. Also discussed with patient's niece Aubrie over the phone. An Shah M.D. Pager: [phone] [facility] [address] [place] [address], [address] [place] [address] Office: [phone]
[2024-11-04] MEDS: Vancomycin IV 1,000 MG/200 ML BAG 200 MG IV (08:53)
[2024-11-04 08:57] LABS: Bedside Glucose 229 mg/dL (74-106)
[2024-11-04] MEDS: Carvedilol 25 MG Tablet PO (09:06)
[2024-11-04] MEDS: Pantoprazole Sodium 20 MG Tablet PO (09:07)
[2024-11-04] MEDS: Fluconazole IVPB 200 MG/100 ML BAG 100 MG IV (10:22)
[2024-11-04] MEDS: Ceftriaxone 1 GM/50 ML BAG IV (10:53)
[2024-11-04 12:17] LABS: Bedside Glucose 235 mg/dL (74-106)
--- NOTE | 2024-11-04 13:21 | PCM.PRE.AN2 ---
ASA Classification* ASA Classification ASA Classification: 3 Assessment & Plan Anesthesia* Anesthesia Assessment Anesthesia Assessment: Discussed sedation and/or anesthesia options, risks, benefits, and alternatives with patient/parents/legal guardian/POA. Questions invited. The patient/parents/legal guardian/POA seems to understand and agrees to proceed with anesthesia plan. Reviewed the physical assessment, medical history, allergy history and patient home medications list prior to surgery/procedure/anesthetic and documented any changes. Performed airway and anesthesia risk assessments. Anesthesia Type Anesthesia Type: General History Source History Obtained from:: Patient and Chart Anesthesia Focused Assessment* Temperature: 97.2 F Pulse Rate: 76 Blood Pressure: 110/52 Respiratory Rate: 14 Pulse Ox: 98 Oxygen Delivery Method: Nasal Cannula Oxygen Flow Rate (L/min): 2 Airway Assessment Mouth opens: >3 cm Mallampati Score: IV Teeth Condition: Dentures (Patient has full upper and lower dentures. They are out.) Neck Range of motion (ROM): Limited ROM Focused Labs Anesthesia Preop lab: CBC WBC 9.3 K/mm3 (4.4-11.0) 11/04/24 05:40 11/04/24 RBC 4.12 M/mm3 (4.2-5.4) L 11/04/24 05:40 11/04/24 Hgb 9.8 g/dL (12.0-15.0) L 11/04/24 05:40 11/04/24 Hct 31.7 % (37-47) L 11/04/24 05:40 11/04/24 Plt Count 250 K/mm3 (150-450) 11/04/24 05:40 11/04/24 CHEMISTRY Potassium 4.4 mmol/L (3.3-5.1) 11/04/24 05:40 11/04/24 Sodium 138 mmol/L (133-145) 11/04/24 05:40 11/04/24 Magnesium 1.7 mg/dL (1.5-2.2) 11/03/24 05:20 11/03/24 Phosphorus 2.6 mg/dL (2.7-4.5) L 11/03/24 05:20 11/03/24 BUN 38 mg/dL (4-19) H 11/04/24 05:40 11/04/24 Creatinine 1.20 mg/dL (0.70-1.20) 11/04/24 05:40 11/04/24 Glucose 243 mg/dL (70-99) H 11/04/24 05:40 11/04/24 POC Glucose 235 mg/dL (74-106) H 11/04/24 11:58 11/04/24 TSH 1.220 uIU/mL (0.300-4.200) 11/01/24 00:03 11/01/24 COAG PT 26.0 SECONDS (11.7-14.9) H 11/04/24 05:40 11/04/24 Pre-Assessment Diagnosis/Proposed Procedure Planned Operative Procedure(s): Exploratory laparotomy, removal of mesh, possible bowel resection. 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 When Was Last Pacemaker Check QUESTION #4 FULL TEXT: You/Your Family Experience fever (hyperthermia) with Anesthesia Last Oral Intake Last Oral intake: Last Oral Intake NPO since 00:00 11/04/24 10:20 Meds taken in AM with sips of Yes 11/04/24 10:20 water? Meds patient instructed to Coreg & Protonix 11/04/24 10:20 take am of surgery PONV PONV - social media designer: PONV - social media designer Female HX of Motion Sickness HX of N/V After Surgery Non-Smoker Duration of Surgery greater than 60 minutes Number of Risk Factors PONV Score Height & Weight Height & Weight: Anesthesia: Height & Weight Height 5 ft 6 in 11/04/24 10:20 Weight: 111.13 kg 11/04/24 10:20 Body Mass Index (BMI) 39.5 11/04/24 10:20 Respiratory Assessment Respiratory Assessment - social media designer: Respiratory Tract Infection Hx - social media designer Hx Respiratory Tract Infection No 11/04/24 07:18 STOP Sleep Apnea STOP Sleep Apnea - social media designer: STOP Sleep Apnea - social media designer Hx Hypertension Yes 10/27/24 12:11 Hx Sleep Apnea Yes 10/23/24 17:06 CPAP No: pt refuses 10/23/24 17:06 BIPAP No: pt refuses 10/23/24 17:06 Do you snore loudly (louder than talking or can be heard Do you often feel tired/ fatigued/ sleepy during daytime? Has anyone observed you stop breathing during sleep? STOP Results Positive 10/23/24 17:06 QUESTION #5 FULL TEXT : Do you snore loudly (louder than talking or can be heard through closed doors)? 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 Specify any problems Hx of Preganancy in last 3 No 10/23/24 17:06 Months Nurse Filling Out Transfusion EBOOTHE 10/23/24 17:06 & Questions: Date: 10/23/24 10/23/24 17:06 Time: 17:11 10/23/24 17:06 Patient unable to answer at this time (ie. confused, unrespo /Reproduction History /Reproductive History - social media designer: /Reproductive Hx- social media designer Hx Now No 11/04/24 07:18 Gestational Age (in weeks): EDC: Hx Hx Para Hx Section SAB No 11/04/24 07:18 Active Medications Active Medications: Current Medications Generic Name Dose Route Start Last Admin Trade Name Freq PRN Reason Stop Dose Admin Acetaminophen 650 mg 10/23/24 16:41 10/30/24 16:11 Acetaminophen 325 Mg Tablet PO 650 mg Q6H PRN PRN Administration Pain Score 1-10 Albuterol Sulfate 2.5 mg 10/26/24 16:32 10/29/24 12:50 Albuterol 2.5 Mg/3 Ml Vial.Neb. INHALATION 2.5 mg Q2H PRN PRN Administration SHORTNESS OF BREATH Apixaban 5 mg 10/25/24 10:00 11/03/24 09:09 Apixaban 5 Mg Tablet PO 5 mg BID MARK Administration Atorvastatin Calcium 80 mg 10/23/24 22:00 11/03/24 21:25 Atorvastatin Calcium 80 Mg Tablet PO 80 mg QHS MARK Administration Benzonatate 200 mg 10/25/24 07:59 Benzonatate 100 Mg Capsule PO TID PRN cough Calamine/Phenol 1 applic 10/23/24 22:00 11/04/24 05:10 Menthol/Lanolin/Calamine/Znox 113 Gm Tube TOPICAL 1 applic TID MARK Administration Protocol Carvedilol 25 mg 11/03/24 08:00 11/04/24 09:06 Carvedilol 25 Mg Tablet PO 25 mg BIDCM MARK Administration Protocol Furosemide 40 mg 10/30/24 10:35 11/04/24 07:32 Furosemide 40 Mg/4 Ml Vial IV Not Given BID@1000,1800 MARK Glucagon 1 mg 10/23/24 16:41 Glucagon 1 Mg/Ml Syringe IM X1 PRN Hypoglycemia Protocol Dextrose 250 mls @ 0 mls/hr 10/23/24 16:41 10/24/24 13:38 Dextrose 10%-Water IV Infused .Q0M PRN Infusion HYPOGLYCEMIA Protocol As Directed Sodium Chloride 100 mls @ 15 mls/hr 10/23/24 17:14 11/03/24 16:57 IV Infused .Q6H40M PRN Infusion Saline Flush Sodium Chloride 100 mls @ 15 mls/hr 10/23/24 17:14 IV .Q6H40M PRN Additional IVPB Infusion Sodium Chloride 100 mls @ 15 mls/hr 10/24/24 17:00 IV .Q6H40M PRN Saline Flush Sodium Chloride 100 mls @ 15 mls/hr 10/24/24 17:00 IV .Q6H40M PRN Additional IVPB Infusion Ceftriaxone Sodium 1 gm in 50 mls @ 100 mls/hr 10/30/24 08:20 11/04/24 11:31 Rocephin IV Infused Q24 MARK Infusion Fluconazole 200 mg in 100 mls @ 100 mls/hr 10/31/24 10:00 11/04/24 11:31 IV Infused Q24 MARK Infusion Metronidazole 500 mg in 100 mls @ 100 mls/hr 11/03/24 14:15 11/04/24 06:12 Flagyl IV Infused Q8 MARK Infusion Vancomycin HCl 1,000 mg in 200 mls @ 200 mls/hr 11/04/24 07:00 11/04/24 09:54 Vancomycin IV Infused Q24H MARK Infusion Sodium Chloride 1,000 mls @ 15 mls/hr 11/04/24 13:10 IV .Q48H MARK Insulin Human Lispro 0 unit 10/25/24 11:00 11/04/24 11:10 Insulin Lispro 100 Unit/Ml Insuln.Pen SC Not Given ACHS MARK Protocol Nutritional Formula (Lactose Free) 120 ml 10/27/24 17:00 11/04/24 11:11 Glucerna Shake 120 Ml Liquid PO Not Given TIDCM MARK Nystatin 1 applic 10/23/24 22:00 11/04/24 05:10 Nystatin Powder 15gm Bottle TOPICAL 1 applic TID [facility] Administration Protocol Ondansetron HCl 4 mg 10/23/24 16:41 Ondansetron 4 Mg/2 Ml Vial IV Q8H PRN PRN NAUSEA Pantoprazole Sodium 20 mg 10/25/24 10:00 11/04/24 09:07 Pantoprazole Sodium 20 Mg Tablet PO 20 mg DAILY MARK Administration Sodium Chloride 10 - 40 ml 10/23/24 17:14 11/04/24 10:37 0.9% Saline Lock 10 Ml Syringe IV 10 ml UD PRN Administration SALINE FLUSH Sodium Chloride 10 - 40 ml 10/24/24 17:00 11/03/24 09:07 0.9% Saline Lock 10 Ml Syringe IV 10 ml UD PRN Administration SALINE FLUSH Tramadol HCl 50 mg 10/28/24 13:42 10/31/24 19:50 Tramadol 50 Mg Tablet PO 50 mg Q6H PRN PRN Administration Pain Score 4-10 Vancomycin Protocol 1 lab 11/06/24 05:30 Vancomycin Trough/Random Due MC 11/06/24 07:30 DAILY [facility] Medical History (Updated 11/03/24 @ 09:[address] Bryce Felder, DO) Hernia, ventral History of atrial fibrillation Abdominal pain Neuropathic pain Essential (primary) hypertension Cognitive dysfunction ESBL (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 coli infection Wears glasses Former smoker Obesity Ambulates with cane Stroke/cerebrovascular accident Difficulty in walking Poor historian Recurrent incisional hernia with incarceration Incarcerated ventral hernia Obstructive sleep apnea Atrial fibrillation Intraventricular hemorrhage Embolic stroke GERD (gastroesophageal reflux disease) Obesity (BMI 30-39.9) Hyperlipidemia Hypertension Diabetes mellitus Home Medications ?Medication ?Instructions ?Recorded ?Last Taken ?Type omeprazole 20 mg capsule,delayed 20 mg PO DAILY GERd 05/29/14 06/08/24 History release amlodipine 10 mg tablet (Norvasc) 10 mg PO QHS HTN 10/04/16 06/07/24 History apixaban 5 mg tablet (Eliquis) 5 mg PO BID blood thinner 10/04/16 11/03/24 History Held on 10/24/24. Instructions: Resume on 10/26/24. atorvastatin 80 mg tablet 80 mg PO QHS Cholesterol 10/25/16 06/07/24 Rx lisinopril 40 mg tablet 40 mg PO DAILY HTN 10/25/16 06/08/24 Rx pioglitazone 15 mg tablet 15 mg PO DAILY DM #30 tabs 10/09/22 06/08/24 Rx gabapentin 600 mg tablet 600 mg PO BID Nerve Pain 01/01/24 06/08/24 History multivitamin with folic acid 400 1 tab PO DAILY Supplement 05/14/24 06/08/24 History mcg tablet (Daily-Levon (with folic acid)) carvedilol 25 mg tablet 25 mg PO BID BP #60 tabs 05/19/24 06/08/24 Rx dapagliflozin propanediol 10 mg 10 mg PO DAILY diabetes #30 tabs 06/27/24 Unknown Rx tablet (Farxiga) insulin glargine 100 unit/mL (3 15 unit (0.15 mL) subcut BIDCM DM 06/27/24 Unknown Rx mL) subcutaneous pen (Lantus #5 pens Solostar U-100 Insulin) sennosides 8.6 mg-docusate sodium 1 tab PO BID #60 tabs 06/27/24 Unknown Rx 50 mg tablet (Stimulant Laxative Plus) benzonatate 200 mg capsule 200 mg PO TID PRN cough 10/23/24 Unknown History cholecalciferol (vitamin D3) 50 50 mcg PO DAILY 10/23/24 Unknown History mcg (2,000 unit) capsule dulaglutide 4.5 mg/0.5 mL 4.5 mg subcut QWEEK 10/23/24 Unknown History subcutaneous pen injector (Trulicity) glipizide 10 mg tablet 10 mg PO BID 10/23/24 Unknown History metformin 500 mg tablet 500 mg PO BID 10/23/24 Unknown History naproxen 500 mg tablet 500 mg PO BID 10/23/24 Unknown History nystatin 100,000 unit/gram topical 1 applic topical BID 10/23/24 Unknown History powder (Nyamyc) oxycodone 5 mg capsule 5 mg PO Q6H PRN pain 3 days #10 10/24/24 Unknown Rx caps Allergy/AdvReac Type Severity Reaction Status Date / Time iodine Allergy Mild Itching Verified 10/23/24 09:29 Penicillins Allergy Mild Itching Verified 10/23/24 09:29 Family History Father CVA (cerebral vascular accident) Mother Diabetes Stomach cancer Other High cholesterol Hypertension Surgical History (Updated 11/04/24 @ 08:[address] An Shah MD) History of cholecystectomy Hx of colonoscopy Status post debridement History of hysterectomy S/P repair of ventral hernia Social History household members: none Smoking Status: Former smoker alcohol intake: never substance use type: does not use caffeine: Yes what type of physical activity do you participate in: walking frequency: daily Review of Systems (Anesthesia) ROS Narrative System reviewed and no additional complaints, except as documented.
[2024-11-04] MEDS: 0.9% Normal Saline (1000mL) 1,000 ML 15 ML IV (13:22)
--- NOTE | 2024-11-04 14:10 | COL_PTH ---
PATIENT: ZOIE DE LA PAZ LOC: [facility] U#:[id number] AGE/SX: 68/F ROOM: [facility] RE10/23/[address]: Dr. An Shah MD : 1955 BED: 1 DIS: 11/15/2024 SPEC #: [id number] RECD: 11/04/24 16:40 STATUS: RADHA REAramis #: [id number] TOEN: 11/04/24 14:[address]: An Shah DEPT: SURGICAL PATHOLOGY RECD BY: Radha Macias ENTERED: 11/05/24 08:45 SP TYPE: COLON OTHR DR: MD Dr. Bryce Davis DO Dr. Marc Fiorentino, MD Dr. Mark Stutzman, DO Dr. Nagapradee Nagajothi, MD Dr. Paige Pierce, MD Tissues: A - Colon, NOS Procedures: Surgery Specimen Level V HEADER A. OPERATION: Laparotomy, removal mesh, drains, SB resection PRE-OP DIAGNOSIS: Possible bowel fistula TISSUE SUBMITTED: A- Small bowel segment MICROSCOPIC DIAGNOSIS A. Small bowel, possible fistula, segmental resection: * Full-thickness defect with acute inflammation and fibrosis, consistent with fistula. * Acute inflammation, serosal adhesions. * Viable end resection margins. MICROSCOPIC DESCRIPTION Slides are reviewed. GROSS DESCRIPTION A. Received in formalin in a container labeled with the patient's name, date of , and small bowel segment is an unoriented segment of small bowel with 2 stapled margins, measuring 7.7 cm in length with a diameter up to 4.7 cm. The serosa exhibits dense samaniego-brown, shaggy adhesions with a 0.3 x 0.3 cm transmural defect (inked blue). The transmural defect is situated 2.0 cm from one stapled margin and 4.5 cm from the opposing stapled margin. Adjacent to the defect is white-whitney possible exudate. The specimen is opened to reveal red-samaniego, inflammatory-appearing mucosa surrounding the area of the defect. The remaining mucosa is samaniego-pink and velvety with typical transverse folding pattern. There is an average wall thickness of 0.5 cm. No mass-like lesion is grossly recognized. Bioinformatics Technician sections:A1. Closest stapled margin to transmural defect, en faceA2. Furthest stapled margin to transmural defect, en faceA3-4. Transmural defectA5. Area of dense adhesions [facility] 11-05-2024 CPT:80763
[2024-11-04] MEDS: DAKIN'S SOL HALF STRENGTH (=0.25%) TOPICAL (16:11)
--- NOTE | 2024-11-04 16:13 | PCM.HOSP.N ---
Hospitalist Note Went to check on patient several times, but was off the floor. Will follow up 11/05.
--- NOTE | 2024-11-04 16:15 | PCM.OPRPT ---
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 Sterilization Specialist: Heri Robin Tasks completed by patient services assistant: Opening, Removing tissue and Retracting Additional food trades assistants?: Yes Additional Library Information Technician #2: Kim Lloyd Tasks completed by food trades assistants #2: Closing and Retracting Type of Anesthesia: General/Supplemental RN Documented Start/Stop Times: Operation Date: 11/04/24 14:10 Case Time Into Pre-Op 11/04/24 13:00 Anesthesia Start 11/04/24 13:54 Into Room 11/04/24 13:55 Procedure Start 11/04/24 14:12 Procedure End 11/04/24 16:17 Anesthesia End 11/04/24 16:29 Out of Room 11/04/24 16:29 Into Recovery 11/04/24 16:31 Out of Recovery 11/04/24 17:22 Procedure Start Time: 14:12 Procedure Stop Time: 16:17 Select all DRAINS/GRAFTS/IMPLANTS that apply: Drains Drain details: JERRI 15 Mongolian Special Medications: On Flagyl, vancomycin, ceftriaxone on the floor for wound infection Estimated Blood Loss: 100 cc Specimen collected: Yes Description of specimen(s) removed: Small bowel segment Description of surgery: Indications: 68-year-old female initially admitted due to a bowel obstruction from ventral hernia which was reduced. Patient underwent a hernia pair with mesh?postoperatively patient had wound infection and was recently found to have greenish drainage from the wound. Plan for exploratory laparotomy, bowel resection. Description of procedure: Patient was brought operating placed upon operating table. Timeout was completed correct patient, procedure, site, positioning, special equipment prior began procedure. General anesthesia was induced. Abdomen was prepped draped in sterile fashion with Betadine at the open wound and chlorhexidine at the intact skin. Larger midline incision was made with 10 blade scalpel. This was deepened to the fascia with electrocautery. Previous mesh was removed and sent to pathology. A large amount of pus underneath the mesh abdominal cavity which was suctioned. Previous mesh inferior to the current hernia site was well incorporated. Lysis of adhesions were done for about an hour due to tight adhesions between the small bowel and inferior mesh. Once the small bowel was freed PRERNA 75 stapler x 2 divide the segment of perforated small bowel. Anastomosis was performed between the antimesenteric borders of the small bowel using the PRERNA 75 stapler and TX 60. 3-0 silk placed at the crotch stitch. Abdomen was irrigated with copious amounts of saline. 15 Mongolian round JERRI was placed exiting the left abdomen sitting underneath the incision. The previous wound cavity that extended to the right inferior abdomen incision in the subcutaneous tissue was also debrided about 15 cm x 12 cm and depth of 3 cm. Fascia was closed with multiple interrupted #1 Prolene [id number] sutures. Dakin soaked Kerlix was placed over the wound. ABD pads and tape and abdominal binder was placed. Patient was extubated. Patient tolerated procedure well was taken to the postanesthesia care in stable condition. Surgical Findings: Small bowel fistula just inferior to the hernia site. Complications Complications: No
--- NOTE | 2024-11-04 16:36 | PCM.POST.ANE ---
Anesthesia: Postop Eval I Current Vital Signs Temperature: 98 F Pulse Rate: 73 Blood Pressure: 112/59 Respiratory Rate: 15 Pulse Ox: 98 Oxygen Delivery Method: Nasal Cannula Oxygen Flow Rate (L/min): 4 Assessment Airway patent: Yes Spontaneous unlabored respirations: Yes Mental status: Awake and Calm nausea: No Vomiting: No Anesthesia Complication: No Fluid Hydration Crystalloid volume administer (ml): 600 Total IV fluid infused: 600 Progress Note Anesthesia document: Postop Eval 1 completed: Yes
[2024-11-04] MEDS: Furosemide 40 MG/4 ML Vial IV (17:44)
[2024-11-04 18:08] LABS: Bedside Glucose 261 mg/dL (74-106)
[2024-11-04 20:20] LABS: Bedside Glucose 255 mg/dL (74-106)
--- NOTE | 2024-11-04 20:41 | ANES.CONFIRM ---
Anesthesia: Confirm Documents Multiple Procedures on Account (2) Confirmed Documents: Yes
[2024-11-05 03:00] VITALS: BP 120/45; PULSE 76; RESP 16; TEMP 36.3; O2SAT 96
[2024-11-05] MEDS: 0.9% Saline Lock 10 ML Syringe IV (04:59)
[2024-11-05] MEDS: Menthol/Lanolin/Calamine/Znox 113 GM Tube 1 APPLIC TOPICAL ×3 (04:59→23:11)
[2024-11-05] MEDS: metroNIDAZOLE 500 MG/100 ML BAG 100 MG IV ×3 (04:59→23:11)
[2024-11-05] MEDS: Nystatin Powder 15gm Bottle 1 APPLIC TOPICAL ×3 (05:00→23:12)
[2024-11-05] MEDS: Vancomycin IV 1,000 MG/200 ML BAG 200 MG IV (06:00)
[2024-11-05 06:41] LABS: Bedside Glucose 240 mg/dL (74-106)
[2024-11-05 06:58] LABS: Anion Gap 8 (5-15); BUN 52 mg/dL (4-19); BUN/Creat Ratio 31.4 RATIO (10-20); Calcium,Total 9.7 mg/dL (7.6-11.0); Carbon Dioxide 25.8 mmol/L (21.0-32.0); Chloride 105 mmol/L (98-108); Creatinine, Serum 1.64 mg/dL (0.70-1.20); EST Glomerular Filtration Rate 34 (>60); Glucose 272 mg/dL (70-99); Potassium 4.9 mmol/L (3.3-5.1); Sodium Level 139 mmol/L (133-145)
[2024-11-05 07:07] LABS: Absolute Lymphocyte Count 0.55 X10^3/uL (0.83-4.51); Absolute Neutrophil Count 12.3 X10^3/uL (2.0-7.7); Basophil# 0.02 X10^3/uL; Basophil% 0.1 % (0-1); Hemoglobin 9.2 g/dL (12.0-15.0); Lymphocyte # 0.55 X10^3/ul (0.83-4.51); Mean Corp Hgb Conc 30.7 g/dL (32-36); Mean Corpuscular Hgb 24.1 pg (27.0-32.0); Mean Corpuscular Volume 78.5 fL (81-99); Monocyte% 4.4 % (0-10); NRBC Flagged by Analyzer 0.2 % (0-5); Neutrophil % 90.3 % (47-70); POSITIVE DIFFERENTIAL YES; POSITIVE MORPHOLOGY YES; Platelet Count 319 K/mm3 (150-450); RBC Distribution Width CV 20.4 % (11.6-14.6); RBC Distribution Width SD 58.3 fl (35.1-43.9); Red Blood Count 3.82 M/mm3 (4.2-5.4); White Blood Count 13.6 K/mm3 (4.4-11.0)
[2024-11-05 07:13] LABS: Differential Indicated SCAN CRITERIA MET
[2024-11-05 07:35] VITALS: O2SAT 96
[2024-11-05 08:10] LABS: Toxic Granulation 1+
[2024-11-05 08:19] VITALS: BP 127/56; PULSE 72; RESP 16; TEMP 36.2; O2SAT 99
[2024-11-05] MEDS: Pantoprazole Sodium 20 MG Tablet PO (08:40)
[2024-11-05] MEDS: Carvedilol 25 MG Tablet PO ×2 (08:41→17:10)
--- NOTE | 2024-11-05 09:47 | PCM.PN.SRG ---
Subjective Subjective Patient evaluated resting comfortably in bed. She notes discomfort at the wound site. She is more lethargic this morning. Objective Data Objective Data Vital Signs: Vital Signs Temp Pulse Resp BP Pulse Ox O2 Del Method O2 Flow Rate 97.2 F L 72 16 127/56 H 99 Nasal Cannula 2 11/05/24 08:19 11/05/24 08:19 11/05/24 08:19 11/05/24 08:19 11/05/24 08:19 11/05/24 09:34 11/05/24 09:34 Oxygen Flow Rate (L/min) 2 Oxygen Delivery Method Nasal Cannula Weight: 244 lb 15.995 oz Body Mass Index (BMI) 39.5 Intake & Output: Intake and Output for Last 24 Hours 11/03/24 11/04/24 11/05/24 23:59 23:59 23:59 Intake Total 1215 / 1215 649.25 / 649.25 1200.75 / 1200.75 Output Total 1700 / 1870 740 / 740 Balance -485 / -655 -90.75 / -90.75 1180.75 / 1180.75 Lab / Micro Data 11/05/24 06:12 11/05/24 06:12 Labs: Laboratory Results - last 24 hr 11/04/24 11:58: POC Glucose 235 H 11/04/24 17:43: POC Glucose 261 H 11/04/24 19:48: POC Glucose 255 H 11/05/24 06:12: WBC 13.6 H, RBC 3.82 L, Hgb 9.2 L, Hct 30.0 L, MCV 78.5 L, MCH 24.1 L, MCHC 30.7 L, RDW Std Deviation 58.3 H, RDW Coeff of Faby 20.4 H, Plt Count 319, MPV 10.0, Immature Gran % (Auto) 1.200 H, Neut % (Auto) 90.3 H, Lymph % (Auto) 4.0 L, [place] % (Auto) 4.4, Eos % (Auto) 0.0, Baso % (Auto) 0.1, Absolute Neuts (auto) 12.3 H, Absolute Lymphs (auto) 0.55 L, Nucleated RBC % 0.2, Toxic Granulation 1+, Sodium 139, Potassium 4.9, Chloride 105, Carbon Dioxide 25.8, Anion Gap 8, BUN 52 H, Creatinine 1.64 H, Estim Creat Clear Calc 40.90 L, Est GFR (MDRD) Non-Af 34 L, BUN/Creatinine Ratio 31.4 H, Glucose 272 H, Calcium 9.7 11/05/24 06:20: POC Glucose 240 H Micro: Microbiology 11/04/24 Unknown Wound Abcess - Other Wound Culture - Preliminary No growth-Final to follow 10/30/24 10:46 Aspirate - Abdominal Gram Stain - Final 10/30/24 10:46 Aspirate - Abdominal Wound Culture - Final Presumptive C albicans Enterococcus faecalis 10/30/24 10:46 Aspirate - Abdominal Anaerobic Culture - Final No anaerobic bacteria isolated. 10/28/24 09:05 Wound Abcess - Abdominal Gram Stain - Final 10/28/24 09:05 Wound Abcess - Abdominal Wound Culture - Final Escherichia coli Presumptive C albicans 10/28/24 09:05 Wound Abcess - Abdominal Anaerobic Culture - Final No anaerobic bacteria isolated. 10/26/24 12:42 Blood Culture (Wb) - Left Hand Blood Culture - Final No growth in 5 days. 10/26/24 11:55 Blood Culture (Wb) - Other Blood Culture - Final No growth in 5 days. 10/25/24 06:05 Blood Culture (Wb) - Anticubital Left Blood Culture - Final Staphylococcus epidermidis 10/25/24 06:00 Blood Culture (Wb) - Anticubital Right Bacteria Detection (PCR) - Final Staphylococcus epidermidis mecA Resistance Marker 10/25/24 06:00 Blood Culture (Wb) - Anticubital Right Blood Culture - Final Gram positive organism Physical Exam GI GI Narrative: Abdomen- obese, right sided open wound with samaniego and intermittent pink tissue noted throughout the wound bed. There was a moderate amount of bloody/samaniego drainage on the kerlix. Wound tunnels to the right lateral side approximately 12.5 cm. Wound was packed with Dakins dampened kerlix and covered with dry gauze and ABD pad. JERRI drain dressing was changed. JERRI drain with serosangieous drainage noted. Assessment & Plan Assessment/Plan (1) Postoperative wound infection: PLAN: I am following this patient in conjunction with Dr. Shah. She will independently evaluate this patient. Labs reviewed. WBC 13.6 Wound with a moderate amount of slough. Recommend Dakins dressing change in the AM, Saline dressing change in the PM and saline dressing change management facilitator night. (TID dressing changes) Possibly wound vac candidate in the near future. Encourage patient to be sitting up in a chair and working on ambulation. Encourage I.S. Continue IV antibiotics per ID recommendations Continue NPO and await bowel function We will continue to monitor this patient Charges/Coding Visit Charges Inpatient E&M: 23746 Subs Hosp L1 (post-op; no charge)
[2024-11-05] MEDS: Ceftriaxone 1 GM/50 ML BAG IV (10:26)
[2024-11-05] MEDS: Furosemide 40 MG/4 ML Vial IV (10:26)
--- NOTE | 2024-11-05 11:00 | WOUNDNOTE ---
wound photo: right abdomen
[2024-11-05] MEDS: Fluconazole IVPB 200 MG/100 ML BAG 100 MG IV (11:30)
[2024-11-05 12:08] LABS: Bedside Glucose 244 mg/dL (74-106)
[2024-11-05] MEDS: Lactated Ringers 1,000 ML 100 ML IV ×2 (13:21→23:10)
--- NOTE | 2024-11-05 13:22 | PCM.PN.ID ---
Physical Exam Narrative Feeling ok, wants to drink, no fever, some abd soreness. Const alert and no apparent distress General Appearance: cooperative Resp normal air movement and clear to auscultation bilaterally Cardio regular rate and regular rhythm GI soft to palpation and non-distended GI Narrative: mild soreness, drain in place Skin no rashes or lesions noted ID ID: Route of nutrition/ use of supplements: [] Nutritional Intake: [] IV Site: [] Koo Catheter: [] Assessment & Plan Assessment/Plan (1) Postoperative wound infection: PLAN: OR again 11/04/24 with drainage of purulence and partial small bowel resection, cxs pending. Continue vanc, ceftriaxone, flagyl, and fluconazole. Will follow
--- NOTE | 2024-11-05 13:30 | PN.HOSP_ITS ---
Reason for Visit Reason for Visit: Diagnoses Other acute postprocedural pain (10/23/24) Essential (primary) hypertension (10/23/24) Unspecified atrial fibrillation (10/23/24) Hypotension, unspecified (10/23/24) Incisional hernia with obstruction, without gangrene (10/23/24) Incisional hernia without obstruction or gangrene (10/23/24) Other and unspecified ventral hernia with obstruction, without gangrene (10/23/24) Ventral hernia without obstruction or gangrene (10/23/24) Dyspnea, unspecified (10/23/24) Bacteremia (10/23/24) Infection following a procedure, other surgical site, initial encounter (10/23/24) 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 Objective Data Objective Data Vital Signs: Vital Signs Temp Pulse Resp BP Pulse Ox O2 Del Method O2 Flow Rate 36.2 C L 72 16 127/56 H 99 Nasal Cannula 2 11/05/24 08:19 11/05/24 08:19 11/05/24 08:19 11/05/24 08:19 11/05/24 08:19 11/05/24 09:34 11/05/24 09:34 Oxygen Flow Rate (L/min) 2 Oxygen Delivery Method Nasal Cannula Weight: 111.13 kg Body Mass Index (BMI) 39.5 Intake & Output: Intake and Output for Last 24 Hours 11/03/24 11/04/24 11/05/24 23:59 23:59 23:59 Intake Total 1215 / 1215 649.25 / 649.25 1350.75 / 1350.75 Output Total 1700 / 1870 740 / 740 20 / 20 Balance -485 / -655 -90.75 / -90.75 1330.75 / 1330.75 Lab / Micro Data 11/05/24 06:12 11/05/24 06:12 Labs: Laboratory Results - last 24 hr 11/04/24 17:43: POC Glucose 261 H 11/04/24 19:48: POC Glucose 255 H 11/05/24 06:12: WBC 13.6 H, RBC 3.82 L, Hgb 9.2 L, Hct 30.0 L, MCV 78.5 L, MCH 24.1 L, MCHC 30.7 L, RDW Std Deviation 58.3 H, RDW Coeff of Faby 20.4 H, Plt Count 319, MPV 10.0, Immature Gran % (Auto) 1.200 H, Neut % (Auto) 90.3 H, Lymph % (Auto) 4.0 L, [place] % (Auto) 4.4, Eos % (Auto) 0.0, Baso % (Auto) 0.1, Absolute Neuts (auto) 12.3 H, Absolute Lymphs (auto) 0.55 L, Nucleated RBC % 0.2, Toxic Granulation 1+, Sodium 139, Potassium 4.9, Chloride 105, Carbon Dioxide 25.8, Anion Gap 8, BUN 52 H, Creatinine 1.64 H, Estim Creat Clear Calc 40.90 L, Est GFR (MDRD) Non-Af 34 L, BUN/Creatinine Ratio 31.4 H, Glucose 272 H, Calcium 9.7 11/05/24 06:20: POC Glucose 240 H 11/05/24 11:37: POC Glucose 244 H Micro: Microbiology 11/04/24 Unknown Wound Abcess - Other Wound Culture - Preliminary No growth-Final to follow 10/30/24 10:46 Aspirate - Abdominal Gram Stain - Final 10/30/24 10:46 Aspirate - Abdominal Wound Culture - Final Presumptive C albicans Enterococcus faecalis 10/30/24 10:46 Aspirate - Abdominal Anaerobic Culture - Final No anaerobic bacteria isolated. 10/28/24 09:05 Wound Abcess - Abdominal Gram Stain - Final 10/28/24 09:05 Wound Abcess - Abdominal Wound Culture - Final Escherichia coli Presumptive C albicans 10/28/24 09:05 Wound Abcess - Abdominal Anaerobic Culture - Final No anaerobic bacteria isolated. 10/26/24 12:42 Blood Culture (Wb) - Left Hand Blood Culture - Final No growth in 5 days. 10/26/24 11:55 Blood Culture (Wb) - Other Blood Culture - Final No growth in 5 days. 10/25/24 06:05 Blood Culture (Wb) - Anticubital Left Blood Culture - Final Staphylococcus epidermidis 10/25/24 06:00 Blood Culture (Wb) - Anticubital Right Bacteria Detection (PCR) - Final Staphylococcus epidermidis mecA Resistance Marker 10/25/24 06:00 Blood Culture (Wb) - Anticubital Right Blood Culture - Final Gram positive organism Physical Exam Const alert and no apparent distress HEENT head/scalp atraumatic Resp Resp Narrative: coarse breath sounds bilaterally. Cardio regular rate, regular rhythm, S1 normal heart sound and S2 normal heart sound GI Auscultation: hypoactive bowel sounds Palpation: tender Neuro Sensorium / Orientation: awake and alert Assessment & Plan Assessment/Plan (1) Bacteremia: PLAN: Plan JEANNE: * agree with IVF * DC furosemide. Acute HFpEF * EF 65%. * Furosemide held given JEANNE. Monitor SBO * seen on CT from 11/03. * s/p SANDRINE on 11/04. * mgmt/diet per general surgery Bacteremia/Post op wound infection: * Staph epi positive on the 10/25. Repeats on 10/26 were negative. * on vancomycin, CTX, metronidazole * ID following. afib: * carvedilol * apixaban Chronic conditoins: * DM2: NPO. On SSI. * HTN: meds held * Obesity Class II: complicates care and recovery. VTE prophylaxis: not indicated as already anticoagulated. Charges/Coding Visit Charges Inpatient E&M: 35840 Subs Hosp L2
[2024-11-05 16:04] VITALS: BP 119/45; PULSE 85; RESP 16; TEMP 35.8; O2SAT 98
[2024-11-05 16:24] LABS: Bedside Glucose 249 mg/dL (74-106)
[2024-11-05 22:00] VITALS: BP 114/54; PULSE 80; RESP 16; TEMP 36.4; O2SAT 99
[2024-11-05] MEDS: Atorvastatin Calcium 80 MG Tablet PO (23:12)
[2024-11-05] MEDS: traMADol 50 MG Tablet PO (23:12)
[2024-11-06 00:04] LABS: Bedside Glucose 231 mg/dL (74-106)
[2024-11-06 04:00] VITALS: BP 113/55; PULSE 80; RESP 18; TEMP 36.6; O2SAT 97
[2024-11-06] MEDS: Vancomycin Trough/Random Due 1 LAB MC (06:32)
[2024-11-06 07:04] LABS: Vancomycin, Trough Level 24.2 ug/mL (5.0-15.0)
[2024-11-06] MEDS: Nystatin Powder 15gm Bottle 1 APPLIC TOPICAL ×3 (07:05→20:58)
[2024-11-06] MEDS: Menthol/Lanolin/Calamine/Znox 113 GM Tube 1 APPLIC TOPICAL ×3 (07:05→20:57)
[2024-11-06] MEDS: metroNIDAZOLE 500 MG/100 ML BAG 100 MG IV ×3 (07:05→21:04)
[2024-11-06 07:14] LABS: Absolute Lymphocyte Count 0.66 X10^3/uL (0.83-4.51); Absolute Neutrophil Count 7.4 X10^3/uL (2.0-7.7); Basophil# 0.01 X10^3/uL; Basophil% 0.1 % (0-1); Eosinophil# 0.01 X10^3/uL; Eosinophils% 0.1 % (0-5); Hematocrit 25.7 % (37-47); Hemoglobin 7.9 g/dL (12.0-15.0); Lymphocyte # 0.66 X10^3/ul (0.83-4.51); Lymphocyte % 7.6 % (19-41); Mean Corp Hgb Conc 30.7 g/dL (32-36); Mean Corpuscular Hgb 24.2 pg (27.0-32.0); Mean Corpuscular Volume 78.8 fL (81-99); Mean Platelet Vol. 9.8 fl (6.2-12.0); Monocyte# 0.49 X10^3/uL; Monocyte% 5.6 % (0-10); NRBC Flagged by Analyzer 0 % (0-5); Neutrophil # 7.42 X10^3/uL (2.7-7.7); Neutrophil % 85.6 % (47-70); POSITIVE MORPHOLOGY YES; Platelet Count 303 K/mm3 (150-450); RBC Distribution Width CV 20.3 % (11.6-14.6); RBC Distribution Width SD 58.4 fl (35.1-43.9); Red Blood Count 3.26 M/mm3 (4.2-5.4); White Blood Count 8.7 K/mm3 (4.4-11.0)
[2024-11-06 07:23] LABS: Bedside Glucose 203 mg/dL (74-106)
[2024-11-06 07:33] LABS: Differential Indicated SCAN CRITERIA MET
[2024-11-06 07:45] LABS: Differential Comment SCANNED
--- NOTE | 2024-11-06 08:05 | PCM.PN.SRG ---
Subjective Subjective Patient evaluated resting comfortably in bed. She notes discomfort at the wound site. She is slightly more alert this morning. Objective Data Objective Data Vital Signs: Vital Signs Temp Pulse Resp BP Pulse Ox O2 Del Method O2 Flow Rate 97.8 F 80 18 113/55 L 97 Nasal Cannula 2 11/06/24 04:00 11/06/24 04:00 11/06/24 04:00 11/06/24 04:00 11/06/24 04:00 11/06/24 04:00 11/06/24 04:00 Oxygen Flow Rate (L/min) 2 Oxygen Delivery Method Nasal Cannula Weight: 244 lb 15.995 oz Body Mass Index (BMI) 39.5 Intake & Output: Intake and Output for Last 24 Hours 11/04/24 11/05/24 11/06/24 23:59 23:59 23:59 Intake Total 649.25 / 649.25 2432.42 / 2432.42 100 / 100 Output Total 740 / 740 420 / 770 550 / 550 Balance -90.75 / -90.75 2012.42 / 1662.42 -450 / -450 Lab / Micro Data 11/06/24 06:59 11/06/24 06:59 Labs: Laboratory Results - last 24 hr 11/05/24 06:12: Toxic Granulation 1+ 11/05/24 11:37: POC Glucose 244 H 11/05/24 16:01: POC Glucose 249 H 11/05/24 23:09: POC Glucose 231 H 11/06/24 06:32: Vancomycin Trough 24.2 H 11/06/24 06:59: WBC 8.7, RBC 3.26 L, Hgb 7.9 L, Hct 25.7 L, MCV 78.8 L, MCH 24.2 L, MCHC 30.7 L, RDW Std Deviation 58.4 H, RDW Coeff of Faby 20.3 H, Plt Count 303, MPV 9.8, Immature Gran % (Auto) 1.000 H, Neut % (Auto) 85.6 H, Lymph % (Auto) 7.6 L, [place] % (Auto) 5.6, Eos % (Auto) 0.1, Baso % (Auto) 0.1, Absolute Neuts (auto) 7.4, Absolute Lymphs (auto) 0.66 L, Nucleated RBC % 0, Differential Comment SCANNED 04/10/25 07:04: POC Glucose 203 H Micro: Microbiology 11/04/24 Unknown Wound Abcess - Other Wound Culture - Preliminary No growth-Final to follow 10/30/24 10:46 Aspirate - Abdominal Gram Stain - Final 10/30/24 10:46 Aspirate - Abdominal Wound Culture - Final Presumptive C albicans Enterococcus faecalis 10/30/24 10:46 Aspirate - Abdominal Anaerobic Culture - Final No anaerobic bacteria isolated. 10/28/24 09:05 Wound Abcess - Abdominal Gram Stain - Final 10/28/24 09:05 Wound Abcess - Abdominal Wound Culture - Final Escherichia coli Presumptive C albicans 10/28/24 09:05 Wound Abcess - Abdominal Anaerobic Culture - Final No anaerobic bacteria isolated. 10/26/24 12:42 Blood Culture (Wb) - Left Hand Blood Culture - Final No growth in 5 days. 10/26/24 11:55 Blood Culture (Wb) - Other Blood Culture - Final No growth in 5 days. 10/25/24 06:05 Blood Culture (Wb) - Anticubital Left Blood Culture - Final Staphylococcus epidermidis 10/25/24 06:00 Blood Culture (Wb) - Anticubital Right Bacteria Detection (PCR) - Final Staphylococcus epidermidis mecA Resistance Marker 10/25/24 06:00 Blood Culture (Wb) - Anticubital Right Blood Culture - Final Gram positive organism Physical Exam GI GI Narrative: Abdomen- obese, right sided open wound with samaniego and intermittent pink tissue noted throughout the wound bed. There was a moderate amount of bloody/samaniego drainage on the kerlix. Wound tunnels to the right lateral side approximately 12.5 cm. Wound was packed with Dakins dampened kerlix and covered with dry gauze and ABD pad. JERRI drain dressing was changed. JERRI drain with serosanguineous drainage noted. Assessment & Plan Assessment/Plan (1) Postoperative wound infection: PLAN: I am following this patient in conjunction with Dr. Shah. She will independently evaluate this patient. Labs reviewed. WBC 8.7 today Wound with a moderate amount of slough. Recommend Dakins dressing change in the AM, Saline dressing change in the PM and saline dressing change management administrator night. (TID dressing changes) Possibly wound vac candidate in the near future. Encourage patient to be sitting up in a chair and working on ambulation. Encourage I.S. Continue IV antibiotics per ID recommendations Continue NPO and await bowel function. May have ice chips. We will continue to monitor this patient Charges/Coding Visit Charges Inpatient E&M: 93905 Subs Hosp L1 (post-op; no charge)
[2024-11-06 08:26] LABS: Anion Gap 8 (5-15); BUN 61 mg/dL (4-19); BUN/Creat Ratio 32.4 RATIO (10-20); Calcium,Total 9.1 mg/dL (7.6-11.0); Carbon Dioxide 25.3 mmol/L (21.0-32.0); Chloride 106 mmol/L (98-108); Creatinine, Serum 1.89 mg/dL (0.70-1.20); EST Glomerular Filtration Rate 28 (>60); Estimated Creatinine Clearance 35.49 ml/min (50-250); Glucose 218 mg/dL (70-99); Potassium 4.3 mmol/L (3.3-5.1); Sodium Level 139 mmol/L (133-145)
[2024-11-06] MEDS: Fluconazole IVPB 200 MG/100 ML BAG 100 MG IV (08:34)
--- NOTE | 2024-11-06 08:42 | PN.HOSP_ITS ---
Reason for Visit Reason for Visit: Diagnoses Other acute postprocedural pain (10/23/24) Essential (primary) hypertension (10/23/24) Unspecified atrial fibrillation (10/23/24) Hypotension, unspecified (10/23/24) Incisional hernia with obstruction, without gangrene (10/23/24) Incisional hernia without obstruction or gangrene (10/23/24) Other and unspecified ventral hernia with obstruction, without gangrene (10/23/24) Ventral hernia without obstruction or gangrene (10/23/24) Dyspnea, unspecified (10/23/24) Bacteremia (10/23/24) Infection following a procedure, other surgical site, initial encounter (10/23/24) 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 Objective Data Objective Data Vital Signs: Vital Signs Temp Pulse Resp BP Pulse Ox O2 Del Method O2 Flow Rate 36.6 C 80 18 113/55 L 97 Nasal Cannula 2 11/06/24 04:00 11/06/24 04:00 11/06/24 04:00 11/06/24 04:00 11/06/24 04:00 11/06/24 04:00 11/06/24 04:00 Oxygen Flow Rate (L/min) 2 Oxygen Delivery Method Nasal Cannula Weight: 111.13 kg Body Mass Index (BMI) 39.5 Intake & Output: Intake and Output for Last 24 Hours 11/04/24 11/05/24 11/06/24 23:59 23:59 23:59 Intake Total 649.25 / 649.25 2432.42 / 2432.42 200 / 200 Output Total 740 / 740 420 / 770 550 / 550 Balance -90.75 / -90.75 2012.42 / 1662.42 -350 / -350 Lab / Micro Data 11/06/24 06:59 11/06/24 06:59 Labs: Laboratory Results - last 24 hr 11/05/24 11:37: POC Glucose 244 H 11/05/24 16:01: POC Glucose 249 H 11/05/24 23:09: POC Glucose 231 H 11/06/24 06:32: Vancomycin Trough 24.2 H 11/06/24 06:59: WBC 8.7, RBC 3.26 L, Hgb 7.9 L, Hct 25.7 L, MCV 78.8 L, MCH 24.2 L, MCHC 30.7 L, RDW Std Deviation 58.4 H, RDW Coeff of Faby 20.3 H, Plt Count 303, MPV 9.8, Immature Gran % (Auto) 1.000 H, Neut % (Auto) 85.6 H, Lymph % (Auto) 7.6 L, [place] % (Auto) 5.6, Eos % (Auto) 0.1, Baso % (Auto) 0.1, Absolute Neuts (auto) 7.4, Absolute Lymphs (auto) 0.66 L, Nucleated RBC % 0, Differential Comment SCANNED, Sodium 139, Potassium 4.3, Chloride 106, Carbon Dioxide 25.3, Anion Gap 8, BUN 61 H, Creatinine 1.89 H, Estim Creat Clear Calc 35.49 L, Est GFR (MDRD) Non-Af 28 L, BUN/Creatinine Ratio 32.4 H, Glucose 218 H, Calcium 9.1 11/06/24 07:04: POC Glucose 203 H Micro: Microbiology 11/04/24 Unknown Wound Abcess - Other Wound Culture - Preliminary No growth-Final to follow 10/30/24 10:46 Aspirate - Abdominal Gram Stain - Final 10/30/24 10:46 Aspirate - Abdominal Wound Culture - Final Presumptive C albicans Enterococcus faecalis 10/30/24 10:46 Aspirate - Abdominal Anaerobic Culture - Final No anaerobic bacteria isolated. 10/28/24 09:05 Wound Abcess - Abdominal Gram Stain - Final 10/28/24 09:05 Wound Abcess - Abdominal Wound Culture - Final Escherichia coli Presumptive C albicans 10/28/24 09:05 Wound Abcess - Abdominal Anaerobic Culture - Final No anaerobic bacteria isolated. 10/26/24 12:42 Blood Culture (Wb) - Left Hand Blood Culture - Final No growth in 5 days. 10/26/24 11:55 Blood Culture (Wb) - Other Blood Culture - Final No growth in 5 days. 10/25/24 06:05 Blood Culture (Wb) - Anticubital Left Blood Culture - Final Staphylococcus epidermidis 10/25/24 06:00 Blood Culture (Wb) - Anticubital Right Bacteria Detection (PCR) - Final Staphylococcus epidermidis mecA Resistance Marker 10/25/24 06:00 Blood Culture (Wb) - Anticubital Right Blood Culture - Final Gram positive organism Physical Exam Const alert and no apparent distress Constitutional Narrative: up in chair. non-toxic. afebrile. Resp normal respiratory effort, no retractions, no use of accessory muscles and clear to auscultation bilaterally Cardio regular rate, regular rhythm, S1 normal heart sound and S2 normal heart sound GI normal to inspection, nondistended, normoactive bowel sounds, soft to palpation, non-tender and non-distended Extremity normal to inspection Neuro Sensorium / Orientation: awake and alert Assessment & Plan Assessment/Plan (1) Bacteremia: PLAN: Plan JEANNE: * concern for contrast nephropathy given IV contrast on the . * worse again today * continue with IVF * If continues to worsen on 11/07 or becomes oliguric/anuric, then would likely consult nephrology * check urine studies. Check renal US. SBO * seen on CT from 11/03. * s/p SANDRINE on 11/04. * mgmt/diet per general surgery * currently NPO. Bacteremia/Post op wound infection: * Staph epi positive on the 10/25. Repeats on 10/26 were negative. * on vancomycin, CTX, metronidazole * ID following. afib: * carvedilol * apixaban ABLA * Hg down to 7.9 (was 13.7 on 10.23) * Recommend holding off transfusions unless hemoglobin 7 or less * Monitor Chronic conditoins: * DM2: NPO. On SSI. * HTN: meds held * Obesity Class II: complicates care and recovery. VTE prophylaxis: not indicated as already anticoagulated. Charges/Coding Visit Charges Inpatient E&M: 31626 Subs Hosp L2
[2024-11-06 09:14] VITALS: O2SAT 96
--- NOTE | 2024-11-06 09:34 | CASEMGMT ---
Discharge Planning Updates sent to [facility]. Nakia Hinton DC Planning Asst.
[2024-11-06] MEDS: Ceftriaxone 1 GM/50 ML BAG IV (10:19)
[2024-11-06] MEDS: 0.9% Saline Lock 10 ML Syringe IV ×2 (10:19→14:16)
[2024-11-06] MEDS: Lactated Ringers 1,000 ML 100 ML IV ×2 (10:21→20:57)
[2024-11-06 10:23] VITALS: BP 111/46; PULSE 80; RESP 18; TEMP 36.4; O2SAT 94
[2024-11-06] MEDS: Pantoprazole Sodium 20 MG Tablet PO (10:26)
[2024-11-06] MEDS: Carvedilol 25 MG Tablet PO ×2 (10:26→17:08)
[2024-11-06] MEDS: Enoxaparin 40 MG/0.4 ML Syringe SC (10:27)
--- NOTE | 2024-11-06 10:47 | PCM.RX.CS ---
Consult Antibiotic Management Pharmacy has been consulted to manage selected antibiotic: Vancomycin Type of Intervention Type of Consult: Follow-up Labs Labs: Sodium 139 mmol/L (133-145) 11/06/24 06:59 Potassium 4.3 mmol/L (3.3-5.1) 11/06/24 06:59 Chloride 106 mmol/L (98-108) 11/06/24 06:59 Carbon Dioxide 25.3 mmol/L (21.0-32.0) 11/06/24 06:59 Anion Gap 8 (5-15) 11/06/24 06:59 BUN 61 mg/dL (4-19) H 11/06/24 06:59 Creatinine 1.89 mg/dL (0.70-1.20) H 11/06/24 06:59 Est GFR (MDRD) Non-Af 28 (>60) L 11/06/24 06:59 BUN/Creatinine Ratio 32.4 RATIO (10-20) H 11/06/24 06:59 Glucose 218 mg/dL (70-99) H 11/06/24 06:59 Vancomycin Trough 24.2 ug/mL (5.0-15.0) H 11/06/24 06:32 Random Vancomycin 17.2 ug/mL (0.0-15.0) H 11/04/24 05:40 Microbiology Microbiology: Microbiology 11/04/24 Unknown Wound Abcess - Other Wound Culture - Preliminary No growth-Final to follow 10/30/24 10:46 Aspirate - Abdominal Gram Stain - Final 10/30/24 10:46 Aspirate - Abdominal Wound Culture - Final Presumptive C albicans Enterococcus faecalis 10/30/24 10:46 Aspirate - Abdominal Anaerobic Culture - Final No anaerobic bacteria isolated. 10/28/24 09:05 Wound Abcess - Abdominal Gram Stain - Final 10/28/24 09:05 Wound Abcess - Abdominal Wound Culture - Final Escherichia coli Presumptive C albicans 10/28/24 09:05 Wound Abcess - Abdominal Anaerobic Culture - Final No anaerobic bacteria isolated. 10/26/24 12:42 Blood Culture (Wb) - Left Hand Blood Culture - Final No growth in 5 days. 10/26/24 11:55 Blood Culture (Wb) - Other Blood Culture - Final No growth in 5 days. 10/25/24 06:05 Blood Culture (Wb) - Anticubital Left Blood Culture - Final Staphylococcus epidermidis 10/25/24 06:00 Blood Culture (Wb) - Anticubital Right Bacteria Detection (PCR) - Final Staphylococcus epidermidis mecA Resistance Marker 10/25/24 06:00 Blood Culture (Wb) - Anticubital Right Blood Culture - Final Gram positive organism Goal Trough Goal Trough: 15-20 mcg/mL Pharmacy Plan for Drug Dosing Pharmacy Plan for Drug Dosing: VANCOMYCIN LEVEL RECEIVED Current Vancomycin Dose: 1000mg IV Q24h Number of Doses Received: 2 (of current regimen) Vancomycin Level: 24.2 (goal 15-20) Hours Since Last Dose: 24.5hrs Renal Function: SCr 1.89/ CrCl 35 mL/min Renal Function Trend: Significant worsening since initiation of vancomycin Lab/Micro: No new data Vancomycin Plan/Comments: Patient had a trough drawn which resulted in a value of 24.2 (goal 15-20). Patient's trough is supratherapeutic. Will DISCONTINUE scheduled vancomycin and draw a random trough tomorrow morning with AM labs. No further vancomycin doses will be administered until trough is <20. Patient's renal function has been worsening. Will continue to monitor and dose accordingly. Pending Level: *RANDOM* level 11/07/24 @0600 Pharmacy Service will continue to monitor and adjust dosing as required.
[2024-11-06 12:18] LABS: Bedside Glucose 187 mg/dL (74-106)
[2024-11-06 14:20] VITALS: BP 115/44; PULSE 77; RESP 14; TEMP 36.4; O2SAT 100
--- NOTE | 2024-11-06 14:55 | US_ITS ---
PROCEDURE: KIDNEY AND BLADDER 11/06/2024 REASON FOR EXAM: JEANNE TECHNIQUE: Bilateral renal ultrasound. COMPARISON: CT abdomen and pelvis 11/04/2019 FINDINGS: Examination is limited by patient body habitus. Kidneys: Normal renal sizes, parenchymal thicknesses, and echotextures. Lyman: No hydronephrosis Cysts or Masses: 3.5 x 3.5 x 3.4 cm upper pole simple cyst. Other: Urinary bladder is not visualized. RIGHT Kidney Size: 12 x 5.2 x 5.7 cm Volume: 185 mL Cortical Thickness (if discernible): 13 (>6mm is normal) LEFT Kidney Size: 11.7 x 6 x 5 cm Volume: 181 mL Cortical Thickness (if discernible): 12 (>6mm is normal) US/Kidney and Bladder IMPRESSION: No calculi or hydronephrosis. 3.5 cm right upper pole simple cyst. Reading Location: [facility]
[2024-11-06 17:26] LABS: Bedside Glucose 169 mg/dL (74-106)
[2024-11-06 19:12] LABS: Mucous, Urine 0 SEEN /hpf (<or=2+); Red Blood Cells-Urine 0 SEEN /hpf (0-5)
[2024-11-06 19:16] LABS: Color, Urine Yellow (Yellow); Glucose, Dipstick Normal (Normal); Ketone-Dipstick Negative (Negative); Leukocyte Esterase-Dipstick 25 /ul (Negative); Nitrite-Dipstick Positive (Negative); Occult Blood-Urine Negative /ul (Negative); Protein-Dipstick 15 mg/dl (Negative); Urine Bilirubin Dipstick Negative (Negative); Urine Clarity Sl. Cloudy (Clear); Urine Urobilinogen Normal (Normal)
[2024-11-06 19:29] LABS: Squamous Epithelial Cells - UA 5-10 SEEN /hpf (5-10); White Blood Cells 5-10 SEEN /hpf (0-5)
[2024-11-06 19:30] LABS: Bacteria 2+ /hpf (None Seen)
[2024-11-06 20:01] LABS: Urea Nitrogen, Urine 741 mg/dL (NO RANGE EST.)
[2024-11-06] MEDS: Atorvastatin Calcium 80 MG Tablet PO (21:01)
[2024-11-06] MEDS: Insulin Lispro 100 UNIT/ML INSULN.PEN SC (21:01)
[2024-11-06 22:00] VITALS: BP 120/44; PULSE 83; RESP 18; TEMP 36.4; O2SAT 100
[2024-11-06 22:14] LABS: Bedside Glucose 186 mg/dL (74-106)
[2024-11-07 02:00] VITALS: BP 121/44; PULSE 84; RESP 18; TEMP 36.5; O2SAT 98
[2024-11-07] MEDS: metroNIDAZOLE 500 MG/100 ML BAG 100 MG IV ×3 (05:55→21:59)
[2024-11-07] MEDS: Lactated Ringers 1,000 ML 100 ML IV ×2 (06:21→17:12)
[2024-11-07 07:44] VITALS: O2SAT 96
[2024-11-07 07:56] LABS: Bedside Glucose 143 mg/dL (74-106)
--- NOTE | 2024-11-07 08:15 | PCM.PN.HOSP ---
Reason for Visit Reason for Visit: Diagnoses Other acute postprocedural pain (10/23/24) Essential (primary) hypertension (10/23/24) Unspecified atrial fibrillation (10/23/24) Hypotension, unspecified (10/23/24) Incisional hernia with obstruction, without gangrene (10/23/24) Incisional hernia without obstruction or gangrene (10/23/24) Other and unspecified ventral hernia with obstruction, without gangrene (10/23/24) Ventral hernia without obstruction or gangrene (10/23/24) Dyspnea, unspecified (10/23/24) Bacteremia (10/23/24) Infection following a procedure, other surgical site, initial encounter (10/23/24) 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 Objective Data Objective Data Vital Signs: Vital Signs Temp Pulse Resp BP Pulse Ox O2 Del Method O2 Flow Rate 36.5 C L 84 18 121/44 H 98 Nasal Cannula 2 11/07/24 02:00 11/07/24 02:00 11/07/24 02:00 11/07/24 02:00 11/07/24 02:00 11/07/24 02:00 11/07/24 02:00 Oxygen Flow Rate (L/min) 2 Oxygen Delivery Method Nasal Cannula Weight: 111.13 kg Body Mass Index (BMI) 39.5 Intake & Output: Intake and Output for Last 24 Hours 11/05/24 11/06/24 11/07/24 23:59 23:59 23:59 Intake Total 2432.42 / 2432.42 2790 / 2790 1220 / 1220 Output Total 420 / 770 900 / 900 340 / 340 Balance 2012.42 / 1662.42 1890 / 1890 880 / 880 Lab / Micro Data 11/07/24 08:15 11/07/24 08:15 Labs: Laboratory Results - last 24 hr 11/06/24 06:59: Sodium 139, Potassium 4.3, Chloride 106, Carbon Dioxide 25.3, Anion Gap 8, BUN 61 H, Creatinine 1.89 H, Estim Creat Clear Calc 35.49 L, Est GFR (MDRD) Non-Af 28 L, BUN/Creatinine Ratio 32.4 H, Glucose 218 H, Calcium 9.1 11/06/24 11:43: POC Glucose 187 H 11/06/24 17:06: POC Glucose 169 H 11/06/24 18:55: Urine Color Yellow, Urine Clarity Sl. Cloudy, Urine pH 5.0, Ur Specific [place] 1.020, Urine Protein 15 H, Urine Glucose (UA) Normal, Urine Ketones Negative, Urine Occult Blood Negative, Urine Nitrite Positive H, Urine Bilirubin Negative, Urine Urobilinogen Normal, Ur Leukocyte Esterase 25 H, Urine RBC 0 SEEN, Urine WBC 5-10 SEEN, Ur Squamous Epith Cells 5-10 SEEN, Urine Bacteria 2+, Urine Mucus 0 SEEN, Urine Creatinine 140.00, Urine Urea Nitrogen 741 11/06/24 21:00: POC Glucose 186 H 11/07/24 07:34: POC Glucose 143 H Micro: Microbiology 11/04/24 Unknown Implant - Other Gram Stain - Final 11/04/24 Unknown Implant - Other Wound Culture - Preliminary Yeast Like Organism 11/04/24 Unknown Wound Abcess - Other Gram Stain - Final 11/04/24 Unknown Wound Abcess - Other Wound Culture - Preliminary No growth-Final to follow 10/30/24 10:46 Aspirate - Abdominal Gram Stain - Final 10/30/24 10:46 Aspirate - Abdominal Wound Culture - Final Presumptive C albicans Enterococcus faecalis 10/30/24 10:46 Aspirate - Abdominal Anaerobic Culture - Final No anaerobic bacteria isolated. 10/28/24 09:05 Wound Abcess - Abdominal Gram Stain - Final 10/28/24 09:05 Wound Abcess - Abdominal Wound Culture - Final Escherichia coli Presumptive C albicans 10/28/24 09:05 Wound Abcess - Abdominal Anaerobic Culture - Final No anaerobic bacteria isolated. 10/26/24 12:42 Blood Culture (Wb) - Left Hand Blood Culture - Final No growth in 5 days. 10/26/24 11:55 Blood Culture (Wb) - Other Blood Culture - Final No growth in 5 days. 10/25/24 06:05 Blood Culture (Wb) - Anticubital Left Blood Culture - Final Staphylococcus epidermidis 10/25/24 06:00 Blood Culture (Wb) - Anticubital Right Bacteria Detection (PCR) - Final Staphylococcus epidermidis mecA Resistance Marker 10/25/24 06:00 Blood Culture (Wb) - Anticubital Right Blood Culture - Final Gram positive organism Radiography Diagnostic Testing: Radiology Impression Renal Ultrasound 11/06/24 14:55 IMPRESSION: No calculi or hydronephrosis. 3.5 cm right upper pole simple cyst. Reading Location: [facility] Physical Exam Const alert and no apparent distress HEENT head/scalp atraumatic and moist oral mucous membranes Resp normal respiratory effort and no retractions Resp Narrative: coarse breath sounds. Cardio regular rate, regular rhythm, S1 normal heart sound and S2 normal heart sound GI normal to inspection, nondistended, normoactive bowel sounds, soft to palpation, non-tender and non-distended Extremity normal to inspection and full ROM Neuro Sensorium / Orientation: awake and alert Psych affect normal Assessment & Plan Assessment/Plan (1) Bacteremia: PLAN: Plan JEANNE: concern for contrast nephropathy given IV contrast on the . improved after 2 days of worsening kidney function. continue with IVF, for now. If continues to worsen on 11/07 or becomes oliguric/anuric, then would likely consult nephrology check urine studies. Check renal US. SBO seen on CT from 11/03. s/p SANDRINE on 11/04. mgmt/diet per general surgery currently NPO. Bacteremia/Post op wound infection: Staph epi positive on the 10/25. Repeats on 10/26 were negative. on vancomycin, CTX, metronidazole ID following. afib: carvedilol apixaban ABLA Hg down to 7 (was 13.7 on 10.23) Recommend holding off transfusions unless hemoglobin 7 or less Monitor Chronic conditoins: DM2: NPO. On SSI. HTN: meds held Obesity Class II: complicates care and recovery. VTE prophylaxis: not indicated as already anticoagulated. Charges/Coding Visit Charges Inpatient E&M: 06277 Subs Hosp L2
[2024-11-07] MEDS: Vancomycin Trough/Random Due 1 LAB MC (08:19)
--- NOTE | 2024-11-07 08:38 | PCM.PN.SRG ---
Subjective Subjective Patient seen and examined during AM rounds. She is found resting in bed but states that she is hungry. She denies any passage of flatus since surgery. Nursing reports exceptional challenges with trying to mobilize patient even despite a large number of personnel as patient is unable to assist. Objective Data Objective Data Vital Signs: Vital Signs Temp Pulse Resp BP Pulse Ox O2 Del Method O2 Flow Rate 97.7 F L 84 18 121/44 H 98 Nasal Cannula 2 11/07/24 02:00 11/07/24 02:00 11/07/24 02:00 11/07/24 02:00 11/07/24 02:00 11/07/24 02:00 11/07/24 02:00 Oxygen Flow Rate (L/min) 2 Oxygen Delivery Method Nasal Cannula Weight: 244 lb 15.995 oz Body Mass Index (BMI) 39.5 Intake & Output: Intake and Output for Last 24 Hours 11/05/24 11/06/24 11/07/24 23:59 23:59 23:59 Intake Total 2432.42 / 2432.42 2790 / 2790 1220 / 1220 Output Total 420 / 770 900 / 900 340 / 340 Balance 2012.42 / 1662.42 1890 / 1890 880 / 880 Lab / Micro Data 11/07/24 08:15 11/07/24 08:15 Labs: Laboratory Results - last 24 hr 11/06/24 11:43: POC Glucose 187 H 11/06/24 17:06: POC Glucose 169 H 11/06/24 18:55: Urine Color Yellow, Urine Clarity Sl. Cloudy, Urine pH 5.0, Ur Specific [place] 1.020, Urine Protein 15 H, Urine Glucose (UA) Normal, Urine Ketones Negative, Urine Occult Blood Negative, Urine Nitrite Positive H, Urine Bilirubin Negative, Urine Urobilinogen Normal, Ur Leukocyte Esterase 25 H, Urine RBC 0 SEEN, Urine WBC 5-10 SEEN, Ur Squamous Epith Cells 5-10 SEEN, Urine Bacteria 2+, Urine Mucus 0 SEEN, Urine Creatinine 140.00, Urine Urea Nitrogen 741 11/06/24 21:00: POC Glucose 186 H 11/07/24 07:34: POC Glucose 143 H Micro: Microbiology 11/04/24 Unknown Implant - Other Gram Stain - Final 11/04/24 Unknown Implant - Other Wound Culture - Preliminary Yeast Like Organism 11/04/24 Unknown Wound Abcess - Other Gram Stain - Final 11/04/24 Unknown Wound Abcess - Other Wound Culture - Preliminary No growth-Final to follow 10/30/24 10:46 Aspirate - Abdominal Gram Stain - Final 10/30/24 10:46 Aspirate - Abdominal Wound Culture - Final Presumptive C albicans Enterococcus faecalis 10/30/24 10:46 Aspirate - Abdominal Anaerobic Culture - Final No anaerobic bacteria isolated. 10/28/24 09:05 Wound Abcess - Abdominal Gram Stain - Final 10/28/24 09:05 Wound Abcess - Abdominal Wound Culture - Final Escherichia coli Presumptive C albicans 10/28/24 09:05 Wound Abcess - Abdominal Anaerobic Culture - Final No anaerobic bacteria isolated. 10/26/24 12:42 Blood Culture (Wb) - Left Hand Blood Culture - Final No growth in 5 days. 10/26/24 11:55 Blood Culture (Wb) - Other Blood Culture - Final No growth in 5 days. 10/25/24 06:05 Blood Culture (Wb) - Anticubital Left Blood Culture - Final Staphylococcus epidermidis 10/25/24 06:00 Blood Culture (Wb) - Anticubital Right Bacteria Detection (PCR) - Final Staphylococcus epidermidis mecA Resistance Marker 10/25/24 06:00 Blood Culture (Wb) - Anticubital Right Blood Culture - Final Gram positive organism Radiography Diagnostic Testing: Radiology Impression Renal Ultrasound 11/06/24 14:55 IMPRESSION: No calculi or hydronephrosis. 3.5 cm right upper pole simple cyst. Reading Location: [facility] Physical Exam Const oriented x3 Constitutional Narrative: Hard of hearing Resp normal respiratory effort GI GI Narrative: Morbidly obese with right-lying pannus. Midline laparotomy wound left open with significant undermining towards the right approximately 12 cm. There is some fibrinous exudate along the furthest reaches of this wound laterally. There is some persistent pooling of thin whitney drainage. Patient has tenderness with palpation of this area. I do not visualize any macario pockets of purulence. Fascia otherwise appears healthy and fascial closure appears intact. Assessment & Plan Assessment/Plan (1) Postoperative wound infection: PLAN: Patient is 68-year-old female status post exploratory laparotomy small bowel resection and reanastomosis as well as mesh removal 11/04/2024. She remains clinically stable but is a difficult historian as far as any return of bowel function. Today nursing has not noted any passage of flatus or any signs of return of bowel function. Wound appears stable according to wound nursing and yet I have concerns about the ability for this wound to drain appropriately given patient's habitus and the rightward lie of her pannus. We discussed potentially beginning negative pressure wound VAC therapy but given her ongoing positive cultures with yeast there is a concern that this may propagate that growth. Therefore, we will continue Dakin's dressings x 2 and a dry gauze dressing between these Dakin's dressings to try to dry up this wound. Will then plan to reculture at the conclusion of the weekend to see if patient is suitable for transitioning to negative pressure wound VAC therapy. ? Wound care as above ? Obtain a.m. KUB to follow-up bowel gas pattern given patient's challenges in eliciting history ? Patient has been encouraged to work with her caregivers and mobilize as she is able ? Encourage I.S. ? Continue IV antibiotics per ID recommendations ? Continue monitoring renal function, appreciate hospitalist assistance I was advised by nursing moments ago the patient had experienced a large bowel movement. With this sign of bowel function return will initiate a clear liquid diet. Will follow-up patient tolerance and continue with KUB as stated. Ed Shirley MD General Surgery Endocrine Surgery Pager: [facility] [address] [place] [address], [address] [place] [address] Office: [phone] Charges/Coding Visit Charges Inpatient E&M: 54800 Subs Hosp L2
[2024-11-07 08:39] LABS: Absolute Lymphocyte Count 0.68 X10^3/uL (0.83-4.51); Absolute Neutrophil Count 6.5 X10^3/uL (2.0-7.7); Basophil# 0.01 X10^3/uL; Basophil% 0.1 % (0-1); Eosinophil# 0.07 X10^3/uL; Eosinophils% 0.9 % (0-5); Hematocrit 23.4 % (37-47); Lymphocyte # 0.68 X10^3/ul (0.83-4.51); Lymphocyte % 8.7 % (19-41); Mean Corp Hgb Conc 29.9 g/dL (32-36); Mean Corpuscular Volume 80.1 fL (81-99); Mean Platelet Vol. 9.7 fl (6.2-12.0); Monocyte# 0.44 X10^3/uL; Monocyte% 5.6 % (0-10); NRBC Flagged by Analyzer 0 % (0-5); Neutrophil # 6.49 X10^3/uL (2.7-7.7); Neutrophil % 82.9 % (47-70); POSITIVE MORPHOLOGY YES; Platelet Count 305 K/mm3 (150-450); RBC Distribution Width CV 20.4 % (11.6-14.6); RBC Distribution Width SD 59.7 fl (35.1-43.9); Red Blood Count 2.92 M/mm3 (4.2-5.4); White Blood Count 7.8 K/mm3 (4.4-11.0)
[2024-11-07 08:43] LABS: Differential Indicated SCAN CRITERIA MET
[2024-11-07 09:02] LABS: Anisocytosis 1+
[2024-11-07 09:05] VITALS: BP 125/50; PULSE 85; RESP 18; TEMP 36.3; O2SAT 95
[2024-11-07 09:08] LABS: Anion Gap 9 (5-15); BUN 57 mg/dL (4-19); BUN/Creat Ratio 35.1 RATIO (10-20); Calcium,Total 9.1 mg/dL (7.6-11.0); Carbon Dioxide 24.7 mmol/L (21.0-32.0); Chloride 111 mmol/L (98-108); Creatinine, Serum 1.62 mg/dL (0.70-1.20); EST Glomerular Filtration Rate 34 (>60); Estimated Creatinine Clearance 41.41 ml/min (50-250); Glucose 148 mg/dL (70-99); Potassium 4.6 mmol/L (3.3-5.1); Sodium Level 144 mmol/L (133-145); Vancomycin, Random Level 19.1 ug/mL (0.0-15.0)
[2024-11-07] MEDS: Carvedilol 25 MG Tablet PO ×2 (09:25→16:17)
[2024-11-07] MEDS: Pantoprazole Sodium 20 MG Tablet PO (09:26)
[2024-11-07] MEDS: Enoxaparin 40 MG/0.4 ML Syringe SC (09:26)
[2024-11-07] MEDS: Fluconazole IVPB 200 MG/100 ML BAG 100 MG IV (09:37)
[2024-11-07] MEDS: 0.9% Saline Lock 10 ML Syringe IV ×2 (09:38→17:25)
--- NOTE | 2024-11-07 09:38 | PCM.RX.CS ---
Consult Antibiotic Management Pharmacy has been consulted to manage selected antibiotic: Vancomycin Type of Intervention Type of Consult: Follow-up Suspected Infection Suspected Infection: Osteomyelitis Prior Doses of Antibiotics Prior Doses of Antibiotics Received/Current Regimen: 11/05/24 @ 0600 Vancomycin 1000mg given Labs Labs: Sodium 144 mmol/L (133-145) 11/07/24 08:15 Potassium 4.6 mmol/L (3.3-5.1) 11/07/24 08:15 Chloride 111 mmol/L (98-108) H 11/07/24 08:15 Carbon Dioxide 24.7 mmol/L (21.0-32.0) 11/07/24 08:15 Anion Gap 9 (5-15) 11/07/24 08:15 BUN 57 mg/dL (4-19) H 11/07/24 08:15 Creatinine 1.62 mg/dL (0.70-1.20) H 11/07/24 08:15 Est GFR (MDRD) Non-Af 34 (>60) L 11/07/24 08:15 BUN/Creatinine Ratio 35.1 RATIO (10-20) H 11/07/24 08:15 Glucose 148 mg/dL (70-99) H 11/07/24 08:15 Vancomycin Trough 24.2 ug/mL (5.0-15.0) H 11/06/24 06:32 Random Vancomycin 19.1 ug/mL (0.0-15.0) H 11/07/24 08:15 Microbiology Microbiology: Microbiology 11/04/24 Unknown Implant - Other Gram Stain - Final 11/04/24 Unknown Implant - Other Wound Culture - Preliminary Yeast Like Organism 11/04/24 Unknown Wound Abcess - Other Gram Stain - Final 11/04/24 Unknown Wound Abcess - Other Wound Culture - Preliminary No growth-Final to follow 10/30/24 10:46 Aspirate - Abdominal Gram Stain - Final 10/30/24 10:46 Aspirate - Abdominal Wound Culture - Final Presumptive C albicans Enterococcus faecalis 10/30/24 10:46 Aspirate - Abdominal Anaerobic Culture - Final No anaerobic bacteria isolated. 10/28/24 09:05 Wound Abcess - Abdominal Gram Stain - Final 10/28/24 09:05 Wound Abcess - Abdominal Wound Culture - Final Escherichia coli Presumptive C albicans 10/28/24 09:05 Wound Abcess - Abdominal Anaerobic Culture - Final No anaerobic bacteria isolated. 10/26/24 12:42 Blood Culture (Wb) - Left Hand Blood Culture - Final No growth in 5 days. 10/26/24 11:55 Blood Culture (Wb) - Other Blood Culture - Final No growth in 5 days. 10/25/24 06:05 Blood Culture (Wb) - Anticubital Left Blood Culture - Final Staphylococcus epidermidis 10/25/24 06:00 Blood Culture (Wb) - Anticubital Right Bacteria Detection (PCR) - Final Staphylococcus epidermidis mecA Resistance Marker 10/25/24 06:00 Blood Culture (Wb) - Anticubital Right Blood Culture - Final Gram positive organism Dosing Weight Weight used for dosin kg Estimated Creatinine Clearance Estimated Creatinine Clearance: 41 Goal Trough Goal Trough: 15-20 mcg/mL Pharmacy Plan for Drug Dosing Pharmacy Plan for Drug Dosing: Vancomycin 500mg every 24 hours starting 11/07/24 @ 1700 Pharmacy Service will continue to monitor and adjust dosing as required. Follow-Up Labs Follow-Up Labs: Trough: Vancomycin Date/Time Labs Ordered Labs to be done on [date and time ordered]: 11/09/24 @ 1630
[2024-11-07] MEDS: Ceftriaxone 1 GM/50 ML BAG IV (11:15)
[2024-11-07 11:41] LABS: Bedside Glucose 136 mg/dL (74-106)
[2024-11-07] MEDS: Nystatin Powder 15gm Bottle 1 APPLIC TOPICAL ×2 (14:01→22:00)
[2024-11-07] MEDS: Menthol/Lanolin/Calamine/Znox 113 GM Tube 1 APPLIC TOPICAL ×2 (14:01→22:00)
--- NOTE | 2024-11-07 14:58 | PCM.PN.ID ---
Physical Exam Narrative Feeling about the same, mild abd pain, no fever Const no apparent distress General Appearance: cooperative Orientation / Consciousness: lethargic Resp normal air movement and clear to auscultation bilaterally Cardio regular rate and regular rhythm GI soft to palpation, non-tender and non-distended Extremity General Extremity: edema Skin no rashes or lesions noted ID ID: Route of nutrition/ use of supplements: [] Nutritional Intake: [] IV Site: [] Koo Catheter: [] Assessment & Plan Assessment/Plan (1) Postoperative wound infection: PLAN: OR again 11/04/24 with drainage of purulence and partial small bowel resection, cxs from surgery again with yeast. Continue vanc, ceftriaxone, flagyl. Given ongoing yeast in deep cultures, will change fluc to micafungin. Will follow
[2024-11-07 14:59] VITALS: BP 114/45; PULSE 84; RESP 16; TEMP 36.3; O2SAT 95
[2024-11-07] MEDS: Micafungin Sodium 100 MG in Dextrose 5%-Water (100mL Bag) 100 ML IV (16:08)
[2024-11-07 16:38] LABS: Bedside Glucose 151 mg/dL (74-106)
[2024-11-07] MEDS: Vancomycin IV 500 MG/100 ML BAG 100 MG IV (17:24)
[2024-11-07 21:00] VITALS: BP 108/49; PULSE 88; RESP 18; TEMP 36.8; O2SAT 95
[2024-11-07] MEDS: Atorvastatin Calcium 80 MG Tablet PO (22:05)
[2024-11-07 22:28] LABS: Bedside Glucose 148 mg/dL (74-106)
[2024-11-08] VITALS (7 sets, daily range): BP systolic 112–132; BP diastolic 48–65; PULSE 73–93; RESP 12–21; TEMP 36.1–36.8; O2SAT 95–98
[2024-11-08] MEDS: Lactated Ringers 1,000 ML 100 ML IV ×2 (03:14→18:37)
[2024-11-08] MEDS: 0.9% Normal Saline (100mL Bag) 100 ML 15 ML IV (03:16)
[2024-11-08] MEDS: traMADol 50 MG Tablet PO (03:21)
[2024-11-08 06:50] LABS: Bedside Glucose 139 mg/dL (74-106)
--- NOTE | 2024-11-08 07:00 | RAD_ITS ---
PROCEDURE: ABDOMEN SINGLE VIEW (PORTABLE) 11/08/2024 REASON FOR EXAM: F/U BOWEL GAS PATTERN S/P RESECTION TECHNIQUE: Single view abdomen. COMPARISON: CT abdomen pelvis 11/03/2024. FINDINGS: Bowel gas: There is dilation of the transverse colon measuring up to 8.4 cm. Calcifications: No suspicious calcifications. Bones: There are degenerative changes of the spine. Chronic right rib fracture deformities. Other: Gas within the right body wall, compatible with recent surgical history. Retained contrast material opacifies portions of the ascending colon and bilateral kidneys. Surgical drain overlies the right lower quadrant. Surgical clips within the lower pelvis. RAD/Abdomen Single View (Portable) IMPRESSION: Dilation of the transverse colon, which is indeterminate in etiology given rece nt surgical history. Findings may represent postoperative ileus or persistent bowel obstruction. Progress abdominal radiog raphs recommended for continued evaluation. Reading Location: [id number]
[2024-11-08 07:47] LABS: Absolute Lymphocyte Count 0.85 X10^3/uL (0.83-4.51); Absolute Neutrophil Count 6.4 X10^3/uL (2.0-7.7); Basophil# 0.03 X10^3/uL; Basophil% 0.4 % (0-1); Eosinophil# 0.04 X10^3/uL; Eosinophils% 0.5 % (0-5); Hematocrit 23.5 % (37-47); Hemoglobin 7.2 g/dL (12.0-15.0); Lymphocyte # 0.85 X10^3/ul (0.83-4.51); Lymphocyte % 10.5 % (19-41); Mean Corp Hgb Conc 30.6 g/dL (32-36); Mean Corpuscular Hgb 24.2 pg (27.0-32.0); Mean Corpuscular Volume 78.9 fL (81-99); Mean Platelet Vol. 9.4 fl (6.2-12.0); Monocyte# 0.54 X10^3/uL; Monocyte% 6.7 % (0-10); NRBC Flagged by Analyzer 0.2 % (0-5); Neutrophil % 79.3 % (47-70); POSITIVE MORPHOLOGY YES; Platelet Count 336 K/mm3 (150-450); RBC Distribution Width CV 20.4 % (11.6-14.6); RBC Distribution Width SD 58.9 fl (35.1-43.9); Red Blood Count 2.98 M/mm3 (4.2-5.4); White Blood Count 8.1 K/mm3 (4.4-11.0)
[2024-11-08 07:51] LABS: Differential Indicated SCAN CRITERIA MET
--- NOTE | 2024-11-08 08:05 | PN.SURG_ITS ---
Subjective Subjective Patient seen and evaluated during AM rounds. She is very drowsy but arouses relatively easily. She denies any abdominal pain. She confirms that she is both having bowel movements and passing gas. She also expresses appreciation for her diet advancement yesterday. Objective Data Objective Data Vital Signs: Vital Signs Temp Pulse Resp BP Pulse Ox O2 Del Method O2 Flow Rate 98.2 F 89 18 116/65 95 Nasal Cannula 2 11/08/24 03:00 11/08/24 03:00 11/08/24 03:00 11/08/24 03:00 11/08/24 03:00 11/08/24 03:00 11/08/24 07:40 Oxygen Flow Rate (L/min) 2 Oxygen Delivery Method Nasal Cannula Weight: 244 lb 15.995 oz Body Mass Index (BMI) 39.5 Intake & Output: Intake and Output for Last 24 Hours 11/06/24 11/07/24 11/08/24 23:59 23:59 23:59 Intake Total 2790 / 2790 2775 / 2775 1000 / 1000 Output Total 900 / 900 990 / 990 Balance 1890 / 1890 1785 / 1785 1000 / 1000 Lab / Micro Data 11/08/24 07:29 11/08/24 07:29 Labs: Laboratory Results - last 24 hr 11/07/24 08:15: WBC 7.8, RBC 2.92 L, Hgb 7.0 L, Hct 23.4 L, MCV 80.1 L, MCH 24.0 L, MCHC 29.9 L, RDW Std Deviation 59.7 H, RDW Coeff of Faby 20.4 H, Plt Count 305, MPV 9.7, Immature Gran % (Auto) 1.800 H, Neut % (Auto) 82.9 H, Lymph % (Auto) 8.7 L, [place] % (Auto) 5.6, Eos % (Auto) 0.9, Baso % (Auto) 0.1, Absolute Neuts (auto) 6.5, Absolute Lymphs (auto) 0.68 L, Nucleated RBC % 0, Anisocytosis 1+, Sodium 144, Potassium 4.6, Chloride 111 H, Carbon Dioxide 24.7, Anion Gap 9, BUN 57 H, Creatinine 1.62 H, Estim Creat Clear Calc 41.41 L, Est GFR (MDRD) Non- Af 34 L, BUN/Creatinine Ratio 35.1 H, Glucose 148 H, Calcium 9.1, Random Vancomycin 19.1 H 11/07/24 11:16: POC Glucose 136 H 11/07/24 16:16: POC Glucose 151 H 11/07/24 21:59: POC Glucose 148 H 11/08/24 06:33: POC Glucose 139 H 11/08/24 07:29: WBC 8.1, RBC 2.98 L, Hgb 7.2 L, Hct 23.5 L, MCV 78.9 L, MCH 24.2 L, MCHC 30.6 L, RDW Std Deviation 58.9 H, RDW Coeff of Faby 20.4 H, Plt Count 336, MPV 9.4, Immature Gran % (Auto) 2.600 H, Neut % (Auto) 79.3 H, Lymph % (Auto) 10.5 L, [place] % (Auto) 6.7, Eos % (Auto) 0.5, Baso % (Auto) 0.4, Absolute Neuts (auto) 6.4, Absolute Lymphs (auto) 0.85, Nucleated RBC % 0.2 Micro: Microbiology 11/04/24 Unknown Implant - Other Gram Stain - Final 11/04/24 Unknown Implant - Other Wound Culture - Preliminary Yeast, not Marguerite albicans Gram negative marty 11/04/24 Unknown Implant - Other Anaerobic Culture - Preliminary Checking for anaerobes, further studies to follow. 11/04/24 Unknown Wound Abcess - Other Gram Stain - Final 11/04/24 Unknown Wound Abcess - Other Wound Culture - Final No growth aerobically. 11/04/24 Unknown Wound Abcess - Other Anaerobic Culture - Preliminary Checking for anaerobes, further studies to follow. 10/30/24 10:46 Aspirate - Abdominal Gram Stain - Final 10/30/24 10:46 Aspirate - Abdominal Wound Culture - Final Presumptive C albicans Enterococcus faecalis 10/30/24 10:46 Aspirate - Abdominal Anaerobic Culture - Final No anaerobic bacteria isolated. 10/28/24 09:05 Wound Abcess - Abdominal Gram Stain - Final 10/28/24 09:05 Wound Abcess - Abdominal Wound Culture - Final Escherichia coli Presumptive C albicans 10/28/24 09:05 Wound Abcess - Abdominal Anaerobic Culture - Final No anaerobic bacteria isolated. 10/26/24 12:42 Blood Culture (Wb) - Left Hand Blood Culture - Final No growth in 5 days. 10/26/24 11:55 Blood Culture (Wb) - Other Blood Culture - Final No growth in 5 days. 10/25/24 06:05 Blood Culture (Wb) - Anticubital Left Blood Culture - Final Staphylococcus epidermidis 10/25/24 06:00 Blood Culture (Wb) - Anticubital Right Bacteria Detection (PCR) - Final Staphylococcus epidermidis mecA Resistance Marker 10/25/24 06:00 Blood Culture (Wb) - Anticubital Right Blood Culture - Final Gram positive organism Physical Exam Const oriented x3 Constitutional Narrative: Drowsy but arousable Resp normal respiratory effort Resp Narrative: Shallow inspiratory effort with poor performance on spirometer despite encouragement GI GI Narrative: Morbidly obese with right-lying pannus. Midline laparotomy wound left open with significant undermining towards the right approximately 12 cm. The wound has been recently redressed so the dressing is not displaced but the dressing itself is clean dry and intact. Patient denies any tenderness with palpation. There is some persistent woody edema to patient's pannus on the right. Assessment & Plan Assessment/Plan (1) Postoperative wound infection: PLAN: Patient is 68-year-old female status post exploratory laparotomy small bowel resection and reanastomosis as well as mesh removal 11/04/2024. Nursing reported yesterday patient had a bowel movement and today patient is reporting flatus. She also reports that she is tolerating a diet. I obtained a KUB this morning given patient's limited ability to report her symptoms and clinical status. This shows some isolated dilation of the transverse colon. I did not find any particular distention on patient's abdominal exam and this gas collection confirms patency of her anastomosis. Therefore, would favor continued to advance her diet given patient's need for nutrition both with her anastomosis and her persistent postoperative wound but will continue to surveilled this issue with repeat KUB in the a.m. Patient had wound appears stable according to wound nursing and yet I have concerns about the ability for this wound to drain appropriately given patient's habitus and the rightward lie of her pannus. We discussed potentially beginning negative pressure wound VAC therapy but given her ongoing positive cultures with yeast there is a concern that this may propagate that growth. Therefore, we will continue Dakin's dressings x 2 and a dry gauze dressing between these Dakin's dressings to try to dry up this wound. Will then plan to reculture at the conclusion of the weekend to see if patient is suitable for transitioning to negative pressure wound VAC therapy. ? Wound care as above ? Repeat a.m. KUB to follow-up patient's colonic gas pattern ? Patient has been encouraged to work with her caregivers and mobilize as she is able ? Encourage I.S.?poor effort today ? Continue IV antibiotics per ID recommendations ? Continue monitoring renal function, appreciate hospitalist assistance I was advised by nursing moments ago the patient had experienced a large bowel movement. With this sign of bowel function return will initiate a clear liquid diet. Will follow-up patient tolerance and continue with KUB as stated. Ed Shirley MD General Surgery Endocrine Surgery Pager: [facility] [address] [place] [address] [address] [place] [address] Office: [phone] Charges/Coding Visit Charges Inpatient E&M: 08002 Subs Hosp L2
[2024-11-08 08:11] LABS: Anion Gap 7 (5-15); BUN 51 mg/dL (4-19); BUN/Creat Ratio 35.5 RATIO (10-20); Calcium,Total 9.1 mg/dL (7.6-11.0); Carbon Dioxide 23.6 mmol/L (21.0-32.0); Chloride 108 mmol/L (98-108); Creatinine, Serum 1.43 mg/dL (0.70-1.20); EST Glomerular Filtration Rate 40 (>60); Estimated Creatinine Clearance 46.91 ml/min (50-250); Glucose 157 mg/dL (70-99); Sodium Level 139 mmol/L (133-145)
[2024-11-08 08:26] LABS: Anisocytosis 2+; Differential Comment SCANNED
[2024-11-08] MEDS: Ceftriaxone 1 GM/50 ML BAG IV (08:42)
--- NOTE | 2024-11-08 08:52 | PN.HOSP_ITS ---
Reason for Visit Reason for Visit: Diagnoses Other acute postprocedural pain (10/23/24) Essential (primary) hypertension (10/23/24) Unspecified atrial fibrillation (10/23/24) Hypotension, unspecified (10/23/24) Incisional hernia with obstruction, without gangrene (10/23/24) Incisional hernia without obstruction or gangrene (10/23/24) Other and unspecified ventral hernia with obstruction, without gangrene (10/23/24) Ventral hernia without obstruction or gangrene (10/23/24) Dyspnea, unspecified (10/23/24) Bacteremia (10/23/24) Infection following a procedure, other surgical site, initial encounter (10/23/24) nursing home (current) use of anticoagulants (10/23/24) Personal history of other endocrine, nutritional and metabolic disease (10/23/24) Personal history of other diseases of the digestive system (10/23/24) Radiographic dye allergy status (10/23/24) Other specified postprocedural states (10/23/24) Subjective Subjective More confused today. Diet advanced to clears. Objective Data Objective Data Vital Signs: Vital Signs Temp Pulse Resp BP Pulse Ox O2 Del Method O2 Flow Rate 36.3 C L 93 20 H 118/60 97 Nasal Cannula 2 11/08/24 08:39 11/08/24 08:39 11/08/24 08:39 11/08/24 08:39 11/08/24 08:39 11/08/24 08:39 11/08/24 08:39 Oxygen Flow Rate (L/min) 2 Oxygen Delivery Method Nasal Cannula Weight: 111.13 kg Body Mass Index (BMI) 39.5 Intake & Output: Intake and Output for Last 24 Hours 11/06/24 11/07/24 11/08/24 23:59 23:59 23:59 Intake Total 2790 / 2790 2775 / 2775 1000 / 1000 Output Total 900 / 900 990 / 990 Balance 1890 / 1890 1785 / 1785 1000 / 1000 Lab / Micro Data 11/08/24 07:29 11/08/24 07:29 Labs: Laboratory Results - last 24 hr 11/07/24 08:15: Anisocytosis 1+, Sodium 144, Potassium 4.6, Chloride 111 H, Carbon Dioxide 24.7, Anion Gap 9, BUN 57 H, Creatinine 1.62 H, Estim Creat Clear Calc 41.41 L, Est GFR (MDRD) Non-Af 34 L, BUN/Creatinine Ratio 35.1 H, Glucose 148 H, Calcium 9.1, Random Vancomycin 19.1 H 11/07/24 11:16: POC Glucose 136 H 11/07/24 16:16: POC Glucose 151 H 11/07/24 21:59: POC Glucose 148 H 11/08/24 06:33: POC Glucose 139 H 11/08/24 07:29: WBC 8.1, RBC 2.98 L, Hgb 7.2 L, Hct 23.5 L, MCV 78.9 L, MCH 24.2 L, MCHC 30.6 L, RDW Std Deviation 58.9 H, RDW Coeff of Faby 20.4 H, Plt Count 336, MPV 9.4, Immature Gran % (Auto) 2.600 H, Neut % (Auto) 79.3 H, Lymph % (Auto) 10.5 L, [place] % (Auto) 6.7, Eos % (Auto) 0.5, Baso % (Auto) 0.4, Absolute Neuts (auto) 6.4, Absolute Lymphs (auto) 0.85, Nucleated RBC % 0.2, Differential Comment SCANNED, Anisocytosis 2+, Sodium 139, Potassium 4.0, Chloride 108, Carbon Dioxide 23.6, Anion Gap 7, BUN 51 H, Creatinine 1.43 H, Estim Creat Clear Calc 46.91 L, Est GFR (MDRD) Non-Af 40 L, BUN/Creatinine Ratio 35.5 H, Glucose 157 H, Calcium 9.1 Micro: Microbiology 11/04/24 Unknown Implant - Other Gram Stain - Final 11/04/24 Unknown Implant - Other Wound Culture - Preliminary Yeast, not Marguerite albicans Gram negative marty 11/04/24 Unknown Implant - Other Anaerobic Culture - Preliminary Checking for anaerobes, further studies to follow. 11/04/24 Unknown Wound Abcess - Other Gram Stain - Final 11/04/24 Unknown Wound Abcess - Other Wound Culture - Final No growth aerobically. 11/04/24 Unknown Wound Abcess - Other Anaerobic Culture - Preliminary Checking for anaerobes, further studies to follow. 10/30/24 10:46 Aspirate - Abdominal Gram Stain - Final 10/30/24 10:46 Aspirate - Abdominal Wound Culture - Final Presumptive C albicans Enterococcus faecalis 10/30/24 10:46 Aspirate - Abdominal Anaerobic Culture - Final No anaerobic bacteria isolated. 10/28/24 09:05 Wound Abcess - Abdominal Gram Stain - Final 10/28/24 09:05 Wound Abcess - Abdominal Wound Culture - Final Escherichia coli Presumptive C albicans 10/28/24 09:05 Wound Abcess - Abdominal Anaerobic Culture - Final No anaerobic bacteria isolated. 10/26/24 12:42 Blood Culture (Wb) - Left Hand Blood Culture - Final No growth in 5 days. 10/26/24 11:55 Blood Culture (Wb) - Other Blood Culture - Final No growth in 5 days. 10/25/24 06:05 Blood Culture (Wb) - Anticubital Left Blood Culture - Final Staphylococcus epidermidis 10/25/24 06:00 Blood Culture (Wb) - Anticubital Right Bacteria Detection (PCR) - Final Staphylococcus epidermidis mecA Resistance Marker 10/25/24 06:00 Blood Culture (Wb) - Anticubital Right Blood Culture - Final Gram positive organism Radiography Diagnostic Testing: Radiology Impression KUB X-Ray 11/08/24 07:00 IMPRESSION: Dilation of the transverse colon, which is indeterminate in etiology given recent surgical history. Findings may represent postoperative ileus or persistent bowel obstruction. Progress abdominal radiographs recommended for continued evaluation. Reading Location: [facility] Physical Exam Const no apparent distress Constitutional Narrative: listless. Orientation / Consciousness: confused HEENT head/scalp atraumatic and moist oral mucous membranes Resp normal respiratory effort, no retractions, no use of accessory muscles and clear to auscultation bilaterally Cardio regular rate, regular rhythm, S1 normal heart sound and S2 normal heart sound GI GI Narrative: distended. tender Assessment & Plan Assessment/Plan (1) Bacteremia: PLAN: Plan JEANNE: * improved after 2 days of worsening kidney function. * continue with IVF cautiously for now. * renal US unremarkable. FEUrea 14%, consistent with prerenal azotemia. Though began AFTER receiving IV contrast. Given the improvement, no additional work up at this time. SBO * seen on CT from 11/03. * s/p SANDRINE on 11/04. * mgmt/diet per general surgery * CLD Bacteremia/Post op wound infection: * Staph epi positive on the 10/25. Repeats on 10/26 were negative. * on vancomycin, CTX, metronidazole, micafungin * ID following. afib: * carvedilol * apixaban ABLA * Hg down to 7 (was 13.7 on 10.23) * Recommend holding off transfusions unless hemoglobin 7 or less * Monitor Encephalopathy * suspect metabolic * avoid potentiating medications. * check head CT. Check NH3. Check ABG. Chronic conditoins: * DM2: NPO. On SSI. * HTN: meds held * Obesity Class II: complicates care and recovery. VTE prophylaxis: not indicated as already anticoagulated. Charges/Coding Visit Charges Inpatient E&M: 88804 Subs Hosp L2
[2024-11-08] MEDS: Nystatin Powder 15gm Bottle 1 APPLIC TOPICAL ×3 (09:06→21:40)
[2024-11-08] MEDS: Enoxaparin 40 MG/0.4 ML Syringe SC (09:06)
[2024-11-08] MEDS: Menthol/Lanolin/Calamine/Znox 113 GM Tube 1 APPLIC TOPICAL ×3 (09:06→21:40)
[2024-11-08] MEDS: Carvedilol 25 MG Tablet PO ×2 (09:06→16:36)
[2024-11-08] MEDS: Micafungin Sodium 100 MG in Dextrose 5%-Water (100mL Bag) 100 ML IV (10:27)
[2024-11-08] MEDS: Alteplase 2 MG/2 ML Vial IV ×2 (10:50→14:27)
[2024-11-08] MEDS: Insulin Lispro 100 UNIT/ML INSULN.PEN SC ×3 (11:39→21:41)
[2024-11-08 12:02] LABS: Bedside Glucose 194 mg/dL (74-106)
[2024-11-08 14:17] LABS: Ammonia 14.3 umol/L (11-51)
[2024-11-08] MEDS: metroNIDAZOLE 500 MG/100 ML BAG 100 MG IV ×2 (14:49→21:40)
[2024-11-08] MEDS: Vancomycin IV 500 MG/100 ML BAG 100 MG IV (16:40)
[2024-11-08 16:58] LABS: Allen Test Positive; Base Excess 3 mmol/L (-2 to +2); Bicarbonate 28.6 mmol/L (22-26); Blood Gas Specimen Type ART; Mode Not entered; O2 Delivery Device Cannula; PO2 82 mmHG (75-100); SITE L Radial; SO2 95 % (95-99); Total Carbon Dioxide 30 mmol/L; pCO2 50.3 mmHg (35-45); pH 7.36 (7.35-7.45)
[2024-11-08 17:01] LABS: Bedside Glucose 189 mg/dL (74-106)
[2024-11-08] MEDS: Ipratropium/Albuterol Sulfate 3 ML AMPUL.NEB INHALATION (20:28)
[2024-11-08] MEDS: 0.9% Saline Lock 10 ML Syringe IV (21:39)
[2024-11-08] MEDS: Atorvastatin Calcium 80 MG Tablet PO (21:39)
[2024-11-08 22:31] LABS: Bedside Glucose 198 mg/dL (74-106)
[2024-11-09] VITALS (10 sets, daily range): BP systolic 123–139; BP diastolic 44–70; PULSE 73–85; RESP 16–20; TEMP 36.1–36.6; O2SAT 86–98
[2024-11-09] MEDS: Ipratropium/Albuterol Sulfate 3 ML AMPUL.NEB INHALATION ×2 (02:00→19:44)
[2024-11-09 06:10] LABS: Absolute Lymphocyte Count 1.02 X10^3/uL (0.83-4.51); Absolute Neutrophil Count 5.7 X10^3/uL (2.0-7.7); Basophil# 0.04 X10^3/uL; Basophil% 0.5 % (0-1); Eosinophil# 0.09 X10^3/uL; Eosinophils% 1.2 % (0-5); Hematocrit 22.9 % (37-47); Lymphocyte # 1.02 X10^3/ul (0.83-4.51); Lymphocyte % 13.2 % (19-41); Mean Corp Hgb Conc 30.6 g/dL (32-36); Mean Corpuscular Hgb 24.2 pg (27.0-32.0); Mean Corpuscular Volume 79.2 fL (81-99); Mean Platelet Vol. 9.4 fl (6.2-12.0); Monocyte# 0.57 X10^3/uL; Monocyte% 7.4 % (0-10); NRBC Flagged by Analyzer 0.3 % (0-5); Neutrophil # 5.72 X10^3/uL (2.7-7.7); Neutrophil % 73.8 % (47-70); POSITIVE MORPHOLOGY YES; Platelet Count 336 K/mm3 (150-450); RBC Distribution Width CV 20.4 % (11.6-14.6); RBC Distribution Width SD 57.9 fl (35.1-43.9); Red Blood Count 2.89 M/mm3 (4.2-5.4); White Blood Count 7.7 K/mm3 (4.4-11.0)
[2024-11-09 06:14] LABS: Differential Indicated SCAN CRITERIA MET
[2024-11-09] MEDS: metroNIDAZOLE 500 MG/100 ML BAG 100 MG IV ×3 (06:49→21:06)
[2024-11-09] MEDS: Lactated Ringers 1,000 ML 100 ML IV (06:49)
[2024-11-09] MEDS: Insulin Lispro 100 UNIT/ML INSULN.PEN SC ×4 (06:52→21:06)
[2024-11-09 06:57] LABS: Anion Gap 6 (5-15); BUN 43 mg/dL (4-19); BUN/Creat Ratio 38.3 RATIO (10-20); Calcium,Total 9.2 mg/dL (7.6-11.0); Carbon Dioxide 25.4 mmol/L (21.0-32.0); Chloride 111 mmol/L (98-108); Creatinine, Serum 1.12 mg/dL (0.70-1.20); EST Glomerular Filtration Rate 53 (>60); Estimated Creatinine Clearance 59.89 ml/min (50-250); Glucose 178 mg/dL (70-99); Potassium 4.1 mmol/L (3.3-5.1); Sodium Level 142 mmol/L (133-145)
--- NOTE | 2024-11-09 08:21 | PCM.PN.SRG ---
Subjective Subjective Patient seen and examined during AM rounds. She is found resting in bed but states that she only wants to go to sleep and wishes to dismiss both myself and her nurse until tomorrow for any interventions. I was also advised by x-ray technicians that patient declined abdominal films this morning despite much insisting. This morning Mrs. Zimmer suggest that she has had ongoing bowel function with both flatus and bowel movements but nursing states there has not been evidence of the latter since her bowel movement yesterday. Objective Data Objective Data Vital Signs: Vital Signs Temp Pulse Resp BP Pulse Ox O2 Del Method O2 Flow Rate 97 F L 73 20 H 128/55 H 98 Nasal Cannula 1 11/09/24 06:00 11/09/24 06:00 11/09/24 06:00 11/09/24 06:00 11/09/24 06:00 11/09/24 07:55 11/09/24 07:55 FiO2 28 11/08/24 21:00 Oxygen Flow Rate (L/min) 1 Oxygen Delivery Method Nasal Cannula Weight: 244 lb 15.995 oz Body Mass Index (BMI) 39.5 Intake & Output: Intake and Output for Last 24 Hours 11/07/24 11/08/24 11/09/24 23:59 23:59 23:59 Intake Total 2775 / 2775 2452.83 / 2452.83 1100 / 1100 Output Total 990 / 990 420 / 420 Balance 1785 / 1785 2032.83 / 2032.83 1100 / 1100 Lab / Micro Data 11/09/24 05:50 11/09/24 05:50 Labs: Laboratory Results - last 24 hr 11/08/24 07:29: Differential Comment SCANNED, Anisocytosis 2+ 11/08/24 11:39: POC Glucose 194 H 11/08/24 13:15: Ammonia 14.3 11/08/24 16:36: POC Glucose 189 H 11/08/24 21:39: POC Glucose 198 H 11/09/24 05:50: WBC 7.7, RBC 2.89 L, Hgb 7.0 L, Hct 22.9 L, MCV 79.2 L, MCH 24.2 L, MCHC 30.6 L, RDW Std Deviation 57.9 H, RDW Coeff of Faby 20.4 H, Plt Count 336, MPV 9.4, Immature Gran % (Auto) 3.900 H, Neut % (Auto) 73.8 H, Lymph % (Auto) 13.2 L, Zapata % (Auto) 7.4, Eos % (Auto) 1.2, Baso % (Auto) 0.5, Absolute Neuts (auto) 5.7, Absolute Lymphs (auto) 1.02, Nucleated RBC % 0.3, Sodium 142, Potassium 4.1, Chloride 111 H, Carbon Dioxide 25.4, Anion Gap 6, BUN 43 H, Creatinine 1.12, Estim Creat Clear Calc 59.89, Est GFR (MDRD) Non-Af 53 L, BUN/Creatinine Ratio 38.3 H, Glucose 178 H, Calcium 9.2 Micro: Microbiology 11/04/24 Unknown Wound Abcess - Other Gram Stain - Final 11/04/24 Unknown Wound Abcess - Other Wound Culture - Preliminary Yeast, not Marguerite albicans Pseudomonas aeruginosa 11/04/24 Unknown Wound Abcess - Other Anaerobic Culture - Preliminary Checking for anaerobes, further studies to follow. 11/04/24 Unknown Implant - Other Gram Stain - Final 11/04/24 Unknown Implant - Other Wound Culture - Preliminary Yeast, not Marguerite albicans GNR Poss Pseudomonas sp 11/04/24 Unknown Implant - Other Anaerobic Culture - Preliminary Checking for anaerobes, further studies to follow. 10/30/24 10:46 Aspirate - Abdominal Gram Stain - Final 10/30/24 10:46 Aspirate - Abdominal Wound Culture - Final Presumptive C albicans Enterococcus faecalis 10/30/24 10:46 Aspirate - Abdominal Anaerobic Culture - Final No anaerobic bacteria isolated. 10/28/24 09:05 Wound Abcess - Abdominal Gram Stain - Final 10/28/24 09:05 Wound Abcess - Abdominal Wound Culture - Final Escherichia coli Presumptive C albicans 10/28/24 09:05 Wound Abcess - Abdominal Anaerobic Culture - Final No anaerobic bacteria isolated. 10/26/24 12:42 Blood Culture (Wb) - Left Hand Blood Culture - Final No growth in 5 days. 10/26/24 11:55 Blood Culture (Wb) - Other Blood Culture - Final No growth in 5 days. 10/25/24 06:05 Blood Culture (Wb) - Anticubital Left Blood Culture - Final Staphylococcus epidermidis 10/25/24 06:00 Blood Culture (Wb) - Anticubital Right Bacteria Detection (PCR) - Final Staphylococcus epidermidis mecA Resistance Marker 10/25/24 06:00 Blood Culture (Wb) - Anticubital Right Blood Culture - Final Gram positive organism ABG Data ABG results: ABG 11/08/24 16:55 Specimen Type ART Sample Site L Radial pH 7.36 Bicarbonate Actual 28.6 H Total CO2 30 Base Excess 3 H O2 Saturation 95 O2 % 2.0 ABG pCO2 50.3 H ABG pO2 82 Angel Test Positive O2 Delivery Device Cannula Vent Mode Not entered Radiography Diagnostic Testing: Radiology Impression KUB X-Ray 11/08/24 07:00 IMPRESSION: Dilation of the transverse colon, which is indeterminate in etiology given recent surgical history. Findings may represent postoperative ileus or persistent bowel obstruction. Progress abdominal radiographs recommended for continued evaluation. Reading Location: [id number] Physical Exam Const oriented x3 Constitutional Narrative: Hard of hearing Resp normal respiratory effort GI GI Narrative: Morbidly obese with right-lying pannus. Midline laparotomy wound left open with significant undermining towards the right approximately 12 cm. Fibrinous exudate that had been apparent earlier seems improved. There also appears to be less drainage of the wound. There is some mild fat necrosis along the wound edges more immediately. Patient continues to have tenderness with palpation of this area. I do not visualize any macario pockets of purulence. Fascia otherwise appears healthy and fascial closure appears intact. Assessment & Plan Assessment/Plan (1) Postoperative wound infection: PLAN: Patient is 68-year-old female status post exploratory laparotomy small bowel resection and reanastomosis as well as mesh removal 11/04/2024. Patient reporting ongoing bowel function, however, nursing denies any observation of a bowel movement. Patient continues on a clear liquid diet after KUB yesterday showed some gaseous distention of her colon. Had intended to follow this up with repeat KUB today, however, patient has been resistant. I discussed with patient the need for this exam and asked her to reconsider her position for a retry later this afternoon. Patient was witnessed saying that she would. Patient had wound appears stable to slightly improved today. Would like to consider repeating her wound cultures tomorrow and if preliminary studies are negative would consider beginning negative pressure wound VAC therapy in the next several days. Lastly, patient's day and night wake cycle is concerning for her risk of developing acute delirium. She has been advised of this concern and I have repeatedly tried to optimize her room to promote wakefulness during the day. Appreciate any additional efforts from nursing to continue this diligence. ? Wound care as established ? Repeat KUB to follow-up patient's colonic gas pattern this afternoon. If bowel gas pattern is reassuring we will plan to advance diet. ? Patient has been encouraged to work with her caregivers and mobilize as she is able ? Encourage I.S.?poor effort today ? Continue adherence to sleep schedule to promote normal circadian rhythm and mitigate risk for acute delirium. ? Continue IV antibiotics per ID recommendations ? Continue monitoring renal function, appreciate hospitalist assistance Ed Shirley MD General Surgery Endocrine Surgery Pager: [facility] [address] [place] [address], [address] [place] [id number] Office: [phone] Charges/Coding Visit Charges Inpatient E&M: 33637 Subs Hosp L2
[2024-11-09] MEDS: Ceftriaxone 1 GM/50 ML BAG IV (08:51)
[2024-11-09] MEDS: Carvedilol 25 MG Tablet PO ×2 (09:16→16:31)
[2024-11-09] MEDS: Nystatin Powder 15gm Bottle 1 APPLIC TOPICAL ×3 (09:19→21:06)
[2024-11-09] MEDS: Enoxaparin 40 MG/0.4 ML Syringe SC (09:19)
[2024-11-09] MEDS: Menthol/Lanolin/Calamine/Znox 113 GM Tube 1 APPLIC TOPICAL ×3 (09:19→21:05)
--- NOTE | 2024-11-09 11:05 | PN.HOSP_ITS ---
Reason for Visit Reason for Visit: Diagnoses Other acute postprocedural pain (10/23/24) Essential (primary) hypertension (10/23/24) Unspecified atrial fibrillation (10/23/24) Hypotension, unspecified (10/23/24) Incisional hernia with obstruction, without gangrene (10/23/24) Incisional hernia without obstruction or gangrene (10/23/24) Other and unspecified ventral hernia with obstruction, without gangrene (10/23/24) Ventral hernia without obstruction or gangrene (10/23/24) Dyspnea, unspecified (10/23/24) Bacteremia (10/23/24) Infection following a procedure, other surgical site, initial encounter (10/23/24) 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 states her abdomen has been feeling better. Tolerated BiPAP for about 3 hours last night. Objective Data Objective Data Vital Signs: Vital Signs Temp Pulse Resp BP Pulse Ox O2 Del Method O2 Flow Rate 36.5 C L 84 18 139/70 H 92 Room Air 1 11/09/24 09:09 11/09/24 09:09 11/09/24 09:09 11/09/24 09:09 11/09/24 09:09 11/09/24 10:00 11/09/24 07:55 FiO2 28 11/08/24 21:00 Oxygen Flow Rate (L/min) 1 Oxygen Delivery Method Room Air Weight: 111.13 kg Body Mass Index (BMI) 39.5 Intake & Output: Intake and Output for Last 24 Hours 11/07/24 11/08/24 11/09/24 23:59 23:59 23:59 Intake Total 2775 / 2775 2452.83 / 2452.83 1381.67 / 1381.67 Output Total 990 / 990 420 / 420 20 / 20 Balance 1785 / 1785 2032.83 / 2032.83 1361.67 / 1361.67 Lab / Micro Data 11/09/24 05:50 11/09/24 05:50 Labs: Laboratory Results - last 24 hr 11/08/24 11:39: POC Glucose 194 H 11/08/24 13:15: Ammonia 14.3 11/08/24 16:36: POC Glucose 189 H 11/08/24 21:39: POC Glucose 198 H 11/09/24 05:50: WBC 7.7, RBC 2.89 L, Hgb 7.0 L, Hct 22.9 L, MCV 79.2 L, MCH 24.2 L, MCHC 30.6 L, RDW Std Deviation 57.9 H, RDW Coeff of Faby 20.4 H, Plt Count 336, MPV 9.4, Immature Gran % (Auto) 3.900 H, Neut % (Auto) 73.8 H, Lymph % (Auto) 13.2 L, Nicholas % (Auto) 7.4, Eos % (Auto) 1.2, Baso % (Auto) 0.5, Absolute Neuts (auto) 5.7, Absolute Lymphs (auto) 1.02, Nucleated RBC % 0.3, Sodium 142, Potassium 4.1, Chloride 111 H, Carbon Dioxide 25.4, Anion Gap 6, BUN 43 H, Creatinine 1.12, Estim Creat Clear Calc 59.89, Est GFR (MDRD) Non-Af 53 L, B UN/Creatinine Ratio 38.3 H, Glucose 178 H, Calcium 9.2 Micro: Microbiology 11/04/24 Unknown Wound Abcess - Other Gram Stain - Final 11/04/24 Unknown Wound Abcess - Other Wound Culture - Final Yeast, not Marguerite albicans Pseudomonas aeruginosa 11/04/24 Unknown Wound Abcess - Other Anaerobic Culture - Final No anaerobic bacteria isolated. 11/04/24 Unknown Implant - Other Gram Stain - Final 11/04/24 Unknown Implant - Other Wound Culture - Final Yeast, not Marguerite albicans Pseudomonas aeruginosa 11/04/24 Unknown Implant - Other Anaerobic Culture - Final No anaerobic bacteria isolated. 10/30/24 10:46 Aspirate - Abdominal Gram Stain - Final 10/30/24 10:46 Aspirate - Abdominal Wound Culture - Final Presumptive C albicans Enterococcus faecalis 10/30/24 10:46 Aspirate - Abdominal Anaerobic Culture - Final No anaerobic bacteria isolated. 10/28/24 09:05 Wound Abcess - Abdominal Gram Stain - Final 10/28/24 09:05 Wound Abcess - Abdominal Wound Culture - Final Escherichia coli Presumptive C albicans 10/28/24 09:05 Wound Abcess - Abdominal Anaerobic Culture - Final No anaerobic bacteria isolated. 10/26/24 12:42 Blood Culture (Wb) - Left Hand Blood Culture - Final No growth in 5 days. 10/26/24 11:55 Blood Culture (Wb) - Other Blood Culture - Final No growth in 5 days. 10/25/24 06:05 Blood Culture (Wb) - Anticubital Left Blood Culture - Final Staphylococcus epidermidis 10/25/24 06:00 Blood Culture (Wb) - Anticubital Right Bacteria Detection (PCR) - Final Staphylococcus epidermidis mecA Resistance Marker 10/25/24 06:00 Blood Culture (Wb) - Anticubital Right Blood Culture - Final Gram positive organism ABG Data ABG results: ABG 11/08/24 16:55 Specimen Type ART Sample Site L Radial pH 7.36 Bicarbonate Actual 28.6 H Total CO2 30 Base Excess 3 H O2 Saturation 95 O2 % 2.0 ABG pCO2 50.3 H ABG pO2 82 Angel Test Positive O2 Delivery Device Cannula Vent Mode Not entered Physical Exam Const alert and no apparent distress Constitutional Narrative: more alert and interactive. HEENT head/scalp atraumatic and moist oral mucous membranes Resp normal respiratory effort and no retractions Cardio regular rate, regular rhythm, S1 normal heart sound and S2 normal heart sound GI normal to inspection, nondistended, normoactive bowel sounds, soft to palpation, non-tender and non-distended Extremity General Extremity: edema bilateral upper extremity and lower extremity Neuro Sensorium / Orientation: awake and alert Assessment & Plan Assessment/Plan (1) Bacteremia: PLAN: Plan JEANNE: * resolved. * Suspect contrast nephropathy. renal US unremarkable. FEUrea 14%, consistent with prerenal azotemia. Though began AFTER receiving IV contrast. Given the improvement, no additional work up at this time. * HLIV SBO * seen on CT from 11/03. * s/p SANDRINE on 11/04. * mgmt/diet per general surgery * CLD Bacteremia/Post op wound infection: * Staph epi positive on the 10/25. Repeats on 10/26 were negative. Wound culture showing yeast and Pseudomonas * on vancomycin, CTX, metronidazole, micafungin * ID following. afib: * carvedilol * apixaban ABLA * Hg down to 7 (was 13.7 on 10.23) * Recommend holding off transfusions unless hemoglobin 7 or less * Monitor Encephalopathy * overall improved * suspect metabolic * avoid potentiating medications. * pt previously declined head CT. As my suspicion for something other than metabolic was low, I feel it is reasonable to not perform head CT, at least for now. * Ammonia 14.3, so not hepatic encephalopathy. ABG showed a pCO2 50.3. Doubt CO2 narcosis, but BiPAP ordered QHS and with naps. Edema: * I do not feel her weights are accurate. IsOs show that she is 20 liters positive. * Will add PO furosemide 40 BID. Chronic conditoins: * DM2: NPO. On SSI. * HTN: meds held * Obesity Class II: complicates care and recovery. VTE prophylaxis: not indicated as already anticoagulated. Charges/Coding Visit Charges Inpatient E&M: 81613 Subs Hosp L2
--- NOTE | 2024-11-09 11:10 | RAD_ITS ---
PROCEDURE: ABDOMEN SINGLE VIEW (PORTABLE) 11/09/2024 REASON FOR EXAM: F/U COLONIC GAS TECHNIQUE: Single view abdomen. COMPARISON: Abdominal radiographs 11/08/2024. FINDINGS: Bowel gas: Minimal improved dilation of the transverse colon, now measuring up to 8.1 cm (previously 8.4 cm). Bones: There are degenerative changes of the spine. Chronic right rib fracture deformities. Other: Stable surgical drain overlying the right lower quadrant with safety pin overlying the pelvis. Gas within the right-sided body wall, compatible with recent surgery. RAD/Abdomen Single View (Portable) IMPRESSION: Minimal improvement in the dilated transverse colon from 1 day prior. Reading Location: [id number]
[2024-11-09] MEDS: Micafungin Sodium 100 MG in Dextrose 5%-Water (100mL Bag) 100 ML IV (11:27)
[2024-11-09 11:40] LABS: Bedside Glucose 164 mg/dL (74-106)
[2024-11-09] MEDS: Furosemide 40 MG Tablet PO ×2 (11:58→17:46)
[2024-11-09 12:15] LABS: Bedside Glucose 179 mg/dL (74-106)
[2024-11-09 17:00] LABS: Bedside Glucose 194 mg/dL (74-106)
[2024-11-09 17:35] LABS: Vancomycin, Trough Level 14.3 ug/mL (5.0-15.0)
--- NOTE | 2024-11-09 17:56 | PCM.RX.CS ---
Consult Antibiotic Management Pharmacy has been consulted to manage selected antibiotic: Vancomycin Type of Intervention Type of Consult: Follow-up Labs Labs: Sodium 142 mmol/L (133-145) 11/09/24 05:50 Potassium 4.1 mmol/L (3.3-5.1) 11/09/24 05:50 Chloride 111 mmol/L (98-108) H 11/09/24 05:50 Carbon Dioxide 25.4 mmol/L (21.0-32.0) 11/09/24 05:50 Anion Gap 6 (5-15) 11/09/24 05:50 BUN 43 mg/dL (4-19) H 11/09/24 05:50 Creatinine 1.12 mg/dL (0.70-1.20) 11/09/24 05:50 Est GFR (MDRD) Non-Af 53 (>60) L 11/09/24 05:50 BUN/Creatinine Ratio 38.3 RATIO (10-20) H 11/09/24 05:50 Glucose 178 mg/dL (70-99) H 11/09/24 05:50 Vancomycin Trough 14.3 ug/mL (5.0-15.0) 11/09/24 16:28 Random Vancomycin 19.1 ug/mL (0.0-15.0) H 11/07/24 08:15 Microbiology Microbiology: Microbiology 11/04/24 Unknown Wound Abcess - Other Gram Stain - Final 11/04/24 Unknown Wound Abcess - Other Wound Culture - Final Yeast, not Marguerite albicans Pseudomonas aeruginosa 11/04/24 Unknown Wound Abcess - Other Anaerobic Culture - Final No anaerobic bacteria isolated. 11/04/24 Unknown Implant - Other Gram Stain - Final 11/04/24 Unknown Implant - Other Wound Culture - Final Yeast, not Marguerite albicans Pseudomonas aeruginosa 11/04/24 Unknown Implant - Other Anaerobic Culture - Final No anaerobic bacteria isolated. 10/30/24 10:46 Aspirate - Abdominal Gram Stain - Final 10/30/24 10:46 Aspirate - Abdominal Wound Culture - Final Presumptive C albicans Enterococcus faecalis 10/30/24 10:46 Aspirate - Abdominal Anaerobic Culture - Final No anaerobic bacteria isolated. 10/28/24 09:05 Wound Abcess - Abdominal Gram Stain - Final 10/28/24 09:05 Wound Abcess - Abdominal Wound Culture - Final Escherichia coli Presumptive C albicans 10/28/24 09:05 Wound Abcess - Abdominal Anaerobic Culture - Final No anaerobic bacteria isolated. 10/26/24 12:42 Blood Culture (Wb) - Left Hand Blood Culture - Final No growth in 5 days. 10/26/24 11:55 Blood Culture (Wb) - Other Blood Culture - Final No growth in 5 days. 10/25/24 06:05 Blood Culture (Wb) - Anticubital Left Blood Culture - Final Staphylococcus epidermidis 10/25/24 06:00 Blood Culture (Wb) - Anticubital Right Bacteria Detection (PCR) - Final Staphylococcus epidermidis mecA Resistance Marker 10/25/24 06:00 Blood Culture (Wb) - Anticubital Right Blood Culture - Final Gram positive organism Goal Trough Goal Trough: 15-20 mcg/mL Pharmacy Plan for Drug Dosing Pharmacy Plan for Drug Dosing: VANCOMYCIN LEVEL RECEIVED Current Vancomycin Dose: 500mg IV Q24h Number of Doses Received: 2 (of current regimen) Vancomycin Level: 13.9 Hours Since Last Dose: 23.75hr Renal Function: 1.12 Renal Function Trend: improving, closer to baseline Lab/Micro: no new info Vancomycin Plan/Comments: The patient had a trough drawn which resulted in a value of 13.9 (goal 15-20). Patient is subtherapeutic. Will slightly increase dose to 750mg IV Q24hr to start 11/09/24 @1800 and recheck a trough in 2 days. Will be very cautious when increasing dose as the patient's levels have been very sensitive to changed in vancomycin dosing. Pending Level: 11/11/24 @1730 Pharmacy Service will continue to monitor and adjust dosing as required.
[2024-11-09] MEDS: Vancomycin HCl 750 MG in 0.9% Normal Saline (250mL Bag) 250 ML 250 MG IV (17:59)
[2024-11-09] MEDS: Atorvastatin Calcium 80 MG Tablet PO (21:06)
[2024-11-09 21:27] LABS: Bedside Glucose 248 mg/dL (74-106)
[2024-11-10] VITALS (11 sets, daily range): BP systolic 123–148; BP diastolic 41–74; PULSE 74–82; RESP 16–24; TEMP 36–37.4; O2SAT 93–97
[2024-11-10] MEDS: traMADol 50 MG Tablet PO (01:59)
[2024-11-10 04:36] LABS: Hematocrit 22.4 % (37-47); Mean Corp Hgb Conc 31.3 g/dL (32-36); Mean Corpuscular Hgb 24.5 pg (27.0-32.0); Mean Corpuscular Volume 78.3 fL (81-99); POSITIVE COUNT YES; POSITIVE MORPHOLOGY YES; Platelet Count 345 K/mm3 (150-450); RBC Distribution Width CV 20.7 % (11.6-14.6); RBC Distribution Width SD 57.8 fl (35.1-43.9); Red Blood Count 2.86 M/mm3 (4.2-5.4); White Blood Count 8.8 K/mm3 (4.4-11.0)
[2024-11-10 04:40] LABS: Differential Indicated MANUAL DIFF
[2024-11-10 05:01] LABS: Anion Gap 6 (5-15); BUN 35 mg/dL (4-19); BUN/Creat Ratio 32.9 RATIO (10-20); Calcium,Total 9.1 mg/dL (7.6-11.0); Carbon Dioxide 27.7 mmol/L (21.0-32.0); Chloride 106 mmol/L (98-108); Creatinine, Serum 1.05 mg/dL (0.70-1.20); EST Glomerular Filtration Rate 58 (>60); Estimated Creatinine Clearance 63.89 ml/min (50-250); Glucose 202 mg/dL (70-99); Potassium 3.5 mmol/L (3.3-5.1); Sodium Level 140 mmol/L (133-145)
[2024-11-10] MEDS: metroNIDAZOLE 500 MG/100 ML BAG 100 MG IV ×3 (05:26→22:30)
[2024-11-10 05:41] LABS: Basophil 2 % (0-1); Lymphocyte 8 % (19-41); Metamyelocyte 1 % (0-1); Monocyte 3 % (0-10); Myelocyte 1 % (0-0); Neutrophil-Segmented 85 % (47-70); Total Cells Counted 100 (MANUAL DIFF)
[2024-11-10 05:42] LABS: Absolute Neutrophil Count 7.4 X10^3/uL (2.0-7.7)
[2024-11-10 05:43] LABS: Platelet Estimate ADEQUATE (ADEQ); Polychromasia 1+
[2024-11-10 05:44] LABS: Acanthocytes RARE; Anisocytosis 3+; Microcytosis 2+; Ovalocyte 2+; Schistocytes RARE; Target Cells RARE; Tear Drop Cell RARE
[2024-11-10] MEDS: Insulin Lispro 100 UNIT/ML INSULN.PEN SC ×4 (06:47→21:19)
[2024-11-10 07:05] LABS: Bedside Glucose 192 mg/dL (74-106)
[2024-11-10] MEDS: Ipratropium/Albuterol Sulfate 3 ML AMPUL.NEB INHALATION ×3 (07:14→20:35)
--- NOTE | 2024-11-10 08:30 | PCM.PN.SRG ---
Subjective Subjective Patient evaluated resting comfortably in bed. She denies any concerns today. Objective Data Objective Data Vital Signs: Vital Signs Temp Pulse Resp BP Pulse Ox O2 Del Method O2 Flow Rate 98.0 F 81 20 H 125/56 H 94 Nasal Cannula 1 11/10/24 03:00 11/10/24 07:15 11/10/24 07:15 11/10/24 03:00 11/10/24 07:15 11/10/24 07:15 11/10/24 07:15 FiO2 28 11/10/24 04:30 Oxygen Flow Rate (L/min) 1 Oxygen Delivery Method Nasal Cannula Weight: 244 lb 15.995 oz Body Mass Index (BMI) 39.5 Intake & Output: Intake and Output for Last 24 Hours 11/08/24 11/09/24 11/10/24 23:59 23:59 23:59 Intake Total 2452.83 / 2452.83 2351.67 / 2591.67 460 / 460 Output Total 420 / 420 240 / 890 1150 / 1150 Balance 2032.83 / 2032.83 2111.67 / 1701.67 -690 / -690 Lab / Micro Data 11/10/24 04:20 11/10/24 04:20 Labs: Laboratory Results - last 24 hr 11/09/24 06:52: POC Glucose 164 H 11/09/24 11:55: POC Glucose 179 H 11/09/24 16:28: Vancomycin Trough 14.3, POC Glucose 194 H 11/09/24 21:00: POC Glucose 248 H 11/10/24 04:20: WBC 8.8, RBC 2.86 L, Hgb 7.0 L, Hct 22.4 L, MCV 78.3 L, MCH 24.5 L, MCHC 31.3 L, RDW Std Deviation 57.8 H, RDW Coeff of Faby 20.7 H, Plt Count 345, MPV 9.0, Neut % (Auto) Not Reportable, Absolute Neuts (auto) 7.4, Absolute Lymphs (auto) 0.70 L, Total Counted 100, Neutrophils % (Manual) 85 H, Lymphocytes % (Manual) 8 L, Monocytes % (Manual) 3, Basophils % (Manual) 2 H, Metamyelocytes % 1, Myelocytes % 1 H, Diff Path Review May foll, Platelet Estimate ADEQUATE, Polychromasia 1+, Anisocytosis 3+, Microcytosis 2+, Target Cells RARE, Tear Drop Cells RARE, Ovalocytes 2+, Acanthocytes (Spur) RARE, Schistocytes RARE, Sodium 140, Potassium 3.5, Chloride 106, Carbon Dioxide 27.7, Anion Gap 6, BUN 35 H, Creatinine 1.05, Estim Creat Clear Calc 63.89, Est GFR (MDRD) Non-Af 58 L, BUN/Creatinine Ratio 32.9 H, Glucose 202 H, Calcium 9.1 11/10/24 06:46: POC Glucose 192 H Micro: Microbiology 11/04/24 Unknown Wound Abcess - Other Gram Stain - Final 11/04/24 Unknown Wound Abcess - Other Wound Culture - Final Yeast, not Marguerite albicans Pseudomonas aeruginosa 11/04/24 Unknown Wound Abcess - Other Anaerobic Culture - Final No anaerobic bacteria isolated. 11/04/24 Unknown Implant - Other Gram Stain - Final 11/04/24 Unknown Implant - Other Wound Culture - Final Yeast, not Marguerite albicans Pseudomonas aeruginosa 11/04/24 Unknown Implant - Other Anaerobic Culture - Final No anaerobic bacteria isolated. 10/30/24 10:46 Aspirate - Abdominal Gram Stain - Final 10/30/24 10:46 Aspirate - Abdominal Wound Culture - Final Presumptive C albicans Enterococcus faecalis 10/30/24 10:46 Aspirate - Abdominal Anaerobic Culture - Final No anaerobic bacteria isolated. 10/28/24 09:05 Wound Abcess - Abdominal Gram Stain - Final 10/28/24 09:05 Wound Abcess - Abdominal Wound Culture - Final Escherichia coli Presumptive C albicans 10/28/24 09:05 Wound Abcess - Abdominal Anaerobic Culture - Final No anaerobic bacteria isolated. 10/26/24 12:42 Blood Culture (Wb) - Left Hand Blood Culture - Final No growth in 5 days. 10/26/24 11:55 Blood Culture (Wb) - Other Blood Culture - Final No growth in 5 days. 10/25/24 06:05 Blood Culture (Wb) - Anticubital Left Blood Culture - Final Staphylococcus epidermidis 10/25/24 06:00 Blood Culture (Wb) - Anticubital Right Bacteria Detection (PCR) - Final Staphylococcus epidermidis mecA Resistance Marker 10/25/24 06:00 Blood Culture (Wb) - Anticubital Right Blood Culture - Final Gram positive organism Radiography Diagnostic Testing: Radiology Impression KUB X-Ray 11/09/24 11:10 IMPRESSION: Minimal improvement in the dilated transverse colon from 1 day prior. Reading Location: [facility] Physical Exam GI GI Narrative: Abdomen- obese, right sided open wound with samaniego and intermittent pink tissue noted throughout the wound bed. There was a minimal amount of bloody/samaniego drainage on the kerlix. Wound tunnels to the right lateral side approximately. Measurements not obtained today. Wound was packed with Dakins dampened kerlix and covered with dry gauze and ABD pad. JERRI drain dressing was changed. JERRI drain with serosanguineous drainage noted. Deep wound culture obtained at bedside. Assessment & Plan Assessment/Plan (1) Postoperative wound infection: PLAN: I am following this patient in conjunction with Dr. Shah. She will independently evaluate this patient. Labs reviewed. WBC 8.8 today Wound with a minimal amount of slough. Recommend Dakins dressing change in the AM, Dry dressing change in the PM and saline dressing pattern changer and repairer night. (TID dressing changes) Possibly wound vac candidate in the near future. Culture obtained to determine if yeast component is still present Encourage patient to be sitting up in a chair and working on ambulation. Encourage I.S./PEEP every 30 minutes Continue IV antibiotics per ID recommendations Increase diet to transitional diet We will continue to monitor this patient Charges/Coding Visit Charges Inpatient E&M: 27386 Subs Hosp L1 (post-op; no charge)
[2024-11-10] MEDS: Cefepime HCl 2 GM in 0.9% Normal Saline (100mL MB+) 100 ML IV ×3 (09:13→21:20)
[2024-11-10] MEDS: Menthol/Lanolin/Calamine/Znox 113 GM Tube 1 APPLIC TOPICAL ×3 (09:14→21:17)
[2024-11-10] MEDS: Nystatin Powder 15gm Bottle 1 APPLIC TOPICAL ×3 (09:17→21:24)
[2024-11-10] MEDS: Furosemide 40 MG Tablet PO (09:28)
[2024-11-10] MEDS: Pantoprazole Sodium 40 MG Tablet PO (09:28)
[2024-11-10] MEDS: Glucerna Shake 120 ML LIQUID PO (09:28)
[2024-11-10] MEDS: Enoxaparin 40 MG/0.4 ML Syringe SC (09:29)
[2024-11-10] MEDS: Acetaminophen 325 MG Tablet 650 MG PO (09:40)
[2024-11-10] MEDS: Carvedilol 25 MG Tablet PO (09:41)
[2024-11-10] MEDS: Micafungin Sodium 100 MG in Dextrose 5%-Water (100mL Bag) 100 ML IV (09:41)
[2024-11-10 12:24] LABS: Bedside Glucose 205 mg/dL (74-106)
[2024-11-10] MEDS: 0.9% Saline Lock 10 ML Syringe IV ×3 (13:43→22:32)
--- NOTE | 2024-11-10 14:27 | PCM.PN.ID ---
Physical Exam Narrative Feeling ok, no fever, no abd pain Const alert and no apparent distress Resp normal air movement and clear to auscultation bilaterally Cardio regular rate and regular rhythm GI soft to palpation, non-tender and non-distended Skin no rashes or lesions noted ID ID: Route of nutrition/ use of supplements: [] Nutritional Intake: [] IV Site: [] Koo Catheter: [] Assessment & Plan Assessment/Plan (1) Postoperative wound infection: PLAN: OR again 11/04/24 with drainage of purulence and partial small bowel resection, cxs from surgery with non albicans yeast and now cefepime. Will change to vanc/cefepime/flagyl/micafungin. Will follow
--- NOTE | 2024-11-10 15:20 | PN_ITS ---
Subjective Subjective Patient seen and examined. She had no active complaints. She denied any pain, fever, chills, cough, chest pain, palpitations, dizziness, nausea, vomiting or any other symptoms. Review of systems is otherwise negative. Objective Data Objective Data Vital Signs: Vital Signs Temp Pulse Resp BP Pulse Ox O2 Del Method O2 Flow Rate 98.4 F 77 16 123/42 H 96 Nasal Cannula 1 11/10/24 13:35 11/10/24 13:35 11/10/24 13:35 11/10/24 13:35 11/10/24 13:35 11/10/24 13:35 11/10/24 13:35 FiO2 28 11/10/24 04:30 Oxygen Flow Rate (L/min) 1 Oxygen Delivery Method Nasal Cannula Weight: 244 lb 15.995 oz Body Mass Index (BMI) 39.5 Intake & Output: Intake and Output for Last 24 Hours 11/08/24 11/09/24 11/10/24 23:59 23:59 23:59 Intake Total 2452.83 / 2452.83 2351.67 / 2591.67 865 / 865 Output Total 420 / 420 240 / 890 1150 / 1150 Balance 2032.83 / 2032.83 2111.67 / 1701.67 -285 / -285 Lab / Micro Data 11/10/24 04:20 11/10/24 04:20 Labs: Laboratory Results - last 24 hr 11/09/24 16:28: Vancomycin Trough 14.3, POC Glucose 194 H 11/09/24 21:00: POC Glucose 248 H 11/10/24 04:20: WBC 8.8, RBC 2.86 L, Hgb 7.0 L, Hct 22.4 L, MCV 78.3 L, MCH 24.5 L, MCHC 31.3 L, RDW Std Deviation 57.8 H, RDW Coeff of Faby 20.7 H, Plt Count 345, MPV 9.0, Neut % (Auto) Not Reportable, Absolute Neuts (auto) 7.4, Absolute Lymphs (auto) 0.70 L, Total Counted 100, Neutrophils % (Manual) 85 H, L ymphocytes % (Manual) 8 L, Monocytes % (Manual) 3, Basophils % (Manual) 2 H, Metamyelocytes % 1, Myelocytes % 1 H, Diff Path Review May foll, Platelet Estimate ADEQUATE, Polychromasia 1+, Anisocytosis 3+, Microcytosis 2+, Target Cells RARE, Tear Drop Cells RARE, Ovalocytes 2+, Acanthocytes (Spur) RARE, Schistocytes RARE, Sodium 140, Potassium 3.5, Chloride 106, Carbon Dioxide 27.7, Anion Gap 6, BUN 35 H, Creatinine 1.05, Estim Creat Clear Calc 63.89, Est GFR (MDRD) Non-Af 58 L, BUN/Creatinine Ratio 32.9 H, Glucose 202 H, Calcium 9.1 11/10/24 06:46: POC Glucose 192 H 11/10/24 12:07: POC Glucose 205 H Micro: Microbiology 11/04/24 Unknown Wound Abcess - Other Gram Stain - Final 11/04/24 Unknown Wound Abcess - Other Wound Culture - Final Yeast, not Marguerite albicans Pseudomonas aeruginosa 11/04/24 Unknown Wound Abcess - Other Anaerobic Culture - Final No anaerobic bacteria isolated. 11/04/24 Unknown Implant - Other Gram Stain - Final 11/04/24 Unknown Implant - Other Wound Culture - Final Yeast, not Marguerite albicans Pseudomonas aeruginosa 11/04/24 Unknown Implant - Other Anaerobic Culture - Final No anaerobic bacteria isolated. 10/30/24 10:46 Aspirate - Abdominal Gram Stain - Final 10/30/24 10:46 Aspirate - Abdominal Wound Culture - Final Presumptive C albicans Enterococcus faecalis 10/30/24 10:46 Aspirate - Abdominal Anaerobic Culture - Final No anaerobic bacteria isolated. 10/28/24 09:05 Wound Abcess - Abdominal Gram Stain - Final 10/28/24 09:05 Wound Abcess - Abdominal Wound Culture - Final Escherichia coli Presumptive C albicans 10/28/24 09:05 Wound Abcess - Abdominal Anaerobic Culture - Final No anaerobic bacteria isolated. 10/26/24 12:42 Blood Culture (Wb) - Left Hand Blood Culture - Final No growth in 5 days. 10/26/24 11:55 Blood Culture (Wb) - Other Blood Culture - Final No growth in 5 days. 10/25/24 06:05 Blood Culture (Wb) - Anticubital Left Blood Culture - Final Staphylococcus epidermidis 10/25/24 06:00 Blood Culture (Wb) - Anticubital Right Bacteria Detection (PCR) - Final Staphylococcus epidermidis mecA Resistance Marker 10/25/24 06:00 Blood Culture (Wb) - Anticubital Right Blood Culture - Final Gram positive organism Physical Exam Const alert, oriented x3 and no apparent distress Constitutional Narrative: class III obesity General Appearance: cooperative HEENT normocephalic, head/scalp atraumatic, moist oral mucous membranes and oropharynx normal Eyes PERRL and EOMs intact bilaterally Neck no lymphadenopathy, supple and no JVD Lymph Lymphatic: no lymphadenopathy noted and no lymphedema noted Resp Resp Narrative: mildly diminished breath sounds bibasally, no wheezes or crackles. on 1L of oxygen b Cardio regular rate, regular rhythm, S1 normal heart sound, S2 normal heart sound and no murmurs GI normal to inspection, nondistended, normoactive bowel sounds, soft to palpation, non-tender and non-distended Extremity normal capillary refill, no clubbing, cyanosis or edema and no calf tenderness General Extremity: no tenderness to palpation of joints or extremities Skin General Skin Exam: no breakdown Neuro CN's II-XII intact bilaterally, no focal motor deficits and no sensory deficits noted Motor Exam: strength 5/5 throughout and general weakness Psych thought process normal, cooperative and affect normal Appearance: appropriate Assessment & Plan Assessment/Plan (1) Postoperative wound infection: (2) Ventral hernia: QUALIFIERS: Obstruction and gangrene presence: with obstruction but without gangrene Qualified Code(s): K43.6 - Other and unspecified ventral hernia with obstruction, without gangrene PLAN: Plan #JEANNE: resolved #Small bowel obstruction * seen on CT from 11/03/2024. * management as per general surgery * #Post op surgical site infection * Wound cultures growing yeast and pseudomonas. * blood cultures positive for Staph epidermidis * on IV vancomycin, cefepime, metronidazole and micafungin * management as per ID. * #afib: on carvedilol and eliquis #Acute blood loss anemia: * Transfuse if hemoglobin is less than 7. Hb today is 7. #Acute encephalopathy: * Improving. Patient able to wake up and communicate. * Avoid sedating medication. * Patient had previously refused Ct of the brain. * Ammonia level was not elevated. #Type 2 diabetes mellitus: still NPO. ISS. Accuchecks q6hrly. #Fluid overload: she was noted to be 20L in positive fluid balance. On PO lasix 40mg bid. #Hypertension: on carvedilol. #Class III obesity: complicates acute care, expected recovery and prognosis DVT prophylaxis: already on eliquis. Charges/Coding Visit Charges Inpatient E&M: 84344 Subs Hosp L2
[2024-11-10 17:41] LABS: Bedside Glucose 249 mg/dL (74-106)
[2024-11-10] MEDS: Vancomycin HCl 750 MG in 0.9% Normal Saline (250mL Bag) 250 ML 250 MG IV (18:40)
--- NOTE | 2024-11-10 20:35 | CPS ---
Pt's refusing to wear BiPAP tonight.
[2024-11-10] MEDS: Atorvastatin Calcium 80 MG Tablet PO (21:25)
[2024-11-10] MEDS: Morphine 2 MG/ML Syringe IV (22:30)
[2024-11-10 22:59] LABS: Bedside Glucose 256 mg/dL (74-106)
[2024-11-11] VITALS (13 sets, daily range): BP systolic 127–137; BP diastolic 51–65; PULSE 67–82; RESP 14–26; TEMP 35.9–37; O2SAT 91–99
[2024-11-11] MEDS: Ipratropium/Albuterol Sulfate 3 ML AMPUL.NEB INHALATION ×2 (00:55→19:00)
[2024-11-11] MEDS: Cefepime HCl 2 GM in 0.9% Normal Saline (100mL MB+) 100 ML IV ×3 (05:20→21:16)
[2024-11-11] MEDS: metroNIDAZOLE 500 MG/100 ML BAG 100 MG IV ×3 (06:18→22:08)
[2024-11-11] MEDS: Insulin Lispro 100 UNIT/ML INSULN.PEN SC ×4 (06:23→22:11)
[2024-11-11 06:43] LABS: Bedside Glucose 184 mg/dL (74-106)
--- NOTE | 2024-11-11 08:40 | WOUNDNOTE ---
Dr Shirley and ASIA Gee in to change abdominal dressing this am. will assess this afternoon and change dressing again. will continue TID dressing changes until wound ready for wound VAC placement.
[2024-11-11 08:41] LABS: Absolute Lymphocyte Count 1.22 X10^3/uL (0.83-4.51); Absolute Neutrophil Count 5.3 X10^3/uL (2.0-7.7); Basophil% 1.3 % (0-1); Eosinophil# 0.08 X10^3/uL; Hematocrit 25.9 % (37-47); Hemoglobin 7.4 g/dL (12.0-15.0); Lymphocyte # 1.22 X10^3/ul (0.83-4.51); Lymphocyte % 15.5 % (19-41); Mean Corp Hgb Conc 28.6 g/dL (32-36); Mean Corpuscular Hgb 24.3 pg (27.0-32.0); Mean Corpuscular Volume 85.2 fL (81-99); Mean Platelet Vol. 10.2 fl (6.2-12.0); Monocyte# 0.83 X10^3/uL; Monocyte% 10.5 % (0-10); NRBC Flagged by Analyzer 0.6 % (0-5); Neutrophil # 5.31 X10^3/uL (2.7-7.7); Neutrophil % 67.3 % (47-70); POSITIVE MORPHOLOGY YES; Platelet Count 179 K/mm3 (150-450); RBC Distribution Width CV 21.6 % (11.6-14.6); RBC Distribution Width SD 64.9 fl (35.1-43.9); Red Blood Count 3.04 M/mm3 (4.2-5.4); White Blood Count 7.9 K/mm3 (4.4-11.0)
[2024-11-11 08:45] LABS: Differential Indicated SCAN CRITERIA MET
[2024-11-11] MEDS: Carvedilol 25 MG Tablet PO ×2 (08:47→17:17)
[2024-11-11] MEDS: Glucerna Shake 120 ML LIQUID PO ×2 (08:48→11:34)
[2024-11-11 08:49] LABS: Anion Gap 8 (5-15); BUN 25 mg/dL (4-19); BUN/Creat Ratio 28.3 RATIO (10-20); Calcium,Total 8.8 mg/dL (7.6-11.0); Carbon Dioxide 22.3 mmol/L (21.0-32.0); Chloride 108 mmol/L (98-108); EST Glomerular Filtration Rate 70 (>60); Estimated Creatinine Clearance 74.54 ml/min (50-250); Glucose 191 mg/dL (70-99); Potassium 3.8 mmol/L (3.3-5.1); Sodium Level 138 mmol/L (133-145)
[2024-11-11] MEDS: Furosemide 40 MG Tablet PO ×2 (08:52→17:18)
[2024-11-11] MEDS: Pantoprazole Sodium 40 MG Tablet PO (08:56)
[2024-11-11] MEDS: Enoxaparin 40 MG/0.4 ML Syringe SC (08:56)
--- NOTE | 2024-11-11 10:11 | PN.SURG_ITS ---
Subjective Subjective Patient evaluated resting comfortably in bed. She seems more alert this morning. She denies any nausea, vomiting. She notes abdominal discomfort at the wound site. She is tolerating her transitional diet. She is passing flatus and having bowel movements. Objective Data Objective Data Vital Signs: Vital Signs Temp Pulse Resp BP Pulse Ox O2 Del Method O2 Flow Rate 98.5 F 82 20 H 127/51 H 93 Nasal Cannula 1 11/11/24 08:13 11/11/24 09:35 11/11/24 08:13 11/11/24 08:13 11/11/24 08:13 11/11/24 09:35 11/11/24 09:35 FiO2 28 11/10/24 04:30 Oxygen Flow Rate (L/min) 1 Oxygen Delivery Method Nasal Cannula Weight: 244 lb 15.995 oz Body Mass Index (BMI) 39.5 Intake & Output: Intake and Output for Last 24 Hours 11/09/24 11/10/24 11/11/24 23:59 23:59 23:59 Intake Total 2351.67 / 2591.67 1330 / 1330 100 / 100 Output Total 240 / 890 2310 / 2310 400 / 400 Balance 2111.67 / 1701.67 -980 / -980 -300 / -300 Lab / Micro Data 11/11/24 07:40 11/11/24 07:40 Labs: Laboratory Results - last 24 hr 11/10/24 12:07: POC Glucose 205 H 11/10/24 17:16: POC Glucose 249 H 11/10/24 21:16: POC Glucose 256 H 11/11/24 06:22: POC Glucose 184 H 11/11/24 07:40: WBC 7.9, RBC 3.04 L, Hgb 7.4 L, Hct 25.9 L, MCV 85.2 D, MCH 24.3 L, MCHC 28.6 L D, RDW Std Deviation 64.9 H, RDW Coeff of Faby 21.6 H, Plt Count 179, MPV 10.2, Immature Gran % (Auto) 4.400 H, Neut % (Auto) 67.3, Lymph % (Auto) 15.5 L, [place] % (Auto) 10.5 H, Eos % (Auto) 1.0, Baso % (Auto) 1.3 H, Absolute Neuts (auto) 5.3, Absolute Lymphs (auto) 1.22, Nucleated RBC % 0.6, Sodium 138, Potassium 3.8, Chloride 108, Carbon Dioxide 22.3, Anion Gap 8, BUN 25 H, Creatinine 0.90, Estim Creat Clear Calc 74.54, Est GFR (MDRD) Non-Af 70, B UN/Creatinine Ratio 28.3 H, Glucose 191 H, Calcium 8.8 Micro: Microbiology 11/10/24 08:00 Wound - Abdominal Wound Culture - Preliminary No growth-Final to follow 11/04/24 Unknown Wound Abcess - Other Gram Stain - Final 11/04/24 Unknown Wound Abcess - Other Wound Culture - Final Yeast, not Marguerite albicans Pseudomonas aeruginosa 11/04/24 Unknown Wound Abcess - Other Anaerobic Culture - Final No anaerobic bacteria isolated. 11/04/24 Unknown Implant - Other Gram Stain - Final 11/04/24 Unknown Implant - Other Wound Culture - Final Yeast, not Marguerite albicans Pseudomonas aeruginosa 11/04/24 Unknown Implant - Other Anaerobic Culture - Final No anaerobic bacteria isolated. 10/30/24 10:46 Aspirate - Abdominal Gram Stain - Final 10/30/24 10:46 Aspirate - Abdominal Wound Culture - Final Presumptive C albicans Enterococcus faecalis 10/30/24 10:46 Aspirate - Abdominal Anaerobic Culture - Final No anaerobic bacteria isolated. 10/28/24 09:05 Wound Abcess - Abdominal Gram Stain - Final 10/28/24 09:05 Wound Abcess - Abdominal Wound Culture - Final Escherichia coli Presumptive C albicans 10/28/24 09:05 Wound Abcess - Abdominal Anaerobic Culture - Final No anaerobic bacteria isolated. 10/26/24 12:42 Blood Culture (Wb) - Left Hand Blood Culture - Final No growth in 5 days. 10/26/24 11:55 Blood Culture (Wb) - Other Blood Culture - Final No growth in 5 days. 10/25/24 06:05 Blood Culture (Wb) - Anticubital Left Blood Culture - Final Staphylococcus epidermidis 10/25/24 06:00 Blood Culture (Wb) - Anticubital Right Bacteria Detection (PCR) - Final Staphylococcus epidermidis mecA Resistance Marker 10/25/24 06:00 Blood Culture (Wb) - Anticubital Right Blood Culture - Final Gram positive organism Physical Exam GI GI Narrative: Abdomen- obese, right sided open wound with healthy pink granulation tissue noted throughout the wound bed. There was a minimal amount of bloody/[place] drainage on the kerlix. Wound tunnels to the right lateral side. Measurements not obtained today. Wound was packed with dry kerlix and covered with ABD pad. JERRI drain dressing was changed. JERRI drain with serosanguineous drainage noted. Assessment & Plan Assessment/Plan (1) Postoperative wound infection: PLAN: I am following this patient in conjunction with Dr. Shirley in Dr. Shah's absence. He has independently evaluated this patient. Labs reviewed. WBC 7.9 today Wound with a minimal amount of slough. Recommend Dry dressing change in the AM, Dakins dressing change in the PM and Dry dressing address change clerk night. (TID dressing changes) Possibly wound vac candidate on pending wound culture results. If yeast is still present, no wound vac will be placed. Culture results pending Encourage patient to be sitting up in a chair and working on ambulation. Encourage I.S./PEEP every 30 minutes Continue IV antibiotics per ID recommendations We will continue to monitor this patient Charges/Coding Visit Charges Inpatient E&M: 26073 [facility] Hosp L1 (no charge; post-op)
[2024-11-11 10:16] LABS: Polychromasia 1+
[2024-11-11 10:17] LABS: Anisocytosis 2+; Ovalocyte 1+; Platelet Estimate A (ADEQ)
--- NOTE | 2024-11-11 10:26 | PCM.PN.ID ---
Physical Exam Narrative Feeling ok, no fever, no abd pain, drinking some sips water Const alert and no apparent distress General Appearance: cooperative Resp normal air movement and clear to auscultation bilaterally Cardio regular rate and regular rhythm GI soft to palpation, non-tender and non-distended Skin no rashes or lesions noted ID ID: Route of nutrition/ use of supplements: [] Nutritional Intake: [] IV Site: [] Koo Catheter: [] Assessment & Plan Assessment/Plan (1) Postoperative wound infection: PLAN: OR again 11/04/24 with drainage of purulence and partial small bowel resection, cxs from surgery with non albicans yeast and now PsA. Will cont vanc/cefepime/flagyl/micafungin. Will follow
[2024-11-11] MEDS: Micafungin Sodium 100 MG in Dextrose 5%-Water (100mL Bag) 100 ML IV (10:31)
[2024-11-11] MEDS: 0.9% Normal Saline (100mL Bag) 100 ML 15 ML IV ×2 (10:34→15:06)
[2024-11-11] MEDS: Nystatin Powder 15gm Bottle 1 APPLIC TOPICAL ×3 (10:46→22:13)
[2024-11-11] MEDS: Menthol/Lanolin/Calamine/Znox 113 GM Tube 1 APPLIC TOPICAL ×3 (10:48→22:13)
[2024-11-11 11:18] LABS: Bedside Glucose 234 mg/dL (74-106)
--- NOTE | 2024-11-11 12:56 | PN_ITS ---
Subjective Subjective Patient seen and examined. She had no active complaints. She had an uneventful night. She was on 1 L of oxygen. Previous symptoms otherwise negative. Chest minimal dynamically stable. Objective Data Objective Data Vital Signs: Vital Signs Temp Pulse Resp BP Pulse Ox O2 Del Method O2 Flow Rate 98.5 F 82 20 H 127/51 H 93 Nasal Cannula 1 11/11/24 08:13 11/11/24 09:35 11/11/24 08:13 11/11/24 08:13 11/11/24 08:13 11/11/24 10:15 11/11/24 10:15 FiO2 28 11/10/24 04:30 Oxygen Flow Rate (L/min) 1 Oxygen Delivery Method Nasal Cannula Weight: 244 lb 15.995 oz Body Mass Index (BMI) 39.5 Intake & Output: Intake and Output for Last 24 Hours 11/09/24 11/10/24 11/11/24 23:59 23:59 23:59 Intake Total 2351.67 / 2591.67 1330 / 1330 200 / 200 Output Total 240 / 890 2310 / 2310 400 / 400 Balance 2111.67 / 1701.67 -980 / -980 -200 / -200 Lab / Micro Data 11/11/24 07:40 11/11/24 07:40 Labs: Laboratory Results - last 24 hr 11/10/24 17:16: POC Glucose 249 H 11/10/24 21:16: POC Glucose 256 H 11/11/24 06:22: POC Glucose 184 H 11/11/24 07:40: WBC 7.9, RBC 3.04 L, Hgb 7.4 L, Hct 25.9 L, MCV 85.2 D, MCH 24.3 L, MCHC 28.6 L D, RDW Std Deviation 64.9 H, RDW Coeff of Faby 21.6 H, Plt Count 179, MPV 10.2, Immature Gran % (Auto) 4.400 H, Neut % (Auto) 67.3, Lymph % (Auto) 15.5 L, [place] % (Auto) 10.5 H, Eos % (Auto) 1.0, Baso % (Auto) 1.3 H, Absolute Neuts (auto) 5.3, Absolute Lymphs (auto) 1.22, Nucleated RBC % 0.6, Platelet Estimate A, Polychromasia 1+, Anisocytosis 2+, Ovalocytes 1+, Sodium 138, Potassium 3.8, Chloride 108, Carbon Dioxide 22.3, Anion Gap 8, BUN 25 H, Creatinine 0.90, Estim Creat Clear Calc 74.54, Est GFR (MDRD) Non-Af 70, B UN/Creatinine Ratio 28.3 H, Glucose 191 H, Calcium 8.8 11/11/24 10:57: POC Glucose 234 H Micro: Microbiology 11/10/24 08:00 Wound - Abdominal Gram Stain - Final 11/10/24 08:00 Wound - Abdominal Wound Culture - Preliminary No growth-Final to follow 11/04/24 Unknown Wound Abcess - Other Gram Stain - Final 11/04/24 Unknown Wound Abcess - Other Wound Culture - Final Yeast, not Marguerite albicans Pseudomonas aeruginosa 11/04/24 Unknown Wound Abcess - Other Anaerobic Culture - Final No anaerobic bacteria isolated. 11/04/24 Unknown Implant - Other Gram Stain - Final 11/04/24 Unknown Implant - Other Wound Culture - Final Yeast, not Marguerite albicans Pseudomonas aeruginosa 11/04/24 Unknown Implant - Other Anaerobic Culture - Final No anaerobic bacteria isolated. 10/30/24 10:46 Aspirate - Abdominal Gram Stain - Final 10/30/24 10:46 Aspirate - Abdominal Wound Culture - Final Presumptive C albicans Enterococcus faecalis 10/30/24 10:46 Aspirate - Abdominal Anaerobic Culture - Final No anaerobic bacteria isolated. 10/28/24 09:05 Wound Abcess - Abdominal Gram Stain - Final 10/28/24 09:05 Wound Abcess - Abdominal Wound Culture - Final Escherichia coli Presumptive C albicans 10/28/24 09:05 Wound Abcess - Abdominal Anaerobic Culture - Final No anaerobic bacteria isolated. 10/26/24 12:42 Blood Culture (Wb) - Left Hand Blood Culture - Final No growth in 5 days. 10/26/24 11:55 Blood Culture (Wb) - Other Blood Culture - Final No growth in 5 days. 10/25/24 06:05 Blood Culture (Wb) - Anticubital Left Blood Culture - Final Staphylococcus epidermidis 10/25/24 06:00 Blood Culture (Wb) - Anticubital Right Bacteria Detection (PCR) - Final Staphylococcus epidermidis mecA Resistance Marker 10/25/24 06:00 Blood Culture (Wb) - Anticubital Right Blood Culture - Final Gram positive organism Physical Exam Const alert, oriented x3 and no apparent distress Constitutional Narrative: class III obesity General Appearance: cooperative Orientation / Consciousness: confused HEENT normocephalic, head/scalp atraumatic, moist oral mucous membranes and oropharynx normal Eyes PERRL and EOMs intact bilaterally Neck no lymphadenopathy, supple and no JVD Lymph Lymphatic: no lymphadenopathy noted and no lymphedema noted Resp Resp Narrative: mildly diminished breath sounds bibasally, no wheezes or crackles. on 1L of oxygen Cardio regular rate, regular rhythm, S1 normal heart sound, S2 normal heart sound and no murmurs GI normal to inspection, nondistended, normoactive bowel sounds, soft to palpation, non-tender and non-distended Palpation: tender Extremity normal to inspection, full ROM, normal capillary refill, no clubbing, cyanosis or edema and no calf tenderness General Extremity: edema bilateral upper extremity and lower extremity and no tenderness to palpation of joints or extremities Skin General Skin Exam: no breakdown Neuro CN's II-XII intact bilaterally, no focal motor deficits and no sensory deficits noted Sensorium / Orientation: awake and alert Motor Exam: strength 5/5 throughout and general weakness Psych thought process normal, cooperative and affect normal Appearance: appropriate Assessment & Plan Assessment/Plan (1) Postoperative wound infection: (2) Ventral hernia: QUALIFIERS: Obstruction and gangrene presence: with obstruction but without gangrene Qualified Code(s): K43.6 - Other and unspecified ventral hernia with obstruction, without gangrene PLAN: Plan #JEANNE: resolved #Small bowel obstruction * seen on CT from 11/03/2024. * management as per general surgery * #Post op surgical site infection * Wound cultures growing yeast and pseudomonas. * blood cultures positive for Staph epidermidis * on IV vancomycin, cefepime, metronidazole and micafungin * management as per ID. * #afib: on carvedilol and eliquis #Acute blood loss anemia: * Transfuse if hemoglobin is less than 7. Hb today is 7.4. #Acute encephalopathy: * Improving. Patient able to wake up and communicate. * Avoid sedating medication. * Patient had previously refused Ct of the brain. * Ammonia level was not elevated. #Type 2 diabetes mellitus: on ISS. Accuchecks ACHS. #Fluid overload: still in 20L positive fluid balance. On PO lasix 40mg bid. #Hypertension: on carvedilol. #Class III obesity: complicates acute care, expected recovery and prognosis DVT prophylaxis: already on eliquis. Charges/Coding Visit Charges Inpatient E&M: 20371 Subs Hosp L2
[2024-11-11] MEDS: oxyCODONE 5 MG Tablet PO (13:18)
--- NOTE | 2024-11-11 14:48 | WOUNDNOTE ---
wound photo: right abdomen
[2024-11-11] MEDS: 0.9% Saline Lock 10 ML Syringe IV ×3 (15:07→22:07)
--- NOTE | 2024-11-11 15:14 | WOUNDNOTE ---
Called and talked with nurse from [facility]. state they use [employer] wound VAC's they believe. state they do use white and black foam.
[2024-11-11 17:03] LABS: Bedside Glucose 216 mg/dL (74-106)
[2024-11-11] MEDS: traMADol 50 MG Tablet PO (17:22)
[2024-11-11 18:56] LABS: Vancomycin, Trough Level 13.9 ug/mL (5.0-15.0)
--- NOTE | 2024-11-11 19:11 | PCM.RX.CS ---
Consult Antibiotic Management Pharmacy has been consulted to manage selected antibiotic: Vancomycin Type of Intervention Type of Consult: Follow-up Prior Doses of Antibiotics Prior Doses of Antibiotics Received/Current Regimen: current dose is vanc 750mg IV q24h Labs Labs: Sodium 138 mmol/L (133-145) 11/11/24 07:40 Potassium 3.8 mmol/L (3.3-5.1) 11/11/24 07:40 Chloride 108 mmol/L (98-108) 11/11/24 07:40 Carbon Dioxide 22.3 mmol/L (21.0-32.0) 11/11/24 07:40 Anion Gap 8 (5-15) 11/11/24 07:40 BUN 25 mg/dL (4-19) H 11/11/24 07:40 Creatinine 0.90 mg/dL (0.70-1.20) 11/11/24 07:40 Est GFR (MDRD) Non-Af 70 (>60) 11/11/24 07:40 BUN/Creatinine Ratio 28.3 RATIO (10-20) H 11/11/24 07:40 Glucose 191 mg/dL (70-99) H 11/11/24 07:40 Vancomycin Trough 13.9 ug/mL (5.0-15.0) 11/11/24 17:50 Random Vancomycin 19.1 ug/mL (0.0-15.0) H 11/07/24 08:15 Microbiology Microbiology: Microbiology 11/10/24 08:00 Wound - Abdominal Gram Stain - Final 11/10/24 08:00 Wound - Abdominal Wound Culture - Preliminary No growth-Final to follow 11/04/24 Unknown Wound Abcess - Other Gram Stain - Final 11/04/24 Unknown Wound Abcess - Other Wound Culture - Final Yeast, not Marguerite albicans Pseudomonas aeruginosa 11/04/24 Unknown Wound Abcess - Other Anaerobic Culture - Final No anaerobic bacteria isolated. 11/04/24 Unknown Implant - Other Gram Stain - Final 11/04/24 Unknown Implant - Other Wound Culture - Final Yeast, not Marguerite albicans Pseudomonas aeruginosa 11/04/24 Unknown Implant - Other Anaerobic Culture - Final No anaerobic bacteria isolated. 10/30/24 10:46 Aspirate - Abdominal Gram Stain - Final 10/30/24 10:46 Aspirate - Abdominal Wound Culture - Final Presumptive C albicans Enterococcus faecalis 10/30/24 10:46 Aspirate - Abdominal Anaerobic Culture - Final No anaerobic bacteria isolated. 10/28/24 09:05 Wound Abcess - Abdominal Gram Stain - Final 10/28/24 09:05 Wound Abcess - Abdominal Wound Culture - Final Escherichia coli Presumptive C albicans 10/28/24 09:05 Wound Abcess - Abdominal Anaerobic Culture - Final No anaerobic bacteria isolated. 10/26/24 12:42 Blood Culture (Wb) - Left Hand Blood Culture - Final No growth in 5 days. 10/26/24 11:55 Blood Culture (Wb) - Other Blood Culture - Final No growth in 5 days. 10/25/24 06:05 Blood Culture (Wb) - Anticubital Left Blood Culture - Final Staphylococcus epidermidis 10/25/24 06:00 Blood Culture (Wb) - Anticubital Right Bacteria Detection (PCR) - Final Staphylococcus epidermidis mecA Resistance Marker 10/25/24 06:00 Blood Culture (Wb) - Anticubital Right Blood Culture - Final Gram positive organism Dosing Weight Weight used for dosin kg Estimated Creatinine Clearance Estimated Creatinine Clearance: 75 ml/min Goal Trough Goal Trough: 15-20 mcg/mL Pharmacy Plan for Drug Dosing Pharmacy Plan for Drug Dosing: The vanc trough drawn at 17:50 today (approximately 23 hours after the last dose) was 13.9 mcg/ml. This is below goal range and unchanged since the previous trough two days ago before the dose was increased to 750mg q24h. Since below goal again, will increase dose slightly to 1000mg q24h. Of note, the patient's SCr today has improved to 0.90, which is down significantly from a few days ago when it was 1.89 and 1.62 on consecutive days. Will check another trough in 2 days per protocol. Pharmacy Service will continue to monitor and adjust dosing as required. Follow-Up Labs Follow-Up Labs: Trough: Vancomycin Date/Time Labs Ordered Labs to be done on [date and time ordered]: 11/13/24 19:00
[2024-11-11] MEDS: Vancomycin IV 1,000 MG/200 ML BAG 200 MG IV (19:50)
[2024-11-11] MEDS: Morphine 2 MG/ML Syringe IV (22:05)
[2024-11-11] MEDS: Atorvastatin Calcium 80 MG Tablet PO (22:13)
[2024-11-11 22:33] LABS: Bedside Glucose 220 mg/dL (74-106)
[2024-11-12] VITALS (10 sets, daily range): BP systolic 108–112; BP diastolic 45–61; PULSE 61–78; RESP 17–20; TEMP 36.2–36.6; O2SAT 93–97
[2024-11-12] MEDS: Cefepime HCl 2 GM in 0.9% Normal Saline (100mL MB+) 100 ML IV ×3 (05:06→22:00)
[2024-11-12] MEDS: metroNIDAZOLE 500 MG/100 ML BAG 100 MG IV ×3 (06:19→23:59)
[2024-11-12] MEDS: Insulin Lispro 100 UNIT/ML INSULN.PEN SC ×4 (06:22→22:01)
[2024-11-12 06:43] LABS: Bedside Glucose 239 mg/dL (74-106)
[2024-11-12] MEDS: Ipratropium/Albuterol Sulfate 3 ML AMPUL.NEB INHALATION ×3 (07:16→21:30)
--- NOTE | 2024-11-12 07:32 | PCM.PN.SRG ---
Subjective Subjective Patient had wound VAC placed yesterday Objective Data Objective Data Vital Signs: Vital Signs Temp Pulse Resp BP Pulse Ox O2 Del Method O2 Flow Rate 97.2 F L 75 18 108/60 95 Nasal Cannula 1.5 11/12/24 03:03 11/12/24 07:17 11/12/24 07:17 11/12/24 03:03 11/12/24 03:03 11/12/24 07:17 11/12/24 07:17 FiO2 94 11/12/24 07:17 Oxygen Flow Rate (L/min) 1.5 Oxygen Delivery Method Nasal Cannula Weight: 244 lb 15.995 oz Body Mass Index (BMI) 39.5 Intake & Output: Intake and Output for Last 24 Hours 11/10/24 11/11/24 11/12/24 23:59 23:59 23:59 Intake Total 1330 / 1330 1913.00 / 1913.00 100 / 100 Output Total 2310 / 2310 2275 / 2275 500 / 500 Balance -980 / -980 -362.00 / -362.00 -400 / -400 Lab / Micro Data 11/11/24 07:40 11/11/24 07:40 Labs: Laboratory Results - last 24 hr 11/11/24 07:40: WBC 7.9, RBC 3.04 L, Hgb 7.4 L, Hct 25.9 L, MCV 85.2 D, MCH 24.3 L, MCHC 28.6 L D, RDW Std Deviation 64.9 H, RDW Coeff of Faby 21.6 H, Plt Count 179, MPV 10.2, Immature Gran % (Auto) 4.400 H, Neut % (Auto) 67.3, Lymph % (Auto) 15.5 L, [place] % (Auto) 10.5 H, Eos % (Auto) 1.0, Baso % (Auto) 1.3 H, Absolute Neuts (auto) 5.3, Absolute Lymphs (auto) 1.22, Nucleated RBC % 0.6, Platelet Estimate A, Polychromasia 1+, Anisocytosis 2+, Ovalocytes 1+, Sodium 138, Potassium 3.8, Chloride 108, Carbon Dioxide 22.3, Anion Gap 8, BUN 25 H, Creatinine 0.90, Estim Creat Clear Calc 74.54, Est GFR (MDRD) Non-Af 70, BUN/Creatinine Ratio 28.3 H, Glucose 191 H, Calcium 8.8 11/11/24 10:57: POC Glucose 234 H 11/11/24 16:45: POC Glucose 216 H 11/11/24 17:50: Vancomycin Trough 13.9 11/11/24 22:10: POC Glucose 220 H 11/12/24 06:21: POC Glucose 239 H Micro: Microbiology 11/10/24 08:00 Wound - Abdominal Gram Stain - Final 11/10/24 08:00 Wound - Abdominal Wound Culture - Preliminary No growth-Final to follow 11/04/24 Unknown Wound Abcess - Other Gram Stain - Final 11/04/24 Unknown Wound Abcess - Other Wound Culture - Final Yeast, not Marguerite albicans Pseudomonas aeruginosa 11/04/24 Unknown Wound Abcess - Other Anaerobic Culture - Final No anaerobic bacteria isolated. 11/04/24 Unknown Implant - Other Gram Stain - Final 11/04/24 Unknown Implant - Other Wound Culture - Final Yeast, not Marguerite albicans Pseudomonas aeruginosa 11/04/24 Unknown Implant - Other Anaerobic Culture - Final No anaerobic bacteria isolated. 10/30/24 10:46 Aspirate - Abdominal Gram Stain - Final 10/30/24 10:46 Aspirate - Abdominal Wound Culture - Final Presumptive C albicans Enterococcus faecalis 10/30/24 10:46 Aspirate - Abdominal Anaerobic Culture - Final No anaerobic bacteria isolated. 10/28/24 09:05 Wound Abcess - Abdominal Gram Stain - Final 10/28/24 09:05 Wound Abcess - Abdominal Wound Culture - Final Escherichia coli Presumptive C albicans 10/28/24 09:05 Wound Abcess - Abdominal Anaerobic Culture - Final No anaerobic bacteria isolated. 10/26/24 12:42 Blood Culture (Wb) - Left Hand Blood Culture - Final No growth in 5 days. 10/26/24 11:55 Blood Culture (Wb) - Other Blood Culture - Final No growth in 5 days. 10/25/24 06:05 Blood Culture (Wb) - Anticubital Left Blood Culture - Final Staphylococcus epidermidis 10/25/24 06:00 Blood Culture (Wb) - Anticubital Right Bacteria Detection (PCR) - Final Staphylococcus epidermidis mecA Resistance Marker 10/25/24 06:00 Blood Culture (Wb) - Anticubital Right Blood Culture - Final Gram positive organism Physical Exam Const oriented x3 and no apparent distress Resp normal respiratory effort GI soft to palpation and non-tender Assessment & Plan Assessment/Plan (1) Postoperative wound infection: PLAN: Patient is doing well with wound VAC in place. Discharge likely tomorrow or the next day. Continue regular diet. Continue antibiotics. Heri Robin MD Pager: [facility] [address] [place] [address], [address] [place] [address] Office:
--- NOTE | 2024-11-12 09:22 | CASEMGMT ---
Addendum entered by Nakia Hinton 11/13/24 08:17: Requested therapy updates sent to Clinton Chavez. [employer] Planning Asst. Original Note: Updates sent to Katrina Chavez with request to submit for precert. Nakia Hinton DC Planning Asst.
[2024-11-12 09:25] LABS: Absolute Lymphocyte Count 1.05 X10^3/uL (0.83-4.51); Absolute Neutrophil Count 5.7 X10^3/uL (2.0-7.7); Basophil# 0.04 X10^3/uL; Basophil% 0.5 % (0-1); Eosinophil# 0.13 X10^3/uL; Eosinophils% 1.6 % (0-5); Hematocrit 24.2 % (37-47); Hemoglobin 7.5 g/dL (12.0-15.0); Lymphocyte # 1.05 X10^3/ul (0.83-4.51); Lymphocyte % 12.8 % (19-41); Mean Corpuscular Hgb 24.5 pg (27.0-32.0); Mean Corpuscular Volume 79.1 fL (81-99); Monocyte# 0.93 X10^3/uL; Monocyte% 11.4 % (0-10); NRBC Flagged by Analyzer 0.7 % (0-5); Neutrophil # 5.73 X10^3/uL (2.7-7.7); POSITIVE MORPHOLOGY YES; Platelet Count 286 K/mm3 (150-450); RBC Distribution Width CV 21.6 % (11.6-14.6); RBC Distribution Width SD 60.2 fl (35.1-43.9); Red Blood Count 3.06 M/mm3 (4.2-5.4); White Blood Count 8.2 K/mm3 (4.4-11.0)
[2024-11-12 09:28] LABS: Differential Indicated SCAN CRITERIA MET
[2024-11-12 09:54] LABS: Anisocytosis 1+
[2024-11-12 10:00] LABS: Anion Gap 5 (5-15); BUN 22 mg/dL (4-19); BUN/Creat Ratio 24.6 RATIO (10-20); Carbon Dioxide 29.5 mmol/L (21.0-32.0); Chloride 104 mmol/L (98-108); EST Glomerular Filtration Rate 69 (>60); Estimated Creatinine Clearance 74.54 ml/min (50-250); Glucose 206 mg/dL (70-99); Potassium 3.2 mmol/L (3.3-5.1); Sodium Level 139 mmol/L (133-145)
[2024-11-12] MEDS: Glucerna Shake 120 ML LIQUID PO ×3 (10:19→17:01)
[2024-11-12] MEDS: Carvedilol 25 MG Tablet PO ×2 (10:20→17:02)
[2024-11-12] MEDS: Menthol/Lanolin/Calamine/Znox 113 GM Tube 1 APPLIC TOPICAL ×3 (10:20→22:01)
[2024-11-12] MEDS: Empagliflozin 25 MG Tablet PO (10:20)
[2024-11-12] MEDS: Pantoprazole Sodium 40 MG Tablet PO (10:21)
[2024-11-12] MEDS: Furosemide 40 MG Tablet PO ×2 (10:21→17:02)
[2024-11-12] MEDS: Enoxaparin 40 MG/0.4 ML Syringe SC (10:21)
[2024-11-12] MEDS: Micafungin Sodium 100 MG in Dextrose 5%-Water (100mL Bag) 100 ML IV (10:43)
[2024-11-12] MEDS: Nystatin Powder 15gm Bottle 1 APPLIC TOPICAL ×3 (10:44→22:02)
[2024-11-12] MEDS: traMADol 50 MG Tablet PO ×2 (10:52→22:11)
--- NOTE | 2024-11-12 11:01 | CASEMGMT ---
KELLY received a phone call from Kera Guadalupe. Kera asked for an update on patient. KELLY let her know that working on getting patient to [facility]. Waiting on pre-cert. KELLY will update Kera once patient is being moved. Angy Chavira SIPHONER NANCY
[2024-11-12 12:06] LABS: Bedside Glucose 244 mg/dL (74-106)
--- NOTE | 2024-11-12 12:26 | PN_ITS ---
Subjective Subjective Patient seen and examined. She had no complaints and had an uneventful night. Review of systems otherwise negative. She has remained hemodynamically stable. Objective Data Objective Data Vital Signs: Vital Signs Temp Pulse Resp BP Pulse Ox O2 Del Method O2 Flow Rate 97.9 F 74 17 108/61 96 Nasal Cannula 1 11/12/24 09:00 11/12/24 09:00 11/12/24 09:00 11/12/24 09:00 11/12/24 09:47 11/12/24 09:00 11/12/24 09:48 FiO2 94 11/12/24 07:17 Oxygen Flow Rate (L/min) 1 Oxygen Delivery Method Nasal Cannula Weight: 244 lb 15.995 oz Body Mass Index (BMI) 39.5 Intake & Output: Intake and Output for Last 24 Hours 11/10/24 11/11/24 11/12/24 23:59 23:59 23:59 Intake Total 1330 / 1330 1913.00 / 1913.00 200 / 200 Output Total 2310 / 2310 2275 / 2275 500 / 500 Balance -980 / -980 -362.00 / -362.00 -300 / -300 Lab / Micro Data 11/12/24 09:00 11/12/24 09:00 Labs: Laboratory Results - last 24 hr 11/11/24 16:45: POC Glucose 216 H 11/11/24 17:50: Vancomycin Trough 13.9 11/11/24 22:10: POC Glucose 220 H 11/12/24 06:21: POC Glucose 239 H 11/12/24 09:00: WBC 8.2, RBC 3.06 L, Hgb 7.5 L, Hct 24.2 L, MCV 79.1 L D, MCH 24.5 L, MCHC 31.0 L D, RDW Std Deviation 60.2 H, RDW Coeff of Faby 21.6 H, Plt Count 286, MPV 9.0, Immature Gran % (Auto) 3.700 H, Neut % (Auto) 70.0, Lymph % (Auto) 12.8 L, [place] % (Auto) 11.4 H, Eos % (Auto) 1.6, Baso % (Auto) 0.5, Absolute Neuts (auto) 5.7, Absolute Lymphs (auto) 1.05, Nucleated RBC % 0.7, Anisocytosis 1+, Sodium 139, Potassium 3.2 L, Chloride 104, Carbon Dioxide 29.5, Anion Gap 5, BUN 22 H, Creatinine 0.90, Estim Creat Clear Calc 74.54, Est GFR (MDRD) Non-Af 69, BUN/Creatinine Ratio 24.6 H, Glucose 206 H, Calcium 9.0 11/12/24 11:48: POC Glucose 244 H Micro: Microbiology 11/10/24 08:00 Wound - Abdominal Gram Stain - Final 11/10/24 08:00 Wound - Abdominal Wound Culture - Preliminary No growth-Final to follow 11/04/24 Unknown Wound Abcess - Other Gram Stain - Final 11/04/24 Unknown Wound Abcess - Other Wound Culture - Final Yeast, not Marguerite albicans Pseudomonas aeruginosa 11/04/24 Unknown Wound Abcess - Other Anaerobic Culture - Final No anaerobic bacteria isolated. 11/04/24 Unknown Implant - Other Gram Stain - Final 11/04/24 Unknown Implant - Other Wound Culture - Final Yeast, not Marguerite albicans Pseudomonas aeruginosa 11/04/24 Unknown Implant - Other Anaerobic Culture - Final No anaerobic bacteria isolated. 10/30/24 10:46 Aspirate - Abdominal Gram Stain - Final 10/30/24 10:46 Aspirate - Abdominal Wound Culture - Final Presumptive C albicans Enterococcus faecalis 10/30/24 10:46 Aspirate - Abdominal Anaerobic Culture - Final No anaerobic bacteria isolated. 10/28/24 09:05 Wound Abcess - Abdominal Gram Stain - Final 10/28/24 09:05 Wound Abcess - Abdominal Wound Culture - Final Escherichia coli Presumptive C albicans 10/28/24 09:05 Wound Abcess - Abdominal Anaerobic Culture - Final No anaerobic bacteria isolated. 10/26/24 12:42 Blood Culture (Wb) - Left Hand Blood Culture - Final No growth in 5 days. 10/26/24 11:55 Blood Culture (Wb) - Other Blood Culture - Final No growth in 5 days. 10/25/24 06:05 Blood Culture (Wb) - Anticubital Left Blood Culture - Final Staphylococcus epidermidis 10/25/24 06:00 Blood Culture (Wb) - Anticubital Right Bacteria Detection (PCR) - Final Staphylococcus epidermidis mecA Resistance Marker 10/25/24 06:00 Blood Culture (Wb) - Anticubital Right Blood Culture - Final Gram positive organism Physical Exam Const alert, oriented x3 and no apparent distress Constitutional Narrative: class III obesity General Appearance: cooperative HEENT normocephalic, head/scalp atraumatic, moist oral mucous membranes and oropharynx normal Eyes PERRL and EOMs intact bilaterally Neck no lymphadenopathy, supple and no JVD Lymph Lymphatic: no lymphadenopathy noted and no lymphedema noted Resp normal respiratory effort, no retractions, no use of accessory muscles and clear to auscultation bilaterally Resp Narrative: mildly diminished breath sounds bibasally, no wheezes or crackles. on 1L of oxygen Cardio regular rate, regular rhythm, S1 normal heart sound, S2 normal heart sound and no murmurs GI normal to inspection, nondistended, normoactive bowel sounds, soft to palpation, non-tender and non-distended Extremity normal to inspection, full ROM, normal capillary refill, no clubbing, cyanosis or edema and no calf tenderness General Extremity: edema bilateral upper extremity and lower extremity and no tenderness to palpation of joints or extremities Skin General Skin Exam: no breakdown Neuro CN's II-XII intact bilaterally, no focal motor deficits and no sensory deficits noted Sensorium / Orientation: awake and alert Motor Exam: strength 5/5 throughout and general weakness Psych thought process normal, cooperative and affect normal Appearance: appropriate Assessment & Plan Assessment/Plan (1) Postoperative wound infection: (2) Ventral hernia: QUALIFIERS: Obstruction and gangrene presence: with obstruction but without gangrene Qualified Code(s): K43.6 - Other and unspecified ventral hernia with obstruction, without gangrene PLAN: Plan #JEANNE: resolved #Small bowel obstruction * seen on CT from 11/03/2024. * management as per general surgery * #Post op surgical site infection * Wound cultures growing yeast and pseudomonas. * blood cultures positive for Staph epidermidis * on IV vancomycin, cefepime, metronidazole and micafungin * management as per ID. * #afib: on carvedilol and eliquis #Acute blood loss anemia: * Transfuse if hemoglobin is less than 7. Hb today is 7.5. #Acute encephalopathy: * Improving. Patient able to wake up and communicate. * Avoid sedating medication. * Patient had previously refused Ct of the brain. * Ammonia level was not elevated. #Type 2 diabetes mellitus: on ISS. Accuchecks ACHS. #Fluid overload: Improving. On PO lasix 40mg bid. #Hypertension: on carvedilol. #Class III obesity: complicates acute care, expected recovery and prognosis DVT prophylaxis: already on eliquis. Charges/Coding Visit Charges Inpatient E&M: 24872 Subs Hosp L2
--- NOTE | 2024-11-12 12:48 | PN.ID_ITS ---
Physical Exam Narrative Feeling better, no fever, no abd pain Const alert and no apparent distress General Appearance: cooperative Resp normal air movement and clear to auscultation bilaterally Cardio regular rate and regular rhythm GI soft to palpation, non-tender and non-distended Skin no rashes or lesions noted ID ID: Route of nutrition/ use of supplements: [] Nutritional Intake: [] IV Site: [] Koo Catheter: [] Assessment & Plan Assessment/Plan (1) Postoperative wound infection: PLAN: OR again 11/04/24 with drainage of purulence and partial small bowel resection, cxs from surgery with non albicans yeast and now PsA. Will cont vanc/cefepime/flagyl/micafungin. Picc in place, will write for 10 more days abx, stop date 11/22/24 with weekly labs. ID followup prn, d/w medical case worker. Will follow
[2024-11-12] MEDS: Acetaminophen 325 MG Tablet 650 MG PO ×2 (16:13→23:55)
[2024-11-12 17:24] LABS: Bedside Glucose 235 mg/dL (74-106)
[2024-11-12] MEDS: Vancomycin IV 1,000 MG/200 ML BAG 200 MG IV (19:52)
[2024-11-12] MEDS: Atorvastatin Calcium 80 MG Tablet PO (22:02)
[2024-11-12 22:34] LABS: Bedside Glucose 227 mg/dL (74-106)
[2024-11-13] VITALS (14 sets, daily range): BP systolic 92–140; BP diastolic 40–62; PULSE 61–80; RESP 12–18; TEMP 36.1–36.7; O2SAT 67–99
[2024-11-13] MEDS: Ondansetron 4 MG/2 ML Vial IV (00:07)
[2024-11-13] MEDS: 0.9% Saline Lock 10 ML Syringe IV (00:12)
[2024-11-13] MEDS: Cefepime HCl 2 GM in 0.9% Normal Saline (100mL MB+) 100 ML IV ×3 (05:01→23:03)
[2024-11-13] MEDS: metroNIDAZOLE 500 MG/100 ML BAG 100 MG IV ×2 (06:09→13:07)
[2024-11-13] MEDS: Insulin Lispro 100 UNIT/ML INSULN.PEN SC ×4 (06:14→21:00)
[2024-11-13 06:33] LABS: Bedside Glucose 185 mg/dL (74-106)
[2024-11-13 06:49] LABS: Absolute Lymphocyte Count 1.13 X10^3/uL (0.83-4.51); Absolute Neutrophil Count 7.3 X10^3/uL (2.0-7.7); Basophil# 0.05 X10^3/uL; Basophil% 0.5 % (0-1); Eosinophil# 0.07 X10^3/uL; Eosinophils% 0.7 % (0-5); Hematocrit 22.3 % (37-47); Hemoglobin 6.9 g/dL (12.0-15.0); Lymphocyte # 1.13 X10^3/ul (0.83-4.51); Lymphocyte % 11.7 % (19-41); Mean Corp Hgb Conc 30.9 g/dL (32-36); Mean Corpuscular Hgb 24.4 pg (27.0-32.0); Mean Corpuscular Volume 78.8 fL (81-99); Mean Platelet Vol. 9.4 fl (6.2-12.0); Monocyte# 0.85 X10^3/uL; Monocyte% 8.8 % (0-10); NRBC Flagged by Analyzer 0.3 % (0-5); Neutrophil # 7.33 X10^3/uL (2.7-7.7); Neutrophil % 75.7 % (47-70); POSITIVE MORPHOLOGY YES; Platelet Count 270 K/mm3 (150-450); RBC Distribution Width CV 21.8 % (11.6-14.6); RBC Distribution Width SD 59.4 fl (35.1-43.9); Red Blood Count 2.83 M/mm3 (4.2-5.4); White Blood Count 9.7 K/mm3 (4.4-11.0)
[2024-11-13 07:06] LABS: Differential Indicated SCAN CRITERIA MET
[2024-11-13 07:34] LABS: Anion Gap 8 (5-15); BUN 21 mg/dL (4-19); BUN/Creat Ratio 21.5 RATIO (10-20); Calcium,Total 8.8 mg/dL (7.6-11.0); Carbon Dioxide 25.6 mmol/L (21.0-32.0); Chloride 104 mmol/L (98-108); Creatinine, Serum 0.98 mg/dL (0.70-1.20); EST Glomerular Filtration Rate 62 (>60); Estimated Creatinine Clearance 68.45 ml/min (50-250); Glucose 186 mg/dL (70-99); Potassium 3.3 mmol/L (3.3-5.1); Sodium Level 137 mmol/L (133-145)
[2024-11-13 08:31] LABS: Anisocytosis 1+; Hypochromasia 1+
--- NOTE | 2024-11-13 08:43 | PN.SURG_ITS ---
Subjective Subjective Patient evaluated resting comfortably in bed. She denies any abdominal pain. She is tolerating her current diet without any concerns. She participated in therapy yesterday. Wound vac continues to assist with patient's wound healing progress. Objective Data Objective Data Vital Signs: Vital Signs Temp Pulse Resp BP Pulse Ox O2 Del Method O2 Flow Rate 97.6 F L 77 18 112/48 L 93 Nasal Cannula 1 11/13/24 04:36 11/13/24 04:36 11/13/24 04:36 11/13/24 04:36 11/13/24 04:36 11/13/24 04:36 11/13/24 04:36 FiO2 94 11/12/24 07:17 Oxygen Flow Rate (L/min) 1 Oxygen Delivery Method Nasal Cannula Weight: 244 lb 15.995 oz Body Mass Index (BMI) 39.5 Intake & Output: Intake and Output for Last 24 Hours 11/11/24 11/12/24 11/13/24 23:59 23:59 23:59 Intake Total 1913.00 / 1913.00 1525 / 1525 440 / 440 Output Total 2275 / 2275 1800 / 1800 650 / 650 Balance -362.00 / -362.00 -275 / -275 -210 / -210 Lab / Micro Data 11/13/24 06:32 11/13/24 06:32 Labs: Laboratory Results - last 24 hr 11/12/24 09:00: WBC 8.2, RBC 3.06 L, Hgb 7.5 L, Hct 24.2 L, MCV 79.1 L D, MCH 24.5 L, MCHC 31.0 L D, RDW Std Deviation 60.2 H, RDW Coeff of Faby 21.6 H, Plt Count 286, MPV 9.0, Immature Gran % (Auto) 3.700 H, Neut % (Auto) 70.0, Lymph % (Auto) 12.8 L, [place] % (Auto) 11.4 H, Eos % (Auto) 1.6, Baso % (Auto) 0.5, Absolute Neuts (auto) 5.7, Absolute Lymphs (auto) 1.05, Nucleated RBC % 0.7, Anisocytosis 1+, Sodium 139, Potassium 3.2 L, Chloride 104, Carbon Dioxide 29.5, Anion Gap 5, BUN 22 H, Creatinine 0.90, Estim Creat Clear Calc 74.54, Est GFR (MDRD) Non-Af 69, BUN/Creatinine Ratio 24.6 H, Glucose 206 H, Calcium 9.0 11/12/24 11:48: POC Glucose 244 H 11/12/24 16:59: POC Glucose 235 H 11/12/24 21:52: POC Glucose 227 H 11/13/24 06:13: POC Glucose 185 H 11/13/24 06:32: WBC 9.7, RBC 2.83 L, Hgb 6.9 L, Hct 22.3 L, MCV 78.8 L, MCH 24.4 L, MCHC 30.9 L, RDW Std Deviation 59.4 H, RDW Coeff of Faby 21.8 H, Plt Count 270, MPV 9.4, Immature Gran % (Auto) 2.600 H, Neut % (Auto) 75.7 H, Lymph % (Auto) 11.7 L, [place] % (Auto) 8.8, Eos % (Auto) 0.7, Baso % (Auto) 0.5, Absolute Neuts (auto) 7.3, Absolute Lymphs (auto) 1.13, Nucleated RBC % 0.3, Hypochromasia 1+, Anisocytosis 1+, Sodium 137, Potassium 3.3, Chloride 104, Carbon Dioxide 25.6, Anion Gap 8, BUN 21 H, Creatinine 0.98, Estim Creat Clear Calc 68.45, Est GFR (MDRD) Non-Af 62, BUN/Creatinine Ratio 21.5 H, Glucose 186 H , Calcium 8.8 Micro: Microbiology 11/10/24 08:00 Wound - Abdominal Gram Stain - Final 11/10/24 08:00 Wound - Abdominal Wound Culture - Preliminary No growth-Final to follow 11/04/24 Unknown Wound Abcess - Other Gram Stain - Final 11/04/24 Unknown Wound Abcess - Other Wound Culture - Final Yeast, not Marguerite albicans Pseudomonas aeruginosa 11/04/24 Unknown Wound Abcess - Other Anaerobic Culture - Final No anaerobic bacteria isolated. 11/04/24 Unknown Implant - Other Gram Stain - Final 11/04/24 Unknown Implant - Other Wound Culture - Final Yeast, not Marguerite albicans Pseudomonas aeruginosa 11/04/24 Unknown Implant - Other Anaerobic Culture - Final No anaerobic bacteria isolated. 10/30/24 10:46 Aspirate - Abdominal Gram Stain - Final 10/30/24 10:46 Aspirate - Abdominal Wound Culture - Final Presumptive C albicans Enterococcus faecalis 10/30/24 10:46 Aspirate - Abdominal Anaerobic Culture - Final No anaerobic bacteria isolated. 10/28/24 09:05 Wound Abcess - Abdominal Gram Stain - Final 10/28/24 09:05 Wound Abcess - Abdominal Wound Culture - Final Escherichia coli Presumptive C albicans 10/28/24 09:05 Wound Abcess - Abdominal Anaerobic Culture - Final No anaerobic bacteria isolated. 10/26/24 12:42 Blood Culture (Wb) - Left Hand Blood Culture - Final No growth in 5 days. 10/26/24 11:55 Blood Culture (Wb) - Other Blood Culture - Final No growth in 5 days. 10/25/24 06:05 Blood Culture (Wb) - Anticubital Left Blood Culture - Final Staphylococcus epidermidis 10/25/24 06:00 Blood Culture (Wb) - Anticubital Right Bacteria Detection (PCR) - Final Staphylococcus epidermidis mecA Resistance Marker 10/25/24 06:00 Blood Culture (Wb) - Anticubital Right Blood Culture - Final Gram positive organism Physical Exam GI GI Narrative: Abdomen- soft, nontender. Wound vac intact with tannish fluid noted within the canister.. Previous JERRI dressing intact. Assessment & Plan Assessment/Plan (1) Postoperative wound infection: PLAN: I am following this patient in conjunction with Dr. Shirley in Dr. Shah's absence. He has independently evaluated this patient. Labs reviewed. Hgb 6.9 this morning. Spoke with Dr. Viveros, she will plan to repeat H&H and if below 7.0, will plan to transfuse patient. Patient's blood glucose continues to run in the upper 100's and low 200's Plan to change wound vac later today Culture prelim showing rare gram negative rods Possible discharge tomorrow We will continue to monitor this patient Charges/Coding Visit Charges Inpatient E&M: 13766 Subs Hosp L1 (post-op; no charge)
[2024-11-13 08:48] LABS: Hematocrit 22.4 % (37-47); Hemoglobin 7.2 g/dL (12.0-15.0)
[2024-11-13] MEDS: Carvedilol 25 MG Tablet PO ×2 (10:02→18:30)
[2024-11-13] MEDS: Empagliflozin 25 MG Tablet PO ×2 (10:02)
[2024-11-13] MEDS: Nystatin Powder 15gm Bottle 1 APPLIC TOPICAL ×2 (10:03→20:53)
[2024-11-13] MEDS: Glucerna Shake 120 ML LIQUID PO ×3 (10:03→18:32)
[2024-11-13] MEDS: Menthol/Lanolin/Calamine/Znox 113 GM Tube 1 APPLIC TOPICAL ×3 (10:03→20:53)
[2024-11-13] MEDS: Pantoprazole Sodium 40 MG Tablet PO (10:04)
[2024-11-13] MEDS: Enoxaparin 40 MG/0.4 ML Syringe SC (10:04)
[2024-11-13] MEDS: Furosemide 40 MG Tablet PO ×2 (10:04→18:30)
[2024-11-13] MEDS: Acetaminophen 325 MG Tablet 650 MG PO (10:14)
[2024-11-13] MEDS: traMADol 50 MG Tablet PO ×2 (10:14→21:01)
[2024-11-13] MEDS: Micafungin Sodium 100 MG in Dextrose 5%-Water (100mL Bag) 100 ML IV (10:18)
--- NOTE | 2024-11-13 12:09 | PN_ITS ---
Subjective Subjective Patient seen and examined. She had no complaints this morning. Review of symptoms otherwise negative. Hemoglobin is 6.9. On repeat, its 7.2. Due to her hemoglobin still running low we will transfuse patient with 1 unit of packed red blood cells. Objective Data Objective Data Vital Signs: Vital Signs Temp Pulse Resp BP Pulse Ox O2 Del Method O2 Flow Rate 97.8 F 80 16 114/52 L 93 Nasal Cannula 1 11/13/24 10:35 11/13/24 10:35 11/13/24 10:35 11/13/24 10:35 11/13/24 10:35 11/13/24 10:35 11/13/24 10:35 FiO2 94 11/12/24 07:17 Oxygen Flow Rate (L/min) 1 Oxygen Delivery Method Nasal Cannula Weight: 244 lb 15.995 oz Body Mass Index (BMI) 39.5 Intake & Output: Intake and Output for Last 24 Hours 11/11/24 11/12/24 11/13/24 23:59 23:59 23:59 Intake Total 1913.00 / 1913.00 1525 / 1525 645 / 645 Output Total 2275 / 2275 1800 / 1800 650 / 650 Balance -362.00 / -362.00 -275 / -275 -5 / -5 Lab / Micro Data 11/13/24 08:41 11/13/24 06:32 Labs: Laboratory Results - last 24 hr 11/12/24 16:59: POC Glucose 235 H 11/12/24 21:52: POC Glucose 227 H 11/13/24 06:13: POC Glucose 185 H 11/13/24 06:32: WBC 9.7, RBC 2.83 L, Hgb 6.9 L, Hct 22.3 L, MCV 78.8 L, MCH 24.4 L, MCHC 30.9 L, RDW Std Deviation 59.4 H, RDW Coeff of Faby 21.8 H, Plt Count 270, MPV 9.4, Immature Gran % (Auto) 2.600 H, Neut % (Auto) 75.7 H, Lymph % (Auto) 11.7 L, [place] % (Auto) 8.8, Eos % (Auto) 0.7, Baso % (Auto) 0.5, Absolute Neuts (auto) 7.3, Absolute Lymphs (auto) 1.13, Nucleated RBC % 0.3, Hypochromasia 1+, Anisocytosis 1+, Sodium 137, Potassium 3.3, Chloride 104, Carbon Dioxide 25.6, Anion Gap 8, BUN 21 H, Creatinine 0.98, Estim Creat Clear Calc 68.45, Est GFR (MDRD) Non-Af 62, BUN/Creatinine Ratio 21.5 H, Glucose 186 H , Calcium 8.8 11/13/24 08:41: Hgb 7.2 L, Hct 22.4 L Micro: Microbiology 11/10/24 08:00 Wound - Abdominal Gram Stain - Final 11/10/24 08:00 Wound - Abdominal Wound Culture - Preliminary 11/10/24 08:00 Wound - Abdominal Anaerobic Culture - Preliminary Checking for anaerobes, further studies to follow. 11/04/24 Unknown Wound Abcess - Other Gram Stain - Final 11/04/24 Unknown Wound Abcess - Other Wound Culture - Final Yeast, not Marguerite albicans Pseudomonas aeruginosa 11/04/24 Unknown Wound Abcess - Other Anaerobic Culture - Final No anaerobic bacteria isolated. 11/04/24 Unknown Implant - Other Gram Stain - Final 11/04/24 Unknown Implant - Other Wound Culture - Final Yeast, not Marguerite albicans Pseudomonas aeruginosa 11/04/24 Unknown Implant - Other Anaerobic Culture - Final No anaerobic bacteria isolated. 10/30/24 10:46 Aspirate - Abdominal Gram Stain - Final 10/30/24 10:46 Aspirate - Abdominal Wound Culture - Final Presumptive C albicans Enterococcus faecalis 10/30/24 10:46 Aspirate - Abdominal Anaerobic Culture - Final No anaerobic bacteria isolated. 10/28/24 09:05 Wound Abcess - Abdominal Gram Stain - Final 10/28/24 09:05 Wound Abcess - Abdominal Wound Culture - Final Escherichia coli Presumptive C albicans 10/28/24 09:05 Wound Abcess - Abdominal Anaerobic Culture - Final No anaerobic bacteria isolated. 10/26/24 12:42 Blood Culture (Wb) - Left Hand Blood Culture - Final No growth in 5 days. 10/26/24 11:55 Blood Culture (Wb) - Other Blood Culture - Final No growth in 5 days. 10/25/24 06:05 Blood Culture (Wb) - Anticubital Left Blood Culture - Final Staphylococcus epidermidis 10/25/24 06:00 Blood Culture (Wb) - Anticubital Right Bacteria Detection (PCR) - Final Staphylococcus epidermidis mecA Resistance Marker 10/25/24 06:00 Blood Culture (Wb) - Anticubital Right Blood Culture - Final Gram positive organism Physical Exam Const alert, oriented x3 and no apparent distress Constitutional Narrative: class III obesity General Appearance: cooperative Orientation / Consciousness: confused HEENT normocephalic, head/scalp atraumatic, moist oral mucous membranes and oropharynx normal Eyes PERRL and EOMs intact bilaterally Neck no lymphadenopathy, supple and no JVD Lymph Lymphatic: no lymphadenopathy noted and no lymphedema noted Resp normal respiratory effort, no retractions, no use of accessory muscles and clear to auscultation bilaterally Resp Narrative: mildly diminished breath sounds bibasally, no wheezes or crackles. on 1L of oxygen Cardio regular rate, regular rhythm, S1 normal heart sound, S2 normal heart sound and no murmurs GI normal to inspection, nondistended, normoactive bowel sounds, soft to palpation, non-tender and non-distended GI Narrative: wound vac on abdominal wound. Extremity normal to inspection, full ROM, normal capillary refill, no clubbing, cyanosis or edema and no calf tenderness General Extremity: edema bilateral upper extremity and lower extremity and no tenderness to palpation of joints or extremities Skin General Skin Exam: no breakdown Neuro CN's II-XII intact bilaterally, no focal motor deficits and no sensory deficits noted Sensorium / Orientation: awake and alert Motor Exam: strength 5/5 throughout and general weakness Psych thought process normal, cooperative and affect normal Appearance: appropriate Assessment & Plan Assessment/Plan (1) Postoperative wound infection: (2) Ventral hernia: QUALIFIERS: Obstruction and gangrene presence: with obstruction but without gangrene Qualified Code(s): K43.6 - Other and unspecified ventral hernia with obstruction, without gangrene PLAN: Plan #JEANNE: resolved #Small bowel obstruction * seen on CT from 11/03/2024. * management as per general surgery * #Post op surgical site infection * Wound cultures growing yeast and pseudomonas. * blood cultures positive for Staph epidermidis * on IV vancomycin, cefepime, metronidazole and micafungin * management as per ID. * wound vac in situ * #afib: on carvedilol and eliquis #Acute blood loss anemia: * Transfuse if hemoglobin is less than 7. Hb today is 6.9,. and on repeat was 7.2. * will go ahead and transfuse with one unit of PRBC #Acute encephalopathy: * Largely resolved. * Avoid sedating medication. * Patient had previously refused Ct of the brain. * Ammonia level was not elevated. #Type 2 diabetes mellitus: on ISS. Accuchecks ACHS. #Fluid overload: Improving. On PO lasix 40mg bid. #Hypertension: on carvedilol. #Class III obesity: complicates acute care, expected recovery and prognosis DVT prophylaxis: already on eliquis. Disposition: awaiting placement Charges/Coding Visit Charges Inpatient E&M: 72195 Subs Hosp L2
[2024-11-13 12:39] LABS: Bedside Glucose 213 mg/dL (74-106)
--- NOTE | 2024-11-13 15:29 | WOUNDNOTE ---
wound photo: abdomen
--- NOTE | 2024-11-13 16:32 | PCM.TXEXTCAR ---
Documented by User: Dr. Ed Shirley MD 11/18/24 07:55 Diet Diet Order/Speech Therapy: 11/14/24 18:15 Diet: Clear Liquid Dietary Modifications:: Fiber Restricted Routine Orders/Code Status Routine Lab Work: CBC and BMP Code Status: Full Code Wound(s) abdomen: Wound Type: Open Surgical Wound Dressing Change: dry dressing left coccyx: Wound Type: Pressure Injury RT ABD: Wound Type: Open Surgical Wound Dressing Change: KCI wound VAC Therapies Physical Therapy: Eval and Treat Occupational Therapy: Eval and Treat Problem/Diagnosis (1) Postoperative wound infection: Status: Acute Code(s): T81.49XA - Infection following a procedure, other surgical site, initial encounter Plan: I am following this patient in conjunction with Dr. Shirley in Dr. Shah's absence. He has independently evaluated this patient. Labs reviewed. WBC 7.9 today Wound with a minimal amount of slough. Recommend Dry dressing change in the AM, Dakins dressing change in the PM and Dry dressing change management coordinator night. (TID dressing changes) Possibly wound vac candidate on pending wound culture results. If yeast is still present, no wound vac will be placed. Culture results pending Encourage patient to be sitting up in a chair and working on ambulation. Encourage I.S./PEEP every 30 minutes Continue IV antibiotics per ID recommendations We will continue to monitor this patient Comment: possible--culture taken and abx started due to mesh in place and pt at high risk (2) Ventral hernia: Status: Acute Code(s): K43.9 - Ventral hernia without obstruction or gangrene Comment: incisional Allergies/Procedures Done in Hospital Allergies iodine Allergy (Mild, Verified 10/23/24 09:29) Itching Penicillins Allergy (Mild, Verified 10/23/24 09:29) Itching Type of Care/Length of Stay Estimated LOS: More Than 30 Days Type of Care Needed: Skilled Rehab Potential: Fair Prognosis: Fair Additional Orders/Day of Discharge Day of Discharge: 11/14/24 Dietary and Speech Recommendations Dietitian Recommendations/Changes: Recommend advanced diet as tolerated to transitional diet with goal to 1800 zulma Consistent CHO/ restricted fiber Continue 4 oz glucerna shake TID w/ medpass for increased nutrition to help w/ surgical healing. Follow Up Care Please Follow Up With: An Shah MD When: 2 weeks Discharge Plan Admission Admit Date/Time: 10/23/24 13:44 Primary Reason for Your Visit: Ventral hernia Attending Provider: An Shah Primary Care Provider: Dennis Pelayo Consulting Providers: Bobo Aguilar; Virginia Guerrero; Benja Hernandez; Ronald Stone; Sharyn Viveros; Ed Yan Discharge Orders/Prescriptions Prescriptions: New oxycodone 5 mg capsule 5 mg PO Q6H PRN (Reason: pain) 3 Days Qty: 10 0RF cefepime in dextrose 5 % 2 gram/50 mL piggyback 2 g IV Q8H 10 Days Rx Instructions: stop date 11/22/24. Dx: intra-abd abscess. Weekly bmp, cbc, vanc trough, and LFT. Fax to [phone]. metronidazole in NaCl (iso-os) 500 mg/100 mL Piggyback 500 mg IV Q8 10 Days Qty: 3000 0RF Rx Instructions: stop date 11/22/24. Dx: intra-abd abscess. Weekly bmp, cbc, vanc trough, and LFT. Fax to [phone]. vancomycin in dextrose 5 % 1 gram/200 mL Piggyback 1,000 mg IV Q24H 10 Days Qty: 2000 0RF Rx Instructions: stop date 11/22/24. Dx: intra-abd abscess. Weekly bmp, cbc, vanc trough, and LFT. Fax to [phone]. micafungin 100 mg Recon Soln 100 mg IV Q24 10 Days Qty: 10 0RF Rx Instructions: stop date 11/22/24. Dx: intra-abd abscess. Weekly bmp, cbc, vanc trough, and LFT. Fax to [phone]. Continued gabapentin 600 mg tablet 600 mg PO BID omeprazole 20 MG capsule 20 mg PO DAILY amlodipine [Norvasc] 10 MG tablet 10 mg PO QHS atorvastatin 80 MG tablet 80 mg PO QHS 0RF lisinopril 40 MG tablet 40 mg PO DAILY 0RF sennosides-docusate sodium [Stimulant Laxative Plus] 8.6-50 mg Tablet 1 tab PO BID Qty: 60 0RF dapagliflozin propanediol [Farxiga] 10 mg tablet 10 mg PO DAILY Qty: 30 0RF insulin glargine [Lantus Solostar U-100 Insulin] 100 unit/mL (3 mL) insulin pen 15 unit subcut BIDCM Qty: 5 0RF multivitamin with folic acid [Daily-Levon (with folic acid)] 400 mcg tablet 1 tab PO DAILY carvedilol 25 mg tablet 25 mg PO BID Qty: 60 0RF Rx Instructions: must administer with a meal/food naproxen 500 mg tablet 500 mg PO BID benzonatate 200 mg capsule 200 mg PO TID PRN (Reason: cough) metformin 500 mg tablet 500 mg PO BID glipizide 10 mg tablet 10 mg PO BID cholecalciferol (vitamin D3) 50 mcg (2,000 unit) capsule 50 mcg PO DAILY Trulicity 4.5 mg/0.5 mL pen injector 4.5 mg SUBCUT QWEEK Patient Comments: UNSURE WHICH DAY OF WEEK. nystatin [Nyamyc] 100,000 unit/gram powder 1 applic topical BID Rx Instructions: USE ON AREA BETWEEN LEGS TWICE DAILY. pioglitazone 15 mg tablet 15 mg PO DAILY Qty: 30 3RF Held Eliquis 5 MG tablet 5 mg PO BID Hold Instructions: Resume on 10/26/24. Referrals / Follow Up: Dennis Pelayo DO [Primary Care Provider] - Disposition Disposition (needs filled in before D/C Order can be placed): [facility]irement Facility (2) Ventral hernia Qualifiers: Obstruction and gangrene presence: with obstruction but without gangrene Qualified Code(s): K43.6 - Other and unspecified ventral hernia with obstruction, without gangrene Documented by User: Dr. Heri Robin MD 11/15/24 08:38 Diet Diet Order/Speech Therapy: 11/14/24 18:15 Diet: Clear Liquid Dietary Modifications:: Fiber Restricted Routine Orders/Code Status Enema Frequency: Daily PRN DC O2, CPAP, BIPAP needs Home O2 Discharge instructions: Yes Type of respiratory needs?: Oxygen Oxygen frequency: Continuous Continuous oxygen liters per minute: 3 Problem/Diagnosis (1) Postoperative wound infection: Status: Acute Code(s): T81.49XA - Infection following a procedure, other surgical site, initial encounter Comment: possible--culture taken and abx started due to mesh in place and pt at high risk (2) Ventral hernia: Status: Acute Code(s): K43.9 - Ventral hernia without obstruction or gangrene Comment: incisional Allergies/Procedures Done in Hospital Allergies iodine Allergy (Mild, Verified 10/23/24 09:29) Itching Penicillins Allergy (Mild, Verified 10/23/24 09:29) Itching Discharge Plan Admission Admit Date/Time: 10/23/24 13:44 Primary Reason for Your Visit: Ventral hernia Attending Provider: An Shah Primary Care Provider: Dennis Pelayo Consulting Providers: Bobo Aguilar; Virginia Guerrero; Benja Hernandez; Ronald Stone; Sharyn Viveros; Ed Yan Discharge Orders/Prescriptions Prescriptions: New oxycodone 5 mg capsule 5 mg PO Q6H PRN (Reason: pain) 3 Days Qty: 10 0RF cefepime in dextrose 5 % 2 gram/50 mL piggyback 2 g IV Q8H 10 Days Rx Instructions: stop date 11/22/24. Dx: intra-abd abscess. Weekly bmp, cbc, vanc trough, and LFT. Fax to [phone]. metronidazole in NaCl (iso-os) 500 mg/100 mL Piggyback 500 mg IV Q8 10 Days Qty: 3000 0RF Rx Instructions: stop date 11/22/24. Dx: intra-abd abscess. Weekly bmp, cbc, vanc trough, and LFT. Fax to [phone]. vancomycin in dextrose 5 % 1 gram/200 mL Piggyback 1,000 mg IV Q24H 10 Days Qty: 2000 0RF Rx Instructions: stop date 11/22/24. Dx: intra-abd abscess. Weekly bmp, cbc, vanc trough, and LFT. Fax to [phone]. micafungin 100 mg Recon Soln 100 mg IV Q24 10 Days Qty: 10 0RF Rx Instructions: stop date 11/22/24. Dx: intra-abd abscess. Weekly bmp, cbc, vanc trough, and LFT. Fax to [phone]. Continued gabapentin 600 mg tablet 600 mg PO BID omeprazole 20 MG capsule 20 mg PO DAILY amlodipine [Norvasc] 10 MG tablet 10 mg PO QHS atorvastatin 80 MG tablet 80 mg PO QHS 0RF lisinopril 40 MG tablet 40 mg PO DAILY 0RF sennosides-docusate sodium [Stimulant Laxative Plus] 8.6-50 mg Tablet 1 tab PO BID Qty: 60 0RF dapagliflozin propanediol [Farxiga] 10 mg tablet 10 mg PO DAILY Qty: 30 0RF insulin glargine [Lantus Solostar U-100 Insulin] 100 unit/mL (3 mL) insulin pen 15 unit subcut BIDCM Qty: 5 0RF multivitamin with folic acid [Daily-Levon (with folic acid)] 400 mcg tablet 1 tab PO DAILY carvedilol 25 mg tablet 25 mg PO BID Qty: 60 0RF Rx Instructions: must administer with a meal/food naproxen 500 mg tablet 500 mg PO BID benzonatate 200 mg capsule 200 mg PO TID PRN (Reason: cough) metformin 500 mg tablet 500 mg PO BID glipizide 10 mg tablet 10 mg PO BID cholecalciferol (vitamin D3) 50 mcg (2,000 unit) capsule 50 mcg PO DAILY Trulicity 4.5 mg/0.5 mL pen injector 4.5 mg SUBCUT QWEEK Patient Comments: UNSURE WHICH DAY OF WEEK. nystatin [Nyamyc] 100,000 unit/gram powder 1 applic topical BID Rx Instructions: USE ON AREA BETWEEN LEGS TWICE DAILY. pioglitazone 15 mg tablet 15 mg PO DAILY Qty: 30 3RF Held Eliquis 5 MG tablet 5 mg PO BID Hold Instructions: Resume on 10/26/24. Referrals / Follow Up: Dennis Pelayo DO [Primary Care Provider] - Disposition Disposition (needs filled in before D/C Order can be placed): Retirement Facility (2) Ventral hernia Qualifiers: Obstruction and gangrene presence: with obstruction but without gangrene Qualified Code(s): K43.6 - Other and unspecified ventral hernia with obstruction, without gangrene(2) Ventral hernia Qualifiers: Obstruction and gangrene presence: with obstruction but without gangrene Qualified Code(s): K43.6 - Other and unspecified ventral hernia with obstruction, without gangrene
[2024-11-13] MEDS: Ipratropium/Albuterol Sulfate 3 ML AMPUL.NEB INHALATION (16:58)
[2024-11-13 17:38] LABS: Bedside Glucose 245 mg/dL (74-106)
[2024-11-13 20:15] LABS: Vancomycin, Trough Level 17.7 ug/mL (5.0-15.0)
--- NOTE | 2024-11-13 20:22 | PCM.RX.CS ---
Consult Antibiotic Management Pharmacy has been consulted to manage selected antibiotic: Vancomycin Type of Intervention Type of Consult: Follow-up Suspected Infection Suspected Infection: Other (POST-SURGICAL) Prior Doses of Antibiotics Prior Doses of Antibiotics Received/Current Regimen: Vancomycin 1000 mg Q24H last dose given 11/12 @ 1952 Labs Labs: Sodium 137 mmol/L (133-145) 11/13/24 06:32 Potassium 3.3 mmol/L (3.3-5.1) 11/13/24 06:32 Chloride 104 mmol/L (98-108) 11/13/24 06:32 Carbon Dioxide 25.6 mmol/L (21.0-32.0) 11/13/24 06:32 Anion Gap 8 (5-15) 11/13/24 06:32 BUN 21 mg/dL (4-19) H 11/13/24 06:32 Creatinine 0.98 mg/dL (0.70-1.20) 11/13/24 06:32 Est GFR (MDRD) Non-Af 62 (>60) 11/13/24 06:32 BUN/Creatinine Ratio 21.5 RATIO (10-20) H 11/13/24 06:32 Glucose 186 mg/dL (70-99) H 11/13/24 06:32 Vancomycin Trough 17.7 ug/mL (5.0-15.0) H 11/13/24 19:10 Random Vancomycin 19.1 ug/mL (0.0-15.0) H 11/07/24 08:15 Microbiology Microbiology: Microbiology 11/10/24 08:00 Wound - Abdominal Gram Stain - Final 11/10/24 08:00 Wound - Abdominal Wound Culture - Preliminary 11/10/24 08:00 Wound - Abdominal Anaerobic Culture - Preliminary Checking for anaerobes, further studies to follow. 11/04/24 Unknown Wound Abcess - Other Gram Stain - Final 11/04/24 Unknown Wound Abcess - Other Wound Culture - Final Yeast, not Marguerite albicans Pseudomonas aeruginosa 11/04/24 Unknown Wound Abcess - Other Anaerobic Culture - Final No anaerobic bacteria isolated. 11/04/24 Unknown Implant - Other Gram Stain - Final 11/04/24 Unknown Implant - Other Wound Culture - Final Yeast, not Marguerite albicans Pseudomonas aeruginosa 11/04/24 Unknown Implant - Other Anaerobic Culture - Final No anaerobic bacteria isolated. 10/30/24 10:46 Aspirate - Abdominal Gram Stain - Final 10/30/24 10:46 Aspirate - Abdominal Wound Culture - Final Presumptive C albicans Enterococcus faecalis 10/30/24 10:46 Aspirate - Abdominal Anaerobic Culture - Final No anaerobic bacteria isolated. 10/28/24 09:05 Wound Abcess - Abdominal Gram Stain - Final 10/28/24 09:05 Wound Abcess - Abdominal Wound Culture - Final Escherichia coli Presumptive C albicans 10/28/24 09:05 Wound Abcess - Abdominal Anaerobic Culture - Final No anaerobic bacteria isolated. 10/26/24 12:42 Blood Culture (Wb) - Left Hand Blood Culture - Final No growth in 5 days. 10/26/24 11:55 Blood Culture (Wb) - Other Blood Culture - Final No growth in 5 days. 10/25/24 06:05 Blood Culture (Wb) - Anticubital Left Blood Culture - Final Staphylococcus epidermidis 10/25/24 06:00 Blood Culture (Wb) - Anticubital Right Bacteria Detection (PCR) - Final Staphylococcus epidermidis mecA Resistance Marker 10/25/24 06:00 Blood Culture (Wb) - Anticubital Right Blood Culture - Final Gram positive organism Dosing Weight Weight used for dosin kg Estimated Creatinine Clearance Estimated Creatinine Clearance: ~ 68 Goal Trough Goal Trough: 15-20 mcg/mL Pharmacy Plan for Drug Dosing Pharmacy Plan for Drug Dosing: Vancomycin trough = 17.7, continue current dosing Pharmacy Service will continue to monitor and adjust dosing as required. Follow-Up Labs Follow-Up Labs: Trough: Vancomycin Date/Time Labs Ordered Labs to be done on [date and time ordered]: 11/15/24 @ 1900
[2024-11-13] MEDS: Vancomycin IV 1,000 MG/200 ML BAG 200 MG IV (20:52)
[2024-11-13] MEDS: Atorvastatin Calcium 80 MG Tablet PO (21:01)
[2024-11-13 23:42] LABS: Bedside Glucose 181 mg/dL (74-106)
[2024-11-14] VITALS (10 sets, daily range): BP systolic 105–154; BP diastolic 43–72; PULSE 65–78; RESP 15–18; TEMP 36.3–36.7; O2SAT 92–98
[2024-11-14] MEDS: metroNIDAZOLE 500 MG/100 ML BAG 100 MG IV ×4 (00:02→22:54)
[2024-11-14] MEDS: 0.9% Saline Lock 10 ML Syringe IV ×4 (00:45→22:59)
[2024-11-14] MEDS: Ondansetron 4 MG/2 ML Vial IV ×3 (00:45→19:39)
[2024-11-14] MEDS: Cefepime HCl 2 GM in 0.9% Normal Saline (100mL MB+) 100 ML IV ×3 (05:03→22:53)
[2024-11-14] MEDS: Insulin Lispro 100 UNIT/ML INSULN.PEN SC ×3 (06:20→22:55)
[2024-11-14 06:41] LABS: Absolute Neutrophil Count 7.9 X10^3/uL (2.0-7.7); Basophil# 0.06 X10^3/uL; Basophil% 0.6 % (0-1); Eosinophil# 0.08 X10^3/uL; Eosinophils% 0.8 % (0-5); Hematocrit 26.6 % (37-47); Hemoglobin 8.3 g/dL (12.0-15.0); Lymphocyte % 9.9 % (19-41); Mean Corp Hgb Conc 31.2 g/dL (32-36); Mean Corpuscular Volume 80.1 fL (81-99); Mean Platelet Vol. 9.2 fl (6.2-12.0); Monocyte# 0.73 X10^3/uL; Monocyte% 7.2 % (0-10); NRBC Flagged by Analyzer 0.2 % (0-5); Neutrophil # 7.94 X10^3/uL (2.7-7.7); Neutrophil % 78.6 % (47-70); POSITIVE MORPHOLOGY YES; Platelet Count 290 K/mm3 (150-450); RBC Distribution Width CV 21.2 % (11.6-14.6); RBC Distribution Width SD 59.8 fl (35.1-43.9); Red Blood Count 3.32 M/mm3 (4.2-5.4); White Blood Count 10.1 K/mm3 (4.4-11.0)
[2024-11-14 06:41] LABS: Bedside Glucose 186 mg/dL (74-106)
[2024-11-14 06:45] LABS: Differential Indicated SCAN CRITERIA MET
--- NOTE | 2024-11-14 07:15 | EKG12_ITS ---
Test Reason : PAUSES Blood Pressure : */* mmHG Vent. Rate : 68 BPM Atrial Rate : 68 BPM P-R Int : 150 ms QRS Dur : 86 ms QT Int : 386 ms P-R-T Axes : 64 36 50 degrees QTcB Int : 410 ms Normal sinus rhythm Normal ECG When compared with ECG of 01-Nov-2024 00:54, Sinus rhythm has replaced Atrial fibrillation Vent. rate has decreased by 71 bpm Confirmed by CATHERINE GAFFNEY, BRIA ([id number]), map editor HARVEY RODRIGUEZ ([id number]) on 11/17/2024 10:42:19 AM Referred By: MARTA Confirmed By: BRIA ALEXANDER MD
[2024-11-14 07:16] LABS: Anisocytosis 2+; Differential Comment SCANNED; Polychromasia 1+
--- NOTE | 2024-11-14 08:12 | PN.CARD_ITS ---
Subjective Subjective We were called last evening about the patient having pauses on her telemetry. She had a 18-second pause associated with nausea. She also had a second 10- second pause approximately 3 to 4 hours later. And when I was examining her this morning at approximately 0700 hrs. she had a drop in her heart rate down into the 40 bpm range which appeared to be on telemetry a junctional escape rhythm. Patient is EKG done just prior to that showed normal sinus rhythm at 68 bpm. The patient was complaining of nausea at the time of the junctional rhythm when I was examining her. The patient developed atrial fibrillation during this hospitalization and was treated with diltiazem and converted to sinus rhythm. She was subsequently placed on Coreg 25 mg twice daily. We actually decreased the dose which she has not received yet and have discontinued it as of this morning. Blood work is pending at this time. The patient has had a long hospitalization related to GI surgical issues including small bowel obstruction. The patient does have a persistent drain in place in her right abdominal wall. The patient also has a history of mental status changes and cannot tell me what month it is, where she is, or who the president is. She is able to tell me that she is nauseated and feels bad. Previous echo on this hospitalization showed normal LV function with a EF of 65%. There was no diastolic dysfunction. There is no significant valvular heart disease documented. Objective Data Vital Signs: Vital Signs Temp Pulse Resp BP Pulse Ox O2 Del Method O2 Flow Rate 97.4 F L 65 18 105/51 L 94 Nasal Cannula 1 11/14/24 04:10 11/14/24 06:45 11/14/24 04:10 11/14/24 06:45 11/14/24 04:10 11/14/24 04:10 11/14/24 04:10 FiO2 94 11/12/24 07:17 Oxygen Flow Rate (L/min) 1 Oxygen Delivery Method Nasal Cannula Weight: 244 lb 15.995 oz Body Mass Index (BMI) 39.5 Intake & Output: Intake and Output for Last 24 Hours 11/12/24 11/13/24 11/14/24 23:59 23:59 23:59 Intake Total 1525 / 1525 1505 / 1505 420 / 420 Output Total 1800 / 1800 1750 / 1750 650 / 650 Balance -275 / -275 -245 / -245 -230 / -230 Lab / Micro Data Attestation: I reviewed the patient's lab results. 11/14/24 06:08 11/13/24 06:32 Labs: Laboratory Results - last 24 hr 11/13/24 06:32: Hypochromasia 1+, Anisocytosis 1+ 11/13/24 08:41: Hgb 7.2 L, Hct 22.4 L 11/13/24 12:16: Blood Type A NEGATIVE, Antibody Screen NEGATIVE, Crossmatch See Detail 11/13/24 12:19: POC Glucose 213 H 11/13/24 17:20: POC Glucose 245 H 11/13/24 19:10: Vancomycin Trough 17.7 H 11/13/24 20:59: POC Glucose 181 H 11/14/24 06:08: WBC 10.1, RBC 3.32 L, Hgb 8.3 L, Hct 26.6 L, MCV 80.1 L, MCH 25.0 L, MCHC 31.2 L, RDW Std Deviation 59.8 H, RDW Coeff of Faby 21.2 H, Plt Count 290, MPV 9.2, Immature Gran % (Auto) 2.900 H, Neut % (Auto) 78.6 H, Lymph % (Auto) 9.9 L, [place] % (Auto) 7.2, Eos % (Auto) 0.8, Baso % (Auto) 0.6, Absolute Neuts (auto) 7.9 H, Absolute Lymphs (auto) 1.00, Nucleated RBC % 0.2, Differential Comment SCANNED, Polychromasia 1+, Anisocytosis 2+ 11/14/24 06:15: POC Glucose 186 H Micro: Microbiology 11/10/24 08:00 Wound - Abdominal Gram Stain - Final 11/10/24 08:00 Wound - Abdominal Wound Culture - Preliminary 11/10/24 08:00 Wound - Abdominal Anaerobic Culture - Preliminary Checking for anaerobes, further studies to follow. Rhythm Strip Rhythm Strip: Sinus Rhythm Rate: 68 Cardiology Labs/Tests 11/13/24 08:41: Hgb 7.2 L, Hct 22.4 L 11/14/24 06:08: WBC 10.1, RBC 3.32 L, Hgb 8.3 L, Hct 26.6 L, MCV 80.1 L, MCH 25.0 L, MCHC 31.2 L, Plt Count 290, MPV 9.2, Immature Gran % (Auto) 2.900 H, N eut % (Auto) 78.6 H, Lymph % (Auto) 9.9 L, [place] % (Auto) 7.2, Eos % (Auto) 0.8, Baso % (Auto) 0.6, Absolute Neuts (auto) 7.9 H, Nucleated RBC % 0.2 Rhythm: EKG: ECHO: Stress Test: Cardiac Cath: PCI: CT Surgery: Holter monitor: EPS: PPM: CXR: Chest CT Scan: EKG Follow-up EKG: Attestation: I personally reviewed and interpreted this EKG as follows: (Normal sinus rhythm at 68 bpm and otherwise normal.) Physical Exam Narrative Morbidly obese white female resting in semirecumbent position in bed. Const alert Constitutional Narrative: Oriented only to person. HEENT normocephalic Eyes EOMs intact bilaterally Neck no JVD Chest inspection of chest normal Resp normal respiratory effort Auscultation: diminished lung sounds diffuse Cardio Rate: bradycardia Rhythm: regular rhythm Heart Sounds: S1 normal and S2 normal; Negative for click, gallop or murmur GI GI Narrative: Obese with a drain in place and on the right side of her abdomen. And a clean dry dressing. Extremity General Extremity: edema bilateral lower extremity Details: moderate Skin Skin Narrative: Hyperpigmentation of both lower extremities. Psych Psych Narrative: Patient is disoriented. She is pleasant and answers questions but does not know the president she does not know where she is she does not know the date of the month. However she has been hospitalized for a prolonged period of time. Assessment & Plan Assessment/Plan (1) Junctional bradycardia: PLAN: Patient is presenting with nausea and some scant emesis. She is developing junctional bradycardia with this as well as prolonged pauses. These are probably been exacerbated by her beta-felix. The Coreg will be discontinued. She had been on Coreg in her home environment prior to her surgical intervention. This appears to be related to hypertension as her LV function is normal with an EF of 65%. Laboratory evaluation for electrolytes and magnesium are pending at this time. She does have anemia her renal function is normal. I would recommend that we address her metabolic derangements as they are at her identified. Should hold any rate modulating drugs. And identify the etiology of her nausea. (2) Atrial fibrillation: QUALIFIERS: Atrial fibrillation type: unspecified Qualified Code(s): I48.91 - Unspecified atrial fibrillation PLAN: Patient had an episode of atrial fibrillation earlier in this hospitalization which has not recurred. She was tachycardic requiring both IV Cardizem and beta-felix therapy to control her rate. This may be a presentation of tachybradycardia syndrome. However prior to considering permanent pacemaker implantation for this bradycardia and transient heart block we need to rule out metabolic issues. The patient would be at increased risk of having infection of the device implanted at this point in time given her current surgical situation. PLAN: Plan 1. CMP and magnesium are still pending. Any abnormalities need to be corrected. 2. Will continue to monitor the patient expectantly. 3. Will defer to the primary service for evaluation of etiologies of this nausea. It appeared her nausea preceded the junctional rhythm that I witnessed this morning. Charges/Coding Visit Charges Inpatient E&M: [id number] [facility] Hosp L3
--- NOTE | 2024-11-14 08:54 | RAD_ITS ---
PROCEDURE: ABDOMEN SINGLE VIEW (PORTABLE) 11/14/2024 REASON FOR EXAM: NEW COMPLAINTS OF NAUSEA, VOMITING, ABDOMINAL PAIN TECHNIQUE: Single view abdomen. COMPARISON: 11/09/2024 FINDINGS: Bowel gas: Gaseous large bowel loop now measures up to at least 9 cm in caliber. No gaseous small bowel dilation. Calcifications: No suspicious calcifications. RAD/Abdomen Single View (Portable) IMPRESSION: Persistent gaseous large bowel dilation. Reading Location: [facility]
[2024-11-14 09:37] LABS: ALB/GLOB Ratio 0.7 RATIO (0.9-2.4); AST(SGOT) 25 U/L (<=31); Alanine Aminotransfer ALT/SGPT 11 U/L (<=34); Albumin, Serum 1.9 g/dL (3.4-4.8); Alkaline Phosphatase 71 U/L (35-104); Anion Gap 6 (5-15); BUN 21 mg/dL (4-19); BUN/Creat Ratio 17.8 RATIO (10-20); Calcium,Total 8.9 mg/dL (7.6-11.0); Chloride 100 mmol/L (98-108); Creatinine, Serum 1.16 mg/dL (0.70-1.20); EST Glomerular Filtration Rate 51 (>60); Estimated Creatinine Clearance 57.83 ml/min (50-250); Globulin 2.9 g/dL (2.2-4.2); Glucose 176 mg/dL (70-99); Magnesium 1.5 mg/dL (1.5-2.2); Potassium 3.2 mmol/L (3.3-5.1); Protein, Total 4.8 g/dL (5.9-8.4); Sodium Level 137 mmol/L (133-145)
--- NOTE | 2024-11-14 09:56 | PN_ITS ---
Subjective Subjective Patient seen and examined. She had no active complaints and had an uneventful night. She received one unit of PRBC yesterday. Hb today is up to 8.3. She is on 1L of oxygen and she has remained hemodynamically stable. Objective Data Objective Data Vital Signs: Vital Signs Temp Pulse Resp BP Pulse Ox O2 Del Method O2 Flow Rate 97.8 F 67 15 128/52 H 96 Nasal Cannula 1 11/14/24 08:18 11/14/24 08:18 11/14/24 08:18 11/14/24 08:18 11/14/24 08:18 11/14/24 08:18 11/14/24 08:18 FiO2 94 11/12/24 07:17 Oxygen Flow Rate (L/min) 1 Oxygen Delivery Method Nasal Cannula Weight: 244 lb 15.995 oz Body Mass Index (BMI) 39.5 Intake & Output: Intake and Output for Last 24 Hours 11/12/24 11/13/24 11/14/24 23:59 23:59 23:59 Intake Total 1525 / 1525 1505 / 1505 420 / 420 Output Total 1800 / 1800 1750 / 1750 650 / 650 Balance -275 / -275 -245 / -245 -230 / -230 Lab / Micro Data 11/14/24 06:08 11/14/24 06:08 Labs: Laboratory Results - last 24 hr 11/13/24 12:16: Blood Type A NEGATIVE, Antibody Screen NEGATIVE, Crossmatch See Detail 11/13/24 12:19: POC Glucose 213 H 11/13/24 17:20: POC Glucose 245 H 11/13/24 19:10: Vancomycin Trough 17.7 H 11/13/24 20:59: POC Glucose 181 H 11/14/24 06:08: WBC 10.1, RBC 3.32 L, Hgb 8.3 L, Hct 26.6 L, MCV 80.1 L, MCH 25.0 L, MCHC 31.2 L, RDW Std Deviation 59.8 H, RDW Coeff of Faby 21.2 H, Plt Count 290, MPV 9.2, Immature Gran % (Auto) 2.900 H, Neut % (Auto) 78.6 H, Lymph % (Auto) 9.9 L, [place] % (Auto) 7.2, Eos % (Auto) 0.8, Baso % (Auto) 0.6, Absolute Neuts (auto) 7.9 H, Absolute Lymphs (auto) 1.00, Nucleated RBC % 0.2, Differential Comment SCANNED, Polychromasia 1+, Anisocytosis 2+, Sodium 137, P otassium 3.2 L, Chloride 100, Carbon Dioxide 31.0, Anion Gap 6, BUN 21 H, Creatinine 1.16, Estim Creat Clear Calc 57.83, Est GFR (MDRD) Non-Af 51 L, BUN/Creatinine Ratio 17.8, Glucose 176 H, Calcium 8.9, Magnesium 1.5, Total Bilirubin 0.30, AST 25, ALT 11, Alkaline Phosphatase 71, Total Protein 4.8 L, A lbumin 1.9 L, Globulin 2.9, Albumin/Globulin Ratio 0.7 L 11/14/24 06:15: POC Glucose 186 H Micro: Microbiology 11/10/24 08:00 Wound - Abdominal Gram Stain - Final 11/10/24 08:00 Wound - Abdominal Wound Culture - Preliminary 11/10/24 08:00 Wound - Abdominal Anaerobic Culture - Preliminary Checking for anaerobes, further studies to follow. 11/04/24 Unknown Wound Abcess - Other Gram Stain - Final 11/04/24 Unknown Wound Abcess - Other Wound Culture - Final Yeast, not Marguerite albicans Pseudomonas aeruginosa 11/04/24 Unknown Wound Abcess - Other Anaerobic Culture - Final No anaerobic bacteria isolated. 11/04/24 Unknown Implant - Other Gram Stain - Final 11/04/24 Unknown Implant - Other Wound Culture - Final Yeast, not Marguerite albicans Pseudomonas aeruginosa 11/04/24 Unknown Implant - Other Anaerobic Culture - Final No anaerobic bacteria isolated. 10/30/24 10:46 Aspirate - Abdominal Gram Stain - Final 10/30/24 10:46 Aspirate - Abdominal Wound Culture - Final Presumptive C albicans Enterococcus faecalis 10/30/24 10:46 Aspirate - Abdominal Anaerobic Culture - Final No anaerobic bacteria isolated. 10/28/24 09:05 Wound Abcess - Abdominal Gram Stain - Final 10/28/24 09:05 Wound Abcess - Abdominal Wound Culture - Final Escherichia coli Presumptive C albicans 10/28/24 09:05 Wound Abcess - Abdominal Anaerobic Culture - Final No anaerobic bacteria isolated. 10/26/24 12:42 Blood Culture (Wb) - Left Hand Blood Culture - Final No growth in 5 days. 10/26/24 11:55 Blood Culture (Wb) - Other Blood Culture - Final No growth in 5 days. 10/25/24 06:05 Blood Culture (Wb) - Anticubital Left Blood Culture - Final Staphylococcus epidermidis 10/25/24 06:00 Blood Culture (Wb) - Anticubital Right Bacteria Detection (PCR) - Final Staphylococcus epidermidis mecA Resistance Marker 10/25/24 06:00 Blood Culture (Wb) - Anticubital Right Blood Culture - Final Gram positive organism Radiography Diagnostic Testing: Radiology Impression KUB X-Ray 11/14/24 08:54 IMPRESSION: Persistent gaseous large bowel dilation. Reading Location: [facility] Rhythm Strip Rhythm Strip: Sinus Rhythm Rate: 68 Physical Exam Const alert, oriented x3 and no apparent distress Constitutional Narrative: class III obesity General Appearance: cooperative HEENT normocephalic, head/scalp atraumatic, moist oral mucous membranes and oropharynx normal Eyes PERRL and EOMs intact bilaterally Neck no lymphadenopathy, supple and no JVD Lymph Lymphatic: no lymphadenopathy noted and no lymphedema noted Resp Resp Narrative: mildly diminished breath sounds bibasally, no wheezes or crackles. on 1L of oxygen Cardio regular rate, regular rhythm, S1 normal heart sound, S2 normal heart sound and no murmurs GI normal to inspection, nondistended, normoactive bowel sounds, soft to palpation, non-tender and non-distended GI Narrative: wound vac on abdominal wound. Auscultation: hypoactive bowel sounds Extremity normal to inspection, full ROM, normal capillary refill, no clubbing, cyanosis or edema and no calf tenderness General Extremity: edema bilateral upper extremity and lower extremity and no tenderness to palpation of joints or extremities Skin General Skin Exam: no breakdown Neuro CN's II-XII intact bilaterally, no focal motor deficits and no sensory deficits noted Sensorium / Orientation: awake and alert Motor Exam: strength 5/5 throughout and general weakness Psych thought process normal, cooperative and affect normal Appearance: appropriate Assessment & Plan Assessment/Plan (1) Postoperative wound infection: (2) Ventral hernia: QUALIFIERS: Obstruction and gangrene presence: with obstruction but without gangrene Qualified Code(s): K43.6 - Other and unspecified ventral hernia with obstruction, without gangrene PLAN: Plan #JEANNE: resolved #Small bowel obstruction * seen on CT from 11/03/2024. * management as per general surgery * #Post op surgical site infection * Wound cultures growing yeast and pseudomonas. * blood cultures positive for Staph epidermidis * on IV vancomycin, cefepime, metronidazole and micafungin * management as per ID. * wound vac in situ * #afib: on carvedilol and eliquis #Acute blood loss anemia: * was transfused with one unit of PRBC yesterday * Hb today is 8.3. * #Hypokalemia: K is 3.2. Will replace and trend. #Acute encephalopathy: * Largely resolved. * Avoid sedating medication. * Patient had previously refused Ct of the brain. * Ammonia level was not elevated. #Type 2 diabetes mellitus: on ISS. Accuchecks ACHS. #Fluid overload: Improved significantly. On PO lasix 40mg bid. #Hypertension: on carvedilol. #Class III obesity: complicates acute care, expected recovery and prognosis DVT prophylaxis: already on eliquis. Disposition: awaiting placement Charges/Coding Visit Charges Inpatient E&M: 89023 Subs Hosp L2
--- NOTE | 2024-11-14 10:00 | PN.SURG_ITS ---
Subjective Subjective Patient seen and examined during AM rounds. Immediately upon entering the room patient declares that she has been up all night with nausea and retching. She is uncertain why this all started. She also complains of some associated abdominal discomfort. Objective Data Objective Data Vital Signs: Vital Signs Temp Pulse Resp BP Pulse Ox O2 Del Method O2 Flow Rate 97.8 F 67 15 128/52 H 96 Nasal Cannula 1 11/14/24 08:18 11/14/24 08:18 11/14/24 08:18 11/14/24 08:18 11/14/24 08:18 11/14/24 08:18 11/14/24 08:18 FiO2 94 11/12/24 07:17 Oxygen Flow Rate (L/min) 1 Oxygen Delivery Method Nasal Cannula Weight: 244 lb 15.995 oz Body Mass Index (BMI) 39.5 Intake & Output: Intake and Output for Last 24 Hours 11/12/24 11/13/24 11/14/24 23:59 23:59 23:59 Intake Total 1525 / 1525 1505 / 1505 420 / 420 Output Total 1800 / 1800 1750 / 1750 650 / 650 Balance -275 / -275 -245 / -245 -230 / -230 Lab / Micro Data 11/14/24 06:08 11/14/24 06:08 Labs: Laboratory Results - last 24 hr 11/13/24 12:16: Blood Type A NEGATIVE, Antibody Screen NEGATIVE, Crossmatch See Detail 11/13/24 12:19: POC Glucose 213 H 11/13/24 17:20: POC Glucose 245 H 11/13/24 19:10: Vancomycin Trough 17.7 H 11/13/24 20:59: POC Glucose 181 H 11/14/24 06:08: WBC 10.1, RBC 3.32 L, Hgb 8.3 L, Hct 26.6 L, MCV 80.1 L, MCH 25.0 L, MCHC 31.2 L, RDW Std Deviation 59.8 H, RDW Coeff of Faby 21.2 H, Plt Count 290, MPV 9.2, Immature Gran % (Auto) 2.900 H, Neut % (Auto) 78.6 H, Lymph % (Auto) 9.9 L, [place] % (Auto) 7.2, Eos % (Auto) 0.8, Baso % (Auto) 0.6, Absolute Neuts (auto) 7.9 H, Absolute Lymphs (auto) 1.00, Nucleated RBC % 0.2, Differential Comment SCANNED, Polychromasia 1+, Anisocytosis 2+, Sodium 137, P otassium 3.2 L, Chloride 100, Carbon Dioxide 31.0, Anion Gap 6, BUN 21 H, Creatinine 1.16, Estim Creat Clear Calc 57.83, Est GFR (MDRD) Non-Af 51 L, BUN/Creatinine Ratio 17.8, Glucose 176 H, Calcium 8.9, Magnesium 1.5, Total Bilirubin 0.30, AST 25, ALT 11, Alkaline Phosphatase 71, Total Protein 4.8 L, A lbumin 1.9 L, Globulin 2.9, Albumin/Globulin Ratio 0.7 L 11/14/24 06:15: POC Glucose 186 H Micro: Microbiology 11/10/24 08:00 Wound - Abdominal Gram Stain - Final 11/10/24 08:00 Wound - Abdominal Wound Culture - Preliminary 11/10/24 08:00 Wound - Abdominal Anaerobic Culture - Preliminary Checking for anaerobes, further studies to follow. 11/04/24 Unknown Wound Abcess - Other Gram Stain - Final 11/04/24 Unknown Wound Abcess - Other Wound Culture - Final Yeast, not Marguerite albicans Pseudomonas aeruginosa 11/04/24 Unknown Wound Abcess - Other Anaerobic Culture - Final No anaerobic bacteria isolated. 11/04/24 Unknown Implant - Other Gram Stain - Final 11/04/24 Unknown Implant - Other Wound Culture - Final Yeast, not Marguerite albicans Pseudomonas aeruginosa 11/04/24 Unknown Implant - Other Anaerobic Culture - Final No anaerobic bacteria isolated. 10/30/24 10:46 Aspirate - Abdominal Gram Stain - Final 10/30/24 10:46 Aspirate - Abdominal Wound Culture - Final Presumptive C albicans Enterococcus faecalis 10/30/24 10:46 Aspirate - Abdominal Anaerobic Culture - Final No anaerobic bacteria isolated. 10/28/24 09:05 Wound Abcess - Abdominal Gram Stain - Final 10/28/24 09:05 Wound Abcess - Abdominal Wound Culture - Final Escherichia coli Presumptive C albicans 10/28/24 09:05 Wound Abcess - Abdominal Anaerobic Culture - Final No anaerobic bacteria isolated. 10/26/24 12:42 Blood Culture (Wb) - Left Hand Blood Culture - Final No growth in 5 days. 10/26/24 11:55 Blood Culture (Wb) - Other Blood Culture - Final No growth in 5 days. 10/25/24 06:05 Blood Culture (Wb) - Anticubital Left Blood Culture - Final Staphylococcus epidermidis 10/25/24 06:00 Blood Culture (Wb) - Anticubital Right Bacteria Detection (PCR) - Final Staphylococcus epidermidis mecA Resistance Marker 10/25/24 06:00 Blood Culture (Wb) - Anticubital Right Blood Culture - Final Gram positive organism Radiography Diagnostic Testing: Radiology Impression KUB X-Ray 11/14/24 08:54 IMPRESSION: Persistent gaseous large bowel dilation. Reading Location: [facility] Rhythm Strip Rhythm Strip: Sinus Rhythm Rate: 68 Physical Exam Const Constitutional Narrative: Patient appears ill but alert. She was unable to give either the correct month or the year when orientation was assessed Resp normal respiratory effort GI GI Narrative: Mildly distended, soft, mild tenderness present diffusely upon palpation. Wound VAC in place to right lower quadrant with good seal. No surrounding erythema or tenderness particular about this area. Assessment & Plan Assessment/Plan (1) Postoperative wound infection: PLAN: Patient is 68-year-old female status post exploratory laparotomy small bowel resection and reanastomosis as well as mesh removal 11/04/2024. Overnight patient apparently developed some nausea and had some associated cardiac pauses on 2 separate occasions. Cardiology has evaluated him and discontinued patient's Coreg. This appears to have resulted in last telemetry activity. Patient was initially made n.p.o. but later checking with nursing her nausea dissipated so she was resumed on a clear liquid diet. KUB was performed and shows some persistent gaseous distention of her transverse colon in isolated fashion. Significance of this is unknown but could be related to a postoperative ileus. Despite this conjecture patient has been reportedly having bowel activity per nursing. Meanwhile patient's wound VAC appears appropriate and would next be due for a change tomorrow or the day following. ? Advance diet as tolerated ? Patient again encouraged to work with her caregivers and mobilize as she is able ? Encourage I.S. ? Continue adherence to sleep schedule to promote normal circadian rhythm and mitigate risk for acute delirium. ? Continue IV antibiotics per ID recommendations until 11/22/2024 ? Continue close cardiac monitoring Possible discharge to home [facility] facility tomorrow 11/15/2024 pending confirmation of acceptance and improved clinical status Charges/Coding Visit Charges Inpatient E&M: 89529 Subs Hosp L2
--- NOTE | 2024-11-14 10:28 | CASEMGMT ---
SW received a voice mail from [facility] who handles SNF requests for patient's insurance. They have the intent to deny unless the doctor calls and does a peer to peer. The phone number is option 5. This must be done today 4-18 by noon. SW notified surgeon who will do his best especially with the short notice. Angy Chavira [employer] NANCY
[2024-11-14] MEDS: Micafungin Sodium 100 MG in Dextrose 5%-Water (100mL Bag) 100 ML IV (10:41)
[2024-11-14] MEDS: Magnesium Sulfate 4gm/100mL 4 GM/100 ML IV.SOLN. IV (10:46)
[2024-11-14] MEDS: 0.9% Normal Saline (100mL Bag) 100 ML 10 ML IV (10:48)
[2024-11-14] MEDS: Potassium Chloride 10mEq/100mL 10 MEQ/100 ML IV.SOLN. 100 MEQ IV BOLUS ×4 (10:49→14:54)
[2024-11-14] MEDS: Pantoprazole Sodium 40 MG Tablet PO (10:56)
[2024-11-14] MEDS: Menthol/Lanolin/Calamine/Znox 113 GM Tube 1 APPLIC TOPICAL ×2 (10:57→13:40)
[2024-11-14] MEDS: Furosemide 40 MG Tablet PO ×2 (10:57→16:43)
[2024-11-14] MEDS: Glucerna Shake 120 ML LIQUID PO ×2 (10:57→16:43)
[2024-11-14] MEDS: Enoxaparin 40 MG/0.4 ML Syringe SC (10:58)
[2024-11-14] MEDS: Nystatin Powder 15gm Bottle 1 APPLIC TOPICAL ×3 (10:58→22:53)
[2024-11-14] MEDS: Bisacodyl 10 MG Suppository RC (11:05)
[2024-11-14 11:32] LABS: Bedside Glucose 170 mg/dL (74-106)
--- NOTE | 2024-11-14 12:04 | CASEMGMT ---
Pt has been approved for skilled stay. [facility] aware that pt may discharge over the weekend. Green sheet and transport form placed on chart. Nakia Hinton DC Planning Asst.
[2024-11-14 17:04] LABS: Bedside Glucose 148 mg/dL (74-106)
[2024-11-14] MEDS: Vancomycin IV 1,000 MG/200 ML BAG 200 MG IV (18:36)
[2024-11-14] MEDS: Atorvastatin Calcium 80 MG Tablet PO (22:59)
[2024-11-15] LABS: Bedside Glucose 187 mg/dL (74-106)
[2024-11-15 01:48] VITALS: PULSE 73; RESP 16
[2024-11-15] MEDS: Ipratropium/Albuterol Sulfate 3 ML AMPUL.NEB INHALATION (01:48)
[2024-11-15 03:00] VITALS: PULSE 66
[2024-11-15 06:23] VITALS: BP 118/79; PULSE 67; RESP 15; TEMP 526.5; TEMP 979.7; O2SAT 97
[2024-11-15] MEDS: metroNIDAZOLE 500 MG/100 ML BAG 100 MG IV (06:35)
[2024-11-15] MEDS: Cefepime HCl 2 GM in 0.9% Normal Saline (100mL MB+) 100 ML IV (06:38)
[2024-11-15] MEDS: Insulin Lispro 100 UNIT/ML INSULN.PEN SC ×2 (06:39→13:16)
[2024-11-15] MEDS: Ondansetron 4 MG/2 ML Vial IV (06:40)
[2024-11-15] MEDS: 0.9% Saline Lock 10 ML Syringe IV (06:40)
[2024-11-15 06:42] LABS: Absolute Lymphocyte Count 1.18 X10^3/uL (0.83-4.51); Absolute Neutrophil Count 7.7 X10^3/uL (2.0-7.7); Basophil# 0.07 X10^3/uL; Basophil% 0.7 % (0-1); Eosinophil# 0.16 X10^3/uL; Eosinophils% 1.6 % (0-5); Hematocrit 28.4 % (37-47); Hemoglobin 8.9 g/dL (12.0-15.0); Lymphocyte # 1.18 X10^3/ul (0.83-4.51); Lymphocyte % 11.5 % (19-41); Mean Corp Hgb Conc 31.3 g/dL (32-36); Mean Corpuscular Hgb 25.1 pg (27.0-32.0); Mean Platelet Vol. 9.4 fl (6.2-12.0); Monocyte# 0.99 X10^3/uL; Monocyte% 9.6 % (0-10); NRBC Flagged by Analyzer 0.2 % (0-5); Neutrophil # 7.69 X10^3/uL (2.7-7.7); Neutrophil % 74.7 % (47-70); POSITIVE MORPHOLOGY YES; Platelet Count 308 K/mm3 (150-450); RBC Distribution Width CV 21.8 % (11.6-14.6); RBC Distribution Width SD 61.6 fl (35.1-43.9); Red Blood Count 3.55 M/mm3 (4.2-5.4); White Blood Count 10.3 K/mm3 (4.4-11.0)
[2024-11-15 06:44] LABS: Differential Indicated SCAN CRITERIA MET
[2024-11-15 07:01] LABS: Bedside Glucose 160 mg/dL (74-106)
[2024-11-15 07:08] VITALS: O2SAT 93
[2024-11-15 07:31] LABS: Anisocytosis 1+; Hypochromasia 1+
--- NOTE | 2024-11-15 09:32 | PCM.PN.SRG ---
Subjective Subjective Patient is tolerating some diet and reports that she had diarrhea overnight Objective Data Objective Data Vital Signs: Vital Signs Temp Pulse Resp BP Pulse Ox O2 Del Method O2 Flow Rate 979.7 F H 67 15 118/79 97 Nasal Cannula 3 11/15/24 06:23 11/15/24 06:23 11/15/24 06:23 11/15/24 06:23 11/15/24 06:23 11/15/24 06:26 11/15/24 06:26 FiO2 94 11/12/24 07:17 Oxygen Flow Rate (L/min) 3 Oxygen Delivery Method Nasal Cannula Weight: 244 lb 15.995 oz Body Mass Index (BMI) 39.5 Intake & Output: Intake and Output for Last 24 Hours 11/13/24 11/14/24 11/15/24 23:59 23:59 23:59 Intake Total 1505 / 1505 1925 / 1925 400 / 400 Output Total 1750 / 1750 1300 / 1300 1350 / 1350 Balance -245 / -245 625 / 625 -950 / -950 Lab / Micro Data 11/15/24 06:23 11/14/24 06:08 Labs: Laboratory Results - last 24 hr 11/14/24 06:08: Sodium 137, Potassium 3.2 L, Chloride 100, Carbon Dioxide 31.0, Anion Gap 6, BUN 21 H, Creatinine 1.16, Estim Creat Clear Calc 57.83, Est GFR (MDRD) Non-Af 51 L, BUN/Creatinine Ratio 17.8, Glucose 176 H, Calcium 8.9, Magnesium 1.5, Total Bilirubin 0.30, AST 25, ALT 11, Alkaline Phosphatase 71, Total Protein 4.8 L, Albumin 1.9 L, Globulin 2.9, Albumin/Globulin Ratio 0.7 L 11/14/24 11:11: POC Glucose 170 H 11/14/24 16:42: POC Glucose 148 H 11/14/24 22:50: POC Glucose 187 H 11/15/24 06:23: WBC 10.3, RBC 3.55 L, Hgb 8.9 L, Hct 28.4 L, MCV 80.0 L, MCH 25.1 L, MCHC 31.3 L, RDW Std Deviation 61.6 H, RDW Coeff of Faby 21.8 H, Plt Count 308, MPV 9.4, Immature Gran % (Auto) 1.900 H, Neut % (Auto) 74.7 H, Lymph % (Auto) 11.5 L, [place] % (Auto) 9.6, Eos % (Auto) 1.6, Baso % (Auto) 0.7, Absolute Neuts (auto) 7.7, Absolute Lymphs (auto) 1.18, Nucleated RBC % 0.2, Hypochromasia 1+, Anisocytosis 1+ 11/15/24 06:34: POC Glucose 160 H Micro: Microbiology 11/10/24 08:00 Wound - Abdominal Gram Stain - Final 11/10/24 08:00 Wound - Abdominal Wound Culture - Preliminary Yeast, not Marguerite albicans 11/10/24 08:00 Wound - Abdominal Anaerobic Culture - Final No anaerobic bacteria isolated. 11/04/24 Unknown Wound Abcess - Other Gram Stain - Final 11/04/24 Unknown Wound Abcess - Other Wound Culture - Final Yeast, not Marguerite albicans Pseudomonas aeruginosa 11/04/24 Unknown Wound Abcess - Other Anaerobic Culture - Final No anaerobic bacteria isolated. 11/04/24 Unknown Implant - Other Gram Stain - Final 11/04/24 Unknown Implant - Other Wound Culture - Final Yeast, not Marguerite albicans Pseudomonas aeruginosa 11/04/24 Unknown Implant - Other Anaerobic Culture - Final No anaerobic bacteria isolated. 10/30/24 10:46 Aspirate - Abdominal Gram Stain - Final 10/30/24 10:46 Aspirate - Abdominal Wound Culture - Final Presumptive C albicans Enterococcus faecalis 10/30/24 10:46 Aspirate - Abdominal Anaerobic Culture - Final No anaerobic bacteria isolated. 10/28/24 09:05 Wound Abcess - Abdominal Gram Stain - Final 10/28/24 09:05 Wound Abcess - Abdominal Wound Culture - Final Escherichia coli Presumptive C albicans 10/28/24 09:05 Wound Abcess - Abdominal Anaerobic Culture - Final No anaerobic bacteria isolated. 10/26/24 12:42 Blood Culture (Wb) - Left Hand Blood Culture - Final No growth in 5 days. 10/26/24 11:55 Blood Culture (Wb) - Other Blood Culture - Final No growth in 5 days. 10/25/24 06:05 Blood Culture (Wb) - Anticubital Left Blood Culture - Final Staphylococcus epidermidis 10/25/24 06:00 Blood Culture (Wb) - Anticubital Right Bacteria Detection (PCR) - Final Staphylococcus epidermidis mecA Resistance Marker 10/25/24 06:00 Blood Culture (Wb) - Anticubital Right Blood Culture - Final Gram positive organism Rhythm Strip Rhythm Strip: Sinus Rhythm Rate: 68 Physical Exam Const oriented x3 and no apparent distress Resp normal respiratory effort GI soft to palpation and non-tender Assessment & Plan Assessment/Plan (1) Postoperative wound infection: PLAN: Patient seems to be doing well. She is having bowel function. She is not having any nausea this morning. I will discharge her to her ECF. Heri Robin MD Pager: [facility] [address] [place] [address], [address] [place] [address] Office:
[2024-11-15 09:43] VITALS: BP 121/58; PULSE 70; RESP 16; TEMP 36.4; O2SAT 100
[2024-11-15] MEDS: Menthol/Lanolin/Calamine/Znox 113 GM Tube 1 APPLIC TOPICAL (09:50)
[2024-11-15] MEDS: Potassium Chloride Oral Tablet 20 MEQ 40 MEQ PO (09:51)
[2024-11-15] MEDS: Nystatin Powder 15gm Bottle 1 APPLIC TOPICAL (09:52)
[2024-11-15] MEDS: Furosemide 40 MG Tablet PO (09:53)
[2024-11-15] MEDS: Pantoprazole Sodium 40 MG Tablet PO (09:53)
[2024-11-15] MEDS: Empagliflozin 25 MG Tablet PO (09:53)
[2024-11-15] MEDS: Enoxaparin 40 MG/0.4 ML Syringe SC (09:53)
--- NOTE | 2024-11-15 09:54 | PCM.PN.CARD ---
Subjective Subjective The patient reports she continues to have abdominal pain and feel nauseated. Her telemetry shows no significant pauses since 0900 hrs. 11/14/2024. We did discontinue her Coreg and her heart rates have remained in the 65 to 80 bpm range. Telemetry shows no significant pauses. Today's telemetry shows normal sinus rhythm with PACs and a heart rate of 68. Objective Data Vital Signs: Vital Signs Temp Pulse Resp BP Pulse Ox O2 Del Method O2 Flow Rate 97.5 F L 70 16 121/58 H 100 Nasal Cannula 3 11/15/24 09:43 11/15/24 09:43 11/15/24 09:43 11/15/24 09:43 11/15/24 09:43 11/15/24 09:43 11/15/24 09:43 FiO2 94 11/12/24 07:17 Oxygen Flow Rate (L/min) 3 Oxygen Delivery Method Nasal Cannula Weight: 244 lb 15.995 oz Body Mass Index (BMI) 39.5 Intake & Output: Intake and Output for Last 24 Hours 11/13/24 11/14/24 11/15/24 23:59 23:59 23:59 Intake Total 1505 / 1505 1925 / 1925 400 / 400 Output Total 1750 / 1750 1300 / 1300 1350 / 1350 Balance -245 / -245 625 / 625 -950 / -950 Lab / Micro Data 11/15/24 06:23 11/14/24 06:08 Labs: Laboratory Results - last 24 hr 11/14/24 11:11: POC Glucose 170 H 11/14/24 16:42: POC Glucose 148 H 11/14/24 22:50: POC Glucose 187 H 11/15/24 06:23: WBC 10.3, RBC 3.55 L, Hgb 8.9 L, Hct 28.4 L, MCV 80.0 L, MCH 25.1 L, MCHC 31.3 L, RDW Std Deviation 61.6 H, RDW Coeff of Faby 21.8 H, Plt Count 308, MPV 9.4, Immature Gran % (Auto) 1.900 H, Neut % (Auto) 74.7 H, Lymph % (Auto) 11.5 L, [place] % (Auto) 9.6, Eos % (Auto) 1.6, Baso % (Auto) 0.7, Absolute Neuts (auto) 7.7, Absolute Lymphs (auto) 1.18, Nucleated RBC % 0.2, Hypochromasia 1+, Anisocytosis 1+ 11/15/24 06:34: POC Glucose 160 H Micro: Microbiology 11/10/24 08:00 Wound - Abdominal Gram Stain - Final 11/10/24 08:00 Wound - Abdominal Wound Culture - Preliminary Yeast, not Marguerite albicans 11/10/24 08:00 Wound - Abdominal Anaerobic Culture - Final No anaerobic bacteria isolated. Rhythm Strip Rhythm Strip: Sinus Rhythm Rate: 68 Ectopy: PAC(s) Cardiology Labs/Tests 11/15/24 06:23: WBC 10.3, RBC 3.55 L, Hgb 8.9 L, Hct 28.4 L, MCV 80.0 L, MCH 25.1 L, MCHC 31.3 L, Plt Count 308, MPV 9.4, Immature Gran % (Auto) 1.900 H, Neut % (Auto) 74.7 H, Lymph % (Auto) 11.5 L, [place] % (Auto) 9.6, Eos % (Auto) 1.6, Baso % (Auto) 0.7, Absolute Neuts (auto) 7.7, Nucleated RBC % 0.2 Rhythm: EKG: ECHO: Stress Test: Cardiac Cath: PCI: CT Surgery: Holter monitor: EPS: PPM: CXR: Chest CT Scan: Physical Exam Const alert Constitutional Narrative: Patient today knows her name, she knows she is in [facility], and knows that it spring time she thought it was November. She has been hospitalized for an extended period of time. HEENT normocephalic Eyes EOMs intact bilaterally Chest Chest Narrative: Increased AP diameter due to body habitus Resp normal respiratory effort Auscultation: diminished lung sounds bilateral lower Cardio Rate: regular rate Rhythm: regular rhythm Heart Sounds: S1 normal and S2 normal; Negative for click, gallop or murmur GI GI Narrative: Wound VAC in place in the right midline area. Neuro Neuro Narrative: Patient alert and oriented to 2 and possibly 3. This is markedly improved from yesterday. Psych mental status grossly normal Assessment & Plan Assessment/Plan (1) Junctional bradycardia: PLAN: Patient has had no recurrence of her bradycardia or pauses since discontinuing the Coreg. Blood pressure remains adequately controlled on her current medical therapy. Laboratory evaluation yesterday showed no significant electrolyte abnormalities except potassium of 3.2 which was replaced.. Hemoglobin is up to 8.9 after 1 unit of packed red cells. The patient does have a total protein of only 4.8 and albumin of 1.9. Creatinine is 1.16. It appears the patient's junctional bradycardia was a combination of the beta-felix therapy with the Coreg and a vagal response to her nausea and pain. There is no indication to consider permanent pacemaker implantation at this point in time. (2) Atrial fibrillation: QUALIFIERS: Atrial fibrillation type: unspecified Qualified Code(s): I48.91 - Unspecified atrial fibrillation PLAN: Patient remains in sinus rhythm. Eliquis is on hold appropriately at this point in time. As long as the patient remains in sinus rhythm the Eliquis can be withheld. PLAN: Plan 1. Recommend continuing current cardiovascular medical treatment. 2. I do not feel that further cardiovascular intervention is indicated at this point in time. 3. We will follow up as needed please notify us if further assistance is needed. Charges/Coding Visit Charges Inpatient E&M: 60188 Subs Hosp L2
[2024-11-15] MEDS: Micafungin Sodium 100 MG in Dextrose 5%-Water (100mL Bag) 100 ML IV (10:06)
[2024-11-15] MEDS: Glucerna Shake 120 ML LIQUID PO (10:06)
--- NOTE | 2024-11-15 10:15 | PN_ITS ---
Subjective Subjective Patient seen and examined. She does complain of some nausea today. Review of systems otherwise negative. She is on 3 L of oxygen. Objective Data Objective Data Vital Signs: Vital Signs Temp Pulse Resp BP Pulse Ox O2 Del Method O2 Flow Rate 97.5 F L 70 16 121/58 H 100 Nasal Cannula 3 11/15/24 09:43 11/15/24 09:43 11/15/24 09:43 11/15/24 09:43 11/15/24 09:43 11/15/24 09:43 11/15/24 09:43 FiO2 94 11/12/24 07:17 Oxygen Flow Rate (L/min) 3 Oxygen Delivery Method Nasal Cannula Weight: 244 lb 15.995 oz Body Mass Index (BMI) 39.5 Intake & Output: Intake and Output for Last 24 Hours 11/13/24 11/14/24 11/15/24 23:59 23:59 23:59 Intake Total 1505 / 1505 1925 / 1925 400 / 400 Output Total 1750 / 1750 1300 / 1300 1350 / 1350 Balance -245 / -245 625 / 625 -950 / -950 Lab / Micro Data 11/15/24 06:23 11/14/24 06:08 Labs: Laboratory Results - last 24 hr 11/14/24 11:11: POC Glucose 170 H 11/14/24 16:42: POC Glucose 148 H 11/14/24 22:50: POC Glucose 187 H 11/15/24 06:23: WBC 10.3, RBC 3.55 L, Hgb 8.9 L, Hct 28.4 L, MCV 80.0 L, MCH 25.1 L, MCHC 31.3 L, RDW Std Deviation 61.6 H, RDW Coeff of Faby 21.8 H, Plt Count 308, MPV 9.4, Immature Gran % (Auto) 1.900 H, Neut % (Auto) 74.7 H, Lymph % (Auto) 11.5 L, [place] % (Auto) 9.6, Eos % (Auto) 1.6, Baso % (Auto) 0.7, Absolute Neuts (auto) 7.7, Absolute Lymphs (auto) 1.18, Nucleated RBC % 0.2, Hypochromasia 1+, Anisocytosis 1+ 11/15/24 06:34: POC Glucose 160 H Micro: Microbiology 11/10/24 08:00 Wound - Abdominal Gram Stain - Final 11/10/24 08:00 Wound - Abdominal Wound Culture - Preliminary Yeast, not Marguerite albicans 11/10/24 08:00 Wound - Abdominal Anaerobic Culture - Final No anaerobic bacteria isolated. 11/04/24 Unknown Wound Abcess - Other Gram Stain - Final 11/04/24 Unknown Wound Abcess - Other Wound Culture - Final Yeast, not Marguerite albicans Pseudomonas aeruginosa 11/04/24 Unknown Wound Abcess - Other Anaerobic Culture - Final No anaerobic bacteria isolated. 11/04/24 Unknown Implant - Other Gram Stain - Final 11/04/24 Unknown Implant - Other Wound Culture - Final Yeast, not Marguerite albicans Pseudomonas aeruginosa 11/04/24 Unknown Implant - Other Anaerobic Culture - Final No anaerobic bacteria isolated. 10/30/24 10:46 Aspirate - Abdominal Gram Stain - Final 10/30/24 10:46 Aspirate - Abdominal Wound Culture - Final Presumptive C albicans Enterococcus faecalis 10/30/24 10:46 Aspirate - Abdominal Anaerobic Culture - Final No anaerobic bacteria isolated. 10/28/24 09:05 Wound Abcess - Abdominal Gram Stain - Final 10/28/24 09:05 Wound Abcess - Abdominal Wound Culture - Final Escherichia coli Presumptive C albicans 10/28/24 09:05 Wound Abcess - Abdominal Anaerobic Culture - Final No anaerobic bacteria isolated. 10/26/24 12:42 Blood Culture (Wb) - Left Hand Blood Culture - Final No growth in 5 days. 10/26/24 11:55 Blood Culture (Wb) - Other Blood Culture - Final No growth in 5 days. 10/25/24 06:05 Blood Culture (Wb) - Anticubital Left Blood Culture - Final Staphylococcus epidermidis 10/25/24 06:00 Blood Culture (Wb) - Anticubital Right Bacteria Detection (PCR) - Final Staphylococcus epidermidis mecA Resistance Marker 10/25/24 06:00 Blood Culture (Wb) - Anticubital Right Blood Culture - Final Gram positive organism Rhythm Strip Rhythm Strip: Sinus Rhythm Rate: 68 Ectopy: PAC(s) Physical Exam Const alert, oriented x3 and no apparent distress Constitutional Narrative: class III obesity General Appearance: cooperative HEENT normocephalic, head/scalp atraumatic, moist oral mucous membranes and oropharynx normal Eyes PERRL and EOMs intact bilaterally Neck no lymphadenopathy, supple and no JVD Lymph Lymphatic: no lymphadenopathy noted and no lymphedema noted Resp Resp Narrative: mildly diminished breath sounds bibasally, no wheezes or crackles. on 3 L of oxygen Cardio regular rate, regular rhythm, S1 normal heart sound, S2 normal heart sound and no murmurs GI normal to inspection, nondistended, normoactive bowel sounds, soft to palpation, non-tender and non-distended GI Narrative: wound vac on abdominal wound. Auscultation: hypoactive bowel sounds Palpation: tender Extremity normal to inspection, full ROM, normal capillary refill, no clubbing, cyanosis or edema and no calf tenderness General Extremity: edema bilateral upper extremity and lower extremity and no tenderness to palpation of joints or extremities Skin General Skin Exam: no breakdown Neuro CN's II-XII intact bilaterally, no focal motor deficits and no sensory deficits noted Sensorium / Orientation: awake and alert Motor Exam: strength 5/5 throughout and general weakness Psych thought process normal, cooperative and affect normal Appearance: appropriate Assessment & Plan Assessment/Plan (1) Postoperative wound infection: (2) Ventral hernia: QUALIFIERS: Obstruction and gangrene presence: with obstruction but without gangrene Qualified Code(s): K43.6 - Other and unspecified ventral hernia with obstruction, without gangrene PLAN: Plan #JEANEN: resolved #Small bowel obstruction * seen on CT from 11/03/2024. * management as per general surgery * #Post op surgical site infection * Wound cultures growing yeast and pseudomonas. * blood cultures positive for Staph epidermidis * on IV vancomycin, cefepime, metronidazole and micafungin * management as per ID. * wound vac in situ * #afib: on carvedilol and eliquis #Acute blood loss anemia: * transfused with one unit of PRBC 2 days ago. * Hb today is 8.9. * #Hypokalemia: replaced. Will monitor. #Acute encephalopathy: * Largely resolved. * Avoid sedating medication. * Patient had previously refused Ct of the brain. * Ammonia level was not elevated. #Type 2 diabetes mellitus: on ISS. Accuchecks ACHS. #Fluid overload: Improved significantly. On PO lasix 40mg bid. #Hypertension: on carvedilol. #Class III obesity: complicates acute care, expected recovery and prognosis DVT prophylaxis: already on eliquis. Disposition: for DC today per general surgery Charges/Coding Visit Charges Inpatient E&M: 19359 Subs Hosp L2
[2024-11-15 11:05] LABS: Anion Gap 7 (5-15); BUN 22 mg/dL (4-19); BUN/Creat Ratio 18.6 RATIO (10-20); Carbon Dioxide 30.1 mmol/L (21.0-32.0); Chloride 100 mmol/L (98-108); Creatinine, Serum 1.17 mg/dL (0.70-1.20); EST Glomerular Filtration Rate 51 (>60); Estimated Creatinine Clearance 57.34 ml/min (50-250); Glucose 159 mg/dL (70-99); Sodium Level 137 mmol/L (133-145)
[2024-11-15 16:11] LABS: Bedside Glucose 185 mg/dL (74-106)
[2024-11-15 17:45] VITALS: BP 118/60; PULSE 74; RESP 18; TEMP 37; O2SAT 99
--- NOTE | 2024-11-18 09:50 | PCM.DC.SUM ---
Providers Date of Admission: 10/23/24 Date of Discharge: 11/15/24 Primary Care Physician: Dr. 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 Routine Comment: Reason for Consult:: right abdomen 11/01/24 10:28 Consult: Cardiology Routine Consulting Provider: Ronald Stone Reason for Consult: afib rvr EMERGENT Consult: No MD Notified: Yes Date Notified: 11/01/24 Time Notified: 10:29 Method of Notification: Text 11/14/24 01:57 Consult: Cardiology Routine Consulting Provider: Ed Yan Reason for Consult: bradycardia, pause on telemetry EMERGENT Consult: No MD Notified: Yes Date Notified: 11/14/24 Time Notified: 01:57 Method of Notification: Verbal Comments:: reconsulted per request Reason For Visit: RECURRENT INCISIONAL HERNIA/SBO Diagnosis Discharge Diagnosis (1) S/P exploratory laparotomy: Status: Acute Code(s): Z98.890 - Other specified postprocedural states Plan: Removal of previously placed mesh, small bowel resection and anastomosis, 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 IV antibiotics per ID Appreciate hospitalist and cardiology assistance with new A-fib and medical management (2) S/P repair of ventral hernia: Status: Acute Code(s): Z98.890 - Other specified postprocedural states; Z87.19 - Personal history of other diseases of the digestive system (3) Junctional bradycardia: Status: Acute Code(s): R00.1 - Bradycardia, unspecified (4) Atrial fibrillation: Status: Chronic Code(s): I48.91 - Unspecified atrial fibrillation Qualifiers: Atrial fibrillation type: unspecified Qualified Code(s): I48.91 - Unspecified atrial fibrillation Plan: Eliquis currently held due to second surgery and dressing changes and anemia status post 1 unit packed red blood cells. (5) History of diabetes mellitus: Status: Acute Code(s): Z86.39 - Personal history of other endocrine, nutritional and metabolic disease Medications at Discharge Home Medications omeprazole 20 mg capsule,delayed release 20 mg PO DAILY GERd 05/29/14 amlodipine 10 mg tablet (Norvasc) 10 mg PO QHS HTN 10/04/16 apixaban 5 mg tablet (Eliquis) 5 mg PO BID blood thinner 10/04/16 Held on 10/24/24. Instructions: Resume on 10/26/24. atorvastatin 80 mg tablet 80 mg PO QHS Cholesterol 10/25/16 lisinopril 40 mg tablet 40 mg PO DAILY HTN 10/25/16 pioglitazone 15 mg tablet 15 mg PO DAILY DM #30 tabs 10/09/22 gabapentin 600 mg tablet 600 mg PO BID Nerve Pain 01/01/24 multivitamin with folic acid 400 mcg tablet (Daily-Levon (with folic acid)) 1 tab PO DAILY Supplement 05/14/24 carvedilol 25 mg tablet 25 mg PO BID BP #60 tabs 05/19/24 dapagliflozin propanediol 10 mg tablet (Farxiga) 10 mg PO DAILY diabetes #30 tabs 06/27/24 insulin glargine 100 unit/mL (3 mL) subcutaneous pen (Lantus Solostar U-100 Insulin) 15 unit (0.15 mL) subcut BIDCM DM #5 pens 06/27/24 sennosides 8.6 mg-docusate sodium 50 mg tablet (Stimulant Laxative Plus) 1 tab PO BID #60 tabs 06/27/24 benzonatate 200 mg capsule 200 mg PO TID PRN cough 10/23/24 cholecalciferol (vitamin D3) 50 mcg (2,000 unit) capsule 50 mcg PO DAILY 10/23/24 dulaglutide 4.5 mg/0.5 mL subcutaneous pen injector (Trulicity) 4.5 mg subcut QWEEK 10/23/24 glipizide 10 mg tablet 10 mg PO BID 10/23/24 metformin 500 mg tablet 500 mg PO BID 10/23/24 naproxen 500 mg tablet 500 mg PO BID 10/23/24 nystatin 100,000 unit/gram topical powder (Nyamyc) 1 applic topical BID 10/23/24 oxycodone 5 mg capsule 5 mg PO Q6H PRN pain 3 days #10 caps 10/24/24 cefepime 2 gram/50 mL in dextrose 5 % intravenous piggyback 2 g IV Q8H 10 days 11/12/24 metronidazole 500 mg/100 mL in sodium chlor(iso) intravenous piggyback 500 mg IV Q8 10 days #3,000 mL 11/12/24 micafungin 100 mg intravenous solution 100 mg IV Q24 10 days #10 ea 11/12/24 vancomycin 1 gram/200 mL in dextrose 5 % intravenous piggyback 1,000 mg IV Q24H 10 days #2,000 mL 11/12/24 Hospital Course Operations - (Ventral hernia repair with mesh 10/24/2024, ex lap with removal of mesh resection of small bowel 11/04/2024) Procedures 2-D Echocardiogram (11/01/2024) Summary of Care Provided Minutes Spent on Discharge: 15 Hospital Course: Patient initially presented to the ER due to recurrent hernia and small bowel obstruction. Patient underwent ventral hernia repair with mesh the following day. Patient was found to have issues with hypoxia and hypoglycemia initially postop and then found to have a postop wound infection. Patient was placed on IV antibiotics and ID was consulted. 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 Patient was taken back to the OR 11/01/2024 for ex lap, removal of mesh, small bowel resection and anastomosis. Postoperatively patient was on IV antibiotics and had wound changes with Dakin's and wet-to-dry's and was able to have a wound VAC placed once the infection was cleared. Patient was sent home on metronidazole, cefepime, vancomycin, micafungin IV. Patient's Eliquis was held since right before the exploratory laparotomy due to wound changes. Patient hemoglobin did drop to 6.9 did get 1 units packed red blood cells but appropriately rise after 7.2 to 8.3. Hemoglobin on day of discharge was 8.9 Towards end of hospitalization patient was noted to have an 18-second cardiac pause and she also had new onset A-fib during the hospitalization which she was started on Coreg which dose was decreased but then it was discontinued after the cardiac pause?cardiology was seeing the patient. Weight / BMI Weight Weight: 244 lb 15.995 oz Body Mass Index (BMI) 39.5 ABG / Lab / Microbiology Data 11/15/24 06:23 11/15/24 06:23 Microbiology: Microbiology 11/10/24 08:00 Wound - Abdominal Gram Stain - Final 11/10/24 08:00 Wound - Abdominal Wound Culture - Final Yeast, not Marguerite albicans 11/10/24 08:00 Wound - Abdominal Anaerobic Culture - Final No anaerobic bacteria isolated. 11/04/24 Unknown Wound Abcess - Other Gram Stain - Final 11/04/24 Unknown Wound Abcess - Other Wound Culture - Final Yeast, not Marguerite albicans Pseudomonas aeruginosa 11/04/24 Unknown Wound Abcess - Other Anaerobic Culture - Final No anaerobic bacteria isolated. 11/04/24 Unknown Implant - Other Gram Stain - Final 11/04/24 Unknown Implant - Other Wound Culture - Final Yeast, not Marguerite albicans Pseudomonas aeruginosa 11/04/24 Unknown Implant - Other Anaerobic Culture - Final No anaerobic bacteria isolated. 10/30/24 10:46 Aspirate - Abdominal Gram Stain - Final 10/30/24 10:46 Aspirate - Abdominal Wound Culture - Final Presumptive C albicans Enterococcus faecalis 10/30/24 10:46 Aspirate - Abdominal Anaerobic Culture - Final No anaerobic bacteria isolated. 10/28/24 09:05 Wound Abcess - Abdominal Gram Stain - Final 10/28/24 09:05 Wound Abcess - Abdominal Wound Culture - Final Escherichia coli Presumptive C albicans 10/28/24 09:05 Wound Abcess - Abdominal Anaerobic Culture - Final No anaerobic bacteria isolated. 10/26/24 12:42 Blood Culture (Wb) - Left Hand Blood Culture - Final No growth in 5 days. 10/26/24 11:55 Blood Culture (Wb) - Other Blood Culture - Final No growth in 5 days. 10/25/24 06:05 Blood Culture (Wb) - Anticubital Left Blood Culture - Final Staphylococcus epidermidis 10/25/24 06:00 Blood Culture (Wb) - Anticubital Right Bacteria Detection (PCR) - Final Staphylococcus epidermidis mecA Resistance Marker 10/25/24 06:00 Blood Culture (Wb) - Anticubital Right Blood Culture - Final Gram positive organism D/C Instructions Discharge Diet: Light diet - advance as tolerated May shower in (days): 2 (Keep pressure dressing in place for 2 days then okay to remove the bulky dressing, incision will have Steri-Strips over the top leave in place unless they do not fall off in 10 days then okay to remove.) Additional Activity Instructions: - Call your doctor if your incision/area has: Continuous Slow Oozing, Sudden Increased Bleeding, Increased Pain/ Swelling, Increased Redness, Foul Smelling Discharge and Swelling at the incision site Call your doctor if you observe: Fever of 101 or Higher Cleanse incision/area with: Do not get Incision Wet (for 5 days) Additional Dressing/Incision Instructions: Wound VAC to midline. DC O2, CPAP, BIPAP Needs Home O2 Discharge instructions: Yes Type of respiratory needs?: Oxygen Oxygen frequency: Continuous Continuous oxygen liters per minute: 3 DC home with Oxygen: Yes Home O2 MD Review: I have reviewed the oxygen testing, and the patient qualifies for home oxygen equipment and portability. The patient is mobile in the home and the community. Please Follow Up With: An Shah MD When: Call the office for a follow-up appointment 1 week; after 5 PM and on the weekends call [phone] with any concerns. Meaningful Use Info Meaningful Use Meaningful Use Diagnoses (Choose all that apply): None applicable Ischemic Stroke Statin Dosing Therapy Reference: STATIN DOSE THERAPY REFERENCE: * Patients > 75 years receive moderate or high dose statin therapy. * Patients 75 years or YOUNGER should receive HIGH intensity statin dose unless contraindicated. You will be required to document reason for non-treatment if statin daily dose does not meet guidelines. HIGH DOSE STATIN THERAPY DAILY Atorvastatin > than or = to 40 mg Rosuvastatin > than or = to 20 mg Amlodipine + Atorvastatin > than or = to 2.5/40 mg Ezetimibe + Simvastatin 10/80 mg Simvastatin 80mg Discharge Plan Admission Admit Date/Time: 10/23/24 13:44 Primary Reason for Your Visit: Ventral hernia Attending Provider: An Shah Primary Care Provider: Dennis Pelayo Consulting Providers: Bobo Aguilar; Virginia Guerrero; Benja Hernandez; Ronald Stone; Sharyn Viveros; Ed Yan Discharge Orders/Prescriptions Prescriptions: New oxycodone 5 mg capsule 5 mg PO Q6H PRN (Reason: pain) 3 Days Qty: 10 0RF cefepime in dextrose 5 % 2 gram/50 mL piggyback 2 g IV Q8H 10 Days Rx Instructions: stop date 11/22/24. Dx: intra-abd abscess. Weekly bmp, cbc, vanc trough, and LFT. Fax to [phone]. metronidazole in NaCl (iso-os) 500 mg/100 mL Piggyback 500 mg IV Q8 10 Days Qty: 3000 0RF Rx Instructions: stop date 11/22/24. Dx: intra-abd abscess. Weekly bmp, cbc, vanc trough, and LFT. Fax to [phone]. vancomycin in dextrose 5 % 1 gram/200 mL Piggyback 1,000 mg IV Q24H 10 Days Qty: 2000 0RF Rx Instructions: stop date 11/22/24. Dx: intra-abd abscess. Weekly bmp, cbc, vanc trough, and LFT. Fax to [phone]. micafungin 100 mg Recon Soln 100 mg IV Q24 10 Days Qty: 10 0RF Rx Instructions: stop date 11/22/24. Dx: intra-abd abscess. Weekly bmp, cbc, vanc trough, and LFT. Fax to [phone]. Continued gabapentin 600 mg tablet 600 mg PO BID omeprazole 20 MG capsule 20 mg PO DAILY amlodipine [Norvasc] 10 MG tablet 10 mg PO QHS atorvastatin 80 MG tablet 80 mg PO QHS 0RF lisinopril 40 MG tablet 40 mg PO DAILY 0RF sennosides-docusate sodium [Stimulant Laxative Plus] 8.6-50 mg Tablet 1 tab PO BID Qty: 60 0RF dapagliflozin propanediol [Farxiga] 10 mg tablet 10 mg PO DAILY Qty: 30 0RF insulin glargine [Lantus Solostar U-100 Insulin] 100 unit/mL (3 mL) insulin pen 15 unit subcut BIDCM Qty: 5 0RF multivitamin with folic acid [Daily-Levon (with folic acid)] 400 mcg tablet 1 tab PO DAILY carvedilol 25 mg tablet 25 mg PO BID Qty: 60 0RF Rx Instructions: must administer with a meal/food naproxen 500 mg tablet 500 mg PO BID benzonatate 200 mg capsule 200 mg PO TID PRN (Reason: cough) metformin 500 mg tablet 500 mg PO BID glipizide 10 mg tablet 10 mg PO BID cholecalciferol (vitamin D3) 50 mcg (2,000 unit) capsule 50 mcg PO DAILY Trulicity 4.5 mg/0.5 mL pen injector 4.5 mg SUBCUT QWEEK Patient Comments: UNSURE WHICH DAY OF WEEK. nystatin [Nyamyc] 100,000 unit/gram powder 1 applic topical BID Rx Instructions: USE ON AREA BETWEEN LEGS TWICE DAILY. pioglitazone 15 mg tablet 15 mg PO DAILY Qty: 30 3RF Held Eliquis 5 MG tablet 5 mg PO BID Hold Instructions: Resume on 10/26/24. Referrals / Follow Up: Dennis Pelayo DO [Primary Care Provider] - Disposition Disposition (needs filled in before D/C Order can be placed): [facility]
[2024-11-26 14:39] LABS: Pathologist Review Reviewed
== END 2024-11-15 17:48 | disposition skilled nursing facility (03) | DRG 329 ==
LOC: ED 14:55 → MS3 15:27 → PCU 11-01 02:58
PROVIDERS: Family Medicine; Internal Medicine; Internal Medicine Cardiovascular Disease; Internal Medicine Infectious Disease; Physician Assistant; Student in an Organized Health Care Education/Training Program; Surgery; Admitting Provider Surgery; Emergency Provider Surgery; PCP Family Medicine; Visit Provider Surgery
PROC: 0WQF4ZZ Repair Abdominal Wall, Percutaneous Endoscopic Approach (ICD-10-PCS; principal; 2024-10-24 13:35)
PROC: 0DB80ZZ Excision of Small Intestine, Open Approach (ICD-10-PCS; CPT 49000; principal; 2024-11-04 13:50)
DX: K43.0 Incisional hernia with obstruction, without gangrene (principal); I50.31 Acute diastolic (congestive) heart failure; K63.1 Perforation of intestine (nontraumatic); G93.41 Metabolic encephalopathy; K63.2 Fistula of intestine; Z68.41 Body mass index [BMI] 40.0-44.9, adult; D62 Acute posthemorrhagic anemia; N17.9 Acute kidney failure, unspecified; T81.41XA Infection following a procedure, superficial incisional surgical site, initial encounter; R78.81 Bacteremia; E11.40 Type 2 diabetes mellitus with diabetic neuropathy, unspecified; I11.0 Hypertensive heart disease with heart failure; I48.0 Paroxysmal atrial fibrillation; E11.649 Type 2 diabetes mellitus with hypoglycemia without coma; E11.65 Type 2 diabetes mellitus with hyperglycemia; E78.5 Hyperlipidemia, unspecified; Z79.4 Long term (current) use of insulin; K21.9 Gastro-esophageal reflux disease without esophagitis; I95.9 Hypotension, unspecified; E87.6 Hypokalemia; E83.39 Other disorders of phosphorus metabolism; E83.42 Hypomagnesemia; X58.XXXA Exposure to other specified factors, initial encounter; E66.813 Obesity, class 3; B96.5 Pseudomonas (aeruginosa) (mallei) (pseudomallei) as the cause of diseases classified elsewhere; B95.62 Methicillin resistant Staphylococcus aureus infection as the cause of diseases classified elsewhere; B96.20 Unspecified Escherichia coli [E. coli] as the cause of diseases classified elsewhere; B96.89 Other specified bacterial agents as the cause of diseases classified elsewhere; K66.0 Peritoneal adhesions (postprocedural) (postinfection); R09.02 Hypoxemia; Z90.49 Acquired absence of other specified parts of digestive tract; Z79.01 Long term (current) use of anticoagulants; Z79.84 Long term (current) use of oral hypoglycemic drugs; Z79.85 Long-term (current) use of injectable non-insulin antidiabetic drugs; Z79.899 Other long term (current) drug therapy; Z86.73 Personal history of transient ischemic attack (TIA), and cerebral infarction without residual deficits; Z87.891 Personal history of nicotine dependence
CPT/HCPCS: 36415; 36600; 71045; 71046; 71275; 74018; 74177; 76770; 80048; 80053; 80202; 81001; 82570; 82803; 82947; 82962; 83036; 83605; 83690; 83735; 83880; 84100; 84132; 84443; 84540; 85014; 85018; 85025; 85610; 85730; 86850; 86900; 86901; 87040; 87070; 87075; 87077; 87149; 87176; 87184; 87186; 87205; 88302; 88307; 92507; 92526; 92610; 93005; 93306; 94002; 94003; 94640; 94762; 97116; 97162; 97166; 97530; 97535; 97803; 99285; C1781; J2997; P9016; P9047; Q9957; Q9967; A4216; C8929; J1938; J2405

== ENCOUNTER 2024-11-18 14:18 | Inpatient (IN) | payer MEDICARE, MEDICAID, SELFPAY ==
[2024-11-18] VITALS (19 sets, daily range): BP systolic 76–138; BP diastolic 38–98; PULSE 68–81; RESP 11–24; TEMP 35.9–36.2; O2SAT 87–100; BMI 44.1
--- NOTE | 2024-11-18 14:45 | CT_ITS ---
PROCEDURE: ABDOMEN/PELVIS WITHOUT CONT 11/18/2024 REASON FOR EXAM: ABDOMINAL PAIN TECHNIQUE: Abdomen and pelvis CT without intravenous contrast. Noncontrast technique limits evaluation of the abdominal and pelvic viscera. Coronal and Sagittal reconstruction series were provided. One or more dose reduction techniques were used (e.g., Automated exposure control, adjustment of the mA and/or kV according to patient size, use of iterative reconstruction technique). COMPARISON: 11/03/2024 FINDINGS: Small right pleural effusion. Complete consolidation of the right lower lobe. Opacification of the right lower lobe bronchus. Coronary artery calcifications. Unenhanced liver, spleen, and adrenal glands are intact. Gallbladder is contracted with a small amount of pericholecystic fluid and mild wall thickening. No significant biliary ductal dilation. No renal calculi or hydronephrosis. Stable right renal cysts. Urinary bladder is intact. Uterus is absent. Postsurgical changes of the rectosigmoid junction. Mild fecal retention. New ovoid hyperdensity within the right lower quadrant mesentery measuring 5.0 x 8.0 x 4.0 cm (AP, TV and CC dimensions) with mild surrounding mesenteric haziness. Postsurgical change of the adjacent small bowel. No bowel obstruction. No pelvic free fluid. No free air. Calcified nonaneurysmal abdominal aorta. No bulky adenopathy. Anasarca. Large soft tissue defect along the right lower anterior abdominal wall measuring 9.5 x 3.0 x 6.4 cm. Generalized muscular atrophy. No acute osseous abnormality. Degenerative changes of the spine. CT/Abdomen/Pelvis without Cont IMPRESSION: 1. Status post bowel resection with ovoid mesenteric hematoma in the right lowe r quadrant as detailed above. Mild surrounding mesenteric edema. No significant layering hemoperitoneum or free air. No obst ruction. 2. Large defect of the anterior abdominal wall which may be postoperative. Ple ase correlate. 3. Small right pleural effusion with complete right lower lobe consolidation an d opacification of the corresponding right lower lobe bronchus. [facility]
--- NOTE | 2024-11-18 14:50 | CT_ITS ---
PROCEDURE: BRAIN/HEAD WITHOUT CONTRAST 11/18/2024 REASON FOR EXAM: AMS TECHNIQUE: Head CT without intravenous contrast. Coronal and Sagittal reconstruction series were provided. One or more dose reduction techniques were used (e.g., Automated exposure control, adjustment of the mA and/or kV according to patient size, use of iterative reconstruction technique. COMPARISON: None FINDINGS: No evidence of acute intracranial hemorrhage, midline shift or mass effect. No definite CT evidence of acute territorial cortical infarction. No hydrocephalus. Mild generalized cerebral atrophy and chronic small-vessel ischemic changes. Chronic lacunar infarcts in the bilateral caudate heads. Calvarium is intact. Paranasal sinuses and mastoid air cells are relatively clear. CT/Brain/Head without Contrast IMPRESSION: 1. No acute intracranial abnormality. 2. Mild atrophy and chronic ischemic changes as above. Reading Location: [facility]
[2024-11-18] MEDS: 0.9% Normal Saline (1000mL) 1,000 ML 1000 ML IV ×2 (15:04→17:34)
--- NOTE | 2024-11-18 15:09 | EX.ED.DYSGE1 ---
HPI History of Present Illness Chief Complaint: Neuro S/Sx Informant: EMS and SNF Narrative Narrative: 68-year-old female was transferred here from SNF for reported slurred speech. Patient was discharged from the hospital on Sunday and it was reported the patient has had slurred speech since then. A patient case coordinator reported to the SNF today that this is not the patient's normal self so they transferred her to the emergency. 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 Patient cannot really provide history or tell me how she is feeling. There are some interpretable words that I really cannot get her to say much or say it clearly. She is on multiple antibiotics through PICC line including vancomycin and cefepime as well as antifungal. [facility] Medical History Hernia, ventral History of atrial fibrillation Abdominal pain Neuropathic pain Essential (primary) hypertension Cognitive dysfunction ESBL (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 coli infection Wears glasses Former smoker Obesity Ambulates with cane Stroke/cerebrovascular accident Difficulty in walking Poor historian Recurrent incisional hernia with incarceration Incarcerated ventral hernia Obstructive sleep apnea Atrial fibrillation Intraventricular hemorrhage Embolic stroke GERD (gastroesophageal reflux disease) Obesity (BMI 30-39.9) Hyperlipidemia Hypertension Diabetes mellitus Home Medications ?Medication ?Instructions ?Recorded ?Last Taken ?Type amlodipine 10 mg tablet (Norvasc) 10 mg PO QHS HTN 10/04/16 11/17/24 History apixaban 5 mg tablet (Eliquis) 5 mg PO BID blood thinner 10/04/16 11/03/24 History Held on 10/24/24. Instructions: Resume on 10/26/24. atorvastatin 80 mg tablet 80 mg PO QHS Cholesterol 10/25/16 11/17/24 Rx lisinopril 40 mg tablet 40 mg PO DAILY HTN 10/25/16 11/18/24 Rx pioglitazone 15 mg tablet 15 mg PO DAILY DM #30 tabs 10/09/22 11/18/24 Rx gabapentin 600 mg tablet 600 mg PO BID Nerve Pain 01/01/24 11/18/24 History multivitamin with folic acid 400 1 tab PO DAILY Supplement 05/14/24 11/18/24 History mcg tablet (Daily-Levon (with folic acid)) carvedilol 25 mg tablet 25 mg PO BID BP #60 tabs 05/19/24 11/18/24 Rx dapagliflozin propanediol 10 mg 10 mg PO DAILY diabetes #30 tabs 06/27/24 11/18/24 Rx tablet (Farxiga) insulin glargine 100 unit/mL (3 15 unit (0.15 mL) subcut BIDCM DM 06/27/24 11/18/24 Rx mL) subcutaneous pen (Lantus #5 pens Solostar U-100 Insulin) sennosides 8.6 mg-docusate sodium 1 tab PO BID #60 tabs 06/27/24 11/18/24 Rx 50 mg tablet (Stimulant Laxative Plus) benzonatate 200 mg capsule 200 mg PO TID PRN cough 10/23/24 Unknown History cholecalciferol (vitamin D3) 50 50 mcg PO DAILY 10/23/24 11/18/24 History mcg (2,000 unit) capsule dulaglutide 4.5 mg/0.5 mL 4.5 mg subcut QWEEK 10/23/24 11/17/24 History subcutaneous pen injector (Trulicity) glipizide 10 mg tablet 10 mg PO BID 10/23/24 11/18/24 History metformin 500 mg tablet 500 mg PO BID 10/23/24 11/18/24 History naproxen 500 mg tablet 500 mg PO BID 10/23/24 11/18/24 History oxycodone 5 mg capsule 5 mg PO Q6H PRN pain 3 days #10 10/24/24 Unknown Rx caps cefepime 2 gram/50 mL in dextrose 2 g IV Q8H 10 days 11/12/24 11/18/24 Rx 5 % intravenous piggyback metronidazole 500 mg/100 mL in 500 mg IV Q8 10 days #3,000 mL 11/12/24 11/18/24 Rx sodium chlor(iso) intravenous piggyback micafungin 100 mg intravenous 100 mg IV Q24 10 days #10 ea 11/12/24 11/17/24 Rx solution vancomycin 1 gram/200 mL in 1,000 mg IV Q24H 10 days #2,000 mL 11/12/24 11/18/24 Rx dextrose 5 % intravenous piggyback folic acid 400 mcg tablet 400 mcg PO DAILY 11/18/24 11/18/24 History nystatin 100,000 unit/gram topical 1 applic topical BID GROIN REDNESS 11/18/24 11/18/24 History ointment pantoprazole 20 mg tablet,delayed 20 mg PO DAILY 11/18/24 11/18/24 History release Allergy/AdvReac Type Severity Reaction Status Date / Time iodine Allergy Mild Itching Verified 11/18/24 14:22 Penicillins Allergy Mild Itching Verified 11/18/24 14:22 Family History Father CVA (cerebral vascular accident) Mother Diabetes Stomach cancer Other High cholesterol Hypertension Surgical History History of cholecystectomy Hx of colonoscopy Status post debridement History of hysterectomy S/P repair of ventral hernia Social History household members: none Smoking Status: Former smoker alcohol intake: never substance use type: does not use caffeine: Yes what type of physical activity do you participate in: walking frequency: daily ROS ROS ED Review of Systems ROS Unobtainable: due to mental status EXAM Physical Exam Const Vital Signs: 11/18/24 14:22 11/18/24 14:26 11/18/24 15:21 Temperature 96.7 F L 96.7 F L Temperature Source Temporal Oral Pulse Rate 71 71 75 Respiratory Rate 24 H 24 H 11 L Blood Pressure 90/45 L 90/45 L 138/52 H Blood Pressure Mean 60 60 80 Pulse Ox 87 100 100 Oxygen Delivery Method Room Air Nasal Cannula Nasal Cannula Oxygen Flow Rate (L/min) 4 2 11/18/24 16:00 11/18/24 17:00 11/18/24 17:54 Temperature 97 F L Temperature Source Pulse Rate 77 77 76 Respiratory Rate 15 14 14 Blood Pressure 118/98 H 131/59 H 123/55 H Blood Pressure Mean 104 83 77 Pulse Ox 94 100 Oxygen Delivery Method Room Air Oxygen Flow Rate (L/min) Positive well nourished and well developed General Appearance ED: well developed HEENT Reports normocephalic, head/scalp atraumatic and moist mucous membranes Eyes PERRL and EOMs intact bilaterally Eyes Narrative: Pupils are 3 mm to 2 mm bilaterally Neck no lymphadenopathy, supple and no JVD Resp normal respiratory effort Resp Narrative: Patient has a rhonchorous cough. She has shallow respirations. Cardio regular rate, regular rhythm and no murmurs GI non-tender GI Narrative: Abdomen is soft. There is a area of open skin on the right lower quadrant that has packing in place. The surrounding skin is not erythematous. Her normal active bowel sounds. Palpation: soft Back/Spine no CVA tenderness and normal ROM Extremity normal to inspection General Extremety ED: Negative for edema General Extremity: Negative for edema Neuro Neuro Narrative: Moves all extremities x 4 Sensorium / Orientation: lethargic Skin no rashes or lesions noted MDM MDM MDM Narrative Medical decision making narrative: Differential is very broad base but includes but not limited to volume overload congestive heart failure pneumonia intra-abdominal abscess medication induced altered mental status stroke electrolyte abnormalities renal dysfunction liver dysfunction sepsis Regular I spent a significant mount of time reviewing the patient's prolonged hospitalization course recently. Her white count returns at 12 hemoglobin 8.1 platelet count is 260. Lactic acid is elevated at 4.3 of questionable etiology. He did have a degree of hypoxia. She could be related to sepsis could be related to acute kidney injury which her creatinine today is substantially elevated 2.74. She is on oral hypoglycemics including metformin. Troponin is 77 and 71. EKG is nonischemic. Lipase 28. proBNP is 2797. My independent interpretation of the chest x-ray is right lower lobe atelectasis with small pleural effusion. CT of the brain showed no acute findings. CT of the abdomen pelvis was obtained read by radiology reviewed by myself as well as Dr. Shah from general surgery. Blood cultures were obtained. I do again note that she is on substantial antibiotics through a PICC line including vancomycin and cefepime as well as antifungals. Urinalysis shows no overt reaction. I do wonder what degree of volume overload plays in this patient with her lower extremity edema and acute kidney injury. I see that she was also on gabapentin and that may be causing some altered mental status with the acute kidney injury as well. Plan of care is admission to hospital. She remains afebrile and normotensive. History & Record Review Discussion w/independent historian: EMS personnel, Patient and Other (SNF Paperwork) Additional record(s) reviewed:: Prior inpatient record, Prior outpatient record, Prior ED visit and Prior labs Lab Data Attestation: I reviewed the patient's lab results. Labs: Laboratory Results - last 24 hr 11/18/24 11/18/24 11/18/24 14:35 16:40 17:30 WBC 12.0 H RBC 3.20 L Hgb 8.1 L Hct 27.2 L MCV 85.0 D MCH 25.3 L MCHC 29.8 L RDW Std Deviation 70.1 H RDW Coeff of Faby 22.8 H Plt Count 260 MPV 9.3 Immature Gran % (Auto) 0.900 Neut % (Auto) 79.4 H Lymph % (Auto) 9.6 L [place] % (Auto) 8.6 Eos % (Auto) 1.2 Baso % (Auto) 0.3 Absolute Neuts (auto) 9.5 H Absolute Lymphs (auto) 1.15 Nucleated RBC % 0 Polychromasia 1+ Anisocytosis 1+ PT 17.7 H INR 1.4 APTT 35.3 Sodium 138 Potassium 3.5 Chloride 101 Carbon Dioxide 25.8 Anion Gap 11 BUN 37 H Creatinine 2.74 H Estim Creat Clear Calc 26.06 L Est GFR (MDRD) Non-Af 18 L BUN/Creatinine Ratio 13.3 Glucose 180 H Lactic Acid 4.3 H* Calcium 9.5 Total Bilirubin 0.27 Direct Bilirubin 0.16 AST 60 H ALT 31 Alkaline Phosphatase 79 Troponin T High Sens 77 H* Troponin T Hi Sens 2 Hr 71 H* NT pro BNP II 2797 H Total Protein 5.4 L Albumin 1.9 L Globulin 3.6 Lipase 28 Urine Color Yellow Urine Clarity Sl Cloudy Urine pH 5.0 Ur Specific [place] 1.015 Urine Protein 30 H Urine Glucose (UA) 1000 H Urine Ketones 5 H Urine Occult Blood 250 H Urine Nitrite Negative Urine Bilirubin Negative Urine Urobilinogen Normal Ur Leukocyte Esterase 25 H Urine RBC 0-5 SEEN Urine WBC 0-5 SEEN Ur Squamous Epith Cells 0-5 SEEN Urine Bacteria 0 SEEN Hyaline Casts 0-5 SEEN Fine Granular Casts 0-5 SEEN Coarse Granular Casts 0-5 SEEN Urine Mucus 0 SEEN Radiography Diagnostic Testing: Clinical Impression(s) from Imaging Studies Abdomen/Pelvis CT 11/18/24 14:45 IMPRESSION: 1. Status post bowel resection with ovoid mesenteric hematoma in the right lower quadrant as detailed above. Mild surrounding mesenteric edema. No significant layering hemoperitoneum or free air. No obstruction. 2. Large defect of the anterior abdominal wall which may be postoperative. Please correlate. 3. Small right pleural effusion with complete right lower lobe consolidation and opacification of the corresponding right lower lobe bronchus. Reading Location: [facility] Brain CT 11/18/24 14:50 IMPRESSION: 1. No acute intracranial abnormality. 2. Mild atrophy and chronic ischemic changes as above. [facility] Chest X-Ray 11/18/24 15:35 IMPRESSION: Right lower lobe opacity which may relate to effusion with adjacent atelectasis/infiltrate. Reading Location: [facility] EKG Initial EKG: Attestation: I personally reviewed and interpreted this EKG as follows: Comments: Sinus rhythm at a ventricular rate of 73 bpm. Management Discussion w/another healthcare provider: Hospitalist (Dr Guerrero) and Vice Chancellor (Dr Shah (saw patient in ED)) Critical Care Time Critical Care Time: Yes Critical care time (excluding procedures): 30-74 minutes (33 minutes), Including time spent:, Discussing w/Patient &/or Family/Computer Numerical Control Machinist, Discussing w/Consultants, Arranging Admission or Transfer and Performing Direct Patient Care at Bedside Discharge Plan Dx/Rx/DC Orders Clinical Impression: Acute hypotension, Altered mental status, Open abdominal wall wound Disposition Disposition: [facility] Discharge Date/Time: 11/18/24 18:45
[2024-11-18 15:18] LABS: Absolute Lymphocyte Count 1.15 X10^3/uL (0.83-4.51); Absolute Neutrophil Count 9.5 X10^3/uL (2.0-7.7); Basophil# 0.03 X10^3/uL; Basophil% 0.3 % (0-1); Eosinophil# 0.14 X10^3/uL; Eosinophils% 1.2 % (0-5); Hematocrit 27.2 % (37-47); Hemoglobin 8.1 g/dL (12.0-15.0); Lymphocyte # 1.15 X10^3/ul (0.83-4.51); Lymphocyte % 9.6 % (19-41); Mean Corp Hgb Conc 29.8 g/dL (32-36); Mean Corpuscular Hgb 25.3 pg (27.0-32.0); Mean Platelet Vol. 9.3 fl (6.2-12.0); Monocyte# 1.03 X10^3/uL; Monocyte% 8.6 % (0-10); NRBC Flagged by Analyzer 0 % (0-5); Neutrophil % 79.4 % (47-70); POSITIVE MORPHOLOGY YES; Platelet Count 260 K/mm3 (150-450); RBC Distribution Width CV 22.8 % (11.6-14.6); RBC Distribution Width SD 70.1 fl (35.1-43.9)
[2024-11-18 15:29] LABS: Differential Indicated SCAN CRITERIA MET
[2024-11-18 15:31] LABS: International Normalized Ratio 1.4; Prothrombin Time (Protime)PT. 17.7 SECONDS (11.7-14.9)
[2024-11-18 15:32] LABS: Partial Thromboplast Time 35.3 Seconds (24.1-36.2)
--- NOTE | 2024-11-18 15:35 | RAD_ITS ---
PROCEDURE: CHEST 1 VIEW (PORTABLE) 11/18/2024 REASON FOR EXAM: COUGH TECHNIQUE: Frontal view of the chest. COMPARISON: 11/02/2024 FINDINGS: Mild cardiomegaly. Focal opacity at the right lung base. Left lung is relatively clear. No sizable pneumothorax. Right PICC line catheter terminating in the SVC. RAD/Chest 1 View (Portable) IMPRESSION: Right lower lobe opacity which may relate to effusion with adjacent atelectasis /infiltrate. Reading Location: [facility]
[2024-11-18 16:03] LABS: Lipase 28 U/L (13-75)
[2024-11-18 16:10] LABS: AST(SGOT) 60 U/L (<=31); Alanine Aminotransfer ALT/SGPT 31 U/L (<=34); Albumin, Serum 1.9 g/dL (3.4-4.8); Alkaline Phosphatase 79 U/L (35-104); Anion Gap 11 (5-15); BUN 37 mg/dL (4-19); BUN/Creat Ratio 13.3 RATIO (10-20); Bilirubin, Direct 0.16 mg/dL (0.00-0.30); Calcium,Total 9.5 mg/dL (7.6-11.0); Carbon Dioxide 25.8 mmol/L (21.0-32.0); Chloride 101 mmol/L (98-108); Creatinine, Serum 2.74 mg/dL (0.70-1.20); EST Glomerular Filtration Rate 18 (>60); Estimated Creatinine Clearance 26.06 ml/min (50-250); Globulin 3.6 g/dL (2.2-4.2); Glucose 180 mg/dL (70-99); Potassium 3.5 mmol/L (3.3-5.1); Protein, Total 5.4 g/dL (5.9-8.4); Sodium Level 138 mmol/L (133-145); Total Bilirubin 0.27 mg/dL (0.00-1.30)
[2024-11-18 16:21] LABS: Lactic Acid 4.3 mmol/L (0.0-2.0)
[2024-11-18 16:30] LABS: Troponin T High Sensitivity 77 ng/L (<=14)
[2024-11-18 16:33] LABS: Anisocytosis 1+; Polychromasia 1+
[2024-11-18 16:47] LABS: Bacteria 0 SEEN /hpf (None Seen); Mucous, Urine 0 SEEN /hpf (<or=2+)
[2024-11-18 16:49] LABS: Glucose, Dipstick 1000 mg/dl (Normal); Ketone-Dipstick 5 mg/dl (Negative); Leukocyte Esterase-Dipstick 25 /ul (Negative); Nitrite-Dipstick Negative (Negative); Occult Blood-Urine 250 /ul (Negative); Protein-Dipstick 30 mg/dl (Negative); Specific Gravity, Urine 1.015 (1.002-1.030); Urine Bilirubin Dipstick Negative (Negative); Urine Urobilinogen Normal (Normal)
[2024-11-18 16:51] LABS: Color, Urine Yellow (Yellow); Urine Clarity Sl Cloudy (Clear)
[2024-11-18 16:59] LABS: Red Blood Cells-Urine 0-5 SEEN /hpf (0-5); White Blood Cells 0-5 SEEN /hpf (0-5)
[2024-11-18 17:00] LABS: Squamous Epithelial Cells - UA 0-5 SEEN /hpf (5-10)
[2024-11-18 17:01] LABS: Hyaline Cast 0-5 SEEN /lpf (0-5)
[2024-11-18 17:02] LABS: Coarse Granular Cast 0-5 SEEN /lpf (0-5 /lpf); Fine Granular Cast- Urine 0-5 SEEN /lpf (0-5)
[2024-11-18 17:13] LABS: Pro- Brain NATRIURETIC PEPTIDE 2797 pg/mL (<=900)
--- NOTE | 2024-11-18 17:56 | PCM.HP.STD ---
HPI - General General Date of Admission: 11/18/24 Date of Service: 11/18/24 Chief Complaint: Altered mental status HPI Narrative ZOIE DE LA PAZ, is a 68-year-old female history of diabetes, paroxysmal atrial fibrillation, morbid obesity, GERD, hypertension due to slurred speech. Patient recently had prolonged hospitalization due to recurrent hernia and small bowel obstruction. She was admitted 10/24 and underwent ventral hernia repair with mesh the following day, had postoperative hypoxia and hypoglycemia as well as postop wound infection was placed on IV antibiotics and ID was consulted. There was concern for small bowel fistula so patient was taken back to the OR 11/01/2024 for an ex lap with removal of mesh and small bowel resection anastomoses. Improved and was discharged to senior living facility 11/15/2024 on metronidazole, cefepime, Vanco, micafungin. Patient now from senior living facility 11/18/2024 due to reported slurred speech. There was question if it was present when she got there on Sunday with unclear baseline and today the case operator reported to SNF that this was not her baseline so she was sent to the ED. Patient afebrile on arrival with heart rate of 71 blood pressure 90/45, respiratory rate of 24 with pulse ox 87% on room air. Patient with white blood cell count of 12, lactic acid of 4.3 with a troponin of 77. New increase in creatinine to 2.74 up from 1.17 on 11/15. UA did not appear infectious. CT of the abdomen obtained which showed ovoid mesenteric hematoma in right lower quadrant with mild surrounding mesenteric edema and large postoperative anterior abdominal wall defect with small right pleural effusion and right lower lobe consolidation. CT head no acute process. Patient given IV fluids and surgery was contacted to evaluate patient in the ED, reportedly is recommended given hematoma the patient not be placed on anticoagulation. Hospitalist contacted for admission. Patient evaluated at bedside, would wake up and mostly would repeat that she was hungry but did not really purposefully participate in exam other than that, no family available at bedside so no additional history other than the above able to be obtained [facility] Medical History Hernia, ventral History of atrial fibrillation Abdominal pain Neuropathic pain Essential (primary) hypertension Cognitive dysfunction ESBL (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 coli infection Wears glasses Former smoker Obesity Ambulates with cane Stroke/cerebrovascular accident Difficulty in walking Poor historian Recurrent incisional hernia with incarceration Incarcerated ventral hernia Obstructive sleep apnea Atrial fibrillation Intraventricular hemorrhage Embolic stroke GERD (gastroesophageal reflux disease) Obesity (BMI 30-39.9) Hyperlipidemia Hypertension Diabetes mellitus Home Medications ?Medication ?Instructions ?Recorded ?Last Taken ?Type amlodipine 10 mg tablet (Norvasc) 10 mg PO QHS HTN 10/04/16 11/17/24 History apixaban 5 mg tablet (Eliquis) 5 mg PO BID blood thinner 10/04/16 11/03/24 History Held on 10/24/24. Instructions: Resume on 10/26/24. atorvastatin 80 mg tablet 80 mg PO QHS Cholesterol 10/25/16 11/17/24 Rx lisinopril 40 mg tablet 40 mg PO DAILY HTN 10/25/16 11/18/24 Rx pioglitazone 15 mg tablet 15 mg PO DAILY DM #30 tabs 10/09/22 11/18/24 Rx gabapentin 600 mg tablet 600 mg PO BID Nerve Pain 01/01/24 11/18/24 History multivitamin with folic acid 400 1 tab PO DAILY Supplement 05/14/24 11/18/24 History mcg tablet (Daily-Levon (with folic acid)) carvedilol 25 mg tablet 25 mg PO BID BP #60 tabs 05/19/24 11/18/24 Rx dapagliflozin propanediol 10 mg 10 mg PO DAILY diabetes #30 tabs 06/27/24 11/18/24 Rx tablet (Farxiga) insulin glargine 100 unit/mL (3 15 unit (0.15 mL) subcut BIDCM DM 06/27/24 11/18/24 Rx mL) subcutaneous pen (Lantus #5 pens Solostar U-100 Insulin) sennosides 8.6 mg-docusate sodium 1 tab PO BID #60 tabs 06/27/24 11/18/24 Rx 50 mg tablet (Stimulant Laxative Plus) benzonatate 200 mg capsule 200 mg PO TID PRN cough 10/23/24 Unknown History cholecalciferol (vitamin D3) 50 50 mcg PO DAILY 10/23/24 11/18/24 History mcg (2,000 unit) capsule dulaglutide 4.5 mg/0.5 mL 4.5 mg subcut QWEEK 10/23/24 11/17/24 History subcutaneous pen injector (Trulicity) glipizide 10 mg tablet 10 mg PO BID 10/23/24 11/18/24 History metformin 500 mg tablet 500 mg PO BID 10/23/24 11/18/24 History naproxen 500 mg tablet 500 mg PO BID 10/23/24 11/18/24 History oxycodone 5 mg capsule 5 mg PO Q6H PRN pain 3 days #10 10/24/24 Unknown Rx caps cefepime 2 gram/50 mL in dextrose 2 g IV Q8H 10 days 11/12/24 11/18/24 Rx 5 % intravenous piggyback metronidazole 500 mg/100 mL in 500 mg IV Q8 10 days #3,000 mL 11/12/24 11/18/24 Rx sodium chlor(iso) intravenous piggyback micafungin 100 mg intravenous 100 mg IV Q24 10 days #10 ea 11/12/24 11/17/24 Rx solution vancomycin 1 gram/200 mL in 1,000 mg IV Q24H 10 days #2,000 mL 11/12/24 11/18/24 Rx dextrose 5 % intravenous piggyback folic acid 400 mcg tablet 400 mcg PO DAILY 11/18/24 11/18/24 History nystatin 100,000 unit/gram topical 1 applic topical BID GROIN REDNESS 11/18/24 11/18/24 History ointment pantoprazole 20 mg tablet,delayed 20 mg PO DAILY 11/18/24 11/18/24 History release Allergy/AdvReac Type Severity Reaction Status Date / Time iodine Allergy Mild Itching Verified 11/18/24 14:22 Penicillins Allergy Mild Itching Verified 11/18/24 14:22 Family History Father CVA (cerebral vascular accident) Mother Diabetes Stomach cancer Other High cholesterol Hypertension Surgical History History of cholecystectomy Hx of colonoscopy Status post debridement History of hysterectomy S/P repair of ventral hernia Social History household members: none Smoking Status: Former smoker alcohol intake: never substance use type: does not use caffeine: Yes what type of physical activity do you participate in: walking frequency: daily ROS ROS Narrative Unable to obtain secondary to patient's mental status Vital Signs Vital Signs Vital Signs: 11/18/24 14:22 11/18/24 14:26 11/18/24 15:21 Temperature 96.7 F L 96.7 F L Temperature Source Temporal Oral Pulse Rate 71 71 75 Respiratory Rate 24 H 24 H 11 L Blood Pressure 90/45 L 90/45 L 138/52 H Blood Pressure Mean 60 60 80 Pulse Ox 87 100 100 Oxygen Delivery Method Room Air Nasal Cannula Nasal Cannula Oxygen Flow Rate (L/min) 4 2 11/18/24 16:00 11/18/24 17:00 Temperature Temperature Source Pulse Rate 77 77 Respiratory Rate 15 14 Blood Pressure 118/98 H 131/59 H Blood Pressure Mean 104 83 Pulse Ox 94 Oxygen Delivery Method Room Air Oxygen Flow Rate (L/min) Weight Weight: 124 kg Body Mass Index (BMI) 44.1 Physical Exam Narrative General: Wakes up but has difficulty answering direct questions, repeats that she is tired HEENT: Atraumatic, normocephalic Eyes: Anicteric, normal conjunctiva, extraocular movements grossly intact Neck: Supple Respiratory: Coarse bilaterally Cardiovascular: Regular rate and rhythm GI: Soft, nontender, nondistended Extremities: 2+ bilateral lower extremity pitting edema Musculoskeletal: Moving all extremities Neuro: No overt focal neurological deficits however patient unable to participate in neuroexam purposefully Skin: No rashes appreciated Psych: Attempts to be cooperative but unable to do so due to mental status Results Lab / Micro Data 11/18/24 14:35 11/18/24 14:35 Labs: Laboratory Results - last 24 hr 11/18/24 14:35: WBC 12.0 H, RBC 3.20 L, Hgb 8.1 L, Hct 27.2 L, MCV 85.0 D, MCH 25.3 L, MCHC 29.8 L, RDW Std Deviation 70.1 H, RDW Coeff of Faby 22.8 H, Plt Count 260, MPV 9.3, Immature Gran % (Auto) 0.900, Neut % (Auto) 79.4 H, Lymph % (Auto) 9.6 L, [place] % (Auto) 8.6, Eos % (Auto) 1.2, Baso % (Auto) 0.3, Absolute Neuts (auto) 9.5 H, Absolute Lymphs (auto) 1.15, Nucleated RBC % 0, Polychromasia 1+, Anisocytosis 1+, PT 17.7 H, INR 1.4, APTT 35.3, Sodium 138, Potassium 3.5, Chloride 101, Carbon Dioxide 25.8, Anion Gap 11, BUN 37 H, Creatinine 2.74 H, Estim Creat Clear Calc 26.06 L, Est GFR (MDRD) Non-Af 18 L, BUN/Creatinine Ratio 13.3, Glucose 180 H, Lactic Acid 4.3 H*, Calcium 9.5, Total Bilirubin 0.27, Direct Bilirubin 0.16, AST 60 H, ALT 31, Alkaline Phosphatase 79, Troponin T High Sens 77 H*, NT pro BNP II 2797 H, Total Protein 5.4 L, Albumin 1.9 L, Globulin 3.6, Lipase 28 11/18/24 16:40: Urine Color Yellow, Urine Clarity Sl Cloudy, Urine pH 5.0, Ur Specific [place] 1.015, Urine Protein 30 H, Urine Glucose (UA) 1000 H, Urine Ketones 5 H, Urine Occult Blood 250 H, Urine Nitrite Negative, Urine Bilirubin Negative, Urine Urobilinogen Normal, Ur Leukocyte Esterase 25 H, Urine RBC 0-5 SEEN, Urine WBC 0-5 SEEN, Ur Squamous Epith Cells 0-5 SEEN, Urine Bacteria 0 SEEN, Hyaline Casts 0-5 SEEN, Fine Granular Casts 0-5 SEEN, Coarse Granular Casts 0-5 SEEN, Urine Mucus 0 SEEN Imaging Radiology Impression Abdomen/Pelvis CT 11/18/24 14:45 IMPRESSION: 1. Status post bowel resection with ovoid mesenteric hematoma in the right lower quadrant as detailed above. Mild surrounding mesenteric edema. No significant layering hemoperitoneum or free air. No obstruction. 2. Large defect of the anterior abdominal wall which may be postoperative. Please correlate. 3. Small right pleural effusion with complete right lower lobe consolidation and opacification of the corresponding right lower lobe bronchus. Reading Location: [facility] Brain CT 11/18/24 14:50 IMPRESSION: 1. No acute intracranial abnormality. 2. Mild atrophy and chronic ischemic changes as above. Reading Location: [facility] Chest X-Ray 11/18/24 15:35 IMPRESSION: Right lower lobe opacity which may relate to effusion with adjacent atelectasis/infiltrate. Reading Location: [facility] Assessment & Plan Assessment/Plan (1) Altered mental status: PLAN: Plan # Altered mental status -Suspect that this is largely due to medications in the setting of her decreased renal clearance, particularly gabapentin -Hold sedating agents - Will also check ABG given body habitus to verify patient not retaining CO2 - Given symptoms appear to be global suspect this is more metabolic or toxic in nature, if any focal changes are appreciated consider MRI however symptoms reportedly been present since Sunday and CT with no acute changes, and again this seems more global in nature # Acute renal failure -Possibly due to lisinopril and naproxen in combination with the vancomycin necessary for her infection -Hold lisinopril and naproxen -Continue vancomycin, will need renal dose adjustment -Hold gabapentin -Patient did receive fluids in the ED - Monitor I's and O's and daily weights #Hypoxia -Unclear if this is due to hypoventilation from her decreased level of consciousness or the right lower lobe changes which could be due to the adjacent effusion causing atelectasis but cannot rule out infiltrate - Patient is on very broad-spectrum antibiotics so lower suspicion for infection in this context especially given patient now saturating 100% on room air with no interventions but cannot rule out -Check viral respiratory panels, patient does start coughing produces any sputum will recommend culturing this - Will be consulting ID as below - It is also possible that given her altered mental status that she aspirated, consult speech # Paroxysmal atrial fibrillation - Patient with new onset A-fib during recent admission -Initially was started on Coreg but this was held due to an 18-second pause but was resumed on discharge -Not on Eliquis due to her multiple surgeries with it being on hold since right before the ex lap due to bleeding changes -In the ED EKG with rate of 73 and normal sinus rhythm #Type 2 diabetes mellitus -Glucose checks and sliding scale insulin - Hold long-acting insulin until improvement in mental status and patient consistently tolerating p.o. # Elevated troponin -Troponin of 77 -Patient was initially hypoxic on arrival but this is resolved, suspect a combination of that with patient's poor renal clearance led to patient's elevated troponin and lactic acid #GERD -Continue PPI #Morbid obesity -BMI documented as 44.1 kg/m? at time of admission -Complicates treatment, prognosis, outcomes -Recommend weight loss and lifestyle changes # Recent abdominal surgeries with postoperative infection -Recent prolonged hospitalization -Continue antibiotics and consult infectious disease while patient was inpatient -Per ED physician surgery contacted in the ED for evaluation and primary recommendation was to continue hold anticoagulation due to hematoma seen on abdominal CT #Hypertension - Blood pressure low on arrival, is improving but will plan to hold amlodipine and decrease carvedilol pending clinical progress #DVT ppx: SCDs Virginia Guerrero MD Time spent in the patient's overall evaluation, decision-making process, review of diagnostic data, adjustment of management, discussion with other providers, nursing and ancillary staff involved in patient's care documentation, 76 Minutes Based on patient's chart review she does come with a DNR from the [facility] and is documented as DNR [facility] Charges/Coding Visit Charges Inpatient E&M: 58220 Init Hosp L3
[2024-11-18 18:35] LABS: Troponin T High Sens 2 HR 71 ng/L (<=14)
--- NOTE | 2024-11-18 18:35 | ED.RN ---
Critical delta Troponin 71. Dr. Rowley notified.
[2024-11-18 19:11] LABS: Reflex Lactate? Y
[2024-11-18 19:28] LABS: Allen Test Positive; Base Excess 4 mmol/L (-2 to +2); Bicarbonate 30.1 mmol/L (22-26); Blood Gas Specimen Type ART; Mode Not entered; O2 Delivery Device Cannula; PO2 91 mmHG (75-100); SITE R Radial; SO2 96 % (95-99); Total Carbon Dioxide 32 mmol/L; pCO2 58.4 mmHg (35-45); pH 7.32 (7.35-7.45)
--- NOTE | 2024-11-18 20:18 | EX.PCM.CON.S ---
Assessment & Plan Assessment/Plan (1) S/P exploratory laparotomy: (2) Open abdominal wall wound: (3) Altered mental status: PLAN: Plan will continue wet to dry kerlex TID and consult wound nurse. ok for diet per surgery once pt more awake home eliquis held- intrabdominal hematoma and tranfusion last week. will continue to follow An Shah M.D. Pager: [phone] [facility] [address] [place] [address], Outpatient [facility]ilion, [address] [place] [id number] Office: [phone] HPI Consult Data Date of Consult: 11/19/24 HPI Narrative HPI Narrative: ZOIE DE LA PAZ, is a 68 F who presents to ER from [place] for change in mental status. Pt is poor historian and unable to currently give any history or say where she was. Pt well known to me, just discharged sunday after 1 month stay after hernia repair then exlap, SBR due to SB injury. CT a/p showed likely pna on the right, possible intraabdominal hematoma - pt did get 1 unit PRBC last week for Hb 7.2 went up to 8.3, currently 8.1. Pt wound packed with wet to dry saline. Patient is planned to be admitted to the ICU by the hospitalist. [facility] Medical History Hernia, ventral History of atrial fibrillation Abdominal pain Neuropathic pain Essential (primary) hypertension Cognitive dysfunction ESBL (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 coli infection Wears glasses Former smoker Obesity Ambulates with cane Stroke/cerebrovascular accident Difficulty in walking Poor historian Recurrent incisional hernia with incarceration Incarcerated ventral hernia Obstructive sleep apnea Atrial fibrillation Intraventricular hemorrhage Embolic stroke GERD (gastroesophageal reflux disease) Obesity (BMI 30-39.9) Hyperlipidemia Hypertension Diabetes mellitus Home Medications ?Medication ?Instructions ?Recorded ?Last Taken ?Type amlodipine 10 mg tablet (Norvasc) 10 mg PO QHS HTN 10/04/16 11/17/24 History apixaban 5 mg tablet (Eliquis) 5 mg PO BID blood thinner 10/04/16 11/03/24 History Held on 10/24/24. Instructions: Resume on 10/26/24. atorvastatin 80 mg tablet 80 mg PO QHS Cholesterol 10/25/16 11/17/24 Rx lisinopril 40 mg tablet 40 mg PO DAILY HTN 10/25/16 11/18/24 Rx pioglitazone 15 mg tablet 15 mg PO DAILY DM #30 tabs 10/09/22 11/18/24 Rx gabapentin 600 mg tablet 600 mg PO BID Nerve Pain 01/01/24 11/18/24 History multivitamin with folic acid 400 1 tab PO DAILY Supplement 05/14/24 11/18/24 History mcg tablet (Daily-Levon (with folic acid)) carvedilol 25 mg tablet 25 mg PO BID BP #60 tabs 05/19/24 11/18/24 Rx dapagliflozin propanediol 10 mg 10 mg PO DAILY diabetes #30 tabs 06/27/24 11/18/24 Rx tablet (Farxiga) insulin glargine 100 unit/mL (3 15 unit (0.15 mL) subcut BIDCM DM 06/27/24 11/18/24 Rx mL) subcutaneous pen (Lantus #5 pens Solostar U-100 Insulin) sennosides 8.6 mg-docusate sodium 1 tab PO BID #60 tabs 06/27/24 11/18/24 Rx 50 mg tablet (Stimulant Laxative Plus) benzonatate 200 mg capsule 200 mg PO TID PRN cough 10/23/24 Unknown History cholecalciferol (vitamin D3) 50 50 mcg PO DAILY 10/23/24 11/18/24 History mcg (2,000 unit) capsule dulaglutide 4.5 mg/0.5 mL 4.5 mg subcut QWEEK 10/23/24 11/17/24 History subcutaneous pen injector (Trulicity) glipizide 10 mg tablet 10 mg PO BID 10/23/24 11/18/24 History metformin 500 mg tablet 500 mg PO BID 10/23/24 11/18/24 History naproxen 500 mg tablet 500 mg PO BID 10/23/24 11/18/24 History oxycodone 5 mg capsule 5 mg PO Q6H PRN pain 3 days #10 10/24/24 Unknown Rx caps cefepime 2 gram/50 mL in dextrose 2 g IV Q8H 10 days 11/12/24 11/18/24 Rx 5 % intravenous piggyback metronidazole 500 mg/100 mL in 500 mg IV Q8 10 days #3,000 mL 11/12/24 11/18/24 Rx sodium chlor(iso) intravenous piggyback micafungin 100 mg intravenous 100 mg IV Q24 10 days #10 ea 11/12/24 11/17/24 Rx solution vancomycin 1 gram/200 mL in 1,000 mg IV Q24H 10 days #2,000 mL 11/12/24 11/18/24 Rx dextrose 5 % intravenous piggyback folic acid 400 mcg tablet 400 mcg PO DAILY 11/18/24 11/18/24 History nystatin 100,000 unit/gram topical 1 applic topical BID GROIN REDNESS 11/18/24 11/18/24 History ointment pantoprazole 20 mg tablet,delayed 20 mg PO DAILY 11/18/24 11/18/24 History release Allergy/AdvReac Type Severity Reaction Status Date / Time iodine Allergy Mild Itching Verified 11/18/24 14:22 Penicillins Allergy Mild Itching Verified 11/18/24 14:22 Family History Father CVA (cerebral vascular accident) Mother Diabetes Stomach cancer Other High cholesterol Hypertension Surgical History History of cholecystectomy Hx of colonoscopy Status post debridement History of hysterectomy S/P repair of ventral hernia Social History household members: none Smoking Status: Former smoker alcohol intake: never substance use type: does not use caffeine: Yes what type of physical activity do you participate in: walking frequency: daily Physical Exam Const Constitutional Narrative: lethargic, A & O = 0, alert to name HEENT normocephalic Resp Auscultation: rhonchi GI soft to palpation and non-tender GI Narrative: incision packed with wet to dry kerlix- redressed about 5PM, good granulation tissue, fascial sutures intact. Lab / Micro Data 11/19/24 06:40 11/19/24 06:40 Labs: Laboratory Results - last 24 hr 11/18/24 14:35: WBC 12.0 H, RBC 3.20 L, Hgb 8.1 L, Hct 27.2 L, MCV 85.0 D, MCH 25.3 L, MCHC 29.8 L, RDW Std Deviation 70.1 H, RDW Coeff of Faby 22.8 H, Plt Count 260, MPV 9.3, Immature Gran % (Auto) 0.900, Neut % (Auto) 79.4 H, Lymph % (Auto) 9.6 L, [place] % (Auto) 8.6, Eos % (Auto) 1.2, Baso % (Auto) 0.3, Absolute Neuts (auto) 9.5 H, Absolute Lymphs (auto) 1.15, Nucleated RBC % 0, Polychromasia 1+, Anisocytosis 1+, PT 17.7 H, INR 1.4, APTT 35.3, Sodium 138, Potassium 3.5, Chloride 101, Carbon Dioxide 25.8, Anion Gap 11, BUN 37 H, Creatinine 2.74 H, Estim Creat Clear Calc 26.06 L, Est GFR (MDRD) Non-Af 18 L, BUN/Creatinine Ratio 13.3, Glucose 180 H, Lactic Acid 4.3 H*, Calcium 9.5, Total Bilirubin 0.27, Direct Bilirubin 0.16, AST 60 H, ALT 31, Alkaline Phosphatase 79, Troponin T High Sens 77 H*, NT pro BNP II 2797 H, Total Protein 5.4 L, Albumin 1.9 L, Globulin 3.6, Lipase 28 11/18/24 16:40: Urine Color Yellow, Urine Clarity Sl Cloudy, Urine pH 5.0, Ur Specific [place] 1.015, Urine Protein 30 H, Urine Glucose (UA) 1000 H, Urine Ketones 5 H, Urine Occult Blood 250 H, Urine Nitrite Negative, Urine Bilirubin Negative, Urine Urobilinogen Normal, Ur Leukocyte Esterase 25 H, Urine RBC 0-5 SEEN, Urine WBC 0-5 SEEN, Ur Squamous Epith Cells 0-5 SEEN, Urine Bacteria 0 SEEN, Hyaline Casts 0-5 SEEN, Fine Granular Casts 0-5 SEEN, Coarse Granular Casts 0-5 SEEN, Urine Mucus 0 SEEN 11/18/24 17:30: Troponin T Hi Sens 2 Hr 71 H* 11/18/24 19:27: Lactic Acid 2.6 H* ABG Data ABG results: ABG 11/18/24 19:23 Specimen Type ART Sample Site R Radial pH 7.32 L Bicarbonate Actual 30.1 H Total CO2 32 Base Excess 4 H O2 Saturation 96 O2 % 4.0 ABG pCO2 58.4 H ABG pO2 91 Angel Test Positive O2 Delivery Device Cannula Vent Mode Not entered Imaging Radiology Impression Abdomen/Pelvis CT 11/18/24 14:45 IMPRESSION: 1. Status post bowel resection with ovoid mesenteric hematoma in the right lower quadrant as detailed above. Mild surrounding mesenteric edema. No significant layering hemoperitoneum or free air. No obstruction. 2. Large defect of the anterior abdominal wall which may be postoperative. Please correlate. 3. Small right pleural effusion with complete right lower lobe consolidation and opacification of the corresponding right lower lobe bronchus. Reading [facility] 11/18/24 14:50 IMPRESSION: 1. No acute intracranial abnormality. 2. Mild atrophy and chronic ischemic changes as above. Reading Location: [facility] Chest X-Ray 11/18/24 15:35 IMPRESSION: Right lower lobe opacity which may relate to effusion with adjacent atelectasis/infiltrate. Reading Location: [facility]
[2024-11-18] MEDS: 0.9% Normal Saline (1000mL) 1,000 ML 999 ML IV (20:53)
[2024-11-18] MEDS: 0.9% Normal Saline (100mL Bag) 100 ML 15 ML IV (21:00)
[2024-11-18] MEDS: Micafungin Sodium 100 MG in Dextrose 5%-Water (100mL Bag) 100 ML IV (21:00)
[2024-11-18] MEDS: Senna/Docusate Sodium 1 Tablet PO (21:02)
[2024-11-18] MEDS: Atorvastatin Calcium 80 MG Tablet PO (21:02)
[2024-11-18] MEDS: 0.9% Saline Lock 10 ML Syringe IV (21:02)
[2024-11-18 21:37] LABS: Bedside Glucose 181 mg/dL (74-106)
[2024-11-18 22:23] LABS: Lactic Acid 2.6 mmol/L (0.0-2.0)
[2024-11-18 22:24] LABS: Troponin T High Sens 4 HR 72 ng/L (<=14)
[2024-11-18] MEDS: metroNIDAZOLE 500 MG/100 ML BAG 100 MG IV (22:50)
[2024-11-18] MEDS: Insulin Lispro 100 UNIT/ML INSULN.PEN SC (23:04)
--- NOTE | 2024-11-18 23:07 | PCM.RX.CS ---
Consult Antibiotic Management Pharmacy has been consulted to manage selected antibiotic: Vancomycin Type of Intervention Type of Consult: New start Labs Labs: Sodium 138 mmol/L (133-145) 11/18/24 14:35 Potassium 3.5 mmol/L (3.3-5.1) 11/18/24 14:35 Chloride 101 mmol/L (98-108) 11/18/24 14:35 Carbon Dioxide 25.8 mmol/L (21.0-32.0) 11/18/24 14:35 Anion Gap 11 (5-15) 11/18/24 14:35 BUN 37 mg/dL (4-19) H 11/18/24 14:35 Creatinine 2.74 mg/dL (0.70-1.20) H 11/18/24 14:35 Est GFR (MDRD) Non-Af 18 (>60) L 11/18/24 14:35 BUN/Creatinine Ratio 13.3 RATIO (10-20) 11/18/24 14:35 Glucose 180 mg/dL (70-99) H 11/18/24 14:35 Microbiology Microbiology: Microbiology 11/18/24 19:08 Mucosa - Nasopharyngeal Respiratory Panel (PCR) - Final 11/18/24 19:08 Mucosa - Nose Coronavirus COVID-19 PCR - Final 11/18/24 16:40 Urine Catheter - Catheter Streptococcus pneumoniae Antigen (M - Final 11/18/24 16:40 Urine Catheter - Koo Legionella Antigen - Final Pharmacy Plan for Drug Dosing Pharmacy Plan for Drug Dosing: Pharmacy Service will continue to monitor and adjust dosing as required. PATIENT CURRENTLY ON VANCO Q24H AND LAST DOSE GIVEN 11/17 @ 2300. GIVE CURRENT DOSE AND DRAW TROUGH PRIOR TO NEXT DOSE Follow-Up Labs Follow-Up Labs: Trough: Vancomycin Date/Time Labs Ordered Labs to be done on [date and time ordered]: 11/19 @ 2230
[2024-11-18] MEDS: Vancomycin IV 1,000 MG/200 ML BAG 200 MG IV (23:45)
[2024-11-19] VITALS (49 sets, daily range): BP systolic 68–148; BP diastolic 30–114; PULSE 60–92; RESP 12–22; TEMP 36.1–37.6; O2SAT 93–100; BMI 43.5
[2024-11-19] MEDS: Norepinephrine 8 MG in 0.9% Normal Saline (250mL Bag) 242 ML 9.4 MG CONT INF (00:30)
[2024-11-19] MEDS: metroNIDAZOLE 500 MG/100 ML BAG 100 MG IV ×3 (06:35→21:18)
[2024-11-19] MEDS: 0.9% Saline Lock 10 ML Syringe IV ×2 (06:41→09:47)
[2024-11-19 06:49] LABS: Absolute Lymphocyte Count 1.65 X10^3/uL (0.83-4.51); Absolute Neutrophil Count 9.9 X10^3/uL (2.0-7.7); Basophil# 0.07 X10^3/uL; Basophil% 0.5 % (0-1); Eosinophil# 0.34 X10^3/uL; Eosinophils% 2.5 % (0-5); Lymphocyte # 1.65 X10^3/ul (0.83-4.51); Lymphocyte % 12.4 % (19-41); Mean Corpuscular Hgb 25.3 pg (27.0-32.0); Mean Corpuscular Volume 84.3 fL (81-99); Mean Platelet Vol. 9.5 fl (6.2-12.0); Monocyte# 1.22 X10^3/uL; Monocyte% 9.1 % (0-10); NRBC Flagged by Analyzer 0 % (0-5); Neutrophil # 9.92 X10^3/uL (2.7-7.7); Neutrophil % 74.3 % (47-70); POSITIVE MORPHOLOGY YES; Platelet Count 336 K/mm3 (150-450); RBC Distribution Width CV 22.6 % (11.6-14.6); RBC Distribution Width SD 69.4 fl (35.1-43.9); Red Blood Count 3.56 M/mm3 (4.2-5.4); White Blood Count 13.4 K/mm3 (4.4-11.0)
[2024-11-19 06:52] LABS: Differential Indicated SCAN CRITERIA MET
[2024-11-19 07:00] LABS: Bedside Glucose 115 mg/dL (74-106)
[2024-11-19 07:29] LABS: Anion Gap 10 (5-15); BUN 37 mg/dL (4-19); BUN/Creat Ratio 12.7 RATIO (10-20); Calcium,Total 8.7 mg/dL (7.6-11.0); Carbon Dioxide 24.4 mmol/L (21.0-32.0); Chloride 107 mmol/L (98-108); EST Glomerular Filtration Rate 17 (>60); Estimated Creatinine Clearance 24.45 ml/min (50-250); Glucose 123 mg/dL (70-99); Potassium 3.3 mmol/L (3.3-5.1); Sodium Level 142 mmol/L (133-145)
--- NOTE | 2024-11-19 07:47 | PN.HOSP_ITS ---
Reason for Visit Reason for Visit: Diagnoses Altered mental status, unspecified (11/18/24) Objective Data Objective Data Vital Signs: Vital Signs Temp Pulse Resp BP Pulse Ox O2 Del Method O2 Flow Rate 97.4 F L 65 13 115/40 L 100 Nasal Cannula 2 11/19/24 03:00 11/19/24 06:00 11/19/24 06:00 11/19/24 06:00 11/19/24 06:00 11/19/24 06:00 11/19/24 06:00 FiO2 30 11/18/24 21:00 Oxygen Flow Rate (L/min) 2 Oxygen Delivery Method Nasal Cannula Weight: 270 lb 1.06 oz Body Mass Index (BMI) 43.5 Intake & Output: Intake and Output for Last 24 Hours 11/17/24 11/18/24 11/19/24 23:59 23:59 23:59 Intake Total 3283.75 / 3283.75 294.00 / 294.00 Output Total 60 / 60 125 / 125 Balance 3223.75 / 3223.75 169.00 / 169.00 Lab / Micro Data 11/19/24 06:40 11/19/24 06:40 Labs: Laboratory Results - last 24 hr 11/18/24 14:35: WBC 12.0 H, RBC 3.20 L, Hgb 8.1 L, Hct 27.2 L, MCV 85.0 D, MCH 25.3 L, MCHC 29.8 L, RDW Std Deviation 70.1 H, RDW Coeff of Faby 22.8 H, Plt Count 260, MPV 9.3, Immature Gran % (Auto) 0.900, Neut % (Auto) 79.4 H, Lymph % (Auto) 9.6 L, [place] % (Auto) 8.6, Eos % (Auto) 1.2, Baso % (Auto) 0.3, Absolute Neuts (auto) 9.5 H, Absolute Lymphs (auto) 1.15, Nucleated RBC % 0, Polychromasia 1+, Anisocytosis 1+, PT 17.7 H, INR 1.4, APTT 35.3, Sodium 138, Potassium 3.5, Chloride 101, Carbon Dioxide 25.8, Anion Gap 11, BUN 37 H, C reatinine 2.74 H, Estim Creat Clear Calc 26.06 L, Est GFR (MDRD) Non-Af 18 L, BUN/Creatinine Ratio 13.3, Glucose 180 H, Lactic Acid 4.3 H*, Calcium 9.5, Total Bilirubin 0.27, Direct Bilirubin 0.16, AST 60 H, ALT 31, Alkaline Phosphatase 79, Troponin T High Sens 77 H*, NT pro BNP II 2797 H, Total Protein 5.4 L, A lbumin 1.9 L, Globulin 3.6, Lipase 28 11/18/24 16:40: Urine Color Yellow, Urine Clarity Sl Cloudy, Urine pH 5.0, Ur Specific [place] 1.015, Urine Protein 30 H, Urine Glucose (UA) 1000 H, Urine Ketones 5 H, Urine Occult Blood 250 H, Urine Nitrite Negative, Urine Bilirubin Negative, Urine Urobilinogen Normal, Ur Leukocyte Esterase 25 H, Urine RBC 0-5 SEEN, Urine WBC 0-5 SEEN, Ur Squamous Epith Cells 0-5 SEEN, Urine Bacteria 0 SEEN, Hyaline Casts 0-5 SEEN, Fine Granular Casts 0-5 SEEN, Coarse Granular Casts 0-5 SEEN, Urine Mucus 0 SEEN 11/18/24 17:30: Troponin T Hi Sens 2 Hr 71 H* 11/18/24 19:27: Lactic Acid 2.6 H* 11/18/24 21:16: POC Glucose 181 H 11/18/24 22:00: Troponin T Hi Sens 4Hr 72 H* 11/19/24 06:39: POC Glucose 115 H 11/19/24 06:40: WBC 13.4 H, RBC 3.56 L, Hgb 9.0 L, Hct 30.0 L, MCV 84.3, MCH 25.3 L, MCHC 30.0 L, RDW Std Deviation 69.4 H, RDW Coeff of Faby 22.6 H, Plt Count 336, MPV 9.5, Immature Gran % (Auto) 1.200 H, Neut % (Auto) 74.3 H, Lymph % (Auto) 12.4 L, [place] % (Auto) 9.1, Eos % (Auto) 2.5, Baso % (Auto) 0.5, A bsolute Neuts (auto) 9.9 H, Absolute Lymphs (auto) 1.65, Nucleated RBC % 0, Sodium 142, Potassium 3.3, Chloride 107, Carbon Dioxide 24.4, Anion Gap 10, BUN 37 H, Creatinine 2.90 H, Estim Creat Clear Calc 24.45 L, Est GFR (MDRD) Non-Af 17 L, BUN/Creatinine Ratio 12.7, Glucose 123 H, Calcium 8.7 Micro: Microbiology 11/18/24 19:08 Mucosa - Nasopharyngeal Respiratory Panel (PCR) - Final 11/18/24 19:08 Mucosa - Nose Coronavirus COVID-19 PCR - Final 11/18/24 16:40 Urine Catheter - Catheter Streptococcus pneumoniae Antigen (M - Final 11/18/24 16:40 Urine Catheter - Koo Legionella Antigen - Final ABG Data ABG results: ABG 11/18/24 19:23 Specimen Type ART Sample Site R Radial pH 7.32 L Bicarbonate Actual 30.1 H Total CO2 32 Base Excess 4 H O2 Saturation 96 O2 % 4.0 ABG pCO2 58.4 H ABG pO2 91 Angel Test Positive O2 Delivery Device Cannula Vent Mode Not entered Radiography Diagnostic Testing: Radiology Impression Abdomen/Pelvis CT 11/18/24 14:45 IMPRESSION: 1. Status post bowel resection with ovoid mesenteric hematoma in the right lower quadrant as detailed above. Mild surrounding mesenteric edema. No significant layering hemoperitoneum or free air. No obstruction. 2. Large defect of the anterior abdominal wall which may be postoperative. Please correlate. 3. Small right pleural effusion with complete right lower lobe consolidation and opacification of the corresponding right lower lobe bronchus. Reading Location: [facility] Brain CT 11/18/24 14:50 IMPRESSION: 1. No acute intracranial abnormality. 2. Mild atrophy and chronic ischemic changes as above. Reading Location: [facility] Chest X-Ray 11/18/24 15:35 IMPRESSION: Right lower lobe opacity which may relate to effusion with adjacent atelectasis/infiltrate. Reading Location: [facility] Physical Exam Narrative Seen and examined Patient is not attentive or alert to give history. Lethargic. She is asking for food. Patient cannot give history about dysuria/LUTS or other symptom. On Levophed drip. Physical exam General: Alert, Oriented x3, Cooperative HEENT: Atraumatic, PERRLA, EOMI, Normocephalic Oral: water leaking through the angle of mouth. Gurgling sound/on the throat. Neck: Supple, No JVD, Negative Carotid Bruits Chest wall/Lungs: Air entry diminished more on the right lung base. Mild coarse crepitation Cardiovascular: Sinus rhythm twelve-lead EKG shows sinus rhythm with PAC, Normal S1, Normal S2, No M/G/R Abdomen: Bowel Sounds Present, multiple surgical scar. Wound VAC present. No specific tenderness appreciated. : Koo catheter present. No renal angle tenderness. No suprapubic tenderness. Extremities: Mild edema, Capillary Refill Less than 3 Seconds Skin: No rashes, No breakdown Musculoskeletal: No Tenderness to Palpation of Joints or Extremities Neurological: Lethargic. Awake. Detailed neuroexam unobtainable Psych/Mental Status: Lethargic Assessment & Plan Assessment/Plan (1) Altered mental status: PLAN: Plan 68-year-old female was transferred from SNF for reported slurred speech. Patient baseline status multiple comorbidities complicates the present care and expect difficult and delay recovery . Patient had some incomprehensible words. 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 # Altered mental status -Suspect that this is largely due to medications in the setting of her decreased renal clearance, particularly gabapentin -Hold sedating agents - Will also check ABG given body habitus to verify patient not retaining CO2 - Given symptoms appear to be global suspect this is more metabolic or toxic in nature, if any focal changes are appreciated consider MRI however symptoms reportedly been present since Sunday and CT with no acute changes, and again this seems more global in nature # Acute renal failure -Possibly due to lisinopril and naproxen in combination with the vancomycin necessary for her infection -Hold lisinopril and naproxen -Continue vancomycin, will need renal dose adjustment -Hold gabapentin -Patient did receive fluids in the ED - Monitor I's and O's and daily weights #Hypoxia -Unclear if this is due to hypoventilation from her decreased level of consciousness or the right lower lobe changes which could be due to the adjacent effusion causing atelectasis but cannot rule out infiltrate - Patient is on very broad-spectrum antibiotics so lower suspicion for infection in this context especially given patient now saturating 100% on room air with no interventions but cannot rule out -Check viral respiratory panels, patient does start coughing produces any sputum will recommend culturing this - Will be consulting ID as below - It is also possible that given her altered mental status that she aspirated, consult speech # Paroxysmal atrial fibrillation - Patient with new onset A-fib during recent admission -Initially was started on Coreg but this was held due to an 18-second pause but was resumed on discharge -Not on Eliquis due to her multiple surgeries with it being on hold since right before the ex lap due to bleeding changes -In the ED EKG with rate of 73 and normal sinus rhythm with PAC #Type 2 diabetes mellitus -Glucose checks and sliding scale insulin - Hold long-acting insulin until improvement in mental status and patient consistently tolerating p.o. # Elevated troponin -Troponin of 77 -Patient was initially hypoxic on arrival but this is resolved, suspect a combination of that with patient's poor renal clearance led to patient's elevated troponin and lactic acid #GERD -Continue PPI #Morbid obesity -BMI documented as 44.1 kg/m? at time of admission -Complicates treatment, prognosis, outcomes -Recommend weight loss and lifestyle changes # Recent abdominal surgeries with postoperative infection -Recent prolonged hospitalization -Continue antibiotics and consult infectious disease while patient was inpatient -Per ED physician surgery contacted in the ED for evaluation and primary recommendation was to continue hold anticoagulation due to hematoma seen on abdominal CT CT abdomen individually reviewed and showsS/p bowel resection with ovoid mesenteric hematoma and RLQ with mild surrounding mesenteric edema. No significant clear pneumoperitoneum or free air. No obstruction. Small right pleural effusion with right lower lobe consolidation and opacification of right lower lobe bronchus #Hypertension - Blood pressure low on arrival, is improving but will plan to hold amlodipine and decrease carvedilol pending clinical progress #DVT ppx: SCDs DNR CCA
--- NOTE | 2024-11-19 07:59 | PCM.PN.SRG ---
Subjective Subjective Patient evaluated resting comfortably in bed. She seems pleasantly confused this morning. She denies any abdominal pain. Per longterm report, patient has been having bowel function. She denies any nausea, vomiting, fever. She notes minimal amount of tenderness at the wound site. Objective Data Objective Data Vital Signs: Vital Signs Temp Pulse Resp BP Pulse Ox O2 Del Method O2 Flow Rate 97.4 F L 65 13 115/40 L 100 Nasal Cannula 2 11/19/24 03:00 11/19/24 06:00 11/19/24 06:00 11/19/24 06:00 11/19/24 06:00 11/19/24 06:00 11/19/24 06:00 FiO2 30 11/18/24 21:00 Oxygen Flow Rate (L/min) 2 Oxygen Delivery Method Nasal Cannula Weight: 270 lb 1.06 oz Body Mass Index (BMI) 43.5 Intake & Output: Intake and Output for Last 24 Hours 11/17/24 11/18/24 11/19/24 23:59 23:59 23:59 Intake Total 3283.75 / 3283.75 394.00 / 394.00 Output Total 60 / 60 125 / 125 Balance 3223.75 / 3223.75 269.00 / 269.00 Lab / Micro Data 11/19/24 06:40 11/19/24 06:40 Labs: Laboratory Results - last 24 hr 11/18/24 14:35: WBC 12.0 H, RBC 3.20 L, Hgb 8.1 L, Hct 27.2 L, MCV 85.0 D, MCH 25.3 L, MCHC 29.8 L, RDW Std Deviation 70.1 H, RDW Coeff of Faby 22.8 H, Plt Count 260, MPV 9.3, Immature Gran % (Auto) 0.900, Neut % (Auto) 79.4 H, Lymph % (Auto) 9.6 L, [place] % (Auto) 8.6, Eos % (Auto) 1.2, Baso % (Auto) 0.3, Absolute Neuts (auto) 9.5 H, Absolute Lymphs (auto) 1.15, Nucleated RBC % 0, Polychromasia 1+, Anisocytosis 1+, PT 17.7 H, INR 1.4, APTT 35.3, Sodium 138, Potassium 3.5, Chloride 101, Carbon Dioxide 25.8, Anion Gap 11, BUN 37 H, Creatinine 2.74 H, Estim Creat Clear Calc 26.06 L, Est GFR (MDRD) Non-Af 18 L, BUN/Creatinine Ratio 13.3, Glucose 180 H, Lactic Acid 4.3 H*, Calcium 9.5, Total Bilirubin 0.27, Direct Bilirubin 0.16, AST 60 H, ALT 31, Alkaline Phosphatase 79, Troponin T High Sens 77 H*, NT pro BNP II 2797 H, Total Protein 5.4 L, Albumin 1.9 L, Globulin 3.6, Lipase 28 11/18/24 16:40: Urine Color Yellow, Urine Clarity Sl Cloudy, Urine pH 5.0, Ur Specific [place] 1.015, Urine Protein 30 H, Urine Glucose (UA) 1000 H, Urine Ketones 5 H, Urine Occult Blood 250 H, Urine Nitrite Negative, Urine Bilirubin Negative, Urine Urobilinogen Normal, Ur Leukocyte Esterase 25 H, Urine RBC 0-5 SEEN, Urine WBC 0-5 SEEN, Ur Squamous Epith Cells 0-5 SEEN, Urine Bacteria 0 SEEN, Hyaline Casts 0-5 SEEN, Fine Granular Casts 0-5 SEEN, Coarse Granular Casts 0-5 SEEN, Urine Mucus 0 SEEN 11/18/24 17:30: Troponin T Hi Sens 2 Hr 71 H* 11/18/24 19:27: Lactic Acid 2.6 H* 11/18/24 21:16: POC Glucose 181 H 11/18/24 22:00: Troponin T Hi Sens 4Hr 72 H* 11/19/24 06:39: POC Glucose 115 H 11/19/24 06:40: WBC 13.4 H, RBC 3.56 L, Hgb 9.0 L, Hct 30.0 L, MCV 84.3, MCH 25.3 L, MCHC 30.0 L, RDW Std Deviation 69.4 H, RDW Coeff of Faby 22.6 H, Plt Count 336, MPV 9.5, Immature Gran % (Auto) 1.200 H, Neut % (Auto) 74.3 H, Lymph % (Auto) 12.4 L, [place] % (Auto) 9.1, Eos % (Auto) 2.5, Baso % (Auto) 0.5, Absolute Neuts (auto) 9.9 H, Absolute Lymphs (auto) 1.65, Nucleated RBC % 0, Sodium 142, Potassium 3.3, Chloride 107, Carbon Dioxide 24.4, Anion Gap 10, BUN 37 H, Creatinine 2.90 H, Estim Creat Clear Calc 24.45 L, Est GFR (MDRD) Non-Af 17 L, BUN/Creatinine Ratio 12.7, Glucose 123 H, Calcium 8.7 Micro: Microbiology 11/18/24 19:08 Mucosa - Nasopharyngeal Respiratory Panel (PCR) - Final 11/18/24 19:08 Mucosa - Nose Coronavirus COVID-19 PCR - Final 11/18/24 16:40 Urine Catheter - Catheter Streptococcus pneumoniae Antigen (M - Final 11/18/24 16:40 Urine Catheter - Koo Legionella Antigen - Final ABG Data ABG results: ABG 11/18/24 19:23 Specimen Type ART Sample Site R Radial pH 7.32 L Bicarbonate Actual 30.1 H Total CO2 32 Base Excess 4 H O2 Saturation 96 O2 % 4.0 ABG pCO2 58.4 H ABG pO2 91 Angel Test Positive O2 Delivery Device Cannula Vent Mode Not entered Radiography Diagnostic Testing: Radiology Impression Abdomen/Pelvis CT 11/18/24 14:45 IMPRESSION: 1. Status post bowel resection with ovoid mesenteric hematoma in the right lower quadrant as detailed above. Mild surrounding mesenteric edema. No significant layering hemoperitoneum or free air. No obstruction. 2. Large defect of the anterior abdominal wall which may be postoperative. Please correlate. 3. Small right pleural effusion with complete right lower lobe consolidation and opacification of the corresponding right lower lobe bronchus. Reading Location: [facility] [place] Brain CT 11/18/24 14:50 IMPRESSION: 1. No acute intracranial abnormality. 2. Mild atrophy and chronic ischemic changes as above. Reading Location: [facility] [place] Chest X-Ray 11/18/24 15:35 IMPRESSION: Right lower lobe opacity which may relate to effusion with adjacent atelectasis/infiltrate. Reading Location: [facility] [place] Physical Exam GI GI Narrative: Abdomen- obese, soft, nontender. Large open wound in the right lower quadrant. Dry kerlix placed in open wound. Wound tunnels 10 cm laterally. Fascial sutures intact Assessment & Plan Assessment/Plan (1) Open abdominal wall wound: (2) S/P exploratory laparotomy: PLAN: Plan I am following this patient in conjunction with Dr. Shah. She will independently evaluate this patient. Labs reviewed. Wound appearance with healthy granulation tissue and minimal amount of slough laterally Plan to place wound vac back on with white foam at the base today Plan for M,W,F wound vac changes Mo surgical intervention planned at this time We will continue to monitor this patient Charges/Coding Visit Charges Inpatient E&M: 76045 Subs Hosp L2
--- NOTE | 2024-11-19 08:07 | EX.PCM.CONCC ---
Assessment & Plan Assessment/Plan (1) Shock: PLAN: Plan RECOMMENDATIONS: 1. Continue vasopressor support and wean as tolerated. 2. Administer additional IV fluids as ordered. 3. Hold all sedating medications. 4. Continue local wound care per general surgery recommendations. 5. Maintain n.p.o. status pending improvement in mental status. 6. Continue antimicrobials per ID recommendations. 7. Check TSH and ammonia. 8. Obtain follow-up ABG this morning. 9. Obtain renal ultrasound. IMPRESSIONS: 1. Undifferentiated shock While sepsis is certainly a possibility, I find it highly unlikely that the patient would have developed an underlying source of infection, given that she was being maintained on metronidazole, cefepime, vancomycin and micafungin at her [facility] facility. I do believe that is far more likely, given her limited p.o. intake, that the patient is likely hypovolemic and in need of additional volume resuscitation and nutritional support. For now, we will plan to continue the antibiotics that were previously ordered, pending reevaluation by infectious diseases. Her Levophed will be weaned as tolerated, with a goal to administer additional IV fluid resuscitation, as ordered. 2. Encephalopathy Most likely metabolic in nature. The patient did have a mild degree of CO2 retention noted upon presentation to the emergency department, for which she was initially maintained on BiPAP therapy. I do suspect that the fact that she was receiving gabapentin, in the setting of acute kidney injury, is likely also contributing to her encephalopathy. CT head was unremarkable. Will check TSH and ammonia level today. In the interim, I would avoid any additional sedating medications. Repeat ABG will be obtained this morning. 3. Acute kidney injury Most likely prerenal in etiology. Continue volume resuscitation as ordered along with vasopressor support to maintain hemodynamic stability. Continue to monitor urine output. No current indication for renal replacement therapy. Obtain renal ultrasound. 4. Recent abdominal surgery with postoperative infection Continue local wound care per general surgery recommendations. There needs to be a plan made for long-term nutritional support, given the patient's lack of p.o. intake. 5. History of paroxysmal atrial fibrillation/diabetes mellitus/GERD/morbid obesity Complicates care, management, recovery and prognosis. Continue supportive measures as noted above. The patient should remain n.p.o., pending improvement in her mental status. TIME: 40 minutes of critical care time, independent of procedures, was spent addressing the patient's undifferentiated shock, encephalopathy, acute kidney injury, review of all data and collaboration with the care team. HPI Consult Data Date of Consult: 11/19/24 HPI Narrative Reason for Consultation: Shock HPI Narrative: The patient is a 68-year-old female, with a history as outlined below, who presented to the emergency department on November 18 with altered mental status. The patient was just hospitalized October 23 through November 15 after presenting with recurrent hernias and small bowel obstruction. The patient was seen by general surgery and was taken the following day for ventral hernia repair with mesh. Her hospital course was then complicated by hypoxemia, hypoglycemia, postoperative wound infection and new onset atrial fibrillation. She was managed with IV antimicrobial therapy under the discretion of infectious diseases. Ultimately, over concerns for a possible small bowel fistula, the patient was taken back to the OR on November 01, where she underwent an exploratory laparotomy with removal of mesh, small bowel resection and anastomosis. She was ultimately discharged to a [facility] facility on metronidazole, cefepime, vancomycin and micafungin. On presentation to the emergency department, the patient was documented to be afebrile with a presenting blood pressure of 90/45 mmHg. She was saturating 87% on room air. Laboratory evaluation revealed a white blood cell count of 12,000. Hemoglobin was stable at 8.1 g/dL. Platelet count was within normal limits. Arterial blood gas was notable for a pH of 7.32 with a pCO2 of 58 and pO2 of 91. Chemistry profile was notable for a creatinine of 2.74 with a lactate of 4.3. Troponin was elevated at 77 with [place] BNP [place] [address]7. CT abdomen/pelvis demonstrated an ovoid mesenteric hematoma in the right lower quadrant with mild surrounding mesenteric edema. There was evidence of a small right pleural effusion with right lower lobe consolidation. CT head was unrevealing. The patient received supplemental IV fluid hydration and was continued on cefepime, Flagyl, vancomycin and micafungin. It does appear that the patient is prescribed both oxycodone and gabapentin on an outpatient basis. Due to the presence of fluid refractory hypotension, the patient was initiated on vasopressor support and admitted to the medical intensive care unit for further management. [facility] Medical History Hernia, ventral History of atrial fibrillation Abdominal pain Neuropathic pain Essential (primary) hypertension Cognitive dysfunction ESBL (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 coli infection Wears glasses Former smoker Obesity Ambulates with cane Stroke/cerebrovascular accident Difficulty in walking Poor historian Recurrent incisional hernia with incarceration Incarcerated ventral hernia Obstructive sleep apnea Atrial fibrillation Intraventricular hemorrhage Embolic stroke GERD (gastroesophageal reflux disease) Obesity (BMI 30-39.9) Hyperlipidemia Hypertension Diabetes mellitus Home Medications ?Medication ?Instructions ?Recorded ?Last Taken ?Type amlodipine 10 mg tablet (Norvasc) 10 mg PO QHS HTN 10/04/16 11/17/24 History apixaban 5 mg tablet (Eliquis) 5 mg PO BID blood thinner 10/04/16 11/03/24 History Held on 10/24/24. Instructions: Resume on 10/26/24. atorvastatin 80 mg tablet 80 mg PO QHS Cholesterol 10/25/16 11/17/24 Rx lisinopril 40 mg tablet 40 mg PO DAILY HTN 10/25/16 11/18/24 Rx pioglitazone 15 mg tablet 15 mg PO DAILY DM #30 tabs 10/09/22 11/18/24 Rx gabapentin 600 mg tablet 600 mg PO BID Nerve Pain 01/01/24 11/18/24 History multivitamin with folic acid 400 1 tab PO DAILY Supplement 05/14/24 11/18/24 History mcg tablet (Daily-Levon (with folic acid)) carvedilol 25 mg tablet 25 mg PO BID BP #60 tabs 05/19/24 11/18/24 Rx dapagliflozin propanediol 10 mg 10 mg PO DAILY diabetes #30 tabs 06/27/24 11/18/24 Rx tablet (Farxiga) insulin glargine 100 unit/mL (3 15 unit (0.15 mL) subcut BIDCM DM 06/27/24 11/18/24 Rx mL) subcutaneous pen (Lantus #5 pens Solostar U-100 Insulin) sennosides 8.6 mg-docusate sodium 1 tab PO BID #60 tabs 06/27/24 11/18/24 Rx 50 mg tablet (Stimulant Laxative Plus) benzonatate 200 mg capsule 200 mg PO TID PRN cough 10/23/24 Unknown History cholecalciferol (vitamin D3) 50 50 mcg PO DAILY 10/23/24 11/18/24 History mcg (2,000 unit) capsule dulaglutide 4.5 mg/0.5 mL 4.5 mg subcut QWEEK 10/23/24 11/17/24 History subcutaneous pen injector (Trulicity) glipizide 10 mg tablet 10 mg PO BID 10/23/24 11/18/24 History metformin 500 mg tablet 500 mg PO BID 10/23/24 11/18/24 History naproxen 500 mg tablet 500 mg PO BID 10/23/24 11/18/24 History oxycodone 5 mg capsule 5 mg PO Q6H PRN pain 3 days #10 10/24/24 Unknown Rx caps cefepime 2 gram/50 mL in dextrose 2 g IV Q8H 10 days 11/12/24 11/18/24 Rx 5 % intravenous piggyback metronidazole 500 mg/100 mL in 500 mg IV Q8 10 days #3,000 mL 11/12/24 11/18/24 Rx sodium chlor(iso) intravenous piggyback micafungin 100 mg intravenous 100 mg IV Q24 10 days #10 ea 11/12/24 11/17/24 Rx solution vancomycin 1 gram/200 mL in 1,000 mg IV Q24H 10 days #2,000 mL 11/12/24 11/18/24 Rx dextrose 5 % intravenous piggyback folic acid 400 mcg tablet 400 mcg PO DAILY 11/18/24 11/18/24 History nystatin 100,000 unit/gram topical 1 applic topical BID GROIN REDNESS 11/18/24 11/18/24 History ointment pantoprazole 20 mg tablet,delayed 20 mg PO DAILY 11/18/24 11/18/24 History release Allergy/AdvReac Type Severity Reaction Status Date / Time iodine Allergy Mild Itching Verified 11/18/24 14:22 Penicillins Allergy Mild Itching Verified 11/18/24 14:22 Family History Father CVA (cerebral vascular accident) Mother Diabetes Stomach cancer Other High cholesterol Hypertension Surgical History History of cholecystectomy Hx of colonoscopy Status post debridement History of hysterectomy S/P repair of ventral hernia Social History household members: none Smoking Status: Former smoker alcohol intake: never substance use type: does not use caffeine: Yes what type of physical activity do you participate in: walking frequency: daily ROS ROS Narrative 10 systems were reviewed with pertinent positives as noted in the HPI above. Physical Exam Const alert and no apparent distress Constitutional Narrative: Remains confused and disoriented. Morbidly obese. General Appearance: cooperative and ill appearing HEENT normocephalic and head/scalp atraumatic Eyes PERRL, EOMs intact bilaterally and conjunctivae normal Neck supple General: trachea midline Chest inspection of chest normal Resp normal respiratory effort Auscultation: diminished lung sounds; Negative for rales, rhonchi or wheezes Cardio regular rate and regular rhythm GI soft to palpation GI Narrative: Postsurgical site with wound VAC in place now Extremity General Extremity: edema; Negative for clubbing Skin General Skin Exam: venous stasis and dermatitis Neuro CN's II-XII intact bilaterally and no focal motor deficits Psych Mood & Affect: flat affect Lab / Micro Data 11/19/24 06:40 11/19/24 06:40 Labs: Laboratory Results - last 24 hr 11/18/24 14:35: WBC 12.0 H, RBC 3.20 L, Hgb 8.1 L, Hct 27.2 L, MCV 85.0 D, MCH 25.3 L, MCHC 29.8 L, RDW Std Deviation 70.1 H, RDW Coeff of Faby 22.8 H, Plt Count 260, MPV 9.3, Immature Gran % (Auto) 0.900, Neut % (Auto) 79.4 H, Lymph % (Auto) 9.6 L, Jerome % (Auto) 8.6, Eos % (Auto) 1.2, Baso % (Auto) 0.3, Absolute Neuts (auto) 9.5 H, Absolute Lymphs (auto) 1.15, Nucleated RBC % 0, Polychromasia 1+, Anisocytosis 1+, PT 17.7 H, INR 1.4, APTT 35.3, Sodium 138, Potassium 3.5, Chloride 101, Carbon Dioxide 25.8, Anion Gap 11, BUN 37 H, Creatinine 2.74 H, Estim Creat Clear Calc 26.06 L, Est GFR (MDRD) Non-Af 18 L, BUN/Creatinine Ratio 13.3, Glucose 180 H, Lactic Acid 4.3 H*, Calcium 9.5, Total Bilirubin 0.27, Direct Bilirubin 0.16, AST 60 H, ALT 31, Alkaline Phosphatase 79, Troponin T High Sens 77 H*, NT pro BNP II 2797 H, Total Protein 5.4 L, Albumin 1.9 L, Globulin 3.6, Lipase 28 11/18/24 16:40: Urine Color Yellow, Urine Clarity Sl Cloudy, Urine pH 5.0, Ur Specific [place] 1.015, Urine Protein 30 H, Urine Glucose (UA) 1000 H, Urine Ketones 5 H, Urine Occult Blood 250 H, Urine Nitrite Negative, Urine Bilirubin Negative, Urine Urobilinogen Normal, Ur Leukocyte Esterase 25 H, Urine RBC 0-5 SEEN, Urine WBC 0-5 SEEN, Ur Squamous Epith Cells 0-5 SEEN, Urine Bacteria 0 SEEN, Hyaline Casts 0-5 SEEN, Fine Granular Casts 0-5 SEEN, Coarse Granular Casts 0-5 SEEN, Urine Mucus 0 SEEN 11/18/24 17:30: Troponin T Hi Sens 2 Hr 71 H* 11/18/24 19:27: Lactic Acid 2.6 H* 11/18/24 21:16: POC Glucose 181 H 11/18/24 22:00: Troponin T Hi Sens 4Hr 72 H* 11/19/24 06:39: POC Glucose 115 H 11/19/24 06:40: WBC 13.4 H, RBC 3.56 L, Hgb 9.0 L, Hct 30.0 L, MCV 84.3, MCH 25.3 L, MCHC 30.0 L, RDW Std Deviation 69.4 H, RDW Coeff of Faby 22.6 H, Plt Count 336, MPV 9.5, Immature Gran % (Auto) 1.200 H, Neut % (Auto) 74.3 H, Lymph % (Auto) 12.4 L, Jerome % (Auto) 9.1, Eos % (Auto) 2.5, Baso % (Auto) 0.5, Absolute Neuts (auto) 9.9 H, Absolute Lymphs (auto) 1.65, Nucleated RBC % 0, Sodium 142, Potassium 3.3, Chloride 107, Carbon Dioxide 24.4, Anion Gap 10, BUN 37 H, Creatinine 2.90 H, Estim Creat Clear Calc 24.45 L, Est GFR (MDRD) Non-Af 17 L, BUN/Creatinine Ratio 12.7, Glucose 123 H, Calcium 8.7 Micro: Microbiology 11/18/24 19:08 Mucosa - Nasopharyngeal Respiratory Panel (PCR) - Final 11/18/24 19:08 Mucosa - Nose Coronavirus COVID-19 PCR - Final 11/18/24 16:40 Urine Catheter - Catheter Streptococcus pneumoniae Antigen (M - Final 11/18/24 16:40 Urine Catheter - Koo Legionella Antigen - Final ABG Data ABG results: ABG 11/18/24 19:23 Specimen Type ART Sample Site R Radial pH 7.32 L Bicarbonate Actual 30.1 H Total CO2 32 Base Excess 4 H O2 Saturation 96 O2 % 4.0 ABG pCO2 58.4 H ABG pO2 91 Angel Test Positive O2 Delivery Device Cannula Vent Mode Not entered Imaging Radiology Impression Abdomen/Pelvis CT 11/18/24 14:45 IMPRESSION: 1. Status post bowel resection with ovoid mesenteric hematoma in the right lower quadrant as detailed above. Mild surrounding mesenteric edema. No significant layering hemoperitoneum or free air. No obstruction. 2. Large defect of the anterior abdominal wall which may be postoperative. Please correlate. 3. Small right pleural effusion with complete right lower lobe consolidation and opacification of the corresponding right lower lobe bronchus. Reading Location: [facility] Brain CT 11/18/24 14:50 IMPRESSION: 1. No acute intracranial abnormality. 2. Mild atrophy and chronic ischemic changes as above. Reading Location: [facility] Chest X-Ray 11/18/24 15:35 IMPRESSION: Right lower lobe opacity which may relate to effusion with adjacent atelectasis/infiltrate. Reading Location: [facility] Charges/Coding Procedures Hospitalists Procedures: [id number] Critical Care 1st Hr
[2024-11-19 08:10] LABS: Anisocytosis 2+; Differential Comment SCANNED
--- NOTE | 2024-11-19 08:28 | WOUNDNOTE ---
wound photo: abdomen
[2024-11-19] MEDS: Lactated Ringers 1,000 ML 999 ML IV (08:58)
--- NOTE | 2024-11-19 09:39 | US_ITS ---
PROCEDURE: KIDNEY AND BLADDER 11/19/2024 REASON FOR EXAM: JEANNE TECHNIQUE: Bilateral renal ultrasound. COMPARISON: CT abdomen pelvis 11/18/2024. FINDINGS: Kidneys: Normal renal sizes, parenchymal thicknesses, and echotextures. Small left renal calculus. Right upper pole renal cyst. [place]: None. Masses: No large solid renal masses. Other: The urinary bladder is nonvisualized due to body habitus and indwelling Koo catheter. RIGHT Kidney Size: 11.9 x 6.3 x 5.6 cm Volume: 219 mL Parenchymal Thickness: 15 mm (>14mm is normal) Cortical Thickness (if discernible): N/a (>6mm is normal) LEFT Kidney Size: 12.8 x 6.7 x 5.9 cm Volume: 266 mL Parenchymal Thickness: 14 mm (>14mm is normal) Cortical Thickness (if discernible): N/a (>6mm is normal) US/Kidney and Bladder IMPRESSION: Unremarkable renal ultrasound. Small left renal calculus. Reading Location: [id number]
--- NOTE | 2024-11-19 09:45 | CASEMGMT ---
Physician inquired if SW could find out about patient's po intake while at the facility. KELLY called [facility] and spoke with a nurse who said she would have the boilermaker assembly and erection call SW back. KELLY also spoke with Jadiel, service parts coordinator from [facility]. He stated that they are not in network with patient's insurance, but they did get a one time contract, but only for 3 days. Jadiel said patient mentioned she was interested in going to [place] [facility] or [facility]. Jadiel said [facility] does not do IV antibiotics, but he did talk with [place]. When patient is less confused SW will confirm that she would be interested in [facility] or [facility]. Angy Chavira ELECTRONIC PAGINATION SYSTEM OPERATOR NANCY
[2024-11-19 09:46] LABS: Allen Test Positive; Base Excess 3 mmol/L (-2 to +2); Bicarbonate 28.9 mmol/L (22-26); Blood Gas Specimen Type ART; Mode Not entered; O2 Delivery Device Cannula; PO2 81 mmHG (75-100); SITE R Radial; SO2 95 % (95-99); Total Carbon Dioxide 31 mmol/L; pCO2 54.7 mmHg (35-45); pH 7.33 (7.35-7.45)
[2024-11-19 09:46] LABS: AST(SGOT) 50 U/L (<=31); Alanine Aminotransfer ALT/SGPT 36 U/L (<=34); Albumin, Serum 1.9 g/dL (3.4-4.8); Alkaline Phosphatase 80 U/L (35-104); Bilirubin, Direct 0.17 mg/dL (0.00-0.30); CPK Total, Creatine Kinase 180 U/L (24-195); Globulin 3.9 g/dL (2.2-4.2); Phosphorus 3.4 mg/dL (2.7-4.5); Protein, Total 5.8 g/dL (5.9-8.4); Total Bilirubin 0.27 mg/dL (0.00-1.30)
[2024-11-19] MEDS: Meropenem 500 MG in 0.9% Normal Saline (50mL MB+) 50 ML 100 MG IV ×2 (09:46→21:45)
--- NOTE | 2024-11-19 09:59 | CASEMGMT ---
Discharge Planning A list of?SNF providers including quality and resource use data and consistent with the patient's preferred geographic region, medical needs, and insurance network was created in [employer] Guide.? This list was provided to the KELLY. Nakia Hinton, Discharge Planning Asst
[2024-11-19 10:55] LABS: Ammonia 10.1 umol/L (11-51)
--- NOTE | 2024-11-19 12:40 | PCM.CONS.GEN ---
Assessment & Plan Assessment/Plan (1) Shock: PLAN: Abd wound doing well. No fever. Did have JEANNE, elevated lactate, and possible pneumonia seen on imaging on admit. Now on 2L, feeling ok. Will cont vanc, cefepime, flagyl, and micafungin. If mental status does not improve, may need to change cefepime given risk of encephalopathy. Will follow, thank you, d/w wound care (2) Open abdominal wall wound: (3) Postoperative wound infection: HPI Consult Data Date of Consult: 11/19/24 HPI Narrative Reason for Consultation: sepsis HPI Narrative: ZOIE DE LA PAZ, is a 68 F with recent prolonged hospital stay for recurrent hernia and SBO. Had ventral hernia repair 10/25, complicated by post op infection requiring multiple subsequent surgeries. Discharged to [facility] 11/15 on vanc, cefepime, flagyl, and micafungin. Readmitted from ED 11/18 with slurred speech, altered mental status. Found to have JEANNE and lactic acidosis. Admitted to icu and outpt abx were continued. Denies abd pain, no fever. Full ROS performed and neg except as noted above. [facility] Medical History Hernia, ventral History of atrial fibrillation Abdominal pain Neuropathic pain Essential (primary) hypertension Cognitive dysfunction ESBL (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 coli infection Wears glasses Former smoker Obesity Ambulates with cane Stroke/cerebrovascular accident Difficulty in walking Poor historian Recurrent incisional hernia with incarceration Incarcerated ventral hernia Obstructive sleep apnea Atrial fibrillation Intraventricular hemorrhage Embolic stroke GERD (gastroesophageal reflux disease) Obesity (BMI 30-39.9) Hyperlipidemia Hypertension Diabetes mellitus Home Medications ?Medication ?Instructions ?Recorded ?Last Taken ?Type amlodipine 10 mg tablet (Norvasc) 10 mg PO QHS HTN 10/04/16 11/17/24 History apixaban 5 mg tablet (Eliquis) 5 mg PO BID blood thinner 10/04/16 11/03/24 History Held on 10/24/24. Instructions: Resume on 10/26/24. atorvastatin 80 mg tablet 80 mg PO QHS Cholesterol 10/25/16 11/17/24 Rx lisinopril 40 mg tablet 40 mg PO DAILY HTN 10/25/16 11/18/24 Rx pioglitazone 15 mg tablet 15 mg PO DAILY DM #30 tabs 10/09/22 11/18/24 Rx gabapentin 600 mg tablet 600 mg PO BID Nerve Pain 01/01/24 11/18/24 History multivitamin with folic acid 400 1 tab PO DAILY Supplement 05/14/24 11/18/24 History mcg tablet (Daily-Levon (with folic acid)) carvedilol 25 mg tablet 25 mg PO BID BP #60 tabs 05/19/24 11/18/24 Rx dapagliflozin propanediol 10 mg 10 mg PO DAILY diabetes #30 tabs 06/27/24 11/18/24 Rx tablet (Farxiga) insulin glargine 100 unit/mL (3 15 unit (0.15 mL) subcut BIDCM DM 06/27/24 11/18/24 Rx mL) subcutaneous pen (Lantus #5 pens Solostar U-100 Insulin) sennosides 8.6 mg-docusate sodium 1 tab PO BID #60 tabs 06/27/24 11/18/24 Rx 50 mg tablet (Stimulant Laxative Plus) benzonatate 200 mg capsule 200 mg PO TID PRN cough 10/23/24 Unknown History cholecalciferol (vitamin D3) 50 50 mcg PO DAILY 10/23/24 11/18/24 History mcg (2,000 unit) capsule dulaglutide 4.5 mg/0.5 mL 4.5 mg subcut QWEEK 10/23/24 11/17/24 History subcutaneous pen injector (Trulicity) glipizide 10 mg tablet 10 mg PO BID 10/23/24 11/18/24 History metformin 500 mg tablet 500 mg PO BID 10/23/24 11/18/24 History naproxen 500 mg tablet 500 mg PO BID 10/23/24 11/18/24 History oxycodone 5 mg capsule 5 mg PO Q6H PRN pain 3 days #10 10/24/24 Unknown Rx caps cefepime 2 gram/50 mL in dextrose 2 g IV Q8H 10 days 11/12/24 11/18/24 Rx 5 % intravenous piggyback metronidazole 500 mg/100 mL in 500 mg IV Q8 10 days #3,000 mL 11/12/24 11/18/24 Rx sodium chlor(iso) intravenous piggyback micafungin 100 mg intravenous 100 mg IV Q24 10 days #10 ea 11/12/24 11/17/24 Rx solution vancomycin 1 gram/200 mL in 1,000 mg IV Q24H 10 days #2,000 mL 11/12/24 11/18/24 Rx dextrose 5 % intravenous piggyback folic acid 400 mcg tablet 400 mcg PO DAILY 11/18/24 11/18/24 History nystatin 100,000 unit/gram topical 1 applic topical BID GROIN REDNESS 11/18/24 11/18/24 History ointment pantoprazole 20 mg tablet,delayed 20 mg PO DAILY 11/18/24 11/18/24 History release Allergy/AdvReac Type Severity Reaction Status Date / Time iodine Allergy Mild Itching Verified 11/18/24 14:22 Penicillins Allergy Mild Itching Verified 11/18/24 14:22 Family History Father CVA (cerebral vascular accident) Mother Diabetes Stomach cancer Other High cholesterol Hypertension Surgical History History of cholecystectomy Hx of colonoscopy Status post debridement History of hysterectomy S/P repair of ventral hernia Social History household members: none Smoking Status: Former smoker alcohol intake: never substance use type: does not use caffeine: Yes what type of physical activity do you participate in: walking frequency: daily Physical Exam Const no apparent distress Constitutional Narrative: oriented x1 General Appearance: lethargic HEENT normocephalic and head/scalp atraumatic Eyes PERRL and EOMs intact bilaterally Neck supple and No nodes Resp normal air movement and clear to auscultation bilaterally Cardio regular rate and regular rhythm GI soft to palpation, non-tender and non-distended Extremity General Extremity: edema Skin Skin Narrative: reviewed photo. Abd wound vac in place. Neuro CN's II-XII intact bilaterally Lab / Micro Data Attestation: I reviewed the patient's lab results. 11/19/24 06:40 11/19/24 06:40 Labs: Laboratory Results - last 24 hr 11/18/24 14:35: WBC 12.0 H, RBC 3.20 L, Hgb 8.1 L, Hct 27.2 L, MCV 85.0 D, MCH 25.3 L, MCHC 29.8 L, RDW Std Deviation 70.1 H, RDW Coeff of Faby 22.8 H, Plt Count 260, MPV 9.3, Immature Gran % (Auto) 0.900, Neut % (Auto) 79.4 H, Lymph % (Auto) 9.6 L, [place] % (Auto) 8.6, Eos % (Auto) 1.2, Baso % (Auto) 0.3, Absolute Neuts (auto) 9.5 H, Absolute Lymphs (auto) 1.15, Nucleated RBC % 0, Polychromasia 1+, Anisocytosis 1+, PT 17.7 H, INR 1.4, APTT 35.3, Sodium 138, Potassium 3.5, Chloride 101, Carbon Dioxide 25.8, Anion Gap 11, BUN 37 H, Creatinine 2.74 H, Estim Creat Clear Calc 26.06 L, Est GFR (MDRD) Non-Af 18 L, BUN/Creatinine Ratio 13.3, Glucose 180 H, Lactic Acid 4.3 H*, Calcium 9.5, Total Bilirubin 0.27, Direct Bilirubin 0.16, AST 60 H, ALT 31, Alkaline Phosphatase 79, Troponin T High Sens 77 H*, NT pro BNP II 2797 H, Total Protein 5.4 L, Albumin 1.9 L, Globulin 3.6, Lipase 28 11/18/24 16:40: Urine Color Yellow, Urine Clarity Sl Cloudy, Urine pH 5.0, Ur Specific [place] 1.015, Urine Protein 30 H, Urine Glucose (UA) 1000 H, Urine Ketones 5 H, Urine Occult Blood 250 H, Urine Nitrite Negative, Urine Bilirubin Negative, Urine Urobilinogen Normal, Ur Leukocyte Esterase 25 H, Urine RBC 0-5 SEEN, Urine WBC 0-5 SEEN, Ur Squamous Epith Cells 0-5 SEEN, Urine Bacteria 0 SEEN, Hyaline Casts 0-5 SEEN, Fine Granular Casts 0-5 SEEN, Coarse Granular Casts 0-5 SEEN, Urine Mucus 0 SEEN 11/18/24 17:30: Troponin T Hi Sens 2 Hr 71 H* 11/18/24 19:27: Lactic Acid 2.6 H* 11/18/24 21:16: POC Glucose 181 H 11/18/24 22:00: Troponin T Hi Sens 4Hr 72 H* 11/19/24 06:39: POC Glucose 115 H 11/19/24 06:40: WBC 13.4 H, RBC 3.56 L, Hgb 9.0 L, Hct 30.0 L, MCV 84.3, MCH 25.3 L, MCHC 30.0 L, RDW Std Deviation 69.4 H, RDW Coeff of Faby 22.6 H, Plt Count 336, MPV 9.5, Immature Gran % (Auto) 1.200 H, Neut % (Auto) 74.3 H, Lymph % (Auto) 12.4 L, [place] % (Auto) 9.1, Eos % (Auto) 2.5, Baso % (Auto) 0.5, Absolute Neuts (auto) 9.9 H, Absolute Lymphs (auto) 1.65, Nucleated RBC % 0, Differential Comment SCANNED, Anisocytosis 2+, Sodium 142, Potassium 3.3, Chloride 107, Carbon Dioxide 24.4, Anion Gap 10, BUN 37 H, Creatinine 2.90 H, Estim Creat Clear Calc 24.45 L, Est GFR (MDRD) Non-Af 17 L, BUN/Creatinine Ratio 12.7, Glucose 123 H, Calcium 8.7, Phosphorus 3.4, Magnesium 2.0, Total Bilirubin 0.27, Direct Bilirubin 0.17, AST 50 H, ALT 36 H, Alkaline Phosphatase 80, Total Creatine Kinase 180, Total Protein 5.8 L, Albumin 1.9 L, Globulin 3.9, TSH 1.570 11/19/24 10:15: Ammonia 10.1 L Micro: Microbiology 11/18/24 19:08 Mucosa - Nasopharyngeal Respiratory Panel (PCR) - Final 11/18/24 19:08 Mucosa - Nose Coronavirus COVID-19 PCR - Final 11/18/24 16:40 Urine Catheter - Catheter Streptococcus pneumoniae Antigen (M - Final 11/18/24 16:40 Urine Catheter - Koo Legionella Antigen - Final ABG Data ABG results: ABG 11/18/24 11/19/24 19:23 09:42 Specimen Type ART ART Sample Site R Radial R Radial pH 7.32 L 7.33 L Bicarbonate Actual 30.1 H 28.9 H Total CO2 32 31 Base Excess 4 H 3 H O2 Saturation 96 95 O2 % 4.0 2.0 ABG pCO2 58.4 H 54.7 H ABG pO2 91 81 Angel Test Positive Positive O2 Delivery Device Cannula Cannula Vent Mode Not entered Not entered Imaging Radiology Impression Abdomen/Pelvis CT 11/18/24 14:45 IMPRESSION: 1. Status post bowel resection with ovoid mesenteric hematoma in the right lower quadrant as detailed above. Mild surrounding mesenteric edema. No significant layering hemoperitoneum or free air. No obstruction. 2. Large defect of the anterior abdominal wall which may be postoperative. Please correlate. 3. Small right pleural effusion with complete right lower lobe consolidation and opacification of the corresponding right lower lobe bronchus. Reading Location: [facility] Brain CT 11/18/24 14:50 IMPRESSION: 1. No acute intracranial abnormality. 2. Mild atrophy and chronic ischemic changes as above. Reading Location: [facility] Chest X-Ray 11/18/24 15:35 IMPRESSION: Right lower lobe opacity which may relate to effusion with adjacent atelectasis/infiltrate. Reading Location: [facility] Renal Ultrasound 11/19/24 09:39 IMPRESSION: Unremarkable renal ultrasound. Small left renal calculus. Reading Location: [id number]
[2024-11-19] MEDS: Norepinephrine 8 MG in 0.9% Normal Saline (250mL Bag) 242 ML 18.8 MG CONT INF (14:15)
--- NOTE | 2024-11-19 14:30 | CASEMGMT ---
KELLY received a call from [facility]. Patient was being fed for every meal. She ate between 75%-100% of her meals. Fluids she had between 240ml-360kl per meal. Yesterday she only had 120ml's with her meal. KELLY notified physician. Angy CRUZ
[2024-11-19 14:50] LABS: Bedside Glucose 114 mg/dL (74-106)
--- NOTE | 2024-11-19 16:32 | CASEMGMT ---
Pt David CHAUDHRY (Kera @ [phone]) calls for an update on pt status. Report given to the RICHA at this time and states that she will also call back tomorrow for another update.
[2024-11-19 17:19] LABS: Bedside Glucose 99 mg/dL (74-106)
--- NOTE | 2024-11-19 17:36 | NURSING ---
Pt becoming more drowsy through the evening- she still wakes up to verbal stimulation. Attempted to place the bipap mask on pt and she grabs my wrists and voices a firm NO. SPO2 WNL on 2L. Pt is dnrcca/dni.
[2024-11-19] MEDS: 0.9% Normal Saline (100mL Bag) 100 ML 15 ML IV (21:06)
[2024-11-19] MEDS: Micafungin Sodium 100 MG in Dextrose 5%-Water (100mL Bag) 100 ML IV (21:18)
[2024-11-19] MEDS: Dextrose 10%-Water 250 ML 999 ML IV (21:55)
--- NOTE | 2024-11-19 22:10 | CPS ---
Pt adamantly is refusing BiPAP tonight.
[2024-11-19 23:38] LABS: Bedside Glucose 55 mg/dL (74-106)
[2024-11-19 23:38] LABS: Bedside Glucose 142 mg/dL (74-106)
[2024-11-20] VITALS (49 sets, daily range): BP systolic 82–149; BP diastolic 38–90; PULSE 64–81; RESP 12–29; TEMP 36.4–37.2; O2SAT 89–100
[2024-11-20 00:55] LABS: Vancomycin, Trough Level 28.8 ug/mL (5.0-15.0)
--- NOTE | 2024-11-20 01:15 | PCM.RX.CS ---
Consult Antibiotic Management Pharmacy has been consulted to manage selected antibiotic: Vancomycin Type of Intervention Type of Consult: Follow-up Labs Labs: Sodium 142 mmol/L (133-145) 11/19/24 06:40 Potassium 3.3 mmol/L (3.3-5.1) 11/19/24 06:40 Chloride 107 mmol/L (98-108) 11/19/24 06:40 Carbon Dioxide 24.4 mmol/L (21.0-32.0) 11/19/24 06:40 Anion Gap 10 (5-15) 11/19/24 06:40 BUN 37 mg/dL (4-19) H 11/19/24 06:40 Creatinine 2.90 mg/dL (0.70-1.20) H 11/19/24 06:40 Est GFR (MDRD) Non-Af 17 (>60) L 11/19/24 06:40 BUN/Creatinine Ratio 12.7 RATIO (10-20) 11/19/24 06:40 Glucose 123 mg/dL (70-99) H 11/19/24 06:40 Vancomycin Trough 28.8 ug/mL (5.0-15.0) H 11/19/24 23:15 Microbiology Microbiology: Microbiology 11/18/24 19:08 Mucosa - Nasopharyngeal Respiratory Panel (PCR) - Final 11/18/24 19:08 Mucosa - Nose Coronavirus COVID-19 PCR - Final 11/18/24 16:40 Urine Catheter - Catheter Streptococcus pneumoniae Antigen (M - Final 11/18/24 16:40 Urine Catheter - Koo Legionella Antigen - Final Dosing Weight Weight used for dosin kg Estimated Creatinine Clearance Estimated Creatinine Clearance: 24.5 Goal Trough Goal Trough: 15-20 mcg/mL Pharmacy Plan for Drug Dosing Pharmacy Plan for Drug Dosing: Vancomycin trough level of 28.8, drawn 23.5hrs post-dose, was high. Will suspend current dosing. Will draw a random vancomycin level in 24 hours to determine further orders. Pharmacy Service will continue to monitor and adjust dosing as required. Follow-Up Labs Follow-Up Labs: Trough: Vancomycin (random) Date/Time Labs Ordered Labs to be done on [date and time ordered]: 11/20/24 @2330 (random)
[2024-11-20] MEDS: 0.9% Saline Lock 10 ML Syringe IV ×2 (01:57→22:22)
[2024-11-20] MEDS: Dextrose 50%-Water 25 GM/50 ML DISP.SYRIN IV (01:57)
[2024-11-20 02:36] LABS: Bedside Glucose 135 mg/dL (74-106)
[2024-11-20 06:18] LABS: Absolute Lymphocyte Count 1.76 X10^3/uL (0.83-4.51); Absolute Neutrophil Count 7.7 X10^3/uL (2.0-7.7); Basophil# 0.12 X10^3/uL; Basophil% 1.1 % (0-1); Eosinophil# 0.26 X10^3/uL; Eosinophils% 2.3 % (0-5); Hematocrit 30.2 % (37-47); Hemoglobin 9.3 g/dL (12.0-15.0); Lymphocyte # 1.76 X10^3/ul (0.83-4.51); Lymphocyte % 15.7 % (19-41); Mean Corp Hgb Conc 30.8 g/dL (32-36); Mean Corpuscular Hgb 25.5 pg (27.0-32.0); Mean Corpuscular Volume 82.7 fL (81-99); Monocyte% 10.7 % (0-10); NRBC Flagged by Analyzer 0.2 % (0-5); Neutrophil # 7.74 X10^3/uL (2.7-7.7); Neutrophil % 69.1 % (47-70); POSITIVE MORPHOLOGY YES; Platelet Count 330 K/mm3 (150-450); RBC Distribution Width CV 22.5 % (11.6-14.6); RBC Distribution Width SD 67.5 fl (35.1-43.9); Red Blood Count 3.65 M/mm3 (4.2-5.4); White Blood Count 11.2 K/mm3 (4.4-11.0)
[2024-11-20 06:24] LABS: Differential Indicated SCAN CRITERIA MET
[2024-11-20 06:39] LABS: Bedside Glucose 90 mg/dL (74-106)
[2024-11-20 06:39] LABS: Bedside Glucose 71 mg/dL (74-106)
[2024-11-20 06:40] LABS: Anion Gap 10 (5-15); BUN 42 mg/dL (4-19); BUN/Creat Ratio 11.5 RATIO (10-20); Calcium,Total 9.8 mg/dL (7.6-11.0); Carbon Dioxide 24.4 mmol/L (21.0-32.0); Chloride 104 mmol/L (98-108); Creatinine, Serum 3.66 mg/dL (0.70-1.20); EST Glomerular Filtration Rate 13 (>60); Estimated Creatinine Clearance 17.47 ml/min (50-250); Glucose 93 mg/dL (70-99); Potassium 3.4 mmol/L (3.3-5.1); Sodium Level 138 mmol/L (133-145)
[2024-11-20] MEDS: metroNIDAZOLE 500 MG/100 ML BAG 100 MG IV (06:42)
--- NOTE | 2024-11-20 07:42 | PCM.PN.SRG ---
Subjective Subjective pt still lethergic, not cleared by speech to lethergy- plan to start TPN today as she will likely refuse NG/dobhoff or pullout. wound vac in place, on levo at 10 mcg Objective Data Objective Data Vital Signs: Vital Signs Temp Pulse Resp BP Pulse Ox O2 Del Method O2 Flow Rate 98.9 F 78 25 H 140/90 H 89 Nasal Cannula 2 11/20/24 04:00 11/20/24 07:30 11/20/24 07:30 11/20/24 07:30 11/20/24 07:30 11/20/24 07:30 11/20/24 07:30 FiO2 30 11/18/24 21:00 Oxygen Flow Rate (L/min) 2 Oxygen Delivery Method Nasal Cannula Weight: 270 lb 1.06 oz Body Mass Index (BMI) 43.5 Intake & Output: Intake and Output for Last 24 Hours 11/18/24 11/19/24 11/20/24 23:59 23:59 23:59 Intake Total 3283.75 / 3283.75 2266.15 / 2270.85 205.70 / 205.70 Output Total 60 / 60 190 / 190 10 / 10 Balance 3223.75 / 3223.75 2076.15 / 2080.85 195.70 / 195.70 Lab / Micro Data 11/20/24 06:00 11/20/24 06:00 Labs: Laboratory Results - last 24 hr 11/19/24 06:40: Differential Comment SCANNED, Anisocytosis 2+, Phosphorus 3.4, Magnesium 2.0, Total Bilirubin 0.27, Direct Bilirubin 0.17, AST 50 H, ALT 36 H, Alkaline Phosphatase 80, Total Creatine Kinase 180, Total Protein 5.8 L, Albumin 1.9 L, Globulin 3.9, TSH 1.570 11/19/24 10:15: Ammonia 10.1 L 11/19/24 14:20: POC Glucose 114 H 11/19/24 16:59: POC Glucose 99 11/19/24 21:46: POC Glucose 55 L 11/19/24 22:13: POC Glucose 142 H 11/19/24 23:15: Vancomycin Trough 28.8 H 11/20/24 01:00: POC Glucose 71 L 11/20/24 02:19: POC Glucose 135 H 11/20/24 06:00: WBC 11.2 H, RBC 3.65 L, Hgb 9.3 L, Hct 30.2 L, MCV 82.7, MCH 25.5 L, MCHC 30.8 L, RDW Std Deviation 67.5 H, RDW Coeff of Faby 22.5 H, Plt Count 330, MPV 9.0, Immature Gran % (Auto) 1.100 H, Neut % (Auto) 69.1, Lymph % (Auto) 15.7 L, [place] % (Auto) 10.7 H, Eos % (Auto) 2.3, Baso % (Auto) 1.1 H, Absolute Neuts (auto) 7.7, Absolute Lymphs (auto) 1.76, Nucleated RBC % 0.2, Sodium 138, Potassium 3.4, Chloride 104, Carbon Dioxide 24.4, Anion Gap 10, BUN 42 H, Creatinine 3.66 H, Estim Creat Clear Calc 17.47 L, Est GFR (MDRD) Non-Af 13 L, BUN/Creatinine Ratio 11.5, Glucose 93, Calcium 9.8 11/20/24 06:20: POC Glucose 90 Micro: Microbiology 11/18/24 19:08 Mucosa - Nasopharyngeal Respiratory Panel (PCR) - Final 11/18/24 19:08 Mucosa - Nose Coronavirus COVID-19 PCR - Final 11/18/24 16:40 Urine Catheter - Catheter Streptococcus pneumoniae Antigen (M - Final 11/18/24 16:40 Urine Catheter - Koo Legionella Antigen - Final ABG Data ABG results: ABG 11/19/24 09:42 Specimen Type ART Sample Site R Radial pH 7.33 L Bicarbonate Actual 28.9 H Total CO2 31 Base Excess 3 H O2 Saturation 95 O2 % 2.0 ABG pCO2 54.7 H ABG pO2 81 Angel Test Positive O2 Delivery Device Cannula Vent Mode Not entered Radiography Diagnostic Testing: Radiology Impression Renal Ultrasound 11/19/24 09:39 IMPRESSION: Unremarkable renal ultrasound. Small left renal calculus. Reading Location: [facility] Physical Exam Const Constitutional Narrative: keeps falling asleep GI soft to palpation and non-tender GI Narrative: wound vac in place Assessment & Plan Assessment/Plan (1) Open abdominal wall wound: (2) S/P exploratory laparotomy: PLAN: Plan Plan for M,W,F wound vac changes No surgical intervention planned at this time continue IV abx per ID continue to wean levo currently at 10 mcg We will continue to monitor this patient
--- NOTE | 2024-11-20 07:51 | PCM.PN.INT ---
Assessment & Plan Assessment/Plan (1) Shock: PLAN: Plan RECOMMENDATIONS: 1. Continue vasopressor support and wean as tolerated. 2. Hold all sedating medications. 3. Continue local wound care per general surgery recommendations. 4. Maintain n.p.o. status pending improvement in mental status. 5. Continue antimicrobials per ID recommendations. 6. Nephrology consultation is pending. 7. Start TPN for nutritional support. IMPRESSIONS: 1. Undifferentiated shock While sepsis is certainly a possibility, I find it highly unlikely that the patient would have developed an underlying source of infection, given that she was being maintained on metronidazole, cefepime, vancomycin and micafungin at her intermediate facility. I do believe that is far more likely, given her limited p.o. intake, that the patient is likely hypovolemic and in need of additional volume resuscitation and nutritional support. Antimicrobials will be continued per ID recommendations. Levophed will be weaned as tolerated. TPN will be initiated for nutritional support, given lack of p.o. intake. 2. Encephalopathy Most likely metabolic in nature. The patient did have a mild degree of CO2 retention noted upon presentation to the emergency department, for which she was initially maintained on BiPAP therapy. I do suspect that the fact that she was receiving gabapentin, in the setting of acute kidney injury, is likely also contributing to her encephalopathy. CT head was unremarkable. TSH and ammonia were unremarkable. I would avoid any additional sedating medications. Unfortunately, the patient is refusing BiPAP therapy at night. 3. Acute kidney injury Most likely prerenal in etiology. Continue volume resuscitation as ordered along with vasopressor support to maintain hemodynamic stability. Continue to monitor urine output. Given worsening renal function, nephrology consultation has been placed. 4. Recent abdominal surgery with postoperative infection Continue local wound care per general surgery recommendations. 5. History of paroxysmal atrial fibrillation/diabetes mellitus/GERD/morbid obesity Complicates care, management, recovery and prognosis. Continue supportive measures as noted above. The patient should remain n.p.o., pending improvement in her mental status. TIME: 34 minutes of critical care time, independent of procedures, was spent addressing the patient's undifferentiated shock, encephalopathy, acute kidney injury, review of all data and collaboration with the care team. Subjective Subjective The patient was seen and examined at the bedside this morning. Events from the last 24 hours have been reviewed. While the patient remains afebrile, she is still requiring Levophed to maintain hemodynamic stability. The patient is documented to be overall net +5.6 L for the hospitalization. The patient has refused to wear BiPAP. White blood cell count this morning was noted to be 11,000. Hemoglobin is stable at 9.3 g/dL. Creatinine has increased to 3.6. Objective Data Objective Data The patient's most recent lab work, culture data and imaging studies have all been personally reviewed. Infectious workup has been unrevealing to date. Vital Signs: Vital Signs Temp Pulse Resp BP Pulse Ox O2 Del Method O2 Flow Rate 98.9 F 78 25 H 140/90 H 89 Nasal Cannula 2 11/20/24 04:00 11/20/24 07:30 11/20/24 07:30 11/20/24 07:30 11/20/24 07:30 11/20/24 07:30 11/20/24 07:30 FiO2 30 11/18/24 21:00 Oxygen Flow Rate (L/min) 2 Oxygen Delivery Method Nasal Cannula Weight: 270 lb 1.06 oz Body Mass Index (BMI) 43.5 Intake & Output: Intake and Output for Last 24 Hours 11/18/24 11/19/24 11/20/24 23:59 23:59 23:59 Intake Total 3283.75 / 3283.75 2266.15 / 2270.85 305.70 / 305.70 Output Total 60 / 60 190 / 190 10 / 10 Balance 3223.75 / 3223.75 2076.15 / 2080.85 295.70 / 295.70 Lab / Micro Data Attestation: I reviewed the patient's lab results. 11/20/24 06:00 11/20/24 06:00 Labs: Laboratory Results - last 24 hr 11/19/24 06:40: Differential Comment SCANNED, Anisocytosis 2+, Phosphorus 3.4, Magnesium 2.0, Total Bilirubin 0.27, Direct Bilirubin 0.17, AST 50 H, ALT 36 H, Alkaline Phosphatase 80, Total Creatine Kinase 180, Total Protein 5.8 L, Albumin 1.9 L, Globulin 3.9, TSH 1.570 11/19/24 10:15: Ammonia 10.1 L 11/19/24 14:20: POC Glucose 114 H 11/19/24 16:59: POC Glucose 99 11/19/24 21:46: POC Glucose 55 L 11/19/24 22:13: POC Glucose 142 H 11/19/24 23:15: Vancomycin Trough 28.8 H 11/20/24 01:00: POC Glucose 71 L 11/20/24 02:19: POC Glucose 135 H 11/20/24 06:00: WBC 11.2 H, RBC 3.65 L, Hgb 9.3 L, Hct 30.2 L, MCV 82.7, MCH 25.5 L, MCHC 30.8 L, RDW Std Deviation 67.5 H, RDW Coeff of Faby 22.5 H, Plt Count 330, MPV 9.0, Immature Gran % (Auto) 1.100 H, Neut % (Auto) 69.1, Lymph % (Auto) 15.7 L, [place] % (Auto) 10.7 H, Eos % (Auto) 2.3, Baso % (Auto) 1.1 H, Absolute Neuts (auto) 7.7, Absolute Lymphs (auto) 1.76, Nucleated RBC % 0.2, Sodium 138, Potassium 3.4, Chloride 104, Carbon Dioxide 24.4, Anion Gap 10, BUN 42 H, Creatinine 3.66 H, Estim Creat Clear Calc 17.47 L, Est GFR (MDRD) Non-Af 13 L, BUN/Creatinine Ratio 11.5, Glucose 93, Calcium 9.8 11/20/24 06:20: POC Glucose 90 Micro: Microbiology 11/18/24 19:08 Mucosa - Nasopharyngeal Respiratory Panel (PCR) - Final 11/18/24 19:08 Mucosa - Nose Coronavirus COVID-19 PCR - Final 11/18/24 16:40 Urine Catheter - Catheter Streptococcus pneumoniae Antigen (M - Final 11/18/24 16:40 Urine Catheter - Koo Legionella Antigen - Final ABG Data ABG results: ABG 11/19/24 09:42 Specimen Type ART Sample Site R Radial pH 7.33 L Bicarbonate Actual 28.9 H Total CO2 31 Base Excess 3 H O2 Saturation 95 O2 % 2.0 ABG pCO2 54.7 H ABG pO2 81 Angel Test Positive O2 Delivery Device Cannula Vent Mode Not entered Radiography Diagnostic Testing: Radiology Impression Renal Ultrasound 11/19/24 09:39 IMPRESSION: Unremarkable renal ultrasound. Small left renal calculus. Reading Location: [facility] Physical Exam Const alert and no apparent distress Constitutional Narrative: Remains confused and disoriented. Morbidly obese. General Appearance: cooperative and ill appearing Positive for chronically HEENT normocephalic and head/scalp atraumatic Eyes PERRL, EOMs intact bilaterally and conjunctivae normal Neck supple General: trachea midline Chest inspection of chest normal Resp normal respiratory effort Auscultation: diminished lung sounds; Negative for rales, rhonchi or wheezes Cardio regular rate and regular rhythm GI soft to palpation GI Narrative: Postsurgical site with wound VAC in place Extremity General Extremity: edema; Negative for clubbing Skin General Skin Exam: venous stasis and dermatitis Neuro CN's II-XII intact bilaterally and no focal motor deficits Psych Mood & Affect: flat affect Charges/Coding Procedures Hospitalists Procedures: [id number] Critical Care 1st Hr
--- NOTE | 2024-11-20 07:57 | WOUNDNOTE ---
Pt resting in bed. did awaken and answered a few questions. pt quickly falls back to sleep. will continue to monitor.
[2024-11-20] MEDS: TITRATION PARAMETER CHANGE 1 EACH IV (08:07)
--- NOTE | 2024-11-20 08:10 | PN.HOSP_ITS ---
Reason for Visit Reason for Visit: Diagnoses Altered mental status, unspecified (11/18/24) Shock, unspecified (11/18/24) Unspecified open wound of abdominal wall, unspecified quadrant without penetration into peritoneal cavity, initial encounter (11/18/24) Infection following a procedure, other surgical site, initial encounter (11/18/24) Other specified postprocedural states (11/18/24) Objective Data Objective Data Vital Signs: Vital Signs Temp Pulse Resp BP Pulse Ox O2 Del Method O2 Flow Rate 98.6 F 77 29 H 129/48 H 90 Nasal Cannula 5 11/20/24 08:00 11/20/24 08:00 11/20/24 08:00 11/20/24 08:00 11/20/24 08:00 11/20/24 08:00 11/20/24 08:00 FiO2 30 11/18/24 21:00 Oxygen Flow Rate (L/min) 5 Oxygen Delivery Method Nasal Cannula Weight: 270 lb 1.06 oz Body Mass Index (BMI) 43.5 Intake & Output: Intake and Output for Last 24 Hours 11/18/24 11/19/24 11/20/24 23:59 23:59 23:59 Intake Total 3283.75 / 3283.75 2266.15 / 2270.85 313.68 / 313.68 Output Total 60 / 60 190 / 190 10 / 10 Balance 3223.75 / 3223.75 2076.15 / 2080.85 303.68 / 303.68 Lab / Micro Data 11/20/24 06:00 11/20/24 06:00 Labs: Laboratory Results - last 24 hr 11/19/24 06:40: Differential Comment SCANNED, Anisocytosis 2+, Phosphorus 3.4, Magnesium 2.0, Total Bilirubin 0.27, Direct Bilirubin 0.17, AST 50 H, ALT 36 H, Alkaline Phosphatase 80, Total Creatine Kinase 180, Total Protein 5.8 L, Albumin 1.9 L, Globulin 3.9, TSH 1.570 11/19/24 10:15: Ammonia 10.1 L 11/19/24 14:20: POC Glucose 114 H 11/19/24 16:59: POC Glucose 99 11/19/24 21:46: POC Glucose 55 L 11/19/24 22:13: POC Glucose 142 H 11/19/24 23:15: Vancomycin Trough 28.8 H 11/20/24 01:00: POC Glucose 71 L 11/20/24 02:19: POC Glucose 135 H 11/20/24 06:00: WBC 11.2 H, RBC 3.65 L, Hgb 9.3 L, Hct 30.2 L, MCV 82.7, MCH 25.5 L, MCHC 30.8 L, RDW Std Deviation 67.5 H, RDW Coeff of Faby 22.5 H, Plt Count 330, MPV 9.0, Immature Gran % (Auto) 1.100 H, Neut % (Auto) 69.1, Lymph % (Auto) 15.7 L, [place] % (Auto) 10.7 H, Eos % (Auto) 2.3, Baso % (Auto) 1.1 H, Absolute Neuts (auto) 7.7, Absolute Lymphs (auto) 1.76, Nucleated RBC % 0.2, Sodium 138, Potassium 3.4, Chloride 104, Carbon Dioxide 24.4, Anion Gap 10, BUN 42 H, Creatinine 3.66 H, Estim Creat Clear Calc 17.47 L, Est GFR (MDRD) Non-Af 13 L, BUN/Creatinine Ratio 11.5, Glucose 93, Calcium 9.8 11/20/24 06:20: POC Glucose 90 Micro: Microbiology 11/18/24 19:08 Mucosa - Nasopharyngeal Respiratory Panel (PCR) - Final 11/18/24 19:08 Mucosa - Nose Coronavirus COVID-19 PCR - Final 11/18/24 16:40 Urine Catheter - Catheter Streptococcus pneumoniae Antigen (M - Final 11/18/24 16:40 Urine Catheter - Koo Legionella Antigen - Final ABG Data ABG results: ABG 11/19/24 09:42 Specimen Type ART Sample Site R Radial pH 7.33 L Bicarbonate Actual 28.9 H Total CO2 31 Base Excess 3 H O2 Saturation 95 O2 % 2.0 ABG pCO2 54.7 H ABG pO2 81 Angel Test Positive O2 Delivery Device Cannula Vent Mode Not entered Radiography Diagnostic Testing: Radiology Impression Renal Ultrasound 11/19/24 09:39 IMPRESSION: Unremarkable renal ultrasound. Small left renal calculus. Reading Location: [facility] Physical Exam Narrative Seen and examined Patient is still confused, lethargic although she tells currently her name, age and birthday. Urine output very low 1 L 30 to 50 mL overnight. Chart is 10 mL after midnight. 190 mL yesterday. On Levophed drip. Physical exam General: Lethargic, disoriented. Inattention HEENT: Atraumatic, PERRLA, EOMI, Normocephalic Oral: Oral mucosa dry Neck: Supple, No JVD, Negative Carotid Bruits Chest wall/Lungs: Air entry diminished more on the right lung base. Mild coarse crepitation Cardiovascular: Sinus rhythm Normal S1, Normal S2, No M/G/R Abdomen: Bowel Sounds Present, multiple surgical scar. Wound VAC present. No specific tenderness appreciated. : Koo catheter present. No renal angle tenderness. No suprapubic tenderness. Extremities: Mild edema, Capillary Refill Less than 3 Seconds Skin: No rashes, No breakdown Musculoskeletal: No Tenderness to Palpation of Joints or Extremities Neurological: Lethargic. Awake. Detailed neuroexam unobtainable Psych/Mental Status: Lethargic Assessment & Plan Assessment/Plan (1) Altered mental status: PLAN: Plan 68-year-old female was transferred from SNF for reported slurred speech. Patient baseline status multiple comorbidities complicates the present care and expect difficult and delay recovery . Patient had some incomprehensible words. 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 Hold sedating medications. ABG 7.33/54/81 on 2 L of oxygen. First ABG 7.32/58.4/ on 4 L of oxygen. Bicarb and ABG 31 but BMP shows 24 with anion gap 10. BMP bicarb is not reliable. 11/20: No significant improvement. Planning to start TPN. # Undifferentiated shock: Exact etiology unclear but hypovolemia and sepsis or possibility. Patient already on multiple antibiotics; vancomycin, cefepime, metronidazole and micafungin from [facility] therefore sepsis possibility is less likely. ID was consulted. Advised to continue same antibiotic. Patient does not have abdominal tenderness. Wound VAC there. No fever. 11/20: Is still on IV antibiotic vancomycin, meropenem, metronidazole and micafungin. Liver and ID to discontinue metronidazole Acute kidney injury: Admission BUN/creatinine 37/2.74 -Possibly due to lisinopril and naproxen in combination with the vancomycin necessary for her infection. BUN/creatinine 37/2.9. -Hold lisinopril and naproxen -Continue vancomycin,, renally adjusted. Pharmacy consulted for that -Hold gabapentin -Patient did receive fluids in the ED - Monitor I's and O's and daily weights 11/20: Patient had anuria over last 24 hours less than 100 mL. Creatinine also jumped from 2.7-3.66. Towing Pilot consulted with # Mild hypoxia: Chest x-ray and lung zaragoza of CT abdomen initially reviewed. Shows right lower lobe opacity, consolidation with underlying effusion and atelectasis. Possibility of aspiration as there was drooling fluid from the patient's mouth and patient is lethargic and right lower lobe opacity. Cefepime changed to meropenem. # Paroxysmal atrial fibrillation - Patient with new onset A-fib during recent admission -Initially was started on Coreg but this was held due to an 18-second pause but was resumed on discharge -Not on Eliquis due to her multiple surgeries with it being on hold since right before the ex lap due to bleeding changes -In the ED EKG with rate of 73 and normal sinus rhythm with PAC #Type 2 diabetes mellitus: Glucose 123 in BMP. -Glucose checks and sliding scale insulin - Hold long-acting insulin until improvement in mental status and patient consistently tolerating p.o. /24: Glucose on the lower side 90, morning time. # Elevated troponin -Troponin of 77, 71 and 72, flat indeterminate. Patient does not have chest pain or acute shortness of breath. Probably due to demand ischemia. - #GERD -Continue PPI #Morbid obesity -BMI documented as 44.1 kg/m? at time of admission -Complicates treatment, prognosis, outcomes -Recommend weight loss and lifestyle changes # Recent abdominal surgeries with postoperative infection -Recent prolonged hospitalization -Continue antibiotics and consult infectious disease while patient was inpatient -Per ED physician surgery contacted in the ED for evaluation and primary recommendation was to continue hold anticoagulation due to hematoma seen on abdominal CT CT abdomen individually reviewed and showsS/p bowel resection with ovoid mesenteric hematoma and RLQ with mild surrounding mesenteric edema. No significant clear pneumoperitoneum or free air. No obstruction. Small right pleural effusion with right lower lobe consolidation and opacification of right lower lobe bronchus #Hypertension currently patient on vasopressor Levophed. BP was low on arrival. Hold antihypertensive medication #DVT ppx: SCDs DNR CCA Charges/Coding Visit Charges Inpatient E&M: 26048 Subs Hosp L3
[2024-11-20 09:03] LABS: Anisocytosis 1+
[2024-11-20] MEDS: Meropenem 500 MG in 0.9% Normal Saline (50mL MB+) 50 ML 100 MG IV ×2 (10:03→21:29)
[2024-11-20] MEDS: Norepinephrine 8 MG in 0.9% Normal Saline (250mL Bag) 242 ML 9.4 MG CONT INF (10:21)
--- NOTE | 2024-11-20 10:21 | PCM.PN.ID ---
Physical Exam Narrative No events overnight, no fever, off pressor. Const Orientation / Consciousness: lethargic Resp normal air movement and clear to auscultation bilaterally Cardio regular rate and regular rhythm GI soft to palpation, non-tender and non-distended Skin no rashes or lesions noted ID ID: Route of nutrition/ use of supplements: [] Nutritional Intake: [] IV Site: [] Koo Catheter: [] Assessment & Plan Assessment/Plan (1) Shock: PLAN: Abd wound doing well. No fever. Did have JEANNE, elevated lactate, and possible pneumonia seen on imaging on admit. BP improved. Will cont vanc, anderson, and micafungin. Will follow (2) Open abdominal wall wound: (3) Postoperative wound infection:
--- NOTE | 2024-11-20 10:43 | CASEMGMT ---
Social Work- KELLY called Kera Wells, [facility], to provide pt updates. KELLY left a voicemail. Kera contact: [phone]. KELLY remains available to follow. ARELIS Muhammad
--- NOTE | 2024-11-20 10:49 | CASEMGMT ---
Social Work- Pt remains confused; in an effort to establish communication with family regarding pt care, SW reviewed chart; pt previously gave permission for staff to contact sister, who is also legal NOK. SW called sisterJa at [phone], and left a non-descript voicemail requesting a return call. Pt also has a niece listed as contact. In the absence of POA papers, which pt does not have on file and previously reported that she did not have, pt sister Ja would be first contact. KELLY to follow. ARELIS Muhammad
--- NOTE | 2024-11-20 10:54 | NURSING ---
1015: HR 64, BP 118/55. Levophed infusing at 5mcg/min
[2024-11-20] MEDS: Dextrose 10%-Water 250 ML 999 ML IV (11:40)
[2024-11-20 11:41] LABS: Triglycerides 121 mg/dL
[2024-11-20 12:04] LABS: Bedside Glucose 65 mg/dL (74-106)
[2024-11-20 12:54] LABS: Bedside Glucose 81 mg/dL (74-106)
[2024-11-20] MEDS: Pantoprazole Sodium 40 MG in 0.9% Normal Saline (100mL MB+) 100 ML 330 MG IV (13:05)
--- NOTE | 2024-11-20 13:15 | PCM.CONS.R ---
Assessment & Plan Assessment/Plan (1) JEANNE (acute kidney injury): (2) Altered mental status: PLAN: Plan This is a 68-year-old female who was brought to the emergency room on 11/18 from [facility] for evaluation of altered mental status. Patient has past medical history significant for diabetes mellitus type 2, A-fib, GERD, hypertension. Patient recently had lengthy hospitalization in which she was admitted end of September 2024 and underwent ventral hernia repair with mesh. Patient then had postoperative complications including hypoxia and hypoglycemia also developed infection to her wound. Patient went back to OR for ex lap and removal of mesh and small bowel resection anastomoses. Patient was discharged to ECF on 11/15 on IV antibiotics metronidazole, Vanco, cefepime, micafungin. Nephrology consulted in view of elevated creatinine. Patient has normal baseline creatinine. JEANNE likely secondary to sepsis with concurrent use of SHARMIN inhibitor and NSAID. These are on hold. Metformin is on hold. Also to note last Vanco trough on 11/19 elevated at 28.8. Renal ultrasound did not show any hydronephrosis. Patient has indwelling Koo. Not much urine output last 24 hours. At this time there is no acute indication for [employer], patient is not hypervolemic and potassium and bicarb are normal. Blood pressures have improved, patient is on low-dose Levophed. Patient was initially started on IV fluids. She is n.p.o. and being started on TPN tonight. ID consulted for antibiotic management. Labs ordered for morning. Further orders forthcoming as hospitalization evolves, thank you for allowing us to participate in the care of Ms. De La Paz. Assessment plan reviewed with Dr. Rodríguez. HPI Consult Data Date of Consult: 11/20/24 HPI Narrative HPI Narrative: ZOIE DE LA PAZ, is a 68 F who was brought to the emergency room on 11/18 from [facility] for evaluation of altered mental status. Patient has past medical history significant for diabetes mellitus type 2, A-fib, GERD, hypertension. Patient recently had lengthy hospitalization in which she was admitted end of September 2024 and underwent ventral hernia repair with mesh. Patient then had postoperative complications including hypoxia and hypoglycemia also developed infection to her wound. Patient went back to OR for ex lap and removal of mesh and small bowel resection anastomoses. Patient was discharged to ECF on 11/15 on IV antibiotics metronidazole, Vanco, cefepime, micafungin. Nephrology consulted in view of elevated creatinine. Patient has normal baseline creatinine levels. During last hospitalization her creatinine did peak 1.89 on 11/06, at time of hospital discharge on 419 creatinine 1.17. Yesterday creatinine 2.9 and today creatinine 3.66. Patient is awake, alert but confused to time and place. Information gathered from nursing and chart. [facility] Medical History (Updated 11/20/24 @ 13:20 by GILBERT Kwong) JEANNE (acute kidney injury) Hernia, ventral History of atrial fibrillation Abdominal pain Neuropathic pain Essential (primary) hypertension Cognitive dysfunction ESBL (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 coli infection Wears glasses Former smoker Obesity Ambulates with cane Stroke/cerebrovascular accident Difficulty in walking Poor historian Recurrent incisional hernia with incarceration Incarcerated ventral hernia Obstructive sleep apnea Atrial fibrillation Intraventricular hemorrhage Embolic stroke GERD (gastroesophageal reflux disease) Obesity (BMI 30-39.9) Hyperlipidemia Hypertension Diabetes mellitus Home Medications ?Medication ?Instructions ?Recorded ?Last Taken ?Type amlodipine 10 mg tablet (Norvasc) 10 mg PO QHS HTN 10/04/16 11/17/24 History apixaban 5 mg tablet (Eliquis) 5 mg PO BID blood thinner 10/04/16 11/03/24 History Held on 10/24/24. Instructions: Resume on 10/26/24. atorvastatin 80 mg tablet 80 mg PO QHS Cholesterol 10/25/16 11/17/24 Rx lisinopril 40 mg tablet 40 mg PO DAILY HTN 10/25/16 11/18/24 Rx pioglitazone 15 mg tablet 15 mg PO DAILY DM #30 tabs 10/09/22 11/18/24 Rx gabapentin 600 mg tablet 600 mg PO BID Nerve Pain 01/01/24 11/18/24 History multivitamin with folic acid 400 1 tab PO DAILY Supplement 05/14/24 11/18/24 History mcg tablet (Daily-Levon (with folic acid)) carvedilol 25 mg tablet 25 mg PO BID BP #60 tabs 05/19/24 11/18/24 Rx dapagliflozin propanediol 10 mg 10 mg PO DAILY diabetes #30 tabs 06/27/24 11/18/24 Rx tablet (Farxiga) insulin glargine 100 unit/mL (3 15 unit (0.15 mL) subcut BIDCM DM 06/27/24 11/18/24 Rx mL) subcutaneous pen (Lantus #5 pens Solostar U-100 Insulin) sennosides 8.6 mg-docusate sodium 1 tab PO BID #60 tabs 06/27/24 11/18/24 Rx 50 mg tablet (Stimulant Laxative Plus) benzonatate 200 mg capsule 200 mg PO TID PRN cough 10/23/24 Unknown History cholecalciferol (vitamin D3) 50 50 mcg PO DAILY 10/23/24 11/18/24 History mcg (2,000 unit) capsule dulaglutide 4.5 mg/0.5 mL 4.5 mg subcut QWEEK 10/23/24 11/17/24 History subcutaneous pen injector (Trulicity) glipizide 10 mg tablet 10 mg PO BID 10/23/24 11/18/24 History metformin 500 mg tablet 500 mg PO BID 10/23/24 11/18/24 History naproxen 500 mg tablet 500 mg PO BID 10/23/24 11/18/24 History oxycodone 5 mg capsule 5 mg PO Q6H PRN pain 3 days #10 10/24/24 Unknown Rx caps cefepime 2 gram/50 mL in dextrose 2 g IV Q8H 10 days 11/12/24 11/18/24 Rx 5 % intravenous piggyback metronidazole 500 mg/100 mL in 500 mg IV Q8 10 days #3,000 mL 11/12/24 11/18/24 Rx sodium chlor(iso) intravenous piggyback micafungin 100 mg intravenous 100 mg IV Q24 10 days #10 ea 11/12/24 11/17/24 Rx solution vancomycin 1 gram/200 mL in 1,000 mg IV Q24H 10 days #2,000 mL 11/12/24 11/18/24 Rx dextrose 5 % intravenous piggyback folic acid 400 mcg tablet 400 mcg PO DAILY 11/18/24 11/18/24 History nystatin 100,000 unit/gram topical 1 applic topical BID GROIN REDNESS 11/18/24 11/18/24 History ointment pantoprazole 20 mg tablet,delayed 20 mg PO DAILY 11/18/24 11/18/24 History release Allergy/AdvReac Type Severity Reaction Status Date / Time iodine Allergy Mild Itching Verified 11/18/24 14:22 Penicillins Allergy Mild Itching Verified 11/18/24 14:22 Family History Father CVA (cerebral vascular accident) Mother Diabetes Stomach cancer Other High cholesterol Hypertension Surgical History History of cholecystectomy Hx of colonoscopy Status post debridement History of hysterectomy S/P repair of ventral hernia Social History household members: none Smoking Status: Former smoker alcohol intake: never substance use type: does not use caffeine: Yes what type of physical activity do you participate in: walking frequency: daily ROS ROS Narrative Unable to obtain Physical Exam Narrative Awake, no apparent distress. Drowsy and confused S1, S2, RRR Lungs sound clear anteriorly and posteriorly. No rales or rhonchi. On O2 nasal cannula Abdomen soft No significant pitting edema bilateral lower legs thighs or arms Indwelling Koo with scant clear yellow urine in tubing Lab / Micro Data 11/20/24 06:00 11/20/24 06:00 Labs: Laboratory Results - last 24 hr 11/19/24 14:20: POC Glucose 114 H 11/19/24 16:59: POC Glucose 99 11/19/24 21:46: POC Glucose 55 L 11/19/24 22:13: POC Glucose 142 H 11/19/24 23:15: Vancomycin Trough 28.8 H 11/20/24 01:00: POC Glucose 71 L 11/20/24 02:19: POC Glucose 135 H 11/20/24 06:00: WBC 11.2 H, RBC 3.65 L, Hgb 9.3 L, Hct 30.2 L, MCV 82.7, MCH 25.5 L, MCHC 30.8 L, RDW Std Deviation 67.5 H, RDW Coeff of Faby 22.5 H, Plt Count 330, MPV 9.0, Immature Gran % (Auto) 1.100 H, Neut % (Auto) 69.1, Lymph % (Auto) 15.7 L, [place] % (Auto) 10.7 H, Eos % (Auto) 2.3, Baso % (Auto) 1.1 H, Absolute Neuts (auto) 7.7, Absolute Lymphs (auto) 1.76, Nucleated RBC % 0.2, Anisocytosis 1+, Sodium 138, Potassium 3.4, Chloride 104, Carbon Dioxide 24.4, Anion Gap 10, BUN 42 H, Creatinine 3.66 H, Estim Creat Clear Calc 17.47 L, Est GFR (MDRD) Non-Af 13 L, BUN/Creatinine Ratio 11.5, Glucose 93, Calcium 9.8, Triglycerides 121 11/20/24 06:20: POC Glucose 90 11/20/24 11:35: POC Glucose 65 L 11/20/24 12:36: POC Glucose 81 Micro: Microbiology 11/18/24 15:00 Blood Culture (Wb) - Pic Blood Culture - Preliminary No growth in 48 hours. 11/18/24 14:35 Blood Culture (Wb) - Anticubital Left Blood Culture - Preliminary No growth in 48 hours.
--- NOTE | 2024-11-20 13:31 | CASEMGMT ---
Social Work- KELLY spoke with Kera Wells, [facility] to coordinate care. Kera reports that Alissa has not had any contact with her niece, Aubrie, since last April and Aubrie has also not returned any calls from Kera. Kera reports that Alissa did not have a release for her sister, Ja, for Kera to call, but Kera did report that pt would often ask for her sister to be provided updates. Kera reports that she is going to coordinate with [facility] on pt rent., as Kera reports that pt is behind on her bills.Kera reports that pt has historically preferred [facility] for SNF at discharge due to being able to smoke. Kera requests continued updates on discharge planning. KELLY received a return call from Ja, pt sister, who reports that she has had regular contact with pt, althought pt has been unable to converse the past few weeks. Ja is agreeable to point of contact and understanding that as a sibling, she is legally NOK. Ja shared that pt also has a brother Edmond oTrres in [facility]. Edmond is a long distance tow truck operator. She was unable to provide his number at this time, but will provide it at a later date. Ja reports that pt has a checkbook with signed checks in it for her bills. Ja reports that pt is at least two months behind on all of her bills at this time. Ja is concerned about pt ability to return home and questioned if placement will or should not be keno terminal operator due to pt inability to care for self at this time. Ja reports that her spouse just a few weeks ago and she is trying to settle his affairs, but would like to eventually visit pt. Mellissaowen requests updates on pt status and discharge planning. Pt remains drowsy, unable to converse freely due to inability to stay awake. SW remains available to follow. ARELIS Muhammad
[2024-11-20] MEDS: TPN - Clinimix E 8%-14% Soln 2,000 ML with Multivitamins 10 ML, Trace Elements 1 ML, Fo... 42 ML IV (15:39)
[2024-11-20 17:37] LABS: Bedside Glucose 76 mg/dL (74-106)
[2024-11-20] MEDS: Micafungin Sodium 100 MG in Dextrose 5%-Water (100mL Bag) 100 ML IV (21:30)
[2024-11-20 21:56] LABS: Bedside Glucose 87 mg/dL (74-106)
[2024-11-20] MEDS: CHLORHEXIDINE GLUC 2% CLOTH 1 EACH TOWELETTE TOPICAL (22:22)
[2024-11-21] VITALS (14 sets, daily range): BP systolic 97–134; BP diastolic 37–52; PULSE 68–83; RESP 12–18; TEMP 36.4–37; O2SAT 94–99; BMI 62.5
--- NOTE | 2024-11-21 00:49 | CPS ---
This DATA TRANSCRIBER attempted to place Bipap on patient HS, patient pushed Bipap mask away and refused to wear for DATA TRANSCRIBER
--- NOTE | 2024-11-21 03:04 | PCM.RX.CS ---
Consult Antibiotic Management Pharmacy has been consulted to manage selected antibiotic: Vancomycin Type of Intervention Type of Consult: Follow-up Labs Labs: Sodium 138 mmol/L (133-145) 11/20/24 06:00 Potassium 3.4 mmol/L (3.3-5.1) 11/20/24 06:00 Chloride 104 mmol/L (98-108) 11/20/24 06:00 Carbon Dioxide 24.4 mmol/L (21.0-32.0) 11/20/24 06:00 Anion Gap 10 (5-15) 11/20/24 06:00 BUN 42 mg/dL (4-19) H 11/20/24 06:00 Creatinine 3.66 mg/dL (0.70-1.20) H 11/20/24 06:00 Est GFR (MDRD) Non-Af 13 (>60) L 11/20/24 06:00 BUN/Creatinine Ratio 11.5 RATIO (10-20) 11/20/24 06:00 Glucose 93 mg/dL (70-99) 11/20/24 06:00 Vancomycin Trough 28.8 ug/mL (5.0-15.0) H 11/19/24 23:15 Random Vancomycin 32.0 ug/mL (0.0-15.0) H 11/20/24 01:54 Microbiology Microbiology: Microbiology 11/18/24 15:00 Blood Culture (Wb) - Pic Blood Culture - Preliminary No growth in 48 hours. 11/18/24 14:35 Blood Culture (Wb) - Anticubital Left Blood Culture - Preliminary No growth in 48 hours. 11/18/24 19:08 Mucosa - Nasopharyngeal Respiratory Panel (PCR) - Final 11/18/24 19:08 Mucosa - Nose Coronavirus COVID-19 PCR - Final 11/18/24 16:40 Urine Catheter - Catheter Streptococcus pneumoniae Antigen (M - Final 11/18/24 16:40 Urine Catheter - Koo Legionella Antigen - Final Dosing Weight Weight used for dosin kg Estimated Creatinine Clearance Estimated Creatinine Clearance: 17.5 Goal Trough Goal Trough: 15-20 mcg/mL Pharmacy Plan for Drug Dosing Pharmacy Plan for Drug Dosing: Random vancomycin level was high at 32.0. This was a 50-hr level, owing to the continued decrease in renal function. Will continue to hold further vanco dosing, and will draw another random level 11/22/24 with morning lab work. Pharmacy Service will continue to monitor and adjust dosing as required. Follow-Up Labs Follow-Up Labs: Trough: Vancomycin (random) Date/Time Labs Ordered Labs to be done on [date and time ordered]: 11/22/24 @0600 (random)
[2024-11-21 03:57] LABS: Absolute Lymphocyte Count 1.11 X10^3/uL (0.83-4.51); Absolute Neutrophil Count 5.3 X10^3/uL (2.0-7.7); Basophil# 0.04 X10^3/uL; Basophil% 0.5 % (0-1); Eosinophil# 0.15 X10^3/uL; Hematocrit 25.7 % (37-47); Hemoglobin 7.8 g/dL (12.0-15.0); Lymphocyte # 1.11 X10^3/ul (0.83-4.51); Lymphocyte % 14.9 % (19-41); Mean Corp Hgb Conc 30.4 g/dL (32-36); Mean Corpuscular Hgb 25.1 pg (27.0-32.0); Mean Corpuscular Volume 82.6 fL (81-99); Mean Platelet Vol. 9.2 fl (6.2-12.0); Monocyte% 10.7 % (0-10); NRBC Flagged by Analyzer 0 % (0-5); POSITIVE MORPHOLOGY YES; Platelet Count 237 K/mm3 (150-450); RBC Distribution Width CV 22.3 % (11.6-14.6); RBC Distribution Width SD 66.9 fl (35.1-43.9); Red Blood Count 3.11 M/mm3 (4.2-5.4); White Blood Count 7.5 K/mm3 (4.4-11.0)
[2024-11-21 04:08] LABS: Differential Indicated SCAN CRITERIA MET
[2024-11-21 04:22] LABS: Anion Gap 10 (5-15); BUN 49 mg/dL (4-19); BUN/Creat Ratio 11.5 RATIO (10-20); Calcium,Total 9.5 mg/dL (7.6-11.0); Carbon Dioxide 24.4 mmol/L (21.0-32.0); Chloride 104 mmol/L (98-108); Creatinine, Serum 4.28 mg/dL (0.70-1.20); EST Glomerular Filtration Rate 11 (>60); Estimated Creatinine Clearance 14.94 ml/min (50-250); Glucose 116 mg/dL (70-99); Magnesium 1.9 mg/dL (1.5-2.2); Potassium 3.5 mmol/L (3.3-5.1); Sodium Level 139 mmol/L (133-145)
[2024-11-21 04:40] LABS: Phosphorus 4.2 mg/dL (2.7-4.5)
[2024-11-21 05:02] LABS: Anisocytosis 1+; Differential Comment SCANNED; Ovalocyte RARE
[2024-11-21 06:36] LABS: Bedside Glucose 113 mg/dL (74-106)
--- NOTE | 2024-11-21 07:29 | PCM.PN.SRG ---
Subjective Subjective Patient off levo, little less lethargic today Objective Data Objective Data Vital Signs: Vital Signs Temp Pulse Resp BP Pulse Ox O2 Del Method O2 Flow Rate 97.6 F L 83 12 116/48 L 95 Nasal Cannula 2 11/21/24 04:00 11/21/24 07:00 11/21/24 07:00 11/21/24 07:00 11/21/24 07:00 11/21/24 07:00 11/21/24 07:00 FiO2 30 11/18/24 21:00 Oxygen Flow Rate (L/min) 2 Oxygen Delivery Method Nasal Cannula Weight: 278 lb Body Mass Index (BMI) 62.5 Intake & Output: Intake and Output for Last 24 Hours 11/19/24 11/20/24 11/21/24 23:59 23:59 23:59 Intake Total 2266.15 / 2270.85 873.33 / 873.33 Output Total 190 / 190 37 / 47 60 / 60 Balance 2076.15 / 2080.85 836.33 / 826.33 -60 / -60 Lab / Micro Data 11/21/24 03:40 11/21/24 03:40 Labs: Laboratory Results - last 24 hr 11/20/24 01:54: Random Vancomycin 32.0 H 11/20/24 06:00: Anisocytosis 1+, Triglycerides 121 11/20/24 11:35: POC Glucose 65 L 11/20/24 12:36: POC Glucose 81 11/20/24 17:18: POC Glucose 76 11/20/24 21:29: POC Glucose 87 11/21/24 03:40: WBC 7.5, RBC 3.11 L, Hgb 7.8 L, Hct 25.7 L, MCV 82.6, MCH 25.1 L, MCHC 30.4 L, RDW Std Deviation 66.9 H, RDW Coeff of Faby 22.3 H, Plt Count 237, MPV 9.2, Immature Gran % (Auto) 0.900, Neut % (Auto) 71.0 H, Lymph % (Auto) 14.9 L, [place] % (Auto) 10.7 H, Eos % (Auto) 2.0, Baso % (Auto) 0.5, Absolute Neuts (auto) 5.3, Absolute Lymphs (auto) 1.11, Nucleated RBC % 0, Differential Comment SCANNED, Anisocytosis 1+, Ovalocytes RARE, Sodium 139, Potassium 3.5, Chloride 104, Carbon Dioxide 24.4, Anion Gap 10, BUN 49 H, Creatinine 4.28 H, Estim Creat Clear Calc 14.94 L, Est GFR (MDRD) Non-Af 11 L, BUN/Creatinine Ratio 11.5, Glucose 116 H, Calcium 9.5, Phosphorus 4.2, Magnesium 1.9 11/21/24 06:16: POC Glucose 113 H Micro: Microbiology 11/18/24 15:00 Blood Culture (Wb) - Pic Blood Culture - Preliminary No growth in 48 hours. 11/18/24 14:35 Blood Culture (Wb) - Anticubital Left Blood Culture - Preliminary No growth in 48 hours. 11/18/24 19:08 Mucosa - Nasopharyngeal Respiratory Panel (PCR) - Final 11/18/24 19:08 Mucosa - Nose Coronavirus COVID-19 PCR - Final 11/18/24 16:40 Urine Catheter - Catheter Streptococcus pneumoniae Antigen (M - Final 11/18/24 16:40 Urine Catheter - Koo Legionella Antigen - Final Physical Exam Const no apparent distress GI soft to palpation and non-tender GI Narrative: Wound VAC in place Inspection: Negative for abdominal distention Assessment & Plan Assessment/Plan (1) Open abdominal wall wound: (2) S/P exploratory laparotomy: PLAN: Plan Patient currently on TPN, okay with p.o. diet per surgery once cleared by speech Plan for M,W,F wound vac changes No surgical intervention planned at this time continue IV abx per ID We will continue to monitor this patient An Shah M.D. Pager: [phone] [facility] [address] [place] [address], Outpatient [place], [address] [place] [address] Office: [phone]
--- NOTE | 2024-11-21 07:44 | PCM.PN.INT ---
Assessment & Plan Assessment/Plan (1) Shock: PLAN: Plan RECOMMENDATIONS: 1. Continue to hold all sedating medications. 2. Continue TPN for nutritional support. 3. Continue local wound care per general surgery recommendations. 4. Maintain n.p.o. status pending improvement in mental status. 5. Continue antimicrobials per ID recommendations. 6. The patient is medically stable for transfer out of the intensive care unit. 7. Will sign off from a critical care perspective. Please call with any additional questions. IMPRESSIONS: 1. Undifferentiated shock While sepsis is certainly a possibility, I find it highly unlikely that the patient would have developed an underlying source of infection, given that she was being maintained on metronidazole, cefepime, vancomycin and micafungin at her long-term facility. I do believe that is far more likely, given her limited p.o. intake, that the patient is likely hypovolemic and was in need of volume resuscitation and nutritional support. The patient has ultimately been weaned from vasopressor support and remains hemodynamically stable. Plan to continue TPN for nutritional support. Antimicrobial management will be deferred to infectious diseases. 2. Encephalopathy Most likely metabolic in nature. The patient did have a mild degree of CO2 retention noted upon presentation to the emergency department, for which she was initially maintained on BiPAP therapy. I do suspect that the fact that she was receiving gabapentin, in the setting of acute kidney injury, is likely also contributing to her encephalopathy. CT head was unremarkable. TSH and ammonia were unremarkable. I would avoid any additional sedating medications. Unfortunately, the patient is refusing BiPAP therapy at night. 3. Acute kidney injury Most likely prerenal in etiology. Continue current supportive care with ongoing management per nephrology recommendations. 4. Recent abdominal surgery with postoperative infection Continue local wound care per general surgery recommendations. 5. History of paroxysmal atrial fibrillation/diabetes mellitus/GERD/morbid obesity Complicates care, management, recovery and prognosis. Continue supportive measures as noted above. This note was generated with [employer] dictation software. It may contain incorrect words, spelling, and punctuation that were not noted in checking the note before signing. Subjective Subjective The patient was seen and examined at the bedside this morning. Events from the last 24 hours have been reviewed. The patient is currently afebrile, hemodynamically stable and maintaining appropriate oxygen saturations on 2 L/min via nasal cannula. The patient was weaned off of Levophed completely yesterday. She continues to refuse BiPAP therapy. White blood cell count is normal. Hemoglobin was noted to be 7.8 g/dL. BUN is elevated at 49 with a creatinine of 4.28. The patient is receiving TPN for nutritional support. Objective Data Objective Data The patient's most recent lab work, culture data and imaging studies have all been personally reviewed. Infectious workup has been unrevealing to date. Vital Signs: Vital Signs Temp Pulse Resp BP Pulse Ox O2 Del Method O2 Flow Rate 97.6 F L 83 12 116/48 L 95 Nasal Cannula 2 11/21/24 04:00 11/21/24 07:00 11/21/24 07:00 11/21/24 07:00 11/21/24 07:00 11/21/24 07:00 11/21/24 07:00 FiO2 30 11/18/24 21:00 Oxygen Flow Rate (L/min) 2 Oxygen Delivery Method Nasal Cannula Weight: 278 lb Body Mass Index (BMI) 62.5 Intake & Output: Intake and Output for Last 24 Hours 11/19/24 11/20/24 11/21/24 23:59 23:59 23:59 Intake Total 2266.15 / 2270.85 873.33 / 873.33 Output Total 190 / 190 37 / 47 60 / 60 Balance 2076.15 / 2080.85 836.33 / 826.33 -60 / -60 Lab / Micro Data Attestation: I reviewed the patient's lab results. 11/21/24 03:40 11/21/24 03:40 Labs: Laboratory Results - last 24 hr 11/20/24 01:54: Random Vancomycin 32.0 H 11/20/24 06:00: Anisocytosis 1+, Triglycerides 121 11/20/24 11:35: POC Glucose 65 L 11/20/24 12:36: POC Glucose 81 11/20/24 17:18: POC Glucose 76 11/20/24 21:29: POC Glucose 87 11/21/24 03:40: WBC 7.5, RBC 3.11 L, Hgb 7.8 L, Hct 25.7 L, MCV 82.6, MCH 25.1 L, MCHC 30.4 L, RDW Std Deviation 66.9 H, RDW Coeff of Faby 22.3 H, Plt Count 237, MPV 9.2, Immature Gran % (Auto) 0.900, Neut % (Auto) 71.0 H, Lymph % (Auto) 14.9 L, Rich % (Auto) 10.7 H, Eos % (Auto) 2.0, Baso % (Auto) 0.5, Absolute Neuts (auto) 5.3, Absolute Lymphs (auto) 1.11, Nucleated RBC % 0, Differential Comment SCANNED, Anisocytosis 1+, Ovalocytes RARE, Sodium 139, Potassium 3.5, Chloride 104, Carbon Dioxide 24.4, Anion Gap 10, BUN 49 H, Creatinine 4.28 H, Estim Creat Clear Calc 14.94 L, Est GFR (MDRD) Non-Af 11 L, BUN/Creatinine Ratio 11.5, Glucose 116 H, Calcium 9.5, Phosphorus 4.2, Magnesium 1.9 11/21/24 06:16: POC Glucose 113 H Micro: Microbiology 11/18/24 15:00 Blood Culture (Wb) - Pic Blood Culture - Preliminary No growth in 48 hours. 11/18/24 14:35 Blood Culture (Wb) - Anticubital Left Blood Culture - Preliminary No growth in 48 hours. 11/18/24 19:08 Mucosa - Nasopharyngeal Respiratory Panel (PCR) - Final 11/18/24 19:08 Mucosa - Nose Coronavirus COVID-19 PCR - Final 11/18/24 16:40 Urine Catheter - Catheter Streptococcus pneumoniae Antigen (M - Final 11/18/24 16:40 Urine Catheter - Koo Legionella Antigen - Final ABG Data ABG results: ABG 11/19/24 09:42 Specimen Type ART Sample Site R Radial pH 7.33 L Bicarbonate Actual 28.9 H Total CO2 31 Base Excess 3 H O2 Saturation 95 O2 % 2.0 ABG pCO2 54.7 H ABG pO2 81 Angel Test Positive O2 Delivery Device Cannula Vent Mode Not entered Radiography Diagnostic Testing: Radiology Impression Renal Ultrasound 11/19/24 09:39 IMPRESSION: Unremarkable renal ultrasound. Small left renal calculus. Reading Location: [facility] Physical Exam Const alert and no apparent distress Constitutional Narrative: Remains confused and disoriented. Morbidly obese. General Appearance: cooperative HEENT normocephalic and head/scalp atraumatic Eyes PERRL, EOMs intact bilaterally and conjunctivae normal Neck supple General: trachea midline Chest inspection of chest normal Resp normal respiratory effort Auscultation: diminished lung sounds; Negative for rales, rhonchi or wheezes Cardio regular rate and regular rhythm GI soft to palpation GI Narrative: Postsurgical site with wound VAC in place Extremity General Extremity: edema; Negative for clubbing Skin General Skin Exam: venous stasis and dermatitis Neuro CN's II-XII intact bilaterally and no focal motor deficits Psych Mood & Affect: flat affect Charges/Coding Visit Charges Inpatient E&M: 78616 Subs Hosp L3
--- NOTE | 2024-11-21 08:08 | PCM.PN.HOSP ---
Reason for Visit Reason for Visit: Diagnoses Altered mental status, unspecified (11/18/24) Shock, unspecified (11/18/24) Unspecified open wound of abdominal wall, unspecified quadrant without penetration into peritoneal cavity, initial encounter (11/18/24) Infection following a procedure, other surgical site, initial encounter (11/18/24) Other specified postprocedural states (11/18/24) Objective Data Objective Data Vital Signs: Vital Signs Temp Pulse Resp BP Pulse Ox O2 Del Method O2 Flow Rate 97.6 F L 83 12 116/48 L 95 Nasal Cannula 2 11/21/24 04:00 11/21/24 07:00 11/21/24 07:00 11/21/24 07:00 11/21/24 07:00 11/21/24 07:00 11/21/24 07:00 FiO2 30 11/18/24 21:00 Oxygen Flow Rate (L/min) 2 Oxygen Delivery Method Nasal Cannula Weight: 278 lb Body Mass Index (BMI) 62.5 Intake & Output: Intake and Output for Last 24 Hours 11/19/24 11/20/24 11/21/24 23:59 23:59 23:59 Intake Total 2266.15 / 2270.85 873.33 / 873.33 0 / 0 Output Total 190 / 190 37 / 47 60 / 60 Balance 2076.15 / 2080.85 836.33 / 826.33 -60 / -60 Lab / Micro Data 11/21/24 03:40 11/21/24 03:40 Labs: Laboratory Results - last 24 hr 11/20/24 01:54: Random Vancomycin 32.0 H 11/20/24 06:00: Anisocytosis 1+, Triglycerides 121 11/20/24 11:35: POC Glucose 65 L 11/20/24 12:36: POC Glucose 81 11/20/24 17:18: POC Glucose 76 11/20/24 21:29: POC Glucose 87 11/21/24 03:40: WBC 7.5, RBC 3.11 L, Hgb 7.8 L, Hct 25.7 L, MCV 82.6, MCH 25.1 L, MCHC 30.4 L, RDW Std Deviation 66.9 H, RDW Coeff of Faby 22.3 H, Plt Count 237, MPV 9.2, Immature Gran % (Auto) 0.900, Neut % (Auto) 71.0 H, Lymph % (Auto) 14.9 L, [place] % (Auto) 10.7 H, Eos % (Auto) 2.0, Baso % (Auto) 0.5, Absolute Neuts (auto) 5.3, Absolute Lymphs (auto) 1.11, Nucleated RBC % 0, Differential Comment SCANNED, Anisocytosis 1+, Ovalocytes RARE, Sodium 139, Potassium 3.5, Chloride 104, Carbon Dioxide 24.4, Anion Gap 10, BUN 49 H, Creatinine 4.28 H, Estim Creat Clear Calc 14.94 L, Est GFR (MDRD) Non-Af 11 L, BUN/Creatinine Ratio 11.5, Glucose 116 H, Calcium 9.5, Phosphorus 4.2, Magnesium 1.9 11/21/24 06:16: POC Glucose 113 H Micro: Microbiology 11/18/24 15:00 Blood Culture (Wb) - Pic Blood Culture - Preliminary No growth in 48 hours. 11/18/24 14:35 Blood Culture (Wb) - Anticubital Left Blood Culture - Preliminary No growth in 48 hours. 11/18/24 19:08 Mucosa - Nasopharyngeal Respiratory Panel (PCR) - Final 11/18/24 19:08 Mucosa - Nose Coronavirus COVID-19 PCR - Final 11/18/24 16:40 Urine Catheter - Catheter Streptococcus pneumoniae Antigen (M - Final 11/18/24 16:40 Urine Catheter - Koo Legionella Antigen - Final Physical Exam Narrative Seen and examined Patient clinical status is worsening. Urine output is about 50 mL for last 3 days. She is still confused but awake and refusing for BiPAP. She is wheezing and short of breath Off Levophed drip. On TPN Physical exam General: Lethargic, disoriented. Awake. Mumbling inattention HEENT: Atraumatic, PERRLA, EOMI, Normocephalic Oral: Oral mucosa dry Neck: Supple, No JVD, Negative Carotid Bruits Chest wall/Lungs: Air entry diminished more on the right lung base. Mild coarse crepitation and wheezing, gross Cardiovascular: Sinus rhythm Normal S1, Normal S2, No M/G/R Abdomen: Bowel Sounds/, multiple surgical scar. Wound VAC present. No specific tenderness appreciated. : Koo catheter present. Anuria. no renal angle tenderness. No suprapubic tenderness. Extremities: 2-3+ edema, Capillary Refill Less than 3 Seconds Skin: No rashes, No breakdown Musculoskeletal: No Tenderness to Palpation of Joints or Extremities Neurological: Lethargic. Awake. Detailed neuroexam unobtainable Psych/Mental Status: Lethargic Assessment & Plan Assessment/Plan (1) Altered mental status: PLAN: Plan 68-year-old female was transferred from SNF for reported slurred speech. Patient baseline status multiple comorbidities complicates the present care and expect difficult and delay recovery . Patient had some incomprehensible words. 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 Hold sedating medications. ABG 7.33/54/81 on 2 L of oxygen. First ABG 7.32/58.4/91 on 4 L of oxygen. Bicarb and ABG 31 but BMP shows 24 with anion gap 10. BMP bicarb is not reliable. 11/20: No significant improvement. Planning to start TPN. 11/21: Awake but lethargic not making meaningful sentences. Refusing BiPAP though # Undifferentiated shock: Exact etiology unclear but hypovolemia and sepsis or possibility. Patient already on multiple antibiotics; vancomycin, cefepime, metronidazole and micafungin from [facility] therefore sepsis possibility is less likely. ID was consulted. Advised to continue same antibiotic. Patient does not have abdominal tenderness. Wound VAC there. No fever. 11/20: Is still on IV antibiotic vancomycin, meropenem, metronidazole and micafungin. Liver and ID to discontinue metronidazole 11/21: Off Levophed drip. Acute kidney injury: Admission BUN/creatinine 37/2.74 -Possibly due to lisinopril and naproxen in combination with the vancomycin necessary for her infection. BUN/creatinine 37/2.9. -Hold lisinopril and naproxen -Continue vancomycin,, renally adjusted. Pharmacy consulted for that -Hold gabapentin -Patient did receive fluids in the ED - Monitor I's and O's and daily weights 11/20: Patient had anuria over last 24 hours less than 100 mL. Creatinine also jumped from 2.7-3.66. Supply Service Worker consulted with 11/21: Anuria continues. Bilateral lower extremity edema and coarse crepitations in the lung, fluid overload. Creatinine went up 4.28. BUN 49. Estimated GFR 11 mL/min. Discussed with the university counselor. Discussed with the patient's sister who is in [place]. Clinical condition explained. She will make decision on behalf of the patient but the patient did not want dialysis # Mild hypoxia: Chest x-ray and lung zaragoza of CT abdomen initially reviewed. Shows right lower lobe opacity, consolidation with underlying effusion and atelectasis. Possibility of aspiration as there was drooling fluid from the patient's mouth and patient is lethargic and right lower lobe opacity. Cefepime changed to meropenem. 11/21: Does not have good ventilatory drive, shallow breathing and short of breath. # Paroxysmal atrial fibrillation - Patient with new onset A-fib during recent admission -Initially was started on Coreg but this was held due to an 18-second pause but was resumed on discharge -Not on Eliquis due to her multiple surgeries with it being on hold since right before the ex lap due to bleeding changes -In the ED EKG with rate of 73 and normal sinus rhythm with PAC #Type 2 diabetes mellitus: Glucose 123 in BMP. -Glucose checks and sliding scale insulin - Hold long-acting insulin until improvement in mental status and patient consistently tolerating p.o. /24: Glucose on the lower side 90, morning time. # Elevated troponin -Troponin of 77, 71 and 72, flat indeterminate. Patient does not have chest pain or acute shortness of breath. Probably due to demand ischemia. - #GERD -Continue PPI #Morbid obesity -BMI documented as 44.1 kg/m? at time of admission -Complicates treatment, prognosis, outcomes -Recommend weight loss and lifestyle changes # Recent abdominal surgeries with postoperative infection -Recent prolonged hospitalization -Continue antibiotics and consult infectious disease while patient was inpatient -Per ED physician surgery contacted in the ED for evaluation and primary recommendation was to continue hold anticoagulation due to hematoma seen on abdominal CT CT abdomen individually reviewed and showsS/p bowel resection with ovoid mesenteric hematoma and RLQ with mild surrounding mesenteric edema. No significant clear pneumoperitoneum or free air. No obstruction. Small right pleural effusion with right lower lobe consolidation and opacification of right lower lobe bronchus #Hypertension currently patient on vasopressor Levophed. BP was low on arrival. Hold antihypertensive medication #DVT ppx: SCDs DNR CCA Total time of the visit including total time spent in counseling or coordination of care, (more than 50% of the total time, spent in obtaining medical information from nurses and other ancillary care providers ,explaining to the patient about labs, imaging, diagnosis and management of active complex medical conditions), calling the patient's sister Mrs. Zuñiga and explained the deteriorating clinical condition including anuria and preferably requirement of dialysis, review of labs and imaging is 45 minutes. Charges/Coding Visit Charges Inpatient E&M: 73523 Subs Hosp L3
--- NOTE | 2024-11-21 08:20 | WOUNDNOTE ---
wound photo: abdomen
--- NOTE | 2024-11-21 09:43 | CASEMGMT ---
Addendum entered by Ally Fernandez 11/21/24 10:22: KELLY received fax confirmation of successful submission of referral documentation. ARELIS Muhammad Original Note: Social Work- SW spoke with bedside nurse regarding physician conversation with pt/pt sister/bedside nurse about goals of care and hospice. Bedside nurse reports that [facility] is open to referral for hospice. SW followed up with [facility] to confirm and discuss hospice referral process. SW offered support and provided education. SW completed hospice referral; documents faxed. Bedside nurse and physician updated. [facility] remains available to follow. ARELIS Muhammad
[2024-11-21] MEDS: Pantoprazole Sodium 40 MG in 0.9% Normal Saline (100mL MB+) 100 ML 330 MG IV (09:49)
[2024-11-21] MEDS: Meropenem 500 MG in 0.9% Normal Saline (50mL MB+) 50 ML 100 MG IV ×2 (09:49→21:13)
--- NOTE | 2024-11-21 10:23 | PCM.PN.REN ---
Subjective Subjective Clinically about the same. Drowsy, not very responsive. Objective Data Objective Data Vital Signs: Vital Signs Temp Pulse Resp BP Pulse Ox O2 Del Method O2 Flow Rate 97.6 F L 81 18 110/51 L 97 Nasal Cannula 2 11/21/24 04:00 11/21/24 08:00 11/21/24 08:00 11/21/24 08:00 11/21/24 08:00 11/21/24 08:00 11/21/24 08:00 FiO2 30 11/18/24 21:00 Oxygen Flow Rate (L/min) 2 Oxygen Delivery Method Nasal Cannula Weight: 126.099 kg Body Mass Index (BMI) 62.5 Intake & Output: Intake and Output for Last 24 Hours 11/19/24 11/20/24 11/21/24 23:59 23:59 23:59 Intake Total 2266.15 / 2270.85 873.33 / 873.33 110 / 110 Output Total 190 / 190 37 / 47 60 / 60 Balance 2076.15 / 2080.85 836.33 / 826.33 50 / 50 Lab / Micro Data 11/21/24 03:40 11/21/24 03:40 Labs: Laboratory Results - last 24 hr 11/20/24 01:54: Random Vancomycin 32.0 H 11/20/24 06:00: Triglycerides 121 11/20/24 11:35: POC Glucose 65 L 11/20/24 12:36: POC Glucose 81 11/20/24 17:18: POC Glucose 76 11/20/24 21:29: POC Glucose 87 11/21/24 03:40: WBC 7.5, RBC 3.11 L, Hgb 7.8 L, Hct 25.7 L, MCV 82.6, MCH 25.1 L, MCHC 30.4 L, RDW Std Deviation 66.9 H, RDW Coeff of Faby 22.3 H, Plt Count 237, MPV 9.2, Immature Gran % (Auto) 0.900, Neut % (Auto) 71.0 H, Lymph % (Auto) 14.9 L, Allen % (Auto) 10.7 H, Eos % (Auto) 2.0, Baso % (Auto) 0.5, Absolute Neuts (auto) 5.3, Absolute Lymphs (auto) 1.11, Nucleated RBC % 0, Differential Comment SCANNED, Anisocytosis 1+, Ovalocytes RARE, Sodium 139, Potassium 3.5, Chloride 104, Carbon Dioxide 24.4, Anion Gap 10, BUN 49 H, Creatinine 4.28 H, Estim Creat Clear Calc 14.94 L, Est GFR (MDRD) Non-Af 11 L, BUN/Creatinine Ratio 11.5, Glucose 116 H, Calcium 9.5, Phosphorus 4.2, Magnesium 1.9 11/21/24 06:16: POC Glucose 113 H Micro: Microbiology 11/18/24 15:00 Blood Culture (Wb) - Pic Blood Culture - Preliminary No growth in 48 hours. 11/18/24 14:35 Blood Culture (Wb) - Anticubital Left Blood Culture - Preliminary No growth in 48 hours. 11/18/24 19:08 Mucosa - Nasopharyngeal Respiratory Panel (PCR) - Final 11/18/24 19:08 Mucosa - Nose Coronavirus COVID-19 PCR - Final 11/18/24 16:40 Urine Catheter - Catheter Streptococcus pneumoniae Antigen (M - Final 11/18/24 16:40 Urine Catheter - Koo Legionella Antigen - Final Physical Exam Narrative Awake, no apparent distress. Drowsy and confused S1, S2, RRR Lungs sound clear anteriorly and posteriorly. No rales or rhonchi. On O2 nasal cannula Abdomen soft No significant pitting edema bilateral lower legs thighs or arms Indwelling Koo with scant clear yellow urine in tubing Assessment & Plan Assessment/Plan (1) JEANNE (acute kidney injury): (2) Altered mental status: PLAN: Plan This is a 68-year-old female who was brought to the emergency room on 11/18 from [facility] for evaluation of altered mental status. Patient has past medical history significant for diabetes mellitus type 2, A-fib, GERD, hypertension. Patient recently had lengthy hospitalization in which she was admitted end of September 2024 and underwent ventral hernia repair with mesh. Patient then had postoperative complications including hypoxia and hypoglycemia also developed infection to her wound. Patient went back to OR for ex lap and removal of mesh and small bowel resection anastomoses. Patient was discharged to [facility] on 11/15 on IV antibiotics metronidazole, Vanco, cefepime, micafungin. Nephrology consulted in view of elevated creatinine. Patient has normal baseline creatinine. JEANNE likely secondary to sepsis with concurrent use of SHARMIN inhibitor and NSAID. Overnight, normal urine output. Predictably creatinine is worse. Respiratory distress present. I called and spoke to the sister and niece listed on contact list. They are the immediate family. Sister is in [place], could not make it back. Niece is local. We discussed about potential dialysis in view of renal failure. They thought that the patient would not have wanted dialysis. Hold off on renal replacement therapy for now. Discussed with hospitalist. Likely hospice consult.
[2024-11-21] MEDS: Insulin Lispro 100 UNIT/ML INSULN.PEN SC (11:59)
[2024-11-21 12:19] LABS: Bedside Glucose 162 mg/dL (74-106)
--- NOTE | 2024-11-21 12:28 | PCM.PN.ID ---
Physical Exam Narrative No fever. Remains off levophed, no events overnight Const Constitutional Narrative: unintelligible speech Resp normal air movement and clear to auscultation bilaterally Cardio regular rate and regular rhythm GI soft to palpation, non-tender and non-distended Skin no rashes or lesions noted ID ID: Route of nutrition/ use of supplements: [] Nutritional Intake: [] IV Site: [] Koo Catheter: [] Assessment & Plan Assessment/Plan (1) Shock: PLAN: Did have JEANNE, elevated lactate, and possible pneumonia seen on imaging on admit. Will cont vanc, anderson, and micafungin. Worsened JEANNE, hospice consulted per nursing. Will follow (2) Open abdominal wall wound: (3) Postoperative wound infection:
--- NOTE | 2024-11-21 13:48 | CASEMGMT ---
Social Work- SW called hospice to follow up on referral. Teagan at hospice reports that electronic consents were sent via text to Ja. Teagan reports as soon as those are received an assessment is able to be completed. KELLY remains available to follow. ARELIS Muhammad
--- NOTE | 2024-11-21 15:06 | PCM.HOSP.N ---
Hospitalist Note After discussion with patient's sister who is next of kin patient is converted to DNR CC as per the patient's wishes if she would have to make decision. Her sister said she did not want dialysis. Hospice consult was called and going to see between 5:30 to 6 PM. CODE STATUS changed to DNR CC and DNR CC hospice papers signed. After seen by hospice nurse patient can be transferred to [facility] floor. No TPN.
[2024-11-21] MEDS: Dextrose 5%-Water (1000mL Bag) 1,000 ML 50 ML IV (15:58)
[2024-11-21] MEDS: Micafungin Sodium 100 MG in Dextrose 5%-Water (100mL Bag) 100 ML IV (21:13)
[2024-11-21 21:46] LABS: Bedside Glucose 162 mg/dL (74-106)
--- NOTE | 2024-11-21 22:15 | NURSING ---
Addendum entered by Jennifer Bhandari 11/22/24 03:33: Transport has not arrived, called [facility] to see if they had any updates. clinical program coordinator just called and said they were delayed and they will be arriving around 6 am. Original Note: [facility] called and said they should be here between 11 pm and midnight to pick patient up.
[2024-11-22 03:00] VITALS: BP 105/49; PULSE 74; RESP 15; TEMP 36.2; O2SAT 98
[2024-11-22 05:55] LABS: Bedside Glucose 140 mg/dL (74-106)
--- NOTE | 2024-11-22 06:20 | NURSING ---
Patient transported to inpatient hospice unit. Upper dentures sent with patient.
--- NOTE | 2024-11-22 07:16 | PCM.DC.SUM ---
Providers Date of Admission: 11/18/24 Date of Discharge: 11/22/24 Primary Care Physician: Dr. Dennis Pelayo, Consultations 11/18/24 18:53 Consult: Infectious Disease Routine Consulting Provider: Abel Don Reason for Consult: recent d/c to SNF on mult abx, now back again, also ?new RLL infiltrate EMERGENT Consult: No MD Notified: Yes Date Notified: 11/18/24 Time Notified: 18:44 Method of Notification: Text 11/18/24 19:13 Consult: Onc/Wound/linux system administrator Routine Comment: Reason for Consult:: s/p abdominal surgery 11/19/24 00:10 Consult: Outside Maintenance Worker / Pulmonary Medicine Routine Consulting Provider: Intensivists/Pulmonary Med Reason for Consult: Vasopressor Management EMERGENT Consult: No MD Notified: Yes Date Notified: 11/19/24 Time Notified: 06:50 Method of Notification: Text 11/20/24 08:18 Consult: Nephrology Routine Consulting Provider: Klarissa Chao Reason for Consult: JEANNE on CKD, s/o small bowel resection, on levophed EMERGENT Consult: No MD Notified: Yes Date Notified: 11/20/24 Time Notified: 08:18 Method of Notification: Text 11/21/24 09:02 Consult: Hospice / Palliative Care Routine Consulting Provider: [facility] Reason for Consult: poor porgnosis, Multiple organ failures, septic shock EMERGENT Consult: No MD Notified: Yes Date Notified: 11/21/24 Time Notified: 09:14 Method of Notification: Answering Service Reason For Visit: ALTERED MENTAL STATUS, RENAL FAILURE, LACTIC Diagnosis Discharge Diagnosis (1) Shock: Status: Acute Code(s): R57.9 - Shock, unspecified (2) Open abdominal wall wound: Status: Acute Code(s): S31.109A - Unspecified open wound of abdominal wall, unspecified quadrant without penetration into peritoneal cavity, initial encounter (3) Postoperative wound infection: Status: Acute Code(s): T81.49XA - Infection following a procedure, other surgical site, initial encounter Plan 68-year-old female was transferred from SNF for reported slurred speech. Patient baseline status multiple comorbidities complicates the present care and expect difficult and delay recovery . Patient had some incomprehensible words. 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 Hold sedating medications. ABG 7.33/54/81 on 2 L of oxygen. First ABG 7.32/58. on 4 L of oxygen. Bicarb and ABG 31 but BMP shows 24 with anion gap 10. BMP bicarb is not reliable. 11/20: No significant improvement. Planning to start TPN. 11/21: Awake but lethargic not making meaningful sentences. Refusing BiPAP though # Undifferentiated shock: Exact etiology unclear but hypovolemia and sepsis or possibility. Patient already on multiple antibiotics; vancomycin, cefepime, metronidazole and micafungin from SNF therefore sepsis possibility is less likely. ID was consulted. Advised to continue same antibiotic. Patient does not have abdominal tenderness. Wound VAC there. No fever. 11/20: Is still on IV antibiotic vancomycin, meropenem, metronidazole and micafungin. Liver and ID to discontinue metronidazole 11/21: Off Levophed drip. Acute kidney injury: Admission BUN/creatinine 37/2.74 -Possibly due to lisinopril and naproxen in combination with the vancomycin necessary for her infection. BUN/creatinine 37/2.9. -Hold lisinopril and naproxen -Continue vancomycin,, renally adjusted. Pharmacy consulted for that -Hold gabapentin -Patient did receive fluids in the ED - Monitor I's and O's and daily weights 11/20: Patient had anuria over last 24 hours less than 100 mL. Creatinine also jumped from 2.7-3.66. Prepress Proofer consulted with 11/21: Anuria continues. Bilateral lower extremity edema and coarse crepitations in the lung, fluid overload. Creatinine went up 4.28. BUN 49. Estimated GFR 11 mL/min. Discussed with the capital project engineer. Discussed with the patient's sister who is in [place]. Clinical condition explained. She will make decision on behalf of the patient but the patient did not want dialysis 11/22: Hospice nurse came and evaluated the patient and talk to the patient's relative her sister. Finally she was accepted in inpatient hospice and transferred to [facility] at about 6 AM on 11/22/2024. Prior to that, her CODE STATUS was changed to DNR CC hospice care on 11/21/2024. # Mild hypoxia: Chest x-ray and lung zaragoza of CT abdomen initially reviewed. Shows right lower lobe opacity, consolidation with underlying effusion and atelectasis. Possibility of aspiration as there was drooling fluid from the patient's mouth and patient is lethargic and right lower lobe opacity. Cefepime changed to meropenem. 11/21: Does not have good ventilatory drive, shallow breathing and short of breath. # Paroxysmal atrial fibrillation - Patient with new onset A-fib during recent admission -Initially was started on Coreg but this was held due to an 18-second pause but was resumed on discharge -Not on Eliquis due to her multiple surgeries with it being on hold since right before the ex lap due to bleeding changes -In the ED EKG with rate of 73 and normal sinus rhythm with PAC #Type 2 diabetes mellitus: Glucose 123 in BMP. -Glucose checks and sliding scale insulin - Hold long-acting insulin until improvement in mental status and patient consistently tolerating p.o. /24: Glucose on the lower side 90, morning time. # Elevated troponin -Troponin of 77, 71 and 72, flat indeterminate. Patient does not have chest pain or acute shortness of breath. Probably due to demand ischemia. - #GERD -Continue PPI #Morbid obesity -BMI documented as 44.1 kg/m? at time of admission -Complicates treatment, prognosis, outcomes -Recommend weight loss and lifestyle changes # Recent abdominal surgeries with postoperative infection -Recent prolonged hospitalization -Continue antibiotics and consult infectious disease while patient was inpatient -Per ED physician surgery contacted in the ED for evaluation and primary recommendation was to continue hold anticoagulation due to hematoma seen on abdominal CT CT abdomen individually reviewed and showsS/p bowel resection with ovoid mesenteric hematoma and RLQ with mild surrounding mesenteric edema. No significant clear pneumoperitoneum or free air. No obstruction. Small right pleural effusion with right lower lobe consolidation and opacification of right lower lobe bronchus #Hypertension currently patient on vasopressor Levophed. BP was low on arrival. Hold antihypertensive medication #DVT ppx: SCDs DNR CCA Patient was discharged to inpatient hospice unit. Medications at Discharge Home Medications amlodipine 10 mg tablet (Norvasc) 10 mg PO QHS HTN 10/04/16 apixaban 5 mg tablet (Eliquis) 5 mg PO BID blood thinner 10/04/16 Held on 10/24/24. Instructions: Resume on 10/26/24. atorvastatin 80 mg tablet 80 mg PO QHS Cholesterol 10/25/16 lisinopril 40 mg tablet 40 mg PO DAILY HTN 10/25/16 pioglitazone 15 mg tablet 15 mg PO DAILY DM #30 tabs 10/09/22 gabapentin 600 mg tablet 600 mg PO BID Nerve Pain 01/01/24 multivitamin with folic acid 400 mcg tablet (Daily-Levon (with folic acid)) 1 tab PO DAILY Supplement 05/14/24 carvedilol 25 mg tablet 25 mg PO BID BP #60 tabs 05/19/24 dapagliflozin propanediol 10 mg tablet (Farxiga) 10 mg PO DAILY diabetes #30 tabs 06/27/24 insulin glargine 100 unit/mL (3 mL) subcutaneous pen (Lantus Solostar U-100 Insulin) 15 unit (0.15 mL) subcut BIDCM DM #5 pens 06/27/24 sennosides 8.6 mg-docusate sodium 50 mg tablet (Stimulant Laxative Plus) 1 tab PO BID #60 tabs 06/27/24 benzonatate 200 mg capsule 200 mg PO TID PRN cough 10/23/24 cholecalciferol (vitamin D3) 50 mcg (2,000 unit) capsule 50 mcg PO DAILY 10/23/24 dulaglutide 4.5 mg/0.5 mL subcutaneous pen injector (Trulicity) 4.5 mg subcut QWEEK 10/23/24 glipizide 10 mg tablet 10 mg PO BID 10/23/24 metformin 500 mg tablet 500 mg PO BID 10/23/24 naproxen 500 mg tablet 500 mg PO BID 10/23/24 oxycodone 5 mg capsule 5 mg PO Q6H PRN pain 3 days #10 caps 10/24/24 cefepime 2 gram/50 mL in dextrose 5 % intravenous piggyback 2 g IV Q8H 10 days 11/12/24 metronidazole 500 mg/100 mL in sodium chlor(iso) intravenous piggyback 500 mg IV Q8 10 days #3,000 mL 11/12/24 micafungin 100 mg intravenous solution 100 mg IV Q24 10 days #10 ea 11/12/24 vancomycin 1 gram/200 mL in dextrose 5 % intravenous piggyback 1,000 mg IV Q24H 10 days #2,000 mL 11/12/24 folic acid 400 mcg tablet 400 mcg PO DAILY 11/18/24 nystatin 100,000 unit/gram topical ointment 1 applic topical BID GROIN REDNESS 11/18/24 pantoprazole 20 mg tablet,delayed release 20 mg PO DAILY 11/18/24 Physical Exam Narrative Patient was discharged to inpatient hospice unit at 6 AM before the start of my shift. Please see progress note of yesterday for the exam findings. Weight / BMI Weight Weight: 278 lb Body Mass Index (BMI) 62.5 ABG / Lab / Microbiology Data 11/21/24 03:40 11/21/24 03:40 Laboratory: Laboratory Results - last 24 hr 11/21/24 11:58: POC Glucose 162 H 11/21/24 21:28: POC Glucose 162 H 11/22/24 05:38: POC Glucose 140 H Microbiology: Microbiology 11/19/24 18:25 Urine Catheter - Koo Urine Culture - Preliminary Culture exhibits no growth. 11/18/24 15:00 Blood Culture (Wb) - Pic Blood Culture - Preliminary No growth in 48 hours. 11/18/24 14:35 Blood Culture (Wb) - Anticubital Left Blood Culture - Preliminary No growth in 48 hours. 11/18/24 19:08 Mucosa - Nasopharyngeal Respiratory Panel (PCR) - Final 11/18/24 19:08 Mucosa - Nose Coronavirus COVID-19 PCR - Final 11/18/24 16:40 Urine Catheter - Catheter Streptococcus pneumoniae Antigen (M - Final 11/18/24 16:40 Urine Catheter - Koo Legionella Antigen - Final D/C Instructions DC O2, CPAP, BIPAP Needs Home O2 Discharge instructions: Yes Type of respiratory needs?: Oxygen Oxygen frequency: Continuous Continuous oxygen liters per minute: 2 DC home with Oxygen: Yes Home O2 MD Review: I have reviewed the oxygen testing, and the patient qualifies for home oxygen equipment and portability. The patient is mobile in the home and the community. Meaningful Use Info Meaningful Use Meaningful Use Diagnoses (Choose all that apply): None applicable Ischemic Stroke Statin Dosing Therapy Reference: STATIN DOSE THERAPY REFERENCE: * Patients > 75 years receive moderate or high dose statin therapy. * Patients 75 years or YOUNGER should receive HIGH intensity statin dose unless contraindicated. You will be required to document reason for non-treatment if statin daily dose does not meet guidelines. HIGH DOSE STATIN THERAPY DAILY Atorvastatin > than or = to 40 mg Rosuvastatin > than or = to 20 mg Amlodipine + Atorvastatin > than or = to 2.5/40 mg Ezetimibe + Simvastatin 10/80 mg Simvastatin 80mg Discharge Plan Admission Admit Date/Time: 11/18/24 17:56 Attending Provider: Mark Villalta Primary Care Provider: Dennis Pelayo Consulting Providers: Virginia Guerrero; Bobo Bush; Deneen Gaines; Yudelka Tobar; Sarah Thomas; Lynn Pelayo PRACTICE BILLING ASSOCIATE; Deloris Duong; Abel Don; Klarissa Chao Discharge Orders/Prescriptions Prescriptions: No Action gabapentin 600 mg tablet 600 mg PO BID amlodipine [Norvasc] 10 MG tablet 10 mg PO QHS Eliquis 5 MG tablet 5 mg PO BID atorvastatin 80 MG tablet 80 mg PO QHS 0RF lisinopril 40 MG tablet 40 mg PO DAILY 0RF sennosides-docusate sodium [Stimulant Laxative Plus] 8.6-50 mg Tablet 1 tab PO BID Qty: 60 0RF dapagliflozin propanediol [Farxiga] 10 mg tablet 10 mg PO DAILY Qty: 30 0RF insulin glargine [Lantus Solostar U-100 Insulin] 100 unit/mL (3 mL) insulin pen 15 unit subcut BIDCM Qty: 5 0RF multivitamin with folic acid [Daily-Levon (with folic acid)] 400 mcg tablet 1 tab PO DAILY carvedilol 25 mg tablet 25 mg PO BID Qty: 60 0RF Rx Instructions: must administer with a meal/food naproxen 500 mg tablet 500 mg PO BID benzonatate 200 mg capsule 200 mg PO TID PRN (Reason: cough) metformin 500 mg tablet 500 mg PO BID glipizide 10 mg tablet 10 mg PO BID cholecalciferol (vitamin D3) 50 mcg (2,000 unit) capsule 50 mcg PO DAILY Trulicity 4.5 mg/0.5 mL pen injector 4.5 mg SUBCUT QWEEK Patient Comments: UNSURE WHICH DAY OF WEEK. oxycodone 5 mg capsule 5 mg PO Q6H PRN (Reason: pain) 3 Days Qty: 10 0RF cefepime in dextrose 5 % 2 gram/50 mL piggyback 2 g IV Q8H 10 Days Rx Instructions: stop date 11/22/24. Dx: intra-abd abscess. Weekly bmp, cbc, vanc trough, and LFT. Fax to [phone]. metronidazole in NaCl (iso-os) 500 mg/100 mL Piggyback 500 mg IV Q8 10 Days Qty: 3000 0RF Rx Instructions: stop date 11/22/24. Dx: intra-abd abscess. Weekly bmp, cbc, vanc trough, and LFT. Fax to [phone]. vancomycin in dextrose 5 % 1 gram/200 mL Piggyback 1,000 mg IV Q24H 10 Days Qty: 2000 0RF Rx Instructions: stop date 11/22/24. Dx: intra-abd abscess. Weekly bmp, cbc, vanc trough, and LFT. Fax to [phone]. micafungin 100 mg Recon Soln 100 mg IV Q24 10 Days Qty: 10 0RF Rx Instructions: stop date 11/22/24. Dx: intra-abd abscess. Weekly bmp, cbc, vanc trough, and LFT. Fax to [phone]. pantoprazole 20 mg tablet,delayed release (DR/EC) 20 mg PO DAILY nystatin 100,000 unit/gram ointment 1 applic topical BID folic acid 400 mcg tablet 400 mcg PO DAILY pioglitazone 15 mg tablet 15 mg PO DAILY Qty: 30 3RF Referrals / Follow Up: Dennis Pelayo DO [Primary Care Provider] - Disposition Disposition (needs filled in before D/C Order can be placed): Hospice in Medical Facility Charges/Coding Visit Charges Inpatient E&M: 45263 Disch Hosp >30min
--- NOTE | 2024-11-22 08:08 | CASEMGMT ---
Social Work left for pt Direction Senior Application Software Engineer Kera Hagan notifying of pt dc to Inpatient hospice Unit. ARELIS Gilman
== END 2024-11-22 06:10 | disposition hospice, inpatient (51) | DRG 682 ==
LOC: ED 15:17 → ICU 17:59
PROVIDERS: Internal Medicine; Internal Medicine Critical Care Medicine; Admitting Provider Internal Medicine; Emergency Provider Emergency Medicine; PCP Family Medicine; Visit Provider Internal Medicine
DX: N17.9 Acute kidney failure, unspecified (principal); G93.41 Metabolic encephalopathy; R57.9 Shock, unspecified; I24.89 Other forms of acute ischemic heart disease; E87.29 Other acidosis; Z68.41 Body mass index [BMI] 40.0-44.9, adult; T81.49XA Infection following a procedure, other surgical site, initial encounter; S31.109A Unspecified open wound of abdominal wall, unspecified quadrant without penetration into peritoneal cavity, initial encounter; I48.0 Paroxysmal atrial fibrillation; E86.1 Hypovolemia; E11.40 Type 2 diabetes mellitus with diabetic neuropathy, unspecified; I12.9 Hypertensive chronic kidney disease with stage 1 through stage 4 chronic kidney disease, or unspecified chronic kidney disease; N18.9 Chronic kidney disease, unspecified; E66.01 Morbid (severe) obesity due to excess calories; K21.9 Gastro-esophageal reflux disease without esophagitis; E78.5 Hyperlipidemia, unspecified; E11.22 Type 2 diabetes mellitus with diabetic chronic kidney disease; Z79.4 Long term (current) use of insulin; R34 Anuria and oliguria; Z66 Do not resuscitate; Z87.891 Personal history of nicotine dependence; Z79.84 Long term (current) use of oral hypoglycemic drugs; Z90.710 Acquired absence of both cervix and uterus; R41.82 Altered mental status, unspecified; R09.02 Hypoxemia; Y83.9 Surgical procedure, unspecified as the cause of abnormal reaction of the patient, or of later complication, without mention of misadventure at the time of the procedure; Z86.73 Personal history of transient ischemic attack (TIA), and cerebral infarction without residual deficits; Z79.899 Other long term (current) drug therapy; Z79.01 Long term (current) use of anticoagulants; Z79.85 Long-term (current) use of injectable non-insulin antidiabetic drugs; Z90.49 Acquired absence of other specified parts of digestive tract; R06.89 Other abnormalities of breathing; R79.89 Other specified abnormal findings of blood chemistry; R06.03 Acute respiratory distress; T50.995A Adverse effect of other drugs, medicaments and biological substances, initial encounter
CPT/HCPCS: 36592; 36600; 51702; 70450; 71045; 74176; 76770; 80048; 80076; 80202; 81001; 82140; 82550; 82803; 82962; 83605; 83690; 83735; 83880; 84100; 84443; 84478; 84484; 85025; 85610; 85730; 87040; 87086; 87449; 87633; 87635; 93005; 94002; 94762; 97162; 97166; 97802; 97803; 99285; J2185; A4216